=== PATIENT | male | born 1945 | race African-American/Black ===

== ENCOUNTER 2017-03-03 02:18 | Inpatient (IN) | payer MEDICARE, BC ==
--- NOTE | 2017-03-03 03:08 | CT ---
EXAM: CT Head Without Intravenous Contrast CLINICAL HISTORY: Reason: weakness TECHNIQUE: Axial computed tomography images of the head/brain without intravenous contrast. CTDI is 60.30 mGy and DLP is 1108.40 mGy-cm This CT exam was performed using one or more of the following dose reduction techniques: automated exposure control, adjustment of the mA and/or kV according to patient size, and/or use of iterative reconstruction technique. COMPARISON: No relevant prior studies available. FINDINGS: Brain: There is mild generalized atrophy along with periventricular white matter hypodensity most commonly seen on a chronic small vessel ischemic basis. Small chronic appearing lacunar changes in the external capsules. There is no identifiable acute or recent territorial infarct. No edema, midline shift, mass effect or intracranial hemorrhage. Ventricles: Unremarkable. No ventriculomegaly. 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 Smooth bony defect of the right lamina papyracea consistent with remote injury. No acute fracture.. Vasculature: Intracranial atherosclerosis is present. Sinuses: Diffuse griffin sinusitis, sparing the left sphenoid sinus. There are varying degrees of opacification throughout, including bilateral air-fluid levels, and with regions of higher density seen within the bilateral maxillary sinuses, perhaps on the basis of chronic inspissated secretions. Mastoid air cells: Unremarkable as visualized. No mastoid effusion. IMPRESSION: 1. No definite acute infarct is seen at this time. Note that early infarct may initially be inapparent by CT, and short-term follow-up imaging could be considered if concern or symptoms persist. 2. Diffuse griffin sinusitis.
--- NOTE | 2017-03-03 03:09 | ED ---
Neuro HPI - General Chief Complaint: Weakness Stated Complaint: weakness Time Seen by Provider: 03/03/17 02:31 Source: patient Mode of arrival: ambulatory Limitations: no limitations - History of Present Illness Is the patient presenting with stroke symptoms?: Yes Last Known Well Date: 03/02/17 Last Known Well Time: 13:00 -: hour(s) Initial Comments: This patient is a 71-year-old man presenting to the hospital to be evaluated for difficulty walking, and some right-sided weakness. The patient states he was in his usual state of health. He had been having coffee with friends at [facility] [employer] until 11 AM then went home. He states that about 1:00PM he tried to get out of his chair and noticed that he was not able to stand well. He was having weakness of the right leg and right arm. The patient then called his daughter and they felt he should be seen in the emergency department. Location: right arm, right leg History of same: No Place: home Severity: mild Quality: weak Improves With: none Worsens With: none On Anticoagulants: No Context: sudden onset Treatments Prior to Arrival: none - Related Data Home Medications: Home Medications Medication Instructions Recorded Confirmed Dexamethasone [Hexadrol] 0.5 mg PO DAILY 07/20/15 08/28/16 Metoprolol Succinate [Toprol XL] 50 mg PO DAILY 07/20/15 08/28/16 Mycophenolate Mofetil [Cellcept] 1,000 mg PO BID 07/20/15 08/28/16 Pravastatin Sodium [Pravachol] 20 mg PO HS 07/20/15 08/28/16 Tacrolimus [Prograf] 0.5 mg PO BID 07/20/15 08/28/16 Tamsulosin [Flomax] 0.4 mg PO HS 07/20/15 08/28/16 Ammonium Lactate Lotion 1 applic TOPICAL BID PRN 08/28/16 08/28/16 [Lac-Hydrin 12% Lotion] Mupirocin 2% Oint [Bactroban 2% 1 applic TOPICAL BID 08/28/16 08/28/16 Oint] Previous Rx's Medication Instructions Recorded Cephalexin [Keflex] 500 mg PO Q6HR #40 cap 08/28/16 Allergies/Adverse Reactions: Allergies Allergy/AdvReac Type Severity Reaction Status Date / Time No Known Allergies Allergy Verified 08/28/16 18:10 Review of Systems ROS Statement: Those systems with pertinent positive or pertinent negative responses have been documented in the HPI. ROS Other: All systems not noted in ROS Statement are negative. Constitutional: Denies: fever, chills Eyes: Denies: vision change ENT: Denies: hearing loss Respiratory: Denies: cough, dyspnea Cardiovascular: Denies: chest pain, palpitations, orthopnea, edema, syncope Gastrointestinal: Denies: abdominal pain, vomiting, diarrhea Genitourinary: Denies: dysuria, hematuria Musculoskeletal: Denies: back pain Skin: Denies: rash Neurological: Denies: headache, weakness, numbness Psychiatric: Denies: anxiety General Exam Limitations: no limitations General appearance: alert, in no apparent distress Head exam: Present: atraumatic, normocephalic Eye exam: Present: normal appearance. Absent: scleral icterus, conjunctival injection ENT exam: Present: normal oropharynx Neck exam: Present: normal inspection, full ROM Respiratory exam: Present: normal lung sounds bilaterally. Absent: respiratory distress, wheezes, rales, rhonchi, stridor Cardiovascular Exam: Present: regular rate, normal rhythm, normal heart sounds. Absent: systolic murmur, diastolic murmur, rubs, gallop GI/Abdominal exam: Present: soft. Absent: distended, tenderness, guarding, rebound, mass Extremities exam: Present: normal inspection, normal capillary refill. Absent: pedal edema, calf tenderness Back exam: Present: normal inspection. Absent: CVA tenderness (R), CVA tenderness (L) Neurological exam: Present: alert, oriented X3, motor sensory deficit. Absent: CN II-XII intact Expanded Neurological exam: Present: protecting the airway Patient oriented to: Present: person, place, time Speech: Present: fluid speech Cranial nerves: EOM's Intact: Normal, Facial Sensation: Normal, Facial Palsy with Forehead Movement: Normal Motor strength exam: RUE: 5, LUE: 5, RLE: 5, LLE: 5 Eye Response: (4) open spontaneously Motor Response: (6) obeys commands Verbal Response: (5) oriented Skin exam: Present: warm, dry, intact, normal color. Absent: rash, cyanosis, diaphoretic, erythema, petechiae, pallor, mottled Stroke MDM - Lab Data Result diagrams: 03/03/17 03:10 03/03/17 03:10 Lab Results 03/03/17 03/03/17 03/03/17 Range/Units 03:10 03:10 03:10 WBC 8.2 (3.8-10.6) k/uL RBC 4.70 (4.30-5.90) m/uL Hgb 12.9 L (13.0-17.5) gm/dL Hct 40.4 (39.0-53.0) % MCV 86.0 (80.0-100.0) fL MCH 27.5 (25.0-35.0) pg MCHC 32.0 (31.0-37.0) g/dL RDW 14.1 (11.5-15.5) % Plt Count 205 (150-450) k/uL Neutrophils % 81 % Lymphocytes % 10 % Monocytes % 5 % Eosinophils % 2 % Basophils % 0 % Neutrophils # 6.6 (1.3-7.7) k/uL Lymphocytes # 0.8 L (1.0-4.8) k/uL Monocytes # 0.4 (0-1.0) k/uL Eosinophils # 0.2 (0-0.7) k/uL Basophils # 0.0 (0-0.2) k/uL PT (9.0-12.0) sec INR (<1.1) APTT (22.0-30.0) sec Sodium 142 (137-145) mmol/L Potassium 3.6 (3.5-5.1) mmol/L Chloride 109 H (98-107) mmol/L Carbon Dioxide 21 L (22-30) mmol/L Anion Gap 12 mmol/L BUN 15 (9-20) mg/dL Creatinine 1.04 (0.66-1.25) mg/dL Est GFR (MDRD) Af Amer >60 (>60 ml/min/1.73 sqM) Est GFR (MDRD) Non-Af >60 (>60 ml/min/1.73 sqM) Glucose 94 (74-99) mg/dL POC Glucose (mg/dL) (75-99) mg/dL POC Glu Health Inspector ID Plasma Lactic Acid Angelo (0.7-2.0) mmol/L Calcium 8.8 (8.4-10.2) mg/dL Magnesium 1.6 (1.6-2.3) mg/dL Total Bilirubin 0.9 (0.2-1.3) mg/dL AST 16 L (17-59) U/L ALT 31 (21-72) U/L Alkaline Phosphatase 50 (38-126) U/L Total Creatine Kinase 39 L (55-170) U/L CK-MB (CK-2) 0.7 (0.0-2.4) ng/mL CK-MB (CK-2) Rel Index 1.8 Troponin I <0.012 (0.000-0.034) ng/mL Total Protein 6.2 L (6.3-8.2) g/dL Albumin 3.4 L (3.5-5.0) g/dL Urine Color Urine Appearance (Clear) Urine pH (5.0-8.0) Ur Specific [place] (1.001-1.035) Urine Protein (Negative) Urine Glucose (UA) (Negative) Urine Ketones (Negative) Urine Blood (Negative) Urine Nitrite (Negative) Urine Bilirubin (Negative) Urine Urobilinogen (<2.0) mg/dL Ur Leukocyte Esterase (Negative) 03/03/17 03/03/17 03/03/17 Range/Units 03:10 03:10 03:21 WBC (3.8-10.6) k/uL RBC (4.30-5.90) m/uL Hgb (13.0-17.5) gm/dL Hct (39.0-53.0) % MCV (80.0-100.0) fL MCH (25.0-35.0) pg MCHC (31.0-37.0) g/dL RDW (11.5-15.5) % Plt Count (150-450) k/uL Neutrophils % % Lymphocytes % % Monocytes % % Eosinophils % % Basophils % % Neutrophils # (1.3-7.7) k/uL Lymphocytes # (1.0-4.8) k/uL Monocytes # (0-1.0) k/uL Eosinophils # (0-0.7) k/uL Basophils # (0-0.2) k/uL PT 11.1 (9.0-12.0) sec INR 1.1 (<1.1) APTT 22.5 (22.0-30.0) sec Sodium (137-145) mmol/L Potassium (3.5-5.1) mmol/L Chloride (98-107) mmol/L Carbon Dioxide (22-30) mmol/L Anion Gap mmol/L BUN (9-20) mg/dL Creatinine (0.66-1.25) mg/dL Est GFR (MDRD) Af Amer (>60 ml/min/1.73 sqM) Est GFR (MDRD) Non-Af (>60 ml/min/1.73 sqM) Glucose (74-99) mg/dL POC Glucose (mg/dL) 97 (75-99) mg/dL POC Glu Health Inspector ID Karis Melo Plasma Lactic Acid Angelo 1.4 (0.7-2.0) mmol/L Calcium (8.4-10.2) mg/dL Magnesium (1.6-2.3) mg/dL Total Bilirubin (0.2-1.3) mg/dL AST (17-59) U/L ALT (21-72) U/L Alkaline Phosphatase (38-126) U/L Total Creatine Kinase (55-170) U/L CK-MB (CK-2) (0.0-2.4) ng/mL CK-MB (CK-2) Rel Index Troponin I (0.000-0.034) ng/mL Total Protein (6.3-8.2) g/dL Albumin (3.5-5.0) g/dL Urine Color Urine Appearance (Clear) Urine pH (5.0-8.0) Ur Specific [place] (1.001-1.035) Urine Protein (Negative) Urine Glucose (UA) (Negative) Urine Ketones (Negative) Urine Blood (Negative) Urine Nitrite (Negative) Urine Bilirubin (Negative) Urine Urobilinogen (<2.0) mg/dL Ur Leukocyte Esterase (Negative) 03/03/17 Range/Units 04:17 WBC (3.8-10.6) k/uL RBC (4.30-5.90) m/uL Hgb (13.0-17.5) gm/dL Hct (39.0-53.0) % MCV (80.0-100.0) fL MCH (25.0-35.0) pg MCHC (31.0-37.0) g/dL RDW (11.5-15.5) % Plt Count (150-450) k/uL Neutrophils % % Lymphocytes % % Monocytes % % Eosinophils % % Basophils % % Neutrophils # (1.3-7.7) k/uL Lymphocytes # (1.0-4.8) k/uL Monocytes # (0-1.0) k/uL Eosinophils # (0-0.7) k/uL Basophils # (0-0.2) k/uL PT (9.0-12.0) sec INR (<1.1) APTT (22.0-30.0) sec Sodium (137-145) mmol/L Potassium (3.5-5.1) mmol/L Chloride (98-107) mmol/L Carbon Dioxide (22-30) mmol/L Anion Gap mmol/L BUN (9-20) mg/dL Creatinine (0.66-1.25) mg/dL Est GFR (MDRD) Af Amer (>60 ml/min/1.73 sqM) Est GFR (MDRD) Non-Af (>60 ml/min/1.73 sqM) Glucose (74-99) mg/dL POC Glucose (mg/dL) (75-99) mg/dL POC Glu Health Inspector ID Plasma Lactic Acid Angelo (0.7-2.0) mmol/L Calcium (8.4-10.2) mg/dL Magnesium (1.6-2.3) mg/dL Total Bilirubin (0.2-1.3) mg/dL AST (17-59) U/L ALT (21-72) U/L Alkaline Phosphatase (38-126) U/L Total Creatine Kinase (55-170) U/L CK-MB (CK-2) (0.0-2.4) ng/mL CK-MB (CK-2) Rel Index Troponin I (0.000-0.034) ng/mL Total Protein (6.3-8.2) g/dL Albumin (3.5-5.0) g/dL Urine Color Light Yellow Urine Appearance Clear (Clear) Urine pH 5.5 (5.0-8.0) Ur Specific [place] 1.005 (1.001-1.035) Urine Protein Negative (Negative) Urine Glucose (UA) Negative (Negative) Urine Ketones Negative (Negative) Urine Blood Negative (Negative) Urine Nitrite Negative (Negative) Urine Bilirubin Negative (Negative) Urine Urobilinogen <2.0 (<2.0) mg/dL Ur Leukocyte Esterase Negative (Negative) - EKG Data -: EKG Interpreted by Me EKG shows normal: sinus rhythm (With PVC, rate 76 bpm), axis (Left axis deviation), intervals (AZ interval 174 ms, QRS duration 118 ms, QTc 474 ms), QRS complexes (Nonspecific conduction delay) Interpretation: nonspecific ST-T wave changes, other (Prolonged QT) Past Medical History Past Medical History: Hyperlipidemia, Hypertension, Thyroid Disorder History of Any Multi-Drug Resistant Organisms: None Reported Additional Past Surgical History / Comment(s): liver transplant Past Psychological History: No Psychological Hx Reported Smoking Status: Never smoker Past Alcohol Use History: None Reported Past Drug Use History: None Reported Course Vital Signs 03/03/17 03/03/17 03/03/17 02:20 03:15 03:30 Temperature 98.1 F Pulse Rate 77 68 70 Respiratory 16 18 18 Rate Blood Pressure 142/67 128/66 137/80 O2 Sat by Pulse 97 97 98 Oximetry 03/03/17 04:45 Temperature Pulse Rate 69 Respiratory 18 Rate Blood Pressure 142/65 O2 Sat by Pulse 98 Oximetry Disposition Clinical Impression: Acute ischemic stroke Disposition: ADMITTED IP TO THIS HOSP Condition: Fair Referrals: Ron Edwards DO [Primary Care Provider] - 1-2 days
--- NOTE | 2017-03-03 03:11 | XR ---
EXAM: XR Chest, 1 View CLINICAL HISTORY: Reason: weakness TECHNIQUE: Frontal view of the chest. COMPARISON: No relevant prior studies available. FINDINGS: The patient is rotated towards the right. Lungs: The lungs are free of focal infiltrate. There appears to be a small granuloma in the periphery of the right midlung field. Pleural space: No pleural effusion or pneumothorax. Heart: Borderline cardiomegaly. Mediastinum: Mild aortic ectasia. Bones/joints: Multilevel degenerative changes. Subtle contour deformity involving one or more of left-sided ribs including the second and eighth ribs suggests old healed fractures. Upper abdomen: Mild left diaphragmatic elevation or eventration. IMPRESSION: No definite acute process seen within the chest, as above.
[2017-03-03 03:22] LABS: Glucose,Whole Blood 97 mg/dL (75-99)
[2017-03-03 03:43] LABS: Basophils % (A) 0 %; CHCM 32.8; Eosinophils # (A) 0.2 k/uL (0-0.7); Eosinophils % (A) 2 %; HCT 40.4 % (39.0-53.0); HGB 12.9 gm/dL (13.0-17.5); Luc # (Auto) 0.13; Luc % (Auto) 2; Lymphocytes # (A) 0.8 k/uL (1.0-4.8); Lymphocytes % (A) 10 %; MCH 27.5 pg (25.0-35.0); Mean Platelet Volume 6.7; Monocytes # (A) 0.4 k/uL (0-1.0); Monocytes % (A) 5 %; Neutrophils # (A) 6.6 k/uL (1.3-7.7); Neutrophils % (A) 81 %; RDW 14.1 % (11.5-15.5); WBC 8.2 k/uL (3.8-10.6); WBC (Perox) 8.49
[2017-03-03 03:52] LABS: INR 1.1 (<1.1); Partial Thromboplastin Time 22.5 sec (22.0-30.0); Prothrombin Time 11.1 sec (9.0-12.0)
[2017-03-03 03:53] LABS: Glucose 94 mg/dL (74-99)
[2017-03-03 03:54] LABS: ALT 31 U/L (21-72); AST 16 U/L (17-59); Alkaline Phosphatase 50 U/L (38-126); Anion Gap 12 mmol/L; Blood Urea Nitrogen 15 mg/dL (9-20); Calcium 8.8 mg/dL (8.4-10.2); Carbon Dioxide 21 mmol/L (22-30); Chloride 109 mmol/L (98-107); Magnesium 1.6 mg/dL (1.6-2.3); Non-African American GFR(MDRD) >60 (>60 ml/min/1.73 sqM); Potassium 3.6 mmol/L (3.5-5.1); Sodium 142 mmol/L (137-145); Total Bilirubin 0.9 mg/dL (0.2-1.3); Total Protein 6.2 g/dL (6.3-8.2)
[2017-03-03 04:12] LABS: Creatine Kinase 39 U/L (55-170)
[2017-03-03 04:25] LABS: Appearance,Urine Clear (Clear); Bilirubin,Urine Negative (Negative); Glucose,Urine (UA) Negative (Negative); Ketones,Urine Negative (Negative); Leukocyte Esterase,Urine Negative (Negative); Nitrite,Urine Negative (Negative); PH, Urine 5.5 (5.0-8.0); Protein,Urine Negative (Negative); Specific Gravity,Urine 1.005 (1.001-1.035); UA Billing (MACRO vs. MICRO) CHEM; Urobilinogen,Urine <2.0 mg/dL (<2.0)
[2017-03-03 04:26] LABS: Creatine Kinase MB 0.7 ng/mL (0.0-2.4); Troponin I <0.012 ng/mL (0.000-0.034)
[2017-03-03] MEDS ORDERED: AMMONIUM LACTATE 12% LOTION 225 GM BTL TOPICAL PRN (06:38)
[2017-03-03] MEDS: DOCUSATE 100 MG CAP PO SCH ×3 (07:54→21:43)
[2017-03-03] MEDS: SODIUM CHLORIDE 0.9% 1,000 ML IV SCH (08:00)
--- NOTE | 2017-03-03 08:54 | US ---
EXAMINATION TYPE: US carotid duplex BILAT DATE OF EXAM: 03/03/2017 7:42 AM COMPARISON: US CLINICAL HISTORY: Stenosis. patient states he was unable to get up from his chair. EXAM MEASUREMENTS: RIGHT: Peak Systolic Velocity (PSV) cm/sec ----- Right CCA: 93.3 ----- Right ICA: 93.3 ----- Right ECA: 97.7 ICA/CCA ratio: 1.0 RIGHT: End Diastole cm/sec ----- Right CCA: 26.3 ----- Right ICA: 28.5 ----- Right ECA: 9.8 LEFT: Peak Systolic Velocity (PSV) cm/sec ----- Left CCA: 74.9 ----- Left ICA: 79.0 ----- Left ECA: 83.4 ICA/CCA ratio: 1.1 LEFT: End Diastole cm/sec ----- Left CCA: 18.0 ----- Left ICA: 27.4 ----- Left ECA: 7.6 VERTEBRALS (direction of flow): Right Vertebral: Antegrade Left Vertebral: Antegrade No elevated velocities, no significant stenosis identified, mild bilateral plaque. IMPRESSION: No hemodynamically significant stenosis bilaterally. Minimal bilateral atherosclerosis.
[2017-03-03] MEDS: MUPIROCIN 2% OINT 22 GM TUBE TOPICAL SCH ×3 (09:53→21:43)
[2017-03-03] MEDS: MYCOPHENOLATE MOFETIL 500 MG TAB PO SCH ×2 (09:54→21:36)
[2017-03-03] MEDS: TAMSULOSIN 0.4 MG CAP.ER.24H PO SCH (09:54)
[2017-03-03] MEDS: FAMOTIDINE 20 MG TAB PO SCH ×2 (09:54→21:36)
[2017-03-03] MEDS: TACROLIMUS 0.5 MG CAP PO SCH ×2 (09:55→21:36)
[2017-03-03] MEDS: DEXAMETHASONE 0.5 MG TAB PO SCH (10:08)
[2017-03-03] MEDS: METOPROLOL SUCCINATE (ER) 50 MG TAB.ER.24H PO SCH (10:08)
[2017-03-03] MEDS ORDERED: MECLIZINE 25 MG TAB PO STA (11:02)
[2017-03-03] MEDS ORDERED: DIAZEPAM 5 MG/ML 2 ML SYRINGE IVP STA (11:02)
--- NOTE | 2017-03-03 11:33 | ECHOF ---
Referral Reason:Thrombus MEASUREMENTS -------- HEIGHT: 175.3 cm WEIGHT: 90.7 kg BP: 144/4 IVSd: 1.2 cm (0.6 - 1.1) LVIDd: 4.5 cm (3.9 - 5.3) LVPWd: 1.0 cm (0.6 - 1.1) IVSs: 1.3 cm LVIDs: 2.8 cm LVPWs: 1.2 cm LA Diam: 3.7 cm (2.7 - 3.8) LAESV Index (A-L): 21.68 ml/m Ao Diam: 3.6 cm (2.0 - 3.7) AV Cusp: 1.6 cm (1.5 - 2.6) LA Diam: 3.0 cm (2.7 - 3.8) MV EXCURSION: 12.842 mm (> 18.000) MV EF SLOPE: 77 mm/s (70 - 150) EPSS: 0.6 cm MV E Viktor: 0.59 m/s MV DecT: 268 ms MV A Viktor: 0.74 m/s MV E/A Ratio: 0.79 RAP: 5.00 mmHg RVSP: 11.59 mmHg FINDINGS -------- Sinus rhythm. This was a technically adequate study. There is borderline concentric left ventricular hypertrophy. Overall left ventricular systolic function is normal with, an EF between 55 - 60 %. The right ventricle is normal in size. The left atrial size is normal. The right atrial size is normal. The aortic valve is trileaflet, and appears structurally normal. No aortic stenosis or regurgitation. Mild mitral annular calcification present. Mild mitral regurgitation is present. Mild tricuspid regurgitation present. There is no evidence of pulmonary hypertension. The right ventricular systolic pressure, as measured by Doppler, is 11.59mmHg. There is no pulmonic regurgitation present. The aortic root size is normal. There is no pericardial effusion. CONCLUSIONS -------- 1. There is borderline concentric left ventricular hypertrophy. 2. Overall left ventricular systolic function is normal with, an EF between 55 - 60 %. 3. Mild mitral annular calcification present. 4. Mild mitral regurgitation is present. 5. Mild tricuspid regurgitation present. 6. There is no evidence of pulmonary hypertension. 7. The right ventricular systolic pressure, as measured by Doppler, is 11.59mmHg. 8. There is no pulmonic regurgitation present. BOX SPINNER: Kalyani Rodriguez RDCS
--- NOTE | 2017-03-03 11:51 | XR ---
EXAMINATION TYPE: XR chest 2V DATE OF EXAM: 03/03/2017 11:31 AM HISTORY: Right-sided weakness. REFERENCE: Previous study dated 03/03/2017. FINDINGS: There is some scarring or atelectasis at the left lung base. There is a partial eventration of the left hemidiaphragm. The right lung is clear. Pleural spaces are clear. There is unfolding of the thoracic aorta. Heart size is normal. IMPRESSION: SCARRING VERSUS ATELECTASIS, LEFT LUNG BASE.
--- NOTE | 2017-03-03 11:51 | CT ---
EXAMINATION TYPE: CT brain wo con DATE OF EXAM: 03/03/2017 11:34 AM COMPARISON: 03/03/2017 at 2:52 AM. HISTORY: Rt sided weakness CT DLP: 1121 mGycm. Automated Exposure Control for Dose Reduction was Utilized. TECHNIQUE: CT scan of the head is performed without contrast. FINDINGS: 5 mm hypodense area is seen within the genu of the left internal capsule at its inferior m argin and is better appreciated on this examination than on the prior earlier the same day. This is t hought to represent acute to subacute lacunar infarct. There is no acute intracranial hemorrhage or midline shift shift identified. The ventricles and sulc i are within normal limits in size. The globes are intact. There is redemonstration of complete opac ification of the maxillary sinuses, moderate mucosal thickening of the ethmoid sinuses, and very mild mucosal thickening in the frontal and sphenoid sinuses. Mastoid air cells are well aerated. Atherosc lerosis is seen of the intracranial vasculature. IMPRESSION: 1. 5 mm focal hypodense area within the genu of the left internal capsule better appreciated on this examination than the prior earlier the same day and therefore likely relates to an acute to subacute lacunar infarct. 2. Redemonstration of pansinusitis. 3. No evidence of intracranial hemorrhage.
[2017-03-03] MEDS: MAGNESIUM SULFATE-D5W PMX 1 GM in DEXTROSE/WATER 1 100ML.BAG IVPB SCH ×2 (12:03→13:32)
--- NOTE | 2017-03-03 15:19 | P.HPIM ---
History of Present Illness H&P Date: 03/03/17 Chief Complaint: Right-sided weakness and upper extremities and lower extremity facial droop This Is a pleasant 71-year-old gentleman patient of Dr. Edwards. He has underlying history of hyperlipidemia, hypertension, liver transplant, CK D stage II, admitted to emergency room secondary to right-sided weakness. He was fine until 1 PM when he tried getting out of his chair, patient was having difficulties in standing up, it was also noted that his right upper extremity was weak and later on his speech was altered accompanied by right facial droop, but patient mentioned that this goes away and it gets worse whenever the patient walks, he had for 5 episodes of this over the past one day until his ER admission for further evaluation and cannot be very specific as to the timing and length off changes noted In the emergency room he was evaluated CT brain failed to reveal any acute changes, EKG shows nonspecific ST-T wave changes and prolonged QT, normal sinus rhythm heart rate 76,echocardiogram showed ejection fraction of 55-60%, no aortic stenosis, right ventricular systolic pressure 11, mild MR and mild TR, borderline concentric LVH carotid Doppler shows no hemodynamically significant stenosis bilaterally with minimal bilateral atherosclerosis, repeat CT shows 5 mm focal hypodense area within that she know of the left internal capsule likely related to an acute or subacute lacunar infarct, there is redemonstration of pansinusitis. Patient was placed on aspirin 325 mg daily patient from the ER , he was on 81 mg aspirin prior and consults were made with neurology dr tobin On my physical examination today, noted. No upper extremity weakness noted, no lower extremity weakness noted speech slight dysarthria/expressive aphasia is minimally impaired however balance is slightly impaired Review of Systems Constitutional: Reports as per HPI, Denies anorexia, Denies chills, Denies chronic headaches, Denies chronic pain, Denies daytime sleepiness, Denies fatigue, Denies fever, Denies lethargy, Denies malaise, Denies night sweats, Denies poor appetite, Denies sweats, Denies weakness, Denies weight gain, Denies weight loss Ears, nose, mouth and throat: Reports as per HPI, Denies ant. neck pain, Denies bleeding gums, Denies dental pain, Denies dysphagia, Denies epistaxis, Denies headache, Denies hoarseness, Denies mouth pain, Denies nasal congestion, Denies nasal discharge, Denies neck fullness/pressure, Denies neck lump, Denies nose pain, Denies odynophagia, Denies post-nasal drip, Denies sinus pain, Denies sinus pressure, Denies swelling in mouth, Denies swelling in throat, Denies sore throat, Denies vertigo, Denies voice changes Past Medical History Past Medical History: GERD/Reflux, Hyperlipidemia, Hypertension, Liver Disease, Prostate Disorder, Renal Disease, Syncope, Thyroid Disorder Additional Past Medical History / Comment(s): 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 History of Any Multi-Drug Resistant Organisms: None Reported Additional Past Surgical History / Comment(s): 1999 liver transplant, 2003 liver transplant, 2007 plate in jaw, bilateral cataract removal with lens, colonoscopy. Past Anesthesia/Blood Transfusion Reactions: No Reported Reaction Additional Past Anesthesia/Blood Transfusion Reaction / Comment(s): Pt received blood in past without reaction. Past Psychological History: No Psychological Hx Reported Additional Psychological History / Comment(s): Pt has an adult mina who lives with him. Daughter has mental health problems. 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 He drives. He uses no assistive device. Smoking Status: Never smoker Past Alcohol Use History: None Reported Past Drug Use History: None Reported - Past Family History Father Family Medical History: No Reported History Additional Family Medical History / Comment(s): Father was healthy. He around the age of 83 yrs. Mother Family Medical History: Myocardial Infarction (SD) Additional Family Medical History / Comment(s): Mother of a SD at the age of 83 yrs. Medications and Allergies Home Medications Medication Instructions Recorded Confirmed Type Dexamethasone [Hexadrol] 0.5 mg PO DAILY 07/20/15 03/03/17 History Metoprolol Succinate [Toprol XL] 50 mg PO DAILY 07/20/15 03/03/17 History Mycophenolate Mofetil [Cellcept] 1,000 mg PO BID 07/20/15 03/03/17 History Tacrolimus [Prograf] 0.5 mg PO BID 07/20/15 03/03/17 History Tamsulosin [Flomax] 0.4 mg PO HS 07/20/15 03/03/17 History Aspirin 81 mg PO DAILY 03/03/17 03/03/17 History Cholecalciferol [Vitamin D3] 400 unit PO DAILY 03/03/17 03/03/17 History Levothyroxine Sodium [Synthroid] 25 mcg PO DAILY 03/03/17 03/03/17 History Pravastatin Sodium [Pravachol] 10 mg PO HS 03/03/17 03/03/17 History Vitamin B Complex 1 cap PO DAILY 03/03/17 03/03/17 History Allergies Allergy/AdvReac Type Severity Reaction Status Date / Time No Known Allergies Allergy Verified 03/03/17 07:36 Physical Exam Vitals: Vital Signs Temp Pulse Pulse Resp BP BP Pulse Ox 03/03/17 13:35 98.5 F 88 18 132/70 98 03/03/17 10:46 98.2 F 82 18 139/64 99 03/03/17 09:35 84 18 159/76 99 03/03/17 08:35 70 18 132/65 98 03/03/17 07:35 98 F 70 18 142/65 98 Intake and Output 03/02/17 03/03/17 03/03/17 22:59 06:59 14:59 Intake Total 640 Output Total 250 Balance 390 Intake: Intake, IV Titration 200 Amount Magnesium Sulfate-D5w Pmx 200 1 gm In Dextrose/Water 1 100ml.bag @ 100 mls/hr IVPB Q1H [facility] Rx#: [id number] Oral 440 Output: Urine 250 Other: # Voids 1 Results CBC & Chem 7: 03/03/17 03:10 03/03/17 03:10 Labs: Abnormal Lab Results - Last 24 Hours (Table) 03/03/17 Range/Units 08:07 Ammonia 40 H (<30) umol/L Thrombosis Risk Factor Assmnt - Choose All That Apply Any of the Below Risk Factors Present?: Yes Each Factor Represents 1 point: Obesity (BMI >25) Other Risk Factors: Yes Each Risk Factor Represents 2 Points: Age 61-74 years Other congenital or acquired thrombophilia - If yes, enter type in comment: No Each Risk Factor Represents 5 Points: Stroke (< 1 month) Thrombosis Risk Factor Assessment Total Risk Factor Score: 8 Thrombosis Risk Factor Assessment Level: High Risk Assessment and Plan Plan: 1. Expressive aphasia with right-sided hemiparesis, consistent with ischemic stroke, lacunar infarct noted on repeat CT, patient was seen by Dr. Tobin neurology, speech therapy occupational therapy, monitor for progression of CVA, there is no dysphagia noted, patient is on aspirin 325 mg daily and added Plavix 75 mg daily. Carotid Dopplers failed to reveal any carotid stenosis, MRI of the brain with MRA was requested, echocardiogram, a he might need a ABBY to evaluate for cryptogenic stroke, no prior evidence of atrial fibrillation in the past history mother patient might need further cardiac monitoring including a loop recorder 2. Liver transplantation historyl on CellCept, Prograf, dexamethasone daily 3. Hypertension on metoprolol 50 mg daily, 4. Hyperlipidemia, was at 10 mg daily we'll going to increase this to 40 mg daily BPH without any lower tract symptomatology on Flomax 0.4 Hypothyroidism on levothyroxine 25 g daily Prophylaxis and DVT prophylaxis Pansinusitis Tronic without any acute symptoms, started on Flonase not the bike needed
[2017-03-03] MEDS: CLOPIDOGREL 75 MG TAB PO SCH (16:21)
--- NOTE | 2017-03-03 17:00 | P.CNNES ---
History of Present Illness Consult date: 03/03/17 Reason for Consult: Patient being evaluated for right-sided weakness and possible stroke. History of Present Illness: This patient is a 71-year-old right-handed -Algerian male who apparently yesterday had returned home after having breakfast with several friends. When he got home he was sitting in the chair and tried to get up to go to the kitchen. Apparently he could not move due to severe weakness on his right side. He sat for several minutes and then attempted to stand again. This time he was able to get up and walk but appeared to have some heaviness on his right leg. His symptoms seem to wax and wane throughout the day. He finally mention this to his daughter who suggested he should go to the emergency room. He was seen in the ER by Dr. Ambrocio who ordered a computed tomography scan of the brain. This CAT scan was done at 2 AM early this morning. Results indicated no definite acute infarction was noted. A repeat computed tomography scan of the brain was done later this morning at about 11 AM which revealed a 5 mm focal hypodensity area in the left internal capsule. This was suggesting possibility of acute to subacute lacunar infarction. Patient states that since admission to the hospital he is noted improvement with his right arm strength and leg strength. He does have a history of having had a liver transplant and is on several antirejection medications. Apparently he continues to do well in terms of his liver function. Patient was subsequently admitted to the hospital. He underwent a carotid Doppler ultrasound which failed to reveal any significant carotid artery stenosis. He was started on one aspirin 325 mg daily for secondary stroke prevention. Patient states he was never told to take any aspirin previously. He denies any previous history of TIA or stroke. Patient has no previous history of atrial fibrillation. The patient did also notice some difficulty with his speech yesterday which is improved today. He has no other risk factors for stroke and denies any history of smoking, alcohol use, or hyper cholesterolemia. He does mention that he takes a statin drug. He is currently on pravastatin 10 mg daily. Overall the patient seems to be doing better since admission to the hospital. Neurology is now been consulted for further evaluation and recommendations. Review of Systems Constitutional: Denies chills, Denies fever Eyes: denies blurred vision, denies pain Ears, nose, mouth and throat: Denies headache, Denies sore throat Cardiovascular: Denies chest pain, Denies shortness of breath Respiratory: Denies cough Gastrointestinal: Denies abdominal pain, Denies diarrhea, Denies nausea, Denies vomiting Musculoskeletal: Denies myalgias Integumentary: Denies pruritus, Denies rash Neurological: Reports change in speech, Reports transient paralysis, Denies numbness, Denies weakness Psychiatric: Denies anxiety, Denies depression Endocrine: Denies fatigue, Denies weight change Past Medical History Past Medical History: GERD/Reflux, Hyperlipidemia, Hypertension, Liver Disease, Prostate Disorder, Renal Disease, Syncope, Thyroid Disorder Additional Past Medical History / Comment(s): 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 History of Any Multi-Drug Resistant Organisms: None Reported Additional Past Surgical History / Comment(s): 1999 liver transplant, 2003 liver transplant, 2007 plate in jaw, bilateral cataract removal with lens, colonoscopy. Past Anesthesia/Blood Transfusion Reactions: No Reported Reaction Additional Past Anesthesia/Blood Transfusion Reaction / Comment(s): Pt received blood in past without reaction. Past Psychological History: No Psychological Hx Reported Additional Psychological History / Comment(s): Pt has an adult mina who lives with him. Daughter has mental health problems. 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 He drives. He uses no assistive device. Smoking Status: Never smoker Past Alcohol Use History: None Reported Past Drug Use History: None Reported - Past Family History Father Family Medical History: No Reported History Additional Family Medical History / Comment(s): Father was healthy. He around the age of 83 yrs. Mother Family Medical History: Myocardial Infarction (MT) Additional Family Medical History / Comment(s): Mother of a MT at the age of 83 yrs. Medications and Allergies Home Medications Medication Instructions Recorded Confirmed Type Dexamethasone [Hexadrol] 0.5 mg PO DAILY 07/20/15 03/03/17 History Metoprolol Succinate [Toprol XL] 50 mg PO DAILY 07/20/15 03/03/17 History Mycophenolate Mofetil [Cellcept] 1,000 mg PO BID 07/20/15 03/03/17 History Tacrolimus [Prograf] 0.5 mg PO BID 07/20/15 03/03/17 History Tamsulosin [Flomax] 0.4 mg PO HS 07/20/15 03/03/17 History Aspirin 81 mg PO DAILY 03/03/17 03/03/17 History Cholecalciferol [Vitamin D3] 400 unit PO DAILY 03/03/17 03/03/17 History Levothyroxine Sodium [Synthroid] 25 mcg PO DAILY 03/03/17 03/03/17 History Pravastatin Sodium [Pravachol] 10 mg PO HS 03/03/17 03/03/17 History Vitamin B Complex 1 cap PO DAILY 03/03/17 03/03/17 History Allergies Allergy/AdvReac Type Severity Reaction Status Date / Time No Known Allergies Allergy Verified 03/03/17 07:36 Physical Examination - Vital Signs Vital Signs: Vital Signs Temp Pulse Pulse Resp BP BP Pulse Ox 03/03/17 13:35 98.5 F 88 18 132/70 98 03/03/17 10:46 98.2 F 82 18 139/64 99 03/03/17 09:35 84 18 159/76 99 03/03/17 08:35 70 18 132/65 98 03/03/17 07:35 98 F 70 18 142/65 98 Intake and Output 03/03/17 03/03/17 03/03/17 06:59 14:59 22:59 Intake Total 640 Output Total 250 Balance 390 Intake: Intake, IV Titration 200 Amount Magnesium Sulfate-D5w Pmx 200 1 gm In Dextrose/Water 1 100ml.bag @ 100 mls/hr IVPB Q1H [facility] Rx#: [id number] Oral 440 Output: Urine 250 Other: # Voids 1 - Constitutional General appearance: average body habitus, cooperative - EENT EENT: PERRL, mucous membranes moist - Respiratory Respiratory: lungs clear, normal breath sounds - Cardiovascular Cardiovascular: regular rate, normal S1, normal S2 Extremities: no peripheral edema bilaterally - Gastrointestinal Gastrointestinal: normoactive bowel sounds - Integumentary Integumentary: normal - Neurologic Cranial nerve examination: PERRL, EOMI, VFF, V1/V2/V3 grossly intact, face symmetric, tongue midline, intact gag reflex, intact corneal reflex, normal palatal elevation Speech examination: intact Sensorimotor examination: intact Detailed motor examination: grossly full strength in all extremities Motor examination - right side: 5/5: biceps, triceps, wrist flexion, wrist extension, 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 stock supervisor, hip flexors, knee extensors, dorsiflexion, toe extension (EHL) , plantarflexion Motor examination - left side: 5/5: biceps, triceps, wrist flexion, wrist extension, 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 stock supervisor, hip flexors, knee extensors, dorsiflexion, toe extension (EHL) , plantarflexion Detailed sensory examination: intact Reflex and gait examination: intact Reflexes: 1+: ankle, bicep, knee, tricep - Musculoskeletal Musculoskeletal: no pain - Psychiatric Psychiatric: mood/affect appropriate, cooperative Results - Laboratory Findings CBC and BMP: 03/03/17 03:10 03/03/17 03:10 Abnormal Lab Findings: Abnormal Labs 03/03/17 08:07 Ammonia 40 H Assessment and Plan (1) Left acute arterial ischemic stroke, MCA (middle cerebral artery) Status: Acute Code(s): I63.512 - CEREB INFRC D/T UNSP OCCLS OR STENOS OF LEFT MID CEREB ART (2) History of liver transplant Status: Acute Code(s): Z94.4 - LIVER TRANSPLANT STATUS (3) Hypertension Status: Acute Code(s): I10 - ESSENTIAL (PRIMARY) HYPERTENSION (4) Hyperlipidemia Status: Acute Code(s): E78.5 - HYPERLIPIDEMIA, UNSPECIFIED Plan: This patient is a pleasant 71-year-old -Algerian male who was admitted to hospital with sudden onset of tight sided weakness and some difficulty with speech yesterday. He underwent an initial computed tomography scan of the brain at 2 AM in the morning which was negative for any acute changes. Repeat CAT scan done at 11 AM this morning reveals a possible acute versus subacute lacunar infarct in the left internal capsule. Patient has been admitted for a full stroke evaluation. He has no significant stroke risk factors other than hypertension and hyperlipidemia. We are recommending MRI of the brain for further evaluation. His carotid Doppler ultrasound was negative for any significant carotid artery stenosis. Would recommend cardiology consultation for possibility of cryptogenic stroke and possible cardiac monitoring with a loop recorder. Would recommend to continue the patient on dual platelet therapy including aspirin plus Plavix. We'll await further recommendations from cardiology. Case was discussed at length today with the patient. All questions were answered. He is aware of our current diagnosis and treatment plans. His overall prognosis at this time remains guarded. Time with Patient: Greater than 30
[2017-03-03] MEDS ORDERED: PRAVASTATIN SODIUM 20 MG TAB PO SCH (21:00)
--- NOTE | 2017-03-03 21:22 | MR ---
MRI brain with and without contrast HISTORY: Cerebrovascular accident, right-sided weakness and slurred speech Multiplanar multisequence and postcontrast images through the brain following 18 cc MultiHance IV There is no restricted diffusion. The corpus callosum, pituitary, cervical medullary junction are nor mal. There is mild cortical atrophy. Scattered hyperintensities within the periventricular white daljit er on inversion recovery and T2-weighted sequences are noted, approximately 10-15 lesions. There is n o abnormal enhancement following contrast administration. Cerebellopontine angles are normal. The orb its show a symmetric appearance. Extensive inflammatory change noted within the bilateral maxillary s inuses. There are normal vascular flow voids, normal enhancement following contrast administration wi thin the cerebral vasculature. Ethmoid air cells also show inflammatory change, mucosal change in the sphenoid sinus, frontal sinus. IMPRESSION: Probable age-related atrophy and chronic small vessel ischemic change. Extensive sinus di sease.
[2017-03-03] MEDS: PRAVASTATIN SODIUM 40 MG TAB PO SCH (21:36)
--- NOTE | 2017-03-03 22:16 | MR ---
EXAMINATION TYPE: MR angio head wo con DATE OF EXAM: 03/03/2017 7:59 PM COMPARISON: MR brain same date HISTORY: Rt sided weakness, face, leg and arm, slurred speech TECHNIQUE: Time of flight images focusing on the [place] were performed without contrast. FINDINGS: Vertebrobasilar system, internal carotid arteries are patent. There is no evident aneurysm or vascular malformation. Questionable stenosis present within the M1 segment of the internal carotid artery on the left. There is some motion on the exam however. IMPRESSION: There is some motion. Difficult to exclude some stenosis of the M1 segment of the internal carotid ar mary on the left, contrast enhanced MRA could be performed for additional evaluation.
[2017-03-04] MEDS: LEVOTHYROXINE 25 MCG TAB PO SCH (05:57)
[2017-03-04 06:15] LABS: Basophils % (A) 0 %; CH 27.9; Eosinophils # (A) 0.3 k/uL (0-0.7); Eosinophils % (A) 4 %; HDW 3.33; HGB 13.3 gm/dL (13.0-17.5); Luc % (Auto) 3; Lymphocytes % (A) 14 %; MCH 28.3 pg (25.0-35.0); MCHC 33.3 g/dL (31.0-37.0); Mean Platelet Volume 6.7; Monocytes # (A) 0.5 k/uL (0-1.0); Monocytes % (A) 7 %; Neutrophils # (A) 5.3 k/uL (1.3-7.7); Neutrophils % (A) 73 %; RBC 4.71 m/uL (4.30-5.90); RDW 13.8 % (11.5-15.5); WBC 7.2 k/uL (3.8-10.6); WBC (Perox) 7.05
[2017-03-04 06:23] LABS: INR 1.1 (<1.1); Partial Thromboplastin Time 22.7 sec (22.0-30.0); Prothrombin Time 10.8 sec (9.0-12.0)
[2017-03-04 06:32] LABS: ALT 26 U/L (21-72); AST 14 U/L (17-59); Alkaline Phosphatase 48 U/L (38-126); Anion Gap 8 mmol/L; Blood Urea Nitrogen 14 mg/dL (9-20); Calcium 8.7 mg/dL (8.4-10.2); Carbon Dioxide 26 mmol/L (22-30); Chloride 107 mmol/L (98-107); Cholesterol 141 mg/dL (<200); Glucose 82 mg/dL (74-99); HDL Cholesterol 28 mg/dL (40-60); Magnesium 1.6 mg/dL (1.6-2.3); Non-African American GFR(MDRD) >60 (>60 ml/min/1.73 sqM); Potassium 3.7 mmol/L (3.5-5.1); Sodium 141 mmol/L (137-145); Total Bilirubin 0.7 mg/dL (0.2-1.3); Total Protein 5.6 g/dL (6.3-8.2); Triglycerides 104 mg/dL (<150)
[2017-03-04] MEDS: DOCUSATE 100 MG CAP PO SCH ×3 (08:03→21:43)
[2017-03-04] MEDS: MUPIROCIN 2% OINT 22 GM TUBE TOPICAL SCH ×2 (09:26→20:30)
[2017-03-04] MEDS: ASPIRIN 325 MG TAB PO SCH (09:26)
[2017-03-04] MEDS: TACROLIMUS 0.5 MG CAP PO SCH ×2 (09:26→20:28)
[2017-03-04] MEDS: FAMOTIDINE 20 MG TAB PO SCH ×2 (09:27→20:27)
[2017-03-04] MEDS: METOPROLOL SUCCINATE (ER) 50 MG TAB.ER.24H PO SCH (09:27)
[2017-03-04] MEDS: CLOPIDOGREL 75 MG TAB PO SCH (09:27)
[2017-03-04] MEDS: MYCOPHENOLATE MOFETIL 500 MG TAB PO SCH ×2 (09:27→20:27)
[2017-03-04] MEDS: DEXAMETHASONE 0.5 MG TAB PO SCH (09:27)
[2017-03-04] MEDS: CHOLECALCIFEROL 400 UNIT TAB PO SCH (09:28)
--- NOTE | 2017-03-04 10:13 | P.PN ---
Subjective This Is a pleasant 71-year-old gentleman patient of Dr. Edwards. He has underlying history of hyperlipidemia, hypertension, liver transplant, CK D stage II, admitted to emergency room secondary to right-sided weakness. He was fine until 1 PM when he tried getting out of his chair, patient was having difficulties in standing up, it was also noted that his right upper extremity was weak and later on his speech was altered accompanied by right facial droop, but patient mentioned that this goes away and it gets worse whenever the patient walks, he had for 5 episodes of this over the past one day until his ER admission for further evaluation and cannot be very specific as to the timing and length off changes noted In the emergency room he was evaluated CT brain failed to reveal any acute changes, EKG shows nonspecific ST-T wave changes and prolonged QT, normal sinus rhythm heart rate 76,echocardiogram showed ejection fraction of 55-60%, no aortic stenosis, right ventricular systolic pressure 11, mild MR and mild TR, borderline concentric LVH carotid Doppler shows no hemodynamically significant stenosis bilaterally with minimal bilateral atherosclerosis, repeat CT shows 5 mm focal hypodense area within that she know of the left internal capsule likely related to an acute or subacute lacunar infarct, there is redemonstration of pansinusitis. Patient was placed on aspirin 325 mg daily patient from the ER , he was on 81 mg aspirin prior and consults were made with neurology dr tobin On my physical examination today, noted. No upper extremity weakness noted, no lower extremity weakness noted speech slight dysarthria/expressive aphasia is minimally impaired however balance is slightly impaired 5/6: Patient states that he went for MRI last evening and he was unable to speak and he needed help getting out of the chair. By the time he was done with the MRI he was able to walk and talk like normal. He has been seen in consultation by Dr. 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 Echocardiogram reveals EF of 55-60% with borderline concentric left ventricular hypertrophy, mild mitral regurgitation, mild tricuspid regurgitation, no pulmonary hypertension. MRI of the brain showed probable age related atrophy and chronic small vessel ischemic change. Extensive sinus disease. MRA of the head reveals some motion, difficult to exclude some stenosis of the M1 segment of the internal carotid artery on the left. Consult with Dr. Walsh added. Objective - Vital Signs Vital signs: Vital Signs Temp 98.1 F 03/04/17 08:00 Pulse 75 03/04/17 08:00 Resp 18 03/04/17 08:00 BP 127/65 03/04/17 08:00 Pulse Ox 97 03/04/17 08:00 Intake & Output 03/03/17 03/04/17 03/04/17 18:59 06:59 18:59 Intake Total 876 580 240 Output Total 250 325 Balance 626 255 240 Weight 91.3 kg Intake: Intake, IV Titration 200 580 Amount Magnesium Sulfate-D5w Pmx 200 1 gm In Dextrose/Water 1 100ml.bag @ 100 mls/hr IVPB Q1H [facility] Rx#: [id number] Sodium Chloride 0.9% 1, 580 000 ml @ 20 mls/hr IV . Q24H [facility] Rx#:[id number] Oral 676 240 Output: Urine 250 325 Other: # Voids 1 1 - Exam Gen: This is a 81-year-old -[place] male. He is seen walking from the bathroom to his bed and gait is steady. He appears to be in no acute distress. HEENT: Head is atraumatic, normocephalic. Pupils equal, round. Sclerae is anicteric. NECK: Supple. No JVD. No lymphadenopathy. No thyromegaly. LUNGS: Clear to auscultation. No wheezes or rhonchi. No intercostal retractions. HEART: Regular rate and rhythm. No murmur. ABDOMEN: Soft. Bowel sounds are present. No masses. No tenderness. EXTREMITIES: No pedal edema. No calf tenderness. NEUROLOGICAL: Patient is awake, alert and oriented x3. Cranial nerves 2 through 12 are grossly intact. Possibly slight droop in the left eye but otherwise strength are equal in upper and lower extremities 5/5. - Labs CBC & Chem 7: 03/04/17 05:30 03/04/17 05:30 Labs: Abnormal Lab Results - Last 24 Hours (Table) 03/04/17 Range/Units 05:30 AST 14 L (17-59) U/L Total Protein 5.6 L (6.3-8.2) g/dL Albumin 3.0 L (3.5-5.0) g/dL HDL Cholesterol 28 L (40-60) mg/dL Assessment and Plan Plan: 1. Expressive aphasia with right-sided hemiparesis, consistent with ischemic stroke, lacunar infarct noted on repeat CT, patient was seen by Dr. Tobin neurology, speech therapy occupational therapy, monitor for progression of CVA, there is no dysphagia noted, patient is on aspirin 325 mg daily and added Plavix 75 mg daily. Brain MRA and possible carotid stenosis and consult with added, radiology consult added to evaluate for cryptogenic stroke, no prior evidence of atrial fibrillation in the past history mother patient might need further cardiac monitoring including a loop recorder 2. Liver transplantation historyl on CellCept, Prograf, dexamethasone daily 3. Hypertension on metoprolol 50 mg daily, 4. Hyperlipidemia, was at 10 mg daily we'll going to increase this to 40 mg daily BPH without any lower tract symptomatology on Flomax 0.4 Hypothyroidism on levothyroxine 25 g daily Prophylaxis and DVT prophylaxis Pansinusitis chronic Impression and plan of care have been directed as dictated by the signing physician. Coty Anthony nurse practitioner acting as scribe for signing physician. Time with Patient: Greater than 30
[2017-03-04] MEDS: SODIUM CHLORIDE 0.9% 1,000 ML IV SCH (10:45)
[2017-03-04] MEDS ORDERED: RX INFO: IV CONTRAST WAS GIVEN 1 EACH MISC MISCELLANE PRN ×2 (12:36→12:37)
--- NOTE | 2017-03-04 12:36 | P.GSCN ---
History of Present Illness Consult date: 03/04/17 Reason for Consult: carotid stenosis (M1 segment), left hemispheric motor TIA Requesting physician: Micah Schaeffer History of present illness: impression; 1. recurrent left hemispheric motor TIA (expressive aphasia, right arm and leg motor weakness) 2. <50% stenosis of the cervical carotid arteries bilaterally with possible stenosis of the intracranial M1 segment of the left carotid artery 3. long-standing history of immunosuppression; currently on tacrolimus 4. No evidence of valvular heart disease on current echocardiogram; no history of arrythmias plan; 1. CTA of carotids and head to further evaluate great vessels and intracranial arteries 2. continue current medical regimen HPI: 71 y/o man with a history of slurred speech and right sided weakness at 1300 on 03/02/2017 that resolved after. Was seen in the emergency room and underwent carotid duplex and CT head at that time that failed to demonstrated carotid stenosis or acute hemispheric changes on CT. Underwent MRI of brain yesterday afternoon and at that time had another episode of slurred speech and right sided weakness in the MRI room. This resolved after MRI was completed. Denies a history of CVA, DM, nicotine dependence. Mother of heart attack at 83; father in his 80s as well. 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 Has been on tacrolimus for years. Followed at the [facility] for his liver transplant; last seen one year ago with appointment next month. CMHx, PMHx, PSHx; reviewed PE; WDWN male in NAD, BP = 130/68, 65, 96% on RA HEENT: normocephalic, anicteric sclera, no JVD or bruits, trachea is midline, no thyromegaly or lymphadenopathy Lungs; clear bilaterally Heart; RRR, normal S1 and S2 ABD; soft, non-tender, no palpable pulsatile organomegaly or bruits, well- healed Chevron incision without hernia EXTR; femoral, popliteal, dorsalis pedis and posterior tibial pulses are palpable bilaterally, no edema NEURO; cranial nerves 2-12 intact with no focal motor or sensory deficits at this time Carotid duplex from 03/03/2017 reviewed by me; demonstrates <50% carotid stenosis bilaterally with antegrade flow in both vertebrals MRI of the brain and intracranial circulation; demonstrates evidence of small vessel occlusive with no acute infarct; possible M1 segment stenosis on the left Echocardiogram demonstrates structurally normal aortic valve; mild mitral and tricuspid regurgitation noted impression/plan Patient with recurrent left hemispheric symptoms that are motor in nature. Cervical carotid arteries have very mild athero-occlusive disease without evidence of thrombus or ulceration noted on imaging. MR of the intracranial circulation and M1 segments done without contrast; thoracic carotid artery on the left and arch not evaluated; will order CTA of neck and head to evaluate these segments. Suspect that these exams will be low-yield. Await EEG results. May be secondary to long-term tacrolimus use. Continue current medical regiment including ASA/Clopidogrel/Statin. Following. Thank you for this interesting consult! 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 History of Any Multi-Drug Resistant Organisms: None Reported Additional Past Surgical History / Comment(s): 1999 liver transplant, 2003 liver transplant, 2007 plate in jaw, bilateral cataract removal with lens, colonoscopy. Past Anesthesia/Blood Transfusion Reactions: No Reported Reaction Additional Past Anesthesia/Blood Transfusion Reaction / Comm: Pt received blood in past without reaction. Past Psychological History: No Psychological Hx Reported Additional Psychological History / Comment(s): Pt has an adult mina who lives with him. Daughter has mental health problems. 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 He drives. He uses no assistive device. Smoking Status: Never smoker Past Alcohol Use History: None Reported Past Drug Use History: None Reported - Past Family History Father Family Medical History: No Reported History Additional Family Medical History / Comment(s): Father was healthy. He around the age of 83 yrs. Mother Family Medical History: Myocardial Infarction ([place]) Additional Family Medical History / Comment(s): Mother of a [place] at the age of 83 yrs. Medications and Allergies Home Medications Medication Instructions Recorded Confirmed Type Dexamethasone [Hexadrol] 0.5 mg PO DAILY 07/20/15 03/03/17 History Metoprolol Succinate [Toprol XL] 50 mg PO DAILY 07/20/15 03/03/17 History Mycophenolate Mofetil [Cellcept] 1,000 mg PO BID 07/20/15 03/03/17 History Tacrolimus [Prograf] 0.5 mg PO BID 07/20/15 03/03/17 History Tamsulosin [Flomax] 0.4 mg PO HS 07/20/15 03/03/17 History Aspirin 81 mg PO DAILY 03/03/17 03/03/17 History Cholecalciferol [Vitamin D3] 400 unit PO DAILY 03/03/17 03/03/17 History Levothyroxine Sodium [Synthroid] 25 mcg PO DAILY 03/03/17 03/03/17 History Pravastatin Sodium [Pravachol] 10 mg PO HS 03/03/17 03/03/17 History Vitamin B Complex 1 cap PO DAILY 03/03/17 03/03/17 History Allergies Allergy/AdvReac Type Severity Reaction Status Date / Time No Known Allergies Allergy Verified 03/03/17 07:36 Surgical - Exam Vital Signs Temp Pulse Resp BP Pulse Ox 98.1 F 77 16 142/67 97 03/03/17 02:20 03/03/17 02:20 03/03/17 02:20 03/03/17 02:20 03/03/17 02:20 Results - Labs 03/04/17 05:30 03/04/17 05:30 Abnormal Lab Results - Last 24 Hours (Table) 03/04/17 Range/Units 05:30 AST 14 L (17-59) U/L Total Protein 5.6 L (6.3-8.2) g/dL Albumin 3.0 L (3.5-5.0) g/dL HDL Cholesterol 28 L (40-60) mg/dL Diabetes panel 03/04/17 Range/Units 05:30 Sodium 141 (137-145) mmol/L Potassium 3.7 (3.5-5.1) mmol/L Chloride 107 (98-107) mmol/L Carbon Dioxide 26 (22-30) mmol/L BUN 14 (9-20) mg/dL Creatinine 1.01 (0.66-1.25) mg/dL Glucose 82 (74-99) mg/dL Calcium 8.7 (8.4-10.2) mg/dL AST 14 L (17-59) U/L ALT 26 (21-72) U/L Alkaline Phosphatase 48 (38-126) U/L Total Protein 5.6 L (6.3-8.2) g/dL Albumin 3.0 L (3.5-5.0) g/dL Triglycerides 104 (<150) mg/dL HDL Cholesterol 28 L (40-60) mg/dL Thyroid panel 03/04/17 Range/Units 05:30 TSH 2.120 (0.465-4.680) mIU/L Calcium panel 03/04/17 Range/Units 05:30 Calcium 8.7 (8.4-10.2) mg/dL Albumin 3.0 L (3.5-5.0) g/dL Pituitary panel 03/04/17 Range/Units 05:30 Sodium 141 (137-145) mmol/L Potassium 3.7 (3.5-5.1) mmol/L Chloride 107 (98-107) mmol/L Carbon Dioxide 26 (22-30) mmol/L BUN 14 (9-20) mg/dL Creatinine 1.01 (0.66-1.25) mg/dL Glucose 82 (74-99) mg/dL Calcium 8.7 (8.4-10.2) mg/dL TSH 2.120 (0.465-4.680) mIU/L Adrenal panel 03/04/17 Range/Units 05:30 Sodium 141 (137-145) mmol/L Potassium 3.7 (3.5-5.1) mmol/L Chloride 107 (98-107) mmol/L Carbon Dioxide 26 (22-30) mmol/L BUN 14 (9-20) mg/dL Creatinine 1.01 (0.66-1.25) mg/dL Glucose 82 (74-99) mg/dL Calcium 8.7 (8.4-10.2) mg/dL Total Bilirubin 0.7 (0.2-1.3) mg/dL AST 14 L (17-59) U/L ALT 26 (21-72) U/L Alkaline Phosphatase 48 (38-126) U/L Total Protein 5.6 L (6.3-8.2) g/dL Albumin 3.0 L (3.5-5.0) g/dL
[2017-03-04 13:40] LABS: Hemoglobin A1C 5.6 % (4.2-6.1)
[2017-03-04 13:46] VITALS: RESP 18
[2017-03-04] MEDS: TAMSULOSIN 0.4 MG CAP.ER.24H PO SCH (20:28)
[2017-03-04] MEDS: PRAVASTATIN SODIUM 40 MG TAB PO SCH (20:28)
--- NOTE | 2017-03-04 21:06 | CT ---
EXAMINATION TYPE: CT angio head neck DATE OF EXAM: 03/04/2017 5:36 PM COMPARISON: NONE HISTORY: weakness CT DLP: 377.9 mGycm Automated exposure control for dose reduction was used. TECHNIQUE: Performed with IV Contrast, patient injected with 65 mL of Omnipaque 350. Three-D reconstructed images performed separately on the [employer] computer by the technologist are revi ewed.. FINDINGS: [place]: Vertebral arteries appear normal. Basilar artery is unremarkable. Posterior cerebra l vasculature is normal. Internal carotid arteries bifurcate normally into A1 and M1 segments. The an terior communicating artery is not identified. Middle cerebral artery branches are normal. A2 segment s are normal. Right posterior communicating artery is patent. Left posterior communicating artery is not clearly identified. Bilateral carotid arteries: There is a three-vessel arch. Carotid bifurcations appear unremarkable ap pears somewhat low lying at the level of the hyoid. 2-D reconstructed images suggest some mild plaqui ng at the left internal carotid artery origin without stenosis. There is opacification of the bilateral maxillary sinuses. Mucosal thickening is within ethmoid air c ells. Frontal sinuses and sphenoid sinuses appear clear. Degenerative changes are through the cervica l spine. Some foraminal narrowing from uncovertebral joint hypertrophy is present. Thyroid as visuali zed appears normal. Punctate density may be at the posterior lateral right apex measuring 0.3 cm. Oth erwise, lung apices within the [id number] are clear. IMPRESSION: 1. MINIMAL ATHEROMATOUS PLAQUING OF THE LEFT INTERNAL CAROTID ARTERY ORIGIN WITHOUT SIGNIFICANT FLOW- LIMITING STENOSIS. 2. NORMAL [place].
[2017-03-05] MEDS: LEVOTHYROXINE 25 MCG TAB PO SCH (06:02)
[2017-03-05] MEDS: SODIUM CHLORIDE 0.9% 1,000 ML IV SCH (06:04)
[2017-03-05 07:28] LABS: Basophils % (A) 1 %; CHCM 32.2; Eosinophils # (A) 0.2 k/uL (0-0.7); Eosinophils % (A) 3 %; HCT 42.5 % (39.0-53.0); HDW 3.11; HGB 13.1 gm/dL (13.0-17.5); Hypochromasia Slight; Luc # (Auto) 0.24; Luc % (Auto) 4; Lymphocytes % (A) 16 %; MCHC 30.9 g/dL (31.0-37.0); MCV 87.4 fL (80.0-100.0); Mean Platelet Volume 6.6; Monocytes # (A) 0.4 k/uL (0-1.0); Monocytes % (A) 6 %; Neutrophils # (A) 4.6 k/uL (1.3-7.7); Neutrophils % (A) 71 %; RBC 4.86 m/uL (4.30-5.90); WBC 6.6 k/uL (3.8-10.6); WBC (Perox) 7.05
[2017-03-05 07:42] LABS: ALT 29 U/L (21-72); AST 16 U/L (17-59); Alkaline Phosphatase 51 U/L (38-126); Anion Gap 9 mmol/L; Blood Urea Nitrogen 12 mg/dL (9-20); Calcium 8.8 mg/dL (8.4-10.2); Carbon Dioxide 25 mmol/L (22-30); Chloride 107 mmol/L (98-107); Glucose 79 mg/dL (74-99); Non-African American GFR(MDRD) >60 (>60 ml/min/1.73 sqM); Potassium 3.4 mmol/L (3.5-5.1); Sodium 141 mmol/L (137-145); Total Bilirubin 0.9 mg/dL (0.2-1.3); Total Protein 5.5 g/dL (6.3-8.2)
[2017-03-05] MEDS: DOCUSATE 100 MG CAP PO SCH (08:32)
[2017-03-05] MEDS: ASPIRIN 325 MG TAB PO SCH (08:35)
[2017-03-05] MEDS: FAMOTIDINE 20 MG TAB PO SCH (08:35)
[2017-03-05] MEDS: MYCOPHENOLATE MOFETIL 500 MG TAB PO SCH (08:35)
[2017-03-05] MEDS: CHOLECALCIFEROL 400 UNIT TAB PO SCH (08:35)
[2017-03-05] MEDS: MUPIROCIN 2% OINT 22 GM TUBE TOPICAL SCH (08:35)
[2017-03-05] MEDS: TACROLIMUS 0.5 MG CAP PO SCH (08:35)
[2017-03-05] MEDS: METOPROLOL SUCCINATE (ER) 50 MG TAB.ER.24H PO SCH (08:35)
[2017-03-05] MEDS: CLOPIDOGREL 75 MG TAB PO SCH (08:35)
[2017-03-05] MEDS: DEXAMETHASONE 0.5 MG TAB PO SCH (08:35)
--- NOTE | 2017-03-05 08:42 | P.PN ---
Progress Note - Text CTA demonstrates no evidence of left common carotid artery occlusive disease; the [place] is WNL Continue further medical management No vascular surgery intervention at this time
[2017-03-05 09:52] VITALS: BP 138/63; PULSE 100; TEMP 98.4
--- NOTE | 2017-03-05 12:10 | P.PN ---
Subjective This patient is a 71-year-old right-handed -[place] male who was admitted to Hospital with symptoms of right-sided weakness and possible TIA versus stroke. Patient has underlying history of hyperlipidemia, liver transplantation, hypertension, and renal disease. He presented initially with symptoms of right sided weakness and mild facial droop with expressive aphasia. Symptoms had resolved when he was admitted to the hospital. He was recommended to undergo further neuroimaging to rule out stroke. He had MRI of the brain done on 03/03/2017 which revealed age-related atrophy and chronic small vessel ischemic changes. No evidence of acute stroke. MRA revealed evidence of some stenosis in the M1 segment of the internal carotid artery on the left. Vascular surgery was consulted and his CTA angiogram was completed. This was reviewed by vascular surgery today and there is no further vascular surgery intervention needed. Patient also underwent routine EEG. EEG was reviewed today and is negative for any evidence of seizure focus. He is to continue with all of his current medications including combination of Plavix and aspirin. He is being considered for discharge home later today. We reviewed the results of all of his neurological testing once again in detail with the patient. He may continue on current treatment plans and schedule a follow-up in the outpatient neurology clinic in 3-4 weeks. Objective - Vital Signs Vital signs: Vital Signs Temp 98.4 F 03/05/17 09:00 Pulse 100 03/05/17 09:00 Resp 18 03/05/17 09:00 BP 138/63 03/05/17 09:00 Pulse Ox 97 03/05/17 09:00 Intake & Output 03/04/17 03/05/17 03/05/17 18:59 06:59 18:59 Intake Total 1410 240 600 Output Total 850 1450 Balance 560 -1210 600 Weight 91 kg Intake: Intake, IV Titration 120 240 Amount Sodium Chloride 0.9% 1, 120 240 000 ml @ 20 mls/hr IV . Q24H [facility] Rx#:[id number] Oral 1290 600 Tube Feeding 0 Blood Product 0 Output: Urine 850 1450 Other: Voiding Method Toilet Toilet Urinal Urinal # Voids 1 1 - Exam Physical examination: PHYSICAL EXAMINATION: Patient is resting comfortably in bed. VITAL SIGNS: Blood pressure is [138/63]. Heart rate is [98]. Respiration is [18] . Temperature is [98.4]. HEENT: Head is atraumatic, neck is supple, there were no carotid bruits. CHEST: Lungs are clear to auscultation and percussion. CARDIAC: S1, S2 normal rate and rhythm. There is no murmur. ABDOMEN: Soft and nontender. Bowel sounds are present. EXTREMITIES: There is no pedal edema. Peripheral pulses are present. Neurological examination: Patient has a nonfocal neurological examination. - Labs CBC & Chem 7: 03/05/17 06:44 03/05/17 06:44 Labs: Abnormal Lab Results - Last 24 Hours (Table) 03/05/17 03/05/17 Range/Units 06:44 06:44 MCHC 30.9 L (31.0-37.0) g/dL Potassium 3.4 L (3.5-5.1) mmol/L AST 16 L (17-59) U/L Total Protein 5.5 L (6.3-8.2) g/dL Albumin 3.0 L (3.5-5.0) g/dL Assessment and Plan (1) Left acute arterial ischemic stroke, MCA (middle cerebral artery) Status: Acute Code(s): I63.512 - CEREB INFRC D/T UNSP OCCLS OR STENOS OF LEFT MID CEREB ART (2) History of liver transplant Status: Acute Code(s): Z94.4 - LIVER TRANSPLANT STATUS (3) Hypertension Status: Acute Code(s): I10 - ESSENTIAL (PRIMARY) HYPERTENSION (4) Hyperlipidemia Status: Acute Code(s): E78.5 - HYPERLIPIDEMIA, UNSPECIFIED Plan: This patient is a 71-year-old male who was admitted to Hospital with symptoms of acute right-sided weakness and some slurred speech. He had symptoms suggesting possibility of TIA versus stroke. He was admitted to the hospital and CAT scan of the brain revealed a focal hypodensity in the left internal capsule. He was sent for MRI of the brain which failed to reveal any evidence of acute stroke. MRA revealed possible stenosis involving the M1 segment of the left internal carotid artery. Vascular surgery was consulted for further evaluation. He underwent a CTA angiogram which failed to reveal any significant carotid artery occlusive disease. The patient also underwent a routine EEG which is reviewed and is slow with no evidence of any epileptic seizure focus. We have reviewed all of his test results once again with the patient in detail. Would recommend he continue on a combination of aspirin and Plavix for secondary stroke prevention. He should follow-up with his primary care physician in one week. We did recommend further follow-up in the outpatient neurology clinic in 3-4 weeks. His overall prognosis at this time remains guarded. Patient is being considered for discharge home today.
--- NOTE | 2017-03-05 14:15 | EEG ---
DATE OF SERVICE: 03/04/[address] Aguirre. Interpreting physician: Dr. Cary Gonzalez INDICATIONS FOR EXAMINATION: This patient is a 71-year-old male being evaluated for acute left hemispheric stroke. AGE: 71Y EEG FINDINGS: A routine 21-channel, awake digital EEG recording was accomplished utilizing the 10 to 20 international system with bipolar and referential montages. The background activity in the most alert resting state consists of a low to medium amplitude, fairly well-developed and well sustained 6 Hz activity over the posterior head regions. This posterior rhythm attenuates to eye opening. There is a small amount of low amplitude 18 to 20 Hz beta activity seen maximally over the anterior head regions. Muscle and movement artifact was observed on a few occasions during the tracing. Hyperventilation was not performed. Photic stimulation at flash frequencies of 2 to 30 Hz produced a minimal occipital driving response. No epileptiform discharges were seen. IMPRESSION: This EEG is moderately abnormal in diffuse fashion due to slowing of the EEG background. The EEG failed to reveal any focal, lateralized or epileptiform abnormalities. Clinical correlation is recommended.
--- NOTE | 2017-03-05 14:16 | P.CRDCN ---
History of Present Illness Consult date: 03/05/17 History of present illness: This is a pleasant 71-year-old -[place] gentleman with a past medical history significant for hypertension, dyslipidemia, and chronic kidney disease, who presented to the emergency room with right sided weakness. The patient was in his usual state of health until yesterday afternoon when he was sitting an attempted to stand up at suddenly felt right sided weakness. The weakness was associated with slurred speech. He did not have any visual disturbance. No syncope. The patient underwent a computed tomography scan of the brain which failed to show any acute changes. The EKG showed sinus mechanism with nonspecific changes only. The patient has been maintaining normal sinus mechanism. The echocardiogram showed normal LV function without any significant valvular abnormalities. The patient underwent carotid duplex study as well as CTA of the neck and did not demonstrate any severe carotid disease. Currently the patient is on dual antiplatelet therapy. He is going to be discharged home. I would consider doing a ABBY as an outpatient to rule out any cardiac source of embolization. 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 History of Any Multi-Drug Resistant Organisms: None Reported Additional Past Surgical History / Comment(s): 1999 liver transplant, 2003 liver transplant, 2007 plate in jaw, bilateral cataract removal with lens, colonoscopy. Past Anesthesia/Blood Transfusion Reactions: No Reported Reaction Additional Past Anesthesia/Blood Transfusion Reaction / Comment(s): Pt received blood in past without reaction. Past Psychological History: No Psychological Hx Reported Additional Psychological History / Comment(s): Pt has an adult mina who lives with him. Daughter has mental health problems. 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 He drives. He uses no assistive device. Smoking Status: Never smoker Past Alcohol Use History: None Reported Past Drug Use History: None Reported - Past Family History Father Family Medical History: No Reported History Additional Family Medical History / Comment(s): Father was healthy. He around the age of 83 yrs. Mother Family Medical History: Myocardial Infarction ([place]) Additional Family Medical History / Comment(s): Mother of a [place] at the age of 83 yrs. Medications and Allergies Home Medications Medication Instructions Recorded Confirmed Type Dexamethasone [Hexadrol] 0.5 mg PO DAILY 07/20/15 03/03/17 History Metoprolol Succinate [Toprol XL] 50 mg PO DAILY 07/20/15 03/03/17 History Mycophenolate Mofetil [Cellcept] 1,000 mg PO BID 07/20/15 03/03/17 History Tacrolimus [Prograf] 0.5 mg PO BID 07/20/15 03/03/17 History Tamsulosin [Flomax] 0.4 mg PO HS 07/20/15 03/03/17 History Aspirin 81 mg PO DAILY 03/03/17 03/03/17 History Cholecalciferol [Vitamin D3] 400 unit PO DAILY 03/03/17 03/03/17 History Levothyroxine Sodium [Synthroid] 25 mcg PO DAILY 03/03/17 03/03/17 History Pravastatin Sodium [Pravachol] 10 mg PO HS 03/03/17 03/03/17 History Vitamin B Complex 1 cap PO DAILY 03/03/17 03/03/17 History Allergies Allergy/AdvReac Type Severity Reaction Status Date / Time No Known Allergies Allergy Verified 03/03/17 07:36 Physical Exam Vitals: Vital Signs Temp Pulse Pulse Resp BP BP Pulse Ox 03/05/17 12:00 100 18 03/05/17 09:00 98.4 F 100 18 138/63 97 03/05/17 08:00 98.6 F 95 18 145/69 98 03/05/17 04:00 97.9 F 78 18 108/56 98 03/05/17 00:00 98.5 F 89 18 118/61 97 03/04/17 20:00 97.5 F L 76 18 127/73 96 03/04/17 17:00 97.9 F 68 18 140/72 95 03/04/17 16:00 97.9 F 68 68 18 140/72 96 Intake and Output 03/04/17 03/05/17 03/05/17 22:59 06:59 14:59 Intake Total 600 240 840 Output Total 500 1250 Balance 100 -1010 840 Intake: Intake, IV Titration 240 Amount Sodium Chloride 0.9% 1, 240 000 ml @ 20 mls/hr IV . Q24H [facility] Rx#:[id number] Oral 600 840 Output: Urine 500 1250 Other: Voiding Method Toilet Toilet Toilet Urinal Urinal Urinal # Voids 1 Weight 91 kg - Constitutional General appearance: no acute distress - Respiratory Respiratory: bilateral: CTA - Cardiovascular Rhythm: regular Heart sounds: normal: S1, S2 Results 03/05/17 06:44 03/05/17 06:44 Cardiac Enzymes 03/05/17 Range/Units 06:44 AST 16 L (17-59) U/L CBC 03/05/17 Range/Units 06:44 WBC 6.6 (3.8-10.6) k/uL RBC 4.86 (4.30-5.90) m/uL Hgb 13.1 (13.0-17.5) gm/dL Hct 42.5 (39.0-53.0) % Plt Count 200 (150-450) k/uL Comprehensive Metabolic Panel 03/05/17 Range/Units 06:44 Sodium 141 (137-145) mmol/L Potassium 3.4 L (3.5-5.1) mmol/L Chloride 107 (98-107) mmol/L Carbon Dioxide 25 (22-30) mmol/L BUN 12 (9-20) mg/dL Creatinine 1.10 (0.66-1.25) mg/dL Glucose 79 (74-99) mg/dL Calcium 8.8 (8.4-10.2) mg/dL AST 16 L (17-59) U/L ALT 29 (21-72) U/L Alkaline Phosphatase 51 (38-126) U/L Total Protein 5.5 L (6.3-8.2) g/dL Albumin 3.0 L (3.5-5.0) g/dL Current Medications Generic Name Dose Route Start Last Admin Trade Name Freq PRN Reason Stop Dose Admin Aspirin 325 mg 03/04/17 09:00 03/05/17 08:35 Aspirin PO 325 mg DAILY [facility] Administration Cholecalciferol 400 unit 03/04/17 09:00 03/05/17 08:35 Vitamin D3 PO 400 unit DAILY [facility] Administration Clopidogrel Bisulfate 75 mg 03/03/17 15:15 03/05/17 08:35 Plavix PO 75 mg DAILY [facility] Administration Dexamethasone 0.5 mg 03/03/17 09:00 03/05/17 08:35 Hexadrol PO 0.5 mg DAILY [facility] Administration Docusate Sodium 100 mg 03/03/17 08:00 03/05/17 08:32 Colace PO Not Given Q8HR [facility] Famotidine 20 mg 03/03/17 09:00 03/05/17 08:35 Pepcid PO 20 mg BID [facility]ARA Administration Sodium Chloride 1,000 mls @ 20 mls/hr 03/03/17 06:45 03/05/17 06:04 Saline 0.9% IV 20 mls/hr .Q24H [facility] Administration Lactic Acid 1 applic 03/03/17 06:38 Lac-Hydrin 12% TOPICAL BID PRN Dry Skin Levothyroxine Sodium 25 mcg 03/04/17 06:00 03/05/17 06:02 Synthroid PO 25 mcg 0600 [facility] Administration Metoprolol Succinate 50 mg 03/03/17 09:00 03/05/17 08:35 Toprol Xl PO 50 mg DAILY [facility] Administration Miscellaneous Information 1 each 03/04/17 12:36 Rx Info: Iv Contrast Was Given MISCELLANE 03/06/17 12:37 DAILY PRN Per Protocol Miscellaneous Information 1 each 03/04/17 12:37 Rx Info: Iv Contrast Was Given MISCELLANE 03/06/17 12:38 DAILY PRN Per Protocol Mupirocin 1 applic 03/03/17 09:45 03/05/17 08:35 Bactroban Oint TOPICAL 1 applic BID [facility]ARA Administration Mycophenolate Mofetil 1,000 mg 03/03/17 09:00 03/05/17 08:35 Cellcept PO 1,000 mg BID [facility] Administration Pravastatin Sodium 40 mg 03/03/17 21:00 03/04/17 20:28 Pravachol PO 40 mg HS [facility]ARA Administration Tacrolimus 0.5 mg 03/03/17 09:00 03/05/17 08:35 Prograf PO 0.5 mg BID [facility]ARA Administration Tamsulosin HCl 0.4 mg 03/03/17 21:00 03/04/17 20:28 Flomax PO 0.4 mg HS [facility]ARA Administration Intake and Output 03/04/17 03/05/17 03/05/17 22:59 06:59 14:59 Intake Total 600 240 840 Output Total 500 1250 Balance 100 -1010 840 Intake: Intake, IV Titration 240 Amount Sodium Chloride 0.9% 1, 240 000 ml @ 20 mls/hr IV . Q24H [facility] Rx#:[id number] Oral 600 840 Output: Urine 500 1250 Other: Voiding Method Toilet Toilet Toilet Urinal Urinal Urinal # Voids 1 Weight 91 kg 03/05/17 06:44 03/05/17 06:44 Assessment and Plan Plan: Assessment #1 an episode of TIA #2 hypertension #3 dyslipidemia Plan #1 ABBY to be done as an outpatient #2 continue the dual antiplatelet therapy.
--- NOTE | 2017-03-07 14:52 | P.DS ---
Providers Date of admission: 03/03/17 06:39 Expected date of discharge: 03/05/17 Attending physician: Nakita Aguirre Consults: 03/04/17 08:37 Consult Physician Routine Consulting Provider: Iona Walsh Consult Reason/Comments: possible carotid artery dz left on MRA Do you want consulting provider notified?: Yes 03/04/17 10:10 Consult Physician Routine Consulting Provider: Clark Hooper Consult Reason/Comments: Rule out cryptogenic stroke Do you want consulting provider notified?: Yes Primary care physician: [facility] Course: This Is a pleasant 71-year-old gentleman patient of Dr. Edwards. He has underlying history of hyperlipidemia, hypertension, liver transplant, CK D stage II, admitted to emergency room secondary to right-sided weakness. He was fine until 1 PM when he tried getting out of his chair, patient was having difficulties in standing up, it was also noted that his right upper extremity was weak and later on his speech was altered accompanied by right facial droop, but patient mentioned that this goes away and it gets worse whenever the patient walks, he had for 5 episodes of this over the past one day until his ER admission for further evaluation and cannot be very specific as to the timing and length off changes noted In the emergency room he was evaluated CT brain failed to reveal any acute changes, EKG shows nonspecific ST-T wave changes and prolonged QT, normal sinus rhythm heart rate 76,echocardiogram showed ejection fraction of 55-60%, no aortic stenosis, right ventricular systolic pressure 11, mild MR and mild TR, borderline concentric LVH carotid Doppler shows no hemodynamically significant stenosis bilaterally with minimal bilateral atherosclerosis, repeat CT shows 5 mm focal hypodense area within that she know of the left internal capsule likely related to an acute or subacute lacunar infarct, there is redemonstration of pansinusitis. Patient was placed on aspirin 325 mg daily patient from the ER , he was on 81 mg aspirin prior and consults were made with neurology dr tobin On my physical examination today, noted. No upper extremity weakness noted, no lower extremity weakness noted speech slight dysarthria/expressive aphasia is minimally impaired however balance is slightly impaired 5/6: Patient states that he went for MRI last evening and he was unable to speak and he needed help getting out of the chair. By the time he was done with the MRI he was able to walk and talk like normal. He has been seen in consultation by Dr. Tobin with recommendations to continue aspirin and Plavix and cardiology consult for possible cryptogenic stroke and possible ekg monitor tech with loop recorder. Echocardiogram reveals EF of 55-60% with borderline concentric left ventricular hypertrophy, mild mitral regurgitation, mild tricuspid regurgitation, no pulmonary hypertension. MRI of the brain showed probable age related atrophy and chronic small vessel ischemic change. Extensive sinus disease. MRA of the head reveals some motion, difficult to exclude some stenosis of the M1 segment of the internal carotid artery on the left. Consult with Dr. Walsh added. 03/05: Dr. Walsh has evaluated the patient and CTA of the head and neck was done revealing minimal atheromatosis plaquing of the left internal carotid artery origin with no significant flow-limiting stenosis. Normal round [place]. Patient was reassessed by Dr. Bala coto. EEG showed no evidence of epileptic seizure focus. Recommended continuing aspirin and Plavix and follow-up with them in 3-4 weeks. He has been seen by Dr. Hooper and consider doing a ABBY as an outpatient to rule out cardiac source of embolization. Patient will be discharged home today in stable condition. Discharge diagnoses: 1. Expressive aphasia with right-sided hemiparesis, consistent with left acute arterial ischemic stroke, MCA, seizure activity not completely ruled out possibly due to Prograf. Patient instructed to follow-up with his transplant team to discuss. 2. Liver transplantation history 3. Hypertension 4. Hyperlipidemia 5. BPH 6. Hypothyroidism 7. Pansinusitis chronic Impression and plan of care have been directed as dictated by the signing physician. Coty Anthony nurse practitioner acting as scribe for signing physician. Cc: Dr. Ron Edwards Patient Condition at Discharge: Good Plan - Discharge Summary New Discharge Prescriptions: Clopidogrel [Plavix] 75 mg PO DAILY #30 tab Discharge Medication List Dexamethasone [Hexadrol] 0.5 mg PO DAILY 07/20/15 [History] Metoprolol Succinate [Toprol XL] 50 mg PO DAILY 07/20/15 [History] Mycophenolate Mofetil [Cellcept] 1,000 mg PO BID 07/20/15 [History] Tacrolimus [Prograf] 0.5 mg PO BID 07/20/15 [History] Tamsulosin [Flomax] 0.4 mg PO HS 07/20/15 [History] Aspirin 81 mg PO DAILY 03/03/17 [History] Cholecalciferol [Vitamin D3] 400 unit PO DAILY 03/03/17 [History] Levothyroxine Sodium [Synthroid] 25 mcg PO DAILY 03/03/17 [History] Pravastatin Sodium [Pravachol] 10 mg PO HS 03/03/17 [History] Vitamin B Complex 1 cap PO DAILY 03/03/17 [History] Clopidogrel [Plavix] 75 mg PO DAILY #30 tab 03/05/17 [Rx] Follow up Appointment(s)/Referral(s): Cary Tobin MD [STAFF PHYSICIAN] - 1 Week (Office closed at this time Patient given all info to make own APT.) Clark Hooper MD [STAFF PHYSICIAN] - 1 Week Ron Edwards DO [Primary Care Provider] - 1 Week (Patient given all info to make own follow up APT.) Activity/Diet/Wound Care/Special Instructions: Follow-up with [facility] Transplant Team and discuss Prograf possibly causing seizures. Discharge Disposition: HOME SELF-CARE
== END 2017-03-05 14:40 | disposition home or self-care (01) | DRG 65 ==
LOC: EC 02:18 → 6SEL 06:39
PROVIDERS: ADMIT Family Medicine; ATTEND Family Medicine
DX: I63.9 Cerebral infarction, unspecified (principal); G81.91 Hemiplegia, unspecified affecting right dominant side; R56.9 Unspecified convulsions; I12.9 Hypertensive chronic kidney disease with stage 1 through stage 4 chronic kidney disease, or unspecified chronic kidney disease; R47.01 Aphasia; E03.9 Hypothyroidism, unspecified; E78.5 Hyperlipidemia, unspecified; I08.1 Rheumatic disorders of both mitral and tricuspid valves; I65.23 Occlusion and stenosis of bilateral carotid arteries; J32.4 Chronic pansinusitis; K21.9 Gastro-esophageal reflux disease without esophagitis; N18.2 Chronic kidney disease, stage 2 (mild); N40.0 Benign prostatic hyperplasia without lower urinary tract symptoms; T45.1X5A Adverse effect of antineoplastic and immunosuppressive drugs, initial encounter; Z94.4 Liver transplant status; Z79.82 Long term (current) use of aspirin; Z79.899 Other long term (current) drug therapy; Z82.49 Family history of ischemic heart disease and other diseases of the circulatory system; Y92.009 Unspecified place in unspecified non-institutional (private) residence as the place of occurrence of the external cause
CPT/HCPCS: 36415; 70450; 70496; 70498; 70544; 70553; 71010; 71020; 80053; 80061; 81003; 82140; 82550; 82553; 83036; 83605; 83735; 84443; 84484; 85025; 85610; 85730; 87040; 87086; 93005; 93306; 93880; 95819; 99285

== ENCOUNTER 2017-03-31 07:34 | Day surgery (SDC) | payer MEDICARE, BC ==
[2017-03-30 09:45] VITALS: BMI 25.1
[2017-03-31 07:58] VITALS: RESP 16; TEMP 97.7
[2017-03-31] MEDS ORDERED: SODIUM CHLORIDE 0.9% 500 ML IV ONE (08:03)
[2017-03-31] MEDS ORDERED: BENZOCAINE SPRAY 100 APPLIC/CAN MUCOUS MEM ONE ×2 (10:00→10:05)
[2017-03-31] MEDS ORDERED: MIDAZOLAM 2 MG/2 ML VIAL IVP ONE ×2 (10:05→10:10)
--- NOTE | 2017-03-31 11:12 | ECHOT ---
DATE OF SERVICE: 03/31/2017 PERFORMING PHYSICIAN: Clark Hooper MD, security systems integrator. PROCEDURE PERFORMED: Transesophageal echocardiogram. INDICATION: This is a very pleasant 71-year-old gentleman who suffered from stroke recently. The transesophageal echocardiogram is to rule out any cardiac source of embolization. COMPLICATIONS: None. LEVEL OF SEDATION: Moderate with sedation length of about 30 minutes. PROCEDURE DESCRIPTION: After obtaining an informed consent, explaining the procedure, benefits, risks, complications and alternatives, the patient was brought to the transesophageal echocardiogram suite. A pulse oximetry and heart rate monitors were attached to the patient prior to the procedure. The patient's throat was sprayed using lidocaine locally. Following that, the patient was turned into left lateral position. A bite guard was placed and the patient was then sedated with the above doses of Versed and fentanyl in divided doses. Following that, the transesophageal echocardiogram probe was advanced through the bite guard into the mid esophagus where 2-D echocardiogram images as well as color Doppler images of various cardiac structures were obtained. We evaluated the interatrial septum using 2-D echocardiogram, color Doppler, and contrast study. The procedure was completed. There were no complications. FINDINGS: The left ventricular dimension and systolic function appeared to be within normal limits. The ejection fraction seems to be in the range of 55% to 60%. The right ventricle is of normal size and function. The left atrium appeared to be mildly dilated. The left atrial appendage appeared to be free from any thrombus. The interatrial septum appeared to be intact without any evidence of [id number] shunt by color flow Doppler or by contrast study. The aortic valve is trileaflet valve and seems to be thickened and calcified without stenosis with mild insufficiency. The mitral valve seems to be also mildly thickened with moderate MR. Mild tricuspid regurgitation was seen. CONCLUSION: 1. There is no evidence of cardiac source of embolization. 2. Normal left atrial appendage without any evidence of thrombus. 3. Intact interatrial septum without any evidence of shunt. 4. Normal left ventricular dimension and systolic function. 5. Normal right ventricular dimension and systolic function. 6. Aortic sclerosis without stenosis with mild insufficiency. 7. Mitral annular calcification with moderate mitral regurgitation. 8. Normal tricuspid valve and pulmonic valve. 9. No evidence of pericardial effusion.
[2017-03-31 12:36] VITALS: BP 122/69; PULSE 63
== END 2017-03-31 12:01 | disposition home or self-care (01) ==
LOC: CATHCVL 07:34
PROVIDERS: ATTEND Internal Medicine Interventional Cardiology
DX: I34.0 Nonrheumatic mitral (valve) insufficiency (principal); I70.0 Atherosclerosis of aorta; G45.9 Transient cerebral ischemic attack, unspecified; I10 Essential (primary) hypertension; E78.5 Hyperlipidemia, unspecified; I12.9 Hypertensive chronic kidney disease with stage 1 through stage 4 chronic kidney disease, or unspecified chronic kidney disease; N18.9 Chronic kidney disease, unspecified; Z94.4 Liver transplant status; Z79.82 Long term (current) use of aspirin; Z79.899 Other long term (current) drug therapy
CPT/HCPCS: 93312; 93320; 93325; 99152; 99153; J2250

== ENCOUNTER → 2017-07-24 | Outpatient (CLI) | payer MEDICARE, BC ==
[2017-07-24 11:13] LABS: Cholesterol 183 mg/dL (<200); HDL Cholesterol 39 mg/dL (40-60)
== END | disposition home or self-care (01) ==
LOC: LABWHC1 10:20
PROVIDERS: ATTEND Psychiatry & Neurology Neurology
DX: Z09 Encounter for follow-up examination after completed treatment for conditions other than malignant neoplasm (principal); Z86.73 Personal history of transient ischemic attack (TIA), and cerebral infarction without residual deficits
CPT/HCPCS: 36415; 80061

== ENCOUNTER → 2018-03-05 | Outpatient (CLI) | payer MEDICARE, BC ==
[2018-03-05 10:46] LABS: Cholesterol 180 mg/dL (<200); HDL Cholesterol 42 mg/dL (40-60); LDL Cholesterol,Calculated 123 mg/dL (0-99); Triglycerides 74 mg/dL (<150)
== END | disposition home or self-care (01) ==
LOC: LABWHC1 09:37
PROVIDERS: ATTEND Psychiatry & Neurology Neurology
DX: I10 Essential (primary) hypertension (principal); Z86.73 Personal history of transient ischemic attack (TIA), and cerebral infarction without residual deficits
CPT/HCPCS: 36415; 80061

== ENCOUNTER → 2019-09-02 | Outpatient (CLI) | payer MEDICARE, BC ==
[2019-09-02 11:23] LABS: Basophils % (A) 0 %; Eosinophils # (A) 0.1 k/uL (0-0.7); Eosinophils % (A) 2 %; HCT 44.3 % (39.0-53.0); HGB 13.7 gm/dL (13.0-17.5); Hypochromasia Slight; Lymphocytes # (A) 1.1 k/uL (1.0-4.8); Lymphocytes % (A) 21 %; MCHC 30.9 g/dL (31.0-37.0); MCV 87.3 fL (80.0-100.0); Mean Platelet Volume 5.7; Monocytes # (A) 0.3 k/uL (0-1.0); Monocytes % (A) 6 %; Neutrophils # (A) 3.5 k/uL (1.3-7.7); Neutrophils % (A) 67 %; Platelet Count 202 k/uL (150-450); RBC 5.07 m/uL (4.30-5.90); RDW 13.7 % (11.5-15.5); WBC 5.3 k/uL (3.8-10.6)
[2019-09-02 18:19] LABS: African American GFR (CKD) 52.4 (60.0-200.0); Albumin 4.4 g/dL (3.80-4.90); Albumin/Globulin Ratio 2.32 (1.60-3.17); Anion Gap 10.5 mmol/L (4.00-12.00); Bilirubin, Conjugated 0.3 mg/dL (0.20-0.40); Bilirubin,Unconjugated 0.7 mg/dL; Calcium 9.5 mg/dL (8.7-10.3); Carbon Dioxide 24.5 mmol/L (21.6-31.8); Globulin 1.9 g/dL (1.6-3.3); Total Protein 6.3 g/dL (6.2-8.2)
== END | disposition home or self-care (01) ==
LOC: LABWHC1 09:54
PROVIDERS: ATTEND Internal Medicine
DX: Z51.81 Encounter for therapeutic drug level monitoring (principal); Z79.899 Other long term (current) drug therapy; Z94.4 Liver transplant status
CPT/HCPCS: 36415; 80048; 80076; 85025

== ENCOUNTER → 2021-01-21 | Outpatient (CLI) | payer MEDICARE, BC ==
[2021-01-21 21:49] LABS: African American GFR (CKD) 56.2 (60.0-200.0); Albumin 4.5 g/dL (3.80-4.90); Albumin/Globulin Ratio 2.25 (1.60-3.17); Anion Gap 11.5 mmol/L (4.00-12.00); BUN/Creat Ratio 15.71 Ratio (12.00-20.00); Calcium 9.7 mg/dL (8.7-10.3); Carbon Dioxide 23.5 mmol/L (21.6-31.8); Non-African American GFR(CKD) 48.5 (60.0-200.0); Potassium 4.3 mmol/L (3.5-5.5); Total Bilirubin 0.9 mg/dL (0.3-1.2); Total Protein 6.5 g/dL (6.2-8.2)
== END | disposition home or self-care (01) ==
LOC: LABWHC1 13:01
PROVIDERS: ATTEND Internal Medicine
DX: R10.31 Right lower quadrant pain (principal)
CPT/HCPCS: 36415; 80053

== ENCOUNTER 2021-03-08 10:12 | Emergency (ER) | payer MEDICARE, BC ==
[2021-03-08] MEDS ORDERED: DIPH,PERTUS(ACELL)TETVAC-LF 0.5 ML VIAL IM ONE (11:13)
--- NOTE | 2021-03-08 11:15 | ED ---
General Adult HPI - General Chief complaint: Extremity Injury, Lower Stated complaint: L Leg Injury Time Seen by Provider: 03/08/21 10:21 Source: patient Mode of arrival: ambulatory Limitations: no limitations - History of Present Illness Initial comments: 75-year-old male presents emergency Department with a chief complaint of a leg injury. Patient reports he was splitting wood earlier today when a piece hit the side of his left lower leg and caused a skin tear. States he has thin skin and it appears rather easily. This occurred about 2 hours prior to arrival. Unaware of his tetanus status. Reports minimal pain and bleeding. States he applied an abd pad and came to the ED for an evaluation. Denies numbness or tingling. - Related Data Home Medications Medication Instructions Recorded Confirmed Metoprolol Succinate [Toprol XL] 50 mg PO HS 07/20/15 03/08/21 Tacrolimus [Prograf] 1 mg PO HS 07/20/15 03/08/21 Tamsulosin [Flomax] 0.4 mg PO HS 07/20/15 03/08/21 dexAMETHasone ORAL [Hexadrol] 0.5 mg PO HS 07/20/15 03/08/21 mycophenolate mofetiL [Cellcept] 2,000 mg PO HS 07/20/15 03/08/21 Pravastatin Sodium [Pravachol] 10 mg PO HS 03/03/17 03/08/21 Aspirin EC [Ecotrin Low Dose] 81 mg PO HS 03/08/21 03/08/21 Allergies Allergy/AdvReac Type Severity Reaction Status Date / Time No Known Allergies Allergy Verified 03/08/21 11:39 Review of Systems ROS Statement: Those systems with pertinent positive or pertinent negative responses have been documented in the HPI. ROS Other: All systems not noted in ROS Statement are negative. 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 Past Anesthesia/Blood Transfusion Reactions: No Reported Reaction Additional Past Anesthesia/Blood Transfusion Reaction / Comment(s): Pt received blood in past without reaction. hx jaw fx- had surgery and has a plate. a little confusion when first waking up Past Psychological History: No Psychological Hx Reported Smoking Status: Never smoker Past Alcohol Use History: None Reported Past Drug Use History: None Reported - Past Family History Father Family Medical History: Cancer Additional Family Medical History / Comment(s): Father was healthy. He around the age of 83 yrs. Mother Family Medical History: Myocardial Infarction ([place]) Additional Family Medical History / Comment(s): Mother of a [place] at the age of 83 yrs. General Exam Limitations: no limitations General appearance: alert, in no apparent distress Head exam: Present: atraumatic, normocephalic, normal inspection Eye exam: Present: normal appearance, PERRL, EOMI ENT exam: Present: normal exam, normal oropharynx, mucous membranes moist, TM's normal bilaterally, normal external ear exam Neck exam: Present: normal inspection, full ROM. Absent: tenderness Respiratory exam: Present: normal lung sounds bilaterally. Absent: respiratory distress Cardiovascular Exam: Present: regular rate, normal rhythm, normal heart sounds. Absent: systolic murmur Extremities exam: Present: full ROM, normal capillary refill, other (Palpable DP and PT bilaterally.). Absent: normal inspection (Skin tear on the lateral aspect of the left lower leg measuring approximately 10 cm 10 cm. Torn skin is still intact), tenderness, pedal edema, joint swelling, calf tenderness Back exam: Present: normal inspection, full ROM. Absent: tenderness Neurological exam: Present: alert, oriented X3, normal gait Psychiatric exam: Present: normal affect, normal mood Skin exam: Present: warm, dry, intact, normal color Course Vital Signs 03/08/21 10:16 Temperature 98 F Pulse Rate 57 L Respiratory 18 Rate Blood Pressure 160/72 O2 Sat by Pulse 99 Oximetry Procedures - Laceration Laceration #1 Consent Obtained: verbal consent Indication: laceration Site: lower extremity Size (cm): 10 Description: linear, clean Depth: simple, single layer Sedation/Analgesia: none Pre-repair: irrigated extensively, deep structures intact Type of Sutures: nylon Size of Sutures: 4-0 Number of Sutures: 5 Technique: horizontal mattress Complications: pain Patient Tolerated Procedure: well, no complications Medical Decision Making - Medical Decision Making 75-year-old male presents to emergency Department with a chief complaint of skin tear. Physical examination, patient has a large skin tear but the foreskin appears to be intact. This was thoroughly irrigated with normal saline. I was able to bring the skin to its original contour with 5 horizontal mattress sutures. Patient started procedure well. Tetanus was updated. Patient advised to return for suture removal. Case discussed with Dr. Dave. Disposition Clinical Impression: Skin tear of left lower leg without complication, Skin tear Disposition: HOME SELF-CARE Condition: Stable Instructions (If sedation given, give patient instructions): Care For Your Stitches (DC), Laceration (DC) Additional Instructions: Please return to the emergency room in 14 days to have sutures removed. Please watch for any signs of infection which may include increased pain, swelling, redness, fever or chills. Please return to emergency room for any signs of infection do occur. Please use clean soap and water over the area to prevent s cabbing over your stitches. Please leave wound covered for the first 24-48 hours and then leave wound open to air. Please return to the emergency room for any other concerns. Is patient prescribed a controlled substance at d/c from ED?: No Referrals: Ron Edwards DO [Primary Care Provider] - 1-2 days Time of Disposition: 11:15
[2021-03-08 12:05] VITALS: RESP 16; TEMP 97.9
[2021-03-08 12:07] VITALS: BP 148/70; PULSE 51
== END 2021-03-08 12:12 | disposition home or self-care (01) ==
LOC: EC 10:12
DX: S81.812A Laceration without foreign body, left lower leg, initial encounter (principal); K21.9 Gastro-esophageal reflux disease without esophagitis; M19.90 Unspecified osteoarthritis, unspecified site; I10 Essential (primary) hypertension; N40.0 Benign prostatic hyperplasia without lower urinary tract symptoms; Z94.4 Liver transplant status; Z79.82 Long term (current) use of aspirin; Z79.52 Long term (current) use of systemic steroids; W22.8XXA Striking against or struck by other objects, initial encounter
CPT/HCPCS: 12004; 90471; 90715; 99283

== ENCOUNTER 2021-03-10 09:51 | Inpatient (IN) | payer MEDICARE, BC ==
[2021-03-10] MEDS ORDERED: SODIUM CHLORIDE 0.9% 1,000 ML IV STA (10:18)
--- NOTE | 2021-03-10 10:18 | ED ---
Fever HPI - General Chief Complaint: Fever Stated Complaint: fever, no control of bowels Time Seen by Provider: 03/10/21 10:02 Source: patient, RN notes reviewed Mode of arrival: ambulatory Limitations: no limitations - History of Present Illness Initial Comments: 75-year-old male presents emergency Department with chief complaint of nausea vomiting diarrhea. Patient states she was seen here Monday after leg injury states that he had sutures placed for a large skin tear states is caused by wood. He states his been some fluid collection underneath this. He does admit that he is on immunosuppressants was not discharged with antibiotics. Patient r eports subjective fevers chills sweats. Patient states that he's had severe diarrhea the point where he feels like he cannot get to the bathroom fast enough. He states he thought he loss control but states that he knows that he has to go to the bathroom. He states that he has no back pain no leg paresthesias no saddle anesthesias no other complaints. He states that he had a liver transplant 17 years ago he had recent stents placed and removed by [facility] - Related Data Home Medications Medication Instructions Recorded Confirmed Metoprolol Succinate [Toprol XL] 50 mg PO HS 07/20/15 03/08/21 Tacrolimus [Prograf] 1 mg PO HS 07/20/15 03/08/21 Tamsulosin [Flomax] 0.4 mg PO HS 07/20/15 03/08/21 dexAMETHasone ORAL [Hexadrol] 0.5 mg PO HS 07/20/15 03/08/21 mycophenolate mofetiL [Cellcept] 2,000 mg PO HS 07/20/15 03/08/21 Pravastatin Sodium [Pravachol] 10 mg PO HS 03/03/17 03/08/21 Aspirin EC [Ecotrin Low Dose] 81 mg PO HS 03/08/21 03/08/21 Allergies Allergy/AdvReac Type Severity Reaction Status Date / Time No Known Allergies Allergy Verified 03/10/21 09:58 Review of Systems ROS Statement: Those systems with pertinent positive or pertinent negative responses have been documented in the HPI. ROS Other: All systems not noted in ROS Statement are negative. 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 Past Anesthesia/Blood Transfusion Reactions: No Reported Reaction Additional Past Anesthesia/Blood Transfusion Reaction / Comment(s): Pt received blood in past without reaction. hx jaw fx- had surgery and has a plate. a little confusion when first waking up Past Psychological History: No Psychological Hx Reported Smoking Status: Never smoker Past Alcohol Use History: None Reported Past Drug Use History: None Reported - Past Family History Father Family Medical History: Cancer Additional Family Medical History / Comment(s): Father was healthy. He around the age of 83 yrs. Mother Family Medical History: Myocardial Infarction ([place]) Additional Family Medical History / Comment(s): Mother of a [place] at the age of 83 yrs. General Exam Limitations: no limitations General appearance: alert, in no apparent distress Head exam: Present: atraumatic, normocephalic, normal inspection Eye exam: Present: normal appearance, PERRL, EOMI. Absent: scleral icterus, conjunctival injection, periorbital swelling ENT exam: Present: normal exam, normal oropharynx, mucous membranes moist Neck exam: Present: normal inspection, full ROM. Absent: tenderness, meningismus, lymphadenopathy Respiratory exam: Present: normal lung sounds bilaterally. Absent: respiratory distress, wheezes, rales, rhonchi, stridor Cardiovascular Exam: Present: regular rate, normal rhythm, normal heart sounds. Absent: systolic murmur, diastolic murmur, rubs, gallop, clicks GI/Abdominal exam: Present: soft, normal bowel sounds. Absent: distended, tenderness, guarding, rebound, rigid Extremities exam: Present: other (Lower extremity strength equal bilaterally neurovascular intact equal pulses equal color equal warmth) Back exam: Present: full ROM. Absent: tenderness, paraspinal tenderness, vertebral tenderness Neurological exam: Present: alert, oriented X3, CN II-XII intact, reflexes normal. Absent: motor sensory deficit Skin exam: Present: warm, dry, intact, normal color. Absent: rash Course Vital Signs 03/10/21 09:51 Temperature 97.7 F Pulse Rate 93 Respiratory 18 Rate Blood Pressure 113/52 O2 Sat by Pulse 99 Oximetry Medical Decision Making - Medical Decision Making 75-year-old presented for persistent persistent diarrhea. Patient on acutely dehydrated, acute renal failure. CT does not show any acute changes. Patient will be admitted for IV hydration, stool studies. - Lab Data Result diagrams: 03/10/21 10:46 03/10/21 10:46 Lab Results 03/10/21 03/10/21 03/10/21 Range/Units 10:46 10:46 10:46 WBC 10.8 H (3.8-10.6) k/uL RBC 4.11 L (4.30-5.90) m/uL Hgb 11.5 L (13.0-17.5) gm/dL Hct 35.1 L (39.0-53.0) % MCV 85.4 (80.0-100.0) fL MCH 28.0 (25.0-35.0) pg MCHC 32.7 (31.0-37.0) g/dL RDW 14.6 (11.5-15.5) % Plt Count 137 L (150-450) k/uL MPV 7.4 Neutrophils % 80 % Lymphocytes % 10 % Monocytes % 8 % Eosinophils % 1 % Basophils % 0 % Neutrophils # 8.6 H (1.3-7.7) k/uL Lymphocytes # 1.0 (1.0-4.8) k/uL Monocytes # 0.9 (0-1.0) k/uL Eosinophils # 0.1 (0-0.7) k/uL Basophils # 0.0 (0-0.2) k/uL Sodium 136 L (137-145) mmol/L Potassium 3.2 L (3.5-5.1) mmol/L Chloride 111 H (98-107) mmol/L Carbon Dioxide 18 L (22-30) mmol/L Anion Gap 7 mmol/L BUN 34 H (9-20) mg/dL Creatinine 2.51 H (0.66-1.25) mg/dL Est GFR (CKD-EPI)AfAm 28 (>60 ml/min/1.73 sqM) Est GFR (CKD-EPI)NonAf 24 (>60 ml/min/1.73 sqM) Glucose 76 (74-99) mg/dL Plasma Lactic Acid Angelo 0.7 (0.7-2.0) mmol/L Calcium 8.1 L (8.4-10.2) mg/dL Total Bilirubin 1.1 (0.2-1.3) mg/dL AST 20 (17-59) U/L ALT 9 (4-49) U/L Alkaline Phosphatase 59 (38-126) U/L Total Protein 5.3 L (6.3-8.2) g/dL Albumin 2.9 L (3.5-5.0) g/dL Amylase 58 (30-110) U/L Lipase 72 (23-300) U/L Disposition Clinical Impression: Dehydration, Diarrhea, Acute kidney injury Disposition: ADMITTED IP TO THIS HOSP Condition: Fair Referrals: Ron Edwards DO [Primary Care Provider] - 1-2 days
[2021-03-10 11:45] LABS: Albumin 2.9 g/dL (3.5-5.0); Calcium 8.1 mg/dL (8.4-10.2); Potassium 3.2 mmol/L (3.5-5.1); Total Bilirubin 1.1 mg/dL (0.2-1.3); Total Protein 5.3 g/dL (6.3-8.2)
[2021-03-10 12:00] LABS: Basophils % (A) 0 %; Eosinophils # (A) 0.1 k/uL (0-0.7); Eosinophils % (A) 1 %; HCT 35.1 % (39.0-53.0); HGB 11.5 gm/dL (13.0-17.5); Lymphocytes % (A) 10 %; MCHC 32.7 g/dL (31.0-37.0); MCV 85.4 fL (80.0-100.0); Mean Platelet Volume 7.4; Monocytes # (A) 0.9 k/uL (0-1.0); Monocytes % (A) 8 %; Neutrophils # (A) 8.6 k/uL (1.3-7.7); Neutrophils % (A) 80 %; Platelet Count 137 k/uL (150-450); RBC 4.11 m/uL (4.30-5.90); RDW 14.6 % (11.5-15.5); WBC 10.8 k/uL (3.8-10.6)
--- NOTE | 2021-03-10 13:06 | CT ---
EXAMINATION TYPE: CT abdomen pelvis wo con DATE OF EXAM: 03/10/2021 COMPARISON: Lumbar spine films 08/06/2011 INDICATION: Abdominal pain DLP: 767.5 mGycm, Automated exposure control for dose reduction was used. CONTRAST: 0 mL of Isovue 300. Study performed without Oral Contrast TECHNIQUE: Axial images were obtained from above the diaphragm to the pubic rami in the axial plane a t 5 mm thick sections. Reconstructed images are reviewed on the computer in the coronal plane. FINDINGS: Limited CT sections are obtained the lung bases. Mild streak atelectasis may be at the lung bases.. CT ABDOMEN: Liver: Normal Spleen: Normal Pancreas: Normal Adrenal glands: Not well identified. Gallbladder: Not identified Kidneys: No masses are evident. No hydronephrosis is present. There are multiple cysts present on t he bilateral kidneys. On the left the largest appears to be in the posterior lateral inferior pole me asuring 5.2 cm. On the right this is at the inferior medial pole measuring 7.5 cm. Couple of punctate nonobstructing renal stones may be present on the right inferior pole. Aorta: Vascular calcification is within the aorta. The distal descending thoracic aorta is somewhat prominent measuring 2.8 centimeters in AP dimension. Inferior vena cava: Normal. CT PELVIS: Loops of bowel within the abdomen and pelvis are normal. There are loops of bowel which are incom pletely distended or lack oral contrast limiting their evaluation. Appendix: Not visualized Urinary bladder: Urinary bladder wall thickening is diffusely present. Correlate for neurogenic bladd er. Cystitis could be considered. Genitourinary structures: Prostate is prominent. Osseous structures: No suspicious lytic or sclerotic lesions. Compression deformities are present wit hin the lumbar spine including L5 and L2. Some mild posterior wall displacement of the superior endpl ates of L1 and L2 may be present. This has moderate anterior thecal sac compression without AP spinal canal stenosis. Facet hypertrophy is present within the lower lumbar spine. IMPRESSIONS: 1. Multiple bilateral renal cysts. 2. Transplant liver as visualized appears unremarkable. 3. Mild fusiform prominence of the mid abdominal aorta with an AP diameter of 2.8 cm. 4. Old compression deformities lumbar spine. Some posterior wall displacement at L2 is present withou t spinal canal stenosis. 5. Diffusely thickened urinary bladder wall. Correlate for neurogenic bladder. Cystitis could be cons idered.
[2021-03-10 13:46] LABS: Appearance,Urine Clear (Clear); Bacteria,Urine Rare /hpf; Bilirubin,Urine Negative (Negative); Blood,Urine Small (Negative); Color,Urine Yellow; Glucose,Urine (UA) Negative (Negative); Ketones,Urine Trace (Negative); Leukocyte Esterase,Urine Moderate (Negative); Mucus,Urine Rare /hpf; Nitrite,Urine Negative (Negative); PH, Urine 5.5 (5.0-8.0); Protein,Urine 1+ (Negative); RBC,Urine 1 /hpf (0-5); Specific Gravity,Urine 1.012 (1.001-1.035); Squamous Epithelial Cell,Urine <1 /hpf (0-4); Urobilinogen,Urine <2.0 mg/dL (<2.0); WBC,Urine 35 /hpf (0-5)
[2021-03-10] MEDS ORDERED: NALOXONE 0.4 MG/ML 1 ML VIAL IV PRN (13:47)
[2021-03-10] MEDS ORDERED: ONDANSETRON 4 MG/2 ML VIAL IVP PRN (13:47)
[2021-03-10] MEDS ORDERED: cefTRIAXone IN SWFI 1,000 MG/10 ML SYRINGE IVP STA (14:07)
[2021-03-10] MEDS: SODIUM CHLORIDE 0.9% 1,000 ML IV SCH (16:33)
--- NOTE | 2021-03-10 18:02 | P.HPIM ---
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 Patient was in the ER on Monday after he had a laceration while he was cutting some wood. He got multiple sutures placed but no antibiotics were given. Patient started noticing some fluid underneath and was concerned for any infection. He started having nausea, vomiting and diarrhea starting yesterday. Patient also documents fever and chills but denies any shortness of breath or palpitation. He was admitted by weeks ago to [facility] for an obstructive kidney stone for which patient required stent placement and nephrostomy tube. He also developed bacteremia during this process. Patient denies any gross hematuria or any burning micturition. Vitals reviewed in the ER patient had a temp of 98.8 pulse 92 respiratory rate 18 blood pressure 138/60 oxygen saturation 97% on room air . Labs are concerning for leukocytosis of 10.8 hemoglobin 11.5 sodium 136 potassium 3.2 chloride 111 bicarb 18 BUN 34 creatinine 2.5 one baseline creatinine 1.1. UA is positive for infection with positive WBC and leukocyte esterase. Encouraged to send blood cultures sent . We will order labs for inflammatory markers, stool cultures C. diff. Patient received 1 L of IV fluid. Normal saline started at 75 mL per hour. Rocephin 2 g every 24 hours infectious disease consulted Review of Systems Review of system Constitutional: Endorses fever, chills, lethargy, poor appetite Eyes: denies decreased vision, denies diplopia, denies discharge, denies pain Ears: deny: decreased hearing Ears, nose, mouth and throat: Denies dental pain, Denies headache, Denies nasal discharge, Denies nose pain Cardiovascular: Denies chest pain, Denies decreased exercise tolerance, Denies edema, Denies high blood pressure, Denies irregular heart beat, Denies palpitations, Denies paroxysmal nocturnal dyspnea, Denies rapid heart beat, Denies shortness of breath Respiratory: Denies congestion, Denies cough, Denies cough with sputum, Denies dyspnea, Denies home oxygen, Denies wheezing Gastrointestinal: Endorses change in bowel habits, diarrhea Denies abdominal pain, , Denies coffee ground emesis, Denies early satiety, Denies excessive gas, Denies heartburn, Denies hematemesis, Denies hematochezia, Denies loss of appetite, Denies nausea, Denies vomiting Genitourinary: Denies dysuria, Denies flank pain, Denies kidney stones, Denies menorrhagia, Denies urgency, Denies urinary frequency Musculoskeletal: Denies gait dysfunction, Denies limitation of motion, Denies morning stiffness, Denies muscle cramps Integumentary: Endorses laceration on the left leg Denies brittle nails, Denies change in hair/nails, Denies darkening of skin Neurological: Denies balance difficulties, Denies change in speech, Denies double vision, Denies gait dysfunction, Denies loss of vision, Denies motor disturbance, Denies numbness, Denies paralysis, Denies paresthesias, Denies seizures Psychiatric: Denies anxiety, Denies depression Endocrine: Denies excessive sweating, Denies excessive thirst, Denies high blood sugars, Denies palpitations Hematologic/Lymphatic: Denies easy bruising, Denies lymphadenopathy Past Medical History Past Medical History: GERD/Reflux, Hypertension, Liver Disease, Osteoarthritis (OA), Prostate Disorder, Syncope, Thyroid Disorder Additional Past Medical History / Comment(s): Cryptogenic liver/jaundice in past with 2 past liver transplants, BPH, kidney problems prior to liver transplant-no current problems, past jaw fx with sx, February 2017-had episode with rt sided weakness and a fall-has no current effects, had episode of frequent PVC's, "thin skin" History of Any Multi-Drug Resistant Organisms: None Reported Additional Past Surgical History / Comment(s): 2000 liver transplant, 2003 liver transplant, 2007 plate in jaw from fx, bilateral cataract removal with lens, colonoscopy. Past Anesthesia/Blood Transfusion Reactions: No Reported Reaction Additional Past Anesthesia/Blood Transfusion Reaction / Comment(s): Pt received blood in past without reaction. hx jaw fx- had surgery and has a plate. a little confusion when first waking up Past Psychological History: No Psychological Hx Reported Smoking Status: Never smoker Past Alcohol Use History: None Reported Past Drug Use History: None Reported - Past Family History Father Family Medical History: Cancer Additional Family Medical History / Comment(s): Father was healthy. He around the age of 83 yrs. Mother Family Medical History: Myocardial Infarction (MT) Additional Family Medical History / Comment(s): Mother of a MT at the age of 83 yrs. Medications and Allergies Home Medications Medication Instructions Recorded Confirmed Type Metoprolol Succinate [Toprol XL] 50 mg PO HS 07/20/15 03/10/21 History Tacrolimus [Prograf] 1 mg PO HS 07/20/15 03/10/21 History Tamsulosin [Flomax] 0.4 mg PO HS 07/20/15 03/10/21 History dexAMETHasone ORAL [Hexadrol] 0.5 mg PO HS 07/20/15 03/10/21 History mycophenolate mofetiL [Cellcept] 2,000 mg PO HS 07/20/15 03/10/21 History Pravastatin Sodium [Pravachol] 10 mg PO HS 03/03/17 03/10/21 History Aspirin EC [Ecotrin Low Dose] 81 mg PO HS 03/08/21 03/10/21 History Allergies Allergy/AdvReac Type Severity Reaction Status Date / Time No Known Allergies Allergy Verified 03/10/21 14:59 Physical Exam Vitals: Vital Signs Temp Pulse Resp BP Pulse Ox 03/10/21 16:58 98.8 F 92 18 138/60 97 03/10/21 14:26 94 18 144/58 97 03/10/21 09:51 97.7 F 93 18 113/52 99 Intake and Output 03/10/21 03/10/21 03/10/21 06:59 14:59 22:59 Other: Weight 88.451 kg - Constitutional General appearance: cooperative, no acute distress, there stated age appears tired - EENT Eyes: anicteric sclerae, PERRLA, normal appearance ENT: hearing grossly normal - Neck Neck: no lymphadenopathy, normal ROM, no other, no rigidity, no stridor, no thyromegaly - Respiratory Respiratory: bilateral: CTA, negative: diminished, dullness, rales, rhonchi - Cardiovascular Rhythm: regular Heart sounds: normal: S1, S2 Abnormal Heart Sounds: C/6 systolic murmur, no diastolic murmur - Gastrointestinal General gastrointestinal: normal bowel sounds, soft nontender - Integumentary Integumentary: Laceration on the left lateral lower extremity with suture underlying redness not warm to touch and no drainage noted - Neurologic Neurologic: No gross motor or sensory deficit - Musculoskeletal Musculoskeletal: Gait not assessed, strength equal bilaterally - Psychiatric Psychiatric: A&O x's 3, appropriate affect Results CBC & Chem 7: 03/10/21 10:46 03/10/21 10:46 Labs: Abnormal Lab Results - Last 24 Hours (Table) 03/10/21 03/10/21 03/10/21 Range/Units 10:46 10:46 13:20 WBC 10.8 H (3.8-10.6) k/uL RBC 4.11 L (4.30-5.90) m/uL Hgb 11.5 L (13.0-17.5) gm/dL Hct 35.1 L (39.0-53.0) % Plt Count 137 L (150-450) k/uL Neutrophils # 8.6 H (1.3-7.7) k/uL Sodium 136 L (137-145) mmol/L Potassium 3.2 L (3.5-5.1) mmol/L Chloride 111 H (98-107) mmol/L Carbon Dioxide 18 L (22-30) mmol/L BUN 34 H (9-20) mg/dL Creatinine 2.51 H (0.66-1.25) mg/dL Calcium 8.1 L (8.4-10.2) mg/dL Total Protein 5.3 L (6.3-8.2) g/dL Albumin 2.9 L (3.5-5.0) g/dL Urine Protein 1+ H (Negative) Urine Ketones Trace H (Negative) Urine Blood Small H (Negative) Ur Leukocyte Esterase Moderate H (Negative) Urine WBC 35 H (0-5) /hpf Urine Bacteria Rare H (None) /hpf Urine Mucus Rare H (None) /hpf Thrombosis Risk Factor Assmnt - DVT/VTE Prophylaxis DVT/VTE Prophylaxis: Pharmacologic Prophylaxis ordered Assessment and Plan Plan: #1 acute diarrhea with nausea and vomiting. Continue IV fluids at 75 mL per hour C. diff ordered. So stool cultures ordered. ESR CRP ordered. CAT scan negative for any acute diverticulitis. #2 acute kidney injury underlying chronic kidney disease stage II likely secondary to diarrhea and dehydration. Continue IV fluids at 75 mL per hour #3 sepsis with UTI. Continue Rocephin 2 g every 24 hours. Continue IV fluids at 75 mL per hour. Infectious disease consulted #4 laceration with Suture placement on 03/08 no sign of infection. #5 history of liver transplantation for cryptogenic liver disease. On immunosuppressive medication including mycophenolate, tacrolimus) dexamethasone #6 hyperlipidemia continue pravastatin 10 mg daily at bedtime #7 hypertension continue metoprolol daily at bedtime #8 BPH continue tamsulosin 0.4 mg daily at bedtime #9 history of weakness stones status post nephrostomy tube and stent placement at [facility] has been home for the past 3 weeks and recovering #10 history of CVA in 2017 on aspirin 81 mg daily with pravastatin 10 mg daily #11 hypothyroidism on Synthyroid #11 CODE STATUS full code #12 DVT prophylaxis with Lovenox #13 disposition patient ate it is 1-2 inpatient nights for stabilization
[2021-03-10] MEDS ORDERED: VANCOMYCIN IV PER PHARMACY 1 EACH MISC MISCELLANE PRN (18:08)
[2021-03-10] MEDS: ACETAMINOPHEN TAB 325 MG TAB PO PRN (19:24)
[2021-03-10] MEDS ORDERED: VANCOMYCIN 1,500 MG in SODIUM CHLORIDE 0.9% 250 ML IVPB ONE (20:00)
[2021-03-10] MEDS: PRAVASTATIN SODIUM 20 MG TAB PO SCH (22:05)
[2021-03-10] MEDS: METOPROLOL SUCCINATE (ER) 50 MG TAB.ER.24H PO SCH (22:05)
[2021-03-10] MEDS: TAMSULOSIN 0.4 MG CAP.ER.24H PO SCH (22:05)
[2021-03-10] MEDS: ASPIRIN 81 MG PO SCH (22:05)
[2021-03-10] MEDS: TACROLIMUS 1 MG CAP PO SCH (23:02)
[2021-03-11] MEDS: ACETAMINOPHEN TAB 325 MG TAB PO PRN ×2 (02:40→14:41)
[2021-03-11] MEDS: SODIUM CHLORIDE 0.9% 1,000 ML IV SCH ×2 (02:40→17:29)
[2021-03-11] MEDS: ENOXAPARIN 30 MG/0.3 ML SYRINGE SQ SCH (07:58)
[2021-03-11 10:05] LABS: Basophils # (A) 0.01 X 10*3/uL (0.00-0.10); Basophils % (A) 0.1 %; Eosinophils # (A) 0.07 X 10*3/uL (0.04-0.35); HCT 36.9 % (39.6-50.0); HGB 11.4 g/dL (13.0-17.0); Lymphocytes % (A) 5.7 %; MCH 27.7 pg (27.0-32.0); MCHC 30.9 g/dL (32.0-37.0); MCV 89.8 fL (80.0-97.0); Mean Platelet Volume 10.1 fL (9.5-12.2); Monocytes # (A) 0.55 X 10*3/uL (0.20-1.00); Monocytes % (A) 7.9 %; Neutrophils # (A) 5.94 X 10*3/uL (1.80-7.70); Neutrophils % (A) 84.9 %; Platelet Count 148 X 10*3/uL (140-440); RBC 4.11 X 10*6/uL (4.40-5.60); RDW 14.4 % (11.5-14.5)
--- NOTE | 2021-03-11 13:00 | XR ---
EXAMINATION TYPE: XR abdomen 1V DATE OF EXAM: 03/11/2021 COMPARISON: NONE HISTORY: Weakness TECHNIQUE: One view abdominal series FINDINGS: The osseous structures are intact. The bowel gas pattern is nonspecific. Bilateral subsegmental cons olidation and small effusion. Hypertrophic and degenerative changes spine. Arthropathy of the hips. IMPRESSION: 1. Nonspecific abdomen. There are few prominent small bowel loops correlate for ileus, enteritis or p artial obstruction. 2. Bilateral lower lobe infiltrate.
--- NOTE | 2021-03-11 13:39 | P.PN ---
Subjective 75 years old male with past medical history of hypertension hyperlipidemia, history of liver transplant for cryptogenic liver disease 15 ye ars ago, history of chronic kidney disease stage II with history of CVA in 2017 comes in with subjective fever that started yesterday morning associated with multiple episodes of diarrhea. Patient was in the ER on Monday after he had a laceration while he was cutting some wood. He got multiple sutures placed but no antibiotics were given. Patient started noticing some fluid underneath and was concerned for any infection. He started having nausea, vomiting and diarrhea starting yesterday. Patient also documents fever and chills but denies any shortness of breath or palpitation. He was admitted by weeks ago to [facility] for an obstructive kidney stone for which patient required stent placement and nephrostomy tube. He also developed bacteremia during this process. Patient denies any gross hematuria or any burning micturition. Vitals reviewed in the ER patient had a temp of 98.8 pulse 92 respiratory rate 18 blood pressure 138/60 oxygen saturation 97% on room air . Labs are concerning for leukocytosis of 10.8 hemoglobin 11.5 sodium 136 potassium 3.2 chloride 111 bicarb 18 BUN 34 cr eatinine 2.5 one baseline creatinine 1.1. UA is positive for infection with positive WBC and leukocyte esterase. Encouraged to send blood cultures sent . We will order labs for inflammatory markers, stool cultures C. diff. Patient received 1 L of IV fluid. Normal saline started at 75 mL per hour. Rocephin 2 g every 24 hours infectious disease consulted 03/11: Patient evaluated at bedside today. Patient continues to have multiple bouts of diarrhea. Attempts to obtain school culture have been unsuccessful due to sample is mixed with urine. Will continue to try to obtain a stool culture. Abdominal x-ray shows nonspecific abdomen few prominent small bowel loops possible ileus enteritis or partial obstruction, also bilateral lower lobe infiltrate. Wound today is slightly red and warm to the touch with serous drainage. Wound cultures have been ordered and infectious disease on consult continues with ceftriaxone. Labs today show WBC of 7, hemoglobin 11.4. Vitals are stable he's afebrile temp is 98.7, heart rate 73, respiratory of 13, blood pressure 118/50, 97% on room air. Objective - Vital Signs Vital signs: Vital Signs Temp 98.7 F 03/11/21 08:00 Pulse 73 03/11/21 08:00 Resp 13 03/11/21 08:00 BP 118/50 03/11/21 08:00 Pulse Ox 97 03/11/21 08:00 Intake & Output 03/10/21 03/11/21 03/11/21 18:59 06:59 18:59 Output Total 0 Balance 0 Weight 88.451 kg Output: Urine 0 Other: # Voids 2 # Bowel Movements 2 - Exam - Constitutional General appearance: cooperative, no acute distress, there stated age appears tired - EENT Eyes: anicteric sclerae, PERRLA, normal appearance ENT: hearing grossly normal - Neck Neck: no lymphadenopathy, normal ROM, no other, no rigidity, no stridor, no thyromegaly - Respiratory Respiratory: bilateral: CTA, negative: diminished, dullness, rales, rhonchi - Cardiovascular Rhythm: regular Heart sounds: normal: S1, S2 Abnormal Heart Sounds: C/6 systolic murmur, no diastolic murmur - Gastrointestinal General gastrointestinal: normal bowel sounds, soft nontender - Integumentary Integumentary: Laceration on the left lateral lower extremity with suture underlying redness is warm to touch with serous drainage - Neurologic Neurologic: No gross motor or sensory deficit - Musculoskeletal Musculoskeletal: Gait not assessed, strength equal bilaterally - Psychiatric Psychiatric: A&O x's 3, appropriate affect - Labs CBC & Chem 7: 03/11/21 05:37 03/10/21 10:46 Labs: Abnormal Lab Results - Last 24 Hours (Table) 03/10/21 03/10/21 03/10/21 Range/Units 10:46 10:46 13:20 RBC (4.40-5.60) X 10*6/uL Hgb (13.0-17.0) g/dL Hct (39.6-50.0) % MCHC (32.0-37.0) g/dL Lymphocytes # (0.90-5.00) X 10*3/uL ESR 22 H (0-15) mm/hr C-Reactive Protein 21.5 H (<1.0) mg/dL Urine Protein 1+ H (Negative) Urine Ketones Trace H (Negative) Urine Blood Small H (Negative) Ur Leukocyte Esterase Moderate H (Negative) Urine WBC 35 H (0-5) /hpf Urine Bacteria Rare H (None) /hpf Urine Mucus Rare H (None) /hpf 05/13/21 Range/Units 05:37 RBC 4.11 L (4.40-5.60) X 10*6/uL Hgb 11.4 L (13.0-17.0) g/dL Hct 36.9 L (39.6-50.0) % MCHC 30.9 L (32.0-37.0) g/dL Lymphocytes # 0.40 L (0.90-5.00) X 10*3/uL ESR (0-15) mm/hr C-Reactive Protein (<1.0) mg/dL Urine Protein (Negative) Urine Ketones (Negative) Urine Blood (Negative) Ur Leukocyte Esterase (Negative) Urine WBC (0-5) /hpf Urine Bacteria (None) /hpf Urine Mucus (None) /hpf Microbiology - Last 24 Hours (Table) 03/10/21 13:20 Urine Culture - Preliminary Urine,Voided Assessment and Plan Plan: #1 acute diarrhea with nausea and vomiting. Continue IV fluids at 75 mL per hour C. diff ordered. So stool cultures ordered. ESR CRP ordered. CAT scan negative for any acute diverticulitis. #2 acute kidney injury underlying chronic kidney disease stage II likely secondary to diarrhea and dehydration. Continue IV fluids at 75 mL per hour #3 sepsis with UTI. Continue Rocephin 2 g every 24 hours. Continue IV fluids at 75 mL per hour. Infectious disease consulted #4 laceration with Suture placement on 03/08 #5 history of liver transplantation for cryptogenic liver disease. On immunosuppressive medication including mycophenolate, tacrolimus, dexamethasone #6 hyperlipidemia continue pravastatin 10 mg daily at bedtime #7 hypertension continue metoprolol daily at bedtime #8 BPH continue tamsulosin 0.4 mg daily at bedtime #9 history of weakness stones status post nephrostomy tube and stent placement at [facility] has been home for the past 3 weeks and recovering #10 history of CVA in 2017 on aspirin 81 mg daily with pravastatin 10 mg daily #11 hypothyroidism on Synthyroid #11 CODE STATUS full code #12 DVT prophylaxis with Lovenox #13 disposition patient ate it is 1-2 inpatient nights for stabilization The above impression and plan of care have been discussed and directed by signing physician. Brittney Adorno nurse practitioner acting as scribe for signing physician.
[2021-03-11 15:12] LABS: African American GFR (CKD) 34.4 (60.0-200.0); Albumin 3.5 g/dL (3.80-4.90); Albumin/Globulin Ratio 1.75 (1.60-3.17); Anion Gap 11.1 mmol/L (4.00-12.00); BUN/Creat Ratio 14.29 Ratio (12.00-20.00); Carbon Dioxide 17.9 mmol/L (21.6-31.8); Non-African American GFR(CKD) 29.7 (60.0-200.0); Total Bilirubin 0.8 mg/dL (0.3-1.2); Total Protein 5.5 g/dL (6.2-8.2)
[2021-03-11] MEDS: TACROLIMUS 1 MG CAP PO SCH (19:57)
[2021-03-11] MEDS: METOPROLOL SUCCINATE (ER) 50 MG TAB.ER.24H PO SCH (19:57)
[2021-03-11] MEDS: TAMSULOSIN 0.4 MG CAP.ER.24H PO SCH (19:58)
[2021-03-11] MEDS: PRAVASTATIN SODIUM 20 MG TAB PO SCH (19:58)
[2021-03-11] MEDS: ASPIRIN 81 MG PO SCH (19:58)
[2021-03-12] MEDS: SODIUM CHLORIDE 0.9% 1,000 ML IV SCH ×2 (05:14→22:32)
--- NOTE | 2021-03-12 05:30 | CONS ---
CONSULTATION DATE OF SERVICE: 03/11/2021. REASON FOR CONSULTATION: Fever, UTI. HISTORY OF PRESENT ILLNESS: The patient is a 75-year-old male with a past medical history significant for liver transplant, on immunosuppressive medication in this patient who did have a recent laceration to the left leg from the wood for which the patient was seen in the ER on Monday. The patient did have application of sutures and subsequently patient discharged home. The patient presenting back to the [facility] ER with concern for not feeling well, generalized weakness, has been complaining of nausea, vomiting and diarrhea that started the day before presentation to the hospital with not able to keep anything down. The patient apparently also had a recent stay at [facility] for obstructive kidney stone for which the patient required stent placement and nephrostomy tube. With these symptoms, the patient was evaluated by the ER physician as well as the admitting physician. The patient on presentation to the hospital was afebrile. Subsequently did spike a fever of 101.7 Fahrenheit with a low grade fever of 100.4 today. The patient denies having any headache or URI symptoms. No chest pain, shortness of breath or cough. No abdominal pain. No diarrhea. Complaining of some urinary burning and frequency for a day before presentation to hospital, but no hematuria. The patient denies having any pain to the left leg though. which has been stitched and there is no drainage from it. Workup so far including the patient did have a mildly borderline white count of 10.8 with left shift. However, repeat white count was normal. Sedimentation rate of 22. The patient did have elevated BUN and creatinine. Liver enzymes have been normal. Urine was positive with moderate leukocytosis with 5 WBC. Culture pending. Dee PCR negative. Stool for C difficile has been negative. Urine showing a Gram-negative. Blood culture has been negative so far. Patient was started on vancomycin and Rocephin. Infectious Disease was consulted for further management of antibiotic therapy. REVIEW OF SYSTEMS: Positive points have been mentioned in HPI. Rest of the systems are negative. PAST MEDICAL HISTORY: Gastroesophageal reflux disease, hypertension, cryptogenic liver cirrhosis, osteoarthritis, prostate disorder, syncope, recent stay at [facility] for urinary tract infection bacteremia. PAST SURGERY HISTORY: BPH, liver transplant, left fracture repair, bilateral cataract surgery and colonoscopy. SOCIAL HISTORY: No history of smoking, drinking or drug use. FAMILY HISTORY: No pertinent findings noticed. ALLERGIES: No known drug allergies. MEDICATIONS: The patient is currently on vancomycin, Pharmacy to dose and Rocephin 2 grams daily. Prograf, Flomax. Pravachol, Zofran, Narcan, CellCept, Toprol-XL, Lovenox. Dexamethasone, aspirin and Tylenol. PHYSICAL EXAMINATION: Blood pressure is 118/53 with a pulse of 73, temperature 98.3. He is 97% on room air. General description is an elderly male lying in bed in no distress. HEENT: Examination shows pallor. No scleral icterus. Oral mucous membranes dry. NECK: Trachea central. No thyromegaly. LUNGS unlabored breathing. Clear to auscultation anteriorly. HEART S1, S2. Regular rate and rhythm. ABDOMEN: Soft, no tenderness. No guarding. No rigidity. EXTREMITIES: Left leg wound which is currently stitched. Some dark skin but no warmth to it. No surrounding swelling redness or any drainage. NEUROLOGICAL: Patient is awake, alert, oriented x3. Mood and affect normal. LABS: Hemoglobin 11.4, white count 7. Admission white count 10.8. BUN of 30, creatinine is 2.1. Urine is positive. Dee PCR was negative. Stool for C difficile is negative. DIAGNOSTIC IMPRESSION AND PLAN: 1. Patient admitted to the hospital with acute nausea, vomiting, diarrhea, not feeling well with recent injury to the left leg that has been stitched with no evidence of any cellulitis or infection to the left leg wound. The patient did have a urinary burning, positive UA with recent [facility] stay with urinary tract infection and bacteremia, more likely complicated UTI. Clinical suspicion is low for a left leg wound infection or cellulitis. 2. Patient who does have a borderline kidney function high risk of nephrotoxicity from the vancomycin. PLAN: 1. Discontinue the vancomycin. 2. Continue the patient on Rocephin 2 grams IV piggyback daily. 3. We will follow on his clinical condition as well as cultures to further adjust medication if needed. Thank you for this consultation. Will follow this patient along with you. MMODL / IJN: [id number] /
[2021-03-12] MEDS: ENOXAPARIN 30 MG/0.3 ML SYRINGE SQ SCH (07:53)
--- NOTE | 2021-03-12 12:25 | P.NPCON ---
History of Present Illness - Reason for Consult acute renal failure - History of Present Illness Reason for consultation: Acute kidney injury on chronic kidney disease History of present illness: Patient is a 75-year-old male seen in renal consultation for acute kidney injury on chronic kidney disease. Patient has chronic kidney disease stage IIIa with baseline creatinine in the range of 1.2-1.4. Patient presented to the hospital after he injured his leg. Patient states would fell and ripped of the skin. He was having vomiting and diarrhea prior to admission. Creatinine was 2.5 on admission and was down to 2.1 as of yesterday. He's tolerating oral intake. Good urine output. No hematuria or dysuria. Denies chest pain or shortness of breath. Denies regular use of nonsteroidals. Patient has history of liver transplant and is maintained on Prograf and CellCept. He is also on dexamethas one. Blood pressure is stable. No fever or chills. C. diff was negative. He tested negative for coronavirus. Oral intake is gradually improving. Diarrhea also better since admission. Vital signs are stable. General: The patient appeared well nourished and normally developed. HEENT: Head exam is unremarkable. Neck is without jugular venous distension. LUNGS: Breath sounds decreased. HEART: Rate and Rhythm are regular. ABDOMEN: Soft, no distention. EXTREMITITES: No edema. 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 Past Anesthesia/Blood Transfusion Reactions: No Reported Reaction Additional Past Anesthesia/Blood Transfusion Reaction / Comment(s): Pt received blood in past without reaction. hx jaw fx- had surgery and has a plate. a little confusion when first waking up Past Psychological History: No Psychological Hx Reported Smoking Status: Never smoker Past Alcohol Use History: None Reported Past Drug Use History: None Reported - Past Family History Father Family Medical History: Cancer Additional Family Medical History / Comment(s): Father was healthy. He around the age of 83 yrs. Mother Family Medical History: Myocardial Infarction ([place]) Additional Family Medical History / Comment(s): Mother of a [place] at the age of 83 yrs. Medications and Allergies Home Medications Medication Instructions Recorded Confirmed Type Metoprolol Succinate [Toprol XL] 50 mg PO HS 07/20/15 03/10/21 History Tacrolimus [Prograf] 1 mg PO HS 07/20/15 03/10/21 History Tamsulosin [Flomax] 0.4 mg PO HS 07/20/15 03/10/21 History dexAMETHasone ORAL [Hexadrol] 0.5 mg PO HS 07/20/15 03/10/21 History mycophenolate mofetiL [Cellcept] 2,000 mg PO HS 07/20/15 03/10/21 History Pravastatin Sodium [Pravachol] 10 mg PO HS 03/03/17 03/10/21 History Aspirin EC [Ecotrin Low Dose] 81 mg PO HS 03/08/21 03/10/21 History Allergies Allergy/AdvReac Type Severity Reaction Status Date / Time No Known Allergies Allergy Verified 03/10/21 14:59 Physical Exam Vitals: Vital Signs Temp Pulse Resp BP Pulse Ox 03/12/21 08:00 98.1 F 60 17 123/58 98 03/12/21 02:51 99.2 F 71 121/56 99 03/11/21 20:00 73 12 03/11/21 19:11 98.3 F 73 118/53 97 03/11/21 14:00 100.4 F H 74 12 134/57 98 Intake and Output 03/11/21 03/12/21 03/12/21 22:59 06:59 14:59 Output Total 200 550 Balance -200 -550 Output: Urine 200 550 Other: # Voids 3 2 # Bowel Movements 3 Results - Lab Results Most recent lab results Calcium 8.0 mg/dL (8.7-10.3) L 03/11/21 05:37 03/11/21 05:37 03/11/21 05:37 Assessment and Plan Plan: Assessment: 1. Acute kidney injury mostly prerenal secondary to hypovolemia from vomiting and diarrhea. Creatinine 2.51 on admission and was down to 2.1 as of yesterday. 2. Chronic kidney disease stage IIIa with baseline creatinine in the range of 1.2-1.4 secondary to nephrosclerosis as well as long-term calcineurin inhibitor use. 3. Hypokalemia from poor intake. Improved post placement. 4. Metabolic acidosis secondary to acute kidney injury and GI losses. 5. History of liver transplant maintained on Prograf, CellCept and dexamethasone. Plan: Maintain IV fluids. Add oral bicarb. Encourage oral intake. Avoid nephrotoxins. Check renal ultrasound. Continue to monitor renal function and urine output. Check a.m. Prograf level. Thank you for the consultation. I will continue to follow patient with you during his hospital stay.
[2021-03-12] MEDS: SODIUM BICARBONATE TAB 650 MG TAB PO SCH ×3 (13:45→22:29)
--- NOTE | 2021-03-12 13:52 | US ---
EXAMINATION TYPE: US kidneys/renal and bladder DATE OF EXAM: 03/12/2021 COMPARISON: CT 03/10/2021 CLINICAL HISTORY: nicol. EXAM MEASUREMENTS: Right Kidney: 13.8 x 7.2 x 7.9 cm Left Kidney: 14.9 x 5.7 x 6.1 cm Right Kidney: Multiple cysts, largest measures 5.2 x 4.8 x 5.1 cm Left Kidney: multiple cysts, largest measures 4.5 x 5.1 x 5.1 cm. Bladder: wnl Bilateral Jets seen: No There is no evidence for hydronephrosis at this point in time. No nephrolithiasis is seen. No solid masses are identified. The urinary bladder is anechoic. IMPRESSION: Multiple renal cystic changes noted.
--- NOTE | 2021-03-12 14:17 | P.GSCN ---
History of Present Illness Consult date: 03/12/21 History of present illness: This 75-year-old male who states general surgery was asked for consult regarding possible partial small bowel obstruction. Patient has a very complex past medical and surgical history including multiple liver transplants, recent stay at [facility] for obstructive uropathy, he also recently had biliary obstruction with ERCP and stent which has since been removed. Patient states he was at home and recently had a laceration to his leg that brought him to the hospital. This was repaired. He denies any purulent draina ge from this he was noted to have fevers and was not feeling well. E. coli did grow out from his urine culture. Patient was also having some diarrhea and had a computed tomography scan of his abdomen and pelvis. He states that today his diarrhea has improved he had a somewhat more formed bowel movement. He denies any abdominal pain. He denies any nausea or vomiting at this time. 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 Past Anesthesia/Blood Transfusion Reactions: No Reported Reaction Additional Past Anesthesia/Blood Transfusion Reaction / Comm: Pt received blood in past without reaction. hx jaw fx- had surgery and has a plate. a little confusion when first waking up Past Psychological History: No Psychological Hx Reported Smoking Status: Never smoker Past Alcohol Use History: None Reported Past Drug Use History: None Reported - Past Family History Father Family Medical History: Cancer Additional Family Medical History / Comment(s): Father was healthy. He around the age of 83 yrs. Mother Family Medical History: Myocardial Infarction ([place]) Additional Family Medical History / Comment(s): Mother of a [place] at the age of 83 yrs. Medications and Allergies Home Medications Medication Instructions Recorded Confirmed Type Metoprolol Succinate [Toprol XL] 50 mg PO HS 09/21/15 05/12/21 History Tacrolimus [Prograf] 1 mg PO HS 07/20/15 03/10/21 History Tamsulosin [Flomax] 0.4 mg PO HS 07/20/15 03/10/21 History dexAMETHasone ORAL [Hexadrol] 0.5 mg PO HS 07/20/15 03/10/21 History mycophenolate mofetiL [Cellcept] 2,000 mg PO HS 07/20/15 03/10/21 History Pravastatin Sodium [Pravachol] 10 mg PO HS 03/03/17 03/10/21 History Aspirin EC [Ecotrin Low Dose] 81 mg PO HS 03/08/21 03/10/21 History Allergies Allergy/AdvReac Type Severity Reaction Status Date / Time No Known Allergies Allergy Verified 03/10/21 14:59 Surgical - Exam Osteopathic Statement: *. No significant issues noted on an osteopathic structural exam other than those noted in the History and Physical/Consult. Vital Signs Temp Pulse Resp BP Pulse Ox 97.7 F 93 18 113/52 99 03/10/21 09:51 03/10/21 09:51 03/10/21 09:51 03/10/21 09:51 03/10/21 09:51 - General well developed, well nourished, no distress - Eyes PERRL - Respiratory normal expansion, normal respiratory effort - Cardiovascular Rhythm: regular - Abdomen Abdomen: soft, non tender - Psychiatric oriented to time, oriented to person, oriented to place Results - Labs 03/11/21 05:37 03/11/21 05:37 Abnormal Lab Results - Last 24 Hours (Table) 03/11/21 03/11/21 Range/Units 05:37 13:30 Carbon Dioxide 17.9 L (21.6-31.8) mmol/L BUN 30.0 H (9.0-27.0) mg/dL Creatinine 2.1 H (0.6-1.5) mg/dL Est GFR (CKD-EPI)AfAm 34.4 L (60.0-200.0) Est GFR (CKD-EPI)NonAf 29.7 L (60.0-200.0) Calcium 8.0 L (8.7-10.3) mg/dL Total Protein 5.5 L (6.2-8.2) g/dL Albumin 3.50 L (3.80-4.90) g/dL Stool Lactoferrin POSITIVE A (NEGATIVE) Microbiology - Last 24 Hours (Table) 03/11/21 12:00 Gram Stain - Preliminary Leg - Left Wound Culture - Preliminary 03/10/21 13:20 Urine Culture - Preliminary Urine,Voided Gram Neg Bacilli 03/10/21 16:19 Blood Culture - Preliminary Blood No Growth after 24 hours 03/11/21 13:30 Stool Culture - Preliminary Stool 03/11/21 12:00 Anaerobic Culture - Preliminary Leg - Left Diabetes panel 03/11/21 Range/Units 05:37 Sodium 137 (135-145) mmol/L Potassium 4.0 (3.5-5.5) mmol/L Chloride 108 (96-109) mmol/L Carbon Dioxide 17.9 L (21.6-31.8) mmol/L BUN 30.0 H (9.0-27.0) mg/dL Creatinine 2.1 H (0.6-1.5) mg/dL Glucose 92 (70-110) mg/dL Calcium 8.0 L (8.7-10.3) mg/dL AST 22 (14-35) U/L ALT 11 (10-49) U/L Alkaline Phosphatase 70 (41-126) U/L Total Protein 5.5 L (6.2-8.2) g/dL Albumin 3.50 L (3.80-4.90) g/dL Calcium panel 03/11/21 Range/Units 05:37 Calcium 8.0 L (8.7-10.3) mg/dL Albumin 3.50 L (3.80-4.90) g/dL Pituitary panel 03/11/21 Range/Units 05:37 Sodium 137 (135-145) mmol/L Potassium 4.0 (3.5-5.5) mmol/L Chloride 108 (96-109) mmol/L Carbon Dioxide 17.9 L (21.6-31.8) mmol/L BUN 30.0 H (9.0-27.0) mg/dL Creatinine 2.1 H (0.6-1.5) mg/dL Glucose 92 (70-110) mg/dL Calcium 8.0 L (8.7-10.3) mg/dL Adrenal panel 05/13/21 Range/Units 05:37 Sodium 137 (135-145) mmol/L Potassium 4.0 (3.5-5.5) mmol/L Chloride 108 (96-109) mmol/L Carbon Dioxide 17.9 L (21.6-31.8) mmol/L BUN 30.0 H (9.0-27.0) mg/dL Creatinine 2.1 H (0.6-1.5) mg/dL Glucose 92 (70-110) mg/dL Calcium 8.0 L (8.7-10.3) mg/dL Total Bilirubin 0.8 (0.3-1.2) mg/dL AST 22 (14-35) U/L ALT 11 (10-49) U/L Alkaline Phosphatase 70 (41-126) U/L Total Protein 5.5 L (6.2-8.2) g/dL Albumin 3.50 L (3.80-4.90) g/dL Assessment and Plan Assessment: Diarrhea UTI History of liver transplant Plan: Patient does not appear to be obstructed at this time I do not recommend repeat CT at this time as patient is having bowel movements. Stool was negative for C. diff. He denies any abdominal pain. Continue antibiotics per ID recommendations. No plans for any surgical intervention at this time. Due to patients complex medical and surgical history with multiple liver transplants should the need for any surgical intervention arise or if the patient's condition does not improve I would recommend that the patient is evaluated at [facility] where most of his care has been administered in the past.
--- NOTE | 2021-03-12 14:34 | P.PN ---
Subjective 75 years old male with past medical history of hypertension hyperlipidemia, history of liver transplant for cryptogenic liver disease 15 ye ars ago, history of chronic kidney disease stage II with history of CVA in 2017 comes in with subjective fever that started yesterday morning associated with multiple episodes of diarrhea. Patient was in the ER on Monday after he had a laceration while he was cutting some wood. He got multiple sutures placed but no antibiotics were given. Patient started noticing some fluid underneath and was concerned for any infection. He started having nausea, vomiting and diarrhea starting yesterday. Patient also documents fever and chills but denies any shortness of breath or palpitation. He was admitted by weeks ago to [place] [facility] for an obstructive kidney stone for which patient required stent placement and nephrostomy tube. He also developed bacteremia during this process. Patient denies any gross hematuria or any burning micturition. Vitals reviewed in the ER patient had a temp of 98.8 pulse 92 respiratory rate 18 blood pressure 138/60 oxygen saturation 97% on room air . Labs are concerning for leukocytosis of 10.8 hemoglobin 11.5 sodium 136 potassium 3.2 chloride 111 bicarb 18 BUN 34 cr eatinine 2.5 one baseline creatinine 1.1. UA is positive for infection with positive WBC and leukocyte esterase. Encouraged to send blood cultures sent . We will order labs for inflammatory markers, stool cultures C. diff. Patient received 1 L of IV fluid. Normal saline started at 75 mL per hour. Rocephin 2 g every 24 hours infectious disease consulted 03/11: Patient evaluated at bedside today. Patient continues to have multiple bouts of diarrhea. Attempts to obtain school culture have been unsuccessful due to sample is mixed with urine. Will continue to try to obtain a stool culture. Abdominal x-ray shows nonspecific abdomen few prominent small bowel loops possible ileus enteritis or partial obstruction, also bilateral lower lobe infiltrate. Wound today is slightly red and warm to the touch with serous drainage. Wound cultures have been ordered and infectious disease on consult continues with ceftriaxone. Labs today show WBC of 7, hemoglobin 11.4. Vitals are stable he's afebrile temp is 98.7, heart rate 73, respiratory of 13, blood pressure 118/50, 97% on room air. 03/12: Patient evaluated today. Continues have bouts of diarrhea. Stool cultures returned negative for C. diff, stool lactoferrin was positive, surgery consulted. Does not recommend repeat CT at this time since patient is having bowel movements continue antibiotics per ID recommendations and no plan for surgical intervention at this time. Creatinine improved slightly from yesterday from 2.51-2.1, nephrology is on consult. Ultrasound of the kidney/renal and bladder shows no evidence for hydronephrosis or solid masses urinary bladder is unremarkable and no nephrolithiasis. He continues on ceftriaxone for his urinary tract infection, infectious disease on consult. Objective - Vital Signs Vital signs: Vital Signs Temp 98.1 F 03/12/21 08:00 Pulse 60 03/12/21 08:00 Resp 17 03/12/21 08:00 BP 123/58 03/12/21 08:00 Pulse Ox 98 03/12/21 08:00 Intake & Output 03/11/21 03/12/21 03/12/21 18:59 06:59 18:59 Output Total 200 550 Balance -200 -550 Output: Urine 200 550 Other: # Voids 3 2 # Bowel Movements 3 - Exam - Constitutional General appearance: cooperative, no acute distress, there stated age appears tired - EENT Eyes: anicteric sclerae, PERRLA, normal appearance ENT: hearing grossly normal - Neck Neck: no lymphadenopathy, normal ROM, no other, no rigidity, no stridor, no thyromegaly - Respiratory Respiratory: bilateral: CTA, negative: diminished, dullness, rales, rhonchi - Cardiovascular Rhythm: regular Heart sounds: normal: S1, S2 Abnormal Heart Sounds: C/6 systolic murmur, no diastolic murmur - Gastrointestinal General gastrointestinal: normal bowel sounds, soft nontender - Integumentary Integumentary: Laceration on the left lateral lower extremity with suture underlying redness is warm to touch - Neurologic Neurologic: No gross motor or sensory deficit - Musculoskeletal Musculoskeletal: Gait not assessed, strength equal bilaterally - Psychiatric Psychiatric: A&O x's 3, appropriate affect - Labs CBC & Chem 7: 03/11/21 05:37 03/11/21 05:37 Labs: Abnormal Lab Results - Last 24 Hours (Table) 03/11/21 03/11/21 Range/Units 05:37 13:30 Carbon Dioxide 17.9 L (21.6-31.8) mmol/L BUN 30.0 H (9.0-27.0) mg/dL Creatinine 2.1 H (0.6-1.5) mg/dL Est GFR (CKD-EPI)AfAm 34.4 L (60.0-200.0) Est GFR (CKD-EPI)NonAf 29.7 L (60.0-200.0) Calcium 8.0 L (8.7-10.3) mg/dL Total Protein 5.5 L (6.2-8.2) g/dL Albumin 3.50 L (3.80-4.90) g/dL Stool Lactoferrin POSITIVE A (NEGATIVE) Microbiology - Last 24 Hours (Table) 03/11/21 12:00 Gram Stain - Preliminary Leg - Left Wound Culture - Preliminary 03/10/21 13:20 Urine Culture - Preliminary Urine,Voided Gram Neg Bacilli 03/10/21 16:19 Blood Culture - Preliminary Blood No Growth after 24 hours 03/11/21 13:30 Stool Culture - Preliminary Stool 03/11/21 12:00 Anaerobic Culture - Preliminary Leg - Left Assessment and Plan Plan: #1 acute diarrhea with nausea and vomiting. Continue IV fluids at 75 mL per hour C. diff ordered. So stool cultures ordered. ESR CRP ordered. CAT scan negative for any acute diverticulitis. Stool culture negative for C.Diff, stool positive for lactoferrin, surgery on consult #2 acute kidney injury underlying chronic kidney disease stage II likely secondary to diarrhea and dehydration. Continue IV fluids at 75 mL per hour #3 sepsis with UTI. Continue Rocephin 2 g every 24 hours. Continue IV fluids at 75 mL per hour. Infectious disease consulted #4 laceration with Suture placement on 03/08 #5 history of liver transplantation for cryptogenic liver disease. On immunosuppressive medication including mycophenolate, tacrolimus, dexamethasone #6 hyperlipidemia continue pravastatin 10 mg daily at bedtime #7 hypertension continue metoprolol daily at bedtime #8 BPH continue tamsulosin 0.4 mg daily at bedtime #9 history of weakness stones status post nephrostomy tube and stent placement at [facility] has been home for the past 3 weeks and recovering #10 history of CVA in 2017 on aspirin 81 mg daily with pravastatin 10 mg daily #11 hypothyroidism on Synthyroid #11 CODE STATUS full code #12 DVT prophylaxis with Lovenox #13 disposition patient ate it is 1-2 inpatient nights for stabilization The above impression and plan of care have been discussed and directed by signing physician. Brittney Adorno nurse practitioner acting as scribe for signing physician.
--- NOTE | 2021-03-12 15:38 | PN ---
PROGRESS NOTE DATE OF SERVICE: 03/12/2021 REASON FOR FOLLOWUP: Urinary tract infection. INTERVAL HISTORY: The patient is currently afebrile. The patient is breathing comfortably. The patient denies having any chest pain or shortness of breath or cough. Denies any pain in the left leg. No nausea, no vomiting or diarrhea. Urine symptoms have improved. PHYSICAL EXAMINATION: Blood pressure 123/58 with pulse of 60, temperature 98.1. He is 98% on room air. General description is an elderly male lying in bed in no distress. RESPIRATORY SYSTEM: Unlabored breathing. Clear to auscultation anteriorly. HEART: S1, S2. Regular rate and rhythm. ABDOMEN: Soft. No tenderness. LEFT LEG: No significant swelling or redness or drainage. LABS: Hemoglobin is 11.4, white count 7.0, BUN of 30, creatinine 2.1. DIAGNOSTIC IMPRESSION AND PLAN: Patient admitted to hospital with a fever, nausea and vomiting secondary to symptomatic urinary tract infection. Urine with Gram-negative. The patient is covered with Rocephin. Will wait for the culture to finalize to determine discharge antibiotics. Continue supportive care. MMODL / IJN: [id number] /
--- NOTE | 2021-03-12 17:58 | PN ---
PROGRESS NOTE DATE OF SERVICE: 03/13/2021 REASON FOR FOLLOWUP: UA and Gram-negative urinary tract infection. INTERVAL HISTORY: The patient remains to be afebrile. The patient is feeling better, breathing comfortably. The patient denies having any chest pain or shortness of breath or cough. No nausea, no vomiting, no abdominal pain or pain to the left leg. PHYSICAL EXAMINATION: Blood pressure 126/63, pulse of 65, temperature 98.4. He is 99% on room air. General description is an elderly male lying in bed in no distress. RESPIRATORY SYSTEM: Unlabored breathing. Clear to auscultation anteriorly. HEART: S1, S2. Regular rate and rhythm. ABDOMEN: Soft. No tenderness. Left leg laceration stitched up with some darkness, but no redness or drainage. LABS: White count normal. Urine finalized as Providencia. Blood culture has been negative. DIAGNOSTIC IMPRESSION AND PLAN: Patient with a fever and urinary symptoms, likely secondary to symptomatic urinary tract infection, responded to Rocephin; to continue. Clinically no evidence of cellulitis or infection to the left leg. Plan to finish therapy with oral antibiotics MMODL / IJN: [id number] / MTDRom
[2021-03-12] MEDS: ASPIRIN 81 MG PO SCH (22:27)
[2021-03-12] MEDS: PRAVASTATIN SODIUM 20 MG TAB PO SCH (22:28)
[2021-03-12] MEDS: METOPROLOL SUCCINATE (ER) 50 MG TAB.ER.24H PO SCH (22:28)
[2021-03-12] MEDS: TACROLIMUS 1 MG CAP PO SCH (22:28)
[2021-03-12] MEDS: TAMSULOSIN 0.4 MG CAP.ER.24H PO SCH (22:29)
[2021-03-13] MEDS: ENOXAPARIN 30 MG/0.3 ML SYRINGE SQ SCH (07:53)
[2021-03-13] MEDS: SODIUM BICARBONATE TAB 650 MG TAB PO SCH ×3 (07:54→21:46)
[2021-03-13] MEDS: SODIUM CHLORIDE 0.9% 1,000 ML IV SCH ×2 (07:55→21:48)
--- NOTE | 2021-03-13 10:53 | P.PN ---
Subjective 75 years old male with past medical history of hypertension hyperlipidemia, history of liver transplant for cryptogenic liver disease 15 ye ars ago, history of chronic kidney disease stage II with history of CVA in 2017 comes in with subjective fever that started yesterday morning associated with multiple episodes of diarrhea. Patient was in the ER on Monday after he had a laceration while he was cutting some wood. He got multiple sutures placed but no antibiotics were given. Patient started noticing some fluid underneath and was concerned for any infection. He started having nausea, vomiting and diarrhea starting yesterday. Patient also documents fever and chills but denies any shortness of breath or palpitation. He was admitted by weeks ago to [facility] for an obstructive kidney stone for which patient required stent placement and nephrostomy tube. He also developed bacteremia during this process. Patient denies any gross hematuria or any burning micturition. Vitals reviewed in the ER patient had a temp of 98.8 pulse 92 respiratory rate 18 blood pressure 138/60 oxygen saturation 97% on room air . Labs are concerning for leukocytosis of 10.8 hemoglobin 11.5 sodium 136 potassium 3.2 chloride 111 bicarb 18 BUN 34 cr eatinine 2.5 one baseline creatinine 1.1. UA is positive for infection with positive WBC and leukocyte esterase. Encouraged to send blood cultures sent . We will order labs for inflammatory markers, stool cultures C. diff. Patient received 1 L of IV fluid. Normal saline started at 75 mL per hour. Rocephin 2 g every 24 hours infectious disease consulted 03/11: Patient evaluated at bedside today. Patient continues to have multiple bouts of diarrhea. Attempts to obtain school culture have been unsuccessful due to sample is mixed with urine. Will continue to try to obtain a stool culture. Abdominal x-ray shows nonspecific abdomen few prominent small bowel loops possible ileus enteritis or partial obstruction, also bilateral lower lobe infiltrate. Wound today is slightly red and warm to the touch with serous drainage. Wound cultures have been ordered and infectious disease on consult continues with ceftriaxone. Labs today show WBC of 7, hemoglobin 11.4. Vitals are stable he's afebrile temp is 98.7, heart rate 73, respiratory of 13, blood pressure 118/50, 97% on room air. 03/12: Patient evaluated today. Continues have bouts of diarrhea. Stool cultures returned negative for C. diff, stool lactoferrin was positive, surgery consulted. Does not recommend repeat CT at this time since patient is having bowel movements continue antibiotics per ID recommendations and no plan for surgical intervention at this time. Creatinine improved slightly from yesterday from 2.51-2.1, nephrology is on consult. Ultrasound of the kidney/renal and bladder shows no evidence for hydronephrosis or solid masses urinary bladder is unremarkable and no nephrolithiasis. He continues on ceftriaxone for his urinary tract infection, infectious disease on consult. 03/13: Patient evaluated today at the bedside for follow-up. Patient continues to have bouts of diarrhea, but seems to be slowing. Patient continues on ceftriaxone for UTI, urine culture positive for Providencia Rettgeri, infectious disease consult appreciated. Blood cultures show no growth to date, wound culture shows no growth, stool culture shows no growth and is negative for C. diff. Signs are stable blood pressure 113/51, heart rate 62, he is afebrile temperature of 98.1. Objective - Vital Signs Vital signs: Vital Signs Temp 98.1 F 03/13/21 02:36 Pulse 62 03/13/21 02:36 Resp 18 03/13/21 02:36 BP 113/51 03/13/21 02:36 Pulse Ox 99 03/13/21 02:36 Intake & Output 03/12/21 03/13/21 03/13/21 18:59 06:59 18:59 Output Total 1400 400 Balance -1400 -400 Output: Urine 1400 400 Other: # Voids 1 3 - Exam - Constitutional General appearance: cooperative, no acute distress. - EENT Eyes: anicteric sclerae, PERRLA, normal appearance ENT: hearing grossly normal - Neck Neck: no lymphadenopathy, normal ROM, no other, no rigidity, no stridor, no thyromegaly - Respiratory Respiratory: bilateral: CTA, negative: diminished, dullness, rales, rhonchi - Cardiovascular Rhythm: regular Heart sounds: normal: S1, S2 Abnormal Heart Sounds: C/6 systolic murmur, no diastolic murmur - Gastrointestinal General gastrointestinal: normal bowel sounds, soft nontender - Integumentary Integumentary: Laceration on the left lateral lower extremity with suture - Neurologic Neurologic: No gross motor or sensory deficit - Musculoskeletal Musculoskeletal: Gait not assessed, strength equal bilaterally - Psychiatric Psychiatric: A&O x's 3, appropriate affect - Labs CBC & Chem 7: 03/11/21 05:37 03/11/21 05:37 Labs: Microbiology - Last 24 Hours (Table) 03/10/21 13:20 Urine Culture - Final Urine,Voided Karl chowdhuryeri 03/10/21 16:19 Blood Culture - Preliminary Blood No Growth after 48 hours 03/11/21 12:00 Gram Stain - Preliminary Leg - Left Wound Culture - Preliminary Assessment and Plan Plan: #1 acute diarrhea with nausea and vomiting. Continue IV fluids at 75 mL per hour C. diff ordered. So stool cultures ordered. CAT scan negative for any acute diverticulitis. Stool culture negative for C.Diff, stool positive for lactoferrin, surgery consult appreciated #2 acute kidney injury underlying chronic kidney disease stage II likely secondary to diarrhea and dehydration. Continue IV fluids at 75 mL per hour #3 sepsis with UTI. Continue Rocephin 2 g every 24 hours. Continue IV fluids at 75 mL per hour. Infectious disease consult appreciated #4 laceration with Suture placement on 03/08. #5 history of liver transplantation for cryptogenic liver disease. On immunosuppressive medication including mycophenolate, tacrolimus, dexamethasone #6 hyperlipidemia continue pravastatin 10 mg daily at bedtime #7 hypertension continue metoprolol daily at bedtime #8 BPH continue tamsulosin 0.4 mg daily at bedtime #9 history of weakness stones status post nephrostomy tube and stent placement at [facility] has been home for the past 3 weeks and recovering #10 history of CVA in 2017 on aspirin 81 mg daily with pravastatin 10 mg daily #11 hypothyroidism on Synthyroid #11 CODE STATUS full code #12 DVT prophylaxis with Lovenox #13 disposition patient ate it is 1-2 inpatient nights for stabilization The above impression and plan of care have been discussed and directed by signing physician. Brittney Adorno nurse practitioner acting as scribe for signing physician.
[2021-03-13 11:30] LABS: HCT 36.6 % (39.6-50.0); HGB 11.2 g/dL (13.0-17.0); MCH 26.9 pg (27.0-32.0); MCHC 30.6 g/dL (32.0-37.0); Mean Platelet Volume 10.3 fL (9.5-12.2); Platelet Count 148 X 10*3/uL (140-440); RBC 4.16 X 10*6/uL (4.40-5.60); WBC 3.75 X 10*3/uL (4.50-10.00)
[2021-03-13 11:44] LABS: African American GFR (CKD) 61.4 (60.0-200.0); Albumin 3.5 g/dL (3.80-4.90); Albumin/Globulin Ratio 1.84 (1.60-3.17); Anion Gap 7.4 mmol/L (4.00-12.00); BUN/Creat Ratio 11.54 Ratio (12.00-20.00); Calcium 8.1 mg/dL (8.7-10.3); Carbon Dioxide 22.6 mmol/L (21.6-31.8); Globulin 1.9 g/dL (1.6-3.3); Magnesium 1.6 mg/dL (1.5-2.4); Total Bilirubin 0.2 mg/dL (0.2-1.2); Total Protein 5.4 g/dL (6.2-8.2)
--- NOTE | 2021-03-13 11:49 | P.PN ---
Subjective Progress Note Date: 03/13/21 Patient seen and examined no acute events overnight patient states he's feeling better he had a bowel movement which was more formed last night and one this morning no diarrhea per report of patient. Denies any abdominal pain Objective - Vital Signs Vital signs: Vital Signs Temp 97.6 F 03/13/21 08:00 Pulse 56 L 03/13/21 08:00 Resp 19 03/13/21 08:00 BP 124/63 03/13/21 08:00 Pulse Ox 99 03/13/21 08:00 Intake & Output 03/12/21 03/13/21 03/13/21 18:59 06:59 18:59 Output Total 1400 400 Balance -1400 -400 Output: Urine 1400 400 Other: # Voids 1 3 - Constitutional General appearance: Present: cooperative - Cardiovascular Rhythm: regular - Gastrointestinal Gastrointestinal Comment(s): Soft nontender nondistended - Psychiatric Psychiatric: Present: A&O x's 3 - Labs CBC & Chem 7: 03/13/21 07:00 03/13/21 07:00 Labs: Abnormal Lab Results - Last 24 Hours (Table) 03/13/21 03/13/21 Range/Units 07:00 07:00 WBC 3.75 L (4.50-10.00) X 10*3/uL RBC 4.16 L (4.40-5.60) X 10*6/uL Hgb 11.2 L (13.0-17.0) g/dL Hct 36.6 L (39.6-50.0) % MCH 26.9 L (27.0-32.0) pg MCHC 30.6 L (32.0-37.0) g/dL Est GFR (CKD-EPI)NonAf 53.0 L (60.0-200.0) BUN/Creatinine Ratio 11.54 L (12.00-20.00) Ratio Calcium 8.1 L (8.7-10.3) mg/dL AST 36 H (14-35) U/L Total Protein 5.4 L (6.2-8.2) g/dL Albumin 3.50 L (3.80-4.90) g/dL Microbiology - Last 24 Hours (Table) 03/11/21 12:00 Gram Stain - Final Leg - Left Wound Culture - Final 03/10/21 13:20 Urine Culture - Final Urine,Voided Providencia rettgeri 03/10/21 16:19 Blood Culture - Preliminary Blood No Growth after 48 hours Assessment and Plan Assessment: Diarrhea UTI History of liver transplant Plan: Patient's diarrhea is improving no intervention planned from a surgical standpoint. Follow up on final stool culture.
--- NOTE | 2021-03-13 16:12 | PN ---
PROGRESS NOTE The patient is seen for followup for acute kidney injury. He is currently maintained on IV fluids. Renal function has improved significantly with creatinine down to 1.3 from 2.5 on initial admission. Patient has been voiding. EXAMINATION: Today blood pressure 124/63, heart rate 56 per minute, he is afebrile. Examination of the heart S1, S2. Examination of the lungs, bilateral breath sounds are heard. Abdomen is soft, nontender. Examination of lower extremities shows no significant edema. [employer] exam grossly intact. LAB: Show sodium 139, potassium 4.0, BUN 15, serum creatinine 1.3, hemoglobin 11.2 g/dL. ASSESSMENT: 1. Acute kidney injury, prerenal, currently improved with IV hydration. 2. Chronic kidney disease stage 3, baseline creatinine 1.2-1.4, associated with long- term use of calcium urine inhibitors. 3. Hypokalemia from poor oral intake. 4. History of liver transplant maintained on Prograf, CellCept, and steroids. 5. Metabolic acidosis associated with acute kidney injury, GI fluid losses. PLAN: Continue IV fluids. Encourage increased oral intake. MMODL / IJN: [id number] /
[2021-03-13] MEDS: TACROLIMUS 1 MG CAP PO SCH (21:46)
[2021-03-13] MEDS: ASPIRIN 81 MG PO SCH (21:46)
[2021-03-13] MEDS: PRAVASTATIN SODIUM 20 MG TAB PO SCH (21:46)
[2021-03-13] MEDS: METOPROLOL SUCCINATE (ER) 50 MG TAB.ER.24H PO SCH (21:46)
[2021-03-13] MEDS: TAMSULOSIN 0.4 MG CAP.ER.24H PO SCH (21:46)
[2021-03-14 08:33] VITALS: BP 138/66; PULSE 56; RESP 18; TEMP 98.4
[2021-03-14] MEDS: SODIUM BICARBONATE TAB 650 MG TAB PO SCH (08:37)
[2021-03-14] MEDS ORDERED: FLUCONAZOLE 100 MG TAB PO SCH (09:00)
[2021-03-14] MEDS ORDERED: ENOXAPARIN 40 MG/0.4 ML SYRINGE SQ SCH (09:00)
--- NOTE | 2021-03-14 10:42 | P.DS ---
Providers Date of admission: 03/10/21 13:37 Expected date of discharge: 03/14/21 Attending physician: Ranjit Arceo MD Consults: 03/10/21 17:47 Consult Physician Routine Consulting Provider: Val Pringle Consult Reason/Comments: UTI, h/o renal stones Do you want consulting provider notified?: Yes 03/12/21 09:20 Consult Physician Routine Consulting Provider: Gil Saeed Consult Reason/Comments: SARAI Do you want consulting provider notified?: Yes 03/12/21 10:53 Consult Physician Routine Consulting Provider: Oralia Leon Consult Reason/Comments: partial obstruction, inflammation, diarrhea Do you want consulting provider notified?: Yes Primary care physician: [facility] Course: 75 years old male with past medical history of hypertension hyperlipidemia, history of liver transplant for cryptogenic liver disease 15 years ago, history of chronic kidney disease stage II with history of CVA in 2017 comes in with subjective fever that started yesterday morning associated with multiple episodes of diarrhea. Patient was in the ER on Monday after he had a laceration while he was cutting some wood. He got multiple sutures placed but no antibiotics were given. Patient started noticing some fluid underneath and was concerned for any infection. He started having nausea, vomiting and diarrhea starting yesterday. Patient also documents fever and chills but denies any shortness of breath or palpitation. He was admitted by weeks ago to [facility] for an obstructive kidney stone for which patient required stent placement and nephrostomy tube. He also developed bacteremia during this process. Patient denies any gross hematuria or any burning micturition. Vitals reviewed in the ER patient had a temp of 98.8 pulse 92 respiratory rate 18 blood pressure 138/60 oxygen saturation 97% on room air . Labs are concerning for leukocytosis of 10.8 hemoglobin 11.5 sodium 136 potassium 3.2 chloride 111 bicarb 18 BUN 34 creatinine 2.5 one baseline creatinine 1.1. UA is positive for infection with positive WBC and leukocyte esterase. Encouraged to send blood cultures sent . We will order labs for inflammatory markers, stool cultures C. diff. Patient received 1 L of IV fluid. Normal saline started at 75 mL per hour. Rocephin 2 g every 24 hours infectious disease consulted 03/11: Patient evaluated at bedside today. Patient continues to have multiple bouts of diarrhea. Attempts to obtain school culture have been unsuccessful due to sample is mixed with urine. Will continue to try to obtain a stool culture. Abdominal x-ray shows nonspecific abdomen few prominent small bowel loops possible ileus enteritis or partial obstruction, also bilateral lower lobe infiltrate. Wound today is slightly red and warm to the touch with serous drainage. Wound cultures have been ordered and infectious disease on consult continues with ceftriaxone. Labs today show WBC of 7, hemoglobin 11.4. Vitals are stable he's afebrile temp is 98.7, heart rate 73, respiratory of 13, blood pressure 118/50, 97% on room air. 03/12: Patient evaluated today. Continues have bouts of diarrhea. Stool cultures returned negative for C. diff, stool lactoferrin was positive, surgery consulted. Does not recommend repeat CT at this time since patient is having bowel movements continue antibiotics per ID recommendations and no plan for surgical intervention at this time. Creatinine improved slightly from yesterday from 2.51-2.1, nephrology is on consult. Ultrasound of the kidney/renal and bladder shows no evidence for hydronephrosis or solid masses urinary bladder is unremarkable and no nephrolithiasis. He continues on ceftriaxone for his urinary tract infection, infectious disease on consult. 03/13: Patient evaluated today at the bedside for follow-up. Patient continues to have bouts of diarrhea, but seems to be slowing. Patient continues on ceftriaxone for UTI, urine culture positive for Providencia Rettgeri, infectious disease consult appreciated. Blood cultures show no growth to date, wound culture shows no growth, stool culture shows no growth and is negative for C. diff. Signs are stable blood pressure 113/51, heart rate 62, he is afebrile temperature of 98.1. 03/14: Patient evaluated, resting comfortably in the bed. Denies any nausea or vomiting, diarrhea has improved significantly. Stool cultures positive for Nirmala albicans. Diflucan 100 mg for 10 days ordered, interaction noted between Tacrolimus and Diflucan, will need to repeat Tacrolimus level in 2-3 days. Order provided on discharge. IV antibiotics switched to Ceftin 250 for a total of 10 days. Discharge diagnoses #1 acute diarrhea with nausea and vomiting. #2 acute kidney injury underlying chronic kidney disease stage II likely secondary to diarrhea and dehydration. #3 sepsis with UTI. #4 laceration with Suture placement on 03/08. #5 history of liver transplantation for cryptogenic liver disease. WILL NEED TACROLIMUS LEVEL IN 2-3 DAYS #6 hyperlipidemia #7 hypertension #8 BPH #9 history of kidney stones status post nephrostomy tube and stent placement at [facility] #10 history of CVA in 2017 #11 hypothyroidism The above impression and plan of care have been discussed and directed by signing physician. Brittney Adorno nurse practitioner acting as scribe for signing physician. Patient Condition at Discharge: Fair Plan - Discharge Summary Discharge Rx Participant: Yes New Discharge Prescriptions: New Cefuroxime Axetil [Ceftin] 250 mg PO BID 10 Days #20 tab Sodium Bicarbonate Tab 650 mg PO TID #90 tab Acetaminophen Tab [Tylenol] 650 mg PO Q6HR PRN tab PRN Reason: Fever And/ Or Pain Fluconazole [Diflucan] 100 mg PO DAILY #10 tab Continue dexAMETHasone ORAL [Hexadrol] 0.5 mg PO HS Tamsulosin [Flomax] 0.4 mg PO HS Tacrolimus [Prograf] 1 mg PO HS mycophenolate mofetiL [Cellcept] 2,000 mg PO HS Metoprolol Succinate [Toprol XL] 50 mg PO HS Pravastatin Sodium [Pravachol] 10 mg PO HS Aspirin EC [Ecotrin Low Dose] 81 mg PO HS Discharge Medication List Metoprolol Succinate [Toprol XL] 50 mg PO HS 07/20/15 [History] Tacrolimus [Prograf] 1 mg PO HS 07/20/15 [History] Tamsulosin [Flomax] 0.4 mg PO HS 07/20/15 [History] dexAMETHasone ORAL [Hexadrol] 0.5 mg PO HS 07/20/15 [History] mycophenolate mofetiL [Cellcept] 2,000 mg PO HS 07/20/15 [History] Pravastatin Sodium [Pravachol] 10 mg PO HS 03/03/17 [History] Aspirin EC [Ecotrin Low Dose] 81 mg PO HS 03/08/21 [History] Acetaminophen Tab [Tylenol] 650 mg PO Q6HR PRN tab 03/14/21 [Rx] Cefuroxime Axetil [Ceftin] 250 mg PO BID 10 Days #20 tab 03/14/21 [Rx] Fluconazole [Diflucan] 100 mg PO DAILY #10 tab 03/14/21 [Rx] Sodium Bicarbonate Tab 650 mg PO TID #90 tab 03/14/21 [Rx] Follow up Appointment(s)/Referral(s): Macarena Montgomery MD [STAFF PHYSICIAN] - 1 Week Ron Edwards DO [Primary Care Provider] - 1-2 days Ambulatory/Diagnostic Orders: Miscellaneous Lab Order [LAB.AMB] Time Frame: 2 Days, Location: None Selected
[2021-03-14] MEDS: SODIUM CHLORIDE 0.9% 1,000 ML IV SCH (11:22)
--- NOTE | 2021-03-14 12:42 | PN ---
PROGRESS NOTE Patient is seen for followup for acute kidney injury. His renal function has improved with creatinine down to 1.3 today. Patient is maintained on IV fluids. He is feeling better. PHYSICAL EXAMINATION: On examination today, blood pressure 138/66, heart rate 56 per minute, he is afebrile. Patient appears euvolemic. LAB: Show sodium 139, potassium 4.0 chloride 109, BUN 15, serum creatinine 1.3, hemoglobin 11.2 g/dL. ASSESSMENT: 1. Acute kidney injury, prerenal, currently improved significantly. 2. Urinary tract infection, urine culture growing ( ), maintained on antibiotics. 3. Metabolic acidosis, currently improved. 4. Chronic kidney disease stage 3, baseline creatinine 1.2-1.4 associated with long- term use of calcium urine inhibitors. PLAN: Okay for discharge from nephrology standpoint. MMODL / SANYAN: [id number] /
== END 2021-03-14 14:19 | disposition home or self-care (01) | DRG 872 ==
LOC: EC 09:51 → 4SSUR 13:37
PROVIDERS: ADMIT Internal Medicine; ATTEND Internal Medicine
DX: A41.9 Sepsis, unspecified organism (principal); Z94.4 Liver transplant status; N39.0 Urinary tract infection, site not specified; N17.9 Acute kidney failure, unspecified; E87.2 Acidosis; Z20.822 Contact with and (suspected) exposure to COVID-19; E86.0 Dehydration; I12.9 Hypertensive chronic kidney disease with stage 1 through stage 4 chronic kidney disease, or unspecified chronic kidney disease; N18.31 Chronic kidney disease, stage 3a; E86.1 Hypovolemia; E87.6 Hypokalemia; R19.7 Diarrhea, unspecified; S81.812D Laceration without foreign body, left lower leg, subsequent encounter; E78.5 Hyperlipidemia, unspecified; E03.9 Hypothyroidism, unspecified; N40.0 Benign prostatic hyperplasia without lower urinary tract symptoms; K21.9 Gastro-esophageal reflux disease without esophagitis; B96.89 Other specified bacterial agents as the cause of diseases classified elsewhere; M19.90 Unspecified osteoarthritis, unspecified site; Z79.82 Long term (current) use of aspirin; Z79.52 Long term (current) use of systemic steroids; Z79.899 Other long term (current) drug therapy; Z87.442 Personal history of urinary calculi; Z87.81 Personal history of (healed) traumatic fracture; Z86.73 Personal history of transient ischemic attack (TIA), and cerebral infarction without residual deficits; Z98.42 Cataract extraction status, left eye; Z98.41 Cataract extraction status, right eye; Z96.1 Presence of intraocular lens; Z87.19 Personal history of other diseases of the digestive system; Z98.890 Other specified postprocedural states; W45.8XXA Other foreign body or object entering through skin, initial encounter; Z80.9 Family history of malignant neoplasm, unspecified; Z82.49 Family history of ischemic heart disease and other diseases of the circulatory system
CPT/HCPCS: 12004; 36415; 74018; 74176; 76770; 80053; 80197; 81001; 82150; 83605; 83630; 83690; 83735; 85025; 85027; 85652; 86140; 87040; 87045; 87046; 87070; 87075; 87077; 87086; 87186; 87205; 87324; 87635; 90471; 90715; 96360; 96361; 99283; 99285

== ENCOUNTER → 2021-03-22 | Outpatient (CLI) | payer MEDICARE, BC ==
[2021-03-22 11:30] LABS: Creatinine,Urine Random 113.9 mg/dL; Protein/Creatinine Ratio,Urine 0.158
[2021-03-22 14:41] LABS: Basophils # (A) 0.01 X 10*3/uL (0.00-0.10); Basophils % (A) 0.1 %; Eosinophils # (A) 0.03 X 10*3/uL (0.04-0.35); Eosinophils % (A) 0.4 %; HCT 37.9 % (39.6-50.0); HGB 11.6 g/dL (13.0-17.0); Lymphocytes # (A) 1.09 X 10*3/uL (0.90-5.00); Lymphocytes % (A) 14.9 %; MCH 26.9 pg (27.0-32.0); MCHC 30.6 g/dL (32.0-37.0); MCV 87.7 fL (80.0-97.0); Monocytes % (A) 8.2 %; Neutrophils # (A) 5.55 X 10*3/uL (1.80-7.70); Platelet Count 336 X 10*3/uL (140-440); RBC 4.32 X 10*6/uL (4.40-5.60); RDW 14.1 % (11.5-14.5); WBC 7.31 X 10*3/uL (4.50-10.00)
[2021-03-22 14:42] LABS: African American GFR (CKD) 67.7 (60.0-200.0); Albumin 4.2 g/dL (3.80-4.90); Albumin/Globulin Ratio 1.83 (1.60-3.17); Anion Gap 7.6 mmol/L (4.00-12.00); BUN/Creat Ratio 13.33 Ratio (12.00-20.00); Calcium 9.4 mg/dL (8.7-10.3); Carbon Dioxide 26.4 mmol/L (21.6-31.8); Globulin 2.3 g/dL (1.6-3.3); Non-African American GFR(CKD) 58.4 (60.0-200.0); Phosphorus 2.8 mg/dL (2.4-5.1); Potassium 4.8 mmol/L (3.5-5.5); Total Bilirubin 0.6 mg/dL (0.3-1.2); Total Protein 6.5 g/dL (6.2-8.2)
[2021-03-24 10:49] LABS: CMV DNA Qualitative DETECTED (Not detected); CMV DNA, Quantitative <50 IU/mL (<50); LOG CMV Copies/mL <126 Copies/mL (<126); Log Cytomegalovirus <1.70 (<1.70)
== END | disposition home or self-care (01) ==
LOC: LABWHC1 09:39
PROVIDERS: ATTEND Nurse Practitioner Family
DX: N17.9 Acute kidney failure, unspecified (principal); R80.9 Proteinuria, unspecified; R10.31 Right lower quadrant pain
CPT/HCPCS: 36415; 80053; 80069; 82570; 84156; 85025; 87497

== ENCOUNTER → 2021-06-16 | Outpatient (CLI) | payer MEDICARE, BC ==
[2021-06-16 10:35] LABS: Creatinine,Urine Random 127.9 mg/dL; Protein/Creatinine Ratio,Urine 0.07
[2021-06-16 22:32] LABS: African American GFR (CKD) 51.7 (60.0-200.0); Albumin 4.2 g/dL (3.80-4.90); Anion Gap 6.1 mmol/L (4.00-12.00); BUN/Creat Ratio 13.33 Ratio (12.00-20.00); Calcium 9.4 mg/dL (8.7-10.3); Carbon Dioxide 27.9 mmol/L (21.6-31.8); Non-African American GFR(CKD) 44.6 (60.0-200.0); Phosphorus 3.2 mg/dL (2.4-5.1); Potassium 4.7 mmol/L (3.5-5.5)
== END | disposition home or self-care (01) ==
LOC: LABWHC1 09:23
PROVIDERS: ATTEND Nurse Practitioner Family
DX: N17.9 Acute kidney failure, unspecified (principal); R80.9 Proteinuria, unspecified
CPT/HCPCS: 36415; 80069; 82570; 84156

== ENCOUNTER 2021-11-28 05:05 | Inpatient (IN) | payer MEDICARE, BC ==
[2021-11-28] MEDS ORDERED: PANTOPRAZOLE 40 MG/10 ML VIAL IVP STA (05:20)
[2021-11-28] MEDS ORDERED: MORPHINE SULFATE 4 MG/ML SYRINGE IV STA (05:20)
[2021-11-28] MEDS ORDERED: ONDANSETRON 4 MG/2 ML VIAL IVP STA (05:20)
[2021-11-28] MEDS ORDERED: SODIUM CHLORIDE 0.9% 1,000 ML IV STA ×2 (05:20→06:27)
--- NOTE | 2021-11-28 05:31 | ED ---
Weakness HPI - General Chief complaint: Nausea/Vomiting/Diarrhea Stated complaint: Vomiting, Nausea Time Seen by Provider: 11/28/21 05:20 Source: patient, RN notes reviewed, old records reviewed, Caregiver Mode of arrival: ambulatory Limitations: no limitations - History of Present Illness MD Complaint: generalized weakness, lack of energy, difficulty walking -: days(s) Location: generalized Severity: moderate Severity scale (1-10): 5 Improves with: none Worsens with: none Context: recent illness, history of similar Associated Symptoms: dark stools, fever/chills, nausea/vomiting - Related Data Home Medications Medication Instructions Recorded Confirmed Metoprolol Succinate [Toprol XL] 50 mg PO HS 07/20/15 03/10/21 Tacrolimus [Prograf] 1 mg PO HS 07/20/15 03/10/21 Tamsulosin [Flomax] 0.4 mg PO HS 07/20/15 03/10/21 dexAMETHasone ORAL [Hexadrol] 0.5 mg PO HS 07/20/15 03/10/21 mycophenolate mofetiL [Cellcept] 2,000 mg PO HS 07/20/15 03/10/21 Pravastatin Sodium [Pravachol] 10 mg PO HS 03/03/17 03/10/21 Aspirin EC [Ecotrin Low Dose] 81 mg PO HS 03/08/21 03/10/21 Previous Rx's Medication Instructions Recorded Acetaminophen Tab [Tylenol] 650 mg PO Q6HR PRN tab 03/14/21 Cefuroxime Axetil [Ceftin] 250 mg PO BID 10 Days #20 tab 03/14/21 Fluconazole [Diflucan] 100 mg PO DAILY #10 tab 03/14/21 Sodium Bicarbonate Tab 650 mg PO TID #90 tab 03/14/21 Allergies Allergy/AdvReac Type Severity Reaction Status Date / Time No Known Allergies Allergy Verified 11/28/21 05:12 Review of Systems ROS Statement: Those systems with pertinent positive or pertinent negative responses have been documented in the HPI. ROS Other: All systems not noted in ROS Statement are negative. 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 Past Anesthesia/Blood Transfusion Reactions: No Reported Reaction Additional Past Anesthesia/Blood Transfusion Reaction / Comment(s): Pt received blood in past without reaction. hx jaw fx- had surgery and has a plate. a little confusion when first waking up Past Psychological History: No Psychological Hx Reported Smoking Status: Never smoker Past Alcohol Use History: None Reported Past Drug Use History: None Reported - Past Family History Father Family Medical History: Cancer Additional Family Medical History / Comment(s): Father was healthy. He around the age of 83 yrs. Mother Family Medical History: Myocardial Infarction ([place]) Additional Family Medical History / Comment(s): Mother of a NE at the age of 83 yrs. General Exam Limitations: no limitations General appearance: alert, in no apparent distress Head exam: Present: atraumatic, normocephalic, normal inspection Eye exam: Present: normal appearance, PERRL, EOMI. Absent: scleral icterus, conjunctival injection, periorbital swelling ENT exam: Present: normal exam, mucous membranes moist Neck exam: Present: normal inspection. Absent: tenderness, meningismus, lymphadenopathy Respiratory exam: Present: normal lung sounds bilaterally. Absent: respiratory distress, wheezes, rales, rhonchi, stridor Cardiovascular Exam: Present: regular rate, normal rhythm, normal heart sounds. Absent: systolic murmur, diastolic murmur, rubs, gallop, clicks GI/Abdominal exam: Present: soft, normal bowel sounds. Absent: distended, tenderness, guarding, rebound, rigid Extremities exam: Present: normal inspection, full ROM, normal capillary refill. Absent: tenderness, pedal edema, joint swelling, calf tenderness Back exam: Present: normal inspection Neurological exam: Present: alert, oriented X3, CN II-XII intact Psychiatric exam: Present: normal affect, normal mood Skin exam: Present: warm, dry, intact, normal color. Absent: rash Course Vital Signs 11/28/21 05:08 Temperature 98.6 F Pulse Rate 84 Respiratory 20 Rate Blood Pressure 109/55 O2 Sat by Pulse 99 Oximetry Medical Decision Making - Lab Data Result diagrams: 11/28/21 05:42 11/28/21 05:42 Lab Results 11/28/21 11/28/21 11/28/21 Range/Units 05:42 05:42 05:42 WBC 2.3 L (3.8-10.6) k/uL RBC 4.99 (4.30-5.90) m/uL Hgb 13.5 (13.0-17.5) gm/dL Hct 42.4 (39.0-53.0) % MCV 85.0 (80.0-100.0) fL MCH 27.0 (25.0-35.0) pg MCHC 31.8 (31.0-37.0) g/dL RDW 13.1 (11.5-15.5) % Plt Count 161 (150-450) k/uL MPV 7.4 Neutrophils % 64 % Lymphocytes % 25 % Monocytes % 5 % Eosinophils % 3 % Basophils % 1 % Neutrophils # 1.5 (1.3-7.7) k/uL Lymphocytes # 0.6 L (1.0-4.8) k/uL Monocytes # 0.1 (0-1.0) k/uL Eosinophils # 0.1 (0-0.7) k/uL Basophils # 0.0 (0-0.2) k/uL PT 10.7 (9.0-12.0) sec INR 1.0 (<1.2) APTT 25.6 (22.0-30.0) sec Sodium 129 L (137-145) mmol/L Potassium 6.2 H* (3.5-5.1) mmol/L Chloride 103 (98-107) mmol/L Carbon Dioxide 20 L (22-30) mmol/L Anion Gap 6 mmol/L BUN 19 (9-20) mg/dL Creatinine 1.65 H (0.66-1.25) mg/dL Est GFR (CKD-EPI)AfAm 46 (>60 ml/min/1.73 sqM) Est GFR (CKD-EPI)NonAf 40 (>60 ml/min/1.73 sqM) Glucose 87 (74-99) mg/dL Calcium 8.5 (8.4-10.2) mg/dL Total Bilirubin 1.7 H (0.2-1.3) mg/dL AST 59 (17-59) U/L ALT 14 (4-49) U/L Alkaline Phosphatase 33 L (38-126) U/L Troponin I (0.000-0.034) ng/mL Total Protein 7.2 (6.3-8.2) g/dL Albumin 3.9 (3.5-5.0) g/dL Amylase 108 (30-110) U/L Lipase 153 (23-300) U/L 11/28/21 Range/Units 05:42 WBC (3.8-10.6) k/uL RBC (4.30-5.90) m/uL Hgb (13.0-17.5) gm/dL Hct (39.0-53.0) % MCV (80.0-100.0) fL MCH (25.0-35.0) pg MCHC (31.0-37.0) g/dL RDW (11.5-15.5) % Plt Count (150-450) k/uL MPV Neutrophils % % Lymphocytes % % Monocytes % % Eosinophils % % Basophils % % Neutrophils # (1.3-7.7) k/uL Lymphocytes # (1.0-4.8) k/uL Monocytes # (0-1.0) k/uL Eosinophils # (0-0.7) k/uL Basophils # (0-0.2) k/uL PT (9.0-12.0) sec INR (<1.2) APTT (22.0-30.0) sec Sodium (137-145) mmol/L Potassium (3.5-5.1) mmol/L Chloride (98-107) mmol/L Carbon Dioxide (22-30) mmol/L Anion Gap mmol/L BUN (9-20) mg/dL Creatinine (0.66-1.25) mg/dL Est GFR (CKD-EPI)AfAm (>60 ml/min/1.73 sqM) Est GFR (CKD-EPI)NonAf (>60 ml/min/1.73 sqM) Glucose (74-99) mg/dL Calcium (8.4-10.2) mg/dL Total Bilirubin (0.2-1.3) mg/dL AST (17-59) U/L ALT (4-49) U/L Alkaline Phosphatase (38-126) U/L Troponin I 0.033 (0.000-0.034) ng/mL Total Protein (6.3-8.2) g/dL Albumin (3.5-5.0) g/dL Amylase (30-110) U/L Lipase (23-300) U/L Disposition Clinical Impression: Dehydration, Diarrhea, Acute kidney injury, Hyperkalemia Disposition: ADMITTED IP TO THIS [facility] Condition: Serious Is patient prescribed a controlled substance at d/c from ED?: No Referrals: Ron Edwards DO [Primary Care Provider] - 1-2 days
[2021-11-28 05:48] LABS: Basophils % (A) 1 %; Eosinophils # (A) 0.1 k/uL (0-0.7); Eosinophils % (A) 3 %; HCT 42.4 % (39.0-53.0); HGB 13.5 gm/dL (13.0-17.5); Lymphocytes # (A) 0.6 k/uL (1.0-4.8); Lymphocytes % (A) 25 %; MCHC 31.8 g/dL (31.0-37.0); Mean Platelet Volume 7.4; Monocytes # (A) 0.1 k/uL (0-1.0); Monocytes % (A) 5 %; Neutrophils # (A) 1.5 k/uL (1.3-7.7); Neutrophils % (A) 64 %; Platelet Count 161 k/uL (150-450); RBC 4.99 m/uL (4.30-5.90); RDW 13.1 % (11.5-15.5); WBC 2.3 k/uL (3.8-10.6)
[2021-11-28 05:59] LABS: Partial Thromboplastin Time 25.6 sec (22.0-30.0); Prothrombin Time 10.7 sec (9.0-12.0)
[2021-11-28 06:13] LABS: Albumin 3.9 g/dL (3.5-5.0); Calcium 8.5 mg/dL (8.4-10.2); Total Bilirubin 1.7 mg/dL (0.2-1.3); Total Protein 7.2 g/dL (6.3-8.2)
[2021-11-28 06:16] LABS: Potassium 6.2 mmol/L (3.5-5.1)
[2021-11-28] MEDS ORDERED: ONDANSETRON 4 MG/2 ML VIAL IVP PRN (06:24)
[2021-11-28] MEDS ORDERED: NALOXONE 0.4 MG/ML 1 ML VIAL IV PRN (06:24)
[2021-11-28] MEDS ORDERED: INSULIN REGULAR 100 UNIT/ML VIAL (IV) IV ONE (06:24)
[2021-11-28] MEDS ORDERED: DEXTROSE 50% SYRINGE 50 ML IVP STA (06:24)
[2021-11-28] MEDS ORDERED: MORPHINE SULFATE 4 MG/ML SYRINGE IV PRN (06:24)
[2021-11-28] MEDS ORDERED: SODIUM BICARB 8.4% 50 ML SYR (1 MEQ/ML) IV STA (06:26)
[2021-11-28] MEDS ORDERED: SODIUM POLYSTYRENE SULFONATE 15 GM/60 ML BOTTLE PO STA (06:26)
[2021-11-28] MEDS ORDERED: SODIUM CHLORIDE 0.9% 500 ML 500 ML IV STA (06:27)
[2021-11-28] MEDS: SODIUM CHLORIDE 0.9% 1,000 ML IV SCH ×2 (08:11→14:13)
--- NOTE | 2021-11-28 08:37 | US ---
EXAMINATION TYPE: US gallbladder DATE OF EXAM: 11/28/2021 COMPARISON: CT, US CLINICAL HISTORY: pain. EC patient with nausea and vomiting, diarrhea, and COVID diagnosis determined after US completed; 2nd liver transplant 2003 at [facility]. EXAM MEASUREMENTS: Liver Length: 14.8 cm Gallbladder Wall: not identified CBD: 0.5 cm Right Kidney: 12.4 x 8.7 x 6.4 cm Pancreas: limitedly seen as partially obscured by bowel gas Liver: MPV flow is to liver, MICHAEL patent; hyperechoic merida of portal veins left lobe may be related to surgical history. Gallbladder: not identified in multiple views; bowel noted at gallbladder fossa; question whether ga llbladder was removed at time of liver transplant in 2003. Evidence for sonographic Luna's sign: tender here but kidney cysts are seen CBD: wnl Right Kidney: multiple enlarged renal cyst appearance throughout kidney with largest mid pole medial = 5.0 x 6.0 x 5.2cm IMPRESSION: 1. Gallbladder not identified. The findings raise the question of cholecystectomy. 2. Multiple large right renal cysts.
--- NOTE | 2021-11-28 09:29 | P.HPIM ---
History of Present Illness H&P Date: 11/28/21 Chief Complaint: weakness, n/v 76 years old male with past medical history significant for liver transplant 2 presents to the emergency department with 2 days worsening nausea vomiting and diarrhea. Patient stated that he lives with his nephew at home and has been independent in all his daily activities became weaker since the nausea vomiting and diarrhea started 2 days ago to the point where he decided to come into the emergency department. Patient stated that he was not able to hold any solid food down was able to drink sips of water and continue to take his medication but stated it was very difficult to keep it up due to the weakness and decided to come into the emergency department where he was found to have COVID-19 infection. Patient is vaccinated with most recent booster on 06/21/2020 to 1. Patient is alert and oriented 4 Gouda fearing denying chest pain shortness breath and upper respiratory symptoms dizziness lightheadedness or blurry vision. 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 Past Anesthesia/Blood Transfusion Reactions: No Reported Reaction Additional Past Anesthesia/Blood Transfusion Reaction / Comment(s): Pt received blood in past without reaction. hx jaw fx- had surgery and has a plate. a little confusion when first waking up Past Psychological History: No Psychological Hx Reported Smoking Status: Never smoker Past Alcohol Use History: None Reported Past Drug Use History: None Reported - Past Family History Father Family Medical History: Cancer Additional Family Medical History / Comment(s): Father was healthy. He around the age of 83 yrs. Mother Family Medical History: Myocardial Infarction ([place]) Additional Family Medical History / Comment(s): Mother of a [place] at the age of 83 yrs. Medications and Allergies Home Medications Medication Instructions Recorded Confirmed Type Metoprolol Succinate [Toprol XL] 50 mg PO HS 07/20/15 11/28/21 History Tacrolimus [Prograf] 1 mg PO HS 07/20/15 11/28/21 History Tamsulosin [Flomax] 0.4 mg PO HS 07/20/15 11/28/21 History dexAMETHasone ORAL [Hexadrol] 0.5 mg PO HS 07/20/15 11/28/21 History mycophenolate mofetiL [Cellcept] 2,000 mg PO HS 07/20/15 11/28/21 History Pravastatin Sodium [Pravachol] 10 mg PO HS 03/03/17 11/28/21 History Aspirin EC [Ecotrin Low Dose] 81 mg PO HS 03/08/21 11/28/21 History Latanoprost [Xalatan 0.005%] 1 drop BOTH EYES HS 11/28/21 11/28/21 History Allergies Allergy/AdvReac Type Severity Reaction Status Date / Time No Known Allergies Allergy Verified 11/28/21 07:29 Physical Exam Vitals: Vital Signs Temp Pulse Resp BP Pulse Ox 11/28/21 08:22 98.2 F 72 18 121/57 98 11/28/21 06:12 82 20 112/72 98 11/28/21 05:08 98.6 F 84 20 109/55 99 Intake and Output 11/27/21 11/28/21 11/28/21 22:59 06:59 14:59 Other: Weight 90.718 kg Gen.: in stated age, no acute distress Heart: Normal S1-S2 Lungs: Clear to auscultation bilaterally Abdomen: Soft, no tenderness, positive bowel sounds in all 4 quadrant no guarding or rebound Skin: No new rash Psych: Alert and oriented 3 Neuro: No focal deficit Results CBC & Chem 7: 11/28/21 05:42 11/28/21 06:42 Labs: Abnormal Lab Results - Last 24 Hours (Table) 11/28/21 11/28/21 11/28/21 Range/Units 05:42 05:42 06:39 WBC 2.3 L (3.8-10.6) k/uL Lymphocytes # 0.6 L (1.0-4.8) k/uL Sodium 129 L (137-145) mmol/L Potassium 6.2 H* (3.5-5.1) mmol/L Carbon Dioxide 20 L (22-30) mmol/L Creatinine 1.65 H (0.66-1.25) mg/dL Total Bilirubin 1.7 H (0.2-1.3) mg/dL Alkaline Phosphatase 33 L (38-126) U/L Coronavirus (PCR) Detected A (Not Detectd) Assessment and Plan Assessment: 1. COVID-19 infection. 2. Vaccinated with posterior 06/21/2021. 3. Intractable nausea vomiting and diarrhea. 4. Acute kidney injury secondary to above. 5. Hyperkalemia, resolving. 6. Multiple renal cysts on ultrasound of the abdomen. 7. History of liver transplant status post transplant 2. 8. Immunosuppression status. 9. Leukopenia due to COVID-19. Patient will be maintained on his transplant medication that he has been tolerating without difficulties. Would continue monitoring kidney function closely and I consult up with nephrology who is aware with the patient's status. We would consider consultation for GI based on clinical progress. Patient is denying any upper respiratory symptoms or shortness of breath vaccinated and received his booster and seems to be having mild to moderate disease at this point. We will continue encouraging oral intake advance diet as tolerated continue with gentle hydration at 125 mL/h of normal saline at this point follow-up with nephrology recommendation continue with his beta ingrid dose with holding parameters and that was discussed with nursing staff at the bedside. I would like to start patients on Lovenox 40 mg daily for DVT prophylaxis as his kidney function has improved significantly since yesterday. I would like to monitor hemodynamic closely consider consultation with infectious disease based on clinical progress. She'll patient continued to be hemodynamically stable with improvement in his kidney function and resolution of nausea vomiting and diarrhea patient will be considered for discharge in the morning based on clinical progress. Prognosis remained guarded at this point.
[2021-11-28] MEDS: ENOXAPARIN 40 MG/0.4 ML SYRINGE SQ SCH (09:35)
--- NOTE | 2021-11-28 10:41 | P.NPCON ---
History of Present Illness - Reason for Consult chronic renal failure - History of Present Illness Reason for consultation: Acute kidney injury on chronic kidney disease History of present illness: Patient is a 76-year-old male seen in renal consultation for acute kidney injury on chronic kidney disease. Patient has chronic kidney disease stage IIIB with baseline creatinine near 1.5. Etiology is long-term calcineurin inhibitor use. Patient presented to the hospital with vomiting and diarrhea going on for about 2 days. He also states that he took Advil yesterday. Patient is positive for coronary 19 infection. Denies chest pain or shortness of breath. Patient says vomiting diarrhea mostly resolved. Oral intake has been poor the last few days. 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 The transplant was done a year Monday of [place]. He is maintained on mycophenolate, Prograf as well as Hexadrol for immunosuppression. No hematuria. No difficulty with urination. No history of diabetes. Potassium level was 6.2 on admission. He was treated with IV sodium bicarb, IV insulin with D50 as well as Kayexalate. Repeat potassium came back as 4.1. Vital signs are stable. General: The patient appeared well nourished and normally developed. HEENT: Head exam is unremarkable. LUNGS: Breath sounds decreased. HEART: Rate and Rhythm are regular. ABDOMEN: Soft, no distention. EXTREMITITES: No edema. 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 Past Anesthesia/Blood Transfusion Reactions: No Reported Reaction Additional Past Anesthesia/Blood Transfusion Reaction / Comment(s): Pt received blood in past without reaction. hx jaw fx- had surgery and has a plate. a little confusion when first waking up Past Psychological History: No Psychological Hx Reported Smoking Status: Never smoker Past Alcohol Use History: None Reported Past Drug Use History: None Reported - Past Family History Father Family Medical History: Cancer Additional Family Medical History / Comment(s): Father was healthy. He around the age of 83 yrs. Mother Family Medical History: Myocardial Infarction ([place]) Additional Family Medical History / Comment(s): Mother of a [place] at the age of 83 yrs. Medications and Allergies Home Medications Medication Instructions Recorded Confirmed Type Metoprolol Succinate [Toprol XL] 50 mg PO HS 07/20/15 11/28/21 History Tacrolimus [Prograf] 1 mg PO HS 07/20/15 11/28/21 History Tamsulosin [Flomax] 0.4 mg PO HS 07/20/15 11/28/21 History dexAMETHasone ORAL [Hexadrol] 0.5 mg PO HS 07/20/15 11/28/21 History mycophenolate mofetiL [Cellcept] 2,000 mg PO HS 07/20/15 11/28/21 History Pravastatin Sodium [Pravachol] 10 mg PO 03/03/17 11/28/21 History Aspirin EC [Ecotrin Low Dose] 81 mg PO HS 03/08/21 11/28/21 History Latanoprost [Xalatan 0.005%] 1 drop BOTH EYES HS 11/28/21 11/28/21 History Allergies Allergy/AdvReac Type Severity Reaction Status Date / Time No Known Allergies Allergy Verified 11/28/21 07:29 Physical Exam Vitals: Vital Signs Temp Pulse Pulse Resp BP BP Pulse Ox 11/28/21 10:24 98.1 F 82 18 128/69 95 11/28/21 08:22 98.2 F 72 18 121/57 98 11/28/21 06:12 82 20 112/72 98 11/28/21 05:08 98.6 F 84 20 109/55 99 Intake and Output 11/27/21 11/28/21 11/28/21 22:59 06:59 14:59 Other: Weight 90.718 kg 90.718 kg Results - Lab Results Most recent lab results Calcium 8.5 mg/dL (8.4-10.2) 11/28/21 05:42 11/28/21 05:42 11/28/21 06:42 Assessment and Plan Plan: Assessment: 1. Acute kidney injury mostly prerenal due to hypovolemia from vomiting and diarrhea. Creatinine 1.65 on admission. 2. Chronic kidney disease stage III. Baseline creatinine near 1.5 secondary to long-term calcineurin inhibitor use. 3. Status post liver transplant in 2013 [facility]. 4. Vomiting and diarrhea possibly from COVID-19 infection versus gastroenteritis. Improved. 5. COVID-19 infection. On room air. 6. Hyperkalemia secondary to acute kidney injury, acidosis as well as Prograf. Medically treated. Better. 7. Metabolic acidosis secondary to acute kidney injury and diarrhea. Plan: Decrease rate of normal saline to 75 mL an hour. Check Prograf level. Repeat potassium level this afternoon. Add oral sodium bicarb. Continue to monitor renal function and urine output. Thank you for the consultation. I will continue to follow the patient with you during his hospital stay.
[2021-11-28] MEDS: SODIUM BICARBONATE TAB 650 MG TAB PO SCH ×2 (11:03→20:06)
[2021-11-28] MEDS: TAMSULOSIN 0.4 MG CAP.ER.24H PO SCH (20:06)
[2021-11-28] MEDS: PRAVASTATIN SODIUM 20 MG TAB PO SCH (20:06)
[2021-11-28] MEDS: TACROLIMUS 1 MG CAP PO SCH (20:06)
[2021-11-28] MEDS: ASPIRIN 81 MG PO SCH (20:07)
[2021-11-28 20:13] LABS: Glucose,Whole Blood 100 mg/dL (75-99)
[2021-11-28] MEDS: LATANOPROST 0.005% OPHTH DROPS 2.5 ML BTL BOTH EYES SCH (21:27)
[2021-11-28] MEDS: METOPROLOL SUCCINATE (ER) 50 MG TAB.ER.24H PO SCH (21:27)
[2021-11-29] MEDS: SODIUM CHLORIDE 0.9% 1,000 ML IV SCH ×3 (04:59→20:27)
[2021-11-29 07:04] LABS: Glucose,Whole Blood 98 mg/dL (75-99)
[2021-11-29 09:11] LABS: Basophils # (A) 0 X 10*3/uL (0.00-0.10); Basophils % (A) 0 %; Eosinophils # (A) 0.03 X 10*3/uL (0.04-0.35); Eosinophils % (A) 1.5 %; HCT 36.8 % (39.6-50.0); HGB 11.4 g/dL (13.0-17.0); Lymphocytes # (A) 0.33 X 10*3/uL (0.90-5.00); Lymphocytes % (A) 16.9 %; MCH 26.3 pg (27.0-32.0); MCV 84.8 fL (80.0-97.0); Mean Platelet Volume 9.7 fL (9.5-12.2); Monocytes # (A) 0.19 X 10*3/uL (0.20-1.00); Monocytes % (A) 9.7 %; Neutrophils % (A) 71.9 %; Platelet Count 144 X 10*3/uL (140-440); RBC 4.34 X 10*6/uL (4.40-5.60); RDW 12.9 % (11.5-14.5); WBC 1.95 X 10*3/uL (4.50-10.00)
[2021-11-29 09:13] LABS: Albumin 3.4 g/dL (3.8-4.9); Albumin/Globulin Ratio 2.13 (1.60-3.17); Anion Gap 10.5 mmol/L (10.00-18.00); BUN/Creat Ratio 8.85 Ratio (12.00-20.00); Blood Urea Nitrogen 11.5 mg/dL (9.0-27.0); Calcium 7.8 mg/dL (8.7-10.3); Carbon Dioxide 18.5 mmol/L (20.0-27.5); Globulin 1.6 g/dL (1.6-3.3); Magnesium 1.5 mg/dL (1.5-2.4); Non-African American GFR(CKD) 52.6 (60.0-200.0); Phosphorus 2.4 mg/dL (2.4-5.1); Potassium 4.9 mmol/L (3.5-5.5); Total Bilirubin 0.3 mg/dL (0.30-1.20)
--- NOTE | 2021-11-29 09:38 | P.PN ---
Subjective Patient is seen in follow-up for acute kidney injury and chronic kidney disease. Renal function improved. Potassium level normal. On room air. Has been voiding. Hemodynamically stable. Vital signs are stable. General: The patient appeared well nourished and normally developed. HEENT: Head exam is unremarkable. LUNGS: Breath sounds decreased. HEART: Rate and Rhythm are regular. ABDOMEN: Soft, no distention. EXTREMITITES: No edema. Objective - Vital Signs Vital signs: Vital Signs Temp 98.0 F 11/29/21 06:17 Pulse 65 11/29/21 06:17 Resp 16 11/29/21 06:17 BP 120/69 11/29/21 06:17 Pulse Ox 98 11/29/21 06:17 Intake & Output 11/28/21 11/29/21 11/29/21 18:59 06:59 18:59 Intake Total 600 Balance 600 Weight 90.718 kg Intake: Intake, IV Titration 600 Amount Sodium Chloride 0.9% 1, 600 000 ml @ 75 mls/hr IV . [id number] [facility] Rx#:[id number] Other: Voiding Method Toilet Urinal # Voids 4 - Labs CBC & Chem 7: 11/29/21 05:03 11/29/21 05:03 Labs: Abnormal Lab Results - Last 24 Hours (Table) 11/28/21 11/29/21 11/29/21 Range/Units 20:10 05:03 05:03 WBC 1.95 L (4.50-10.00) X 10*3/uL RBC 4.34 L (4.40-5.60) X 10*6/uL Hgb 11.4 L (13.0-17.0) g/dL Hct 36.8 L (39.6-50.0) % MCH 26.3 L (27.0-32.0) pg MCHC 31.0 L (32.0-37.0) g/dL Neutrophils # 1.40 L (1.80-7.70) X 10*3/uL Lymphocytes # 0.33 L (0.90-5.00) X 10*3/uL Monocytes # 0.19 L (0.20-1.00) X 10*3/uL Eosinophils # 0.03 L (0.04-0.35) X 10*3/uL Carbon Dioxide 18.5 L (20.0-27.5) mmol/L Est GFR (CKD-EPI)NonAf 52.6 L (60.0-200.0) BUN/Creatinine Ratio 8.85 L (12.00-20.00) Ratio POC Glucose (mg/dL) 100 H (75-99) mg/dL Calcium 7.8 L (8.7-10.3) mg/dL Total Protein 5.0 L (6.2-8.2) g/dL Albumin 3.4 L (3.8-4.9) g/dL Assessment and Plan Plan: Assessment: 1. Acute kidney injury mostly prerenal due to hypovolemia from vomiting and diarrhea. Creatinine 1.65 on admission - 1.3 today. 2. Chronic kidney disease stage IIIa. Baseline creatinine near 1.5 secondary to long-term calcineurin inhibitor use. 3. Status post liver transplant in 2013 at [facility]. 4. Vomiting and diarrhea possibly from COVID-19 infection versus gastroenteritis. Improved. 5. COVID-19 infection. On room air. 6. Hyperkalemia secondary to acute kidney injury, acidosis as well as Prograf. Medically treated. Better. 7. Metabolic acidosis secondary to acute kidney injury and diarrhea. On oral bicarbonate. Plan: Maintain normal saline at 75 mL an hour. Follow-up Prograf level. Continue to monitor renal function and urine output.
[2021-11-29] MEDS: ENOXAPARIN 40 MG/0.4 ML SYRINGE SQ SCH (10:39)
[2021-11-29] MEDS: SODIUM BICARBONATE TAB 650 MG TAB PO SCH ×2 (10:39→20:26)
[2021-11-29 11:29] LABS: Glucose,Whole Blood 97 mg/dL (75-99)
--- NOTE | 2021-11-29 14:34 | P.PN ---
Subjective Progress Note Date: 11/29/21 HISTORY OF PRESENT ILLNESS This is a 76-year-old male patient male with past medical history significant for liver transplant 2 presents to the emergency department with 2 days wor sening nausea vomiting and diarrhea. Patient stated that he lives with his nephew at home and has been independent in all his daily activities became weaker since the nausea vomiting and diarrhea started 2 days ago to the point where he decided to come into the emergency department. Patient stated that he was not able to hold any solid food down was able to drink sips of water and continue to take his medication but stated it was very difficult to keep it up due to the weakness and decided to come into the emergency department where he was found to have COVID-19 infection. Patient is vaccinated with most recent booster on 06/21/2020 to 1. Patient is alert and oriented 4 Gouda fearing de nying chest pain shortness breath and upper respiratory symptoms dizziness lightheadedness or blurry vision. Patient is denying tobacco alcohol or drug abuse and said that he is up-to-date on his doctor's visit and compliant with his medical regimen 11/29: Patient is followed by nephrology for acute kidney injury and chronic kidney disease stage III a with recommendations to maintain normal saline at 75 mL per hour and follow up on Prograf level. Repeat blood work today reveals WBC 1.9, hemoglobin 11.4. Creatinine 1.3 and BUN 11. Blood sugars are running between 97 and 100. Phosphorus 2.4, magnesium 1.5, potassium 4.9. No vomiting. Plan to monitor patient overnight and discharged home tomorrow. REVIEW OF SYSTEMS Constitutional: No fever, no chills, no night sweats. No weight change. No weakness, fatigue or lethargy. No daytime sleepiness. EENT: No headache. No blurred vision or double vision, no loss of vision. No loss of Hearing, no ringing in the ears, no dizziness. No nasal drainage or congestion. No epistaxis. No sore throat. Lungs: No shortness of breath, cough, no sputum production. No wheezing. Cardiovascular: No chest pain, no lower extremity edema. No palpitations. No paroxysmal nocturnal dyspnea. No orthopnea. No lightheadedness or dizziness. No syncopal episodes. Abdominal: No abdominal pain. No nausea, resolved vomiting. No diarrhea. No constipation. No bloody or tarry stools. No loss of appetite. Genitourinary: No dysuria, increased frequency, urgency. No urinary retention. Musculoskeletal: No myalgias. No muscle weakness, no gait dysfunction, no frequent falls. No back pain. No neck pain. Integumentary: No wounds, no lesions. No rash or pruritus. No unusual bruising. No change in hair or nails. Neurologic: No aphasia. No facial droop. No change in mentation. No head injury. No headache. No paralysis. No paresthesia. Psychiatric: No depression. No anxiety. No mood swings. Endocrine: No abnormal blood sugars. No weight change. No excessive sweating or thirst. No cold intolerance. PHYSICAL EXAMINATION Gen: This is a 76-year-old male, resting bed appears to be comfortable. HEENT: Head is atraumatic, normocephalic. Pupils equal, round. Sclerae is anicteric. NECK: Supple. No JVD. No lymphadenopathy. No thyromegaly. LUNGS: Clear to auscultation. No wheezes or rhonchi. No intercostal retractions. HEART: Regular rate and rhythm. No murmur. ABDOMEN: Soft. Bowel sounds are present. No masses. No tenderness. EXTREMITIES: No pedal edema. No calf tenderness. NEUROLOGICAL: Patient is awake, alert and oriented x3. Cranial nerves 2 through 12 are grossly intact. ASSESSMENT AND PLAN 1. COVID-19 infection. 2. Vaccinated with posterior 06/21/2021. 3. Intractable nausea vomiting and diarrhea. 4. Acute kidney injury secondary to above. 5. Hyperkalemia, resolving. 6. Multiple renal cysts on ultrasound of the abdomen. 7. History of liver transplant status post transplant 2. 8. Immunosuppression status. 9. Leukopenia due to COVID-19. Patient is denying any upper respiratory symptoms or shortness of breath vaccinated and received his booster and seems to be having mild to moderate disease at this point. We will continue encouraging oral intake advance diet as tolerated continue with gentle hydration at 75 mL/h of normal saline per nephrology recommendation continue with his beta ingrid dose with holding parameters and that was discussed with nursing staff at the bedside. . DISCHARGE PLAN Home on Monday. Impression and plan of care have been directed as dictated by the signing physic ian. Coty Anthony nurse practitioner acting as scribe for signing physician. Objective - Vital Signs Vital signs: Vital Signs Temp 98.0 F 11/29/21 06:17 Pulse 65 11/29/21 06:17 Resp 16 11/29/21 06:17 BP 120/69 11/29/21 06:17 Pulse Ox 98 11/29/21 06:17 Intake & Output 11/28/21 11/29/21 11/29/21 18:59 06:59 18:59 Intake Total 600 Balance 600 Weight 90.718 kg Intake: Intake, IV Titration 600 Amount Sodium Chloride 0.9% 1, 600 000 ml @ 75 mls/hr IV . [id number] [facility] Rx#:[id number] Other: Voiding Method Toilet Urinal # Voids 4 - Labs CBC & Chem 7: 11/29/21 05:03 11/29/21 05:03 Labs: Abnormal Lab Results - Last 24 Hours (Table) 11/28/21 11/29/21 11/29/21 Range/Units 20:10 05:03 05:03 WBC 1.95 L (4.50-10.00) X 10*3/uL RBC 4.34 L (4.40-5.60) X 10*6/uL Hgb 11.4 L (13.0-17.0) g/dL Hct 36.8 L (39.6-50.0) % MCH 26.3 L (27.0-32.0) pg MCHC 31.0 L (32.0-37.0) g/dL Neutrophils # 1.40 L (1.80-7.70) X 10*3/uL Lymphocytes # 0.33 L (0.90-5.00) X 10*3/uL Monocytes # 0.19 L (0.20-1.00) X 10*3/uL Eosinophils # 0.03 L (0.04-0.35) X 10*3/uL Carbon Dioxide 18.5 L (20.0-27.5) mmol/L Est GFR (CKD-EPI)NonAf 52.6 L (60.0-200.0) BUN/Creatinine Ratio 8.85 L (12.00-20.00) Ratio POC Glucose (mg/dL) 100 H (75-99) mg/dL Calcium 7.8 L (8.7-10.3) mg/dL Total Protein 5.0 L (6.2-8.2) g/dL Albumin 3.4 L (3.8-4.9) g/dL
[2021-11-29] MEDS: METOPROLOL SUCCINATE (ER) 50 MG TAB.ER.24H PO SCH (20:26)
[2021-11-29] MEDS: ASPIRIN 81 MG PO SCH (20:26)
[2021-11-29] MEDS: LATANOPROST 0.005% OPHTH DROPS 2.5 ML BTL BOTH EYES SCH (20:26)
[2021-11-29] MEDS: PRAVASTATIN SODIUM 20 MG TAB PO SCH (20:26)
[2021-11-29] MEDS: TAMSULOSIN 0.4 MG CAP.ER.24H PO SCH (20:26)
[2021-11-29] MEDS: TACROLIMUS 1 MG CAP PO SCH (20:26)
[2021-11-30] MEDS: ENOXAPARIN 40 MG/0.4 ML SYRINGE SQ SCH (08:57)
[2021-11-30] MEDS: SODIUM BICARBONATE TAB 650 MG TAB PO SCH (08:57)
[2021-11-30 10:14] VITALS: BP 117/66; PULSE 56; RESP 18; TEMP 98.4
--- NOTE | 2021-11-30 11:03 | P.PN ---
Subjective Patient is seen in follow-up for acute kidney injury and chronic kidney disease. Renal function improved. Potassium level normal as of yesterday. On room air. Has been voiding. Hemodynamically stable. Vital signs are stable. General: The patient appeared well nourished and normally developed. HEENT: Head exam is unremarkable. LUNGS: Breath sounds decreased. HEART: Rate and Rhythm are regular. ABDOMEN: Soft, no distention. EXTREMITITES: No edema. Objective - Vital Signs Vital signs: Vital Signs Temp 98.4 F 11/30/21 10:00 Pulse 56 L 11/30/21 10:00 Resp 18 11/30/21 10:00 BP 117/66 11/30/21 10:00 Pulse Ox 97 11/30/21 10:00 Intake & Output 11/29/21 11/30/21 11/30/21 18:59 06:59 18:59 Other: Voiding Method Toilet Urinal # Voids 4 - Labs CBC & Chem 7: 11/29/21 05:03 11/29/21 05:03 Assessment and Plan Plan: Assessment: 1. Acute kidney injury mostly prerenal due to hypovolemia from vomiting and diarrhea. Creatinine 1.65 on admission - 1.3 yesterday. 2. Chronic kidney disease stage IIIa. Baseline creatinine near 1.5 secondary to long-term calcineurin inhibitor use. 3. Status post liver transplant in 2013 at [facility]. 4. Vomiting and diarrhea possibly from COVID-19 infection versus gastroenteritis. Improved. 5. COVID-19 infection. On room air. 6. Hyperkalemia secondary to acute kidney injury, acidosis as well as Prograf. Medically treated. Better. 7. Metabolic acidosis secondary to acute kidney injury and diarrhea. On oral bicarbonate. Plan: Hep-Lock IV fluids. Follow-up Prograf level. Continue to monitor renal function and urine output. Morning labs pending.
[2021-11-30 11:47] LABS: African American GFR (CKD) 67.2 (60.0-200.0); Anion Gap 8.4 mmol/L (10.00-18.00); BUN/Creat Ratio 9.58 Ratio (12.00-20.00); Blood Urea Nitrogen 11.5 mg/dL (9.0-27.0); Calcium 7.7 mg/dL (8.7-10.3); Carbon Dioxide 18.6 mmol/L (20.0-27.5); Magnesium 1.6 mg/dL (1.5-2.4); Potassium 4.6 mmol/L (3.5-5.5)
--- NOTE | 2021-11-30 11:49 | P.DS ---
Providers Date of admission: 11/28/21 06:25 Expected date of discharge: 11/30/21 Attending physician: Micah Schaeffer Consults: 11/28/21 08:41 Consult Physician Urgent Consulting Provider: Gil Saeed Consult Reason/Comments: hyperkalemia Do you want consulting provider notified?: Already Contacted [facility]: HISTORY OF PRESENT ILLNESS This is a 76-year-old male patient of Dr. Edwards with past medical history significant for liver transplant 2 presents to the emergency department with 2 days worsening nausea vomiting and diarrhea. Patient stated that he lives with his nephew at home and has been independent in all his daily activities became weaker since the nausea vomiting and diarrhea started 2 days ago to the point where he decided to come into the emergency department. Patient stated that he was not able to hold any solid food down was able to drink sips of water and continue to take his medication but stated it was very difficult to keep it up due to the weakness and decided to come into the emergency department where he was found to have COVID-19 infection. Patient is vaccinated with most recent booster on 06/21/2020 to 1. Patient is alert and oriented 4 Gouda fearing denying chest pain shortness breath and upper respiratory symptoms dizziness lightheadedness or blurry vision. Patient is denying tobacco alcohol or drug abuse and said that he is up-to-date on his doctor's visit and compliant with his medical regimen 11/29: Patient is followed by nephrology for acute kidney injury and chronic kidney disease stage III a with recommendations to maintain normal saline at 75 mL per hour and follow up on Prograf level. Repeat blood work today reveals WBC 1.9, hemoglobin 11.4. Creatinine 1.3 and BUN 11. Blood sugars are running between 97 and 100. Phosphorus 2.4, magnesium 1.5, potassium 4.9. No vomiting. Plan to monitor patient overnight and discharged home tomorrow. 11/30: Repeat blood work reveals sodium 136, potassium 4.6, chloride 109, CO2 18, BUN 11.5 and creatinine 1.2. Calcium 7.7. Magnesium 1.6. Patient has been afebrile, heart rate in the 50s and 60s, blood pressure 117/66, pulse ox 97% on room air. He has been followed closely by nephrology. No new concerns from the patient. Patient will be discharged home today in stable condition. DISCHARGE DIAGNOSES 1. COVID-19 infection. 2. Vaccinated with booster 06/21/2021. 3. Intractable nausea vomiting and diarrhea, resolved. 4. Acute kidney injury with chronic kidney disease IIIa. 5. Hyperkalemia, resolved. 6. Multiple renal cysts on ultrasound of the abdomen. 7. History of liver transplant status post transplant 2. 8. Immunosuppression status. 9. Leukopenia due to COVID-19. DISCHARGE PLAN Home Greater than 35 minutes was utilized and coordinating patient's discharge. Impression and plan of care have been directed as dictated by the signing physician. Coty Anthony nurse practitioner acting as scribe for signing physician. Patient Condition at Discharge: Good Plan - Discharge Summary Discharge Rx Participant: No New Discharge Prescriptions: New Sodium Bicarbonate Tab 650 mg PO BID tab Continue dexAMETHasone ORAL [Hexadrol] 0.5 mg PO HS Tamsulosin [Flomax] 0.4 mg PO HS Tacrolimus [Prograf] 1 mg PO HS mycophenolate mofetiL [Cellcept] 2,000 mg PO HS Metoprolol Succinate [Toprol XL] 50 mg PO HS Pravastatin Sodium [Pravachol] 10 mg PO HS Aspirin EC [Ecotrin Low Dose] 81 mg PO HS Latanoprost [Xalatan 0.005%] 1 drop BOTH EYES HS Discharge Medication List Metoprolol Succinate [Toprol XL] 50 mg PO HS 07/20/15 [History] Tacrolimus [Prograf] 1 mg PO HS 07/20/15 [History] Tamsulosin [Flomax] 0.4 mg PO HS 07/20/15 [History] dexAMETHasone ORAL [Hexadrol] 0.5 mg PO HS 07/20/15 [History] mycophenolate mofetiL [Cellcept] 2,000 mg PO HS 07/20/15 [History] Pravastatin Sodium [Pravachol] 10 mg PO HS 03/03/17 [History] Aspirin EC [Ecotrin Low Dose] 81 mg PO HS 03/08/21 [History] Latanoprost [Xalatan 0.005%] 1 drop BOTH EYES HS 11/28/21 [History] Sodium Bicarbonate Tab 650 mg PO BID tab 11/30/21 [Rx] Follow up Appointment(s)/Referral(s): Ron Edwards DO [Primary Care Provider] - 12/09/21 9:30 am Activity/Diet/Wound Care/Special Instructions: Follow up with Transplant Team. Discharge Disposition: HOME SELF-CARE
== END 2021-11-30 13:59 | disposition home or self-care (01) | DRG 178 ==
LOC: EC 05:05 → 4SSUR 06:25
PROVIDERS: ADMIT Internal Medicine Geriatric Medicine; ATTEND Internal Medicine Geriatric Medicine
DX: U07.1 COVID-19 (principal); N17.9 Acute kidney failure, unspecified; E87.2 Acidosis; D84.821 Immunodeficiency due to drugs; Z94.4 Liver transplant status; N18.31 Chronic kidney disease, stage 3a; I12.9 Hypertensive chronic kidney disease with stage 1 through stage 4 chronic kidney disease, or unspecified chronic kidney disease; I25.2 Old myocardial infarction; N40.0 Benign prostatic hyperplasia without lower urinary tract symptoms; R19.7 Diarrhea, unspecified; K52.9 Noninfective gastroenteritis and colitis, unspecified; N28.1 Cyst of kidney, acquired; E87.5 Hyperkalemia; K74.69 Other cirrhosis of liver; E86.1 Hypovolemia; E86.0 Dehydration; D72.819 Decreased white blood cell count, unspecified; Z79.899 Other long term (current) drug therapy; Z82.49 Family history of ischemic heart disease and other diseases of the circulatory system
CPT/HCPCS: 36415; 76705; 80048; 80053; 80197; 82140; 82150; 83690; 83735; 84100; 84132; 84484; 85025; 85610; 85730; 87635; 96361; 96374; 96375; 99285

== ENCOUNTER → 2021-12-14 | Outpatient (CLI) | payer MEDICARE, BC ==
[2021-12-15 12:57] LABS: CMV DNA Qualitative Not detected (Not detected); CMV DNA, Quantitative <50 IU/mL (<50); LOG CMV Copies/mL <126 Copies/mL (<126); Log Cytomegalovirus <1.70 (<1.70)
== END | disposition home or self-care (01) ==
LOC: LABWHC1 10:55
PROVIDERS: ATTEND Internal Medicine
DX: B25.9 Cytomegaloviral disease, unspecified (principal)
CPT/HCPCS: 36415; 87497

== ENCOUNTER 2022-01-03 16:02 | Inpatient (IN) | payer MEDICARE, BC ==
[2022-01-03] MEDS ORDERED: SODIUM CHLORIDE 0.9% 1,000 ML IV STA (17:12)
[2022-01-03] MEDS ORDERED: ACETAMINOPHEN TAB 500 MG TAB PO STA (17:12)
[2022-01-03] MEDS ORDERED: PIPERACILLIN-TAZOBACTAM 3.375 GM in SODIUM CHLORIDE 0.9% 100 ML IVPB STA (17:20)
--- NOTE | 2022-01-03 17:20 | ED ---
General Adult HPI - General Chief complaint: Abdominal Pain Stated complaint: rt sided abd pain Time Seen by Provider: 01/03/22 17:02 Source: patient Mode of arrival: ambulatory Limitations: no limitations - History of Present Illness Initial comments: Dictation was produced using [employer] dictation software. please excuse any grammatical, word or spelling errors. Chief Complaint: 76-year-old male presents to the emergency department with flank pain and abdominal pain History of Present Illness: 76-year-old -[place] male. He has past medical history of liver transplant done at [facility] several years ago. 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 Patient does take multiple immune medications. With the last 3 days he is developed right-sided abdominal pain. He states that the pain radiates down to his right groin. He also reports right testicular pain. Patient has any history of appendectomy. No nausea or vomiting. No runny no sore throat or cough. No shortness of breath. No diarrhea. Denies any urinary symptoms. The ROS documented in this emergency department record has been reviewed and confirmed by me. Those systems with pertinent positive or negative responses have been documented in the HPI. All other systems are other negative and/or noncontributory. PHYSICAL EXAM: General Impression: Alert and oriented x3, not in acute distress HEENT: Normocephalic atraumatic, extra-ocular movements intact, pupils equal and reactive to light bilaterally, mucous membranes moist. Cardiovascular: Heart regular rate and rhythm Chest: Able to complete full sentences, no retractions, no tachypnea Abdomen: abdomen soft, non-tender, non-distended, no organomegaly Musculoskeletal: Pulses present and equal in all extremities, no peripheral edema, no CVA pain with thump : Swollen right testicle with palpatory tenderness Motor: no focal deficits noted Neurological: CN II-XII grossly intact, no focal motor or sensory deficits noted Skin: Intact with no visualized rashes Psych: Normal affect and mood ED course: 76-year-old male presents emergency department for testicular pain, right-sided flank pain signs upon arrival shows temperature 104.0. Patient is a high-risk patient given that he has history of liver transplant on immunotherapy medications. Patient is febrile. He does not appear septic at the bedside. He is normotensive. EKG interpretation: Ventricular rate 76, sinus rhythm,. 192, care is 121, QTC 393. No CA prolongation, no QTC prolongation, no ST or T-wave changes noted. EKG compared to 03/03/2017 showing no changes. Overall, this EKG is unr emarkable Laboratory evaluation obtained. No leukocytosis. CBC, coag panel, metabolic panel is within acceptable limits. Urinalysis shows greater than 182 white blood cells positive for nitrites. Patient started on Zosyn. Scrotal ultrasound shows epididymal orchitis with secondary hydrocele. Computed tomography scan abdomen pelvis shows no other intra-abdominal processes. Given patient's comorbidities and history of immune supressing medication secondary to liver transplant we'll have patient admitted. Case discussed with Dr. Cleaning. Dr. Cleaning requests urology and infectious disease on consult. - Related Data Home Medications Medication Instructions Recorded Confirmed Metoprolol Succinate [Toprol XL] 50 mg PO HS 07/20/15 11/28/21 Tacrolimus [Prograf] 1 mg PO HS 07/20/15 11/28/21 Tamsulosin [Flomax] 0.4 mg PO HS 07/20/15 11/28/21 dexAMETHasone ORAL [Hexadrol] 0.5 mg PO HS 07/20/15 11/28/21 mycophenolate mofetiL [Cellcept] 2,000 mg PO HS 07/20/15 11/28/21 Pravastatin Sodium [Pravachol] 10 mg PO HS 03/03/17 11/28/21 Aspirin EC [Ecotrin Low Dose] 81 mg PO HS 03/08/21 11/28/21 Latanoprost [Xalatan 0.005%] 1 drop BOTH EYES HS 11/28/21 11/28/21 Previous Rx's Medication Instructions Recorded Sodium Bicarbonate Tab 650 mg PO BID tab 11/30/21 Allergies Allergy/AdvReac Type Severity Reaction Status Date / Time No Known Allergies Allergy Verified 01/03/22 16:42 Review of Systems ROS Statement: Those systems with pertinent positive or pertinent negative responses have been documented in the HPI. ROS Other: All systems not noted in ROS Statement are negative. 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 Past Anesthesia/Blood Transfusion Reactions: No Reported Reaction Additional Past Anesthesia/Blood Transfusion Reaction / Comment(s): Pt received blood in past without reaction. hx jaw fx- had surgery and has a plate. a little confusion when first waking up Past Psychological History: No Psychological Hx Reported Smoking Status: Never smoker Past Alcohol Use History: None Reported Past Drug Use History: None Reported - Past Family History Father Family Medical History: Cancer Additional Family Medical History / Comment(s): Father was healthy. He around the age of 83 yrs. Mother Family Medical History: Myocardial Infarction (ND) Additional Family Medical History / Comment(s): Mother of a ND at the age of 83 yrs. General Exam Limitations: no limitations Course Vital Signs 01/03/22 01/03/22 16:36 18:44 Temperature 104.0 F H 98.3 F Pulse Rate 78 Respiratory 16 Rate Blood Pressure 136/59 O2 Sat by Pulse 98 Oximetry Medical Decision Making - Lab Data Result diagrams: 01/03/22 17:17 01/03/22 17:17 Lab Results 01/03/22 01/03/22 01/03/22 Range/Units 17:17 17:17 17:17 WBC 6.2 (3.8-10.6) k/uL RBC 4.27 L (4.30-5.90) m/uL Hgb 11.8 L (13.0-17.5) gm/dL Hct 37.6 L (39.0-53.0) % MCV 88.1 (80.0-100.0) fL MCH 27.7 (25.0-35.0) pg MCHC 31.5 (31.0-37.0) g/dL RDW 14.3 (11.5-15.5) % Plt Count 203 (150-450) k/uL MPV 7.1 Neutrophils % 80 % Lymphocytes % 11 % Monocytes % 4 % Eosinophils % 1 % Basophils % 0 % Neutrophils # 4.9 (1.3-7.7) k/uL Lymphocytes # 0.7 L (1.0-4.8) k/uL Monocytes # 0.3 (0-1.0) k/uL Eosinophils # 0.1 (0-0.7) k/uL Basophils # 0.0 (0-0.2) k/uL Hypochromasia Slight PT 11.0 (9.0-12.0) sec INR 1.0 (<1.2) APTT 24.2 (22.0-30.0) sec Sodium (137-145) mmol/L Potassium (3.5-5.1) mmol/L Chloride (98-107) mmol/L Carbon Dioxide (22-30) mmol/L Anion Gap mmol/L BUN (9-20) mg/dL Creatinine (0.66-1.25) mg/dL Est GFR (CKD-EPI)AfAm (>60 ml/min/1.73 sqM) Est GFR (CKD-EPI)NonAf (>60 ml/min/1.73 sqM) Glucose (74-99) mg/dL Plasma Lactic Acid Angelo (0.7-2.0) mmol/L Calcium (8.4-10.2) mg/dL Total Bilirubin (0.2-1.3) mg/dL AST (17-59) U/L ALT (4-49) U/L Alkaline Phosphatase (38-126) U/L Total Protein (6.3-8.2) g/dL Albumin (3.5-5.0) g/dL Urine Color Yellow Urine Appearance Cloudy (Clear) Urine pH 6.0 (5.0-8.0) Ur Specific Simpson 1.016 (1.001-1.035) Urine Protein 1+ H (Negative) Urine Glucose (UA) Negative (Negative) Urine Ketones Negative (Negative) Urine Blood Moderate H (Negative) Urine Nitrite Positive (Negative) Urine Bilirubin Negative (Negative) Urine Urobilinogen <2.0 (<2.0) mg/dL Ur Leukocyte Esterase Large H (Negative) Urine RBC 19 H (0-5) /hpf Urine WBC >182 H (0-5) /hpf Urine Bacteria Moderate H (None) /hpf Urine Mucus Rare H (None) /hpf Ur Yeast w Hyphae Few (None) /hpf 01/03/22 01/03/22 Range/Units 17:17 17:17 WBC (3.8-10.6) k/uL RBC (4.30-5.90) m/uL Hgb (13.0-17.5) gm/dL Hct (39.0-53.0) % MCV (80.0-100.0) fL MCH (25.0-35.0) pg MCHC (31.0-37.0) g/dL RDW (11.5-15.5) % Plt Count (150-450) k/uL MPV Neutrophils % % Lymphocytes % % Monocytes % % Eosinophils % % Basophils % % Neutrophils # (1.3-7.7) k/uL Lymphocytes # (1.0-4.8) k/uL Monocytes # (0-1.0) k/uL Eosinophils # (0-0.7) k/uL Basophils # (0-0.2) k/uL Hypochromasia PT (9.0-12.0) sec INR (<1.2) APTT (22.0-30.0) sec Sodium 133 L (137-145) mmol/L Potassium 4.4 (3.5-5.1) mmol/L Chloride 103 (98-107) mmol/L Carbon Dioxide 21 L (22-30) mmol/L Anion Gap 9 mmol/L BUN 17 (9-20) mg/dL Creatinine 1.58 H (0.66-1.25) mg/dL Est GFR (CKD-EPI)AfAm 48 (>60 ml/min/1.73 sqM) Est GFR (CKD-EPI)NonAf 42 (>60 ml/min/1.73 sqM) Glucose 91 (74-99) mg/dL Plasma Lactic Acid Angelo 1.1 (0.7-2.0) mmol/L Calcium 8.3 L (8.4-10.2) mg/dL Total Bilirubin 1.5 H (0.2-1.3) mg/dL AST 27 (17-59) U/L ALT 8 (4-49) U/L Alkaline Phosphatase 68 (38-126) U/L Total Protein 6.9 (6.3-8.2) g/dL Albumin 3.6 (3.5-5.0) g/dL Urine Color Urine Appearance (Clear) Urine pH (5.0-8.0) Ur Specific Simpson (1.001-1.035) Urine Protein (Negative) Urine Glucose (UA) (Negative) Urine Ketones (Negative) Urine Blood (Negative) Urine Nitrite (Negative) Urine Bilirubin (Negative) Urine Urobilinogen (<2.0) mg/dL Ur Leukocyte Esterase (Negative) Urine RBC (0-5) /hpf Urine WBC (0-5) /hpf Urine Bacteria (None) /hpf Urine Mucus (None) /hpf Ur Yeast w Hyphae (None) /hpf Disposition Clinical Impression: Epididymo-orchitis Disposition: ADMITTED IP TO THIS HOSP Condition: Fair Referrals: Ron Edwards DO [Primary Care Provider] - 1-2 days
[2022-01-03 17:36] LABS: Basophils % (A) 0 %; Eosinophils # (A) 0.1 k/uL (0-0.7); Eosinophils % (A) 1 %; HCT 37.6 % (39.0-53.0); HGB 11.8 gm/dL (13.0-17.5); Hypochromasia Slight; Lymphocytes # (A) 0.7 k/uL (1.0-4.8); Lymphocytes % (A) 11 %; MCH 27.7 pg (25.0-35.0); MCHC 31.5 g/dL (31.0-37.0); MCV 88.1 fL (80.0-100.0); Mean Platelet Volume 7.1; Monocytes # (A) 0.3 k/uL (0-1.0); Monocytes % (A) 4 %; Neutrophils # (A) 4.9 k/uL (1.3-7.7); Neutrophils % (A) 80 %; Platelet Count 203 k/uL (150-450); RBC 4.27 m/uL (4.30-5.90); RDW 14.3 % (11.5-15.5); WBC 6.2 k/uL (3.8-10.6)
[2022-01-03 17:43] LABS: Appearance,Urine Cloudy (Clear); Bacteria,Urine Moderate /hpf; Bilirubin,Urine Negative (Negative); Blood,Urine Moderate (Negative); Color,Urine Yellow; Glucose,Urine (UA) Negative (Negative); Hyphae Yeast, Urine Few /hpf; Ketones,Urine Negative (Negative); Leukocyte Esterase,Urine Large (Negative); Mucus,Urine Rare /hpf; Nitrite,Urine Positive (Negative); Protein,Urine 1+ (Negative); RBC,Urine 19 /hpf (0-5); Specific Gravity,Urine 1.016 (1.001-1.035); Urobilinogen,Urine <2.0 mg/dL (<2.0); WBC,Urine >182 /hpf (0-5)
[2022-01-03 17:45] LABS: Calcium 8.3 mg/dL (8.4-10.2); Total Bilirubin 1.5 mg/dL (0.2-1.3)
[2022-01-03 17:53] LABS: Potassium 4.4 mmol/L (3.5-5.1); Total Protein 6.9 g/dL (6.3-8.2)
[2022-01-03 17:54] LABS: Albumin 3.6 g/dL (3.5-5.0)
[2022-01-03 18:21] LABS: Partial Thromboplastin Time 24.2 sec (22.0-30.0)
--- NOTE | 2022-01-03 18:39 | US ---
EXAMINATION TYPE: US scrotum with doppler. Grayscale and color Doppler Duplex imaging performed of amtt knpap scrotum. DATE OF EXAM: 01/03/2022 COMPARISON: NONE CLINICAL HISTORY: right testicular pain. Patient states he is having right-sided pain EXAM MEASUREMENTS: TESTICLES: Right Testicle: 3.3 x 2.5 x 2.8 cm Left Testicle: 3.7 x 2.4 x 2.6 cm EPIDIDYMIS HEAD: Right Epididymis: 1.5 x 1.0 x 1.2 cm Left Epididymis: 1.4 x 0.9 x 0.8 cm Doppler performed to assess for testicular vascularity; good bilateral color flow and waveforms are s een. There is no evidence of testicular torsion. Presence of hydroceles: There is a right-sided hydrocele. Presence of varicoceles: no There appears to be increased blood flow to the right testicle and right epididymis. Edematous tissue seen midline. IMPRESSION: 1. Right epididymoorchitis 2. Right hydrocele likely reactive sponsor #1.
--- NOTE | 2022-01-03 19:32 | CT ---
EXAMINATION TYPE: CT abdomen pelvis w con CT DLP: 1316 mGycm, Automated exposure control for dose reduction was used. DATE OF EXAM: 01/03/2022 6:47 PM COMPARISON: CT abdomen pelvis most recent from CT abdomen pelvis 03/10/2021.. CLINICAL INDICATION:Male, 76 years old with history of fever, abdominal pain; TECHNIQUE: Standard CT of the abdomen and pelvis following the administration of 100 cc of Isovue 3 00 IV contrast material. Coronal and sagittal reformats were performed. FINDINGS: LOWER CHEST: Streaky atelectasis within the lung bases. ABDOMEN LIVER: 2 spot liver noted. GALLBLADDER AND BILE DUCTS: Small amount of pneumobilia in present in the more central biliary system . PANCREAS: Unremarkable. SPLEEN: Unremarkable. ADRENAL GLANDS: Unremarkable. KIDNEYS AND URETERS: No evidence of hydronephrosis or renal calculus. The ureters are unremarkable. Bilateral renal cysts measuring up to 76 mm on the right and 52 mm on the left. PELVIS BLADDER: No demonstration of circumferentially thickened bladder wall which may be partially due to u nder distention measuring up to 11 mm. Bilateral bladder diverticula are present. REPRODUCTIVE: Unremarkable. ABDOMEN & PELVIS STOMACH AND BOWEL: Stomach and duodenum are unremarkable. There is a large stool burden throughout th e proximal colon. Scattered diverticula are noted throughout the colon. No evidence of bowel obstruct ion. The appendix is visualized and normal. PERITONEUM: No evidence of pneumoperitoneum or free fluid. VASCULATURE: Infrarenal fusiform dilation up to 27 mm unchanged from prior. MUSCULOSKELETAL: No acute osseous abnormalities, similar multilevel compression deformities throughou t the lower spine which are stable from prior. No new compression deformities identified. LYMPH NODES: No gross evidence for lymphadenopathy. SOFT TISSUE/ABDOMINAL WALL: Umbilical hernia measuring 11 mm at the neck. IMPRESSION: 1. Circumferential bladder wall thickening with bladder diverticula correlate with urinalysis for cy stitis. 2. Colonic diverticulosis. 3. Redemonstration of pneumobilia. 4. Multiple bilateral renal cysts. 5. Transplant liver without acute abnormality. 6. 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
[2022-01-03] MEDS ORDERED: NALOXONE 0.4 MG/ML 1 ML VIAL IV PRN (19:54)
[2022-01-03] MEDS ORDERED: Acetaminophen-Codeine 300-30mg TAB PO PRN (22:25)
[2022-01-03] MEDS: SODIUM CHLORIDE 0.9% 1,000 ML IV SCH (22:47)
[2022-01-03] MEDS: TACROLIMUS 1 MG CAP PO SCH (22:48)
[2022-01-03] MEDS: PRAVASTATIN SODIUM 20 MG TAB PO SCH (22:49)
[2022-01-03] MEDS: ASPIRIN 81 MG PO SCH (22:49)
[2022-01-03] MEDS: LATANOPROST 0.005% OPHTH DROPS 2.5 ML BTL BOTH EYES SCH (22:49)
[2022-01-03] MEDS: METOPROLOL SUCCINATE (ER) 50 MG TAB.ER.24H PO SCH (22:49)
[2022-01-03] MEDS: TAMSULOSIN 0.4 MG CAP.ER.24H PO SCH (22:49)
[2022-01-04] MEDS: ACETAMINOPHEN TAB 325 MG TAB PO PRN ×2 (07:48→19:28)
--- NOTE | 2022-01-04 08:41 | P.GSCN ---
History of Present Illness Consult date: 01/04/22 Reason for Consult: UTI, right orchitis History of present illness: This is a 76 yo male that presents to the hospital with right-sided testicular pain, right lower quadrant abdominal pain. Pain is associated with dysuria and one episode of gross hematuria. Denies any similar complaints in the past. Denies any flank pain. On presentation he was febrile at 104. Underwent a CT abdomen and pelvis that showed no acute process, scrotal ultrasound showed evidence of right orchitis. His UA on presentation was concerning for UTI. Of note he does have history for liver transplant and currently on immunosuppression. He follows up with Dr. Parish for BPH Review of Systems - Constitutional Reports chills, Reports fever - EENT Ears, nose, mouth and throat: Denies dysphagia - Cardiovascular Denies chest pain, Denies shortness of breath - Respiratory Denies cough, Denies 7 - Gastrointestinal Reports abdominal pain - Genitourinary Reports dysuria, Reports hematuria, Reports testicular pain, Denies flank pain - Integumentary Denies rash, Denies unusual bruising - Neurological Denies headaches, Denies syncope Past Medical History Past Medical History: GERD/Reflux, Hypertension, Liver Disease, Osteoarthritis (OA), Prostate Disorder, Syncope, Thyroid Disorder Additional Past Medical History / Comment(s): 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 Past Anesthesia/Blood Transfusion Reactions: No Reported Reaction Additional Past Anesthesia/Blood Transfusion Reaction / Comm: Pt received blood in past without reaction. hx jaw fx- had surgery and has a plate. 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 He around the age of 83 yrs. Mother Family Medical History: Myocardial Infarction (SC) Additional Family Medical History / Comment(s): Mother of a SC at the age of 83 yrs. Medications and Allergies Home Medications Medication Instructions Recorded Confirmed Type Metoprolol Succinate [Toprol XL] 50 mg PO HS 07/20/15 01/03/22 History Tacrolimus [Prograf] 1 mg PO HS 07/20/15 01/03/22 History Tamsulosin [Flomax] 0.4 mg PO HS 07/20/15 01/03/22 History dexAMETHasone ORAL [Hexadrol] 0.5 mg PO HS 07/20/15 01/03/22 History mycophenolate mofetiL [Cellcept] 2,000 mg PO HS 07/20/15 01/03/22 History Pravastatin Sodium [Pravachol] 10 mg PO HS 03/03/17 01/03/22 History Aspirin EC [Ecotrin Low Dose] 81 mg PO HS 03/08/21 01/03/22 History Latanoprost [Xalatan 0.005%] 1 drop BOTH EYES HS 11/28/21 01/03/22 History Allergies Allergy/AdvReac Type Severity Reaction Status Date / Time No Known Allergies Allergy Verified 01/03/22 20:18 Surgical - Exam Vital Signs Temp Pulse Resp BP Pulse Ox 104.0 F H 78 16 136/59 98 01/03/22 16:36 01/03/22 16:36 01/03/22 16:36 01/03/22 16:36 01/03/22 16:36 - General no distress, moderate pain - Eyes normal ocular movement, no pale - ENT normal nares, normal mucosa - Respiratory normal expansion, normal respiratory effort - Abdomen Abdomen: soft, tender (RLQ) - Genitourinary Right testicle indurated and tender, no fluctuance appreciated - Psychiatric oriented to time, oriented to person, oriented to place Results - Labs 01/03/22 17:17 01/03/22 17:17 Abnormal Lab Results - Last 24 Hours (Table) 01/03/22 01/03/22 01/03/22 Range/Units 17:17 17:17 17:17 RBC 4.27 L (4.30-5.90) m/uL Hgb 11.8 L (13.0-17.5) gm/dL Hct 37.6 L (39.0-53.0) % Lymphocytes # 0.7 L (1.0-4.8) k/uL Sodium 133 L (137-145) mmol/L Carbon Dioxide 21 L (22-30) mmol/L Creatinine 1.58 H (0.66-1.25) mg/dL Calcium 8.3 L (8.4-10.2) mg/dL Total Bilirubin 1.5 H (0.2-1.3) mg/dL Urine Protein 1+ H (Negative) Urine Blood Moderate H (Negative) Ur Leukocyte Esterase Large H (Negative) Urine RBC 19 H (0-5) /hpf Urine WBC >182 H (0-5) /hpf Urine Bacteria Moderate H (None) /hpf Urine Mucus Rare H (None) /hpf Microbiology - Last 24 Hours (Table) 01/03/22 17:17 Urine Culture - Preliminary Urine,Clean Catch Diabetes panel 01/03/22 Range/Units 17:17 Sodium 133 L (137-145) mmol/L Potassium 4.4 (3.5-5.1) mmol/L Chloride 103 (98-107) mmol/L Carbon Dioxide 21 L (22-30) mmol/L BUN 17 (9-20) mg/dL Creatinine 1.58 H (0.66-1.25) mg/dL Glucose 91 (74-99) mg/dL Calcium 8.3 L (8.4-10.2) mg/dL AST 27 (17-59) U/L ALT 8 (4-49) U/L Alkaline Phosphatase 68 (38-126) U/L Total Protein 6.9 (6.3-8.2) g/dL Albumin 3.6 (3.5-5.0) g/dL Calcium panel 01/03/22 Range/Units 17:17 Calcium 8.3 L (8.4-10.2) mg/dL Albumin 3.6 (3.5-5.0) g/dL Pituitary panel 01/03/22 Range/Units 17:17 Sodium 133 L (137-145) mmol/L Potassium 4.4 (3.5-5.1) mmol/L Chloride 103 (98-107) mmol/L Carbon Dioxide 21 L (22-30) mmol/L BUN 17 (9-20) mg/dL Creatinine 1.58 H (0.66-1.25) mg/dL Glucose 91 (74-99) mg/dL Calcium 8.3 L (8.4-10.2) mg/dL Adrenal panel 01/03/22 Range/Units 17:17 Sodium 133 L (137-145) mmol/L Potassium 4.4 (3.5-5.1) mmol/L Chloride 103 (98-107) mmol/L Carbon Dioxide 21 L (22-30) mmol/L BUN 17 (9-20) mg/dL Creatinine 1.58 H (0.66-1.25) mg/dL Glucose 91 (74-99) mg/dL Calcium 8.3 L (8.4-10.2) mg/dL Total Bilirubin 1.5 H (0.2-1.3) mg/dL AST 27 (17-59) U/L ALT 8 (4-49) U/L Alkaline Phosphatase 68 (38-126) U/L Total Protein 6.9 (6.3-8.2) g/dL Albumin 3.6 (3.5-5.0) g/dL Assessment and Plan Assessment: 76-year-old male admitted to the hospital with UTI and a right-sided orchitis. Febrile on presentation, has been afebrile since admission. Exam consistent with orchitis, on exam and review ultrasound no evidence for scrotal or i ntratesticular abscess. -elevate scrotum -Follow up on urine culture, will need a minimum of 10 days of antibiotics based on culture sensitivity
[2022-01-04] MEDS ORDERED: CEFEPIME 2 GM in SODIUM CHLORIDE 0.9% 100 ML IVPB SCH (11:00)
--- NOTE | 2022-01-04 13:44 | P.HPIM ---
History of Present Illness H&P Date: 01/04/22 HISTORY OF PRESENT ILLNESS 76-year-old one of Dr. 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 Patient ended up calling Dr. Parish office on Monday trying to get in was giving in appointment on Monday he could not wait his symptoms were quite bit impaired blood this time ended up coming to the emergency department at [facility] where was seen and evaluated with testing including CBC shows no elevated white blood cell he was in acute kidney disease of the time with creatinine of 1.58 GFR at 48. His liver function test were normal his urine was very abnormal with significant amount of white blood cell bacteria and nitrate in the urine. Patient ended up having abdominal and pelvic CAT scan showed sinus cystitis with a chronic diverticulitis ultrasound of the scrotum shows right epididymo Orchitis, patient also had right sided hydrocele he was started on 2 g Ceftin at the time and admitted to the hospital will be seen urology and infectious disease. REVIEW OF SYSTEMS Constitutional: Low-grade fever, no chills, no night sweats. No weight change. No weakness, fatigue or lethargy. No daytime sleepiness. EENT: No headache. No blurred vision or double vision, no loss of vision. No loss of Hearing, no ringing in the ears, no dizziness. No nasal drainage or congestion. No epistaxis. No sore throat. Lungs: No shortness of breath, cough, no sputum production. No wheezing. Cardiovascular: No chest pain, no lower extremity edema. No palpitations. No paroxysmal nocturnal dyspnea. No orthopnea. No lightheadedness or dizziness. No syncopal episodes. Abdominal: No abdominal pain. No nausea, vomiting. No diarrhea. No constipation. No bloody or tarry stools.. No loss of appetite. Genitourinary: Significant pain and discomfort in the scrotum on the right side along with significant pain and edema. Musculoskeletal: No myalgias. No muscle weakness, no gait dysfunction, no frequent falls. No back pain. No neck pain. Integumentary: No wounds, no lesions. No rash or pruritus. No unusual bruising. No change in hair or nails. Neurologic: No aphasia. No facial droop. No change in mentation. No head injury. No headache. No paralysis. No paresthesia. Psychiatric: No depression. No anxiety. No mood swings. Endocrine: No abnormal blood sugars. No weight change. No excessive sweating or thirst. No cold intolerance. SOCIAL HISTORY Patient does not smoke, no code abuse, patient does not use any CPAP or BiPAP able to take care of his own affairs at this point. FAMILY HISTORY His father dying at age 83 from leukemia, mother age 83 from PR, patient had 8 brothers and 2 sister is 2 sister pass both from cancer most likely breast and:, One of his brother from lung cancer and 2 from CAD. Patient has 2 children one of them from advanced sarcoidosis as well as living and well. PHYSICAL EXAMINATION Gen: This is elderly laying in bed mix comfortable in no acute respiratory distress. HEENT: Head is atraumatic, normocephalic. Pupils equal, round. Sclerae is anicteric. NECK: Supple. No JVD. No lymphadenopathy. No thyromegaly. LUNGS: Clear to auscultation. No wheezes or rhonchi. No intercostal retractions. HEART: Regular rate and rhythm. No murmur. ABDOMEN: Soft. Bowel sounds are present. No masses. No tenderness. EXTREMITIES: No pedal edema. No calf tenderness. NEUROLOGICAL: Patient is awake, alert and oriented x3. Cranial nerves 2 through 12 are grossly intact. Genitalia: His right testicle had mild hydrocele with significant pain and discomfort and tenderness at the Epididum them area. ASSESSMENT AND PLAN 1. 1 acute epididymo Orchitis: Patient was admitted to the hospital will continue Ceftin 2 g every 8 hours for now awaiting for culture recommendation by urology patient will probably require an antibiotic for 10-14 days. 2 sepsis and UTI: Patient is known to have a problem with his immune system specially as an immune compromised been on antirejection drugs will continue aggressive management for now and waiting for final culture. 3 acute kidney injury: The GFR is down 48, patient will continue gentle hydration repeat CMP in 24 hours. 4 history of liver transplantation for cryptogenic liver disease. On immunosuppressive medication including mycophenolate, tacrolimus) dexamethasone 5 hypertension continue metoprolol daily at bedtime 6 hyperlipidemia continue pravastatin 10 mg daily at bedtime 7 history of CVA in 2017 on aspirin 81 mg daily with pravastatin 10 mg daily 8 post nephrostomy tube and stent placement at [facility] from last year has been doing well still seen urology. 9 DVT prophylaxis: Patient will be on Lovenox. 10 GI prophylaxis: Patient be on Pepcid. 11. COVID-19 testing was negative CODE STATUS: Full code. Patient will be admitted to the hospital for a minimum of 2 night stay. 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 Past Anesthesia/Blood Transfusion Reactions: No Reported Reaction Additional Past Anesthesia/Blood Transfusion Reaction / Comment(s): Pt received blood in past without reaction. hx jaw fx- had surgery and has a plate. 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 He around the age of 83 yrs. Mother Family Medical History: Myocardial Infarction (PR) Additional Family Medical History / Comment(s): Mother of a PR at the age of 83 yrs. Medications and Allergies Home Medications Medication Instructions Recorded Confirmed Type Metoprolol Succinate [Toprol XL] 50 mg PO HS 07/20/15 01/03/22 History Tacrolimus [Prograf] 1 mg PO HS 07/20/15 01/03/22 History Tamsulosin [Flomax] 0.4 mg PO HS 07/20/15 01/03/22 History dexAMETHasone ORAL [Hexadrol] 0.5 mg PO HS 07/20/15 01/03/22 History mycophenolate mofetiL [Cellcept] 2,000 mg PO HS 07/20/15 01/03/22 History Pravastatin Sodium [Pravachol] 10 mg PO HS 03/03/17 01/03/22 History Aspirin EC [Ecotrin Low Dose] 81 mg PO HS 03/08/21 01/03/22 History Latanoprost [Xalatan 0.005%] 1 drop BOTH EYES HS 11/28/21 01/03/22 History Allergies Allergy/AdvReac Type Severity Reaction Status Date / Time No Known Allergies Allergy Verified 01/03/22 20:18 Physical Exam Vitals: Vital Signs Temp Pulse Pulse Resp BP BP Pulse Ox 01/04/22 07:29 100.2 F H 65 112/56 97 01/04/22 06:54 99.0 F 01/04/22 02:26 99.6 F 81 15 129/62 98 01/03/22 21:45 99.0 F 74 16 124/62 98 01/03/22 18:44 98.3 F 01/03/22 16:36 104.0 F H 78 16 136/59 98 Intake and Output 01/03/22 01/04/22 01/04/22 22:59 06:59 14:59 Intake Total 700 700 Output Total 400 Balance 300 700 Intake: Oral 700 700 Output: Urine 400 Other: Weight 90.718 kg Results CBC & Chem 7: 01/03/22 17:17 01/03/22 17:17 Labs: Abnormal Lab Results - Last 24 Hours (Table) 01/03/22 01/03/22 01/03/22 Range/Units 17:17 17:17 17:17 RBC 4.27 L (4.30-5.90) m/uL Hgb 11.8 L (13.0-17.5) gm/dL Hct 37.6 L (39.0-53.0) % Lymphocytes # 0.7 L (1.0-4.8) k/uL Sodium 133 L (137-145) mmol/L Carbon Dioxide 21 L (22-30) mmol/L Creatinine 1.58 H (0.66-1.25) mg/dL Calcium 8.3 L (8.4-10.2) mg/dL Total Bilirubin 1.5 H (0.2-1.3) mg/dL Urine Protein 1+ H (Negative) Urine Blood Moderate H (Negative) Ur Leukocyte Esterase Large H (Negative) Urine RBC 19 H (0-5) /hpf Urine WBC >182 H (0-5) /hpf Urine Bacteria Moderate H (None) /hpf Urine Mucus Rare H (None) /hpf Microbiology - Last 24 Hours (Table) 01/03/22 17:17 Urine Culture - Preliminary Urine,Clean Catch Thrombosis Risk Factor Assmnt - Choose All That Apply Any of the Below Risk Factors Present?: Yes Each Factor Represents 1 point: Obesity (BMI >25) Other Risk Factors: No Each Risk Factor Represents 3 Points: Age 75 years or older Other congenital or acquired thrombophilia - If yes, enter type in comment: No Thrombosis Risk Factor Assessment Total Risk Factor Score: 4 Thrombosis Risk Factor Assessment Level: Moderate Risk
[2022-01-04] MEDS: LATANOPROST 0.005% OPHTH DROPS 2.5 ML BTL BOTH EYES SCH (19:24)
[2022-01-04] MEDS: ASPIRIN 81 MG PO SCH (19:24)
[2022-01-04] MEDS: METOPROLOL SUCCINATE (ER) 50 MG TAB.ER.24H PO SCH (19:24)
[2022-01-04] MEDS: PRAVASTATIN SODIUM 20 MG TAB PO SCH (19:25)
[2022-01-04] MEDS: TAMSULOSIN 0.4 MG CAP.ER.24H PO SCH (19:27)
[2022-01-04] MEDS: TACROLIMUS 1 MG CAP PO SCH (19:27)
[2022-01-04] MEDS: SODIUM CHLORIDE 0.9% 1,000 ML IV SCH (19:28)
[2022-01-04] MEDS: CEFEPIME 2 GM in SODIUM CHLORIDE 0.9% 100 ML IVPB SCH (23:25)
--- NOTE | 2022-01-05 00:02 | P.CONS ---
History of Present Illness - Reason for Consult Consult date: 01/04/22 UTI and epididymoorchitis Requesting physician: Micah Schaeffer - Chief Complaint Right flank and testicular pain x 3 days - History of Present Illness Patient is a 76-year-old -[place] male with a past medical history significant for liver transplant at [facility] many years ago secondary to cryptogenic fibrosis and has been on immunosuppressive medication presenting to the ER last evening for evaluation of the right flank and abdominal pain as well as some right testicular pain and swelling in this patient symptom has been going on for the last 3 days patient describes his pain to be more of a dull aching to sharp intensity 5-6 out of 10 no radiation patient denies any nausea no vomiting and denies having any diarrhea patient on presentation to the hospital did have a fever of 104 F no significant tachycardia or hypoxemia patient did have white count 6.2 creatinine was 1.58 urine has been positive culture showing a gram-negative patient did have a scrotal ultrasound with evidence of right epididymoorchitis and right hydrocele CT of abdominal pelvis circumferential bladder wall thickening with bladder diverticula pneumobilia and multiple bilateral renal cyst patient did received a dose of Zosyn in the ER subsequently has been admitted to the hospital infectious disease was consulted for further management of antibiotic therapy Review of Systems Positive point has been mentioned in the HPI rest of the systems are negative Past Medical History Past Medical History: GERD/Reflux, Hypertension, Liver Disease, Osteoarthritis (OA), Prostate Disorder, Syncope, Thyroid Disorder Additional Past Medical History / Comment(s): 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 Past Anesthesia/Blood Transfusion Reactions: No Reported Reaction Additional Past Anesthesia/Blood Transfusion Reaction / Comm: Pt received blood in past without reaction. hx jaw fx- had surgery and has a plate. 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 He around the age of 83 yrs. Mother Family Medical History: Myocardial Infarction (DC) Additional Family Medical History / Comment(s): Mother of a DC at the age of 83 yrs. Medications and Allergies Home Medications Medication Instructions Recorded Confirmed Type Metoprolol Succinate [Toprol XL] 50 mg PO HS 07/20/15 01/03/22 History Tacrolimus [Prograf] 1 mg PO HS 07/20/15 01/03/22 History Tamsulosin [Flomax] 0.4 mg PO HS 07/20/15 01/03/22 History dexAMETHasone ORAL [Hexadrol] 0.5 mg PO HS 07/20/15 01/03/22 History mycophenolate mofetiL [Cellcept] 2,000 mg PO HS 07/20/15 01/03/22 History Pravastatin Sodium [Pravachol] 10 mg PO HS 03/03/17 01/03/22 History Aspirin EC [Ecotrin Low Dose] 81 mg PO HS 03/08/21 01/03/22 History Latanoprost [Xalatan 0.005%] 1 drop BOTH EYES HS 11/28/21 01/03/22 History Allergies Allergy/AdvReac Type Severity Reaction Status Date / Time No Known Allergies Allergy Verified 01/03/22 20:18 Physical Exam Vitals: Vital Signs Temp Pulse Pulse Resp BP BP Pulse Ox 01/04/22 07:29 100.2 F H 65 112/56 97 01/04/22 06:54 99.0 F 01/04/22 02:26 99.6 F 81 15 129/62 98 01/03/22 21:45 99.0 F 74 16 124/62 98 01/03/22 18:44 98.3 F 01/03/22 16:36 104.0 F H 78 16 136/59 98 Intake and Output 01/03/22 01/04/22 01/04/22 22:59 06:59 14:59 Intake Total 700 700 Output Total 400 Balance 300 700 Intake: Oral 700 700 Output: Urine 400 Other: Weight 90.718 kg GENERAL DESCRIPTION: An elderly male lying in bed, no distress. No tachypnea or accessory muscle of respiration use. HEENT: Shows Pallor , no scleral icterus. Oral mucous membrane is dry. No pharyngeal erythema or thrush NECK: Trachea central, no thyromegaly. LUNGS: Unlabored breathing. Clear to auscultation anteriorly. No wheeze or crackle. HEART: S1, S2, regular rate and rhythm. No loud murmur ABDOMEN: Soft, no tenderness , guarding or rigidity, no organomegaly EXTREMITIES: No edema of feet. SKIN: No rash, no masses palpable. NEUROLOGICAL: The patient is awake, alert, oriented x3, mood and affect normal. Results CBC & Chem 7: 01/03/22 17:17 01/03/22 17:17 Labs: Abnormal Lab Results - Last 24 Hours (Table) 01/03/22 01/03/22 01/03/22 Range/Units 17:17 17:17 17:17 RBC 4.27 L (4.30-5.90) m/uL Hgb 11.8 L (13.0-17.5) gm/dL Hct 37.6 L (39.0-53.0) % Lymphocytes # 0.7 L (1.0-4.8) k/uL Sodium 133 L (137-145) mmol/L Carbon Dioxide 21 L (22-30) mmol/L Creatinine 1.58 H (0.66-1.25) mg/dL Calcium 8.3 L (8.4-10.2) mg/dL Total Bilirubin 1.5 H (0.2-1.3) mg/dL Urine Protein 1+ H (Negative) Urine Blood Moderate H (Negative) Ur Leukocyte Esterase Large H (Negative) Urine RBC 19 H (0-5) /hpf Urine WBC >182 H (0-5) /hpf Urine Bacteria Moderate H (None) /hpf Urine Mucus Rare H (None) /hpf Microbiology - Last 24 Hours (Table) 01/03/22 17:17 Urine Culture - Preliminary Urine,Clean Catch Assessment and Plan (1) UTI (urinary tract infection) Current Visit: Yes Status: Acute Code(s): N39.0 - URINARY TRACT INFECTION, SITE NOT SPECIFIED SNOMED Code(s): 45810699 (2) Epididymo-orchitis Current Visit: Yes Status: Acute Code(s): N45.3 - EPIDIDYMO-ORCHITIS SNOMED Code(s): 026433531 Plan: 1patient presented to hospital with right flank and testicular pain in this patient did have evidence of a positive UA and evidence of right epididymoorchitis likely from enteric gram-negative pathogen. 2patient with history of renal transplant on immunosuppressive medication 3-we will start the patient on cefepime 2 g every 12 hours while waiting for the culture to finalize 4-gentle IV fluid We will follow on clinical condition and cultures to further adjust medication if needed Thank you for this consultation will follow this patient along with you
[2022-01-05 02:26] LABS: HCT 34.8 % (39.0-53.0); Hypochromasia Slight; MCH 27.5 pg (25.0-35.0); MCHC 31.5 g/dL (31.0-37.0); MCV 87.2 fL (80.0-100.0); Mean Platelet Volume 7.8; Platelet Count 181 k/uL (150-450); RBC 3.99 m/uL (4.30-5.90); RDW 14.1 % (11.5-15.5); WBC 5.1 k/uL (3.8-10.6)
[2022-01-05 02:49] LABS: African American GFR (CKD) 51 (>60 ml/min/1.73 sqM); Anion Gap 7 mmol/L; Blood Urea Nitrogen 16 mg/dL (9-20); Carbon Dioxide 21 mmol/L (22-30); Chloride 107 mmol/L (98-107); Glucose 117 mg/dL (74-99); Non-African American GFR(CKD) 44 (>60 ml/min/1.73 sqM); Potassium 4.2 mmol/L (3.5-5.1); Sodium 135 mmol/L (137-145)
--- NOTE | 2022-01-05 12:14 | P.PN ---
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 Patient ended up calling Dr. Parish office on Monday trying to get in was giving in appointment on Monday he could not wait his symptoms were quite bit impaired blood this time ended up coming to the emergency department at [facility] where was seen and evaluated with testing including CBC shows no elevated white blood cell he was in acute kidney disease of the time with creatinine of 1.58 GFR at 48. His liver function test were normal his urine was very abnormal with significant amount of white blood cell bacteria and nitrate in the urine. Patient ended up having abdominal and pelvic CAT scan showed sinus cystitis with a chronic diverticulitis ultrasound of the scrotum shows right epididymo Orchitis, patient also had right sided hydrocele he was started on 2 g Ceftin at the time and admitted to the hospital will be seen urology and infectious disease. 01/05: Patient is doing well today has improved significantly, his cultures still not finalize that looks like we have gram-negative bacillary patient is c urrently on Ceftin 2 g at least till tomorrow patient might and will be on oral antibiotic for 10 more days. I spoke with the daughter today answer all their questions patient otherwise is stable. REVIEW OF SYSTEMS Constitutional: Low-grade fever, no chills, no night sweats. No weight change. No weakness, fatigue or lethargy. No daytime sleepiness. EENT: No headache. No blurred vision or double vision, no loss of vision. No loss of Hearing, no ringing in the ears, no dizziness. No nasal drainage or congestion. No epistaxis. No sore throat. Lungs: No shortness of breath, cough, no sputum production. No wheezing. Cardiovascular: No chest pain, no lower extremity edema. No palpitations. No paroxysmal nocturnal dyspnea. No orthopnea. No lightheadedness or dizziness. No syncopal episodes. Abdominal: No abdominal pain. No nausea, vomiting. No diarrhea. No constipation. No bloody or tarry stools.. No loss of appetite. Genitourinary: Significant pain and discomfort in the scrotum on the right side along with significant pain and edema. Musculoskeletal: No myalgias. No muscle weakness, no gait dysfunction, no frequent falls. No back pain. No neck pain. Integumentary: No wounds, no lesions. No rash or pruritus. No unusual bruising. No change in hair or nails. Neurologic: No aphasia. No facial droop. No change in mentation. No head injury. No headache. No paralysis. No paresthesia. Psychiatric: No depression. No anxiety. No mood swings. Endocrine: No abnormal blood sugars. No weight change. No excessive sweating or thirst. No cold intolerance. PHYSICAL EXAMINATION Gen: This is elderly laying in bed mix comfortable in no acute respiratory distress. HEENT: Head is atraumatic, normocephalic. Pupils equal, round. Sclerae is anicteric. NECK: Supple. No JVD. No lymphadenopathy. No thyromegaly. LUNGS: Clear to auscultation. No wheezes or rhonchi. No intercostal retractions. HEART: Regular rate and rhythm. No murmur. ABDOMEN: Soft. Bowel sounds are present. No masses. No tenderness. EXTREMITIES: No pedal edema. No calf tenderness. NEUROLOGICAL: Patient is awake, alert and oriented x3. Cranial nerves 2 through 12 are grossly intact. Genitalia: His right testicle had mild hydrocele with significant pain and discomfort and tenderness at the Epididum them area. ASSESSMENT AND PLAN 1. 1 acute epididymo Orchitis: We'll continue Ceftin for now until tomorrow w hen the cultures finalize patient will be on oral antibiotic for 10 more days. 2 sepsis and UTI: Patient is known to have a problem with his immune system specially as an immune compromised been on antirejection drugs will continue aggressive management for now and waiting for final culture. 3 acute kidney injury: His GFR has improved repeat another CMP tomorrow. 4 history of liver transplantation for cryptogenic liver disease. On immunosuppressive medication including mycophenolate, tacrolimus) dexamethasone 5 hypertension continue metoprolol daily at bedtime 6 hyperlipidemia continue pravastatin 10 mg daily at bedtime 7 history of CVA in 2017 on aspirin 81 mg daily with pravastatin 10 mg daily 8 post nephrostomy tube and stent placement at [facility] from last year has been doing well still seen urology. 9 DVT prophylaxis: Patient will be on Lovenox. 10 GI prophylaxis: Patient be on Pepcid. Discharge planning: If the final culture back by tomorrow patient is stable we'll be able to send him home with oral antibiotic for 10 more days. Objective - Vital Signs Vital signs: Vital Signs Temp 97.8 F 01/05/22 07:12 Pulse 63 01/05/22 07:12 Resp 18 01/05/22 07:12 BP 146/75 01/05/22 07:12 Pulse Ox 100 01/05/22 07:12 Intake & Output 01/04/22 01/05/22 01/05/22 18:59 06:59 18:59 Intake Total 1400 Balance 1400 Intake: Oral 1400 Other: Voiding Method Toilet Urinal # Voids 4 - Labs CBC & Chem 7: 01/05/22 02:05 01/05/22 02:05 Labs: Abnormal Lab Results - Last 24 Hours (Table) 01/05/22 01/05/22 Range/Units 02:05 02:05 RBC 3.99 L (4.30-5.90) m/uL Hgb 11.0 L (13.0-17.5) gm/dL Hct 34.8 L (39.0-53.0) % Sodium 135 L (137-145) mmol/L Carbon Dioxide 21 L (22-30) mmol/L Creatinine 1.51 H (0.66-1.25) mg/dL Glucose 117 H (74-99) mg/dL Calcium 8.0 L (8.4-10.2) mg/dL Microbiology - Last 24 Hours (Table) 01/03/22 17:50 Blood Culture - Preliminary Blood No Growth after 24 hours 01/03/22 17:17 Urine Culture - Preliminary Urine,Clean Catch Gram Neg Bacilli
[2022-01-05] MEDS: CEFEPIME 2 GM in SODIUM CHLORIDE 0.9% 100 ML IVPB SCH ×2 (15:10→23:48)
--- NOTE | 2022-01-05 15:10 | P.PN ---
Subjective Progress Note Date: 01/05/22 no acute overnight event, indicates the right testicle pain is slightly better, swelling is stable. Afebrile. Urine culture growing gram-negative bacilli Objective - Vital Signs Vital signs: Vital Signs Temp 98.3 F 01/05/22 13:50 Pulse 68 01/05/22 13:50 Resp 18 01/05/22 13:50 BP 146/68 01/05/22 13:50 Pulse Ox 97 01/05/22 13:50 Intake & Output 01/04/22 01/05/22 01/05/22 18:59 06:59 18:59 Intake Total 1400 Balance 1400 Intake: Oral 1400 Other: Voiding Method Toilet Toilet Urinal Urinal # Voids 4 - Constitutional General appearance: Present: no acute distress - Gastrointestinal General gastrointestinal: Present: soft. Absent: distended - Genitourinary Genitourinary Comment(s): Right testicle indurated tender, no fluctuance appreciated - Labs CBC & Chem 7: 01/05/22 02:05 01/05/22 02:05 Labs: Abnormal Lab Results - Last 24 Hours (Table) 01/05/22 01/05/22 Range/Units 02:05 02:05 RBC 3.99 L (4.30-5.90) m/uL Hgb 11.0 L (13.0-17.5) gm/dL Hct 34.8 L (39.0-53.0) % Sodium 135 L (137-145) mmol/L Carbon Dioxide 21 L (22-30) mmol/L Creatinine 1.51 H (0.66-1.25) mg/dL Glucose 117 H (74-99) mg/dL Calcium 8.0 L (8.4-10.2) mg/dL Microbiology - Last 24 Hours (Table) 01/03/22 17:50 Blood Culture - Preliminary Blood No Growth after 24 hours 01/03/22 17:17 Urine Culture - Preliminary Urine,Clean Catch Gram Neg Bacilli Assessment and Plan Assessment: 76-year-old male admitted to the hospital with UTI and a right-sided orchitis. Febrile on presentation, has been afebrile since admission. Exam consistent with orchitis, on exam and review ultrasound no evidence for scrotal or intratesticular abscess. Exam slightly improved today. Urine culture growing gram-negative bacilli -elevate scrotum -Follow up on urine culture, will need a minimum of 10 days of antibiotics based on culture sensitivity
[2022-01-05] MEDS: PRAVASTATIN SODIUM 20 MG TAB PO SCH (20:53)
[2022-01-05] MEDS: ASPIRIN 81 MG PO SCH (20:53)
[2022-01-05] MEDS: TAMSULOSIN 0.4 MG CAP.ER.24H PO SCH (20:53)
[2022-01-05] MEDS: METOPROLOL SUCCINATE (ER) 50 MG TAB.ER.24H PO SCH (20:54)
[2022-01-05] MEDS: TACROLIMUS 1 MG CAP PO SCH (20:54)
[2022-01-05] MEDS: LATANOPROST 0.005% OPHTH DROPS 2.5 ML BTL BOTH EYES SCH (20:55)
[2022-01-05 21:26] VITALS: RESP 16
[2022-01-06 08:45] LABS: HCT 34.8 % (39.6-50.0); HGB 10.7 g/dL (13.0-17.0); MCH 26.3 pg (27.0-32.0); MCHC 30.7 g/dL (32.0-37.0); MCV 85.5 fL (80.0-97.0); Mean Platelet Volume 9.8 fL (9.5-12.2); NRBC Per 100 WBC 0 /100 WBCS (0.0-0.0); Platelet Count 193 X 10*3/uL (140-440); RBC 4.07 X 10*6/uL (4.40-5.60); RDW 13.8 % (11.5-14.5); WBC 4.54 X 10*3/uL (4.50-10.00)
[2022-01-06 09:01] LABS: African American GFR (CKD) 67.2 (60.0-200.0); Albumin 3.3 g/dL (3.8-4.9); Albumin/Globulin Ratio 1.38 (1.60-3.17); BUN/Creat Ratio 10.17 Ratio (12.00-20.00); Blood Urea Nitrogen 12.2 mg/dL (9.0-27.0); Calcium 8.3 mg/dL (8.7-10.3); Globulin 2.4 g/dL (1.6-3.3); Potassium 4.5 mmol/L (3.5-5.5); Total Bilirubin 0.4 mg/dL (0.30-1.20); Total Protein 5.7 g/dL (6.2-8.2)
--- NOTE | 2022-01-06 10:54 | P.PN ---
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 Patient ended up calling Dr. Parish office on Monday trying to get in was giving in appointment on Monday he could not wait his symptoms were quite bit impaired blood this time ended up coming to the emergency department at [facility] where was seen and evaluated with testing including CBC shows no elevated white blood cell he was in acute kidney disease of the time with creatinine of 1.58 GFR at 48. His liver function test were normal his urine was very abnormal with significant amount of white blood cell bacteria and nitrate in the urine. Patient ended up having abdominal and pelvic CAT scan showed sinus cystitis with a chronic diverticulitis ultrasound of the scrotum shows right epididymo Orchitis, patient also had right sided hydrocele he was started on 2 g Ceftin at the time and admitted to the hospital will be seen urology and infectious disease. 01/05: Patient is doing well today has improved significantly, his cultures still not finalize that looks like we have gram-negative bacillary patient is c urrently on Ceftin 2 g at least till tomorrow patient might and will be on oral antibiotic for 10 more days. I spoke with the daughter today answer all their questions patient otherwise is stable. 01/06: Patient is feeling much better today no fever or chills, his pain and discomfort is much better, urine culture came back positive for E. coli susceptible to all antibiotics. Patient is very stable will be discharged home today on Ceftin 250 twice a day for total of 2 weeks will be seen urology and his primary care sometimes early this week. REVIEW OF SYSTEMS Constitutional: Low-grade fever, no chills, no night sweats. No weight change. No weakness, fatigue or lethargy. No daytime sleepiness. EENT: No headache. No blurred vision or double vision, no loss of vision. No loss of Hearing, no ringing in the ears, no dizziness. No nasal drainage or congestion. No epistaxis. No sore throat. Lungs: No shortness of breath, cough, no sputum production. No wheezing. Cardiovascular: No chest pain, no lower extremity edema. No palpitations. No paroxysmal nocturnal dyspnea. No orthopnea. No lightheadedness or dizziness. No syncopal episodes. Abdominal: No abdominal pain. No nausea, vomiting. No diarrhea. No constipation. No bloody or tarry stools.. No loss of appetite. Genitourinary: Significant pain and discomfort in the scrotum on the right side along with significant pain and edema. Musculoskeletal: No myalgias. No muscle weakness, no gait dysfunction, no frequent falls. No back pain. No neck pain. Integumentary: No wounds, no lesions. No rash or pruritus. No unusual bruising. No change in hair or nails. Neurologic: No aphasia. No facial droop. No change in mentation. No head injury. No headache. No paralysis. No paresthesia. Psychiatric: No depression. No anxiety. No mood swings. Endocrine: No abnormal blood sugars. No weight change. No excessive sweating or thirst. No cold intolerance. PHYSICAL EXAMINATION Gen: This is elderly laying in bed mix comfortable in no acute respiratory distress. HEENT: Head is atraumatic, normocephalic. Pupils equal, round. Sclerae is anicteric. NECK: Supple. No JVD. No lymphadenopathy. No thyromegaly. LUNGS: Clear to auscultation. No wheezes or rhonchi. No intercostal retractions. HEART: Regular rate and rhythm. No murmur. ABDOMEN: Soft. Bowel sounds are present. No masses. No tenderness. EXTREMITIES: No pedal edema. No calf tenderness. NEUROLOGICAL: Patient is awake, alert and oriented x3. Cranial nerves 2 through 12 are grossly intact. Genitalia: His right testicle had mild hydrocele with significant pain and discomfort and tenderness at the Epididum them area. ASSESSMENT AND PLAN 1. 1 acute epididymo Orchitis: Culture was positive for E. coli will be treated with Ceftin orally for the next 2 weeks. 2 sepsis and UTI: Final culture came today as equal light susceptible to Ceftin which patient will be on for the next 2 weeks. 3 acute kidney injury: His GFR has improved repeat another CMP tomorrow. 4 history of liver transplantation for cryptogenic liver disease. On immunosuppressive medication including mycophenolate, tacrolimus) dexamethasone 5 hypertension continue metoprolol daily at bedtime 6 hyperlipidemia continue pravastatin 10 mg daily at bedtime 7 history of CVA in 2017 on aspirin 81 mg daily with pravastatin 10 mg daily 8 post nephrostomy tube and stent placement at [facility] from last year has been doing well still seen urology. 9 DVT prophylaxis: Patient will be on Lovenox. 10 GI prophylaxis: Patient be on Pepcid. Discharge planning: Patient be discharged home today on oral antibiotic for the next 10 days to 2 weeks and to follow with urology and PCP. Objective - Vital Signs Vital signs: Vital Signs Temp 97.9 F 01/06/22 08:00 Pulse 64 01/06/22 08:00 Resp 16 01/06/22 08:00 BP 158/67 01/06/22 08:00 Pulse Ox 99 01/06/22 08:00 Intake & Output 01/05/22 01/06/22 01/06/22 18:59 06:59 18:59 Intake Total 550 Balance 550 Intake: Intake, IV Titration 100 Amount Cefepime 2 gm In Sodium 100 Chloride 0.9% 100 ml @ 25 mls/hr IVPB Q12H [facility] Rx# :[id number] Oral 450 Other: Voiding Method Toilet Toilet Toilet Urinal Urinal # Voids 2 - Labs CBC & Chem 7: 01/06/22 06:05 01/06/22 06:05 Labs: Abnormal Lab Results - Last 24 Hours (Table) 01/06/22 01/06/22 Range/Units 06:05 06:05 RBC 4.07 L (4.40-5.60) X 10*6/uL Hgb 10.7 L (13.0-17.0) g/dL Hct 34.8 L (39.6-50.0) % MCH 26.3 L (27.0-32.0) pg MCHC 30.7 L (32.0-37.0) g/dL Est GFR (CKD-EPI)NonAf 58.0 L (60.0-200.0) BUN/Creatinine Ratio 10.17 L (12.00-20.00) Ratio Calcium 8.3 L (8.7-10.3) mg/dL Total Protein 5.7 L (6.2-8.2) g/dL Albumin 3.3 L (3.8-4.9) g/dL Albumin/Globulin Ratio 1.38 L (1.60-3.17) g/dL Microbiology - Last 24 Hours (Table) 01/03/22 17:50 Blood Culture - Preliminary Blood No Growth after 48 hours 01/03/22 17:17 Urine Culture - Final Urine,Clean Catch Escherichia coli
--- NOTE | 2022-01-06 10:58 | P.DS ---
Providers Date of admission: 01/05/22 08:40 Attending physician: Micah Schaeffer Consults: 01/03/22 19:55 Consult Physician Routine Consulting Provider: Landen Cotter Consult Reason/Comments: epididymoorchitis Do you want consulting provider notified?: Yes Consult Physician Routine Consulting Provider: Val Pringle Consult Reason/Comments: epididymoorchitis Do you want consulting provider notified?: Yes Primary care physician: Ron Edwards [facility] Course: HISTORY OF PRESENT ILLNESS 76-year-old one of Dr. 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 Patient ended up calling Dr. Parish office on Monday trying to get in was giving in appointment on Monday he could not wait his symptoms were quite bit impaired blood this time ended up coming to the emergency department at [facility] where was seen and evaluated with testing including CBC shows no elevated white blood cell he was in acute kidney disease of the time with creatinine of 1.58 GFR at 48. His liver function test were normal his urine was very abnormal with significant amount of white blood cell bacteria and nitrate in the urine. Patient ended up having abdominal and pelvic CAT scan showed sinus cystitis with a chronic diverticulitis ultrasound of the scrotum shows right epididymo Orchitis, patient also had right sided hydrocele he was started on 2 g Ceftin at the time and admitted to the hospital will be seen urology and infectious disease. 01/05: Patient is doing well today has improved significantly, his cultures still not finalize that looks like we have gram-negative bacillary patient is currently on Ceftin 2 g at least till tomorrow patient might and will be on oral antibiotic for 10 more days. I spoke with the daughter today answer all their questions patient otherwise is stable. 01/06: Patient is feeling much better today no fever or chills, his pain and discomfort is much better, urine culture came back positive for E. coli susceptible to all antibiotics. Patient is very stable will be discharged home today on Ceftin 250 twice a day for total of 2 weeks will be seen urology and his primary care sometimes early this week. REVIEW OF SYSTEMS Constitutional: Low-grade fever, no chills, no night sweats. No weight change. No weakness, fatigue or lethargy. No daytime sleepiness. EENT: No headache. No blurred vision or double vision, no loss of vision. No loss of Hearing, no ringing in the ears, no dizziness. No nasal drainage or congestion. No epistaxis. No sore throat. Lungs: No shortness of breath, cough, no sputum production. No wheezing. Cardiovascular: No chest pain, no lower extremity edema. No palpitations. No paroxysmal nocturnal dyspnea. No orthopnea. No lightheadedness or dizziness. No syncopal episodes. Abdominal: No abdominal pain. No nausea, vomiting. No diarrhea. No constipation. No bloody or tarry stools.. No loss of appetite. Genitourinary: Significant pain and discomfort in the scrotum on the right side along with significant pain and edema. Musculoskeletal: No myalgias. No muscle weakness, no gait dysfunction, no frequent falls. No back pain. No neck pain. Integumentary: No wounds, no lesions. No rash or pruritus. No unusual bruising. No change in hair or nails. Neurologic: No aphasia. No facial droop. No change in mentation. No head injury. No headache. No paralysis. No paresthesia. Psychiatric: No depression. No anxiety. No mood swings. Endocrine: No abnormal blood sugars. No weight change. No excessive sweating or thirst. No cold intolerance. PHYSICAL EXAMINATION Gen: This is elderly laying in bed mix comfortable in no acute respiratory distress. HEENT: Head is atraumatic, normocephalic. Pupils equal, round. Sclerae is anicteric. NECK: Supple. No JVD. No lymphadenopathy. No thyromegaly. LUNGS: Clear to auscultation. No wheezes or rhonchi. No intercostal retractions. HEART: Regular rate and rhythm. No murmur. ABDOMEN: Soft. Bowel sounds are present. No masses. No tenderness. EXTREMITIES: No pedal edema. No calf tenderness. NEUROLOGICAL: Patient is awake, alert and oriented x3. Cranial nerves 2 through 12 are grossly intact. Genitalia: His right testicle had mild hydrocele with significant pain and discomfort and tenderness at the Epididum them area. ASSESSMENT AND PLAN 1. 1 acute epididymo Orchitis: Culture was positive for E. coli will be treated with Ceftin orally for the next 2 weeks. 2 sepsis and UTI: Final culture came today as equal light susceptible to Ceftin which patient will be on for the next 2 weeks. 3 acute kidney injury: His GFR has improved repeat another CMP tomorrow. 4 history of liver transplantation for cryptogenic liver disease. On immunosuppressive medication including mycophenolate, tacrolimus) dexamethasone 5 hypertension continue metoprolol daily at bedtime 6 hyperlipidemia continue pravastatin 10 mg daily at bedtime 7 history of CVA in 2017 on aspirin 81 mg daily with pravastatin 10 mg daily 8 post nephrostomy tube and stent placement at [facility] from last year has been doing well still seen urology. 9 DVT prophylaxis: Patient will be on Lovenox. 10 GI prophylaxis: Patient be on Pepcid. Discharge planning: Patient be discharged home today on oral antibiotic for the next 10 days to 2 weeks and to follow with urology and PCP. Hospital course: She was hospitalized with fever chills significant pain and discomfort with swelling in the right testicle continue to be treated with IV antibiotic originally for 72 hours. Patient was seen infectious disease and urology final culture came back as an E. coli susceptible to all antibiotics. Patient be switched to Ceftin 250 twice a day for total of 2 weeks will be sent home to see urology and primary care sometimes next week. Time spent for his discharge: 37 minutes. Patient Condition at Discharge: Fair Plan - Discharge Summary Discharge Rx Participant: Yes New Discharge Prescriptions: New Acetaminophen Tab [Tylenol] 650 mg PO Q6HR PRN tab PRN Reason: Mild Pain Or Fever > 100.5 Cefuroxime [Ceftin] 250 mg PO BID 14 Days #28 tab Continue dexAMETHasone ORAL [Hexadrol] 0.5 mg PO HS Tamsulosin [Flomax] 0.4 mg PO HS Tacrolimus [Prograf] 1 mg PO HS mycophenolate mofetiL [Cellcept] 2,000 mg PO HS Metoprolol Succinate [Toprol XL] 50 mg PO HS Pravastatin Sodium [Pravachol] 10 mg PO HS Aspirin EC [Ecotrin Low Dose] 81 mg PO HS Latanoprost [Xalatan 0.005%] 1 drop BOTH EYES HS Discharge Medication List Metoprolol Succinate [Toprol XL] 50 mg PO HS 07/20/15 [History] Tacrolimus [Prograf] 1 mg PO HS 07/20/15 [History] Tamsulosin [Flomax] 0.4 mg PO HS 07/20/15 [History] dexAMETHasone ORAL [Hexadrol] 0.5 mg PO HS 07/20/15 [History] mycophenolate mofetiL [Cellcept] 2,000 mg PO HS 07/20/15 [History] Pravastatin Sodium [Pravachol] 10 mg PO HS 03/03/17 [History] Aspirin EC [Ecotrin Low Dose] 81 mg PO HS 03/08/21 [History] Latanoprost [Xalatan 0.005%] 1 drop BOTH EYES HS 11/28/21 [History] Acetaminophen Tab [Tylenol] 650 mg PO Q6HR PRN tab 01/06/22 [Rx] Cefuroxime [Ceftin] 250 mg PO BID 14 Days #28 tab 01/06/22 [Rx] Follow up Appointment(s)/Referral(s): Cy Parish MD [STAFF PHYSICIAN] - 1 Week Ron Edwards DO [Primary Care Provider] - 1-2 days Discharge Disposition: HOME SELF-CARE
[2022-01-06] MEDS: CEFEPIME 2 GM in SODIUM CHLORIDE 0.9% 100 ML IVPB SCH (12:44)
--- NOTE | 2022-01-06 15:46 | US ---
EXAMINATION TYPE: US kidneys/renal and bladder DATE OF EXAM: 01/06/2022 COMPARISON: Previous exam 03/12/[address] 01/03/2022 CLINICAL HISTORY: pain right flank side . Right side flank pain. EXAM MEASUREMENTS: Right Kidney: 8.5 x 5.4 x 5.7 cm Left Kidney: 9.9 x 5.1 x 5.5 cm Right Kidney: Multiple cystic lesion seen; Largest measuring 6.2 x 5.5 x 4.9cm and 4.0 x 4.5 x 4.8cm. Left Kidney: Multiple cystic lesion seen; Largest measuring 4.2 x 4.3x 4.6cm Bladder: Distended with thickened wall measuring 0.5cm Bilateral Jets seen: Yes Prominent prostate measuring 4.0 x 2.9 x 3.3cm. There is no evidence for hydronephrosis at this point in time bilaterally. No nephrolithiasis is see n. The urinary bladder is anechoic. Bilateral ureteral jets are seen. Thickened bladder wall could be due to lack of distention or chronic bladder outlet obstruction, correlate to exclude cystitis. C ortical medullary differentiation is maintained. Bilateral Renal cystic lesions and prominent prostate seen causing an inferior impression on the urin michael bladder. IMPRESSION: There are questionable low-level internal echoes within the large cyst in the right kidney, there is increased through transmission and imperceptible wall. Possible reverberation artifact. There is pro static enlargement as described. Probable chronic bladder outlet obstruction. Correlate to exclude cy stitis
[2022-01-06 17:16] VITALS: BP 167/74; PULSE 74; TEMP 98.6
--- NOTE | 2022-01-13 22:51 | P.PN ---
Subjective Progress Note Date: 01/05/22 Principal diagnosis: UTI and epididymoorchitis Patient is a 76-year-old -[place] male with a past medical history sniffing for liver transplant presented to hospital with right flank and scrotal pain has been diagnosed with complicated UTI and possible epididymoorchitis. On today's evaluation that is 01/05/2022 the patient denies having any fever or any chills patient right flank and scrotal area pain has slight decrease in intensity no nausea vomiting no abdominal pain no diarrhea Objective - Vital Signs Vital signs: Vital Signs Temp 97.8 F 01/05/22 07:12 Pulse 63 01/05/22 07:12 Resp 18 01/05/22 07:12 BP 146/75 01/05/22 07:12 Pulse Ox 100 01/05/22 07:12 Intake & Output 01/04/22 01/05/22 01/05/22 18:59 06:59 18:59 Intake Total 1400 Balance 1400 Intake: Oral 1400 Other: Voiding Method Toilet Urinal # Voids 4 - Exam GENERAL DESCRIPTION: Elderly male lying in bed in no distress RESPIRATORY SYSTEM: Unlabored breathing , decreased breath sounds at bases HEART: S1 S2 regular rate and rhythm ,no loud murmurs ABDOMEN: Soft , no tenderness EXTREMITIES: No edema feet - Labs CBC & Chem 7: 01/06/22 06:05 01/06/22 06:05 Labs: Abnormal Lab Results - Last 24 Hours (Table) 01/05/22 01/05/22 Range/Units 02:05 02:05 RBC 3.99 L (4.30-5.90) m/uL Hgb 11.0 L (13.0-17.5) gm/dL Hct 34.8 L (39.0-53.0) % Sodium 135 L (137-145) mmol/L Carbon Dioxide 21 L (22-30) mmol/L Creatinine 1.51 H (0.66-1.25) mg/dL Glucose 117 H (74-99) mg/dL Calcium 8.0 L (8.4-10.2) mg/dL Microbiology - Last 24 Hours (Table) 01/03/22 17:50 Blood Culture - Preliminary Blood No Growth after 24 hours 01/03/22 17:17 Urine Culture - Preliminary Urine,Clean Catch Gram Neg Bacilli Assessment and Plan (1) UTI (urinary tract infection) Status: Acute Code(s): N39.0 - URINARY TRACT INFECTION, SITE NOT SPECIFIED SNOMED Code(s): 95093022 (2) Epididymo-orchitis Status: Acute Code(s): N45.3 - EPIDIDYMO-ORCHITIS SNOMED Code(s): 525847603 Plan: 1patient presented to hospital with right flank and testicular pain in this patient did have evidence of a positive UA and evidence of right epididymoorchitis likely from enteric gram-negative pathogen. 2patient with history of renal transplant on immunosuppressive medication 3-continue the patient on cefepime 2 g every 12 hours while waiting for the culture to finalize 4-gentle IV fluid Time with Patient: Less than 30
--- NOTE | 2022-01-13 22:52 | P.PN ---
Subjective Progress Note Date: 01/06/22 Principal diagnosis: UTI and epididymoorchitis Patient is a 76-year-old -[place] male with a past medical history sniffing for liver transplant presented to hospital with right flank and scrotal pain has been diagnosed with complicated UTI and possible epididymoorchitis. On today's evaluation that is 01/06/2022 the patient is afebrile , the patient right flank and scrotal area pain has decrease in intensity, the pt denies nausea vomiting no abdominal pain no diarrhea Objective - Vital Signs Vital signs: Vital Signs Temp 97.9 F 01/06/22 08:00 Pulse 64 01/06/22 08:00 Resp 16 01/06/22 08:00 BP 158/67 01/06/22 08:00 Pulse Ox 99 01/06/22 08:00 Intake & Output 01/05/22 01/06/22 01/06/22 18:59 06:59 18:59 Intake Total 550 Balance 550 Intake: Intake, IV Titration 100 Amount Cefepime 2 gm In Sodium 100 Chloride 0.9% 100 ml @ 25 mls/hr IVPB Q12H [facility] Rx# :[id number] Oral 450 Other: Voiding Method Toilet Toilet Toilet Urinal Urinal # Voids 2 - Exam GENERAL DESCRIPTION: Elderly male lying in bed in no distress RESPIRATORY SYSTEM: Unlabored breathing , decreased breath sounds at bases HEART: S1 S2 regular rate and rhythm ,no loud murmurs ABDOMEN: Soft , no tenderness EXTREMITIES: No edema feet - Labs CBC & Chem 7: 01/06/22 06:05 01/06/22 06:05 Labs: Abnormal Lab Results - Last 24 Hours (Table) 01/06/22 01/06/22 Range/Units 06:05 06:05 RBC 4.07 L (4.40-5.60) X 10*6/uL Hgb 10.7 L (13.0-17.0) g/dL Hct 34.8 L (39.6-50.0) % MCH 26.3 L (27.0-32.0) pg MCHC 30.7 L (32.0-37.0) g/dL Est GFR (CKD-EPI)NonAf 58.0 L (60.0-200.0) BUN/Creatinine Ratio 10.17 L (12.00-20.00) Ratio Calcium 8.3 L (8.7-10.3) mg/dL Total Protein 5.7 L (6.2-8.2) g/dL Albumin 3.3 L (3.8-4.9) g/dL Albumin/Globulin Ratio 1.38 L (1.60-3.17) g/dL Microbiology - Last 24 Hours (Table) 01/03/22 17:50 Blood Culture - Preliminary Blood No Growth after 48 hours 01/03/22 17:17 Urine Culture - Final Urine,Clean Catch Escherichia coli Assessment and Plan (1) UTI (urinary tract infection) Status: Acute Code(s): N39.0 - URINARY TRACT INFECTION, SITE NOT SPECIFIED SNOMED Code(s): 29286428 (2) Epididymo-orchitis Status: Acute Code(s): N45.3 - EPIDIDYMO-ORCHITIS SNOMED Code(s): 092426696 Plan: 1patient presented to hospital with right flank and testicular pain in this patient did have evidence of a positive UA and evidence of right epididymoorchitis likely from enteric gram-negative pathogen. 2patient with history of renal transplant on immunosuppressive medication 3-Patient urine culture to finalize with E. coli which is sensitive pathogen patient will finish therapy with oral Ceftin and close outpatient follow-up Time with Patient: Less than 30
== END 2022-01-06 17:34 | disposition home or self-care (01) | DRG 872 ==
LOC: EC 16:02 → 4SSUR 19:54 → OBSVTOIN 01-05 08:40
PROVIDERS: ADMIT Internal Medicine Geriatric Medicine; ATTEND Internal Medicine Geriatric Medicine
PROC: 05HB33Z Insertion of Infusion Device into Right Basilic Vein, Percutaneous Approach (ICD-10-PCS; principal; 2022-01-05 13:15)
DX: A41.51 Sepsis due to Escherichia coli [E. coli] (principal); K57.92 Diverticulitis of intestine, part unspecified, without perforation or abscess without bleeding; N17.9 Acute kidney failure, unspecified; Z94.4 Liver transplant status; E78.5 Hyperlipidemia, unspecified; I10 Essential (primary) hypertension; N28.1 Cyst of kidney, acquired; N30.91 Cystitis, unspecified with hematuria; N18.2 Chronic kidney disease, stage 2 (mild); N40.0 Benign prostatic hyperplasia without lower urinary tract symptoms; I12.9 Hypertensive chronic kidney disease with stage 1 through stage 4 chronic kidney disease, or unspecified chronic kidney disease; N32.3 Diverticulum of bladder; N43.3 Hydrocele, unspecified; N45.3 Epididymo-orchitis; Z20.822 Contact with and (suspected) exposure to COVID-19; Z79.82 Long term (current) use of aspirin; Z79.899 Other long term (current) drug therapy; Z80.1 Family history of malignant neoplasm of trachea, bronchus and lung; Z80.6 Family history of leukemia; Z82.49 Family history of ischemic heart disease and other diseases of the circulatory system; Z86.73 Personal history of transient ischemic attack (TIA), and cerebral infarction without residual deficits; Z90.49 Acquired absence of other specified parts of digestive tract; Z90.79 Acquired absence of other genital organ(s); Z98.890 Other specified postprocedural states; Z98.42 Cataract extraction status, left eye; Z98.41 Cataract extraction status, right eye; Z93.6 Other artificial openings of urinary tract status; Z96.0 Presence of urogenital implants
CPT/HCPCS: 36410; 36415; 74177; 76770; 76870; 76937; 80048; 80053; 81001; 83605; 85025; 85027; 85610; 85730; 87040; 87077; 87086; 87186; 93005; 93975; 96361; 96365; 99285

== ENCOUNTER → 2022-03-30 | Outpatient (CLI) | payer MEDICARE, BC ==
[2022-03-30 16:15] LABS: Appearance,Urine Clear (Clear); Bacteria,Urine Rare /hpf; Bilirubin,Urine Negative (Negative); Blood,Urine Trace (Negative); Color,Urine Colorless; Glucose,Urine (UA) Negative (Negative); Ketones,Urine Negative (Negative); Leukocyte Esterase,Urine Moderate (Negative); Nitrite,Urine Negative (Negative); PH, Urine 6.5 (5.0-8.0); Protein,Urine Negative (Negative); RBC,Urine 1 /hpf (0-5); Specific Gravity,Urine 1.002 (1.001-1.035); Squamous Epithelial Cell,Urine <1 /hpf (0-4); Urobilinogen,Urine <2.0 mg/dL (<2.0); WBC,Urine 7 /hpf (0-5)
[2022-03-31 00:05] LABS: Basophils # (A) 0 X 10*3/uL (0.00-0.10); Basophils % (A) 0 %; Eosinophils # (A) 0.14 X 10*3/uL (0.04-0.35); Eosinophils % (A) 3.1 %; HCT 43.2 % (39.6-50.0); HGB 13.3 g/dL (13.0-17.0); Immature Grans, Automated 0.7 %; Lymphocytes % (A) 26.5 %; MCH 25.9 pg (27.0-32.0); MCHC 30.8 g/dL (32.0-37.0); Mean Platelet Volume 9.8 fL (9.5-12.2); Monocytes # (A) 0.49 X 10*3/uL (0.20-1.00); Monocytes % (A) 10.8 %; NRBC Per 100 WBC 0 /100 WBCS (0.0-0.0); Neutrophils # (A) 2.66 X 10*3/uL (1.80-7.70); Neutrophils % (A) 58.9 %; Platelet Count 190 X 10*3/uL (140-440); RBC 5.14 X 10*6/uL (4.40-5.60); RDW 13.5 % (11.5-14.5); WBC 4.52 X 10*3/uL (4.50-10.00)
[2022-03-31 02:56] LABS: ALT <5 U/L (10-49); AST 21 U/L (14-35); African American GFR (CKD) 49.3 (60.0-200.0); Albumin 3.9 g/dL (3.8-4.9); Alkaline Phosphatase 56 U/L (41-126); BUN/Creat Ratio 10.32 Ratio (12.00-20.00); Calcium 9.5 mg/dL (8.7-10.3); Carbon Dioxide 14.7 mmol/L (20.0-27.5); Chloride 100 mmol/L (96-109); Glucose 85 mg/dL (70-110); Non-African American GFR(CKD) 42.6 (60.0-200.0); Potassium 4.5 mmol/L (3.5-5.5); Sodium 133 mmol/L (135-145)
== END | disposition home or self-care (01) ==
LOC: LABWHC1 15:09
PROVIDERS: ATTEND Family Medicine
DX: R53.83 Other fatigue (principal); R31.9 Hematuria, unspecified
CPT/HCPCS: 36415; 80053; 81001; 85025

== ENCOUNTER 2022-08-22 23:47 | Inpatient (IN) | payer MEDICARE, BC ==
[2022-08-23] MEDS ORDERED: SODIUM CHLORIDE 0.9% 1,000 ML IV STA (01:42)
[2022-08-23] MEDS ORDERED: ONDANSETRON 4 MG/2 ML VIAL IVP STA (01:43)
--- NOTE | 2022-08-23 02:36 | CT ---
EXAMINATION TYPE: CT brain wo con DATE OF EXAM: 08/23/2022 COMPARISON: 03/03/2017 HISTORY: AMS, WEAKNESS CT DLP: 1094.3 mGycm Automated exposure control for dose reduction was used. Images obtained of the brain with no contrast. There is cerebral cortical atrophy. There is no mass effect or midline shift. No sign of intracranial hemorrhage. There is a 5 mm area of hypodensity in the medial anterior left internal capsule near t he lateral ventricle and consistent with old lacunar infarct. The calvarium is intact. The skull base is intact. No evidence of orbital mass. Sella turcica appears normal. IMPRESSION: Cerebral atrophy. Old small lacunar infarct left interal capsule. No acute abnormality.
--- NOTE | 2022-08-23 02:51 | XR ---
EXAMINATION TYPE: XR chest 1V DATE OF EXAM: 08/23/2022 COMPARISON: 03/03/2017 HISTORY: Weakness TECHNIQUE: Single view FINDINGS: Heart appears slightly enlarged. There is some atelectasis left lung base. There is mild co arsening of interstitial markings. Thoracic aorta is atheromatous. There is mild elevation of the lef t diaphragm. Bony thorax is intact. IMPRESSION: Mild pulmonary fibrotic changes. Old right-sided rib fractures. Mild subsegmental atelect asis left lung base. Inspiration is decreased compared to old exam. No heart failure.
[2022-08-23 02:55] LABS: Basophils % (A) 0 %; Eosinophils # (A) 0.1 k/uL (0-0.7); Eosinophils % (A) 1 %; HCT 35.2 % (39.0-53.0); HGB 11.2 gm/dL (13.0-17.5); Hypochromasia Slight; Lymphocytes # (A) 0.7 k/uL (1.0-4.8); Lymphocytes % (A) 8 %; MCH 27.2 pg (25.0-35.0); MCHC 31.8 g/dL (31.0-37.0); MCV 85.3 fL (80.0-100.0); Mean Platelet Volume 7.9; Monocytes # (A) 0.2 k/uL (0-1.0); Monocytes % (A) 2 %; Neutrophils # (A) 8.3 k/uL (1.3-7.7); Neutrophils % (A) 88 %; Platelet Count 159 k/uL (150-450); RBC 4.13 m/uL (4.30-5.90); RDW 13.9 % (11.5-15.5); WBC 9.4 k/uL (3.8-10.6)
[2022-08-23 03:10] LABS: Calcium 7.3 mg/dL (8.4-10.2); Magnesium 1.2 mg/dL (1.6-2.3); Potassium 3.1 mmol/L (3.5-5.1); Total Bilirubin 0.8 mg/dL (0.2-1.3)
[2022-08-23] MEDS: MAGNESIUM SULFATE-D5W PMX 1 GM in DEXTROSE/WATER 1 100ML.BAG IVPB SCH ×5 (03:23→14:33)
[2022-08-23 03:24] LABS: INR 1.1 (<1.2); Partial Thromboplastin Time 22.5 sec (22.0-30.0); Prothrombin Time 12.1 sec (9.0-12.0)
[2022-08-23] MEDS ORDERED: ONDANSETRON 4 MG/2 ML VIAL IM STA (03:37)
--- NOTE | 2022-08-23 04:06 | ED ---
General Adult HPI - General Chief complaint: Weakness Stated complaint: Weakness Time Seen by Provider: 08/23/22 01:05 Source: patient, family Mode of arrival: EMS - History of Present Illness Initial comments: 76-year-old male with past medical history of liver failure with transplant, CVA with right-sided weakness who presents to the emergency department for generalized weakness, nausea and vomiting. Patient reports that over the past 2 days he has had increasing weakness. Today he was at [facility] when he had sudden onset of abdominal pain, nausea and vomiting. Patient has weakness in his bilateral lower extremities however the right is more significant on the left. Patient does have previous CVA and is supposed to ambulate with a cane. Denies any sick contacts or similar symptoms. Upon my evaluation states that the abdominal pain is gone. No diarrhea, constipation, black or bloody stools. Denies any changes in his urination. No fevers or chills. Has been taking his antirejection medications as directed. No other alleviating, precipitating or modifying factors - Related Data Home Medications Medication Instructions Recorded Confirmed Metoprolol Succinate [Toprol XL] 50 mg PO HS 07/20/15 08/23/22 Tacrolimus [Prograf] 0.5 mg PO BID 07/20/15 08/23/22 Tamsulosin [Flomax] 0.4 mg PO HS 07/20/15 08/23/22 dexAMETHasone ORAL [Hexadrol] 0.5 mg PO HS 07/20/15 08/23/22 mycophenolate mofetiL [Cellcept] 1,000 mg PO BID 07/20/15 08/23/22 Pravastatin Sodium [Pravachol] 10 mg PO HS 03/03/17 08/23/22 Aspirin EC [Ecotrin Low Dose] 81 mg PO HS 03/08/21 08/23/22 Latanoprost [Xalatan 0.005%] 1 drop BOTH EYES HS 11/28/21 08/23/22 Cholecalciferol [Vitamin D3 (125 125 mcg PO HS 08/23/22 08/23/22 Mcg = 5000 Iu)] Multivitamins, Thera [Multivitamin 1 tab PO HS 08/23/22 08/23/22 (formulary)] Omeprazole Magnesium [PriLOSEC OTC] 20 mg PO HS 08/23/22 08/23/22 Allergies Allergy/AdvReac Type Severity Reaction Status Date / Time No Known Allergies Allergy Verified 08/23/22 07:35 Review of Systems ROS Statement: Those systems with pertinent positive or pertinent negative responses have been documented in the HPI. ROS Other: All systems not noted in ROS Statement are negative. 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 Past Anesthesia/Blood Transfusion Reactions: No Reported Reaction Additional Past Anesthesia/Blood Transfusion Reaction / Comment(s): Pt received blood in past without reaction. hx jaw fx- had surgery and has a plate. a little confusion when first waking up Past Psychological History: No Psychological Hx Reported Smoking Status: Never smoker Past Alcohol Use History: None Reported Past Drug Use History: None Reported - Past Family History Father Family Medical History: Cancer Additional Family Medical History / Comment(s): Father was healthy. He around the age of 83 yrs. Mother Family Medical History: Myocardial Infarction ([place]) Additional Family Medical History / Comment(s): Mother of a [place] at the age of 83 yrs. General Exam Limitations: altered mental status General appearance: lethargic Head exam: Present: atraumatic, normocephalic, normal inspection Eye exam: Present: normal appearance, PERRL, EOMI. Absent: scleral icterus, conjunctival injection, periorbital swelling ENT exam: Present: mucous membranes dry Respiratory exam: Present: normal lung sounds bilaterally. Absent: respiratory distress, wheezes, rales, rhonchi, stridor Cardiovascular Exam: Present: regular rate, normal rhythm, normal heart sounds. Absent: systolic murmur, diastolic murmur, rubs, gallop, clicks GI/Abdominal exam: Present: soft, normal bowel sounds. Absent: distended, tenderness, guarding, rebound, rigid Extremities exam: Present: other (1/5 strength RLE, 2/ strength LLE. 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 No facial droop) Course Vital Signs 08/23/22 08/23/22 08/23/22 01:03 01:32 03:17 Temperature 98.3 F Pulse Rate 96 93 101 H Respiratory 20 14 Rate Blood Pressure 91/44 105/61 96/51 O2 Sat by Pulse 99 100 Oximetry 08/23/22 08/23/22 08/23/22 06:34 06:36 07:33 Temperature 98.2 F Pulse Rate 89 98 Respiratory 20 16 Rate Blood Pressure 102/48 108/48 O2 Sat by Pulse 95 95 Oximetry 08/23/22 08/23/22 08/23/22 08:10 11:37 14:46 Temperature Pulse Rate 90 87 84 Respiratory 16 16 22 Rate Blood Pressure 111/52 105/50 113/60 O2 Sat by Pulse 95 98 97 Oximetry 08/23/22 18:07 Temperature Pulse Rate 85 Respiratory 12 Rate Blood Pressure 117/50 O2 Sat by Pulse 99 Oximetry EKG Findings - EKG Comments: EKG Findings:: EKG demonstrates sinus rhythm with a rate of 95. WV interval 194. QRS 125. QTC of 401. No acute ST segment elevations or depressions Medical Decision Making - Medical Decision Making Upon arrival patient is placed into room 1. Thorough history and physical exam is performed. Patient has bilateral lower extremity weakness - 1/5 strength on right and 2/5 on the left. Onset of symptoms is not defined and weakness is non- lateralized however IV access is established and patient taken for CT brain. Patient is given a liter bolus of normal saline. Laboratory studies are co nducted and reviewed. Creatinine is 1.7. Covid and influenza are not detected. Potassium is 3.1. Patient's given 4 mg of Zofran for nausea. Second liter bolus is administered. Potassium is replaced. CT of the brain demonstrates old lacunar infarct. Chest x-ray demonstrates mild pulmonary fibrotic changes with old right-sided rib fractures. Patient sent over for CT angiography after labs returned. There were several attempts made at contrast injection however this does fail and the patient's IV does blow on several occasions. After the last attempt, it appeared the contrast was injected however none was visualized on the CT. After significant delay, studies are performed without contrast of the abdomen and pelvis. It demonstrate no acute findings. Patient has minimal improvement in his blood pressure with fluid administration. Results are discussed with the patient, his daughter. Did recommend admission due to weakness, hypotension and concern for sepsis. Spoke with Thomas from [facility] who agreed to admit the patient - Lab Data Result diagrams: 08/27/22 04:55 08/27/22 04:55 Lab Results 08/23/22 08/23/22 08/23/22 Range/Units 02:00 02:00 02:45 WBC 9.4 (3.8-10.6) k/uL RBC 4.13 L (4.30-5.90) m/uL Hgb 11.2 L (13.0-17.5) gm/dL Hct 35.2 L (39.0-53.0) % MCV 85.3 (80.0-100.0) fL MCH 27.2 (25.0-35.0) pg MCHC 31.8 (31.0-37.0) g/dL RDW 13.9 (11.5-15.5) % Plt Count 159 (150-450) k/uL MPV 7.9 Neutrophils % 88 % Lymphocytes % 8 % Monocytes % 2 % Eosinophils % 1 % Basophils % 0 % Neutrophils # 8.3 H (1.3-7.7) k/uL Lymphocytes # 0.7 L (1.0-4.8) k/uL Monocytes # 0.2 (0-1.0) k/uL Eosinophils # 0.1 (0-0.7) k/uL Basophils # 0.0 (0-0.2) k/uL Manual Slide Review Performed Hypochromasia Slight PT (9.0-12.0) sec INR (<1.2) APTT (22.0-30.0) sec Sodium (137-145) mmol/L Potassium (3.5-5.1) mmol/L Chloride (98-107) mmol/L Carbon Dioxide (22-30) mmol/L Anion Gap mmol/L BUN (9-20) mg/dL Creatinine (0.66-1.25) mg/dL Est GFR (CKD-EPI)AfAm (>60 ml/min/1.73 sqM) Est GFR (CKD-EPI)NonAf (>60 ml/min/1.73 sqM) Glucose (74-99) mg/dL Lactic Ac Sepsis Rflx Plasma Lactic Acid Angelo (0.7-2.0) mmol/L Calcium (8.4-10.2) mg/dL Magnesium (1.6-2.3) mg/dL Total Bilirubin (0.2-1.3) mg/dL AST (17-59) U/L ALT (4-49) U/L Alkaline Phosphatase (38-126) U/L Troponin I (0.000-0.034) ng/mL NT-Pro-B Natriuret Pep pg/mL Total Protein (6.3-8.2) g/dL Albumin (3.5-5.0) g/dL Coronavirus (PCR) Not Detected (Not Detectd) Influenza Type A RNA Not Detected (Not Detectd) Influenza Type B (PCR) Not Detected (Not Detectd) 08/23/22 08/23/22 08/23/22 Range/Units 02:45 02:45 02:45 WBC (3.8-10.6) k/uL RBC (4.30-5.90) m/uL Hgb (13.0-17.5) gm/dL Hct (39.0-53.0) % MCV (80.0-100.0) fL MCH (25.0-35.0) pg MCHC (31.0-37.0) g/dL RDW (11.5-15.5) % Plt Count (150-450) k/uL MPV Neutrophils % % Lymphocytes % % Monocytes % % Eosinophils % % Basophils % % Neutrophils # (1.3-7.7) k/uL Lymphocytes # (1.0-4.8) k/uL Monocytes # (0-1.0) k/uL Eosinophils # (0-0.7) k/uL Basophils # (0-0.2) k/uL Manual Slide Review Hypochromasia PT 12.1 H (9.0-12.0) sec INR 1.1 (<1.2) APTT 22.5 (22.0-30.0) sec Sodium 142 (137-145) mmol/L Potassium 3.1 L (3.5-5.1) mmol/L Chloride 110 H (98-107) mmol/L Carbon Dioxide 22 (22-30) mmol/L Anion Gap 10 mmol/L BUN 22 H (9-20) mg/dL Creatinine 1.74 H (0.66-1.25) mg/dL Est GFR (CKD-EPI)AfAm 43 (>60 ml/min/1.73 sqM) Est GFR (CKD-EPI)NonAf 37 (>60 ml/min/1.73 sqM) Glucose 77 (74-99) mg/dL Lactic Ac Sepsis Rflx Plasma Lactic Acid Angelo 2.1 H* (0.7-2.0) mmol/L Calcium 7.3 L (8.4-10.2) mg/dL Magnesium 1.2 L (1.6-2.3) mg/dL Total Bilirubin 0.8 (0.2-1.3) mg/dL AST 24 (17-59) U/L ALT 16 (4-49) U/L Alkaline Phosphatase 46 (38-126) U/L Troponin I (0.000-0.034) ng/mL NT-Pro-B Natriuret Pep pg/mL Total Protein 5.0 L (6.3-8.2) g/dL Albumin 3.0 L (3.5-5.0) g/dL Coronavirus (PCR) (Not Detectd) Influenza Type A RNA (Not Detectd) Influenza Type B (PCR) (Not Detectd) 08/23/22 08/23/22 08/23/22 Range/Units 02:45 02:45 03:13 WBC (3.8-10.6) k/uL RBC (4.30-5.90) m/uL Hgb (13.0-17.5) gm/dL Hct (39.0-53.0) % MCV (80.0-100.0) fL MCH (25.0-35.0) pg MCHC (31.0-37.0) g/dL RDW (11.5-15.5) % Plt Count (150-450) k/uL MPV Neutrophils % % Lymphocytes % % Monocytes % % Eosinophils % % Basophils % % Neutrophils # (1.3-7.7) k/uL Lymphocytes # (1.0-4.8) k/uL Monocytes # (0-1.0) k/uL Eosinophils # (0-0.7) k/uL Basophils # (0-0.2) k/uL Manual Slide Review Hypochromasia PT (9.0-12.0) sec INR (<1.2) APTT (22.0-30.0) sec Sodium (137-145) mmol/L Potassium (3.5-5.1) mmol/L Chloride (98-107) mmol/L Carbon Dioxide (22-30) mmol/L Anion Gap mmol/L BUN (9-20) mg/dL Creatinine (0.66-1.25) mg/dL Est GFR (CKD-EPI)AfAm (>60 ml/min/1.73 sqM) Est GFR (CKD-EPI)NonAf (>60 ml/min/1.73 sqM) Glucose (74-99) mg/dL Lactic Ac Sepsis Rflx Y Plasma Lactic Acid Angelo (0.7-2.0) mmol/L Calcium (8.4-10.2) mg/dL Magnesium (1.6-2.3) mg/dL Total Bilirubin (0.2-1.3) mg/dL AST (17-59) U/L ALT (4-49) U/L Alkaline Phosphatase (38-126) U/L Troponin I 0.017 (0.000-0.034) ng/mL NT-Pro-B Natriuret Pep 568 pg/mL Total Protein (6.3-8.2) g/dL Albumin (3.5-5.0) g/dL Coronavirus (PCR) (Not Detectd) Influenza Type A RNA (Not Detectd) Influenza Type B (PCR) (Not Detectd) Disposition Clinical Impression: Dehydration, History of liver transplant, Hypotension, Nausea & vomiting Disposition: ADMITTED IP TO THIS HOSP Condition: Stable Is patient prescribed a controlled substance at d/c from ED?: No Time of Disposition: 05:49 Decision to Admit Reason: Admit from EC Decision Date: 08/23/22 Decision Time: 05:49
--- NOTE | 2022-08-23 05:32 | CT ---
EXAMINATION TYPE: CT abdomen pelvis wo con DATE OF EXAM: 08/23/2022 COMPARISON: 01/03/2022 HISTORY: abd pain, h/o liver transplant x2 CT DLP: 1041.4 mGycm Automated exposure control for dose reduction was used. Images obtained from the diaphragm to the floor the pelvis with no contrast. There is some patchy atelectasis at the lung bases. There is minimal right pleural effusion. Heart si ze is normal. No pericardial effusion. There is some air refluxed into the anterior biliary tree. Gallbladder is absent. There is no focal l iver defect. Spleen is intact. No pancreatic mass. There are numerous bilateral renal cortical cysts that measure up to 7.5 cm. No hydronephrosis. Urete rs are not dilated. No retroperitoneal adenopathy. Bladder distends smoothly. There are sigmoid diver ticula. No diverticulitis. No pelvic mass. No inguinal hernia. No free fluid in the pelvis. There is no mesenteric edema. No sign of a bowel obstruction. No free air. No ascites. There is osteopenia. There is compression fractures of multiple lumbar vertebra up to 70%. Unchanged. The bony pelvis is intact. The hip joints are intact. 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 There are varicosities. Exam limited by lack of vascular contrast. IMPRESSION: There is air reflux into the anterior biliary tree without change. No dilated ducts. There is linear infiltrate and atelectasis at the lung bases which is similar to the old exam. Small right pleural effusion without change. No discrete liver mass. Numerous renal cysts without change. 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 Sigmoid diverticulosis without diverticulitis. There is overall no adverse change compared to old exam.
--- NOTE | 2022-08-23 05:46 | CT ---
EXAMINATION TYPE: CT angio head neck DATE OF EXAM: 08/23/2022 COMPARISON: HISTORY: weakness CT DLP: 764.8 mGycm Automated exposure control for dose reduction was used. CONTRAST: Performed with IV Contrast, patient injected with 65 mL of Isovue 370. There are Three-D postprocessed images. Images obtained from the aortic arch to the vertex of the bra in. Unfortunately there is no vascular contrast seen in the mediastinum or in the head and neck. There is normal branching pattern of the great vessels on the aortic arch. No mediastinal adenopathy. No sign of a mediastinal mass. Thyroid gland is symmetric. No evidence of pharyngeal mass. Preverteb ral soft tissues are intact. No cervical adenopathy. Parotid and submandibular salivary glands are sy mmetric. The cervical vertebra have normal alignment. There is disc space narrowing at C4-5 and C5-6 and C6-7 with spurring of the endplates. No fracture. There is cerebral cortical atrophy. There is no mass effect or midline shift. No sign of intracranial hemorrhage. The calvarium is intact. IMPRESSION: Angiogram is nondiagnostic since there is no vascular contrast. There is cerebral cortical atrophy. No acute intracranial abnormality. No significant abnormality of the neck. Mild spondylotic changes in the cervical spine.
[2022-08-23] MEDS ORDERED: NALOXONE 0.4 MG/ML 1 ML VIAL IV PRN (05:50)
[2022-08-23] MEDS: SODIUM CHLORIDE 0.9% 1,000 ML IV SCH ×3 (06:02→20:13)
[2022-08-23] MEDS ORDERED: SODIUM CHLORIDE 0.9% 1,000 ML IV ONE ×2 (06:27→19:37)
[2022-08-23] MEDS ORDERED: POTASSIUM CHLORIDE 20 MEQ in WATER FOR INJECTION 1 100ML.BAG IVPB STA (06:54)
[2022-08-23] MEDS: ONDANSETRON 4 MG/2 ML VIAL IVP PRN (08:05)
[2022-08-23] MEDS: TACROLIMUS 0.5 MG CAP PO SCH (09:22)
[2022-08-23 09:52] LABS: Appearance,Urine Cloudy (Clear); Bacteria,Urine Rare /hpf; Bilirubin,Urine Negative (Negative); Blood,Urine Trace (Negative); Color,Urine Yellow; Glucose,Urine (UA) Negative (Negative); Ketones,Urine Negative (Negative); Leukocyte Esterase,Urine Large (Negative); Mucus,Urine Rare /hpf; Nitrite,Urine Positive (Negative); Protein,Urine 1+ (Negative); RBC,Urine 3 /hpf (0-5); Specific Gravity,Urine 1.019 (1.001-1.035); Squamous Epithelial Cell,Urine 1 /hpf (0-4); Urobilinogen,Urine <2.0 mg/dL (<2.0); WBC,Urine 154 /hpf (0-5)
[2022-08-23] MEDS ORDERED: POTASSIUM CHLORIDE ER 20 MEQ TAB.ER PO STA (11:27)
--- NOTE | 2022-08-23 11:27 | P.HPIM ---
History of Present Illness Patient is a pleasant 76-year-old male came in with complaints of increased weakness itchy generalized weakness and patient does have chronic weakness on the right side of the body patient has he still strength of 3/5 in by both the right upper and lower extremity. This symptoms has been going on for about 2 days. It was noted in the ER physician's note that patient has abdominal pain although patient denied any such abdominal pain to me. Patient apparently was complaining of generalized weakness as well as nausea vomiting which he denied patient doesn't have any fever chills. Patient has a history of a liver transplant on the tacrolimus Mussen mycophenolate with low magnesium which is being replaced at this time. CT angiogram of the head and neck was essentially nondiagnostic, CT of the head noncontrast showed old lacunar stroke, chest x-ray showed pulmonary fibrotic changes, CT of the chest chest showed atelectasis, findings consistent with portal venous hypertension and varices with sigmoid diverticulosis without any diverticulitis. Patient was hypotensive on admission because of chronic improvement in blood pressure with fluid administration patient was admitted. The patient is presently doing better but patient does have significant generalized weakness serum creatinine is 1.74 patient does have acute renal failure with creatinine of 1.74 baseline is around 1.2 patient did have lactic acidosis with plasma lactate of 1.3 REVIEW OF SYSTEMS: CONSTITUTIONAL: No fever, no malaise, no fatigue. HEENT: No recent visual problems or hearing problems. Denied any sore throat. CARDIOVASCULAR: No chest pain, orthopnea, PND, no palpitations, no syncope. PULMONARY: No shortness of breath, no cough, no hemoptysis. GASTROINTESTINAL: No diarrhea, no nausea, no vomiting, no abdominal pain. NEUROLOGICAL: No headaches, no weakness, no numbness. HEMATOLOGICAL: Denies any bleeding or petechiae. GENITOURINARY: Denies any burning micturition, frequency, or urgency. MUSCULOSKELETAL/RHEUMATOLOGICAL: Denies any joint pain, swelling, or any muscle pain. ENDOCRINE: Denies any polyuria or polydipsia. The rest of the 14-point review of systems is negative. PHYSICAL EXAMINATION: GENERAL: The patient is alert and oriented x3, not in any acute distress. Well developed, well nourished. HEENT: Pupils are round and equally reacting to light. EOMI. No scleral icterus. No conjunctival pallor. Normocephalic, atraumatic. No pharyngeal erythema. No thyromegaly. CARDIOVASCULAR: S1 and S2 present. No murmurs, rubs, or gallops. PULMONARY: Chest is clear to auscultation, no wheezing or crackles. ABDOMEN: Soft, nontender, nondistended, normoactive bowel sounds. No palpable organomegaly. MUSCULOSKELETAL: No joint swelling or deformity. EXTREMITIES: No cyanosis, clubbing, or pedal edema. NEUROLOGICAL: Gross neurological examination did not reveal any focal deficits. SKIN: No rashes. Assessment and plan -Acute renal failure: Probably prerenal azotemia patient does have chronic kidney disease stage II etiology of chronic kidney disease is unknown etiology of acute renal failure is not clear either patient does have lactic acidosis secondary to dehydration patient will be continued on IV fluids -Hypertension Hypomagnesemia secondary to tacrolimus magnesium will be replaced -Hypokalemia secondary to hypomagnesemia. Potassium will be replaced -Gastroesophageal reflux disease -History of liver transplant for which patient is on immunosuppressive therapy which will be continued -History of cerebrovascular accident with residual right-sided weakness And- generalized weakness for which patient will be a valid by physical therapy and patient therapy -Gastroesophageal reflux disease DVT prophylaxis: Sub- cutaneous heparin Past Medical History Past Medical History: GERD/Reflux, Hypertension, Liver Disease, Osteoarthritis (OA), Prostate Disorder, Syncope, Thyroid Disorder Additional Past Medical History / Comment(s): 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 Past Anesthesia/Blood Transfusion Reactions: No Reported Reaction Additional Past Anesthesia/Blood Transfusion Reaction / Comment(s): Pt received blood in past without reaction. hx jaw fx- had surgery and has a plate. a little confusion when first waking up Past Psychological History: No Psychological Hx Reported Smoking Status: Never smoker Past Alcohol Use History: None Reported Past Drug Use History: None Reported - Past Family History Father Family Medical History: Cancer Additional Family Medical History / Comment(s): Father was healthy. He around the age of 83 yrs. Mother Family Medical History: Myocardial Infarction ([place]) Additional Family Medical History / Comment(s): Mother of a [place] at the age of 83 yrs. Medications and Allergies Home Medications Medication Instructions Recorded Confirmed Type Metoprolol Succinate [Toprol XL] 50 mg PO HS 07/20/15 08/23/22 History Tacrolimus [Prograf] 0.5 mg PO BID 07/20/15 08/23/22 History Tamsulosin [Flomax] 0.4 mg PO HS 07/20/15 08/23/22 History dexAMETHasone ORAL [Hexadrol] 0.5 mg PO HS 07/20/15 08/23/22 History mycophenolate mofetiL [Cellcept] 1,000 mg PO BID 07/20/15 08/23/22 History Pravastatin Sodium [Pravachol] 10 mg PO HS 03/03/17 08/23/22 History Aspirin EC [Ecotrin Low Dose] 81 mg PO HS 03/08/21 08/23/22 History Latanoprost [Xalatan 0.005%] 1 drop BOTH EYES HS 11/28/21 08/23/22 History Cholecalciferol [Vitamin D3 (125 125 mcg PO HS 08/23/22 08/23/22 History Mcg = 5000 Iu)] Multivitamins, Thera [Multivitamin 1 tab PO HS 08/23/22 08/23/22 History (formulary)] Omeprazole Magnesium [PriLOSEC OTC] 20 mg PO HS 08/23/22 08/23/22 History Allergies Allergy/AdvReac Type Severity Reaction Status Date / Time No Known Allergies Allergy Verified 08/23/22 07:35 Physical Exam Vitals: Vital Signs Temp Pulse Resp BP Pulse Ox 08/23/22 08:10 90 16 111/52 95 08/23/22 07:33 98 16 108/48 95 08/23/22 06:36 98.2 F 08/23/22 06:34 89 20 102/48 95 08/23/22 03:17 101 H 96/51 08/23/22 01:32 93 14 105/61 100 08/23/22 01:03 98.3 F 96 20 91/44 99 Intake and Output 08/22/22 08/23/22 08/23/22 22:59 06:59 14:59 Other: Weight 90.718 kg Results CBC & Chem 7: 08/23/22 02:45 08/23/22 02:45 Labs: Abnormal Lab Results - Last 24 Hours (Table) 08/23/22 08/23/22 08/23/22 Range/Units 02:45 02:45 02:45 RBC 4.13 L (4.30-5.90) m/uL Hgb 11.2 L (13.0-17.5) gm/dL Hct 35.2 L (39.0-53.0) % Neutrophils # 8.3 H (1.3-7.7) k/uL Lymphocytes # 0.7 L (1.0-4.8) k/uL PT 12.1 H (9.0-12.0) sec Potassium 3.1 L (3.5-5.1) mmol/L Chloride 110 H (98-107) mmol/L BUN 22 H (9-20) mg/dL Creatinine 1.74 H (0.66-1.25) mg/dL Plasma Lactic Acid Angelo (0.7-2.0) mmol/L Calcium 7.3 L (8.4-10.2) mg/dL Magnesium 1.2 L (1.6-2.3) mg/dL Total Protein 5.0 L (6.3-8.2) g/dL Albumin 3.0 L (3.5-5.0) g/dL Urine Protein (Negative) Urine Blood (Negative) Ur Leukocyte Esterase (Negative) Urine WBC (0-5) /hpf Urine WBC Clumps (None) /hpf Urine Bacteria (None) /hpf Urine Mucus (None) /hpf 08/23/22 08/23/22 Range/Units 02:45 09:15 RBC (4.30-5.90) m/uL Hgb (13.0-17.5) gm/dL Hct (39.0-53.0) % Neutrophils # (1.3-7.7) k/uL Lymphocytes # (1.0-4.8) k/uL PT (9.0-12.0) sec Potassium (3.5-5.1) mmol/L Chloride (98-107) mmol/L BUN (9-20) mg/dL Creatinine (0.66-1.25) mg/dL Plasma Lactic Acid Angelo 2.1 H* (0.7-2.0) mmol/L Calcium (8.4-10.2) mg/dL Magnesium (1.6-2.3) mg/dL Total Protein (6.3-8.2) g/dL Albumin (3.5-5.0) g/dL Urine Protein 1+ H (Negative) Urine Blood Trace H (Negative) Ur Leukocyte Esterase Large H (Negative) Urine WBC 154 H (0-5) /hpf Urine WBC Clumps Rare H (None) /hpf Urine Bacteria Rare H (None) /hpf Urine Mucus Rare H (None) /hpf
[2022-08-23] MEDS ORDERED: traMADol 50 MG TAB PO PRN (12:59)
[2022-08-23] MEDS ORDERED: SODIUM CHLORIDE 0.9% 500 ML 500 ML IV ONE (19:34)
[2022-08-23] MEDS ORDERED: ACETAMINOPHEN IV (For NPO) 1,000 MG in EMPTY BAG 1 BAG IVPB ONE (19:35)
[2022-08-23 19:55] LABS: Glucose,Whole Blood 101 mg/dL (70-110)
--- NOTE | 2022-08-23 20:24 | XR ---
EXAMINATION TYPE: XR chest 1V portable DATE OF EXAM: 08/23/2022 COMPARISON: Today HISTORY: Fever TECHNIQUE: Single view FINDINGS: There is some mild atelectasis left and right lung base. There is mild elevation of the lef t diaphragm. Thoracic aorta is atheromatous. There is increased interstitial pulmonary density. IMPRESSION: There is some atelectasis and interstitial infiltrate at the lung bases which is increase d compared to exam earlier today. Mild heart failure not excluded.
[2022-08-23 20:34] LABS: African American GFR (CKD) 37 (>60 ml/min/1.73 sqM); Anion Gap 10 mmol/L; Blood Urea Nitrogen 24 mg/dL (9-20); Calcium 7.8 mg/dL (8.4-10.2); Carbon Dioxide 19 mmol/L (22-30); Chloride 108 mmol/L (98-107); Glucose 94 mg/dL (74-99); Magnesium 2.3 mg/dL (1.6-2.3); Non-African American GFR(CKD) 32 (>60 ml/min/1.73 sqM); Potassium 4.2 mmol/L (3.5-5.1); Sodium 137 mmol/L (137-145)
[2022-08-23 20:50] LABS: HCT 38.4 % (39.0-53.0); HGB 12.2 gm/dL (13.0-17.5); Hypochromasia Slight; MCH 27.5 pg (25.0-35.0); MCHC 31.8 g/dL (31.0-37.0); MCV 86.3 fL (80.0-100.0); Mean Platelet Volume 7.4; Platelet Count 113 k/uL (150-450); RBC 4.45 m/uL (4.30-5.90); RDW 13.6 % (11.5-15.5)
[2022-08-23 20:54] LABS: WBC 0.6 k/uL (3.8-10.6)
[2022-08-23] MEDS ORDERED: PANTOPRAZOLE 40 MG TABLET PO SCH (21:00)
[2022-08-23] MEDS ORDERED: PRAVASTATIN SODIUM 20 MG TAB PO SCH ×3 (21:00)
--- NOTE | 2022-08-23 22:59 | CT ---
EXAMINATION TYPE: CT brain wo con DATE OF EXAM: 08/23/2022 COMPARISON: Today HISTORY: worsening right upper extremity weakness, AMS. Code stroke. CT DLP: 1131.5 mGycm Automated exposure control for dose reduction was used. Images of the brain obtained with no contrast. There is cerebral cortical atrophy. There is no mass effect or midline shift. There is some hypodensi ty in the left parietal lobe alvarado and white matter. The calvarium is intact. There is normal aeration of the mastoid sinuses. There is 5 mm old lacunar infarct in the anterior left internal capsule mirna cent to the frontal horn left lateral ventricle. IMPRESSION: There is 4 cm poorly marginated area of hypodensity in the left parietal lobe consistent with acute i nfarct and isn't changed compared to recent exam. No hemorrhage seen. Cerebral atrophy.
--- NOTE | 2022-08-24 01:23 | US ---
EXAMINATION TYPE: US carotid duplex BILAT DATE OF EXAM: 08/24/2022 COMPARISON: CTA: 08/23/22 Ultrasound 10/08/2012 CLINICAL HISTORY: acute stroke. stroke TECHNIQUE: Carotid duplex ultrasound examination. Indirect Doppler criteria was utilized. 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 Right distal ICA velocity appeared elevated. Vertebral arteries seemed panchito vated bilaterally. IMPRESSION: There is bilateral plaque formation. There is bilateral mild elevation of the internal carotid artery velocities. There is antegrade flow in the vertebral arteries. The images and measurement suggests 50-70% stenosi s in both internal carotid arteries. Criteria for Assigning % of Stenosis / Diameter reduction (Estimation based on the indirect measurements of the internal carotid artery velocities (ICA PSV). 1. Normal (no stenosis)=ICA PSV < 125 cm/s: ratio < 2.0: ICA EDV<40 cm/s. 2. Less than 50% stenosis=ICA PSV < 125 cm/s: ratio < 2.0: ICA EDV<40 cm/s. 3. 50 to 69% stenosis=ICA PSV of 125 to 230 cm/s: ration 2.0 ? 4.0: ICA EDV 40-100 cm/s. 4. Greater than 70% stenosis to near occlusion= ICA PSV > 230 cm/s: ratio > 4.0: ICA EDV > 100 cm/s. 5. Near occlusion= ICA PSV velocities may be low or undetectable: variable ratio and ICA EDV. 6. Total occlusion=unable to detect flow.
[2022-08-24] MEDS ORDERED: DEXTROSE 50% SYRINGE 50 ML IVP ONE ×2 (01:45→07:26)
[2022-08-24 01:46] LABS: Glucose,Whole Blood 73 mg/dL (70-110)
[2022-08-24 02:01] LABS: Glucose,Whole Blood 119 mg/dL (70-110)
[2022-08-24 02:26] LABS: Glucose,Whole Blood 95 mg/dL (70-110)
[2022-08-24 02:34] LABS: ABG Base Excess -8.3 mmol/L; ABG HCO3 17 mmol/L (21-25); ABG Oxygen Saturation 98.1 % (94-97); ABG PCO2 27 mmHg (35-45); ABG PO2 84 mmHg (83-108); ABG TCO2 17 mmol/L (19-24); Allen Test Performed? Yes
[2022-08-24] MEDS: ONDANSETRON 4 MG/2 ML VIAL IVP PRN (03:05)
--- NOTE | 2022-08-24 03:19 | XR ---
EXAMINATION TYPE: XR chest 1V DATE OF EXAM: 08/24/2022 COMPARISON: Yesterday HISTORY: Possible pneumonia. Chest pain TECHNIQUE: Single view FINDINGS: There is some mild airspace infiltrate in the mid and lower lung hardy bilaterally. No def inite heart failure. There are no hilar masses. Thoracic aorta is atheromatous. IMPRESSION: Mild bilateral lower lobe pulmonary infiltrates not significantly different than yesterda y. No definite heart failure.
[2022-08-24] MEDS: LATANOPROST 0.005% OPHTH DROPS 2.5 ML BTL BOTH EYES SCH ×2 (03:37→21:16)
[2022-08-24] MEDS: CHOLECALCIFEROL 125 MCG (5000 IU) TABLET PO SCH ×2 (03:37→20:29)
[2022-08-24] MEDS: METOPROLOL SUCCINATE (ER) 50 MG TAB.ER.24H PO SCH ×2 (03:37→20:30)
[2022-08-24] MEDS: MULTIVITAMINS, THERA 1 EACH TAB PO SCH ×2 (03:38→20:30)
[2022-08-24] MEDS: TACROLIMUS 0.5 MG CAP PO SCH ×3 (03:38→20:30)
[2022-08-24] MEDS: TAMSULOSIN 0.4 MG CAP.ER.24H PO SCH ×2 (03:38→20:30)
[2022-08-24] MEDS: ATORVASTATIN 40 MG TAB PO SCH ×2 (03:38→20:29)
[2022-08-24] MEDS: HEPARIN SODIUM,PORCINE/PF 5,000 UNIT/0.5 ML SYRINGE SQ SCH ×3 (03:38→20:49)
[2022-08-24] MEDS: ASPIRIN 81 MG PO SCH ×2 (03:39→08:17)
[2022-08-24] MEDS: PIPERACILLIN-TAZOBACTAM 3.375 GM in SODIUM CHLORIDE 0.9% 100 ML IVPB SCH ×4 (03:39→23:09)
[2022-08-24] MEDS: SODIUM CHLORIDE 0.9% 1,000 ML IV SCH ×2 (03:39→06:53)
[2022-08-24] MEDS: NOREPINEPHRINE 4 MG in SODIUM CHLORIDE 0.9% 250 ML IV SCH ×3 (04:44→20:49)
[2022-08-24 06:00] LABS: Glucose,Whole Blood 74 mg/dL (70-110)
[2022-08-24 07:05] LABS: HCT 46.5 % (39.0-53.0); Hypochromasia Marked; MCH 27.1 pg (25.0-35.0); MCV 90.2 fL (80.0-100.0); Mean Platelet Volume 7.7; Platelet Count 95 k/uL (150-450); RBC 5.16 m/uL (4.30-5.90); RDW 13.9 % (11.5-15.5); WBC 4.1 k/uL (3.8-10.6)
[2022-08-24 07:09] LABS: Calcium 7.5 mg/dL (8.4-10.2); Magnesium 2.1 mg/dL (1.6-2.3)
[2022-08-24 07:11] LABS: Potassium 4.3 mmol/L (3.5-5.1)
[2022-08-24 07:17] LABS: Glucose,Whole Blood 66 mg/dL (70-110)
[2022-08-24 07:37] LABS: Glucose,Whole Blood 90 mg/dL (70-110)
[2022-08-24 08:03] LABS: Band Neutrophils % 6 %; Lymphocytes # (M) 0.08 k/uL (1.0-4.8); Metamyelocytes # (M) 0.04 k/uL (0); Metamyelocytes % 1 %; Monocytes # (M) 0.08 k/uL (0-1.0); Neutrophils % (M) 89 %; Nucleated Red Blood Cells 0 /100 WBC (0-0); Total Cells Counted 100
[2022-08-24] MEDS: ACETAMINOPHEN IV (For NPO) 1,000 MG in EMPTY BAG 1 BAG IVPB PRN ×2 (08:16→17:05)
[2022-08-24] MEDS: FAMOTIDINE 20 MG TAB PO SCH (08:17)
[2022-08-24 09:45] LABS: ABG Base Excess -10.2 mmol/L; ABG HCO3 15 mmol/L (21-25); ABG Oxygen Saturation 97.6 % (94-97); ABG PCO2 27 mmHg (35-45); ABG PH 7.37 (7.35-7.45); ABG PO2 86 mmHg (83-108); ABG TCO2 16 mmol/L (19-24); Allen Test Performed? Yes
--- NOTE | 2022-08-24 10:54 | XR ---
EXAMINATION TYPE: XR chest 1V portable DATE OF EXAM: 08/24/2022 COMPARISON: Chest x-ray 08/24/2022 at earlier time HISTORY: Status post central venous catheter placement TECHNIQUE: Single frontal view of the chest is obtained. FINDINGS: There is been interval placement of a left subclavian central venous catheter, distal tip is near the cavoatrial junction. No evident pneumothorax or other significant interval change. IMPRESSION: No evident complication status post central venous catheter placement.
[2022-08-24 11:21] LABS: ALT 68 U/L (4-49); AST 267 U/L (17-59); Alkaline Phosphatase 89 U/L (38-126)
[2022-08-24 11:42] LABS: Glucose,Whole Blood 54 mg/dL (70-110)
--- NOTE | 2022-08-24 11:43 | P.CNNES ---
History of Present Illness Consult date: 08/24/22 Requesting physician: Aisha Taylor Reason for Consult: wrosening right sided weakness History of Present Illness: This is a 76-year-old gentleman with history of stroke, liver failure status post transplant, hypertension presented emergency department because of generalized weakness and nausea and vomiting. History is obtained from patient's grandson (who is at bedside) and medical records. Per the grandson and he stated that the patient was feeling weak not feeling himself this past Monday sometime late afternoon or close to evening. Per the grandson possibly the patient had some weakness over the right side that started around Monday unknown exact time of onset and was worsening and he was favoring one side or the other. Per the son prior to this patient was using the right side but had some lower extremity weakness and has knee pain. He was not aware that the patient had a stroke but is seems that he had a stroke in 2017. Seems that yesterday patient condition was worsening and had worsening right- sided weakness and unsure last normal state. Per the nursing the notes family stated that the patient has some mild weakness over the right but was able to cut [address] the tractor prior to admission to the hospital. On initial presentation the patient had CT of the head is reported as cerebral atrophy. Old small cortical infarct in the left internal capsule. No acute abnormality. Patient had CT angiography of the head and neck is reported as angiogram is nondiagnostic since there is no vascular contrast. There is cerebral or cortical atrophy. No acute intercranial abnormality. No significant abnormality of the neck. Mild spondylitic changes in the cervical spine. It is documented by the patient's nurse at at floor nurse that the patient the right upper extremity lower extremity weakness was worsening and the patient was essentially was flaccid of the right lower and has significant weakness of the right upper extremity and minor facial droop on the right. As a result a code stroke was activated at 2229 on 08/23/2022. As a result the patient had a repeat CT of the head as reported as there is a 4 cm poorly marginated area of hypodensity in the left parietal lobe consistent with acute infarct and isn't changed compared to recent exam. No hemorrhage seen. Cerebral atrophy. Then later, reading radiologist has addendum and reports it is that acute infarct is a change compared to recent exam. The stroke attending (Dr. Serrato) was notified of case and stated no IV tpa since unknown last normal and the risk outweigh the benefit (but it appears patient is outside window). Carotid duplex was reported as there is bilateral plaque formation. There is bilateral mild elevation of the internal carotid artery velocity. There is anterior grade flow in the vertebral arteries. The images and measurements suggest 50-70% stenosis of both internal carotid arteries. Of note patient is on home medication for aspirin 81 and pravastatin 10 mg daily at bedtime. Some of the other workup during this hospital visit consisted of: On initial presentation patient's temperature was 98.3 but then the patient was having fever episodes as high as 103.2 that was a T-max. Blood pressure systolic was in the range of 80s to 120s and diastolic 40s to 60s. Initial white blood cells 9.4 thousand Possible like acid venous 2.1 to 4.8 Patient most recent serum glucose is 63 in the POC glucose is 66 but improved down to 90 Calcium 7.5, magnesium is 1.2, Mike is trending up initially 1.74 and now 2.53. Urine Analysis seems possible suggestive for urinary tract infection. Next Dee virus was not detected. I personally reviewed the CT of the head on the most recent CT that was done last and I felt the left parietal seemed acute. There is no intraparenchymal hemorrhage. And then I was compared it to initial CT head on presentation, I felt different in which, I did not notice any remarkable acute ischemic in left parietal on initial CT. Review of Systems Review of system: The 12 point system was reviewed and apparent positive and negative per HPI. 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 Past Anesthesia/Blood Transfusion Reactions: No Reported Reaction Additional Past Anesthesia/Blood Transfusion Reaction / Comment(s): Pt received blood in past without reaction. hx jaw fx- had surgery and has a plate. a little confusion when first waking up Past Psychological History: No Psychological Hx Reported Smoking Status: Never smoker Past Alcohol Use History: None Reported Past Drug Use History: None Reported - Past Family History Father Family Medical History: Cancer Additional Family Medical History / Comment(s): Father was healthy. He around the age of 83 yrs. Mother Family Medical History: Myocardial Infarction (OK) Additional Family Medical History / Comment(s): Mother of a OK at the age of 83 yrs. Medications and Allergies Home Medications Medication Instructions Recorded Confirmed Type Metoprolol Succinate [Toprol XL] 50 mg PO HS 07/20/15 08/23/22 History Tacrolimus [Prograf] 0.5 mg PO BID 07/20/15 08/23/22 History Tamsulosin [Flomax] 0.4 mg PO HS 07/20/15 08/23/22 History dexAMETHasone ORAL [Hexadrol] 0.5 mg PO HS 07/20/15 08/23/22 History mycophenolate mofetiL [Cellcept] 1,000 mg PO BID 07/20/15 08/23/22 History Pravastatin Sodium [Pravachol] 10 mg PO HS 03/03/17 08/23/22 History Aspirin EC [Ecotrin Low Dose] 81 mg PO HS 03/08/21 08/23/22 History Latanoprost [Xalatan 0.005%] 1 drop BOTH EYES HS 11/28/21 08/23/22 History Cholecalciferol [Vitamin D3 (125 125 mcg PO HS 08/23/22 08/23/22 History Mcg = 5000 Iu)] Multivitamins, Thera [Multivitamin 1 tab PO HS 08/23/22 08/23/22 History (formulary)] Omeprazole Magnesium [PriLOSEC OTC] 20 mg PO HS 08/23/22 08/23/22 History Allergies Allergy/AdvReac Type Severity Reaction Status Date / Time No Known Allergies Allergy Verified 08/23/22 07:35 Physical Examination - Vital Signs Vital Signs: Vital Signs Temp Pulse Pulse Resp BP BP Pulse Ox 08/24/22 08:30 112 H 28 H 109/47 95 08/24/22 08:04 100 08/24/22 08:00 101.8 F H 113 H 28 H 107/59 97 08/24/22 07:30 105 H 10 L 106/58 99 08/24/22 07:00 109 H 19 100/65 100 08/24/22 06:30 109 H 23 127/57 100 08/24/22 06:00 114 H 15 115/59 99 08/24/22 05:30 113 H 16 115/50 99 08/24/22 05:00 111 H 30 H 89/52 100 08/24/22 04:45 110 H 18 92/52 100 08/24/22 04:30 110 H 11 L 95/45 100 08/24/22 04:15 116 H 15 95/42 99 08/24/22 04:00 100.5 F H 113 H 23 101/49 100 08/24/22 03:45 109 H 19 107/48 99 08/24/22 03:30 109 H 18 102/55 98 08/24/22 03:15 114 H 16 102/55 98 08/24/22 03:00 117 H 19 92/50 99 08/24/22 02:45 117 H 22 98/48 98 08/24/22 02:30 103.5 F H 130 H 27 H 85/47 96 08/23/22 21:10 100.3 F H 114 H 19 143/67 100 08/23/22 20:14 103.2 F H 94 19 143/63 94 L 08/23/22 20:10 103.2 F H 125 H 18 135/57 94 L 08/23/22 19:20 103.1 F H 08/23/22 19:10 100.8 F H 08/23/22 18:07 85 12 117/50 99 08/23/22 14:46 84 22 113/60 97 08/23/22 11:37 87 16 105/50 98 Intake and Output 08/23/22 08/24/22 08/24/22 22:59 06:59 14:59 Intake Total 520 130 Output Total 105 75 Balance 415 55 Intake: IV 520 130 Sodium Chloride 0.9% 1, 520 130 000 ml @ 130 mls/hr IV . [id number] [facility] Rx#:[id number] Output: Urine 105 75 Other: Voiding Method Indwelling Catheter # Voids 1 # Bowel Movements 1 GENERAL: The patient is lying in bed and is not in acute distress. CHEST: The heart rate is regular rate rhythm. No murmurs to auscultation. LUNG: Clear to auscultation bilaterally no wheezing noted throughout. Not labored breathing. ABDOMEN/GI: Bowel sounds present in all 4 quadrants. No tenderness to palpation throughout. NEUROLOGICAL: Higher mental function: The patient is drowsy but is awakeable to voice. Is oriented to self, time. He correctly stated he was in the hospital. Patient is able to name objects (pen and watch). Mild slow responding but responding appropriately. Patient is following simple commands. No aphasia. Cranial nerves: The pupils are round, equal and reactive to light. Visual hardy are full to confrontation throughout. Extraocular movement is intact no nystagmus is noted. Unable to assess facial sensation because of cooperation. Mild right lower facial droop.Tongue is midline and moved [id number] without any difficulty. Mild dysarthria is noted. Has hypophonia. Motor: The strength is 0 over the right upper and lower. Decrease tone over the right side. Left upper is lifting above gravity without difficulty. Left lower is able to bend knees. Normal bulk. Cerebellum: Unable to assess because of cooperation. Sensation: Unable to assess because of cooperation. Reflexes (right/left): 1+ throughout Plantars are mute bilaterally. Results - Laboratory Findings CBC and BMP: 08/24/22 06:39 08/24/22 06:39 Abnormal Lab Findings: Abnormal Labs 08/23/22 08/23/22 08/23/22 02:45 02:45 02:45 WBC RBC 4.13 L Hgb 11.2 L Hct 35.2 L MCHC Plt Count Neutrophils # 8.3 H Lymphocytes # 0.7 L Lymphocytes # (Manual) Metamyelocytes # (Man) PT 12.1 H ABG pCO2 ABG HCO3 ABG Total CO2 ABG O2 Saturation Potassium 3.1 L Chloride 110 H Carbon Dioxide BUN 22 H Creatinine 1.74 H Glucose POC Glucose (mg/dL) Plasma Lactic Acid Angelo Calcium 7.3 L Magnesium 1.2 L Troponin I Total Protein 5.0 L Albumin 3.0 L Procalcitonin Urine Protein Urine Blood Ur Leukocyte Esterase Urine WBC Urine WBC Clumps Urine Bacteria Urine Mucus 08/23/22 08/23/22 08/23/22 02:45 09:15 19:48 WBC 0.6 L* RBC Hgb 12.2 L Hct 38.4 L MCHC Plt Count 113 L Neutrophils # Lymphocytes # Lymphocytes # (Manual) Metamyelocytes # (Man) PT ABG pCO2 ABG HCO3 ABG Total CO2 ABG O2 Saturation Potassium Chloride Carbon Dioxide BUN Creatinine Glucose POC Glucose (mg/dL) Plasma Lactic Acid Angelo 2.1 H* Calcium Magnesium Troponin I Total Protein Albumin Procalcitonin Urine Protein 1+ H Urine Blood Trace H Ur Leukocyte Esterase Large H Urine WBC 154 H Urine WBC Clumps Rare H Urine Bacteria Rare H Urine Mucus Rare H 08/23/22 08/23/22 08/23/22 19:48 19:48 19:48 WBC RBC Hgb Hct MCHC Plt Count Neutrophils # Lymphocytes # Lymphocytes # (Manual) Metamyelocytes # (Man) PT ABG pCO2 ABG HCO3 ABG Total CO2 ABG O2 Saturation Potassium Chloride 108 H Carbon Dioxide 19 L BUN 24 H Creatinine 1.95 H Glucose POC Glucose (mg/dL) Plasma Lactic Acid Angelo 2.2 H* Calcium 7.8 L Magnesium Troponin I 0.041 H* Total Protein Albumin Procalcitonin Urine Protein Urine Blood Ur Leukocyte Esterase Urine WBC Urine WBC Clumps Urine Bacteria Urine Mucus 08/23/22 08/23/22 08/24/22 19:48 23:25 02:00 WBC RBC Hgb Hct MCHC Plt Count Neutrophils # Lymphocytes # Lymphocytes # (Manual) Metamyelocytes # (Man) PT ABG pCO2 ABG HCO3 ABG Total CO2 ABG O2 Saturation Potassium Chloride Carbon Dioxide BUN Creatinine Glucose POC Glucose (mg/dL) 119 H Plasma Lactic Acid Angelo Calcium Magnesium Troponin I 0.346 H* Total Protein Albumin Procalcitonin 30.40 H Urine Protein Urine Blood Ur Leukocyte Esterase Urine WBC Urine WBC Clumps Urine Bacteria Urine Mucus 08/24/22 08/24/22 08/24/22 02:01 02:01 02:28 WBC RBC Hgb Hct MCHC Plt Count Neutrophils # Lymphocytes # Lymphocytes # (Manual) Metamyelocytes # (Man) PT ABG pCO2 27 L ABG HCO3 17 L ABG Total CO2 17 L ABG O2 Saturation 98.1 H Potassium Chloride Carbon Dioxide BUN Creatinine Glucose POC Glucose (mg/dL) Plasma Lactic Acid Angelo 2.6 H* Calcium Magnesium Troponin I 0.491 H* Total Protein Albumin Procalcitonin Urine Protein Urine Blood Ur Leukocyte Esterase Urine WBC Urine WBC Clumps Urine Bacteria Urine Mucus 08/24/22 08/24/22 08/24/22 06:39 06:39 06:39 WBC RBC Hgb Hct MCHC 30.0 L Plt Count 95 L Neutrophils # Lymphocytes # Lymphocytes # (Manual) 0.08 L Metamyelocytes # (Man) 0.04 H PT ABG pCO2 ABG HCO3 ABG Total CO2 ABG O2 Saturation Potassium Chloride 113 H Carbon Dioxide 15 L BUN 26 H Creatinine 2.53 H Glucose 63 L POC Glucose (mg/dL) Plasma Lactic Acid Angelo 4.8 H* Calcium 7.5 L Magnesium Troponin I Total Protein Albumin Procalcitonin Urine Protein Urine Blood Ur Leukocyte Esterase Urine WBC Urine WBC Clumps Urine Bacteria Urine Mucus 08/24/22 07:15 WBC RBC Hgb Hct MCHC Plt Count Neutrophils # Lymphocytes # Lymphocytes # (Manual) Metamyelocytes # (Man) PT ABG pCO2 ABG HCO3 ABG Total CO2 ABG O2 Saturation Potassium Chloride Carbon Dioxide BUN Creatinine Glucose POC Glucose (mg/dL) 66 L Plasma Lactic Acid Angelo Calcium Magnesium Troponin I Total Protein Albumin Procalcitonin Urine Protein Urine Blood Ur Leukocyte Esterase Urine WBC Urine WBC Clumps Urine Bacteria Urine Mucus Assessment and Plan Assessment: This is a 76-year-old gentleman who presented because of weakness over the right side and was worsening. Was felt his weakness started on 08/22/2022. * Acute ischemic stroke over left parietal (on CT) with presentation of worsening right sided weakness. On examination he has right sided hemiplegia, dysarthria, right facial weakness. No IV tpa since unknown last normal (but seems outside window) * Altered mental status seems due to multifactorial: Septic encephalopathy (UTI) and possible aspiration pneumonia, metabolic encephalopathy due to worsening kidney function, hypoglycemia and electrolyte disturbance and due to stroke * Carotid stenosis 50-70% bilateral ICA on carotid duplex * Sepsis (likely due to UTI, and possible aspiration pneumonia) * Acute on chronic kidney insufficiency * History of old stroke with some weakness possible lower weakness but was able to ambulate * History of liver failure s/p transplant Plan: I ordered MRI of the brain, MRA of the head stat Currently the patient is on aspirin 81 mg daily (home meds) and once his platelets improves recommend dual antiplatelet of aspirin 81 and Plavix 75 mg daily. Continue Lipitor 40 mg daily at bedtime for secondary stroke prophylaxis 2-D echo was ordered and is pending I ordered lipid panel [employer] vascular surgery team for the carotid stenosis PT, OT and [facility] are consulted Continue neuro checks Avoid hypotensive episodes and recommend systolic blood pressure 140-180. On cardiac monitoring ID team is consulted We'll defer the rest of the medical management to the primary and ICU team For DVT prophylaxis the patient is on subcu heparin 5000 units every 12 hours The plan is discussed with the patient's grandson (who is at bedside) and his daughter (via phone). From neurological perspective no need for transfer to [facility] since no intervention or escalation of care is needed. Patient condition is a very guarded to critical. Thank you for the consultation. Time with Patient: Greater than 30
[2022-08-24 11:54] LABS: Chol/HDL Ratio 4.11 Ratio; LDL Cholesterol,Calculated 61.6 mg/dL (0.0-131.0)
[2022-08-24 12:00] LABS: Glucose,Whole Blood 85 mg/dL (70-110)
--- NOTE | 2022-08-24 12:20 | P.NPCON ---
History of Present Illness - Reason for Consult acute renal failure, chronic renal failure - History of Present Illness Reason for consultation: Acute kidney injury on chronic kidney disease History of present illness: Patient is a 76-year-old male seen in renal consultation for acute kidney injury on chronic kidney disease. Patient has chronic kidney disease stage IIIa with baseline creatinine in the range of 1.2-1.5. Etiology is nephrosclerosis and chronic use of calcineurin inhibitor. Patient has history of liver transplant from [facility] and is maintained on steroids, CellCept as well as Prograf. Patient presented to the hospital with nausea vomiting and abdominal pain. Creatinine on admission was 1.74 and is up to 2.[address] angiogram of the head and neck on 08/23/2022 that showed no acute intracranial abnormality. CT of the abdomen and pelvis showed no evidence of hydronephrosis. Patient subsequently became hypoxic and was transferred to ICU. He is currently on nasal cannula. Blood pressures stable. He is on Levophed support. Urine output has been 15-20 mL an hour. Due to risk for aspiration, he's unable to take oral medications. He has been vomiting. UA suggestive of UTI. I don't see any nonsteroidals and his home medication list. No history of diabetes. Vital signs are stable. On vasopressor support. General: Awake. Lethargic. HEENT: Nasal cannula noted. LUNGS: Breath sounds decreased. HEART: Tachycardic. ABDOMEN: Soft, mild distention. EXTREMITITES: No edema. 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 Past Anesthesia/Blood Transfusion Reactions: No Reported Reaction Additional Past Anesthesia/Blood Transfusion Reaction / Comment(s): Pt received blood in past without reaction. hx jaw fx- had surgery and has a plate. a little confusion when first waking up Past Psychological History: No Psychological Hx Reported Smoking Status: Never smoker Past Alcohol Use History: None Reported Past Drug Use History: None Reported - Past Family History Father Family Medical History: Cancer Additional Family Medical History / Comment(s): Father was healthy. He around the age of 83 yrs. Mother Family Medical History: Myocardial Infarction ([place]) Additional Family Medical History / Comment(s): Mother of a [place] at the age of 83 yrs. Medications and Allergies Home Medications Medication Instructions Recorded Confirmed Type Metoprolol Succinate [Toprol XL] 50 mg PO HS 07/20/15 08/23/22 History Tacrolimus [Prograf] 0.5 mg PO BID 07/20/15 08/23/22 History Tamsulosin [Flomax] 0.4 mg PO HS 07/20/15 08/23/22 History dexAMETHasone ORAL [Hexadrol] 0.5 mg PO HS 07/20/15 08/23/22 History mycophenolate mofetiL [Cellcept] 1,000 mg PO BID 07/20/15 08/23/22 History Pravastatin Sodium [Pravachol] 10 mg PO HS 03/03/17 08/23/22 History Aspirin EC [Ecotrin Low Dose] 81 mg PO HS 03/08/21 08/23/22 History Latanoprost [Xalatan 0.005%] 1 drop BOTH EYES HS 11/28/21 08/23/22 History Cholecalciferol [Vitamin D3 (125 125 mcg PO HS 08/23/22 08/23/22 History Mcg = 5000 Iu)] Multivitamins, Thera [Multivitamin 1 tab PO HS 08/23/22 08/23/22 History (formulary)] Omeprazole Magnesium [PriLOSEC OTC] 20 mg PO HS 08/23/22 08/23/22 History Allergies Allergy/AdvReac Type Severity Reaction Status Date / Time No Known Allergies Allergy Verified 08/23/22 07:35 Physical Exam Vitals: Vital Signs Temp Pulse Pulse Resp BP BP Pulse Ox 08/24/22 11:10 98.1 F 08/24/22 11:00 113 H 22 124/60 95 08/24/22 10:45 128 H 22 101/53 94 L 08/24/22 10:30 112 H 20 95/50 94 L 08/24/22 10:15 112 H 24 107/51 95 08/24/22 10:00 105 H 20 85/41 93 L 08/24/22 09:45 110 H 28 H 81/55 95 08/24/22 09:30 122 H 22 93/37 96 08/24/22 09:15 115 H 13 100/46 97 08/24/22 09:00 113 H 22 86/44 94 L 08/24/22 08:45 121 H 13 91/52 95 08/24/22 08:30 112 H 28 H 109/47 95 08/24/22 08:04 100 08/24/22 08:00 101.8 F H 113 H 28 H 107/59 97 08/24/22 07:30 105 H 10 L 106/58 99 08/24/22 07:00 109 H 19 100/65 100 08/24/22 06:30 109 H 23 127/57 100 08/24/22 06:00 114 H 15 115/59 99 08/24/22 05:30 113 H 16 115/50 99 08/24/22 05:00 111 H 30 H 89/52 100 08/24/22 04:45 110 H 18 92/52 100 08/24/22 04:30 110 H 11 L 95/45 100 08/24/22 04:15 116 H 15 95/42 99 08/24/22 04:00 100.5 F H 113 H 23 101/49 100 08/24/22 03:45 109 H 19 107/48 99 08/24/22 03:30 109 H 18 102/55 98 08/24/22 03:15 114 H 16 102/55 98 08/24/22 03:00 117 H 19 92/50 99 08/24/22 02:45 117 H 22 98/48 98 08/24/22 02:30 103.5 F H 130 H 27 H 85/47 96 08/23/22 21:10 100.3 F H 114 H 19 143/67 100 08/23/22 20:14 103.2 F H 94 19 143/63 94 L 08/23/22 20:10 103.2 F H 125 H 18 135/57 94 L 08/23/22 19:20 103.1 F H 08/23/22 19:10 100.8 F H 08/23/22 18:07 85 12 117/50 99 08/23/22 14:46 84 22 113/60 97 Intake and Output 08/23/22 08/24/22 08/24/22 22:59 06:59 14:59 Intake Total 520 618.622 Output Total 105 125 Balance 415 493.622 Intake: IV 520 520 Sodium Chloride 0.9% 1, 520 520 000 ml @ 130 mls/hr IV . Q7H42M TAMARA Rx#:[id number] Intake, IV Titration 98.622 Amount Norepinephrine 4 mg In 98.622 Sodium Chloride 0.9% 250 ml @ 0.03 MCG/KG/MIN 10. 369 mls/hr IV .Q24H TAMARA Rx#:[id number] Output: Urine 105 125 Other: Voiding Method Indwelling Catheter Indwelling Catheter # Voids 1 # Bowel Movements 1 Results - Lab Results Most recent lab results ABG pH 7.37 (7.35-7.45) 08/24/22 09:43 ABG pCO2 27 mmHg (35-45) L 08/24/22 09:43 ABG pO2 86 mmHg (83-108) 08/24/22 09:43 ABG HCO3 15 mmol/L (21-25) L 08/24/22 09:43 ABG O2 Saturation 97.6 % (94-97) H 08/24/22 09:43 Calcium 7.5 mg/dL (8.4-10.2) L 08/24/22 06:39 Magnesium 2.1 mg/dL (1.6-2.3) 08/24/22 06:39 08/24/22 06:39 08/24/22 06:39 Assessment and Plan Plan: Assessment: 1. Acute kidney injury secondary to ATN secondary to septic shock and contrast- induced acute kidney injury. Patient received IV contrast on 08/23/2022. Creatinine was 1.74 on admission and is 2.5 today. Urine output 15-20 mL an hour. No hydronephrosis noted on CAT scan. 2. Chronic kidney disease stage IIIa with baseline creatinine in the range of 1.2-1.5 secondary to nephrosclerosis and long-term calcineurin inhibitor use. 3. 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 4. Metabolic acidosis secondary to acute kidney injury, lactic acidosis and IV fluids. Patient has received 3 L of normal saline in the ICU. 5. Acute CVA with history of prior CVA as well. Neurology following. 6. Septic shock. He was just above UTI. On antibiotics. On Levophed. Plan: Stop normal saline. Start bicarb drip at 100 mL an hour. Follow-up cultures. Hold CellCept due to septic shock. NG tube replaced so patient can get his medications. Check Prograf level. Avoid nephrotoxins. Continue to monitor renal function and urine output. Thank you for this consultation. I will continue to follow patient with you during his hospital stay.
--- NOTE | 2022-08-24 12:23 | P.CNPUL ---
History of Present Illness Consult date: 08/24/22 Requesting physician: Luz Maria Matias Chief complaint: Weakness. History of present illness: Pulmonary consult dated 08/24/2022. 76-year-old black male, with a previous history of liver transplant, at [facility], and CVA, with right-sided weakness, who apparently presented to the emergency department on August 22, complaining of profound weakness, nausea, and vomiting. The patient was admitted to the floor, and I was asked to transfer the patient to the intensive care unit, as the patient was thought to have sepsis, with hypotension. 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 He apparently was at [place], shopping, and developed sudden onset of abdominal pain nausea and vomiting. He also complaining of weakness in his lower extremities. Seen in the emergency room, and admitted to the hospital. Currently, the patient's getting saline at 130 mL an hour, and norepinephrine at 0.04 mcg/kg/m. A blood gas done on 6 L shows a pO2 of 86, pCO2 27, and a pH is 7.36. This blood gases consistent with mild metabolic acidosis. His initial blood gas was consistent with non-anion gap metabolic acidosis. His lactate initially was 4 .8. He's currently on Zosyn. A computed tomography scan of the brain showed an acute infarct of the left parietal lobe. He is being seen by neurology. White count 4.1, hemoglobin 14, hematocrit 46.5, and platelet count 95,000. Sodium 138, potassium 4.3, chlorides 113, CO2 15, anion gap 10, BUN 26, creatinine 2.53. Lactic acid is 2.2. AST is 267 and ALT is 68. Troponin was 0.491. Pro-calcitonin level is 30.4. UA is consistent with a possible urinary tract infection. Testing for coronavirus was negative. Chest x-ray, after central line placement, by me, showed no complication. Review of Systems REVIEW OF SYSTEMS: CONSTITUTIONAL: Weakness. NEUROLOGIC: [ Negative.] HEENT: [ Negative.] CARDIAC: [Negative.] PULMONARY: [Negative.] GI: Nausea, vomiting, abdominal pain. : [Negative.] RHEUMATOLOGIC: [ Negative.] IMMUNOLOGIC: [ Negative.] ENDOCRINE: [Negative. 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 Past Anesthesia/Blood Transfusion Reactions: No Reported Reaction Additional Past Anesthesia/Blood Transfusion Reaction / Comment(s): Pt received blood in past without reaction. hx jaw fx- had surgery and has a plate. a little confusion when first waking up Past Psychological History: No Psychological Hx Reported Smoking Status: Never smoker Past Alcohol Use History: None Reported Past Drug Use History: None Reported - Past Family History Father Family Medical History: Cancer Additional Family Medical History / Comment(s): Father was healthy. He around the age of 83 yrs. Mother Family Medical History: Myocardial Infarction ([place]) Additional Family Medical History / Comment(s): Mother of a [place] at the age of 83 yrs. Medications and Allergies Home Medications Medication Instructions Recorded Confirmed Type Metoprolol Succinate [Toprol XL] 50 mg PO HS 07/20/15 08/23/22 History Tacrolimus [Prograf] 0.5 mg PO BID 07/20/15 08/23/22 History Tamsulosin [Flomax] 0.4 mg PO HS 07/20/15 08/23/22 History dexAMETHasone ORAL [Hexadrol] 0.5 mg PO HS 07/20/15 08/23/22 History mycophenolate mofetiL [Cellcept] 1,000 mg PO BID 07/20/15 08/23/22 History Pravastatin Sodium [Pravachol] 10 mg PO HS 03/03/17 08/23/22 History Aspirin EC [Ecotrin Low Dose] 81 mg PO HS 03/08/21 08/23/22 History Latanoprost [Xalatan 0.005%] 1 drop BOTH EYES HS 11/28/21 08/23/22 History Cholecalciferol [Vitamin D3 (125 125 mcg PO HS 08/23/22 08/23/22 History Mcg = 5000 Iu)] Multivitamins, Thera [Multivitamin 1 tab PO HS 08/23/22 08/23/22 History (formulary)] Omeprazole Magnesium [PriLOSEC OTC] 20 mg PO HS 08/23/22 08/23/22 History Allergies Allergy/AdvReac Type Severity Reaction Status Date / Time No Known Allergies Allergy Verified 08/23/22 07:35 Physical Exam Osteopathic Statement: *. No significant issues noted on an osteopathic structural exam other than those noted in the History and Physical/Consult. Vitals: Vital Signs Temp Pulse Pulse Resp BP BP Pulse Ox 08/24/22 11:10 98.1 F 08/24/22 11:00 113 H 22 124/60 95 08/24/22 10:45 128 H 22 101/53 94 L 08/24/22 10:30 112 H 20 95/50 94 L 08/24/22 10:15 112 H 24 107/51 95 08/24/22 10:00 105 H 20 85/41 93 L 08/24/22 09:45 110 H 28 H 81/55 95 08/24/22 09:30 122 H 22 93/37 96 08/24/22 09:15 115 H 13 100/46 97 08/24/22 09:00 113 H 22 86/44 94 L 08/24/22 08:45 121 H 13 91/52 95 08/24/22 08:30 112 H 28 H 109/47 95 08/24/22 08:04 100 08/24/22 08:00 101.8 F H 113 H 28 H 107/59 97 08/24/22 07:30 105 H 10 L 106/58 99 08/24/22 07:00 109 H 19 100/65 100 08/24/22 06:30 109 H 23 127/57 100 08/24/22 06:00 114 H 15 115/59 99 08/24/22 05:30 113 H 16 115/50 99 08/24/22 05:00 111 H 30 H 89/52 100 08/24/22 04:45 110 H 18 92/52 100 08/24/22 04:30 110 H 11 L 95/45 100 08/24/22 04:15 116 H 15 95/42 99 08/24/22 04:00 100.5 F H 113 H 23 101/49 100 08/24/22 03:45 109 H 19 107/48 99 08/24/22 03:30 109 H 18 102/55 98 08/24/22 03:15 114 H 16 102/55 98 08/24/22 03:00 117 H 19 92/50 99 08/24/22 02:45 117 H 22 98/48 98 08/24/22 02:30 103.5 F H 130 H 27 H 85/47 96 08/23/22 21:10 100.3 F H 114 H 19 143/67 100 08/23/22 20:14 103.2 F H 94 19 143/63 94 L 08/23/22 20:10 103.2 F H 125 H 18 135/57 94 L 08/23/22 19:20 103.1 F H 08/23/22 19:10 100.8 F H 08/23/22 18:07 85 12 117/50 99 08/23/22 14:46 84 22 113/60 97 Intake and Output 08/23/22 08/24/22 08/24/22 22:59 06:59 14:59 Intake Total 520 618.622 Output Total 105 125 Balance 415 493.622 Intake: IV 520 520 Sodium Chloride 0.9% 1, 520 520 000 ml @ 130 mls/hr IV . Q7H42M TAMARA Rx#:[id number] Intake, IV Titration 98.622 Amount Norepinephrine 4 mg In 98.622 Sodium Chloride 0.9% 250 ml @ 0.03 MCG/KG/MIN 10. 369 mls/hr IV .Q24H TAMARA Rx#:[id number] Output: Urine 105 125 Other: Voiding Method Indwelling Catheter Indwelling Catheter # Voids 1 # Bowel Movements 1 Lethargic and somnolent, currently on 6 L. HEENT examination is grossly unremarkable. Neck supple. Full range of motion. No adenopathy thyromegaly or neck vein distention. Cardiovascular examination reveals regular rhythm rate. S1-S2 normal. No S3 or S4. No discernible murmur noted. Heart rate is 114 bpm. Lungs reveal coarse bilateral breath sounds. No wheezes. No crackles. Saturation is 97%. Abdomen soft, with bowel sounds. No masses or tenderness. Well-healed scar from previous liver transplant noted. Extremities are intact. No cyanosis or clubbing. Trace edema. Chronic venous stasis changes noted. Skin is without rash or lesion. Neurologic examination is being evaluated by neurology. Results - Laboratory Findings CBC and BMP: 08/24/22 06:39 08/24/22 06:39 ABG ABG pH 7.37 (7.35-7.45) 08/24/22 09:43 ABG pCO2 27 mmHg (35-45) L 08/24/22 09:43 ABG pO2 86 mmHg (83-108) 08/24/22 09:43 ABG O2 Saturation 97.6 % (94-97) H 08/24/22 09:43 PT/INR, D-dimer PT 12.1 sec (9.0-12.0) H 08/23/22 02:45 INR 1.1 (<1.2) 08/23/22 02:45 Abnormal lab findings: Abnormal Labs 08/23/22 08/23/22 08/23/22 02:45 02:45 02:45 WBC RBC 4.13 L Hgb 11.2 L Hct 35.2 L MCHC Plt Count Neutrophils # 8.3 H Lymphocytes # 0.7 L Lymphocytes # (Manual) Metamyelocytes # (Man) PT 12.1 H ABG pCO2 ABG HCO3 ABG Total CO2 ABG O2 Saturation Potassium 3.1 L Chloride 110 H Carbon Dioxide BUN 22 H Creatinine 1.74 H Glucose POC Glucose (mg/dL) Plasma Lactic Acid Angelo Calcium 7.3 L Magnesium 1.2 L AST ALT Troponin I Total Protein 5.0 L Albumin 3.0 L HDL Cholesterol Procalcitonin Urine Protein Urine Blood Ur Leukocyte Esterase Urine WBC Urine WBC Clumps Urine Bacteria Urine Mucus 08/23/22 08/23/22 08/23/22 02:45 09:15 19:48 WBC 0.6 L* RBC Hgb 12.2 L Hct 38.4 L MCHC Plt Count 113 L Neutrophils # Lymphocytes # Lymphocytes # (Manual) Metamyelocytes # (Man) PT ABG pCO2 ABG HCO3 ABG Total CO2 ABG O2 Saturation Potassium Chloride Carbon Dioxide BUN Creatinine Glucose POC Glucose (mg/dL) Plasma Lactic Acid Angelo 2.1 H* Calcium Magnesium AST ALT Troponin I Total Protein Albumin HDL Cholesterol Procalcitonin Urine Protein 1+ H Urine Blood Trace H Ur Leukocyte Esterase Large H Urine WBC 154 H Urine WBC Clumps Rare H Urine Bacteria Rare H Urine Mucus Rare H 08/23/22 08/23/22 08/23/22 19:48 19:48 19:48 WBC RBC Hgb Hct MCHC Plt Count Neutrophils # Lymphocytes # Lymphocytes # (Manual) Metamyelocytes # (Man) PT ABG pCO2 ABG HCO3 ABG Total CO2 ABG O2 Saturation Potassium Chloride 108 H Carbon Dioxide 19 L BUN 24 H Creatinine 1.95 H Glucose POC Glucose (mg/dL) Plasma Lactic Acid Angelo 2.2 H* Calcium 7.8 L Magnesium AST ALT Troponin I 0.041 H* Total Protein Albumin HDL Cholesterol Procalcitonin Urine Protein Urine Blood Ur Leukocyte Esterase Urine WBC Urine WBC Clumps Urine Bacteria Urine Mucus 08/23/22 08/23/22 08/24/22 19:48 23:25 02:00 WBC RBC Hgb Hct MCHC Plt Count Neutrophils # Lymphocytes # Lymphocytes # (Manual) Metamyelocytes # (Man) PT ABG pCO2 ABG HCO3 ABG Total CO2 ABG O2 Saturation Potassium Chloride Carbon Dioxide BUN Creatinine Glucose POC Glucose (mg/dL) 119 H Plasma Lactic Acid Angelo Calcium Magnesium AST ALT Troponin I 0.346 H* Total Protein Albumin HDL Cholesterol Procalcitonin 30.40 H Urine Protein Urine Blood Ur Leukocyte Esterase Urine WBC Urine WBC Clumps Urine Bacteria Urine Mucus 08/24/22 08/24/22 08/24/22 02:01 02:01 02:28 WBC RBC Hgb Hct MCHC Plt Count Neutrophils # Lymphocytes # Lymphocytes # (Manual) Metamyelocytes # (Man) PT ABG pCO2 27 L ABG HCO3 17 L ABG Total CO2 17 L ABG O2 Saturation 98.1 H Potassium Chloride Carbon Dioxide BUN Creatinine Glucose POC Glucose (mg/dL) Plasma Lactic Acid Angelo 2.6 H* Calcium Magnesium AST ALT Troponin I 0.491 H* Total Protein Albumin HDL Cholesterol Procalcitonin Urine Protein Urine Blood Ur Leukocyte Esterase Urine WBC Urine WBC Clumps Urine Bacteria Urine Mucus 08/24/22 08/24/22 08/24/22 06:26 06:39 06:39 WBC RBC Hgb Hct MCHC 30.0 L Plt Count 95 L Neutrophils # Lymphocytes # Lymphocytes # (Manual) 0.08 L Metamyelocytes # (Man) 0.04 H PT ABG pCO2 ABG HCO3 ABG Total CO2 ABG O2 Saturation Potassium Chloride 113 H Carbon Dioxide 15 L BUN 26 H Creatinine 2.53 H Glucose 63 L POC Glucose (mg/dL) Plasma Lactic Acid Angelo Calcium 7.5 L Magnesium AST ALT Troponin I Total Protein Albumin HDL Cholesterol 27.00 L Procalcitonin Urine Protein Urine Blood Ur Leukocyte Esterase Urine WBC Urine WBC Clumps Urine Bacteria Urine Mucus 08/24/22 08/24/22 08/24/22 06:39 07:15 09:43 WBC RBC Hgb Hct MCHC Plt Count Neutrophils # Lymphocytes # Lymphocytes # (Manual) Metamyelocytes # (Man) PT ABG pCO2 27 L ABG HCO3 15 L ABG Total CO2 16 L ABG O2 Saturation 97.6 H Potassium Chloride Carbon Dioxide BUN Creatinine Glucose POC Glucose (mg/dL) 66 L Plasma Lactic Acid Angelo 4.8 H* Calcium Magnesium AST ALT Troponin I Total Protein Albumin HDL Cholesterol Procalcitonin Urine Protein Urine Blood Ur Leukocyte Esterase Urine WBC Urine WBC Clumps Urine Bacteria Urine Mucus 08/24/22 08/24/22 08/24/22 11:04 11:04 11:40 WBC RBC Hgb Hct MCHC Plt Count Neutrophils # Lymphocytes # Lymphocytes # (Manual) Metamyelocytes # (Man) PT ABG pCO2 ABG HCO3 ABG Total CO2 ABG O2 Saturation Potassium Chloride Carbon Dioxide BUN Creatinine Glucose POC Glucose (mg/dL) 54 L Plasma Lactic Acid Angelo 2.2 H* Calcium Magnesium AST 267 H ALT 68 H Troponin I Total Protein Albumin HDL Cholesterol Procalcitonin Urine Protein Urine Blood Ur Leukocyte Esterase Urine WBC Urine WBC Clumps Urine Bacteria Urine Mucus - Diagnostic Findings Chest x-ray: image reviewed Assessment and Plan Assessment: Hypotension, which may relate to underlying sepsis, source unclear. Acute ischemic infarct, left parietal lobe. History of liver transplantation, at the [facility]. Acute kidney injury. Lactic acidosis. History of hypertension. History of gastroesophageal reflux disease. History of BPH. History of hyperlipidemia. Plan: Plan dated 08/24/2022. The patient is currently being evaluated by neurology. Computed tomography scan of the brain suggests an acute infarct, involving the left parietal lobe. Apparently the patient and/or the patient's family would like the patient transferred to the [facility]. I'm not sure that we will be able to accomplish that. He is currently on 6 L of oxygen. He is on norepinephrine at 0.04 mcg/kg/m. Blood gases show a mild metabolic acidosis. He is currently on Zosyn. Cultures have been done. Labs, x-rays, and medications are reviewed. I placed a left subclavian triple-lumen catheter in the patient as he had limited IV access. Time with Patient: Greater than 30
[2022-08-24] MEDS: DEXTROSE 5% IN WATER 1,000 ML with SODIUM BICARB (1 MEQ/ML) 150 ML IV SCH (13:34)
--- NOTE | 2022-08-24 14:20 | P.PN ---
Subjective Progress Note Date: 08/24/22 Patient is a pleasant 76-year-old male came in with complaints of increased weakness itchy generalized weakness and patient does have chronic weakness on the right side of the body patient has he still strength of 3/5 in by both the right upper and lower extremity. This symptoms has been going on for about 2 days. It was noted in the ER physician's note that patient has abdominal pain although patient denied any such abdominal pain to me. Patient apparently was complaining of generalized weakness as well as nausea vomiting which he denied patient doesn't have any fever chills. Patient has a history of a liver transplant on the tacrolimus Mussen mycophenolate with low magnesium which is being replaced at this time. CT angiogram of the head and neck was essentially nondiagnostic, CT of the head noncontrast showed old lacunar stroke, chest x-ray showed pulmonary fibrotic changes, CT of the chest chest showed atelectasis, findings consistent with portal venous hypertension and varices with sigmoid diverticulosis without any diverticulitis. Patient was hypotensive on admission because of chronic improvement in blood pressure with fluid administration patient was admitted. The patient is presently doing better but patient does have significant generalized weakness serum creatinine is 1.74 patient does have acute renal failure with creatinine of 1.74 baseline is around 1.2 patient did have lactic acidosis with plasma lactate of 1.3 08/24/2022 Patient was admitted to medical floor around 1930 yesterday and found to be febrile with hypotension, and also was felt to be in an obtunded state and an Ateam was completed. Patient was fluid resuscitated and started on empiric antibiotic coverage, cultures were taken. There was concern for decline in status prior to arriving to the floor. Patient was then upgraded to step down unit. When family arrived they brought to attention that right upper extremity deficits were acute and patient just 2 days prior was able to drive tractor and cut wood. Patients son at bedside does relay that a few days prior patient had been complaining of some weakness and pain to his right lower extremity that was to be evaluated by orthopedics outpatient. and patient dose have flaccid right upper extremity now. Code stroke activated and repeat brain CT without contrast obtained which found evidence for acute infarct left parietal lobe. Dr Serrato neurointerventionalist not recommending TPA at that time as risk outweight benefits and difficult to pin point last known well, patient possibly outside of the TPA window. Patient started on aspirin, lipitor and neurology was consulted. Due to multiple CT scans completed and increasing creatinine up to 1.95, CT angiography was not completed. Carotid duplex doppler was performed showing 50 to 70% stenosis in bilateral internal carotid arteries. Echocardiogram ordered. Patient continued to decline in status and was placed on oxygen support at 6L possible aspiration. Also blood pressure remained in 80s systolic despite fluid bolus. For this reason ICU was requested and patient was started on vasopressor support which is continued today. White count did drop to 0.6 during the evening labs and also platelet count to 113. Today his white count is 4.1 and platelets are 95. For this reason plavix was not started, which platelets will be monitored for now. Procalcitonin level found to be positive at 30.40. Follow up chest xray was taken today showing mild bilateral lower lobe pulmonary infilt rates mostly unchanged with no definite heart failure. He continues on IV zosyn, and infectious disease consultation in place. Family discussed being transferred to [facility] where his liver transplant team is. After evaluation by negotiator it was felt that patient be considered for transfer to [facility] for Septic shock in a liver transplant patient. We do not currently have GI services inpatient. Liver enzymes initially negative which have trended upwards, could possibly be from sepsis. There is also troponin elevation, no complaints of chest pain at this time. EKG has been reviewed. Patient is being monitored closely in intensive care unit at this time. Family at bedside updated and all questions answered. Review of Systems Unable to complete full review of systems at this time due to clinical status PHYSICAL EXAMINATION: GENERAL: This is a 76 year old male who appears stated age. Lethargic being monitored in ICU on 6L nasal cannula. He is alert x 2 to 3. HEENT: Pupils are round and equally reacting to light. EOMI. No scleral icterus. No conjunctival pallor. Normocephalic, atraumatic. No pharyngeal erythema. No thyromegaly. CARDIOVASCULAR: S1 and S2 present. No murmurs, rubs, or gallops. Tachycardic. PULMONARY: Coarse ronchorous lungs sounds, no wheezing noted. ABDOMEN: Soft, nontender, nondistended, normoactive bowel sounds. No palpable organomegaly. MUSCULOSKELETAL: No joint swelling or deformity. EXTREMITIES: No cyanosis, clubbing, or pedal edema. NEUROLOGICAL: Generalized weakness, with right sided hemiplegia, Mild right facial droop. SKIN: No rashes. Assessment and Plan Assessment Acute ischemic infarct, left parietal lobe Acute hypoxic respiratory failure requiring 6 L of oxygen possibly an aspiration pnuemonia with bilateral infiltrate on xray. Fever with hypotension possible sepsis/septic shock, source of infection under investigation possible UTI Acute kidney injury secondary to acute tubular necrosis secondary to septic shock. Creatinine today 2.5 Altered mental status multifactorial, patient has component of sepsis, metabolic encephalopathy secondary to SARAI. 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 History of hypertension currently hypotensive on pressor support History of gastroesophageal reflux disease History of BPH History of hyperlipidemia History of old stroke. GI Prophylaxis DVT Prophylaxis subcutaneous heparin Full Code Plan Nephrology recommending to hold cellcept secondary to septic shock at this time He has been started on bicarb gtt Patient is currently being monitored in intensive care unit requiring vasopressor support He has been started on aspirin 81 mg, lipitor 40 mg Plavix not started at this time due to low platelet count which will be monitored Blood culture and urine culture are pending at this time Empiric antibiotic coverage with IV zosyn. Multiple consultations including infectious disease, pulmonary negotiator, nephrology, vascular. 2 D Echocardiogram pending at this time MRI/MRA have been ordered Prognosis remains guarded. Discussion with Dr. Gamez at [facility] via transfer team - request for transfer was denied as there are currently no available intensive care unit beds and hospital is at capacity. Dr. Gamez felt no acute issues with liver transplant and current level of care appropriate no indications for transfer. Discussed elevation in liver enzymes currently with initial being n egative. [place] possibly from sepsis. Noted that there is no GI services available currently at this hospital and this was communicated to transfer team. Again transfer request was denied by [facility] physician. Mline number to transplant team was given for reference. . Patients transplant team will be available through this number for any questions and further discussion regarding patients plan of care. Per Dr. Gamez if concern for issues with liver/acute change then contact transfer team with update. The impression and plan of care has been dictated by Aisha Taylor, Nurse Practitioner as directed. Dr. Harsha MD I have performed a history and physical examination and medical decision making of this patient, discussed the same with the dictator, and agree with the dictators assessment and plan as written, documented as a scribe. Based on total visit time, I have performed more than 50% of this visit. Objective - Vital Signs Vital signs: Vital Signs Temp 98.2 F 08/24/22 12:00 Pulse 114 H 08/24/22 12:00 Resp 28 H 08/24/22 12:00 BP 99/47 08/24/22 12:00 Pulse Ox 97 08/24/22 12:00 FiO2 Intake & Output 08/23/22 08/24/22 08/24/22 18:59 06:59 18:59 Intake Total 520 748.622 Output Total 105 165 Balance 415 583.622 Weight 90.718 kg Intake: IV 520 650 Sodium Chloride 0.9% 1, 520 650 000 ml @ 130 mls/hr IV . [id number] TAMARA Rx#:[id number] Intake, IV Titration 98.622 Amount Norepinephrine 4 mg In 98.622 Sodium Chloride 0.9% 250 ml @ 0.03 MCG/KG/MIN 10. 369 mls/hr IV .Q24H TAMARA Rx#:[id number] Output: Urine 105 165 Other: Voiding Method Indwelling Catheter Indwelling Catheter # Voids 1 # Bowel Movements 1 - Labs CBC & Chem 7: 08/24/22 06:39 08/24/22 06:39 Labs: Abnormal Lab Results - Last 24 Hours (Table) 08/23/22 08/23/22 08/23/22 Range/Units 19:48 19:48 19:48 WBC 0.6 L* (3.8-10.6) k/uL Hgb 12.2 L (13.0-17.5) gm/dL Hct 38.4 L (39.0-53.0) % MCHC (31.0-37.0) g/dL Plt Count 113 L (150-450) k/uL Lymphocytes # (Manual) (1.0-4.8) k/uL Metamyelocytes # (Man) (0) k/uL ABG pCO2 (35-45) mmHg ABG HCO3 (21-25) mmol/L ABG Total CO2 (19-24) mmol/L ABG O2 Saturation (94-97) % Chloride 108 H (98-107) mmol/L Carbon Dioxide 19 L (22-30) mmol/L BUN 24 H (9-20) mg/dL Creatinine 1.95 H (0.66-1.25) mg/dL Glucose (74-99) mg/dL POC Glucose (mg/dL) (70-110) mg/dL Plasma Lactic Acid Angelo 2.2 H* (0.7-2.0) mmol/L Calcium 7.8 L (8.4-10.2) mg/dL AST (17-59) U/L ALT (4-49) U/L Troponin I (0.000-0.034) ng/mL HDL Cholesterol (40.00-60.00) mg/dL Procalcitonin (0.02-0.09) ng/mL 08/23/22 08/23/22 08/23/22 Range/Units 19:48 19:48 23:25 WBC (3.8-10.6) k/uL Hgb (13.0-17.5) gm/dL Hct (39.0-53.0) % MCHC (31.0-37.0) g/dL Plt Count (150-450) k/uL Lymphocytes # (Manual) (1.0-4.8) k/uL Metamyelocytes # (Man) (0) k/uL ABG pCO2 (35-45) mmHg ABG HCO3 (21-25) mmol/L ABG Total CO2 (19-24) mmol/L ABG O2 Saturation (94-97) % Chloride (98-107) mmol/L Carbon Dioxide (22-30) mmol/L BUN (9-20) mg/dL Creatinine (0.66-1.25) mg/dL Glucose (74-99) mg/dL POC Glucose (mg/dL) (70-110) mg/dL Plasma Lactic Acid Angelo (0.7-2.0) mmol/L Calcium (8.4-10.2) mg/dL AST (17-59) U/L ALT (4-49) U/L Troponin I 0.041 H* 0.346 H* (0.000-0.034) ng/mL HDL Cholesterol (40.00-60.00) mg/dL Procalcitonin 30.40 H (0.02-0.09) ng/mL 08/24/22 08/24/22 08/24/22 Range/Units 02:00 02:01 02:01 WBC (3.8-10.6) k/uL Hgb (13.0-17.5) gm/dL Hct (39.0-53.0) % MCHC (31.0-37.0) g/dL Plt Count (150-450) k/uL Lymphocytes # (Manual) (1.0-4.8) k/uL Metamyelocytes # (Man) (0) k/uL ABG pCO2 (35-45) mmHg ABG HCO3 (21-25) mmol/L ABG Total CO2 (19-24) mmol/L ABG O2 Saturation (94-97) % Chloride (98-107) mmol/L Carbon Dioxide (22-30) mmol/L BUN (9-20) mg/dL Creatinine (0.66-1.25) mg/dL Glucose (74-99) mg/dL POC Glucose (mg/dL) 119 H (70-110) mg/dL Plasma Lactic Acid Angelo 2.6 H* (0.7-2.0) mmol/L Calcium (8.4-10.2) mg/dL AST (17-59) U/L ALT (4-49) U/L Troponin I 0.491 H* (0.000-0.034) ng/mL HDL Cholesterol (40.00-60.00) mg/dL Procalcitonin (0.02-0.09) ng/mL 08/24/22 08/24/22 08/24/22 Range/Units 02:28 06:26 06:39 WBC (3.8-10.6) k/uL Hgb (13.0-17.5) gm/dL Hct (39.0-53.0) % MCHC 30.0 L (31.0-37.0) g/dL Plt Count 95 L (150-450) k/uL Lymphocytes # (Manual) 0.08 L (1.0-4.8) k/uL Metamyelocytes # (Man) 0.04 H (0) k/uL ABG pCO2 27 L (35-45) mmHg ABG HCO3 17 L (21-25) mmol/L ABG Total CO2 17 L (19-24) mmol/L ABG O2 Saturation 98.1 H (94-97) % Chloride (98-107) mmol/L Carbon Dioxide (22-30) mmol/L BUN (9-20) mg/dL Creatinine (0.66-1.25) mg/dL Glucose (74-99) mg/dL POC Glucose (mg/dL) (70-110) mg/dL Plasma Lactic Acid Angelo (0.7-2.0) mmol/L Calcium (8.4-10.2) mg/dL AST (17-59) U/L ALT (4-49) U/L Troponin I (0.000-0.034) ng/mL HDL Cholesterol 27.00 L (40.00-60.00) mg/dL Procalcitonin (0.02-0.09) ng/mL 08/24/22 08/24/22 08/24/22 Range/Units 06:39 06:39 07:15 WBC (3.8-10.6) k/uL Hgb (13.0-17.5) gm/dL Hct (39.0-53.0) % MCHC (31.0-37.0) g/dL Plt Count (150-450) k/uL Lymphocytes # (Manual) (1.0-4.8) k/uL Metamyelocytes # (Man) (0) k/uL ABG pCO2 (35-45) mmHg ABG HCO3 (21-25) mmol/L ABG Total CO2 (19-24) mmol/L ABG O2 Saturation (94-97) % Chloride 113 H (98-107) mmol/L Carbon Dioxide 15 L (22-30) mmol/L BUN 26 H (9-20) mg/dL Creatinine 2.53 H (0.66-1.25) mg/dL Glucose 63 L (74-99) mg/dL POC Glucose (mg/dL) 66 L (70-110) mg/dL Plasma Lactic Acid Angelo 4.8 H* (0.7-2.0) mmol/L Calcium 7.5 L (8.4-10.2) mg/dL AST (17-59) U/L ALT (4-49) U/L Troponin I (0.000-0.034) ng/mL HDL Cholesterol (40.00-60.00) mg/dL Procalcitonin (0.02-0.09) ng/mL 08/24/22 08/24/22 08/24/22 Range/Units 09:43 11:04 11:04 WBC (3.8-10.6) k/uL Hgb (13.0-17.5) gm/dL Hct (39.0-53.0) % MCHC (31.0-37.0) g/dL Plt Count (150-450) k/uL Lymphocytes # (Manual) (1.0-4.8) k/uL Metamyelocytes # (Man) (0) k/uL ABG pCO2 27 L (35-45) mmHg ABG HCO3 15 L (21-25) mmol/L ABG Total CO2 16 L (19-24) mmol/L ABG O2 Saturation 97.6 H (94-97) % Chloride (98-107) mmol/L Carbon Dioxide (22-30) mmol/L BUN (9-20) mg/dL Creatinine (0.66-1.25) mg/dL Glucose (74-99) mg/dL POC Glucose (mg/dL) (70-110) mg/dL Plasma Lactic Acid Angelo 2.2 H* (0.7-2.0) mmol/L Calcium (8.4-10.2) mg/dL AST 267 H (17-59) U/L ALT 68 H (4-49) U/L Troponin I (0.000-0.034) ng/mL HDL Cholesterol (40.00-60.00) mg/dL Procalcitonin (0.02-0.09) ng/mL 08/24/22 Range/Units 11:40 WBC (3.8-10.6) k/uL Hgb (13.0-17.5) gm/dL Hct (39.0-53.0) % MCHC (31.0-37.0) g/dL Plt Count (150-450) k/uL Lymphocytes # (Manual) (1.0-4.8) k/uL Metamyelocytes # (Man) (0) k/uL ABG pCO2 (35-45) mmHg ABG HCO3 (21-25) mmol/L ABG Total CO2 (19-24) mmol/L ABG O2 Saturation (94-97) % Chloride (98-107) mmol/L Carbon Dioxide (22-30) mmol/L BUN (9-20) mg/dL Creatinine (0.66-1.25) mg/dL Glucose (74-99) mg/dL POC Glucose (mg/dL) 54 L (70-110) mg/dL Plasma Lactic Acid Angelo (0.7-2.0) mmol/L Calcium (8.4-10.2) mg/dL AST (17-59) U/L ALT (4-49) U/L Troponin I (0.000-0.034) ng/mL HDL Cholesterol (40.00-60.00) mg/dL Procalcitonin (0.02-0.09) ng/mL Microbiology - Last 24 Hours (Table) 08/23/22 09:15 Urine Culture - Preliminary Urine,Voided Assessment and Plan Time with Patient: Greater than 30
[2022-08-24 17:34] LABS: Glucose,Whole Blood 98 mg/dL (70-110)
--- NOTE | 2022-08-24 18:14 | P.GSCN ---
History of Present Illness Consult date: 08/24/22 History of present illness: The patient is a 76-year-old male with history of previous stroke, liver failure status post transplant, hypertension who reported to the ER for feeling weak and not feeling himself, as well as some nausea vomiting and diarrhea. Prior to this he was at his essential normal baseline working outside without any significant issue. Upon workup and evaluation he initially had a CT of the neck and head which showed old lacunar stroke. He also a CT of the chest which or atelectasis and evidence of portal venous hypertension. He also had a computed tomography scan of the abdomen which showed sigmoid diverticulosis without any evidence of diverticulitis as well as portal hypertension sequelae. He was hypotensive on admission and had significant improvement following this. He had generalized weakness on admission but then subsequently had significant worsening of this through the night were another code stroke was activated due to his worsening right lower extremity and upper extremity weakness and flaccid findings. On repeat head CT there is reported 4 cm poorly marginated area of hypodensity consistent with acute infarct which is changed from the previous exam without evidence of hemorrhage. There was no TPA given as the patient did not meet the protocol for this. Upon further workup and images with the ultras ound, there was mild elevation in velocities of the internal carotid arteries therefore consultation was placed. 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 Past Anesthesia/Blood Transfusion Reactions: No Reported Reaction Additional Past Anesthesia/Blood Transfusion Reaction / Comm: Pt received blood in past without reaction. hx jaw fx- had surgery and has a plate. a little confusion when first waking up Past Psychological History: No Psychological Hx Reported Smoking Status: Never smoker Past Alcohol Use History: None Reported Past Drug Use History: None Reported - Past Family History Father Family Medical History: Cancer Additional Family Medical History / Comment(s): Father was healthy. He around the age of 83 yrs. Mother Family Medical History: Myocardial Infarction ([place]) Additional Family Medical History / Comment(s): Mother of a [place] at the age of 83 yrs. Medications and Allergies Home Medications Medication Instructions Recorded Confirmed Type Metoprolol Succinate [Toprol XL] 50 mg PO HS 07/20/15 08/23/22 History Tacrolimus [Prograf] 0.5 mg PO BID 07/20/15 08/23/22 History Tamsulosin [Flomax] 0.4 mg PO HS 07/20/15 08/23/22 History dexAMETHasone ORAL [Hexadrol] 0.5 mg PO HS 07/20/15 08/23/22 History mycophenolate mofetiL [Cellcept] 1,000 mg PO BID 07/20/15 08/23/22 History Pravastatin Sodium [Pravachol] 10 mg PO HS 03/03/17 08/23/22 History Aspirin EC [Ecotrin Low Dose] 81 mg PO HS 03/08/21 08/23/22 History Latanoprost [Xalatan 0.005%] 1 drop BOTH EYES HS 11/28/21 08/23/22 History Cholecalciferol [Vitamin D3 (125 125 mcg PO HS 08/23/22 08/23/22 History Mcg = 5000 Iu)] Multivitamins, Thera [Multivitamin 1 tab PO HS 08/23/22 08/23/22 History (formulary)] Omeprazole Magnesium [PriLOSEC OTC] 20 mg PO HS 08/23/22 08/23/22 History Allergies Allergy/AdvReac Type Severity Reaction Status Date / Time No Known Allergies Allergy Verified 08/23/22 07:35 Surgical - Exam Vital Signs Temp Pulse Resp BP Pulse Ox 98.3 F 96 20 91/44 99 08/23/22 01:03 08/23/22 01:03 08/23/22 01:03 08/23/22 01:03 08/23/22 01:03 GENERAL: The patient is lying in bed and is not in acute distress. HEART The heart rate is regular rate rhythm. No murmurs to auscultation. LUNG: Coarse breath sounds ABDOMEN/GI: No tenderness to palpation throughout. VASCULAR palpable radial, femoral and pedal pulses bilaterally NEURO: Flaccid right upper and lower extremity. Able to actively move the left upper and lower extremity. Otherwise unable to assess Results CT angiogram of the neck is personally reviewed. There is no contrast therefore unable to accurately reduce stenosis, nondiagnostic. The carotid Doppler is personally reviewed. The velocity on the right is 152 with a ratio of 1.2. The velocity on the left is 133 with a ratio of 1.4. Based on Bearden criteria this would be 50-69% however based on the new SRU criteria this would be less than 50% due to the velocities being less than 180. Regardless, the left side based on Bearden criteria is barely over the threshold following to that category so much likely closer to 50% - Labs 08/24/22 06:39 08/24/22 06:39 Abnormal Lab Results - Last 24 Hours (Table) 08/23/22 08/23/22 08/23/22 Range/Units 19:48 19:48 19:48 WBC 0.6 L* (3.8-10.6) k/uL Hgb 12.2 L (13.0-17.5) gm/dL Hct 38.4 L (39.0-53.0) % MCHC (31.0-37.0) g/dL Plt Count 113 L (150-450) k/uL Lymphocytes # (Manual) (1.0-4.8) k/uL Metamyelocytes # (Man) (0) k/uL ABG pCO2 (35-45) mmHg ABG HCO3 (21-25) mmol/L ABG Total CO2 (19-24) mmol/L ABG O2 Saturation (94-97) % Chloride 108 H (98-107) mmol/L Carbon Dioxide 19 L (22-30) mmol/L BUN 24 H (9-20) mg/dL Creatinine 1.95 H (0.66-1.25) mg/dL Glucose (74-99) mg/dL POC Glucose (mg/dL) (70-110) mg/dL Plasma Lactic Acid Angelo 2.2 H* (0.7-2.0) mmol/L Calcium 7.8 L (8.4-10.2) mg/dL AST (17-59) U/L ALT (4-49) U/L Troponin I (0.000-0.034) ng/mL HDL Cholesterol (40.00-60.00) mg/dL Procalcitonin (0.02-0.09) ng/mL 08/23/22 08/23/22 08/23/22 Range/Units 19:48 19:48 23:25 WBC (3.8-10.6) k/uL Hgb (13.0-17.5) gm/dL Hct (39.0-53.0) % MCHC (31.0-37.0) g/dL Plt Count (150-450) k/uL Lymphocytes # (Manual) (1.0-4.8) k/uL Metamyelocytes # (Man) (0) k/uL ABG pCO2 (35-45) mmHg ABG HCO3 (21-25) mmol/L ABG Total CO2 (19-24) mmol/L ABG O2 Saturation (94-97) % Chloride (98-107) mmol/L Carbon Dioxide (22-30) mmol/L BUN (9-20) mg/dL Creatinine (0.66-1.25) mg/dL Glucose (74-99) mg/dL POC Glucose (mg/dL) (70-110) mg/dL Plasma Lactic Acid Angelo (0.7-2.0) mmol/L Calcium (8.4-10.2) mg/dL AST (17-59) U/L ALT (4-49) U/L Troponin I 0.041 H* 0.346 H* (0.000-0.034) ng/mL HDL Cholesterol (40.00-60.00) mg/dL Procalcitonin 30.40 H (0.02-0.09) ng/mL 08/24/22 08/24/22 08/24/22 Range/Units 02:00 02:01 02:01 WBC (3.8-10.6) k/uL Hgb (13.0-17.5) gm/dL Hct (39.0-53.0) % MCHC (31.0-37.0) g/dL Plt Count (150-450) k/uL Lymphocytes # (Manual) (1.0-4.8) k/uL Metamyelocytes # (Man) (0) k/uL ABG pCO2 (35-45) mmHg ABG HCO3 (21-25) mmol/L ABG Total CO2 (19-24) mmol/L ABG O2 Saturation (94-97) % Chloride (98-107) mmol/L Carbon Dioxide (22-30) mmol/L BUN (9-20) mg/dL Creatinine (0.66-1.25) mg/dL Glucose (74-99) mg/dL POC Glucose (mg/dL) 119 H (70-110) mg/dL Plasma Lactic Acid Angelo 2.6 H* (0.7-2.0) mmol/L Calcium (8.4-10.2) mg/dL AST (17-59) U/L ALT (4-49) U/L Troponin I 0.491 H* (0.000-0.034) ng/mL HDL Cholesterol (40.00-60.00) mg/dL Procalcitonin (0.02-0.09) ng/mL 08/24/22 08/24/22 08/24/22 Range/Units 02:28 06:26 06:39 WBC (3.8-10.6) k/uL Hgb (13.0-17.5) gm/dL Hct (39.0-53.0) % MCHC 30.0 L (31.0-37.0) g/dL Plt Count 95 L (150-450) k/uL Lymphocytes # (Manual) 0.08 L (1.0-4.8) k/uL Metamyelocytes # (Man) 0.04 H (0) k/uL ABG pCO2 27 L (35-45) mmHg ABG HCO3 17 L (21-25) mmol/L ABG Total CO2 17 L (19-24) mmol/L ABG O2 Saturation 98.1 H (94-97) % Chloride (98-107) mmol/L Carbon Dioxide (22-30) mmol/L BUN (9-20) mg/dL Creatinine (0.66-1.25) mg/dL Glucose (74-99) mg/dL POC Glucose (mg/dL) (70-110) mg/dL Plasma Lactic Acid Angelo (0.7-2.0) mmol/L Calcium (8.4-10.2) mg/dL AST (17-59) U/L ALT (4-49) U/L Troponin I (0.000-0.034) ng/mL HDL Cholesterol 27.00 L (40.00-60.00) mg/dL Procalcitonin (0.02-0.09) ng/mL 08/24/22 08/24/22 08/24/22 Range/Units 06:39 06:39 07:15 WBC (3.8-10.6) k/uL Hgb (13.0-17.5) gm/dL Hct (39.0-53.0) % MCHC (31.0-37.0) g/dL Plt Count (150-450) k/uL Lymphocytes # (Manual) (1.0-4.8) k/uL Metamyelocytes # (Man) (0) k/uL ABG pCO2 (35-45) mmHg ABG HCO3 (21-25) mmol/L ABG Total CO2 (19-24) mmol/L ABG O2 Saturation (94-97) % Chloride 113 H (98-107) mmol/L Carbon Dioxide 15 L (22-30) mmol/L BUN 26 H (9-20) mg/dL Creatinine 2.53 H (0.66-1.25) mg/dL Glucose 63 L (74-99) mg/dL POC Glucose (mg/dL) 66 L (70-110) mg/dL Plasma Lactic Acid Angelo 4.8 H* (0.7-2.0) mmol/L Calcium 7.5 L (8.4-10.2) mg/dL AST (17-59) U/L ALT (4-49) U/L Troponin I (0.000-0.034) ng/mL HDL Cholesterol (40.00-60.00) mg/dL Procalcitonin (0.02-0.09) ng/mL 08/24/22 08/24/22 08/24/22 Range/Units 09:43 11:04 11:04 WBC (3.8-10.6) k/uL Hgb (13.0-17.5) gm/dL Hct (39.0-53.0) % MCHC (31.0-37.0) g/dL Plt Count (150-450) k/uL Lymphocytes # (Manual) (1.0-4.8) k/uL Metamyelocytes # (Man) (0) k/uL ABG pCO2 27 L (35-45) mmHg ABG HCO3 15 L (21-25) mmol/L ABG Total CO2 16 L (19-24) mmol/L ABG O2 Saturation 97.6 H (94-97) % Chloride (98-107) mmol/L Carbon Dioxide (22-30) mmol/L BUN (9-20) mg/dL Creatinine (0.66-1.25) mg/dL Glucose (74-99) mg/dL POC Glucose (mg/dL) (70-110) mg/dL Plasma Lactic Acid Angelo 2.2 H* (0.7-2.0) mmol/L Calcium (8.4-10.2) mg/dL AST 267 H (17-59) U/L ALT 68 H (4-49) U/L Troponin I (0.000-0.034) ng/mL HDL Cholesterol (40.00-60.00) mg/dL Procalcitonin (0.02-0.09) ng/mL 08/24/22 08/24/22 Range/Units 11:40 13:52 WBC (3.8-10.6) k/uL Hgb (13.0-17.5) gm/dL Hct (39.0-53.0) % MCHC (31.0-37.0) g/dL Plt Count (150-450) k/uL Lymphocytes # (Manual) (1.0-4.8) k/uL Metamyelocytes # (Man) (0) k/uL ABG pCO2 (35-45) mmHg ABG HCO3 (21-25) mmol/L ABG Total CO2 (19-24) mmol/L ABG O2 Saturation (94-97) % Chloride (98-107) mmol/L Carbon Dioxide (22-30) mmol/L BUN (9-20) mg/dL Creatinine (0.66-1.25) mg/dL Glucose (74-99) mg/dL POC Glucose (mg/dL) 54 L (70-110) mg/dL Plasma Lactic Acid Angelo 3.2 H* (0.7-2.0) mmol/L Calcium (8.4-10.2) mg/dL AST (17-59) U/L ALT (4-49) U/L Troponin I (0.000-0.034) ng/mL HDL Cholesterol (40.00-60.00) mg/dL Procalcitonin (0.02-0.09) ng/mL Microbiology - Last 24 Hours (Table) 08/23/22 19:48 Blood Culture - Final Blood 08/23/22 09:15 Urine Culture - Preliminary Urine,Voided Gram Neg Bacilli Diabetes panel 08/23/22 08/24/22 08/24/22 Range/Units 19:48 06:26 06:39 Sodium 137 138 (137-145) mmol/L Potassium 4.2 4.3 (3.5-5.1) mmol/L Chloride 108 H 113 H (98-107) mmol/L Carbon Dioxide 19 L 15 L (22-30) mmol/L BUN 24 H 26 H (9-20) mg/dL Creatinine 1.95 H 2.53 H (0.66-1.25) mg/dL Glucose 94 63 L (74-99) mg/dL Calcium 7.8 L 7.5 L (8.4-10.2) mg/dL AST (17-59) U/L ALT (4-49) U/L Alkaline Phosphatase (38-126) U/L Triglycerides 112.00 (0.00-149.00) mg/dL HDL Cholesterol 27.00 L (40.00-60.00) mg/dL 08/24/22 Range/Units 11:04 Sodium (137-145) mmol/L Potassium (3.5-5.1) mmol/L Chloride (98-107) mmol/L Carbon Dioxide (22-30) mmol/L BUN (9-20) mg/dL Creatinine (0.66-1.25) mg/dL Glucose (74-99) mg/dL Calcium (8.4-10.2) mg/dL AST 267 H (17-59) U/L ALT 68 H (4-49) U/L Alkaline Phosphatase 89 (38-126) U/L Triglycerides (0.00-149.00) mg/dL HDL Cholesterol (40.00-60.00) mg/dL Calcium panel 08/23/22 08/24/22 Range/Units 19:48 06:39 Calcium 7.8 L 7.5 L (8.4-10.2) mg/dL Pituitary panel 08/23/22 08/24/22 Range/Units 19:48 06:39 Sodium 137 138 (137-145) mmol/L Potassium 4.2 4.3 (3.5-5.1) mmol/L Chloride 108 H 113 H (98-107) mmol/L Carbon Dioxide 19 L 15 L (22-30) mmol/L BUN 24 H 26 H (9-20) mg/dL Creatinine 1.95 H 2.53 H (0.66-1.25) mg/dL Glucose 94 63 L (74-99) mg/dL Calcium 7.8 L 7.5 L (8.4-10.2) mg/dL Adrenal panel 08/23/22 08/24/22 08/24/22 Range/Units 19:48 06:39 11:04 Sodium 137 138 (137-145) mmol/L Potassium 4.2 4.3 (3.5-5.1) mmol/L Chloride 108 H 113 H (98-107) mmol/L Carbon Dioxide 19 L 15 L (22-30) mmol/L BUN 24 H 26 H (9-20) mg/dL Creatinine 1.95 H 2.53 H (0.66-1.25) mg/dL Glucose 94 63 L (74-99) mg/dL Calcium 7.8 L 7.5 L (8.4-10.2) mg/dL AST 267 H (17-59) U/L ALT 68 H (4-49) U/L Alkaline Phosphatase 89 (38-126) U/L Assessment and Plan Assessment: Bilateral carotid 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 It is unable to be reconfirmed on imaging as it was no contrast in the CT angiogram of the neck. Currently in the ICU with significant comorbidities and evidence of septic encephalopathy along with his stroke. The level of stenosis based on the carotid Doppler is just at 50%, regardless of this time patient is not a suitable candidate for surgical intervention currently. Would allow for therapies and improvement should he prevail from the ICU prior to any determination of intervention possibilities.. Current medications per neurology and critical care/primary. This is all discussed with the daughter who is at the bedside. She seemingly understands.
--- NOTE | 2022-08-24 21:14 | PCN ---
PROCEDURE NOTE This is a Pulmonary/Critical Care Procedure Note. PROCEDURE PERFORMED: Left subclavian triple-lumen catheter. PREOPERATIVE DIAGNOSES: Sepsis, hypotension, norepinephrine use. POSTOPERATIVE DIAGNOSES: Sepsis, hypotension, norepinephrine use. OPERATORS: Dr. De Santiago and Dr. Bennett. The patient's procedure took place in room #250 ICU. There was informed consent by the patient's grandson. TRIPLE LUMEN CATHETER PLACEMENT: Indication: Hemodynamic monitoring/Intravenous access. A time-out was completed verifying correct patient, procedure, site, positioning, and implant(s) or special equipment if applicable. The patient was placed in a dependent position appropriate for triple lumen catheter placement based on the vein to be cannulated. The patient's left shoulder or left neck or left groin was prepped and draped in sterile fashion. 1% Lidocaine was used to anesthetize the surrounding skin area. A triple lumen 9F Cordis catheter was introduced into the left subclavian vein using Seldinger technique. The catheter was threaded smoothly over the guide wire and appropriate blood return was obtained. Each lumen of the catheter was evacuated of air and flushed with sterile saline. The catheter was then sutured in place to the skin and a sterile dressing applied. Perfusion to the extremity distal to the point of catheter insertion was checked and found to be adequate. There was no immediate complication. There was good blood return from all 3 ports. The catheter was sutured in place. Sterile dressing was applied by the nurse. A chest x- ray was ordered to check placement, rule out pneumothorax. The patient tolerated the procedure well. There was no immediate complication. MMODL / IJN: [id number] /
[2022-08-25] MEDS: DEXTROSE 5% IN WATER 1,000 ML with SODIUM BICARB (1 MEQ/ML) 150 ML IV SCH (00:12)
[2022-08-25 00:15] LABS: Glucose,Whole Blood 85 mg/dL (70-110)
[2022-08-25 04:28] LABS: Basophils % (A) 0 %; Eosinophils # (A) 0.1 k/uL (0-0.7); Eosinophils % (A) 2 %; HCT 41.1 % (39.0-53.0); HGB 12.6 gm/dL (13.0-17.5); Hypochromasia Slight; Lymphocytes # (A) 0.4 k/uL (1.0-4.8); Lymphocytes % (A) 8 %; MCH 26.3 pg (25.0-35.0); MCHC 30.7 g/dL (31.0-37.0); MCV 85.7 fL (80.0-100.0); Mean Platelet Volume 8.2; Monocytes # (A) 0.1 k/uL (0-1.0); Monocytes % (A) 2 %; Neutrophils # (A) 4.2 k/uL (1.3-7.7); Neutrophils % (A) 84 %; RDW 14.3 % (11.5-15.5)
[2022-08-25 04:31] LABS: Platelet Count 95 k/uL (150-450)
[2022-08-25 04:38] LABS: Albumin 2.8 g/dL (3.5-5.0); Calcium 7.4 mg/dL (8.4-10.2); Potassium 3.9 mmol/L (3.5-5.1); Total Bilirubin 1.3 mg/dL (0.2-1.3); Total Protein 5.1 g/dL (6.3-8.2)
[2022-08-25 05:55] LABS: Glucose,Whole Blood 78 mg/dL (70-110)
[2022-08-25] MEDS: NOREPINEPHRINE 4 MG in SODIUM CHLORIDE 0.9% 250 ML IV SCH ×3 (06:58→18:22)
--- NOTE | 2022-08-25 08:16 | XR ---
EXAMINATION TYPE: XR chest 1V portable DATE OF EXAM: 08/25/2022 COMPARISON: Chest x-ray 08/24/2022 HISTORY: Possible aspiration pneumonia, abnormal chest x-ray TECHNIQUE: Single frontal view of the chest is obtained. FINDINGS: Left subclavian central venous catheter is again noted, distal tip is near the cavoatrial junction. Cardiac mediastinal silhouette is thought to be stable accounting for differences in techni que, rotation. There is prominence interstitium, patchy airspace disease present bilaterally similar to prior exam. Suspect calcified granuloma in the right midlung. Apical pleural thickening is again s een. IMPRESSION: There is underlying interstitial lung disease. Possible basilar atelectasis, difficult t o exclude pneumonia, edema.
[2022-08-25] MEDS ORDERED: SODIUM BICARB 8.4% 50 ML SYR (1 MEQ/ML) IV STA (08:17)
[2022-08-25] MEDS ORDERED: SODIUM CHLORIDE 0.9% 500 ML 500 ML IV ONE (08:19)
--- NOTE | 2022-08-25 08:42 | P.CONS ---
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 presenting to the ER 2 days ago for evaluation generalized weakness nausea and vomiting symptom has been going on for 2 days before the patient presented to the hospital patient apparently was at [employer] when he developed sudden onset abdominal pain and nausea and vomiting and weakness in the lower extremity for which the patient was brought into the hospital on arrival to the ER patient initially was afebrile subsequently did spike a fever of 103 F patient did have a normal white count BUN/creatinine has been elevated lactic acid was elevated as well as elevated liver enzymes procalcitonin is 30 patient did have a positive UA influenza and COVID testing were negative patient did have a chest x-ray mild pulmonary fibrotic changes old right-sided rib fracture and some subsegmental atelectasis patient did have a CT of abdominal pelvis left Iryflex inability unchanged some atelectasis lung bases no discrete liver mass changes of portal venous hypertension diverticulosis but no diverticulitis patient currently being treated with the Zosyn blood cultures coming back positive gram- negative bacilli that has prompted this infectious disease consultation most information has been obtained from review the chart and nursing staff as the patient is currently lethargic and did not answer any question Past Medical History Past Medical History: GERD/Reflux, Hypertension, Liver Disease, Osteoarthritis (OA), Prostate Disorder, Syncope, Thyroid Disorder Additional Past Medical History / Comment(s): 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 Past Anesthesia/Blood Transfusion Reactions: No Reported Reaction Additional Past Anesthesia/Blood Transfusion Reaction / Comm: Pt received blood in past without reaction. hx jaw fx- had surgery and has a plate. a little confusion when first waking up Past Psychological History: No Psychological Hx Reported Smoking Status: Never smoker Past Alcohol Use History: None Reported Past Drug Use History: None Reported - Past Family History Father Family Medical History: Cancer Additional Family Medical History / Comment(s): Father was healthy. He around the age of 83 yrs. Mother Family Medical History: Myocardial Infarction (ND) Additional Family Medical History / Comment(s): Mother of a ND at the age of 83 yrs. Medications and Allergies Home Medications Medication Instructions Recorded Confirmed Type Metoprolol Succinate [Toprol XL] 50 mg PO HS 07/20/15 08/23/22 History Tacrolimus [Prograf] 0.5 mg PO BID 07/20/15 08/23/22 History Tamsulosin [Flomax] 0.4 mg PO HS 07/20/15 08/23/22 History dexAMETHasone ORAL [Hexadrol] 0.5 mg PO HS 07/20/15 08/23/22 History mycophenolate mofetiL [Cellcept] 1,000 mg PO BID 07/20/15 08/23/22 History Pravastatin Sodium [Pravachol] 10 mg PO HS 03/03/17 08/23/22 History Aspirin EC [Ecotrin Low Dose] 81 mg PO HS 03/08/21 08/23/22 History Latanoprost [Xalatan 0.005%] 1 drop BOTH EYES HS 11/28/21 08/23/22 History Cholecalciferol [Vitamin D3 (125 125 mcg PO HS 08/23/22 08/23/22 History Mcg = 5000 Iu)] Multivitamins, Thera [Multivitamin 1 tab PO HS 08/23/22 08/23/22 History (formulary)] Omeprazole Magnesium [PriLOSEC OTC] 20 mg PO HS 08/23/22 08/23/22 History Allergies Allergy/AdvReac Type Severity Reaction Status Date / Time No Known Allergies Allergy Verified 08/23/22 07:35 Physical Exam Vitals: Vital Signs Temp Pulse Pulse Resp BP BP Pulse Ox 08/24/22 15:15 106 H 9 L 116/53 100 08/24/22 15:00 108 H 18 110/50 100 08/24/22 14:45 107 H 19 97/53 98 08/24/22 14:30 101 H 16 103/74 100 08/24/22 14:15 106 H 12 123/54 100 08/24/22 14:00 109 H 24 114/43 96 08/24/22 13:45 111 H 18 104/44 97 08/24/22 13:30 109 H 14 122/49 98 08/24/22 13:15 111 H 13 125/69 98 08/24/22 13:00 111 H 20 116/73 99 08/24/22 12:45 113 H 27 H 112/45 99 08/24/22 12:30 112 H 21 111/34 98 08/24/22 12:15 111 H 15 110/63 98 08/24/22 12:00 98.2 F 114 H 28 H 99/47 97 08/24/22 11:45 112 H 13 120/77 97 08/24/22 11:30 121 H 23 99/39 97 08/24/22 11:15 112 H 22 102/44 99 08/24/22 11:10 98.1 F 08/24/22 11:00 113 H 22 124/60 95 08/24/22 10:45 128 H 22 101/53 94 L 08/24/22 10:30 112 H 20 95/50 94 L 08/24/22 10:15 112 H 24 107/51 95 08/24/22 10:00 105 H 20 85/41 93 L 08/24/22 09:45 110 H 28 H 81/55 95 08/24/22 09:30 122 H 22 93/37 96 08/24/22 09:15 115 H 13 100/46 97 08/24/22 09:00 113 H 22 86/44 94 L 08/24/22 08:45 121 H 13 91/52 95 08/24/22 08:30 112 H 28 H 109/47 95 08/24/22 08:04 100 08/24/22 08:00 101.8 F H 113 H 28 H 107/59 97 08/24/22 07:30 105 H 10 L 106/58 99 08/24/22 07:00 109 H 19 100/65 100 08/24/22 06:30 109 H 23 127/57 100 08/24/22 06:00 114 H 15 115/59 99 08/24/22 05:30 113 H 16 115/50 99 08/24/22 05:00 111 H 30 H 89/52 100 08/24/22 04:45 110 H 18 92/52 100 08/24/22 04:30 110 H 11 L 95/45 100 08/24/22 04:15 116 H 15 95/42 99 08/24/22 04:00 100.5 F H 113 H 23 101/49 100 08/24/22 03:45 109 H 19 107/48 99 08/24/22 03:30 109 H 18 102/55 98 08/24/22 03:15 114 H 16 102/55 98 08/24/22 03:00 117 H 19 92/50 99 08/24/22 02:45 117 H 22 98/48 98 08/24/22 02:30 103.5 F H 130 H 27 H 85/47 96 08/23/22 21:10 100.3 F H 114 H 19 143/67 100 08/23/22 20:14 103.2 F H 94 19 143/63 94 L 08/23/22 20:10 103.2 F H 125 H 18 135/57 94 L 08/23/22 19:20 103.1 F H 08/23/22 19:10 100.8 F H 08/23/22 18:07 85 12 117/50 99 Intake and Output 08/24/22 08/24/22 08/24/22 06:59 14:59 22:59 Intake Total 520 1068.463 Output Total 105 335 Balance 415 733.463 Intake: IV 520 890 Dextrose 5% in Water 1, 100 000 ml @ 100 mls/hr IV . [id number] TAMARA with Sodium Bicarb (1 Meq/ml) 150 ml Rx#:[id number] Sodium Chloride 0.9% 1, 520 790 000 ml @ 130 mls/hr IV . Q7H42M TAMARA Rx#:[id number] Intake, IV Titration 178.463 Amount Norepinephrine 4 mg In 178.463 Sodium Chloride 0.9% 250 ml @ 0.03 MCG/KG/MIN 10. 369 mls/hr IV .Q24H TAMARA Rx#:[id number] Output: Urine 105 335 Other: Voiding Method Indwelling Catheter Indwelling Catheter # Bowel Movements 1 Results CBC & Chem 7: 08/25/22 04:17 08/25/22 04:17 Labs: Abnormal Lab Results - Last 24 Hours (Table) 08/23/22 08/23/22 08/23/22 Range/Units 19:48 19:48 19:48 WBC 0.6 L* (3.8-10.6) k/uL Hgb 12.2 L (13.0-17.5) gm/dL Hct 38.4 L (39.0-53.0) % MCHC (31.0-37.0) g/dL Plt Count 113 L (150-450) k/uL Lymphocytes # (Manual) (1.0-4.8) k/uL Metamyelocytes # (Man) (0) k/uL ABG pCO2 (35-45) mmHg ABG HCO3 (21-25) mmol/L ABG Total CO2 (19-24) mmol/L ABG O2 Saturation (94-97) % Chloride 108 H (98-107) mmol/L Carbon Dioxide 19 L (22-30) mmol/L BUN 24 H (9-20) mg/dL Creatinine 1.95 H (0.66-1.25) mg/dL Glucose (74-99) mg/dL POC Glucose (mg/dL) (70-110) mg/dL Plasma Lactic Acid Angelo 2.2 H* (0.7-2.0) mmol/L Calcium 7.8 L (8.4-10.2) mg/dL AST (17-59) U/L ALT (4-49) U/L Troponin I (0.000-0.034) ng/mL HDL Cholesterol (40.00-60.00) mg/dL Procalcitonin (0.02-0.09) ng/mL 08/23/22 08/23/22 08/23/22 Range/Units 19:48 19:48 23:25 WBC (3.8-10.6) k/uL Hgb (13.0-17.5) gm/dL Hct (39.0-53.0) % MCHC (31.0-37.0) g/dL Plt Count (150-450) k/uL Lymphocytes # (Manual) (1.0-4.8) k/uL Metamyelocytes # (Man) (0) k/uL ABG pCO2 (35-45) mmHg ABG HCO3 (21-25) mmol/L ABG Total CO2 (19-24) mmol/L ABG O2 Saturation (94-97) % Chloride (98-107) mmol/L Carbon Dioxide (22-30) mmol/L BUN (9-20) mg/dL Creatinine (0.66-1.25) mg/dL Glucose (74-99) mg/dL POC Glucose (mg/dL) (70-110) mg/dL Plasma Lactic Acid Angelo (0.7-2.0) mmol/L Calcium (8.4-10.2) mg/dL AST (17-59) U/L ALT (4-49) U/L Troponin I 0.041 H* 0.346 H* (0.000-0.034) ng/mL HDL Cholesterol (40.00-60.00) mg/dL Procalcitonin 30.40 H (0.02-0.09) ng/mL 08/24/22 08/24/22 08/24/22 Range/Units 02:00 02:01 02:01 WBC (3.8-10.6) k/uL Hgb (13.0-17.5) gm/dL Hct (39.0-53.0) % MCHC (31.0-37.0) g/dL Plt Count (150-450) k/uL Lymphocytes # (Manual) (1.0-4.8) k/uL Metamyelocytes # (Man) (0) k/uL ABG pCO2 (35-45) mmHg ABG HCO3 (21-25) mmol/L ABG Total CO2 (19-24) mmol/L ABG O2 Saturation (94-97) % Chloride (98-107) mmol/L Carbon Dioxide (22-30) mmol/L BUN (9-20) mg/dL Creatinine (0.66-1.25) mg/dL Glucose (74-99) mg/dL POC Glucose (mg/dL) 119 H (70-110) mg/dL Plasma Lactic Acid Angelo 2.6 H* (0.7-2.0) mmol/L Calcium (8.4-10.2) mg/dL AST (17-59) U/L ALT (4-49) U/L Troponin I 0.491 H* (0.000-0.034) ng/mL HDL Cholesterol (40.00-60.00) mg/dL Procalcitonin (0.02-0.09) ng/mL 08/24/22 08/24/22 08/24/22 Range/Units 02:28 06:26 06:39 WBC (3.8-10.6) k/uL Hgb (13.0-17.5) gm/dL Hct (39.0-53.0) % MCHC 30.0 L (31.0-37.0) g/dL Plt Count 95 L (150-450) k/uL Lymphocytes # (Manual) 0.08 L (1.0-4.8) k/uL Metamyelocytes # (Man) 0.04 H (0) k/uL ABG pCO2 27 L (35-45) mmHg ABG HCO3 17 L (21-25) mmol/L ABG Total CO2 17 L (19-24) mmol/L ABG O2 Saturation 98.1 H (94-97) % Chloride (98-107) mmol/L Carbon Dioxide (22-30) mmol/L BUN (9-20) mg/dL Creatinine (0.66-1.25) mg/dL Glucose (74-99) mg/dL POC Glucose (mg/dL) (70-110) mg/dL Plasma Lactic Acid Angelo (0.7-2.0) mmol/L Calcium (8.4-10.2) mg/dL AST (17-59) U/L ALT (4-49) U/L Troponin I (0.000-0.034) ng/mL HDL Cholesterol 27.00 L (40.00-60.00) mg/dL Procalcitonin (0.02-0.09) ng/mL 08/24/22 08/24/22 08/24/22 Range/Units 06:39 06:39 07:15 WBC (3.8-10.6) k/uL Hgb (13.0-17.5) gm/dL Hct (39.0-53.0) % MCHC (31.0-37.0) g/dL Plt Count (150-450) k/uL Lymphocytes # (Manual) (1.0-4.8) k/uL Metamyelocytes # (Man) (0) k/uL ABG pCO2 (35-45) mmHg ABG HCO3 (21-25) mmol/L ABG Total CO2 (19-24) mmol/L ABG O2 Saturation (94-97) % Chloride 113 H (98-107) mmol/L Carbon Dioxide 15 L (22-30) mmol/L BUN 26 H (9-20) mg/dL Creatinine 2.53 H (0.66-1.25) mg/dL Glucose 63 L (74-99) mg/dL POC Glucose (mg/dL) 66 L (70-110) mg/dL Plasma Lactic Acid Angelo 4.8 H* (0.7-2.0) mmol/L Calcium 7.5 L (8.4-10.2) mg/dL AST (17-59) U/L ALT (4-49) U/L Troponin I (0.000-0.034) ng/mL HDL Cholesterol (40.00-60.00) mg/dL Procalcitonin (0.02-0.09) ng/mL 08/24/22 08/24/22 08/24/22 Range/Units 09:43 11:04 11:04 WBC (3.8-10.6) k/uL Hgb (13.0-17.5) gm/dL Hct (39.0-53.0) % MCHC (31.0-37.0) g/dL Plt Count (150-450) k/uL Lymphocytes # (Manual) (1.0-4.8) k/uL Metamyelocytes # (Man) (0) k/uL ABG pCO2 27 L (35-45) mmHg ABG HCO3 15 L (21-25) mmol/L ABG Total CO2 16 L (19-24) mmol/L ABG O2 Saturation 97.6 H (94-97) % Chloride (98-107) mmol/L Carbon Dioxide (22-30) mmol/L BUN (9-20) mg/dL Creatinine (0.66-1.25) mg/dL Glucose (74-99) mg/dL POC Glucose (mg/dL) (70-110) mg/dL Plasma Lactic Acid Angelo 2.2 H* (0.7-2.0) mmol/L Calcium (8.4-10.2) mg/dL AST 267 H (17-59) U/L ALT 68 H (4-49) U/L Troponin I (0.000-0.034) ng/mL HDL Cholesterol (40.00-60.00) mg/dL Procalcitonin (0.02-0.09) ng/mL 08/24/22 08/24/22 Range/Units 11:40 13:52 WBC (3.8-10.6) k/uL Hgb (13.0-17.5) gm/dL Hct (39.0-53.0) % MCHC (31.0-37.0) g/dL Plt Count (150-450) k/uL Lymphocytes # (Manual) (1.0-4.8) k/uL Metamyelocytes # (Man) (0) k/uL ABG pCO2 (35-45) mmHg ABG HCO3 (21-25) mmol/L ABG Total CO2 (19-24) mmol/L ABG O2 Saturation (94-97) % Chloride (98-107) mmol/L Carbon Dioxide (22-30) mmol/L BUN (9-20) mg/dL Creatinine (0.66-1.25) mg/dL Glucose (74-99) mg/dL POC Glucose (mg/dL) 54 L (70-110) mg/dL Plasma Lactic Acid Angelo 3.2 H* (0.7-2.0) mmol/L Calcium (8.4-10.2) mg/dL AST (17-59) U/L ALT (4-49) U/L Troponin I (0.000-0.034) ng/mL HDL Cholesterol (40.00-60.00) mg/dL Procalcitonin (0.02-0.09) ng/mL Microbiology - Last 24 Hours (Table) 08/23/22 09:15 Urine Culture - Preliminary Urine,Voided Gram Neg Bacilli Assessment and Plan Plan: 1patient presented to hospital with abdominal pain and nausea and vomiting in this patient did have a positive UA CT abdominal pelvis did not show any acute abnormality abdominal soft medical examination patient did have a positive UA concerning for symptomatic urinary tract infection likely from enteric gram- negative pathogen, patient subsequently did have slight worsening of his respiratory status and concern for possible aspiration pneumonitis. 2positive blood culture with gram-negative bacilli source likely urinary. 3patient to continue with the Zosyn while waiting for the cultures to be finalized We will follow on clinical condition and cultures to further adjust medication if needed Thank you for this consultation will follow this patient along with you
[2022-08-25 08:45] LABS: ABG HCO3 22 mmol/L (21-25); ABG Oxygen Saturation 84.5 % (94-97); ABG PCO2 30 mmHg (35-45); ABG PH 7.49 (7.35-7.45); ABG TCO2 23 mmol/L (19-24); Allen Test Performed? Yes
--- NOTE | 2022-08-25 09:13 | P.PN ---
Subjective Patient is seen in follow for acute kidney injury. Creatinine 2.78 today. Nonoliguric. Acidosis improved. Mentation has worsened. Patient is quite lethargic. Nothing by mouth. On Levophed. Vital signs are stable. On vasopressor support. General: Resting in bed. Lethargic. HEENT: On nasal cannula. LUNGS: Breath sounds decreased. HEART: Tachycardic. ABDOMEN: Soft, no distention. EXTREMITITES: No edema. Chronic changes noted. Objective - Vital Signs Vital signs: Vital Signs Temp 104.1 F H 08/25/22 08:00 Pulse 128 H 08/25/22 09:00 Resp 19 08/25/22 09:00 BP 120/51 08/25/22 09:00 Pulse Ox 98 08/25/22 09:00 FiO2 Intake & Output 08/24/22 08/25/22 08/25/22 18:59 06:59 18:59 Intake Total 3935.948 0929.412 Output Total 760 1210 Balance 820.528 510.412 Weight 95 kg Intake: IV 1330 1330 Dextrose 5% in Water 1, 500 1300 000 ml @ 100 mls/hr IV . [id number] TAMARA with Sodium Bicarb (1 Meq/ml) 150 ml Rx#:[id number] Sodium Chloride 0.9% 1, 830 30 000 ml @ 130 mls/hr IV . Q7H42M TAMARA Rx#:[id number] Intake, IV Titration 250.528 390.412 Amount Norepinephrine 4 mg In 250.528 390.412 Sodium Chloride 0.9% 250 ml @ 0.03 MCG/KG/MIN 10. 369 mls/hr IV .Q24H TAMARA Rx#:[id number] Output: Urine 760 1210 Other: Voiding Method Indwelling Catheter Indwelling Catheter # Voids 85 # Bowel Movements 1 1 - Labs CBC & Chem 7: 08/25/22 04:17 08/25/22 04:17 Labs: Abnormal Lab Results - Last 24 Hours (Table) 08/24/22 08/24/22 08/24/22 Range/Units 06:26 09:43 11:04 Hgb (13.0-17.5) gm/dL MCHC (31.0-37.0) g/dL Plt Count (150-450) k/uL Lymphocytes # (1.0-4.8) k/uL ABG pCO2 27 L (35-45) mmHg ABG HCO3 15 L (21-25) mmol/L ABG Total CO2 16 L (19-24) mmol/L ABG O2 Saturation 97.6 H (94-97) % Chloride (98-107) mmol/L Carbon Dioxide (22-30) mmol/L BUN (9-20) mg/dL Creatinine (0.66-1.25) mg/dL POC Glucose (mg/dL) (70-110) mg/dL Plasma Lactic Acid Angelo 2.2 H* (0.7-2.0) mmol/L Calcium (8.4-10.2) mg/dL AST (17-59) U/L ALT (4-49) U/L Total Protein (6.3-8.2) g/dL Albumin (3.5-5.0) g/dL HDL Cholesterol 27.00 L (40.00-60.00) mg/dL 08/24/22 08/24/22 08/24/22 Range/Units 11:04 11:40 13:52 Hgb (13.0-17.5) gm/dL MCHC (31.0-37.0) g/dL Plt Count (150-450) k/uL Lymphocytes # (1.0-4.8) k/uL ABG pCO2 (35-45) mmHg ABG HCO3 (21-25) mmol/L ABG Total CO2 (19-24) mmol/L ABG O2 Saturation (94-97) % Chloride (98-107) mmol/L Carbon Dioxide (22-30) mmol/L BUN (9-20) mg/dL Creatinine (0.66-1.25) mg/dL POC Glucose (mg/dL) 54 L (70-110) mg/dL Plasma Lactic Acid Angelo 3.2 H* (0.7-2.0) mmol/L Calcium (8.4-10.2) mg/dL AST 267 H (17-59) U/L ALT 68 H (4-49) U/L Total Protein (6.3-8.2) g/dL Albumin (3.5-5.0) g/dL HDL Cholesterol (40.00-60.00) mg/dL 08/24/22 08/24/22 08/24/22 Range/Units 17:00 20:31 23:48 Hgb (13.0-17.5) gm/dL MCHC (31.0-37.0) g/dL Plt Count (150-450) k/uL Lymphocytes # (1.0-4.8) k/uL ABG pCO2 (35-45) mmHg ABG HCO3 (21-25) mmol/L ABG Total CO2 (19-24) mmol/L ABG O2 Saturation (94-97) % Chloride (98-107) mmol/L Carbon Dioxide (22-30) mmol/L BUN (9-20) mg/dL Creatinine (0.66-1.25) mg/dL POC Glucose (mg/dL) (70-110) mg/dL Plasma Lactic Acid Angelo 3.7 H* 2.2 H* 2.4 H* (0.7-2.0) mmol/L Calcium (8.4-10.2) mg/dL AST (17-59) U/L ALT (4-49) U/L Total Protein (6.3-8.2) g/dL Albumin (3.5-5.0) g/dL HDL Cholesterol (40.00-60.00) mg/dL 08/25/22 08/25/22 08/25/22 Range/Units 04:17 04:17 04:17 Hgb 12.6 L (13.0-17.5) gm/dL MCHC 30.7 L (31.0-37.0) g/dL Plt Count 95 L (150-450) k/uL Lymphocytes # 0.4 L (1.0-4.8) k/uL ABG pCO2 (35-45) mmHg ABG HCO3 (21-25) mmol/L ABG Total CO2 (19-24) mmol/L ABG O2 Saturation (94-97) % Chloride 109 H (98-107) mmol/L Carbon Dioxide 21 L (22-30) mmol/L BUN 27 H (9-20) mg/dL Creatinine 2.78 H (0.66-1.25) mg/dL POC Glucose (mg/dL) (70-110) mg/dL Plasma Lactic Acid Angelo 2.8 H* (0.7-2.0) mmol/L Calcium 7.4 L (8.4-10.2) mg/dL AST 284 H (17-59) U/L ALT 81 H (4-49) U/L Total Protein 5.1 L (6.3-8.2) g/dL Albumin 2.8 L (3.5-5.0) g/dL HDL Cholesterol (40.00-60.00) mg/dL Microbiology - Last 24 Hours (Table) 08/23/22 19:48 Blood Culture Gram Stain - Preliminary Blood Blood Culture - Preliminary Proteus Species 08/23/22 19:48 Blood Culture - Final Blood 08/23/22 09:15 Urine Culture - Preliminary Urine,Voided Gram Neg Bacilli Assessment and Plan Plan: Assessment: 1. Acute kidney injury secondary to ATN secondary to septic shock and contrast- induced acute kidney injury. Patient received IV contrast on 08/23/2022. Creatinine was 1.74 on admission and is 2.78 today. Nonoliguric. No hydronephrosis noted on CAT scan. 2. Chronic kidney disease stage IIIa with baseline creatinine in the range of 1.2-1.5 secondary to nephrosclerosis and long-term calcineurin inhibitor use. 3. 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 4. Metabolic acidosis secondary to acute kidney injury, lactic acidosis and IV fluids. Patient has received 3 L of normal saline in the ICU. 5. Acute CVA with history of prior CVA as well. Neurology following. 6. Septic shock secondary to gram-negative UTI and Proteus bacteremia on antibiotics. On Levophed. Plan: Change bicarb drip back to normal saline at 75 mL an hour. 500 mL bolus of normal saline now. 2 A of sodium bicarbonate IV push now. Hold CellCept due to septic shock. Prograf and steroids also held as patient is unable to take oral meds. Start Solu-Medrol 40 mg IV once daily. Follow-up Prograf level. Avoid nephrotoxins. Continue to monitor renal function and urine output.
[2022-08-25] MEDS: methylPREDNISolone SOD SUCCI 40 MG/ML 1 ML VIAL IV SCH (09:25)
[2022-08-25] MEDS: DEXTROSE 5%-0.9% NACL 1,000 ML IV SCH ×2 (09:25→22:57)
[2022-08-25] MEDS ORDERED: LORazepam 2 MG/ML INJ IV STA (09:31)
[2022-08-25] MEDS ORDERED: MORPHINE SULFATE 4 MG/ML SYRINGE IVP STA (09:32)
[2022-08-25] MEDS ORDERED: CISATRACURIUM 2 MG/ML 5 ML VIAL IV ONE (09:35)
[2022-08-25] MEDS ORDERED: SUCCINYLCHOLINE CHLORIDE 200 MG/10 ML VIAL IV ONE (09:40)
--- NOTE | 2022-08-25 10:01 | P.PN ---
Subjective Progress Note Date: 08/25/22 The patient seen at bedside and according to the nurse the patient was not able to get MRI because she is on norepinephrine IV drip. And yesterday he was having vomiting episodes. Per the nurse patient mentation has been worsening and she felt the pupils are unequal the right more than the left. His res piratory condition is worsening. He was declined fot transfer to [facility] for escalation of care. Objective - Vital Signs Vital signs: Vital Signs Temp 104.1 F H 08/25/22 08:00 Pulse 128 H 08/25/22 09:00 Resp 19 08/25/22 09:00 BP 120/51 08/25/22 09:00 Pulse Ox 98 08/25/22 09:00 FiO2 Intake & Output 08/24/22 08/25/22 08/25/22 18:59 06:59 18:59 Intake Total 5899.340 1737.412 Output Total 760 1210 Balance 820.528 510.412 Weight 95 kg Intake: IV 1330 1330 Dextrose 5% in Water 1, 500 1300 000 ml @ 100 mls/hr IV . [id number] TAMARA with Sodium Bicarb (1 Meq/ml) 150 ml Rx#:[id number] Sodium Chloride 0.9% 1, 830 30 000 ml @ 130 mls/hr IV . Q7H42M TAMARA Rx#:[id number] Intake, IV Titration 250.528 390.412 Amount Norepinephrine 4 mg In 250.528 390.412 Sodium Chloride 0.9% 250 ml @ 0.03 MCG/KG/MIN 10. 369 mls/hr IV .Q24H TAMARA Rx#:[id number] Output: Urine 760 1210 Other: Voiding Method Indwelling Catheter Indwelling Catheter # Voids 85 # Bowel Movements 1 1 - Exam GENERAL: The patient is lying in bed and is not in acute distress. NEUROLOGICAL: Limited because of his condition. Higher mental function: The patient is severely lethargic. He would open his eyes to voice and is either not verbally responsive or mumbles, and his words are low pinched and not understood. Not following commands. Cranial nerves: The pupils are round. Right pupil is 3-3.5mm while left is 2mm and bilaterally reactive to light. Primary gaze is midline. No tracking with eyes. Mild right lower facial droop. Has hypophonia with limited speech. Motor: The strength is plegic over the entire right side (upper and lower). While left side he would have spontaneously episode of moving his hand and wiggle his toes on left toes. Decrease tone over the right but minimally decreased over the left side. Cerebellum: Unable to assess. Sensation: Unable to assess. SOME OF THE WORK-UP DURING THIS HOSPITAL VISIT CONSISTED OF: Platelet is 95 and on initial presentation was 159. Urine culture is positive for gram-negative bacilli. Blood culture is positive for Proteus species Lipid panel is triglyceride 112, cholesterol 111, LDL is 61, HDL is 27. Patient lactic acid continues to be elevated he presented with lactic acid venous of 2.1 and currently 2.8 and during his hospital visit was as high as 4.[address] of the head is reported as cerebral atrophy. Old small cortical inf arct in the left internal capsule. No acute abnormality. CT angiography of the head and neck is reported as angiogram is nondiagnostic since there is no vascular contrast. There is cerebral or cortical atrophy. No acute intercranial abnormality. No significant abnormality of the neck. Mild spondylitic changes in the cervical spine. Repeat CT of the head as reported as there is a 4 cm poorly marginated area of hypodensity in the left parietal lobe consistent with acute infarct and isn't changed compared to recent exam. No hemorrhage seen. Cerebral atrophy. Then later, reading radiologist has addendum and reports it is that acute infarct is a change compared to recent exam. I personally reviewed the CT of the head on the most recent CT that was done last and I felt the left parietal seemed acute. There is no intraparenchymal hemorrhage. And then I was compared it to initial CT head on presentation, I felt different in which, I did not notice any remarkable acute ischemic in left parietal on initial CT. Carotid duplex was reported as there is bilateral plaque formation. There is bilateral mild elevation of internal carotid artery velocity. There is an tegrade flow in the vertebral arteries. The images and measurements suggest 50- 70% stenosis in both internal carotid arteries. - Labs CBC & Chem 7: 08/25/22 04:17 08/25/22 04:17 Labs: Abnormal Lab Results - Last 24 Hours (Table) 08/24/22 08/24/22 08/24/22 Range/Units 06:26 09:43 11:04 Hgb (13.0-17.5) gm/dL MCHC (31.0-37.0) g/dL Plt Count (150-450) k/uL Lymphocytes # (1.0-4.8) k/uL ABG pCO2 27 L (35-45) mmHg ABG HCO3 15 L (21-25) mmol/L ABG Total CO2 16 L (19-24) mmol/L ABG O2 Saturation 97.6 H (94-97) % Chloride (98-107) mmol/L Carbon Dioxide (22-30) mmol/L BUN (9-20) mg/dL Creatinine (0.66-1.25) mg/dL POC Glucose (mg/dL) (70-110) mg/dL Plasma Lactic Acid Angelo 2.2 H* (0.7-2.0) mmol/L Calcium (8.4-10.2) mg/dL AST (17-59) U/L ALT (4-49) U/L Total Protein (6.3-8.2) g/dL Albumin (3.5-5.0) g/dL HDL Cholesterol 27.00 L (40.00-60.00) mg/dL 08/24/22 08/24/22 08/24/22 Range/Units 11:04 11:40 13:52 Hgb (13.0-17.5) gm/dL MCHC (31.0-37.0) g/dL Plt Count (150-450) k/uL Lymphocytes # (1.0-4.8) k/uL ABG pCO2 (35-45) mmHg ABG HCO3 (21-25) mmol/L ABG Total CO2 (19-24) mmol/L ABG O2 Saturation (94-97) % Chloride (98-107) mmol/L Carbon Dioxide (22-30) mmol/L BUN (9-20) mg/dL Creatinine (0.66-1.25) mg/dL POC Glucose (mg/dL) 54 L (70-110) mg/dL Plasma Lactic Acid Angelo 3.2 H* (0.7-2.0) mmol/L Calcium (8.4-10.2) mg/dL AST 267 H (17-59) U/L ALT 68 H (4-49) U/L Total Protein (6.3-8.2) g/dL Albumin (3.5-5.0) g/dL HDL Cholesterol (40.00-60.00) mg/dL 08/24/22 08/24/22 08/24/22 Range/Units 17:00 20:31 23:48 Hgb (13.0-17.5) gm/dL MCHC (31.0-37.0) g/dL Plt Count (150-450) k/uL Lymphocytes # (1.0-4.8) k/uL ABG pCO2 (35-45) mmHg ABG HCO3 (21-25) mmol/L ABG Total CO2 (19-24) mmol/L ABG O2 Saturation (94-97) % Chloride (98-107) mmol/L Carbon Dioxide (22-30) mmol/L BUN (9-20) mg/dL Creatinine (0.66-1.25) mg/dL POC Glucose (mg/dL) (70-110) mg/dL Plasma Lactic Acid Angelo 3.7 H* 2.2 H* 2.4 H* (0.7-2.0) mmol/L Calcium (8.4-10.2) mg/dL AST (17-59) U/L ALT (4-49) U/L Total Protein (6.3-8.2) g/dL Albumin (3.5-5.0) g/dL HDL Cholesterol (40.00-60.00) mg/dL 08/25/22 08/25/22 08/25/22 Range/Units 04:17 04:17 04:17 Hgb 12.6 L (13.0-17.5) gm/dL MCHC 30.7 L (31.0-37.0) g/dL Plt Count 95 L (150-450) k/uL Lymphocytes # 0.4 L (1.0-4.8) k/uL ABG pCO2 (35-45) mmHg ABG HCO3 (21-25) mmol/L ABG Total CO2 (19-24) mmol/L ABG O2 Saturation (94-97) % Chloride 109 H (98-107) mmol/L Carbon Dioxide 21 L (22-30) mmol/L BUN 27 H (9-20) mg/dL Creatinine 2.78 H (0.66-1.25) mg/dL POC Glucose (mg/dL) (70-110) mg/dL Plasma Lactic Acid Angelo 2.8 H* (0.7-2.0) mmol/L Calcium 7.4 L (8.4-10.2) mg/dL AST 284 H (17-59) U/L ALT 81 H (4-49) U/L Total Protein 5.1 L (6.3-8.2) g/dL Albumin 2.8 L (3.5-5.0) g/dL HDL Cholesterol (40.00-60.00) mg/dL Microbiology - Last 24 Hours (Table) 08/23/22 19:48 Blood Culture Gram Stain - Preliminary Blood Blood Culture - Preliminary Proteus Species 08/23/22 19:48 Blood Culture - Final Blood 08/23/22 09:15 Urine Culture - Preliminary Urine,Voided Gram Neg Bacilli Assessment and Plan Assessment: This is a 76-year-old gentleman who presented because of weakness over the right side and was worsening. Was felt his weakness started on 08/22/2022. * Acute ischemic stroke over left parietal (on CT) with presentation of w orsening right sided weakness. On examination he has right sided hemiplegia, dysarthria, right facial weakness. No IV tpa since unknown last normal (but seems outside window). Today he is more lethargic and responsive. * Altered mental status seems due to multifactorial: Septic encephalopathy (UTI) , blood culture is positive for proteus species, metabolic encephalopathy due to worsening kidney function, electrolyte disturbance and due to stroke * Carotid stenosis 50-70% bilateral ICA on carotid duplex but was felt just at 50% by vascular surgery team. * Sepsis (likely due to UTI and blood is positive for proteus species) * Acute on chronic kidney insufficiency--worsening * Elevated liver function with AST currently is 284 and ALT of 81. * History of old stroke with some weakness possible lower weakness but was able to ambulate * History of liver failure s/p transplant Plan: Pending MRI of the brain, MRA of the head stat. Has not be done yet since patient is unstable for test. Because of worsening of his mentation and neurology examination L get a repeat CT of the head to rule out any new stroke lesion or any hemorrhage. I ordered a routine EEG because of his encephalopathy to rule out any underlying seizure which seems unlikely. Ordered ammonia level. Currently the patient is on aspirin 81 mg daily (home meds) and once his platelets improves recommend dual antiplatelet of aspirin 81 and Plavix 75 mg daily. Continue Lipitor 40 mg daily at bedtime for secondary stroke prophylaxis 2-D echo was ordered and is pending [employer] vascular surgery team for the carotid stenosis and they felt carotid stenosis at 50%. They did not feel he was a surgical candidate at this time. I agree that patient condition is currently unstable for carotid surgical int ervention. PT, OT and PRICE CHANGER are consulted Continue neuro checks Avoid hypotensive episodes and recommend systolic blood pressure 140-180. He is currently on norepinephrine. I.D. team is consulted for his sepsis. On cardiac monitoring. We'll defer the rest of the medical management to the primary and ICU team For DVT prophylaxis the patient is on subcu heparin 5000 units every 12 hours Patient condition is critical. The plan is discussed with his nurse and will update his family members later today. UPDATE: Patient was intubated by ICU team since it was felt unable to protect his airway especially with worsening mentation. The patient had a repeat CT head and port as increased size of low attenuation region in the medial left frontal/parietal lobe consistent with evolving acute/subacute infarct compared to the prior CT brain on 08/23/2022. No evidence for hemorrhagic conversion. I personally reviewed the image and I do agree there is evolution of the stroke but I feel mostly it's over the left parietal stroke than frontal. I have updated the patient's family (his daughter (Thais) and grand-son) via phone. Time with Patient: Less than 30
[2022-08-25] MEDS ORDERED: SUCCINYLCHOLINE CHLORIDE 200 MG/10 ML VIAL IV STA (10:07)
[2022-08-25] MEDS ORDERED: propofoL 100 ML IV ONE (10:09)
[2022-08-25] MEDS: HEPARIN SODIUM,PORCINE/PF 5,000 UNIT/0.5 ML SYRINGE SQ SCH ×2 (10:13→22:56)
[2022-08-25] MEDS: TACROLIMUS 0.5 MG CAP PO SCH ×3 (10:13→23:14)
[2022-08-25] MEDS: PIPERACILLIN-TAZOBACTAM 3.375 GM in SODIUM CHLORIDE 0.9% 100 ML IVPB SCH ×3 (10:45→22:57)
--- NOTE | 2022-08-25 10:49 | XR ---
EXAMINATION TYPE: XR chest 1V confirm line [facility] DATE OF EXAM: 08/25/2022 COMPARISON: 08/25/2022 HISTORY: 76-year-old male ET, NG tube placement TECHNIQUE: Single frontal view of the chest is obtained. FINDINGS: Prominent overlying external artifacts. ET tube and NG tube are satisfactory. Old right-sided rib fra cture deformities. Mild diffuse interstitial density. Continued left basilar opacity. Left subclavian CVC tip at the cavoatrial junction. IMPRESSION: Limited by external artifact. Satisfactory ET and NG tubes. Otherwise, stable exam with prominent lef t basilar opacity and mild diffuse interstitial changes.
[2022-08-25 11:55] LABS: Glucose,Whole Blood 74 mg/dL (70-110)
--- NOTE | 2022-08-25 12:14 | P.PN ---
Subjective 76-year-old the male came in with the comments of generalized weakness and a nonspecific abdominal pain diffuse. Patient the overall clinical condition gotten worse patient became more septic patient is on immunosuppressive therapy with tacrolimus, mycophenolate. Patient was subsequently admitted to ICU. Patient neurological status also has worsened because of which the it was believed the patient has stroke. Patient does have chronic right-sided weakness with strength of 3/5 which is his baseline. Patient underwent multiple imaging studies including her CT angios the head and neck as well as a CT of the head which showed acute ischemic stroke over the left parietal lobe with worsening weakness on the right side. Patient continued to be on antiplatelet therapy. Patient urine cultures came back positive for Proteus mirabilis and patient blood cultures are now positive for Proteus species possible source of infection being urinary tract infection this Proteus species is pansensitive to multiple antibiotics patient is presently on Zosyn. Patient liver enzymes on admission were within normal limits patient is a liver transplant patient patient liver enzymes went up minimally to 284 and ALP of 81 this is probably secondary to sepsis and patient has acute tumor necrosis secondary to sepsis with worsening creatinine of around 2.8 baseline creatinine of around 1. Patient was encephalopathic EEG was ordered.. Today morning patient is found to be hypoxic any arterial blood gases after which patient was intubated patient is presently on 100% FiO2 assist control ventilation with PEEP of 5. Patient with the has troponin of 0.49 secondary to sepsis. Review of systems: Unable to obtain as patient is intubated PHYSICAL EXAMINATION: GENERAL: This is a 76 year old male who appears stated age. Patient is intubated sedated HEENT: Pupils are round and equally reacting to light. EOMI. No scleral icterus. No conjunctival pallor. Normocephalic, atraumatic. No pharyngeal erythema. No thyromegaly. CARDIOVASCULAR: S1 and S2 present. No murmurs, rubs, or gallops. Tachycardic. PULMONARY: Coarse ronchorous lungs sounds, no wheezing noted. ABDOMEN: Soft, nontender, nondistended, normoactive bowel sounds. No palpable organomegaly. MUSCULOSKELETAL: No joint swelling or deformity. EXTREMITIES: No cyanosis, clubbing, or pedal edema. NEUROLOGICAL: Right-sided weakness presently sedated, 1/5 strength on the right side SKIN: No rashes. Assessment and Plan Assessment -Septic shock on pressor support at 0.41 mcg/kg/m of norepinephrine. Secondary to urinary tract infection patient has Proteus mirabilis in the urine which is pansensitive presently on Zosyn can be switched to Rocephin 1 g daily. Patient has bacteremia with Proteus species. Repeat cultures were obtained for today we'll repeat the cultures for tomorrow Acute ischemic infarct, left parietal lobe : Flaccid paralysis patient is on a ntiplatelet therapy with aspirin, since platelets are low neurology recommended only single platelet therapy at this time. Acute hypoxic respiratory failure presently intubated secondary to sepsis pat ient is on assist-control ventilation with 100% FiO2. Acute kidney injury secondary to acute tubular necrosis secondary to septic shock. Creatinine today 2.5 Toxicants of probably secondary to sepsis -Acute renal failure secondary to acute tumor necrosis from sepsis -elevated troponin secondary to septic shock Hypoglycemia Metabolic acidosis secondary to acute kidney injury, lactic acidosis Elevated transaminases, initially negative, possibly from sepsis, monitor trends, possibly of transplant resection is low at this time will discuss with the transplant team at [facility] patient need to be transferred to [facility]. Presently mycophenolate is being discontinued because of severe sepsis and the tachycardia was is being continued and the patient is also on IV steroids to avoid any transplant rejection. Patient will need higher level of care because of his transplant status will discuss with 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 History of hypertension currently hypotensive on pressor support History of gastroesophageal reflux disease BPH hyperlipidemia History of old stroke residual weakness on the right side. GI Prophylaxis DVT Prophylaxis subcutaneous heparin Full Code Objective - Vital Signs Vital signs: Vital Signs Temp 103.3 F H 08/25/22 10:30 Pulse 124 H 08/25/22 11:00 Resp 24 08/25/22 11:00 BP 105/51 08/25/22 11:00 Pulse Ox 100 08/25/22 11:00 FiO2 100 08/25/22 11:00 Intake & Output 08/24/22 08/25/22 08/25/22 18:59 06:59 18:59 Intake Total 2266.505 8483.412 103.920 Output Total 760 1210 200 Balance 820.528 510.412 -96.080 Weight 95 kg Intake: IV 1330 1330 Dextrose 5% in Water 1, 500 1300 000 ml @ 100 mls/hr IV . [id number] TAMARA with Sodium Bicarb (1 Meq/ml) 150 ml Rx#:[id number] Sodium Chloride 0.9% 1, 830 30 000 ml @ 130 mls/hr IV . Q7H42M TAMARA Rx#:[id number] Intake, IV Titration 250.528 390.412 103.920 Amount Norepinephrine 4 mg In 250.528 390.412 103.920 Sodium Chloride 0.9% 250 ml @ 0.03 MCG/KG/MIN 10. 369 mls/hr IV .Q24H TAMARA Rx#:[id number] Output: Urine 760 1210 200 Other: Voiding Method Indwelling Catheter Indwelling Catheter Indwelling Catheter # Voids 85 # Bowel Movements 1 1 ABP, PAP, CO, CI - Last Documented Arterial Blood Pressure 116/43 - Labs CBC & Chem 7: 08/25/22 04:17 08/25/22 04:17 Labs: Abnormal Lab Results - Last 24 Hours (Table) 08/24/22 08/24/22 08/24/22 Range/Units 13:52 17:00 20:31 Hgb (13.0-17.5) gm/dL MCHC (31.0-37.0) g/dL Plt Count (150-450) k/uL Lymphocytes # (1.0-4.8) k/uL Chloride (98-107) mmol/L Carbon Dioxide (22-30) mmol/L BUN (9-20) mg/dL Creatinine (0.66-1.25) mg/dL Plasma Lactic Acid Angelo 3.2 H* 3.7 H* 2.2 H* (0.7-2.0) mmol/L Calcium (8.4-10.2) mg/dL AST (17-59) U/L ALT (4-49) U/L Total Protein (6.3-8.2) g/dL Albumin (3.5-5.0) g/dL 08/24/22 08/25/22 08/25/22 Range/Units 23:48 04:17 04:17 Hgb 12.6 L (13.0-17.5) gm/dL MCHC 30.7 L (31.0-37.0) g/dL Plt Count 95 L (150-450) k/uL Lymphocytes # 0.4 L (1.0-4.8) k/uL Chloride 109 H (98-107) mmol/L Carbon Dioxide 21 L (22-30) mmol/L BUN 27 H (9-20) mg/dL Creatinine 2.78 H (0.66-1.25) mg/dL Plasma Lactic Acid Angelo 2.4 H* (0.7-2.0) mmol/L Calcium 7.4 L (8.4-10.2) mg/dL AST 284 H (17-59) U/L ALT 81 H (4-49) U/L Total Protein 5.1 L (6.3-8.2) g/dL Albumin 2.8 L (3.5-5.0) g/dL 08/25/22 Range/Units 04:17 Hgb (13.0-17.5) gm/dL MCHC (31.0-37.0) g/dL Plt Count (150-450) k/uL Lymphocytes # (1.0-4.8) k/uL Chloride (98-107) mmol/L Carbon Dioxide (22-30) mmol/L BUN (9-20) mg/dL Creatinine (0.66-1.25) mg/dL Plasma Lactic Acid Angelo 2.8 H* (0.7-2.0) mmol/L Calcium (8.4-10.2) mg/dL AST (17-59) U/L ALT (4-49) U/L Total Protein (6.3-8.2) g/dL Albumin (3.5-5.0) g/dL Microbiology - Last 24 Hours (Table) 08/23/22 09:15 Urine Culture - Final Urine,Voided Proteus mirabilis 08/23/22 19:48 Blood Culture Gram Stain - Preliminary Blood Blood Culture - Preliminary Proteus Species 08/23/22 19:48 Blood Culture - Final Blood
[2022-08-25] MEDS: FAMOTIDINE 20 MG TAB PO SCH (12:28)
[2022-08-25] MEDS: ASPIRIN 81 MG PO SCH (12:28)
--- NOTE | 2022-08-25 12:37 | P.PN ---
Subjective Progress Note Date: 08/25/22 Principal diagnosis: Secondary, impending respiratory failure. Sepsis. Pulmonary consult dated 08/24/2022. 76-year-old black male, with a previous history of liver transplant, at [facility], and CVA, with right-sided weakness, who apparently presented to the emergency department on August 22, complaining of profound weakness, nausea, and vomiting. The patient was admitted to the floor, and I was asked to transfer the patient to the intensive care unit, as the patient was thought to have sepsis, with hypotension. 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 He apparently was at [employer], shopping, and developed sudden onset of abdominal pain nausea and vomiting. He also complaining of weakness in his lower extremities. Seen in the emergency room, and admitted to the hospital. Currently, the patient's getting saline at 130 mL an hour, and norepinephrine at 0.04 mcg/kg/m. A blood gas done on 6 L shows a pO2 of 86, pCO2 27, and a pH is 7.36. This blood gases consistent with mild metabolic acidosis. His initial blood gas was consistent with non-anion gap metabolic acidosis. His lactate initially was 4.8. He's currently on Zosyn. A computed tomography scan of the brain showed an acute infarct of the left parietal lobe. He is being seen by neurology. White count 4.1, hemoglobin 14, hematocrit 46.5, and platelet count 95,000. Sodium 138, potassium 4.3, chlorides 113, CO2 15, anion gap 10, BUN 26, creatinine 2.53. Lactic acid is 2.2. AST is 267 and ALT is 68. Troponin was 0.491. Pro-calcitonin level is 30.4. UA is consistent with a possible urinary tract infection. Testing for coronavirus was negative. Chest x-ray, after central line placement, by me, showed no complication. Progress note dated 08/25/2022. 76-year-old black female seen yesterday in consultation. When I saw him today, his mental status had declined. He was on 4 L of oxygen. He was also receiving norepinephrine at 0.06 mcg/kg/m, and was on a sodium bicarbonate drip, with 3 ampules of sodium bicarbonate and D5W at 100 mL an hour. The patient's urine showed gram-negative bacilli in the blood was positive for Proteus mirabilis. He was on Zosyn. He was to go for a CAT scan of the brain. Unfortunately, I felt that his situation was too unstable to send him down for a CAT scan, so he was electively intubated with a #8 endotracheal tube, using a standard laryngoscope, and #3 Alpesh blade. In addition, a right radial art line was placed. I did speak to the neurologist. The patient's post intubation chest x- ray showed diffuse bilateral infiltrates. White count was 5, hemoglobin 12.6, hematocrit 41.1, and platelet count was 95,000. Sodium 140, potassium 3.9, chlorides 109, CO2 21, anion gap 10, BUN 27, and creatinine 2.78. The patient's AST was 284 in the ALT was 81. The rest of the labs were reviewed. Objective - Vital Signs Vital signs: Vital Signs Temp 103.3 F H 08/25/22 10:30 Pulse 124 H 08/25/22 11:00 Resp 24 08/25/22 12:00 BP 105/51 08/25/22 11:00 Pulse Ox 100 08/25/22 11:00 FiO2 100 08/25/22 12:00 Intake & Output 08/24/22 08/25/22 08/25/22 18:59 06:59 18:59 Intake Total 9211.193 5830.412 103.920 Output Total 760 1210 275 Balance 820.528 510.412 -171.080 Weight 95 kg Intake: IV 1330 1330 Dextrose 5% in Water 1, 500 1300 000 ml @ 100 mls/hr IV . [id number] TAMARA with Sodium Bicarb (1 Meq/ml) 150 ml Rx#:[id number] Sodium Chloride 0.9% 1, 830 30 000 ml @ 130 mls/hr IV . Q7H42M TAMARA Rx#:[id number] Intake, IV Titration 250.528 390.412 103.920 Amount Norepinephrine 4 mg In 250.528 390.412 103.920 Sodium Chloride 0.9% 250 ml @ 0.03 MCG/KG/MIN 10. 369 mls/hr IV .Q24H TAMARA Rx#:[id number] Output: Urine 760 1210 275 Other: Voiding Method Indwelling Catheter Indwelling Catheter Indwelling Catheter # Voids 85 # Bowel Movements 1 1 ABP, PAP, CO, CI - Last Documented Arterial Blood Pressure 116/43 - Exam Lethargic and somnolent, snoring respirations, on nasal O2 at 4 L. HEENT examination is grossly unremarkable. Neck supple. Full range of motion. No adenopathy thyromegaly or neck vein distention. Cardiovascular examination reveals regular rhythm rate. S1-S2 normal. No S3 or S4. No discernible murmur noted. Heart rate is 141 bpm. Lungs reveal coarse bilateral breath sounds. No wheezes. No crackles. Saturation is 95 %. Abdomen soft, with bowel sounds. No masses or tenderness. Well-healed scar from previous liver transplant noted. Extremities are intact. No cyanosis or clubbing. Trace edema. Chronic venous stasis changes noted. Skin is without rash or lesion. Neurologic examination is being evaluated by neurology. His mental status was much worse today. He was very poorly or unresponsive. This was a definite change. - Labs CBC & Chem 7: 08/25/22 04:17 08/25/22 04:17 Labs: Abnormal Lab Results - Last 24 Hours (Table) 08/24/22 08/24/22 08/24/22 Range/Units 13:52 17:00 20:31 Hgb (13.0-17.5) gm/dL MCHC (31.0-37.0) g/dL Plt Count (150-450) k/uL Lymphocytes # (1.0-4.8) k/uL Chloride (98-107) mmol/L Carbon Dioxide (22-30) mmol/L BUN (9-20) mg/dL Creatinine (0.66-1.25) mg/dL Plasma Lactic Acid Angelo 3.2 H* 3.7 H* 2.2 H* (0.7-2.0) mmol/L Calcium (8.4-10.2) mg/dL AST (17-59) U/L ALT (4-49) U/L Total Protein (6.3-8.2) g/dL Albumin (3.5-5.0) g/dL 08/24/22 08/25/22 08/25/22 Range/Units 23:48 04:17 04:17 Hgb 12.6 L (13.0-17.5) gm/dL MCHC 30.7 L (31.0-37.0) g/dL Plt Count 95 L (150-450) k/uL Lymphocytes # 0.4 L (1.0-4.8) k/uL Chloride 109 H (98-107) mmol/L Carbon Dioxide 21 L (22-30) mmol/L BUN 27 H (9-20) mg/dL Creatinine 2.78 H (0.66-1.25) mg/dL Plasma Lactic Acid Angelo 2.4 H* (0.7-2.0) mmol/L Calcium 7.4 L (8.4-10.2) mg/dL AST 284 H (17-59) U/L ALT 81 H (4-49) U/L Total Protein 5.1 L (6.3-8.2) g/dL Albumin 2.8 L (3.5-5.0) g/dL 08/25/22 Range/Units 04:17 Hgb (13.0-17.5) gm/dL MCHC (31.0-37.0) g/dL Plt Count (150-450) k/uL Lymphocytes # (1.0-4.8) k/uL Chloride (98-107) mmol/L Carbon Dioxide (22-30) mmol/L BUN (9-20) mg/dL Creatinine (0.66-1.25) mg/dL Plasma Lactic Acid Angelo 2.8 H* (0.7-2.0) mmol/L Calcium (8.4-10.2) mg/dL AST (17-59) U/L ALT (4-49) U/L Total Protein (6.3-8.2) g/dL Albumin (3.5-5.0) g/dL Microbiology - Last 24 Hours (Table) 08/23/22 09:15 Urine Culture - Final Urine,Voided Proteus mirabilis 08/23/22 19:48 Blood Culture Gram Stain - Preliminary Blood Blood Culture - Preliminary Proteus Species 08/23/22 19:48 Blood Culture - Final Blood Assessment and Plan Assessment: Hypotension, secondary to gram-negative sepsis, with Proteus mirabilis bacteremia and probable Proteus mirabilis urinary tract infection. Status post intubation and mechanical ventilation, 08/25/2022, as patient was unable to protect his airway. Acute ischemic infarct, left parietal lobe. History of liver transplantation, at the [facility]. Acute kidney injury. Lactic acidosis. History of hypertension. History of gastroesophageal reflux disease. History of BPH. History of hyperlipidemia. Plan: Plan dated 08/24/2022. The patient is currently being evaluated by neurology. Computed tomography scan of the brain suggests an acute infarct, involving the left parietal lobe. Apparently the patient and/or the patient's family would like the patient transferred to the [facility]. I'm not sure that we will be able to accomplish that. He is currently on 6 L of oxygen. He is on norepinephrine at 0.04 mcg/kg/m. Blood gases show a mild metabolic acidosis. He is currently on Zosyn. Cultures have been done. Labs, x-rays, and medications are reviewed. I placed a left subclavian triple-lumen catheter in the patient as he had limited IV access. Plan dated 08/25/2022. The patient was electively intubated and mechanically ventilated, so he could safely go down for another CAT scan. Because of the acute change of this mental status, we were concerned that the ischemic stroke worsened. The patient had a right radial art line in place. Yesterday, I placed a left subclavian triple- lumen catheter. The patient remains on a sodium bicarbonate drip, and norepinephrine, for supportive blood pressure. Oral medications were discontinued. The patient could be started on tube feeds. We will check a blood gas. Additional recommendations and suggestions are forthcoming. Time with Patient: Greater than 30
[2022-08-25 13:00] LABS: ABG Base Excess -3.2 mmol/L; ABG HCO3 22 mmol/L (21-25); ABG PCO2 40 mmHg (35-45); ABG PH 7.36 (7.35-7.45); ABG PO2 355 mmHg (83-108); ABG TCO2 24 mmol/L (19-24); Allen Test Performed? Yes
[2022-08-25 13:35] LABS: ABG PO2 43 mmHg (83-108)
--- NOTE | 2022-08-25 13:52 | CT ---
EXAMINATION TYPE: CT brain wo con CT DLP: 1147.4 mGycm, Automated exposure control for dose reduction was used. DATE OF EXAM: 08/25/2022 1:36 PM COMPARISON: CT brain 08/23/2022. CLINICAL INDICATION:Male, 76 years old with history of Decreasing LOC, TECHNIQUE: Brain: Multiple axial CT images of the brain were obtained without IV contrast. Coronal and sagittal reformats reviewed. FINDINGS: Brain: Extra-axial spaces: No abnormal extra-axial fluid collections. Ventricular system: Within normal limits Cerebral parenchyma: No acute intraparenchymal hemorrhage. Increased size of low-attenuation region w ith loss of alvarado-white matter differentiation in the medial left frontal/parietal lobe. The remaining alvarado-white junction is well differentiated. Scattered hypoattenuating areas are seen within the whit e matter. Cerebral volume loss. Cerebellum: Unremarkable. Mass effect: No evidence of midline shift. Intracranial vasculature: Atherosclerotic calcifications of the intracranial vessels. Soft tissues: Normal. Calvarium/osseous structures: No depressed skull fracture. Paranasal sinuses and mastoid air cells: Mild scattered paranasal sinus disease. Visualized orbits: Bilateral aphakia IMPRESSION: Increased size of low-attenuation region in the medial left frontal/parietal lobe consistent with myriam lving acute/subacute infarct compared to prior CT brain 08/23/2022. No evidence for hemorrhagic conve rsion.
--- NOTE | 2022-08-25 13:56 | P.PN ---
Subjective Progress Note Date: 08/25/22 Patient seen and examined. Significantly worsened status, he was electively intubated due to his worsening respiratory and need for imaging. He is on his way down for CAT scan of his brain as he still remains pressor support and is unable to go for MRI Objective - Vital Signs Vital signs: Vital Signs Temp 99.3 F 08/25/22 13:30 Pulse 99 08/25/22 13:30 Resp 20 08/25/22 13:30 BP 122/67 08/25/22 13:30 Pulse Ox 100 08/25/22 13:30 FiO2 70 08/25/22 13:36 Intake & Output 08/24/22 08/25/22 08/25/22 18:59 06:59 18:59 Intake Total 9450.121 9557.412 103.920 Output Total 760 1210 375 Balance 820.528 510.412 -271.080 Weight 95 kg Intake: IV 1330 1330 Dextrose 5% in Water 1, 500 1300 000 ml @ 100 mls/hr IV . [id number] TAMARA with Sodium Bicarb (1 Meq/ml) 150 ml Rx#:[id number] Sodium Chloride 0.9% 1, 830 30 000 ml @ 130 mls/hr IV . Q7H42M TAMARA Rx#:[id number] Intake, IV Titration 250.528 390.412 103.920 Amount Norepinephrine 4 mg In 250.528 390.412 103.920 Sodium Chloride 0.9% 250 ml @ 0.03 MCG/KG/MIN 10. 369 mls/hr IV .Q24H TAMARA Rx#:[id number] Output: Urine 760 1210 375 Other: Voiding Method Indwelling Catheter Indwelling Catheter Indwelling Catheter # Voids 85 # Bowel Movements 1 1 1 ABP, PAP, CO, CI - Last Documented Arterial Blood Pressure 119/49 - Exam Patient is intubated. Heart appears regular. Lungs with coarse breath sounds. Abdomen is soft. Extremity show no clubbing cyanosis or edema. Unable to assess cranial nerves. - Labs CBC & Chem 7: 08/25/22 04:17 08/25/22 04:17 Labs: Abnormal Lab Results - Last 24 Hours (Table) 08/24/22 08/24/22 08/24/22 Range/Units 13:52 17:00 20:31 Hgb (13.0-17.5) gm/dL MCHC (31.0-37.0) g/dL Plt Count (150-450) k/uL Lymphocytes # (1.0-4.8) k/uL ABG pH (7.35-7.45) ABG pCO2 (35-45) mmHg ABG pO2 (83-108) mmHg ABG O2 Saturation (94-97) % Chloride (98-107) mmol/L Carbon Dioxide (22-30) mmol/L BUN (9-20) mg/dL Creatinine (0.66-1.25) mg/dL Plasma Lactic Acid Angelo 3.2 H* 3.7 H* 2.2 H* (0.7-2.0) mmol/L Calcium (8.4-10.2) mg/dL AST (17-59) U/L ALT (4-49) U/L Total Protein (6.3-8.2) g/dL Albumin (3.5-5.0) g/dL 08/24/22 08/25/22 08/25/22 Range/Units 23:48 04:17 04:17 Hgb 12.6 L (13.0-17.5) gm/dL MCHC 30.7 L (31.0-37.0) g/dL Plt Count 95 L (150-450) k/uL Lymphocytes # 0.4 L (1.0-4.8) k/uL ABG pH (7.35-7.45) ABG pCO2 (35-45) mmHg ABG pO2 (83-108) mmHg ABG O2 Saturation (94-97) % Chloride 109 H (98-107) mmol/L Carbon Dioxide 21 L (22-30) mmol/L BUN 27 H (9-20) mg/dL Creatinine 2.78 H (0.66-1.25) mg/dL Plasma Lactic Acid Angelo 2.4 H* (0.7-2.0) mmol/L Calcium 7.4 L (8.4-10.2) mg/dL AST 284 H (17-59) U/L ALT 81 H (4-49) U/L Total Protein 5.1 L (6.3-8.2) g/dL Albumin 2.8 L (3.5-5.0) g/dL 08/25/22 08/25/22 08/25/22 Range/Units 04:17 08:43 12:59 Hgb (13.0-17.5) gm/dL MCHC (31.0-37.0) g/dL Plt Count (150-450) k/uL Lymphocytes # (1.0-4.8) k/uL ABG pH 7.49 H (7.35-7.45) ABG pCO2 30 L (35-45) mmHg ABG pO2 43 L* 355 H (83-108) mmHg ABG O2 Saturation 84.5 L 100.0 H (94-97) % Chloride (98-107) mmol/L Carbon Dioxide (22-30) mmol/L BUN (9-20) mg/dL Creatinine (0.66-1.25) mg/dL Plasma Lactic Acid Angelo 2.8 H* (0.7-2.0) mmol/L Calcium (8.4-10.2) mg/dL AST (17-59) U/L ALT (4-49) U/L Total Protein (6.3-8.2) g/dL Albumin (3.5-5.0) g/dL Microbiology - Last 24 Hours (Table) 08/23/22 09:15 Urine Culture - Final Urine,Voided Proteus mirabilis 08/23/22 19:48 Blood Culture Gram Stain - Preliminary Blood Blood Culture - Preliminary Proteus Species 08/23/22 19:48 Blood Culture - Final Blood Assessment and Plan Assessment: Bilateral carotid stenosis Large left CVA with right hemiparesis at this point Status post liver transplant 2 Plan: Patient with worsening clinical picture overall. At this time continue with current recommendations per medicine and neurology. No safe indications for intervention given the overall clinical picture. If patient shows significant improvement, would need CT angiogram of the neck versus MRA to evaluate the bilateral carotid arteries as there is just at 50% stenosis.
[2022-08-25] MEDS: IPRATROPIUM-ALBUTEROL 3 ML NEB INHALATION SCH ×3 (15:18→23:16)
--- NOTE | 2022-08-25 15:26 | CA ---
Transthoracic Echo Report Name: Dom Rene Age: 76 Gender: M : 1945 Exam Date: 08/24/2022 08:19 Exam Location: [facility] Ht (in): 69 Wt (lb): 200 Ordering Physician: Aisha Taylor Attending/Referring Phys: Brandon CARD Professional Housing Consultant Harriett Cota, LACHO Procedure CPT: Indications: acute stroke Cardiac Hx: Technical Quality: Poor Contrast 1: Total Dose (mL): Contrast 2: Total Dose (mL): MEASUREMENTS (Male / Female) Normal Values 2D ECHO LV Diastolic Diameter PLAX 3.1 cm 4.2 - 5.9 / 3.9 - 5.3 cm LV Systolic Diameter PLAX 2.1 cm IVS Diastolic Thickness 1.1 cm 0.6 - 1.0 / 0.6 - 0.9 cm LVPW Diastolic Thickness 1.1 cm 0.6 - 1.0 / 0.6 - 0.9 cm LV Relative Wall Thickness 0.7 RV Internal Dim ED PLAX 3.1 cm LA Systolic Diameter LX 3.0 cm 3.0 - 4.0 / 2.7 - 3.8 cm M-MODE Aortic Root Diameter MM 3.0 cm MV E Point Septal Separation 1.3 cm AV Cusp Separation MM 1.6 cm DOPPLER MV Area PHT 2.9 cm??? Mitral E Point Velocity 69.1 cm/s Mitral A Point Velocity 93.9 cm/s Mitral E to A Ratio 0.7 MV Deceleration Time 261.4 ms TR Peak Velocity 200.8 cm/s TR Peak Gradient 16.1 mmHg Right Ventricular Systolic Press 20.6 mmHg FINDINGS Left Ventricle Left ventricular ejection fraction is estimated at 55-60 %. Small left ventricular cavity. Borderline left ventricular hypertrophy. Right Ventricle Normal right ventricular size and function. Right ventricular systolic pressure within normal limits. Right Atrium Normal right atrial size. Left Atrium Normal left atrial size. Mitral Valve Mitral valve not well visualized. Aortic Valve Aortic valve not well visualized. Tricuspid Valve Mild tricuspid regurgitation. Pulmonic Valve Pulmonic valve not well visualized. Pericardium Normal pericardium. Aorta Normal size aortic root and proximal ascending aorta. CONCLUSIONS Likely normal LV size and systolic function Previewed by: Dr. Jameson Hoff MD (Electronically Signed) Final Date: 25 August 2022 15:25
[2022-08-25 17:58] LABS: Glucose,Whole Blood 180 mg/dL (70-110)
[2022-08-25 21:46] LABS: Glucose,Whole Blood 190 mg/dL (70-110)
[2022-08-25] MEDS: CHLORHEXIDINE GLUCONATE 15 ML CUP MUCOUS MEM SCH (22:56)
[2022-08-25] MEDS: NOREPINEPHRINE 32 MG in SODIUM CHLORIDE 0.9% 218 ML IV SCH (22:56)
[2022-08-25] MEDS: LATANOPROST 0.005% OPHTH DROPS 2.5 ML BTL BOTH EYES SCH (22:56)
--- NOTE | 2022-08-25 23:06 | OP ---
OPERATIVE REPORT PROCEDURE PERFORMED: Right radial arterial line. CO-SURGEON: Dr. Bennett. PREOPERATIVE DIAGNOSIS: Hypotension. POSTOPERATIVE DIAGNOSIS: Hypotension. DESCRIPTION OF PROCEDURE: A time-out was completed verifying correct patient, procedure, site, positioning, and implant(s) or special equipment if applicable. Jhoan's test was performed to ensure adequate perfusion. The patient's right wrist or right groin was prepped and draped in sterile fashion. 1% Lidocaine was used to anesthetize the area. An 18G Arrow arterial line was introduced into the right radial artery. The catheter was threaded over the guide wire and the needle was removed with appropriate pulsatile blood return. Blood loss was minimal. The catheter was then sutured in place to the skin and a sterile dressing applied. Perfusion to the extremity distal to the point of catheter insertion was checked and found to be adequate. There was no immediate complication. There was good blood return and waveform. The catheter was sutured in place. Sterile dressing applied by the nurse. There was no immediate complication. The patient tolerated the procedure well. MMODL / IJN: [id number] /
[2022-08-25 23:21] LABS: Calcium 6.8 mg/dL (8.4-10.2); Magnesium 2.1 mg/dL (1.6-2.3); Potassium 4.3 mmol/L (3.5-5.1)
[2022-08-26] MEDS: IPRATROPIUM-ALBUTEROL 3 ML NEB INHALATION SCH ×6 (03:53→23:11)
[2022-08-26 04:45] LABS: Basophils % (A) 0 %; Eosinophils % (A) 0 %; HCT 41.9 % (39.0-53.0); HGB 13.1 gm/dL (13.0-17.5); Hypochromasia Moderate; Lymphocytes # (A) 0.8 k/uL (1.0-4.8); Lymphocytes % (A) 6 %; MCH 27.3 pg (25.0-35.0); MCHC 31.2 g/dL (31.0-37.0); MCV 87.5 fL (80.0-100.0); Mean Platelet Volume 8.9; Monocytes # (A) 0.3 k/uL (0-1.0); Monocytes % (A) 2 %; Neutrophils # (A) 11.3 k/uL (1.3-7.7); Neutrophils % (A) 90 %; RBC 4.79 m/uL (4.30-5.90); RDW 14.1 % (11.5-15.5); WBC 12.6 k/uL (3.8-10.6)
[2022-08-26 04:54] LABS: Albumin 2.6 g/dL (3.5-5.0); Calcium 6.8 mg/dL (8.4-10.2); Potassium 4.4 mmol/L (3.5-5.1); Total Bilirubin 0.6 mg/dL (0.2-1.3); Total Protein 4.9 g/dL (6.3-8.2)
[2022-08-26 04:57] LABS: Platelet Count 93 k/uL (150-450)
[2022-08-26 06:21] LABS: ABG Base Excess -5.9 mmol/L; ABG Glucose Whole Blood 253 mg/dL (75-99); ABG HCO3 21 mmol/L (21-25); ABG Hematocrit 38 % (34.0-46.0); ABG Oxygen Saturation 98.7 % (94-97); ABG PCO2 43 mmHg (35-45); ABG PH 7.29 (7.35-7.45); ABG PO2 137 mmHg (83-108); ABG Potassium Whole Blood 4.3 mmol/L (3.4-4.5); ABG Sodium Whole Blood 146 mmol/L (135-146); ABG TCO2 22 mmol/L (19-24)
[2022-08-26 06:24] LABS: ABG Lactic Acid Whole Blood 2.4 mmol/L (0.5-1.6)
[2022-08-26 06:25] LABS: Allen Test Performed? No
--- NOTE | 2022-08-26 07:31 | OP ---
OPERATIVE REPORT PROCEDURE PERFORMED: Intubation. PREOPERATIVE DIAGNOSIS: Acute respiratory failure. POSTOPERATIVE DIAGNOSES: Acute respiratory failure, unstable airway. CONDENSER WINDER SURGEON: Dr. Bennett. DESCRIPTION OF PROCEDURE: A time-out was completed verifying correct patient, procedure, site, positioning, and implant(s) or special equipment if applicable. We used a standard laryngoscope with #3 [place] blade. The patient was positioned appropriately and a #8 endotracheal tube was placed under direct laryngoscopy. The tube was anchored at 22 cm at the teeth. Correct placement was confirmed by presence of bilateral breath sounds without air sounds in the abdomen on auscultation. An end- tidal CO2 monitor was also used to confirm tracheal placement of the ET tube. The patient received 2 mg of Ativan, 5 mg of morphine and 3 mL of 60 mg of succinylcholine for rapid sequence intubation. After the proper placement of the tube, and confirmation by bilateral breath sounds. A chest x-ray was ordered to assess for pneumothorax and verify endotracheal tube placement. The patient tolerated the procedure well and there were no complications. There was good bilateral breath sounds. Chest x-ray was ordered. There was no immediate complication. The patient is connected to the mechanical ventilator. MMODL / IJN: [id number] /
--- NOTE | 2022-08-26 08:16 | XR ---
EXAMINATION TYPE: XR chest 1V portable DATE OF EXAM: 08/26/2022 5:51 AM COMPARISON: Chest radiographs from 08/25/2022 TECHNIQUE: XR chest 1V portable Portable AP radiograph of the chest. CLINICAL INDICATION:Male, 76 years old with history of Tube placement; FINDINGS: Lungs/Pleura: Similar multifocal airspace opacities. No evidence of pneumothorax or pleural effusion. Pulmonary vascularity: Unremarkable. Heart/mediastinum: Cardiomediastinal silhouette is unremarkable. Musculoskeletal: No acute osseous pathology. Lines/Tubes: Endotracheal tube with distal tip 6.1 cm above the heevr Nasogastric tube with its distal tip and side-port projecting under the diaphragm. Left central venous catheter with distal tip at the cavoatrial junction. IMPRESSION: Endotracheal nasogastric tubes in appropriate position Scattered airspace opacities remain present predominantly in the lung bases.
[2022-08-26] MEDS ORDERED: SODIUM BICARB 8.4% 50 ML SYR (1 MEQ/ML) IV STA (09:19)
--- NOTE | 2022-08-26 09:24 | P.PN ---
Subjective Patient is seen in follow for acute kidney injury. Renal function fairly stable. Nonoliguric. Intubated. On Levophed. Receiving IV fluids. Vital signs are stable. On vasopressor support. General: Resting in bed. HEENT: Intubated. LUNGS: Breath sounds decreased. HEART: Regular rate and rhythm. ABDOMEN: Soft, no distention. EXTREMITITES: No edema. Chronic changes noted. Objective - Vital Signs Vital signs: Vital Signs Temp 97.6 F 08/26/22 08:00 Pulse 78 08/26/22 08:00 Resp 20 08/26/22 08:00 BP 127/65 08/26/22 08:00 Pulse Ox 100 08/26/22 08:00 FiO2 55 08/26/22 08:00 Intake & Output 08/25/22 08/26/22 08/26/22 18:59 06:59 18:59 Intake Total 0429.631 6432.825 221.304 Output Total 595 705 25 Balance 449.100 422.825 196.304 Weight 95 kg 99 kg Intake: Intake, IV Titration 8083.974 4749.825 221.304 Amount Dextrose 5%-0.9% NaCl 1, 600 825 75 000 ml @ 75 mls/hr IV . [id number] [facility] Rx#:[id number] Norepinephrine 32 mg In 106.404 Sodium Chloride 0.9% 218 ml @ 0.03 MCG/KG/MIN 1. 336 mls/hr IV .Q24H [facility] Rx#:[id number] Norepinephrine 4 mg In 444.100 Sodium Chloride 0.9% 250 ml @ 0.03 MCG/KG/MIN 10. 369 mls/hr IV .Q24H [facility] Rx#:[id number] Piperacillin-Tazobactam 3 100 .375 gm In Sodium Chloride 0.9% 100 ml @ 25 mls/hr IVPB Q8HR [facility] Rx# :[id number] propofoL 1,000 mg In 202.825 39.900 Empty Bag 1 bag @ 15 MCG/ KG/MIN 8.55 mls/hr IV . [id number] [facility] Rx#:[id number] Output: Urine 595 705 25 Other: Voiding Method Indwelling Catheter Indwelling Catheter Indwelling Catheter # Bowel Movements 1 ABP, PAP, CO, CI - Last Documented Arterial Blood Pressure 101/54 - Labs CBC & Chem 7: 08/26/22 04:11 08/26/22 03:56 Labs: Abnormal Lab Results - Last 24 Hours (Table) 08/25/22 08/25/22 08/25/22 Range/Units 08:43 12:59 17:55 WBC (3.8-10.6) k/uL Plt Count (150-450) k/uL Neutrophils # (1.3-7.7) k/uL Lymphocytes # (1.0-4.8) k/uL ABG pH 7.49 H (7.35-7.45) ABG pCO2 30 L (35-45) mmHg ABG pO2 43 L* 355 H (83-108) mmHg ABG O2 Saturation 84.5 L 100.0 H (94-97) % ABG Ionized Calcium (4.5-5.3) mg/dL ABG Glucose (75-99) mg/dL ABG Lactic Acid (0.5-1.6) mmol/L Hemoglobin (13.0-17.5) gm/dL Chloride (98-107) mmol/L Carbon Dioxide (22-30) mmol/L BUN (9-20) mg/dL Creatinine (0.66-1.25) mg/dL Glucose (74-99) mg/dL POC Glucose (mg/dL) 180 H (70-110) mg/dL Calcium (8.4-10.2) mg/dL AST (17-59) U/L ALT (4-49) U/L Total Protein (6.3-8.2) g/dL Albumin (3.5-5.0) g/dL Arterial Blood Glucose (75-99) mg/dL 08/25/22 08/25/22 08/26/22 Range/Units 21:37 22:25 03:56 WBC (3.8-10.6) k/uL Plt Count (150-450) k/uL Neutrophils # (1.3-7.7) k/uL Lymphocytes # (1.0-4.8) k/uL ABG pH (7.35-7.45) ABG pCO2 (35-45) mmHg ABG pO2 (83-108) mmHg ABG O2 Saturation (94-97) % ABG Ionized Calcium (4.5-5.3) mg/dL ABG Glucose (75-99) mg/dL ABG Lactic Acid (0.5-1.6) mmol/L Hemoglobin (13.0-17.5) gm/dL Chloride 111 H 110 H (98-107) mmol/L Carbon Dioxide 19 L 19 L (22-30) mmol/L BUN 29 H 31 H (9-20) mg/dL Creatinine 2.62 H 2.68 H (0.66-1.25) mg/dL Glucose 215 H 259 H (74-99) mg/dL POC Glucose (mg/dL) 190 H (70-110) mg/dL Calcium 6.8 L 6.8 L (8.4-10.2) mg/dL AST 147 H (17-59) U/L ALT 69 H (4-49) U/L Total Protein 4.9 L (6.3-8.2) g/dL Albumin 2.6 L (3.5-5.0) g/dL Arterial Blood Glucose (75-99) mg/dL 08/26/22 08/26/22 Range/Units 04:11 06:16 WBC 12.6 H (3.8-10.6) k/uL Plt Count 93 L (150-450) k/uL Neutrophils # 11.3 H (1.3-7.7) k/uL Lymphocytes # 0.8 L (1.0-4.8) k/uL ABG pH 7.29 L (7.35-7.45) ABG pCO2 (35-45) mmHg ABG pO2 137 H (83-108) mmHg ABG O2 Saturation 98.7 H (94-97) % ABG Ionized Calcium 4.0 L (4.5-5.3) mg/dL ABG Glucose 253 H (75-99) mg/dL ABG Lactic Acid 2.4 H* (0.5-1.6) mmol/L Hemoglobin 12.4 L (13.0-17.5) gm/dL Chloride (98-107) mmol/L Carbon Dioxide (22-30) mmol/L BUN (9-20) mg/dL Creatinine (0.66-1.25) mg/dL Glucose (74-99) mg/dL POC Glucose (mg/dL) (70-110) mg/dL Calcium (8.4-10.2) mg/dL AST (17-59) U/L ALT (4-49) U/L Total Protein (6.3-8.2) g/dL Albumin (3.5-5.0) g/dL Arterial Blood Glucose 253 H (75-99) mg/dL Microbiology - Last 24 Hours (Table) 08/25/22 13:30 Gram Stain - Preliminary Sputum Sputum Culture - Preliminary 08/25/22 12:27 Stool Culture - Preliminary Stool 08/23/22 09:15 Urine Culture - Final Urine,Voided Proteus mirabilis 08/23/22 19:48 Blood Culture Gram Stain - Preliminary Blood Blood Culture - Preliminary Proteus Species Assessment and Plan Plan: Assessment: 1. Acute kidney injury secondary to ATN secondary to septic shock and contrast- induced acute kidney injury. Patient received IV contrast on 08/23/2022. Creatinine was 1.74 on admission and peaked at 2.78 - 2.68 today. Nonoliguric. No hydronephrosis noted on CAT scan. 2. Chronic kidney disease stage IIIa with baseline creatinine in the range of 1.2-1.5 secondary to nephrosclerosis and long-term calcineurin inhibitor use. 3. 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 4. Metabolic acidosis secondary to acute kidney injury, lactic acidosis and IV fluids. Status post bicarb drip. 5. 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 Neurology following. 6. Septic shock secondary to Proteus UTI and bacteremia on antibiotics. On Levophed. Plan: Maintain normal saline. Wean FiO2 and vasopressors. Repeat 2 A of sodium bicarbonate IV push today. Hold CellCept due to septic shock. Patient has also not received Prograf since admission as unable to take oral meds - to be resumed today. Follow-up Prograf level. Maintain IV Solu-Medrol. Avoid nephrotoxins. Continue to monitor renal function and urine output. Possible transfer to [facility].
--- NOTE | 2022-08-26 09:28 | EEG ---
ELECTROENCEPHALOGRAM REPORT DATE OF SERVICE: 08/25/2022 CLINICAL HISTORY: This is a 76-year-old gentleman with altered mental status. The video EEG is obtained to evaluate for seizure epileptiform activity. RELEVANT MEDICATION: Ativan. EEG TYPE: A routine 21-channel EEG is performed with video using the 10/20 electrode placement system. DESCRIPTION: Patient is intubated on a ventilator. The background consists of low to moderate voltage of 6-7 hertz activity that is well modulated, well sustained. At times, the background consists of low voltage nonrhythmic diffuse delta activity. There is no physiological stage 2 sleep architecture. There is no focal slowing. At times, the background consists of diffuse suppression lasting 1-2 seconds likely due to medication effect (Ativan). There is excessive beta activity over bilateral hemisphere seen during the study. Interictal and ictal is none. ACTIVATION PROCEDURE: Photic stimulation and hyperventilation is not performed. CLINICAL INTERPRETATION: This is an abnormal routine EEG. The background slowing is suggestive of moderate encephalopathy. There is no focal slowing, epileptiform discharge or seizure on the EEG. The excessive beta activity and some diffuse suppression seen during the study is likely due to medication effect (Ativan). Clinical correlation is recommended. MMODL / IJN: [id number] / MTDD
[2022-08-26] MEDS: methylPREDNISolone SOD SUCCI 40 MG/ML 1 ML VIAL IV SCH (10:14)
[2022-08-26] MEDS: PIPERACILLIN-TAZOBACTAM 3.375 GM in SODIUM CHLORIDE 0.9% 100 ML IVPB SCH ×3 (10:14→23:34)
[2022-08-26] MEDS: CHLORHEXIDINE GLUCONATE 15 ML CUP MUCOUS MEM SCH ×2 (10:15→21:34)
[2022-08-26] MEDS: HEPARIN SODIUM,PORCINE/PF 5,000 UNIT/0.5 ML SYRINGE SQ SCH ×2 (10:16→21:34)
[2022-08-26] MEDS: VASOPRESSIN 20 UNIT in SODIUM CHLORIDE 0.9% 50 ML IV SCH ×3 (10:17→16:13)
[2022-08-26] MEDS: TACROLIMUS 0.5 MG CAP PO SCH ×3 (10:18→21:34)
[2022-08-26] MEDS: DEXTROSE 5%-0.9% NACL 1,000 ML IV SCH ×2 (10:20→21:36)
[2022-08-26 11:24] LABS: Glucose,Whole Blood 190 mg/dL (70-110)
--- NOTE | 2022-08-26 11:25 | P.PN ---
Subjective Progress Note Date: 08/26/22 Principal diagnosis: Secondary, impending respiratory failure. Sepsis. Pulmonary consult dated 08/24/2022. 76-year-old black male, with a previous history of liver transplant, at [facility], and CVA, with right-sided weakness, who apparently presented to the emergency department on August 22, complaining of profound weakness, nausea, and vomiting. The patient was admitted to the floor, and I was asked to transfer the patient to the intensive care unit, as the patient was thought to have sepsis, with hypotension. 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 He apparently was at [employer], shopping, and developed sudden onset of abdominal pain nausea and vomiting. He also complaining of weakness in his lower extremities. Seen in the emergency room, and admitted to the hospital. Currently, the patient's getting saline at 130 mL an hour, and norepinephrine at 0.04 mcg/kg/m. A blood gas done on 6 L shows a pO2 of 86, pCO2 27, and a pH is 7.36. This blood gases consistent with mild metabolic acidosis. His initial blood gas was consistent with non-anion gap metabolic acidosis. His lactate initially was 4.8. He's currently on Zosyn. A computed tomography scan of the brain showed an acute infarct of the left parietal lobe. He is being seen by neurology. White count 4.1, hemoglobin 14, hematocrit 46.5, and platelet count 95,000. Sodium 138, potassium 4.3, chlorides 113, CO2 15, anion gap 10, BUN 26, creatinine 2.53. Lactic acid is 2.2. AST is 267 and ALT is 68. Troponin was 0.491. Pro-calcitonin level is 30.4. UA is consistent with a possible urinary tract infection. Testing for coronavirus was negative. Chest x-ray, after central line placement, by me, showed no complication. Progress note dated 08/25/2022. 76-year-old black female seen yesterday in consultation. When I saw him today, his mental status had declined. He was on 4 L of oxygen. He was also receiving norepinephrine at 0.06 mcg/kg/m, and was on a sodium bicarbonate drip, with 3 ampules of sodium bicarbonate and D5W at 100 mL an hour. The patient's urine showed gram-negative bacilli in the blood was positive for Proteus mirabilis. He was on Zosyn. He was to go for a CAT scan of the brain. Unfortunately, I felt that his situation was too unstable to send him down for a CAT scan, so he was electively intubated with a #8 endotracheal tube, using a standard laryngoscope, and #3 Alpesh blade. In addition, a right radial art line was placed. I did speak to the neurologist. The patient's post intubation chest x- ray showed diffuse bilateral infiltrates. White count was 5, hemoglobin 12.6, hematocrit 41.1, and platelet count was 95,000. Sodium 140, potassium 3.9, chlorides 109, CO2 21, anion gap 10, BUN 27, and creatinine 2.78. The patient's AST was 284 in the ALT was 81. The rest of the labs were reviewed. Progress note dated 08/26/2022. 76-year-old black male seen in consultation 2 days ago. The patient was admitted with a diagnosis of mental status changes, and probable sepsis. Unfortunately, the patient was electively intubated, yesterday, August 25, and at the same time, had a right radial arterial line placed. Currently, he remains on the mechanical ventilator. He is on volume assist control, rate 20, tidal volume 450, FiO2 55%, apply. Blood gases show a PaO2 of 137, pCO2 43, and a pH of 7.29. The FiO2 can be reduced. The patient's getting norepinephrine at 16 mcg/m, propofol at 30 mcg/kg/m, and dextrose and saline, at 75 mL an hour. The patient is getting Zosyn, for Proteus mirabilis UTI and bacteremia. The chest x-ray shows an endotracheal tube which is a bit high in the trachea, and can be pushed down 1-1/2 cm. The repeat brain CT shows an evolving left frontal parietal ischemic stroke. No hemorrhagic conversion. White count 12.6, hemoglobin 13.1, hematocrit 41.9, platelet count 93,000. Sodium 142, potassium 4.4, chlorides 110, CO2 19, anion gap 13, BUN 31, creatinine 2.68. AST is 147 with an ALT of 69. Chest x-ray in addition shows some bilateral mostly basilar scattered opacities. Objective - Vital Signs Vital signs: Vital Signs Temp 97.6 F 08/26/22 08:00 Pulse 80 08/26/22 10:00 Resp 15 08/26/22 10:00 BP 127/65 08/26/22 10:00 Pulse Ox 100 08/26/22 10:00 FiO2 45 08/26/22 09:23 Intake & Output 08/25/22 08/26/22 08/26/22 18:59 06:59 18:59 Intake Total 6762.922 7151.825 393.290 Output Total 595 705 80 Balance 449.100 422.825 313.290 Weight 95 kg 99 kg 99.9 kg Intake: Intake, IV Titration 7136.180 8308.825 383.290 Amount Dextrose 5%-0.9% NaCl 1, 600 825 225 000 ml @ 75 mls/hr IV . [id number] [facility] Rx#:[id number] Norepinephrine 32 mg In 118.390 Sodium Chloride 0.9% 218 ml @ 0.03 MCG/KG/MIN 1. 336 mls/hr IV .Q24H [facility] Rx#:[id number] Norepinephrine 4 mg In 444.100 Sodium Chloride 0.9% 250 ml @ 0.03 MCG/KG/MIN 10. 369 mls/hr IV .Q24H [facility] Rx#:[id number] Piperacillin-Tazobactam 3 100 .375 gm In Sodium Chloride 0.9% 100 ml @ 25 mls/hr IVPB Q8HR [facility] Rx# :[id number] propofoL 1,000 mg In 202.825 39.900 Empty Bag 1 bag @ 15 MCG/ KG/MIN 8.55 mls/hr IV . [id number] [facility] Rx#:[id number] Tube Feeding 10 Output: Urine 595 705 80 Other: Voiding Method Indwelling Catheter Indwelling Catheter Indwelling Catheter # Bowel Movements 1 ABP, PAP, CO, CI - Last Documented Arterial Blood Pressure 108/56 - Exam Sedated, with an orally placed endotracheal tube and NG tube. HEENT examination is grossly unremarkable. Neck supple. Full range of motion. No adenopathy thyromegaly or neck vein distention. Cardiovascular examination reveals regular rhythm rate. S1-S2 normal. No S3 or S4. No discernible murmur noted. Heart rate is 80 bpm. Lungs reveal coarse bilateral breath sounds. No wheezes. No crackles. Saturation is 100%. Abdomen soft, without sounds. No masses or tenderness. Well-healed liver transplant scar. Extremities are intact. No cyanosis or clubbing. Trace edema. Chronic venous stasis changes noted. Skin is without rash or lesion. Neurologic examination cannot be adequately assessed as the patient's currently sedated - Labs CBC & Chem 7: 08/26/22 04:11 08/26/22 03:56 Labs: Abnormal Lab Results - Last 24 Hours (Table) 08/25/22 08/25/22 08/25/22 Range/Units 08:43 12:59 17:55 WBC (3.8-10.6) k/uL Plt Count (150-450) k/uL Neutrophils # (1.3-7.7) k/uL Lymphocytes # (1.0-4.8) k/uL ABG pH 7.49 H (7.35-7.45) ABG pCO2 30 L (35-45) mmHg ABG pO2 43 L* 355 H (83-108) mmHg ABG O2 Saturation 84.5 L 100.0 H (94-97) % ABG Ionized Calcium (4.5-5.3) mg/dL ABG Glucose (75-99) mg/dL ABG Lactic Acid (0.5-1.6) mmol/L Hemoglobin (13.0-17.5) gm/dL Chloride (98-107) mmol/L Carbon Dioxide (22-30) mmol/L BUN (9-20) mg/dL Creatinine (0.66-1.25) mg/dL Glucose (74-99) mg/dL POC Glucose (mg/dL) 180 H (70-110) mg/dL Calcium (8.4-10.2) mg/dL AST (17-59) U/L ALT (4-49) U/L Total Protein (6.3-8.2) g/dL Albumin (3.5-5.0) g/dL Arterial Blood Glucose (75-99) mg/dL 08/25/22 08/25/22 08/26/22 Range/Units 21:37 22:25 03:56 WBC (3.8-10.6) k/uL Plt Count (150-450) k/uL Neutrophils # (1.3-7.7) k/uL Lymphocytes # (1.0-4.8) k/uL ABG pH (7.35-7.45) ABG pCO2 (35-45) mmHg ABG pO2 (83-108) mmHg ABG O2 Saturation (94-97) % ABG Ionized Calcium (4.5-5.3) mg/dL ABG Glucose (75-99) mg/dL ABG Lactic Acid (0.5-1.6) mmol/L Hemoglobin (13.0-17.5) gm/dL Chloride 111 H 110 H (98-107) mmol/L Carbon Dioxide 19 L 19 L (22-30) mmol/L BUN 29 H 31 H (9-20) mg/dL Creatinine 2.62 H 2.68 H (0.66-1.25) mg/dL Glucose 215 H 259 H (74-99) mg/dL POC Glucose (mg/dL) 190 H (70-110) mg/dL Calcium 6.8 L 6.8 L (8.4-10.2) mg/dL AST 147 H (17-59) U/L ALT 69 H (4-49) U/L Total Protein 4.9 L (6.3-8.2) g/dL Albumin 2.6 L (3.5-5.0) g/dL Arterial Blood Glucose (75-99) mg/dL 08/26/22 08/26/22 Range/Units 04:11 06:16 WBC 12.6 H (3.8-10.6) k/uL Plt Count 93 L (150-450) k/uL Neutrophils # 11.3 H (1.3-7.7) k/uL Lymphocytes # 0.8 L (1.0-4.8) k/uL ABG pH 7.29 L (7.35-7.45) ABG pCO2 (35-45) mmHg ABG pO2 137 H (83-108) mmHg ABG O2 Saturation 98.7 H (94-97) % ABG Ionized Calcium 4.0 L (4.5-5.3) mg/dL ABG Glucose 253 H (75-99) mg/dL ABG Lactic Acid 2.4 H* (0.5-1.6) mmol/L Hemoglobin 12.4 L (13.0-17.5) gm/dL Chloride (98-107) mmol/L Carbon Dioxide (22-30) mmol/L BUN (9-20) mg/dL Creatinine (0.66-1.25) mg/dL Glucose (74-99) mg/dL POC Glucose (mg/dL) (70-110) mg/dL Calcium (8.4-10.2) mg/dL AST (17-59) U/L ALT (4-49) U/L Total Protein (6.3-8.2) g/dL Albumin (3.5-5.0) g/dL Arterial Blood Glucose 253 H (75-99) mg/dL Microbiology - Last 24 Hours (Table) 08/25/22 13:30 Gram Stain - Preliminary Sputum Sputum Culture - Preliminary 08/25/22 12:27 Stool Culture - Preliminary Stool 08/23/22 09:15 Urine Culture - Final Urine,Voided Proteus mirabilis 08/23/22 19:48 Blood Culture Gram Stain - Preliminary Blood Blood Culture - Preliminary Proteus Species Assessment and Plan Assessment: Hypotension, secondary to gram-negative sepsis, with Proteus mirabilis bacteremia and probable Proteus mirabilis urinary tract infection. Status post intubation and mechanical ventilation, 08/25/2022, as patient was unable to protect his airway. 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 History of liver transplantation, at the [facility]. Acute kidney injury. Lactic acidosis. History of hypertension. History of gastroesophageal reflux disease. History of BPH. History of hyperlipidemia. Plan: Plan dated 08/24/2022. The patient is currently being evaluated by neurology. Computed tomography scan of the brain suggests an acute infarct, involving the left parietal lobe. Apparently the patient and/or the patient's family would like the patient transferred to the [facility]. I'm not sure that we will be able to accomplish that. He is currently on 6 L of oxygen. He is on norepinephrine at 0.04 mcg/kg/m. Blood gases show a mild metabolic acidosis. He is currently on Zosyn. Cultures have been done. Labs, x-rays, and medications are reviewed. I placed a left subclavian triple-lumen catheter in the patient as he had limited IV access. Plan dated 08/25/2022. The patient was electively intubated and mechanically ventilated, so he could safely go down for another CAT scan. Because of the acute change of this mental status, we were concerned that the ischemic stroke worsened. The patient had a right radial art line in place. Yesterday, I placed a left subclavian triple- lumen catheter. The patient remains on a sodium bicarbonate drip, and norepinephrine, for supportive blood pressure. Oral medications were discontinued. The patient could be started on tube feeds. We will check a blood gas. Additional recommendations and suggestions are forthcoming. Plan dated 08/26/2022. The patient was intubated, for airway protection, yesterday, August 25. In addition, a right radial arterial line was placed. The patient went down for a computed tomography scan, and it showed that the left parietal frontal infarct, has extended. Currently, the patient's on Zosyn for Proteus mirabilis UTI and P roteus mirabilis bacteremia. The patient's on 16 mcg/m norepinephrine. He is not receiving tube feeds, but they will be started today. The patient is currently sedated with propofol. FiO2 can be reduced. Prognosis is very poor. We will continue to follow make recommendations where appropriate. I asked the nurse to find out from the family, whether or not they want him transferred. Initially, they wanted him transferred to the [facility]. Time with Patient: Greater than 30
[2022-08-26] MEDS: INSULIN ASPART (NovoLOG) 100 UNIT/ML VIAL SQ SCH ×3 (11:48→23:34)
--- NOTE | 2022-08-26 12:13 | P.PN ---
Subjective Progress Note Date: 08/26/22 She continues to be intubated on a ventilator and is on IV Propofol and per nurse was on 40mcg/kg/min but was decreased to 25mg/kg/min. Objective - Vital Signs Vital signs: Vital Signs Temp 97.6 F 08/26/22 08:00 Pulse 77 08/26/22 11:36 Resp 15 08/26/22 10:00 BP 127/65 08/26/22 10:00 Pulse Ox 100 08/26/22 10:00 FiO2 40 08/26/22 11:21 Intake & Output 08/25/22 08/26/22 08/26/22 18:59 06:59 18:59 Intake Total 9940.552 6771.825 639.702 Output Total 595 705 125 Balance 449.100 422.825 514.702 Weight 95 kg 99 kg 99.9 kg Intake: Intake, IV Titration 5691.224 6277.825 609.702 Amount Dextrose 5%-0.9% NaCl 1, 600 825 375 000 ml @ 75 mls/hr IV . [id number] [facility] Rx#:[id number] Norepinephrine 32 mg In 120.654 Sodium Chloride 0.9% 218 ml @ 0.03 MCG/KG/MIN 1. 336 mls/hr IV .Q24H [facility] Rx#:[id number] Norepinephrine 4 mg In 444.100 Sodium Chloride 0.9% 250 ml @ 0.03 MCG/KG/MIN 10. 369 mls/hr IV .Q24H [facility] Rx#:[id number] Piperacillin-Tazobactam 3 100 .375 gm In Sodium Chloride 0.9% 100 ml @ 25 mls/hr IVPB Q8HR [facility] Rx# :[id number] propofoL 1,000 mg In 202.825 114.048 Empty Bag 1 bag @ 15 MCG/ KG/MIN 8.55 mls/hr IV . [id number] [facility] Rx#:[id number] Tube Feeding 30 Output: Urine 595 705 125 Other: Voiding Method Indwelling Catheter Indwelling Catheter Indwelling Catheter # Bowel Movements 1 ABP, PAP, CO, CI - Last Documented Arterial Blood Pressure 108/56 - Exam GENERAL: The patient is lying in bed and is not in acute distress. RESPIRATORY: Intubated on Ventilator. NEUROLOGICAL: Limited because on IV Propofol 25mcg/kg/min (earlier was on 40mcg/kg/min). . Higher mental function: Patient is comatose. GCS 3 (E1, VT1, M1). Cranial nerves: I had to manually open his eyes. Primary gaze is midline. The pupils are round, pinpoint. Mild right lower facial weakness. Is breathing over the vent. Otherwise rest is limited. Motor: The strength is unable to assess. Cerebellum: Unable to assess. Sensation: Unable to assess. SOME OF THE WORK-UP DURING THIS HOSPITAL VISIT CONSISTED OF: Platelet is 93 and on initial presentation was 159. Urine culture is positive for gram-negative bacilli. Blood culture is positive for Proteus species Lipid panel is triglyceride 112, cholesterol 111, LDL is 61, HDL is 27. Ammonia level is less than [address] of the head is reported as cerebral atrophy. Old small cortical infarct in the left internal capsule. No acute abnormality. CT angiography of the head and neck is reported as angiogram is nondiagnostic since there is no vascular contrast. There is cerebral or cortical atrophy. No acute intercranial abnormality. No significant abnormality of the neck. Mild spondylitic changes in the cervical spine. Repeat CT of the head as reported as there is a 4 cm poorly marginated area of hypodensity in the left parietal lobe consistent with acute infarct and isn't changed compared to recent exam. No hemorrhage seen. Cerebral atrophy. Then later, reading radiologist has addendum and reports it is that acute infarct is a change compared to recent exam. I personally reviewed the CT of the head on the most recent CT that was done last and I felt the left parietal seemed acute. There is no intraparenchymal hemorrhage. And then I was compared it to initial CT head on presentation, I felt different in which, I did not notice any remarkable acute ischemic in left parietal on initial CT. Carotid duplex was reported as there is bilateral plaque formation. There is bilateral mild elevation of internal carotid artery velocity. There is antegrade flow in the vertebral arteries. The images and measurements suggest 50-70% stenosis in both internal carotid arteries. Repeat CT head on 08/25/2022 is reported as increased size of low attenuation region in the medial left frontal/parietal lobe consistent with evolving acute/subacute infarct compared to the prior CT brain on 08/23/2022. No evidence for hemorrhagic conversion. I personally reviewed the image and I do agree there is evolution of the stroke but I feel mostly it's over the left parietal stroke than frontal. Routine EEG on 08/25/2022: Is abnormal. The background slowing suggestive of moderate encephalopathy. There is no focal slowing, epileptiform discharge or seizure on the EEG. Excessive beta activity and some diffuse suppression seen during the study is likely due to medication effect (Ativan). 2D echo is reported as likely normal left ventricle size and systolic function. Normal left atrial size. - Labs CBC & Chem 7: 08/26/22 04:11 08/26/22 03:56 Labs: Abnormal Lab Results - Last 24 Hours (Table) 08/25/22 08/25/22 08/25/22 Range/Units 08:43 12:59 17:55 WBC (3.8-10.6) k/uL Plt Count (150-450) k/uL Neutrophils # (1.3-7.7) k/uL Lymphocytes # (1.0-4.8) k/uL ABG pH 7.49 H (7.35-7.45) ABG pCO2 30 L (35-45) mmHg ABG pO2 43 L* 355 H (83-108) mmHg ABG O2 Saturation 84.5 L 100.0 H (94-97) % ABG Ionized Calcium (4.5-5.3) mg/dL ABG Glucose (75-99) mg/dL ABG Lactic Acid (0.5-1.6) mmol/L Hemoglobin (13.0-17.5) gm/dL Chloride (98-107) mmol/L Carbon Dioxide (22-30) mmol/L BUN (9-20) mg/dL Creatinine (0.66-1.25) mg/dL Glucose (74-99) mg/dL POC Glucose (mg/dL) 180 H (70-110) mg/dL Calcium (8.4-10.2) mg/dL AST (17-59) U/L ALT (4-49) U/L Total Protein (6.3-8.2) g/dL Albumin (3.5-5.0) g/dL Arterial Blood Glucose (75-99) mg/dL 08/25/22 08/25/22 08/26/22 Range/Units 21:37 22:25 03:56 WBC (3.8-10.6) k/uL Plt Count (150-450) k/uL Neutrophils # (1.3-7.7) k/uL Lymphocytes # (1.0-4.8) k/uL ABG pH (7.35-7.45) ABG pCO2 (35-45) mmHg ABG pO2 (83-108) mmHg ABG O2 Saturation (94-97) % ABG Ionized Calcium (4.5-5.3) mg/dL ABG Glucose (75-99) mg/dL ABG Lactic Acid (0.5-1.6) mmol/L Hemoglobin (13.0-17.5) gm/dL Chloride 111 H 110 H (98-107) mmol/L Carbon Dioxide 19 L 19 L (22-30) mmol/L BUN 29 H 31 H (9-20) mg/dL Creatinine 2.62 H 2.68 H (0.66-1.25) mg/dL Glucose 215 H 259 H (74-99) mg/dL POC Glucose (mg/dL) 190 H (70-110) mg/dL Calcium 6.8 L 6.8 L (8.4-10.2) mg/dL AST 147 H (17-59) U/L ALT 69 H (4-49) U/L Total Protein 4.9 L (6.3-8.2) g/dL Albumin 2.6 L (3.5-5.0) g/dL Arterial Blood Glucose (75-99) mg/dL 08/26/22 08/26/22 08/26/22 Range/Units 04:11 06:16 11:23 WBC 12.6 H (3.8-10.6) k/uL Plt Count 93 L (150-450) k/uL Neutrophils # 11.3 H (1.3-7.7) k/uL Lymphocytes # 0.8 L (1.0-4.8) k/uL ABG pH 7.29 L (7.35-7.45) ABG pCO2 (35-45) mmHg ABG pO2 137 H (83-108) mmHg ABG O2 Saturation 98.7 H (94-97) % ABG Ionized Calcium 4.0 L (4.5-5.3) mg/dL ABG Glucose 253 H (75-99) mg/dL ABG Lactic Acid 2.4 H* (0.5-1.6) mmol/L Hemoglobin 12.4 L (13.0-17.5) gm/dL Chloride (98-107) mmol/L Carbon Dioxide (22-30) mmol/L BUN (9-20) mg/dL Creatinine (0.66-1.25) mg/dL Glucose (74-99) mg/dL POC Glucose (mg/dL) 190 H (70-110) mg/dL Calcium (8.4-10.2) mg/dL AST (17-59) U/L ALT (4-49) U/L Total Protein (6.3-8.2) g/dL Albumin (3.5-5.0) g/dL Arterial Blood Glucose 253 H (75-99) mg/dL Microbiology - Last 24 Hours (Table) 08/25/22 13:30 Gram Stain - Preliminary Sputum Sputum Culture - Preliminary 08/25/22 12:27 Stool Culture - Preliminary Stool 08/23/22 09:15 Urine Culture - Final Urine,Voided Proteus mirabilis 08/23/22 19:48 Blood Culture Gram Stain - Preliminary Blood Blood Culture - Preliminary Proteus Species Assessment and Plan Assessment: This is a 76-year-old gentleman who presented because of weakness over the right side and was worsening. Was felt his weakness started on 08/22/2022. * Acute ischemic stroke over left parietal (on CT) with presentation of worsening right sided weakness. On examination he has right sided hemiplegia, dysarthria, right facial weakness. No IV tpa since unknown last normal (but seems outside window). His CT shows evolution of his left parietal/frontal (but feel more parietal stroke). Etiology of stroke is cryptogenic but appears embolic. * Altered mental status seems due to multifactorial: Septic encephalopathy (UTI), blood culture is positive for proteus species, metabolic encephalopathy due to worsening kidney function, electrolyte disturbance and due to stroke * Status post intubation and mechanical ventilation on 08/25/2022 since the patient unable to protect his airway because of confusion * Carotid stenosis 50-70% bilateral ICA on carotid duplex but was felt just at 50% by vascular surgery team. * Sepsis (likely due to UTI and blood is positive for proteus species) * Acute on chronic kidney insufficiency--worsening * Elevated liver function with AST currently is 284 and ALT of 81. * History of old stroke with some weakness possible lower weakness but was able to ambulate * History of liver failure s/p transplant Plan: Cannot obtain MRI Brain since on ventilator but will not climate change analyst so cancelled MRI Brain. Currently the patient is on aspirin 81 mg daily (home meds) and once his platelets improves recommend dual antiplatelet of aspirin 81 and Plavix 75 mg daily. Continue Lipitor 40 mg daily at bedtime for secondary stroke prophylaxis Retail Bakery Manager vascular surgery team for the carotid stenosis and they felt carotid stenosis at 50%. They did not feel he was a surgical candidate at this time. I agree that patient condition is currently unstable for carotid surgical interve ntion. Once kidney functions improves recommend repeat CTA head and neck. PT, OT and INDUSTRIAL FABRIC CUTTER are consulted Continue neuro checks Avoid hypotensive episodes. I.D. team is consulted for his sepsis. On cardiac monitoring. We'll defer the rest of the medical management to the primary and ICU team For DVT prophylaxis the patient is on subcu heparin 5000 units every 12 hours Patient condition is critical and appears poor. The plan is discussed with his nurse and primary team. Time with Patient: Less than 30
--- NOTE | 2022-08-26 12:40 | P.PN ---
Subjective Progress Note Date: 08/26/22 76-year-old the male came in with the comments of generalized weakness and a nonspecific abdominal pain diffuse. Patient the overall clinical condition gotten worse patient became more septic patient is on immunosuppressive therapy with tacrolimus, mycophenolate. Patient was subsequently admitted to ICU. Patient neurological status also has worsened because of which the it was believed the patient has stroke. Patient does have chronic right-sided weakness with strength of 3/5 which is his baseline. Patient underwent multiple imaging studies including her CT angios the head and neck as well as a CT of the head which showed acute ischemic stroke over the left parietal lobe with worsening weakness on the right side. Patient continued to be on antiplatelet therapy. Patient urine cultures came back positive for Proteus mirabilis and patient blood cultures are now positive for Proteus species possible source of infection being urinary tract infection this Proteus species is pansensitive to multiple antibiotics patient is presently on Zosyn. Patient liver enzymes on admission were within normal limits patient is a liver transplant patient patient liver enzymes went up minimally to 284 and ALP of 81 this is probably secondary to sepsis and patient has acute tumor necrosis secondary to sepsis with worsening creatinine of around 2.8 baseline creatinine of around 1. Patient was encephal opathic EEG was ordered.. Today morning patient is found to be hypoxic any arterial blood gases after which patient was intubated patient is presently on 100% FiO2 assist control ventilation with PEEP of 5. Patient with the has troponin of 0.49 secondary to sepsis. 08/26/2022 Patient continues to be monitored closely in the intensive care unit. Continues to be intubated and on mechanical ventilator with FiO2 of 40% with oxygen saturation of 100%, fever is improving currently 97.6. Blood pressure 106/60 which he has been continued on vasopressor support. Continues on propofol for sedation. Current antibiotic coverage of IV zosyn for proteus miribilis UTI and bacteremia. Infectious disease following. Cellcept remains on hold. Patient was able to receive prograf through NG tube today. Case was discussed with liver transplant team yesterday. Patient did have repeat brain CT completed yesterday showing evolving stroke left parietal/left front. No evidence for hemorrhagic conversion. Neurology following. Patient will be started on nutritional feeds today. As of yesterday family was undecided about pursuing transfer to another facility. They would still like to pursue transfer to [facility]. Did speak with Dr. Espinoza at [facility] yesterday and CT imaging was sent over at request of physician to review. Awaiting status update from [facility] transfer team regarding decision to accept. Family is aware of pending status as of yesterday with no new updates yet today. Labs today showing a white count of 12.6, platelet count of 93, sodium 142, potassium 4.4, BUN 31, creatinine 2.68, blood glucose 200s. AST 147, ALT 69, alk phos 124. Review of systems: Unable to obtain as patient is intubated PHYSICAL EXAMINATION: GENERAL: This is a 76 year old male who appears stated age. Patient is intubated sedated HEENT: Pupils are round and equally reacting to light. EOMI. No scleral icterus. No conjunctival pallor. Normocephalic, atraumatic. No pharyngeal erythema. No thyromegaly. CARDIOVASCULAR: S1 and S2 present. No murmurs, rubs, or gallops. Tachycardic. PULMONARY: Coarse ronchorous lungs sounds, no wheezing noted. ABDOMEN: Soft, nontender, nondistended, normoactive bowel sounds. No palpable organomegaly. MUSCULOSKELETAL: No joint swelling or deformity. EXTREMITIES: No cyanosis, clubbing, or pedal edema. NEUROLOGICAL: Right-sided weakness on admission presently sedated and unable to assess SKIN: No rashes. Assessment and Plan Assessment -Septic shock on pressor support at 0.1 mcg/kg/m of norepinephrine. Secondary to urinary tract infection patient has Proteus mirabilis in the urine which is pansensitive presently on Zosyn can be switched to Rocephin 1 g daily. Patient has bacteremia with Proteus species. Repeat cultures were obtained and are curr ently pending. Acute ischemic infarct, left parietal lobe : Flaccid paralysis patient is on antiplatelet therapy with aspirin, since platelets are low neurology recommended only single platelet therapy at this time. Repeat CT scan shows evolving stroke without hemorrhagic conversion. Acute hypoxic respiratory failure now presently intubated secondary to sepsis/possible aspiration, unable to protect airway patient is on assist- control ventilation with 55% FiO2. Acute kidney injury secondary to acute tubular necrosis secondary to septic shock. Creatinine today 2.68 Toxicants of probably secondary to sepsis Acute renal failure secondary to acute tumor necrosis from sepsis elevated troponin secondary to septic shock Hypoglycemia Metabolic acidosis secondary to acute kidney injury, lactic acidosis Elevated transaminases, initially negative, possibly from sepsis, monitor trends, possibly of transplant resection is low at this time will discuss with the transplant team at [facility], family wishing to pursue transfer to [facility]. Presently mycophenolate is being discontinued because of severe sepsis and the tachycardia was is being continued and the patient is also on IV steroi ds to avoid any transplant rejection. Due to liver transplant status and per family request transfer to [facility] is being pursued and awaiting decision to accept. 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 History of hypertension currently hypotensive on pressor support which is currently being weaned Stage 2 sacral decub History of gastroesophageal reflux disease BPH Hyperlipidemia History of old stroke residual weakness on the right side. GI Prophylaxis DVT Prophylaxis subcutaneous heparin Full Code The impression and plan of care has been dictated by Aisha Taylor, Nurse Practitioner as directed. Dr. Harsha MD I have performed a history and physical examination and medical decision making of this patient, discussed the same with the dictator, and agree with the dictators assessment and plan as written, documented as a scribe. Based on total visit time, I have performed more than 50% of this visit. Objective - Vital Signs Vital signs: Vital Signs Temp 97.6 F 08/26/22 12:00 Pulse 80 08/26/22 12:00 Resp 20 08/26/22 12:00 BP 106/60 08/26/22 12:00 Pulse Ox 100 08/26/22 12:00 FiO2 55 08/26/22 12:00 Intake & Output 08/25/22 08/26/22 08/26/22 18:59 06:59 18:59 Intake Total 3602.922 3153.825 639.702 Output Total 595 705 125 Balance 449.100 422.825 514.702 Weight 95 kg 99 kg 99.9 kg Intake: Intake, IV Titration 5233.542 8042.825 609.702 Amount Dextrose 5%-0.9% NaCl 1, 600 825 375 000 ml @ 75 mls/hr IV . [id number] [facility] Rx#:[id number] Norepinephrine 32 mg In 120.654 Sodium Chloride 0.9% 218 ml @ 0.03 MCG/KG/MIN 1. 336 mls/hr IV .Q24H [facility] Rx#:[id number] Norepinephrine 4 mg In 444.100 Sodium Chloride 0.9% 250 ml @ 0.03 MCG/KG/MIN 10. 369 mls/hr IV .Q24H [facility] Rx#:[id number] Piperacillin-Tazobactam 3 100 .375 gm In Sodium Chloride 0.9% 100 ml @ 25 mls/hr IVPB Q8HR [facility] Rx# :[id number] propofoL 1,000 mg In 202.825 114.048 Empty Bag 1 bag @ 15 MCG/ KG/MIN 8.55 mls/hr IV . [id number] [facility] Rx#:[id number] Tube Feeding 30 Output: Urine 595 705 125 Other: Voiding Method Indwelling Catheter Indwelling Catheter Indwelling Catheter # Bowel Movements 1 ABP, PAP, CO, CI - Last Documented Arterial Blood Pressure 108/53 - Labs CBC & Chem 7: 08/26/22 04:11 08/26/22 03:56 Labs: Abnormal Lab Results - Last 24 Hours (Table) 08/25/22 08/25/22 08/25/22 Range/Units 08:43 12:59 17:55 WBC (3.8-10.6) k/uL Plt Count (150-450) k/uL Neutrophils # (1.3-7.7) k/uL Lymphocytes # (1.0-4.8) k/uL ABG pH 7.49 H (7.35-7.45) ABG pCO2 30 L (35-45) mmHg ABG pO2 43 L* 355 H (83-108) mmHg ABG O2 Saturation 84.5 L 100.0 H (94-97) % ABG Ionized Calcium (4.5-5.3) mg/dL ABG Glucose (75-99) mg/dL ABG Lactic Acid (0.5-1.6) mmol/L Hemoglobin (13.0-17.5) gm/dL Chloride (98-107) mmol/L Carbon Dioxide (22-30) mmol/L BUN (9-20) mg/dL Creatinine (0.66-1.25) mg/dL Glucose (74-99) mg/dL POC Glucose (mg/dL) 180 H (70-110) mg/dL Calcium (8.4-10.2) mg/dL AST (17-59) U/L ALT (4-49) U/L Total Protein (6.3-8.2) g/dL Albumin (3.5-5.0) g/dL Arterial Blood Glucose (75-99) mg/dL 08/25/22 08/25/22 08/26/22 Range/Units 21:37 22:25 03:56 WBC (3.8-10.6) k/uL Plt Count (150-450) k/uL Neutrophils # (1.3-7.7) k/uL Lymphocytes # (1.0-4.8) k/uL ABG pH (7.35-7.45) ABG pCO2 (35-45) mmHg ABG pO2 (83-108) mmHg ABG O2 Saturation (94-97) % ABG Ionized Calcium (4.5-5.3) mg/dL ABG Glucose (75-99) mg/dL ABG Lactic Acid (0.5-1.6) mmol/L Hemoglobin (13.0-17.5) gm/dL Chloride 111 H 110 H (98-107) mmol/L Carbon Dioxide 19 L 19 L (22-30) mmol/L BUN 29 H 31 H (9-20) mg/dL Creatinine 2.62 H 2.68 H (0.66-1.25) mg/dL Glucose 215 H 259 H (74-99) mg/dL POC Glucose (mg/dL) 190 H (70-110) mg/dL Calcium 6.8 L 6.8 L (8.4-10.2) mg/dL AST 147 H (17-59) U/L ALT 69 H (4-49) U/L Total Protein 4.9 L (6.3-8.2) g/dL Albumin 2.6 L (3.5-5.0) g/dL Arterial Blood Glucose (75-99) mg/dL 08/26/22 08/26/22 08/26/22 Range/Units 04:11 06:16 11:23 WBC 12.6 H (3.8-10.6) k/uL Plt Count 93 L (150-450) k/uL Neutrophils # 11.3 H (1.3-7.7) k/uL Lymphocytes # 0.8 L (1.0-4.8) k/uL ABG pH 7.29 L (7.35-7.45) ABG pCO2 (35-45) mmHg ABG pO2 137 H (83-108) mmHg ABG O2 Saturation 98.7 H (94-97) % ABG Ionized Calcium 4.0 L (4.5-5.3) mg/dL ABG Glucose 253 H (75-99) mg/dL ABG Lactic Acid 2.4 H* (0.5-1.6) mmol/L Hemoglobin 12.4 L (13.0-17.5) gm/dL Chloride (98-107) mmol/L Carbon Dioxide (22-30) mmol/L BUN (9-20) mg/dL Creatinine (0.66-1.25) mg/dL Glucose (74-99) mg/dL POC Glucose (mg/dL) 190 H (70-110) mg/dL Calcium (8.4-10.2) mg/dL AST (17-59) U/L ALT (4-49) U/L Total Protein (6.3-8.2) g/dL Albumin (3.5-5.0) g/dL Arterial Blood Glucose 253 H (75-99) mg/dL Microbiology - Last 24 Hours (Table) 08/25/22 13:30 Gram Stain - Preliminary Sputum Sputum Culture - Preliminary 08/25/22 12:27 Stool Culture - Preliminary Stool 08/23/22 09:15 Urine Culture - Final Urine,Voided Proteus mirabilis 08/23/22 19:48 Blood Culture Gram Stain - Preliminary Blood Blood Culture - Preliminary Proteus Species Assessment and Plan Time with Patient: Less than 30
[2022-08-26 18:07] LABS: Glucose,Whole Blood 207 mg/dL (70-110)
--- NOTE | 2022-08-26 20:58 | PCN ---
PROCEDURE NOTE PROCEDURE PERFORMED: Emergent intubation. PREOPERATIVE DIAGNOSES: Impending respiratory failure and hypoxemia. POSTOPERATIVE DIAGNOSES: Impending respiratory failure and hypoxemia. DESCRIPTION OF PROCEDURE: The patient had rapid sequence intubation using Ativan 2 mg, morphine 5 mg, and succinylcholine 3 mL or 60 mg. The patient was intubated with a standard laryngoscope using #3 Alpesh blade. We used a #8 endotracheal tube with a stylet. After the patient was sedated, the endotracheal tube was passed through the glottic opening into the trachea under direct visualization. The stylet was removed. The balloon on the endotracheal tube was inflated. There was good color change on the qualitative capnography device. There was good bilateral breath sounds. Tube was secured. The patient was connected to the ventilator. After intubation, the patient received 10 mg of Nimbex IV push. The patient tolerated the procedure well without any difficulty. A chest x-ray was ordered to confirm tube placement above the tracheal hever. [id number] / IJN: [id number] /
[2022-08-26] MEDS: NOREPINEPHRINE 32 MG in SODIUM CHLORIDE 0.9% 218 ML IV SCH (21:35)
[2022-08-26] MEDS: LATANOPROST 0.005% OPHTH DROPS 2.5 ML BTL BOTH EYES SCH (21:35)
[2022-08-26 23:31] LABS: Glucose,Whole Blood 227 mg/dL (70-110)
[2022-08-27 00:13] LABS: Glucose,Whole Blood 211 mg/dL (70-110)
[2022-08-27 01:55] LABS: Magnesium 2.2 mg/dL (1.6-2.3); Potassium 3.7 mmol/L (3.5-5.1)
[2022-08-27] MEDS ORDERED: POTASSIUM BICARBONATE/CIT AC 20 MEQ TABLET.EFF NG-TUBE SCH ×2 (03:00→06:30)
[2022-08-27] MEDS: IPRATROPIUM-ALBUTEROL 3 ML NEB INHALATION SCH ×6 (03:07→23:02)
[2022-08-27 05:16] LABS: HGB 10.5 gm/dL (13.0-17.5); Hypochromasia Moderate; MCH 26.8 pg (25.0-35.0); MCHC 30.8 g/dL (31.0-37.0); MCV 86.9 fL (80.0-100.0); Mean Platelet Volume 10.7; RBC 3.91 m/uL (4.30-5.90); RDW 14.6 % (11.5-15.5); WBC 4.6 k/uL (3.8-10.6)
[2022-08-27] MEDS: VASOPRESSIN 20 UNIT in SODIUM CHLORIDE 0.9% 50 ML IV SCH ×2 (05:31→16:12)
[2022-08-27 05:32] LABS: Platelet Count 49 k/uL (150-450)
[2022-08-27 05:36] LABS: Albumin 2.3 g/dL (3.5-5.0); Calcium 6.7 mg/dL (8.4-10.2); Magnesium 2.3 mg/dL (1.6-2.3); Potassium 3.9 mmol/L (3.5-5.1); Total Bilirubin 0.4 mg/dL (0.2-1.3); Total Protein 4.3 g/dL (6.3-8.2)
[2022-08-27 05:39] LABS: Glucose,Whole Blood 221 mg/dL (70-110)
[2022-08-27 05:42] LABS: ABG Base Excess -2.6 mmol/L; ABG HCO3 23 mmol/L (21-25); ABG Oxygen Saturation 99.8 % (94-97); ABG PCO2 44 mmHg (35-45); ABG PH 7.33 (7.35-7.45); ABG PO2 144 mmHg (83-108); ABG TCO2 25 mmol/L (19-24); Allen Test Performed? Yes
[2022-08-27] MEDS: INSULIN ASPART (NovoLOG) 100 UNIT/ML VIAL SQ SCH ×4 (05:56→23:44)
[2022-08-27 08:08] LABS: Partial Thromboplastin Time 29.4 sec (22.0-30.0); Prothrombin Time 11.2 sec (9.0-12.0)
[2022-08-27] MEDS: PIPERACILLIN-TAZOBACTAM 3.375 GM in SODIUM CHLORIDE 0.9% 100 ML IVPB SCH ×3 (08:22→23:50)
[2022-08-27] MEDS: methylPREDNISolone SOD SUCCI 40 MG/ML 1 ML VIAL IV SCH (08:22)
[2022-08-27] MEDS: CHLORHEXIDINE GLUCONATE 15 ML CUP MUCOUS MEM SCH ×2 (08:22→20:07)
[2022-08-27] MEDS: TACROLIMUS 0.5 MG CAP PO SCH ×2 (08:23→20:07)
--- NOTE | 2022-08-27 09:15 | XR ---
EXAMINATION TYPE: XR chest 1V portable DATE OF EXAM: 08/27/2022 COMPARISON: 08/26/2022 INDICATION: Tube placement TECHNIQUE: Single frontal view of the chest is obtained. FINDINGS: The heart size is normal. The pulmonary vasculature is prominent. Left lower lobe infiltrate appears to be present. The endotracheal tube tip history 0.3 cm above the hever. Nasogastric tube transverses the thorax. L eft-sided central venous catheter is present with the tip in the distal superior vena cava region. IMPRESSION: 1. Left lower lobe infiltrate. 2. Lines and catheters discussed above
[2022-08-27] MEDS ORDERED: FUROSEMIDE 10 MG/ML 4 ML VIAL IV STA (09:30)
--- NOTE | 2022-08-27 09:37 | P.PN ---
Subjective Progress Note Date: 08/25/22 Principal diagnosis: Bacteremia Patient is a 76-year-old -[place] male past medical history significant for liver failure status post liver transplant or redness of his medication presented to hospital generalized weakness did have a positive UA concerning for UTI patient subsequently did have a positive blood culture. On today's evaluation that is 08/25/2022, the patient did spike a fever this morning of 104F patient did went into respiratory distress and diabetic i ntubated no significant secretion at the time of intubation per the nursing staff no vomiting or diarrhea has been reported Objective - Vital Signs Vital signs: Vital Signs Temp 99.3 F 08/25/22 13:30 Pulse 99 08/25/22 13:30 Resp 20 08/25/22 13:30 BP 122/67 08/25/22 13:30 Pulse Ox 100 08/25/22 13:30 FiO2 70 08/25/22 13:36 Intake & Output 08/24/22 08/25/22 08/25/22 18:59 06:59 18:59 Intake Total 2813.673 6158.412 103.920 Output Total 760 1210 375 Balance 820.528 510.412 -271.080 Weight 95 kg 95 kg Intake: IV 1330 1330 Dextrose 5% in Water 1, 500 1300 000 ml @ 100 mls/hr IV . [id number] TAMARA with Sodium Bicarb (1 Meq/ml) 150 ml Rx#:[id number] Sodium Chloride 0.9% 1, 830 30 000 ml @ 130 mls/hr IV . [id number] TAMARA Rx#:[id number] Intake, IV Titration 250.528 390.412 103.920 Amount Norepinephrine 4 mg In 250.528 390.412 103.920 Sodium Chloride 0.9% 250 ml @ 0.03 MCG/KG/MIN 10. 369 mls/hr IV .Q24H TAMARA Rx#:[id number] Output: Urine 760 1210 375 Other: Voiding Method Indwelling Catheter Indwelling Catheter Indwelling Catheter # Voids 85 # Bowel Movements 1 1 1 ABP, PAP, CO, CI - Last Documented Arterial Blood Pressure 119/49 - Exam GENERAL DESCRIPTION: An elderly male intubated on the vent RESPIRATORY SYSTEM: Unlabored breathing , decreased breath sounds at bases HEART: S1 S2 regular rate and rhythm , ABDOMEN: Soft , no tenderness EXTREMITIES: No edema feet - Labs CBC & Chem 7: 08/27/22 04:55 08/27/22 04:55 Labs: Abnormal Lab Results - Last 24 Hours (Table) 08/24/22 08/24/22 08/24/22 Range/Units 13:52 17:00 20:31 Hgb (13.0-17.5) gm/dL MCHC (31.0-37.0) g/dL Plt Count (150-450) k/uL Lymphocytes # (1.0-4.8) k/uL ABG pH (7.35-7.45) ABG pCO2 (35-45) mmHg ABG pO2 (83-108) mmHg ABG O2 Saturation (94-97) % Chloride (98-107) mmol/L Carbon Dioxide (22-30) mmol/L BUN (9-20) mg/dL Creatinine (0.66-1.25) mg/dL Plasma Lactic Acid Angelo 3.2 H* 3.7 H* 2.2 H* (0.7-2.0) mmol/L Calcium (8.4-10.2) mg/dL AST (17-59) U/L ALT (4-49) U/L Total Protein (6.3-8.2) g/dL Albumin (3.5-5.0) g/dL 08/24/22 08/25/22 08/25/22 Range/Units 23:48 04:17 04:17 Hgb 12.6 L (13.0-17.5) gm/dL MCHC 30.7 L (31.0-37.0) g/dL Plt Count 95 L (150-450) k/uL Lymphocytes # 0.4 L (1.0-4.8) k/uL ABG pH (7.35-7.45) ABG pCO2 (35-45) mmHg ABG pO2 (83-108) mmHg ABG O2 Saturation (94-97) % Chloride 109 H (98-107) mmol/L Carbon Dioxide 21 L (22-30) mmol/L BUN 27 H (9-20) mg/dL Creatinine 2.78 H (0.66-1.25) mg/dL Plasma Lactic Acid Angelo 2.4 H* (0.7-2.0) mmol/L Calcium 7.4 L (8.4-10.2) mg/dL AST 284 H (17-59) U/L ALT 81 H (4-49) U/L Total Protein 5.1 L (6.3-8.2) g/dL Albumin 2.8 L (3.5-5.0) g/dL 08/25/22 08/25/22 08/25/22 Range/Units 04:17 08:43 12:59 Hgb (13.0-17.5) gm/dL MCHC (31.0-37.0) g/dL Plt Count (150-450) k/uL Lymphocytes # (1.0-4.8) k/uL ABG pH 7.49 H (7.35-7.45) ABG pCO2 30 L (35-45) mmHg ABG pO2 43 L* 355 H (83-108) mmHg ABG O2 Saturation 84.5 L 100.0 H (94-97) % Chloride (98-107) mmol/L Carbon Dioxide (22-30) mmol/L BUN (9-20) mg/dL Creatinine (0.66-1.25) mg/dL Plasma Lactic Acid Angelo 2.8 H* (0.7-2.0) mmol/L Calcium (8.4-10.2) mg/dL AST (17-59) U/L ALT (4-49) U/L Total Protein (6.3-8.2) g/dL Albumin (3.5-5.0) g/dL Microbiology - Last 24 Hours (Table) 08/23/22 09:15 Urine Culture - Final Urine,Voided Proteus mirabilis 08/23/22 19:48 Blood Culture Gram Stain - Preliminary Blood Blood Culture - Preliminary Proteus Species 08/23/22 19:48 Blood Culture - Final Blood Assessment and Plan (1) Sepsis Current Visit: No Status: Acute Code(s): A41.9 - SEPSIS, UNSPECIFIED ORGANISM SNOMED Code(s): 92088955 (2) UTI (urinary tract infection) Current Visit: No Status: Acute Code(s): N39.0 - URINARY TRACT INFECTION, SITE NOT SPECIFIED SNOMED Code(s): 71190215 Plan: 1patient presented to hospital with abdominal pain and nausea and vomiting in this patient did have a positive UA CT abdominal pelvis did not show any acute abnormality abdominal soft medical examination patient did have a positive UA concerning for symptomatic urinary tract infection likely from enteric gram- negative pathogen, patient subsequently did have slight worsening of his respiratory status and concern for possible aspiration pneumonitis. 2 sputum culture has been requested and will be followed 3blood cultures with Proteus which is a sensitive pathogen 4patient to continue with the Zosyn while waiting for the sputum culture to be finalize Time with Patient: Less than 30
--- NOTE | 2022-08-27 09:39 | P.PN ---
Subjective Progress Note Date: 08/26/22 Principal diagnosis: Bacteremia Patient is a 76-year-old -[place] male past medical history significant for liver failure status post liver transplant or redness of his medication presented to hospital generalized weakness did have a positive UA concerning for UTI patient subsequently did have a positive blood culture. On today's evaluation that is 08/26/2022, the patient is afebrile today, the patient is hemodynamically stable not requiring any pressors support per the nursing staff, the patient FiO2 is down to 40% low significant purulent secretions through the ET or diarrhea reported by the nursing staff Objective - Vital Signs Vital signs: Vital Signs Temp 97.6 F 08/26/22 12:00 Pulse 80 08/26/22 12:00 Resp 20 08/26/22 12:00 BP 106/60 08/26/22 12:00 Pulse Ox 100 08/26/22 12:00 FiO2 55 08/26/22 12:00 Intake & Output 08/25/22 08/26/22 08/26/22 18:59 06:59 18:59 Intake Total 0425.374 0959.825 639.702 Output Total 595 705 125 Balance 449.100 422.825 514.702 Weight 95 kg 99 kg 99.9 kg Intake: Intake, IV Titration 7567.565 9692.825 609.702 Amount Dextrose 5%-0.9% NaCl 1, 600 825 375 000 ml @ 75 mls/hr IV . [id number] TAMARA Rx#:[id number] Norepinephrine 32 mg In 120.654 Sodium Chloride 0.9% 218 ml @ 0.03 MCG/KG/MIN 1. 336 mls/hr IV .Q24H TAMARA Rx#:[id number] Norepinephrine 4 mg In 444.100 Sodium Chloride 0.9% 250 ml @ 0.03 MCG/KG/MIN 10. 369 mls/hr IV .Q24H TAMARA Rx#:[id number] Piperacillin-Tazobactam 3 100 .375 gm In Sodium Chloride 0.9% 100 ml @ 25 mls/hr IVPB Q8HR TAMARA Rx# :[id number] propofoL 1,000 mg In 202.825 114.048 Empty Bag 1 bag @ 15 MCG/ KG/MIN 8.55 mls/hr IV . [id number] TAMARA Rx#:[id number] Tube Feeding 30 Output: Urine 595 705 125 Other: Voiding Method Indwelling Catheter Indwelling Catheter Indwelling Catheter # Bowel Movements 1 ABP, PAP, CO, CI - Last Documented Arterial Blood Pressure 108/53 - Exam GENERAL DESCRIPTION: An elderly male intubated on the vent RESPIRATORY SYSTEM: Unlabored breathing , decreased breath sounds at bases HEART: S1 S2 regular rate and rhythm , ABDOMEN: Soft , no tenderness EXTREMITIES: No edema feet - Labs CBC & Chem 7: 08/27/22 04:55 08/27/22 04:55 Labs: Abnormal Lab Results - Last 24 Hours (Table) 08/25/22 08/25/22 08/25/22 Range/Units 08:43 12:59 17:55 WBC (3.8-10.6) k/uL Plt Count (150-450) k/uL Neutrophils # (1.3-7.7) k/uL Lymphocytes # (1.0-4.8) k/uL ABG pH 7.49 H (7.35-7.45) ABG pCO2 30 L (35-45) mmHg ABG pO2 43 L* 355 H (83-108) mmHg ABG O2 Saturation 84.5 L 100.0 H (94-97) % ABG Ionized Calcium (4.5-5.3) mg/dL ABG Glucose (75-99) mg/dL ABG Lactic Acid (0.5-1.6) mmol/L Hemoglobin (13.0-17.5) gm/dL Chloride (98-107) mmol/L Carbon Dioxide (22-30) mmol/L BUN (9-20) mg/dL Creatinine (0.66-1.25) mg/dL Glucose (74-99) mg/dL POC Glucose (mg/dL) 180 H (70-110) mg/dL Calcium (8.4-10.2) mg/dL AST (17-59) U/L ALT (4-49) U/L Total Protein (6.3-8.2) g/dL Albumin (3.5-5.0) g/dL Arterial Blood Glucose (75-99) mg/dL 08/25/22 08/25/22 08/26/22 Range/Units 21:37 22:25 03:56 WBC (3.8-10.6) k/uL Plt Count (150-450) k/uL Neutrophils # (1.3-7.7) k/uL Lymphocytes # (1.0-4.8) k/uL ABG pH (7.35-7.45) ABG pCO2 (35-45) mmHg ABG pO2 (83-108) mmHg ABG O2 Saturation (94-97) % ABG Ionized Calcium (4.5-5.3) mg/dL ABG Glucose (75-99) mg/dL ABG Lactic Acid (0.5-1.6) mmol/L Hemoglobin (13.0-17.5) gm/dL Chloride 111 H 110 H (98-107) mmol/L Carbon Dioxide 19 L 19 L (22-30) mmol/L BUN 29 H 31 H (9-20) mg/dL Creatinine 2.62 H 2.68 H (0.66-1.25) mg/dL Glucose 215 H 259 H (74-99) mg/dL POC Glucose (mg/dL) 190 H (70-110) mg/dL Calcium 6.8 L 6.8 L (8.4-10.2) mg/dL AST 147 H (17-59) U/L ALT 69 H (4-49) U/L Total Protein 4.9 L (6.3-8.2) g/dL Albumin 2.6 L (3.5-5.0) g/dL Arterial Blood Glucose (75-99) mg/dL 08/26/22 08/26/22 08/26/22 Range/Units 04:11 06:16 11:23 WBC 12.6 H (3.8-10.6) k/uL Plt Count 93 L (150-450) k/uL Neutrophils # 11.3 H (1.3-7.7) k/uL Lymphocytes # 0.8 L (1.0-4.8) k/uL ABG pH 7.29 L (7.35-7.45) ABG pCO2 (35-45) mmHg ABG pO2 137 H (83-108) mmHg ABG O2 Saturation 98.7 H (94-97) % ABG Ionized Calcium 4.0 L (4.5-5.3) mg/dL ABG Glucose 253 H (75-99) mg/dL ABG Lactic Acid 2.4 H* (0.5-1.6) mmol/L Hemoglobin 12.4 L (13.0-17.5) gm/dL Chloride (98-107) mmol/L Carbon Dioxide (22-30) mmol/L BUN (9-20) mg/dL Creatinine (0.66-1.25) mg/dL Glucose (74-99) mg/dL POC Glucose (mg/dL) 190 H (70-110) mg/dL Calcium (8.4-10.2) mg/dL AST (17-59) U/L ALT (4-49) U/L Total Protein (6.3-8.2) g/dL Albumin (3.5-5.0) g/dL Arterial Blood Glucose 253 H (75-99) mg/dL Microbiology - Last 24 Hours (Table) 08/25/22 10:25 Blood Culture - Preliminary Blood No Growth after 24 hours 08/25/22 13:30 Gram Stain - Preliminary Sputum Sputum Culture - Preliminary 08/25/22 12:27 Stool Culture - Preliminary Stool 08/23/22 09:15 Urine Culture - Final Urine,Voided Proteus mirabilis Assessment and Plan (1) Bacteremia Current Visit: Yes Status: Acute Code(s): R78.81 - BACTEREMIA SNOMED Code(s): 7616116 (2) UTI (urinary tract infection) Current Visit: No Status: Acute Code(s): N39.0 - URINARY TRACT INFECTION, SITE NOT SPECIFIED SNOMED Code(s): 42529500 Plan: 1patient presented to hospital with abdominal pain and nausea and vomiting in this patient did have a positive UA CT abdominal pelvis did not show any acute abnormality abdominal soft medical examination patient did have a positive UA concerning for symptomatic urinary tract infection likely from enteric gram- negative pathogen, patient subsequently did have slight worsening of his respiratory status and concern for possible aspiration pneumonitis. 2 sputum culture has been requested and results are currently pending 3blood cultures with Proteus which is a sensitive pathogen 4patient seemed to have some clinical improvement and will continue with the Zosyn while waiting for the sputum culture to be finalize Time with Patient: Less than 30
[2022-08-27] MEDS: DEXTROSE 5%-0.9% NACL 1,000 ML IV SCH (09:40)
--- NOTE | 2022-08-27 10:16 | P.PN ---
Subjective Progress Note Date: 08/27/22 76-year-old the male came in with the comments of generalized weakness and a nonspecific abdominal pain diffuse. Patient the overall clinical condition gotten worse patient became more septic patient is on immunosuppressive therapy with tacrolimus, mycophenolate. Patient was subsequently admitted to ICU. Patient neurological status also has worsened because of which the it was believed the patient has stroke. Patient does have chronic right-sided weakness with strength of 3/5 which is his baseline. Patient underwent multiple imaging studies including her CT angios the head and neck as well as a CT of the head which showed acute ischemic stroke over the left parietal lobe with worsening weakness on the right side. Patient continued to be on antiplatelet therapy. Patient urine cultures came back positive for Proteus mirabilis and patient blood cultures are now positive for Proteus species possible source of infection being urinary tract infection this Proteus species is pansensitive to multiple antibiotics patient is presently on Zosyn. Patient liver enzymes on admission were within normal limits patient is a liver transplant patient patient liver enzymes went up minimally to 284 and ALP of 81 this is probably secondary to sepsis and patient has acute tumor necrosis secondary to sepsis with worsening creatinine of around 2.8 baseline creatinine of around 1. Patient was encephal opathic EEG was ordered.. Today morning patient is found to be hypoxic any arterial blood gases after which patient was intubated patient is presently on 100% FiO2 assist control ventilation with PEEP of 5. Patient with the has troponin of 0.49 secondary to sepsis. 08/26/2022 Patient continues to be monitored closely in the intensive care unit. Continues to be intubated and on mechanical ventilator with FiO2 of 40% with oxygen saturation of 100%, fever is improving currently 97.6. Blood pressure 106/60 which he has been continued on vasopressor support. Continues on propofol for sedation. Current antibiotic coverage of IV zosyn for proteus miribilis UTI and bacteremia. Infectious disease following. Cellcept remains on hold. Patient was able to receive prograf through NG tube today. Case was discussed with liver transplant team yesterday. Patient did have repeat brain CT completed yesterday showing evolving stroke left parietal/left front. No evidence for hemorrhagic conversion. Neurology following. Patient will be started on nutritional feeds today. As of yesterday family was undecided about pursuing transfer to another facility. They would still like to pursue transfer to [facility]. Did speak with Dr. Espinoza at [facility] yesterday and CT imaging was sent over at request of physician to review. Awaiting status update from [facility] transfer team regarding decision to accept. Family is aware of pending status as of yesterday with no new updates yet today. Labs today showing a white count of 12.6, platelet count of 93, sodium 142, potassium 4.4, BUN 31, creatinine 2.68, blood glucose 200s. AST 147, ALT 69, alk phos 124. 08/27/2022 Patient evaluated today in intensive care unit currently intubated on mechanical ventilator with FiO2 of 40%. He has remained afebrile. Currently maintaining blood pressures 130/60s off of pressor support. He continues to be sedated with propofol. Today he is responsive to painful stimulation of the right hand with minimal eye opening however continues to be drowsy, and from a neurological standpoint overall prognosis is poor. Plan today is to wean sedation and repeat brain CT if no neurological improvement. He is also continued on IV zosyn for proteus UTI and bacteremia. Repeat blood cultures are currently pending at this time, sputum culture is also pending. Continues on D5 normal saline at 75 mls per hour and urine output is about 675 mls in the last 24 hours. Labs today are showing sodium level of 145, potassium 3.9, BUN 42, creatinine 2.56, blood glucose in the 200s, calcium 6.7, magnesium 2.3, liver enzymes are continuing to improve AST 66, ALT 50, alk phos 82. Remains on tacrolimus and IV solumedrol. Platelet count has continued to drop currently now 49, hgb of 10.5, white count 4.6. Fibrinogen, PT/INR, pTT within normal limits. Hematology consultation requested for further investigation and will recommend to hold off on heparin subcutaneous for now. Noted that patient was on single antiplatelet therapy for acute evolving ischemic infarct and aspirin is currently being held as well now. Chest xray today showing Left lower lobe infiltrate. For now [facility] transfer pending this was done for family request. have not heard back if physician has accepted. Review of systems: Unable to obtain as patient is intubated PHYSICAL EXAMINATION: GENERAL: This is a 76 year old male who appears stated age. Patient is intubated sedated HEENT: Pupils are round and equally reacting to light. EOMI. No scleral icterus. No conjunctival pallor. Normocephalic, atraumatic. No pharyngeal erythema. No thyromegaly. CARDIOVASCULAR: S1 and S2 present. No murmurs, rubs, or gallops. Tachycardic. PULMONARY: Coarse ronchorous lungs sounds, no wheezing noted. ABDOMEN: Soft, nontender, nondistended, normoactive bowel sounds. No palpable organomegaly. MUSCULOSKELETAL: No joint swelling or deformity. EXTREMITIES: No cyanosis, clubbing, or pedal edema. NEUROLOGICAL: Right-sided weakness 3/5 on admission which had progressed to right sided hemiplegia presently sedated and unable to assess SKIN: No rashes. Assessment and Plan Assessment -Septic shock secondary to urinary tract infection patient has Proteus mirabilis urinary tract infection and also bacteremia with Proteus species. Repeat cultures were obtained and are currently pending. Continues on IV zosyn and infectious disease is following patient closely. Acute ischemic infarct, left parietal lobe : Flaccid paralysis patient is not currently on antiplatelet therapy secondary to significant decrease in platlelet count currently 49 today and for this reason hematology was consulted for further investigation. No signs of acute bleed at this time. Repeat CT scan shows evolving stroke without hemorrhagic conversion. Acute hypoxic respiratory failure now presently intubated secondary to sepsis/possible aspiration, unable to protect airway patient is on assist- control ventilation with 40% FiO2. Acute kidney injury secondary to acute tubular necrosis secondary to septic shock. Creatinine today 2.56 Toxicants of probably secondary to sepsis Acute renal failure secondary to acute tumor necrosis from sepsis elevated troponin secondary to septic shock Hypoglycemia resolved on D5 normal saline Metabolic acidosis secondary to acute kidney injury, lactic acidosis, improving Elevated transaminases, initially negative, possibly from sepsis, monitor trends, possibly of transplant rejection is low at this time will discuss with the transplant team at [facility], family wishing to pursue transfer to [facility]. Presently mycophenolate is being discontinued because of severe sepsis and the tacrolimus was is being continued and the patient is also on IV steroids to avoid any transplant rejection. Due to liver transplant status and per family request transfer to [facility] is being pursued and awaiting decision to accept. Transaminases are trending down. 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 History of hypertension currently maintaining blood pressure has been weaned off levophed. Stage 2 sacral decub History of gastroesophageal reflux disease BPH Hyperlipidemia History of old stroke residual weakness on the right side. GI Prophylaxis DVT Prophylaxis subcutaneous heparin Full Code The impression and plan of care has been dictated by Aisha Taylor, Nurse Practitioner as directed. Dr. Harsha MD I have performed a history and physical examination and medical decision making of this patient, discussed the same with the dictator, and agree with the dictators assessment and plan as written, documented as a scribe. Based on total visit time, I have performed more than 50% of this visit. Objective - Vital Signs Vital signs: Vital Signs Temp 97.8 F 08/27/22 08:00 Pulse 90 08/27/22 09:00 Resp 18 08/27/22 09:00 BP 133/69 08/27/22 09:00 Pulse Ox 99 08/27/22 09:00 FiO2 40 08/27/22 08:00 Intake & Output 08/26/22 08/27/22 08/27/22 18:59 06:59 18:59 Intake Total 6206.628 9372.651 157.825 Output Total 225 355 65 Balance 127.098 5816.651 92.825 Weight 99.9 kg 101.5 kg Intake: IV 33 9 Pressure bag 33 9 Intake, IV Titration 3047.634 0872.651 118.825 Amount Dextrose 5%-0.9% NaCl 1, 825 900 75 000 ml @ 75 mls/hr IV . [id number] TAMARA Rx#:[id number] Norepinephrine 32 mg In 121.768 46.081 1.930 Sodium Chloride 0.9% 218 ml @ 0.03 MCG/KG/MIN 1. 336 mls/hr IV .Q24H TAMARA Rx#:[id number] Piperacillin-Tazobactam 3 100 .375 gm In Sodium Chloride 0.9% 100 ml @ 25 mls/hr IVPB Q8HR TAMARA Rx# :[id number] propofoL 1,000 mg In 139.900 176.570 41.895 Empty Bag 1 bag @ 15 MCG/ KG/MIN 8.55 mls/hr IV . [id number] TAMARA Rx#:[id number] Tube Feeding 30 290 30 Other 400 Output: Urine 225 355 65 Other: Voiding Method Indwelling Catheter Indwelling Catheter Indwelling Catheter ABP, PAP, CO, CI - Last Documented Arterial Blood Pressure 140/61 - Labs CBC & Chem 7: 08/27/22 04:55 08/27/22 04:55 Labs: Abnormal Lab Results - Last 24 Hours (Table) 08/25/22 08/26/22 08/26/22 Range/Units 04:17 11:23 18:05 RBC (4.30-5.90) m/uL Hgb (13.0-17.5) gm/dL Hct (39.0-53.0) % MCHC (31.0-37.0) g/dL Plt Count (150-450) k/uL ABG pH (7.35-7.45) ABG pO2 (83-108) mmHg ABG Total CO2 (19-24) mmol/L ABG O2 Saturation (94-97) % Chloride (98-107) mmol/L BUN (9-20) mg/dL Creatinine (0.66-1.25) mg/dL Glucose (74-99) mg/dL POC Glucose (mg/dL) 190 H 207 H (70-110) mg/dL Calcium (8.4-10.2) mg/dL AST (17-59) U/L ALT (4-49) U/L Total Protein (6.3-8.2) g/dL Albumin (3.5-5.0) g/dL Tacrolimus <1.5 L (5.0-20.0) ng/mL 08/26/22 08/27/22 08/27/22 Range/Units 23:30 00:11 04:55 RBC 3.91 L (4.30-5.90) m/uL Hgb 10.5 L (13.0-17.5) gm/dL Hct 34.0 L (39.0-53.0) % MCHC 30.8 L (31.0-37.0) g/dL Plt Count 49 L (150-450) k/uL ABG pH (7.35-7.45) ABG pO2 (83-108) mmHg ABG Total CO2 (19-24) mmol/L ABG O2 Saturation (94-97) % Chloride (98-107) mmol/L BUN (9-20) mg/dL Creatinine (0.66-1.25) mg/dL Glucose (74-99) mg/dL POC Glucose (mg/dL) 227 H 211 H (70-110) mg/dL Calcium (8.4-10.2) mg/dL AST (17-59) U/L ALT (4-49) U/L Total Protein (6.3-8.2) g/dL Albumin (3.5-5.0) g/dL Tacrolimus (5.0-20.0) ng/mL 08/27/22 08/27/22 08/27/22 Range/Units 04:55 05:34 05:36 RBC (4.30-5.90) m/uL Hgb (13.0-17.5) gm/dL Hct (39.0-53.0) % MCHC (31.0-37.0) g/dL Plt Count (150-450) k/uL ABG pH 7.33 L (7.35-7.45) ABG pO2 144 H (83-108) mmHg ABG Total CO2 25 H (19-24) mmol/L ABG O2 Saturation 99.8 H (94-97) % Chloride 115 H (98-107) mmol/L BUN 42 H (9-20) mg/dL Creatinine 2.56 H (0.66-1.25) mg/dL Glucose 193 H (74-99) mg/dL POC Glucose (mg/dL) 221 H (70-110) mg/dL Calcium 6.7 L (8.4-10.2) mg/dL AST 66 H (17-59) U/L ALT 50 H (4-49) U/L Total Protein 4.3 L (6.3-8.2) g/dL Albumin 2.3 L (3.5-5.0) g/dL Tacrolimus (5.0-20.0) ng/mL Microbiology - Last 24 Hours (Table) 08/26/22 04:11 Blood Culture - Preliminary Blood No Growth after 24 hours 08/25/22 10:25 Blood Culture - Preliminary Blood No Growth after 24 hours Assessment and Plan Time with Patient: Less than 30
--- NOTE | 2022-08-27 10:20 | P.PN ---
Subjective Patient is seen for follow-up for acute kidney injury. Patient is currently on the vent. Levo fed has been off. Receiving IV fluids at 75 mL an hour. Urine output has been on the lower side at 15 30 mL an hour. Systolic blood pressure around 1 50 mmHg. Objective - Vital Signs Vital signs: Vital Signs Temp 97.8 F 08/27/22 08:00 Pulse 90 08/27/22 09:00 Resp 18 08/27/22 09:00 BP 133/69 08/27/22 09:00 Pulse Ox 99 08/27/22 09:00 FiO2 40 08/27/22 08:00 Intake & Output 08/26/22 08/27/22 08/27/22 18:59 06:59 18:59 Intake Total 5460.390 4906.651 160.825 Output Total 225 355 215 Balance 887.242 0430.651 -54.175 Weight 99.9 kg 101.5 kg Intake: IV 33 12 Pressure bag 33 12 Intake, IV Titration 1380.127 4086.651 118.825 Amount Dextrose 5%-0.9% NaCl 1, 825 900 75 000 ml @ 75 mls/hr IV . [id number] [facility] Rx#:[id number] Norepinephrine 32 mg In 121.768 46.081 1.930 Sodium Chloride 0.9% 218 ml @ 0.03 MCG/KG/MIN 1. 336 mls/hr IV .Q24H [facility] Rx#:[id number] Piperacillin-Tazobactam 3 100 .375 gm In Sodium Chloride 0.9% 100 ml @ 25 mls/hr IVPB Q8HR [facility] Rx# :[id number] propofoL 1,000 mg In 139.900 176.570 41.895 Empty Bag 1 bag @ 15 MCG/ KG/MIN 8.55 mls/hr IV . [id number] [facility] Rx#:[id number] Tube Feeding 30 290 30 Other 400 Output: Urine 225 355 215 Other: Voiding Method Indwelling Catheter Indwelling Catheter Indwelling Catheter ABP, PAP, CO, CI - Last Documented Arterial Blood Pressure 140/61 - Exam Patient is sedated. On the ventilator Bilateral breath sounds are heard Abdomen is soft Examination lower extremities shows edema 1+ bilaterally and edema in the upper extremities as well - Labs CBC & Chem 7: 08/27/22 04:55 08/27/22 04:55 Labs: Abnormal Lab Results - Last 24 Hours (Table) 08/25/22 08/26/22 08/26/22 Range/Units 04:17 11:23 18:05 RBC (4.30-5.90) m/uL Hgb (13.0-17.5) gm/dL Hct (39.0-53.0) % MCHC (31.0-37.0) g/dL Plt Count (150-450) k/uL ABG pH (7.35-7.45) ABG pO2 (83-108) mmHg ABG Total CO2 (19-24) mmol/L ABG O2 Saturation (94-97) % Chloride (98-107) mmol/L BUN (9-20) mg/dL Creatinine (0.66-1.25) mg/dL Glucose (74-99) mg/dL POC Glucose (mg/dL) 190 H 207 H (70-110) mg/dL Calcium (8.4-10.2) mg/dL AST (17-59) U/L ALT (4-49) U/L Total Protein (6.3-8.2) g/dL Albumin (3.5-5.0) g/dL Tacrolimus <1.5 L (5.0-20.0) ng/mL 08/26/22 08/27/22 08/27/22 Range/Units 23:30 00:11 04:55 RBC 3.91 L (4.30-5.90) m/uL Hgb 10.5 L (13.0-17.5) gm/dL Hct 34.0 L (39.0-53.0) % MCHC 30.8 L (31.0-37.0) g/dL Plt Count 49 L (150-450) k/uL ABG pH (7.35-7.45) ABG pO2 (83-108) mmHg ABG Total CO2 (19-24) mmol/L ABG O2 Saturation (94-97) % Chloride (98-107) mmol/L BUN (9-20) mg/dL Creatinine (0.66-1.25) mg/dL Glucose (74-99) mg/dL POC Glucose (mg/dL) 227 H 211 H (70-110) mg/dL Calcium (8.4-10.2) mg/dL AST (17-59) U/L ALT (4-49) U/L Total Protein (6.3-8.2) g/dL Albumin (3.5-5.0) g/dL Tacrolimus (5.0-20.0) ng/mL 08/27/22 08/27/22 08/27/22 Range/Units 04:55 05:34 05:36 RBC (4.30-5.90) m/uL Hgb (13.0-17.5) gm/dL Hct (39.0-53.0) % MCHC (31.0-37.0) g/dL Plt Count (150-450) k/uL ABG pH 7.33 L (7.35-7.45) ABG pO2 144 H (83-108) mmHg ABG Total CO2 25 H (19-24) mmol/L ABG O2 Saturation 99.8 H (94-97) % Chloride 115 H (98-107) mmol/L BUN 42 H (9-20) mg/dL Creatinine 2.56 H (0.66-1.25) mg/dL Glucose 193 H (74-99) mg/dL POC Glucose (mg/dL) 221 H (70-110) mg/dL Calcium 6.7 L (8.4-10.2) mg/dL AST 66 H (17-59) U/L ALT 50 H (4-49) U/L Total Protein 4.3 L (6.3-8.2) g/dL Albumin 2.3 L (3.5-5.0) g/dL Tacrolimus (5.0-20.0) ng/mL Microbiology - Last 24 Hours (Table) 08/26/22 04:11 Blood Culture - Preliminary Blood No Growth after 24 hours 08/25/22 10:25 Blood Culture - Preliminary Blood No Growth after 24 hours Assessment and Plan Assessment: 1. Acute kidney injury secondary to ATN secondary to septic shock and contrast- induced acute kidney injury. Patient received IV contrast on 08/23/2022. Creatinine was 1.74 on admission and peaked at 2.78 - 2.68 today. Nonoliguric. No hydronephrosis noted on CAT scan. 2. Chronic kidney disease stage IIIa with baseline creatinine in the range of 1.2-1.5 secondary to nephrosclerosis and long-term calcineurin inhibitor use. 3. 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 4. Metabolic acidosis secondary to acute kidney injury, lactic acidosis and IV fluids. Status post bicarb drip. 5. 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 Neurology following. 6. Septic shock secondary to Proteus UTI and bacteremia on antibiotics. Status post pressors. Plan: IV Lasix 1 Continue with IV fluids for now Avoid nephrotoxic agents Continue with Prograf, it was just restarted. Level was less than 1.5 on 08/25/2022.
--- NOTE | 2022-08-27 11:57 | P.PN ---
Subjective Progress Note Date: 08/27/22 Principal diagnosis: Secondary, impending respiratory failure. Sepsis. Pulmonary consult dated 08/24/2022. 76-year-old black male, with a previous history of liver transplant, at [facility], and CVA, with right-sided weakness, who apparently presented to the emergency department on August 22, complaining of profound weakness, nausea, and vomiting. The patient was admitted to the floor, and I was asked to transfer the patient to the intensive care unit, as the patient was thought to have sepsis, with hypotension. 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 He apparently was at [employer], shopping, and developed sudden onset of abdominal pain nausea and vomiting. He also complaining of weakness in his lower extremities. Seen in the emergency room, and admitted to the hospital. Currently, the patient's getting saline at 130 mL an hour, and norepinephrine at 0.04 mcg/kg/m. A blood gas done on 6 L shows a pO2 of 86, pCO2 27, and a pH is 7.36. This blood gases consistent with mild metabolic acidosis. His initial blood gas was consistent with non-anion gap metabolic acidosis. His lactate initially was 4.8. He's currently on Zosyn. A computed tomography scan of the brain showed an acute infarct of the left parietal lobe. He is being seen by neurology. White count 4.1, hemoglobin 14, hematocrit 46.5, and platelet count 95,000. Sodium 138, potassium 4.3, chlorides 113, CO2 15, anion gap 10, BUN 26, creatinine 2.53. Lactic acid is 2.2. AST is 267 and ALT is 68. Troponin was 0.491. Pro-calcitonin level is 30.4. UA is consistent with a possible urinary tract infection. Testing for coronavirus was negative. Chest x-ray, after central line placement, by me, showed no complication. Progress note dated 08/25/2022. 76-year-old black female seen yesterday in consultation. When I saw him today, his mental status had declined. He was on 4 L of oxygen. He was also receiving norepinephrine at 0.06 mcg/kg/m, and was on a sodium bicarbonate drip, with 3 ampules of sodium bicarbonate and D5W at 100 mL an hour. The patient's urine showed gram-negative bacilli in the blood was positive for Proteus mirabilis. He was on Zosyn. He was to go for a CAT scan of the brain. Unfortunately, I felt that his situation was too unstable to send him down for a CAT scan, so he was electively intubated with a #8 endotracheal tube, using a standard laryngoscope, and #3 Alpesh blade. In addition, a right radial art line was placed. I did speak to the neurologist. The patient's post intubation chest x- ray showed diffuse bilateral infiltrates. White count was 5, hemoglobin 12.6, hematocrit 41.1, and platelet count was 95,000. Sodium 140, potassium 3.9, chlorides 109, CO2 21, anion gap 10, BUN 27, and creatinine 2.78. The patient's AST was 284 in the ALT was 81. The rest of the labs were reviewed. Progress note dated 08/26/2022. 76-year-old black male seen in consultation 2 days ago. The patient was admitted with a diagnosis of mental status changes, and probable sepsis. Unfortunately, the patient was electively intubated, yesterday, August 25, and at the same time, had a right radial arterial line placed. Currently, he remains on the mechanical ventilator. He is on volume assist control, rate 20, tidal volume 450, FiO2 55%, apply. Blood gases show a PaO2 of 137, pCO2 43, and a pH of 7.29. The FiO2 can be reduced. The patient's getting norepinephrine at 16 mcg/m, propofol at 30 mcg/kg/m, and dextrose and saline, at 75 mL an hour. The patient is getting Zosyn, for Proteus mirabilis UTI and bacteremia. The chest x-ray shows an endotracheal tube which is a bit high in the trachea, and can be pushed down 1-1/2 cm. The repeat brain CT shows an evolving left frontal parietal ischemic stroke. No hemorrhagic conversion. White count 12.6, hemoglobin 13.1, hematocrit 41.9, platelet count 93,000. Sodium 142, potassium 4.4, chlorides 110, CO2 19, anion gap 13, BUN 31, creatinine 2.68. AST is 147 with an ALT of 69. Chest x-ray in addition shows some bilateral mostly basilar scattered opacities. Progress note dated 08/27/2022. 76-year-old black male, seen again in the intensive care unit, room 250. He remains on the mechanical ventilator. His mental status is poor, and is being followed by neurology. He is currently on volume assist control, rate 20, tidal volume 450, FiO2 40%, to be dropped to 30%, and PEEP of 5. Blood gases on 40% show pO2 144, pCO2 44, and a pH of 7.33. This gases consistent with a very mild metabolic acidosis. The patient is currently on dextrose and saline at 75 mL an hour, vital high protein at 40 mL now with a goal of 58, and Zosyn, IV, for Proteus bacteremia and urinary tract sections. The patient's propofol is currently on hold because he is being evaluated neurologically by her n eurologist. The saline IV will be switched to D5 W at 75 mL an hour. White count is 4.6, hemoglobin 10.5, hematocrit 34, and platelet count is 49,000. Sodium 145, potassium 3.9, chlorides 1:15, CO2 23, BUN 42, creatinine 2.56. Albumin is 2.3. Chest x-ray shows left lower lobe infiltrate. Objective - Vital Signs Vital signs: Vital Signs Temp 97.8 F 08/27/22 08:00 Pulse 93 08/27/22 10:00 Resp 14 08/27/22 10:00 BP 133/69 08/27/22 10:00 Pulse Ox 97 08/27/22 10:00 FiO2 40 08/27/22 11:12 Intake & Output 08/26/22 08/27/22 08/27/22 18:59 06:59 18:59 Intake Total 8372.624 7848.651 163.825 Output Total 225 355 540 Balance 480.240 8228.651 -376.175 Weight 99.9 kg 101.5 kg Intake: IV 33 15 Pressure bag 33 15 Intake, IV Titration 4879.202 8793.651 118.825 Amount Dextrose 5%-0.9% NaCl 1, 825 900 75 000 ml @ 75 mls/hr IV . [id number] [facility] Rx#:[id number] Norepinephrine 32 mg In 121.768 46.081 1.930 Sodium Chloride 0.9% 218 ml @ 0.03 MCG/KG/MIN 1. 336 mls/hr IV .Q24H [facility] Rx#:[id number] Piperacillin-Tazobactam 3 100 .375 gm In Sodium Chloride 0.9% 100 ml @ 25 mls/hr IVPB Q8HR [facility] Rx# :[id number] propofoL 1,000 mg In 139.900 176.570 41.895 Empty Bag 1 bag @ 15 MCG/ KG/MIN 8.55 mls/hr IV . [id number] [facility] Rx#:[id number] Tube Feeding 30 290 30 Other 400 Output: Urine 225 355 540 Other: Voiding Method Indwelling Catheter Indwelling Catheter Indwelling Catheter ABP, PAP, CO, CI - Last Documented Arterial Blood Pressure 164/68 - Exam Sedated, with an orally placed endotracheal tube and NG tube. HEENT examination is grossly unremarkable. Neck supple. Full range of motion. No adenopathy thyromegaly or neck vein distention. Cardiovascular examination reveals regular rhythm rate. S1-S2 normal. No S3 or S4. No discernible murmur noted. Heart rate is 93 bpm. Lungs reveal coarse bilateral breath sounds. No wheezes. No crackles. Saturation is 97 %. Abdomen soft, without sounds. No masses or tenderness. Well-healed liver transplant scar. Extremities are intact. No cyanosis or clubbing. Trace edema. Chronic venous stasis changes noted. Skin is without rash or lesion. Neurologic examination cannot be adequately assessed as the patient's currently sedated - Labs CBC & Chem 7: 08/27/22 04:55 08/27/22 04:55 Labs: Abnormal Lab Results - Last 24 Hours (Table) 08/25/22 08/26/22 08/26/22 Range/Units 04:17 18:05 23:30 RBC (4.30-5.90) m/uL Hgb (13.0-17.5) gm/dL Hct (39.0-53.0) % MCHC (31.0-37.0) g/dL Plt Count (150-450) k/uL ABG pH (7.35-7.45) ABG pO2 (83-108) mmHg ABG Total CO2 (19-24) mmol/L ABG O2 Saturation (94-97) % Chloride (98-107) mmol/L BUN (9-20) mg/dL Creatinine (0.66-1.25) mg/dL Glucose (74-99) mg/dL POC Glucose (mg/dL) 207 H 227 H (70-110) mg/dL Calcium (8.4-10.2) mg/dL AST (17-59) U/L ALT (4-49) U/L Total Protein (6.3-8.2) g/dL Albumin (3.5-5.0) g/dL Tacrolimus <1.5 L (5.0-20.0) ng/mL 08/27/22 08/27/22 08/27/22 Range/Units 00:11 04:55 04:55 RBC 3.91 L (4.30-5.90) m/uL Hgb 10.5 L (13.0-17.5) gm/dL Hct 34.0 L (39.0-53.0) % MCHC 30.8 L (31.0-37.0) g/dL Plt Count 49 L (150-450) k/uL ABG pH (7.35-7.45) ABG pO2 (83-108) mmHg ABG Total CO2 (19-24) mmol/L ABG O2 Saturation (94-97) % Chloride 115 H (98-107) mmol/L BUN 42 H (9-20) mg/dL Creatinine 2.56 H (0.66-1.25) mg/dL Glucose 193 H (74-99) mg/dL POC Glucose (mg/dL) 211 H (70-110) mg/dL Calcium 6.7 L (8.4-10.2) mg/dL AST 66 H (17-59) U/L ALT 50 H (4-49) U/L Total Protein 4.3 L (6.3-8.2) g/dL Albumin 2.3 L (3.5-5.0) g/dL Tacrolimus (5.0-20.0) ng/mL 08/27/22 08/27/22 Range/Units 05:34 05:36 RBC (4.30-5.90) m/uL Hgb (13.0-17.5) gm/dL Hct (39.0-53.0) % MCHC (31.0-37.0) g/dL Plt Count (150-450) k/uL ABG pH 7.33 L (7.35-7.45) ABG pO2 144 H (83-108) mmHg ABG Total CO2 25 H (19-24) mmol/L ABG O2 Saturation 99.8 H (94-97) % Chloride (98-107) mmol/L BUN (9-20) mg/dL Creatinine (0.66-1.25) mg/dL Glucose (74-99) mg/dL POC Glucose (mg/dL) 221 H (70-110) mg/dL Calcium (8.4-10.2) mg/dL AST (17-59) U/L ALT (4-49) U/L Total Protein (6.3-8.2) g/dL Albumin (3.5-5.0) g/dL Tacrolimus (5.0-20.0) ng/mL Microbiology - Last 24 Hours (Table) 08/26/22 04:11 Blood Culture - Preliminary Blood No Growth after 24 hours 08/25/22 10:25 Blood Culture - Preliminary Blood No Growth after 24 hours Assessment and Plan Assessment: Hypotension, secondary to gram-negative sepsis, with Proteus mirabilis bacteremia and probable Proteus mirabilis urinary tract infection. Status post intubation and mechanical ventilation, 08/25/2022, as patient was unable to protect his airway. 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 History of liver transplantation, at the [facility]. Acute kidney injury. Lactic acidosis. History of hypertension. History of gastroesophageal reflux disease. History of BPH. History of hyperlipidemia. Plan: Plan dated 08/24/2022. The patient is currently being evaluated by neurology. Computed tomography scan of the brain suggests an acute infarct, involving the left parietal lobe. Apparently the patient and/or the patient's family would like the patient transferred to the [facility]. I'm not sure that we will be able to accomplish that. He is currently on 6 L of oxygen. He is on norepinephrine at 0.04 mcg/kg/m. Blood gases show a mild metabolic acidosis. He is currently on Zosyn. Cultures have been done. Labs, x-rays, and medications are reviewed. I placed a left subclavian triple-lumen catheter in the patient as he had limited IV access. Plan dated 08/25/2022. The patient was electively intubated and mechanically ventilated, so he could safely go down for another CAT scan. Because of the acute change of this mental status, we were concerned that the ischemic stroke worsened. The patient had a right radial art line in place. Yesterday, I placed a left subclavian triple- lumen catheter. The patient remains on a sodium bicarbonate drip, and norepinephrine, for supportive blood pressure. Oral medications were discontinued. The patient could be started on tube feeds. We will check a blood gas. Additional recommendations and suggestions are forthcoming. Plan dated 08/26/2022. The patient was intubated, for airway protection, yesterday, August 25. In addition, a right radial arterial line was placed. The patient went down for a computed tomography scan, and it showed that the left parietal frontal infarct, has extended. Currently, the patient's on Zosyn for Proteus mirabilis UTI and Proteus mirabilis bacteremia. The patient's on 16 mcg/m norepinephrine. He is not receiving tube feeds, but they will be started today. The patient is c urrently sedated with propofol. FiO2 can be reduced. Prognosis is very poor. We will continue to follow make recommendations where appropriate. I asked the nurse to find out from the family, whether or not they want him transferred. Initially, they wanted him transferred to the [facility]. Plan dated 08/27/2022. The patient remains intubated, with poor neurologic status. He is being currently evaluated by neurology. Propofol is on hold. His IV switched him dextrose and saline at 75 mL an hour, complaining dextrose, because of hypernatremia and hyperchloremia. Labs, x-rays, and medications are all reviewed. The patient's overall prognosis is poor. He remains on Zosyn for Proteus bacteremia and Proteus urinary tract infection. We will continue to follow and make recommendations where appropriate. Time with Patient: Greater than 30
--- NOTE | 2022-08-27 12:00 | P.PN ---
Subjective Progress Note Date: 08/27/22 The patient is seen at bedside and continue to be intubated on ventilator. He is on IV Propofol 20mcg/kg/min. He is requiring Norepinephrine intermittently. Objective - Vital Signs Vital signs: Vital Signs Temp 97.8 F 08/27/22 08:00 Pulse 93 08/27/22 10:00 Resp 14 08/27/22 10:00 BP 133/69 08/27/22 10:00 Pulse Ox 97 08/27/22 10:00 FiO2 40 08/27/22 11:12 Intake & Output 08/26/22 08/27/22 08/27/22 18:59 06:59 18:59 Intake Total 5411.833 2173.651 163.825 Output Total 225 355 540 Balance 449.772 3711.651 -376.175 Weight 99.9 kg 101.5 kg Intake: IV 33 15 Pressure bag 33 15 Intake, IV Titration 1252.569 4508.651 118.825 Amount Dextrose 5%-0.9% NaCl 1, 825 900 75 000 ml @ 75 mls/hr IV . [id number] [facility] Rx#:[id number] Norepinephrine 32 mg In 121.768 46.081 1.930 Sodium Chloride 0.9% 218 ml @ 0.03 MCG/KG/MIN 1. 336 mls/hr IV .Q24H [facility] Rx#:[id number] Piperacillin-Tazobactam 3 100 .375 gm In Sodium Chloride 0.9% 100 ml @ 25 mls/hr IVPB Q8HR [facility] Rx# :[id number] propofoL 1,000 mg In 139.900 176.570 41.895 Empty Bag 1 bag @ 15 MCG/ KG/MIN 8.55 mls/hr IV . [id number] [facility] Rx#:[id number] Tube Feeding 30 290 30 Other 400 Output: Urine 225 355 540 Other: Voiding Method Indwelling Catheter Indwelling Catheter Indwelling Catheter ABP, PAP, CO, CI - Last Documented Arterial Blood Pressure 164/68 - Exam GENERAL: The patient is lying in bed and is not in acute distress. RESPIRATORY: Intubated on Ventilator. NEUROLOGICAL: Limited because on IV Propofol 20mcg/kg/min and was stopped 30 minutes. Higher mental function: Patient is severely drowsy but open his eye. Is not following commands or attempting to communicate. Cranial nerves: Primary gaze is midline. The pupils are round, 3mm and reactive to light. Mild right lower facial weakness. Is breathing over the vent. Otherwise rest is limited. Motor: The strength is unable to assess. Cerebellum: Unable to assess. Sensation: Unable to assess. SOME OF THE WORK-UP DURING THIS HOSPITAL VISIT CONSISTED OF: Platelet is 93 and on initial presentation was 159. Urine culture is positive for gram-negative bacilli. Blood culture is positive for Proteus species Lipid panel is triglyceride 112, cholesterol 111, LDL is 61, HDL is 27. Ammonia level is less than [address] of the head is reported as cerebral atrophy. Old small cortical infarct in the left internal capsule. No acute abnormality. CT angiography of the head and neck is reported as angiogram is nondiagnostic since there is no vascular contrast. There is cerebral or cortical atrophy. No acute intercranial abnormality. No significant abnormality of the neck. Mild spondylitic changes in the cervical spine. Repeat CT of the head as reported as there is a 4 cm poorly marginated area of hypodensity in the left parietal lobe consistent with acute infarct and isn't changed compared to recent exam. No hemorrhage seen. Cerebral atrophy. Then later, reading radiologist has addendum and reports it is that acute infarct is a change compared to recent exam. I personally reviewed the CT of the head on the most recent CT that was done last and I felt the left parietal seemed acute. There is no intraparenchymal hemorrhage. And then I was compared it to initial CT head on presentation, I felt different in which, I did not notice any remark able acute ischemic in left parietal on initial CT. Carotid duplex was reported as there is bilateral plaque formation. There is bilateral mild elevation of internal carotid artery velocity. There is antegrade flow in the vertebral arteries. The images and measurements suggest 5 0-70% stenosis in both internal carotid arteries. Repeat CT head on 08/25/2022 is reported as increased size of low attenuation region in the medial left frontal/parietal lobe consistent with evolving acute/subacute infarct compared to the prior CT brain on 08/23/2022. No evidence for hemorrhagic conversion. I personally reviewed the image and I do agree there is evolution of the stroke but I feel mostly it's over the left parietal stroke than frontal. Routine EEG on 08/25/2022: Is abnormal. The background slowing suggestive of moderate encephalopathy. There is no focal slowing, epileptiform discharge or seizure on the EEG. Excessive beta activity and some diffuse suppression seen during the study is likely due to medication effect (Ativan). 2D echo is reported as likely normal left ventricle size and systolic function. Normal left atrial size. - Labs CBC & Chem 7: 08/27/22 04:55 08/27/22 04:55 Labs: Abnormal Lab Results - Last 24 Hours (Table) 08/25/22 08/26/22 08/26/22 Range/Units 04:17 18:05 23:30 RBC (4.30-5.90) m/uL Hgb (13.0-17.5) gm/dL Hct (39.0-53.0) % MCHC (31.0-37.0) g/dL Plt Count (150-450) k/uL ABG pH (7.35-7.45) ABG pO2 (83-108) mmHg ABG Total CO2 (19-24) mmol/L ABG O2 Saturation (94-97) % Chloride (98-107) mmol/L BUN (9-20) mg/dL Creatinine (0.66-1.25) mg/dL Glucose (74-99) mg/dL POC Glucose (mg/dL) 207 H 227 H (70-110) mg/dL Calcium (8.4-10.2) mg/dL AST (17-59) U/L ALT (4-49) U/L Total Protein (6.3-8.2) g/dL Albumin (3.5-5.0) g/dL Tacrolimus <1.5 L (5.0-20.0) ng/mL 08/27/22 08/27/22 08/27/22 Range/Units 00:11 04:55 04:55 RBC 3.91 L (4.30-5.90) m/uL Hgb 10.5 L (13.0-17.5) gm/dL Hct 34.0 L (39.0-53.0) % MCHC 30.8 L (31.0-37.0) g/dL Plt Count 49 L (150-450) k/uL ABG pH (7.35-7.45) ABG pO2 (83-108) mmHg ABG Total CO2 (19-24) mmol/L ABG O2 Saturation (94-97) % Chloride 115 H (98-107) mmol/L BUN 42 H (9-20) mg/dL Creatinine 2.56 H (0.66-1.25) mg/dL Glucose 193 H (74-99) mg/dL POC Glucose (mg/dL) 211 H (70-110) mg/dL Calcium 6.7 L (8.4-10.2) mg/dL AST 66 H (17-59) U/L ALT 50 H (4-49) U/L Total Protein 4.3 L (6.3-8.2) g/dL Albumin 2.3 L (3.5-5.0) g/dL Tacrolimus (5.0-20.0) ng/mL 08/27/22 08/27/22 Range/Units 05:34 05:36 RBC (4.30-5.90) m/uL Hgb (13.0-17.5) gm/dL Hct (39.0-53.0) % MCHC (31.0-37.0) g/dL Plt Count (150-450) k/uL ABG pH 7.33 L (7.35-7.45) ABG pO2 144 H (83-108) mmHg ABG Total CO2 25 H (19-24) mmol/L ABG O2 Saturation 99.8 H (94-97) % Chloride (98-107) mmol/L BUN (9-20) mg/dL Creatinine (0.66-1.25) mg/dL Glucose (74-99) mg/dL POC Glucose (mg/dL) 221 H (70-110) mg/dL Calcium (8.4-10.2) mg/dL AST (17-59) U/L ALT (4-49) U/L Total Protein (6.3-8.2) g/dL Albumin (3.5-5.0) g/dL Tacrolimus (5.0-20.0) ng/mL Microbiology - Last 24 Hours (Table) 08/26/22 04:11 Blood Culture - Preliminary Blood No Growth after 24 hours 08/25/22 10:25 Blood Culture - Preliminary Blood No Growth after 24 hours Assessment and Plan Assessment: This is a 76-year-old gentleman who presented because of weakness over the right side and was worsening. Was felt his weakness started on 08/22/2022. * Acute ischemic stroke over left parietal (on CT) with presentation of worsening right sided weakness. On examination he has right sided hemiplegia, dysarthria, right facial weakness. No IV tpa since unknown last normal (but seems outside window). His CT shows evolution of his left parietal/frontal (but feel more parietal stroke). Etiology of stroke is cryptogenic but appears embolic. * Altered mental status seems due to multifactorial: Septic encephalopathy (UTI), blood culture is positive for proteus species, metabolic encephalopathy due to worsening kidney function, electrolyte disturbance and due to stroke. Lastly on sedation (Propofol). * Status post intubation and mechanical ventilation on 08/25/2022 since the patient unable to protect his airway because of confusion * Carotid stenosis 50-70% bilateral ICA on carotid duplex but was felt just at 50% by vascular surgery team. * Acute Thromobocytopenia * Sepsis (likely due to UTI and blood is positive for proteus species) * Acute on chronic kidney insufficiency--worsening * Elevated liver function with AST currently is 284 and ALT of 81. * History of old stroke with some weakness possible lower weakness but was able to ambulate * History of liver failure s/p transplant Plan: I notified the nurse to continue with sedation holiday and if patient examinati on is worse then obtain repeat CT head. Because of his acute thrombocytopenia that's worsening aspirin was stopped because of increased risk of a bleed. Once his platelets is improved recommend resuming aspirin and down the line consider dual antiplatelet because of his stroke. Continue Lipitor 40 mg daily at bedtime for secondary stroke prophylaxis [employer] vascular surgery team for the carotid stenosis and they felt carotid stenosis at 50%. They did not feel he was a surgical candidate at this time. I agree that patient condition is currently unstable for carotid surgical intervention. Once kidney functions improves recommend repeat CTA head and neck. PT, OT and JACK MACHINE OPERATOR are consulted Continue neuro checks Avoid hypotensive episodes. I.D. team is consulted for his sepsis. On cardiac monitoring. We'll defer the rest of the medical management to the primary and ICU team For DVT prophylaxis use SCD's. Subq heparin is stopped because of thrombocytopenia. Patient condition is critical. The plan is discussed with his nurse and primary team. UPDATE: I was notified by the nurse later, that patient was still of sedation and patient was following commands and moving left side and not right (which seem unchanged). Therefore, no need for repeat CT head. Time with Patient: Less than 30
--- NOTE | 2022-08-27 15:29 | P.PN ---
Subjective Progress Note Date: 08/27/22 Principal diagnosis: Bacteremia Patient is a 76-year-old -[place] male past medical history significant for liver failure status post liver transplant or redness of his medication presented to hospital generalized weakness did have a positive UA concerning for UTI patient subsequently did have a positive blood culture. On today's evaluation that is 08/27/2022, the patient remains to be afebrile during that, the patient is hemodynamically stable not requiring any pressors support , the patient applied was stable at 40% , no significant purulent secretions through the ET or diarrhea reported by the nursing staff Objective - Vital Signs Vital signs: Vital Signs Temp 97.8 F 08/27/22 08:00 Pulse 88 08/27/22 12:48 Resp 14 08/27/22 10:00 BP 133/69 08/27/22 10:00 Pulse Ox 97 08/27/22 10:00 FiO2 40 08/27/22 12:00 Intake & Output 08/26/22 08/27/22 08/27/22 18:59 06:59 18:59 Intake Total 3041.716 7654.651 919.825 Output Total 085 210 7974 Balance 354.453 2507.651 -120.175 Weight 99.9 kg 101.5 kg Intake: IV 33 21 Pressure bag 33 21 Intake, IV Titration 3099.909 9181.651 668.825 Amount Dextrose 5% in Water 1, 300 000 ml @ 75 mls/hr IV . [id number] [facility] Rx#:[id number] Dextrose 5%-0.9% NaCl 1, 825 900 225 000 ml @ 75 mls/hr IV . [id number] [facility] Rx#:[id number] Norepinephrine 32 mg In 121.768 46.081 1.930 Sodium Chloride 0.9% 218 ml @ 0.03 MCG/KG/MIN 1. 336 mls/hr IV .Q24H [facility] Rx#:[id number] Piperacillin-Tazobactam 3 100 100 .375 gm In Sodium Chloride 0.9% 100 ml @ 25 mls/hr IVPB Q8HR [facility] Rx# :[id number] propofoL 1,000 mg In 139.900 176.570 41.895 Empty Bag 1 bag @ 15 MCG/ KG/MIN 8.55 mls/hr IV . [id number] [facility] Rx#:[id number] Tube Feeding 30 290 230 Other 400 Output: Urine 114 349 5016 Other: Voiding Method Indwelling Catheter Indwelling Catheter Indwelling Catheter ABP, PAP, CO, CI - Last Documented Arterial Blood Pressure 164/68 - Exam GENERAL DESCRIPTION: An elderly male intubated on the vent RESPIRATORY SYSTEM: Unlabored breathing , decreased breath sounds at bases HEART: S1 S2 regular rate and rhythm , ABDOMEN: Soft , no tenderness EXTREMITIES: No edema feet - Labs CBC & Chem 7: 08/27/22 04:55 08/27/22 04:55 Labs: Abnormal Lab Results - Last 24 Hours (Table) 08/25/22 08/26/22 08/26/22 Range/Units 04:17 18:05 23:30 RBC (4.30-5.90) m/uL Hgb (13.0-17.5) gm/dL Hct (39.0-53.0) % MCHC (31.0-37.0) g/dL Plt Count (150-450) k/uL ABG pH (7.35-7.45) ABG pO2 (83-108) mmHg ABG Total CO2 (19-24) mmol/L ABG O2 Saturation (94-97) % Chloride (98-107) mmol/L BUN (9-20) mg/dL Creatinine (0.66-1.25) mg/dL Glucose (74-99) mg/dL POC Glucose (mg/dL) 207 H 227 H (70-110) mg/dL Calcium (8.4-10.2) mg/dL AST (17-59) U/L ALT (4-49) U/L Total Protein (6.3-8.2) g/dL Albumin (3.5-5.0) g/dL Tacrolimus <1.5 L (5.0-20.0) ng/mL 08/27/22 08/27/22 08/27/22 Range/Units 00:11 04:55 04:55 RBC 3.91 L (4.30-5.90) m/uL Hgb 10.5 L (13.0-17.5) gm/dL Hct 34.0 L (39.0-53.0) % MCHC 30.8 L (31.0-37.0) g/dL Plt Count 49 L (150-450) k/uL ABG pH (7.35-7.45) ABG pO2 (83-108) mmHg ABG Total CO2 (19-24) mmol/L ABG O2 Saturation (94-97) % Chloride 115 H (98-107) mmol/L BUN 42 H (9-20) mg/dL Creatinine 2.56 H (0.66-1.25) mg/dL Glucose 193 H (74-99) mg/dL POC Glucose (mg/dL) 211 H (70-110) mg/dL Calcium 6.7 L (8.4-10.2) mg/dL AST 66 H (17-59) U/L ALT 50 H (4-49) U/L Total Protein 4.3 L (6.3-8.2) g/dL Albumin 2.3 L (3.5-5.0) g/dL Tacrolimus (5.0-20.0) ng/mL 08/27/22 08/27/22 Range/Units 05:34 05:36 RBC (4.30-5.90) m/uL Hgb (13.0-17.5) gm/dL Hct (39.0-53.0) % MCHC (31.0-37.0) g/dL Plt Count (150-450) k/uL ABG pH 7.33 L (7.35-7.45) ABG pO2 144 H (83-108) mmHg ABG Total CO2 25 H (19-24) mmol/L ABG O2 Saturation 99.8 H (94-97) % Chloride (98-107) mmol/L BUN (9-20) mg/dL Creatinine (0.66-1.25) mg/dL Glucose (74-99) mg/dL POC Glucose (mg/dL) 221 H (70-110) mg/dL Calcium (8.4-10.2) mg/dL AST (17-59) U/L ALT (4-49) U/L Total Protein (6.3-8.2) g/dL Albumin (3.5-5.0) g/dL Tacrolimus (5.0-20.0) ng/mL Microbiology - Last 24 Hours (Table) 08/25/22 10:25 Blood Culture - Preliminary Blood No Growth after 48 hours 08/26/22 04:11 Blood Culture - Preliminary Blood No Growth after 24 hours Assessment and Plan (1) Bacteremia Current Visit: Yes Status: Acute Code(s): R78.81 - BACTEREMIA SNOMED Code(s): 7825799 (2) UTI (urinary tract infection) Current Visit: No Status: Acute Code(s): N39.0 - URINARY TRACT INFECTION, SITE NOT SPECIFIED SNOMED Code(s): 41240704 Plan: 1patient presented to hospital with abdominal pain and nausea and vomiting in this patient did have a positive UA CT abdominal pelvis did not show any acute abnormality abdominal soft medical examination patient did have a positive UA concerning for symptomatic urinary tract infection likely from enteric gram- negative pathogen, patient subsequently did have slight worsening of his respiratory status and concern for possible aspiration pneumonitis. 2 sputum culture has been obtained which are currently growing staph aureus possible MSSA 3blood cultures with Proteus which is a sensitive pathogen 4patient has shown clinical improvement and will continue with the Zosyn while waiting for the sputum culture to be finalize we will hold on adding vancomycin at this point because of his borderline kidney function and more likely MSSA then MRSA in the sputum Time with Patient: Less than 30
[2022-08-27] MEDS: DEXTROSE 5% IN WATER 1,000 ML IV SCH ×2 (16:26→23:51)
[2022-08-27 18:07] LABS: Glucose,Whole Blood 127 mg/dL (70-110)
[2022-08-27] MEDS: LATANOPROST 0.005% OPHTH DROPS 2.5 ML BTL BOTH EYES SCH (20:07)
[2022-08-27] MEDS: NOREPINEPHRINE 32 MG in SODIUM CHLORIDE 0.9% 218 ML IV SCH (21:55)
[2022-08-27 23:43] LABS: Glucose,Whole Blood 119 mg/dL (70-110)
[2022-08-28] MEDS: IPRATROPIUM-ALBUTEROL 3 ML NEB INHALATION SCH ×6 (03:12→23:02)
[2022-08-28] MEDS: VASOPRESSIN 20 UNIT in SODIUM CHLORIDE 0.9% 50 ML IV SCH (04:03)
[2022-08-28 04:21] LABS: Basophils % (A) 0 %; Eosinophils # (A) 0.1 k/uL (0-0.7); Eosinophils % (A) 2 %; HCT 30.3 % (39.0-53.0); HGB 9.5 gm/dL (13.0-17.5); Hypochromasia Slight; Lymphocytes # (A) 0.7 k/uL (1.0-4.8); Lymphocytes % (A) 18 %; MCH 26.8 pg (25.0-35.0); MCHC 31.4 g/dL (31.0-37.0); MCV 85.5 fL (80.0-100.0); Mean Platelet Volume 11.3; Monocytes # (A) 0.1 k/uL (0-1.0); Monocytes % (A) 4 %; Neutrophils # (A) 2.9 k/uL (1.3-7.7); Neutrophils % (A) 74 %; RBC 3.54 m/uL (4.30-5.90); RDW 14.4 % (11.5-15.5); WBC 3.9 k/uL (3.8-10.6)
[2022-08-28 04:22] LABS: Platelet Count 53 k/uL (150-450)
[2022-08-28 04:27] LABS: Albumin 2.2 g/dL (3.5-5.0); Calcium 7.3 mg/dL (8.4-10.2); Potassium 3.3 mmol/L (3.5-5.1); Total Bilirubin 0.3 mg/dL (0.2-1.3); Total Protein 4.2 g/dL (6.3-8.2)
[2022-08-28] MEDS: POTASSIUM BICARBONATE/CIT AC 20 MEQ TABLET.EFF NG-TUBE SCH ×2 (04:59→05:59)
[2022-08-28 05:55] LABS: Glucose,Whole Blood 137 mg/dL (70-110)
[2022-08-28 05:55] LABS: ABG Base Excess 2.5 mmol/L; ABG HCO3 27 mmol/L (21-25); ABG Oxygen Saturation 98.2 % (94-97); ABG PCO2 39 mmHg (35-45); ABG PH 7.44 (7.35-7.45); ABG PO2 91 mmHg (83-108); ABG TCO2 28 mmol/L (19-24)
[2022-08-28] MEDS: INSULIN ASPART (NovoLOG) 100 UNIT/ML VIAL SQ SCH ×4 (05:59→23:55)
[2022-08-28 06:00] LABS: Allen Test Performed? yes
[2022-08-28] MEDS ORDERED: VANCOMYCIN 1,000 MG in SODIUM CHLORIDE 0.9% 250 ML IVPB STA ×2 (06:25→06:37)
[2022-08-28] MEDS ORDERED: VANCOMYCIN IV PER PHARMACY 1 EACH MISC MISCELLANE PRN (06:30)
[2022-08-28] MEDS ORDERED: VANCOMYCIN 1,500 MG in SODIUM CHLORIDE 0.9% 500 ML 500 ML IVPB SCH (07:00)
--- NOTE | 2022-08-28 07:58 | P.PN ---
Subjective Progress Note Date: 08/28/22 Principal diagnosis: Secondary, impending respiratory failure. Sepsis. Pulmonary consult dated 08/24/2022. 76-year-old black male, with a previous history of liver transplant, at [facility], and CVA, with right-sided weakness, who apparently presented to the emergency department on August 22, complaining of profound weakness, nausea, and vomiting. The patient was admitted to the floor, and I was asked to transfer the patient to the intensive care unit, as the patient was thought to have sepsis, with hypotension. 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 He apparently was at [employer], shopping, and developed sudden onset of abdominal pain nausea and vomiting. He also complaining of weakness in his lower extremities. Seen in the emergency room, and admitted to the hospital. Currently, the patient's getting saline at 130 mL an hour, and norepinephrine at 0.04 mcg/kg/m. A blood gas done on 6 L shows a pO2 of 86, pCO2 27, and a pH is 7.36. This blood gases consistent with mild metabolic acidosis. His initial blood gas was consistent with non-anion gap metabolic acidosis. His lactate initially was 4.8. He's currently on Zosyn. A computed tomography scan of the brain showed an acute infarct of the left parietal lobe. He is being seen by neurology. White count 4.1, hemoglobin 14, hematocrit 46.5, and platelet count 95,000. Sodium 138, potassium 4.3, chlorides 113, CO2 15, anion gap 10, BUN 26, creatinine 2.53. Lactic acid is 2.2. AST is 267 and ALT is 68. Troponin was 0.491. Pro-calcitonin level is 30.4. UA is consistent with a possible urinary tract infection. Testing for coronavirus was negative. Chest x-ray, after central line placement, by me, showed no complication. Progress note dated 08/25/2022. 76-year-old black female seen yesterday in consultation. When I saw him today, his mental status had declined. He was on 4 L of oxygen. He was also receiving norepinephrine at 0.06 mcg/kg/m, and was on a sodium bicarbonate drip, with 3 ampules of sodium bicarbonate and D5W at 100 mL an hour. The patient's urine showed gram-negative bacilli in the blood was positive for Proteus mirabilis. He was on Zosyn. He was to go for a CAT scan of the brain. Unfortunately, I felt that his situation was too unstable to send him down for a CAT scan, so he was electively intubated with a #8 endotracheal tube, using a standard laryngoscope, and #3 Alpesh blade. In addition, a right radial art line was placed. I did speak to the neurologist. The patient's post intubation chest x- ray showed diffuse bilateral infiltrates. White count was 5, hemoglobin 12.6, hematocrit 41.1, and platelet count was 95,000. Sodium 140, potassium 3.9, chlorides 109, CO2 21, anion gap 10, BUN 27, and creatinine 2.78. The patient's AST was 284 in the ALT was 81. The rest of the labs were reviewed. Progress note dated 08/26/2022. 76-year-old black male seen in consultation 2 days ago. The patient was admitted with a diagnosis of mental status changes, and probable sepsis. Unfortunately, the patient was electively intubated, yesterday, August 25, and at the same time, had a right radial arterial line placed. Currently, he remains on the mechanical ventilator. He is on volume assist control, rate 20, tidal volume 450, FiO2 55%, apply. Blood gases show a PaO2 of 137, pCO2 43, and a pH of 7.29. The FiO2 can be reduced. The patient's getting norepinephrine at 16 mcg/m, propofol at 30 mcg/kg/m, and dextrose and saline, at 75 mL an hour. The patient is getting Zosyn, for Proteus mirabilis UTI and bacteremia. The chest x-ray shows an endotracheal tube which is a bit high in the trachea, and can be pushed down 1-1/2 cm. The repeat brain CT shows an evolving left frontal parietal ischemic stroke. No hemorrhagic conversion. White count 12.6, hemoglobin 13.1, hematocrit 41.9, platelet count 93,000. Sodium 142, potassium 4.4, chlorides 110, CO2 19, anion gap 13, BUN 31, creatinine 2.68. AST is 147 with an ALT of 69. Chest x-ray in addition shows some bilateral mostly basilar scattered opacities. Progress note dated 08/27/2022. 76-year-old black male, seen again in the intensive care unit, room 250. He remains on the mechanical ventilator. His mental status is poor, and is being followed by neurology. He is currently on volume assist control, rate 20, tidal volume 450, FiO2 40%, to be dropped to 30%, and PEEP of 5. Blood gases on 40% show pO2 144, pCO2 44, and a pH of 7.33. This gases consistent with a very mild metabolic acidosis. The patient is currently on dextrose and saline at 75 mL an hour, vital high protein at 40 mL now with a goal of 58, and Zosyn, IV, for Proteus bacteremia and urinary tract sections. The patient's propofol is currently on hold because he is being evaluated neurologically by her n eurologist. The saline IV will be switched to D5 W at 75 mL an hour. White count is 4.6, hemoglobin 10.5, hematocrit 34, and platelet count is 49,000. Sodium 145, potassium 3.9, chlorides 1:15, CO2 23, BUN 42, creatinine 2.56. Albumin is 2.3. Chest x-ray shows left lower lobe infiltrate. Progress note dated 08/28/2022. 76-year-old white male seen again in the intensive care unit, room 250. He remains on the mechanical ventilator. His ventilator settings include the volume assist control, rate 20, tidal volume 450, FiO2 30%, and PEEP of 5. Arterial blood gases show pO2 of 91, pCO2 39, pH is 7.44. The patient's getting vital high protein at goal, which is 58 mL an hour, saline at 20 mL an hour, norepinephrine at 0.04 mcg/kg/m, D5W at 75 mL, and propofol at 35 mcg/kg/m. The patient continues on vancomycin and Zosyn. He's being followed by neurology. He did have a daily interruption of sedation yesterday. Laboratory data includes a white count 3.9, hemoglobin 9.5, hematocrit 30.3, and a platelet count 53,000. Sodium 143, potassium 3.3, chlorides 112, CO2 24, BUN 49, creat inine 2.29. Albumin is 2.2. Sputum is showing presumptive staph. The patient is given a dose of vancomycin pending the final identification. The blood cultures were positive for Proteus mirabilis, as well as the urine sampling. The patient's chest x-ray shows an infiltrate primarily in the left lower lobe. Objective - Vital Signs Vital signs: Vital Signs Temp 98.5 F 08/28/22 04:00 Pulse 76 08/28/22 07:30 Resp 22 08/28/22 07:00 BP 117/57 08/28/22 07:00 Pulse Ox 98 08/28/22 07:00 FiO2 30 08/28/22 07:05 Intake & Output 08/27/22 08/28/22 08/28/22 18:59 06:59 18:59 Intake Total 5520.720 1313.276 0.289 Output Total 1711 785 Balance 4.930 1812.276 0.289 Weight 100.4 kg Intake: IV 39 36 Pressure bag 39 36 Intake, IV Titration 8336.047 6315.276 0.289 Amount Dextrose 5% in Water 1, 750 900 000 ml @ 75 mls/hr IV . [id number] [facility] Rx#:[id number] Dextrose 5%-0.9% NaCl 1, 225 000 ml @ 75 mls/hr IV . [id number] [facility] Rx#:[id number] Norepinephrine 32 mg In 1.930 19.594 0.289 Sodium Chloride 0.9% 218 ml @ 0.03 MCG/KG/MIN 1. 336 mls/hr IV .Q24H [facility] Rx#:[id number] Piperacillin-Tazobactam 3 100 125 .375 gm In Sodium Chloride 0.9% 100 ml @ 25 mls/hr IVPB Q8HR [facility] Rx# :[id number] Vancomycin 1,000 mg In 250 Sodium Chloride 0.9% 250 ml @ 125 mls/hr IVPB ONCE [facility] Rx#:[id number] propofoL 1,000 mg In 100.000 202.682 Empty Bag 1 bag @ 15 MCG/ KG/MIN 8.55 mls/hr IV . [id number] [facility] Rx#:[id number] Tube Feeding 500 664 Other 400 Output: Urine 1710 785 Stool 1 Other: Voiding Method Indwelling Catheter Indwelling Catheter ABP, PAP, CO, CI - Last Documented Arterial Blood Pressure 128/46 - Exam Sedated, with an orally placed endotracheal tube and NG tube. The patient is currently sedated with propofol. HEENT examination is grossly unremarkable. Neck supple. Full range of motion. No adenopathy thyromegaly or neck vein distention. Cardiovascular examination reveals regular rhythm rate. S1-S2 normal. No S3 or S4. No discernible murmur noted. Heart rate is 76 bpm. Lungs reveal coarse bilateral breath sounds. No wheezes. No crackles. Saturation is 98 %. Abdomen soft, without sounds. No masses or tenderness. Well-healed liver transplant scar. Extremities are intact. No cyanosis or clubbing. Trace edema. Chronic venous stasis changes noted. Skin is without rash or lesion. Neurologic examination cannot be adequately assessed as the patient's currently sedated - Labs CBC & Chem 7: 08/28/22 03:55 08/28/22 03:55 Labs: Abnormal Lab Results - Last 24 Hours (Table) 08/27/22 08/27/22 08/28/22 Range/Units 18:05 23:42 03:55 RBC (4.30-5.90) m/uL Hgb (13.0-17.5) gm/dL Hct (39.0-53.0) % Plt Count (150-450) k/uL Lymphocytes # (1.0-4.8) k/uL ABG HCO3 (21-25) mmol/L ABG Total CO2 (19-24) mmol/L ABG O2 Saturation (94-97) % Potassium 3.3 L (3.5-5.1) mmol/L Chloride 112 H (98-107) mmol/L BUN 49 H (9-20) mg/dL Creatinine 2.29 H (0.66-1.25) mg/dL Glucose 130 H (74-99) mg/dL POC Glucose (mg/dL) 127 H 119 H (70-110) mg/dL Calcium 7.3 L (8.4-10.2) mg/dL Total Protein 4.2 L (6.3-8.2) g/dL Albumin 2.2 L (3.5-5.0) g/dL 08/28/22 08/28/22 08/28/22 Range/Units 03:55 05:51 05:54 RBC 3.54 L (4.30-5.90) m/uL Hgb 9.5 L (13.0-17.5) gm/dL Hct 30.3 L (39.0-53.0) % Plt Count 53 L (150-450) k/uL Lymphocytes # 0.7 L (1.0-4.8) k/uL ABG HCO3 27 H (21-25) mmol/L ABG Total CO2 28 H (19-24) mmol/L ABG O2 Saturation 98.2 H (94-97) % Potassium (3.5-5.1) mmol/L Chloride (98-107) mmol/L BUN (9-20) mg/dL Creatinine (0.66-1.25) mg/dL Glucose (74-99) mg/dL POC Glucose (mg/dL) 137 H (70-110) mg/dL Calcium (8.4-10.2) mg/dL Total Protein (6.3-8.2) g/dL Albumin (3.5-5.0) g/dL Microbiology - Last 24 Hours (Table) 08/26/22 04:11 Blood Culture - Preliminary Blood No Growth after 48 hours 08/25/22 12:27 Stool Culture - Preliminary Stool 08/23/22 19:48 Blood Culture Gram Stain - Final Blood Blood Culture - Final Proteus mirabilis 08/25/22 13:30 Gram Stain - Preliminary Sputum Sputum Culture - Preliminary Presumptive Staph aureus 08/25/22 10:25 Blood Culture - Preliminary Blood No Growth after 48 hours Assessment and Plan Assessment: Hypotension, secondary to gram-negative sepsis, with Proteus mirabilis bacteremia and probable Proteus mirabilis urinary tract infection. Status post intubation and mechanical ventilation, 08/25/2022, as patient was unable to protect his airway. Left lower lobe pneumonia, sputum is showing presumptive staph aureus. 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 History of liver transplantation, at the [facility]. Acute kidney injury. Lactic acidosis. History of hypertension. History of gastroesophageal reflux disease. History of BPH. History of hyperlipidemia. Plan: Plan dated 08/24/2022. The patient is currently being evaluated by neurology. Computed tomography scan of the brain suggests an acute infarct, involving the left parietal lobe. Apparently the patient and/or the patient's family would like the patient transferred to the [facility]. I'm not sure that we will be able to accomplish that. He is currently on 6 L of oxygen. He is on norepinephrine at 0.04 mcg/kg/m. Blood gases show a mild metabolic acidosis. He is currently on Zosyn. Cultures have been done. Labs, x-rays, and medications are reviewed. I placed a left subclavian triple-lumen catheter in the patient as he had limited IV access. Plan dated 08/25/2022. The patient was electively intubated and mechanically ventilated, so he could safely go down for another CAT scan. Because of the acute change of this mental status, we were concerned that the ischemic stroke worsened. The patient had a right radial art line in place. Yesterday, I placed a left subclavian triple- lumen catheter. The patient remains on a sodium bicarbonate drip, and norepi nephrine, for supportive blood pressure. Oral medications were discontinued. The patient could be started on tube feeds. We will check a blood gas. Additional recommendations and suggestions are forthcoming. Plan dated 08/26/2022. The patient was intubated, for airway protection, yesterday, August 25. In addition, a right radial arterial line was placed. The patient went down for a computed tomography scan, and it showed that the left parietal frontal infarct, has extended. Currently, the patient's on Zosyn for Proteus mirabilis UTI and Proteus mirabilis bacteremia. The patient's on 16 mcg/m norepinephrine. He is not receiving tube feeds, but they will be started today. The patient is currently sedated with propofol. FiO2 can be reduced. Prognosis is very poor. We will continue to follow make recommendations where appropriate. I asked the nurse to find out from the family, whether or not they want him transferred. Initially, they wanted him transferred to the [facility]. Plan dated 08/27/2022. The patient remains intubated, with poor neurologic status. He is being currently evaluated by neurology. Propofol is on hold. His IV switched him dextrose and saline at 75 mL an hour, complaining dextrose, because of hypernatremia and hyperchloremia. Labs, x-rays, and medications are all reviewed. The patient's overall prognosis is poor. He remains on Zosyn for Proteus bacteremia and Proteus urinary tract infection. We will continue to follow and make recommendations where appropriate. Plan dated 08/28/2022. The patient remains intubated. He did have a daily interruption of sedation yesterday. He was evaluated further by neurology. Currently, the patient's on propofol, and norepinephrine as mentioned above. He is getting tube feedings, at goal. The patient has evidence of both Proteus mirabilis bacteremia and Proteus mirabilis urinary tract infection. For that, the patient is on Zosyn. Sputum was positive for presumptive staph, and the patient was given a dose of vancomycin. Labs, x-rays, and medications are reviewed. We will continue to follow. The patient's most recent computed tomography scan showed evolution of his left frontal parietal ischemic CVA. Prognosis is guarded. Time with Patient: Greater than 30
[2022-08-28] MEDS: PIPERACILLIN-TAZOBACTAM 3.375 GM in SODIUM CHLORIDE 0.9% 100 ML IVPB SCH (08:34)
[2022-08-28] MEDS: CHLORHEXIDINE GLUCONATE 15 ML CUP MUCOUS MEM SCH ×2 (08:34→20:45)
[2022-08-28] MEDS: methylPREDNISolone SOD SUCCI 40 MG/ML 1 ML VIAL IV SCH (08:34)
[2022-08-28] MEDS: TACROLIMUS 0.5 MG CAP PO SCH ×2 (08:35→20:45)
--- NOTE | 2022-08-28 08:58 | XR ---
EXAMINATION TYPE: XR chest 1V portable DATE OF EXAM: 08/28/2022 COMPARISON: 08/27/2022 INDICATION: tube placement TECHNIQUE: Single frontal view of the chest is obtained. Patient is rotated to the right. FINDINGS: The heart size is normal. The pulmonary vasculature is similar prior study, slightly prominent.. There is a left lower lobe infiltrate. Some developing right lower lobe infiltrate may be present. The endotracheal tube tip is above the hever. Nasogastric tube transverses the thorax. Left central venous catheter tip is in the distal superior vena cava region. IMPRESSION: 1. Correlate for atypical pulmonary edema. Left lower lobe pneumonia remains within the differential.
--- NOTE | 2022-08-28 10:18 | P.PN ---
Subjective Patient is seen for follow-up for acute kidney injury. Patient is currently on the vent. Levo fed has been off. Status post IV Lasix yesterday. Urine output has been good now at 52 1 50 mL per hour. Renal function continues to improve. Creatinine down to 2.9 today. Objective - Vital Signs Vital signs: Vital Signs Temp 98.5 F 08/28/22 04:00 Pulse 76 08/28/22 07:30 Resp 22 08/28/22 07:00 BP 117/57 08/28/22 07:00 Pulse Ox 98 08/28/22 07:00 FiO2 30 08/28/22 07:05 Intake & Output 08/27/22 08/28/22 08/28/22 18:59 06:59 18:59 Intake Total 5254.869 7887.276 0.289 Output Total 1711 785 Balance 4.930 1812.276 0.289 Weight 100.4 kg Intake: IV 39 36 Pressure bag 39 36 Intake, IV Titration 8979.044 6306.276 0.289 Amount Dextrose 5% in Water 1, 750 900 000 ml @ 75 mls/hr IV . [id number] [facility] Rx#:[id number] Dextrose 5%-0.9% NaCl 1, 225 000 ml @ 75 mls/hr IV . [id number] [facility] Rx#:[id number] Norepinephrine 32 mg In 1.930 19.594 0.289 Sodium Chloride 0.9% 218 ml @ 0.03 MCG/KG/MIN 1. 336 mls/hr IV .Q24H [facility] Rx#:[id number] Piperacillin-Tazobactam 3 100 125 .375 gm In Sodium Chloride 0.9% 100 ml @ 25 mls/hr IVPB Q8HR [facility] Rx# :[id number] Vancomycin 1,000 mg In 250 Sodium Chloride 0.9% 250 ml @ 125 mls/hr IVPB ONCE [facility] Rx#:[id number] propofoL 1,000 mg In 100.000 202.682 Empty Bag 1 bag @ 15 MCG/ KG/MIN 8.55 mls/hr IV . [id number] [facility] Rx#:[id number] Tube Feeding 500 664 Other 400 Output: Urine 1710 785 Stool 1 Other: Voiding Method Indwelling Catheter Indwelling Catheter ABP, PAP, CO, CI - Last Documented Arterial Blood Pressure 128/46 - Exam Patient is sedated. On the ventilator Bilateral breath sounds are heard Abdomen is soft Examination lower extremities shows edema 1+ bilaterally and edema in the upper extremities as well - Labs CBC & Chem 7: 08/28/22 03:55 08/28/22 03:55 Labs: Abnormal Lab Results - Last 24 Hours (Table) 08/27/22 08/27/22 08/28/22 Range/Units 18:05 23:42 03:55 RBC (4.30-5.90) m/uL Hgb (13.0-17.5) gm/dL Hct (39.0-53.0) % Plt Count (150-450) k/uL Lymphocytes # (1.0-4.8) k/uL ABG HCO3 (21-25) mmol/L ABG Total CO2 (19-24) mmol/L ABG O2 Saturation (94-97) % Potassium 3.3 L (3.5-5.1) mmol/L Chloride 112 H (98-107) mmol/L BUN 49 H (9-20) mg/dL Creatinine 2.29 H (0.66-1.25) mg/dL Glucose 130 H (74-99) mg/dL POC Glucose (mg/dL) 127 H 119 H (70-110) mg/dL Calcium 7.3 L (8.4-10.2) mg/dL Total Protein 4.2 L (6.3-8.2) g/dL Albumin 2.2 L (3.5-5.0) g/dL 08/28/22 08/28/22 08/28/22 Range/Units 03:55 05:51 05:54 RBC 3.54 L (4.30-5.90) m/uL Hgb 9.5 L (13.0-17.5) gm/dL Hct 30.3 L (39.0-53.0) % Plt Count 53 L (150-450) k/uL Lymphocytes # 0.7 L (1.0-4.8) k/uL ABG HCO3 27 H (21-25) mmol/L ABG Total CO2 28 H (19-24) mmol/L ABG O2 Saturation 98.2 H (94-97) % Potassium (3.5-5.1) mmol/L Chloride (98-107) mmol/L BUN (9-20) mg/dL Creatinine (0.66-1.25) mg/dL Glucose (74-99) mg/dL POC Glucose (mg/dL) 137 H (70-110) mg/dL Calcium (8.4-10.2) mg/dL Total Protein (6.3-8.2) g/dL Albumin (3.5-5.0) g/dL Microbiology - Last 24 Hours (Table) 08/26/22 04:11 Blood Culture - Preliminary Blood No Growth after 48 hours 08/25/22 12:27 Stool Culture - Preliminary Stool 08/23/22 19:48 Blood Culture Gram Stain - Final Blood Blood Culture - Final Proteus mirabilis 08/25/22 13:30 Gram Stain - Preliminary Sputum Sputum Culture - Preliminary Presumptive Staph aureus 08/25/22 10:25 Blood Culture - Preliminary Blood No Growth after 48 hours Assessment and Plan Assessment: 1. Acute kidney injury secondary to ATN secondary to septic shock and contrast- induced acute kidney injury. Patient received IV contrast on 08/23/2022. Creatinine was 1.74 on admission and peaked at 2.78 - 2.68 today. Nonoliguric. No hydronephrosis noted on CAT scan. 2. Chronic kidney disease stage IIIa with baseline creatinine in the range of 1.2-1.5 secondary to nephrosclerosis and long-term calcineurin inhibitor use. 3. 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 4. Metabolic acidosis secondary to acute kidney injury, lactic acidosis and IV fluids. Status post bicarb drip. 5. 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 Neurology following. 6. Septic shock secondary to Proteus UTI and bacteremia on antibiotics. Status post pressors. Plan: Consider decreasing IV fluids Avoid nephrotoxic agents Repeat labs in a.m. Continue with Prograf, it was just restarted. Level was less than 1.5 on 08/25/2022.
[2022-08-28 11:18] LABS: Glucose,Whole Blood 174 mg/dL (70-110)
--- NOTE | 2022-08-28 11:19 | P.PN ---
Subjective Progress Note Date: 08/28/22 The patient is seen at bedside and no acute events. He continues to be intubated, on ventilator and on IV Propofol 30mcg/kg/min. It seems the patient's family still want to pursue transfer to [facility] for escalation of care. Objective - Vital Signs Vital signs: Vital Signs Temp 98.2 F 08/28/22 07:15 Pulse 73 08/28/22 11:00 Resp 20 08/28/22 10:45 BP 121/56 08/28/22 10:15 Pulse Ox 97 08/28/22 10:45 FiO2 30 08/28/22 10:56 Intake & Output 08/27/22 08/28/22 08/28/22 18:59 06:59 18:59 Intake Total 1944.011 5584.276 0.289 Output Total 1711 785 Balance 4.930 1812.276 0.289 Weight 100.4 kg Intake: IV 39 36 Pressure bag 39 36 Intake, IV Titration 6915.730 8594.276 0.289 Amount Dextrose 5% in Water 1, 750 900 000 ml @ 75 mls/hr IV . [id number] [facility] Rx#:[id number] Dextrose 5%-0.9% NaCl 1, 225 000 ml @ 75 mls/hr IV . [id number] [facility] Rx#:[id number] Norepinephrine 32 mg In 1.930 19.594 0.289 Sodium Chloride 0.9% 218 ml @ 0.03 MCG/KG/MIN 1. 336 mls/hr IV .Q24H [facility] Rx#:[id number] Piperacillin-Tazobactam 3 100 125 .375 gm In Sodium Chloride 0.9% 100 ml @ 25 mls/hr IVPB Q8HR [facility] Rx# :[id number] Vancomycin 1,000 mg In 250 Sodium Chloride 0.9% 250 ml @ 125 mls/hr IVPB ONCE [facility] Rx#:[id number] propofoL 1,000 mg In 100.000 202.682 Empty Bag 1 bag @ 15 MCG/ KG/MIN 8.55 mls/hr IV . [id number] [facility] Rx#:[id number] Tube Feeding 500 664 Other 400 Output: Urine 1710 785 Stool 1 Other: Voiding Method Indwelling Catheter Indwelling Catheter ABP, PAP, CO, CI - Last Documented Arterial Blood Pressure 120/50 - Exam GENERAL: The patient is lying in bed and is not in acute distress. RESPIRATORY: Intubated on Ventilator. NEUROLOGICAL: Limited because on IV Propofol 30mcg/kg/min. Higher mental function: Patient is severely drowsy but open briefly opens his eyes. Is not following commands or attempting to communicate. Cranial nerves: Primary gaze is midline. The pupils are round, pinpoint bilaterally. Subtle/Mild right lower facial weakness. Is breathing over the vent. Has weak cough reflex. Otherwise rest is limited. Motor: The strength is unable to assess. Cerebellum: Unable to assess. Sensation: Unable to assess. SOME OF THE WORK-UP DURING THIS HOSPITAL VISIT CONSISTED OF: Platelet is 159K on initial presentation and currently is 53K. Urine culture is positive for gram-negative bacilli. Blood culture is positive for Proteus species Lipid panel is triglyceride 112, cholesterol 111, LDL is 61, HDL is 27. Ammonia level is less than [address] of the head is reported as cerebral atrophy. Old small cortical infarct in the left internal capsule. No acute abnormality. CT angiography of the head and neck is reported as angiogram is nondiagnostic since there is no vascular contrast. There is cerebral or cortical atrophy. No acute intercranial abnormality. No significant abnormality of the neck. Mild spondylitic changes in the cervical spine. Repeat CT of the head as reported as there is a 4 cm poorly marginated area of hypodensity in the left parietal lobe consistent with acute infarct and isn't changed compared to recent exam. No hemorrhage seen. Cerebral atrophy. Then later, reading radiologist has addendum and reports it is that acute infarct is a change compared to recent exam. I personally reviewed the CT of the head on the most recent CT that was done last and I felt the left parietal seemed acute. There is no intraparenchymal hemorrhage. And then I was compared it to initial CT head on presentation, I felt different in which, I did not notice any re markable acute ischemic in left parietal on initial CT. Carotid duplex was reported as there is bilateral plaque formation. There is bilateral mild elevation of internal carotid artery velocity. There is antegrade flow in the vertebral arteries. The images and measurements suggest 50-70% stenosis in both internal carotid arteries. Repeat CT head on 08/25/2022 is reported as increased size of low attenuation region in the medial left frontal/parietal lobe consistent with evolving acute/subacute infarct compared to the prior CT brain on 08/23/2022. No evidence for hemorrhagic conversion. I personally reviewed the image and I do agree there is evolution of the stroke but I feel mostly it's over the left parietal stroke than frontal. Routine EEG on 08/25/2022: Is abnormal. The background slowing suggestive of moderate encephalopathy. There is no focal slowing, epileptiform discharge or seizure on the EEG. Excessive beta activity and some diffuse suppression seen during the study is likely due to medication effect (Ativan). 2D echo is reported as likely normal left ventricle size and systolic function. Normal left atrial size. - Labs CBC & Chem 7: 08/28/22 03:55 08/28/22 03:55 Labs: Abnormal Lab Results - Last 24 Hours (Table) 08/27/22 08/27/22 08/28/22 Range/Units 18:05 23:42 03:55 RBC (4.30-5.90) m/uL Hgb (13.0-17.5) gm/dL Hct (39.0-53.0) % Plt Count (150-450) k/uL Lymphocytes # (1.0-4.8) k/uL ABG HCO3 (21-25) mmol/L ABG Total CO2 (19-24) mmol/L ABG O2 Saturation (94-97) % Potassium 3.3 L (3.5-5.1) mmol/L Chloride 112 H (98-107) mmol/L BUN 49 H (9-20) mg/dL Creatinine 2.29 H (0.66-1.25) mg/dL Glucose 130 H (74-99) mg/dL POC Glucose (mg/dL) 127 H 119 H (70-110) mg/dL Calcium 7.3 L (8.4-10.2) mg/dL Total Protein 4.2 L (6.3-8.2) g/dL Albumin 2.2 L (3.5-5.0) g/dL 08/28/22 08/28/22 08/28/22 Range/Units 03:55 05:51 05:54 RBC 3.54 L (4.30-5.90) m/uL Hgb 9.5 L (13.0-17.5) gm/dL Hct 30.3 L (39.0-53.0) % Plt Count 53 L (150-450) k/uL Lymphocytes # 0.7 L (1.0-4.8) k/uL ABG HCO3 27 H (21-25) mmol/L ABG Total CO2 28 H (19-24) mmol/L ABG O2 Saturation 98.2 H (94-97) % Potassium (3.5-5.1) mmol/L Chloride (98-107) mmol/L BUN (9-20) mg/dL Creatinine (0.66-1.25) mg/dL Glucose (74-99) mg/dL POC Glucose (mg/dL) 137 H (70-110) mg/dL Calcium (8.4-10.2) mg/dL Total Protein (6.3-8.2) g/dL Albumin (3.5-5.0) g/dL Microbiology - Last 24 Hours (Table) 08/25/22 13:30 Gram Stain - Final Sputum Sputum Culture - Final Methicillin resist S. aureus 08/26/22 04:11 Blood Culture - Preliminary Blood No Growth after 48 hours 08/25/22 12:27 Stool Culture - Preliminary Stool 08/23/22 19:48 Blood Culture Gram Stain - Final Blood Blood Culture - Final Proteus mirabilis 08/25/22 10:25 Blood Culture - Preliminary Blood No Growth after 48 hours Assessment and Plan Assessment: This is a 76-year-old gentleman who presented because of weakness over the right side and was worsening. Was felt his weakness started on 08/22/2022. * Acute ischemic stroke over left parietal (on CT) with presentation of worsening right sided weakness. On examination he has right sided hemiplegia, dysarthria, right facial weakness. No IV tpa since unknown last normal (but seems outside window). His CT shows evolution of his left parietal/frontal (but feel more parietal stroke). Etiology of stroke is cryptogenic but appears embolic. * Altered mental status seems due to multifactorial: Septic encephalopathy (UTI), blood culture is positive for proteus species, metabolic encephalopathy due to worsening kidney function, electrolyte disturbance and due to stroke. Lastly on sedation (Propofol). * Status post intubation and mechanical ventilation on 08/25/2022 since the patient unable to protect his airway because of confusion * Carotid stenosis 50-70% bilateral ICA on carotid duplex but was felt just at 50% by vascular surgery team. * Acute Thrombocytopenia * Sepsis (likely due to UTI and blood is positive for proteus species) * Acute on chronic kidney insufficiency--minimal to mild improvement * Elevated liver function with AST currently is 284 and ALT of 81. * History of old stroke with some weakness possible lower weakness but was able to ambulate * History of liver failure s/p transplant Plan: Will get repeat CT head to assess if any new acute or subacute ischemic or any progression of stroke. Because of his acute thrombocytopenia that's worsening aspirin was stopped because of increased risk of a bleed. Once his platelets is improved recommend resuming aspirin and down the line consider dual antiplatelet because of his stroke. Continue Lipitor 40 mg daily at bedtime for secondary stroke prophylaxis Monitoring And Evaluation Advisor vascular surgery team for the carotid stenosis and they felt carotid stenosis at 50%. They did not feel he was a surgical candidate at this time. I agree that patient condition is currently unstable for carotid surgical intervention. Once kidney functions improves recommend repeat CTA head and neck. PT, OT and SHIPPING SUPPORT are consulted Continue neuro checks Avoid hypotensive episodes. I.D. team is consulted for his sepsis. On cardiac monitoring. We'll defer the rest of the medical management to the primary and ICU team For DVT prophylaxis use SCD's. Subq heparin is stopped because of thrombocytopenia. Patient condition is critical. Pending transfer to [facility] for escalation of care. The plan is discussed with his nurse and primary team. Dr. Bridges will start neurology service tomorrow A.M. Time with Patient: Less than 30
--- NOTE | 2022-08-28 11:24 | P.PN ---
Subjective Progress Note Date: 08/28/22 76-year-old the male came in with the comments of generalized weakness and a nonspecific abdominal pain diffuse. Patient the overall clinical condition gotten worse patient became more septic patient is on immunosuppressive therapy with tacrolimus, mycophenolate. Patient was subsequently admitted to ICU. Patient neurological status also has worsened because of which the it was believed the patient has stroke. Patient does have chronic right-sided weakness with strength of 3/5 which is his baseline. Patient underwent multiple imaging studies including her CT angios the head and neck as well as a CT of the head which showed acute ischemic stroke over the left parietal lobe with worsening weakness on the right side. Patient continued to be on antiplatelet therapy. Patient urine cultures came back positive for Proteus mirabilis and patient blood cultures are now positive for Proteus species possible source of infection being urinary tract infection this Proteus species is pansensitive to multiple antibiotics patient is presently on Zosyn. Patient liver enzymes on admission were within normal limits patient is a liver transplant patient patient liver enzymes went up minimally to 284 and ALP of 81 this is probably secondary to sepsis and patient has acute tumor necrosis secondary to sepsis with worsening creatinine of around 2.8 baseline creatinine of around 1. Patient was encephal opathic EEG was ordered.. Today morning patient is found to be hypoxic any arterial blood gases after which patient was intubated patient is presently on 100% FiO2 assist control ventilation with PEEP of 5. Patient with the has troponin of 0.49 secondary to sepsis. 08/26/2022 Patient continues to be monitored closely in the intensive care unit. Continues to be intubated and on mechanical ventilator with FiO2 of 40% with oxygen saturation of 100%, fever is improving currently 97.6. Blood pressure 106/60 which he has been continued on vasopressor support. Continues on propofol for sedation. Current antibiotic coverage of IV zosyn for proteus miribilis UTI and bacteremia. Infectious disease following. Cellcept remains on hold. Patient was able to receive prograf through NG tube today. Case was discussed with liver transplant team yesterday. Patient did have repeat brain CT completed yesterday showing evolving stroke left parietal/left front. No evidence for hemorrhagic conversion. Neurology following. Patient will be started on nutritional feeds today. As of yesterday family was undecided about pursuing transfer to another facility. They would still like to pursue transfer to [facility]. Did speak with Dr. Espinoza at [facility] yesterday and CT imaging was sent over at request of physician to review. Awaiting status update from [facility] transfer team regarding decision to accept. Family is aware of pending status as of yesterday with no new updates yet today. Labs today showing a white count of 12.6, platelet count of 93, sodium 142, potassium 4.4, BUN 31, creatinine 2.68, blood glucose 200s. AST 147, ALT 69, alk phos 124. 08/27/2022 Patient evaluated today in intensive care unit currently intubated on mechanical ventilator with FiO2 of 40%. He has remained afebrile. Currently maintaining blood pressures 130/60s off of pressor support. He continues to be sedated with propofol. Today he is responsive to painful stimulation of the right hand with minimal eye opening however continues to be drowsy, and from a neurological standpoint overall prognosis is poor. Plan today is to wean sedation and repeat brain CT if no neurological improvement. He is also continued on IV zosyn for proteus UTI and bacteremia. Repeat blood cultures are currently pending at this time, sputum culture is also pending. Continues on D5 normal saline at 75 mls per hour and urine output is about 675 mls in the last 24 hours. Labs today are showing sodium level of 145, potassium 3.9, BUN 42, creatinine 2.56, blood glucose in the 200s, calcium 6.7, magnesium 2.3, liver enzymes are continuing to improve AST 66, ALT 50, alk phos 82. Remains on tacrolimus and IV solumedrol. Platelet count has continued to drop currently now 49, hgb of 10.5, white count 4.6. Fibrinogen, PT/INR, pTT within normal limits. Hematology consultation requested for further investigation and will recommend to hold off on heparin subcutaneous for now. Noted that patient was on single antiplatelet therapy for acute evolving ischemic infarct and aspirin is currently being held as well now. Chest xray today showing Left lower lobe infiltrate. For now [facility] transfer pending this was done for family request. have not heard back if physician has accepted. 08/28/2022 Patient is evaluated in intensive care unit today. Pending return phone call from [facility] transfer regarding acceptance, the physician Dr. 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 Patient repeat chest x-ray today showing possible atypical pulmonary edema with left lower lobe pneumonia remains within the differential. Sputum cultures positive for MRSA, repeat blood cultures are pending so far. Patient continues on the Zosyn and received a dose of IV vancomycin. Infectious disease is following patient closely. Continues on IV Solu-Medrol, he is currently maintained on norepinephrine at 0.01 mcgs, he is receiving propofol for sedation. IV fluids are infusing D5 in water at 75 mls per hour. Patient remains afebrile, heart rate 73, blood pressure 121/56, 97% oxygen saturation on the mechanical ventilator of FiO2 30%. Labs today are halley wing a white count of 3.9, hemoglobin 9.5, platelet count of 53, potassium 3.3, BUN 49, creatinine 2.29, blood glucose in the 120s. He had ABGs completed today. He is receiving enteral nutrition. Plan is for repeat CT today and from there we'll discuss with family and also follow up with [facility]. Prognosis remains poor at this time. Review of systems: Unable to obtain as patient is intubated PHYSICAL EXAMINATION: GENERAL: This is a 76 year old male who appears stated age. Patient is intubated sedated HEENT: Pupils are round and equally reacting to light. EOMI. No scleral icterus. No conjunctival pallor. Normocephalic, atraumatic. No pharyngeal erythema. No thyromegaly. CARDIOVASCULAR: S1 and S2 present. No murmurs, rubs, or gallops. Tachycardic. PULMONARY: Coarse ronchorous lungs sounds, no wheezing noted. ABDOMEN: Soft, nontender, nondistended, normoactive bowel sounds. No palpable organomegaly. MUSCULOSKELETAL: No joint swelling or deformity. EXTREMITIES: No cyanosis, clubbing, or pedal edema. NEUROLOGICAL: Right-sided weakness 3/5 on admission which had progressed to right sided hemiplegia presently sedated and unable to assess SKIN: No rashes. Assessment and Plan Assessment -Septic shock secondary to urinary tract infection patient has Proteus mirabilis urinary tract infection and also bacteremia with Proteus species. Repeat cultures were obtained and are currently pending. Continues on IV zosyn and infectious disease is following patient closely. Acute ischemic infarct, left parietal lobe : Flaccid paralysis patient is not currently on antiplatelet therapy secondary to significant decrease in platlelet count currently 53 today, DARREN panel is pending. No signs of acute bleed at this time. Repeat CT scan shows evolving stroke without hemorrhagic conversion. Plan for repeat brain CT today. Acute hypoxic respiratory failure now presently intubated secondary to sepsis/possible aspiration, unable to protect airway patient is on assist- control ventilation with 30% FiO2. Sputum culture showing MRSA. Acute kidney injury secondary to acute tubular necrosis secondary to septic shock. Creatinine today 2.29 today nephrology is following. Toxicants of probably secondary to sepsis Acute renal failure secondary to acute tubular necrosis from sepsis elevated troponin secondary to septic shock Hypoglycemia resolved on D5 normal saline Metabolic acidosis secondary to acute kidney injury, lactic acidosis, improving Elevated transaminases, initially negative, possibly from sepsis, today they have normalized, possibly of transplant rejection is low at this time will discuss with the transplant team at [facility], family wishing to pursue transfer to [facility]. Presently mycophenolate is being discontinued because of severe sepsis and the tacrolimus was is being continued and the patient is also on IV steroids to avoid any transplant rejection. Due to liver transplant status and per family request transfer to [facility] is being pursued and awaiting decision to accept. 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 History of hypertension patient is currently on norepinephrine for blood pressure support. Stage 2 sacral decub History of gastroesophageal reflux disease BPH Hyperlipidemia History of old stroke residual weakness on the right side. GI Prophylaxis DVT Prophylaxis subcutaneous heparin Full Code The impression and plan of care has been dictated by Aisha Taylor, Nurse Practitioner as directed. Dr. Harsha MD I have performed a history and physical examination and medical decision making of this patient, discussed the same with the dictator, and agree with the dictators assessment and plan as written, documented as a scribe. Based on total visit time, I have performed more than 50% of this visit. Objective - Vital Signs Vital signs: Vital Signs Temp 98.2 F 08/28/22 07:15 Pulse 73 08/28/22 11:00 Resp 20 08/28/22 10:45 BP 121/56 08/28/22 10:15 Pulse Ox 97 08/28/22 10:45 FiO2 30 08/28/22 10:56 Intake & Output 08/27/22 08/28/22 08/28/22 18:59 06:59 18:59 Intake Total 7324.855 9016.276 0.289 Output Total 1711 785 Balance 4.930 1812.276 0.289 Weight 100.4 kg Intake: IV 39 36 Pressure bag 39 36 Intake, IV Titration 8810.977 9037.276 0.289 Amount Dextrose 5% in Water 1, 750 900 000 ml @ 75 mls/hr IV . [id number] [facility] Rx#:[id number] Dextrose 5%-0.9% NaCl 1, 225 000 ml @ 75 mls/hr IV . [id number] [facility] Rx#:[id number] Norepinephrine 32 mg In 1.930 19.594 0.289 Sodium Chloride 0.9% 218 ml @ 0.03 MCG/KG/MIN 1. 336 mls/hr IV .Q24H [facility] Rx#:[id number] Piperacillin-Tazobactam 3 100 125 .375 gm In Sodium Chloride 0.9% 100 ml @ 25 mls/hr IVPB Q8HR [facility] Rx# :[id number] Vancomycin 1,000 mg In 250 Sodium Chloride 0.9% 250 ml @ 125 mls/hr IVPB ONCE [facility] Rx#:[id number] propofoL 1,000 mg In 100.000 202.682 Empty Bag 1 bag @ 15 MCG/ KG/MIN 8.55 mls/hr IV . [id number] [facility] Rx#:[id number] Tube Feeding 500 664 Other 400 Output: Urine 1710 785 Stool 1 Other: Voiding Method Indwelling Catheter Indwelling Catheter ABP, PAP, CO, CI - Last Documented Arterial Blood Pressure 120/50 - Labs CBC & Chem 7: 08/28/22 03:55 08/28/22 03:55 Labs: Abnormal Lab Results - Last 24 Hours (Table) 08/27/22 08/27/22 08/28/22 Range/Units 18:05 23:42 03:55 RBC (4.30-5.90) m/uL Hgb (13.0-17.5) gm/dL Hct (39.0-53.0) % Plt Count (150-450) k/uL Lymphocytes # (1.0-4.8) k/uL ABG HCO3 (21-25) mmol/L ABG Total CO2 (19-24) mmol/L ABG O2 Saturation (94-97) % Potassium 3.3 L (3.5-5.1) mmol/L Chloride 112 H (98-107) mmol/L BUN 49 H (9-20) mg/dL Creatinine 2.29 H (0.66-1.25) mg/dL Glucose 130 H (74-99) mg/dL POC Glucose (mg/dL) 127 H 119 H (70-110) mg/dL Calcium 7.3 L (8.4-10.2) mg/dL Total Protein 4.2 L (6.3-8.2) g/dL Albumin 2.2 L (3.5-5.0) g/dL 08/28/22 08/28/22 08/28/22 Range/Units 03:55 05:51 05:54 RBC 3.54 L (4.30-5.90) m/uL Hgb 9.5 L (13.0-17.5) gm/dL Hct 30.3 L (39.0-53.0) % Plt Count 53 L (150-450) k/uL Lymphocytes # 0.7 L (1.0-4.8) k/uL ABG HCO3 27 H (21-25) mmol/L ABG Total CO2 28 H (19-24) mmol/L ABG O2 Saturation 98.2 H (94-97) % Potassium (3.5-5.1) mmol/L Chloride (98-107) mmol/L BUN (9-20) mg/dL Creatinine (0.66-1.25) mg/dL Glucose (74-99) mg/dL POC Glucose (mg/dL) 137 H (70-110) mg/dL Calcium (8.4-10.2) mg/dL Total Protein (6.3-8.2) g/dL Albumin (3.5-5.0) g/dL Microbiology - Last 24 Hours (Table) 08/26/22 04:11 Blood Culture - Preliminary Blood No Growth after 48 hours 08/25/22 12:27 Stool Culture - Preliminary Stool 08/23/22 19:48 Blood Culture Gram Stain - Final Blood Blood Culture - Final Proteus mirabilis 08/25/22 13:30 Gram Stain - Preliminary Sputum Sputum Culture - Preliminary Presumptive Staph aureus 08/25/22 10:25 Blood Culture - Preliminary Blood No Growth after 48 hours Assessment and Plan Time with Patient: Less than 30
[2022-08-28] MEDS ORDERED: ERTAPENEM 1 GM in SODIUM CHLORIDE 0.9% 50 ML IVPB SCH (12:45)
[2022-08-28] MEDS ORDERED: ERTAPENEM 500 GM in SODIUM CHLORIDE 0.9% 50 ML IVPB SCH (13:00)
[2022-08-28] MEDS: ERTAPENEM 0.5 GM in SODIUM CHLORIDE 0.9% 50 ML IVPB SCH (14:07)
--- NOTE | 2022-08-28 14:24 | CT ---
EXAMINATION TYPE: CT brain wo con DATE OF EXAM: 08/28/2022 COMPARISON: INDICATION: ams DLP: 1131.4 mGycm, Automated exposure control for dose reduction was used. CONTRAST: None CT of the brain is performed utilizing 3 mm thick sections through the posterior fossa and 3 mm thick sections through the remaining calvarium. Study is performed within 24 hours of arrival to the hosp [facility]. No abnormal hyperdensity is present to suggest an acute intracranial hemorrhage. No mass lesion is evident. There is a large stable hypodensity within the left centrum semiovale compatible with an acute infar ct. No midline shift subfalcine herniation is identified. Significant mass effect on the left lateral ventricle is not identified. Ventricles and sulci are appropriate for the patient age. Mucosal thickening is within the left maxillary sinus 2 scattered mid and anterior left ethmoid air c ells and posterior right frontal sinus. Remaining paranasal sinuses are clear. Mastoid air cells within the [id number] are clear. IMPRESSIONS: 1. Stable posterior left centrum semiovale infarct
[2022-08-28] MEDS: DEXTROSE 5% IN WATER 1,000 ML IV SCH (18:41)
[2022-08-28 18:49] LABS: Glucose,Whole Blood 181 mg/dL (70-110)
[2022-08-28] MEDS: LATANOPROST 0.005% OPHTH DROPS 2.5 ML BTL BOTH EYES SCH (20:46)
[2022-08-28 23:30] LABS: Glucose,Whole Blood 159 mg/dL (70-110)
[2022-08-28] MEDS: LINEZOLID 600 MG in DEXTROSE/WATER 1 300ML.BAG IVPB SCH (23:55)
[2022-08-29] MEDS: DEXTROSE 5% IN WATER 1,000 ML IV SCH (01:55)
[2022-08-29] MEDS: IPRATROPIUM-ALBUTEROL 3 ML NEB INHALATION SCH ×6 (03:43→23:11)
[2022-08-29 04:26] LABS: Basophils % (A) 0 %; Eosinophils % (A) 1 %; HCT 29.8 % (39.0-53.0); HGB 9.1 gm/dL (13.0-17.5); Hypochromasia Slight; Lymphocytes # (A) 0.6 k/uL (1.0-4.8); Lymphocytes % (A) 14 %; MCH 26.3 pg (25.0-35.0); MCHC 30.5 g/dL (31.0-37.0); MCV 86.1 fL (80.0-100.0); Mean Platelet Volume 10.9; Monocytes # (A) 0.2 k/uL (0-1.0); Monocytes % (A) 4 %; Neutrophils # (A) 3.1 k/uL (1.3-7.7); Neutrophils % (A) 77 %; RBC 3.46 m/uL (4.30-5.90); RDW 14.3 % (11.5-15.5); WBC 4.1 k/uL (3.8-10.6)
[2022-08-29 04:29] LABS: Platelet Count 68 k/uL (150-450)
[2022-08-29 04:52] LABS: Calcium 7.9 mg/dL (8.4-10.2); Potassium 3.9 mmol/L (3.5-5.1)
[2022-08-29 05:46] LABS: ABG Base Excess 2.2 mmol/L; ABG HCO3 26 mmol/L (21-25); ABG Oxygen Saturation 98.7 % (94-97); ABG PCO2 40 mmHg (35-45); ABG PH 7.43 (7.35-7.45); ABG PO2 99 mmHg (83-108); ABG TCO2 28 mmol/L (19-24); Allen Test Performed? Yes
[2022-08-29] MEDS ORDERED: Potassium Replacement Protocol 1 EACH MISC MISCELLANE PRN (05:56)
[2022-08-29 06:05] LABS: Glucose,Whole Blood 134 mg/dL (70-110)
[2022-08-29] MEDS: INSULIN ASPART (NovoLOG) 100 UNIT/ML VIAL SQ SCH ×3 (06:19→20:17)
[2022-08-29] MEDS ORDERED: POTASSIUM BICARBONATE/CIT AC 20 MEQ TABLET.EFF NG-TUBE SCH (07:00)
--- NOTE | 2022-08-29 07:35 | P.PN ---
Subjective Progress Note Date: 08/28/22 Principal diagnosis: Bacteremia Patient is a 76-year-old -[place]ux[place] male past medical history significant for liver failure status post liver transplant or redness of his medication presented to hospital generalized weakness did have a positive UA concerning for UTI patient subsequently did have a positive blood culture. On today's evaluation that is 08/28/2022 the patient remains to be afebrile, the patient is hemodynamically stable not requiring any pressor support patient FiO2 is currently stable at 30% no significant purulent secretion through the ET or diarrhea reported by the nursing staff, patient did have a positive sputum culture with MRSA and has received a dose of vancomycin per pulmonary Objective - Vital Signs Vital signs: Vital Signs Temp 98.2 F 08/28/22 07:15 Pulse 75 08/28/22 11:10 Resp 20 08/28/22 10:45 BP 121/56 08/28/22 10:15 Pulse Ox 97 08/28/22 10:45 FiO2 30 08/28/22 10:56 Intake & Output 08/27/22 08/28/22 08/28/22 18:59 06:59 18:59 Intake Total 4444.362 6460.276 56.217 Output Total 1711 785 Balance 4.930 1812.276 56.217 Weight 100.4 kg Intake: IV 39 36 Pressure bag 39 36 Intake, IV Titration 1581.462 3807.276 56.217 Amount Dextrose 5% in Water 1, 750 900 000 ml @ 75 mls/hr IV . [id number] [facility] Rx#:[id number] Dextrose 5%-0.9% NaCl 1, 225 000 ml @ 75 mls/hr IV . [id number] [facility] Rx#:[id number] Norepinephrine 32 mg In 1.930 19.594 4.002 Sodium Chloride 0.9% 218 ml @ 0.03 MCG/KG/MIN 1. 336 mls/hr IV .Q24H [facility] Rx#:[id number] Piperacillin-Tazobactam 3 100 125 .375 gm In Sodium Chloride 0.9% 100 ml @ 25 mls/hr IVPB Q8HR [facility] Rx# :[id number] Vancomycin 1,000 mg In 250 Sodium Chloride 0.9% 250 ml @ 125 mls/hr IVPB [facility] Rx#:[id number] propofoL 1,000 mg In 100.000 202.682 52.215 Empty Bag 1 bag @ 15 MCG/ KG/MIN 8.55 mls/hr IV . [id number] [facility] Rx#:[id number] Tube Feeding 500 664 Other 400 Output: Urine 1710 785 Stool 1 Other: Voiding Method Indwelling Catheter Indwelling Catheter ABP, PAP, CO, CI - Last Documented Arterial Blood Pressure 120/50 - Exam GENERAL DESCRIPTION: An elderly male intubated on the vent RESPIRATORY SYSTEM: Unlabored breathing , decreased breath sounds at bases HEART: S1 S2 regular rate and rhythm , ABDOMEN: Soft , no tenderness EXTREMITIES: No edema feet - Labs CBC & Chem 7: 08/29/22 04:15 08/29/22 04:15 Labs: Abnormal Lab Results - Last 24 Hours (Table) 08/27/22 08/27/22 08/28/22 Range/Units 18:05 23:42 03:55 RBC (4.30-5.90) m/uL Hgb (13.0-17.5) gm/dL Hct (39.0-53.0) % Plt Count (150-450) k/uL Lymphocytes # (1.0-4.8) k/uL ABG HCO3 (21-25) mmol/L ABG Total CO2 (19-24) mmol/L ABG O2 Saturation (94-97) % Potassium 3.3 L (3.5-5.1) mmol/L Chloride 112 H (98-107) mmol/L BUN 49 H (9-20) mg/dL Creatinine 2.29 H (0.66-1.25) mg/dL Glucose 130 H (74-99) mg/dL POC Glucose (mg/dL) 127 H 119 H (70-110) mg/dL Calcium 7.3 L (8.4-10.2) mg/dL Total Protein 4.2 L (6.3-8.2) g/dL Albumin 2.2 L (3.5-5.0) g/dL 08/28/22 08/28/22 08/28/22 Range/Units 03:55 05:51 05:54 RBC 3.54 L (4.30-5.90) m/uL Hgb 9.5 L (13.0-17.5) gm/dL Hct 30.3 L (39.0-53.0) % Plt Count 53 L (150-450) k/uL Lymphocytes # 0.7 L (1.0-4.8) k/uL ABG HCO3 27 H (21-25) mmol/L ABG Total CO2 28 H (19-24) mmol/L ABG O2 Saturation 98.2 H (94-97) % Potassium (3.5-5.1) mmol/L Chloride (98-107) mmol/L BUN (9-20) mg/dL Creatinine (0.66-1.25) mg/dL Glucose (74-99) mg/dL POC Glucose (mg/dL) 137 H (70-110) mg/dL Calcium (8.4-10.2) mg/dL Total Protein (6.3-8.2) g/dL Albumin (3.5-5.0) g/dL 08/28/22 Range/Units 11:16 RBC (4.30-5.90) m/uL Hgb (13.0-17.5) gm/dL Hct (39.0-53.0) % Plt Count (150-450) k/uL Lymphocytes # (1.0-4.8) k/uL ABG HCO3 (21-25) mmol/L ABG Total CO2 (19-24) mmol/L ABG O2 Saturation (94-97) % Potassium (3.5-5.1) mmol/L Chloride (98-107) mmol/L BUN (9-20) mg/dL Creatinine (0.66-1.25) mg/dL Glucose (74-99) mg/dL POC Glucose (mg/dL) 174 H (70-110) mg/dL Calcium (8.4-10.2) mg/dL Total Protein (6.3-8.2) g/dL Albumin (3.5-5.0) g/dL Microbiology - Last 24 Hours (Table) 08/25/22 10:25 Blood Culture - Preliminary Blood No Growth after 72 hours 08/25/22 13:30 Gram Stain - Final Sputum Sputum Culture - Final Methicillin resist S. aureus 08/26/22 04:11 Blood Culture - Preliminary Blood No Growth after 48 hours 08/25/22 12:27 Stool Culture - Preliminary Stool 08/23/22 19:48 Blood Culture Gram Stain - Final Blood Blood Culture - Final Proteus mirabilis Assessment and Plan (1) Bacteremia Current Visit: Yes Status: Acute Code(s): R78.81 - BACTEREMIA SNOMED Code(s): 6967060 (2) UTI (urinary tract infection) Current Visit: No Status: Acute Code(s): N39.0 - URINARY TRACT INFECTION, SITE NOT SPECIFIED SNOMED Code(s): 62601367 Plan: 1patient presented to hospital with abdominal pain and nausea and vomiting in this patient did have a positive UA CT abdominal pelvis did not show any acute abnormality abdominal soft medical examination patient did have a positive UA concerning for symptomatic urinary tract infection likely from enteric gram- negative pathogen, patient subsequently did have slight worsening of his respiratory status and concern for possible aspiration pneumonitis. 2 Patient urine was Proteus which was a sensitive pathogen however blood culture showing ESBL proteus we will discontinue Zosyn and start the patient on treponeme. 3sputum culture positive for MRSA patient with a borderline kidney function high risk of nephrotoxicity from vancomycin we will add Zyvox. Daughter at the bedside multiple questions and concerns were answered Time with Patient: Greater than 30
[2022-08-29] MEDS: TACROLIMUS 0.5 MG CAP PO SCH ×2 (07:46→20:26)
[2022-08-29] MEDS: methylPREDNISolone SOD SUCCI 40 MG/ML 1 ML VIAL IV SCH (07:46)
[2022-08-29] MEDS: CHLORHEXIDINE GLUCONATE 15 ML CUP MUCOUS MEM SCH (07:46)
--- NOTE | 2022-08-29 07:56 | XR ---
EXAMINATION TYPE: XR chest 1V portable DATE OF EXAM: 08/29/2022 COMPARISON: 08/28/2022 HISTORY: Tube placement TECHNIQUE: Single frontal view of the chest is obtained. FINDINGS: ET and NG tube noted. Bilateral infiltrate and pleural effusion with diffuse interstitial pattern. Heart size stable. Chronic rib deformity rib cage. Sizable pneumothorax. Arthropathy shoulde rs. Somewhat nodular density appears likely superficial location as is not present on prior recent ex am. IMPRESSION: Correlate for CHF. Underlying pneumonia not excluded.
--- NOTE | 2022-08-29 08:27 | P.PN ---
Subjective Progress Note Date: 08/29/22 On 08/29/2022, this 76-year-old Afro-Ni[place] male patient is being seen for a follow-up.The patient is a known case of liver transplantation performed at [facility]. 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 The patient is currently in the intensive care unit with septic shock. For now, the patient is intubated on a mechanical ventilator. This morning, he is on a propofol which is running at 30 mcg/kg/m. At the same time, the patient remains on a mechanical ventilator, he is on assist-control mode of mechanical ventilation at the rate of 20 with a tidal volume of 450 and FiO2 of 30% with a PEEP of 5. The lungs gases from this morning show a pH of 7.43 with a pCO2 of 40 and pO2 of 99. The chest x-ray from today is showing adequate positioning of the orotracheal tube. No evidence of any pneumothorax. Orogastric tube was also an adequate location.. The patient has also a left lower lobe consolidation consistent with pneumonia. There is some increased interstitial markings bilaterally. Underlying left-sided pleural effusion cannot be completely ruled out. There is also a triple-lumen catheter in the left subclavian vein this noted. The sputum is positive for MRSA. Nevertheless, the septic shock was essentially due to a gram-negative bacteria with Proteus mirabilis. The Proteus was positive in the blood and in the urine. The patient is currently covered with broad-spectrum antibiotics. The patient is currently on IV Invanz and IV Zyvox. The patient is on IV fluids currently running at KVO. His overall net fluid balance has been 1.8 L over the past 24 hours. He is on pressors and norepinephrine is running at a low-dose and he is still running norepinephrine on enough to maintain his blood pressure. This mo rning, he is off pressors. He is improving in terms of her renal function and a creatinine currently is down to 1.4 with a BUN of 46. Sodium is at 139. Bicarb is 24. The white suppositive 4.1 with a hemoglobin of 9.1 and a platelet count of 68. At the same time, the patient is off immunosuppression. He was on a combination of Prograf and CellCept. Prograf is still on at a dose of 0.5 mg twice a day and CellCept has been discontinued and the patient is receiving IV Solu-Medrol 40 mg every 24 hours. Note that he was on Decadron 0.5 mg every day. He is afebrile. He is receiving enteral feeding for nutritional support and the patient is currently on vital high protein at the rate of 58 mL an hour which is goal. 2 he is also on water flushes 200 mL every 6 hours. I Objective - Vital Signs Vital signs: Vital Signs Temp 99 F 08/29/22 04:00 Pulse 65 08/29/22 07:30 Resp 23 08/29/22 07:00 BP 121/59 08/29/22 07:00 Pulse Ox 99 08/29/22 07:00 FiO2 30 08/29/22 07:17 Intake & Output 08/28/22 08/29/22 08/29/22 18:59 06:59 18:59 Intake Total 1142.558 262.664 3 Output Total 658 1190 85 Balance 484.558 -927.336 -82 Weight 102.4 kg Intake: IV 36 33 3 Pressure bag 36 33 3 Intake, IV Titration 1106.558 229.664 Amount Dextrose 5% in Water 1, 900 75 000 ml @ 75 mls/hr IV . [id number] [facility] Rx#:[id number] Ertapenem 0.5 gm In 50 Sodium Chloride 0.9% 50 ml @ 100 mls/hr IVPB Q24H [facility] Rx#:[id number] Norepinephrine 32 mg In 4.343 1.084 Sodium Chloride 0.9% 218 ml @ 0.03 MCG/KG/MIN 1. 336 mls/hr IV .Q24H [facility] Rx#:[id number] propofoL 1,000 mg In 152.215 153.58 Empty Bag 1 bag @ 15 MCG/ KG/MIN 8.55 mls/hr IV . [id number] [facility] Rx#:[id number] Output: Urine 655 1190 85 Stool 3 Other: Voiding Method Indwelling Catheter Indwelling Catheter # Bowel Movements 1 1 ABP, PAP, CO, CI - Last Documented Arterial Blood Pressure 159/47 - Exam Sedated, with an orally placed endotracheal tube and NG tube. The patient is currently sedated with propofol. HEENT examination is grossly unremarkable. Neck supple. Full range of motion. No adenopathy thyromegaly or neck vein distention. Cardiovascular examination reveals regular rhythm rate. S1-S2 normal. No S3 or S4. No discernible murmur noted. Lungs reveal coarse bilateral breath sounds. No wheezes. No crackles. Abdomen soft, without sounds. No masses or tenderness. Well-healed liver transplant scar. Extremities are intact. No cyanosis or clubbing. Trace edema. Chronic venous stasis changes noted. Skin is without rash or lesion. Neurologic examination cannot be adequately assessed as the patient's currently sedated - Labs CBC & Chem 7: 08/29/22 04:15 08/29/22 04:15 Labs: Abnormal Lab Results - Last 24 Hours (Table) 08/28/22 08/28/22 08/28/22 Range/Units 11:16 18:48 23:28 RBC (4.30-5.90) m/uL Hgb (13.0-17.5) gm/dL Hct (39.0-53.0) % MCHC (31.0-37.0) g/dL Plt Count (150-450) k/uL Lymphocytes # (1.0-4.8) k/uL ABG HCO3 (21-25) mmol/L ABG Total CO2 (19-24) mmol/L ABG O2 Saturation (94-97) % Chloride (98-107) mmol/L BUN (9-20) mg/dL Creatinine (0.66-1.25) mg/dL Glucose (74-99) mg/dL POC Glucose (mg/dL) 174 H 181 H 159 H (70-110) mg/dL Calcium (8.4-10.2) mg/dL 08/29/22 08/29/22 08/29/22 Range/Units 04:15 04:15 05:41 RBC 3.46 L (4.30-5.90) m/uL Hgb 9.1 L (13.0-17.5) gm/dL Hct 29.8 L (39.0-53.0) % MCHC 30.5 L (31.0-37.0) g/dL Plt Count 68 L (150-450) k/uL Lymphocytes # 0.6 L (1.0-4.8) k/uL ABG HCO3 26 H (21-25) mmol/L ABG Total CO2 28 H (19-24) mmol/L ABG O2 Saturation 98.7 H (94-97) % Chloride 109 H (98-107) mmol/L BUN 46 H (9-20) mg/dL Creatinine 1.42 H (0.66-1.25) mg/dL Glucose 130 H (74-99) mg/dL POC Glucose (mg/dL) (70-110) mg/dL Calcium 7.9 L (8.4-10.2) mg/dL 08/29/22 Range/Units 06:03 RBC (4.30-5.90) m/uL Hgb (13.0-17.5) gm/dL Hct (39.0-53.0) % MCHC (31.0-37.0) g/dL Plt Count (150-450) k/uL Lymphocytes # (1.0-4.8) k/uL ABG HCO3 (21-25) mmol/L ABG Total CO2 (19-24) mmol/L ABG O2 Saturation (94-97) % Chloride (98-107) mmol/L BUN (9-20) mg/dL Creatinine (0.66-1.25) mg/dL Glucose (74-99) mg/dL POC Glucose (mg/dL) 134 H (70-110) mg/dL Calcium (8.4-10.2) mg/dL Microbiology - Last 24 Hours (Table) 08/26/22 04:11 Blood Culture - Preliminary Blood No Growth after 72 hours 08/25/22 12:27 Stool Culture - Final Stool 08/25/22 10:25 Blood Culture - Preliminary Blood No Growth after 72 hours 08/25/22 13:30 Gram Stain - Final Sputum Sputum Culture - Final Methicillin resist S. aureus Assessment and Plan Plan: Septic shock, with secondary Hypotension, secondary to gram-negative sepsis, with Proteus mirabilis bacteremia and probable Proteus mirabilis urinary tract infection. This morning, the patient is hemodynamically stable on no pressors. The patient is on a combination of IV Invanz and Zyvox Left lower lobe pneumonia secondary to MRSA, currently on Zyvox Status post intubation and mechanical ventilation, 08/25/2022, as patient was unable to protect his airway. 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 Most recent CAT scan of the brain done on 08/28/2022 showed a stable posterior left centrum semiovale overall infarct. Neurology is on the case, the patient presented with an acute stroke over left parietal with worsening of the right-sided weakness. He did have right hemiplegia, dysarthria and right facial weakness. No TPA was given at time of admission as the timing was unknown and the patient was outside the window. His follow-up CAT scan showed evolution of the left parietal/frontal stroke. This is considered to be possibly embolic and the exact etiology is not clear. The patient subsequently became encephalopathic related to underlying sepsis. History of liver transplantation, at the [facility]. 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 History of gastroesophageal reflux disease. History of BPH. History of hyperlipidemia. Carotid artery stenosis 50-70% bilateral ICA on carotid Dopplers Acute thrombocytopenia secondary to sepsis History of an old CVA with possible weakness in the lower extremities and the patient was able to ambulate at baseline Acute hepatic dysfunction / transaminitis, recovered Plan Overall condition is stable Continue vent support without any ventilator changes for today Stop the sedation and assess the patient's mental status. Check weaning parameters and readiness to wean May give the patient is point his breathing trial of the patient shows adequate mentation and adequate weaning parameters Renal function continues to improve Keep same antibiotic coverage Keep Prograf then discontinue the CellCept Continue the IV Solu-Medrol Hold enteral feeding if the patient undergoes a weaning trial We'll continue to follow this patient along with the rest of the consultants No antiplatelet agents for now due to his underlying thrombocytopenia No heparin and the hit antibodies are in progress Vascular surgery did not think that the patient is a surgical candidate for the carotid artery occlusion Patient is on statins for hyperlipidemia Critical care evaluation more than 30 minutes Time with Patient: Greater than 30
[2022-08-29 08:57] LABS: Glucose,Whole Blood 147 mg/dL (70-110)
--- NOTE | 2022-08-29 09:10 | P.PN ---
Subjective Patient is seen for follow-up for acute kidney injury. Patient is currently on the vent. Levo fed has been off. Maintained on D5W at 75 mL an hour. Good urine output Serum creatinine down to 1.4 mg/dL. Objective - Vital Signs Vital signs: Vital Signs Temp 99 F 08/29/22 04:00 Pulse 65 08/29/22 07:30 Resp 23 08/29/22 07:00 BP 121/59 08/29/22 07:00 Pulse Ox 99 08/29/22 07:00 FiO2 30 08/29/22 07:17 Intake & Output 08/28/22 08/29/22 08/29/22 18:59 06:59 18:59 Intake Total 1142.558 262.664 3 Output Total 658 1190 85 Balance 484.558 -927.336 -82 Weight 102.4 kg Intake: IV 36 33 3 Pressure bag 36 33 3 Intake, IV Titration 1106.558 229.664 Amount Dextrose 5% in Water 1, 900 75 000 ml @ 75 mls/hr IV . [id number] [facility] Rx#:[id number] Ertapenem 0.5 gm In 50 Sodium Chloride 0.9% 50 ml @ 100 mls/hr IVPB Q24H [facility] Rx#:[id number] Norepinephrine 32 mg In 4.343 1.084 Sodium Chloride 0.9% 218 ml @ 0.03 MCG/KG/MIN 1. 336 mls/hr IV .Q24H [facility] Rx#:[id number] propofoL 1,000 mg In 152.215 153.58 Empty Bag 1 bag @ 15 MCG/ KG/MIN 8.55 mls/hr IV . [id number] [facility] Rx#:[id number] Output: Urine 655 1190 85 Stool 3 Other: Voiding Method Indwelling Catheter Indwelling Catheter # Bowel Movements 1 1 ABP, PAP, CO, CI - Last Documented Arterial Blood Pressure 159/47 - Exam Patient is sedated. On the ventilator Bilateral breath sounds are heard Abdomen is soft Examination lower extremities shows edema 1+ bilaterally and edema in the upper extremities as well - Labs CBC & Chem 7: 08/29/22 04:15 08/29/22 04:15 Labs: Abnormal Lab Results - Last 24 Hours (Table) 08/27/22 08/28/22 08/28/22 Range/Units 11:43 11:16 18:48 RBC (4.30-5.90) m/uL Hgb (13.0-17.5) gm/dL Hct (39.0-53.0) % MCHC (31.0-37.0) g/dL Plt Count (150-450) k/uL Lymphocytes # (1.0-4.8) k/uL ABG HCO3 (21-25) mmol/L ABG Total CO2 (19-24) mmol/L ABG O2 Saturation (94-97) % Chloride (98-107) mmol/L BUN (9-20) mg/dL Creatinine (0.66-1.25) mg/dL Glucose (74-99) mg/dL POC Glucose (mg/dL) 147 H 174 H 181 H (70-110) mg/dL Calcium (8.4-10.2) mg/dL 08/28/22 08/29/22 08/29/22 Range/Units 23:28 04:15 04:15 RBC 3.46 L (4.30-5.90) m/uL Hgb 9.1 L (13.0-17.5) gm/dL Hct 29.8 L (39.0-53.0) % MCHC 30.5 L (31.0-37.0) g/dL Plt Count 68 L (150-450) k/uL Lymphocytes # 0.6 L (1.0-4.8) k/uL ABG HCO3 (21-25) mmol/L ABG Total CO2 (19-24) mmol/L ABG O2 Saturation (94-97) % Chloride 109 H (98-107) mmol/L BUN 46 H (9-20) mg/dL Creatinine 1.42 H (0.66-1.25) mg/dL Glucose 130 H (74-99) mg/dL POC Glucose (mg/dL) 159 H (70-110) mg/dL Calcium 7.9 L (8.4-10.2) mg/dL 08/29/22 08/29/22 Range/Units 05:41 06:03 RBC (4.30-5.90) m/uL Hgb (13.0-17.5) gm/dL Hct (39.0-53.0) % MCHC (31.0-37.0) g/dL Plt Count (150-450) k/uL Lymphocytes # (1.0-4.8) k/uL ABG HCO3 26 H (21-25) mmol/L ABG Total CO2 28 H (19-24) mmol/L ABG O2 Saturation 98.7 H (94-97) % Chloride (98-107) mmol/L BUN (9-20) mg/dL Creatinine (0.66-1.25) mg/dL Glucose (74-99) mg/dL POC Glucose (mg/dL) 134 H (70-110) mg/dL Calcium (8.4-10.2) mg/dL Microbiology - Last 24 Hours (Table) 08/26/22 04:11 Blood Culture - Preliminary Blood No Growth after 72 hours 08/25/22 12:27 Stool Culture - Final Stool 08/25/22 10:25 Blood Culture - Preliminary Blood No Growth after 72 hours 08/25/22 13:30 Gram Stain - Final Sputum Sputum Culture - Final Methicillin resist S. aureus Assessment and Plan Assessment: 1. Acute kidney injury secondary to ATN secondary to septic shock and contrast- induced acute kidney injury. Patient received IV contrast on 08/23/2022. Cr eatinine was 1.74 on admission and peaked at 2.78 - 1.4 today. Nonoliguric. No hydronephrosis noted on CAT scan. 2. Chronic kidney disease stage IIIa with baseline creatinine in the range of 1.2-1.5 secondary to nephrosclerosis and long-term calcineurin inhibitor use. 3. 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 4. Metabolic acidosis secondary to acute kidney injury, lactic acidosis and IV fluids. Status post bicarb drip. 5. 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 Neurology following. 6. Septic shock secondary to Proteus UTI and bacteremia on antibiotics. Status post pressors. 7. Hyponatremia currently maintained on D5W and improved. Patient is also receiving free water flushes down his feeding tube. Plan: Recommend to discontinue the D5W Continue with free water flushes Repeat labs in a.m.
[2022-08-29] MEDS: NOREPINEPHRINE 32 MG in SODIUM CHLORIDE 0.9% 218 ML IV SCH ×2 (11:30→22:13)
[2022-08-29] MEDS: LINEZOLID 600 MG in DEXTROSE/WATER 1 300ML.BAG IVPB SCH (11:50)
[2022-08-29 12:04] LABS: Glucose,Whole Blood 178 mg/dL (70-110)
[2022-08-29] MEDS: ERTAPENEM 0.5 GM in SODIUM CHLORIDE 0.9% 50 ML IVPB SCH (14:09)
--- NOTE | 2022-08-29 15:30 | P.PN ---
Subjective Progress Note Date: 08/29/22 76-year-old the male came in with the comments of generalized weakness and a nonspecific abdominal pain diffuse. Patient the overall clinical condition gotten worse patient became more septic patient is on immunosuppressive therapy with tacrolimus, mycophenolate. Patient was subsequently admitted to ICU. Patient neurological status also has worsened because of which the it was believed the patient has stroke. Patient does have chronic right-sided weakness with strength of 3/5 which is his baseline. Patient underwent multiple imaging studies including her CT angios the head and neck as well as a CT of the head which showed acute ischemic stroke over the left parietal lobe with worsening weakness on the right side. Patient continued to be on antiplatelet therapy. Patient urine cultures came back positive for Proteus mirabilis and patient blood cultures are now positive for Proteus species possible source of infection being urinary tract infection this Proteus species is pansensitive to multiple antibiotics patient is presently on Zosyn. Patient liver enzymes on admission were within normal limits patient is a liver transplant patient patient liver enzymes went up minimally to 284 and ALP of 81 this is probably secondary to sepsis and patient has acute tumor necrosis secondary to sepsis with worsening creatinine of around 2.8 baseline creatinine of around 1. Patient was encephal opathic EEG was ordered.. Today morning patient is found to be hypoxic any arterial blood gases after which patient was intubated patient is presently on 100% FiO2 assist control ventilation with PEEP of 5. Patient with the has troponin of 0.49 secondary to sepsis. 08/26/2022 Patient continues to be monitored closely in the intensive care unit. Continues to be intubated and on mechanical ventilator with FiO2 of 40% with oxygen saturation of 100%, fever is improving currently 97.6. Blood pressure 106/60 which he has been continued on vasopressor support. Continues on propofol for sedation. Current antibiotic coverage of IV zosyn for proteus miribilis UTI and bacteremia. Infectious disease following. Cellcept remains on hold. Patient was able to receive prograf through NG tube today. Case was discussed with liver transplant team yesterday. Patient did have repeat brain CT completed yesterday showing evolving stroke left parietal/left front. No evidence for hemorrhagic conversion. Neurology following. Patient will be started on nutritional feeds today. As of yesterday family was undecided about pursuing transfer to another facility. They would still like to pursue transfer to [facility] [place]. Did speak with Dr. Espinoza at [facility] [place] yesterday and CT imaging was sent over at request of physician to review. Awaiting status update from [facility] transfer team regarding decision to accept. Family is aware of pending status as of yesterday with no new updates yet today. Labs today showing a white count of 12.6, platelet count of 93, sodium 142, potassium 4.4, BUN 31, creatinine 2.68, blood glucose 200s. AST 147, ALT 69, alk phos 124. 08/27/2022 Patient evaluated today in intensive care unit currently intubated on mechanical ventilator with FiO2 of 40%. He has remained afebrile. Currently maintaining blood pressures 130/60s off of pressor support. He continues to be sedated with propofol. Today he is responsive to painful stimulation of the right hand with minimal eye opening however continues to be drowsy, and from a neurological standpoint overall prognosis is poor. Plan today is to wean sedation and repeat brain CT if no neurological improvement. He is also continued on IV zosyn for proteus UTI and bacteremia. Repeat blood cultures are currently pending at this time, sputum culture is also pending. Continues on D5 normal saline at 75 mls per hour and urine output is about 675 mls in the last 24 hours. Labs today are showing sodium level of 145, potassium 3.9, BUN 42, creatinine 2.56, blood glucose in the 200s, calcium 6.7, magnesium 2.3, liver enzymes are continuing to improve AST 66, ALT 50, alk phos 82. Remains on tacrolimus and IV solumedrol. Platelet count has continued to drop currently now 49, hgb of 10.5, white count 4.6. Fibrinogen, PT/INR, pTT within normal limits. Hematology consultation requested for further investigation and will recommend to hold off on heparin subcutaneous for now. Noted that patient was on single antiplatelet therapy for acute evolving ischemic infarct and aspirin is currently being held as well now. Chest xray today showing Left lower lobe infiltrate. For now [facility] [place] transfer pending this was done for family request. have not heard back if physician has accepted. 08/28/2022 Patient is evaluated in intensive care unit today. Pending return phone call from [facility] transfer regarding acceptance, the physician Dr. 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 Patient repeat chest x-ray today showing possible atypical pulmonary edema with left lower lobe pneumonia remains within the differential. Sputum cultures positive for MRSA, repeat blood cultures are pending so far. Patient continues on the Zosyn and received a dose of IV vancomycin. Infectious disease is following patient closely. Continues on IV Solu-Medrol, he is currently maintained on norepinephrine at 0.01 mcgs, he is receiving propofol for sedation. IV fluids are infusing D5 in water at 75 mls per hour. Patient remains afebrile, heart rate 73, blood pressure 121/56, 97% oxygen saturation on the mechanical ventilator of FiO2 30%. Labs today are halley wing a white count of 3.9, hemoglobin 9.5, platelet count of 53, potassium 3.3, BUN 49, creatinine 2.29, blood glucose in the 120s. He had ABGs completed today. He is receiving enteral nutrition. Plan is for repeat CT today and from there we'll discuss with family and also follow up with [facility] [place]. Prognosis remains poor at this time. 08/29/2022 Patient continues to be monitored closely in intensive care unit. He had chest xray today showing possible congestive heart failure with pneumonia not e xcluded. Repeat brain CT showing stable infarct posterior left centrum semiovale infarct. Patient has been extubated today. Currently on sedation holiday. Currently afebrile, heart rate 72, blood pressure 128/48. Maintaining oxygen saturations on 2L nasal cannula at 98%. Antibiotics have been adjusted by infectious disease. On IV linezolid and IV ertapenem. He has been weaned off of levophed. Continues on IV steroids. Labs today showing white count 4.1, hgb 9.1, BUN 46, creatinine 1.42, glucose 130s. Chest xray will be repeated tomorrow. Plan to continue monitoring and evaluate defecits. Family updated that Dr. Rosas with [facility] has denied patient for transfer to [facility]. Review of systems: Unable to obtain as patient is intubated PHYSICAL EXAMINATION: GENERAL: This is a 76 year old male who appears stated age. Patient is being monitored in intensive care unit, lethargic. Extubated. HEENT: Pupils are round and equally reacting to light. EOMI. No scleral icterus. No conjunctival pallor. Normocephalic, atraumatic. No pharyngeal erythema. No thyromegaly. CARDIOVASCULAR: S1 and S2 present. No murmurs, rubs, or gallops. Tachycardic. PULMONARY: Coarse ronchorous lungs sounds, no wheezing noted. ABDOMEN: Soft, nontender, nondistended, normoactive bowel sounds. No palpable organomegaly. MUSCULOSKELETAL: No joint swelling or deformity. EXTREMITIES: No cyanosis, clubbing, or pedal edema. NEUROLOGICAL: Right-sided weakness 3/5 on admission which had progressed to right sided hemiplegia presently sedated and unable to assess SKIN: No rashes. Assessment and Plan Assessment -Septic shock secondary to urinary tract infection patient has Proteus mirabilis urinary tract infection and also bacteremia with Proteus species. Repeat cultures were obtained and are currently pending. Continues on IV zosyn and infectious disease is following patient closely. Acute ischemic infarct, left centrum semiovale, resumed on aspirin therapy will monitor platelets at this time. Acute hypoxic respiratory failure secondary to sepsis/possible aspiration patient is currently extubated on 2L nasal cannula Acute kidney injury secondary to acute tubular necrosis secondary to septic shock. Creatinine today 1.42 today nephrology is following. Toxicants of probably secondary to sepsis Acute renal failure secondary to acute tubular necrosis from sepsis elevated troponin secondary to septic shock Hypoglycemia resolved on D5 normal saline Metabolic acidosis secondary to acute kidney injury, lactic acidosis, improving Elevated transaminases, initially negative, possibly from sepsis which they have now normalized. 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 [facility] has denied patient for transfer to [facility]. History of hypertension patient is currently normotensive weaned off of pressor support Stage 2 sacral decub History of gastroesophageal reflux disease BPH Hyperlipidemia History of old stroke residual weakness on the right side. GI Prophylaxis DVT Prophylaxis subcutaneous heparin Full Code The impression and plan of care has been dictated by Aisha Taylor, Nurse Practitioner as directed. Dr. Harsha MD I have performed a history and physical examination and medical decision making of this patient, discussed the same with the dictator, and agree with the dictators assessment and plan as written, documented as a scribe. Based on total visit time, I have performed more than 50% of this visit. Objective - Vital Signs Vital signs: Vital Signs Temp 98.5 F 08/29/22 12:00 Pulse 72 08/29/22 15:16 Resp 21 08/29/22 13:45 BP 108/44 08/29/22 10:15 Pulse Ox 97 08/29/22 13:45 FiO2 30 08/29/22 12:49 Intake & Output 08/28/22 08/29/22 08/29/22 18:59 06:59 18:59 Intake Total 1142.558 262.664 460.030 Output Total 658 1190 580 Balance 484.558 -927.336 -119.970 Weight 102.4 kg Intake: IV 36 33 113 .9 KVO 95 Pressure bag 36 33 18 Intake, IV Titration 1106.558 229.664 289.030 Amount Dextrose 5% in Water 1, 900 75 75 000 ml @ 75 mls/hr IV . [id number] TAMARA Rx#:[id number] Ertapenem 0.5 gm In 50 Sodium Chloride 0.9% 50 ml @ 100 mls/hr IVPB Q24H TAMARA Rx#:[id number] Linezolid 600 mg In 150 Dextrose/Water 1 300ml. bag @ 150 mls/hr IVPB Q12HR@0000,1200 TAMARA Rx#: [id number] Norepinephrine 32 mg In 4.343 1.084 Sodium Chloride 0.9% 218 ml @ 0.03 MCG/KG/MIN 1. 336 mls/hr IV .Q24H TAMARA Rx#:[id number] propofoL 1,000 mg In 152.215 153.58 64.030 Empty Bag 1 bag @ 15 MCG/ KG/MIN 8.55 mls/hr IV . [id number] TAMARA Rx#:[id number] Tube Feeding 58 Output: Urine 655 1190 580 Stool 3 Other: Voiding Method Indwelling Catheter Indwelling Catheter Indwelling Catheter # Bowel Movements 1 1 1 ABP, PAP, CO, CI - Last Documented Arterial Blood Pressure 128/48 - Labs CBC & Chem 7: 08/29/22 04:15 08/29/22 04:15 Labs: Abnormal Lab Results - Last 24 Hours (Table) 08/27/22 08/28/22 08/28/22 Range/Units 11:43 18:48 23:28 RBC (4.30-5.90) m/uL Hgb (13.0-17.5) gm/dL Hct (39.0-53.0) % MCHC (31.0-37.0) g/dL Plt Count (150-450) k/uL Lymphocytes # (1.0-4.8) k/uL ABG HCO3 (21-25) mmol/L ABG Total CO2 (19-24) mmol/L ABG O2 Saturation (94-97) % Chloride (98-107) mmol/L BUN (9-20) mg/dL Creatinine (0.66-1.25) mg/dL Glucose (74-99) mg/dL POC Glucose (mg/dL) 147 H 181 H 159 H (70-110) mg/dL Calcium (8.4-10.2) mg/dL 08/29/22 08/29/22 08/29/22 Range/Units 04:15 04:15 05:41 RBC 3.46 L (4.30-5.90) m/uL Hgb 9.1 L (13.0-17.5) gm/dL Hct 29.8 L (39.0-53.0) % MCHC 30.5 L (31.0-37.0) g/dL Plt Count 68 L (150-450) k/uL Lymphocytes # 0.6 L (1.0-4.8) k/uL ABG HCO3 26 H (21-25) mmol/L ABG Total CO2 28 H (19-24) mmol/L ABG O2 Saturation 98.7 H (94-97) % Chloride 109 H (98-107) mmol/L BUN 46 H (9-20) mg/dL Creatinine 1.42 H (0.66-1.25) mg/dL Glucose 130 H (74-99) mg/dL POC Glucose (mg/dL) (70-110) mg/dL Calcium 7.9 L (8.4-10.2) mg/dL 08/29/22 08/29/22 Range/Units 06:03 12:02 RBC (4.30-5.90) m/uL Hgb (13.0-17.5) gm/dL Hct (39.0-53.0) % MCHC (31.0-37.0) g/dL Plt Count (150-450) k/uL Lymphocytes # (1.0-4.8) k/uL ABG HCO3 (21-25) mmol/L ABG Total CO2 (19-24) mmol/L ABG O2 Saturation (94-97) % Chloride (98-107) mmol/L BUN (9-20) mg/dL Creatinine (0.66-1.25) mg/dL Glucose (74-99) mg/dL POC Glucose (mg/dL) 134 H 178 H (70-110) mg/dL Calcium (8.4-10.2) mg/dL Microbiology - Last 24 Hours (Table) 08/25/22 10:25 Blood Culture - Preliminary Blood No Growth after 96 hours 08/26/22 04:11 Blood Culture - Preliminary Blood No Growth after 72 hours 08/25/22 12:27 Stool Culture - Final Stool Assessment and Plan Time with Patient: Less than 30
[2022-08-29 18:45] LABS: Glucose,Whole Blood 117 mg/dL (70-110)
--- NOTE | 2022-08-29 18:59 | XR ---
EXAMINATION TYPE: XR chest 1V portable DATE OF EXAM: 08/29/2022 COMPARISON: Today HISTORY: Tube placement TECHNIQUE: Single view FINDINGS: There is a left subclavian catheter with tip in the superior vena cava. There is nasogastri c tube in the stomach. There is airspace infiltrate left lower lobe. There is mild pulmonary vascular congestion. Thoracic aorta is atheromatous. IMPRESSION: There is some left lower lobe pneumonia which is the same or slightly worse than exam thi s morning. There is likely congestive heart failure without change.
[2022-08-29] MEDS: CLOPIDOGREL 75 MG TAB PO SCH (20:26)
[2022-08-29] MEDS: HEPARIN SODIUM,PORCINE/PF 5,000 UNIT/0.5 ML SYRINGE SQ SCH (20:27)
[2022-08-29] MEDS: LATANOPROST 0.005% OPHTH DROPS 2.5 ML BTL BOTH EYES SCH (20:39)
[2022-08-29 23:56] LABS: Glucose,Whole Blood 89 mg/dL (70-110)
[2022-08-30] MEDS: INSULIN ASPART (NovoLOG) 100 UNIT/ML VIAL SQ SCH ×4 (00:01→18:21)
[2022-08-30] MEDS: LINEZOLID 600 MG in DEXTROSE/WATER 1 300ML.BAG IVPB SCH ×2 (00:04→12:44)
[2022-08-30] MEDS: IPRATROPIUM-ALBUTEROL 3 ML NEB INHALATION SCH ×5 (03:09→21:33)
[2022-08-30 05:26] LABS: Glucose,Whole Blood 93 mg/dL (70-110)
[2022-08-30 05:35] LABS: Basophils % (A) 0 %; Eosinophils # (A) 0.1 k/uL (0-0.7); Eosinophils % (A) 1 %; HCT 29.7 % (39.0-53.0); HGB 9.5 gm/dL (13.0-17.5); Hypochromasia Moderate; Lymphocytes # (A) 0.9 k/uL (1.0-4.8); Lymphocytes % (A) 19 %; MCH 27.7 pg (25.0-35.0); MCV 86.6 fL (80.0-100.0); Mean Platelet Volume 9.3; Monocytes # (A) 0.2 k/uL (0-1.0); Monocytes % (A) 5 %; Neutrophils # (A) 3.5 k/uL (1.3-7.7); Neutrophils % (A) 71 %; RBC 3.44 m/uL (4.30-5.90); RDW 13.9 % (11.5-15.5); WBC 4.9 k/uL (3.8-10.6)
[2022-08-30 05:43] LABS: Calcium 8.3 mg/dL (8.4-10.2)
[2022-08-30 06:12] LABS: Platelet Count 144 k/uL (150-450)
[2022-08-30 07:08] LABS: Albumin 2.4 g/dL (3.5-5.0); Total Bilirubin 0.6 mg/dL (0.2-1.3); Total Protein 4.5 g/dL (6.3-8.2)
--- NOTE | 2022-08-30 08:10 | P.PN ---
Subjective Progress Note Date: 08/30/22 On 08/29/2022, this 76-year-old Afro[place] male patient is being seen for a follow-up.The patient is a known case of liver transplantation performed at [facility]. 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 The patient is currently in the intensive care unit with septic shock. For now, the patient is intubated on a mechanical ventilator. This morning, he is on a propofol which is running at 30 mcg/kg/m. At the same time, the patient remains on a mechanical ventilator, he is on assist-control mode of mechanical ventilation at the rate of 20 with a tidal volume of 450 and FiO2 of 30% with a PEEP of 5. The lungs gases from this morning show a pH of 7.43 with a pCO2 of 40 and pO2 of 99. The chest x-ray from today is showing adequate positioning of the orotracheal tube. No evidence of any pneumothorax. Orogastric tube was also an adequate location.. The patient has also a left lower lobe consolidation consistent with pneumonia. There is some increased interstitial markings bilaterally. Underlying left-sided pleural effusion cannot be completely ruled out. There is also a triple-lumen catheter in the left subclavian vein this noted. The sputum is positive for MRSA. Nevertheless, the septic shock was essentially due to a gram-negative bacteria with Proteus mirabilis. The Proteus was positive in the blood and in the urine. The patient is currently covered with broad-spectrum antibiotics. The patient is currently on IV Invanz and IV Zyvox. The patient is on IV fluids currently running at KVO. His overall net fluid balance has been 1.8 L over the past 24 hours. He is on pressors and norepinephrine is running at a low-dose and he is still running norepinephrine on enough to maintain his blood pressure. This mo rning, he is off pressors. He is improving in terms of her renal function and a creatinine currently is down to 1.4 with a BUN of 46. Sodium is at 139. Bicarb is 24. The white suppositive 4.1 with a hemoglobin of 9.1 and a platelet count of 68. At the same time, the patient is off immunosuppression. He was on a combination of Prograf and CellCept. Prograf is still on at a dose of 0.5 mg twice a day and CellCept has been discontinued and the patient is receiving IV Solu-Medrol 40 mg every 24 hours. Note that he was on Decadron 0.5 mg every day. He is afebrile. He is receiving enteral feeding for nutritional support and the patient is currently on vital high protein at the rate of 58 mL an hour which is goal. 2 he is also on water flushes 200 mL every 6 hours. I On today's evaluation of 08/30/2022, the patient is extubated. The patient weaned off the mechanical ventilator yesterday without any major difficulties and the patient was extubated again without any major difficulties and currently is on 2 L of oxygen by nasal cannula. His breathing is nonlabored. Postextubation, NG tube was kept in place and the patient has no ability to swallow post his ischemic infarcts. He continues to have neurological deficits bilaterally. Obviously the right side is weaker than the left side. There is bilateral weakness with the right upper and right lower extremity being extre blanca weak compared to the left. The patient also has a weak cough, some mild facial asymmetry is also seen. Pupils are equally reactive to light. No seizure activity. Price catheter in place. Hemodynamically stable. Chest x- ray showing persistent left lower lobe pulmonary infiltrate consistent with pneumonia. He is afebrile. His platelet counts improved and currently the level is up to 144. The patient can be started on antiplatelet agents. NG tube is in place. Output is nonbloody. The white cell cause of 4.9 with a hemoglobin of 9.5 and a platelet of 144. Sodium is 138 and a BUN is 43 with a creatinine of 1.04 and the patient has also recover from acute kidney injury. Fluid is in the form of 0.9 at KVO. He is receiving enteral feeding for nutritional support in the form of vital high protein at the rate of 29 mL an hour. Objective - Vital Signs Vital signs: Vital Signs Temp 97.8 F 08/30/22 04:00 Pulse 70 08/30/22 07:16 Resp 13 08/30/22 07:00 BP 110/55 08/30/22 07:00 Pulse Ox 97 08/30/22 07:06 FiO2 30 08/29/22 12:49 Intake & Output 08/29/22 08/30/22 08/30/22 18:59 06:59 18:59 Intake Total 648.030 789 Output Total 1140 1820 Balance -491.970 -1031 Weight 102.4 kg 109 kg Intake: IV 251 299 .9 KVO 215 260 Pressure bag 36 39 Intake, IV Titration 339.030 Amount Dextrose 5% in Water 1, 75 000 ml @ 75 mls/hr IV . [id number] [facility]ARA Rx#:[id number] Ertapenem 0.5 gm In 50 Sodium Chloride 0.9% 50 ml @ 100 mls/hr IVPB Q24H [facility]ARA Rx#:[id number] Linezolid 600 mg In 150 Dextrose/Water 1 300ml. bag @ 150 mls/hr IVPB Q12HR@0000,1200 [facility]ARA Rx#: [id number] propofoL 1,000 mg In 64.030 Empty Bag 1 bag @ 15 MCG/ KG/MIN 8.55 mls/hr IV . [id number] [facility]AMARA Rx#:[id number] Tube Feeding 58 290 Other 200 Output: Urine 1140 1545 Stool 275 Other: Voiding Method Indwelling Catheter Indwelling Catheter # Bowel Movements 1 ABP, PAP, CO, CI - Last Documented Arterial Blood Pressure 154/47 - Exam , Following simple commands, profoundly weak, NG tube is in place, HEENT examination is grossly unremarkable. Neck supple. Full range of motion. No adenopathy thyromegaly or neck vein distention. Cardiovascular examination reveals regular rhythm rate. S1-S2 normal. No S3 or S4. No discernible murmur noted. Lungs reveal coarse bilateral breath sounds. No wheezes. No crackles. Abdomen soft, without sounds. No masses or tenderness. Well-healed liver transplant scar. Extremities are intact. No cyanosis or clubbing. Trace edema. Chronic venous stasis changes noted. Skin is without rash or lesion. Neurologic examination shows facial asymmetry, pupils are equal and reactive to light, there is pupillary which is around 2-3 mm in size, sluggishly reactive to light, no nystagmus, no preferential gaze, slight facial droop on the left, motor weakness bilaterally 1 out of 5 on the right and about a 5 on the left. No Babinski. No clonus. Reflexes are diminished in all 4 extremities. No seizure activity. - Labs CBC & Chem 7: 08/30/22 05:20 08/30/22 05:20 Labs: Abnormal Lab Results - Last 24 Hours (Table) 08/27/22 08/29/22 08/29/22 Range/Units 11:43 12:02 18:44 RBC (4.30-5.90) m/uL Hgb (13.0-17.5) gm/dL Hct (39.0-53.0) % Plt Count (150-450) k/uL Lymphocytes # (1.0-4.8) k/uL BUN (9-20) mg/dL POC Glucose (mg/dL) 147 H 178 H 117 H (70-110) mg/dL Calcium (8.4-10.2) mg/dL Total Protein (6.3-8.2) g/dL Albumin (3.5-5.0) g/dL 08/30/22 08/30/22 Range/Units 05:20 05:20 RBC 3.44 L (4.30-5.90) m/uL Hgb 9.5 L (13.0-17.5) gm/dL Hct 29.7 L (39.0-53.0) % Plt Count 144 L D (150-450) k/uL Lymphocytes # 0.9 L (1.0-4.8) k/uL BUN 43 H (9-20) mg/dL POC Glucose (mg/dL) (70-110) mg/dL Calcium 8.3 L (8.4-10.2) mg/dL Total Protein 4.5 L (6.3-8.2) g/dL Albumin 2.4 L (3.5-5.0) g/dL Microbiology - Last 24 Hours (Table) 08/26/22 04:11 Blood Culture - Preliminary Blood No Growth after 96 hours 08/25/22 10:25 Blood Culture - Preliminary Blood No Growth after 96 hours Assessment and Plan Plan: Septic shock, with secondary Hypotension, secondary to gram-negative sepsis, with Proteus mirabilis bacteremia and probable Proteus mirabilis urinary tract infection. The patient is hemodynamically stable on no pressors. The patient is on a combination of IV Invanz and Zyvox Left lower lobe pneumonia secondary to MRSA, currently on Zyvox mild chest x-ray is unchanged and the patient was extubated on 08/29/2022 Status post intubation and mechanical ventilation, 08/25/2022, as patient was unable to protect his airway. Extubated on 08/29/2022 Acute ischemic infarct, left parietal lobe, which has evolved. Most recent CAT scan of the brain done on 08/28/2022 showed a stable posterior left centrum se miovale overall infarct. Neurology is on the case, the patient presented with an acute stroke over left parietal with worsening of the right-sided weakness. He did have right hemiplegia, dysarthria and right facial weakness. No TPA was given at time of admission as the timing was unknown and the patient was outside the window. His follow-up CAT scan showed evolution of the left parietal/fronta l stroke. This is considered to be possibly embolic and the exact etiology is not clear. The patient subsequently became encephalopathic related to underlying sepsis. Currently extubated, obvious neurologic deficits with poor swallow, poor cough, motor weakness bilaterally more so on the right. Negative History of liver transplantation, at the [facility]. Surgery was done for an underlying cryptogenic liver cirrhosis Acute kidney injury, recovered Lactic acidosis, recovered History of hypertension. History of gastroesophageal reflux disease. History of BPH. History of hyperlipidemia. Carotid artery stenosis 50-70% bilateral ICA on carotid Dopplers Acute thrombocytopenia secondary to sepsis, improved History of an old CVA with possible weakness in the lower extremities and the patient was able to ambulate at baseline Acute hepatic dysfunction / transaminitis, recovered Diarrhea with FMS and a negative c diff, rule out antibiotic induced Plan Overall condition is stable Patient is extubated No sedation Keep NG tube in place Start aspirin 81 mg by mouth daily and plavix Solved with neurology regarding the mental status and the need for another CAT scan Stop the sedation and assess the patient's mental status. Keep same antibiotic coverage Keep Prograf then discontinue the CellCept Continue the IV Solu-Medrol enteral feeding We'll continue to follow this patient along with the rest of the consultants Vascular surgery did not think that the patient is a surgical candidate for the carotid artery occlusion Patient is on statins for hyperlipidemia Critical care evaluation more than 30 minutes Time with Patient: Greater than 30
--- NOTE | 2022-08-30 08:45 | XR ---
EXAMINATION TYPE: XR chest 1V portable DATE OF EXAM: 08/30/2022 COMPARISON: 08/29/2020 HISTORY: Shortness of breath TECHNIQUE: Single frontal view of the chest is obtained. FINDINGS: Left-sided central line in stable tip overlying SVC. Bilateral infiltrate pleural effusion stable. Biapical pleural thickening. Chronic rib cage deformity suggesting old trauma. Arthropathy o f the shoulders. Coarsened interstitial pattern. IMPRESSION: 1. Bilateral lower lobe infiltrate and pleural effusion greater on the left stable. Correlate for pne umonia. CHF differential diagnosis
[2022-08-30] MEDS: CLOPIDOGREL 75 MG TAB PO SCH (10:04)
[2022-08-30] MEDS: ASPIRIN 81 MG PO SCH (10:04)
[2022-08-30] MEDS: methylPREDNISolone SOD SUCCI 40 MG/ML 1 ML VIAL IV SCH (10:04)
[2022-08-30] MEDS: HEPARIN SODIUM,PORCINE/PF 5,000 UNIT/0.5 ML SYRINGE SQ SCH ×2 (10:04→20:09)
[2022-08-30] MEDS: TACROLIMUS 0.5 MG CAP PO SCH ×2 (10:11→20:09)
[2022-08-30] MEDS: SODIUM CHLORIDE 0.9% 1,000 ML IV SCH (10:13)
--- NOTE | 2022-08-30 10:28 | P.PN ---
Subjective Progress Note Date: 08/29/22 Patient was seen for a follow-up. Patient initially seen by Dr. Poncho De Santiago. Please refer to his note for details. Patient is a 76-year-old right-handed male who has presented with acute left parietal stroke with right hemiplegia. Patient was initially intubated, placed on a ventilator because he was not able to protect his airway. EEG was negative for seizure. Patient has no significant carotid stenosis about 50%. CTA of the head and neck worse recommended once his kidney functions improved. Patient not on any antiplatelet medication because he was thrombocytopenic. Family requested patient to be transferred to [facility], but it has been declined. Repeat computed tomography scan was performed. Patient was seen for a follow-up. Patient's grandson was present. He called h is aunt, who is a caregiver to the patient and she was present over the speaker phone. Patient has been extubated earlier today. Patient is on contact isolation for MRSA. Patient's right arm and right leg is flaccid. He has severely garbled speech. Patient has been on aspirin 81 mg daily prior to arrival to the hospital. Prior workup: Urine culture is positive for Proteus mirabilis. Blood culture is positive for Proteus mirabilis Lipid panel is triglyceride 112, cholesterol 111, LDL is 61, HDL is 27. Ammonia level is less than [address] of the head is reported as cerebral atrophy. Old small cortical infarct in the left internal capsule. No acute abnormality. CT angiography of the head and neck is reported as angiogram is nondiagnostic since there is no vascular contrast. There is cerebral or cortical atrophy. No acute intercranial abnormality. No significant abnormality of the neck. Mild spondylitic changes in the cervical spine. Repeat CT of the head as reported as there is a 4 cm poorly marginated area of hypodensity in the left parietal lobe consistent with acute infarct and isn't changed compared to recent exam. No hemorrhage seen. Cerebral atrophy. Then later, reading radiologist has addendum and reports it is that acute infarct is a change compared to recent exam. I personally reviewed the CT of the head on the most recent CT that was done last and I felt the left parietal seemed acute. There is no intraparenchymal hemorrhage. And then I was compared it to initial CT head on presentation, I felt different in which, I did not notice any remarkable acute ischemic in left parietal on initial CT. Carotid duplex was reported as there is bilateral plaque formation. There is bilateral mild elevation of internal carotid artery velocity. There is antegrade flow in the vertebral arteries. The images and measurements suggest 50-70% stenosis in both internal carotid arteries. Repeat CT head on 08/25/2022 is reported as increased size of low attenuation region in the medial left frontal/parietal lobe consistent with evolving acute/subacute infarct compared to the prior CT brain on 08/23/2022. No evidence for hemorrhagic conversion. I personally reviewed the image and I do agree there is evolution of the stroke but I feel mostly it's over the left parietal stroke than frontal. Routine EEG on 08/25/2022: Is abnormal. The background slowing suggestive of moderate encephalopathy. There is no focal slowing, epileptiform discharge or seizure on the EEG. Excessive beta activity and some diffuse suppression seen during the study is likely due to medication effect (Ativan). 2D echo is reported as likely normal left ventricle size and systolic function. Normal left atrial size. Objective - Vital Signs Vital signs: Vital Signs Temp 98.2 F 08/29/22 16:00 Pulse 85 08/29/22 17:00 Resp 18 08/29/22 17:00 BP 138/58 08/29/22 17:00 Pulse Ox 98 08/29/22 17:00 FiO2 30 08/29/22 12:49 Intake & Output 08/28/22 08/29/22 08/29/22 18:59 06:59 18:59 Intake Total 1142.558 262.664 625.030 Output Total 658 1190 1040 Balance 484.558 -927.336 -414.970 Weight 102.4 kg 102.4 kg Intake: IV 36 33 228 .9 KVO 195 Pressure bag 36 33 33 Intake, IV Titration 1106.558 229.664 339.030 Amount Dextrose 5% in Water 1, 900 75 75 000 ml @ 75 mls/hr IV . [id number] [facility] Rx#:[id number] Ertapenem 0.5 gm In 50 50 Sodium Chloride 0.9% 50 ml @ 100 mls/hr IVPB Q24H [facility] Rx#:[id number] Linezolid 600 mg In 150 Dextrose/Water 1 300ml. bag @ 150 mls/hr IVPB Q12HR@0000,1200 [facility]ARA Rx#: [id number] Norepinephrine 32 mg In 4.343 1.084 Sodium Chloride 0.9% 218 ml @ 0.03 MCG/KG/MIN 1. 336 mls/hr IV .Q24H TAMARA Rx#:[id number] propofoL 1,000 mg In 152.215 153.58 64.030 Empty Bag 1 bag @ 15 MCG/ KG/MIN 8.55 mls/hr IV . [id number] [facility]ARA Rx#:[id number] Tube Feeding 58 Output: Urine 655 1190 1040 Stool 3 Other: Voiding Method Indwelling Catheter Indwelling Catheter Indwelling Catheter # Bowel Movements 1 1 1 ABP, PAP, CO, CI - Last Documented Arterial Blood Pressure 173/52 - Exam Patient is extubated. Patient not able to speak any words at this time. He is slightly gurgly. Patient is completely flaccid in the right arm and right leg. He slightly moves his left arm and left leg, but does not follow consistently the examination. Appears quite obtunded. Patient has been having a lot of liquid stools. Patient has Babinski on the right side. - Labs CBC & Chem 7: 08/30/22 05:20 08/30/22 05:20 Labs: Abnormal Lab Results - Last 24 Hours (Table) 08/27/22 08/28/22 08/28/22 Range/Units 11:43 18:48 23:28 RBC (4.30-5.90) m/uL Hgb (13.0-17.5) gm/dL Hct (39.0-53.0) % MCHC (31.0-37.0) g/dL Plt Count (150-450) k/uL Lymphocytes # (1.0-4.8) k/uL ABG HCO3 (21-25) mmol/L ABG Total CO2 (19-24) mmol/L ABG O2 Saturation (94-97) % Chloride (98-107) mmol/L BUN (9-20) mg/dL Creatinine (0.66-1.25) mg/dL Glucose (74-99) mg/dL POC Glucose (mg/dL) 147 H 181 H 159 H (70-110) mg/dL Calcium (8.4-10.2) mg/dL 10/31/22 10/31/22 10/31/22 Range/Units 04:15 04:15 05:41 RBC 3.46 L (4.30-5.90) m/uL Hgb 9.1 L (13.0-17.5) gm/dL Hct 29.8 L (39.0-53.0) % MCHC 30.5 L (31.0-37.0) g/dL Plt Count 68 L (150-450) k/uL Lymphocytes # 0.6 L (1.0-4.8) k/uL ABG HCO3 26 H (21-25) mmol/L ABG Total CO2 28 H (19-24) mmol/L ABG O2 Saturation 98.7 H (94-97) % Chloride 109 H (98-107) mmol/L BUN 46 H (9-20) mg/dL Creatinine 1.42 H (0.66-1.25) mg/dL Glucose 130 H (74-99) mg/dL POC Glucose (mg/dL) (70-110) mg/dL Calcium 7.9 L (8.4-10.2) mg/dL 08/29/22 08/29/22 Range/Units 06:03 12:02 RBC (4.30-5.90) m/uL Hgb (13.0-17.5) gm/dL Hct (39.0-53.0) % MCHC (31.0-37.0) g/dL Plt Count (150-450) k/uL Lymphocytes # (1.0-4.8) k/uL ABG HCO3 (21-25) mmol/L ABG Total CO2 (19-24) mmol/L ABG O2 Saturation (94-97) % Chloride (98-107) mmol/L BUN (9-20) mg/dL Creatinine (0.66-1.25) mg/dL Glucose (74-99) mg/dL POC Glucose (mg/dL) 134 H 178 H (70-110) mg/dL Calcium (8.4-10.2) mg/dL Microbiology - Last 24 Hours (Table) 08/25/22 10:25 Blood Culture - Preliminary Blood No Growth after 96 hours 08/26/22 04:11 Blood Culture - Preliminary Blood No Growth after 72 hours 08/25/22 12:27 Stool Culture - Final Stool Assessment and Plan Assessment: This is a 76-year-old gentleman who presented because of weakness over the right side and was worsening. Was felt his weakness started on 08/22/2022. * Acute ischemic stroke over left parietal region in the left STEVE territory with severe right sided weakness. On examination he has right sided hemiplegia, dysarthria, right facial weakness. No IV tpa since unknown last normal (but seems outside window). His CT shows evolution of his left parietal/frontal (b ut feel more parietal stroke). Etiology of stroke is cryptogenic but appears embolic. * Altered mental status seems due to multifactorial: Septic encephalopathy (UTI), blood culture is positive for proteus species, metabolic encephalopathy due to worsening kidney function, electrolyte disturbance and due to stroke. Lastly on sedation (Propofol). * Status post intubation and mechanical ventilation on 08/25/2022 since the patient unable to protect his airway because of confusion * Carotid stenosis 50-70% bilateral ICA on carotid duplex but was felt just at 50% by vascular surgery team. * Acute Thrombocytopenia * Sepsis (likely due to UTI and blood is positive for proteus species) * Acute on chronic kidney insufficiency--minimal to mild improvement * Elevated liver function with AST currently is 284 and ALT of 81. * History of old stroke with some weakness possible lower weakness but was able to ambulate * History of liver failure s/p transplant Plan: Repeat CT head from 08/28/2022 revealed stable posterior left centrum semiovale infarct. I personally reviewed CT head, appears to involve the left STEVE to auditory involving the left parietal region. No hemorrhage. Patient has failed aspirin regimen. We will start patient on Plavix 75 mg daily. Recommend continuing dual antiplatelet medication for 21 days, thereafter stop aspirin and continue Plavix indefinitely. NG tube will be placed to start Plavix. Discussed with patient's nurse, and the family members. They consented for the NG tube placement. Hemoglobin A1c 5.7. Lipid panel with cholesterol 111, LDL 61, HDL 27 and triglycerides 112. Con tinue Lipitor 40 mg daily at bedtime for secondary stroke prophylaxis [employer] vascular surgery team for the carotid stenosis and they felt carotid stenosis at 50%. They did not feel he was a surgical candidate at this time. PT, OT and [employer] are consulted Continue neuro checks Avoid hypotensive episodes. I.D. team is consulted for his sepsis. On cardiac monitoring. We'll defer the rest of the medical management to the primary and ICU team For DVT prophylaxis use SCD's. Subq heparin if no medical contraindications. Discussed with patient's family and nursing staff in detail.
--- NOTE | 2022-08-30 11:27 | P.PN ---
Subjective Patient is seen for follow-up for acute kidney injury. Patient has been extubated. He is maintained on nasal cannula. IV fluids have been discontinued. Good urine output Serum creatinine down to 1.0 mg/dL. Objective - Vital Signs Vital signs: Vital Signs Temp 97.9 F 08/30/22 08:00 Pulse 80 08/30/22 11:17 Resp 15 08/30/22 11:00 BP 120/62 08/30/22 11:00 Pulse Ox 96 08/30/22 11:00 FiO2 30 08/29/22 12:49 Intake & Output 08/29/22 08/30/22 08/30/22 18:59 06:59 18:59 Intake Total 648.030 789 358 Output Total 1140 1820 325 Balance -491.970 -1031 33 Weight 102.4 kg 109 kg 109 kg Intake: IV 251 299 32 .9 KVO 215 260 20 Pressure bag 36 39 12 Intake, IV Titration 339.030 150 Amount Dextrose 5% in Water 1, 75 000 ml @ 75 mls/hr IV . [id number] [facility] Rx#:[id number] Ertapenem 0.5 gm In 50 Sodium Chloride 0.9% 50 ml @ 100 mls/hr IVPB Q24H [facility] Rx#:[id number] Linezolid 600 mg In 150 Dextrose/Water 1 300ml. bag @ 150 mls/hr IVPB Q12HR@0000,1200 [facility] Rx#: [id number] Sodium Chloride 0.9% 1, 150 000 ml @ 50 mls/hr IV . Q20H [facility] Rx#:[id number] propofoL 1,000 mg In 64.030 Empty Bag 1 bag @ 15 MCG/ KG/MIN 8.55 mls/hr IV . [id number] [facility] Rx#:[id number] Tube Feeding 58 290 146 Other 200 30 Output: Urine 1140 1545 325 Stool 275 Other: Voiding Method Indwelling Catheter Indwelling Catheter # Bowel Movements 1 ABP, PAP, CO, CI - Last Documented Arterial Blood Pressure 148/48 - Exam Awake, comfortable Extubated Examination of the heart S1 and S2 Bilateral breath sounds are heard, decreased breath sounds at the bases Abdomen is soft Examination lower extremities shows edema 1+ bilaterally and edema in the upper extremities as well - Labs CBC & Chem 7: 08/30/22 05:20 08/30/22 05:20 Labs: Abnormal Lab Results - Last 24 Hours (Table) 08/29/22 08/29/22 08/30/22 Range/Units 12:02 18:44 05:20 RBC 3.44 L (4.30-5.90) m/uL Hgb 9.5 L (13.0-17.5) gm/dL Hct 29.7 L (39.0-53.0) % Plt Count 144 L D (150-450) k/uL Lymphocytes # 0.9 L (1.0-4.8) k/uL BUN (9-20) mg/dL POC Glucose (mg/dL) 178 H 117 H (70-110) mg/dL Calcium (8.4-10.2) mg/dL Total Protein (6.3-8.2) g/dL Albumin (3.5-5.0) g/dL 08/30/22 Range/Units 05:20 RBC (4.30-5.90) m/uL Hgb (13.0-17.5) gm/dL Hct (39.0-53.0) % Plt Count (150-450) k/uL Lymphocytes # (1.0-4.8) k/uL BUN 43 H (9-20) mg/dL POC Glucose (mg/dL) (70-110) mg/dL Calcium 8.3 L (8.4-10.2) mg/dL Total Protein 4.5 L (6.3-8.2) g/dL Albumin 2.4 L (3.5-5.0) g/dL Microbiology - Last 24 Hours (Table) 08/26/22 04:11 Blood Culture - Preliminary Blood No Growth after 96 hours 08/25/22 10:25 Blood Culture - Preliminary Blood No Growth after 96 hours Assessment and Plan Assessment: 1. Acute kidney injury secondary to ATN secondary to septic shock and contrast- induced acute kidney injury. Patient received IV contrast on 08/23/2022. Creatinine was 1.74 on admission and peaked at 2.78 - 1.0 today. Nonoliguric. No hydronephrosis noted on CAT scan. 2. Chronic kidney disease stage IIIa with baseline creatinine in the range of 1.2-1.5 secondary to nephrosclerosis and long-term calcineurin inhibitor use. 3. 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 4. Metabolic acidosis secondary to acute kidney injury, lactic acidosis and IV fluids. Status post bicarb drip. 5. 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 Neurology following. 6. Septic shock secondary to Proteus UTI and bacteremia on antibiotics. Status post pressors. 7. Hyernatremia currently maintained on D5W and improved. Patient is also receiving free water flushes down his feeding tube. Plan: Repeat labs in a.m. Avoid nephrotoxic agents Repeat Prograf level
[2022-08-30 12:13] LABS: Glucose,Whole Blood 114 mg/dL (70-110)
[2022-08-30] MEDS: ERTAPENEM 0.5 GM in SODIUM CHLORIDE 0.9% 50 ML IVPB SCH (13:07)
--- NOTE | 2022-08-30 16:44 | P.PN ---
Subjective Progress Note Date: 08/30/22 76-year-old the male came in with the comments of generalized weakness and a nonspecific abdominal pain diffuse. Patient the overall clinical condition gotten worse patient became more septic patient is on immunosuppressive therapy with tacrolimus, mycophenolate. Patient was subsequently admitted to ICU. Patient neurological status also has worsened because of which the it was believed the patient has stroke. Patient does have chronic right-sided weakness with strength of 3/5 which is his baseline. Patient underwent multiple imaging studies including her CT angios the head and neck as well as a CT of the head which showed acute ischemic stroke over the left parietal lobe with worsening weakness on the right side. Patient continued to be on antiplatelet therapy. Patient urine cultures came back positive for Proteus mirabilis and patient blood cultures are now positive for Proteus species possible source of infection being urinary tract infection this Proteus species is pansensitive to multiple antibiotics patient is presently on Zosyn. Patient liver enzymes on admission were within normal limits patient is a liver transplant patient patient liver enzymes went up minimally to 284 and ALP of 81 this is probably secondary to sepsis and patient has acute tumor necrosis secondary to sepsis with worsening creatinine of around 2.8 baseline creatinine of around 1. Patient was encephal opathic EEG was ordered.. Today morning patient is found to be hypoxic any arterial blood gases after which patient was intubated patient is presently on 100% FiO2 assist control ventilation with PEEP of 5. Patient with the has troponin of 0.49 secondary to sepsis. 08/26/2022 Patient continues to be monitored closely in the intensive care unit. Continues to be intubated and on mechanical ventilator with FiO2 of 40% with oxygen saturation of 100%, fever is improving currently 97.6. Blood pressure 106/60 which he has been continued on vasopressor support. Continues on propofol for sedation. Current antibiotic coverage of IV zosyn for proteus miribilis UTI and bacteremia. Infectious disease following. Cellcept remains on hold. Patient was able to receive prograf through NG tube today. Case was discussed with liver transplant team yesterday. Patient did have repeat brain CT completed yesterday showing evolving stroke left parietal/left front. No evidence for hemorrhagic conversion. Neurology following. Patient will be started on nutritional feeds today. As of yesterday family was undecided about pursuing transfer to another facility. They would still like to pursue transfer to [facility]. Did speak with Dr. Espinoza at [facility] yesterday and CT imaging was sent over at request of physician to review. Awaiting status update from [facility] transfer team regarding decision to accept. Family is aware of pending status as of yesterday with no new updates yet today. Labs today showing a white count of 12.6, platelet count of 93, sodium 142, potassium 4.4, BUN 31, creatinine 2.68, blood glucose 200s. AST 147, ALT 69, alk phos 124. 08/27/2022 Patient evaluated today in intensive care unit currently intubated on mechanical ventilator with FiO2 of 40%. He has remained afebrile. Currently maintaining blood pressures 130/60s off of pressor support. He continues to be sedated with propofol. Today he is responsive to painful stimulation of the right hand with minimal eye opening however continues to be drowsy, and from a neurological standpoint overall prognosis is poor. Plan today is to wean sedation and repeat brain CT if no neurological improvement. He is also continued on IV zosyn for proteus UTI and bacteremia. Repeat blood cultures are currently pending at this time, sputum culture is also pending. Continues on D5 normal saline at 75 mls per hour and urine output is about 675 mls in the last 24 hours. Labs today are showing sodium level of 145, potassium 3.9, BUN 42, creatinine 2.56, blood glucose in the 200s, calcium 6.7, magnesium 2.3, liver enzymes are continuing to improve AST 66, ALT 50, alk phos 82. Remains on tacrolimus and IV solumedrol. Platelet count has continued to drop currently now 49, hgb of 10.5, white count 4.6. Fibrinogen, PT/INR, pTT within normal limits. Hematology consultation requested for further investigation and will recommend to hold off on heparin subcutaneous for now. Noted that patient was on single antiplatelet therapy for acute evolving ischemic infarct and aspirin is currently being held as well now. Chest xray today showing Left lower lobe infiltrate. For now [facility] transfer pending this was done for family request. have not heard back if physician has accepted. 08/28/2022 Patient is evaluated in intensive care unit today. Pending return phone call from [facility] transfer regarding acceptance, the physician Dr. Rosas was going to speak with lithographic artist. Patient repeat chest x-ray today showing possible atypical pulmonary edema with left lower lobe pneumonia remains within the differential. Sputum cultures positive for MRSA, repeat blood cultures are pending so far. Patient continues on the Zosyn and received a dose of IV vancomycin. Infectious disease is following patient closely. Continues on IV Solu-Medrol, he is currently maintained on norepinephrine at 0.01 mcgs, he is receiving propofol for sedation. IV fluids are infusing D5 in water at 75 mls per hour. Patient remains afebrile, heart rate 73, blood pressure 121/56, 97% oxygen saturation on the mechanical ventilator of FiO2 30%. Labs today are halley wing a white count of 3.9, hemoglobin 9.5, platelet count of 53, potassium 3.3, BUN 49, creatinine 2.29, blood glucose in the 120s. He had ABGs completed today. He is receiving enteral nutrition. Plan is for repeat CT today and from there we'll discuss with family and also follow up with [facility]. Prognosis remains poor at this time. 08/29/2022 Patient continues to be monitored closely in intensive care unit. He had chest xray today showing possible congestive heart failure with pneumonia not e xcluded. Repeat brain CT showing stable infarct posterior left centrum semiovale infarct. Patient has been extubated today. Currently on sedation holiday. Currently afebrile, heart rate 72, blood pressure 128/48. Maintaining oxygen saturations on 2L nasal cannula at 98%. Antibiotics have been adjusted by infectious disease. On IV linezolid and IV ertapenem. He has been weaned off of levophed. Continues on IV steroids. Labs today showing white count 4.1, hgb 9.1, BUN 46, creatinine 1.42, glucose 130s. Chest xray will be repeated tomorrow. Plan to continue monitoring and evaluate defecits. Family updated that Dr. Rosas with [facility] has denied patient for transfer to [facility]. 08/30/2022 Patient is evaluated today in intensive care unit he has been extubated and is currently maintained on 2L of oxygen via nasal cannula. He is nonverbal however he does follow verbal commands. Patient had chest xray this morning showing bilateral lower lobe infiltrate and pleural effusion greater on the left, stable. CHF vs. Pneumonia. Patient is being treated currently with IV linezolid and also IV ertapenem for proteus bacteremia and also sputum culture showing MRSA. Today his platelet count is 144, hgb stable at 9.5. He has NG tube in place and has been started on plavix and also aspirin 81 mg daily and subcu heparin. Kidney function continues to improve BUN 43, creatinine 1.04. Blood glucose in the 110s. He is receiving enteral nutrition with vital AF goal 75 mls per hour. Speech therapy has evaluated the patient today and will continue to remain nothing by mouth secondary to suspected severe dysphagia. Global aphasia. Pending re-evalution and further recommendations by neurology today. Patient most likely will need PEG tube placement and this will be discussed with family. PHYSICAL EXAMINATION: GENERAL: This is a 76 year old male who appears stated age. Patient is being monitored in intensive care unit, lethargic. Extubated. HEENT: Pupils are round and equally reacting to light. EOMI. No scleral icterus. No conjunctival pallor. Normocephalic, atraumatic. No pharyngeal erythema. No thyromegaly. CARDIOVASCULAR: S1 and S2 present. No murmurs, rubs, or gallops. Tachycardic. PULMONARY: Coarse ronchorous lungs sounds, no wheezing noted. ABDOMEN: Soft, nontender, nondistended, normoactive bowel sounds. No palpable organomegaly. MUSCULOSKELETAL: No joint swelling or deformity. EXTREMITIES: No cyanosis, clubbing, or pedal edema. NEUROLOGICAL: Diffuse global weakness right greater than left. SKIN: No rashes. Assessment and Plan Assessment -Septic shock secondary to urinary tract infection patient has Proteus mirabilis UTI and bacteremia. MRSA positive sputum. Continues on IV daptomycin, IV ertapenem. Infectious disease following. Acute ischemic infarct, left centrum semiovale, resumed on aspirin, and plavix has been started today Acute hypoxic respiratory failure secondary to sepsis/possible aspiration patient is currently extubated on 2L nasal cannula Acute kidney injury secondary to acute tubular necrosis secondary to septic shock. Creatinine today 1.04 today nephrology is following. Toxicants of probably secondary to sepsis Acute renal failure secondary to acute tubular necrosis from sepsis elevated troponin secondary to septic shock Hypoglycemia resolved continues on enteral nutrition Metabolic acidosis secondary to acute kidney injury, lactic acidosis, improving Elevated transaminases, initially negative, possibly from sepsis which they have now normalized. 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 [facility] has denied patient for transfer to [facility]. History of hypertension patient is currently normotensive weaned off of pressor support Stage 2 sacral decub History of gastroesophageal reflux disease BPH Hyperlipidemia History of old stroke residual weakness on the right side. GI Prophylaxis DVT Prophylaxis subcutaneous heparin Full Code Patient is pending re-evaluation and further recommendations by neurology. He has NG tube in place. He is receiving enteral nutrition currently. NPO status with severe dysphagia and also global aphasia. Most likely will need PEG tube placement and this will be discussed with family. Physical therapy evaluation has been completed today and patient is recommended for subacute rehab with 24/ care at this time. Continues to be monitored closely in intensive care unit. The impression and plan of care has been dictated by Aisha Taylor, Nurse Practitioner as directed. Dr. Harsha MD I have performed a history and physical examination and medical decision making of this patient, discussed the same with the dictator, and agree with the dictators assessment and plan as written, documented as a scribe. Based on total visit time, I have performed more than 50% of this visit. Objective - Vital Signs Vital signs: Vital Signs Temp 97.9 F 08/30/22 08:00 Pulse 77 08/30/22 09:00 Resp 21 08/30/22 09:00 BP 125/56 08/30/22 09:00 Pulse Ox 98 08/30/22 09:00 FiO2 30 08/29/22 12:49 Intake & Output 08/29/22 08/30/22 08/30/22 18:59 06:59 18:59 Intake Total 648.030 789 Output Total 1140 1820 Balance -491.970 -1031 Weight 102.4 kg 109 kg Intake: IV 251 299 .9 KVO 215 260 Pressure bag 36 39 Intake, IV Titration 339.030 Amount Dextrose 5% in Water 1, 75 000 ml @ 75 mls/hr IV . [id number] [facility] Rx#:[id number] Ertapenem 0.5 gm In 50 Sodium Chloride 0.9% 50 ml @ 100 mls/hr IVPB Q24H [facility] Rx#:[id number] Linezolid 600 mg In 150 Dextrose/Water 1 300ml. bag @ 150 mls/hr IVPB Q12HR@0000,1200 [facility] Rx#: [id number] propofoL 1,000 mg In 64.030 Empty Bag 1 bag @ 15 MCG/ KG/MIN 8.55 mls/hr IV . [id number] [facility] Rx#:[id number] Tube Feeding 58 290 Other 200 Output: Urine 1140 1545 Stool 275 Other: Voiding Method Indwelling Catheter Indwelling Catheter # Bowel Movements 1 ABP, PAP, CO, CI - Last Documented Arterial Blood Pressure 154/42 - Labs CBC & Chem 7: 08/30/22 05:20 08/30/22 05:20 Labs: Abnormal Lab Results - Last 24 Hours (Table) 08/29/22 08/29/22 08/30/22 Range/Units 12:02 18:44 05:20 RBC 3.44 L (4.30-5.90) m/uL Hgb 9.5 L (13.0-17.5) gm/dL Hct 29.7 L (39.0-53.0) % Plt Count 144 L D (150-450) k/uL Lymphocytes # 0.9 L (1.0-4.8) k/uL BUN (9-20) mg/dL POC Glucose (mg/dL) 178 H 117 H (70-110) mg/dL Calcium (8.4-10.2) mg/dL Total Protein (6.3-8.2) g/dL Albumin (3.5-5.0) g/dL 08/30/22 Range/Units 05:20 RBC (4.30-5.90) m/uL Hgb (13.0-17.5) gm/dL Hct (39.0-53.0) % Plt Count (150-450) k/uL Lymphocytes # (1.0-4.8) k/uL BUN 43 H (9-20) mg/dL POC Glucose (mg/dL) (70-110) mg/dL Calcium 8.3 L (8.4-10.2) mg/dL Total Protein 4.5 L (6.3-8.2) g/dL Albumin 2.4 L (3.5-5.0) g/dL Microbiology - Last 24 Hours (Table) 08/26/22 04:11 Blood Culture - Preliminary Blood No Growth after 96 hours 08/25/22 10:25 Blood Culture - Preliminary Blood No Growth after 96 hours Assessment and Plan Time with Patient: Less than 30
[2022-08-30 17:31] LABS: Glucose,Whole Blood 127 mg/dL (70-110)
--- NOTE | 2022-08-30 18:21 | XR ---
EXAMINATION TYPE: XR chest 1V portable DATE OF EXAM: 08/30/2022 5:35 PM COMPARISON: Chest radiographs from 08/30/2022 earlier in the day TECHNIQUE: XR chest 1V portable Portable AP radiograph of the chest. CLINICAL INDICATION:Male, 76 years old with history of confirm NGT placement; FINDINGS: Lungs/Pleura: Bilateral lower lobe airspace opacities which are unchanged from prior. There is no marianne dence of pleural effusion, or pneumothorax. Pulmonary vascularity: Unremarkable. Heart/mediastinum: Cardiomediastinal silhouette is unremarkable. Musculoskeletal: No acute osseous pathology. Other findings: None Lines/Tubes: Nasogastric tube with its distal tip and side-port projecting under the diaphragm. IMPRESSION: Nasogastric tube in appropriate position. The remainder of the exam is unchanged from earlier.
[2022-08-30] MEDS: LATANOPROST 0.005% OPHTH DROPS 2.5 ML BTL BOTH EYES SCH (20:09)
[2022-08-30 23:55] LABS: Glucose,Whole Blood 98 mg/dL (70-110)
[2022-08-31] MEDS: NOREPINEPHRINE 32 MG in SODIUM CHLORIDE 0.9% 218 ML IV SCH ×2 (00:03→20:21)
[2022-08-31] MEDS: INSULIN ASPART (NovoLOG) 100 UNIT/ML VIAL SQ SCH ×4 (00:04→20:20)
[2022-08-31] MEDS: LINEZOLID 600 MG in DEXTROSE/WATER 1 300ML.BAG IVPB SCH ×2 (00:06→12:53)
[2022-08-31] MEDS: IPRATROPIUM-ALBUTEROL 3 ML NEB INHALATION SCH ×6 (01:11→19:58)
[2022-08-31 05:21] LABS: Glucose,Whole Blood 106 mg/dL (70-110)
[2022-08-31] MEDS: SODIUM CHLORIDE 0.9% 1,000 ML IV SCH (07:08)
--- NOTE | 2022-08-31 08:27 | P.PN ---
Subjective Progress Note Date: 08/31/22 On 08/29/2022, this 76-year-old Afro-[place] male patient is being seen for a follow-up.The patient is a known case of liver transplantation performed at [facility]. 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 The patient is currently in the intensive care unit with septic shock. For now, the patient is intubated on a mechanical ventilator. This morning, he is on a propofol which is running at 30 mcg/kg/m. At the same time, the patient remains on a mechanical ventilator, he is on assist-control mode of mechanical ventilation at the rate of 20 with a tidal volume of 450 and FiO2 of 30% with a PEEP of 5. The lungs gases from this morning show a pH of 7.43 with a pCO2 of 40 and pO2 of 99. The chest x-ray from today is showing adequate positioning of the orotracheal tube. No evidence of any pneumothorax. Orogastric tube was also an adequate location.. The patient has also a left lower lobe consolidation consistent with pneumonia. There is some increased interstitial markings bilaterally. Underlying left-sided pleural effusion cannot be completely ruled out. There is also a triple-lumen catheter in the left subclavian vein this noted. The sputum is positive for MRSA. Nevertheless, the septic shock was essentially due to a gram-negative bacteria with Proteus mirabilis. The Proteus was positive in the blood and in the urine. The patient is currently covered with broad-spectrum antibiotics. The patient is currently on IV Invanz and IV Zyvox. The patient is on IV fluids currently running at KVO. His overall net fluid balance has been 1.8 L over the past 24 hours. He is on pressors and norepinephrine is running at a low-dose and he is still running norepinephrine on enough to maintain his blood pressure. This mo rning, he is off pressors. He is improving in terms of her renal function and a creatinine currently is down to 1.4 with a BUN of 46. Sodium is at 139. Bicarb is 24. The white suppositive 4.1 with a hemoglobin of 9.1 and a platelet count of 68. At the same time, the patient is off immunosuppression. He was on a combination of Prograf and CellCept. Prograf is still on at a dose of 0.5 mg twice a day and CellCept has been discontinued and the patient is receiving IV Solu-Medrol 40 mg every 24 hours. Note that he was on Decadron 0.5 mg every day. He is afebrile. He is receiving enteral feeding for nutritional support and the patient is currently on vital high protein at the rate of 58 mL an hour which is goal. 2 he is also on water flushes 200 mL every 6 hours. I On today's evaluation of 08/30/2022, the patient is extubated. The patient weaned off the mechanical ventilator yesterday without any major difficulties and the patient was extubated again without any major difficulties and currently is on 2 L of oxygen by nasal cannula. His breathing is nonlabored. Postextubation, NG tube was kept in place and the patient has no ability to swallow post his ischemic infarcts. He continues to have neurological deficits bilaterally. Obviously the right side is weaker than the left side. There is bilateral weakness with the right upper and right lower extremity being extre blanca weak compared to the left. The patient also has a weak cough, some mild facial asymmetry is also seen. Pupils are equally reactive to light. No seizure activity. Price catheter in place. Hemodynamically stable. Chest x- ray showing persistent left lower lobe pulmonary infiltrate consistent with pneumonia. He is afebrile. His platelet counts improved and currently the level is up to 144. The patient can be started on antiplatelet agents. NG tube is in place. Output is nonbloody. The white cell cause of 4.9 with a hemoglobin of 9.5 and a platelet of 144. Sodium is 138 and a BUN is 43 with a creatinine of 1.04 and the patient has also recover from acute kidney injury. Fluid is in the form of 0.9 at KVO. He is receiving enteral feeding for nutritional support in the form of vital high protein at the rate of 29 mL an hour. On 08/31/2022, the patient remains extubated on oxygen and he is currently on 2 L. A chest x-ray showing consolidation in the left lower lobe and there is also evidence of pulmonary vascular congestion and increased interstitial markings bilaterally. Nevertheless, the patient does not seem to be shortness of breath and his breathing is nonlabored. His pulse oxing 98% liters of oxygen by nasal cannula. He has an NG tube in place. He is receiving vital AF at the rate of 50 mL an hour which is able to tolerate without any major difficulties. NG tube is in a good location based on the chest x-ray. Neurologically, still impaired, weak cough, unable to communicate effectively, is able to protect his airways however. Minimal motor function on the right side when he was able to move his fingers. He was able to raise his left approximately against gravity, minimal movement in his toes. His cardiac rhythm is sinus. He is on a combination of aspirin and Plavix for now. At the same time, the patient is on broad-spectrum antibiotics. He remains on IV Invanz. He remains on IV Zyvox. He had MRSA in his sputum. He remains on Prograf 0.5 mg by mouth twice a day. The patient is a case of liver chest mentation. At the same time, the labs are still pending from today. The blood work from yesterday was noted again. The white cell count was not elevated. Hemoglobin was at 9.5. No new cultures are available. Most recent sputum culture was positive for MRSA in the blood culture was positive for Proteus mirabilis. Very much debilitated. No open wounds or sores. He has many boots in his lower extremities. He is a triple-lumen cath in his left upper extremity and an arterial line in his right upper extremity. Objective - Vital Signs Vital signs: Vital Signs Temp 97.8 F 08/31/22 04:00 Pulse 80 08/31/22 07:58 Resp 22 08/31/22 07:00 BP 128/51 08/31/22 07:00 Pulse Ox 99 08/31/22 07:49 FiO2 30 08/29/22 12:49 Intake & Output 08/30/22 08/31/22 08/31/22 18:59 06:59 18:59 Intake Total 1425 1279 Output Total 1515 1665 Balance -90 -386 Weight 109 kg 107.9 kg Intake: IV 50 639 .9 KVO 20 Pressure bag 30 39 Sodium Chloride 0.9% 1, 600 000 ml @ 50 mls/hr IV . Q20H [facility] Rx#:[id number] Intake, IV Titration 850 50 Amount Ertapenem 0.5 gm In 50 Sodium Chloride 0.9% 50 ml @ 100 mls/hr IVPB Q24H [facility] Rx#:[id number] Linezolid 600 mg In 300 Dextrose/Water 1 300ml. bag @ 150 mls/hr IVPB Q12HR@0000,1200 [facility] Rx#: [id number] Sodium Chloride 0.9% 1, 500 50 000 ml @ 50 mls/hr IV . Q20H [facility] Rx#:[id number] Tube Feeding 435 500 Other 90 90 Output: Urine 1515 1615 Stool 50 Other: Voiding Method Indwelling Catheter Indwelling Catheter ABP, PAP, CO, CI - Last Documented Arterial Blood Pressure 142/50 - Exam , Following simple commands, profoundly weak, NG tube is in place, HEENT examination is grossly unremarkable. Neck supple. Full range of motion. No adenopathy thyromegaly or neck vein distention. Cardiovascular examination reveals regular rhythm rate. S1-S2 normal. No S3 or S4. No discernible murmur noted. Lungs reveal coarse bilateral breath sounds. No wheezes. No crackles. Abdomen soft, without sounds. No masses or tenderness. Well-healed liver transplant scar. Extremities are intact. No cyanosis or clubbing. Trace edema. Chronic venous stasis changes noted. Skin is without rash or lesion. Neurologic examination shows facial asymmetry, pupils are equal and reactive to light, there is pupillary which is around 2-3 mm in size, sluggishly reactive to light, no nystagmus, no preferential gaze, slight facial droop on the left, motor weakness bilaterally 1 out of 5 on the right and about a 5 on the left. No Babinski. No clonus. Reflexes are diminished in all 4 extremities. No seizure activity. - Labs CBC & Chem 7: 08/30/22 05:20 08/30/22 05:20 Labs: Abnormal Lab Results - Last 24 Hours (Table) 08/30/22 08/30/22 Range/Units 12:12 17:28 POC Glucose (mg/dL) 114 H 127 H (70-110) mg/dL Microbiology - Last 24 Hours (Table) 08/26/22 04:11 Blood Culture - Preliminary Blood No Growth after 120 hours 08/25/22 10:25 Blood Culture - Preliminary Blood No Growth after 120 hours 08/25/22 12:27 Stool Culture - Final Stool Assessment and Plan Plan: Septic shock, with secondary Hypotension, secondary to gram-negative sepsis, with Proteus mirabilis bacteremia and probable Proteus mirabilis urinary tract infection. The patient is hemodynamically stable on no pressors. The patient is on a combination of IV Invanz and Zyvox, hemodynamically stable and his overall condition is unchanged Left lower lobe pneumonia secondary to MRSA, currently on Zyvox mild chest x-ray is unchanged and the patient was extubated on 08/29/2022, remains extubated on 2 L of oxygen by nasal cannula Status post intubation and mechanical ventilation, 08/25/2022, as patient was unable to protect his airway. Extubated on 08/29/2022 Acute ischemic infarct, left parietal lobe, which has evolved. Most recent CAT scan of the brain done on 08/28/2022 showed a stable posterior left centrum semiovale overall infarct. Neurology is on the case, the patient presented with an acute stroke over left parietal with worsening of the right-sided weakness. He did have right hemiplegia, dysarthria and right facial weakness. No TPA was given at time of admission as the timing was unknown and the patient was outside the window. His follow-up CAT scan showed evolution of the left parietal/frontal stroke. This is considered to be possibly embolic and the exact etiology is not clear. The patient subsequently became encephalopathic related to underlying sepsis. Currently extubated, obvious neurologic deficits with poor swallow, poor cough, motor weakness bilaterally more so on the right. No major neurologic changes over the past 24-48 hours since extubation History of liver transplantation, at the [facility]. 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 History of gastroesophageal reflux disease. History of BPH. History of hyperlipidemia. Carotid artery stenosis 50-70% bilateral ICA on carotid Dopplers Acute thrombocytopenia secondary to sepsis, improved History of an old CVA with possible weakness in the lower extremities and the patient was able to ambulate at baseline Acute hepatic dysfunction / transaminitis, recovered Diarrhea with FMS and a negative c diff, rule out antibiotic induced Plan Remains extubated Keep NG tube in place, and continue to feeding Continue aspirin 81 mg by mouth daily and plavix neurology regarding the mental status and the need for another CAT scan Stop the sedation and assess the patient's mental status. Keep same antibiotic coverage Keep Prograf then discontinue the CellCept Continue the IV Solu-Medrol PT consult We'll continue to follow this patient along with the rest of the consultants Vascular surgery did not think that the patient is a surgical candidate for the carotid artery occlusion Patient is on statins for hyperlipidemia Overall condition stable. No major changes. Of concern is the ongoing pneumonia. Left lower lobe consolidation remains unchanged. Continue Zyvox. Deep breathing. Provide the patient incentive spirometer. Perform adequate pulmonary toileting. His echocardiogram showed a preserved LV function. No need for diuresis point in time.
--- NOTE | 2022-08-31 08:54 | XR ---
EXAMINATION TYPE: XR chest 1V portable DATE OF EXAM: 08/31/2022 COMPARISON: 08/30/2022 HISTORY: NG tube placement TECHNIQUE: Single frontal view of the chest is obtained. FINDINGS: Bilateral airspace disease and pleural effusion is stable. Left-sided central line is seen and there is apical pleural thickening greater on the right. Hypertrophic changes of the spine. NG t ube seen in the abdomen with the tip likely within the gastric body. IMPRESSION: 1. Stable bilateral pleural-parenchymal disease more likely pneumonia versus CHF. 2. NG tube seen with tip likely within the gastric body.
[2022-08-31] MEDS: HEPARIN SODIUM,PORCINE/PF 5,000 UNIT/0.5 ML SYRINGE SQ SCH ×2 (08:57→20:21)
[2022-08-31] MEDS: methylPREDNISolone SOD SUCCI 40 MG/ML 1 ML VIAL IV SCH (08:58)
[2022-08-31] MEDS: TACROLIMUS 0.5 MG CAP PO SCH ×2 (08:58→20:26)
[2022-08-31] MEDS: CLOPIDOGREL 75 MG TAB PO SCH (08:58)
[2022-08-31] MEDS: ASPIRIN 81 MG PO SCH (08:58)
[2022-08-31 09:45] LABS: Calcium 7.9 mg/dL (8.4-10.2); Potassium 4.1 mmol/L (3.5-5.1)
[2022-08-31 09:46] LABS: Basophils % (A) 0 %; Eosinophils # (A) 0.1 k/uL (0-0.7); Eosinophils % (A) 1 %; HCT 30.3 % (39.0-53.0); HGB 9.4 gm/dL (13.0-17.5); Hypochromasia Moderate; Lymphocytes # (A) 0.8 k/uL (1.0-4.8); Lymphocytes % (A) 19 %; MCH 27.1 pg (25.0-35.0); MCV 87.4 fL (80.0-100.0); Mean Platelet Volume 9.4; Monocytes # (A) 0.3 k/uL (0-1.0); Monocytes % (A) 5 %; Neutrophils # (A) 3.2 k/uL (1.3-7.7); Neutrophils % (A) 70 %; Platelet Count 201 k/uL (150-450); RBC 3.47 m/uL (4.30-5.90); RDW 14.3 % (11.5-15.5); WBC 4.6 k/uL (3.8-10.6)
--- NOTE | 2022-08-31 10:32 | P.PN ---
Subjective Patient is seen for follow-up for acute kidney injury. Patient has been extubated. He is maintained on nasal cannula. Maintained on normal saline 50 mL an hour Maintained on tube feeding currently at 50 ML per minute at. Goal is at 75 mL Good urine output Serum creatinine down to 0.97 mg/dL. Objective - Vital Signs Vital signs: Vital Signs Temp 99.0 F 08/31/22 09:00 Pulse 81 08/31/22 10:00 Resp 12 08/31/22 10:00 BP 123/49 08/31/22 10:00 Pulse Ox 99 08/31/22 10:00 FiO2 30 08/29/22 12:49 Intake & Output 08/30/22 08/31/22 08/31/22 18:59 06:59 18:59 Intake Total 1425 1279 339 Output Total 1515 1665 325 Balance -90 -386 14 Weight 109 kg 107.9 kg Intake: IV 50 639 159 .9 KVO 20 Pressure bag 30 39 9 Sodium Chloride 0.9% 1, 600 150 000 ml @ 50 mls/hr IV . Q20H [facility] Rx#:[id number] Intake, IV Titration 850 50 Amount Ertapenem 0.5 gm In 50 Sodium Chloride 0.9% 50 ml @ 100 mls/hr IVPB Q24H [facility] Rx#:[id number] Linezolid 600 mg In 300 Dextrose/Water 1 300ml. bag @ 150 mls/hr IVPB Q12HR@0000,1200 [facility] Rx#: [id number] Sodium Chloride 0.9% 1, 500 50 000 ml @ 50 mls/hr IV . Q20H [facility] Rx#:[id number] Tube Feeding 435 500 150 Other 90 90 30 Output: Urine 1515 1615 325 Stool 50 Other: Voiding Method Indwelling Catheter Indwelling Catheter Indwelling Catheter ABP, PAP, CO, CI - Last Documented Arterial Blood Pressure 154/47 - Exam Awake, comfortable Extubated Following commands Examination of the heart S1 and S2 Bilateral breath sounds are heard, decreased breath sounds at the bases Abdomen is soft Examination lower extremities shows edema 1+ bilaterally and edema in the upper extremities as well - Labs CBC & Chem 7: 08/31/22 05:12 08/31/22 05:12 Labs: Abnormal Lab Results - Last 24 Hours (Table) 08/30/22 08/30/22 08/31/22 Range/Units 12:12 17:28 05:12 RBC 3.47 L (4.30-5.90) m/uL Hgb 9.4 L (13.0-17.5) gm/dL Hct 30.3 L (39.0-53.0) % Lymphocytes # 0.8 L (1.0-4.8) k/uL BUN (9-20) mg/dL POC Glucose (mg/dL) 114 H 127 H (70-110) mg/dL Calcium (8.4-10.2) mg/dL 08/31/22 Range/Units 05:12 RBC (4.30-5.90) m/uL Hgb (13.0-17.5) gm/dL Hct (39.0-53.0) % Lymphocytes # (1.0-4.8) k/uL BUN 38 H (9-20) mg/dL POC Glucose (mg/dL) (70-110) mg/dL Calcium 7.9 L (8.4-10.2) mg/dL Microbiology - Last 24 Hours (Table) 08/26/22 04:11 Blood Culture - Preliminary Blood No Growth after 120 hours 08/25/22 10:25 Blood Culture - Preliminary Blood No Growth after 120 hours 08/25/22 12:27 Stool Culture - Final Stool Assessment and Plan Assessment: 1. Acute kidney injury secondary to ATN secondary to septic shock and contrast- induced acute kidney injury. Patient received IV contrast on 08/23/2022. Creatinine was 1.74 on admission and peaked at 2.78 - 0.9 today. Nonoliguric. No hydronephrosis noted on CAT scan. 2. Chronic kidney disease stage IIIa with baseline creatinine in the range of 1.2-1.5 secondary to nephrosclerosis and long-term calcineurin inhibitor use. 3. Cryptogenic liver cirrhosis status post liver transplant at [facility]. 4. Metabolic acidosis secondary to acute kidney injury, lactic acidosis and IV fluids. Status post bicarb drip. 5. 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 Neurology following. 6. Septic shock secondary to Proteus UTI and bacteremia on antibiotics. Status post pressors. 7. Hyernatremia currently maintained on D5W and improved. Patient is also receiving free water flushes down his feeding tube. Plan: DC IV fluids once tube feeding is at goal.
[2022-08-31 11:49] LABS: Glucose,Whole Blood 159 mg/dL (70-110)
[2022-08-31] MEDS: ERTAPENEM 0.5 GM in SODIUM CHLORIDE 0.9% 50 ML IVPB SCH (12:52)
--- NOTE | 2022-08-31 13:57 | P.PN ---
Subjective Progress Note Date: 08/31/22 76-year-old the male came in with the comments of generalized weakness and a nonspecific abdominal pain diffuse. Patient the overall clinical condition gotten worse patient became more septic patient is on immunosuppressive therapy with tacrolimus, mycophenolate. Patient was subsequently admitted to ICU. Patient neurological status also has worsened because of which the it was believed the patient has stroke. Patient does have chronic right-sided weakness with strength of 3/5 which is his baseline. Patient underwent multiple imaging studies including her CT angios the head and neck as well as a CT of the head which showed acute ischemic stroke over the left parietal lobe with worsening weakness on the right side. Patient continued to be on antiplatelet therapy. Patient urine cultures came back positive for Proteus mirabilis and patient blood cultures are now positive for Proteus species possible source of infection being urinary tract infection this Proteus species is pansensitive to multiple antibiotics patient is presently on Zosyn. Patient liver enzymes on admission were within normal limits patient is a liver transplant patient patient liver enzymes went up minimally to 284 and ALP of 81 this is probably secondary to sepsis and patient has acute tumor necrosis secondary to sepsis with worsening creatinine of around 2.8 baseline creatinine of around 1. Patient was encephal opathic EEG was ordered.. Today morning patient is found to be hypoxic any arterial blood gases after which patient was intubated patient is presently on 100% FiO2 assist control ventilation with PEEP of 5. Patient with the has troponin of 0.49 secondary to sepsis. 08/26/2022 Patient continues to be monitored closely in the intensive care unit. Continues to be intubated and on mechanical ventilator with FiO2 of 40% with oxygen saturation of 100%, fever is improving currently 97.6. Blood pressure 106/60 which he has been continued on vasopressor support. Continues on propofol for sedation. Current antibiotic coverage of IV zosyn for proteus miribilis UTI and bacteremia. Infectious disease following. Cellcept remains on hold. Patient was able to receive prograf through NG tube today. Case was discussed with liver transplant team yesterday. Patient did have repeat brain CT completed yesterday showing evolving stroke left parietal/left front. No evidence for hemorrhagic conversion. Neurology following. Patient will be started on nutritional feeds today. As of yesterday family was undecided about pursuing transfer to another facility. They would still like to pursue transfer to [facility]. Did speak with Dr. Espinoza at [facility] yesterday and CT imaging was sent over at request of physician to review. Awaiting status update from [facility] transfer team regarding decision to accept. Family is aware of pending status as of yesterday with no new updates yet today. Labs today showing a white count of 12.6, platelet count of 93, sodium 142, potassium 4.4, BUN 31, creatinine 2.68, blood glucose 200s. AST 147, ALT 69, alk phos 124. 08/27/2022 Patient evaluated today in intensive care unit currently intubated on mechanical ventilator with FiO2 of 40%. He has remained afebrile. Currently maintaining blood pressures 130/60s off of pressor support. He continues to be sedated with propofol. Today he is responsive to painful stimulation of the right hand with minimal eye opening however continues to be drowsy, and from a neurological standpoint overall prognosis is poor. Plan today is to wean sedation and repeat brain CT if no neurological improvement. He is also continued on IV zosyn for proteus UTI and bacteremia. Repeat blood cultures are currently pending at this time, sputum culture is also pending. Continues on D5 normal saline at 75 mls per hour and urine output is about 675 mls in the last 24 hours. Labs today are showing sodium level of 145, potassium 3.9, BUN 42, creatinine 2.56, blood glucose in the 200s, calcium 6.7, magnesium 2.3, liver enzymes are continuing to improve AST 66, ALT 50, alk phos 82. Remains on tacrolimus and IV solumedrol. Platelet count has continued to drop currently now 49, hgb of 10.5, white count 4.6. Fibrinogen, PT/INR, pTT within normal limits. Hematology consultation requested for further investigation and will recommend to hold off on heparin subcutaneous for now. Noted that patient was on single antiplatelet therapy for acute evolving ischemic infarct and aspirin is currently being held as well now. Chest xray today showing Left lower lobe infiltrate. For now [facility] transfer pending this was done for family request. have not heard back if physician has accepted. 08/28/2022 Patient is evaluated in intensive care unit today. Pending return phone call from [facility] transfer regarding acceptance, the physician Dr. Rosas was going to speak with breakfast server. Patient repeat chest x-ray today showing possible atypical pulmonary edema with left lower lobe pneumonia remains within the differential. Sputum cultures positive for MRSA, repeat blood cultures are pending so far. Patient continues on the Zosyn and received a dose of IV vancomycin. Infectious disease is following patient closely. Continues on IV Solu-Medrol, he is currently maintained on norepinephrine at 0.01 mcgs, he is receiving propofol for sedation. IV fluids are infusing D5 in water at 75 mls per hour. Patient remains afebrile, heart rate 73, blood pressure 121/56, 97% oxygen saturation on the mechanical ventilator of FiO2 30%. Labs today are halley wing a white count of 3.9, hemoglobin 9.5, platelet count of 53, potassium 3.3, BUN 49, creatinine 2.29, blood glucose in the 120s. He had ABGs completed today. He is receiving enteral nutrition. Plan is for repeat CT today and from there we'll discuss with family and also follow up with [facility]. Prognosis remains poor at this time. 08/29/2022 Patient continues to be monitored closely in intensive care unit. He had chest xray today showing possible congestive heart failure with pneumonia not e xcluded. Repeat brain CT showing stable infarct posterior left centrum semiovale infarct. Patient has been extubated today. Currently on sedation holiday. Currently afebrile, heart rate 72, blood pressure 128/48. Maintaining oxygen saturations on 2L nasal cannula at 98%. Antibiotics have been adjusted by infectious disease. On IV linezolid and IV ertapenem. He has been weaned off of levophed. Continues on IV steroids. Labs today showing white count 4.1, hgb 9.1, BUN 46, creatinine 1.42, glucose 130s. Chest xray will be repeated tomorrow. Plan to continue monitoring and evaluate defecits. Family updated that Dr. Rosas with [facility] has denied patient for transfer to [facility]. 08/30/2022 Patient is evaluated today in intensive care unit he has been extubated and is currently maintained on 2L of oxygen via nasal cannula. He is nonverbal however he does follow verbal commands. Patient had chest xray this morning showing bilateral lower lobe infiltrate and pleural effusion greater on the left, stable. CHF vs. Pneumonia. Patient is being treated currently with IV linezolid and also IV ertapenem for proteus bacteremia and also sputum culture showing MRSA. Today his platelet count is 144, hgb stable at 9.5. He has NG tube in place and has been started on plavix and also aspirin 81 mg daily and subcu heparin. Kidney function continues to improve BUN 43, creatinine 1.04. Blood glucose in the 110s. He is receiving enteral nutrition with vital AF goal 75 mls per hour. Speech therapy has evaluated the patient today and will continue to remain nothing by mouth secondary to suspected severe dysphagia. Global aphasia. Pending re-evalution and further recommendations by neurology today. Patient most likely will need PEG tube placement and this will be discussed with family. 08/31/2022 Patient continues to be monitored closely in intensive care unit. Remains on 2L nasal cannula, has been weaned off pressor support. Continues on IV ertapenem and IV linezolid secondary to MRSA in the sputum and proteus bacteremia and UTI. Chest xray continues to show pneumonia versus chf. He is receiving enteral nutrition via NG tube. He is receiving vital AF at 50 mls/hr goal is 75. He is also on IV fluids normal saline at 50mls/hr. Speech therapy assessment showing minimal oral motility and speech continuing to recommend NPO and unable to take oral medication. Discussed this with daughter and that patient will require significant rehabilitation. Patients daughter somewhat understanding. For now infectious disease management of antibiotics, he has triple lumen catheter in place and arterial line. Nephrology following. Pulmonary breakfast server following. Would recommend PEG tube placement at this time secondary to dysphagia. Daughter agreeing to speak with surgery in consultation. Per daughter she works today she will be available tomorrow and she would like to speak with surgery prior to PEG tube placement. Labs today showing white count of 4.6, hgb of 9.4, sodium 138, potassium 4.1. BUN 38, creatinine 0.97. Blood pressure 124/57. Continues on aspirin/plavix dual antiplatelet combination. Unable to complete full review of systems. PHYSICAL EXAMINATION: GENERAL: This is a 76 year old male who appears stated age. Patient is being monitored in intensive care unit, lethargic. Extubated. HEENT: Pupils are round and equally reacting to light. EOMI. No scleral icterus. No conjunctival pallor. Normocephalic, atraumatic. No pharyngeal erythema. No thyromegaly. CARDIOVASCULAR: S1 and S2 present. No murmurs, rubs, or gallops. Tachycardic. PULMONARY: Coarse ronchorous lungs sounds, no wheezing noted. ABDOMEN: Soft, nontender, nondistended, normoactive bowel sounds. No palpable organomegaly. Has liquid stool, fecal management system in place, indwelling ca theter in place. MUSCULOSKELETAL: No joint swelling or deformity. EXTREMITIES: No cyanosis, clubbing, or pedal edema. NEUROLOGICAL: Diffuse global weakness, with right side flaccid currently. Garbled speech. Has breathlessness when attempting to speak. SKIN: No rashes. Assessment and Plan Assessment -Septic shock secondary to urinary tract infection patient has Proteus mirabilis UTI and bacteremia. MRSA positive sputum. Continues on IV linezolid, IV ertapenem. Infectious disease following. Acute ischemic infarct left parietal region in the left STEVE territory with severe right sided weakness/hemiplegia, continues on dual antiplatelet therapy with aspirin/plavix. Cryptogenic vs. embolic. Acute hypoxic respiratory failure secondary to sepsis/possible aspiration patient is currently extubated on 2L nasal cannula Acute kidney injury secondary to acute tubular necrosis secondary to septic shock. Creatinine today 0.97 today nephrology is following. Elevated troponin secondary to septic shock Hypoglycemia resolved continues on enteral nutrition Metabolic acidosis secondary to acute kidney injury, lactic acidosis, resolved Elevated transaminases, initially negative, possibly from sepsis which they have now normalized. 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 [facility] has denied patient for transfer to [facility]. History of hypertension patient is currently normotensive weaned off of pressor support Stage 2 sacral decub History of gastroesophageal reflux disease BPH Hyperlipidemia History of old stroke residual weakness on the right side. GI Prophylaxis DVT Prophylaxis subcutaneous heparin Full Code Neurology has signed off, patient continues on dual antiplatelet therapy with aspirin/plavix. Stop aspirin after 21 days and continue on plavix 75 mg po daily indefinitely. He has NG tube in place. He is receiving enteral nutrition. Once patient reaches goal of 75 mls/hr, nephrology recommending to discontinue IV fluids. NPO status with severe dysphagia and also global aphasia. Patient is high risk for aspiration secondary to poor oral motility. Most likely will need PEG tube placement. Discussed with family, surgery has been consulted and family would like to meet with them tomorrow. Infectious disease recommendations for antibiotic therapy. Has triple lumen PICC line in place. Physical therapy evaluation recommended for subacute rehab with 24/7 care at this time. Continues to be monitored closely in intensive care unit. The impression and plan of care has been dictated by Aisha Taylor, Nurse Practitioner as directed. Dr. Harsha MD I have performed a history and physical examination and medical decision making of this patient, discussed the same with the dictator, and agree with the dictators assessment and plan as written, documented as a scribe. Based on total visit time, I have performed more than 50% of this visit. Objective - Vital Signs Vital signs: Vital Signs Temp 98.3 F 08/31/22 12:00 Pulse 92 08/31/22 13:00 Resp 16 08/31/22 13:00 BP 124/57 08/31/22 13:00 Pulse Ox 97 08/31/22 13:00 FiO2 30 08/29/22 12:49 Intake & Output 08/30/22 08/31/22 08/31/22 18:59 06:59 18:59 Intake Total 1425 1279 958 Output Total 1515 1665 725 Balance -90 -386 233 Weight 109 kg 107.9 kg Intake: IV 50 639 568 .9 KVO 20 Ertapenem 0.5 gm In 50 Sodium Chloride 0.9% 50 ml @ 100 mls/hr IVPB Q24H [facility] Rx#:[id number] Linezolid 600 mg In 300 Dextrose/Water 1 300ml. bag @ 150 mls/hr IVPB Q12HR@0000,1200 [facility]ARA Rx#: [id number] Pressure bag 30 39 18 Sodium Chloride 0.9% 1, 600 200 000 ml @ 50 mls/hr IV . Q20H [facility]ARA Rx#:[id number] Intake, IV Titration 850 50 Amount Ertapenem 0.5 gm In 50 Sodium Chloride 0.9% 50 ml @ 100 mls/hr IVPB Q24H [facility] Rx#:[id number] Linezolid 600 mg In 300 Dextrose/Water 1 300ml. bag @ 150 mls/hr IVPB Q12HR@0000,1200 [facility] Rx#: [id number] Sodium Chloride 0.9% 1, 500 50 000 ml @ 50 mls/hr IV . Q20H [facility]ARA Rx#:[id number] Tube Feeding 435 500 330 Other 90 90 60 Output: Urine 1515 1615 725 Stool 50 Other: Voiding Method Indwelling Catheter Indwelling Catheter Indwelling Catheter ABP, PAP, CO, CI - Last Documented Arterial Blood Pressure 145/46 - Labs CBC & Chem 7: 08/31/22 05:12 08/31/22 05:12 Labs: Abnormal Lab Results - Last 24 Hours (Table) 08/30/22 08/31/22 08/31/22 Range/Units 17:28 05:12 05:12 RBC 3.47 L (4.30-5.90) m/uL Hgb 9.4 L (13.0-17.5) gm/dL Hct 30.3 L (39.0-53.0) % Lymphocytes # 0.8 L (1.0-4.8) k/uL BUN 38 H (9-20) mg/dL POC Glucose (mg/dL) 127 H (70-110) mg/dL Calcium 7.9 L (8.4-10.2) mg/dL 08/31/22 Range/Units 11:46 RBC (4.30-5.90) m/uL Hgb (13.0-17.5) gm/dL Hct (39.0-53.0) % Lymphocytes # (1.0-4.8) k/uL BUN (9-20) mg/dL POC Glucose (mg/dL) 159 H (70-110) mg/dL Calcium (8.4-10.2) mg/dL Microbiology - Last 24 Hours (Table) 08/25/22 10:25 Blood Culture - Final Blood No Growth after 144 hours 08/26/22 04:11 Blood Culture - Preliminary Blood No Growth after 120 hours 08/25/22 12:27 Stool Culture - Final Stool Assessment and Plan Time with Patient: Greater than 30
--- NOTE | 2022-08-31 15:32 | P.GSCN ---
History of Present Illness Consult date: 08/31/22 History of present illness: CHIEF COMPLAINT: Weakness Reason for consult: PEG tube placement HISTORY OF PRESENT ILLNESS: This is a 76-year-old male with a known history of 2 liver transplants. He presented to the hospital with complaints of weakness. Patient admitted to the hospital with sepsis and evidence of septic shock he was also found to have evidence of a stroke. Patient patient did require to be intubated during his catheterization. He is currently extubated on 2 L of oxygen. He is essentially nonverbal. And he has right-sided hemiplegia. Patient's with bacteremia, UTI and pneumonia. He is on antibiotics. Patient failed his swallow evaluation. Surgical service has been consulted for PEG tube placement. PAST MEDICAL HISTORY: See below PAST SURGICAL HISTORY: See below MEDICATIONS: See below ALLERGIES: See below SOCIAL HISTORY: No illicit drug use. REVIEW OF SYSTEMS: CONSTITUTIONAL: Denies fever or chills. HEENT: Denies blurred vision, vision changes, or eye pain. Denies hemoptysis CARDIOVASCULAR: Denies chest pain or pressure. RESPIRATORY: No shortness of breath. GASTROINTESTINAL: See HPI for pertinent findings HEMATOLOGIC: Denies bleeding disorders. GENITOURINARY: Denies any blood in urine or increased urinary frequency. SKIN: Denies pruitis. Denies rash. PHYSICAL EXAM: VITAL SIGNS: Reviewed GENERAL: Well-developed in no acute distress. HEENT: No sclera icterus. Extraocular movements grossly intact. Moist buccal mucosa. Head is atraumatic, normocephalic. No nasal drainage. ABDOMEN: Soft. Nondistended. Nontender. Old healed surgical scars in the midline and right upper quadrant NEUROLOGIC: Alert and oriented. Cranial nerves II through XII grossly intact. LABORATORY DATA: WBC is 4.6 hemoglobin 9.4 platelets have improved from 53 up to 201 Sodium is 138 potassium 4.1 creatinine 0.97 Albumin 2.4 IMAGING: ASSESSMENT: 1. Dysphagia and failed swallow eval 2. CVA 3. Severe protein calorie malnutrition 4. Sepsis PLAN: -Patient scheduled for EGD with PEG tube placement tomorrow, 09/01/[address] Burris -Hold Plavix -Hold tube feeds after midnight -Continue ICU management -Continue supportive care -Hold SC Heparin starting with tonight's dose Thank you for this consultation Physician Switch Technician note has been reviewed by physician. Signing provider agrees with the documented findings, assessment, and plan of care. I have personally seen and examined the patient, reviewed the TRIAGE RN /PAs history, exam and MDM and agree with the assessment and plan as written. Based on total visit time, I have performed more than 50% of the visit. As above: Patient with dysphagia thought to be related to recent CVA. We were consulted for PEG tube placement. Spoke with the patient's daughter at length. She would like to further discuss her father's issues with critical care before consenting for PEG tube placement. Can proceed with PEG tube placement once consent obtained. Patient higher risk for procedural complications because of anticoagulation and previous subcostal scar from liver transplant. 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 Past Anesthesia/Blood Transfusion Reactions: No Reported Reaction Additional Past Anesthesia/Blood Transfusion Reaction / Comm: Pt received blood in past without reaction. hx jaw fx- had surgery and has a plate. a little confusion when first waking up Past Psychological History: No Psychological Hx Reported Smoking Status: Never smoker Past Alcohol Use History: None Reported Past Drug Use History: None Reported - Past Family History Father Family Medical History: Cancer Additional Family Medical History / Comment(s): Father was healthy. He around the age of 83 yrs. Mother Family Medical History: Myocardial Infarction ([place]) Additional Family Medical History / Comment(s): Mother of a [place] at the age of 83 yrs. Medications and Allergies Home Medications Medication Instructions Recorded Confirmed Type Metoprolol Succinate [Toprol XL] 50 mg PO HS 07/20/15 08/23/22 History Tacrolimus [Prograf] 0.5 mg PO BID 07/20/15 08/23/22 History Tamsulosin [Flomax] 0.4 mg PO HS 07/20/15 08/23/22 History dexAMETHasone ORAL [Hexadrol] 0.5 mg PO HS 07/20/15 08/23/22 History mycophenolate mofetiL [Cellcept] 1,000 mg PO BID 07/20/15 08/23/22 History Pravastatin Sodium [Pravachol] 10 mg PO HS 03/03/17 08/23/22 History Aspirin EC [Ecotrin Low Dose] 81 mg PO HS 03/08/21 08/23/22 History Latanoprost [Xalatan 0.005%] 1 drop BOTH EYES HS 11/28/21 08/23/22 History Cholecalciferol [Vitamin D3 (125 125 mcg PO HS 08/23/22 08/23/22 History Mcg = 5000 Iu)] Multivitamins, Thera [Multivitamin 1 tab PO HS 08/23/22 08/23/22 History (formulary)] Omeprazole Magnesium [PriLOSEC OTC] 20 mg PO HS 08/23/22 08/23/22 History Allergies Allergy/AdvReac Type Severity Reaction Status Date / Time No Known Allergies Allergy Verified 08/23/22 07:35 Surgical - Exam Vital Signs Temp Pulse Resp BP Pulse Ox 98.3 F 96 20 91/44 99 08/23/22 01:03 08/23/22 01:03 08/23/22 01:03 08/23/22 01:03 08/23/22 01:03 Results - Labs 08/31/22 05:12 08/31/22 05:12 Abnormal Lab Results - Last 24 Hours (Table) 08/30/22 08/31/22 08/31/22 Range/Units 17:28 05:12 05:12 RBC 3.47 L (4.30-5.90) m/uL Hgb 9.4 L (13.0-17.5) gm/dL Hct 30.3 L (39.0-53.0) % Lymphocytes # 0.8 L (1.0-4.8) k/uL BUN 38 H (9-20) mg/dL POC Glucose (mg/dL) 127 H (70-110) mg/dL Calcium 7.9 L (8.4-10.2) mg/dL 08/31/22 Range/Units 11:46 RBC (4.30-5.90) m/uL Hgb (13.0-17.5) gm/dL Hct (39.0-53.0) % Lymphocytes # (1.0-4.8) k/uL BUN (9-20) mg/dL POC Glucose (mg/dL) 159 H (70-110) mg/dL Calcium (8.4-10.2) mg/dL Microbiology - Last 24 Hours (Table) 08/25/22 10:25 Blood Culture - Final Blood No Growth after 144 hours 08/26/22 04:11 Blood Culture - Preliminary Blood No Growth after 120 hours 08/25/22 12:27 Stool Culture - Final Stool Diabetes panel 08/31/22 Range/Units 05:12 Sodium 138 (137-145) mmol/L Potassium 4.1 (3.5-5.1) mmol/L Chloride 107 (98-107) mmol/L Carbon Dioxide 27 (22-30) mmol/L BUN 38 H (9-20) mg/dL Creatinine 0.97 (0.66-1.25) mg/dL Glucose 98 (74-99) mg/dL Calcium 7.9 L (8.4-10.2) mg/dL Calcium panel 08/31/22 Range/Units 05:12 Calcium 7.9 L (8.4-10.2) mg/dL Pituitary panel 08/31/22 Range/Units 05:12 Sodium 138 (137-145) mmol/L Potassium 4.1 (3.5-5.1) mmol/L Chloride 107 (98-107) mmol/L Carbon Dioxide 27 (22-30) mmol/L BUN 38 H (9-20) mg/dL Creatinine 0.97 (0.66-1.25) mg/dL Glucose 98 (74-99) mg/dL Calcium 7.9 L (8.4-10.2) mg/dL Adrenal panel 08/31/22 Range/Units 05:12 Sodium 138 (137-145) mmol/L Potassium 4.1 (3.5-5.1) mmol/L Chloride 107 (98-107) mmol/L Carbon Dioxide 27 (22-30) mmol/L BUN 38 H (9-20) mg/dL Creatinine 0.97 (0.66-1.25) mg/dL Glucose 98 (74-99) mg/dL Calcium 7.9 L (8.4-10.2) mg/dL
--- NOTE | 2022-08-31 17:32 | P.PN ---
Subjective Progress Note Date: 08/30/22 08/30/2022: Patient was seen for a follow-up. Patient is much more alert and awake. Still somewhat groggy, slightly encephalopathic. Patient denies headache. Patient is laying comfortably in the bed. No arrhythmia. 08/29/2022: Patient was seen for a follow-up. Patient initially seen by Dr. Poncho De Santiago. Please refer to his note for details. Patient is a 76-year-old right-handed male who has presented with acute left parietal stroke with right hemiplegia. Patient was initially intubated, placed on a ventilator because he was not able to protect his airway. EEG was negative for seizure. Patient has no significant carotid stenosis about 50%. CTA of the head and neck worse recommended once his kidney functions improved. Patient not on any antiplatelet medication because he was thrombocytopenic. Family requested patient to be transferred to [facility], but it has been declined. Repeat computed tomography scan was performed. Patient was seen for a follow-up. Patient's grandson was present. He called his aunt, who is a caregiver to the patient and she was present over the speaker phone. Patient has been extubated earlier today. Patient is on contact isolation for MRSA. Patient's right arm and right leg is flaccid. He has severely garbled speech. Patient has been on aspirin 81 mg daily prior to arrival to the hospital. Prior workup: Urine culture is positive for Proteus mirabilis. Blood culture is positive for Proteus mirabilis Lipid panel is triglyceride 112, cholesterol 111, LDL is 61, HDL is 27. Ammonia level is less than [address] of the head is reported as cerebral atrophy. Old small cortical infarct in the left internal capsule. No acute abnormality. CT angiography of the head and neck is reported as angiogram is nondiagnostic since there is no vascular contrast. There is cerebral or cortical atrophy. No acute intercranial abnormality. No significant abnormality of the neck. Mild spondylitic changes in the cervical spine. Repeat CT of the head as reported as there is a 4 cm poorly marginated area of hypodensity in the left parietal lobe consistent with acute infarct and isn't changed compared to recent exam. No hemorrhage seen. Cerebral atrophy. Then later, reading radiologist has addendum and reports it is that acute infarct is a change compared to recent exam. I personally reviewed the CT of the head on the most recent CT that was done last and I felt the left parietal seemed acute. There is no intraparenchymal hemorrhage. And then I was compared it to initial CT head on presentation, I felt different in which, I did not notice any remarka ble acute ischemic in left parietal on initial CT. Carotid duplex was reported as there is bilateral plaque formation. There is bilateral mild elevation of internal carotid artery velocity. There is antegrade flow in the vertebral arteries. The images and measurements suggest 50-70% stenosis in both internal carotid arteries. Repeat CT head on 08/25/2022 is reported as increased size of low attenuation region in the medial left frontal/parietal lobe consistent with evolving acute/subacute infarct compared to the prior CT brain on 08/23/2022. No evidence for hemorrhagic conversion. I personally reviewed the image and I do agree there is evolution of the stroke but I feel mostly it's over the left parietal stroke than frontal. Routine EEG on 08/25/2022: Is abnormal. The background slowing suggestive of moderate encephalopathy. There is no focal slowing, epileptiform discharge or seizure on the EEG. Excessive beta activity and some diffuse suppression seen during the study is likely due to medication effect (Ativan). 2D echo is reported as likely normal left ventricle size and systolic function. Normal left atrial size. Objective - Vital Signs Vital signs: Vital Signs Temp 99.2 F 08/31/22 16:00 Pulse 93 08/31/22 17:00 Resp 26 H 08/31/22 17:00 BP 129/51 08/31/22 17:00 Pulse Ox 97 08/31/22 17:00 FiO2 30 08/29/22 12:49 Intake & Output 08/30/22 08/31/22 08/31/22 18:59 06:59 18:59 Intake Total 1425 1279 1360 Output Total 1515 1665 1525 Balance -90 -386 -165 Weight 109 kg 107.9 kg Intake: IV 50 639 730 .9 KVO 20 Ertapenem 0.5 gm In 50 Sodium Chloride 0.9% 50 ml @ 100 mls/hr IVPB Q24H [facility] Rx#:[id number] Linezolid 600 mg In 300 Dextrose/Water 1 300ml. bag @ 150 mls/hr IVPB Q12HR@0000,1200 [facility] Rx#: [id number] Pressure bag 30 39 30 Sodium Chloride 0.9% 1, 600 350 000 ml @ 50 mls/hr IV . Q20H [facility] Rx#:[id number] Intake, IV Titration 850 50 Amount Ertapenem 0.5 gm In 50 Sodium Chloride 0.9% 50 ml @ 100 mls/hr IVPB Q24H [facility] Rx#:[id number] Linezolid 600 mg In 300 Dextrose/Water 1 300ml. bag @ 150 mls/hr IVPB Q12HR@0000,1200 [facility] Rx#: [id number] Sodium Chloride 0.9% 1, 500 50 000 ml @ 50 mls/hr IV . Q20H [facility] Rx#:[id number] Tube Feeding 435 500 570 Other 90 90 60 Output: Urine 1515 1615 1525 Stool 50 Other: Voiding Method Indwelling Catheter Indwelling Catheter Indwelling Catheter ABP, PAP, CO, CI - Last Documented Arterial Blood Pressure 142/48 - Exam Patient is slightly groggy, but otherwise awake and becomes somewhat semi-alert. Patient has significant slurred speech, difficult to understand. Patient has right facial weakness. Patient has about 4-teacher advisor on the right, 4+ on the left. Proximally the strength appears much better on the left as compared to right. Patient's right leg is flaccid. Patient has good strength of the left ankle dorsiflexion. Patient has peripheral edema. Hip flexion was about 2. - Labs CBC & Chem 7: 08/31/22 05:12 08/31/22 05:12 Labs: Abnormal Lab Results - Last 24 Hours (Table) 08/30/22 08/31/22 08/31/22 Range/Units 17:28 05:12 05:12 RBC 3.47 L (4.30-5.90) m/uL Hgb 9.4 L (13.0-17.5) gm/dL Hct 30.3 L (39.0-53.0) % Lymphocytes # 0.8 L (1.0-4.8) k/uL BUN 38 H (9-20) mg/dL POC Glucose (mg/dL) 127 H (70-110) mg/dL Calcium 7.9 L (8.4-10.2) mg/dL 08/31/22 Range/Units 11:46 RBC (4.30-5.90) m/uL Hgb (13.0-17.5) gm/dL Hct (39.0-53.0) % Lymphocytes # (1.0-4.8) k/uL BUN (9-20) mg/dL POC Glucose (mg/dL) 159 H (70-110) mg/dL Calcium (8.4-10.2) mg/dL Microbiology - Last 24 Hours (Table) 08/25/22 10:25 Blood Culture - Final Blood No Growth after 144 hours 08/26/22 04:11 Blood Culture - Preliminary Blood No Growth after 120 hours Assessment and Plan Assessment: * Acute ischemic stroke over left parietal region in the left STEVE territory with severe right sided weakness. On examination he has right sided hemiplegia, dysarthria, right facial weakness. No IV tpa since unknown last normal (but seems outside window). His CT shows evolution of his left parietal/frontal (but feel more parietal stroke). Etiology of stroke is cryptogenic but appears embolic. * Altered mental status seems due to multifactorial: Septic encephalopathy (UTI), blood culture is positive for proteus species, metabolic encephalopathy due to worsening kidney function, electrolyte disturbance and due to stroke. Lastly on sedation (Propofol). * Carotid stenosis 50-70% bilateral ICA on carotid duplex but was felt just at 50% by vascular surgery team. * Acute Thrombocytopenia, improved. * Sepsis (likely due to UTI and blood is positive for proteus species) * Acute on chronic kidney insufficiency--minimal to mild improvement * Elevated liver function with AST currently is 284 and ALT of 81. * History of old stroke with some weakness possible lower weakness but was able to ambulate * History of liver failure s/p transplant Plan: Repeat CT head from 08/28/2022 revealed stable posterior left centrum semiovale infarct. I personally reviewed CT head, appears to involve the left STEVE territory involving the left parietal region. No hemorrhage. Patient has failed aspirin regimen. We will start patient on Plavix 75 mg daily. Recommend continuing dual antiplatelet medication for 21 days, thereafter stop aspirin and continue Plavix indefinitely. NG tube has been placed. Hemoglobin A1c 5.7. Lipid panel with cholesterol 111, LDL 61, HDL 27 and triglycerides 112. Continue Lipitor 40 mg daily at bedtime for secondary stroke prophylaxis Sign Language Instructor vascular surgery team for the carotid stenosis and they felt carotid stenosis at 50%. They did not feel he was a surgical candidate at this time. PT, OT and LOGISTICS DIRECTOR are consulted Continue neuro checks Avoid hypotensive episodes. I.D. team is consulted for his sepsis. On cardiac monitoring. We'll defer the rest of the medical management to the primary and ICU team For DVT prophylaxis use SCD's. Subq heparin if no medical contraindications. Discussed with patient's nursing staff in detail.
--- NOTE | 2022-08-31 17:43 | P.PN ---
Subjective Progress Note Date: 08/31/22 08/31/2022: Patient was seen for a follow-up. Patient clinically and changes compared to yesterday. Patient is laying in the bed. Has NG tube in place. 08/30/2022: Patient was seen for a follow-up. Patient is much more alert and awake. Still somewhat groggy, slightly encephalopathic. Patient denies headache. Patient is laying comfortably in the bed. No arrhythmia. 08/29/2022: Patient was seen for a follow-up. Patient initially seen by Dr. Heather De Santiago. Please refer to his note for details. Patient is a 76-year-old right-handed male who has presented with acute left parietal stroke with right hemiplegia. Patient was initially intubated, placed on a ventilator because he was not able to protect his airway. EEG was negative for seizure. Patient has no significant carotid stenosis about 50%. CTA of the head and neck worse recommended once his kidney functions improved. Patient not on any antiplatelet medication because he was thrombocytopenic. Family requested patient to be transferred to [facility], but it has been declined. Repeat computed tomography scan was performed. Patient was seen for a follow-up. Patient's grandson was present. He called his aunt, who is a caregiver to the patient and she was present over the speaker phone. Patient has been extubated earlier today. Patient is on contact isolation for MRSA. Patient's right arm and right leg is flaccid. He has severely garbled speech. Patient has been on aspirin 81 mg daily prior to arrival to the hospital. Prior workup: Urine culture is positive for Proteus mirabilis. Blood culture is positive for Proteus mirabilis Lipid panel is triglyceride 112, cholesterol 111, LDL is 61, HDL is 27. Ammonia level is less than [address] of the head is reported as cerebral atrophy. Old small cortical i nfarct in the left internal capsule. No acute abnormality. CT angiography of the head and neck is reported as angiogram is nondiagnostic since there is no vascular contrast. There is cerebral or cortical atrophy. No acute intercranial abnormality. No significant abnormality of the neck. Mild spondylitic changes in the cervical spine. Repeat CT of the head as reported as there is a 4 cm poorly marginated area of hypodensity in the left parietal lobe consistent with acute infarct and isn't changed compared to recent exam. No hemorrhage seen. Cerebral atrophy. Then later, reading radiologist has addendum and reports it is that acute infarct is a change compared to recent exam. I personally reviewed the CT of the head on the most recent CT that was done last and I felt the left parietal seemed acute. There is no intraparenchymal hemorrhage. And then I was compared it to initial CT head on presentation, I felt different in which, I did not notice any remarkable acute ischemic in left parietal on initial CT. Carotid duplex was reported as there is bilateral plaque formation. There is bilateral mild elevation of internal carotid artery velocity. There is antegrade flow in the vertebral arteries. The images and measurements suggest 50-70% stenosis in both internal carotid arteries. Repeat CT head on 08/25/2022 is reported as increased size of low attenuation region in the medial left frontal/parietal lobe consistent with evolving acute/s ubacute infarct compared to the prior CT brain on 08/23/2022. No evidence for hemorrhagic conversion. I personally reviewed the image and I do agree there is evolution of the stroke but I feel mostly it's over the left parietal stroke than frontal. Routine EEG on 08/25/2022: Is abnormal. The background slowing suggestive of moderate encephalopathy. There is no focal slowing, epileptiform discharge or seizure on the EEG. Excessive beta activity and some diffuse suppression seen during the study is likely due to medication effect (Ativan). 2D echo is reported as likely normal left ventricle size and systolic function. Normal left atrial size. Objective - Vital Signs Vital signs: Vital Signs Temp 98.3 F 08/31/22 12:00 Pulse 90 08/31/22 15:27 Resp 18 08/31/22 15:00 BP 120/58 08/31/22 15:00 Pulse Ox 98 08/31/22 15:00 FiO2 30 08/29/22 12:49 Intake & Output 08/30/22 08/31/22 08/31/22 18:59 06:59 18:59 Intake Total 1425 1279 1134 Output Total 1515 1665 1175 Balance -90 -386 -41 Weight 109 kg 107.9 kg Intake: IV 50 639 624 .9 KVO 20 Ertapenem 0.5 gm In 50 Sodium Chloride 0.9% 50 ml @ 100 mls/hr IVPB Q24H [facility] Rx#:[id number] Linezolid 600 mg In 300 Dextrose/Water 1 300ml. bag @ 150 mls/hr IVPB Q12HR@0000,1200 [facility] Rx#: [id number] Pressure bag 30 39 24 Sodium Chloride 0.9% 1, 600 250 000 ml @ 50 mls/hr IV . Q20H [facility] Rx#:[id number] Intake, IV Titration 850 50 Amount Ertapenem 0.5 gm In 50 Sodium Chloride 0.9% 50 ml @ 100 mls/hr IVPB Q24H [facility] Rx#:[id number] Linezolid 600 mg In 300 Dextrose/Water 1 300ml. bag @ 150 mls/hr IVPB Q12HR@0000,1200 [facility] Rx#: [id number] Sodium Chloride 0.9% 1, 500 50 000 ml @ 50 mls/hr IV . Q20H [facility] Rx#:[id number] Tube Feeding 435 500 450 Other 90 90 60 Output: Urine 1515 1615 1175 Stool 50 Other: Voiding Method Indwelling Catheter Indwelling Catheter Indwelling Catheter ABP, PAP, CO, CI - Last Documented Arterial Blood Pressure 152/48 - Exam Patient is slightly groggy, but otherwise awake and becomes somewhat semi-alert. Patient has significant slurred speech, difficult to understand. Patient appropriately answering yes and no questions. Patient able to verbalize eyeglasses and pen, although appears quite dysarthric. Patient has right facial weakness. Patient has about 4-vp of global marketing on the right, 4+ on the left. Proximally the strength appears much better on the left as compared to right. Patient's right leg is flaccid. Patient has good strength of the left ankle dorsiflexion. Patient has peripheral edema. Hip flexion was about 2. - Labs CBC & Chem 7: 08/31/22 05:12 08/31/22 05:12 Labs: Abnormal Lab Results - Last 24 Hours (Table) 08/30/22 08/31/22 08/31/22 Range/Units 17:28 05:12 05:12 RBC 3.47 L (4.30-5.90) m/uL Hgb 9.4 L (13.0-17.5) gm/dL Hct 30.3 L (39.0-53.0) % Lymphocytes # 0.8 L (1.0-4.8) k/uL BUN 38 H (9-20) mg/dL POC Glucose (mg/dL) 127 H (70-110) mg/dL Calcium 7.9 L (8.4-10.2) mg/dL 08/31/22 Range/Units 11:46 RBC (4.30-5.90) m/uL Hgb (13.0-17.5) gm/dL Hct (39.0-53.0) % Lymphocytes # (1.0-4.8) k/uL BUN (9-20) mg/dL POC Glucose (mg/dL) 159 H (70-110) mg/dL Calcium (8.4-10.2) mg/dL Microbiology - Last 24 Hours (Table) 08/25/22 10:25 Blood Culture - Final Blood No Growth after 144 hours 08/26/22 04:11 Blood Culture - Preliminary Blood No Growth after 120 hours Assessment and Plan Assessment: * Acute ischemic stroke over left parietal region in the left STEVE territory with right hemiparesis, leg much more involved as compared to the right arm. Mechanism of stroke likely from moderate ICA stenosis. * Altered mental status seems due to metabolic encephalopathy, improved. * Dysphagia, failed swallow, likely due to CVA. * Carotid stenosis 50-70% bilateral ICA on carotid duplex but was felt just at 50% by vascular surgery team. * Acute Thrombocytopenia, resolved. * Sepsis (likely due to UTI and blood is positive for proteus species) * Renal insufficiency, resolved * Elevated liver function, resolved. * History of old stroke with some weakness possible lower weakness but was able to ambulate * History of liver failure s/p transplant Plan: Repeat CT head from 08/28/2022 revealed stable posterior left centrum semiovale infarct. I personally reviewed CT head, appears to involve the left STEVE territory involving the left parietal region. No hemorrhage. Patient has failed aspirin regimen. We will start patient on Plavix 75 mg daily. Recommend continuing dual antiplatelet medication for 21 days, thereafter stop aspirin and continue Plavix indefinitely. NG tube has been placed. Hemoglobin A1c 5.7. Lipid panel with cholesterol 111, LDL 61, HDL 27 and triglycerides 112. Continue Lipitor 40 mg daily at bedtime for secondary stroke prophylaxis 2-D echo revealed normal left-ventricular size and systolic function. EF is 55- 60%. Small left ventricular cavity. Borderline LVH. Left atrial size is normal. 2-D echo revealed no obvious embolic source. Patient CVA likely due to ICA stenosis. Antiplatelet regimen changed as above. No definitive indication for ABBY. Carotid Doppler revealed 50-70% stenosis bilateral ICA. Antegrade flow in both vertebral arteries. Vascular surgery team for the carotid stenosis and they felt carotid stenosis at 50%. They did not feel he was a surgical candidate at this time. PT, OT and EYEGLASS LENS CUTTER are consulted Patient to undergo PEG placement in the morning. Continue neuro checks We'll defer the rest of the medical management to the primary and ICU team For DVT prophylaxis use SCD's. Subq heparin if no medical contraindications. Discussed with patient's nursing staff in detail. Neurologically clear for transfer to rehab facility.
[2022-08-31 18:11] LABS: Glucose,Whole Blood 128 mg/dL (70-110)
[2022-08-31] MEDS: LATANOPROST 0.005% OPHTH DROPS 2.5 ML BTL BOTH EYES SCH (20:26)
[2022-08-31 23:56] LABS: Glucose,Whole Blood 98 mg/dL (70-110)
[2022-09-01] MEDS: INSULIN ASPART (NovoLOG) 100 UNIT/ML VIAL SQ SCH ×4 (00:40→18:15)
[2022-09-01] MEDS: SODIUM CHLORIDE 0.9% 1,000 ML IV SCH ×2 (00:41→04:35)
[2022-09-01] MEDS: LINEZOLID 600 MG in DEXTROSE/WATER 1 300ML.BAG IVPB SCH ×3 (00:42→23:38)
[2022-09-01 05:54] LABS: Glucose,Whole Blood 104 mg/dL (70-110)
[2022-09-01] MEDS: IPRATROPIUM-ALBUTEROL 3 ML NEB INHALATION SCH ×4 (07:13→20:24)
--- NOTE | 2022-09-01 08:39 | XR ---
EXAMINATION TYPE: XR chest 1V portable DATE OF EXAM: 09/01/2022 COMPARISON: 08/31/2022 HISTORY: Shortness of breath TECHNIQUE: Single frontal view of the chest is obtained. FINDINGS: Bilateral airspace disease and pleural effusion is stable. Left- sided central line is see n and there is apical pleural thickening greater on the right. Hypertrophic changes of the spine. NG tube seen in the abdomen with the tip likely within the gastric body. IMPRESSION: Stable bilateral pleural-parenchymal changes correlate for pneumonia otherwise consider CHF
--- NOTE | 2022-09-01 08:43 | P.PN ---
Subjective Progress Note Date: 08/29/22 Principal diagnosis: Bacteremia Patient is a 76-year-old -[place] male past medical history significant for liver failure status post liver transplant or redness of his medication presented to hospital generalized weakness did have a positive UA concerning for UTI patient subsequently did have a positive blood culture. Patient has been extubated 08/29/2022 On today's evaluation that is 08/29/2022 the patient continues to be afebrile, the patient is hemodynamically stable not requiring any pressor support , patient is breathing comfortably nasal cannula oxygen patient is slightly lethargic and unable to provide any history no vomiting or diarrhea reported by the nursing staff Objective - Vital Signs Vital signs: Vital Signs Temp 98.5 F 08/29/22 12:00 Pulse 83 08/29/22 12:00 Resp 25 H 08/29/22 12:00 BP 108/44 08/29/22 10:15 Pulse Ox 97 08/29/22 12:00 FiO2 30 08/29/22 12:49 Intake & Output 08/28/22 08/29/22 08/29/22 18:59 06:59 18:59 Intake Total 1142.558 262.664 460.030 Output Total 658 1190 580 Balance 484.558 -927.336 -119.970 Weight 102.4 kg Intake: IV 36 33 113 .9 KVO 95 Pressure bag 36 33 18 Intake, IV Titration 1106.558 229.664 289.030 Amount Dextrose 5% in Water 1, 900 75 75 000 ml @ 75 mls/hr IV . [id number] [facility] Rx#:[id number] Ertapenem 0.5 gm In 50 Sodium Chloride 0.9% 50 ml @ 100 mls/hr IVPB Q24H [facility] Rx#:[id number] Linezolid 600 mg In 150 Dextrose/Water 1 300ml. bag @ 150 mls/hr IVPB Q12HR@0000,1200 [facility] Rx#: [id number] Norepinephrine 32 mg In 4.343 1.084 Sodium Chloride 0.9% 218 ml @ 0.03 MCG/KG/MIN 1. 336 mls/hr IV .Q24H [facility] Rx#:[id number] propofoL 1,000 mg In 152.215 153.58 64.030 Empty Bag 1 bag @ 15 MCG/ KG/MIN 8.55 mls/hr IV . [id number] [facility] Rx#:[id number] Tube Feeding 58 Output: Urine 655 1190 580 Stool 3 Other: Voiding Method Indwelling Catheter Indwelling Catheter Indwelling Catheter # Bowel Movements 1 1 1 ABP, PAP, CO, CI - Last Documented Arterial Blood Pressure 153/61 - Exam GENERAL DESCRIPTION: An elderly male lying in bed in no distress RESPIRATORY SYSTEM: Unlabored breathing , decreased breath sounds at bases HEART: S1 S2 regular rate and rhythm , ABDOMEN: Soft , no tenderness EXTREMITIES: No edema feet - Labs CBC & Chem 7: 08/31/22 05:12 08/31/22 05:12 Labs: Abnormal Lab Results - Last 24 Hours (Table) 08/27/22 08/28/22 08/28/22 Range/Units 11:43 18:48 23:28 RBC (4.30-5.90) m/uL Hgb (13.0-17.5) gm/dL Hct (39.0-53.0) % MCHC (31.0-37.0) g/dL Plt Count (150-450) k/uL Lymphocytes # (1.0-4.8) k/uL ABG HCO3 (21-25) mmol/L ABG Total CO2 (19-24) mmol/L ABG O2 Saturation (94-97) % Chloride (98-107) mmol/L BUN (9-20) mg/dL Creatinine (0.66-1.25) mg/dL Glucose (74-99) mg/dL POC Glucose (mg/dL) 147 H 181 H 159 H (70-110) mg/dL Calcium (8.4-10.2) mg/dL 08/29/22 08/29/22 08/29/22 Range/Units 04:15 04:15 05:41 RBC 3.46 L (4.30-5.90) m/uL Hgb 9.1 L (13.0-17.5) gm/dL Hct 29.8 L (39.0-53.0) % MCHC 30.5 L (31.0-37.0) g/dL Plt Count 68 L (150-450) k/uL Lymphocytes # 0.6 L (1.0-4.8) k/uL ABG HCO3 26 H (21-25) mmol/L ABG Total CO2 28 H (19-24) mmol/L ABG O2 Saturation 98.7 H (94-97) % Chloride 109 H (98-107) mmol/L BUN 46 H (9-20) mg/dL Creatinine 1.42 H (0.66-1.25) mg/dL Glucose 130 H (74-99) mg/dL POC Glucose (mg/dL) (70-110) mg/dL Calcium 7.9 L (8.4-10.2) mg/dL 08/29/22 08/29/22 Range/Units 06:03 12:02 RBC (4.30-5.90) m/uL Hgb (13.0-17.5) gm/dL Hct (39.0-53.0) % MCHC (31.0-37.0) g/dL Plt Count (150-450) k/uL Lymphocytes # (1.0-4.8) k/uL ABG HCO3 (21-25) mmol/L ABG Total CO2 (19-24) mmol/L ABG O2 Saturation (94-97) % Chloride (98-107) mmol/L BUN (9-20) mg/dL Creatinine (0.66-1.25) mg/dL Glucose (74-99) mg/dL POC Glucose (mg/dL) 134 H 178 H (70-110) mg/dL Calcium (8.4-10.2) mg/dL Microbiology - Last 24 Hours (Table) 08/25/22 10:25 Blood Culture - Preliminary Blood No Growth after 96 hours 08/26/22 04:11 Blood Culture - Preliminary Blood No Growth after 72 hours 08/25/22 12:27 Stool Culture - Final Stool 08/25/22 13:30 Gram Stain - Final Sputum Sputum Culture - Final Methicillin resist S. aureus Assessment and Plan (1) Bacteremia Current Visit: Yes Status: Acute Code(s): R78.81 - BACTEREMIA SNOMED Code(s): 0877560 (2) UTI (urinary tract infection) Current Visit: No Status: Acute Code(s): N39.0 - URINARY TRACT INFECTION, SITE NOT SPECIFIED SNOMED Code(s): 01301351 Plan: 1patient presented to hospital with abdominal pain and nausea and vomiting in this patient did have a positive UA CT abdominal pelvis did not show any acute abnormality abdominal soft medical examination patient did have a positive UA concerning for symptomatic urinary tract infection likely from enteric gram-nega tive pathogen, patient subsequently did have slight worsening of his respiratory status and concern for possible aspiration pneumonitis. 2 Patient urine was Proteus which was a sensitive pathogen however blood culture showing ESBL proteus patient to continue with Invanz. 3sputum culture positive for MRSA patient with a borderline kidney function high risk of nephrotoxicity from vancomycin patient to continue with Zyvox. Time with Patient: Less than 30
--- NOTE | 2022-09-01 08:44 | P.PN ---
Subjective Progress Note Date: 08/30/22 Principal diagnosis: Bacteremia Patient is a 76-year-old -[place] male past medical history significant for liver failure status post liver transplant or redness of his medication presented to hospital generalized weakness did have a positive UA concerning for UTI patient subsequently did have a positive blood culture. Patient has been extubated 08/29/2022 On today's evaluation that is 08/30/2022 the patient remains to be afebrile, the patient is hemodynamically stable not requiring any pressor support , patient is breathing comfortably on 2 L nasal cannula oxygen patient is slightly lethargic and did not answer any question, no vomiting or diarrhea reported by the nursing staff Objective - Vital Signs Vital signs: Vital Signs Temp 98.1 F 08/30/22 12:00 Pulse 89 08/30/22 13:00 Resp 15 08/30/22 13:00 BP 108/51 08/30/22 13:00 Pulse Ox 96 08/30/22 13:00 FiO2 30 08/29/22 12:49 Intake & Output 08/29/22 08/30/22 08/30/22 18:59 06:59 18:59 Intake Total 648.030 789 583 Output Total 1140 1820 640 Balance -491.970 -1031 -57 Weight 102.4 kg 109 kg 109 kg Intake: IV 251 299 38 .9 KVO 215 260 20 Pressure bag 36 39 18 Intake, IV Titration 339.030 250 Amount Dextrose 5% in Water 1, 75 000 ml @ 75 mls/hr IV . [id number] [facility] Rx#:[id number] Ertapenem 0.5 gm In 50 Sodium Chloride 0.9% 50 ml @ 100 mls/hr IVPB Q24H [facility] Rx#:[id number] Linezolid 600 mg In 150 Dextrose/Water 1 300ml. bag @ 150 mls/hr IVPB Q12HR@0000,1200 [facility] Rx#: [id number] Sodium Chloride 0.9% 1, 250 000 ml @ 50 mls/hr IV . Q20H [facility] Rx#:[id number] propofoL 1,000 mg In 64.030 Empty Bag 1 bag @ 15 MCG/ KG/MIN 8.55 mls/hr IV . [id number] [facility] Rx#:[id number] Tube Feeding 58 290 235 Other 200 60 Output: Urine 1140 1545 640 Stool 275 Other: Voiding Method Indwelling Catheter Indwelling Catheter Indwelling Catheter # Bowel Movements 1 ABP, PAP, CO, CI - Last Documented Arterial Blood Pressure 143/46 - Exam GENERAL DESCRIPTION: An elderly male lying in bed in no distress RESPIRATORY SYSTEM: Unlabored breathing , decreased breath sounds at bases HEART: S1 S2 regular rate and rhythm , ABDOMEN: Soft , no tenderness EXTREMITIES: No edema feet - Labs CBC & Chem 7: 08/31/22 05:12 08/31/22 05:12 Labs: Abnormal Lab Results - Last 24 Hours (Table) 08/29/22 08/30/22 08/30/22 Range/Units 18:44 05:20 05:20 RBC 3.44 L (4.30-5.90) m/uL Hgb 9.5 L (13.0-17.5) gm/dL Hct 29.7 L (39.0-53.0) % Plt Count 144 L D (150-450) k/uL Lymphocytes # 0.9 L (1.0-4.8) k/uL BUN 43 H (9-20) mg/dL POC Glucose (mg/dL) 117 H (70-110) mg/dL Calcium 8.3 L (8.4-10.2) mg/dL Total Protein 4.5 L (6.3-8.2) g/dL Albumin 2.4 L (3.5-5.0) g/dL 08/30/22 Range/Units 12:12 RBC (4.30-5.90) m/uL Hgb (13.0-17.5) gm/dL Hct (39.0-53.0) % Plt Count (150-450) k/uL Lymphocytes # (1.0-4.8) k/uL BUN (9-20) mg/dL POC Glucose (mg/dL) 114 H (70-110) mg/dL Calcium (8.4-10.2) mg/dL Total Protein (6.3-8.2) g/dL Albumin (3.5-5.0) g/dL Microbiology - Last 24 Hours (Table) 08/25/22 10:25 Blood Culture - Preliminary Blood No Growth after 120 hours 08/25/22 12:27 Stool Culture - Final Stool 08/26/22 04:11 Blood Culture - Preliminary Blood No Growth after 96 hours Assessment and Plan (1) Bacteremia Current Visit: Yes Status: Acute Code(s): R78.81 - BACTEREMIA SNOMED Code(s): 5265508 (2) UTI (urinary tract infection) Current Visit: No Status: Acute Code(s): N39.0 - URINARY TRACT INFECTION, SITE NOT SPECIFIED SNOMED Code(s): 98888624 Plan: 1patient presented to hospital with abdominal pain and nausea and vomiting in this patient did have a positive UA CT abdominal pelvis did not show any acute abnormality abdominal soft medical examination patient did have a positive UA concerning for symptomatic urinary tract infection likely from enteric gram- negative pathogen, patient subsequently did have slight worsening of his respiratory status and concern for possible aspiration pneumonitis. 2 Patient urine was Proteus which was a sensitive pathogen however blood culture showing ESBL proteus patient to continue with Invanz dose has been adjusted to the kidney function. 3sputum culture positive for MRSA patient with a borderline kidney function high risk of nephrotoxicity from vancomycin patient to continue with Zyvox and monitor clinical course closely. Time with Patient: Less than 30
--- NOTE | 2022-09-01 08:46 | P.PN ---
Subjective Progress Note Date: 08/31/22 Principal diagnosis: Bacteremia Patient is a 76-year-old -[place] male past medical history significant for liver failure status post liver transplant or redness of his medication presented to hospital generalized weakness did have a positive UA concerning for UTI patient subsequently did have a positive blood culture. Patient has been extubated 08/29/2022 On today's evaluation that is 08/31/2022 the patient continues to be afebrile, the patient is hemodynamically stable not requiring any pressor support , patient is breathing comfortably on 2 L nasal cannula oxygen, patient remains to be slightly lethargic and did not answer any question, patient has developed d iarrhea for which a fecal management system has been placed Objective - Vital Signs Vital signs: Vital Signs Temp 99.0 F 08/31/22 09:00 Pulse 80 08/31/22 10:57 Resp 12 08/31/22 10:00 BP 123/49 08/31/22 10:00 Pulse Ox 99 08/31/22 10:00 FiO2 30 08/29/22 12:49 Intake & Output 08/30/22 08/31/22 08/31/22 18:59 06:59 18:59 Intake Total 1425 1279 339 Output Total 1515 1665 325 Balance -90 -386 14 Weight 109 kg 107.9 kg Intake: IV 50 639 159 .9 KVO 20 Pressure bag 30 39 9 Sodium Chloride 0.9% 1, 600 150 000 ml @ 50 mls/hr IV . Q20H [facility] Rx#:[id number] Intake, IV Titration 850 50 Amount Ertapenem 0.5 gm In 50 Sodium Chloride 0.9% 50 ml @ 100 mls/hr IVPB Q24H [facility] Rx#:[id number] Linezolid 600 mg In 300 Dextrose/Water 1 300ml. bag @ 150 mls/hr IVPB Q12HR@0000,1200 [facility] Rx#: [id number] Sodium Chloride 0.9% 1, 500 50 000 ml @ 50 mls/hr IV . Q20H [facility] Rx#:[id number] Tube Feeding 435 500 150 Other 90 90 30 Output: Urine 1515 1615 325 Stool 50 Other: Voiding Method Indwelling Catheter Indwelling Catheter Indwelling Catheter ABP, PAP, CO, CI - Last Documented Arterial Blood Pressure 154/47 - Exam GENERAL DESCRIPTION: An elderly male lying in bed in no distress RESPIRATORY SYSTEM: Unlabored breathing , decreased breath sounds at bases HEART: S1 S2 regular rate and rhythm , ABDOMEN: Soft , no tenderness EXTREMITIES: No edema feet - Labs CBC & Chem 7: 08/31/22 05:12 08/31/22 05:12 Labs: Abnormal Lab Results - Last 24 Hours (Table) 08/30/22 08/31/22 08/31/22 Range/Units 17:28 05:12 05:12 RBC 3.47 L (4.30-5.90) m/uL Hgb 9.4 L (13.0-17.5) gm/dL Hct 30.3 L (39.0-53.0) % Lymphocytes # 0.8 L (1.0-4.8) k/uL BUN 38 H (9-20) mg/dL POC Glucose (mg/dL) 127 H (70-110) mg/dL Calcium 7.9 L (8.4-10.2) mg/dL 08/31/22 Range/Units 11:46 RBC (4.30-5.90) m/uL Hgb (13.0-17.5) gm/dL Hct (39.0-53.0) % Lymphocytes # (1.0-4.8) k/uL BUN (9-20) mg/dL POC Glucose (mg/dL) 159 H (70-110) mg/dL Calcium (8.4-10.2) mg/dL Microbiology - Last 24 Hours (Table) 08/25/22 10:25 Blood Culture - Final Blood No Growth after 144 hours 08/26/22 04:11 Blood Culture - Preliminary Blood No Growth after 120 hours 08/25/22 12:27 Stool Culture - Final Stool Assessment and Plan (1) Bacteremia Current Visit: Yes Status: Acute Code(s): R78.81 - BACTEREMIA SNOMED Code(s): 2616211 (2) UTI (urinary tract infection) Current Visit: No Status: Acute Code(s): N39.0 - URINARY TRACT INFECTION, SITE NOT SPECIFIED SNOMED Code(s): 69326378 Plan: 1patient presented to hospital with abdominal pain and nausea and vomiting in this patient did have a positive UA CT abdominal pelvis did not show any acute abnormality abdominal soft medical examination patient did have a positive UA concerning for symptomatic urinary tract infection likely from enteric gram- negative pathogen, patient subsequently did have slight worsening of his respiratory status and concern for possible aspiration pneumonitis. 2 Patient urine was Proteus which was a sensitive pathogen however blood culture showing ESBL proteus patient to continue with Invanz dose has been adjusted to the kidney function. 3sputum culture positive for MRSA patient with a borderline kidney function high risk of nephrotoxicity from vancomycin 4patient seemed to have show some clinical improvement continue with the Zyvox, has developed significant diarrhea, stool for C. diff has been negative continue with symptomatic treatment Time with Patient: Less than 30
[2022-09-01] MEDS: methylPREDNISolone SOD SUCCI 40 MG/ML 1 ML VIAL IV SCH (09:09)
[2022-09-01] MEDS: HEPARIN SODIUM,PORCINE/PF 5,000 UNIT/0.5 ML SYRINGE SQ SCH ×2 (09:09→21:11)
[2022-09-01] MEDS: ASPIRIN 81 MG PO SCH (09:09)
--- NOTE | 2022-09-01 10:23 | P.PN ---
Subjective Progress Note Date: 09/01/22 Principal diagnosis: Secondary, impending respiratory failure. Sepsis. Pulmonary consult dated 08/24/2022. 76-year-old black male, with a previous history of liver transplant, at [facility], and CVA, with right-sided weakness, who apparently presented to the emergency department on August 22, complaining of profound weakness, nausea, and vomiting. The patient was admitted to the floor, and I was asked to transfer the patient to the intensive care unit, as the patient was thought to have sepsis, with hypotension. 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 He apparently was at [employer], shopping, and developed sudden onset of abdominal pain nausea and vomiting. He also complaining of weakness in his lower extremities. Seen in the emergency room, and admitted to the hospital. Currently, the patient's getting saline at 130 mL an hour, and norepinephrine at 0.04 mcg/kg/m. A blood gas done on 6 L shows a pO2 of 86, pCO2 27, and a pH is 7.36. This blood gases consistent with mild metabolic acidosis. His initial blood gas was consistent with non-anion gap metabolic acidosis. His lactate initially was 4.8. He's currently on Zosyn. A computed tomography scan of the brain showed an acute infarct of the left parietal lobe. He is being seen by neurology. White count 4.1, hemoglobin 14, hematocrit 46.5, and platelet count 95,000. Sodium 138, potassium 4.3, chlorides 113, CO2 15, anion gap 10, BUN 26, creatinine 2.53. Lactic acid is 2.2. AST is 267 and ALT is 68. Troponin was 0.491. Pro-calcitonin level is 30.4. UA is consistent with a possible urinary tract infection. Testing for coronavirus was negative. Chest x-ray, after central line placement, by me, showed no complication. Progress note dated 08/25/2022. 76-year-old black female seen yesterday in consultation. When I saw him today, his mental status had declined. He was on 4 L of oxygen. He was also receiving norepinephrine at 0.06 mcg/kg/m, and was on a sodium bicarbonate drip, with 3 ampules of sodium bicarbonate and D5W at 100 mL an hour. The patient's urine showed gram-negative bacilli in the blood was positive for Proteus mirabilis. He was on Zosyn. He was to go for a CAT scan of the brain. Unfortunately, I felt that his situation was too unstable to send him down for a CAT scan, so he was electively intubated with a #8 endotracheal tube, using a standard laryngoscope, and #3 Alpesh blade. In addition, a right radial art line was placed. I did speak to the neurologist. The patient's post intubation chest x- ray showed diffuse bilateral infiltrates. White count was 5, hemoglobin 12.6, hematocrit 41.1, and platelet count was 95,000. Sodium 140, potassium 3.9, chlorides 109, CO2 21, anion gap 10, BUN 27, and creatinine 2.78. The patient's AST was 284 in the ALT was 81. The rest of the labs were reviewed. Progress note dated 08/26/2022. 76-year-old black male seen in consultation 2 days ago. The patient was admitted with a diagnosis of mental status changes, and probable sepsis. Unfortunately, the patient was electively intubated, yesterday, August 25, and at the same time, had a right radial arterial line placed. Currently, he remains on the mechanical ventilator. He is on volume assist control, rate 20, tidal volume 450, FiO2 55%, apply. Blood gases show a PaO2 of 137, pCO2 43, and a pH of 7.29. The FiO2 can be reduced. The patient's getting norepinephrine at 16 mcg/m, propofol at 30 mcg/kg/m, and dextrose and saline, at 75 mL an hour. The patient is getting Zosyn, for Proteus mirabilis UTI and bacteremia. The chest x-ray shows an endotracheal tube which is a bit high in the trachea, and can be pushed down 1-1/2 cm. The repeat brain CT shows an evolving left frontal parietal ischemic stroke. No hemorrhagic conversion. White count 12.6, hemoglobin 13.1, hematocrit 41.9, platelet count 93,000. Sodium 142, potassium 4.4, chlorides 110, CO2 19, anion gap 13, BUN 31, creatinine 2.68. AST is 147 with an ALT of 69. Chest x-ray in addition shows some bilateral mostly basilar scattered opacities. Progress note dated 08/27/2022. 76-year-old black male, seen again in the intensive care unit, room 250. He remains on the mechanical ventilator. His mental status is poor, and is being followed by neurology. He is currently on volume assist control, rate 20, tidal volume 450, FiO2 40%, to be dropped to 30%, and PEEP of 5. Blood gases on 40% show pO2 144, pCO2 44, and a pH of 7.33. This gases consistent with a very mild metabolic acidosis. The patient is currently on dextrose and saline at 75 mL an hour, vital high protein at 40 mL now with a goal of 58, and Zosyn, IV, for Proteus bacteremia and urinary tract sections. The patient's propofol is currently on hold because he is being evaluated neurologically by her n eurologist. The saline IV will be switched to D5 W at 75 mL an hour. White count is 4.6, hemoglobin 10.5, hematocrit 34, and platelet count is 49,000. Sodium 145, potassium 3.9, chlorides 1:15, CO2 23, BUN 42, creatinine 2.56. Albumin is 2.3. Chest x-ray shows left lower lobe infiltrate. Progress note dated 08/28/2022. 76-year-old white male seen again in the intensive care unit, room 250. He remains on the mechanical ventilator. His ventilator settings include the volume assist control, rate 20, tidal volume 450, FiO2 30%, and PEEP of 5. Arterial blood gases show pO2 of 91, pCO2 39, pH is 7.44. The patient's getting vital high protein at goal, which is 58 mL an hour, saline at 20 mL an hour, norepinephrine at 0.04 mcg/kg/m, D5W at 75 mL, and propofol at 35 mcg/kg/m. The patient continues on vancomycin and Zosyn. He's being followed by neurology. He did have a daily interruption of sedation yesterday. Laboratory data includes a white count 3.9, hemoglobin 9.5, hematocrit 30.3, and a platelet count 53,000. Sodium 143, potassium 3.3, chlorides 112, CO2 24, BUN 49, creat inine 2.29. Albumin is 2.2. Sputum is showing presumptive staph. The patient is given a dose of vancomycin pending the final identification. The blood cultures were positive for Proteus mirabilis, as well as the urine sampling. The patient's chest x-ray shows an infiltrate primarily in the left lower lobe. Progress note dated 09/01/2022. The patient was intubated on August 25, and extubated on August 29 I saw him last on August 28. Please see the note above. He's on 2 L of oxygen. An NG tube is in place. He is getting saline at 50 mL an hour. A PEG tube was to be placed today by one of the surgeons. He had Proteus in his blood and urine, and methicillin-resistant staph aureus in his sputum. The central line needs to be removed, in the midline place. The tip should be cultured. He is currently on Zosyn and ertapenem. Other than a glucose of 104, no blood testing today. The patient's chest x-ray is stable. Objective - Vital Signs Vital signs: Vital Signs Temp 99.6 F 09/01/22 09:00 Pulse 84 09/01/22 09:00 Resp 19 09/01/22 09:00 BP 146/51 09/01/22 09:00 Pulse Ox 98 09/01/22 09:00 FiO2 2 09/01/22 07:14 Intake & Output 08/31/22 09/01/22 09/01/22 18:59 06:59 18:59 Intake Total 1473 939 200 Output Total 1725 1825 475 Balance -252 -886 -275 Weight 104.1 kg Intake: IV 783 609 200 Ertapenem 0.5 gm In 50 Sodium Chloride 0.9% 50 ml @ 100 mls/hr IVPB Q24H [facility] Rx#:[id number] Linezolid 600 mg In 300 Dextrose/Water 1 300ml. bag @ 150 mls/hr IVPB Q12HR@0000,1200 [facility] Rx#: [id number] Pressure bag 33 9 Sodium Chloride 0.9% 1, 400 600 200 000 ml @ 50 mls/hr IV . Q20H [facility] Rx#:[id number] Tube Feeding 630 300 Other 60 30 Output: Urine 1725 1525 475 Stool 300 Other: Voiding Method Indwelling Catheter Indwelling Catheter ABP, PAP, CO, CI - Last Documented Arterial Blood Pressure 151/46 - Exam Awake, lethargic, on nasal O2, at 2 L, with an NG tube in place. HEENT examination is grossly unremarkable. Neck supple. Full range of motion. No adenopathy thyromegaly or neck vein d istention. Cardiovascular examination reveals regular rhythm rate. S1-S2 normal. No S3 or S4. No discernible murmur noted. Heart rate is 84 bpm. Lungs reveal coarse bilateral breath sounds. No wheezes. No crackles. Saturation is 98 %. Abdomen soft, without sounds. No masses or tenderness. Well-healed liver transplant scar. Extremities are intact. No cyanosis or clubbing. Trace edema. Chronic venous stasis changes noted. Skin is without rash or lesion. Neurologic examination is improved. - Labs CBC & Chem 7: 08/31/22 05:12 08/31/22 05:12 Labs: Abnormal Lab Results - Last 24 Hours (Table) 08/31/22 08/31/22 Range/Units 11:46 18:09 POC Glucose (mg/dL) 159 H 128 H (70-110) mg/dL Microbiology - Last 24 Hours (Table) 08/26/22 04:11 Blood Culture - Final Blood No Growth after 144 hours 08/25/22 10:25 Blood Culture - Final Blood No Growth after 144 hours Assessment and Plan Assessment: Hypotension, secondary to gram-negative sepsis, with Proteus mirabilis bacteremia and probable Proteus mirabilis urinary tract infection. Status post intubation and mechanical ventilation, 08/25/2022, as patient was unable to protect his airway, with successful extubation on August 29. Left lower lobe pneumonia, sputum is showing MRSA. 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 History of liver transplantation, at the [facility]. Acute kidney injury. Lactic acidosis. History of hypertension. History of gastroesophageal reflux disease. History of BPH. History of hyperlipidemia. Plan: Plan dated 08/24/2022. The patient is currently being evaluated by neurology. Computed tomography scan of the brain suggests an acute infarct, involving the left parietal lobe. Apparently the patient and/or the patient's family would like the patient transferred to the [facility]. I'm not sure that we will be able to accomplish that. He is currently on 6 L of oxygen. He is on norepinephrine at 0.04 mcg/kg/m. Blood gases show a mild metabolic acidosis. He is currently on Zosyn. Cultures have been done. Labs, x-rays, and medications are reviewed. I placed a left subclavian triple-lumen catheter in the patient as he had limited IV access. Plan dated 08/25/2022. The patient was electively intubated and mechanically ventilated, so he could safely go down for another CAT scan. Because of the acute change of this mental status, we were concerned that the ischemic stroke worsened. The patient had a right radial art line in place. Yesterday, I placed a left subclavian triple- lumen catheter. The patient remains on a sodium bicarbonate drip, and norepinephrine, for supportive blood pressure. Oral medications were discontinued. The patient could be started on tube feeds. We will check a blood gas. Additional recommendations and suggestions are forthcoming. Plan dated 08/26/2022. The patient was intubated, for airway protection, yesterday, August 25. In addition, a right radial arterial line was placed. The patient went down for a computed tomography scan, and it showed that the left parietal frontal infarct, has extended. Currently, the patient's on Zosyn for Proteus mirabilis UTI and Proteus mirabilis bacteremia. The patient's on 16 mcg/m norepinephrine. He is not receiving tube feeds, but they will be started today. The patient is currently sedated with propofol. FiO2 can be reduced. Prognosis is very poor. We will continue to follow make recommendations where appropriate. I asked the nurse to find out from the family, whether or not they want him transferred. Initially, they wanted him transferred to the [facility]. Plan dated 08/27/2022. The patient remains intubated, with poor neurologic status. He is being currently evaluated by neurology. Propofol is on hold. His IV switched him dextrose and saline at 75 mL an hour, complaining dextrose, because of hypernatremia and hyperchloremia. Labs, x-rays, and medications are all reviewed. The patient's overall prognosis is poor. He remains on Zosyn for Proteus bacteremia and Proteus urinary tract infection. We will continue to follow and make recommendations where appropriate. Plan dated 08/28/2022. The patient remains intubated. He did have a daily interruption of sedation yesterday. He was evaluated further by neurology. Currently, the patient's on propofol, and norepinephrine as mentioned above. He is getting tube feedings, at goal. The patient has evidence of both Proteus mirabilis bacteremia and Proteus mirabilis urinary tract infection. For that, the patient is on Zosyn. Sputum was positive for presumptive staph, and the patient was given a dose of vancomycin. Labs, x-rays, and medications are reviewed. We will continue to follow. The patient's most recent computed tomography scan showed evolution of his left frontal parietal ischemic CVA. Prognosis is guarded. Plan dated 09/01/2022. The patient is doing much better than when I saw him last, on August 28. At that time he was still intubated. He was extubated the following day in August 29. He is on 2 L. He got an NG tube in place. He is getting saline at 50 mL an hour. The patient is currently on ertapenem and Zosyn. The patient will have a PEG tube placed today. In addition, he needs a midline place, and the central line needs be discontinued with the tip cultured. Labs, x-rays, medications are all reviewed. Prognosis is certainly guarded. Time with Patient: Less than 30
--- NOTE | 2022-09-01 10:58 | P.PN ---
Subjective Patient is seen for follow-up for acute kidney injury. Patient has been extubated. He is maintained on nasal cannula. Maintained on normal saline 50 mL an hour Maintained on tube feeding currently at 50 ML per minute at. Goal is at 75 mL Good urine output Serum creatinine down to 0.97 mg/dL. Objective - Vital Signs Vital signs: Vital Signs Temp 99.6 F 09/01/22 09:00 Pulse 84 09/01/22 09:00 Resp 19 09/01/22 09:00 BP 146/51 09/01/22 09:00 Pulse Ox 98 09/01/22 09:00 FiO2 2 09/01/22 07:14 Intake & Output 08/31/22 09/01/22 09/01/22 18:59 06:59 18:59 Intake Total 1473 939 200 Output Total 1725 1825 475 Balance -252 -886 -275 Weight 104.1 kg Intake: IV 783 609 200 Ertapenem 0.5 gm In 50 Sodium Chloride 0.9% 50 ml @ 100 mls/hr IVPB Q24H [facility] Rx#:[id number] Linezolid 600 mg In 300 Dextrose/Water 1 300ml. bag @ 150 mls/hr IVPB Q12HR@0000,1200 [facility] Rx#: [id number] Pressure bag 33 9 Sodium Chloride 0.9% 1, 400 600 200 000 ml @ 50 mls/hr IV . Q20H [facility] Rx#:[id number] Tube Feeding 630 300 Other 60 30 Output: Urine 1725 1525 475 Stool 300 Other: Voiding Method Indwelling Catheter Indwelling Catheter ABP, PAP, CO, CI - Last Documented Arterial Blood Pressure 151/46 - Exam Awake, comfortable Extubated Following commands Examination of the heart S1 and S2 Bilateral breath sounds are heard, decreased breath sounds at the bases Abdomen is soft Examination lower extremities shows edema 1+ bilaterally and edema in the upper extremities as well - Labs CBC & Chem 7: 08/31/22 05:12 08/31/22 05:12 Labs: Abnormal Lab Results - Last 24 Hours (Table) 08/31/22 08/31/22 Range/Units 11:46 18:09 POC Glucose (mg/dL) 159 H 128 H (70-110) mg/dL Microbiology - Last 24 Hours (Table) 08/26/22 04:11 Blood Culture - Final Blood No Growth after 144 hours 08/25/22 10:25 Blood Culture - Final Blood No Growth after 144 hours Assessment and Plan Assessment: 1. Acute kidney injury secondary to ATN secondary to septic shock and contrast- induced acute kidney injury. Patient received IV contrast on 08/23/2022. Creatinine was 1.74 on admission and peaked at 2.78 - 0.9 today. Nonoliguric. No hydronephrosis noted on CAT scan. 2. Chronic kidney disease stage IIIa with baseline creatinine in the range of 1.2-1.5 secondary to nephrosclerosis and long-term calcineurin inhibitor use. 3. 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 4. Metabolic acidosis secondary to acute kidney injury, lactic acidosis and IV fluids. Status post bicarb drip. 5. 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 Neurology following. 6. Septic shock secondary to Proteus UTI and bacteremia on antibiotics. Status post pressors. Proteus mirabilis bacteremia and MRSA in the sputum 7. Hyernatremia currently maintained on D5W and improved. Patient is also receiving free water flushes down his feeding tube. Plan: DC IV fluids once tube feeding is at goal
[2022-09-01 11:58] LABS: Glucose,Whole Blood 133 mg/dL (70-110)
[2022-09-01] MEDS: ERTAPENEM 0.5 GM in SODIUM CHLORIDE 0.9% 50 ML IVPB SCH (12:17)
[2022-09-01] MEDS: TACROLIMUS 0.5 MG CAP PO SCH ×2 (14:01→21:10)
--- NOTE | 2022-09-01 16:44 | P.PN ---
Subjective Progress Note Date: 09/01/22 76-year-old the male came in with the comments of generalized weakness and a nonspecific abdominal pain diffuse. Patient the overall clinical condition gotten worse patient became more septic patient is on immunosuppressive therapy with tacrolimus, mycophenolate. Patient was subsequently admitted to ICU. Patient neurological status also has worsened because of which the it was believed the patient has stroke. Patient does have chronic right-sided weakness with strength of 3/5 which is his baseline. Patient underwent multiple imaging studies including her CT angios the head and neck as well as a CT of the head which showed acute ischemic stroke over the left parietal lobe with worsening weakness on the right side. Patient continued to be on antiplatelet therapy. Patient urine cultures came back positive for Proteus mirabilis and patient blood cultures are now positive for Proteus species possible source of infection being urinary tract infection this Proteus species is pansensitive to multiple antibiotics patient is presently on Zosyn. Patient liver enzymes on admission were within normal limits patient is a liver transplant patient patient liver enzymes went up minimally to 284 and ALP of 81 this is probably secondary to sepsis and patient has acute tumor necrosis secondary to sepsis with worsening creatinine of around 2.8 baseline creatinine of around 1. Patient was encephal opathic EEG was ordered.. Today morning patient is found to be hypoxic any arterial blood gases after which patient was intubated patient is presently on 100% FiO2 assist control ventilation with PEEP of 5. Patient with the has troponin of 0.49 secondary to sepsis. 08/26/2022 Patient continues to be monitored closely in the intensive care unit. Continues to be intubated and on mechanical ventilator with FiO2 of 40% with oxygen saturation of 100%, fever is improving currently 97.6. Blood pressure 106/60 which he has been continued on vasopressor support. Continues on propofol for sedation. Current antibiotic coverage of IV zosyn for proteus miribilis UTI and bacteremia. Infectious disease following. Cellcept remains on hold. Patient was able to receive prograf through NG tube today. Case was discussed with liver transplant team yesterday. Patient did have repeat brain CT completed yesterday showing evolving stroke left parietal/left front. No evidence for hemorrhagic conversion. Neurology following. Patient will be started on nutritional feeds today. As of yesterday family was undecided about pursuing transfer to another facility. They would still like to pursue transfer to [facility]. Did speak with Dr. Espinoza at [facility] yesterday and CT imaging was sent over at request of physician to review. Awaiting status update from [facility] transfer team regarding decision to accept. Family is aware of pending status as of yesterday with no new updates yet today. Labs today showing a white count of 12.6, platelet count of 93, sodium 142, potassium 4.4, BUN 31, creatinine 2.68, blood glucose 200s. AST 147, ALT 69, alk phos 124. 08/27/2022 Patient evaluated today in intensive care unit currently intubated on mechanical ventilator with FiO2 of 40%. He has remained afebrile. Currently maintaining blood pressures 130/60s off of pressor support. He continues to be sedated with propofol. Today he is responsive to painful stimulation of the right hand with minimal eye opening however continues to be drowsy, and from a neurological standpoint overall prognosis is poor. Plan today is to wean sedation and repeat brain CT if no neurological improvement. He is also continued on IV zosyn for proteus UTI and bacteremia. Repeat blood cultures are currently pending at this time, sputum culture is also pending. Continues on D5 normal saline at 75 mls per hour and urine output is about 675 mls in the last 24 hours. Labs today are showing sodium level of 145, potassium 3.9, BUN 42, creatinine 2.56, blood glucose in the 200s, calcium 6.7, magnesium 2.3, liver enzymes are continuing to improve AST 66, ALT 50, alk phos 82. Remains on tacrolimus and IV solumedrol. Platelet count has continued to drop currently now 49, hgb of 10.5, white count 4.6. Fibrinogen, PT/INR, pTT within normal limits. Hematology consultation requested for further investigation and will recommend to hold off on heparin subcutaneous for now. Noted that patient was on single antiplatelet therapy for acute evolving ischemic infarct and aspirin is currently being held as well now. Chest xray today showing Left lower lobe infiltrate. For now [facility] transfer pending this was done for family request. have not heard back if physician has accepted. 08/28/2022 Patient is evaluated in intensive care unit today. Pending return phone call from [facility] transfer regarding acceptance, the physician Dr. Rosas was going to speak with life skills specialist. Patient repeat chest x-ray today showing possible atypical pulmonary edema with left lower lobe pneumonia remains within the differential. Sputum cultures positive for MRSA, repeat blood cultures are pending so far. Patient continues on the Zosyn and received a dose of IV vancomycin. Infectious disease is following patient closely. Continues on IV Solu-Medrol, he is currently maintained on norepinephrine at 0.01 mcgs, he is receiving propofol for sedation. IV fluids are infusing D5 in water at 75 mls per hour. Patient remains afebrile, heart rate 73, blood pressure 121/56, 97% oxygen saturation on the mechanical ventilator of FiO2 30%. Labs today are halley wing a white count of 3.9, hemoglobin 9.5, platelet count of 53, potassium 3.3, BUN 49, creatinine 2.29, blood glucose in the 120s. He had ABGs completed today. He is receiving enteral nutrition. Plan is for repeat CT today and from there we'll discuss with family and also follow up with [facility]. Prognosis remains poor at this time. 08/29/2022 Patient continues to be monitored closely in intensive care unit. He had chest xray today showing possible congestive heart failure with pneumonia not e xcluded. Repeat brain CT showing stable infarct posterior left centrum semiovale infarct. Patient has been extubated today. Currently on sedation holiday. Currently afebrile, heart rate 72, blood pressure 128/48. Maintaining oxygen saturations on 2L nasal cannula at 98%. Antibiotics have been adjusted by infectious disease. On IV linezolid and IV ertapenem. He has been weaned off of levophed. Continues on IV steroids. Labs today showing white count 4.1, hgb 9.1, BUN 46, creatinine 1.42, glucose 130s. Chest xray will be repeated tomorrow. Plan to continue monitoring and evaluate defecits. Family updated that Dr. Rossa with [facility] has denied patient for transfer to [facility]. 08/30/2022 Patient is evaluated today in intensive care unit he has been extubated and is currently maintained on 2L of oxygen via nasal cannula. He is nonverbal however he does follow verbal commands. Patient had chest xray this morning showing bilateral lower lobe infiltrate and pleural effusion greater on the left, stable. CHF vs. Pneumonia. Patient is being treated currently with IV linezolid and also IV ertapenem for proteus bacteremia and also sputum culture showing MRSA. Today his platelet count is 144, hgb stable at 9.5. He has NG tube in place and has been started on plavix and also aspirin 81 mg daily and subcu heparin. Kidney function continues to improve BUN 43, creatinine 1.04. Blood glucose in the 110s. He is receiving enteral nutrition with vital AF goal 75 mls per hour. Speech therapy has evaluated the patient today and will continue to remain nothing by mouth secondary to suspected severe dysphagia. Global aphasia. Pending re-evalution and further recommendations by neurology today. Patient most likely will need PEG tube placement and this will be discussed with family. 08/31/2022 Patient continues to be monitored closely in intensive care unit. Remains on 2L nasal cannula, has been weaned off pressor support. Continues on IV ertapenem and IV linezolid secondary to MRSA in the sputum and proteus bacteremia and UTI. Chest xray continues to show pneumonia versus chf. He is receiving enteral nutrition via NG tube. He is receiving vital AF at 50 mls/hr goal is 75. He is also on IV fluids normal saline at 50mls/hr. Speech therapy assessment showing minimal oral motility and speech continuing to recommend NPO and unable to take oral medication. Discussed this with daughter and that patient will require significant rehabilitation. Patients daughter somewhat understanding. For now infectious disease management of antibiotics, he has triple lumen catheter in place and arterial line. Nephrology following. Pulmonary life skills specialist following. Would recommend PEG tube placement at this time secondary to dysphagia. Daughter agreeing to speak with surgery in consultation. Per daughter she works today she will be available tomorrow and she would like to speak with surgery prior to PEG tube placement. Labs today showing white count of 4.6, hgb of 9.4, sodium 138, potassium 4.1. BUN 38, creatinine 0.97. Blood pressure 124/57. Continues on aspirin/plavix dual antiplatelet combination. 09/01/2022 Patient to be closely monitored in intensive care unit. He is on 2 Liters of rehan al cannula at this time, 97% oxygen saturations. He remains afebrile, heart rate 80, blood pressure 134/61. Continues on IV antibiotics in the form of ertapenem, linezolid. He is maintained on tacrolimus, and IV solumedrol for the history of liver transplant. Additionally he continues on IV linezolid and IV ertapenem for the MRSA in the sputum and the proteus bacteremia and UTI. He has NG Tube in place receiving enteral nutrition. Discussed in detail for greater than 30 minutes with patients daughter over the phone the plan and updated on current labs and clinical conditions and current recommendations. Patients daughter would like to speak with the life skills specialist prior to make decision regarding PEG tube. All questions answered but she still has concern. Patient continues on aspirin 81 mg po and sub cu heparin, plavix has been placed on hold and pending PEG tube placement. He has been maintained off of pressor support at this time. Unable to complete full review of systems. PHYSICAL EXAMINATION: GENERAL: This is a 76 year old male who appears stated age. Patient is being monitored in intensive care unit, lethargic. Extubated. HEENT: Pupils are round and equally reacting to light. EOMI. No scleral icterus. No conjunctival pallor. Normocephalic, atraumatic. No pharyngeal erythema. No thyromegaly. CARDIOVASCULAR: S1 and S2 present. No murmurs, rubs, or gallops. Tachycardic. PULMONARY: Coarse ronchorous lungs sounds, no wheezing noted. ABDOMEN: Soft, nontender, nondistended, normoactive bowel sounds. No palpable organomegaly. Has liquid stool, fecal management system in place, indwelling catheter in place. MUSCULOSKELETAL: No joint swelling or deformity. EXTREMITIES: No cyanosis, clubbing, or pedal edema. NEUROLOGICAL: Diffuse global weakness, with right side hemiplegia. Garbled speech. Has breathlessness when attempting to speak. SKIN: No rashes. Assessment and Plan Assessment -Septic shock secondary to urinary tract infection patient has Proteus mirabilis UTI and bacteremia. MRSA positive sputum. Continues on IV linezolid, IV ertapenem. Infectious disease following. Acute ischemic infarct left parietal region in the left STEVE territory with severe right sided weakness/hemiplegia, continues on dual antiplatelet therapy with aspirin/plavix. Acute hypoxic respiratory failure secondary to sepsis/possible aspiration patient is currently extubated on 2L nasal cannula Acute kidney injury secondary to acute tubular necrosis secondary to septic shock. Creatinine today 0.97 nephrology is following. Elevated troponin secondary to septic shock Hypoglycemia resolved continues on enteral nutrition Metabolic acidosis secondary to acute kidney injury, lactic acidosis, resolved Elevated transaminases, initially negative, possibly from sepsis which they have now normalized. 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 [facility] has denied patient for transfer to [facility]. History of hypertension patient is currently normotensive weaned off of pressor support Stage 2 sacral decub History of gastroesophageal reflux disease BPH Hyperlipidemia History of old stroke residual weakness on the right side. GI Prophylaxis DVT Prophylaxis subcutaneous heparin Full Code Neurology recommending dual antiplatelet therapy for 21 days. Patient to be continued on plavix indefinitely. He currently remains on aspirin 81 mg po daily and plavix is on hold for PEG tube placement. He has NG tube in place. He is receiving enteral nutrition. Once patient reaches goal of 75 mls/hr, nephrology recommending to discontinue IV fluids. NPO status with severe dysphagia and also global aphasia. Patient is high risk for aspiration secondary to poor oral motility. Most likely will need PEG tube placement. Surgery has been consulted for PEG tube placement. Patients daughter is currently undecided about PEG tube. Infectious disease recommendations for antibiotic therapy. Physical therapy evaluation recommended for subacute rehab with 24/ care at this time. Continues to be monitored closely in intensive care unit. The impression and plan of care has been dictated by Aisha Taylor, Nurse Practitioner as directed. Dr. Harsha MD I have performed a history and physical examination and medical decision making of this patient, discussed the same with the dictator, and agree with the dictators assessment and plan as written, documented as a scribe. Based on total visit time, I have performed more than 50% of this visit. Objective - Vital Signs Vital signs: Vital Signs Temp 98.4 F 09/01/22 12:00 Pulse 80 09/01/22 15:32 Resp 21 09/01/22 15:00 BP 134/61 09/01/22 15:00 Pulse Ox 97 09/01/22 15:00 FiO2 2 09/01/22 07:14 Intake & Output 08/31/22 09/01/22 09/01/22 18:59 06:59 18:59 Intake Total 1473 939 450 Output Total 1725 9265 1100 Balance -865 -356 -744 Weight 104.1 kg Intake: IV 783 609 450 Ertapenem 0.5 gm In 50 Sodium Chloride 0.9% 50 ml @ 100 mls/hr IVPB Q24H [facility] Rx#:[id number] Linezolid 600 mg In 300 Dextrose/Water 1 300ml. bag @ 150 mls/hr IVPB Q12HR@0000,1200 [facility] Rx#: [id number] Pressure bag 33 9 Sodium Chloride 0.9% 1, 400 600 450 000 ml @ 50 mls/hr IV . Q20H [facility] Rx#:[id number] Tube Feeding 630 300 Other 60 30 Output: Urine 1725 1525 1100 Stool 300 Other: Voiding Method Indwelling Catheter Indwelling Catheter Indwelling Catheter ABP, PAP, CO, CI - Last Documented Arterial Blood Pressure 151/46 - Labs CBC & Chem 7: 08/31/22 05:12 08/31/22 05:12 Labs: Abnormal Lab Results - Last 24 Hours (Table) 08/31/22 08/31/22 09/01/22 Range/Units 05:12 18:09 11:55 POC Glucose (mg/dL) 128 H 133 H (70-110) mg/dL Tacrolimus <1.5 L (5.0-20.0) ng/mL Microbiology - Last 24 Hours (Table) 08/26/22 04:11 Blood Culture - Final Blood No Growth after 144 hours 08/25/22 10:25 Blood Culture - Final Blood No Growth after 144 hours Assessment and Plan Time with Patient: Greater than 30
--- NOTE | 2022-09-01 17:09 | P.PN ---
Subjective Progress Note Date: 09/01/22 Principal diagnosis: Dysphagia Patient remains in the ICU. Patient is able to answer questions yes or no at this time. Denies abdominal pain. Nasogastric tube remains in place. Objective - Vital Signs Vital signs: Vital Signs Temp 98.5 F 09/01/22 16:00 Pulse 81 09/01/22 16:00 Resp 23 09/01/22 16:00 BP 142/58 09/01/22 16:00 Pulse Ox 98 09/01/22 16:00 FiO2 2 09/01/22 07:14 Intake & Output 08/31/22 09/01/22 09/01/22 18:59 06:59 18:59 Intake Total 1473 939 450 Output Total 1725 1825 1100 Balance -252 -316 -650 Weight 104.1 kg Intake: IV 783 609 450 Ertapenem 0.5 gm In 50 Sodium Chloride 0.9% 50 ml @ 100 mls/hr IVPB Q24H [facility] Rx#:[id number] Linezolid 600 mg In 300 Dextrose/Water 1 300ml. bag @ 150 mls/hr IVPB Q12HR@0000,1200 [facility] Rx#: [id number] Pressure bag 33 9 Sodium Chloride 0.9% 1, 400 600 450 000 ml @ 50 mls/hr IV . Q20H [facility] Rx#:[id number] Tube Feeding 630 300 Other 60 30 Output: Urine 1725 1525 1100 Stool 300 Other: Voiding Method Indwelling Catheter Indwelling Catheter Indwelling Catheter ABP, PAP, CO, CI - Last Documented Arterial Blood Pressure 151/46 - Exam Abdomen: Soft, nondistended, bilateral subcostal scar from previous liver transplant noted - Labs CBC & Chem 7: 08/31/22 05:12 08/31/22 05:12 Labs: Abnormal Lab Results - Last 24 Hours (Table) 08/31/22 08/31/22 09/01/22 Range/Units 05:12 18:09 11:55 POC Glucose (mg/dL) 128 H 133 H (70-110) mg/dL Tacrolimus <1.5 L (5.0-20.0) ng/mL Microbiology - Last 24 Hours (Table) 08/26/22 04:11 Blood Culture - Final Blood No Growth after 144 hours Assessment and Plan (1) Dysphagia Narrative/Plan: 76-year-old male with dysphagia from recent CVA. Spoke with the patient's grandson at the bedside. Apparently the patient's daughter is on the way. He tried to call her while we were in the room and she did not answer. She was going to discuss the patient's condition with pulmonary critical care before giving consent for PEG tube placement. Await that discussion. Remain on standby. Current Visit: Yes Status: Acute Code(s): R13.10 - DYSPHAGIA, UNSPECIFIED SNOMED Code(s): 41648450
[2022-09-01 18:09] LABS: Glucose,Whole Blood 110 mg/dL (70-110)
[2022-09-01] MEDS: LATANOPROST 0.005% OPHTH DROPS 2.5 ML BTL BOTH EYES SCH (21:11)
[2022-09-01 23:29] LABS: Glucose,Whole Blood 93 mg/dL (70-110)
[2022-09-02] MEDS: INSULIN ASPART (NovoLOG) 100 UNIT/ML VIAL SQ SCH ×4 (00:19→19:10)
--- NOTE | 2022-09-02 00:20 | P.PN ---
Subjective Progress Note Date: 09/01/22 09/01/2022: Patient was seen for a follow-up. Patient's daughter was present today. Patient is showing clinical improvement, slow steady, as per examination below. Patient has failed swallow. Patient is undergoing PEG tube placement in the morning. His daughter has given the consent. 08/31/2022: Patient was seen for a follow-up. Patient clinically and changes compared to yesterday. Patient is laying in the bed. Has NG tube in place. 08/30/2022: Patient was seen for a follow-up. Patient is much more alert and awake. Still somewhat groggy, slightly encephalopathic. Patient denies headache. Patient is laying comfortably in the bed. No arrhythmia. 08/29/2022: Patient was seen for a follow-up. Patient initially seen by Dr. Poncho De Santiago. Please refer to his note for details. Patient is a 76-year-old right-handed male who has presented with acute left parietal stroke with right hemiplegia. Patient was initially intubated, placed on a ventilator because he was not able to protect his airway. EEG was negative for seizure. Patient has no significant carotid stenosis about 50%. CTA of the head and neck worse recommended once his kidney functions improved. Patient not on any antiplatelet medication because he was thrombocytopenic. Family requested patient to be transferred to [facility], but it has been declined. Repeat computed tomography scan was performed. Patient was seen for a follow-up. Patient's grandson was present. He called his aunt, who is a caregiver to the patient and she was present over the speaker phone. Patient has been extubated earlier today. Patient is on contact isolation for MRSA. Patient's right arm and right leg is flaccid. He has severely garbled speech. Patient has been on aspirin 81 mg daily prior to arrival to the hospital. Prior workup: Urine culture is positive for Proteus mirabilis. Blood culture is positive for Proteus mirabilis Lipid panel is triglyceride 112, cholesterol 111, LDL is 61, HDL is 27. Ammonia level is less than [address] of the head is reported as cerebral atrophy. Old small cortical infarct in the left internal capsule. No acute abnormality. CT angiography of the head and neck is reported as angiogram is nondiagnostic since there is no vascular contrast. There is cerebral or cortical atrophy. No acute intercranial abnormality. No significant abnormality of the neck. Mild spondylitic changes in the cervical spine. Repeat CT of the head as reported as there is a 4 cm poorly marginated area of hypodensity in the left parietal lobe consistent with acute infarct and isn't changed compared to recent exam. No hemorrhage seen. Cerebral atrophy. Then later, reading radiologist has addendum and reports it is that acute infarct is a change compared to recent exam. I personally reviewed the CT of the head on the most recent CT that was done last and I felt the left parietal seemed acute. There is no intraparenchymal hemorrhage. And then I was compared it to initial CT head on presentation, I felt different in which, I did not notice any remarkable acute ischemic in left parietal on initial CT. Carotid duplex was reported as there is bilateral plaque formation. There is bilateral mild elevation of internal carotid artery velocity. There is antegrade flow in the vertebral arteries. The images and measurements suggest 50-70% stenosis in both internal carotid arteries. Repeat CT head on 08/25/2022 is reported as increased size of low attenuation region in the medial left frontal/parietal lobe consistent with evolving acute/subacute infarct compared to the prior CT brain on 08/23/2022. No evidence for hemorrhagic conversion. I personally reviewed the image and I do agree there is evolution of the stroke but I feel mostly it's over the left parietal stroke than frontal. Routine EEG on 08/25/2022: Is abnormal. The background slowing suggestive of moderate encephalopathy. There is no focal slowing, epileptiform discharge or seizure on the EEG. Excessive beta activity and some diffuse suppression seen during the study is likely due to medication effect (Ativan). 2D echo is reported as likely normal left ventricle size and systolic function. Normal left atrial size. Objective - Vital Signs Vital signs: Vital Signs Temp 98.5 F 09/01/22 16:00 Pulse 81 09/01/22 16:00 Resp 23 09/01/22 16:00 BP 142/58 09/01/22 16:00 Pulse Ox 98 09/01/22 16:00 FiO2 2 09/01/22 07:14 Intake & Output 08/31/22 09/01/22 09/01/22 18:59 06:59 18:59 Intake Total 7187 629 335 Output Total 5587 4488 1100 Balance -700 -886 -650 Weight 104.1 kg Intake: IV 783 609 450 Ertapenem 0.5 gm In 50 Sodium Chloride 0.9% 50 ml @ 100 mls/hr IVPB Q24H [facility] Rx#:[id number] Linezolid 600 mg In 300 Dextrose/Water 1 300ml. bag @ 150 mls/hr IVPB Q12HR@0000,1200 [facility] Rx#: [id number] Pressure bag 33 9 Sodium Chloride 0.9% 1, 400 600 450 000 ml @ 50 mls/hr IV . Q20H [facility] Rx#:[id number] Tube Feeding 630 300 Other 60 30 Output: Urine 1725 1525 1100 Stool 300 Other: Voiding Method Indwelling Catheter Indwelling Catheter Indwelling Catheter ABP, PAP, CO, CI - Last Documented Arterial Blood Pressure 151/46 - Exam Patient is slightly groggy, but otherwise awake and becomes somewhat semi-alert. Patient has significant slurred speech,, but better than yesterday. Patient was clearly able to say eyeglasses and pencil. Patient appropriately answering yes and no questions. Patient has right facial weakness. Patient has about 4-groundwater monitoring technician on the right, 4+5- on the left. Proximally the strength appears much better on the left, whereas now movement in the right upper limb proximally. Patient's right leg is flaccid. Patient has good strength of the left ankle dorsiflexion. Patient has very significant peripheral edema. Hip flexion was about 2. - Labs CBC & Chem 7: 08/31/22 05:12 08/31/22 05:12 Labs: Abnormal Lab Results - Last 24 Hours (Table) 08/31/22 08/31/22 09/01/22 Range/Units 05:12 18:09 11:55 POC Glucose (mg/dL) 128 H 133 H (70-110) mg/dL Tacrolimus <1.5 L (5.0-20.0) ng/mL Microbiology - Last 24 Hours (Table) 08/26/22 04:11 Blood Culture - Final Blood No Growth after 144 hours Assessment and Plan Assessment: * Acute ischemic stroke over left parietal region in the left STEVE territory with right hemiparesis, leg much more involved as compared to the right arm. Me chanism of stroke likely from moderate bilateral ICA stenosis. * Altered mental status seems due to metabolic encephalopathy, improved. * Dysphagia, failed swallow, likely due to CVA. * Carotid stenosis 50-70% bilateral ICA on carotid duplex but was felt just at 50% by vascular surgery team. * Acute Thrombocytopenia, resolved. * Sepsis (likely due to UTI and blood is positive for proteus species) * Renal insufficiency, resolved * Elevated liver function, resolved. * History of old stroke with some weakness possible lower weakness but was able to ambulate * History of liver failure s/p transplant Plan: Patient is showing signs of clinical improvement. Mentation, speech and strength is slightly improved. Repeat CT head from 08/28/2022 revealed stable posterior left centrum semiovale infarct. I personally reviewed CT head, appears to involve the left STEVE territory involving the left parietal region. No hemorrhage. Patient has failed aspirin regimen. We will start patient on Plavix 75 mg daily. Recommend continuing dual antiplatelet medication for 21 days, thereafter stop aspirin and continue Plavix indefinitely. NG tube has been placed. Start Pepcid 20 mg twice a day for gastric ulcer prophylaxis. Hemoglobin A1c 5.7. Lipid panel with cholesterol 111, LDL 61, HDL 27 and triglycerides 112. Continue Lipitor 40 mg daily at bedtime for secondary stroke prophylaxis 2-D echo revealed normal left-ventricular size and systolic function. EF is 55- 60%. Small left ventricular cavity. Borderline LVH. Left atrial size is norm al. 2-D echo revealed no obvious embolic source. Patient CVA likely due to ICA stenosis. Antiplatelet regimen changed as above. No definitive indication for ABBY. Carotid Doppler revealed 50-70% stenosis bilateral ICA. Antegrade flow in both vertebral arteries. Vascular surgery team for the carotid stenosis and they felt carotid stenosis at 50%. They did not feel he was a surgical candidate at this time. PT, OT and COOPERATIVE EDUCATION COORDINATOR are consulted. Patient to undergo PEG placement in the morning. Patient on Invanz. We'll defer the rest of the medical management to the primary and ICU team For DVT prophylaxis use SCD's. Subq heparin if no medical contraindications. Discussed with patient's daughter in detail. Neurologically clear for transfer to rehab facility after PEG placement.
[2022-09-02] MEDS: FAMOTIDINE 20 MG TAB PO SCH ×4 (00:54→21:57)
[2022-09-02] MEDS: SODIUM CHLORIDE 0.9% 1,000 ML IV SCH (04:09)
[2022-09-02 06:00] LABS: Glucose,Whole Blood 88 mg/dL (70-110)
[2022-09-02] MEDS: NOREPINEPHRINE 32 MG in SODIUM CHLORIDE 0.9% 218 ML IV SCH ×2 (06:07→23:41)
[2022-09-02] MEDS: IPRATROPIUM-ALBUTEROL 3 ML NEB INHALATION SCH ×4 (07:23→20:10)
[2022-09-02 07:59] LABS: Calcium 7.8 mg/dL (8.4-10.2); Potassium 3.5 mmol/L (3.5-5.1)
[2022-09-02] MEDS ORDERED: LIDOCAINE 1% INJ 10MG/ML (30 ML VIAL-PF) SQ ONE (09:26)
[2022-09-02] MEDS: ASPIRIN 81 MG PO SCH (09:48)
[2022-09-02] MEDS: HEPARIN SODIUM,PORCINE/PF 5,000 UNIT/0.5 ML SYRINGE SQ SCH ×2 (09:49→21:58)
[2022-09-02] MEDS: methylPREDNISolone SOD SUCCI 40 MG/ML 1 ML VIAL IV SCH (09:50)
[2022-09-02] MEDS: TACROLIMUS 0.5 MG CAP PO SCH ×2 (09:50→21:57)
--- NOTE | 2022-09-02 09:54 | XR ---
EXAMINATION TYPE: XR chest 1V portable DATE OF EXAM: 09/02/2022 COMPARISON: 09/01/2022 HISTORY: PICC line placement TECHNIQUE: Single frontal view of the chest is obtained. FINDINGS: Right-sided PICC line appears in good position. Left-sided central line noted. NG tube see n. Bilateral infiltrate and pleural effusion. No pneumothorax. Arthropathy of the shoulders. Hypertro phic change of the spine. Chronic rib deformity suggested. IMPRESSION: 1. Bilateral infiltrate and pleural effusion stable. 2. PICC line appears in good position with the tip overlying the right atrium.
[2022-09-02 10:19] LABS: HCT 28.2 % (39.0-53.0); Hypochromasia Slight; MCH 26.9 pg (25.0-35.0); MCHC 31.9 g/dL (31.0-37.0); MCV 84.5 fL (80.0-100.0); Mean Platelet Volume 8.2; Platelet Count 235 k/uL (150-450); RBC 3.33 m/uL (4.30-5.90); RDW 14.7 % (11.5-15.5); WBC 4.4 k/uL (3.8-10.6)
--- NOTE | 2022-09-02 10:30 | P.PN ---
Subjective Progress Note Date: 09/02/22 Principal diagnosis: Secondary, impending respiratory failure. Sepsis. Pulmonary consult dated 08/24/2022. 76-year-old black male, with a previous history of liver transplant, at [facility], and CVA, with right-sided weakness, who apparently presented to the emergency department on August 22, complaining of profound weakness, nausea, and vomiting. The patient was admitted to the floor, and I was asked to transfer the patient to the intensive care unit, as the patient was thought to have sepsis, with hypotension. 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 He apparently was at [employer], shopping, and developed sudden onset of abdominal pain nausea and vomiting. He also complaining of weakness in his lower extremities. Seen in the emergency room, and admitted to the hospital. Currently, the patient's getting saline at 130 mL an hour, and norepinephrine at 0.04 mcg/kg/m. A blood gas done on 6 L shows a pO2 of 86, pCO2 27, and a pH is 7.36. This blood gases consistent with mild metabolic acidosis. His initial blood gas was consistent with non-anion gap metabolic acidosis. His lactate initially was 4.8. He's currently on Zosyn. A computed tomography scan of the brain showed an acute infarct of the left parietal lobe. He is being seen by neurology. White count 4.1, hemoglobin 14, hematocrit 46.5, and platelet count 95,000. Sodium 138, potassium 4.3, chlorides 113, CO2 15, anion gap 10, BUN 26, creatinine 2.53. Lactic acid is 2.2. AST is 267 and ALT is 68. Troponin was 0.491. Pro-calcitonin level is 30.4. UA is consistent with a possible urinary tract infection. Testing for coronavirus was negative. Chest x-ray, after central line placement, by me, showed no complication. Progress note dated 08/25/2022. 76-year-old black female seen yesterday in consultation. When I saw him today, his mental status had declined. He was on 4 L of oxygen. He was also receiving norepinephrine at 0.06 mcg/kg/m, and was on a sodium bicarbonate drip, with 3 ampules of sodium bicarbonate and D5W at 100 mL an hour. The patient's urine showed gram-negative bacilli in the blood was positive for Proteus mirabilis. He was on Zosyn. He was to go for a CAT scan of the brain. Unfortunately, I felt that his situation was too unstable to send him down for a CAT scan, so he was electively intubated with a #8 endotracheal tube, using a standard laryngoscope, and #3 Alpesh blade. In addition, a right radial art line was placed. I did speak to the neurologist. The patient's post intubation chest x- ray showed diffuse bilateral infiltrates. White count was 5, hemoglobin 12.6, hematocrit 41.1, and platelet count was 95,000. Sodium 140, potassium 3.9, chlorides 109, CO2 21, anion gap 10, BUN 27, and creatinine 2.78. The patient's AST was 284 in the ALT was 81. The rest of the labs were reviewed. Progress note dated 08/26/2022. 76-year-old black male seen in consultation 2 days ago. The patient was admitted with a diagnosis of mental status changes, and probable sepsis. Unfortunately, the patient was electively intubated, yesterday, August 25, and at the same time, had a right radial arterial line placed. Currently, he remains on the mechanical ventilator. He is on volume assist control, rate 20, tidal volume 450, FiO2 55%, apply. Blood gases show a PaO2 of 137, pCO2 43, and a pH of 7.29. The FiO2 can be reduced. The patient's getting norepinephrine at 16 mcg/m, propofol at 30 mcg/kg/m, and dextrose and saline, at 75 mL an hour. The patient is getting Zosyn, for Proteus mirabilis UTI and bacteremia. The chest x-ray shows an endotracheal tube which is a bit high in the trachea, and can be pushed down 1-1/2 cm. The repeat brain CT shows an evolving left frontal parietal ischemic stroke. No hemorrhagic conversion. White count 12.6, hemoglobin 13.1, hematocrit 41.9, platelet count 93,000. Sodium 142, potassium 4.4, chlorides 110, CO2 19, anion gap 13, BUN 31, creatinine 2.68. AST is 147 with an ALT of 69. Chest x-ray in addition shows some bilateral mostly basilar scattered opacities. Progress note dated 08/27/2022. 76-year-old black male, seen again in the intensive care unit, room 250. He remains on the mechanical ventilator. His mental status is poor, and is being followed by neurology. He is currently on volume assist control, rate 20, tidal volume 450, FiO2 40%, to be dropped to 30%, and PEEP of 5. Blood gases on 40% show pO2 144, pCO2 44, and a pH of 7.33. This gases consistent with a very mild metabolic acidosis. The patient is currently on dextrose and saline at 75 mL an hour, vital high protein at 40 mL now with a goal of 58, and Zosyn, IV, for Proteus bacteremia and urinary tract sections. The patient's propofol is currently on hold because he is being evaluated neurologically by her n eurologist. The saline IV will be switched to D5 W at 75 mL an hour. White count is 4.6, hemoglobin 10.5, hematocrit 34, and platelet count is 49,000. Sodium 145, potassium 3.9, chlorides 1:15, CO2 23, BUN 42, creatinine 2.56. Albumin is 2.3. Chest x-ray shows left lower lobe infiltrate. Progress note dated 08/28/2022. 76-year-old black male seen again in the intensive care unit, room 250. He remains on the mechanical ventilator. His ventilator settings include the volume assist control, rate 20, tidal volume 450, FiO2 30%, and PEEP of 5. Arterial blood gases show pO2 of 91, pCO2 39, pH is 7.44. The patient's getting vital high protein at goal, which is 58 mL an hour, saline at 20 mL an hour, norepinephrine at 0.04 mcg/kg/m, D5W at 75 mL, and propofol at 35 mcg/kg/m. The patient continues on vancomycin and Zosyn. He's being followed by neurology. He did have a daily interruption of sedation yesterday. Laboratory data includes a white count 3.9, hemoglobin 9.5, hematocrit 30.3, and a platelet count 53,000. Sodium 143, potassium 3.3, chlorides 112, CO2 24, BUN 49, creat inine 2.29. Albumin is 2.2. Sputum is showing presumptive staph. The patient is given a dose of vancomycin pending the final identification. The blood cultures were positive for Proteus mirabilis, as well as the urine sampling. The patient's chest x-ray shows an infiltrate primarily in the left lower lobe. Progress note dated 09/01/2022. The patient was intubated on August 25, and extubated on August 29 I saw him last on August 28. Please see the note above. He's on 2 L of oxygen. An NG tube is in place. He is getting saline at 50 mL an hour. A PEG tube was to be placed today by one of the surgeons. He had Proteus in his blood and urine, and methicillin-resistant staph aureus in his sputum. The central line needs to be removed, in the midline place. The tip should be cultured. He is currently on Zosyn and ertapenem. Other than a glucose of 104, no blood testing today. The patient's chest x-ray is stable. Progress note dated 09/02/2022. 76-year-old white male seen again in room 250. He scheduled for a PEG tube placement today. The patient was intubated on August 25, for airway protection, and extubated on August 29. I saw him last on August 28. He's get an NG tube in place. He's on room air. Saturations are 97%. He's getting saline at 50 mL an hour. He is to have a PICC line placed today and the PEG tube. He is currently on Zyvox and ertapenem. Labs today include a white count 4.4, hemoglobin 9, hematocrit 28.2, and a normal platelet count. Electrolytes look pretty good other than the BUN was 29. Calcium is 7.8. Cultures show Proteus mirabilis in the blood from August 23, and methicillin-resistant staph aureus in the sputum on August 25. Chest x-ray shows some patchy bilateral infiltrates. Objective - Vital Signs Vital signs: Vital Signs Temp 97.7 F 09/02/22 08:00 Pulse 74 09/02/22 10:00 Resp 13 09/02/22 10:00 BP 130/51 09/02/22 10:00 Pulse Ox 96 09/02/22 10:00 FiO2 2 09/01/22 07:14 Intake & Output 09/01/22 09/02/22 09/02/22 18:59 06:59 18:59 Intake Total 725 1230 195 Output Total 1475 1580 350 Balance -750 -350 -155 Weight 104.5 kg Intake: IV 600 950 150 Linezolid 600 mg In 300 Dextrose/Water 1 300ml. bag @ 150 mls/hr IVPB Q12HR@0000,1200 [facility] Rx#: [id number] Sodium Chloride 0.9% 1, 600 650 150 000 ml @ 50 mls/hr IV . Q20H [facility] Rx#:[id number] Tube Feeding 125 250 15 Other 30 30 Output: Urine 1475 1550 350 Stool 30 Other: Voiding Method Indwelling Catheter Indwelling Catheter ABP, PAP, CO, CI - Last Documented Arterial Blood Pressure 151/46 - Exam Awake, lethargic, on room air, with an NG tube in place. HEENT examination is grossly unremarkable. Neck supple. Full range of motion. No adenopathy thyromegaly or neck vein distention. Cardiovascular examination reveals regular rhythm rate. S1-S2 normal. No S3 or S4. No discernible murmur noted. Heart rate is 74 bpm. Lungs reveal coarse bilateral breath sounds. No wheezes. No crackles. Saturation is 96 %. Abdomen soft, without sounds. No masses or tenderness. Well-healed liver transplant scar. Extremities are intact. No cyanosis or clubbing. Trace edema. Chronic venous stasis changes noted. Skin is without rash or lesion. Neurologic examination is improved. - Labs CBC & Chem 7: 08/31/22 05:12 09/02/22 07:17 Labs: Abnormal Lab Results - Last 24 Hours (Table) 08/31/22 09/01/22 09/02/22 Range/Units 05:12 11:55 07:17 BUN 29 H (9-20) mg/dL POC Glucose (mg/dL) 133 H (70-110) mg/dL Calcium 7.8 L (8.4-10.2) mg/dL Tacrolimus <1.5 L (5.0-20.0) ng/mL Microbiology - Last 24 Hours (Table) 08/26/22 04:11 Blood Culture - Final Blood No Growth after 144 hours Assessment and Plan Assessment: Hypotension, secondary to gram-negative sepsis, with Proteus mirabilis bacteremia and probable Proteus mirabilis urinary tract infection. Status post intubation and mechanical ventilation, 08/25/2022, as patient was unable to protect his airway, with successful extubation on August 29. Left lower lobe pneumonia, sputum is showing MRSA. 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 History of liver transplantation, at the [facility]. Acute kidney injury. Lactic acidosis. History of hypertension. History of gastroesophageal reflux disease. History of BPH. History of hyperlipidemia. Plan: Plan dated 08/24/2022. The patient is currently being evaluated by neurology. Computed tomography scan of the brain suggests an acute infarct, involving the left parietal lobe. Apparently the patient and/or the patient's family would like the patient transferred to the [facility]. I'm not sure that we will be able to accomplish that. He is currently on 6 L of oxygen. He is on norepinephrine at 0.04 mcg/kg/m. Blood gases show a mild metabolic acidosis. He is currently on Zosyn. Cultures have been done. Labs, x-rays, and medications are reviewed. I placed a left subclavian triple-lumen catheter in the patient as he had limited IV access. Plan dated 08/25/2022. The patient was electively intubated and mechanically ventilated, so he could safely go down for another CAT scan. Because of the acute change of this mental status, we were concerned that the ischemic stroke worsened. The patient had a right radial art line in place. Yesterday, I placed a left subclavian triple- lumen catheter. The patient remains on a sodium bicarbonate drip, and norepinephrine, for supportive blood pressure. Oral medications were discontinued. The patient could be started on tube feeds. We will check a blood gas. Additional recommendations and suggestions are forthcoming. Plan dated 08/26/2022. The patient was intubated, for airway protection, yesterday, August 25. In addition, a right radial arterial line was placed. The patient went down for a computed tomography scan, and it showed that the left parietal frontal infarct, has extended. Currently, the patient's on Zosyn for Proteus mirabilis UTI and Proteus mirabilis bacteremia. The patient's on 16 mcg/m norepinephrine. He is not receiving tube feeds, but they will be started today. The patient is currently sedated with propofol. FiO2 can be reduced. Prognosis is very poor. We will continue to follow make recommendations where appropriate. I asked the nurse to find out from the family, whether or not they want him transferred. Initially, they wanted him transferred to the [facility]. Plan dated 08/27/2022. The patient remains intubated, with poor neurologic status. He is being currently evaluated by neurology. Propofol is on hold. His IV switched him dextrose and saline at 75 mL an hour, complaining dextrose, because of hypernatremia and hyperchloremia. Labs, x-rays, and medications are all reviewed. The patient's overall prognosis is poor. He remains on Zosyn for Proteus bacteremia and Proteus urinary tract infection. We will continue to follow and make recommendations where appropriate. Plan dated 08/28/2022. The patient remains intubated. He did have a daily interruption of sedation yesterday. He was evaluated further by neurology. Currently, the patient's on propofol, and norepinephrine as mentioned above. He is getting tube feedings, at goal. The patient has evidence of both Proteus mirabilis bacteremia and Proteus mirabilis urinary tract infection. For that, the patient is on Zosyn. Sputum was positive for presumptive staph, and the patient was given a dose of vancomycin. Labs, x-rays, and medications are reviewed. We will continue to follow. The patient's most recent computed tomography scan showed evolution of his left frontal parietal ischemic CVA. Prognosis is guarded. Plan dated 09/01/2022. The patient is doing much better than when I saw him last, on August 28. At that time he was still intubated. He was extubated the following day in August 29. He is on 2 L. He got an NG tube in place. He is getting saline at 50 mL an hour. The patient is currently on ertapenem and Zosyn. The patient will have a PEG tube placed today. In addition, he needs a midline place, and the central line needs be discontinued with the tip cultured. Labs, x-rays, me dications are all reviewed. Prognosis is certainly guarded. Plan dated 09/02/2022. The patient is going to have a PEG tube placed today as well as a PICC line. The central line from the left subclavian site will be removed and the tip cultured. The patient's on Zyvox and ertapenem as per infectious diseases. He's on room air. Saturations are excellent. The patient is getting saline at 50 mL an hour. Additional recommendations and suggestions are forthcoming. Labs, x-rays, and medications are all reviewed. Time with Patient: Less than 30
--- NOTE | 2022-09-02 10:31 | IR ---
PICC LINE PLACEMENT: HISTORY: Infection requiring long-term antibiotic therapy PROCEDURE: Ultrasound guidance of PICC line placement. BRAKE REPAIR MECHANIC: Dr. Jackman. COMPLICATIONS: None ANESTHESIA: 1. 1% Lidocaine locally. FINDINGS/TECHNIQUE: The procedure was explained to the patient. The risks, complications, benefits and alternatives were discussed and any questions were answered. Informed consent was obtained. The patient was placed supine on the fluoroscopic table and prepped and draped in the usual sterile fas ion. Utilizing a 21 gauge needle and sonographic guidance, access in the right basilic vein was ach ieved and there is placement of a 0.018 guidewire. The vein is patent. A 5-F. sheath was placed ove r the guidewire. The guidewire and dilator were removed and a 5-F. Double lumen PICC line was placed through the sheath with the chest x-ray confirming the tip at the level of the SVC. The sheath was removed, the catheter was flushed and sutured into position. The patient was stable throughout the p rocedure and remained stable upon discharge from the Department of Radiology. The vein puncture was patent under ultrasound. A alvarado scale image was obtained to document patency of the vein punctured. All elements of the maximal barrier technique were utilized. IMPRESSION: 1. Successful PICC line placement under ultrasound performed bedside within the ICU.
--- NOTE | 2022-09-02 10:41 | P.PN ---
Subjective Patient is seen for follow-up for acute kidney injury. Patient has been extubated. He is following commands He is maintained on nasal cannula. Maintained on normal saline 50 mL an hour Maintained on tube feeding. Going for PEG tube today Good urine output Serum creatinine 1.0 mg/dL. Objective - Vital Signs Vital signs: Vital Signs Temp 97.7 F 09/02/22 08:00 Pulse 74 09/02/22 10:00 Resp 13 09/02/22 10:00 BP 130/51 09/02/22 10:00 Pulse Ox 96 09/02/22 10:00 FiO2 2 09/01/22 07:14 Intake & Output 09/01/22 09/02/22 09/02/22 18:59 06:59 18:59 Intake Total 725 1230 195 Output Total 1475 1580 350 Balance -750 -350 -155 Weight 104.5 kg Intake: IV 600 950 150 Linezolid 600 mg In 300 Dextrose/Water 1 300ml. bag @ 150 mls/hr IVPB Q12HR@0000,1200 [facility]ARA Rx#: [id number] Sodium Chloride 0.9% 1, 600 650 150 000 ml @ 50 mls/hr IV . Q20H T[facility]ARA Rx#:[id number] Tube Feeding 125 250 15 Other 30 30 Output: Urine 1475 1550 350 Stool 30 Other: Voiding Method Indwelling Catheter Indwelling Catheter ABP, PAP, CO, CI - Last Documented Arterial Blood Pressure 151/46 - Exam Awake, comfortable Following commands Examination of the heart S1 and S2 Bilateral breath sounds are heard, decreased breath sounds at the bases Abdomen is soft Examination lower extremities shows edema 1+ bilaterally and edema in the upper extremities as well - Labs CBC & Chem 7: 09/02/22 09:41 09/02/22 07:17 Labs: Abnormal Lab Results - Last 24 Hours (Table) 08/31/22 09/01/22 09/02/22 Range/Units 05:12 11:55 07:17 RBC (4.30-5.90) m/uL Hgb (13.0-17.5) gm/dL Hct (39.0-53.0) % BUN 29 H (9-20) mg/dL POC Glucose (mg/dL) 133 H (70-110) mg/dL Calcium 7.8 L (8.4-10.2) mg/dL Tacrolimus <1.5 L (5.0-20.0) ng/mL 09/02/22 Range/Units 09:41 RBC 3.33 L (4.30-5.90) m/uL Hgb 9.0 L (13.0-17.5) gm/dL Hct 28.2 L (39.0-53.0) % BUN (9-20) mg/dL POC Glucose (mg/dL) (70-110) mg/dL Calcium (8.4-10.2) mg/dL Tacrolimus (5.0-20.0) ng/mL Microbiology - Last 24 Hours (Table) 08/26/22 04:11 Blood Culture - Final Blood No Growth after 144 hours Assessment and Plan Assessment: 1. Acute kidney injury secondary to ATN secondary to septic shock and contrast- induced acute kidney injury. Patient received IV contrast on 08/23/2022. Creatinine was 1.74 on admission and peaked at 2.78 - 1.0 today. Nonoliguric. No hydronephrosis noted on CAT scan. 2. Chronic kidney disease stage IIIa with baseline creatinine in the range of 1.2-1.5 secondary to nephrosclerosis and long-term calcineurin inhibitor use. 3. 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 4. Metabolic acidosis secondary to acute kidney injury, lactic acidosis and IV fluids. Status post bicarb drip. 5. 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 Neurology following. 6. Septic shock secondary to Proteus UTI and bacteremia on antibiotics. Status post pressors. Proteus mirabilis bacteremia and MRSA in the sputum 7. Hyernatremia currently maintained on D5W and improved. Patient is also r eceiving free water flushes down his feeding tube. Plan: DC IV fluids Continue with free water flushes once tube feeds restarted. Monitor sodium levels
--- NOTE | 2022-09-02 11:48 | P.PN ---
Subjective Progress Note Date: 09/02/22 76-year-old the male came in with the comments of generalized weakness and a nonspecific abdominal pain diffuse. Patient the overall clinical condition gotten worse patient became more septic patient is on immunosuppressive therapy with tacrolimus, mycophenolate. Patient was subsequently admitted to ICU. Patient neurological status also has worsened because of which the it was believed the patient has stroke. Patient does have chronic right-sided weakness with strength of 3/5 which is his baseline. Patient underwent multiple imaging studies including her CT angios the head and neck as well as a CT of the head which showed acute ischemic stroke over the left parietal lobe with worsening weakness on the right side. Patient continued to be on antiplatelet therapy. Patient urine cultures came back positive for Proteus mirabilis and patient blood cultures are now positive for Proteus species possible source of infection being urinary tract infection this Proteus species is pansensitive to multiple antibiotics patient is presently on Zosyn. Patient liver enzymes on admission were within normal limits patient is a liver transplant patient patient liver enzymes went up minimally to 284 and ALP of 81 this is probably secondary to sepsis and patient has acute tumor necrosis secondary to sepsis with worsening creatinine of around 2.8 baseline creatinine of around 1. Patient was encephal opathic EEG was ordered.. Today morning patient is found to be hypoxic any arterial blood gases after which patient was intubated patient is presently on 100% FiO2 assist control ventilation with PEEP of 5. Patient with the has troponin of 0.49 secondary to sepsis. 08/26/2022 Patient continues to be monitored closely in the intensive care unit. Continues to be intubated and on mechanical ventilator with FiO2 of 40% with oxygen saturation of 100%, fever is improving currently 97.6. Blood pressure 106/60 which he has been continued on vasopressor support. Continues on propofol for sedation. Current antibiotic coverage of IV zosyn for proteus miribilis UTI and bacteremia. Infectious disease following. Cellcept remains on hold. Patient was able to receive prograf through NG tube today. Case was discussed with liver transplant team yesterday. Patient did have repeat brain CT completed yesterday showing evolving stroke left parietal/left front. No evidence for hemorrhagic conversion. Neurology following. Patient will be started on nutritional feeds today. As of yesterday family was undecided about pursuing transfer to another facility. They would still like to pursue transfer to [facility]. Did speak with Dr. Espinoza at [facility] yesterday and CT imaging was sent over at request of physician to review. Awaiting status update from [facility] transfer team regarding decision to accept. Family is aware of pending status as of yesterday with no new updates yet today. Labs today showing a white count of 12.6, platelet count of 93, sodium 142, potassium 4.4, BUN 31, creatinine 2.68, blood glucose 200s. AST 147, ALT 69, alk phos 124. 08/27/2022 Patient evaluated today in intensive care unit currently intubated on mechanical ventilator with FiO2 of 40%. He has remained afebrile. Currently maintaining blood pressures 130/60s off of pressor support. He continues to be sedated with propofol. Today he is responsive to painful stimulation of the right hand with minimal eye opening however continues to be drowsy, and from a neurological standpoint overall prognosis is poor. Plan today is to wean sedation and repeat brain CT if no neurological improvement. He is also continued on IV zosyn for proteus UTI and bacteremia. Repeat blood cultures are currently pending at this time, sputum culture is also pending. Continues on D5 normal saline at 75 mls per hour and urine output is about 675 mls in the last 24 hours. Labs today are showing sodium level of 145, potassium 3.9, BUN 42, creatinine 2.56, blood glucose in the 200s, calcium 6.7, magnesium 2.3, liver enzymes are continuing to improve AST 66, ALT 50, alk phos 82. Remains on tacrolimus and IV solumedrol. Platelet count has continued to drop currently now 49, hgb of 10.5, white count 4.6. Fibrinogen, PT/INR, pTT within normal limits. Hematology consultation requested for further investigation and will recommend to hold off on heparin subcutaneous for now. Noted that patient was on single antiplatelet therapy for acute evolving ischemic infarct and aspirin is currently being held as well now. Chest xray today showing Left lower lobe infiltrate. For now [facility] transfer pending this was done for family request. have not heard back if physician has accepted. 08/28/2022 Patient is evaluated in intensive care unit today. Pending return phone call from [facility] transfer regarding acceptance, the physician Dr. Rosas was going to speak with inspector crystal. Patient repeat chest x-ray today showing possible atypical pulmonary edema with left lower lobe pneumonia remains within the differential. Sputum cultures positive for MRSA, repeat blood cultures are pending so far. Patient continues on the Zosyn and received a dose of IV vancomycin. Infectious disease is following patient closely. Continues on IV Solu-Medrol, he is currently maintained on norepinephrine at 0.01 mcgs, he is receiving propofol for sedation. IV fluids are infusing D5 in water at 75 mls per hour. Patient remains afebrile, heart rate 73, blood pressure 121/56, 97% oxygen saturation on the mechanical ventilator of FiO2 30%. Labs today are halley wing a white count of 3.9, hemoglobin 9.5, platelet count of 53, potassium 3.3, BUN 49, creatinine 2.29, blood glucose in the 120s. He had ABGs completed today. He is receiving enteral nutrition. Plan is for repeat CT today and from there we'll discuss with family and also follow up with [facility]. Prognosis remains poor at this time. 08/29/2022 Patient continues to be monitored closely in intensive care unit. He had chest xray today showing possible congestive heart failure with pneumonia not e xcluded. Repeat brain CT showing stable infarct posterior left centrum semiovale infarct. Patient has been extubated today. Currently on sedation holiday. Currently afebrile, heart rate 72, blood pressure 128/48. Maintaining oxygen saturations on 2L nasal cannula at 98%. Antibiotics have been adjusted by infectious disease. On IV linezolid and IV ertapenem. He has been weaned off of levophed. Continues on IV steroids. Labs today showing white count 4.1, hgb 9.1, BUN 46, creatinine 1.42, glucose 130s. Chest xray will be repeated tomorrow. Plan to continue monitoring and evaluate defecits. Family updated that Dr. Rosas with [facility] has denied patient for transfer to [facility]. 08/30/2022 Patient is evaluated today in intensive care unit he has been extubated and is currently maintained on 2L of oxygen via nasal cannula. He is nonverbal however he does follow verbal commands. Patient had chest xray this morning showing bilateral lower lobe infiltrate and pleural effusion greater on the left, stable. CHF vs. Pneumonia. Patient is being treated currently with IV linezolid and also IV ertapenem for proteus bacteremia and also sputum culture showing MRSA. Today his platelet count is 144, hgb stable at 9.5. He has NG tube in place and has been started on plavix and also aspirin 81 mg daily and subcu heparin. Kidney function continues to improve BUN 43, creatinine 1.04. Blood glucose in the 110s. He is receiving enteral nutrition with vital AF goal 75 mls per hour. Speech therapy has evaluated the patient today and will continue to remain nothing by mouth secondary to suspected severe dysphagia. Global aphasia. Pending re-evalution and further recommendations by neurology today. Patient most likely will need PEG tube placement and this will be discussed with family. 08/31/2022 Patient continues to be monitored closely in intensive care unit. Remains on 2L nasal cannula, has been weaned off pressor support. Continues on IV ertapenem and IV linezolid secondary to MRSA in the sputum and proteus bacteremia and UTI. Chest xray continues to show pneumonia versus chf. He is receiving enteral nutrition via NG tube. He is receiving vital AF at 50 mls/hr goal is 75. He is also on IV fluids normal saline at 50mls/hr. Speech therapy assessment showing minimal oral motility and speech continuing to recommend NPO and unable to take oral medication. Discussed this with daughter and that patient will require significant rehabilitation. Patients daughter somewhat understanding. For now infectious disease management of antibiotics, he has triple lumen catheter in place and arterial line. Nephrology following. Pulmonary inspector crystal following. Would recommend PEG tube placement at this time secondary to dysphagia. Daughter agreeing to speak with surgery in consultation. Per daughter she works today she will be available tomorrow and she would like to speak with surgery prior to PEG tube placement. Labs today showing white count of 4.6, hgb of 9.4, sodium 138, potassium 4.1. BUN 38, creatinine 0.97. Blood pressure 124/57. Continues on aspirin/plavix dual antiplatelet combination. 09/01/2022 Patient to be closely monitored in intensive care unit. He is on 2 Liters of rehan al cannula at this time, 97% oxygen saturations. He remains afebrile, heart rate 80, blood pressure 134/61. Continues on IV antibiotics in the form of ertapenem, linezolid. He is maintained on tacrolimus, and IV solumedrol for the history of liver transplant. Additionally he continues on IV linezolid and IV ertapenem for the MRSA in the sputum and the proteus bacteremia and UTI. He has NG Tube in place receiving enteral nutrition. Discussed in detail for greater than 30 minutes with patients daughter over the phone the plan and updated on current labs and clinical conditions and current recommendations. Patients daughter would like to speak with the inspector crystal prior to make decision regarding PEG tube. All questions answered but she still has concern. Patient continues on aspirin 81 mg po and sub cu heparin, plavix has been placed on hold and pending PEG tube placement. He has been maintained off of pressor support at this time. 09/02/2022 Patient underwent single lumen PICC line placement to right upper arm today. Continues on IV ertapenem and IV Linezolid. Infectious disease following. Patient is scheduled to undergo PICC line placement today. Nystatin swish will be ordered for his oral cavity, RN to use oral sponges to apply to tongue. Patient is able to speak more today, however his speech remains garbled. He is alert x 2. He has NG tube in place and the plan is to continue enteral nutrition with vital 1.2 with goal of 75 mls/hr and water flush 30 mL every 4 hours. Anni vix has been placed no hold for PEG tube procedure with Dr. Burris. Continues on IV solumedrol and oral tacrolimus secondary to history of liver transplant. His mycophenolate remains on hold. Labs today showing white count of 4.4, hgb 9.0, platelet count 235. Sodium 139, potassium 3.5, BUN 29, creatinine 1.03. Glucose 88. He continues with lower extremity edema, has pressure reduction boots applied. He remains afebrile, heart rate 76 normal sinus rhythm, blood pressure 130/51, 96% on 2L nasal cannula. He remains closely monitored in intensive care unit. He is being followed closely by multiple consultations including nephrology, neurology, infectious disease, pulmonary inspector crystal, general hussein rgsilvia. Unable to complete full review of systems. He denies pain today. PHYSICAL EXAMINATION: GENERAL: This is a 76 year old male who appears stated age. Patient is being monitored in intensive care unit, lethargic. Extubated. HEENT: Pupils are round and equally reacting to light. EOMI. No scleral icterus. No conjunctival pallor. Normocephalic, atraumatic. No pharyngeal erythema. No thyromegaly. CARDIOVASCULAR: S1 and S2 present. No murmurs, rubs, or gallops. Tachycardic. PULMONARY: Coarse ronchorous lungs sounds, no wheezing noted. ABDOMEN: Soft, nontender, nondistended, normoactive bowel sounds. No palpable organomegaly. Has liquid stool, fecal management system in place, indwelling catheter in place. NG tube in place. MUSCULOSKELETAL: No joint swelling or deformity. EXTREMITIES: No cyanosis, clubbing, or pedal edema. NEUROLOGICAL: Diffuse global weakness, with right side hemiplegia. Has minimal movement to right hand today. Garbled speech. SKIN: No rashes. Assessment and Plan Assessment -Septic shock secondary Proteus mirabilis UTI and bacteremia, present on admission. MRSA positive sputum. -Acute ischemic infarct left parietal region in the left STEVE territory with severe right sided weakness/hemiplegia, global aphasia. -Acute hypoxic respiratory failure secondary to sepsis/possible aspiration patient is currently extubated on 2L nasal cannula -Acute kidney injury secondary to acute tubular necrosis secondary to septic shock. Resolved. -Elevated troponin secondary to septic shock -Hypoglycemia resolved continues on enteral nutrition -Metabolic acidosis secondary to acute kidney injury, lactic acidosis, resolved -Elevated transaminases, initially negative, possibly from sepsis which they have now normalized. 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 [facility] has denied patient for transfer to [facility]. -History of hypertension patient is currently normotensive weaned off of pressor support -Stage 2 sacral decub -History of gastroesophageal reflux disease -BPH -Hyperlipidemia -History of old stroke residual weakness on the right side. GI Prophylaxis DVT Prophylaxis subcutaneous heparin Full Code Neurology recommending dual antiplatelet therapy for 21 days. Patient to be continued on plavix indefinitely. He currently remains on aspirin 81 mg po daily and plavix is on hold for PEG tube placement. He has NG tube in place. He is receiving enteral nutrition. Once patient reaches goal of 75 mls/hr, nephrology recommending to discontinue IV fluids. NPO status with severe dysphagia and also global aphasia. Patient is high risk for aspiration secondary to poor oral motility. Infectious disease recommendations for antibiotic therapy, currently maintained on IV linezolid and IV ertapenem, patient received PICC Line today to right upper extremity. Physical therapy evaluation recommended for subacute rehab with /7 care at this time. Continues to be monitored closely in intensive care unit. The impression and plan of care has been dictated by Aisha Taylor Nurse Practitioner as directed. Dr. Harsha MD I have performed a history and physical examination and medical decision making of this patient, discussed the same with the dictator, and agree with the dictators assessment and plan as written, documented as a scribe. Based on total visit time, I have performed more than 50% of this visit. Objective - Vital Signs Vital signs: Vital Signs Temp 97.7 F 09/02/22 08:00 Pulse 76 09/02/22 11:33 Resp 13 09/02/22 10:00 BP 130/51 09/02/22 10:00 Pulse Ox 96 09/02/22 10:00 FiO2 2 09/01/22 07:14 Intake & Output 09/01/22 09/02/22 09/02/22 18:59 06:59 18:59 Intake Total 725 1230 195 Output Total 1475 1580 510 Balance -750 -350 -315 Weight 104.5 kg 104.5 kg Intake: IV 600 950 150 Linezolid 600 mg In 300 Dextrose/Water 1 300ml. bag @ 150 mls/hr IVPB Q12HR@0000,1200 [facility]ARA Rx#: [id number] Sodium Chloride 0.9% 1, 600 650 150 000 ml @ 50 mls/hr IV . Q20H [facility]ARA Rx#:[id number] Tube Feeding 125 250 15 Other 30 30 Output: Urine 1475 1550 480 Stool 30 30 Other: Voiding Method Indwelling Catheter Indwelling Catheter Indwelling Catheter # Voids 85 ABP, PAP, CO, CI - Last Documented Arterial Blood Pressure 151/46 - Labs CBC & Chem 7: 09/02/22 09:41 09/02/22 07:17 Labs: Abnormal Lab Results - Last 24 Hours (Table) 08/31/22 09/01/22 09/02/22 Range/Units 05:12 11:55 07:17 RBC (4.30-5.90) m/uL Hgb (13.0-17.5) gm/dL Hct (39.0-53.0) % BUN 29 H (9-20) mg/dL POC Glucose (mg/dL) 133 H (70-110) mg/dL Calcium 7.8 L (8.4-10.2) mg/dL Tacrolimus <1.5 L (5.0-20.0) ng/mL 09/02/22 Range/Units 09:41 RBC 3.33 L (4.30-5.90) m/uL Hgb 9.0 L (13.0-17.5) gm/dL Hct 28.2 L (39.0-53.0) % BUN (9-20) mg/dL POC Glucose (mg/dL) (70-110) mg/dL Calcium (8.4-10.2) mg/dL Tacrolimus (5.0-20.0) ng/mL Assessment and Plan Time with Patient: Less than 30
[2022-09-02] MEDS: LINEZOLID 600 MG in DEXTROSE/WATER 1 300ML.BAG IVPB SCH (12:07)
[2022-09-02 12:11] LABS: Glucose,Whole Blood 112 mg/dL (70-110)
[2022-09-02 13:49] LABS: Lymphocytes # (M) 1.01 k/uL (1.0-4.8); Monocytes # (M) 0.22 k/uL (0-1.0); Neutrophils # (M) 3.17 k/uL (1.3-7.7); Neutrophils % (M) 72 %; Nucleated Red Blood Cells 0 /100 WBC (0-0); Total Cells Counted 100
[2022-09-02] MEDS ORDERED: LACTATED RINGERS 1,000 ML IV ONE (14:28)
[2022-09-02] MEDS ORDERED: LIDOCAINE 2% INJ 20 MG/ML (2 ML VIAL) ONE (14:37)
[2022-09-02] MEDS ORDERED: PROPOFOL 10 MG/ML 20 ML VIAL IV ONE (14:37)
--- NOTE | 2022-09-02 15:01 | P.PCN ---
Date of Procedure: 09/02/22 Procedure(s) Performed: PREOPERATIVE DIAGNOSIS: Malnutrition, dysphagia POSTOPERATIVE DIAGNOSIS: Same PROCEDURE: EGD with PEG tube placement SURGEON: Fatuma EBL: Minimal ANESTHESIA: Sedation COMPLICATIONS: None OPERATIVE PROCEDURE: The patient was placed in the supine position on the endoscopy table. The patient was sedated per anesthesia that time. The Olympus gastroscope was inserted into the oropharynx and passed under direct visualization to the region of the duodenum. No obstruction was seen. The pylorus was widely patent. The stomach was carefully inspected. The stomach was fully insufflated with air. The abdominal wall was inspected. The light was seen shining through the abdominal wall in the left upper quadrant. This site was chosen for PEG tube placement. The area was prepped in the usual sterile fashion. This area was then localized with lidocaine. No air was evident when aspirating while advancing the localizing needle into the stomach until the stomach was reached. A small vertical incision was made using the scalpel. The Seldinger needle was advanced into the lumen of the stomach the wire was advanced. The wire was grasped with an endoscopic snare. The wire was pulled through the oropharynx. The catheter was then threaded over the guidewire and the guidewire and catheter were pulled anteriorly until the hub of the PEG tube catheter was seated against the anterior wall the stomach. The circular bolster was applied and tightened down. The endoscope was then readvanced into the stomach. There was no evidence of any bleeding and there was appropriate tightness on the bolster. The catheter was cut appropriately. The dual port feeding adapter was applied. DISPOSITION: Stable to recovery room
--- NOTE | 2022-09-02 15:45 | P.PN ---
Subjective Progress Note Date: 09/02/22 09/02/2022: Patient was seen for a follow-up. Patient is laying comfortably in the bed. Family members not present today. Patient clinically unchanged. 09/01/2022: Patient was seen for a follow-up. Patient's daughter was present today. Patient is showing clinical improvement, slow steady, as per examination below. Patient has failed swallow. Patient is undergoing PEG tube placement in the morning. His daughter has given the consent. 08/31/2022: Patient was seen for a follow-up. Patient clinically and changes compared to yesterday. Patient is laying in the bed. Has NG tube in place. 08/30/2022: Patient was seen for a follow-up. Patient is much more alert and awake. Still somewhat groggy, slightly encephalopathic. Patient denies headache. Patient is laying comfortably in the bed. No arrhythmia. 08/29/2022: Patient was seen for a follow-up. Patient initially seen by Dr. Poncho De Santiago. Please refer to his note for details. Patient is a 76-year-old right-handed male who has presented with acute left parietal stroke with right hemiplegia. Patient was initially intubated, placed on a ventilator because he was not able to protect his airway. EEG was negative for seizure. Patient has no significant carotid stenosis about 50%. CTA of the head and neck worse recommended once his kidney functions improved. Patient not on any antiplatelet medication because he was thrombocytopenic. Family requested patient to be transferred to [facility], but it has been declined. Repeat computed tomography scan was performed. Patient was seen for a follow-up. Patient's grandson was present. He called his aunt, who is a caregiver to the patient and she was present over the speaker phone. Patient has been extubated earlier today. Patient is on contact isolation for MRSA. Patient's right arm and right leg is flaccid. He has severely garbled speech. Patient has been on aspirin 81 mg daily prior to arrival to the hospital. Prior workup: Urine culture is positive for Proteus mirabilis. Blood culture is positive for Proteus mirabilis Lipid panel is triglyceride 112, cholesterol 111, LDL is 61, HDL is 27. Ammonia level is less than [address] of the head is reported as cerebral atrophy. Old small cortical infa rct in the left internal capsule. No acute abnormality. CT angiography of the head and neck is reported as angiogram is nondiagnostic since there is no vascular contrast. There is cerebral or cortical atrophy. No acute intercranial abnormality. No significant abnormality of the neck. Mild spondylitic changes in the cervical spine. Repeat CT of the head as reported as there is a 4 cm poorly marginated area of hypodensity in the left parietal lobe consistent with acute infarct and isn't c hanged compared to recent exam. No hemorrhage seen. Cerebral atrophy. Then later, reading radiologist has addendum and reports it is that acute infarct is a change compared to recent exam. I personally reviewed the CT of the head on the most recent CT that was done last and I felt the left parietal seemed acute. There is no intraparenchymal hemorrhage. And then I was compared it to initial CT head on presentation, I felt different in which, I did not notice any remarkable acute ischemic in left parietal on initial CT. Carotid duplex was reported as there is bilateral plaque formation. There is bilateral mild elevation of internal carotid artery velocity. There is ant egrade flow in the vertebral arteries. The images and measurements suggest 50- 70% stenosis in both internal carotid arteries. Repeat CT head on 08/25/2022 is reported as increased size of low attenuation region in the medial left frontal/parietal lobe consistent with evolving acute/subacute infarct compared to the prior CT brain on 08/23/2022. No evidence for hemorrhagic conversion. I personally reviewed the image and I do agree there is evolution of the stroke but I feel mostly it's over the left parietal stroke than frontal. Routine EEG on 08/25/2022: Is abnormal. The background slowing suggestive of moderate encephalopathy. There is no focal slowing, epileptiform discharge or seizure on the EEG. Excessive beta activity and some diffuse suppression seen during the study is likely due to medication effect (Ativan). 2D echo is reported as likely normal left ventricle size and systolic function. Normal left atrial size. Objective - Vital Signs Vital signs: Vital Signs Temp 97.7 F 09/02/22 08:00 Pulse 97 09/02/22 15:35 Resp 17 09/02/22 12:00 BP 131/61 09/02/22 12:00 Pulse Ox 94 L 09/02/22 12:00 FiO2 2 09/01/22 07:14 Intake & Output 09/01/22 09/02/2209/02/22 18:59 06:59 18:59 Intake Total 725 1230 295 Output Total 1475 1580 705 Balance -750 -350 -410 Weight 104.5 kg 104.5 kg Intake: IV 600 950 250 Linezolid 600 mg In 300 Dextrose/Water 1 300ml. bag @ 150 mls/hr IVPB Q12HR@0000,1200 [facility] Rx#: [id number] Sodium Chloride 0.9% 1, 600 650 150 000 ml @ 50 mls/hr IV . Q20H [facility] Rx#:[id number] Tube Feeding 125 250 15 Other 30 30 Output: Urine 1475 1550 675 Stool 30 30 Other: Voiding Method Indwelling Catheter Indwelling Catheter Indwelling Catheter # Voids 85 ABP, PAP, CO, CI - Last Documented Arterial Blood Pressure 151/46 - Exam Patient is slightly groggy, but otherwise awake and becomes somewhat semi-alert. Patient has significant slurred speech,, but better than yesterday. Patient was clearly able to say eyeglasses and pencil. Patient appropriately answering yes and no questions. Patient has right facial weakness. Patient has about 4-antique refinisher on the right, 4+5- on the left. Proximally the strength appears much better on the left, whereas now movement in the right upper limb proximally. Patient's right leg is flaccid. Patient has good strength of the left ankle dorsiflexion. Patient has very significant peripheral edema. Hip flexion was about 2. - Labs CBC & Chem 7: 09/02/22 09:41 09/02/22 07:17 Labs: Abnormal Lab Results - Last 24 Hours (Table) 09/02/22 09/02/22 09/02/22 Range/Units 07:17 09:41 12:09 RBC 3.33 L (4.30-5.90) m/uL Hgb 9.0 L (13.0-17.5) gm/dL Hct 28.2 L (39.0-53.0) % BUN 29 H (9-20) mg/dL POC Glucose (mg/dL) 112 H (70-110) mg/dL Calcium 7.8 L (8.4-10.2) mg/dL Assessment and Plan Assessment: * Acute ischemic stroke over left parietal region in the left STEVE territory with right hemiparesis, leg much more involved as compared to the right arm. Mechanism of stroke likely from moderate bilateral ICA stenosis. * Altered mental status seems due to metabolic encephalopathy, improved. * Dysphagia, failed swallow, likely due to CVA. * Carotid stenosis 50-70% bilateral ICA on carotid duplex but was felt just at 5 0% by vascular surgery team. * Acute Thrombocytopenia, resolved. * Sepsis (likely due to UTI and blood is positive for proteus species) * Renal insufficiency, resolved * Elevated liver function, resolved. * History of old stroke with some weakness possible lower weakness but was able to ambulate * History of liver failure s/p transplant Plan: Patient is showing signs of clinical improvement. Mentation, speech and strength is slightly improved. Repeat CT head from 08/28/2022 revealed stable posterior left centrum semiovale infarct. I personally reviewed CT head, appears to involve the left STEVE territory involving the left parietal region. No hemorrhage. Patient has failed aspirin regimen. We will start patient on Plavix 75 mg daily. Recommend continuing dual antiplatelet medication for 21 days, thereafter stop aspirin and continue Plavix indefinitely. NG tube has been placed. Start Pepcid 20 mg twice a day for gastric ulcer prophylaxis. Hemoglobin A1c 5.7. Lipid panel with cholesterol 111, LDL 61, HDL 27 and triglycerides 112. Continue Lipitor 40 mg daily at bedtime for secondary stroke prophylaxis 2-D echo revealed normal left-ventricular size and systolic function. EF is 55- 60%. Small left ventricular cavity. Borderline LVH. Left atrial size is normal. 2-D echo revealed no obvious embolic source. Patient CVA likely due to ICA stenosis. Antiplatelet regimen changed as above. No definitive indication for ABBY. Carotid Doppler revealed 50-70% stenosis bilateral ICA. Antegrade flow in both vertebral arteries. Vascular surgery team for the carotid stenosis and they felt carotid stenosis at 50%. They did not feel he was a surgical candidate at this time. PT, OT and LEGAL INSTRUCTOR are consulted. Patient to undergo PEG placement later today. Patient on Invanz and Linezoid. We'll defer the rest of the medical management to the primary and ICU team For DVT prophylaxis use SCD's. Subq heparin if no medical contraindications. Neurologically clear for transfer to rehab facility after PEG placement. Dr. Poncho De Santiago will be starting neurology service from the morning. Please recon sult neurology for any neurological concerns.
[2022-09-02] MEDS: ERTAPENEM 0.5 GM in SODIUM CHLORIDE 0.9% 50 ML IVPB SCH (16:11)
[2022-09-02] MEDS: NYSTATIN 100,000 UNIT/ML SUSP 500,000 UNIT/5 ML CUP PO SCH ×3 (16:19→21:58)
[2022-09-02 18:28] LABS: Glucose,Whole Blood 107 mg/dL (70-110)
[2022-09-02] MEDS: LATANOPROST 0.005% OPHTH DROPS 2.5 ML BTL BOTH EYES SCH (21:00)
[2022-09-03] MEDS: INSULIN ASPART (NovoLOG) 100 UNIT/ML VIAL SQ SCH ×5 (00:02→23:41)
[2022-09-03] MEDS: LINEZOLID 600 MG in DEXTROSE/WATER 1 300ML.BAG IVPB SCH ×3 (00:11→23:44)
[2022-09-03] MEDS: IPRATROPIUM-ALBUTEROL 3 ML NEB INHALATION SCH ×4 (09:47→19:36)
[2022-09-03] MEDS: ASPIRIN 81 MG PO SCH (10:48)
[2022-09-03] MEDS: HEPARIN SODIUM,PORCINE/PF 5,000 UNIT/0.5 ML SYRINGE SQ SCH ×2 (10:48→23:40)
[2022-09-03] MEDS: FAMOTIDINE 20 MG TAB PO SCH ×2 (10:49→23:29)
--- NOTE | 2022-09-03 10:49 | P.PN ---
Subjective Progress Note Date: 09/03/22 Principal diagnosis: Dysphagia Patient doing well today. He appears comfortable. Denies pain. Tube feeds are being started. Objective - Vital Signs Vital signs: Vital Signs Temp 98.5 F 09/03/22 00:00 Pulse 78 09/03/22 07:30 Resp 13 09/03/22 02:00 BP 129/61 09/03/22 02:00 Pulse Ox 96 09/03/22 09:46 FiO2 2 09/03/22 00:00 Intake & Output 09/02/22 09/03/22 09/03/22 18:59 06:59 18:59 Intake Total 725 620 150 Output Total 1380 800 600 Balance -655 -180 -450 Weight 104.5 kg Intake: IV 680 620 150 Ertapenem 0.5 gm In 50 Sodium Chloride 0.9% 50 ml @ 100 mls/hr IVPB Q24H [facility] Rx#:[id number] Linezolid 600 mg In 300 300 Dextrose/Water 1 300ml. bag @ 150 mls/hr IVPB Q12HR@0000,1200 [facility] Rx#: [id number] Sodium Chloride 0.9% 1, 230 320 150 000 ml @ 50 mls/hr IV . Q20H [facility] Rx#:[id number] Tube Feeding 15 Other 30 Output: Urine 1350 800 600 Stool 30 Other: Voiding Method Indwelling Catheter Indwelling Catheter # Voids 85 ABP, PAP, CO, CI - Last Documented Arterial Blood Pressure 151/46 - Exam Abdomen: Soft, nondistended, PEG tube in place with minimal tenderness, no drainage - Labs CBC & Chem 7: 09/02/22 09:41 09/02/22 07:17 Labs: Abnormal Lab Results - Last 24 Hours (Table) 09/02/22 Range/Units 12:09 POC Glucose (mg/dL) 112 H (70-110) mg/dL Assessment and Plan (1) Dysphagia Narrative/Plan: Patient is doing well after PEG tube placement. Gradually resume tube feeds. We'll follow. Current Visit: Yes Status: Acute Code(s): R13.10 - DYSPHAGIA, UNSPECIFIED SNOMED Code(s): 89468742
[2022-09-03] MEDS: NYSTATIN 100,000 UNIT/ML SUSP 500,000 UNIT/5 ML CUP PO SCH ×4 (10:50→23:31)
[2022-09-03] MEDS: TACROLIMUS 0.5 MG CAP PO SCH ×2 (10:50→23:29)
[2022-09-03] MEDS: ERTAPENEM 1 GM in SODIUM CHLORIDE 0.9% 50 ML IVPB SCH (11:01)
[2022-09-03 11:36] LABS: Glucose,Whole Blood 72 mg/dL (70-110)
[2022-09-03 11:36] LABS: Glucose,Whole Blood 74 mg/dL (70-110)
[2022-09-03 11:36] LABS: Glucose,Whole Blood 74 mg/dL (70-110)
--- NOTE | 2022-09-03 11:36 | XR ---
EXAMINATION TYPE: XR chest 1V portable DATE OF EXAM: 09/03/2022 1:10 AM COMPARISON: Chest radiograph from one day prior. CT abdomen pelvis 08/23/2022. TECHNIQUE: XR chest 1V portable Portable AP radiograph of the chest. CLINICAL INDICATION:Male, 76 years old with history of Shortness of breath; FINDINGS: Lungs/Pleura: There is no evidence of pleural effusion, focal consolidation, or pneumothorax. Elevat ed left diaphragm. Pulmonary vascularity: Unremarkable. Heart/mediastinum: Cardiomediastinal silhouette is enlarged and stable. Musculoskeletal: No acute osseous pathology. Other findings: None Lines/Tubes: Left central venous catheter with distal tip at the cavoatrial junction. Right-sided PICC line with distal tip at the cavoatrial junction. Interval removal of nasogastric tube. IMPRESSION: 1. Stable support lines. 2. Cardiomegaly
[2022-09-03 11:45] LABS: Glucose,Whole Blood 71 mg/dL (70-110)
[2022-09-03] MEDS ORDERED: Potassium Replacement Protocol 1 EACH MISC MISCELLANE PRN (12:06)
[2022-09-03] MEDS ORDERED: POTASSIUM BICARBONATE/CIT AC 20 MEQ TABLET.EFF NG-TUBE SCH (13:00)
--- NOTE | 2022-09-03 13:07 | PN ---
PROGRESS NOTE DATE OF SERVICE: 09/03/2022 This is a Pulmonary/Critical Care Progress Note. SUBJECTIVE: This is a 76-year-old black male, who is seen in room 250. He is resting comfortably. He is on room air. The NG tube has been removed. He is getting saline at 50 mL an hour. He had a PEG tube placed yesterday on September 02. He has no complaints today. He had an uneventful night according to the nurses. OBJECTIVE: VITAL SIGNS: Blood pressure 118/72, heart rate 69, respiratory rate 18, temperature 96.8, saturations 97%. GENERAL: He appears in no acute distress. He is resting comfortably. No respiratory difficulty. HEENT: Grossly unremarkable. NECK: Supple. Full range of motion. No adenopathy. Subclavian central line has been removed. CARDIOVASCULAR: Reveals regular rhythm and rate. Heart rate 69. S1, S2 normal. Heart sounds are distant. LUNGS: Reveal some scattered rhonchi. Breath sounds equal. No crackles. Room air saturation 97%. ABDOMEN: Soft. Bowel sounds are heard. PEG tube is noted. EXTREMITIES: Intact. No significant edema. SKIN: Without rash. NEUROLOGIC: Brief, but unchanged. Labs are not available. [employer] is down. X-rays are not available. Medications are not available. ASSESSMENT: 1. Respiratory failure with brief period of intubation and mechanical ventilation secondary to left parietofrontal cerebrovascular accident. 2. Sepsis. 3. General medical debility. 4. Proteus mirabilis urinary tract infection. PLAN: The patient is doing well. PEG tube was placed yesterday, September 02. Labs, x-rays, and medications are unavailable. We will continue to follow. Prognosis is guarded. The patient could be transferred out of the intensive care unit. Vital signs are stable. MMODL / IJN: [id number] /
--- NOTE | 2022-09-03 16:07 | P.PN ---
Subjective Progress Note Date: 09/03/22 Follow-up for acute kidney injury. PEG tube was placed yesterday, feeding started today. Urine output of 2100 ML's in the last 24 hours. Objective - Vital Signs Vital signs: Vital Signs Temp 98.2 F 09/03/22 08:00 Pulse 90 09/03/22 15:22 Resp 16 09/03/22 15:00 BP 128/54 09/03/22 15:00 Pulse Ox 98 09/03/22 15:15 FiO2 2 09/03/22 00:00 Intake & Output 09/02/22 09/03/22 09/03/22 18:59 06:59 18:59 Intake Total 725 620 585 Output Total 5826 957 2239 Balance -655 -180 -495 Weight 104.5 kg Intake: IV 680 620 475 Ertapenem 0.5 gm In 50 50 Sodium Chloride 0.9% 50 ml @ 100 mls/hr IVPB Q24H [facility] Rx#:[id number] Linezolid 600 mg In 300 300 Dextrose/Water 1 300ml. bag @ 150 mls/hr IVPB Q12HR@0000,1200 [facility] Rx#: [id number] Sodium Chloride 0.9% 1, 230 320 425 000 ml @ 50 mls/hr IV . Q20H [facility] Rx#:[id number] Tube Feeding 15 80 Other 30 30 Output: Urine 7646 397 0431 Stool 30 Other: Voiding Method Indwelling Catheter Indwelling Catheter Indwelling Catheter # Voids 85 ABP, PAP, CO, CI - Last Documented Arterial Blood Pressure 151/46 - Exam No acute distress Oral mucosa appears dry S1-S2 heard Lungs clear No edema - Labs CBC & Chem 7: 09/02/22 09:41 09/02/22 07:17 Assessment and Plan Assessment: #1 acute kidney injury secondary to hemodynamic ATN. #2 chronic kidney disease stage III A secondary to nephrosclerosis with a baseline creatinine of 1.2 MG per DL. #3 CVA status post PEG tube placement #4 complicated UTI. #5 liver disease status post liver transplant on Prograf. Plan: #1 renal functions better than baseline. #2 DC IV fluids by tomorrow, add free water 25 ML's an hour via feeding tube. #3 avoid nephrotoxic agents and hypotensive episodes.
[2022-09-03 17:36] LABS: Calcium 7.9 mg/dL (8.4-10.2); Magnesium 1.9 mg/dL (1.6-2.3); Potassium 3.7 mmol/L (3.5-5.1)
[2022-09-03 17:39] LABS: HCT 29.9 % (39.0-53.0); HGB 9.3 gm/dL (13.0-17.5); Hypochromasia Moderate; MCH 27.1 pg (25.0-35.0); MCV 87.4 fL (80.0-100.0); Mean Platelet Volume 7.8; Platelet Count 264 k/uL (150-450); RBC 3.42 m/uL (4.30-5.90); RDW 14.2 % (11.5-15.5); WBC 3.8 k/uL (3.8-10.6)
[2022-09-03 18:11] LABS: Glucose,Whole Blood 83 mg/dL (70-110)
[2022-09-03] MEDS: SODIUM CHLORIDE 0.9% 1,000 ML IV SCH (18:25)
--- NOTE | 2022-09-03 22:01 | P.PN ---
Subjective Progress Note Date: 09/01/22 Principal diagnosis: Bacteremia Patient is a 76-year-old -Hond[place] male past medical history significant for liver failure status post liver transplant or redness of his medication presented to hospital generalized weakness did have a positive UA concerning for UTI patient subsequently did have a positive blood culture. Patient has been extubated 08/29/2022 On today's evaluation that is 09/01/2022 the patient remains to be afebrile, the patient is hemodynamically stable breathing comfortably on 2 L nasal cannula, the patient slightly more awake and alert today, denies any chest pain no worsening coverlets progression abdominal pain and no diarrhea Objective - Vital Signs Vital signs: Vital Signs Temp 98.4 F 09/01/22 12:00 Pulse 91 09/01/22 12:00 Resp 18 09/01/22 12:00 BP 138/55 09/01/22 12:00 Pulse Ox 96 09/01/22 12:00 FiO2 2 09/01/22 07:14 Intake & Output 08/31/22 09/01/22 09/01/22 18:59 06:59 18:59 Intake Total 1473 939 250 Output Total 1725 1825 575 Balance -252 -886 -325 Weight 104.1 kg Intake: IV 783 609 250 Ertapenem 0.5 gm In 50 Sodium Chloride 0.9% 50 ml @ 100 mls/hr IVPB Q24H [facility] Rx#:[id number] Linezolid 600 mg In 300 Dextrose/Water 1 300ml. bag @ 150 mls/hr IVPB Q12HR@0000,1200 [facility] Rx#: [id number] Pressure bag 33 9 Sodium Chloride 0.9% 1, 400 600 250 000 ml @ 50 mls/hr IV . Q20H [facility] Rx#:[id number] Tube Feeding 630 300 Other 60 30 Output: Urine 1725 1525 575 Stool 300 Other: Voiding Method Indwelling Catheter Indwelling Catheter ABP, PAP, CO, CI - Last Documented Arterial Blood Pressure 151/46 - Exam GENERAL DESCRIPTION: An elderly male lying in bed in no distress RESPIRATORY SYSTEM: Unlabored breathing , decreased breath sounds at bases HEART: S1 S2 regular rate and rhythm , ABDOMEN: Soft , no tenderness EXTREMITIES: No edema feet - Labs CBC & Chem 7: 09/03/22 06:10 09/03/22 06:10 Labs: Abnormal Lab Results - Last 24 Hours (Table) 08/31/22 09/01/22 Range/Units 18:09 11:55 POC Glucose (mg/dL) 128 H 133 H (70-110) mg/dL Microbiology - Last 24 Hours (Table) 08/26/22 04:11 Blood Culture - Final Blood No Growth after 144 hours 08/25/22 10:25 Blood Culture - Final Blood No Growth after 144 hours Assessment and Plan (1) Bacteremia Current Visit: Yes Status: Acute Code(s): R78.81 - BACTEREMIA SNOMED Code(s): 5975975 (2) UTI (urinary tract infection) Current Visit: No Status: Acute Code(s): N39.0 - URINARY TRACT INFECTION, SITE NOT SPECIFIED SNOMED Code(s): 03791636 Plan: 1patient presented to hospital with abdominal pain and nausea and vomiting in this patient did have a positive UA CT abdominal pelvis did not show any acute abnormality abdominal soft medical examination patient did have a positive UA concerning for symptomatic urinary tract infection likely from enteric gram- negative pathogen, patient subsequently did have slight worsening of his respiratory status and concern for possible aspiration pneumonitis. 2 Patient urine was Proteus which was a sensitive pathogen however blood culture showing ESBL proteus Patient is currently being treated with Invanz to continue and monitor clinical course closely 3sputum culture positive for MRSA patient with a borderline kidney function high risk of nephrotoxicity from vancomycin , patient seemed to have show some clinical improvement continue with the Zyvox Time with Patient: Less than 30
--- NOTE | 2022-09-03 22:04 | P.PN ---
Subjective Progress Note Date: 09/03/22 Principal diagnosis: Bacteremia Patient is a 76-year-old -[place]ian male past medical history significant for liver failure status post liver transplant or redness of his medication presented to hospital generalized weakness did have a positive UA concerning for UTI patient subsequently did have a positive blood culture. Patient has been extubated 08/29/2022 On today's evaluation that is 09/03/2022, the patient denies having any fever or chills, the patient is currently breathing comfortably room air patient is hemodynamically stable not requiring pressor support denies any chest pain or shortness with occasional cough no abdominal pain and no worsening diarrhea rep orted by the nursing staff Objective - Vital Signs Vital signs: Vital Signs Temp 98.2 F 09/03/22 08:00 Pulse 90 09/03/22 15:22 Resp 16 09/03/22 15:00 BP 128/54 09/03/22 15:00 Pulse Ox 98 09/03/22 15:15 FiO2 2 09/03/22 00:00 Intake & Output 09/02/22 09/03/22 09/03/22 18:59 06:59 18:59 Intake Total 725 620 415 Output Total 1380 800 880 Balance -655 -180 -465 Weight 104.5 kg Intake: IV 680 620 375 Ertapenem 0.5 gm In 50 50 Sodium Chloride 0.9% 50 ml @ 100 mls/hr IVPB Q24H [facility] Rx#:[id number] Linezolid 600 mg In 300 300 Dextrose/Water 1 300ml. bag @ 150 mls/hr IVPB Q12HR@0000,1200 [facility] Rx#: [id number] Sodium Chloride 0.9% 1, 230 320 325 000 ml @ 50 mls/hr IV . Q20H [facility] Rx#:[id number] Tube Feeding 15 40 Other 30 Output: Urine 1350 800 880 Stool 30 Other: Voiding Method Indwelling Catheter Indwelling Catheter Indwelling Catheter # Voids 85 ABP, PAP, CO, CI - Last Documented Arterial Blood Pressure 151/46 - Exam GENERAL DESCRIPTION: An elderly male lying in bed in no distress RESPIRATORY SYSTEM: Unlabored breathing , decreased breath sounds at bases HEART: S1 S2 regular rate and rhythm , ABDOMEN: Soft , no tenderness EXTREMITIES: No edema feet - Labs CBC & Chem 7: 09/03/22 06:10 09/03/22 06:10 Assessment and Plan (1) Bacteremia Current Visit: Yes Status: Acute Code(s): R78.81 - BACTEREMIA SNOMED Code(s): 0972909 (2) UTI (urinary tract infection) Current Visit: No Status: Acute Code(s): N39.0 - URINARY TRACT INFECTION, SITE NOT SPECIFIED SNOMED Code(s): 31973511 Plan: 1patient presented to hospital with abdominal pain and nausea and vomiting in this patient did have a positive UA CT abdominal pelvis did not show any acute abnormality abdominal soft medical examination patient did have a positive UA concerning for symptomatic urinary tract infection likely from enteric gram- negative pathogen, patient subsequently did have slight worsening of his respiratory status and concern for possible aspiration pneumonitis. 2 Patient urine culture with Proteus which is a sensitive pathogen however blood culture showing ESBL proteus , Patient has shown clinical improvement and will continue with Invanz to finish his 2-week course of therapy 3patient with MRSA pneumonia in this patient seem to have shown some clinical improvement respiratory status has improved ,Pt will continue with Zyvox to finish his 2-week course of therapy. Time with Patient: Less than 30
[2022-09-03 23:22] LABS: Glucose,Whole Blood 83 mg/dL (70-110)
[2022-09-03] MEDS: LATANOPROST 0.005% OPHTH DROPS 2.5 ML BTL BOTH EYES SCH (23:30)
[2022-09-03] MEDS: NOREPINEPHRINE 32 MG in SODIUM CHLORIDE 0.9% 218 ML IV SCH (23:41)
--- NOTE | 2022-09-04 02:40 | PN ---
PROGRESS NOTE DATE OF SERVICE: 09/03/2022 SUBJECTIVE: This is a 76-year-old gentleman who was admitted with multiple medical problems including septic shock secondary to Proteus mirabilis UTI, also had hypotension. Patient also had acute infarct of the left parietal region. The patient was closely monitored in ICU at this time. The patient had most recent chest x-ray which I reviewed personally, showed cardiomegaly. PAST MEDICAL HISTORY: Reviewed. REVIEW OF SYSTEMS: A 14-point review is negative except as mentioned earlier. CURRENT MEDICATIONS: Reviewed include Hexadrol, doses and rest of medication noted. FAMILY HISTORY: Reviewed. SOCIAL HISTORY: Reviewed. PHYSICAL EXAMINATION: VITAL SIGNS: Pulse is 78, blood pressure 110/52, and respirations 16. HEENT: Conjunctivae normal. NECK: No jugular venous distention. CARDIOVASCULAR: S1, S2 muffled. RESPIRATIONS: Breath sounds diminished at the bases. A few scattered rhonchi. ABDOMEN: Soft and nontender. LEGS: No edema. NERVOUS SYSTEM: No focal deficit. Significant weakness of the right side present. LABS: Reviewed. Chest x-ray reviewed personally. ASSESSMENT: 1. Acute septic shock and severe sepsis secondary to Proteus mirabilis urinary tract infection present on admission. 2. Acute ischemic infarct, left parietal areas. 3. Acute hypoxic respiratory failure. 4. Chronic kidney disease, stage 2. 5. Multiple medical issues. 6. MRSA from sputum. RECOMMENDATIONS: Recommended to continue current medications and symptomatic treatment. Repeat labs. Monitor blood pressure closely. Continue the rest of antibiotics as mentioned earlier. The cultures are showing MRSA and Proteus. The sputum showed MRSA and blood culture showed Proteus. MMODL / IJN: [id number] /
[2022-09-04 06:07] LABS: Glucose,Whole Blood 92 mg/dL (70-110)
[2022-09-04] MEDS: IPRATROPIUM-ALBUTEROL 3 ML NEB INHALATION SCH ×4 (07:16→19:10)
[2022-09-04 07:22] LABS: HCT 25.4 % (39.0-53.0); HGB 8.2 gm/dL (13.0-17.5); Hypochromasia Slight; MCH 27.1 pg (25.0-35.0); MCHC 32.2 g/dL (31.0-37.0); MCV 84.2 fL (80.0-100.0); Mean Platelet Volume 9.5; RBC 3.02 m/uL (4.30-5.90); RDW 14.5 % (11.5-15.5)
[2022-09-04 07:23] LABS: Platelet Count 111 k/uL (150-450)
[2022-09-04 07:34] LABS: African American GFR (CKD) >90 (>60 ml/min/1.73 sqM); Anion Gap 5 mmol/L; Blood Urea Nitrogen 25 mg/dL (9-20); Calcium 7.7 mg/dL (8.4-10.2); Carbon Dioxide 23 mmol/L (22-30); Chloride 105 mmol/L (98-107); Glucose 90 mg/dL (74-99); Non-African American GFR(CKD) 83 (>60 ml/min/1.73 sqM); Sodium 133 mmol/L (137-145)
[2022-09-04] MEDS: INSULIN ASPART (NovoLOG) 100 UNIT/ML VIAL SQ SCH ×4 (07:41→23:19)
[2022-09-04 07:48] LABS: Band Neutrophils % 2 %; Eosinophils # (M) 0.03 k/uL (0-0.7); Lymphocytes # (M) 0.99 k/uL (1.0-4.8); Monocytes # (M) 0.12 k/uL (0-1.0); Neutrophils % (M) 60 %; Nucleated Red Blood Cells 0 /100 WBC (0-0); Polychromasia Present; Total Cells Counted 100
[2022-09-04] MEDS: HEPARIN SODIUM,PORCINE/PF 5,000 UNIT/0.5 ML SYRINGE SQ SCH ×2 (09:15→20:38)
[2022-09-04] MEDS: TACROLIMUS 0.5 MG CAP PO SCH ×2 (09:15→20:38)
[2022-09-04] MEDS: NYSTATIN 100,000 UNIT/ML SUSP 500,000 UNIT/5 ML CUP PO SCH ×4 (09:15→20:37)
[2022-09-04] MEDS: ASPIRIN 81 MG PO SCH (09:16)
[2022-09-04] MEDS: FAMOTIDINE 20 MG TAB PO SCH ×2 (09:16→20:37)
--- NOTE | 2022-09-04 09:37 | P.PN ---
Subjective Progress Note Date: 09/04/22 Principal diagnosis: Dysphagia Patient doing well today. Tolerating tube feeds. Denies pain. Tube feeds are at 40 mL currently. Objective - Vital Signs Vital signs: Vital Signs Temp 98.5 F 09/04/22 08:00 Pulse 84 09/04/22 08:00 Resp 15 09/04/22 08:00 BP 133/54 09/04/22 08:00 Pulse Ox 94 L 09/04/22 08:00 FiO2 2 09/03/22 00:00 Intake & Output 09/03/22 09/04/22 09/04/22 19:59 06:59 18:59 Intake Total 220 Output Total 310 Balance -90 Weight Intake: IV 90 Ertapenem 0.5 gm In Sodium Chloride 0.9% 50 ml @ 100 mls/hr IVPB Q24H [facility] Rx#:[id number] Linezolid 600 mg In Dextrose/Water 1 300ml. bag @ 150 mls/hr IVPB Q12HR@0000,1200 [facility] Rx#: [id number] Sodium Chloride 0.9% 1, 90 000 ml @ 50 mls/hr IV . Q20H [facility] Rx#:[id number] Oral 0 Tube Feeding 130 Other Output: Urine 310 Stool Other: Voiding Method ABP, PAP, CO, CI - Last Documented Arterial Blood Pressure 151/46 - Exam Abdomen: Soft, nondistended, nontender, PEG tube in place - Labs CBC & Chem 7: 09/04/22 07:10 09/04/22 07:10 Labs: Abnormal Lab Results - Last 24 Hours (Table) 09/03/22 09/03/22 09/04/22 Range/Units 06:10 06:10 07:10 WBC 3.0 L (3.8-10.6) k/uL RBC 3.42 L 3.02 L (4.30-5.90) m/uL Hgb 9.3 L 8.2 L (13.0-17.5) gm/dL Hct 29.9 L 25.4 L (39.0-53.0) % Plt Count 111 L D (150-450) k/uL Lymphocytes # (Manual) 0.99 L (1.0-4.8) k/uL Sodium (137-145) mmol/L BUN 27 H (9-20) mg/dL Calcium 7.9 L (8.4-10.2) mg/dL 09/04/22 Range/Units 07:10 WBC (3.8-10.6) k/uL RBC (4.30-5.90) m/uL Hgb (13.0-17.5) gm/dL Hct (39.0-53.0) % Plt Count (150-450) k/uL Lymphocytes # (Manual) (1.0-4.8) k/uL Sodium 133 L (137-145) mmol/L BUN 25 H (9-20) mg/dL Calcium 7.7 L (8.4-10.2) mg/dL Microbiology - Last 24 Hours (Table) 09/03/22 11:20 Catheter Tip Culture - Preliminary Catheter Tip Assessment and Plan (1) Dysphagia Narrative/Plan: Patient doing well today. Continue advancing tube feeds until goal was reached. Will follow. Current Visit: Yes Status: Acute Code(s): R13.10 - DYSPHAGIA, UNSPECIFIED SNOMED Code(s): 78281114
--- NOTE | 2022-09-04 09:53 | P.PN ---
Subjective Progress Note Date: 09/04/22 Principal diagnosis: Secondary, impending respiratory failure. Sepsis. Pulmonary consult dated 08/24/2022. 76-year-old black male, with a previous history of liver transplant, at [facility], and CVA, with right-sided weakness, who apparently presented to the emergency department on August 22, complaining of profound weakness, nausea, and vomiting. The patient was admitted to the floor, and I was asked to transfer the patient to the intensive care unit, as the patient was thought to have sepsis, with hypotension. 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 He apparently was at [employer], shopping, and developed sudden onset of abdominal pain nausea and vomiting. He also complaining of weakness in his lower extremities. Seen in the emergency room, and admitted to the hospital. Currently, the patient's getting saline at 130 mL an hour, and norepinephrine at 0.04 mcg/kg/m. A blood gas done on 6 L shows a pO2 of 86, pCO2 27, and a pH is 7.36. This blood gases consistent with mild metabolic acidosis. His initial blood gas was consistent with non-anion gap metabolic acidosis. His lactate initially was 4.8. He's currently on Zosyn. A computed tomography scan of the brain showed an acute infarct of the left parietal lobe. He is being seen by neurology. White count 4.1, hemoglobin 14, hematocrit 46.5, and platelet count 95,000. Sodium 138, potassium 4.3, chlorides 113, CO2 15, anion gap 10, BUN 26, creatinine 2.53. Lactic acid is 2.2. AST is 267 and ALT is 68. Troponin was 0.491. Pro-calcitonin level is 30.4. UA is consistent with a possible urinary tract infection. Testing for coronavirus was negative. Chest x-ray, after central line placement, by me, showed no complication. Progress note dated 08/25/2022. 76-year-old black female seen yesterday in consultation. When I saw him today, his mental status had declined. He was on 4 L of oxygen. He was also receiving norepinephrine at 0.06 mcg/kg/m, and was on a sodium bicarbonate drip, with 3 ampules of sodium bicarbonate and D5W at 100 mL an hour. The patient's urine showed gram-negative bacilli in the blood was positive for Proteus mirabilis. He was on Zosyn. He was to go for a CAT scan of the brain. Unfortunately, I felt that his situation was too unstable to send him down for a CAT scan, so he was electively intubated with a #8 endotracheal tube, using a standard laryngoscope, and #3 Alpesh blade. In addition, a right radial art line was placed. I did speak to the neurologist. The patient's post intubation chest x- ray showed diffuse bilateral infiltrates. White count was 5, hemoglobin 12.6, hematocrit 41.1, and platelet count was 95,000. Sodium 140, potassium 3.9, chlorides 109, CO2 21, anion gap 10, BUN 27, and creatinine 2.78. The patient's AST was 284 in the ALT was 81. The rest of the labs were reviewed. Progress note dated 08/26/2022. 76-year-old black male seen in consultation 2 days ago. The patient was admitted with a diagnosis of mental status changes, and probable sepsis. Unfortunately, the patient was electively intubated, yesterday, August 25, and at the same time, had a right radial arterial line placed. Currently, he remains on the mechanical ventilator. He is on volume assist control, rate 20, tidal volume 450, FiO2 55%, apply. Blood gases show a PaO2 of 137, pCO2 43, and a pH of 7.29. The FiO2 can be reduced. The patient's getting norepinephrine at 16 mcg/m, propofol at 30 mcg/kg/m, and dextrose and saline, at 75 mL an hour. The patient is getting Zosyn, for Proteus mirabilis UTI and bacteremia. The chest x-ray shows an endotracheal tube which is a bit high in the trachea, and can be pushed down 1-1/2 cm. The repeat brain CT shows an evolving left frontal parietal ischemic stroke. No hemorrhagic conversion. White count 12.6, hemoglobin 13.1, hematocrit 41.9, platelet count 93,000. Sodium 142, potassium 4.4, chlorides 110, CO2 19, anion gap 13, BUN 31, creatinine 2.68. AST is 147 with an ALT of 69. Chest x-ray in addition shows some bilateral mostly basilar scattered opacities. Progress note dated 08/27/2022. 76-year-old black male, seen again in the intensive care unit, room 250. He remains on the mechanical ventilator. His mental status is poor, and is being followed by neurology. He is currently on volume assist control, rate 20, tidal volume 450, FiO2 40%, to be dropped to 30%, and PEEP of 5. Blood gases on 40% show pO2 144, pCO2 44, and a pH of 7.33. This gases consistent with a very mild metabolic acidosis. The patient is currently on dextrose and saline at 75 mL an hour, vital high protein at 40 mL now with a goal of 58, and Zosyn, IV, for Proteus bacteremia and urinary tract sections. The patient's propofol is currently on hold because he is being evaluated neurologically by her n eurologist. The saline IV will be switched to D5 W at 75 mL an hour. White count is 4.6, hemoglobin 10.5, hematocrit 34, and platelet count is 49,000. Sodium 145, potassium 3.9, chlorides 1:15, CO2 23, BUN 42, creatinine 2.56. Albumin is 2.3. Chest x-ray shows left lower lobe infiltrate. Progress note dated 08/28/2022. 76-year-old black male seen again in the intensive care unit, room 250. He remains on the mechanical ventilator. His ventilator settings include the volume assist control, rate 20, tidal volume 450, FiO2 30%, and PEEP of 5. Arterial blood gases show pO2 of 91, pCO2 39, pH is 7.44. The patient's getting vital high protein at goal, which is 58 mL an hour, saline at 20 mL an hour, norepinephrine at 0.04 mcg/kg/m, D5W at 75 mL, and propofol at 35 mcg/kg/m. The patient continues on vancomycin and Zosyn. He's being followed by neurology. He did have a daily interruption of sedation yesterday. Laboratory data includes a white count 3.9, hemoglobin 9.5, hematocrit 30.3, and a platelet count 53,000. Sodium 143, potassium 3.3, chlorides 112, CO2 24, BUN 49, creat inine 2.29. Albumin is 2.2. Sputum is showing presumptive staph. The patient is given a dose of vancomycin pending the final identification. The blood cultures were positive for Proteus mirabilis, as well as the urine sampling. The patient's chest x-ray shows an infiltrate primarily in the left lower lobe. Progress note dated 09/01/2022. The patient was intubated on August 25, and extubated on August 29 I saw him last on August 28. Please see the note above. He's on 2 L of oxygen. An NG tube is in place. He is getting saline at 50 mL an hour. A PEG tube was to be placed today by one of the surgeons. He had Proteus in his blood and urine, and methicillin-resistant staph aureus in his sputum. The central line needs to be removed, in the midline place. The tip should be cultured. He is currently on Zosyn and ertapenem. Other than a glucose of 104, no blood testing today. The patient's chest x-ray is stable. Progress note dated 09/02/2022. 76-year-old white male seen again in room 250. He scheduled for a PEG tube placement today. The patient was intubated on August 25, for airway protection, and extubated on August 29. I saw him last on August 28. He's get an NG tube in place. He's on room air. Saturations are 97%. He's getting saline at 50 mL an hour. He is to have a PICC line placed today and the PEG tube. He is currently on Zyvox and ertapenem. Labs today include a white count 4.4, hemoglobin 9, hematocrit 28.2, and a normal platelet count. Electrolytes look pretty good other than the BUN was 29. Calcium is 7.8. Cultures show Proteus mirabilis in the blood from August 23, and methicillin-resistant staph aureus in the sputum on August 25. Chest x-ray shows some patchy bilateral infiltrates. Progress note dated 09/04/2022. 76-year-old black male again seen in room 250. He had an uneventful night according to the nurse. He's currently on room air. He is getting saline at 50 mL now which can be discontinued. He is getting vital AF, at 40 mL an hour, with a goal of 75. PEG tube was placed a couple days ago. The patient could be transferred out to the general medical floor with telemetry. The patient is being treated for both Proteus and methicillin-resistant staph aureus infections with ertapenem and Zyvox. White count 3, hemoglobin 8.2, hematocrit 25.4, and platelet count 111,000. Sodium 133, potassium 4, chlorides 105, CO2 23, anion gap 5, BUN 25, and creatinine 0.88. Chest x-ray from September 03 only shows evidence of cardiomegaly. Objective - Vital Signs Vital signs: Vital Signs Temp 98.5 F 09/04/22 08:00 Pulse 84 09/04/22 08:00 Resp 15 09/04/22 08:00 BP 133/54 09/04/22 08:00 Pulse Ox 94 L 09/04/22 08:00 FiO2 2 09/03/22 00:00 Intake & Output 09/03/22 09/04/22 09/04/22 19:59 06:59 18:59 Intake Total 220 Output Total 310 Balance -90 Weight Intake: IV 90 Ertapenem 0.5 gm In Sodium Chloride 0.9% 50 ml @ 100 mls/hr IVPB Q24H [facility] Rx#:[id number] Linezolid 600 mg In Dextrose/Water 1 300ml. bag @ 150 mls/hr IVPB Q12HR@0000,1200 [facility] Rx#: [id number] Sodium Chloride 0.9% 1, 90 000 ml @ 50 mls/hr IV . Q20H [facility] Rx#:[id number] Oral 0 Tube Feeding 130 Other Output: Urine 310 Stool Other: Voiding Method ABP, PAP, CO, CI - Last Documented Arterial Blood Pressure 151/46 - Exam Awake, lethargic, currently on room air. NG tube is been removed. HEENT examination is grossly unremarkable. Neck supple. Full range of motion. No adenopathy thyromegaly or neck vein distention. Cardiovascular examination reveals regular rhythm rate. S1-S2 normal. No S3 or S4. No discernible murmur noted. Heart rate is 84 bpm. Lungs reveal coarse bilateral breath sounds. No wheezes. No crackles. Satur ation is 94 %. Abdomen soft, without sounds. No masses or tenderness. Well-healed liver transplant scar. PEG tube noted. Extremities are intact. No cyanosis or clubbing. Trace edema. Chronic venous stasis changes noted. Skin is without rash or lesion. Neurologic examination is improved. - Labs CBC & Chem 7: 09/04/22 07:10 11/06/22 07:10 Labs: Abnormal Lab Results - Last 24 Hours (Table) 09/03/22 09/03/22 09/04/22 Range/Units 06:10 06:10 07:10 WBC 3.0 L (3.8-10.6) k/uL RBC 3.42 L 3.02 L (4.30-5.90) m/uL Hgb 9.3 L 8.2 L (13.0-17.5) gm/dL Hct 29.9 L 25.4 L (39.0-53.0) % Plt Count 111 L D (150-450) k/uL Lymphocytes # (Manual) 0.99 L (1.0-4.8) k/uL Sodium (137-145) mmol/L BUN 27 H (9-20) mg/dL Calcium 7.9 L (8.4-10.2) mg/dL 09/04/22 Range/Units 07:10 WBC (3.8-10.6) k/uL RBC (4.30-5.90) m/uL Hgb (13.0-17.5) gm/dL Hct (39.0-53.0) % Plt Count (150-450) k/uL Lymphocytes # (Manual) (1.0-4.8) k/uL Sodium 133 L (137-145) mmol/L BUN 25 H (9-20) mg/dL Calcium 7.7 L (8.4-10.2) mg/dL Microbiology - Last 24 Hours (Table) 09/03/22 11:20 Catheter Tip Culture - Preliminary Catheter Tip Assessment and Plan Assessment: Hypotension, secondary to gram-negative sepsis, with Proteus mirabilis ba cteremia and probable Proteus mirabilis urinary tract infection. Status post intubation and mechanical ventilation, 08/25/2022, as patient was unable to protect his airway, with successful extubation on August 29. Status post PEG tube placement, 09/02/2022. Left lower lobe pneumonia, sputum is showing MRSA. Acute ischemic infarct, left parietal lobe. History of liver transplantation, at the [facility]. Acute kidney injury. Lactic acidosis. History of hypertension. History of gastroesophageal reflux disease. History of BPH. History of hyperlipidemia. Plan: Plan dated 08/24/2022. The patient is currently being evaluated by neurology. Computed tomography scan of the brain suggests an acute infarct, involving the left parietal lobe. Apparently the patient and/or the patient's family would like the patient transferred to the [facility]. I'm not sure that we will be able to accomplish that. He is currently on 6 L of oxygen. He is on norepinephrine at 0.04 mcg/kg/m. Blood gases show a mild metabolic acidosis. He is currently on Zosyn. Cultures have been done. Labs, x-rays, and medications are reviewed. I placed a left subclavian triple-lumen catheter in the patient as he had limited IV access. Plan dated 08/25/2022. The patient was electively intubated and mechanically ventilated, so he could safely go down for another CAT scan. Because of the acute change of this mental status, we were concerned that the ischemic stroke worsened. The patient had a right radial art line in place. Yesterday, I placed a left subclavian triple- lumen catheter. The patient remains on a sodium bicarbonate drip, and norepinephrine, for supportive blood pressure. Oral medications were discontinued. The patient could be started on tube feeds. We will check a blood gas. Additional recommendations and suggestions are forthcoming. Plan dated 08/26/2022. The patient was intubated, for airway protection, yesterday, August 25. In addition, a right radial arterial line was placed. The patient went down for a computed tomography scan, and it showed that the left parietal frontal infarct, has extended. Currently, the patient's on Zosyn for Proteus mirabilis UTI and Proteus mirabilis bacteremia. The patient's on 16 mcg/m norepinephrine. He is not receiving tube feeds, but they will be started today. The patient is currently sedated with propofol. FiO2 can be reduced. Prognosis is very poor. We will continue to follow make recommendations where appropriate. I asked the nurse to find out from the family, whether or not they want him transferred. Initially, they wanted him transferred to the [facility]. Plan dated 08/27/2022. The patient remains intubated, with poor neurologic status. He is being currently evaluated by neurology. Propofol is on hold. His IV switched him dextrose and saline at 75 mL an hour, complaining dextrose, because of hypernatremia and hyperchloremia. Labs, x-rays, and medications are all reviewed. The patient's overall prognosis is poor. He remains on Zosyn for Pr oteus bacteremia and Proteus urinary tract infection. We will continue to follow and make recommendations where appropriate. Plan dated 08/28/2022. The patient remains intubated. He did have a daily interruption of sedation yesterday. He was evaluated further by neurology. Currently, the patient's on propofol, and norepinephrine as mentioned above. He is getting tube feedings, at goal. The patient has evidence of both Proteus mirabilis bacteremia and Proteus mirabilis urinary tract infection. For that, the patient is on Zosyn. Sputum was positive for presumptive staph, and the patient was given a dose of vancomycin. Labs, x-rays, and medications are reviewed. We will continue to follow. The patient's most recent computed tomography scan showed evolution of his left frontal parietal ischemic CVA. Prognosis is guarded. Plan dated 09/01/2022. The patient is doing much better than when I saw him last, on August 28. At that time he was still intubated. He was extubated the following day in August 29. He is on 2 L. He got an NG tube in place. He is getting saline at 50 mL an hour. The patient is currently on ertapenem and Zosyn. The patient will have a PEG tube placed today. In addition, he needs a midline place, and the central line needs be discontinued with the tip cultured. Labs, x-rays, medications are all reviewed. Prognosis is certainly guarded. Plan dated 09/02/2022. The patient is going to have a PEG tube placed today as well as a PICC line. The central line from the left subclavian site will be removed and the tip cultured. The patient's on Zyvox and ertapenem as per infectious diseases. He's on room air. Saturations are excellent. The patient is getting saline at 50 mL an hour. Additional recommendations and suggestions are forthcoming. Labs, x-rays, and medications are all reviewed. Plan dated 09/04/2022. The patient appears to be stable. He remains on ertapenem and Zyvox. The patient's on room air. NG tube is been removed. The PEG tube was placed on September 02. He is on tube feedings. We'll DC the saline IV. Labs, x-rays, and medications are all reviewed. The patient could be transferred to the general medical floor, without telemetry. Discharge planning underway. Time with Patient: Less than 30
[2022-09-04] MEDS: ERTAPENEM 1 GM in SODIUM CHLORIDE 0.9% 50 ML IVPB SCH (11:50)
[2022-09-04 11:57] LABS: Glucose,Whole Blood 103 mg/dL (70-110)
[2022-09-04] MEDS: LINEZOLID 600 MG in DEXTROSE/WATER 1 300ML.BAG IVPB SCH ×2 (11:57→23:20)
--- NOTE | 2022-09-04 16:00 | P.PN ---
Subjective Progress Note Date: 09/04/22 Follow-up for acute kidney injury. Urine output of 3000 ML's in the last 24 hours. Objective - Vital Signs Vital signs: Vital Signs Temp 98.5 F 09/04/22 08:00 Pulse 74 09/04/22 15:16 Resp 15 09/04/22 08:00 BP 133/54 09/04/22 08:00 Pulse Ox 97 09/04/22 15:07 FiO2 2 09/03/22 00:00 Intake & Output 09/03/22 09/04/22 09/04/22 19:59 06:59 18:59 Intake Total 570 Output Total 1510 Balance -940 Weight Intake: IV 440 Ertapenem 0.5 gm In Sodium Chloride 0.9% 50 ml @ 100 mls/hr IVPB Q24H [facility] Rx#:[id number] Ertapenem 1 gm In Sodium 50 Chloride 0.9% 50 ml @ 100 mls/hr IVPB Q24H [facility] Rx# :[id number] Linezolid 600 mg In 300 Dextrose/Water 1 300ml. bag @ 150 mls/hr IVPB Q12HR@0000,1200 [facility] Rx#: [id number] Sodium Chloride 0.9% 1, 90 000 ml @ 50 mls/hr IV . Q20H [facility] Rx#:[id number] Oral 0 Tube Feeding 130 Other Output: Urine 660 Stool 850 Other: Voiding Method Indwelling Catheter ABP, PAP, CO, CI - Last Documented Arterial Blood Pressure 151/46 - Exam No acute distress Oral mucosa appears dry S1-S2 heard Lungs clear edema - Labs CBC & Chem 7: 09/04/22 07:10 09/04/22 07:10 Labs: Abnormal Lab Results - Last 24 Hours (Table) 09/03/22 09/03/22 09/04/22 Range/Units 06:10 06:10 07:10 WBC 3.0 L (3.8-10.6) k/uL RBC 3.42 L 3.02 L (4.30-5.90) m/uL Hgb 9.3 L 8.2 L (13.0-17.5) gm/dL Hct 29.9 L 25.4 L (39.0-53.0) % Plt Count 111 L D (150-450) k/uL Lymphocytes # (Manual) 0.99 L (1.0-4.8) k/uL Sodium (137-145) mmol/L BUN 27 H (9-20) mg/dL Calcium 7.9 L (8.4-10.2) mg/dL 09/04/22 Range/Units 07:10 WBC (3.8-10.6) k/uL RBC (4.30-5.90) m/uL Hgb (13.0-17.5) gm/dL Hct (39.0-53.0) % Plt Count (150-450) k/uL Lymphocytes # (Manual) (1.0-4.8) k/uL Sodium 133 L (137-145) mmol/L BUN 25 H (9-20) mg/dL Calcium 7.7 L (8.4-10.2) mg/dL Microbiology - Last 24 Hours (Table) 09/03/22 11:20 Catheter Tip Culture - Preliminary Catheter Tip Assessment and Plan Assessment: #1 acute kidney injury secondary to hemodynamic ATN. #2 chronic kidney disease stage III A secondary to nephrosclerosis with a baseline creatinine of 1.2 MG per DL. #3 CVA status post PEG tube placement #4 complicated UTI. #5 liver disease status post liver transplant on Prograf. #6 volume overload with edema #7 hypervolemic hyponatremia Plan: #1 renal functions better than baseline. #2 add Lasix 20 mg IV twice a day #3 avoid nephrotoxic agents and hypotensive episodes.
[2022-09-04 17:27] LABS: Glucose,Whole Blood 99 mg/dL (70-110)
[2022-09-04] MEDS: FUROSEMIDE 10 MG/ML 2 ML VIAL IV SCH (17:41)
[2022-09-04] MEDS: LATANOPROST 0.005% OPHTH DROPS 2.5 ML BTL BOTH EYES SCH (20:38)
[2022-09-04 23:11] LABS: Glucose,Whole Blood 97 mg/dL (70-110)
[2022-09-05 04:42] LABS: Albumin 2.6 g/dL (3.5-5.0); Calcium 8.1 mg/dL (8.4-10.2); Total Bilirubin 0.4 mg/dL (0.2-1.3); Total Protein 5.6 g/dL (6.3-8.2)
[2022-09-05 05:01] LABS: Basophils % (A) 0 %; Eosinophils # (A) 0.1 k/uL (0-0.7); Eosinophils % (A) 2 %; HCT 31.2 % (39.0-53.0); HGB 9.6 gm/dL (13.0-17.5); Hypochromasia Slight; Lymphocytes # (A) 1.2 k/uL (1.0-4.8); Lymphocytes % (A) 29 %; MCH 26.5 pg (25.0-35.0); MCHC 30.8 g/dL (31.0-37.0); MCV 86.1 fL (80.0-100.0); Mean Platelet Volume 8.5; Monocytes # (A) 0.2 k/uL (0-1.0); Monocytes % (A) 5 %; Neutrophils # (A) 2.4 k/uL (1.3-7.7); Neutrophils % (A) 60 %; RBC 3.62 m/uL (4.30-5.90); RDW 14.4 % (11.5-15.5)
[2022-09-05 05:10] LABS: Platelet Count 288 k/uL (150-450)
[2022-09-05] MEDS: FUROSEMIDE 10 MG/ML 2 ML VIAL IV SCH ×2 (05:29→17:17)
[2022-09-05] MEDS: INSULIN ASPART (NovoLOG) 100 UNIT/ML VIAL SQ SCH ×3 (05:42→17:14)
--- NOTE | 2022-09-05 07:25 | PN ---
PROGRESS NOTE DATE OF SERVICE: 09/04/2022 DATE OF SERVICE: 09/04/2022. SUBJECTIVE: This 76-year-old gentleman was admitted with multiple medical issues. Also had hypotension, septic shock also. The patient has Proteus mirabilis from the culture, the patient is closely monitored in the ICU. The patient has significant weakness of the right side. The patient has a PEG tube feeding also. PAST MEDICAL HISTORY: Reviewed. REVIEW OF SYSTEMS: A 14-point review is negative except as mentioned earlier. CURRENT MEDICATIONS: Reviewed include Hexadrol, dose and rest of medications noted. PHYSICAL EXAMINATION: VITAL SIGNS: Pulse is 84, blood pressure 130/50, respirations 15. HEENT: Conjunctivae normal. NECK: No jugular venous distention. CARDIOVASCULAR: S1 and S2 muffled. RESPIRATIONS: Few scattered rhonchi. ABDOMEN: Soft. NERVOUS SYSTEM: ntd LABS: Reviewed. ASSESSMENT: 1. Acute septic shock, severe sepsis secondary to Proteus mirabilis urinary tract infection, present on admission. 2. Acute ischemic infarct, left parietal area. 3. Acute hypoxic respiratory failure. 4. Chronic kidney disease, stage 2. 5. Multiple medical issues. 6. MRSA from the sputum. RECOMMENDATIONS: Recommended to continue current management and broad-spectrum IV antibiotics. Closely follow with Infectious Disease. Monitor blood pressure closely. Patient is monitored in ICU at this time. See orders for further details. Repeat labs in the morning. PT/OT evaluation, consider possible ECF rehab eventually. MMODL / IJN: [id number] / MTDD
[2022-09-05] MEDS: IPRATROPIUM-ALBUTEROL 3 ML NEB INHALATION SCH ×4 (08:07→20:20)
--- NOTE | 2022-09-05 09:02 | P.PN ---
Subjective Patient is seen in follow for acute kidney injury. Renal function fairly stable. Nonoliguric. On IV Lasix. Receiving tube feeds. Vital signs are stable. General: Resting in bed. HEENT: No JVD. LUNGS: Breath sounds decreased. HEART: Regular rate and rhythm. ABDOMEN: Soft, no distention. PEG tube noted. EXTREMITITES: 1+ edema. Objective - Vital Signs Vital signs: Vital Signs Temp 98.3 F 09/04/22 20:00 Pulse 75 09/05/22 08:17 Resp 19 09/04/22 20:00 BP 97/45 09/05/22 02:00 Pulse Ox 95 09/04/22 20:00 FiO2 2 09/03/22 00:00 Intake & Output 09/04/22 09/05/22 09/05/22 18:59 06:59 18:59 Intake Total 940 1680 Output Total 1710 1875 Balance -770 -195 Weight 102 kg Intake: IV 440 Ertapenem 1 gm In Sodium 50 Chloride 0.9% 50 ml @ 100 mls/hr IVPB Q24H [facility] Rx# :[id number] Linezolid 600 mg In 300 Dextrose/Water 1 300ml. bag @ 150 mls/hr IVPB Q12HR@0000,1200 [facility] Rx#: [id number] Sodium Chloride 0.9% 1, 90 000 ml @ 50 mls/hr IV . Q20H [facility] Rx#:[id number] Intake, IV Titration 300 Amount Linezolid 600 mg In 300 Dextrose/Water 1 300ml. bag @ 150 mls/hr IVPB Q12HR@0000,1200 [facility] Rx#: [id number] Oral 0 0 Tube Feeding 500 1380 Output: Urine 860 1350 Stool 850 525 Other: Voiding Method Indwelling Catheter Indwelling Catheter ABP, PAP, CO, CI - Last Documented Arterial Blood Pressure 151/46 - Labs CBC & Chem 7: 09/05/22 03:24 09/05/22 03:24 Labs: Abnormal Lab Results - Last 24 Hours (Table) 09/05/22 09/05/22 Range/Units 03:24 03:24 RBC 3.62 L (4.30-5.90) m/uL Hgb 9.6 L (13.0-17.5) gm/dL Hct 31.2 L (39.0-53.0) % MCHC 30.8 L (31.0-37.0) g/dL Sodium 134 L (137-145) mmol/L BUN 28 H (9-20) mg/dL Calcium 8.1 L (8.4-10.2) mg/dL Total Protein 5.6 L (6.3-8.2) g/dL Albumin 2.6 L (3.5-5.0) g/dL Microbiology - Last 24 Hours (Table) 09/03/22 11:20 Catheter Tip Culture - Preliminary Catheter Tip Assessment and Plan Plan: Assessment: 1. Acute kidney injury secondary to ATN secondary to septic shock and contrast- induced acute kidney injury. Patient received IV contrast on 08/23/2022. Creatinine was 1.74 on admission and peaked at 2.78 -1.1 today. Nonoliguric. No hydronephrosis noted on CAT scan. 2. Chronic kidney disease stage IIIa with baseline creatinine in the range of 1.2-1.5 secondary to nephrosclerosis and long-term calcineurin inhibitor use. 3. 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 4. Metabolic acidosis secondary to acute kidney injury, lactic acidosis and IV fluids. Resolved. 5. 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 Neurology following. 6. Septic shock secondary to Proteus UTI and bacteremia on antibiotics. Off vasopressors. 7. Volume overload. Plan: Maintain IV Lasix. Increase dose of CellCept per home dose. Repeat Prograf level. Avoid nephrotoxins.
[2022-09-05] MEDS: NYSTATIN 100,000 UNIT/ML SUSP 500,000 UNIT/5 ML CUP PO SCH ×3 (09:41→23:55)
[2022-09-05] MEDS: ASPIRIN 81 MG PO SCH (09:41)
[2022-09-05] MEDS: HEPARIN SODIUM,PORCINE/PF 5,000 UNIT/0.5 ML SYRINGE SQ SCH ×2 (09:41→23:55)
[2022-09-05] MEDS: FAMOTIDINE 20 MG TAB PO SCH ×2 (09:41→23:55)
[2022-09-05] MEDS: TACROLIMUS 0.5 MG CAP PO SCH ×2 (09:42→23:56)
--- NOTE | 2022-09-05 11:03 | P.PN ---
Subjective Progress Note Date: 09/05/22 CHIEF COMPLAINT: CVA HISTORY OF PRESENT ILLNESS: Patient currently ICU and is scheduled to be transferred to regular medical floor today. He is status post PEG tube placement on 09/02/2022. Patient is tolerating tube feeds. Tube feeds are at goal at 75 mL per hour. He is having stools. No vomiting reported. Afebrile. WBC 4.0 Hgb 9.6 PHYSICAL EXAM: VITAL SIGNS: Reviewed. GENERAL: Well-developed in no acute distress. ABDOMEN: Soft. Nondistended. Nontender. PEG tube site clean dry and intact ASSESSMENT: 1. Dysphagia and severe protein calorie malnutrition status post PEG tube placement PLAN: -Continue tube feeds -Continue supportive care Physician Desk Interviewer note has been reviewed by physician. Signing provider agrees with the documented findings, assessment, and plan of care. I have personally seen and examined the patient, reviewed the DATA CENTER ENGINEER /PAs history, exam and MDM and agree with the assessment and plan as written. Based on total visit time, I have performed more than 50% of the visit. As above: Patient more alert. Tolerating tube feeds at goal. His bolster was loosened slightly. We'll sign off. Please call if needed. Objective - Vital Signs Vital signs: Vital Signs Temp 98.2 F 09/05/22 08:00 Pulse 75 09/05/22 08:17 Resp 19 09/05/22 08:00 BP 125/44 09/05/22 08:00 Pulse Ox 95 09/05/22 08:00 FiO2 2 09/03/22 00:00 Intake & Output 09/04/22 09/05/22 09/05/22 18:59 06:59 18:59 Intake Total 950 1680 225 Output Total 1712 1875 1150 Balance -760 -195 -668 Weight 102 kg 102 kg Intake: IV 450 Ertapenem 1 gm In Sodium 50 Chloride 0.9% 50 ml @ 100 mls/hr IVPB Q24H [facility] Rx# :[id number] Invasive Line 7 10 Linezolid 600 mg In 300 Dextrose/Water 1 300ml. bag @ 150 mls/hr IVPB Q12HR@0000,1200 [facility] Rx#: [id number] Sodium Chloride 0.9% 1, 90 000 ml @ 50 mls/hr IV . Q20H [facility] Rx#:[id number] Intake, IV Titration 300 Amount Linezolid 600 mg In 300 Dextrose/Water 1 300ml. bag @ 150 mls/hr IVPB Q12HR@0000,1200 [facility] Rx#: [id number] Oral 0 0 Tube Feeding 500 1380 225 Output: Urine 860 1350 350 Stool 850 525 800 Other: Voiding Method Indwelling Catheter Indwelling Catheter Indwelling Catheter ABP, PAP, CO, CI - Last Documented Arterial Blood Pressure 151/46 - Labs CBC & Chem 7: 09/05/22 03:24 09/05/22 03:24 Labs: Abnormal Lab Results - Last 24 Hours (Table) 09/05/22 09/05/22 Range/Units 03:24 03:24 RBC 3.62 L (4.30-5.90) m/uL Hgb 9.6 L (13.0-17.5) gm/dL Hct 31.2 L (39.0-53.0) % MCHC 30.8 L (31.0-37.0) g/dL Sodium 134 L (137-145) mmol/L BUN 28 H (9-20) mg/dL Calcium 8.1 L (8.4-10.2) mg/dL Total Protein 5.6 L (6.3-8.2) g/dL Albumin 2.6 L (3.5-5.0) g/dL Microbiology - Last 24 Hours (Table) 09/03/22 11:20 Catheter Tip Culture - Preliminary Catheter Tip
[2022-09-05 11:33] LABS: Glucose,Whole Blood 98 mg/dL (70-110)
[2022-09-05] MEDS: ERTAPENEM 1 GM in SODIUM CHLORIDE 0.9% 50 ML IVPB SCH (11:58)
--- NOTE | 2022-09-05 12:03 | P.PN ---
Subjective Progress Note Date: 09/05/22 Principal diagnosis: Gram-negative sepsis secondary to Proteus mirabilis with bacteremia 76-year-old black male, with a previous history of liver transplant, at [facility], and CVA, with right-sided weakness, who apparently presented to the emergency department on August 22, complaining of profound weakness, nausea, and vomiting. The patient was admitted to the floor, and I was asked to transfer the patient to the intensive care unit, as the patient was thought to have sepsis, with hypotension. 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 He apparently was at [employer], shopping, and developed sudden onset of abdominal pain nausea and vomiting. He also complaining of weakness in his lower extremities. Seen in the emergency room, and admitted to the hospital. Currently, the patient's getting saline at 130 mL an hour, and norepinephrine at 0.04 mcg/kg/m. A blood gas done on 6 L shows a pO2 of 86, pCO2 27, and a pH is 7.36. This blood gases consistent with mild metabolic acidosis. His initial blood gas was consistent with non-anion gap metabolic acidosis. His lactate initially was 4.8. He's currently on Zosyn. A computed tomography scan of the brain showed an acute infarct of the left parietal lobe. He is being seen by neurology. White count 4.1, hemoglobin 14, hematocrit 46.5, and platelet count 95,000. Sodium 138, potassium 4.3, chlorides 113, CO2 15, anion gap 10, BUN 26, creatinine 2.53. Lactic acid is 2.2. AST is 267 and ALT is 68. Troponin was 0.491. Pro-calcitonin level is 30.4. UA is consistent with a possible urinary tract infection. Testing for coronavirus was negative. Chest x-ray, after central line placement, by me, showed no complication. Progress note dated 09/04/2022.76-year-old black male again seen in room 250. He had an uneventful night according to the nurse. He's currently on room air. He is getting saline at 50 mL now which can be discontinued. He is getting vital AF, at 40 mL an hour, with a goal of 75. PEG tube was placed a couple days ago. The patient could be transferred out to the general medical floor with telemetry. The patient is being treated for both Proteus and methicillin- resistant staph aureus infections with ertapenem and Zyvox. White count 3, hemoglobin 8.2, hematocrit 25.4, and platelet count 111,000. Sodium 133, potassium 4, chlorides 105, CO2 23, anion gap 5, BUN 25, and creatinine 0.88. Chest x-ray from September 03 only shows evidence of cardiomegaly. Patient was reevaluated today on 09/05/2022, patient remains in the ICU as an overflow, his IV fluid to KVO, patient is hemodynamically stable, he is not requiring any pressors, patient is receiving enteral feeding via PEG tube. He is receiving vital AF at 75 mL per hour. Patient has MRSA in the sputum, and he has Proteus mirabilis bacteremia. He is on room air, does not seem to be in any distress, patient was extubated on 08/29/22. CBC is relatively normal electrolytes are normal renal profile is normal. Chest x-ray from 09/03 showed mostly cardiomegaly. Objective - Vital Signs Vital signs: Vital Signs Temp 97.3 F L 09/05/22 10:25 Pulse 80 09/05/22 10:25 Resp 16 09/05/22 10:25 BP 129/62 09/05/22 10:25 Pulse Ox 98 09/05/22 10:25 FiO2 2 09/03/22 00:00 Intake & Output 09/04/22 09/05/22 09/05/22 18:59 06:59 18:59 Intake Total 950 1680 225 Output Total 1710 1875 1150 Balance -022 -589 -001 Weight 102 kg 102 kg Intake: IV 450 Ertapenem 1 gm In Sodium 50 Chloride 0.9% 50 ml @ 100 mls/hr IVPB Q24H [facility] Rx# :[id number] Invasive Line 7 10 Linezolid 600 mg In 300 Dextrose/Water 1 300ml. bag @ 150 mls/hr IVPB Q12HR@0000,1200 [facility] Rx#: [id number] Sodium Chloride 0.9% 1, 90 000 ml @ 50 mls/hr IV . Q20H [facility] Rx#:[id number] Intake, IV Titration 300 Amount Linezolid 600 mg In 300 Dextrose/Water 1 300ml. bag @ 150 mls/hr IVPB Q12HR@0000,1200 [facility] Rx#: [id number] Oral 0 0 Tube Feeding 500 1380 225 Output: Urine 860 1350 350 Stool 850 525 800 Other: Voiding Method Indwelling Catheter Indwelling Catheter Indwelling Catheter ABP, PAP, CO, CI - Last Documented Arterial Blood Pressure 151/46 - Exam Physical Exam: Revealed a 76-year-old male in no distress on room air. Slightly lethargic. Head: Atraumatic, normocephalic. HEENT:[Neck is supple.] [No neck masses.] [No thyromegaly.] [No JVD.] Chest: [Course of breath sounds at the bases no rhonchi and no wheezes Cardiac Exam: [Normal S1 and S2, no S3 gallop, no murmur.] Abdomen: [Soft, nontender, no megaly, no rebound, no guarding, normal bowel sounds.] Extremities: [No clubbing, trace of bipedal edema and chronic venous stasis changes., no cyanosis.] Neurological Exam: Lethargic, but arousable, follows simple instructions, rather bit slow. Musculoskeletal: No deformities noted limitation in range of motion. Skin: No rashes. - Labs CBC & Chem 7: 09/05/22 03:24 09/05/22 03:24 Labs: Abnormal Lab Results - Last 24 Hours (Table) 09/05/22 09/05/22 Range/Units 03:24 03:24 RBC 3.62 L (4.30-5.90) m/uL Hgb 9.6 L (13.0-17.5) gm/dL Hct 31.2 L (39.0-53.0) % MCHC 30.8 L (31.0-37.0) g/dL Sodium 134 L (137-145) mmol/L BUN 28 H (9-20) mg/dL Calcium 8.1 L (8.4-10.2) mg/dL Total Protein 5.6 L (6.3-8.2) g/dL Albumin 2.6 L (3.5-5.0) g/dL Microbiology - Last 24 Hours (Table) 09/03/22 11:20 Catheter Tip Culture - Preliminary Catheter Tip Assessment and Plan Assessment: Impression: Gram-negative sepsis with gram-negative bacteremia secondary to Proteus mirabilis. Status post intubation and mechanical ventilation, extubated on 08/29 uneventfu lly. Left lower lobe pneumonia, possibly MRSA related since the sputum is positive for MRSA. Proteus mirabilis bacteremia History of liver transplantation Acute kidney injury Benign essential hypertension Dyslipidemia Acute left parietal ischemic infarct Status post PEG tube placement on 08/2022. Recommendation: Continue antibiotics. As per ID on the case, patient is on ertapenem and Zyvox. Continue nutritional support Transfer patient out of the ICU once a bed is available Continue DVT prophylaxis and GI prophylaxis Will follow-up Time with Patient: Less than 30 (1111)
[2022-09-05] MEDS: LINEZOLID 600 MG in DEXTROSE/WATER 1 300ML.BAG IVPB SCH (14:20)
--- NOTE | 2022-09-05 14:29 | P.PN ---
Subjective Progress Note Date: 09/05/22 This is a 76-year-old male who was recently admitted with multiple medical issues including sepsis with septic shock and acute CVA and is being closely monitored. Patient is maintained in the ICU and is a downgrade waiting a bed on [facility]. Patient is maintained on tube feeds and tolerating and recommend to continue with aspiration precautions with head of the bed elevated 30-45 at all times and monitoring closely for residuals. Multiple medical consultations following including infectious disease and patient is maintained on IV antibiotics. Patient is afebrile and is talking although delayed but appears to be alert and oriented and understanding. Patient denies any chest pain or shortness of breath. Patient reports no pain at this time. Recommend PT/OT therapy daily and working on possible ECF. Review of systems: unable to completely obtain as patient is slow to respond All medications have been reviewed Active Medications Albuterol/Ipratropium (Ipratropium-Albuterol 3 Ml Neb) 3 ml INHALATION RT-QID [facility] Last Admin: 09/05/22 11:15 Dose: Not Given Aspirin (Aspirin 81 Mg) 81 mg PO DAILY [facility] Last Admin: 09/05/22 09:41 Dose: 81 mg Dexamethasone (Dexamethasone 0.5 Mg Tab) 1 mg PO DAILY [facility] Stop: 09/10/22 09:01 Last Admin: 09/05/22 09:42 Dose: 1 mg Dexamethasone (Dexamethasone 0.5 Mg Tab) 0.5 mg PO DAILY [facility] Famotidine (Famotidine 20 Mg Tab) 20 mg PO BID [facility] Last Admin: 09/05/22 09:41 Dose: 20 mg Furosemide (Furosemide 10 Mg/Ml 2 Ml Vial) 20 mg IV Q12HR@0600,1800 [facility] Last Admin: 09/05/22 05:29 Dose: 20 mg Heparin Sodium (Porcine) (Heparin Sodium,Porcine/Pf 5,000 Unit/0.5 Ml Syringe) 5,000 unit SQ Q12HR [facility] Last Admin: 09/05/22 09:41 Dose: 5,000 unit Linezolid 600 mg/ IV Solution 300 mls @ 150 mls/hr IVPB Q12HR@0000,1200 [facility]; Protocol Last Admin: 09/04/22 23:20 Dose: 150 mls/hr Ertapenem 1 gm/ Sodium (Chloride) 50 mls @ 100 mls/hr IVPB Q24H [facility] Last Admin: 09/05/22 11:58 Dose: 100 mls/hr Insulin Aspart (Insulin Aspart (Novolog) 100 Unit/Ml Vial) 0 unit SQ Q6H [facility]; Protocol Last Admin: 09/05/22 11:58 Dose: Not Given Latanoprost (Latanoprost 0.005% Ophth Drops 2.5 Ml Btl) 1 drops BOTH EYES HS [facility] Last Admin: 09/04/22 20:38 Dose: 1 drops Miscellaneous Information (Potassium Replacement Protocol 1 Each Misc) 1 each MISCELLANE DAILY PRN; Protocol PRN Reason: Per Protocol Miscellaneous Information (Potassium Replacement Protocol 1 Each Misc) 1 each MISCELLANE DAILY PRN; Protocol PRN Reason: Per Protocol Mycophenolate Mofetil (Mycophenolate Mofetil 500 Mg Tab) 1,000 mg PO BID [facility] Last Admin: 09/05/22 09:42 Dose: 1,000 mg Naloxone HCl (Naloxone 0.4 Mg/Ml 1 Ml Vial) 0.2 mg IV Q2M PRN PRN Reason: Opioid Reversal Nystatin (Nystatin 100,000 Unit/Ml Susp 500,000 Unit/5 Ml Cup) 500,000 unit PO QID [facility]; Protocol Last Admin: 09/05/22 09:41 Dose: 500,000 unit Ondansetron HCl (Ondansetron 4 Mg/2 Ml Vial) 4 mg IVP Q8HR PRN PRN Reason: Nausea And Vomiting Last Admin: 08/24/22 03:05 Dose: 4 mg Tacrolimus (Tacrolimus 0.5 Mg Cap) 0.5 mg PO BID [facility] Last Admin: 09/05/22 09:42 Dose: 0.5 mg PHYSICAL EXAMINATION: GENERAL: The patient is alert and oriented x4, Well developed, well nourished. HEENT: Pupils are round and equally reacting to light. EOMI. no scleral icterus. No conjunctival pallor. Normocephalic, atraumatic. No pharyngeal erythema. No thyromegaly. CARDIOVASCULAR: S1 and S2 muffled PULMONARY: diminished breath sounds bilaterally with no wheezing or rhonchi noted. ABDOMEN: soft. Nontender on exam. obese. non-distended, normoactive bowel sounds. No palpable organomegaly. MUSCULOSKELETAL: No joint swelling or deformity. EXTREMITIES: No cyanosis, clubbing, or pedal edema. NEUROLOGICAL: Gross neurological examination did not reveal any focal deficits. Diffuse weakness SKIN: No rashes. Assessment: Acute septic shock, severe sepsis, secondary to Proteus mirabilis urinary tract infection, present on admission Acute ischemic infarct left parietal area Acute hypoxic respiratory failure Chronic kidney disease, stage II MRSA in the sputum Gastroesophageal reflux disease Hypertension Osteoarthritis Cryptogenic liver with jaundice and has had 2 past liver transplants follows at [facility] GI prophylaxis DVT prophylaxis Full code Plan: Recommend to continue with current medications and management of multiple [facility] consultations following. Agent was a transfer out of the ICU to [facility] today and reports to feeling well. Patient is maintained on tube feeds recommend continue with meticulous oral care as mucous membranes are dry and appear crusted with crusting noted on the lips. Recommend aspiration pre cautions with head of the bed elevated 30-45 at all times and monitoring residuals closely. Recommend PT/OT therapy daily and social work is following working on possible ECF once patient is stabilized and cleared by consultations. Recommend continue with antibiotics and will discuss with infectious disease about possible IV antibiotics in the outpatient setting. Due to multiple complex medical issues, prognosis is guarded. Further recommendations to follow based on the clinical course of the patient. The impression and plan of care has been dictated by Rosalva Hidalgo, nurse practitioner as directed. Dr. Florencio MD I have performed a history and examination and MDM of this patient, discussed the same with the dictator, and agree with the dictator's assessment and plan as written ,documented as a scribe. Based on total visit time, I have performed more than 50% of the visit. Any additional findings or plans will be noted. Objective - Vital Signs Vital signs: Vital Signs Temp 97.3 F L 09/05/22 10:25 Pulse 80 09/05/22 10:25 Resp 16 09/05/22 10:25 BP 129/62 09/05/22 10:25 Pulse Ox 98 09/05/22 10:25 FiO2 2 09/03/22 00:00 Intake & Output 09/04/22 09/05/22 09/05/22 18:59 06:59 18:59 Intake Total 950 1680 225 Output Total 1710 1875 1150 Balance -543 -882 -951 Weight 102 kg 102 kg Intake: IV 450 Ertapenem 1 gm In Sodium 50 Chloride 0.9% 50 ml @ 100 mls/hr IVPB Q24H [facility] Rx# :[id number] Invasive Line 7 10 Linezolid 600 mg In 300 Dextrose/Water 1 300ml. bag @ 150 mls/hr IVPB Q12HR@0000,1200 [facility] Rx#: [id number] Sodium Chloride 0.9% 1, 90 000 ml @ 50 mls/hr IV . Q20H [facility] Rx#:[id number] Intake, IV Titration 300 Amount Linezolid 600 mg In 300 Dextrose/Water 1 300ml. bag @ 150 mls/hr IVPB Q12HR@0000,1200 [facility] Rx#: [id number] Oral 0 0 Tube Feeding 500 1380 225 Output: Urine 860 1350 350 Stool 850 525 800 Other: Voiding Method Indwelling Catheter Indwelling Catheter Indwelling Catheter ABP, PAP, CO, CI - Last Documented Arterial Blood Pressure 151/46 - Labs CBC & Chem 7: 09/05/22 03:24 09/05/22 03:24 Labs: Abnormal Lab Results - Last 24 Hours (Table) 09/05/22 09/05/22 Range/Units 03:24 03:24 RBC 3.62 L (4.30-5.90) m/uL Hgb 9.6 L (13.0-17.5) gm/dL Hct 31.2 L (39.0-53.0) % MCHC 30.8 L (31.0-37.0) g/dL Sodium 134 L (137-145) mmol/L BUN 28 H (9-20) mg/dL Calcium 8.1 L (8.4-10.2) mg/dL Total Protein 5.6 L (6.3-8.2) g/dL Albumin 2.6 L (3.5-5.0) g/dL Microbiology - Last 24 Hours (Table) 09/03/22 11:20 Catheter Tip Culture - Preliminary Catheter Tip
[2022-09-05 16:51] LABS: Glucose,Whole Blood 108 mg/dL (70-110)
[2022-09-05] MEDS: LATANOPROST 0.005% OPHTH DROPS 2.5 ML BTL BOTH EYES SCH (23:56)
[2022-09-06] MEDS: NYSTATIN 100,000 UNIT/ML SUSP 500,000 UNIT/5 ML CUP PO SCH ×5 (00:30→21:22)
[2022-09-06] MEDS: INSULIN ASPART (NovoLOG) 100 UNIT/ML VIAL SQ SCH ×5 (01:31→23:53)
[2022-09-06 01:33] LABS: Glucose,Whole Blood 92 mg/dL (70-110)
[2022-09-06] MEDS: LINEZOLID 600 MG in DEXTROSE/WATER 1 300ML.BAG IVPB SCH ×3 (01:41→23:49)
[2022-09-06 06:28] LABS: Glucose,Whole Blood 100 mg/dL (70-110)
[2022-09-06] MEDS: FUROSEMIDE 10 MG/ML 2 ML VIAL IV SCH ×2 (06:36→19:25)
[2022-09-06] MEDS: IPRATROPIUM-ALBUTEROL 3 ML NEB INHALATION SCH ×5 (07:58→20:19)
--- NOTE | 2022-09-06 10:30 | P.PN ---
Subjective Patient is seen in follow for acute kidney injury. Renal function fairly stable. Nonoliguric. On IV Lasix. Nonoliguric. Receiving tube feeds. Hemodynamically stable. On room air. Vital signs are stable. General: Resting in bed. HEENT: No JVD. LUNGS: Breath sounds decreased. HEART: Regular rate and rhythm. ABDOMEN: Soft, no distention. PEG tube noted. EXTREMITITES: 1+ edema. Objective - Vital Signs Vital signs: Vital Signs Temp 98.5 F 09/06/22 07:51 Pulse 80 09/06/22 08:08 Resp 12 09/06/22 07:51 BP 132/54 09/06/22 07:51 Pulse Ox 96 09/06/22 07:51 FiO2 21 09/05/22 20:20 Intake & Output 09/05/22 09/06/22 09/06/22 18:59 06:59 18:59 Intake Total 225 1180 Output Total 1150 2400 Balance -925 -2400 1180 Weight 102 kg Intake: Intake, IV Titration 0 Amount Lactated Ringers 1,000 ml 0 @ 0 mls/hr IV .[employer] [facility] Rx#:[id number] Tube Feeding 225 1000 Other 180 Output: Urine 350 1800 Stool 800 600 Other: Voiding Method Indwelling Catheter Indwelling Catheter Indwelling Catheter ABP, PAP, CO, CI - Last Documented Arterial Blood Pressure 151/46 - Labs CBC & Chem 7: 09/05/22 03:24 09/05/22 03:24 Labs: Microbiology - Last 24 Hours (Table) 09/03/22 11:20 Catheter Tip Culture - Final Catheter Tip Assessment and Plan Plan: Assessment: 1. Acute kidney injury secondary to ATN secondary to septic shock and contrast- induced acute kidney injury. Patient received IV contrast on 08/23/2022. Creatinine was 1.74 on admission and peaked at 2.78 -1.1 yesterday. Nonoliguric. No hydronephrosis noted on CAT scan. 2. Chronic kidney disease stage IIIa with baseline creatinine in the range of 1.2-1.5 secondary to nephrosclerosis and long-term calcineurin inhibitor use. 3. 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 4. Metabolic acidosis secondary to acute kidney injury, lactic acidosis and IV fluids. Resolved. 5. 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 Neurology following. 6. Septic shock secondary to Proteus UTI and bacteremia on antibiotics. Off vasopressors. 7. Volume overload. Plan: Maintain IV Lasix. Maintain home antirejection meds. Follow-up repeat Prograf level. Avoid nephrotoxins.
[2022-09-06] MEDS: ERTAPENEM 1 GM in SODIUM CHLORIDE 0.9% 50 ML IVPB SCH (10:50)
[2022-09-06] MEDS: HEPARIN SODIUM,PORCINE/PF 5,000 UNIT/0.5 ML SYRINGE SQ SCH ×2 (11:09→21:21)
[2022-09-06] MEDS: FAMOTIDINE 20 MG TAB PO SCH ×2 (11:10→21:22)
[2022-09-06] MEDS: ASPIRIN 81 MG PO SCH (11:10)
[2022-09-06] MEDS: TACROLIMUS 0.5 MG CAP PO SCH ×2 (11:11→21:21)
[2022-09-06 11:17] LABS: African American GFR (CKD) 76.3 (60.0-200.0); Anion Gap 8.7 mmol/L (10.00-18.00); BUN/Creat Ratio 27.69 Ratio (12.00-20.00); Blood Urea Nitrogen 29.9 mg/dL (9.0-27.0); Calcium 8.5 mg/dL (8.7-10.3); Carbon Dioxide 26.8 mmol/L (20.0-27.5); Magnesium 1.6 mg/dL (1.5-2.4); Non-African American GFR(CKD) 65.9 (60.0-200.0); Potassium 4.2 mmol/L (3.5-5.5)
[2022-09-06 12:12] LABS: Glucose,Whole Blood 100 mg/dL (70-110)
[2022-09-06] MEDS ORDERED: LOPERAMIDE 2 MG CAP PO PRN (13:15)
--- NOTE | 2022-09-06 13:55 | P.PN ---
Subjective Progress Note Date: 09/06/22 76-year-old black male, with a previous history of liver transplant, at [facility], and CVA, with right-sided weakness, who apparently presented to the emergency department on August 22, complaining of profound weakness, nausea, and vomiting. The patient was admitted to the floor, and I was asked to transfer the patient to the intensive care unit, as the patient was thought to have sepsis, with hypotension. 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 He apparently was at [email or web address], shopping, and developed sudden onset of abdominal pain nausea and vomiting. He also complaining of weakness in his lower extremities. Seen in the emergency room, and admitted to the hospital. Currently, the patient's getting saline at 130 mL an hour, and norepinephrine at 0.04 mcg/kg/m. A blood gas done on 6 L shows a pO2 of 86, pCO2 27, and a pH is 7.36. This blood gases consistent with mild metabolic acidosis. His initial blood gas was consistent with non-anion gap metabolic acidosis. His lactate initially was 4.8. He's currently on Zosyn. A computed tomography scan of the brain showed an acute infarct of the left parietal lobe. He is being seen by neurology. White count 4.1, hemoglobin 14, hematocrit 46.5, and platelet count 95,000. Sodium 138, potassium 4.3, chlorides 113, CO2 15, anion gap 10, BUN 26, creatini ne 2.53. Lactic acid is 2.2. AST is 267 and ALT is 68. Troponin was 0.491. Pro-calcitonin level is 30.4. UA is consistent with a possible urinary tract infection. Testing for coronavirus was negative. Chest x-ray, after central line placement, by me, showed no complication. Progress note dated 09/04/2022.76-year-old black male again seen in room 250. He had an uneventful night according to the nurse. He's currently on room air. He is getting saline at 50 mL now which can be discontinued. He is getting vital AF, at 40 mL an hour, with a goal of 75. PEG tube was placed a couple days ago. The patient could be transferred out to the general medical floor with telemetry. The patient is being treated for both Proteus and methicillin- resistant staph aureus infections with ertapenem and Zyvox. White count 3, hemoglobin 8.2, hematocrit 25.4, and platelet count 111,000. Sodium 133, potassium 4, chlorides 105, CO2 23, anion gap 5, BUN 25, and creatinine 0.88. Chest x-ray from September 03 only shows evidence of cardiomegaly. Patient was reevaluated today on 09/05/2022, patient remains in the ICU as an overflow, his IV fluid to KVO, patient is hemodynamically stable, he is not requiring any pressors, patient is receiving enteral feeding via PEG tube. He is receiving vital AF at 75 mL per hour. Patient has MRSA in the sputum, and he has Proteus mirabilis bacteremia. He is on room air, does not seem to be in any distress, patient was extubated on 08/29/22. CBC is relatively normal electrolytes are normal renal profile is normal. Chest x-ray from 09/03 showed mostly cardiomegaly. The patient is seen today 09/06/2022 in follow-up on the regular medical floor. He is currently resting comfortably in bed. Awake. Maintaining good O2 saturations in the 90s on room air. Sodium 137. Potassium 4.2. BUN 30. Creatinine 1.1. Glucose 84. Sputum culture was positive for MRSA. Follow-up blood cultures revealed no growth. Initial blood cultures positive for Proteus mirabilis. He is continued on ertapenem and Linezolid per ID services. Remains on bronchodilators. Heparin for DVT prophylaxis. IV diuretics per nephrology. Catheter tip culture revealed no growth. Discharge planning in place. Objective - Vital Signs Vital signs: Vital Signs Temp 98.5 F 09/06/22 07:51 Pulse 88 09/06/22 10:58 Resp 12 09/06/22 07:51 BP 132/54 09/06/22 07:51 Pulse Ox 96 09/06/22 07:51 FiO2 21 09/05/22 20:20 Intake & Output 09/05/22 09/06/22 09/06/22 18:59 06:59 18:59 Intake Total 225 1180 Output Total 1150 2400 1850 Balance -817 -4490 -756 Weight 102 kg Intake: Intake, IV Titration 0 Amount Lactated Ringers 1,000 ml 0 @ 0 mls/hr IV .[facility] Rx#:[id number] Tube Feeding 225 1000 Other 180 Output: Urine 350 1800 1850 Stool 800 600 Other: Voiding Method Indwelling Catheter Indwelling Catheter Indwelling Catheter ABP, PAP, CO, CI - Last Documented Arterial Blood Pressure 151/46 - Exam Physical Exam: Reveals a 76-year-old male patient, in no distress on room air. Slightly lethargic. Head: Atraumatic, normocephalic. HEENT:Neck is supple. No neck masses. No thyromegaly. No JVD. Chest: Course of breath sounds at the bases no rhonchi and no wheezes Cardiac Exam: Normal S1 and S2, no S3 gallop, no murmur. Abdomen: Soft, nontender, no megaly, no rebound, no guarding, normal bowel sounds. Extremities: No clubbing, trace of bipedal edema and chronic venous stasis changes., no cyanosis. Neurological Exam: Lethargic, but arousable, follows simple instructions, rather bit slow. Musculoskeletal: No deformities noted limitation in range of motion. Skin: No rashes. - Labs CBC & Chem 7: 09/05/22 03:24 09/06/22 07:07 Labs: Abnormal Lab Results - Last 24 Hours (Table) 09/06/22 Range/Units 07:07 Anion Gap 8.70 L (10.00-18.00) mmol/L BUN 29.9 H (9.0-27.0) mg/dL BUN/Creatinine Ratio 27.69 H (12.00-20.00) Ratio Calcium 8.5 L (8.7-10.3) mg/dL Microbiology - Last 24 Hours (Table) 09/03/22 11:20 Catheter Tip Culture - Final Catheter Tip Assessment and Plan Assessment: Acute ischemic stroke over left parietal region and the left STEVE territory with right hemiparesis, leg more involved than right Status post intubation and mechanical ventilation and air to above, extubated on 08/29 uneventfully. Gram-negative sepsis with secondary to Proteus mirabilis. Left lower lobe pneumonia, possibly MRSA related since the sputum is positive for MRSA. Proteus mirabilis bacteremia History of liver transplantation Acute kidney injury Benign essential hypertension Dyslipidemia Acute left parietal ischemic infarct Status post PEG tube placement on 08/2022. Plan: The patient was seen and evaluated Stable and on room air Continued on ertapenem and Zyvox per ID service is Plan will be for subacute rehabilitation Pulmonary and critical care service will sign off I have personally seen and examined the patient, performed the documentation and the assessment and plan as written. Number of minutes spent on the visit: 10.
[2022-09-06] MEDS: MAGNESIUM SULFATE-D5W PMX 1 GM in DEXTROSE/WATER 1 100ML.BAG IVPB SCH ×2 (16:15→19:21)
--- NOTE | 2022-09-06 16:15 | P.CONS ---
History of Present Illness - Chief Complaint Gait disturbance, encephalopathy - History of Present Illness I had the opportunity see patient for inpatient rehab consultation with regard to gait disturbance. Patient admitted to [facility] to Dr. Mcleod August 23 with generalized weakness, nausea and emesis and history of chronic stroke and right hemiplegia. History of liver transplant. Seen by neurology, Dr. Poncho De Santiago diagnosis stroke and encephalopathy. Seen by Dr. Gill for ICU note sepsis. Seen by Dr. Pringle for the sepsis. Seen by Dr. Saeed for chronic kidney disease stage IIIa. Seen by Dr. Price who notes bilateral carotid disease. Seen by Dr. alcocer who did perform upper endoscopy. Patient has had multiple chest x-rays and follow cardiomegaly and leads. CT of abdomen and pelvis demonstrates atelectasis and bilateral renal cortical cyst. Angiogram CT second demonstrated atrophy. Initial head CT with left parietal acute infarct and cerebral atrophy. Follow-up head CT was stable left centrum semiovale infarct. Has started therapy. PT reports two-person total assistance bed mobility and fatigues quickly. OT reports unable to assist with any self-care and is a two-person total assistance for functional mobility. Speech therapy assessing for speech intelligibility and swallow. Previous functional history as elicited from patient: 76-year-old right-handed -[place] male who is lives and 2 floor home with grandson. Apparently share the cooking and grandson does the laundry. Patient describes that he is independent with driving and standing shower previously. PCP Dr. Edwards. Review of Systems Review of systems: ENT: Denies sneezes or discharge. Eyes: Denies discharge or photophobia. Cardiac: Denies chest pain or palpitation. Pulmonary: Denies cough or shortness of breath. Gastrointestinal: History of liver transplant. Genitourinary: C KD stage IIIa. Musculoskeletal: Denies muscle or bone aches. Neurologic: Generalized weakness. Poor speech intelligibility due to volume. Endocrine: Denies shakes or sweats. Oncology: Denies cancers. Dermatologic: Denies rash, itching, pruritus. ALLERGY/immunology: Denies sneezes, rashes. 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 Past Anesthesia/Blood Transfusion Reactions: No Reported Reaction Additional Past Anesthesia/Blood Transfusion Reaction / Comm: Pt received blood in past without reaction. hx jaw fx- had surgery and has a plate. a little confusion when first waking up Past Psychological History: No Psychological Hx Reported Smoking Status: Never smoker Past Alcohol Use History: None Reported Past Drug Use History: None Reported - Past Family History Father Family Medical History: Cancer Additional Family Medical History / Comment(s): Father was healthy. He around the age of 83 yrs. Mother Family Medical History: Myocardial Infarction (AK) Additional Family Medical History / Comment(s): Mother of a AK at the age of 83 yrs. Medications and Allergies Home Medications Medication Instructions Recorded Confirmed Type Metoprolol Succinate [Toprol XL] 50 mg PO HS 07/20/15 08/23/22 History Tacrolimus [Prograf] 0.5 mg PO BID 07/20/15 08/23/22 History Tamsulosin [Flomax] 0.4 mg PO HS 07/20/15 08/23/22 History dexAMETHasone ORAL [Hexadrol] 0.5 mg PO HS 07/20/15 08/23/22 History mycophenolate mofetiL [Cellcept] 1,000 mg PO BID 07/20/15 08/23/22 History Pravastatin Sodium [Pravachol] 10 mg PO HS 03/03/17 08/23/22 History Aspirin EC [Ecotrin Low Dose] 81 mg PO HS 03/08/21 08/23/22 History Latanoprost [Xalatan 0.005%] 1 drop BOTH EYES HS 11/28/21 08/23/22 History Cholecalciferol [Vitamin D3 (125 125 mcg PO HS 08/23/22 08/23/22 History Mcg = 5000 Iu)] Multivitamins, Thera [Multivitamin 1 tab PO HS 08/23/22 08/23/22 History (formulary)] Omeprazole Magnesium [PriLOSEC OTC] 20 mg PO HS 08/23/22 08/23/22 History Allergies Allergy/AdvReac Type Severity Reaction Status Date / Time No Known Allergies Allergy Verified 08/23/22 07:35 Physical Exam Vitals: Vital Signs Temp Pulse Pulse Pulse Resp BP Pulse Ox 09/06/22 15:34 99 09/06/22 15:09 98.7 F 82 20 101/53 100 09/06/22 10:58 88 09/06/22 10:48 88 09/06/22 08:08 80 09/06/22 08:00 80 09/06/22 07:58 80 09/06/22 07:51 98.5 F 75 12 132/54 96 09/06/22 02:00 98.4 F 76 18 131/61 98 09/05/22 20:31 84 09/05/22 20:20 86 98 09/05/22 20:00 98.5 F 85 18 122/62 98 FiO2 09/06/22 15:34 09/06/22 15:09 09/06/22 10:58 09/06/22 10:48 09/06/22 08:08 09/06/22 08:00 09/06/22 07:58 09/06/22 07:51 09/06/22 02:00 09/05/22 20:31 09/05/22 20:20 21 09/05/22 20:00 Intake and Output 09/06/22 09/06/22 09/06/22 06:59 14:59 22:59 Intake Total 1180 Output Total 900 1850 Balance -900 -670 Intake: Intake, IV Titration 0 Amount Lactated Ringers 1,000 ml 0 @ 0 mls/hr IV .[facility] ONE Rx#:[id number] Tube Feeding 1000 Other 180 Output: Urine 900 1850 Other: Voiding Method Indwelling Catheter Skin: Atrophic, intact. General: Medium build and comfortable appearance. Head: Normocephalic, atraumatic. Eyes: Symmetric. Pupils equal round. Ears: Symmetric. Hearing within normal limits. Mouth: Clear. Neck: Supple. Carotid without bruit. Cardiac: Regular rate and rhythm. Lungs: Clear anteriorly and posteriorly. Abdomen: Soft active nontender. Extremities: Normal tone. Neurological: Mental status: Alert, cooperative, pleasant. Cranial nerves: Symmetric facial tone and trapezius. Motor: Can actively move left arm only. Right arm and leg poor minus and left leg poor. Sensation: Intact appears depressed throughout. DTRs: Symmetric and equal throughout. Mobility: Total assist for any bed mobility. Results CBC & Chem 7: 09/05/22 03:24 09/06/22 07:07 Labs: Abnormal Lab Results - Last 24 Hours (Table) 09/06/22 Range/Units 07:07 Anion Gap 8.70 L (10.00-18.00) mmol/L BUN 29.9 H (9.0-27.0) mg/dL BUN/Creatinine Ratio 27.69 H (12.00-20.00) Ratio Calcium 8.5 L (8.7-10.3) mg/dL Microbiology - Last 24 Hours (Table) 09/03/22 11:20 Catheter Tip Culture - Final Catheter Tip Assessment and Plan (1) Bacteremia Current Visit: Yes Status: Acute Code(s): R78.81 - BACTEREMIA SNOMED Code(s): 2993915 (2) History of liver transplant Current Visit: Yes Status: Acute Code(s): Z94.4 - LIVER TRANSPLANT STATUS SNOMED Code(s): 626184069 (3) Nausea & vomiting Current Visit: Yes Status: Acute Code(s): R11.2 - NAUSEA WITH VOMITING, UNSPECIFIED SNOMED Code(s): 65842819 (4) Acute ischemic stroke Current Visit: No Status: Acute Code(s): I63.9 - CEREBRAL INFARCTION, UNSPECIFIED SNOMED Code(s): 177620436 Plan: Comments and plan: Diagnoses should also include encephalopathy most likely rela alondra to the CK D, liver and sepsis. Patient is started therapies currently with poor or physical stamina and endurance. Would not be able tolerate an inpatient rehab program. Recommend begin to consider alternative discharge planning.
--- NOTE | 2022-09-06 18:12 | P.PN ---
Subjective Progress Note Date: 09/06/22 This is a 76-year-old male who was recently admitted with multiple medical issues including sepsis with septic shock and acute CVA and is being closely monitored. Patient is maintained in the ICU and is a downgrade waiting a bed on [facility]. Patient is maintained on tube feeds and tolerating and recommend to continue with aspiration precautions with head of the bed elevated 30-45 at all times and monitoring closely for residuals. Multiple medical consultations following including infectious disease and patient is maintained on IV antibiotics. Patient is afebrile and is talking although delayed but appears to be alert and oriented and understanding. Patient denies any chest pain or shortness of breath. Patient reports no pain at this time. Recommend PT/OT therapy daily and working on possible ECF. 09/05/2022 Patient is seen today and being followed by nephrology and infectious disease. Patient is continued on IV lasix and also antibiotics. Kidney functions improving and will discuss transition to oral. Recommend repeat labs. Family looking at ECF choices and touring them with case management following. Consult placed for IPR at [facility] with Dr. Perez as well. Patient is maximum assistance and extremely weak. Peg tube functioning and tolerating. Afebrile and denies chest pain or shortness of breath. Reports he feels welll. Review of systems: unable to completely obtain as patient is slow to respond All medications have been reviewed PHYSICAL EXAMINATION: GENERAL: The patient is alert and oriented x3, Well developed, well nourished. HEENT: Pupils are round and equally reacting to light. EOMI. no scleral icterus. No conjunctival pallor. Normocephalic, atraumatic. No pharyngeal erythema. No thyromegaly. CARDIOVASCULAR: S1 and S2 muffled PULMONARY: diminished breath sounds bilaterally with no wheezing or rhonchi noted. ABDOMEN: soft. Nontender on exam. obese. non-distended, normoactive bowel sounds. No palpable organomegaly. MUSCULOSKELETAL: No joint swelling or deformity. EXTREMITIES: No cyanosis, clubbing, or pedal edema. NEUROLOGICAL: Gross neurological examination did not reveal any focal deficits. Left arm with some strength, lower extremities 1/5 Diffuse weakness SKIN: No rashes. 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 Patient reports to feeling well today and answering questions appropriately. Patient is maintained on tube feeds and monitor for residuals. Recommend aspiration precautions with head of the bed elevated 30-45 at all times and monitoring residuals closely. Recommend PT/OT therapy daily and case management is following working on possible ECF vs Inpatient rehab once patient is stabilized and cleared by consultations. Pulmonary has cleared the patient for discharge. Nephrology following and continued on IV lasix, possible transition to oral. Recommend continue with antibiotics and will discuss with infectious disease about possible IV antibiotics in the outpatient setting. Dr. Perez consult placed for possible inpatient rehab and is not a candidate per DR. Perez and recommending [facility] facilities with no choice made as of yet. Case management to follow up tomorrow. Due to multiple complex medical issues, prognosis is guarded. Further recommendations to follow based on the clinical course of the patient. The impression and plan of care has been dictated by Rosalva Hidalgo, nurse practitioner as directed. Dr. Florencio MD I have performed a history and examination and MDM of this patient, discussed the same with the dictator, and agree with the dictator's assessment and plan as written ,documented as a scribe. Based on total visit time, I have performed more than 50% of the visit. Any additional findings or plans will be noted. Objective - Vital Signs Vital signs: Vital Signs Temp 98.5 F 09/06/22 07:51 Pulse 80 09/06/22 08:08 Resp 12 09/06/22 07:51 BP 132/54 09/06/22 07:51 Pulse Ox 96 09/06/22 07:51 FiO2 21 09/05/22 20:20 Intake & Output 09/05/22 09/06/22 09/06/22 18:59 06:59 18:59 Intake Total 225 1180 Output Total 1150 2400 Balance -925 -2400 1180 Weight 102 kg Intake: Intake, IV Titration 0 Amount Lactated Ringers 1,000 ml 0 @ 0 mls/hr IV .[facility] Rx#:[id number] Tube Feeding 225 1000 Other 180 Output: Urine 350 1800 Stool 800 600 Other: Voiding Method Indwelling Catheter Indwelling Catheter Indwelling Catheter ABP, PAP, CO, CI - Last Documented Arterial Blood Pressure 151/46 - Labs CBC & Chem 7: 09/05/22 03:24 09/06/22 07:07 Labs: Microbiology - Last 24 Hours (Table) 09/03/22 11:20 Catheter Tip Culture - Final Catheter Tip
[2022-09-06 18:29] LABS: Glucose,Whole Blood 111 mg/dL (70-110)
[2022-09-06 20:25] LABS: Glucose,Whole Blood 131 mg/dL (70-110)
[2022-09-06] MEDS: LATANOPROST 0.005% OPHTH DROPS 2.5 ML BTL BOTH EYES SCH (21:22)
--- NOTE | 2022-09-06 23:43 | P.PN ---
Subjective Progress Note Date: 09/04/22 Principal diagnosis: Bacteremia Patient is a 76-year-old -[place] male past medical history significant for liver failure status post liver transplant or redness of his medication presented to hospital generalized weakness did have a positive UA concerning for UTI patient subsequently have a positive blood culture. Patient has been extubated 08/29/2022 On today's evaluation that is 09/04/2022, the patient remains to be afebrile, the patient is breathing comfortably room air patient is hemodynamically stable not requiring pressor support, the patient denies any chest pain or shortness with occasional cough no abdominal pain still have a fecal management system but no worsening output Objective - Vital Signs Vital signs: Vital Signs Temp 98.5 F 09/04/22 08:00 Pulse 74 09/04/22 15:16 Resp 15 09/04/22 08:00 BP 133/54 09/04/22 08:00 Pulse Ox 97 09/04/22 15:07 FiO2 2 09/03/22 00:00 Intake & Output 09/03/22 09/04/22 09/04/22 19:59 06:59 18:59 Intake Total 570 Output Total 1360 Balance -790 Weight Intake: IV 440 Ertapenem 0.5 gm In Sodium Chloride 0.9% 50 ml @ 100 mls/hr IVPB Q24H [facility] Rx#:[id number] Ertapenem 1 gm In Sodium 50 Chloride 0.9% 50 ml @ 100 mls/hr IVPB Q24H [facility] Rx# :[id number] Linezolid 600 mg In 300 Dextrose/Water 1 300ml. bag @ 150 mls/hr IVPB Q12HR@0000,1200 [facility] Rx#: [id number] Sodium Chloride 0.9% 1, 90 000 ml @ 50 mls/hr IV . Q20H [facility] Rx#:[id number] Oral 0 Tube Feeding 130 Other Output: Urine 510 Stool 850 Other: Voiding Method Indwelling Catheter ABP, PAP, CO, CI - Last Documented Arterial Blood Pressure 151/46 - Exam GENERAL DESCRIPTION: An elderly male lying in bed in no distress RESPIRATORY SYSTEM: Unlabored breathing , decreased breath sounds at bases HEART: S1 S2 regular rate and rhythm , ABDOMEN: Soft , no tenderness EXTREMITIES: No edema feet - Labs CBC & Chem 7: 09/05/22 03:24 09/06/22 07:07 Labs: Abnormal Lab Results - Last 24 Hours (Table) 09/04/22 09/04/22 Range/Units 07:10 07:10 WBC 3.0 L (3.8-10.6) k/uL RBC 3.02 L (4.30-5.90) m/uL Hgb 8.2 L (13.0-17.5) gm/dL Hct 25.4 L (39.0-53.0) % Plt Count 111 L D (150-450) k/uL Lymphocytes # (Manual) 0.99 L (1.0-4.8) k/uL Sodium 133 L (137-145) mmol/L BUN 25 H (9-20) mg/dL Calcium 7.7 L (8.4-10.2) mg/dL Microbiology - Last 24 Hours (Table) 09/03/22 11:20 Catheter Tip Culture - Preliminary Catheter Tip Assessment and Plan (1) Bacteremia Current Visit: Yes Status: Acute Code(s): R78.81 - BACTEREMIA SNOMED Code(s): 8702571 (2) UTI (urinary tract infection) Current Visit: No Status: Acute Code(s): N39.0 - URINARY TRACT INFECTION, SITE NOT SPECIFIED SNOMED Code(s): 54419971 Plan: 1patient presented to hospital with abdominal pain and nausea and vomiting in this patient did have a positive UA CT abdominal pelvis did not show any acute abnormality abdominal soft medical examination patient did have a positive UA concerning for symptomatic urinary tract infection likely from enteric gram- negative pathogen, patient subsequently did have slight worsening of his respiratory status and concern for possible aspiration pneumonitis. 2 Patient urine culture with Proteus which is a sensitive pathogen however blood culture showing ESBL proteus , Patient to continue with Invanz to finish his 2-week course of therapy 3patient with MRSA pneumonia in this patient seem to have shown some clinical improvement respiratory status has improved , patient to continue with the current treatment of Zyvox to finish his 2-week course of therapy. Time with Patient: Less than 30
--- NOTE | 2022-09-06 23:44 | P.PN ---
Subjective Progress Note Date: 09/05/22 Principal diagnosis: Bacteremia Patient is a 76-year-old -[place] male past medical history significant for liver failure status post liver transplant or redness of his medication presented to hospital generalized weakness did have a positive UA concerning for UTI patient subsequently have a positive blood culture. Patient has been extubated 08/29/2022 On today's evaluation that is 09/05/2022, the patient continues to be afebrile, the patient is breathing comfortably room air , the patient denies any chest pain or shortness with occasional cough no abdominal pain still have a fecal management system but no worsening output in the fecal management system per the nursing staff Objective - Vital Signs Vital signs: Vital Signs Temp 97.5 F L 09/05/22 15:53 Pulse 79 09/05/22 15:53 Resp 18 09/05/22 15:53 BP 126/61 09/05/22 15:53 Pulse Ox 97 09/05/22 15:53 FiO2 2 09/03/22 00:00 Intake & Output 09/04/22 09/05/22 09/05/22 18:59 06:59 18:59 Intake Total 950 1680 225 Output Total 1710 1875 1150 Balance -760 -195 -925 Weight 102 kg 102 kg Intake: IV 450 Ertapenem 1 gm In Sodium 50 Chloride 0.9% 50 ml @ 100 mls/hr IVPB Q24H [facility] Rx# :[id number] Invasive Line 7 10 Linezolid 600 mg In 300 Dextrose/Water 1 300ml. bag @ 150 mls/hr IVPB Q12HR@0000,1200 [facility] Rx#: [id number] Sodium Chloride 0.9% 1, 90 000 ml @ 50 mls/hr IV . Q20H [facility] Rx#:[id number] Intake, IV Titration 300 Amount Linezolid 600 mg In 300 Dextrose/Water 1 300ml. bag @ 150 mls/hr IVPB Q12HR@0000,1200 [facility] Rx#: [id number] Oral 0 0 Tube Feeding 500 1380 225 Output: Urine 860 1350 350 Stool 850 525 800 Other: Voiding Method Indwelling Catheter Indwelling Catheter Indwelling Catheter ABP, PAP, CO, CI - Last Documented Arterial Blood Pressure 151/46 - Exam GENERAL DESCRIPTION: An elderly male lying in bed in no distress RESPIRATORY SYSTEM: Unlabored breathing , decreased breath sounds at bases HEART: S1 S2 regular rate and rhythm , ABDOMEN: Soft , no tenderness EXTREMITIES: No edema feet - Labs CBC & Chem 7: 09/05/22 03:24 09/06/22 07:07 Labs: Abnormal Lab Results - Last 24 Hours (Table) 09/05/22 09/05/22 Range/Units 03:24 03:24 RBC 3.62 L (4.30-5.90) m/uL Hgb 9.6 L (13.0-17.5) gm/dL Hct 31.2 L (39.0-53.0) % MCHC 30.8 L (31.0-37.0) g/dL Sodium 134 L (137-145) mmol/L BUN 28 H (9-20) mg/dL Calcium 8.1 L (8.4-10.2) mg/dL Total Protein 5.6 L (6.3-8.2) g/dL Albumin 2.6 L (3.5-5.0) g/dL Microbiology - Last 24 Hours (Table) 09/03/22 11:20 Catheter Tip Culture - Final Catheter Tip Assessment and Plan (1) Bacteremia Current Visit: Yes Status: Acute Code(s): R78.81 - BACTEREMIA SNOMED Code(s): 6958315 (2) UTI (urinary tract infection) Current Visit: No Status: Acute Code(s): N39.0 - URINARY TRACT INFECTION, SITE NOT SPECIFIED SNOMED Code(s): 03895277 Plan: 1patient presented to hospital with abdominal pain and nausea and vomiting in this patient did have a positive UA CT abdominal pelvis did not show any acute abnormality abdominal soft medical examination patient did have a positive UA concerning for symptomatic urinary tract infection likely from enteric gram- negative pathogen, patient subsequently did have slight worsening of his respiratory status and concern for possible aspiration pneumonitis. 2 Patient urine culture with Proteus which is a sensitive pathogen however blood culture showing ESBL proteus , Patient has continued improvement and continue with Invanz to finish his 2-week course of therapy 3patient with MRSA pneumonia in this patient seem to have shown some clinical improvement respiratory status has improved , patient to continue Zyvox to finish his 2-week course of therapy. Time with Patient: Less than 30
--- NOTE | 2022-09-06 23:46 | P.PN ---
Subjective Progress Note Date: 09/06/22 Principal diagnosis: Bacteremia Patient is a 76-year-old -[place] male past medical history significant for liver failure status post liver transplant or redness of his medication presented to hospital generalized weakness did have a positive UA concerning for UTI patient subsequently have a positive blood culture. Patient has been extubated 08/29/2022 On today's evaluation that is 09/06/2022, the patient denies any fever or any chills, the patient is breathing comfortably room air , the patient denies any chest pain or shortness with occasional cough but no sputum production, no abdominal pain still have a fecal management system but no worsening stool output per the nursing staff Objective - Vital Signs Vital signs: Vital Signs Temp 98.5 F 09/06/22 07:51 Pulse 88 09/06/22 10:58 Resp 12 09/06/22 07:51 BP 132/54 09/06/22 07:51 Pulse Ox 96 09/06/22 07:51 FiO2 21 09/05/22 20:20 Intake & Output 09/05/22 09/06/22 09/06/22 18:59 06:59 18:59 Intake Total 225 1180 Output Total 1150 2400 1850 Balance -925 -2400 -670 Weight 102 kg Intake: Intake, IV Titration 0 Amount Lactated Ringers 1,000 ml 0 @ 0 mls/hr IV .[employer] ONE Rx#:[id number] Tube Feeding 225 1000 Other 180 Output: Urine 350 1800 1850 Stool 800 600 Other: Voiding Method Indwelling Catheter Indwelling Catheter Indwelling Catheter ABP, PAP, CO, CI - Last Documented Arterial Blood Pressure 151/46 - Exam GENERAL DESCRIPTION: An elderly male lying in bed in no distress RESPIRATORY SYSTEM: Unlabored breathing , decreased breath sounds at bases HEART: S1 S2 regular rate and rhythm , ABDOMEN: Soft , no tenderness EXTREMITIES: No edema feet - Labs CBC & Chem 7: 09/05/22 03:24 09/06/22 07:07 Labs: Abnormal Lab Results - Last 24 Hours (Table) 09/06/22 Range/Units 07:07 Anion Gap 8.70 L (10.00-18.00) mmol/L BUN 29.9 H (9.0-27.0) mg/dL BUN/Creatinine Ratio 27.69 H (12.00-20.00) Ratio Calcium 8.5 L (8.7-10.3) mg/dL Microbiology - Last 24 Hours (Table) 09/03/22 11:20 Catheter Tip Culture - Final Catheter Tip Assessment and Plan (1) Bacteremia Current Visit: Yes Status: Acute Code(s): R78.81 - BACTEREMIA SNOMED Code(s): 7916667 (2) UTI (urinary tract infection) Current Visit: No Status: Acute Code(s): N39.0 - URINARY TRACT INFECTION, SITE NOT SPECIFIED SNOMED Code(s): 52370593 Plan: 1patient presented to hospital with abdominal pain and nausea and vomiting in this patient did have a positive UA CT abdominal pelvis did not show any acute abnormality abdominal soft medical examination patient did have a positive UA concerning for symptomatic urinary tract infection likely from enteric gram- negative pathogen, patient subsequently did have slight worsening of his respiratory status and concern for possible aspiration pneumonitis. 2 Patient urine culture with Proteus which is a sensitive pathogen however blood culture showing ESBL proteus , Patient has continued improvement and continue with Invanz to finish his 2-week course of therapy 3patient with MRSA pneumonia in this patient seem to have shown some clinical improvement respiratory status has improved , patient to continue Zyvox to finish his 2-week course of therapy. 4-patient with diarrhea stool for C. diff has been negative 2 Questran could not be added , will add Imodium and see clinical response Time with Patient: Less than 30
[2022-09-06 23:49] LABS: Glucose,Whole Blood 117 mg/dL (70-110)
[2022-09-07] MEDS: FUROSEMIDE 10 MG/ML 2 ML VIAL IV SCH ×2 (05:37→17:37)
[2022-09-07 06:06] LABS: Glucose,Whole Blood 108 mg/dL (70-110)
[2022-09-07] MEDS: INSULIN ASPART (NovoLOG) 100 UNIT/ML VIAL SQ SCH ×3 (06:24→16:37)
[2022-09-07] MEDS: IPRATROPIUM-ALBUTEROL 3 ML NEB INHALATION SCH ×4 (07:55→21:19)
[2022-09-07] MEDS: NYSTATIN 100,000 UNIT/ML SUSP 500,000 UNIT/5 ML CUP PO SCH ×4 (09:38→21:14)
--- NOTE | 2022-09-07 09:38 | P.PN ---
Subjective Patient is seen in follow for acute kidney injury. Renal function fairly stable. Nonoliguric. On IV Lasix. Nonoliguric. Receiving tube feeds. Hemodynamically stable. On nasal cannula. Resting in bed. Vital signs are stable. General: Resting in bed. HEENT: No JVD. LUNGS: Breath sounds decreased. HEART: Regular rate and rhythm. ABDOMEN: Soft, no distention. PEG tube noted. EXTREMITITES: 1+ edema. Objective - Vital Signs Vital signs: Vital Signs Temp 98.0 F 09/07/22 08:00 Pulse 81 09/07/22 08:06 Resp 16 09/07/22 08:00 BP 120/72 09/07/22 08:00 Pulse Ox 98 09/07/22 08:00 FiO2 21 09/05/22 20:20 Intake & Output 09/06/22 09/07/22 09/07/22 18:59 06:59 18:59 Intake Total 1180 Output Total 2350 2150 Balance -1170 -2150 Weight 102.5 kg Intake: Intake, IV Titration 0 Amount Lactated Ringers 1,000 ml 0 @ 0 mls/hr IV .[employer] ONE Rx#:[id number] Tube Feeding 1000 Other 180 Output: Urine 1850 2000 Stool 500 150 Other: Voiding Method Indwelling Catheter Indwelling Catheter ABP, PAP, CO, CI - Last Documented Arterial Blood Pressure 151/46 - Labs CBC & Chem 7: 09/05/22 03:24 09/06/22 07:07 Labs: Abnormal Lab Results - Last 24 Hours (Table) 09/06/22 09/06/22 09/06/22 Range/Units 07:07 18:28 20:24 Anion Gap 8.70 L (10.00-18.00) mmol/L BUN 29.9 H (9.0-27.0) mg/dL BUN/Creatinine Ratio 27.69 H (12.00-20.00) Ratio POC Glucose (mg/dL) 111 H 131 H (70-110) mg/dL Calcium 8.5 L (8.7-10.3) mg/dL 09/06/22 Range/Units 23:48 Anion Gap (10.00-18.00) mmol/L BUN (9.0-27.0) mg/dL BUN/Creatinine Ratio (12.00-20.00) Ratio POC Glucose (mg/dL) 117 H (70-110) mg/dL Calcium (8.7-10.3) mg/dL Assessment and Plan Plan: Assessment: 1. Acute kidney injury secondary to ATN secondary to septic shock and contrast- induced acute kidney injury. Patient received IV contrast on 08/23/2022. Creatinine was 1.74 on admission and peaked at 2.78 - 1.1 yesterday. Nonoliguric. No hydronephrosis noted on CAT scan. 2. Chronic kidney disease stage IIIa with baseline creatinine in the range of 1.2-1.5 secondary to nephrosclerosis and long-term calcineurin inhibitor use. 3. 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 4. Metabolic acidosis secondary to acute kidney injury, lactic acidosis and IV fluids. Resolved. 5. 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 Neurology following. 6. Septic shock secondary to Proteus UTI and bacteremia on antibiotics. Off vasopressors. 7. Volume overload. Plan: Maintain IV Lasix. Maintain home antirejection meds. Follow-up repeat Prograf level. Avoid nephrotoxins. Morning labs pending.
[2022-09-07] MEDS: HEPARIN SODIUM,PORCINE/PF 5,000 UNIT/0.5 ML SYRINGE SQ SCH ×2 (09:39→21:13)
[2022-09-07] MEDS: FAMOTIDINE 20 MG TAB PO SCH ×2 (09:39→21:13)
[2022-09-07] MEDS: TACROLIMUS 0.5 MG CAP PO SCH ×2 (09:40→21:13)
[2022-09-07] MEDS: ASPIRIN 81 MG PO SCH (09:40)
[2022-09-07 11:23] LABS: Glucose,Whole Blood 105 mg/dL (70-110)
[2022-09-07 11:31] LABS: African American GFR (CKD) 80.8 (60.0-200.0); Anion Gap 10.9 mmol/L (10.00-18.00); BUN/Creat Ratio 29.9 Ratio (12.00-20.00); Blood Urea Nitrogen 30.8 mg/dL (9.0-27.0); Calcium 8.5 mg/dL (8.7-10.3); Carbon Dioxide 24.7 mmol/L (20.0-27.5); Magnesium 1.9 mg/dL (1.5-2.4); Non-African American GFR(CKD) 69.7 (60.0-200.0); Potassium 4.1 mmol/L (3.5-5.5)
[2022-09-07] MEDS: ERTAPENEM 1 GM in SODIUM CHLORIDE 0.9% 50 ML IVPB SCH (12:24)
[2022-09-07] MEDS: LINEZOLID 600 MG in DEXTROSE/WATER 1 300ML.BAG IVPB SCH (13:04)
--- NOTE | 2022-09-07 15:39 | FL ---
Modified barium swallow. HISTORY: Dysphagia. Modified barium swallow was performed with the department of speech pathology. The patient was prese nted with various consistencies of barium. There is no evidence for aspiration or penetration. Full report is to follow from the department of speech pathology. Impression: Normal study.
[2022-09-07] MEDS ORDERED: Magnesium Replacement Protocol 1 EACH MISC MISCELLANE PRN (15:49)
--- NOTE | 2022-09-07 15:53 | P.PN ---
Subjective Progress Note Date: 09/07/22 This is a 76-year-old male who was recently admitted with multiple medical issues including sepsis with septic shock and acute CVA and is being closely monitored. Patient is maintained in the ICU and is a downgrade waiting a bed on [facility]. Patient is maintained on tube feeds and tolerating and recommend to continue with aspiration precautions with head of the bed elevated 30-45 at all times and monitoring closely for residuals. Multiple medical consultations following including infectious disease and patient is maintained on IV antibiotics. Patient is afebrile and is talking although delayed but appears to be alert and oriented and understanding. Patient denies any chest pain or shortness of breath. Patient reports no pain at this time. Recommend PT/OT therapy daily and working on possible ECF. 09/06/2022 Patient is seen today and being followed by nephrology and infectious disease. Patient is continued on IV lasix and also antibiotics. Kidney functions improving and will discuss transition to oral. Recommend repeat labs. Family looking at ECF choices and touring them with case management following. Consult placed for IPR at [facility] with Dr. Perez as well. Patient is maximum assistance and extremely weak. Peg tube functioning and tolerating. Afebrile and denies chest pain or shortness of breath. Reports he feels well. 09/07/2022 Patient Is seen in follow-up this morning feeling well being followed by nephrology along with infectious disease. Patient is maintained on Zyvox along with Invanz and most recent blood cultures are negative. Catheter tip culture was negative and sputum culture finalized with MRSA. Patient continues with fecal management system with stools likely secondary to tube feedings as C. diff testing was negative 2 will reorder and also change the Imodium to scheduled. Family reviewing ECF facilities and working with case management of possible places they agree to. Patient is afebrile. Currently no reports of shortness of breath and on room air. Patient is also continued on dexamethasone taper and will continue. Speech therapy is also following and patient is scheduled to undergo a modified barium swallow study today. Continue tube feedings and aspiration precautions. Review of systems: unable to completely obtain as patient is slow to respond All medications have been reviewed PHYSICAL EXAMINATION: GENERAL: The patient is alert and oriented x3, Well developed, well nourished. HEENT: Pupils are round and equally reacting to light. EOMI. no scleral icterus. No conjunctival pallor. Normocephalic, atraumatic. No pharyngeal erythema. No thyromegaly. CARDIOVASCULAR: S1 and S2 muffled PULMONARY: diminished breath sounds bilaterally with no wheezing or rhonchi noted. ABDOMEN: soft. Nontender on exam. obese. non-distended, normoactive bowel sounds. No palpable organomegaly. MUSCULOSKELETAL: No joint swelling or deformity. EXTREMITIES: No cyanosis, clubbing, or pedal edema. NEUROLOGICAL: Gross neurological examination did not reveal any focal deficits. Left arm with some strength, lower extremities 1/5 Diffuse weakness SKIN: No rashes. Assessment: Acute septic shock, severe sepsis, secondary to Proteus mirabilis urinary tract infection, present on admission Acute ischemic infarct left parietal area Acute hypoxic respiratory failure Chronic kidney disease, stage II MRSA in the sputum Gastroesophageal reflux disease Hypertension Osteoarthritis Cryptogenic liver with jaundice and has had 2 past liver transplants follows at [facility] GI prophylaxis DVT prophylaxis Full code Plan: Recommend to continue with current medications and management of multiple medical consultations following. Patient is maintained on tube feeds and monitor for residuals. Speech therapy following and plan is for modified barium swallow study today. Recommend aspiration precautions with head of the bed elevated 30- 45 at all times and monitoring residuals closely. Recommend PT/OT therapy emanuel ly and case management is following working on possible ECF and family making choices of approved facilities and following with case management. Pulmonary has cleared the patient for discharge. Nephrology following and continued on IV lasix, possible transition to oral. Recommend continue with antibiotics and will discuss with infectious disease about possible IV antibiotics in the outpatient setting. Patient continues with fecal management system and Imodium was on as needed and will make scheduled as patient continues to have loose stools and C. diff testing was negative 2. Given patient has been on antibiotics since admission will reorder C. diff which is pending at this time. Due to multiple complex medical issues, prognosis is guarded. Further recommendations to follow based on the clinical course of the patient. The impression and plan of care has been dictated by Rosalva Hidalgo, nurse practitioner as directed. Dr. Florencio MD I have performed a history and examination and MDM of this patient, discussed the same with the dictator, and agree with the dictator's assessment and plan as written ,documented as a scribe. Based on total visit time, I have performed more than 50% of the visit. Any additional findings or plans will be noted. Objective - Vital Signs Vital signs: Vital Signs Temp 98.3 F 09/07/22 13:27 Pulse 80 09/07/22 15:38 Resp 16 09/07/22 15:38 BP 145/54 09/07/22 13:27 Pulse Ox 98 09/07/22 08:00 FiO2 21 09/05/22 20:20 Intake & Output 09/06/22 09/07/22 09/07/22 18:59 06:59 18:59 Intake Total 1180 600 Output Total 2350 2150 Balance -1170 -2150 600 Weight 102.5 kg Intake: Intake, IV Titration 0 Amount Lactated Ringers 1,000 ml 0 @ 0 mls/hr IV .[employer] ONE Rx#:[id number] Tube Feeding 1000 600 Other 180 Output: Urine 1850 2000 Stool 500 150 Other: Voiding Method Indwelling Catheter Indwelling Catheter Indwelling Catheter ABP, PAP, CO, CI - Last Documented Arterial Blood Pressure 151/46 - Labs CBC & Chem 7: 09/05/22 03:24 09/07/22 06:02 Labs: Abnormal Lab Results - Last 24 Hours (Table) 09/06/22 09/06/22 09/06/22 Range/Units 18:28 20:24 23:48 BUN (9.0-27.0) mg/dL BUN/Creatinine Ratio (12.00-20.00) Ratio POC Glucose (mg/dL) 111 H 131 H 117 H (70-110) mg/dL Calcium (8.7-10.3) mg/dL 09/07/22 Range/Units 06:02 BUN 30.8 H (9.0-27.0) mg/dL BUN/Creatinine Ratio 29.90 H (12.00-20.00) Ratio POC Glucose (mg/dL) (70-110) mg/dL Calcium 8.5 L (8.7-10.3) mg/dL
[2022-09-07 16:34] LABS: Glucose,Whole Blood 127 mg/dL (70-110)
[2022-09-07] MEDS: MAGNESIUM SULFATE-D5W PMX 1 GM in DEXTROSE/WATER 1 100ML.BAG IVPB SCH ×2 (17:37→18:36)
[2022-09-07] MEDS: LOPERAMIDE 2 MG CAP PO SCH ×2 (17:37→21:13)
[2022-09-07] MEDS: LATANOPROST 0.005% OPHTH DROPS 2.5 ML BTL BOTH EYES SCH (21:13)
[2022-09-07 21:17] LABS: Glucose,Whole Blood 115 mg/dL (70-110)
[2022-09-07 23:51] LABS: Glucose,Whole Blood 132 mg/dL (70-110)
[2022-09-08] MEDS: INSULIN ASPART (NovoLOG) 100 UNIT/ML VIAL SQ SCH ×5 (00:01→23:48)
[2022-09-08] MEDS: LINEZOLID 600 MG in DEXTROSE/WATER 1 300ML.BAG IVPB SCH ×2 (00:02→13:30)
[2022-09-08] MEDS: FUROSEMIDE 10 MG/ML 2 ML VIAL IV SCH ×2 (05:42→17:33)
[2022-09-08 06:11] LABS: Glucose,Whole Blood 127 mg/dL (70-110)
[2022-09-08] MEDS: IPRATROPIUM-ALBUTEROL 3 ML NEB INHALATION SCH ×4 (08:48→20:18)
--- NOTE | 2022-09-08 09:43 | P.PN ---
Subjective Patient is seen in follow for acute kidney injury. Renal function fairly stable. Nonoliguric. On IV Lasix. Nonoliguric. Receiving tube feeds. Hemodynamically stable. On nasal cannula. Resting in bed. No changes overnight. Vital signs are stable. General: Resting in bed. HEENT: On nasal cannula. LUNGS: Breath sounds decreased. HEART: Regular rate and rhythm. ABDOMEN: Soft, no distention. PEG tube noted. EXTREMITITES: 1+ edema. Objective - Vital Signs Vital signs: Vital Signs Temp 97.4 F L 09/08/22 08:00 Pulse 81 09/08/22 08:55 Resp 17 09/08/22 08:00 BP 119/48 09/08/22 08:00 Pulse Ox 98 09/08/22 08:50 FiO2 21 09/05/22 20:20 Intake & Output 09/07/22 09/08/22 09/08/22 18:59 06:59 18:59 Intake Total 600 1125 Output Total 2950 Balance 600 -1825 Intake: IV 300 Linezolid 600 mg In 300 Dextrose/Water 1 300ml. bag @ 150 mls/hr IVPB Q12HR@0000,1200 [facility] Rx#: [id number] Tube Feeding 600 825 Output: Urine 2350 Stool 600 Other: Voiding Method Indwelling Catheter Indwelling Catheter ABP, PAP, CO, CI - Last Documented Arterial Blood Pressure 151/46 - Labs CBC & Chem 7: 09/05/22 03:24 09/07/22 06:02 Labs: Abnormal Lab Results - Last 24 Hours (Table) 09/06/22 09/07/22 09/07/22 Range/Units 07:07 06:02 16:33 BUN 30.8 H (9.0-27.0) mg/dL BUN/Creatinine Ratio 29.90 H (12.00-20.00) Ratio POC Glucose (mg/dL) 127 H (70-110) mg/dL Calcium 8.5 L (8.7-10.3) mg/dL Tacrolimus <1.5 L (5.0-20.0) ng/mL 09/07/22 09/07/22 09/08/22 Range/Units 21:16 23:49 06:09 BUN (9.0-27.0) mg/dL BUN/Creatinine Ratio (12.00-20.00) Ratio POC Glucose (mg/dL) 115 H 132 H 127 H (70-110) mg/dL Calcium (8.7-10.3) mg/dL Tacrolimus (5.0-20.0) ng/mL Assessment and Plan Plan: Assessment: 1. Acute kidney injury secondary to ATN secondary to septic shock and contrast- induced acute kidney injury. Patient received IV contrast on 08/23/2022. Creatinine was 1.74 on admission and peaked at 2.78 - 1.0 yesterday. Nonoliguric. No hydronephrosis noted on CAT scan. 2. Chronic kidney disease stage IIIa with baseline creatinine in the range of 1.2-1.5 secondary to nephrosclerosis and long-term calcineurin inhibitor use. 3. 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 4. Metabolic acidosis secondary to acute kidney injury, lactic acidosis and IV fluids. Resolved. 5. 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 Neurology following. 6. Septic shock secondary to Proteus UTI and bacteremia on antibiotics. Off vasopressors. 7. Volume overload. Improving with diuresis. Plan: Maintain IV Lasix. Transition to oral diuretics upon discharge. Maintain home antirejection meds. Prograf level still low as of 09/06/2022. Increase dose of Prograf to 1 mg twice daily. Levels will be repeated again in 2-3 days. Avoid nephrotoxins. Morning labs pending.
[2022-09-08] MEDS: NYSTATIN 100,000 UNIT/ML SUSP 500,000 UNIT/5 ML CUP PO SCH ×4 (10:05→20:48)
[2022-09-08] MEDS: FAMOTIDINE 20 MG TAB PO SCH (10:06)
[2022-09-08] MEDS: ASPIRIN 81 MG PO SCH (10:06)
[2022-09-08] MEDS: TACROLIMUS 0.5 MG CAP PO SCH (10:06)
[2022-09-08] MEDS: LOPERAMIDE 2 MG CAP PO SCH ×2 (10:07→12:43)
[2022-09-08] MEDS: HEPARIN SODIUM,PORCINE/PF 5,000 UNIT/0.5 ML SYRINGE SQ SCH ×2 (10:33→20:48)
[2022-09-08 11:27] LABS: African American GFR (CKD) 83.8 (60.0-200.0); Anion Gap 10.2 mmol/L (10.00-18.00); BUN/Creat Ratio 30.5 Ratio (12.00-20.00); Blood Urea Nitrogen 30.5 mg/dL (9.0-27.0); Calcium 8.7 mg/dL (8.7-10.3); Carbon Dioxide 26.8 mmol/L (20.0-27.5); Magnesium 2.1 mg/dL (1.5-2.4); Non-African American GFR(CKD) 72.3 (60.0-200.0); Potassium 3.9 mmol/L (3.5-5.5)
[2022-09-08 11:57] LABS: Glucose,Whole Blood 121 mg/dL (70-110)
[2022-09-08] MEDS: ERTAPENEM 1 GM in SODIUM CHLORIDE 0.9% 50 ML IVPB SCH (12:43)
[2022-09-08] MEDS ORDERED: PANTOPRAZOLE 40 MG TABLET PO STA (14:49)
--- NOTE | 2022-09-08 14:52 | P.PN ---
Subjective Progress Note Date: 09/08/22 This is a 76-year-old male who was recently admitted with multiple medical issues including sepsis with septic shock and acute CVA and is being closely monitored. Patient is maintained in the ICU and is a downgrade waiting a bed on [facility]. Patient is maintained on tube feeds and tolerating and recommend to continue with aspiration precautions with head of the bed elevated 30-45 at all times and monitoring closely for residuals. Multiple medical consultations following including infectious disease and patient is maintained on IV antibiotics. Patient is afebrile and is talking although delayed but appears to be alert and oriented and understanding. Patient denies any chest pain or shortness of breath. Patient reports no pain at this time. Recommend PT/OT therapy daily and working on possible ECF. 09/06/2022 Patient is seen today and being followed by nephrology and infectious disease. Patient is continued on IV lasix and also antibiotics. Kidney functions improving and will discuss transition to oral. Recommend repeat labs. Family looking at ECF choices and touring them with case management following. Consult placed for IPR at [facility] with Dr. Perez as well. Patient is maximum assistance and extremely weak. Peg tube functioning and tolerating. Afebrile and denies chest pain or shortness of breath. Reports he feels well. 09/07/2022 Patient Is seen in follow-up this morning feeling well being followed by nephrology along with infectious disease. Patient is maintained on Zyvox along with Invanz and most recent blood cultures are negative. Catheter tip culture was negative and sputum culture finalized with MRSA. Patient continues with fecal management system with stools likely secondary to tube feedings as C. diff testing was negative 2 will reorder and also change the Imodium to scheduled. Family reviewing ECF facilities and working with case management of possible places they agree to. Patient is afebrile. Currently no reports of shortness of breath and on room air. Patient is also continued on dexamethasone taper and will continue. Speech therapy is also following and patient is scheduled to undergo a modified barium swallow study today. Continue tube feedings and aspiration precautions. 09/08/2022 Patient is seen in follow-up today lethargic although arousable. Patient maintained on IV antibiotics with nephrology and infectious disease following. Patient continues with fecal management system with loose stools although appears less than yesterday will make Imodium scheduled daily and attempt to discontinue fecal management system. Will also add Questran via PEG tube to bulk up the stools. Case management following closely as patient family is working on an ECF they are agreeable with and will follow up with case management when they come up with an acceptable facility. Patient is afebrile currently being followed by speech underwent a swallow study yesterday. Review of systems: unable to completely obtain as patient is slow to respond and lethargic All medications have been reviewed PHYSICAL EXAMINATION: GENERAL: The patient is alert and oriented x3, Well developed, well nourished. HEENT: Pupils are round and equally reacting to light. EOMI. no scleral icterus. No conjunctival pallor. Normocephalic, atraumatic. No pharyngeal erythema. No thyromegaly. CARDIOVASCULAR: S1 and S2 muffled PULMONARY: diminished breath sounds bilaterally with no wheezing or rhonchi noted. ABDOMEN: soft. Nontender on exam. obese. non-distended, normoactive bowel sounds. No palpable organomegaly. MUSCULOSKELETAL: No joint swelling or deformity. EXTREMITIES: No cyanosis, clubbing, or pedal edema. NEUROLOGICAL: Gross neurological examination did not reveal any focal deficits. Left arm with some strength, lower extremities 1/5 Diffuse weakness SKIN: No rashes. 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 Patient is maintained on tube feeds and monitor for residuals. Speech therapy following and plan is for modified barium swallow currently remains nothing by mouth. Recommend aspiration precautions with head of the bed elevated 30-45 at all times and monitoring residuals closely. Recommend PT/OT therapy daily and case management is following working on possible ECF and family making choices of approved facilities and following with case management. Pulmonary has cleared the patient for discharge. Nephrology following and continued on IV lasix, will transition to oral on discharge. Recommend continue with antibiotics and will discuss with infectious disease about possible IV antibiotics in the outpatient setting. Patient continues with fecal management system and Imodium was on as needed and have made it scheduled as patient continues to have loose stools and C. diff testing was negative 2. Recommend removing fecal management system. Due to multiple complex medical issues, prognosis is guarded. Further recommendations to follow based on the clinical course of the patient. The impression and plan of care has been dictated by Rosalva Hidalgo, nurse practitioner as directed. Dr. Florencio MD I have performed a history and examination and MDM of this patient, discussed the same with the dictator, and agree with the dictator's assessment and plan as written ,documented as a scribe. Based on total visit time, I have performed more than 50% of the visit. Any additional findings or plans will be noted. Objective - Vital Signs Vital signs: Vital Signs Temp 97.4 F L 09/08/22 08:00 Pulse 81 09/08/22 12:27 Resp 17 09/08/22 08:00 BP 119/48 09/08/22 08:00 Pulse Ox 98 09/08/22 08:50 FiO2 21 09/05/22 20:20 Intake & Output 09/07/22 09/08/22 09/08/22 18:59 06:59 18:59 Intake Total 600 1125 Output Total 2950 1650 Balance 600 -1825 -1650 Intake: IV 300 Linezolid 600 mg In 300 Dextrose/Water 1 300ml. bag @ 150 mls/hr IVPB Q12HR@0000,1200 [facility] Rx#: [id number] Tube Feeding 600 825 Output: Urine 2350 750 Stool 600 900 Other: Voiding Method Indwelling Catheter Indwelling Catheter Indwelling Catheter ABP, PAP, CO, CI - Last Documented Arterial Blood Pressure 151/46 - Labs CBC & Chem 7: 09/05/22 03:24 09/08/22 06:27 Labs: Abnormal Lab Results - Last 24 Hours (Table) 09/06/22 09/07/22 09/07/22 Range/Units 07:07 16:33 21:16 BUN (9.0-27.0) mg/dL BUN/Creatinine Ratio (12.00-20.00) Ratio POC Glucose (mg/dL) 127 H 115 H (70-110) mg/dL Tacrolimus <1.5 L (5.0-20.0) ng/mL 09/07/22 09/08/22 09/08/22 Range/Units 23:49 06:09 06:27 BUN 30.5 H (9.0-27.0) mg/dL BUN/Creatinine Ratio 30.50 H (12.00-20.00) Ratio POC Glucose (mg/dL) 132 H 127 H (70-110) mg/dL Tacrolimus (5.0-20.0) ng/mL 09/08/22 Range/Units 11:55 BUN (9.0-27.0) mg/dL BUN/Creatinine Ratio (12.00-20.00) Ratio POC Glucose (mg/dL) 121 H (70-110) mg/dL Tacrolimus (5.0-20.0) ng/mL
[2022-09-08] MEDS ORDERED: MULTIVITAMINS, THERA 1 EACH TAB PO SCH (15:00)
[2022-09-08] MEDS: FOLIC ACID 1 MG TAB PO SCH (17:32)
[2022-09-08] MEDS: THIAMINE 100 MG TAB PO SCH (17:32)
[2022-09-08] MEDS: MULTIVITAMINS, THERA LIQUID 237 ML BOTTLE PO SCH (17:33)
[2022-09-08 18:02] LABS: Glucose,Whole Blood 144 mg/dL (70-110)
[2022-09-08 20:40] LABS: Glucose,Whole Blood 130 mg/dL (70-110)
[2022-09-08] MEDS: LATANOPROST 0.005% OPHTH DROPS 2.5 ML BTL BOTH EYES SCH (20:48)
[2022-09-08] MEDS: TACROLIMUS 1 MG CAP PO SCH (20:48)
[2022-09-08] MEDS: LINEZOLID 600 MG TAB PEG/G-TUBE SCH (23:48)
[2022-09-08 23:53] LABS: Glucose,Whole Blood 119 mg/dL (70-110)
[2022-09-09] MEDS: FUROSEMIDE 10 MG/ML 2 ML VIAL IV SCH (05:37)
[2022-09-09 05:43] LABS: Glucose,Whole Blood 145 mg/dL (70-110)
[2022-09-09] MEDS: INSULIN ASPART (NovoLOG) 100 UNIT/ML VIAL SQ SCH ×3 (05:43→17:10)
[2022-09-09] MEDS: IPRATROPIUM-ALBUTEROL 3 ML NEB INHALATION SCH ×4 (08:51→19:19)
[2022-09-09] MEDS ORDERED: LOPERAMIDE 2 MG CAP PO SCH (09:00)
--- NOTE | 2022-09-09 09:49 | P.PN ---
Subjective Progress Note Date: 09/07/22 Principal diagnosis: Bacteremia Patient is a 76-year-old -Spanish male past medical history significant for liver failure status post liver transplant or redness of his medication presented to hospital generalized weakness did have a positive UA concerning for UTI patient subsequently have a positive blood culture. Patient has been extubated 08/29/2022 On today's evaluation that is 09/07/2022, the patient remains to be afebrile, the patient is breathing comfortably room air , the patient denies any chest pain or shortness with occasional cough but no sputum production, no abdominal pain and diarrhea has slowed down with the nursing staff Objective - Vital Signs Vital signs: Vital Signs Temp 98.3 F 09/07/22 13:27 Pulse 81 09/07/22 13:27 Resp 16 09/07/22 13:27 BP 145/54 09/07/22 13:27 Pulse Ox 98 09/07/22 08:00 FiO2 21 09/05/22 20:20 Intake & Output 09/06/22 09/07/22 09/07/22 18:59 06:59 18:59 Intake Total 1180 600 Output Total 2350 2150 Balance -1170 -2150 600 Weight 102.5 kg Intake: Intake, IV Titration 0 Amount Lactated Ringers 1,000 ml 0 @ 0 mls/hr IV .Phase III [facility] Rx#:[id number] Tube Feeding 1000 600 Other 180 Output: Urine 1850 2000 Stool 500 150 Other: Voiding Method Indwelling Catheter Indwelling Catheter Indwelling Catheter ABP, PAP, CO, CI - Last Documented Arterial Blood Pressure 151/46 - Exam GENERAL DESCRIPTION: An elderly male lying in bed in no distress RESPIRATORY SYSTEM: Unlabored breathing , decreased breath sounds at bases HEART: S1 S2 regular rate and rhythm , ABDOMEN: Soft , no tenderness EXTREMITIES: No edema feet - Labs CBC & Chem 7: 09/05/22 03:24 09/08/22 06:27 Labs: Abnormal Lab Results - Last 24 Hours (Table) 09/06/22 09/06/22 09/06/22 Range/Units 18:28 20:24 23:48 BUN (9.0-27.0) mg/dL BUN/Creatinine Ratio (12.00-20.00) Ratio POC Glucose (mg/dL) 111 H 131 H 117 H (70-110) mg/dL Calcium (8.7-10.3) mg/dL 09/07/22 Range/Units 06:02 BUN 30.8 H (9.0-27.0) mg/dL BUN/Creatinine Ratio 29.90 H (12.00-20.00) Ratio POC Glucose (mg/dL) (70-110) mg/dL Calcium 8.5 L (8.7-10.3) mg/dL Assessment and Plan (1) Bacteremia Current Visit: Yes Status: Acute Code(s): R78.81 - BACTEREMIA SNOMED Code(s): 2888203 (2) UTI (urinary tract infection) Current Visit: No Status: Acute Code(s): N39.0 - URINARY TRACT INFECTION, SITE NOT SPECIFIED SNOMED Code(s): 83276472 Plan: 1patient presented to hospital with abdominal pain and nausea and vomiting in this patient did have a positive UA CT abdominal pelvis did not show any acute abnormality abdominal soft medical examination patient did have a positive UA concerning for symptomatic urinary tract infection likely from enteric gram- negative pathogen, patient subsequently did have slight worsening of his respiratory status and concern for possible aspiration pneumonitis. 2 Patient urine culture with Proteus which is a sensitive pathogen however blood culture showing ESBL proteus , Patient has continued improvement and continue with Invanz to finish his 2-week course of therapy, patient is currently on day 11 out of 14 of the treatment 3patient with MRSA pneumonia in this patient seem to have shown some clinical improvement respiratory status has improved , patient to continue Zyvox day #10 out of 14 4-patient with diarrhea stool for C. diff has been negative 2 patient to continue with Imodium and monitor clinical course closely Time with Patient: Less than 30
--- NOTE | 2022-09-09 09:51 | P.PN ---
Subjective Progress Note Date: 09/08/22 Principal diagnosis: Bacteremia Patient is a 76-year-old -Bhutanese male past medical history significant for liver failure status post liver transplant or redness of his medication presented to hospital generalized weakness did have a positive UA concerning for UTI patient subsequently have a positive blood culture. Patient has been extubated 08/29/2022 On today's evaluation that is 09/08/2022, the patient continues to be afebrile, the patient is breathing comfortably room air , the patient denies any chest pain or shortness of breath, the patient denies significant cough or sputum production, no abdominal pain and diarrhea has slowed down Objective - Vital Signs Vital signs: Vital Signs Temp 97.4 F L 09/08/22 08:00 Pulse 81 09/08/22 12:27 Resp 17 09/08/22 08:00 BP 119/48 09/08/22 08:00 Pulse Ox 98 09/08/22 08:50 FiO2 21 09/05/22 20:20 Intake & Output 09/07/22 09/08/22 09/08/22 18:59 06:59 18:59 Intake Total 600 1125 Output Total 2950 1650 Balance 600 -1825 -1650 Intake: IV 300 Linezolid 600 mg In 300 Dextrose/Water 1 300ml. bag @ 150 mls/hr IVPB Q12HR@0000,1200 [facility] Rx#: [id number] Tube Feeding 600 825 Output: Urine 2350 750 Stool 600 900 Other: Voiding Method Indwelling Catheter Indwelling Catheter Indwelling Catheter ABP, PAP, CO, CI - Last Documented Arterial Blood Pressure 151/46 - Exam GENERAL DESCRIPTION: An elderly male lying in bed in no distress RESPIRATORY SYSTEM: Unlabored breathing , decreased breath sounds at bases HEART: S1 S2 regular rate and rhythm , ABDOMEN: Soft , no tenderness EXTREMITIES: No edema feet - Labs CBC & Chem 7: 09/05/22 03:24 09/08/22 06:27 Labs: Abnormal Lab Results - Last 24 Hours (Table) 09/06/22 09/07/22 09/07/22 Range/Units 07:07 16:33 21:16 BUN (9.0-27.0) mg/dL BUN/Creatinine Ratio (12.00-20.00) Ratio POC Glucose (mg/dL) 127 H 115 H (70-110) mg/dL Tacrolimus <1.5 L (5.0-20.0) ng/mL 09/07/22 09/08/22 09/08/22 Range/Units 23:49 06:09 06:27 BUN 30.5 H (9.0-27.0) mg/dL BUN/Creatinine Ratio 30.50 H (12.00-20.00) Ratio POC Glucose (mg/dL) 132 H 127 H (70-110) mg/dL Tacrolimus (5.0-20.0) ng/mL 09/08/22 Range/Units 11:55 BUN (9.0-27.0) mg/dL BUN/Creatinine Ratio (12.00-20.00) Ratio POC Glucose (mg/dL) 121 H (70-110) mg/dL Tacrolimus (5.0-20.0) ng/mL Assessment and Plan (1) Bacteremia Current Visit: Yes Status: Acute Code(s): R78.81 - BACTEREMIA SNOMED Code(s): 3597823 (2) UTI (urinary tract infection) Current Visit: No Status: Acute Code(s): N39.0 - URINARY TRACT INFECTION, SI TE NOT SPECIFIED SNOMED Code(s): 17524436 Plan: 1patient presented to hospital with abdominal pain and nausea and vomiting in this patient did have a positive UA CT abdominal pelvis did not show any acute abnormality abdominal soft medical examination patient did have a positive UA concerning for symptomatic urinary tract infection likely from enteric gram- negative pathogen, patient subsequently did have slight worsening of his respiratory status and concern for possible aspiration pneumonitis. 2 Patient urine culture with Proteus which is a sensitive pathogen however blood culture showing ESBL proteus , Patient has continued improvement and continue with Invanz to finish his 2-week course of therapy, patient is currently on day 12 out of 14 of the treatment 3patient with MRSA pneumonia in this patient seem to have shown some clinical improvement respiratory status has improved , patient to continue Zyvox day #11 out of 14, which will be switched over to by mouth or down the PEG tube 4-patient with diarrhea stool for C. diff has been negative 2 patient to continue with Imodium and monitor clinical course closely Daughter at the bedside questions were answered Time with Patient: Less than 30
--- NOTE | 2022-09-09 10:18 | P.PN ---
Subjective Patient is seen in follow for acute kidney injury. Renal function fairly stable. Nonoliguric. On IV Lasix. Nonoliguric. Receiving tube feeds. Hemodynamically stable. On nasal cannula. Resting in bed. No changes overnight. Vital signs are stable. General: Resting in bed. HEENT: On nasal cannula. LUNGS: Breath sounds decreased. HEART: Regular rate and rhythm. ABDOMEN: Soft, no distention. PEG tube noted. EXTREMITITES: 1+ edema. Objective - Vital Signs Vital signs: Vital Signs Temp 98.5 F 09/09/22 07:44 Pulse 84 09/09/22 09:04 Resp 16 09/09/22 07:44 BP 121/52 09/09/22 07:44 Pulse Ox 98 09/09/22 08:53 FiO2 21 09/05/22 20:20 Intake & Output 09/08/22 09/09/22 09/09/22 18:59 06:59 18:59 Intake Total 900 Output Total 2550 900 Balance -2550 0 Intake: Oral 0 Tube Feeding 900 Output: Urine 1650 900 Uretheral (Price) 900 Stool 900 Other: Voiding Method Indwelling Catheter Indwelling Catheter # Bowel Movements 1 ABP, PAP, CO, CI - Last Documented Arterial Blood Pressure 151/46 - Labs CBC & Chem 7: 09/05/22 03:24 09/08/22 06:27 Labs: Abnormal Lab Results - Last 24 Hours (Table) 09/08/22 09/08/22 09/08/22 Range/Units 06:27 11:55 18:00 BUN 30.5 H (9.0-27.0) mg/dL BUN/Creatinine Ratio 30.50 H (12.00-20.00) Ratio POC Glucose (mg/dL) 121 H 144 H (70-110) mg/dL 09/08/22 09/08/22 09/09/22 Range/Units 20:39 23:48 05:41 BUN (9.0-27.0) mg/dL BUN/Creatinine Ratio (12.00-20.00) Ratio POC Glucose (mg/dL) 130 H 119 H 145 H (70-110) mg/dL Assessment and Plan Plan: Assessment: 1. Acute kidney injury secondary to ATN secondary to septic shock and contrast- induced acute kidney injury. Patient received IV contrast on 08/23/2022. Creatinine was 1.74 on admission and peaked at 2.78 - 1.0 yesterday. Nonoliguric. No hydronephrosis noted on CAT scan. 2. Chronic kidney disease stage IIIa with baseline creatinine in the range of 1.2-1.5 secondary to nephrosclerosis and long-term calcineurin inhibitor use. 3. 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 4. Metabolic acidosis secondary to acute kidney injury, lactic acidosis and IV fluids. Resolved. 5. 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 Neurology following. 6. Septic shock secondary to Proteus UTI and bacteremia on antibiotics. Off vasopressors. 7. Volume overload. Improving with diuresis. Plan: Change Lasix to oral 20 mg twice daily. Maintain home antirejection meds. Prograf level still low as of 09/06/2022. Increased dose of Prograf to 1 mg twice daily on 09/08/2022. Level will be repeated again in 2-3 days. Avoid nephrotoxins. Repeat BMP and magnesium level to 3 days postdischarge. Follow up outpatient in 1 week.
[2022-09-09] MEDS: TACROLIMUS 1 MG CAP PO SCH ×2 (11:05→20:43)
[2022-09-09] MEDS: LINEZOLID 600 MG TAB PEG/G-TUBE SCH (11:05)
[2022-09-09] MEDS: THIAMINE 100 MG TAB PO SCH (11:05)
[2022-09-09] MEDS: FOLIC ACID 1 MG TAB PO SCH (11:05)
[2022-09-09] MEDS: ASPIRIN 81 MG PO SCH (11:05)
[2022-09-09] MEDS: MULTIVITAMINS, THERA LIQUID 237 ML BOTTLE PO SCH (11:06)
[2022-09-09] MEDS: HEPARIN SODIUM,PORCINE/PF 5,000 UNIT/0.5 ML SYRINGE SQ SCH ×2 (11:06→20:42)
[2022-09-09] MEDS: NYSTATIN 100,000 UNIT/ML SUSP 500,000 UNIT/5 ML CUP PO SCH ×4 (11:07→20:43)
[2022-09-09 11:48] LABS: Glucose,Whole Blood 109 mg/dL (70-110)
--- NOTE | 2022-09-09 12:10 | P.PN ---
Subjective Progress Note Date: 09/09/22 76-year-old male who was recently admitted with multiple medical issues including sepsis with septic shock and acute CVA and is being closely monitored. Patient is maintained in the ICU and is a downgrade waiting a bed on [facility]. Patient is maintained on tube feeds and tolerating and recommend to continue with aspiration precautions with head of the bed elevated 30-45 at all times and monitoring closely for residuals. Multiple medical consultations following including infectious disease and patient is maintained on IV antibiotics. Patient is afebrile and is talking although delayed but appears to be alert and oriented and understanding. Patient denies any chest pain or shortness of breath. Patient reports no pain at this time. Recommend PT/OT therapy daily and working on possible ECF. Objective - Vital Signs Vital signs: Vital Signs Temp 98.5 F 09/09/22 07:44 Pulse 84 09/09/22 09:04 Resp 16 09/09/22 07:44 BP 121/52 09/09/22 07:44 Pulse Ox 98 09/09/22 08:53 FiO2 21 09/05/22 20:20 Intake & Output 09/08/22 09/09/22 09/09/22 18:59 06:59 18:59 Intake Total 900 Output Total 2550 900 Balance -2550 0 Intake: Oral 0 Tube Feeding 900 Output: Urine 1650 900 Uretheral (Price) 900 Stool 900 Other: Voiding Method Indwelling Catheter Indwelling Catheter # Bowel Movements 1 ABP, PAP, CO, CI - Last Documented Arterial Blood Pressure 151/46 - Exam GENERAL: The patient is alert and oriented x3, Well developed, well nourished. HEENT: Pupils are round and equally reacting to light. EOMI. no scleral icterus. No conjunctival pallor. Normocephalic, atraumatic. No pharyngeal erythema. No thyromegaly. CARDIOVASCULAR: S1 and S2 muffled PULMONARY: diminished breath sounds bilaterally with no wheezing or rhonchi noted. ABDOMEN: soft. Nontender on exam. obese. non-distended, normoactive bowel sounds. No palpable organomegaly. MUSCULOSKELETAL: No joint swelling or deformity. EXTREMITIES: No cyanosis, clubbing, or pedal edema. NEUROLOGICAL: Gross neurological examination did not reveal any focal deficits. Left arm with some strength, lower extremities 1/5 Diffuse weakness SKIN: No rashes. - Labs CBC & Chem 7: 09/05/22 03:24 09/08/22 06:27 Labs: Abnormal Lab Results - Last 24 Hours (Table) 09/08/22 09/08/22 09/08/22 Range/Units 06:27 11:55 18:00 BUN 30.5 H (9.0-27.0) mg/dL BUN/Creatinine Ratio 30.50 H (12.00-20.00) Ratio POC Glucose (mg/dL) 121 H 144 H (70-110) mg/dL 09/08/22 09/08/22 09/09/22 Range/Units 20:39 23:48 05:41 BUN (9.0-27.0) mg/dL BUN/Creatinine Ratio (12.00-20.00) Ratio POC Glucose (mg/dL) 130 H 119 H 145 H (70-110) mg/dL Assessment and Plan Assessment: Acute septic shock, severe sepsis, secondary to Proteus mirabilis urinary tract infection, present on admission Acute ischemic infarct left parietal area Acute hypoxic respiratory failure Chronic kidney disease, stage II MRSA in the sputum Gastroesophageal reflux disease Hypertension Osteoarthritis 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 Patient is maintained on tube feeds and monitor for residuals. Speech therapy following and plan is for modified barium swallow currently remains nothing by mouth. Recommend aspiration precautions with head of the bed elevated 30-45 at all times and monitoring residuals closely. Recommend PT/OT therapy daily and case management is following working on possible ECF and family making choices of approved facilities and following with case management. Pulmonary has cleared the patient for discharge. Nephrology following and continued on IV lasix, will transition to oral on discharge. Recommend continue with antibiotics and will discuss with infectious disease about possible IV antibiotics in the outpatient setting. Patient continues with fecal management system and Imodium was on as needed and have made it scheduled as patient continues to have loose stools and C. diff testing was negative 2. Recommend removing fecal management system. Due to multiple complex medical issues, prognosis is guarded. Further recommendations to follow based on the clinical course of the patient.
[2022-09-09] MEDS: LOPERAMIDE 2 MG CAP PO SCH ×3 (13:18→20:44)
[2022-09-09] MEDS: ERTAPENEM 1 GM in SODIUM CHLORIDE 0.9% 50 ML IVPB SCH (13:19)
[2022-09-09] MEDS ORDERED: LIDOCAINE 2% INJ 20 MG/ML (2 ML VIAL) ONE (14:37)
[2022-09-09] MEDS ORDERED: PROPOFOL 10 MG/ML 20 ML VIAL IV ONE (14:37)
[2022-09-09 17:07] LABS: Glucose,Whole Blood 143 mg/dL (70-110)
[2022-09-09] MEDS: FUROSEMIDE 20 MG TAB PO SCH (17:11)
[2022-09-09] MEDS: LATANOPROST 0.005% OPHTH DROPS 2.5 ML BTL BOTH EYES SCH (20:42)
[2022-09-10 00:12] LABS: Glucose,Whole Blood 128 mg/dL (70-110)
[2022-09-10] MEDS: INSULIN ASPART (NovoLOG) 100 UNIT/ML VIAL SQ SCH ×5 (00:46→23:47)
[2022-09-10] MEDS: LINEZOLID 600 MG TAB PEG/G-TUBE SCH ×3 (00:47→23:47)
[2022-09-10 06:12] LABS: Glucose,Whole Blood 121 mg/dL (70-110)
[2022-09-10] MEDS: IPRATROPIUM-ALBUTEROL 3 ML NEB INHALATION SCH ×4 (07:50→20:26)
[2022-09-10] MEDS: FUROSEMIDE 20 MG TAB PO SCH ×2 (08:29→17:29)
[2022-09-10] MEDS: NYSTATIN 100,000 UNIT/ML SUSP 500,000 UNIT/5 ML CUP PO SCH ×4 (08:29→22:00)
[2022-09-10] MEDS: MULTIVITAMINS, THERA LIQUID 237 ML BOTTLE PO SCH (08:29)
[2022-09-10] MEDS: FOLIC ACID 1 MG TAB PO SCH (08:29)
[2022-09-10] MEDS: HEPARIN SODIUM,PORCINE/PF 5,000 UNIT/0.5 ML SYRINGE SQ SCH ×2 (08:29→22:00)
[2022-09-10] MEDS: ASPIRIN 81 MG PO SCH (08:30)
[2022-09-10] MEDS: TACROLIMUS 1 MG CAP PO SCH ×2 (08:30→21:59)
[2022-09-10] MEDS: LOPERAMIDE 2 MG CAP PO SCH ×3 (08:30→22:00)
[2022-09-10] MEDS: THIAMINE 100 MG TAB PO SCH (08:30)
[2022-09-10 11:22] LABS: Glucose,Whole Blood 123 mg/dL (70-110)
[2022-09-10 11:44] LABS: African American GFR (CKD) 83.8 (60.0-200.0); Anion Gap 7.1 mmol/L (10.00-18.00); BUN/Creat Ratio 34.4 Ratio (12.00-20.00); Blood Urea Nitrogen 34.4 mg/dL (9.0-27.0); Calcium 8.5 mg/dL (8.7-10.3); Carbon Dioxide 24.9 mmol/L (20.0-27.5); Magnesium 1.7 mg/dL (1.5-2.4); Non-African American GFR(CKD) 72.3 (60.0-200.0); Potassium 4.2 mmol/L (3.5-5.5)
[2022-09-10] MEDS: ERTAPENEM 1 GM in SODIUM CHLORIDE 0.9% 50 ML IVPB SCH (11:45)
[2022-09-10 16:31] LABS: Glucose,Whole Blood 137 mg/dL (70-110)
[2022-09-10] MEDS: LATANOPROST 0.005% OPHTH DROPS 2.5 ML BTL BOTH EYES SCH (22:00)
[2022-09-10 23:48] LABS: Glucose,Whole Blood 128 mg/dL (70-110)
[2022-09-10] MEDS: ONDANSETRON 4 MG/2 ML VIAL IVP PRN (23:48)
[2022-09-11 05:54] LABS: Glucose,Whole Blood 110 mg/dL (70-110)
[2022-09-11] MEDS: INSULIN ASPART (NovoLOG) 100 UNIT/ML VIAL SQ SCH ×3 (06:01→16:20)
[2022-09-11] MEDS: IPRATROPIUM-ALBUTEROL 3 ML NEB INHALATION SCH ×4 (09:02→19:26)
[2022-09-11] MEDS: NYSTATIN 100,000 UNIT/ML SUSP 500,000 UNIT/5 ML CUP PO SCH ×4 (09:07→21:47)
[2022-09-11] MEDS: MULTIVITAMINS, THERA LIQUID 237 ML BOTTLE PO SCH (09:07)
[2022-09-11] MEDS: THIAMINE 100 MG TAB PO SCH (09:07)
[2022-09-11] MEDS: FOLIC ACID 1 MG TAB PO SCH (09:07)
[2022-09-11] MEDS: ASPIRIN 81 MG PO SCH (09:24)
[2022-09-11] MEDS: TACROLIMUS 1 MG CAP PO SCH ×2 (09:24→21:52)
[2022-09-11] MEDS: FUROSEMIDE 20 MG TAB PO SCH ×2 (09:24→14:32)
[2022-09-11] MEDS: LOPERAMIDE 2 MG CAP PO SCH ×3 (09:25→21:52)
[2022-09-11] MEDS: HEPARIN SODIUM,PORCINE/PF 5,000 UNIT/0.5 ML SYRINGE SQ SCH ×2 (09:25→21:52)
--- NOTE | 2022-09-11 10:21 | P.PN ---
Subjective Patient is seen for follow-up for acute kidney injury. Transferred out of ICU No complaints today Good urine output Serum creatinine 1.0 mg/dL. sodium at 134 Maintained on pured diet and oral Lasix 20 mg twice a day. Objective - Vital Signs Vital signs: Vital Signs Temp 97.7 F 09/11/22 08:00 Pulse 80 09/11/22 09:12 Resp 16 09/11/22 08:00 BP 138/71 09/11/22 08:00 Pulse Ox 95 09/11/22 09:02 FiO2 21 09/10/22 07:51 Intake & Output 09/10/22 09/11/22 09/11/22 18:59 06:59 18:59 Output Total 1577 500 Balance -1577 -500 Output: Urine 1575 500 Stool 2 Other: Voiding Method External Catheter Indwelling Catheter External Catheter # Voids 1 # Bowel Movements 1 5 ABP, PAP, CO, CI - Last Documented Arterial Blood Pressure 151/46 - Exam Awake, comfortable Alert oriented 3 Examination of the heart S1 and S2 Bilateral breath sounds are heard, decreased breath sounds at the bases Abdomen is soft Examination lower extremities shows edema trace bilateral - Labs CBC & Chem 7: 09/05/22 03:24 09/10/22 06:46 Labs: Abnormal Lab Results - Last 24 Hours (Table) 09/10/22 09/10/22 09/10/22 Range/Units 06:46 11:20 16:29 Sodium 134 L (135-145) mmol/L Anion Gap 7.10 L (10.00-18.00) mmol/L BUN 34.4 H (9.0-27.0) mg/dL BUN/Creatinine Ratio 34.40 H (12.00-20.00) Ratio POC Glucose (mg/dL) 123 H 137 H (70-110) mg/dL Calcium 8.5 L (8.7-10.3) mg/dL 09/10/22 Range/Units 23:46 Sodium (135-145) mmol/L Anion Gap (10.00-18.00) mmol/L BUN (9.0-27.0) mg/dL BUN/Creatinine Ratio (12.00-20.00) Ratio POC Glucose (mg/dL) 128 H (70-110) mg/dL Calcium (8.7-10.3) mg/dL Assessment and Plan Assessment: 1. Acute kidney injury secondary to ATN secondary to septic shock and contrast- induced acute kidney injury. Patient received IV contrast on 08/23/2022. Creatinine peaked at 2.78 - 1.0 today. Nonoliguric. No hydronephrosis noted on CAT scan. 2. Chronic kidney disease stage IIIa with baseline creatinine in the range of 1.2-1.5 secondary to nephrosclerosis and long-term calcineurin inhibitor use. 3. 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 4. Metabolic acidosis secondary to acute kidney injury, lactic acidosis and IV fluids. Status post bicarb drip. 5. 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 Neurology following. 6. Septic shock secondary to Proteus UTI and bacteremia on antibiotics. Status post pressors. Proteus mirabilis bacteremia and MRSA in the sputum 7. Hyernatremia, resolved Plan: Repeat tacrolimus level Continue current dose of Lasix Continue antibiotics Continue current dose of tacrolimus
[2022-09-11] MEDS: ERTAPENEM 1 GM in SODIUM CHLORIDE 0.9% 50 ML IVPB SCH (11:16)
[2022-09-11 11:39] LABS: Glucose,Whole Blood 109 mg/dL (70-110)
[2022-09-11] MEDS: LINEZOLID 600 MG TAB PEG/G-TUBE SCH (14:32)
[2022-09-11 16:20] LABS: Glucose,Whole Blood 100 mg/dL (70-110)
--- NOTE | 2022-09-11 19:02 | P.PN ---
Subjective Progress Note Date: 09/10/22 Principal diagnosis: Septic shock related to UTI Acute ischemic infarct left parietal area Acute hypoxic respiratory failure 76-year-old male who was recently admitted with multiple medical issues including sepsis with septic shock and acute CVA and is being closely monitored. Patient is maintained in the ICU and is a downgrade waiting a bed on [facility]. Patient is maintained on tube feeds and tolerating and recommend to continue with aspiration precautions with head of the bed elevated 30-45 at all times and monitoring closely for residuals. Multiple medical consultations following including infectious disease and patient is maintained on IV antibiotics. Patient is afebrile and is talking although delayed but appears to be alert and oriented and understanding. Patient denies any chest pain or shortness of breath. Patient reports no pain at this time. Recommend PT/OT therapy daily and working on possible ECF. 24 hour interval change 09/10/2022 Patient is seen and evaluated resting comfortably in bed; discussed with nursing staff; no specific complaints reported Vital signs are reviewed and are stable with a temperature of 98.5, pulse 84, respirations 16 and blood pressure 121/52 Remains on PEG tube feeding; tolerating well Plan is to discharge patient to skilled rehab once arrangements are made Objective - Vital Signs Vital signs: Vital Signs Temp 98.4 F 09/10/22 08:00 Pulse 80 09/10/22 12:24 Resp 16 09/10/22 08:00 BP 113/61 09/10/22 08:00 Pulse Ox 97 09/10/22 08:00 FiO2 21 09/10/22 07:51 Intake & Output 09/09/22 09/10/22 09/10/22 18:59 06:59 18:59 Intake Total 1020 Output Total 1150 1700 800 Balance -1150 -680 -800 Weight 102.5 kg Intake: Oral 120 Tube Feeding 900 Output: Urine 1150 1700 800 Uretheral (Price) 1150 Other: Voiding Method Indwelling Catheter External Catheter External Catheter # Voids 1 # Bowel Movements 2 1 ABP, PAP, CO, CI - Last Documented Arterial Blood Pressure 151/46 - Labs CBC & Chem 7: 09/05/22 03:24 09/10/22 06:46 Labs: Abnormal Lab Results - Last 24 Hours (Table) 09/09/22 09/10/22 09/10/22 Range/Units 17:05 00:11 06:11 Sodium (135-145) mmol/L Anion Gap (10.00-18.00) mmol/L BUN (9.0-27.0) mg/dL BUN/Creatinine Ratio (12.00-20.00) Ratio POC Glucose (mg/dL) 143 H 128 H 121 H (70-110) mg/dL Calcium (8.7-10.3) mg/dL 09/10/22 09/10/22 Range/Units 06:46 11:20 Sodium 134 L (135-145) mmol/L Anion Gap 7.10 L (10.00-18.00) mmol/L BUN 34.4 H (9.0-27.0) mg/dL BUN/Creatinine Ratio 34.40 H (12.00-20.00) Ratio POC Glucose (mg/dL) 123 H (70-110) mg/dL Calcium 8.5 L (8.7-10.3) mg/dL Assessment and Plan Assessment: Acute septic shock, severe sepsis, secondary to Proteus mirabilis urinary tract infection, present on admission Acute ischemic infarct left parietal area Acute hypoxic respiratory failure Chronic kidney disease, stage II MRSA in the sputum Gastroesophageal reflux disease Hypertension Osteoarthritis Cryptogenic liver with jaundice and has had 2 past liver transplants follows at [facility] GI prophylaxis DVT prophylaxis Full code Plan: Recommend to continue with current medications and management of multiple medical consultations following. Patient is maintained on tube feeds and monitor for residuals. Speech therapy following and plan is for modified barium swallow currently remains nothing by mouth. Recommend aspiration precautions with head of the bed elevated 30-45 at all times and monitoring residuals closely. Recommend PT/OT therapy daily and case management is following working on possible ECF and family making choices of approved facilities and following with case management. Pulmonary has cleared the patient for discharge. Nephrology following and continued on IV lasix, will transition to oral on discharge. Recommend continue with antibiotics and will discuss with infectious disease about possible IV antibiotics in the outpatient setting. Patient continues with fecal management system and Imodium was on as needed and have made it scheduled as patient continues to have loose stools and C. diff testing was negative 2. Recommend removing fecal management system. Due to multiple complex medical issues, prognosis is guarded. Further recommendations to follow based on the clinical course of the patient.
--- NOTE | 2022-09-11 19:04 | P.PN ---
Subjective Progress Note Date: 09/11/22 Principal diagnosis: Septic shock related to UTI Acute ischemic infarct left parietal area Acute hypoxic respiratory failure 76-year-old male who was recently admitted with multiple medical issues including sepsis with septic shock and acute CVA and is being closely monitored. Patient is maintained in the ICU and is a downgrade waiting a bed on [facility]. Patient is maintained on tube feeds and tolerating and recommend to continue with aspiration precautions with head of the bed elevated 30-45 at all times and monitoring closely for residuals. Multiple medical consultations following including infectious disease and patient is maintained on IV antibiotics. Patient is afebrile and is talking although delayed but appears to be alert and oriented and understanding. Patient denies any chest pain or shortness of breath. Patient reports no pain at this time. Recommend PT/OT therapy daily and working on possible ECF. 24 hour interval change 09/10/2022 Patient is seen and evaluated resting comfortably in bed; discussed with nursing staff; no specific complaints reported Vital signs are reviewed and are stable with a temperature of 98.5, pulse 84, respirations 16 and blood pressure 121/52 Remains on PEG tube feeding; tolerating well Plan is to discharge patient to skilled rehab once arrangements are made 09/11/2022 Patient is seen and evaluated sitting up in bed with family at bedside; patient is very awake and alert and responsive; feeding himself from the tray Daughter at bedside and requesting blood work to be completed that is required periodically as outpatient by [facility]; reports she has given the list of labs needed to the RN; would also want neurology to come back and reevaluate patient; reports that she has some concerns about patient's response; patient remains at new baseline; no specific deficit noted or reported Objective - Vital Signs Vital signs: Vital Signs Temp 98.1 F 09/11/22 14:00 Pulse 86 09/11/22 15:11 Resp 18 09/11/22 14:00 BP 127/55 09/11/22 14:00 Pulse Ox 95 09/11/22 14:00 FiO2 21 09/10/22 07:51 Intake & Output 09/10/22 09/11/22 09/11/22 18:59 06:59 18:59 Output Total 9020 633 9380 Balance -1577 -500 -1423 Output: Urine 3395 752 8780 Stool 2 Other: Voiding Method External Catheter Indwelling Catheter External Catheter # Voids 1 1 # Bowel Movements 1 5 2 ABP, PAP, CO, CI - Last Documented Arterial Blood Pressure 151/46 - Exam GENERAL: The patient is alert and oriented x3, Well developed, well nourished. HEENT: Pupils are round and equally reacting to light. EOMI. no scleral icterus. No conjunctival pallor. Normocephalic, atraumatic. No pharyngeal erythema. No thyromegaly. CARDIOVASCULAR: S1 and S2 muffled PULMONARY: diminished breath sounds bilaterally with no wheezing or rhonchi noted. ABDOMEN: soft. Nontender on exam. obese. non-distended, normoactive bowel sounds. No palpable organomegaly. MUSCULOSKELETAL: No joint swelling or deformity. EXTREMITIES: No cyanosis, clubbing, or pedal edema. NEUROLOGICAL: Gross neurological examination did not reveal any focal deficits. Left arm with some strength, lower extremities 1/5 Diffuse weakness SKIN: No rashes. - Labs CBC & Chem 7: 09/05/22 03:24 09/10/22 06:46 Labs: Abnormal Lab Results - Last 24 Hours (Table) 09/10/22 Range/Units 23:46 POC Glucose (mg/dL) 128 H (70-110) mg/dL Assessment and Plan Assessment: Acute septic shock, severe sepsis, secondary to Proteus mirabilis urinary tract infection, present on admission Acute ischemic infarct left parietal area Acute hypoxic respiratory failure Chronic kidney disease, stage II MRSA in the sputum Gastroesophageal reflux disease Hypertension Osteoarthritis Cryptogenic liver with jaundice and has had 2 past liver transplants follows at [facility] GI prophylaxis DVT prophylaxis Full code Plan: Recommend to continue with current medications and management of multiple medical consultations following. Patient is maintained on tube feeds and monitor for residuals. Speech therapy following and plan is for modified barium swallow currently remains nothing by mouth. Recommend aspiration precautions with head of the bed elevated 30-45 at all times and monitoring residuals closely. Recommend PT/OT therapy daily and case management is following working on possible ECF and family making choices of approved facilities and following with case management. Pulmonary has cleared the patient for discharge. Nephrology following and continued on IV lasix, will transition to oral on discharge. R ecommend continue with antibiotics and will discuss with infectious disease about possible IV antibiotics in the outpatient setting. Patient continues with fecal management system and Imodium was on as needed and have made it scheduled as patient continues to have loose stools and C. diff testing was negative 2. Recommend removing fecal management system. Due to multiple complex medical issues, prognosis is guarded. Further recommendations to follow based on the clinical course of the patient.
[2022-09-11] MEDS: LATANOPROST 0.005% OPHTH DROPS 2.5 ML BTL BOTH EYES SCH (21:52)
[2022-09-12 01:02] LABS: Glucose,Whole Blood 96 mg/dL (70-110)
[2022-09-12] MEDS: INSULIN ASPART (NovoLOG) 100 UNIT/ML VIAL SQ SCH ×4 (01:04→17:40)
[2022-09-12] MEDS: LINEZOLID 600 MG TAB PEG/G-TUBE SCH ×2 (02:13→12:27)
[2022-09-12 05:55] LABS: Glucose,Whole Blood 106 mg/dL (70-110)
[2022-09-12] MEDS: IPRATROPIUM-ALBUTEROL 3 ML NEB INHALATION SCH ×4 (08:13→21:44)
[2022-09-12] MEDS: ASPIRIN 81 MG PO SCH (08:43)
[2022-09-12] MEDS: THIAMINE 100 MG TAB PO SCH (08:43)
[2022-09-12] MEDS: FUROSEMIDE 20 MG TAB PO SCH ×2 (08:43→16:33)
[2022-09-12] MEDS: FOLIC ACID 1 MG TAB PO SCH (08:43)
[2022-09-12] MEDS: HEPARIN SODIUM,PORCINE/PF 5,000 UNIT/0.5 ML SYRINGE SQ SCH ×2 (08:43→23:31)
[2022-09-12] MEDS: LOPERAMIDE 2 MG CAP PO SCH ×3 (08:44→23:30)
[2022-09-12] MEDS: MULTIVITAMINS, THERA LIQUID 237 ML BOTTLE PO SCH (08:44)
[2022-09-12] MEDS: NYSTATIN 100,000 UNIT/ML SUSP 500,000 UNIT/5 ML CUP PO SCH ×4 (08:46→22:54)
[2022-09-12] MEDS: TACROLIMUS 1 MG CAP PO SCH ×2 (08:47→23:31)
--- NOTE | 2022-09-12 09:05 | P.PN ---
Subjective Progress Note Date: 09/09/22 Principal diagnosis: Bacteremia Patient is a 76-year-old -[place] male past medical history significant for liver failure status post liver transplant or redness of his medication presented to hospital generalized weakness did have a positive UA concerning for UTI patient subsequently have a positive blood culture. Patient has been extubated 08/29/2022 On today's evaluation that is 09/09/2022, the patient remains to be afebrile, the patient is breathing comfortably on room air , the patient denies any chest pain or shortness of breath, the patient Isn't density mostly dry in nature denies abdominal pain and diarrhea has slowed down Objective - Vital Signs Vital signs: Vital Signs Temp 98.5 F 09/09/22 07:44 Pulse 80 09/09/22 12:44 Resp 16 09/09/22 12:44 BP 121/52 09/09/22 07:44 Pulse Ox 98 09/09/22 08:53 FiO2 21 09/05/22 20:20 Intake & Output 09/08/22 09/09/22 09/09/22 18:59 06:59 18:59 Intake Total 900 Output Total 2550 900 1150 Balance -2550 0 -1150 Weight 102.5 kg Intake: Oral 0 Tube Feeding 900 Output: Urine 5207 563 7681 Uretheral (Price) 900 1150 Stool 900 Other: Voiding Method Indwelling Catheter Indwelling Catheter Indwelling Catheter # Bowel Movements 1 ABP, PAP, CO, CI - Last Documented Arterial Blood Pressure 151/46 - Exam GENERAL DESCRIPTION: An elderly male lying in bed in no distress RESPIRATORY SYSTEM: Unlabored breathing , decreased breath sounds at bases HEART: S1 S2 regular rate and rhythm , ABDOMEN: Soft , no tenderness EXTREMITIES: No edema feet - Labs CBC & Chem 7: 09/05/22 03:24 09/10/22 06:46 Labs: Abnormal Lab Results - Last 24 Hours (Table) 09/08/22 09/08/22 09/08/22 Range/Units 18:00 20:39 23:48 POC Glucose (mg/dL) 144 H 130 H 119 H (70-110) mg/dL 09/09/22 Range/Units 05:41 POC Glucose (mg/dL) 145 H (70-110) mg/dL Assessment and Plan (1) Bacteremia Current Visit: Yes Status: Acute Code(s): R78.81 - BACTEREMIA SNOMED Code(s): 9447706 (2) UTI (urinary tract infection) Current Visit: No Status: Acute Code(s): N39.0 - URINARY TRACT INFECTION, SITE NOT SPECIFIED SNOMED Code(s): 16629895 Plan: 1patient presented to hospital with abdominal pain and nausea and vomiting in this patient did have a positive UA CT abdominal pelvis did not show any acute abnormality abdominal soft medical examination patient did have a positive UA concerning for symptomatic urinary tract infection likely from enteric gram- negative pathogen, patient subsequently did have slight worsening of his respiratory status and concern for possible aspiration pneumonitis. 2 Patient urine culture with Proteus which is a sensitive pathogen however blood culture showing ESBL proteus , Patient has continued improvement and continue with Invanz to finish his 2-week course of therapy, patient is currently on day 13 out of 14 of the treatment 3patient with MRSA pneumonia in this patient seem to have shown some clinical improvement respiratory status has improved , patient to continue Zyvox day #12 out of 14, which has been switched to oral down the PEG tube 4-patient with diarrhea stool for C. diff has been negative 2 patient to continue with Imodium and monitor clinical course closely Time with Patient: Less than 30
--- NOTE | 2022-09-12 09:06 | P.PN ---
Subjective Progress Note Date: 09/10/22 Principal diagnosis: Bacteremia Patient is a 76-year-old -[place] male past medical history significant for liver failure status post liver transplant or redness of his medication presented to hospital generalized weakness did have a positive UA concerning for UTI patient subsequently have a positive blood culture. Patient has been extubated 08/29/2022 On today's evaluation that is 09/10/2022, the patient continues to be afebrile, the patient is breathing comfortably on room air , the patient denies any chest pain or shortness of breath, the patient cough has decreased in intensity not bringing up any sputum no abdominal pain and diarrhea has slowed down Objective - Vital Signs Vital signs: Vital Signs Temp 98.4 F 09/10/22 08:00 Pulse 80 09/10/22 12:24 Resp 16 09/10/22 08:00 BP 113/61 09/10/22 08:00 Pulse Ox 97 09/10/22 08:00 FiO2 21 09/10/22 07:51 Intake & Output 09/09/22 09/10/22 09/10/22 18:59 06:59 18:59 Intake Total 1020 Output Total 1150 1700 800 Balance -1150 -680 -800 Weight 102.5 kg Intake: Oral 120 Tube Feeding 900 Output: Urine 1150 1700 800 Uretheral (Price) 1150 Other: Voiding Method Indwelling Catheter External Catheter External Catheter # Voids 1 # Bowel Movements 2 1 ABP, PAP, CO, CI - Last Documented Arterial Blood Pressure 151/46 - Exam GENERAL DESCRIPTION: An elderly male lying in bed in no distress RESPIRATORY SYSTEM: Unlabored breathing , decreased breath sounds at bases HEART: S1 S2 regular rate and rhythm , ABDOMEN: Soft , no tenderness EXTREMITIES: No edema feet - Labs CBC & Chem 7: 09/05/22 03:24 09/10/22 06:46 Labs: Abnormal Lab Results - Last 24 Hours (Table) 09/09/22 09/10/22 09/10/22 Range/Units 17:05 00:11 06:11 Sodium (135-145) mmol/L Anion Gap (10.00-18.00) mmol/L BUN (9.0-27.0) mg/dL BUN/Creatinine Ratio (12.00-20.00) Ratio POC Glucose (mg/dL) 143 H 128 H 121 H (70-110) mg/dL Calcium (8.7-10.3) mg/dL 09/10/22 09/10/22 Range/Units 06:46 11:20 Sodium 134 L (135-145) mmol/L Anion Gap 7.10 L (10.00-18.00) mmol/L BUN 34.4 H (9.0-27.0) mg/dL BUN/Creatinine Ratio 34.40 H (12.00-20.00) Ratio POC Glucose (mg/dL) 123 H (70-110) mg/dL Calcium 8.5 L (8.7-10.3) mg/dL Assessment and Plan (1) Bacteremia Current Visit: Yes Status: Acute Code(s): R78.81 - BACTEREMIA SNOMED Code(s): 9304452 (2) UTI (urinary tract infection) Current Visit: No Status: Acute Code(s): N39.0 - URINARY TRACT INFECTION, SITE NOT SPECIFIED SNOMED Code(s): 49980925 Plan: 1patient presented to hospital with abdominal pain and nausea and vomiting in this patient did have a positive UA CT abdominal pelvis did not show any acute abnormality abdominal soft medical examination patient did have a positive UA concerning for symptomatic urinary tract infection likely from enteric gram-negative pathogen, patient subsequently did have slight worsening of his respiratory status and concern for possible aspiration pneumonitis. 2 Patient urine culture with Proteus which is a sensitive pathogen however blood culture showing ESBL proteus , Patient has continued improvement and continue with Invanz to finish his 2-week course of therapy 3patient with MRSA pneumonia in this patient seem to have shown some clinical improvement respiratory status has improved , patient to continue Zyvox day #13 out of 14 4-patient with diarrhea stool for C. diff has been negative 2 patient to continue with Imodium and continue supportive care Time with Patient: Less than 30
--- NOTE | 2022-09-12 09:08 | P.PN ---
Subjective Progress Note Date: 09/11/22 Principal diagnosis: Bacteremia Patient is a 76-year-old -[place] male past medical history significant for liver failure status post liver transplant or redness of his medication presented to hospital generalized weakness did have a positive UA concerning for UTI patient subsequently have a positive blood culture. Patient has been extubated 08/29/2022 On today's evaluation that is 09/11/2022, the patient is afebrile, the patient is breathing comfortably on room air , the patient denies any chest pain or shortness of breath, the patient did have occasional dry cough, denies having any nausea no vomiting no abdominal pain or any worsening diarrhea Objective - Vital Signs Vital signs: Vital Signs Temp 98.8 F 09/12/22 02:00 Pulse 80 09/12/22 08:32 Resp 17 09/11/22 22:22 BP 104/49 09/12/22 02:00 Pulse Ox 95 09/12/22 02:00 FiO2 21 09/10/22 07:51 Intake & Output 09/11/22 09/12/22 09/12/22 18:59 06:59 18:59 Intake Total 0 Output Total 2175 1050 Balance -2175 -1050 Intake: Tube Feeding 0 Output: Urine 2175 1050 Other: Voiding Method External Catheter External Catheter # Voids 1 # Bowel Movements 2 3 ABP, PAP, CO, CI - Last Documented Arterial Blood Pressure 151/46 - Exam GENERAL DESCRIPTION: An elderly male lying in bed in no distress RESPIRATORY SYSTEM: Unlabored breathing , decreased breath sounds at bases HEART: S1 S2 regular rate and rhythm , ABDOMEN: Soft , no tenderness EXTREMITIES: No edema feet - Labs CBC & Chem 7: 09/05/22 03:24 09/10/22 06:46 Assessment and Plan (1) Bacteremia Current Visit: Yes Status: Acute Code(s): R78.81 - BACTEREMIA SNOMED Code(s): 0444119 (2) UTI (urinary tract infection) Current Visit: No Status: Acute Code(s): N39.0 - URINARY TRACT INFECTION, SITE NOT SPECIFIED SNOMED Code(s): 39418266 Plan: 1patient presented to hospital with abdominal pain and nausea and vomiting in this patient did have a positive UA CT abdominal pelvis did not show any acute abnormality abdominal soft medical examination patient did have a positive UA concerning for symptomatic urinary tract infection likely from enteric gram-ne gative pathogen, patient subsequently did have slight worsening of his respiratory status and concern for possible aspiration pneumonitis. 2 Patient urine culture with Proteus which is a sensitive pathogen however blood culture showing ESBL proteus , Patient has continued improvement and completed a two-week course of Invanz which will be discontinued after today's dose 3patient with MRSA pneumonia in this patient seem to have shown some clinical improvement respiratory status has improved , patient to continue Zyvox to finish his two-week course of therapy 4-patient with diarrhea stool for C. diff has been negative 2 patient to continue with Imodium and hopefully diarrhea will improve after discontinuation of his antibiotics Time with Patient: Less than 30
[2022-09-12 12:06] LABS: Glucose,Whole Blood 121 mg/dL (70-110)
--- NOTE | 2022-09-12 14:26 | P.PN ---
Subjective 76-year-old male who was recently admitted with multiple medical issues including sepsis with septic shock and acute CVA and is being closely monitored. Patient is maintained in the ICU and is a downgrade waiting a bed on [facility]. Patient is maintained on tube feeds and tolerating and recommend to continue with aspiration precautions with head of the bed elevated 30-45 at all times and monitoring closely for residuals. Multiple medical consultations following including infectious disease and patient is maintained on IV antibiotics. Patie nt is afebrile and is talking although delayed but appears to be alert and oriented and understanding. Patient denies any chest pain or shortness of breath. Patient reports no pain at this time. Recommend PT/OT therapy daily and working on possible ECF. 24 hour interval change 09/10/2022 Patient is seen and evaluated resting comfortably in bed; discussed with nursing staff; no specific complaints reported Vital signs are reviewed and are stable with a temperature of 98.5, pulse 84, respirations 16 and blood pressure 121/52 Remains on PEG tube feeding; tolerating well Plan is to discharge patient to skilled rehab once arrangements are made 09/11/2022 Patient is seen and evaluated sitting up in bed with family at bedside; patient is very awake and alert and responsive; feeding himself from the tray Daughter at bedside and requesting blood work to be completed that is required periodically as outpatient by [facility]; reports she has given the list of labs needed to the RN; would also want neurology to come back and reevaluate patient; reports that she has some concerns about patient's response; patient remains at new baseline; no specific deficit noted or reported 09/12/2022 atient lying in bed comfortably He denies chest pain or dyspnea, no other new complaints Patient is awake and alert and oriented 3 but he has no insight into his illness and patient is very oriented No IV fluid, no Price PEG tube in a Place with feeds running at 50 mm per hour Remains on the same antibiotics Invanz and Zyvox Objective - Vital Signs Vital signs: Vital Signs Temp 99.2 F 09/12/22 08:45 Pulse 74 09/12/22 12:01 Resp 16 09/12/22 08:45 BP 108/61 09/12/22 08:45 Pulse Ox 95 09/12/22 08:45 FiO2 21 09/10/22 07:51 Intake & Output 09/11/22 09/12/22 09/12/22 18:59 06:59 18:59 Intake Total 0 Output Total 2175 1050 Balance -2175 -1050 Weight 102.5 kg Intake: Tube Feeding 0 Output: Urine 2175 1050 Other: Voiding Method External Catheter External Catheter Diaper Incontinent # Voids 1 # Bowel Movements 2 3 ABP, PAP, CO, CI - Last Documented Arterial Blood Pressure 151/46 - Exam -GENERAL: The patient is alert and oriented x3, not in any acute distress. Generally weak HEENT: Pupils are round and equally reacting to light. EOMI. No scleral icterus. No conjunctival pallor. Normocephalic, atraumatic. No pharyngeal erythema. No thyromegaly. CARDIOVASCULAR: S1 and S2 present. No murmurs, rubs, or gallops. PULMONARY: Chest is clear to auscultation, no wheezing or crackles. ABDOMEN: Soft, nontender, nondistended, normoactive bowel sounds. No palpable organomegaly. MUSCULOSKELETAL: No joint swelling or deformity. EXTREMITIES: No cyanosis, clubbing, or pedal edema. NEUROLOGICAL: Gross neurological examination did not reveal any focal deficits. SKIN: No rashes. no petechiae. 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 Pulmonary team already evaluated the patient and sign off the case Continue with antirejection treatment for his history of liver transplant Labs and medication were reviewed.. Continue same treatment. Continue with symptomatic treatment. Resume home medication. Monitor labs and vitals. DVT and GI prophylaxis. Further recommendations as per clinical course of the patient DVT prophylaxis: Subcutaneous heparin GI Prophylaxis: Pepcid PT/OT: Recommend subacute rehab Prognosis is guarded
[2022-09-12] MEDS: FAMOTIDINE 20 MG TAB PO SCH (14:33)
[2022-09-12 15:24] LABS: Basophils % (A) 0 %; Eosinophils # (A) 0.3 k/uL (0-0.7); Eosinophils % (A) 5 %; HCT 30.7 % (39.0-53.0); HGB 9.5 gm/dL (13.0-17.5); Hypochromasia Moderate; Lymphocytes # (A) 1.1 k/uL (1.0-4.8); Lymphocytes % (A) 20 %; MCH 27.3 pg (25.0-35.0); MCHC 31.1 g/dL (31.0-37.0); MCV 87.9 fL (80.0-100.0); Mean Platelet Volume 7.4; Monocytes # (A) 0.2 k/uL (0-1.0); Monocytes % (A) 4 %; Neutrophils # (A) 3.7 k/uL (1.3-7.7); Neutrophils % (A) 68 %; Platelet Count 236 k/uL (150-450); RBC 3.49 m/uL (4.30-5.90); RDW 14.3 % (11.5-15.5); WBC 5.4 k/uL (3.8-10.6)
[2022-09-12 15:26] LABS: African American GFR (CKD) 78 (>60 ml/min/1.73 sqM); Anion Gap 4 mmol/L; Blood Urea Nitrogen 37 mg/dL (9-20); Calcium 8.7 mg/dL (8.4-10.2); Carbon Dioxide 26 mmol/L (22-30); Chloride 106 mmol/L (98-107); Glucose 123 mg/dL (74-99); Non-African American GFR(CKD) 68 (>60 ml/min/1.73 sqM); Potassium 4.5 mmol/L (3.5-5.1); Sodium 136 mmol/L (137-145)
[2022-09-12 16:46] LABS: Glucose,Whole Blood 158 mg/dL (70-110)
[2022-09-12] MEDS: LATANOPROST 0.005% OPHTH DROPS 2.5 ML BTL BOTH EYES SCH (23:31)
[2022-09-13 00:54] LABS: Glucose,Whole Blood 167 mg/dL (70-110)
[2022-09-13] MEDS: INSULIN ASPART (NovoLOG) 100 UNIT/ML VIAL SQ SCH ×4 (01:28→17:12)
[2022-09-13] MEDS: LINEZOLID 600 MG TAB PEG/G-TUBE SCH ×2 (01:28→15:56)
[2022-09-13 05:54] LABS: Glucose,Whole Blood 110 mg/dL (70-110)
[2022-09-13] MEDS: IPRATROPIUM-ALBUTEROL 3 ML NEB INHALATION SCH ×4 (07:31→19:07)
[2022-09-13] MEDS ORDERED: CALCIUM CARBONATE 500 MG CHEWABLE PO PRN (08:18)
[2022-09-13] MEDS ORDERED: CALCIUM CARBONATE 500 MG CHEWABLE PO ONE (08:33)
[2022-09-13] MEDS: LOPERAMIDE 2 MG CAP PO SCH ×3 (09:33→22:15)
[2022-09-13] MEDS: HEPARIN SODIUM,PORCINE/PF 5,000 UNIT/0.5 ML SYRINGE SQ SCH ×2 (09:33→22:15)
[2022-09-13] MEDS: FUROSEMIDE 20 MG TAB PO SCH ×2 (09:34→15:08)
[2022-09-13] MEDS: FOLIC ACID 1 MG TAB PO SCH (09:34)
[2022-09-13] MEDS: THIAMINE 100 MG TAB PO SCH (09:34)
[2022-09-13] MEDS: NYSTATIN 100,000 UNIT/ML SUSP 500,000 UNIT/5 ML CUP PO SCH ×4 (09:34→22:15)
[2022-09-13] MEDS: TACROLIMUS 1 MG CAP PO SCH ×2 (09:34→22:15)
[2022-09-13] MEDS: PANTOPRAZOLE 40 MG/10 ML VIAL IVP SCH (09:35)
[2022-09-13] MEDS: MULTIVITAMINS, THERA LIQUID 237 ML BOTTLE PO SCH (09:35)
[2022-09-13] MEDS: FAMOTIDINE 20 MG TAB PO SCH (09:39)
[2022-09-13] MEDS: ASPIRIN 81 MG PO SCH (09:39)
[2022-09-13 11:28] LABS: Glucose,Whole Blood 121 mg/dL (70-110)
--- NOTE | 2022-09-13 12:04 | P.PN ---
Subjective 76-year-old male who was recently admitted with multiple medical issues including sepsis with septic shock and acute CVA and is being closely monitored. Patient is maintained in the ICU and is a downgrade waiting a bed on [facility]. Patient is maintained on tube feeds and tolerating and recommend to continue with aspiration precautions with head of the bed elevated 30-45 at all times and monitoring closely for residuals. Multiple medical consultations following including infectious disease and patient is maintained on IV antibiotics. Patie nt is afebrile and is talking although delayed but appears to be alert and oriented and understanding. Patient denies any chest pain or shortness of breath. Patient reports no pain at this time. Recommend PT/OT therapy daily and working on possible ECF. 24 hour interval change 09/10/2022 Patient is seen and evaluated resting comfortably in bed; discussed with nursing staff; no specific complaints reported Vital signs are reviewed and are stable with a temperature of 98.5, pulse 84, respirations 16 and blood pressure 121/52 Remains on PEG tube feeding; tolerating well Plan is to discharge patient to skilled rehab once arrangements are made 09/11/2022 Patient is seen and evaluated sitting up in bed with family at bedside; patient is very awake and alert and responsive; feeding himself from the tray Daughter at bedside and requesting blood work to be completed that is required periodically as outpatient by [facility]; reports she has given the list of labs needed to the RN; would also want neurology to come back and reevaluate patient; reports that she has some concerns about patient's response; patient remains at new baseline; no specific deficit noted or reported 09/12/2022 atient lying in bed comfortably He denies chest pain or dyspnea, no other new complaints Patient is awake and alert and oriented 3 but he has no insight into his illness and patient is very oriented No IV fluid, no Price PEG tube in a Place with feeds running at 50 mm per hour Remains on the same antibiotics Invanz and Zyvox 09/13/2022 No new complaint, patient respect to proceeding and 50 mL/h Patient complains from heartburn today, Pepcid started yesterday swished through Protonix and started on Tums when necessary. No other neurological complaints, neurologist recommended to continue with aspirin and Plavix 21 days then stop aspirin and continue with Plavix. Currently is only on aspirin. Checked with pharmacy patient received 3 doses of Plavix, last one was 08/31, also patient had a procedure for PEG tube placement on 09/02. We will double check within urology service if he should be on both aspirin and Plavix. Patient currently on Zyvox 1 week for his MRSA pneumonia he finishes Invanz for his ESBL Proteus UTI. Plan as per ID team. Patient is medically stable for discharge pending placement, no catheterization today. Discussed with CM/SW Objective - Vital Signs Vital signs: Vital Signs Temp 97.9 F 09/13/22 07:29 Pulse 70 09/13/22 11:10 Resp 18 09/13/22 07:29 BP 129/55 09/13/22 07:29 Pulse Ox 98 09/13/22 07:34 FiO2 21 09/10/22 07:51 Intake & Output 09/12/22 09/13/22 09/13/22 18:59 06:59 18:59 Intake Total 1000 Output Total 1 Balance 999 Weight 102.5 kg Intake: Tube Feeding 1000 Output: Stool 1 Other: Voiding Method Diaper Diaper Diaper Incontinent Incontinent Incontinent # Voids 3 # Bowel Movements 1 3 1 ABP, PAP, CO, CI - Last Documented Arterial Blood Pressure 151/46 - Exam -GENERAL: The patient is alert and oriented x3, not in any acute distress. Gen erally weak HEENT: Pupils are round and equally reacting to light. EOMI. No scleral icterus. No conjunctival pallor. Normocephalic, atraumatic. No pharyngeal erythema. No thyromegaly. CARDIOVASCULAR: S1 and S2 present. No murmurs, rubs, or gallops. PULMONARY: Chest is clear to auscultation, no wheezing or crackles. ABDOMEN: Soft, nontender, nondistended, normoactive bowel sounds. No palpable or ganomegaly. MUSCULOSKELETAL: No joint swelling or deformity. EXTREMITIES: No cyanosis, clubbing, or pedal edema. NEUROLOGICAL: Gross neurological examination did not reveal any focal deficits. SKIN: No rashes. no petechiae. - Labs CBC & Chem 7: 09/12/22 14:37 09/12/22 14:37 Labs: Abnormal Lab Results - Last 24 Hours (Table) 09/12/22 09/12/22 09/12/22 Range/Units 12:05 14:37 14:37 RBC 3.49 L (4.30-5.90) m/uL Hgb 9.5 L (13.0-17.5) gm/dL Hct 30.7 L (39.0-53.0) % Sodium 136 L (137-145) mmol/L BUN 37 H (9-20) mg/dL Glucose 123 H (74-99) mg/dL POC Glucose (mg/dL) 121 H (70-110) mg/dL 09/12/22 09/13/22 09/13/22 Range/Units 16:45 00:52 11:25 RBC (4.30-5.90) m/uL Hgb (13.0-17.5) gm/dL Hct (39.0-53.0) % Sodium (137-145) mmol/L BUN (9-20) mg/dL Glucose (74-99) mg/dL POC Glucose (mg/dL) 158 H 167 H 121 H (70-110) mg/dL Assessment and Plan Assessment: Acute urinary tract infection with ESBL Proteus MRSA pneumonia Status post Acute septic shock, resolved Acute hypoxic respiratory failure Chronic kidney disease, stage II Gastroesophageal reflux disease Hypertension Osteoarthritis 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 Pulmonary team already evaluated the patient and sign off the case Continue with antirejection treatment for his history of liver transplant Labs and medication were reviewed.. Continue same treatment. Continue with symptomatic treatment. Resume home medication. Monitor labs and vitals. DVT and GI prophylaxis. Further recommendations as per clinical course of the patient DVT prophylaxis: Subcutaneous heparin GI Prophylaxis: Ppi PT/OT: Recommend subacute rehab Prognosis is guarded
--- NOTE | 2022-09-13 14:58 | P.PN ---
Subjective Progress Note Date: 09/13/22 09/13/2022: Patient was seen for a follow-up at request of Dr. Cail. Patient is now on the regular floor in bed #[id number]. He has improved a lot. Offers no new complaints. 09/02/2022: Patient was seen for a follow-up. Patient is laying comfortably in the bed. Family members not present today. Patient clinically unchanged. 09/01/2022: Patient was seen for a follow-up. Patient's daughter was present today. Patient is showing clinical improvement, slow steady, as per examination below. Patient has failed swallow. Patient is undergoing PEG tube placement in the morning. His daughter has given the consent. 08/31/2022: Patient was seen for a follow-up. Patient clinically and changes compared to yesterday. Patient is laying in the bed. Has NG tube in place. 08/30/2022: Patient was seen for a follow-up. Patient is much more alert and awake. Still somewhat groggy, slightly encephalopathic. Patient denies headache. Patient is laying comfortably in the bed. No arrhythmia. 08/29/2022: Patient was seen for a follow-up. Patient initially seen by Dr. Poncho De Santiago. Please refer to his note for details. Patient is a 76-year-old right-handed male who has presented with acute left parietal stroke with right hemiplegia. Patient was initially intubated, placed on a ventilator because he was not able to protect his airway. EEG was negative for seizure. Patient has no significant carotid stenosis about 50%. CTA of the head and neck worse recommended once his kidney functions improved. Patient not on any antiplatelet medication because he was thrombocytopenic. Family requested patient to be transferred to [facility], but it has been declined. Repeat computed tomography scan was performed. Patient was seen for a follow-up. Patient's grandson was present. He called his aunt, who is a caregiver to the patient and she was present over the speaker phone. Patient has been extubated earlier today. Patient is on contact isolation for MRSA. Patient's right arm and right leg is flaccid. He has severely garbled speech. Patient has been on aspirin 81 mg daily prior to arrival to the hospital. Prior workup: Urine culture is positive for Proteus mirabilis. Blood culture is positive for Proteus mirabilis Lipid panel is triglyceride 112, cholesterol 111, LDL is 61, HDL is 27. Ammonia level is less than [address] of the head is reported as cerebral atrophy. Old small cortical infarct in the left internal capsule. No acute abnormality. CT angiography of the head and neck is reported as angiogram is nondiagnostic since there is no vascular contrast. There is cerebral or cortical atrophy. No acute intercranial abnormality. No significant abnormality of the neck. Mild spondylitic changes in the cervical spine. Repeat CT of the head as reported as there is a 4 cm poorly marginated area of hypodensity in the left parietal lobe consistent with acute infarct and isn't changed compared to recent exam. No hemorrhage seen. Cerebral atrophy. Then later, reading radiologist has addendum and reports it is that acute infarct is a change compared to recent exam. I personally reviewed the CT of the head on the most recent CT that was done last and I felt the left parietal seemed acute. There is no intraparenchymal hemorrhage. And then I was compared it to initial CT head on presentation, I felt different in which, I did not notice any remarkable acute ischemic in left parietal on initial CT. Carotid duplex was reported as there is bilateral plaque formation. There is bilateral mild elevation of internal carotid artery velocity. There is antegr hayde flow in the vertebral arteries. The images and measurements suggest 50-70% stenosis in both internal carotid arteries. Repeat CT head on 08/25/2022 is reported as increased size of low attenuation region in the medial left frontal/parietal lobe consistent with evolving acute/subacute infarct compared to the prior CT brain on 08/23/2022. No evidence for hemorrhagic conversion. I personally reviewed the image and I do agree there is evolution of the stroke but I feel mostly it's over the left parietal stroke than frontal. Routine EEG on 08/25/2022: Is abnormal. The background slowing suggestive of moderate encephalopathy. There is no focal slowing, epileptiform discharge or seizure on the EEG. Excessive beta activity and some diffuse suppression seen during the study is likely due to medication effect (Ativan). 2D echo is reported as likely normal left ventricle size and systolic function. Normal left atrial size. Objective - Vital Signs Vital signs: Vital Signs Temp 97.9 F 09/13/22 07:29 Pulse 70 09/13/22 11:10 Resp 18 09/13/22 07:29 BP 129/55 09/13/22 07:29 Pulse Ox 98 09/13/22 07:34 FiO2 21 09/10/22 07:51 Intake & Output 09/12/22 09/13/22 09/13/22 18:59 06:59 18:59 Intake Total 1000 Output Total 1 Balance 999 Weight 102.5 kg 102.5 kg Intake: Tube Feeding 1000 Output: Stool 1 Other: Voiding Method Diaper Diaper Diaper Incontinent Incontinent Incontinent # Voids 3 # Bowel Movements 1 3 1 ABP, PAP, CO, CI - Last Documented Arterial Blood Pressure 151/46 - Exam Patient is fully alert and awake. Patient knows it is August and the year is 2021 and that he is in [facility] in [place]. He knows name of the current president Mr. Joe Bah. He knows his age 76 and his date of 1945. Speech and language functions are normal. Cranial nerves are normal. Visual hardy are full, extraocular muscles are intact, face is symmetric. On muscle strength testing (right/left) deltoid 3+4-/5, biceps 4+/5, triceps 4+/5, career advisor 4/4+. In the lower limbs hip flexion 1-2/4+, ankle dorsiflexion 4- /5. Sensory touch is decreased in the right leg as compared to the left. The sensations are equal on the face and upper limbs. Patient has peripheral edema. - Labs CBC & Chem 7: 09/12/22 14:37 09/12/22 14:37 Labs: Abnormal Lab Results - Last 24 Hours (Table) 09/12/22 09/12/22 09/12/22 Range/Units 09:43 14:37 14:37 RBC 3.49 L (4.30-5.90) m/uL Hgb 9.5 L (13.0-17.5) gm/dL Hct 30.7 L (39.0-53.0) % Sodium 136 L (137-145) mmol/L BUN 37 H (9-20) mg/dL Glucose 123 H (74-99) mg/dL POC Glucose (mg/dL) (70-110) mg/dL Tacrolimus 4.5 L (5.0-20.0) ng/mL 09/12/22 09/13/22 09/13/22 Range/Units 16:45 00:52 11:25 RBC (4.30-5.90) m/uL Hgb (13.0-17.5) gm/dL Hct (39.0-53.0) % Sodium (137-145) mmol/L BUN (9-20) mg/dL Glucose (74-99) mg/dL POC Glucose (mg/dL) 158 H 167 H 121 H (70-110) mg/dL Tacrolimus (5.0-20.0) ng/mL Assessment and Plan Assessment: * Acute ischemic stroke over left parietal region in the left STEVE territory with right hemiparesis, leg much more involved as compared to the right arm. Mechanism of stroke likely from moderate bilateral ICA stenosis. * Altered mental status seems due to metabolic encephalopathy, remarkably improved. * Dysphagia, likely due to CVA, status post packed placement 09/02/2022. Patient's dysphagia has improved. Patient on CHOP dysphagia 3 diet. * Carotid stenosis 50-70% bilateral ICA on carotid duplex but was felt just at 50% by vascular surgery team. * Sepsis (likely due to UTI and blood is positive for proteus species) * Renal insufficiency, resolved * Elevated liver function, resolved. * History of old stroke with some weakness possible lower weakness but was able to ambulate * History of liver failure s/p transplant Plan: Patient's examination has much improved as compared to the previous exam from 09/02/2022. Patient's mentation, speech language functions as well as strength is improved. Right leg continues to be weak. Repeat CT head from 08/28/2022 revealed stable posterior left centrum semiovale infarct. I personally reviewed CT head, appears to involve the left STEVE territory involving the left parietal region. No hemorrhage. Patient has failed aspirin regimen. We will start patient on Plavix 75 mg daily. Recommend continuing dual antiplatelet medication for 21 days, thereafter stop aspirin and continue Plavix indefinitely. Continue Protonix 40 mg daily for gastric ulcer prophylaxis. Hemoglobin A1c 5.7. Lipid panel with cholesterol 111, LDL 61, HDL 27 and triglycerides 112. Continue Lipitor 40 mg daily at bedtime for secondary stroke prophylaxis 2-D echo revealed normal left-ventricular size and systolic function. EF is 55- 60%. Small left ventricular cavity. Borderline LVH. Left atrial size is normal. 2-D echo revealed no obvious embolic source. Patient CVA likely due to ICA stenosis. Antiplatelet regimen changed as above. No definitive indication for ABBY. Carotid Doppler revealed 50-70% stenosis bilateral ICA. Antegrade flow in both vertebral arteries. Vascular surgery team for the carotid stenosis and they felt carotid stenosis at 50%. They did not feel he was a surgical candidate at this time. PT, OT and PROTECTION AGENT are consulted. We'll defer the rest of the medical management to the primary and ICU team For DVT prophylaxis use SCD's. Continue heparin 5000 units subcu every 12 hours. Check B12, folate, TSH. Neurologically clear for transfer to rehab facility after PEG placement. Discussed with Dr. Cali and nursing staff in detail.
[2022-09-13] MEDS: CLOPIDOGREL 75 MG TAB PO SCH (15:02)
[2022-09-13 16:28] LABS: Glucose,Whole Blood 139 mg/dL (70-110)
[2022-09-13] MEDS: LATANOPROST 0.005% OPHTH DROPS 2.5 ML BTL BOTH EYES SCH (22:15)
--- NOTE | 2022-09-13 23:47 | P.PN ---
Subjective Progress Note Date: 09/12/22 Principal diagnosis: Bacteremia Patient is a 76-year-old -Malt[place] male past medical history significant for liver failure status post liver transplant or redness of his medication presented to hospital generalized weakness did have a positive UA concerning for UTI patient subsequently have a positive blood culture. Patient has been extubated 08/29/2022 On today's evaluation that is 09/12/2022, the patient remains to be afebrile, the patient is breathing comfortably on room air , the patient denies any chest pain or shortness of breath, the patient did have occasional dry cough, the patient denies having any nausea no vomiting no abdominal pain Objective - Vital Signs Vital signs: Vital Signs Temp 99.2 F 09/12/22 08:45 Pulse 74 09/12/22 12:01 Resp 16 09/12/22 08:45 BP 108/61 09/12/22 08:45 Pulse Ox 95 09/12/22 08:45 FiO2 21 09/10/22 07:51 Intake & Output 09/11/22 09/12/22 09/12/22 18:59 06:59 18:59 Intake Total 0 Output Total 2175 1050 Balance -2175 -1050 Intake: Tube Feeding 0 Output: Urine 2175 1050 Other: Voiding Method External Catheter External Catheter Diaper Incontinent # Voids 1 # Bowel Movements 2 3 ABP, PAP, CO, CI - Last Documented Arterial Blood Pressure 151/46 - Exam GENERAL DESCRIPTION: An elderly male lying in bed in no distress RESPIRATORY SYSTEM: Unlabored breathing , decreased breath sounds at bases HEART: S1 S2 regular rate and rhythm , ABDOMEN: Soft , no tenderness EXTREMITIES: No edema feet - Labs CBC & Chem 7: 09/12/22 14:37 09/12/22 14:37 Labs: Abnormal Lab Results - Last 24 Hours (Table) 09/12/22 Range/Units 12:05 POC Glucose (mg/dL) 121 H (70-110) mg/dL Assessment and Plan (1) Bacteremia Current Visit: Yes Status: Acute Code(s): R78.81 - BACTEREMIA SNOMED Code(s): 4552177 (2) UTI (urinary tract infection) Current Visit: No Status: Acute Code(s): N39.0 - URINARY TRACT INFECTION, SITE NOT SPECIFIED SNOMED Code(s): 22802880 Plan: 1patient presented to hospital with abdominal pain and nausea and vomiting in this patient did have a positive UA CT abdominal pelvis did not show any acute abnormality abdominal soft medical examination patient did have a positive UA concerning for symptomatic urinary tract infection likely from enteric gram- negative pathogen, patient subsequently did have slight worsening of his respiratory status and concern for possible aspiration pneumonitis. 2 Patient urine culture with Proteus which is a sensitive pathogen however bl ood culture showing ESBL proteus , Patient has continued improvement and the patient has completed a two-week course of Invanz 3patient with MRSA pneumonia in this patient seem to have shown some clinical improvement respiratory status has improved , patient to continue Zyvox to finish his two-week course of therapy 4-patient with diarrhea stool for C. diff has been negative 2 patient to [place] with Imodium as needed Time with Patient: Less than 30
--- NOTE | 2022-09-13 23:48 | P.PN ---
Subjective Progress Note Date: 09/13/22 Principal diagnosis: Bacteremia Patient is a 76-year-old -[place] male past medical history significant for liver failure status post liver transplant or redness of his medication presented to hospital generalized weakness did have a positive UA concerning for UTI patient subsequently have a positive blood culture. Patient has been extubated 08/29/2022 On today's evaluation that is 09/13/2022, the patient continues to be afebrile, the patient is breathing comfortably on room air , the patient denies chest pain shortness with a cough no nausea no vomiting no abdominal pain and no worsening diarrhea reported by the nursing staff Objective - Vital Signs Vital signs: Vital Signs Temp 97.9 F 09/13/22 07:29 Pulse 70 09/13/22 11:10 Resp 18 09/13/22 07:29 BP 129/55 09/13/22 07:29 Pulse Ox 98 09/13/22 07:34 FiO2 21 09/10/22 07:51 Intake & Output 09/12/22 09/13/22 09/13/22 18:59 06:59 18:59 Intake Total 1000 Output Total 1 Balance 999 Weight 102.5 kg Intake: Tube Feeding 1000 Output: Stool 1 Other: Voiding Method Diaper Diaper Diaper Incontinent Incontinent Incontinent # Voids 3 # Bowel Movements 1 3 1 ABP, PAP, CO, CI - Last Documented Arterial Blood Pressure 151/46 - Exam GENERAL DESCRIPTION: An elderly male lying in bed in no distress RESPIRATORY SYSTEM: Unlabored breathing , decreased breath sounds at bases HEART: S1 S2 regular rate and rhythm , ABDOMEN: Soft , no tenderness EXTREMITIES: No edema feet - Labs CBC & Chem 7: 09/12/22 14:37 09/12/22 14:37 Labs: Abnormal Lab Results - Last 24 Hours (Table) 09/12/22 09/12/22 09/12/22 Range/Units 14:37 14:37 16:45 RBC 3.49 L (4.30-5.90) m/uL Hgb 9.5 L (13.0-17.5) gm/dL Hct 30.7 L (39.0-53.0) % Sodium 136 L (137-145) mmol/L BUN 37 H (9-20) mg/dL Glucose 123 H (74-99) mg/dL POC Glucose (mg/dL) 158 H (70-110) mg/dL 09/13/22 09/13/22 Range/Units 00:52 11:25 RBC (4.30-5.90) m/uL Hgb (13.0-17.5) gm/dL Hct (39.0-53.0) % Sodium (137-145) mmol/L BUN (9-20) mg/dL Glucose (74-99) mg/dL POC Glucose (mg/dL) 167 H 121 H (70-110) mg/dL Assessment and Plan (1) Bacteremia Current Visit: Yes Status: Acute Code(s): R78.81 - BACTEREMIA SNOMED Code(s): 7381721 (2) UTI (urinary tract infection) Current Visit: No Status: Acute Code(s): N39.0 - URINARY TRACT INFECTION, SITE NOT SPECIFIED SNOMED Code(s): 49472559 Plan: 1patient presented to hospital with abdominal pain and nausea and vomiting in this patient did have a positive UA CT abdominal pelvis did not show any acute abnormality abdominal soft medical examination patient did have a positive UA concerning for symptomatic urinary tract infection likely from enteric gram- negative pathogen, patient subsequently did have slight worsening of his respiratory status and concern for possible aspiration pneumonitis. 2 Patient urine culture with Proteus which is a sensitive pathogen however blood culture showing ESBL proteus , Patient has continued improvement and the patient has completed a two-week course of Invanz 3patient with MRSA pneumonia in this patient seem to have shown some clinical improvement respiratory status has improved , patient has completed his two-week course of Zyvox which will be discontinued and the patient will monitor closely off antibiotic 4-patient with diarrhea stool for C. diff has been negative 2 patient to continue with Imodium as needed
[2022-09-14 01:16] LABS: Glucose,Whole Blood 98 mg/dL (70-110)
[2022-09-14] MEDS: INSULIN ASPART (NovoLOG) 100 UNIT/ML VIAL SQ SCH ×3 (01:38→13:34)
[2022-09-14 06:02] LABS: Glucose,Whole Blood 191 mg/dL (70-110)
[2022-09-14] MEDS: IPRATROPIUM-ALBUTEROL 3 ML NEB INHALATION SCH ×4 (09:02→19:13)
[2022-09-14] MEDS: PANTOPRAZOLE 40 MG/10 ML VIAL IVP SCH (09:25)
[2022-09-14] MEDS: TACROLIMUS 1 MG CAP PO SCH ×2 (09:25→22:25)
[2022-09-14] MEDS: HEPARIN SODIUM,PORCINE/PF 5,000 UNIT/0.5 ML SYRINGE SQ SCH ×2 (09:25→22:25)
[2022-09-14] MEDS: THIAMINE 100 MG TAB PO SCH (09:26)
[2022-09-14] MEDS: ASPIRIN 81 MG PO SCH (09:27)
[2022-09-14] MEDS: CLOPIDOGREL 75 MG TAB PO SCH (09:27)
[2022-09-14] MEDS: FOLIC ACID 1 MG TAB PO SCH (09:27)
[2022-09-14] MEDS: FUROSEMIDE 20 MG TAB PO SCH ×2 (09:27→18:53)
[2022-09-14] MEDS: LOPERAMIDE 2 MG CAP PO SCH ×3 (09:27→22:24)
[2022-09-14] MEDS: MULTIVITAMINS, THERA LIQUID 237 ML BOTTLE PO SCH (09:28)
[2022-09-14] MEDS: NYSTATIN 100,000 UNIT/ML SUSP 500,000 UNIT/5 ML CUP PO SCH ×3 (09:28→22:25)
[2022-09-14] MEDS ORDERED: BENZOCAINE/MENTHOL LOZENG 1 EACH LOZENGE MUCOUS MEM PRN (10:38)
[2022-09-14 12:23] LABS: Glucose,Whole Blood 177 mg/dL (70-110)
[2022-09-14 16:38] LABS: Glucose,Whole Blood 117 mg/dL (70-110)
--- NOTE | 2022-09-14 18:17 | MR ---
EXAMINATION TYPE: MR angio neck wo/w con DATE OF EXAM: 09/14/2022 6:06 PM CLINICAL INDICATION:Male, 76 years old with history of recent CVA, carotid stenosis; COMPARISON: None TECHNIQUE: Multiplanar, multi-sequence imaging as well as [id number]-up-tehumc and phase contrast imaging w as performed extracranial vasculature of the neck. 3-D reformatted images and maximum intensity proj ection reformatted images were submitted for evaluation. IV Contrast: 10 cc Gadavist FINDINGS: Mild motion artifact limits evaluation. RIGHT CAROTID SYSTEM: The common carotid artery is patent. The carotid bifurcations that she no evide nce for hemodynamically significant stenosis. The internal carotid arteries patent. LEFT CAROTID SYSTEM: The common carotid artery is patent. The carotid bifurcations that she no evide nce for hemodynamically significant stenosis. The internal carotid arteries patent. The origins of the great vessels and vertebral arteries appear unremarkable. The vertebral arteries are codominant.. IMPRESSIONS: 1. No evidence of significant stenosis at the carotid bifurcations. The carotid and vertebral arterie s are patent. 2. No evidence aneurysm.
--- NOTE | 2022-09-14 20:05 | P.PN ---
Subjective 76-year-old male who was recently admitted with multiple medical issues including sepsis with septic shock and acute CVA and is being closely monitored. Patient is maintained in the ICU and is a downgrade waiting a bed on [facility]. Patient is maintained on tube feeds and tolerating and recommend to continue with aspiration precautions with head of the bed elevated 30-45 at all times and monitoring closely for residuals. Multiple medical consultations following including infectious disease and patient is maintained on IV antibiotics. Patie nt is afebrile and is talking although delayed but appears to be alert and oriented and understanding. Patient denies any chest pain or shortness of breath. Patient reports no pain at this time. Recommend PT/OT therapy daily and working on possible ECF. 24 hour interval change 09/10/2022 Patient is seen and evaluated resting comfortably in bed; discussed with nursing staff; no specific complaints reported Vital signs are reviewed and are stable with a temperature of 98.5, pulse 84, respirations 16 and blood pressure 121/52 Remains on PEG tube feeding; tolerating well Plan is to discharge patient to skilled rehab once arrangements are made 09/11/2022 Patient is seen and evaluated sitting up in bed with family at bedside; patient is very awake and alert and responsive; feeding himself from the tray Daughter at bedside and requesting blood work to be completed that is required periodically as outpatient by [facility]; reports she has given the list of labs needed to the RN; would also want neurology to come back and reevaluate patient; reports that she has some concerns about patient's response; patient remains at new baseline; no specific deficit noted or reported 09/12/2022 atient lying in bed comfortably He denies chest pain or dyspnea, no other new complaints Patient is awake and alert and oriented 3 but he has no insight into his illness and patient is very oriented No IV fluid, no Price PEG tube in a Place with feeds running at 50 mm per hour Remains on the same antibiotics Invanz and Zyvox 09/13/2022 No new complaint, patient respect to proceeding and 50 mL/h Patient complains from heartburn today, Pepcid started yesterday swished through Protonix and started on Tums when necessary. No other neurological complaints, neurologist recommended to continue with aspirin and Plavix 21 days then stop aspirin and continue with Plavix. Currently is only on aspirin. Checked with pharmacy patient received 3 doses of Plavix, last one was 08/31, also patient had a procedure for PEG tube placement on 09/02. We will double check within urology service if he should be on both aspirin and Plavix. Patient currently on Zyvox 1 week for his MRSA pneumonia he finishes Invanz for his ESBL Proteus UTI. Plan as per ID team. Patient is medically stable for discharge pending placement, no catheterization today. Discussed with CM/SW 09/14/2022 Patient clinically doing well, no new complaint and said he is a still getting PEG tube feedings at 50 mL per hour However his been having diarrhea therefore going to check for C. diff colitis unlikely and we'll check labs tomorrow morning I discussed the case with his daughter ruiz , and she has some concerns about his diarrhea. All her concerns and questions were answered to her satisfaction. Neurology input is appreciated. MRI of the neck is unremarkable Objective - Vital Signs Vital signs: Vital Signs Temp 98.2 F 09/14/22 14:09 Pulse 73 09/14/22 14:09 Resp 18 09/14/22 14:09 BP 104/63 09/14/22 14:09 Pulse Ox 98 09/14/22 14:09 FiO2 21 09/10/22 07:51 Intake & Output 09/13/22 09/14/22 09/14/22 18:59 06:59 18:59 Weight 102.5 kg Other: Voiding Method Diaper Diaper Incontinent Incontinent External Catheter # Voids 3 3 # Bowel Movements 4 2 2 ABP, PAP, CO, CI - Last Documented Arterial Blood Pressure 151/46 - Exam -GENERAL: The patient is alert and oriented x3, not in any acute distress. Generally weak HEENT: Pupils are round and equally reacting to light. EOMI. No scleral icterus. No conjunctival pallor. Normocephalic, atraumatic. No pharyngeal erythema. No thyromegaly. CARDIOVASCULAR: S1 and S2 present. No murmurs, rubs, or gallops. PULMONARY: Chest is clear to auscultation, no wheezing or crackles. ABDOMEN: Soft, nontender, nondistended, normoactive bowel sounds. No palpable organomegaly. MUSCULOSKELETAL: No joint swelling or deformity. EXTREMITIES: No cyanosis, clubbing, or pedal edema. NEUROLOGICAL: Gross neurological examination did not reveal any focal deficits. SKIN: No rashes. no petechiae. - Labs CBC & Chem 7: 09/12/22 14:37 09/12/22 14:37 Labs: Abnormal Lab Results - Last 24 Hours (Table) 09/12/22 09/13/22 09/14/22 Range/Units 14:37 16:16 06:01 POC Glucose (mg/dL) 139 H 191 H (70-110) mg/dL Vitamin B12 1084.0 H (200.0-944.0) pg/mL 09/14/22 Range/Units 12:22 POC Glucose (mg/dL) 177 H (70-110) mg/dL Vitamin B12 (200.0-944.0) pg/mL Assessment and Plan Assessment: Acute urinary tract infection with ESBL Proteus MRSA pneumonia Status post Acute septic shock, resolved Acute hypoxic respiratory failure Chronic kidney disease, stage II Gastroesophageal reflux disease Hypertension Osteoarthritis 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 diff Continue with antibiotic per ID team, currently on Zyvox we'll double check within urology aspirin/Plavix treatment Infectious disease consult on the case as well as chief quality officer Several consults evaluated the patient with congenital surgery and neurologist. Pulmonary team already evaluated the patient and sign off the case Continue with antirejection treatment for his history of liver transplant Labs and medication were reviewed.. Continue same treatment. Continue with symptomatic treatment. Resume home medication. Monitor labs and vitals. DVT and GI prophylaxis. Further recommendations as per clinical course of the patient DVT prophylaxis: Subcutaneous heparin GI Prophylaxis: Ppi PT/OT: Recommend subacute rehab Prognosis is guarded
--- NOTE | 2022-09-14 21:37 | P.PN ---
Subjective Progress Note Date: 09/14/22 09/14/2022: Patient was seen for a follow-up. Patient is laying comfortably in the bed. Patient denies headache. Patient is getting more cognitively improved. Patient wondering as to the delay in transfer to rehab facility. 09/13/2022: Patient was seen for a follow-up at request of Dr. Cali. Patient is now on the regular floor in bed #[id number]. He has improved a lot. Offers no new complaints. 09/02/2022: Patient was seen for a follow-up. Patient is laying comfortably in the bed. Family members not present today. Patient clinically unchanged. 09/01/2022: Patient was seen for a follow-up. Patient's daughter was present today. Patient is showing clinical improvement, slow steady, as per examination below. Patient has failed swallow. Patient is undergoing PEG tube placement in the morning. His daughter has given the consent. 08/31/2022: Patient was seen for a follow-up. Patient clinically and changes compared to yesterday. Patient is laying in the bed. Has NG tube in place. 08/30/2022: Patient was seen for a follow-up. Patient is much more alert and awake. Still somewhat groggy, slightly encephalopathic. Patient denies headache. Patient is laying comfortably in the bed. No arrhythmia. 08/29/2022: Patient was seen for a follow-up. Patient initially seen by Dr. Poncho De Santiago. Please refer to his note for details. Patient is a 76-year-old right-handed male who has presented with acute left parietal stroke with right hemiplegia. Patient was initially intubated, placed on a ventilator because he was not able to protect his airway. EEG was negative for seizure. Patient has no significant carotid stenosis about 50%. CTA of the head and neck worse recommended once his kidney functions improved. Patient not on any antiplatelet medication because he was thrombocytopenic. Family requested patient to be transferred to [facility], but it has been declined. Repeat computed tomography scan was performed. Patient was seen for a follow-up. Patient's grandson was present. He called his aunt, who is a caregiver to the patient and she was present over the speaker phone. Patient has been extubated earlier today. Patient is on contact isolation for MRSA. Patient's right arm and right leg is flaccid. He has severely garbled speech. Patient has been on aspirin 81 mg daily prior to arrival to the hospital. Prior workup: Urine culture is positive for Proteus mirabilis. Blood culture is positive for Proteus mirabilis Lipid panel is triglyceride 112, cholesterol 111, LDL is 61, HDL is 27. Ammonia level is less than [address] of the head is reported as cerebral atrophy. Old small cortical infarct in the left internal capsule. No acute abnormality. CT angiography of the head and neck is reported as angiogram is nondiagnostic since there is no vascular contrast. There is cerebral or cortical atrophy. No acute intercranial abnormality. No significant abnormality of the neck. Mild spondylitic changes in the cervical spine. Repeat CT of the head as reported as there is a 4 cm poorly marginated area of hypodensity in the left parietal lobe consistent with acute infarct and isn't changed compared to recent exam. No hemorrhage seen. Cerebral atrophy. Then later, reading radiologist has addendum and reports it is that acute infarct is a change compared to recent exam. I personally reviewed the CT of the head on the most recent CT that was done last and I felt the left parietal seemed acute. There is no intraparenchymal hemorrhage. And then I was compared it to initial CT head on presentation, I felt different in which, I did not notice any remarkable acute ischemic in left parietal on initial CT. Carotid duplex was reported as there is bilateral plaque formation. There is bilateral mild elevation of internal carotid artery velocity. There is antegrade flow in the vertebral arteries. The images and measurements suggest 50-70% stenosis in both internal carotid arteries. Repeat CT head on 08/25/2022 is reported as increased size of low attenuation region in the medial left frontal/parietal lobe consistent with evolving acute/subacute infarct compared to the prior CT brain on 08/23/2022. No evidence for hemorrhagic conversion. I personally reviewed the image and I do agree there is evolution of the stroke but I feel mostly it's over the left parietal stroke than frontal. Routine EEG on 08/25/2022: Is abnormal. The background slowing suggestive of moderate encephalopathy. There is no focal slowing, epileptiform discharge or seizure on the EEG. Excessive beta activity and some diffuse suppression seen during the study is likely due to medication effect (Ativan). 2D echo is reported as likely normal left ventricle size and systolic function. Normal left atrial size. Objective - Vital Signs Vital signs: Vital Signs Temp 98.2 F 09/14/22 14:09 Pulse 73 09/14/22 14:09 Resp 18 09/14/22 14:09 BP 104/63 09/14/22 14:09 Pulse Ox 98 09/14/22 14:09 FiO2 21 09/10/22 07:51 Intake & Output 09/14/22 09/14/22 09/15/22 06:59 18:59 06:59 Other: Voiding Method Diaper Incontinent External Catheter # Voids 3 3 # Bowel Movements 2 2 ABP, PAP, CO, CI - Last Documented Arterial Blood Pressure 151/46 - Exam Patient is fully alert and awake. Patient knows it is August and the year is 2021 and that he is in [facility] in [place]. He knows name of the current president Mr. Joe Bah. He knows his age 76 and his date of 1945. Speech and language functions are normal. Cranial nerves are normal. Visual hardy are full, extraocular muscles are intact, face is symmetric. On muscle strength testing (right/left) deltoid 3+4-/5, biceps 4+/5, triceps 4+/5, channel rebuilder 4/4+. In the lower limbs hip flexion 1-2/4+, ankle dorsiflexion 4- /5. Sensory touch is decreased in the right leg as compared to the left. The sensations are equal on the face and upper limbs. Patient has peripheral edema. - Labs CBC & Chem 7: 09/12/22 14:37 09/12/22 14:37 Labs: Abnormal Lab Results - Last 24 Hours (Table) 09/12/22 09/14/22 09/14/22 Range/Units 14:37 06:01 12:22 POC Glucose (mg/dL) 191 H 177 H (70-110) mg/dL Vitamin B12 1084.0 H (200.0-944.0) pg/mL 09/14/22 Range/Units 16:37 POC Glucose (mg/dL) 117 H (70-110) mg/dL Vitamin B12 (200.0-944.0) pg/mL Assessment and Plan Assessment: * Acute ischemic stroke over left parietal region in the left STEVE territory with right hemiparesis, leg much more involved as compared to the right arm. Mechanism of stroke likely from moderate bilateral ICA stenosis. * Altered mental status seems due to metabolic encephalopathy, remarkably improved. * Dysphagia, likely due to CVA, status post packed placement 09/02/2022. Patient's dysphagia has improved. Patient on CHOP dysphagia 3 diet. * Carotid stenosis 50-70% bilateral ICA on carotid duplex but was felt just at 50% by vascular surgery team. * Sepsis (likely due to UTI and blood is positive for proteus species) * Renal insufficiency, resolved * Elevated liver function, resolved. * History of old stroke with some weakness possible lower weakness but was able to ambulate * History of liver failure s/p transplant Plan: Patient's examination has much improved as compared to the previous exam from 09/02/2022. Patient's mentation, speech language functions as well as strength is improved. Right leg continues to be weak. Repeat CT head from 08/28/2022 revealed stable posterior left centrum semiovale infarct. I personally reviewed CT head, appears to involve the left STEVE territory involving the left parietal region. No hemorrhage. Patient has failed aspirin regimen. We will start patient on Plavix 75 mg daily. Recommend continuing dual antiplatelet medication for 21 days, thereafte r stop aspirin and continue Plavix indefinitely. Continue Protonix 40 mg daily for gastric ulcer prophylaxis. Hemoglobin A1c 5.7. Lipid panel with cholesterol 111, LDL 61, HDL 27 and triglycerides 112. Continue Lipitor 40 mg daily at bedtime for secondary stroke prophylaxis 2-D echo revealed normal left-ventricular size and systolic function. EF is 55- 60%. Small left ventricular cavity. Borderline LVH. Left atrial size is normal. 2-D echo revealed no obvious embolic source. Patient CVA likely due to ICA stenosis. Antiplatelet regimen changed as above. Carotid Doppler revealed 50-70% stenosis bilateral ICA. Antegrade flow in both vertebral arteries. Vascular surgery team for the carotid stenosis and they felt carotid stenosis at 50%. They did not feel he was a surgical candidate at this time. PT, OT and [employer] are consulted. We'll defer the rest of the medical management to the primary and ICU team For DVT prophylaxis use SCD's. Continue heparin 5000 units subcu every 12 hours. Check B12, folate, TSH. Neurologically clear for transfer to rehab facility. Addendum: 3:04 PM patient scheduling manager sent a perfect serve, that patient's daughter Thais (phone number [phone]) wanted to talk to a neurologist. I spoke to patient's daughter in detail. She was wondering about the cause of the stroke, about risk of recurrent strokes, and his overall prognosis "when he will get back to normal". Informed her that apparently we are suspecting carotid disease as the cause of stroke. She was concerned about risk of recurrent strokes. Therefore I did order an MRA of carotid with and without contrast and suggested possible vascular surgical reconsultation. Apparently MRA of the neck was done, which came back as negative. Patient's stroke remains of unclear etiology. There is no significant carotid stenosis. Patient was taking aspirin prior to arrival. We will therefore consult cardiology to rule out any cardioembolic source. Recommend a ABBY and an event monitor to rule out embolic source. Patient's daughter also had numerous questions about prognosis. Informed her about patient's current clinical condition. Patient has improved remarkably as compared to his condition earlier during hospital stay. Patient's daughter was informed, that he is showing clinical improvement appropriately, however uncertain as to what extent patient will improve. It appears patient probably may have residual deficits particularly in the right leg, due to the location of the CVA. I spent 15 minutes on the phone with counseling and coordinating care. Dr. Poncho De Santiago Will resume neurology service in the morning.
[2022-09-14] MEDS: LATANOPROST 0.005% OPHTH DROPS 2.5 ML BTL BOTH EYES SCH (22:25)
[2022-09-15] MEDS: INSULIN ASPART (NovoLOG) 100 UNIT/ML VIAL SQ SCH ×5 (01:27→16:48)
[2022-09-15 01:33] LABS: Glucose,Whole Blood 105 mg/dL (70-110)
[2022-09-15 06:02] LABS: Glucose,Whole Blood 97 mg/dL (70-110)
[2022-09-15] MEDS: IPRATROPIUM-ALBUTEROL 3 ML NEB INHALATION SCH ×4 (08:43→19:26)
[2022-09-15 10:07] LABS: African American GFR (CKD) 74.7 (60.0-200.0); BUN/Creat Ratio 30.91 Ratio (12.00-20.00); Magnesium 1.8 mg/dL (1.5-2.4); Non-African American GFR(CKD) 64.4 (60.0-200.0); Potassium 4.5 mmol/L (3.5-5.5)
[2022-09-15] MEDS: ASPIRIN 81 MG PO SCH (11:11)
[2022-09-15] MEDS: TACROLIMUS 1 MG CAP PO SCH ×2 (11:11→21:44)
[2022-09-15] MEDS: CLOPIDOGREL 75 MG TAB PO SCH (11:11)
[2022-09-15] MEDS: THIAMINE 100 MG TAB PO SCH (11:11)
[2022-09-15] MEDS: FOLIC ACID 1 MG TAB PO SCH (11:12)
[2022-09-15] MEDS: FUROSEMIDE 20 MG TAB PO SCH ×2 (11:12→16:42)
[2022-09-15] MEDS: LOPERAMIDE 2 MG CAP PO SCH ×3 (11:12→22:14)
[2022-09-15] MEDS: HEPARIN SODIUM,PORCINE/PF 5,000 UNIT/0.5 ML SYRINGE SQ SCH ×2 (11:12→21:44)
[2022-09-15] MEDS: PANTOPRAZOLE 40 MG/10 ML VIAL IVP SCH (11:13)
[2022-09-15] MEDS: NYSTATIN 100,000 UNIT/ML SUSP 500,000 UNIT/5 ML CUP PO SCH ×4 (11:14→21:44)
[2022-09-15] MEDS: MULTIVITAMINS, THERA LIQUID 237 ML BOTTLE PO SCH (11:14)
[2022-09-15 11:33] LABS: Glucose,Whole Blood 92 mg/dL (70-110)
--- NOTE | 2022-09-15 12:31 | P.CRDCN ---
History of Present Illness Consult date: 09/15/22 Requesting physician: Kari Bridges Reason for Consult (text): Embolic stroke, suggest ABBY Chief complaint: CVA History of present illness: This is a pleasant 76-year-old gentleman with a history of hypertension, history of CVA in 2017 at which time a ABBY showed no evidence of cardiac source of embolization, liver disease status post liver transplant x2 for which he follows at [facility], was admitted on August 23 with symptoms of right-sided weakness patient was found to have CVA and required intubation as well as PEG tube placement. He was also positive for UTI and sepsis with acute kidney injury. He continues to have right-sided weakness which has been improving slowly. Initially felt to have 50-79% carotid artery stenosis which was felt to be cause for CVA however further evaluation including MRA showed no evidence of significant stenosis at the carotid bifurcations with patent carotid and vertebral arteries. Family has been quite concerned of the possibility of recurrence of CVA especially due to his unclear etiology. We have been asked to the patient in consultation for possible ABBY. Patient has been on telemetry with no evidence of atrial fibrillation. Patient denies history of arrhythmia and has had no complaints of chest discomfort. He believes he previously fol lowed with human resources consultant but has not seen him in several years. Echocardiogram with Doppler study done on the of last month showed normal LV systolic function with an ejection fraction of 55-60% without significant valvular abnormalities. 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 Past Anesthesia/Blood Transfusion Reactions: No Reported Reaction Additional Past Anesthesia/Blood Transfusion Reaction / Comment(s): Pt received blood in past without reaction. hx jaw fx- had surgery and has a plate. a little confusion when first waking up Past Psychological History: No Psychological Hx Reported Smoking Status: Never smoker Past Alcohol Use History: None Reported Past Drug Use History: None Reported - Past Family History Father Family Medical History: Cancer Additional Family Medical History / Comment(s): Father was healthy. He around the age of 83 yrs. Mother Family Medical History: Myocardial Infarction (CT) Additional Family Medical History / Comment(s): Mother of a CT at the age of 83 yrs. Medications and Allergies Home Medications Medication Instructions Recorded Confirmed Type Metoprolol Succinate [Toprol XL] 50 mg PO HS 07/20/15 08/23/22 History Tacrolimus [Prograf] 0.5 mg PO BID 07/20/15 08/23/22 History Tamsulosin [Flomax] 0.4 mg PO HS 07/20/15 08/23/22 History dexAMETHasone ORAL [Hexadrol] 0.5 mg PO HS 07/20/15 08/23/22 History mycophenolate mofetiL [Cellcept] 1,000 mg PO BID 07/20/15 08/23/22 History Pravastatin Sodium [Pravachol] 10 mg PO HS 03/03/17 08/23/22 History Aspirin EC [Ecotrin Low Dose] 81 mg PO HS 03/08/21 08/23/22 History Latanoprost [Xalatan 0.005%] 1 drop BOTH EYES HS 11/28/21 08/23/22 History Cholecalciferol [Vitamin D3 (125 125 mcg PO HS 08/23/22 08/23/22 History Mcg = 5000 Iu)] Multivitamins, Thera [Multivitamin 1 tab PO HS 08/23/22 08/23/22 History (formulary)] Omeprazole Magnesium [PriLOSEC OTC] 20 mg PO HS 08/23/22 08/23/22 History Allergies Allergy/AdvReac Type Severity Reaction Status Date / Time No Known Allergies Allergy Verified 08/23/22 07:35 Physical Exam Vitals: Vital Signs Temp Pulse Pulse Resp BP Pulse Ox 09/15/22 08:44 99 09/15/22 08:00 97.9 F 71 16 108/48 98 09/15/22 02:00 98.1 F 76 117/57 99 09/14/22 20:00 98.0 F 78 17 123/65 100 09/14/22 14:09 98.2 F 73 18 104/63 98 09/14/22 11:58 72 09/14/22 11:49 71 Intake and Output 09/14/22 09/15/22 09/15/22 22:59 06:59 14:59 Output Total 350 Balance -350 Output: Urine 350 Other: Voiding Method Urinal Urinal Diaper Diaper Incontinent Incontinent # Voids 2 2 # Bowel Movements 1 1 Weight 96 kg PHYSICAL EXAMINATION: This is a 76-year-old male in no apparent distress at the time of my examination. HEENT: Head is atraumatic, normocephalic. Pupils are equal, round. Sclerae anicteric. Conjunctivae are clear. Mucous membranes of the mouth are moist. Neck is supple. There is no elevated jugular venous pressure. No carotid bruit is heard. CHEST EXAMINATION: Clear to auscultation bilaterally. No wheezes rales or rhonchi. Respirations even and nonlabored. HEART EXAMINATION: Heart regular, positive S1 and S2. No S3. No S4. No clicks, rubs or murmurs. ABDOMEN: Soft, nontender. Bowel sounds are heard. No organomegaly noted. EXTREMITIES: 2+ peripheral pulses with evidence of mild right lower extremity edema and no calf tenderness noted. NEUROLOGIC EXAMINATION: Patient is awake, alert and oriented x3. He continues to have some delay in his verbal response as well as right sided weakness Results 09/12/22 14:37 09/15/22 06:23 Comprehensive Metabolic Panel 09/15/22 Range/Units 06:23 Sodium 134 L (135-145) mmol/L Potassium 4.5 (3.5-5.5) mmol/L Chloride 100 (96-109) mmol/L Carbon Dioxide 24.0 (20.0-27.5) mmol/L BUN 34.0 H (9.0-27.0) mg/dL Creatinine 1.1 (0.6-1.5) mg/dL Glucose 92 (70-110) mg/dL Calcium 9.0 (8.7-10.3) mg/dL Current Medications Generic Name Dose Route Start Last Admin Trade Name Freq PRN Reason Stop Dose Admin Albuterol/Ipratropium 3 ml 08/31/22 12:00 09/15/22 08:43 Ipratropium-Albuterol 3 Ml Neb INHALATION Not Given RT-QID TAMARA Aspirin 81 mg 08/30/22 09:00 09/14/22 09:27 Aspirin 81 Mg PO 81 mg DAILY TAMARA Administration Calcium Carbonate/Glycine 1,000 mg 09/13/22 08:18 Calcium Carbonate 500 Mg Chewable PO QID PRN Heartburn Clopidogrel Bisulfate 75 mg 09/13/22 13:15 09/14/22 09:27 Clopidogrel 75 Mg Tab PO 75 mg DAILY TAMARA Administration Dexamethasone 0.5 mg 09/11/22 09:00 09/14/22 09:27 Dexamethasone 0.5 Mg Tab PO 0.5 mg DAILY TAMARA Administration Folic Acid 1 mg 09/08/22 15:00 09/14/22 09:27 Folic Acid 1 Mg Tab PO 1 mg DAILY TAMARA Administration Furosemide 20 mg 09/09/22 16:00 09/14/22 18:53 Furosemide 20 Mg Tab PO 20 mg BID@0900,1600 TAMARA Administration Heparin Sodium (Porcine) 5,000 unit 08/29/22 21:00 09/14/22 22:25 Heparin Sodium,Porcine/Pf 5,000 Unit/0.5 Ml Syringe SQ 5,000 unit Q12HR TAMARA Administration Insulin Aspart 0 unit 08/26/22 12:00 09/15/22 06:29 Insulin Aspart (Novolog) 100 Unit/Ml Vial SQ Not Given Q6H [facility] Protocol Iron/Minerals/Multivitamins 15 ml 09/08/22 15:15 09/14/22 09:28 Multivitamins, Thera Liquid 237 Ml Bottle PO 15 ml DAILY TAMARA Administration Latanoprost 1 drops 08/23/22 21:00 09/14/22 22:25 Latanoprost 0.005% Ophth Drops 2.5 Ml Btl BOTH EYES 1 drops HS TAMARA Administration Loperamide HCl 2 mg 09/06/22 13:15 Loperamide 2 Mg Cap PO QID PRN Diarrhea Loperamide HCl 2 mg 09/09/22 12:30 09/14/22 22:24 Loperamide 2 Mg Cap PO 2 mg TID TAMARA Administration Miscellaneous Information 1 each 09/03/22 12:06 Potassium Replacement Protocol 1 Each Misc MISCELLANE DAILY PRN Per Protocol Protocol Miscellaneous Information 1 each 09/07/22 15:49 Magnesium Replacement Protocol 1 Each Misc MISCELLANE DAILY PRN Per Protocol Protocol Mycophenolate Mofetil 1,000 mg 09/05/22 23:00 09/14/22 22:25 Mycophenolate Mofetil 250 Mg Cap PO 1,000 mg BID TAMARA Administration Naloxone HCl 0.2 mg 08/23/22 05:50 Naloxone 0.4 Mg/Ml 1 Ml Vial IV Q2M PRN Opioid Reversal Nystatin 500,000 unit 09/02/22 13:00 09/14/22 22:25 Nystatin 100,000 Unit/Ml Susp 500,000 Unit/5 Ml Cup PO 500,000 unit QID TAMARA Administration Protocol Ondansetron HCl 4 mg 08/23/22 05:50 09/10/22 23:48 Ondansetron 4 Mg/2 Ml Vial IVP 4 mg Q8HR PRN Administration Nausea And Vomiting Pantoprazole Sodium 40 mg 09/13/22 09:00 09/14/22 09:25 Pantoprazole 40 Mg/10 Ml Vial IVP 40 mg DAILY TAMARA Administration Tacrolimus 1 mg 09/08/22 21:00 09/14/22 22:25 Tacrolimus 1 Mg Cap PO 1 mg BID TAMARA Administration Thiamine HCl 100 mg 09/08/22 15:00 09/14/22 09:26 Thiamine 100 Mg Tab PO 100 mg DAILY TAMARA Administration Intake and Output 09/14/22 09/15/22 09/15/22 22:59 06:59 14:59 Output Total 350 Balance -350 Output: Urine 350 Other: Voiding Method Urinal Urinal Diaper Diaper Incontinent Incontinent # Voids 2 2 # Bowel Movements 1 1 Weight 96 kg 09/12/22 14:37 09/15/22 06:23 Assessment and Plan Assessment: #1 CVA #2 hypertension #3 hypothyroidism #4 urinary tract infection with sepsis, improving #5 history of liver transplant Plan: We will scheduled the patient for ABBY to be done tomorrow. Discussed the procedure as well as risks and benefits with the patient. FILLER PICKER note has been reviewed, I agree with a documented findings and plan of care. Patient was seen and examined.
--- NOTE | 2022-09-15 13:43 | P.PN ---
Subjective 76-year-old male who was recently admitted with multiple medical issues including sepsis with septic shock and acute CVA and is being closely monitored. Patient is maintained in the ICU and is a downgrade waiting a bed on [facility]. Patient is maintained on tube feeds and tolerating and recommend to continue with aspiration precautions with head of the bed elevated 30-45 at all times and monitoring closely for residuals. Multiple medical consultations following including infectious disease and patient is maintained on IV antibiotics. Patie nt is afebrile and is talking although delayed but appears to be alert and oriented and understanding. Patient denies any chest pain or shortness of breath. Patient reports no pain at this time. Recommend PT/OT therapy daily and working on possible ECF. 24 hour interval change 09/10/2022 Patient is seen and evaluated resting comfortably in bed; discussed with nursing staff; no specific complaints reported Vital signs are reviewed and are stable with a temperature of 98.5, pulse 84, respirations 16 and blood pressure 121/52 Remains on PEG tube feeding; tolerating well Plan is to discharge patient to skilled rehab once arrangements are made 09/11/2022 Patient is seen and evaluated sitting up in bed with family at bedside; patient is very awake and alert and responsive; feeding himself from the tray Daughter at bedside and requesting blood work to be completed that is required periodically as outpatient by [facility]; reports she has given the list of labs needed to the RN; would also want neurology to come back and reevaluate patient; reports that she has some concerns about patient's response; patient remains at new baseline; no specific deficit noted or reported 09/12/2022 atient lying in bed comfortably He denies chest pain or dyspnea, no other new complaints Patient is awake and alert and oriented 3 but he has no insight into his illness and patient is very oriented No IV fluid, no Price PEG tube in a Place with feeds running at 50 mm per hour Remains on the same antibiotics Invanz and Zyvox 09/13/2022 No new complaint, patient respect to proceeding and 50 mL/h Patient complains from heartburn today, Pepcid started yesterday swished through Protonix and started on Tums when necessary. No other neurological complaints, neurologist recommended to continue with aspirin and Plavix 21 days then stop aspirin and continue with Plavix. Currently is only on aspirin. Checked with pharmacy patient received 3 doses of Plavix, last one was 08/31, also patient had a procedure for PEG tube placement on 09/02. We will double check within urology service if he should be on both aspirin and Plavix. Patient currently on Zyvox 1 week for his MRSA pneumonia he finishes Invanz for his ESBL Proteus UTI. Plan as per ID team. Patient is medically stable for discharge pending placement, no catheterization today. Discussed with CM/SW 09/14/2022 Patient clinically doing well, no new complaint and said he is a still getting PEG tube feedings at 50 mL per hour However his been having diarrhea therefore going to check for C. diff colitis unlikely and we'll check labs tomorrow morning I discussed the case with his daughter ruiz , and she has some concerns about his diarrhea. All her concerns and questions were answered to her satisfaction. Neurology input is appreciated. MRI of the neck is unremarkable 09/15/2022 patient awake and alert and interactive. He follows commands appropriately. However he is hard of hearing and slow to respond Patient still complains from the to lose a stool, no abdominal pain or vomiting and he tolerates PEG tube in. He is on Imodium when necessary. Also cartilages are planning for a ABBY tomorrow. Patient remains on aspirin and Plavix Objective - Vital Signs Vital signs: Vital Signs Temp 98.2 F 09/14/22 14:09 Pulse 73 09/14/22 14:09 Resp 18 09/14/22 14:09 BP 104/63 09/14/22 14:09 Pulse Ox 98 09/14/22 14:09 FiO2 21 09/10/22 07:51 Intake & Output 09/13/22 09/14/22 09/14/22 18:59 06:59 18:59 Weight 102.5 kg Other: Voiding Method Diaper Diaper Incontinent Incontinent External Catheter # Voids 3 3 # Bowel Movements 4 2 2 ABP, PAP, CO, CI - Last Documented Arterial Blood Pressure 151/46 - Exam -GENERAL: The patient is alert and oriented x3, not in any acute distress. Generally weak HEENT: Pupils are round and equally reacting to light. EOMI. No scleral icterus. No conjunctival pallor. Normocephalic, atraumatic. No pharyngeal erythema. No thyromegaly. CARDIOVASCULAR: S1 and S2 present. No murmurs, rubs, or gallops. PULMONARY: Chest is clear to auscultation, no wheezing or crackles. ABDOMEN: Soft, nontender, nondistended, normoactive bowel sounds. No palpable organomegaly. MUSCULOSKELETAL: No joint swelling or deformity. EXTREMITIES: No cyanosis, clubbing, or pedal edema. NEUROLOGICAL: Gross neurological examination did not reveal any focal deficits. SKIN: No rashes. no petechiae. - Labs CBC & Chem 7: 09/12/22 14:37 09/15/22 06:23 Labs: Abnormal Lab Results - Last 24 Hours (Table) 09/12/22 09/13/22 09/14/22 Range/Units 14:37 16:16 06:01 POC Glucose (mg/dL) 139 H 191 H (70-110) mg/dL Vitamin B12 1084.0 H (200.0-944.0) pg/mL 09/14/22 Range/Units 12:22 POC Glucose (mg/dL) 177 H (70-110) mg/dL Vitamin B12 (200.0-944.0) pg/mL Assessment and Plan Assessment: Acute urinary tract infection with ESBL Proteus MRSA pneumonia Status post Acute septic shock, resolved Acute hypoxic respiratory failure Chronic kidney disease, stage II Gastroesophageal reflux disease Hypertension Osteoarthritis Cryptogenic liver with jaundice and has had 2 past liver transplants follows at [facility] Plan: Check for C. diff Continue with antibiotic per ID team, currently on Zyvox we'll double check within urology aspirin/Plavix treatment Infectious disease consult on the case as well as manager strategic sourcing Several consults evaluated the patient with congenital surgery and neurologist. Pulmonary team already evaluated the patient and sign off the case Continue with antirejection treatment for his history of liver transplant Labs and medication were reviewed.. Continue same treatment. Continue with symptomatic treatment. Resume home medication. Monitor labs and vitals. DVT and GI prophylaxis. Further recommendations as per clinical course of the patient DVT prophylaxis: Subcutaneous heparin GI Prophylaxis: Ppi PT/OT: Recommend subacute rehab Prognosis is guarded
--- NOTE | 2022-09-15 16:00 | P.PN ---
Subjective Progress Note Date: 09/02/22 Principal diagnosis: Bacteremia Patient is a 76-year-old -[place] male past medical history significant for liver failure status post liver transplant or redness of his medication presented to hospital generalized weakness did have a positive UA concerning for UTI patient subsequently did have a positive blood culture. Patient has been extubated 08/29/2022 On today's evaluation that is 09/02/2022 patient remains to be afebrile, the patient is breathing comfortably currently on room air patient denies having any chest pain no worsening cough or sputum production abdominal pain and no worsening output in the fecal management system per the nursing staff Objective - Vital Signs Vital signs: Vital Signs Temp 97.7 F 09/02/22 08:00 Pulse 97 09/02/22 15:35 Resp 17 09/02/22 12:00 BP 131/61 09/02/22 12:00 Pulse Ox 94 L 09/02/22 12:00 FiO2 2 09/01/22 07:14 Intake & Output 09/01/22 09/02/22 09/02/22 18:59 06:59 18:59 Intake Total 725 1230 295 Output Total 1475 1580 705 Balance -750 -350 -410 Weight 104.5 kg 104.5 kg Intake: IV 600 950 250 Linezolid 600 mg In 300 Dextrose/Water 1 300ml. bag @ 150 mls/hr IVPB Q12HR@0000,1200 [facility] Rx#: [id number] Sodium Chloride 0.9% 1, 600 650 150 000 ml @ 50 mls/hr IV . Q20H [facility] Rx#:[id number] Tube Feeding 125 250 15 Other 30 30 Output: Urine 1475 1550 675 Stool 30 30 Other: Voiding Method Indwelling Catheter Indwelling Catheter Indwelling Catheter # Voids 85 ABP, PAP, CO, CI - Last Documented Arterial Blood Pressure 151/46 - Exam GENERAL DESCRIPTION: An elderly male lying in bed in no distress RESPIRATORY SYSTEM: Unlabored breathing , decreased breath sounds at bases HEART: S1 S2 regular rate and rhythm , ABDOMEN: Soft , no tenderness EXTREMITIES: No edema feet - Labs CBC & Chem 7: 09/03/22 06:10 09/03/22 06:10 Labs: Abnormal Lab Results - Last 24 Hours (Table) 09/02/22 09/02/22 09/02/22 Range/Units 07:17 09:41 12:09 RBC 3.33 L (4.30-5.90) m/uL Hgb 9.0 L (13.0-17.5) gm/dL Hct 28.2 L (39.0-53.0) % BUN 29 H (9-20) mg/dL POC Glucose (mg/dL) 112 H (70-110) mg/dL Calcium 7.8 L (8.4-10.2) mg/dL Assessment and Plan (1) Bacteremia Current Visit: Yes Status: Acute Code(s): R78.81 - BACTEREMIA SNOMED Code(s): 2018947 (2) UTI (urinary tract infection) Current Visit: No Status: Acute Code(s): N39.0 - URINARY TRACT INFECTION, S ITE NOT SPECIFIED SNOMED Code(s): 94574782 Plan: 1patient presented to hospital with abdominal pain and nausea and vomiting in this patient did have a positive UA CT abdominal pelvis did not show any acute abnormality abdominal soft medical examination patient did have a positive UA concerning for symptomatic urinary tract infection likely from enteric gram- negative pathogen, patient subsequently did have slight worsening of his respiratory status and concern for possible aspiration pneumonitis. 2 Patient urine was Proteus which was a sensitive pathogen however blood culture showing ESBL proteus , Patient to continue with investigation 2-week course of therapy. 3patient with MRSA pneumonia in this patient seem to have shown some clinical improvement respiratory status has improved we will continue with Zyvox to finish his 2-week course of therapy. Family the bedside questions concerns answered
[2022-09-15 16:06] LABS: Glucose,Whole Blood 109 mg/dL (70-110)
[2022-09-15 20:44] LABS: Glucose,Whole Blood 105 mg/dL (70-110)
[2022-09-15] MEDS: LATANOPROST 0.005% OPHTH DROPS 2.5 ML BTL BOTH EYES SCH (21:44)
[2022-09-16 00:06] LABS: Glucose,Whole Blood 101 mg/dL (70-110)
[2022-09-16] MEDS: INSULIN ASPART (NovoLOG) 100 UNIT/ML VIAL SQ SCH ×5 (00:20→22:49)
[2022-09-16 06:27] LABS: Glucose,Whole Blood 107 mg/dL (70-110)
[2022-09-16] MEDS: NYSTATIN 100,000 UNIT/ML SUSP 500,000 UNIT/5 ML CUP PO SCH ×4 (08:04→22:49)
[2022-09-16] MEDS: ASPIRIN 81 MG PO SCH (08:05)
[2022-09-16] MEDS: CLOPIDOGREL 75 MG TAB PO SCH (08:05)
[2022-09-16] MEDS: TACROLIMUS 1 MG CAP PO SCH ×2 (08:05→20:52)
[2022-09-16] MEDS: LOPERAMIDE 2 MG CAP PO SCH ×3 (08:05→20:52)
[2022-09-16] MEDS: THIAMINE 100 MG TAB PO SCH (08:06)
[2022-09-16] MEDS: MULTIVITAMINS, THERA LIQUID 237 ML BOTTLE PO SCH (08:06)
[2022-09-16] MEDS: HEPARIN SODIUM,PORCINE/PF 5,000 UNIT/0.5 ML SYRINGE SQ SCH ×2 (08:06→20:52)
[2022-09-16] MEDS: FUROSEMIDE 20 MG TAB PO SCH ×2 (08:06→16:35)
[2022-09-16] MEDS: FOLIC ACID 1 MG TAB PO SCH (08:06)
[2022-09-16] MEDS: IPRATROPIUM-ALBUTEROL 3 ML NEB INHALATION SCH ×4 (09:30→19:32)
[2022-09-16] MEDS: PANTOPRAZOLE 40 MG/10 ML VIAL IVP SCH (10:55)
[2022-09-16] MEDS ORDERED: fentaNYL (PF) 50 MCG/ML 2 ML AMP ONE (11:23)
[2022-09-16] MEDS ORDERED: SODIUM CHLORIDE 0.9% 500 ML 500 ML IV ONE (11:47)
[2022-09-16] MEDS: BENZOCAINE SPRAY 1 CAN MUCOUS MEM ONE ×2 (11:50→11:52)
[2022-09-16] MEDS ORDERED: MIDAZOLAM 2 MG/2 ML VIAL IV ONE (11:53)
[2022-09-16] MEDS: fentaNYL (PF) 50 MCG/ML 2 ML AMP IV ONE ×2 (11:53→11:55)
--- NOTE | 2022-09-16 12:38 | P.PCN ---
Date of Procedure: 09/16/22 Description of Procedure: Indication: Evaluation of cardiac source of embolus Procedure Description: After explaining the procedure to the patient, it's risk and complications, blood pressure, heart rate and O2 saturation were monitored. The throat was sprayed with Cetacaine. Patient received 2 mg intravenous Versed, 50 mcg intravenous fentanyl. The probe was introduced into the esophagus without difficulty. Images were obtained. Following that, the probe was removed. There was no immediate complication. Findings: Left atrial size is normal, left atrial appendage is normal. Left ventricular size and function are normal. The aortic valve revealed fibrocalcific changes of the aortic cusps with preserved opening, mitral valve annulus calcification was noted. The tricuspid valve appears to be normal. No pericardial effusion was noted. Descending thoracic aortic appears to be normal. Contrast bubble study revealed no shunting across the intra-atrial septum Doppler: Pulse wave and color Doppler were obtained, mild mitral and tricuspid regurgitation. There was no shunting at color Doppler study Conclusion: 1. Normal left ventricle size and systolic function 2. Mild mitral and tricuspid regurgitation 3. Normal appearance of the left atrial appendage 4. No evidence of shunt across the intra-atrial septum 5. No pericardial effusion
--- NOTE | 2022-09-16 12:42 | P.PN ---
Subjective Progress Note Date: 09/16/22 PROGRESS NOTE The patient is a 76-year-old male with a known history of CVA who presented with recurrent CVA and required mechanical ventilation. He's feeling relatively stable this morning. He denies any chest discomfort, dizziness or palpitations. He continues to be in sinus mechanism. He underwent a ABBY that showed no evidence of segmental wall motion abnormality and no evidence of shunting are at no thrombus in the left atrial appendage was noted. Medications: Aspirin, Plavix 75 mg daily, Lasix 20 mg twice a day, Prograf PHYSICAL EXAMINATION: Blood pressure 121/56 heart rate 70 LUNGS: Clear to auscultation HEART: Regular rate and rhythm, S1, S2. No S3. systolic ejection murmur ABDOMEN: Soft, nontender, no organomegaly EXTREMETIES: Trace on the right edema IMPRESSION: 1. CVA 2. History of liver transplant 3. History of hypothyroidism 4. Urinary tract infection, improved PLAN: 1. No evidence of cardiac abnormality and no source of cardiac etiology for this stroke 2. Continue present therapy 3. We will see him on as-needed basis, please feel free to call us for any question. Objective - Vital Signs Vital signs: Vital Signs Temp 98.8 F 09/16/22 08:00 Pulse 75 09/16/22 12:02 Resp 16 09/16/22 12:02 BP 121/56 09/16/22 12:02 Pulse Ox 98 09/16/22 12:02 FiO2 21 09/10/22 07:51 Intake & Output 09/15/22 09/16/22 09/16/22 18:59 06:59 18:59 Intake Total 100 Output Total 350 600 Balance -350 -600 100 Weight 91.5 kg Intake: IV 100 Output: Urine 350 600 Other: Voiding Method Urinal Urinal Urinal # Voids 2 # Bowel Movements 1 ABP, PAP, CO, CI - Last Documented Arterial Blood Pressure 151/46 - Labs CBC & Chem 7: 09/12/22 14:37 09/15/22 06:23
[2022-09-16 13:06] LABS: Glucose,Whole Blood 108 mg/dL (70-110)
--- NOTE | 2022-09-16 17:17 | P.PN ---
Subjective Progress Note Date: 09/16/22 I am following-up with patient during this admission. I initially saw him then was been follow-up with Dr. Bridges. Briefly, patient in left parietal in left ICA territory with right hemipharesis (significantly more in lowr > upper). Per patient's physical therapy feel there is some improvement. Today patient had completed a ABBY. Patient denies of any new neurological issues. Please refer to Dr. Bridges's notes for further details. Objective - Vital Signs Vital signs: Vital Signs Temp 97.9 F 09/16/22 14:00 Pulse 75 09/16/22 16:23 Resp 16 09/16/22 14:00 BP 108/66 09/16/22 14:00 Pulse Ox 98 09/16/22 14:00 FiO2 21 09/10/22 07:51 Intake & Output 09/15/22 09/16/22 09/16/22 18:59 06:59 18:59 Intake Total 100 Output Total 350 600 500 Balance -350 -600 -400 Weight 91.5 kg 91.5 kg Intake: IV 100 Output: Urine 350 600 500 Other: Voiding Method Urinal Urinal Urinal # Voids 2 # Bowel Movements 1 ABP, PAP, CO, CI - Last Documented Arterial Blood Pressure 151/46 - Exam GENERAL: The patient is lying in bed and is not in acute distress. NEUROLOGICAL: Higher mental function: Patient is awake, alert, oriented to self, place and time. Following simple commands. No aphasia or neglect. Cranial nerves: Visual field are full to confrontation throughout. EOM intact and no nystagmus. No facial weakness. No dysarthria. Motor: The strength is able to lift right upper but has drift and strength is 4- . Lower is only able to wiggle some toes on right foot but otherwise severely weak on the right lower. Left side is 5/5. Cerebellum: Normal finger to nose. Sensation: Normal to touch throughout.. SOME OF THE WORK-UP DURING THIS HOSPITAL VISIT CONSISTED OF: Urine culture is positive for gram-negative bacilli. Blood culture is positive for Proteus species Lipid panel is triglyceride 112, cholesterol 111, LDL is 61, HDL is 27. Ammonia level is less than 9 Hemoglobin A1c is 5.7. TSH is 3.[address] of the head is reported as cerebral atrophy. Old small cortical infarct in the left internal capsule. No acute abnormality. CT angiography of the head and neck is reported as angiogram is nondiagnostic since there is no vascular contrast. There is cerebral or cortical atrophy. No acute intercranial abnormality. No significant abnormality of the neck. Mild spondylitic changes in the cervical spine. Repeat CT of the head as reported as there is a 4 cm poorly marginated area of hypodensity in the left parietal lobe consistent with acute infarct and isn't changed compared to recent exam. No hemorrhage seen. Cerebral atrophy. Then later, reading radiologist has addendum and reports it is that acute infarct is a change compared to recent exam. I personally reviewed the CT of the head on the most recent CT that was done last and I felt the left parietal seemed acute. There is no intraparenchymal hemorrhage. And then I was compared it to initial CT head on presentation, I felt different in which, I did not notice any remarkable acute ischemic in left parietal on initial CT. Carotid duplex was reported as there is bilateral plaque formation. There is bi lateral mild elevation of internal carotid artery velocity. There is antegrade flow in the vertebral arteries. The images and measurements suggest 50-70% stenosis in both internal carotid arteries. MRA of the neck is reported as no evidence of significant stenosis at the carotid bifurcation. The carotid and vertebral arteries are patent. No evidence of aneurysm. Repeat CT head on 08/25/2022 is reported as increased size of low attenuation region in the medial left frontal/parietal lobe consistent with evolving acute/subacute infarct compared to the prior CT brain on 08/23/2022. No evidence for hemorrhagic conversion. I personally reviewed the image and I do agree there is evolution of the stroke but I feel mostly it's over the left parietal stroke than frontal. Repeat CT head from 08/28/2022 revealed stable posterior left centrum semiovale infarct. I personally reviewed CT head, appears to involve the left STEVE territory involving the left parietal region. No hemorrhage. Routine EEG on 08/25/2022: Is abnormal. The background slowing suggestive of moderate encephalopathy. There is no focal slowing, epileptiform discharge or seizure on the EEG. Excessive beta activity and some diffuse suppression seen during the study is likely due to medication effect (Ativan). 2D echo is reported as likely normal left ventricle size and systolic function. Normal left atrial size. ABBY on 09/16/2022: It is reported as normal left ventricular size and systolic function. Normal appearance of left atrial appendage. No evidence of shunting across that intra-atrial septum. No pericardial effusion. - Labs CBC & Chem 7: 09/12/22 14:37 09/15/22 06:23 Assessment and Plan Assessment: This is a 76-year-old gentleman who presented because of weakness over the right side and was worsening. Was felt his weakness started on 08/22/2022. * Acute ischemic stroke over left parietal region in the left STEVE territory with right hemiparesis, leg much more involved as compared to the right arm. Unknown cause of stroke (cryptogenic). No significant stenosis reported MRA neck and vascular surgery feel does not feels it is significant. * Altered mental status seems due to metabolic encephalopathy, remarkably improved. * Dysphagia, likely due to CVA, status post packed placement 09/02/2022. Patient's dysphagia has improved. Patient on CHOP dysphagia 3 diet. * Carotid stenosis 50-70% bilateral ICA on carotid duplex but was felt just at 50% by vascular surgery team. MRA neck does not reveal significant stenosis. * Sepsis (likely due to UTI and blood is positive for proteus species) * Renal insufficiency, resolved * Elevated liver function, resolved. * History of old stroke with some weakness possible lower weakness but was able to ambulate * History of liver failure s/p transplant Plan: Patient has failed aspirin regimen. So Plavix 75 mg daily was started during this admission. Recommend continuing dual antiplatelet medication for 21 days, thereafter stop aspirin and continue Plavix indefinitely. Continue Protonix 40 mg daily for gastric ulcer prophylaxis. Continue Lipitor 40 mg daily at bedtime for secondary stroke prophylaxis Carotid Doppler revealed 50-70% stenosis bilateral ICA. Antegrade flow in both vertebral arteries. Vascular surgery team for the carotid stenosis and they felt carotid stenosis at 50%. They did not feel he was a surgical candidate at this time. MRA neck did not reveal any significant stenosis. PT, OT and [employer] are consulted. We'll defer the rest of the medical management to the primary and ICU team For DVT prophylaxis Continue heparin 5000 units subcu every 12 hours. Upon discharge, patient needs to follow-up with neurologist as outpatient within 1-2 weeks. The plan is discussed with the patient and his nurse. Patient is clear to discharge to inpatient rehab. Time with Patient: Less than 30
[2022-09-16 18:15] LABS: Glucose,Whole Blood 110 mg/dL (70-110)
[2022-09-16 20:44] LABS: Glucose,Whole Blood 108 mg/dL (70-110)
[2022-09-16] MEDS: LATANOPROST 0.005% OPHTH DROPS 2.5 ML BTL BOTH EYES SCH (20:52)
--- NOTE | 2022-09-16 23:38 | P.PN ---
Subjective Progress Note Date: 09/14/22 Principal diagnosis: Bacteremia Patient is a 76-year-old -I[place]ian male past medical history significant for liver failure status post liver transplant or redness of his medication presented to hospital generalized weakness did have a positive UA concerning for UTI patient subsequently did have a positive blood culture. Patient has been extubated 08/29/2022 On today's evaluation that is 09/14/2022 the patient continues to be afebrile the patient is breathing comfortably on room air denies any chest pain shortness of the cough no abdominal pain or diarrhea Objective - Vital Signs Vital signs: Vital Signs Temp 98.2 F 09/14/22 14:09 Pulse 73 09/14/22 14:09 Resp 18 09/14/22 14:09 BP 104/63 09/14/22 14:09 Pulse Ox 98 09/14/22 14:09 FiO2 21 09/10/22 07:51 Intake & Output 09/13/22 09/14/22 09/14/22 18:59 06:59 18:59 Weight 102.5 kg Other: Voiding Method Diaper Diaper Incontinent Incontinent External Catheter # Voids 3 3 # Bowel Movements 4 2 2 ABP, PAP, CO, CI - Last Documented Arterial Blood Pressure 151/46 - Exam GENERAL DESCRIPTION: An elderly male lying in bed in no distress RESPIRATORY SYSTEM: Unlabored breathing , decreased breath sounds at bases HEART: S1 S2 regular rate and rhythm , ABDOMEN: Soft , no tenderness EXTREMITIES: No edema feet - Labs CBC & Chem 7: 09/12/22 14:37 09/15/22 06:23 Labs: Abnormal Lab Results - Last 24 Hours (Table) 09/12/22 09/13/22 09/14/22 Range/Units 14:37 16:16 06:01 POC Glucose (mg/dL) 139 H 191 H (70-110) mg/dL Vitamin B12 1084.0 H (200.0-944.0) pg/mL 09/14/22 Range/Units 12:22 POC Glucose (mg/dL) 177 H (70-110) mg/dL Vitamin B12 (200.0-944.0) pg/mL Assessment and Plan (1) Bacteremia Current Visit: Yes Status: Acute Code(s): R78.81 - BACTEREMIA SNOMED Code(s): 5437234 (2) UTI (urinary tract infection) Current Visit: No Status: Acute Code(s): N39.0 - URINARY TRACT INFECTION, SITE NOT SPECIFIED SNOMED Code(s): 80499664 Plan: 1patient presented to hospital with abdominal pain and nausea and vomiting in this patient did have a positive UA CT abdominal pelvis did not show any acute abnormality abdominal soft medical examination patient did have a positive UA concerning for symptomatic urinary tract infection likely from enteric gram- negative pathogen, patient subsequently did have slight worsening of his respiratory status and concern for possible aspiration pneumonitis. 2 Patient urine was Proteus which was a sensitive pathogen however blood culture showing ESBL proteus , Patient to continue with investigation 2-week course of therapy. 3patient with MRSA pneumonia in this patient seem to have shown some clinical improvement respiratory status , Patient has completed his 2-week course of Zyvox which will be discontinued after today's dose Time with Patient: Less than 30
--- NOTE | 2022-09-16 23:40 | P.PN ---
Subjective Progress Note Date: 09/15/22 Principal diagnosis: Bacteremia Patient is a 76-year-old -[place] male past medical history significant for liver failure status post liver transplant or redness of his medication presented to hospital generalized weakness did have a positive UA concerning for UTI patient subsequently did have a positive blood culture. Patient has been extubated 08/29/2022 On today's evaluation that is 09/15/2022 the patient remains to be afebrile the patient is breathing comfortably on room air patient denies having any chest pain or shortness with occasional cough patient has been tolerating his tube feeds no diarrhea no abdominal pain Objective - Vital Signs Vital signs: Vital Signs Temp 97.4 F L 09/15/22 14:00 Pulse 65 09/15/22 14:00 Resp 18 09/15/22 14:00 BP 111/64 09/15/22 14:00 Pulse Ox 99 09/15/22 14:00 FiO2 21 09/10/22 07:51 Intake & Output 09/14/22 09/15/22 09/15/22 18:59 06:59 18:59 Output Total 350 200 Balance -350 -200 Weight 96 kg Output: Urine 350 200 Other: Voiding Method Urinal Urinal Diaper Diaper Incontinent Incontinent # Voids 3 2 2 # Bowel Movements 2 1 1 ABP, PAP, CO, CI - Last Documented Arterial Blood Pressure 151/46 - Exam GENERAL DESCRIPTION: An elderly male lying in bed in no distress RESPIRATORY SYSTEM: Unlabored breathing , decreased breath sounds at bases HEART: S1 S2 regular rate and rhythm , ABDOMEN: Soft , no tenderness EXTREMITIES: No edema feet - Labs CBC & Chem 7: 09/12/22 14:37 09/15/22 06:23 Labs: Abnormal Lab Results - Last 24 Hours (Table) 09/14/22 09/15/22 Range/Units 16:37 06:23 Sodium 134 L (135-145) mmol/L BUN 34.0 H (9.0-27.0) mg/dL BUN/Creatinine Ratio 30.91 H (12.00-20.00) Ratio POC Glucose (mg/dL) 117 H (70-110) mg/dL Assessment and Plan (1) Bacteremia Current Visit: Yes Status: Acute Code(s): R78.81 - BACTEREMIA SNOMED Code(s): 6378347 (2) UTI (urinary tract infection) Current Visit: No Status: Acute Code(s): N39.0 - URINARY TRACT INFECTION, SITE NOT SPECIFIED SNOMED Code(s): 99333113 Plan: 1patient presented to hospital with abdominal pain and nausea and vomiting in this patient did have a positive UA CT abdominal pelvis did not show any acute abnormality abdominal soft medical examination patient did have a positive UA concerning for symptomatic urinary tract infection likely from enteric gram- negative pathogen, patient subsequently did have slight worsening of his respiratory status and concern for possible aspiration pneumonitis. 2 Patient urine was Proteus which was a sensitive pathogen however blood culture showing ESBL proteus , Patient has completed a 2-week course of Invanz which was subsequently discontinued 3patient with MRSA pneumonia in this patient seem to have shown some clinical improvement respiratory status ,Patient underlying pneumonia has been adequately treated and will monitor his clinical course closely Time with Patient: Less than 30
--- NOTE | 2022-09-16 23:41 | P.PN ---
Subjective Progress Note Date: 09/16/22 Principal diagnosis: Bacteremia Patient is a 76-year-old -[place] male past medical history significant for liver failure status post liver transplant or redness of his medication presented to hospital generalized weakness did have a positive UA concerning for UTI patient subsequently did have a positive blood culture. Patient has been extubated 08/29/2022 On today's evaluation that is 09/16/2022 the patient denies having any fever or any chills breathing comfortably on room air denies any chest pain or shortness with occasional cough no abdominal pain no diarrhea tolerating his tube feeds Objective - Vital Signs Vital signs: Vital Signs Temp 98.8 F 09/16/22 08:00 Pulse 75 09/16/22 12:02 Resp 16 09/16/22 12:02 BP 121/56 09/16/22 12:02 Pulse Ox 98 09/16/22 12:02 FiO2 21 09/10/22 07:51 Intake & Output 09/15/22 09/16/22 09/16/22 18:59 06:59 18:59 Intake Total 100 Output Total 350 600 Balance -350 -600 100 Weight 91.5 kg 91.5 kg Intake: IV 100 Output: Urine 350 600 Other: Voiding Method Urinal Urinal Urinal # Voids 2 # Bowel Movements 1 ABP, PAP, CO, CI - Last Documented Arterial Blood Pressure 151/46 - Exam GENERAL DESCRIPTION: An elderly male lying in bed in no distress RESPIRATORY SYSTEM: Unlabored breathing , decreased breath sounds at bases HEART: S1 S2 regular rate and rhythm , ABDOMEN: Soft , no tenderness EXTREMITIES: No edema feet - Labs CBC & Chem 7: 09/12/22 14:37 09/15/22 06:23 Assessment and Plan (1) Bacteremia Current Visit: Yes Status: Acute Code(s): R78.81 - BACTEREMIA SNOMED Code(s): 6446628 (2) UTI (urinary tract infection) Current Visit: No Status: Acute Code(s): N39.0 - URINARY TRACT INFECTION, SITE NOT SPECIFIED SNOMED Code(s): 31650976 Plan: 1patient presented to hospital with abdominal pain and nausea and vomiting in this patient did have a positive UA CT abdominal pelvis did not show any acute abnormality abdominal soft medical examination patient did have a positive UA concerning for symptomatic urinary tract infection likely from enteric gram- negative pathogen, patient subsequently did have slight worsening of his respiratory status and concern for possible aspiration pneumonitis. 2 Patient urine was Proteus which was a sensitive pathogen however blood culture showing ESBL proteus ,Patient underlying UTI and Bactrim has been adequately treated Patient has completed a 2-week course of Invanz which was subsequently discontinued 3patient with MRSA pneumonia in this patient seem to have shown some clinical improvement respiratory status ,Patient underlying pneumonia has been adequately treated, We will continue monitor the patient closely off antibiotic therapy at this point Time with Patient: Less than 30
[2022-09-16 23:59] LABS: Glucose,Whole Blood 104 mg/dL (70-110)
[2022-09-17 06:23] LABS: Glucose,Whole Blood 97 mg/dL (70-110)
[2022-09-17] MEDS: INSULIN ASPART (NovoLOG) 100 UNIT/ML VIAL SQ SCH ×3 (07:56→16:47)
[2022-09-17] MEDS: IPRATROPIUM-ALBUTEROL 3 ML NEB INHALATION SCH ×4 (08:15→22:04)
[2022-09-17] MEDS: LOPERAMIDE 2 MG CAP PO SCH ×3 (08:31→22:29)
[2022-09-17] MEDS: FUROSEMIDE 20 MG TAB PO SCH ×2 (08:31→16:58)
[2022-09-17] MEDS: THIAMINE 100 MG TAB PO SCH (08:31)
[2022-09-17] MEDS: FOLIC ACID 1 MG TAB PO SCH (08:32)
[2022-09-17] MEDS: PANTOPRAZOLE 40 MG/10 ML VIAL IVP SCH (08:32)
[2022-09-17] MEDS: CLOPIDOGREL 75 MG TAB PO SCH (08:32)
[2022-09-17] MEDS: ASPIRIN 81 MG PO SCH (08:32)
[2022-09-17] MEDS: TACROLIMUS 1 MG CAP PO SCH ×2 (08:33→22:30)
[2022-09-17] MEDS: NYSTATIN 100,000 UNIT/ML SUSP 500,000 UNIT/5 ML CUP PO SCH ×4 (08:34→22:28)
[2022-09-17] MEDS: HEPARIN SODIUM,PORCINE/PF 5,000 UNIT/0.5 ML SYRINGE SQ SCH ×2 (08:34→22:28)
[2022-09-17] MEDS: MULTIVITAMINS, THERA LIQUID 237 ML BOTTLE PO SCH (08:34)
--- NOTE | 2022-09-17 09:11 | P.PN ---
Subjective 76-year-old male who was recently admitted with multiple medical issues including sepsis with septic shock and acute CVA and is being closely monitored. Patient is maintained in the ICU and is a downgrade waiting a bed on [facility] [place] [place]. Patient is maintained on tube feeds and tolerating and recommend to continue with aspiration precautions with head of the bed elevated 30-45 at all times and monitoring closely for residuals. Multiple medical consultations following including infectious disease and patient is maintained on IV antibiotics. Patie nt is afebrile and is talking although delayed but appears to be alert and oriented and understanding. Patient denies any chest pain or shortness of breath. Patient reports no pain at this time. Recommend PT/OT therapy daily and working on possible ECF. 24 hour interval change 09/10/2022 Patient is seen and evaluated resting comfortably in bed; discussed with nursing staff; no specific complaints reported Vital signs are reviewed and are stable with a temperature of 98.5, pulse 84, respirations 16 and blood pressure 121/52 Remains on PEG tube feeding; tolerating well Plan is to discharge patient to skilled rehab once arrangements are made 09/11/2022 Patient is seen and evaluated sitting up in bed with family at bedside; patient is very awake and alert and responsive; feeding himself from the tray Daughter at bedside and requesting blood work to be completed that is required periodically as outpatient by [facility]; reports she has given the list of labs needed to the RN; would also want neurology to come back and reevaluate patient; reports that she has some concerns about patient's response; patient remains at new baseline; no specific deficit noted or reported 09/12/2022 atient lying in bed comfortably He denies chest pain or dyspnea, no other new complaints Patient is awake and alert and oriented 3 but he has no insight into his illness and patient is very oriented No IV fluid, no Price PEG tube in a Place with feeds running at 50 mm per hour Remains on the same antibiotics Invanz and Zyvox 09/13/2022 No new complaint, patient respect to proceeding and 50 mL/h Patient complains from heartburn today, Pepcid started yesterday swished through Protonix and started on Tums when necessary. No other neurological complaints, neurologist recommended to continue with aspirin and Plavix 21 days then stop aspirin and continue with Plavix. Currently is only on aspirin. Checked with pharmacy patient received 3 doses of Plavix, last one was 08/31, also patient had a procedure for PEG tube placement on 09/02. We will double check within urology service if he should be on both aspirin and Plavix. Patient currently on Zyvox 1 week for his MRSA pneumonia he finishes Invanz for his ESBL Proteus UTI. Plan as per ID team. Patient is medically stable for discharge pending placement, no catheterization today. Discussed with CM/SW 09/14/2022 Patient clinically doing well, no new complaint and said he is a still getting PEG tube feedings at 50 mL per hour However his been having diarrhea therefore going to check for C. diff colitis unlikely and we'll check labs tomorrow morning I discussed the case with his daughter ruiz , and she has some concerns about his diarrhea. All her concerns and questions were answered to her satisfaction. Neurology input is appreciated. MRI of the neck is unremarkable 09/15/2022 patient awake and alert and interactive. He follows commands appropriately. However he is hard of hearing and slow to respond Patient still complains from the to lose a stool, no abdominal pain or vomiting and he tolerates PEG tube in. He is on Imodium when necessary. Also cartilages are planning for a ABBY tomorrow. Patient remains on aspirin and Plavix 09/16/2022 Patient admitted with septic shock secondary to ESBL Proteus UTI also he has evidence of MRSA pneumonia, has been treated adequately with antibiotic Invanz a nd linezolid, currently he is off antibiotics be monitored closely with ID team on the case. Also patient diagnosed with acute stroke, left parietal with internal carotid artery stenosis 50-70%. He is currently on aspirin and Plavix with recommendation to continue on dual antiplatelet therapy for 21 days and then stop aspirin and continue with the Plavix. Patient evaluated by vascular surgery team and he will need to follow-up with Dr. Price outpatient for further evaluation and management. Patient and daughter were informed about these recommendations. Also patient being followed closely by neurology service. Patient also status post PEG tube and has returned and at 50 mL/h. He is able to eat little bit as well. We will ask for dietitian consult follow-up, discussed with the bedside nurse. 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 Patient currently is medically stable for discharge pending placement. I discussed the case with the case sealer today, and she referred to her not were she states that she contacted the daughter but the daughter feel sick and she wants to wait until Monday to go and check on the rehab before the family choose one. Again medically he is a stable for discharge once placement is secured and decided per case management and family Prognosis remains guarded Objective - Vital Signs Vital signs: Vital Signs Temp 98.8 F 09/16/22 08:00 Pulse 75 09/16/22 12:02 Resp 16 09/16/22 12:02 BP 121/56 09/16/22 12:02 Pulse Ox 98 09/16/22 12:02 FiO2 21 09/10/22 07:51 Intake & Output 09/15/22 09/16/22 09/16/22 18:59 06:59 18:59 Intake Total 100 Output Total 350 600 Balance -350 -600 100 Weight 91.5 kg Intake: IV 100 Output: Urine 350 600 Other: Voiding Method Urinal Urinal Urinal # Voids 2 # Bowel Movements 1 ABP, PAP, CO, CI - Last Documented Arterial Blood Pressure 151/46 - Exam -GENERAL: The patient is alert and oriented x3, not in any acute distress. Generally weak HEENT: Pupils are round and equally reacting to light. EOMI. No scleral icterus. No conjunctival pallor. Normocephalic, atraumatic. No pharyngeal erythema. No thyromegaly. CARDIOVASCULAR: S1 and S2 present. No murmurs, rubs, or gallops. PULMONARY: Chest is clear to auscultation, no wheezing or crackles. ABDOMEN: Soft, nontender, nondistended, normoactive bowel sounds. No palpable organomegaly. MUSCULOSKELETAL: No joint swelling or deformity. EXTREMITIES: No cyanosis, clubbing, or pedal edema. NEUROLOGICAL: Gross neurological examination did not reveal any focal deficits. SKIN: No rashes. no petechiae. 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 diff Continue with antibiotic per ID team, currently on Zyvox we'll double check within urology aspirin/Plavix treatment Infectious disease consult on the case as well as property insurance claims examiner Several consults evaluated the patient with congenital surgery and neurologist. Pulmonary team already evaluated the patient and sign off the case Continue with antirejection treatment for his history of liver transplant Labs and medication were reviewed.. Continue same treatment. Continue with symptomatic treatment. Resume home medication. Monitor labs and vitals. DVT and GI prophylaxis. Further recommendations as per clinical course of the patient DVT prophylaxis: Subcutaneous heparin GI Prophylaxis: Ppi PT/OT: Recommend subacute rehab Prognosis is guarded
[2022-09-17 11:24] LABS: Glucose,Whole Blood 120 mg/dL (70-110)
[2022-09-17 16:34] LABS: Glucose,Whole Blood 105 mg/dL (70-110)
[2022-09-17 20:31] LABS: Glucose,Whole Blood 119 mg/dL (70-110)
[2022-09-17] MEDS: LATANOPROST 0.005% OPHTH DROPS 2.5 ML BTL BOTH EYES SCH (22:28)
[2022-09-17 23:55] LABS: Glucose,Whole Blood 118 mg/dL (70-110)
[2022-09-18] MEDS: INSULIN ASPART (NovoLOG) 100 UNIT/ML VIAL SQ SCH ×4 (00:51→18:29)
--- NOTE | 2022-09-18 03:01 | PN ---
PROGRESS NOTE DATE OF SERVICE: 09/17/2022 SUBJECTIVE: This 76-year-old gentleman, who was admitted with acute UTI ESBL and MRSA pneumonia is planned to be sent to [facility] [place] on Monday. No chest pain. No palpitation. OBJECTIVE: VITAL SIGNS: Pulse 86, blood pressure 118/64, respirations 16. CHEST: A few scattered rhonchi. CARDIOVASCULAR: S1, S2. ABDOMEN: Soft. NERVOUS SYSTEM: Diffusely weak. LABORATORY DATA: Reviewed. ASSESSMENT: 1. Acute urinary tract infection with extended-spectrum beta-lactamases Proteus. 2. Methicillin-resistant Staphylococcus aureus pneumonia. 3. Status post acute septic shock. 4. Chronic kidney disease stage 2. 5. Multiple medical issues. RECOMMENDATION: Recommend to continue current medications, continue symptomatic treatment. Otherwise, continue with PT/OT evaluation, possible ECF rehab. Further recommendations to follow. MAYELA / SANYAN: [id number] /
[2022-09-18 05:50] LABS: Glucose,Whole Blood 116 mg/dL (70-110)
[2022-09-18] MEDS: NYSTATIN 100,000 UNIT/ML SUSP 500,000 UNIT/5 ML CUP PO SCH ×2 (08:19→13:10)
[2022-09-18] MEDS: IPRATROPIUM-ALBUTEROL 3 ML NEB INHALATION SCH ×4 (08:19→20:41)
[2022-09-18] MEDS: ASPIRIN 81 MG PO SCH (08:19)
[2022-09-18] MEDS: PANTOPRAZOLE 40 MG/10 ML VIAL IVP SCH (08:19)
[2022-09-18] MEDS: THIAMINE 100 MG TAB PO SCH (08:19)
[2022-09-18] MEDS: TACROLIMUS 1 MG CAP PO SCH ×2 (08:20→22:29)
[2022-09-18] MEDS: HEPARIN SODIUM,PORCINE/PF 5,000 UNIT/0.5 ML SYRINGE SQ SCH ×2 (08:20→22:29)
[2022-09-18] MEDS: FOLIC ACID 1 MG TAB PO SCH (08:20)
[2022-09-18] MEDS: CLOPIDOGREL 75 MG TAB PO SCH (08:20)
[2022-09-18] MEDS: MULTIVITAMINS, THERA LIQUID 237 ML BOTTLE PO SCH (08:21)
[2022-09-18] MEDS: FUROSEMIDE 20 MG TAB PO SCH ×2 (08:21→15:21)
[2022-09-18] MEDS: LOPERAMIDE 2 MG CAP PO SCH ×3 (09:38→22:34)
[2022-09-18 11:36] LABS: Glucose,Whole Blood 112 mg/dL (70-110)
[2022-09-18 17:32] LABS: Glucose,Whole Blood 117 mg/dL (70-110)
[2022-09-18] MEDS: LATANOPROST 0.005% OPHTH DROPS 2.5 ML BTL BOTH EYES SCH (22:29)
--- NOTE | 2022-09-18 23:11 | P.PN ---
Subjective Progress Note Date: 09/17/22 Principal diagnosis: Bacteremia Patient is a 76-year-old -Citizen Of The [place] male past medical history significant for liver failure status post liver transplant or redness of his medication presented to hospital generalized weakness did have a positive UA concerning for UTI patient subsequently did have a positive blood culture. Patient has been extubated 08/29/2022 On today's evaluation that is 09/17/2022 the patient remains to be afebrile, the patient is breathing comfortably on room air denies any chest pain or shortness with occasional cough no abdominal pain no diarrhea tolerating his tube feeds Objective - Vital Signs Vital signs: Vital Signs Temp 97.6 F 09/17/22 07:22 Pulse 74 09/17/22 12:04 Resp 16 09/17/22 07:22 BP 117/62 09/17/22 07:22 Pulse Ox 96 09/17/22 08:15 FiO2 21 09/10/22 07:51 Intake & Output 09/16/22 09/17/22 09/17/22 18:59 06:59 18:59 Intake Total 820 Output Total 1600 250 305 Balance -780 -250 -305 Weight 91.5 kg 91 kg Intake: IV 100 Oral 720 Output: Urine 1600 250 305 Other: Voiding Method Urinal Urinal Urinal ABP, PAP, CO, CI - Last Documented Arterial Blood Pressure 151/46 - Exam GENERAL DESCRIPTION: An elderly male lying in bed in no distress RESPIRATORY SYSTEM: Unlabored breathing , decreased breath sounds at bases HEART: S1 S2 regular rate and rhythm , ABDOMEN: Soft , no tenderness EXTREMITIES: No edema feet - Labs CBC & Chem 7: 09/12/22 14:37 09/15/22 06:23 Labs: Abnormal Lab Results - Last 24 Hours (Table) 09/17/22 Range/Units 11:22 POC Glucose (mg/dL) 120 H (70-110) mg/dL Assessment and Plan (1) Bacteremia Current Visit: Yes Status: Acute Code(s): R78.81 - BACTEREMIA SNOMED Code(s): 9568148 (2) UTI (urinary tract infection) Current Visit: No Status: Acute Code(s): N39.0 - URINARY TRACT INFECTION, SITE NOT SPECIFIED SNOMED Code(s): 83933373 Plan: 1patient presented to hospital with abdominal pain and nausea and vomiting in this patient did have a positive UA CT abdominal pelvis did not show any acute abnormality abdominal soft medical examination patient did have a positive UA concerning for symptomatic urinary tract infection likely from enteric gram- negative pathogen, patient subsequently did have slight worsening of his respiratory status and concern for possible aspiration pneumonitis. 2 Patient urine was Proteus which was a sensitive pathogen however blood c ulture showing ESBL proteus ,Patient underlying UTI and Bactrim has been adequately treated Patient has completed a 2-week course of Invanz currently monitoring the patient closely off antibiotic 3patient with MRSA pneumonia in this patient seem to have shown some clinical improvement respiratory status ,Patient underlying pneumonia has been adequately treated, We will continue to monitor the patient closely off antibiotic therapy Time with Patient: Less than 30
--- NOTE | 2022-09-18 23:12 | P.PN ---
Subjective Progress Note Date: 09/18/22 Principal diagnosis: Bacteremia Patient is a 76-year-old -[place] male past medical history significant for liver failure status post liver transplant or redness of his medication presented to hospital generalized weakness did have a positive UA concerning for UTI patient subsequently did have a positive blood culture. Patient has been extubated 08/29/2022 On today's evaluation that is 09/18/2022 the patient continues to be afebrile, the patient is breathing comfortably on room air, the patient denies any chest pain or shortness with occasional cough no abdominal pain no diarrhea tolerating his tube feeds has been complaining of some sore throat Objective - Vital Signs Vital signs: Vital Signs Temp 97.9 F 09/18/22 19:19 Pulse 90 09/18/22 20:54 Resp 18 09/18/22 19:19 BP 117/56 09/18/22 19:19 Pulse Ox 97 09/18/22 19:19 FiO2 21 09/10/22 07:51 Intake & Output 09/18/22 09/18/22 09/19/22 06:59 18:59 06:59 Output Total 200 310 Balance -200 -310 Weight 90.5 kg Output: Urine 200 310 Other: Voiding Method Urinal # Voids 1 # Bowel Movements 1 ABP, PAP, CO, CI - Last Documented Arterial Blood Pressure 151/46 - Exam GENERAL DESCRIPTION: An elderly male lying in bed in no distress RESPIRATORY SYSTEM: Unlabored breathing , decreased breath sounds at bases HEART: S1 S2 regular rate and rhythm , ABDOMEN: Soft , no tenderness EXTREMITIES: No edema feet - Labs CBC & Chem 7: 09/12/22 14:37 09/15/22 06:23 Labs: Abnormal Lab Results - Last 24 Hours (Table) 09/17/22 09/18/22 09/18/22 Range/Units 23:54 05:49 11:35 POC Glucose (mg/dL) 118 H 116 H 112 H (70-110) mg/dL 09/18/22 Range/Units 17:06 POC Glucose (mg/dL) 117 H (70-110) mg/dL Assessment and Plan (1) Bacteremia Current Visit: Yes Status: Acute Code(s): R78.81 - BACTEREMIA SNOMED Code(s): 4742921 (2) UTI (urinary tract infection) Current Visit: No Status: Acute Code(s): N39.0 - URINARY TRACT INFECTION, S ITE NOT SPECIFIED SNOMED Code(s): 28630008 Plan: 1patient presented to hospital with abdominal pain and nausea and vomiting in this patient did have a positive UA CT abdominal pelvis did not show any acute abnormality abdominal soft medical examination patient did have a positive UA concerning for symptomatic urinary tract infection likely from enteric gram- negative pathogen, patient subsequently did have slight worsening of his respiratory status and concern for possible aspiration pneumonitis. 2 Patient urine was Proteus which was a sensitive pathogen however blood culture showing ESBL proteus ,Patient underlying UTI and Bactrim has been adequately treated Patient has completed a 2-week course of Invanz currently monitoring the patient closely off antibiotic 3patient with MRSA pneumonia in this patient seem to have shown some clinical improvement respiratory status ,Patient underlying pneumonia has been adequately treated, We will continue to monitor the patient closely off antibiotic therapy 4-patient did have component of mild thrush will add nystatin swish and swallow Time with Patient: Less than 30
[2022-09-19 01:22] LABS: Glucose,Whole Blood 107 mg/dL (70-110)
[2022-09-19] MEDS: INSULIN ASPART (NovoLOG) 100 UNIT/ML VIAL SQ SCH ×4 (02:23→17:20)
--- NOTE | 2022-09-19 02:35 | PN ---
PROGRESS NOTE DATE OF SERVICE: 09/18/2022 SUBJECTIVE: This 76-year-old gentleman, who was admitted with ESBL UTI and MRSA, is improving significantly. No chest pain. No palpitations. ECF rehab is being planned. OBJECTIVE: VITAL SIGNS: Pulse is 66, blood pressure n, respirations 16. CHEST: Clear to auscultation. CARDIOVASCULAR: S1, S2 muffled. ABDOMEN: Soft. NERVOUS SYSTEM: Diffusely weak. LABORATORY DATA: Reviewed. ASSESSMENT: 1. Acute urinary tract infection with extended-spectrum beta-lactamase Proteus. 2. Methicillin-resistant Staphylococcus aureus. 3. Status post acute septic shock. 4. Chronic kidney disease, stage 2. 5. Multiple medical issues. RECOMMENDATIONS: I recommend to continue current medications and symptomatic treatment. Otherwise, at this time, I recommend to continue with antibiotics, PT/OT evaluation, possible ECF rehab. Further recommendations to follow. MMODL / SANYAN: [id number] / MTDD
[2022-09-19 06:01] LABS: Glucose,Whole Blood 102 mg/dL (70-110)
[2022-09-19] MEDS: IPRATROPIUM-ALBUTEROL 3 ML NEB INHALATION SCH ×4 (07:15→19:43)
[2022-09-19] MEDS: PANTOPRAZOLE 40 MG/10 ML VIAL IVP SCH (08:43)
[2022-09-19] MEDS: FUROSEMIDE 20 MG TAB PO SCH ×2 (09:07→16:18)
[2022-09-19] MEDS: TACROLIMUS 1 MG CAP PO SCH ×2 (09:07→21:56)
[2022-09-19] MEDS: CLOPIDOGREL 75 MG TAB PO SCH (09:07)
[2022-09-19] MEDS: ASPIRIN 81 MG PO SCH (09:07)
[2022-09-19] MEDS: THIAMINE 100 MG TAB PO SCH (09:07)
[2022-09-19] MEDS: LOPERAMIDE 2 MG CAP PO SCH ×3 (09:07→21:56)
[2022-09-19] MEDS: FOLIC ACID 1 MG TAB PO SCH (09:07)
[2022-09-19] MEDS: NYSTATIN 100,000 UNIT/ML SUSP 500,000 UNIT/5 ML CUP PO SCH ×4 (09:07→21:57)
[2022-09-19] MEDS: HEPARIN SODIUM,PORCINE/PF 5,000 UNIT/0.5 ML SYRINGE SQ SCH ×2 (09:07→21:56)
[2022-09-19] MEDS: MULTIVITAMINS, THERA LIQUID 237 ML BOTTLE PO SCH (09:08)
--- NOTE | 2022-09-19 09:53 | P.PN ---
Subjective Patient is seen in follow for acute kidney injury. Creatinine 1.18H 09/15/2022. No labs since. Nonoliguric. On po Lasix. Receiving tube feeds. Also tolerating some oral intake. Hemodynamically stable. On room air currently. Vital signs are stable. General: No acute distress. HEENT: No JVD. LUNGS: Breath sounds decreased. HEART: Regular rate and rhythm. ABDOMEN: Soft, no distention. PEG tube noted. EXTREMITITES: Trace edema. Objective - Vital Signs Vital signs: Vital Signs Temp 98.3 F 09/19/22 07:16 Pulse 80 09/19/22 07:24 Resp 16 09/19/22 07:16 BP 100/50 09/19/22 07:16 Pulse Ox 97 09/19/22 07:16 FiO2 21 09/10/22 07:51 Intake & Output 09/18/22 09/19/22 09/19/22 18:59 06:59 18:59 Output Total 310 1400 Balance -310 -1400 Weight 89 kg Output: Urine 310 1400 Other: # Voids 1 # Bowel Movements 1 ABP, PAP, CO, CI - Last Documented Arterial Blood Pressure 151/46 - Labs CBC & Chem 7: 09/12/22 14:37 09/15/22 06:23 Labs: Abnormal Lab Results - Last 24 Hours (Table) 09/18/22 09/18/22 Range/Units 11:35 17:06 POC Glucose (mg/dL) 112 H 117 H (70-110) mg/dL Assessment and Plan Plan: Assessment: 1. Acute kidney injury secondary to ATN secondary to septic shock and contrast- induced acute kidney injury. Patient received IV contrast on 08/23/2022. Creatinine was 1.74 on admission and peaked at 2.78 - 1.1 dated 09/15/2022. Nonoliguric. No hydronephrosis noted on CAT scan. 2. Chronic kidney disease stage IIIa with baseline creatinine in the range of 1.2-1.5 secondary to nephrosclerosis and long-term calcineurin inhibitor use. 3. 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 4. Metabolic acidosis secondary to acute kidney injury, lactic acidosis and IV fluids. Resolved. 5. 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 Neurology following. 6. Septic shock secondary to Proteus UTI and bacteremia on antibiotics. Off vasopressors. 7. Volume overload. Improved with diuresis. Plan:Maintain oral Lasix. Maintain home antirejection meds. Prograf leve 4.5 dated 09/12/2022. Follow-up repeat level. Avoid nephrotoxins. Morning labs pending. Repeat BMP and magnesium level to 3 days postdischarge. Follow up outpatient in 1 week.
[2022-09-19 09:58] LABS: Magnesium 1.9 mg/dL (1.5-2.4)
[2022-09-19 10:02] LABS: African American GFR (CKD) 51.3 (60.0-200.0); Anion Gap 13.6 mmol/L (10.00-18.00); BUN/Creat Ratio 27.53 Ratio (12.00-20.00); Blood Urea Nitrogen 41.3 mg/dL (9.0-27.0); Calcium 9.1 mg/dL (8.7-10.3); Carbon Dioxide 20.9 mmol/L (20.0-27.5); Non-African American GFR(CKD) 44.3 (60.0-200.0); Potassium 4.7 mmol/L (3.5-5.5)
[2022-09-19 11:48] LABS: Glucose,Whole Blood 102 mg/dL (70-110)
[2022-09-19 11:52] VITALS: BMI 29.0
[2022-09-19 17:20] LABS: Glucose,Whole Blood 101 mg/dL (70-110)
[2022-09-19] MEDS ORDERED: BENZONATATE 100 MG CAP PO PRN (20:51)
[2022-09-19] MEDS: LATANOPROST 0.005% OPHTH DROPS 2.5 ML BTL BOTH EYES SCH (21:56)
--- NOTE | 2022-09-19 22:53 | P.PN ---
Subjective Progress Note Date: 09/19/22 Principal diagnosis: Bacteremia Patient is a 76-year-old -[place] male past medical history significant for liver failure status post liver transplant or redness of his medication presented to hospital generalized weakness did have a positive UA concerning for UTI patient subsequently did have a positive blood culture. Patient has been extubated 08/29/2022 On today's evaluation that is 09/19/2022 the patient remains to be afebrile, the patient is breathing comfortably on room air, the patient denies any chest pain or shortness of breath, the patient did have occasional dry cough no abdominal pain no diarrhea tolerating his tube feeds Objective - Vital Signs Vital signs: Vital Signs Temp 98.4 F 09/19/22 20:00 Pulse 75 09/19/22 20:00 Resp 17 09/19/22 20:00 BP 121/56 09/19/22 20:00 Pulse Ox 98 09/19/22 20:00 FiO2 21 09/10/22 07:51 Intake & Output 09/19/22 09/19/22 09/20/22 06:59 18:59 06:59 Intake Total 780 Output Total 1400 Balance -1400 780 Weight 89 kg 89 kg Intake: Oral 500 Tube Feeding 280 Output: Urine 1400 Other: # Voids 4 # Bowel Movements 1 ABP, PAP, CO, CI - Last Documented Arterial Blood Pressure 151/46 - Exam GENERAL DESCRIPTION: An elderly male lying in bed in no distress RESPIRATORY SYSTEM: Unlabored breathing , decreased breath sounds at bases HEART: S1 S2 regular rate and rhythm , ABDOMEN: Soft , no tenderness EXTREMITIES: No edema feet - Labs CBC & Chem 7: 09/12/22 14:37 09/19/22 06:14 Labs: Abnormal Lab Results - Last 24 Hours (Table) 09/19/22 Range/Units 06:14 Sodium 132 L (135-145) mmol/L BUN 41.3 H (9.0-27.0) mg/dL Est GFR (CKD-EPI)AfAm 51.3 L (60.0-200.0) Est GFR (CKD-EPI)NonAf 44.3 L (60.0-200.0) BUN/Creatinine Ratio 27.53 H (12.00-20.00) Ratio Assessment and Plan (1) Bacteremia Current Visit: Yes Status: Acute Code(s): R78.81 - BACTEREMIA SNOMED Code(s): 7526620 (2) UTI (urinary tract infection) Current Visit: No Status: Acute Code(s): N39.0 - URINARY TRACT INFECTION, SITE NOT SPECIFIED SNOMED Code(s): 30878093 Plan: 1patient presented to hospital with abdominal pain and nausea and vomiting in this patient did have a positive UA CT abdominal pelvis did not show any acute abnormality abdominal soft medical examination patient did have a positive UA concerning for symptomatic urinary tract infection likely from enteric gram-ne gative pathogen, patient subsequently did have slight worsening of his respiratory status and concern for possible aspiration pneumonitis. 2 Patient urine was Proteus which was a sensitive pathogen however blood culture showing ESBL proteus ,Patient underlying UTI and Bactrim has been adequately treated Patient has completed a 2-week course of Invanz currently monitoring the patient closely off antibiotic 3patient with MRSA pneumonia in this patient seem to have shown some clinical improvement respiratory status ,Patient underlying pneumonia has been adequately treated, We will continue to monitor the patient closely off antibiotic therapy 4-patient did have component of mild thrush patient to continue with nystatin swish and swallow and monitor clinical course closely Time with Patient: Less than 30
[2022-09-19 23:53] LABS: Glucose,Whole Blood 115 mg/dL (70-110)
[2022-09-20] MEDS: INSULIN ASPART (NovoLOG) 100 UNIT/ML VIAL SQ SCH ×5 (00:12→23:50)
--- NOTE | 2022-09-20 05:49 | P.PN ---
Subjective Progress Note Date: 09/19/22 This is a 76 year old male who was recently admitted with ESBL, UTI with MRSA and is improving. Multiple medical consultations following. Patient being followed by ID and off antibiotics. Nephrology following and recommending outpatient follow up in 1-2 weeks. Patient continues with weakness and planning for ECF. Family reviewing multiple places and case management making referrals although no accepting ECF yet at this time. Patient is afebrile and denies chest pain or shortness of breath. Tolerating tube feeds at goal. Review of systems: Constitutional: No reports of fatigue, fever, or chills Cardiovascular: No reports of chest pain or palpitations Respiratory: No reports of shortness of breath or cough GI: no reports of nausea, no reports of of vomiting, : No reports of dysuria or retention Neurovascular: reports of generalized weakness, All medications have been reviewed PHYSICAL EXAMINATION: GENERAL: The patient is alert and oriented x3, Well developed, well nourished. HEENT: Pupils are round and equally reacting to light. EOMI. no scleral icterus. No conjunctival pallor. Normocephalic, atraumatic. No pharyngeal erythema. No thyromegaly. CARDIOVASCULAR: S1 and S2 muffled PULMONARY: diminished breath sounds bilaterally with no wheezing or rhonchi noted. ABDOMEN: soft. Nontender on exam. non-distended, normoactive bowel sounds. No palpable organomegaly. MUSCULOSKELETAL: No joint swelling or deformity. EXTREMITIES: No cyanosis, clubbing, or pedal edema. NEUROLOGICAL: Gross neurological examination did not reveal any focal deficits. Diffuse weakness SKIN: No rashes. Assessment: Acute urinary tract infection with extended spectrum beta-lactamase Proteus, present on admission with features of sepsis MRSA Status post acute septic shock chronic kidney disease, stage II History of CVA GI prophylaxis DVT prophylaxis Full code Plan: Recommend to continue with current medications and management with nephrology and ID services following. Patient is currently being monitored off antibiotics and doing well. Kidney functions stable and nephrology recommending outpatient follow up. Family working on acceptable ECF and choices were given to case management however, none of them able to accept. Recommend PT/OT therapy to follow. Continue tube feeds and aspiration precautions with head of bed elevated at 45 degrees at all times. Patient to continue tube feeds and is eating some orally as well. Will follow up with am labs. Due to multiple complex medical issues, prognosis is guarded. The impression and plan of care has been dictated by Rosalva Hidalgo, nurse practitioner as directed. Dr. Florencio MD I have performed a history and examination and MDM of this patient, discussed the same with the dictator, and agree with the dictator's assessment and plan as written ,documented as a scribe. Based on total visit time, I have performed more than 50% of the visit. Any additional findings or plans will be noted. Objective - Vital Signs Vital signs: Vital Signs Temp 98.3 F 09/19/22 07:16 Pulse 80 09/19/22 12:48 Resp 16 09/19/22 07:16 BP 100/50 09/19/22 07:16 Pulse Ox 97 09/19/22 07:16 FiO2 21 09/10/22 07:51 Intake & Output 09/18/22 09/19/22 09/19/22 18:59 06:59 18:59 Output Total 310 1400 Balance -310 -1400 Weight 89 kg 89 kg Output: Urine 310 1400 Other: # Voids 1 # Bowel Movements 1 ABP, PAP, CO, CI - Last Documented Arterial Blood Pressure 151/46 - Labs CBC & Chem 7: 09/12/22 14:37 09/19/22 06:14 Labs: Abnormal Lab Results - Last 24 Hours (Table) 09/18/22 09/19/22 Range/Units 17:06 06:14 Sodium 132 L (135-145) mmol/L BUN 41.3 H (9.0-27.0) mg/dL Est GFR (CKD-EPI)AfAm 51.3 L (60.0-200.0) Est GFR (CKD-EPI)NonAf 44.3 L (60.0-200.0) BUN/Creatinine Ratio 27.53 H (12.00-20.00) Ratio POC Glucose (mg/dL) 117 H (70-110) mg/dL
[2022-09-20 06:02] LABS: Glucose,Whole Blood 96 mg/dL (70-110)
[2022-09-20] MEDS: IPRATROPIUM-ALBUTEROL 3 ML NEB INHALATION SCH ×4 (07:32→20:27)
[2022-09-20] MEDS: ASPIRIN 81 MG PO SCH (08:59)
[2022-09-20] MEDS: HEPARIN SODIUM,PORCINE/PF 5,000 UNIT/0.5 ML SYRINGE SQ SCH ×2 (09:00→20:55)
[2022-09-20] MEDS: THIAMINE 100 MG TAB PO SCH (09:00)
[2022-09-20] MEDS: PANTOPRAZOLE 40 MG/10 ML VIAL IVP SCH (09:00)
[2022-09-20] MEDS: FUROSEMIDE 20 MG TAB PO SCH (09:00)
[2022-09-20] MEDS: FOLIC ACID 1 MG TAB PO SCH (09:00)
[2022-09-20] MEDS: LOPERAMIDE 2 MG CAP PO SCH ×3 (09:00→20:55)
[2022-09-20] MEDS: CLOPIDOGREL 75 MG TAB PO SCH (09:00)
[2022-09-20] MEDS: TACROLIMUS 1 MG CAP PO SCH ×2 (09:02→20:56)
[2022-09-20] MEDS: NYSTATIN 100,000 UNIT/ML SUSP 500,000 UNIT/5 ML CUP PO SCH ×4 (09:02→20:56)
[2022-09-20] MEDS: MULTIVITAMINS, THERA LIQUID 237 ML BOTTLE PO SCH (09:11)
--- NOTE | 2022-09-20 11:11 | P.PN ---
Subjective Patient is seen in follow for acute kidney injury. Creatinine 1.5 yesterday. Nonoliguric. On po Lasix. Receiving tube feeds. Also tolerating some oral intake. Hemodynamically stable. On room air currently. Vital signs are stable. General: No acute distress. Awake. HEENT: No JVD. LUNGS: Breath sounds decreased. HEART: Regular rate and rhythm. ABDOMEN: Soft, no distention. PEG tube noted. EXTREMITITES: No edema. Objective - Vital Signs Vital signs: Vital Signs Temp 98.0 F 09/20/22 07:14 Pulse 76 09/20/22 07:44 Resp 16 09/20/22 09:55 BP 121/53 09/20/22 07:14 Pulse Ox 98 09/20/22 07:32 FiO2 21 09/10/22 07:51 Intake & Output 09/19/22 09/20/22 09/20/22 18:59 06:59 18:59 Intake Total 780 490 120 Output Total 1775 Balance 780 -1285 120 Weight 89 kg Intake: Oral 500 120 Tube Feeding 280 490 Output: Urine 1775 Other: Voiding Method Urinal Urinal # Voids 4 # Bowel Movements 1 ABP, PAP, CO, CI - Last Documented Arterial Blood Pressure 151/46 - Labs CBC & Chem 7: 09/12/22 14:37 09/19/22 06:14 Labs: Abnormal Lab Results - Last 24 Hours (Table) 09/19/22 Range/Units 23:52 POC Glucose (mg/dL) 115 H (70-110) mg/dL Assessment and Plan Plan: Assessment: 1. Acute kidney injury secondary to ATN secondary to septic shock and contrast- induced acute kidney injury. Patient received IV contrast on 08/23/2022. Creatinine was 1.74 on admission and peaked at 2.78 - 1.5 yesterday. Nonoliguric. No hydronephrosis noted on CAT scan. 2. Chronic kidney disease stage IIIa with baseline creatinine in the range of 1.2-1.5 secondary to nephrosclerosis and long-term calcineurin inhibitor use. 3. 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 4. Metabolic acidosis secondary to acute kidney injury, lactic acidosis and IV fluids. 5. 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 Neurology following. 6. Septic shock secondary to Proteus UTI and bacteremia s/p antibiotics. Off vasopressors. 7. Volume overload. Improved with diuresis. Plan: Hold Lasix. Maintain home antirejection meds. Prograf level 4.5 dated 09/12/2022. Follow-up repeat level. Avoid nephrotoxins. Repeat BMP and magnesium level to 3 days postdischarge. Follow up outpatient in 1 week.
[2022-09-20 11:31] LABS: Glucose,Whole Blood 103 mg/dL (70-110)
[2022-09-20] MEDS: SODIUM BICARBONATE TAB 650 MG TAB PO SCH (12:00)
[2022-09-20 12:51] LABS: ALT 60 U/L (4-49); AST 50 U/L (17-59)
[2022-09-20] MEDS ORDERED: ACETAMINOPHEN TAB 500 MG TAB PO PRN (12:54)
[2022-09-20 16:41] LABS: Glucose,Whole Blood 115 mg/dL (70-110)
--- NOTE | 2022-09-20 19:06 | P.PN ---
Subjective Progress Note Date: 09/20/22 This is a 76 year old male who was recently admitted with ESBL, UTI with MRSA and is improving. Multiple medical consultations following. Patient being followed by ID and off antibiotics. Nephrology following and recommending outpatient follow up in 1-2 weeks. Patient continues with weakness and planning for ECF. Family reviewing multiple places and case management making referrals although no accepting ECF yet at this time. Patient is afebrile and denies chest pain or shortness of breath. Tolerating tube feeds at goal. 09/20/2022 Patient is seen in follow-up today currently sitting up in the bed with nephrology following. Patient was maintained on oral dose of Lasix although kidney function slightly elevated at 1.5 and Lasix on hold. Patient is 98% on room air. Patient having some right lower extremity pain will add Tylenol low- dose as needed. Patient is afebrile and maintained off antibiotics. Patient is on lesser dose tube feedings and tolerating and also tolerating some oral inta ke. Review of systems: Constitutional: No reports of fatigue, fever, or chills Cardiovascular: No reports of chest pain or palpitations Respiratory: No reports of shortness of breath or cough GI: no reports of nausea, no reports of of vomiting, : No reports of dysuria or retention Neurovascular: reports of generalized weakness, reports some mild lower extremity pain All medications have been reviewed PHYSICAL EXAMINATION: GENERAL: The patient is alert and oriented x3, Well developed, well nourished. HEENT: Pupils are round and equally reacting to light. EOMI. no scleral icterus. No conjunctival pallor. Normocephalic, atraumatic. No pharyngeal erythema. No thyromegaly. CARDIOVASCULAR: S1 and S2 muffled PULMONARY: diminished breath sounds bilaterally with no wheezing or rhonchi noted. ABDOMEN: soft. Nontender on exam. non-distended, normoactive bowel sounds. No palpable organomegaly. MUSCULOSKELETAL: No joint swelling or deformity. EXTREMITIES: No cyanosis, clubbing, or pedal edema. NEUROLOGICAL: Gross neurological examination did not reveal any focal deficits. Diffuse weakness SKIN: No rashes. Assessment: Acute urinary tract infection with extended spectrum beta-lactamase Proteus, present on admission with features of sepsis MRSA Status post acute septic shock chronic kidney disease, stage II History of CVA GI prophylaxis DVT prophylaxis Full code Plan: Recommend to continue with current medications and management with nephrology and ID services following. Patient is currently being monitored off antibiotics and doing well. Kidney functions stable and nephrology recommending outpatient follow up. Creatine slightly elevated at 1.5 and will hold lasix for now. Family working on acceptable ECF and choices were given to case management however, none of them able to accept. [facility] in [place] able to accept but no bed available until Monday. Will continue with discharge planning and this was discussed with daughter. Recommend PT/OT therapy to follow. Continue tube feeds and aspiration precautions with head of bed elevated at 45 degrees at all times. Patient to continue tube feeds and is eating some orally as well. Due to multiple complex medical issues, prognosis is guarded. The impression and plan of care has been dictated by Rosalva Hidalgo, nurse practitioner as directed. Dr. Florencio MD I have performed a history and examination and MDM of this patient, discussed the same with the dictator, and agree with the dictator's assessment and plan as written ,documented as a scribe. Based on total visit time, I have performed more than 50% of the visit. Any additional findings or plans will be noted. Objective - Vital Signs Vital signs: Vital Signs Temp 98.1 F 09/20/22 14:00 Pulse 76 09/20/22 16:01 Resp 16 09/20/22 14:00 BP 119/62 09/20/22 14:00 Pulse Ox 98 09/20/22 14:00 FiO2 21 09/10/22 07:51 Intake & Output 09/19/22 09/20/22 09/20/22 18:59 06:59 18:59 Intake Total 780 490 440 Output Total 1775 Balance 780 -1285 440 Weight 89 kg Intake: Oral 500 440 Tube Feeding 280 490 Output: Urine 1775 Other: Voiding Method Urinal Urinal # Voids 4 1 # Bowel Movements 1 1 ABP, PAP, CO, CI - Last Documented Arterial Blood Pressure 151/46 - Labs CBC & Chem 7: 09/12/22 14:37 09/19/22 06:14 Labs: Abnormal Lab Results - Last 24 Hours (Table) 09/19/22 09/19/22 09/20/22 Range/Units 06:14 23:52 12:19 POC Glucose (mg/dL) 115 H (70-110) mg/dL ALT 60 H (4-49) U/L Tacrolimus 2.9 L (5.0-20.0) ng/mL 09/20/22 Range/Units 16:40 POC Glucose (mg/dL) 115 H (70-110) mg/dL ALT (4-49) U/L Tacrolimus (5.0-20.0) ng/mL
[2022-09-20] MEDS: LATANOPROST 0.005% OPHTH DROPS 2.5 ML BTL BOTH EYES SCH (20:55)
[2022-09-20 23:39] LABS: Glucose,Whole Blood 129 mg/dL (70-110)
[2022-09-21 06:07] LABS: Glucose,Whole Blood 107 mg/dL (70-110)
[2022-09-21] MEDS: INSULIN ASPART (NovoLOG) 100 UNIT/ML VIAL SQ SCH ×2 (06:09→11:40)
[2022-09-21 06:44] LABS: Basophils % (A) 0 %; Eosinophils # (A) 0.2 k/uL (0-0.7); Eosinophils % (A) 4 %; HCT 32.5 % (39.0-53.0); HGB 10.6 gm/dL (13.0-17.5); Lymphocytes # (A) 1.6 k/uL (1.0-4.8); Lymphocytes % (A) 30 %; MCH 27.5 pg (25.0-35.0); MCHC 32.7 g/dL (31.0-37.0); MCV 84.2 fL (80.0-100.0); Mean Platelet Volume 8.1; Monocytes # (A) 0.3 k/uL (0-1.0); Monocytes % (A) 5 %; Neutrophils # (A) 3.1 k/uL (1.3-7.7); Neutrophils % (A) 58 %; Platelet Count 203 k/uL (150-450); RBC 3.86 m/uL (4.30-5.90); RDW 14.5 % (11.5-15.5); WBC 5.3 k/uL (3.8-10.6)
[2022-09-21] MEDS: LOPERAMIDE 2 MG CAP PO SCH (07:47)
[2022-09-21] MEDS: CLOPIDOGREL 75 MG TAB PO SCH (07:47)
[2022-09-21] MEDS: FOLIC ACID 1 MG TAB PO SCH (07:47)
[2022-09-21] MEDS: ASPIRIN 81 MG PO SCH (07:47)
[2022-09-21] MEDS: SODIUM BICARBONATE TAB 650 MG TAB PO SCH (07:47)
[2022-09-21] MEDS: THIAMINE 100 MG TAB PO SCH (07:47)
[2022-09-21] MEDS: TACROLIMUS 1 MG CAP PO SCH (07:48)
[2022-09-21] MEDS: HEPARIN SODIUM,PORCINE/PF 5,000 UNIT/0.5 ML SYRINGE SQ SCH (07:48)
[2022-09-21] MEDS: PANTOPRAZOLE 40 MG/10 ML VIAL IVP SCH (07:48)
[2022-09-21] MEDS: MULTIVITAMINS, THERA LIQUID 237 ML BOTTLE PO SCH (07:49)
[2022-09-21] MEDS: NYSTATIN 100,000 UNIT/ML SUSP 500,000 UNIT/5 ML CUP PO SCH (07:49)
[2022-09-21 07:59] VITALS: BP 107/52; RESP 20; TEMP 98
[2022-09-21] MEDS: IPRATROPIUM-ALBUTEROL 3 ML NEB INHALATION SCH ×2 (08:13→11:37)
--- NOTE | 2022-09-21 08:48 | XR ---
EXAMINATION TYPE: XR chest 1V portable DATE OF EXAM: 09/21/2022 COMPARISON: 09/03/2022 HISTORY: Shortness of breath TECHNIQUE: Single frontal view of the chest is obtained. FINDINGS: Elevated left hemidiaphragm. There is chronic rib cage deformities of the right-sided PICC line. Subsegmental changes in both lung bases. No interstitial edema or pneumothorax. Osseous struct ures are stable IMPRESSION: 1. There is improved aeration left base. Correlate for improving atelectasis
[2022-09-21 09:29] LABS: African American GFR (CKD) 58.3 (60.0-200.0); Anion Gap 11.2 mmol/L (10.00-18.00); BUN/Creat Ratio 33.48 Ratio (12.00-20.00); Blood Urea Nitrogen 45.2 mg/dL (9.0-27.0); Calcium 9.1 mg/dL (8.7-10.3); Magnesium 1.9 mg/dL (1.5-2.4); Non-African American GFR(CKD) 50.3 (60.0-200.0); Potassium 4.2 mmol/L (3.5-5.5)
--- NOTE | 2022-09-21 10:18 | P.DS ---
Providers Date of admission: 08/23/22 05:51 Expected date of discharge: 09/21/22 Attending physician: Luz Maria Matias Consults: 08/23/22 19:36 Consult Physician Urgent Consulting Provider: Val Pringle Consult Reason/Comments: uti,sepsis Do you want consulting provider notified?: Yes 08/23/22 22:39 Consult Physician Urgent Consulting Provider: Poncho De Santiago Consult Reason/Comments: right sided weakness, worsening from baseline Do you want consulting provider notified?: Yes 08/24/22 02:30 Consult Physician Stat Consulting Provider: Peng De Santiago Consult Reason/Comments: ICU management Do you want consulting provider notified?: Already Contacted 08/24/22 10:05 Consult Physician Routine Consulting Provider: Gil Saeed Consult Reason/Comments: acute renal injury Do you want consulting provider notified?: Yes 09/06/22 15:04 Consult Physician Routine Consulting Provider: Richard Perez Consult Reason/Comments: IPR Do you want consulting provider notified?: Yes Primary care physician: Ron Edwards Hospital Course: Final diagnosis Acute urinary tract infection with extended spectrum beta-lactamase Proteus, present on admission with features of sepsis MRSA Status post acute septic shock chronic kidney disease, stage II History of CVA as well as during this admission. GI prophylaxis DVT prophylaxis Full code Discharge disposition Patient is being discharged in a stable condition with guarded prognosis to [facility] for continued PT/OT therapy. Patient will follow-up with Dr. Edwards in the outpatient setting upon discharge. Patient is to follow-up with [facility] specialist along with neurology, nephrology, GI, and neurology along with vascular surgery in the outpatient setting. Total time taken is greater than 35 minutes. Hospital course This is a 76-year-old male who was recently admitted with altered mental status, fever with features of sepsis and UTI with ESBL and MRSA and was being closely monitored. Patient also has had prolonged hospitalization with sometime in the ICU requiring multiple medical consultations including pulmonary director volunteer services. Patient also had findings of acute ischemic scrotal over the left parietal region in the left STEVE territory with right hemiparesis. Patient also with some continued dysphasia with high risk for aspiration did receive a PEG tube and is maintained as mentioned below and also tolerating some aphasia 3 chopped diet. Strongly encourage and recommend aspiration precautions and supervisions with meals as patient continues to be high risk for aspirations. Family has met and agreeable to [facility] and has accepted the patient for discharge today. Currently no reports of chest pain, shortness of breath, or palpitations. Patient is afebrile. No reports of nausea or vomiting and patient is tolerating diet. Patient will be going to [facility] today. Guarded prognosis. Physical exam: Gen: This is a 76-year-old male awake, alert and oriented 2-3, well-developed, well-nourished. HEENT: Head is atraumatic, normocephalic. Pupils equal, round. Sclerae is anicteric. NECK: Supple. No JVD. No lymphadenopathy. No thyromegaly. LUNGS: Diminished breath sounds bilaterally with no wheezing or rhonchi noted. No intercostal retractions. HEART: S1, S2 are muffled ABDOMEN: Soft. Bowel sounds are present. No masses. No tenderness. peg tube noted EXTREMITIES: No pedal edema. No calf tenderness. NEUROLOGICAL: Patient is awake, alert and oriented x3. Diffusely weak Please refer to medication reconciliation sheet for a list of medications. The impression and plan of care has been dictated by Rosalva Hidalgo, Nurse Practitioner as directed. Dr. Florencio MD I have performed a history and examination and MDM of this patient, discussed the same with the dictator, and agree with the dictator's assessment and plan as written ,documented as a scribe. Based on total visit time, I have performed more than 50% of the visit. Patient Condition at Discharge: Stable Plan - Discharge Summary New Discharge Prescriptions: New Ipratropium-Albuterol Nebulize [Duoneb 0.5 mg-3 mg/3 ml Soln] 3 ml INHALATION RT-QID each Folic Acid 1 mg PO DAILY tab Heparin Sodium,Porcine [Heparin Sodium] 5,000 unit SQ Q12HR 30 Days #60 each Clopidogrel [Plavix] 75 mg PO DAILY tab Tacrolimus [Prograf] 1 mg PO BID cap Benzonatate [Tessalon Perles] 100 mg PO TID PRN cap PRN Reason: Cough Acetaminophen Tab [Tylenol] 500 mg PO Q6HR PRN tab PRN Reason: Fever And/ Or Pain Aspirin 81 mg PO DAILY tab Loperamide [Imodium] 2 mg PO TID cap Loperamide [Imodium] 2 mg PO QID PRN cap PRN Reason: Diarrhea Nystatin 100,000 Unit/ml Susp [Mycostatin Oral Susp] 500,000 unit PO QID ml Pantoprazole Sodium [Protonix] 40 mg PO AC-BRKFST #30 tab Sodium Bicarbonate Tab 650 mg PO DAILY tab Multivitamins, Thera Liquid [Theragran Liquid (formulary)] 15 ml PO DAILY ml Calcium Carbonate [Tums] 1,000 mg PO QID PRN tab PRN Reason: Heartburn Thiamine [Vitamin B-1] 100 mg PO DAILY tab Continue dexAMETHasone ORAL [Hexadrol] 0.5 mg PO HS Tamsulosin [Flomax] 0.4 mg PO HS mycophenolate mofetiL [Cellcept] 1,000 mg PO BID Latanoprost [Xalatan 0.005%] 1 drop BOTH EYES HS Omeprazole Magnesium [PriLOSEC OTC] 20 mg PO HS Cholecalciferol [Vitamin D3 (125 Mcg = 5000 Iu)] 125 mcg PO HS Discontinued Tacrolimus [Prograf] 0.5 mg PO BID Metoprolol Succinate [Toprol XL] 50 mg PO HS Pravastatin Sodium [Pravachol] 10 mg PO HS Aspirin EC [Ecotrin Low Dose] 81 mg PO HS Multivitamins, Thera [Multivitamin (formulary)] 1 tab PO HS Discharge Medication List Tamsulosin [Flomax] 0.4 mg PO HS 07/20/15 [History] dexAMETHasone ORAL [Hexadrol] 0.5 mg PO HS 07/20/15 [History] mycophenolate mofetiL [Cellcept] 1,000 mg PO BID 07/20/15 [History] Latanoprost [Xalatan 0.005%] 1 drop BOTH EYES HS 11/28/21 [History] Cholecalciferol [Vitamin D3 (125 Mcg = 5000 Iu)] 125 mcg PO HS 08/23/22 [History] Omeprazole Magnesium [PriLOSEC OTC] 20 mg PO HS 08/23/22 [History] Acetaminophen Tab [Tylenol] 500 mg PO Q6HR PRN tab 09/21/22 [Rx] Aspirin 81 mg PO DAILY tab 09/21/22 [Rx] Benzonatate [Tessalon Perles] 100 mg PO TID PRN cap 09/21/22 [Rx] Calcium Carbonate [Tums] 1,000 mg PO QID PRN tab 09/21/22 [Rx] Clopidogrel [Plavix] 75 mg PO DAILY tab 09/21/22 [Rx] Folic Acid 1 mg PO DAILY tab 09/21/22 [Rx] Heparin Sodium,Porcine [Heparin Sodium] 5,000 unit SQ Q12HR 30 Days #60 each 09/21/22 [Rx] Ipratropium-Albuterol Nebulize [Duoneb 0.5 mg-3 mg/3 ml Soln] 3 ml INHALATION RT-QID each 09/21/22 [Rx] Loperamide [Imodium] 2 mg PO QID PRN cap 09/21/22 [Rx] Loperamide [Imodium] 2 mg PO TID cap 09/21/22 [Rx] Multivitamins, Thera Liquid [Theragran Liquid (formulary)] 15 ml PO DAILY ml 09/21/22 [Rx] Nystatin 100,000 Unit/ml Susp [Mycostatin Oral Susp] 500,000 unit PO QID ml 09/21/22 [Rx] Pantoprazole Sodium [Protonix] 40 mg PO AC-BRKFST #30 tab 09/21/22 [Rx] Sodium Bicarbonate Tab 650 mg PO DAILY tab 09/21/22 [Rx] Tacrolimus [Prograf] 1 mg PO BID cap 09/21/22 [Rx] Thiamine [Vitamin B-1] 100 mg PO DAILY tab 09/21/22 [Rx] Follow up Appointment(s)/Referral(s): Erin Price DO [STAFF PHYSICIAN] - 1 Week Fani Matta MD [STAFF PHYSICIAN] - 10 Days (GI doctor for your liver disease) Juvencio Lemon MD [Medical Doctor] - 10 Days (Neurologist) Ron Edwards DO [Primary Care Provider] - 1-2 days Val Pringle MD [STAFF PHYSICIAN] - 1 Week Gil Saeed DO [STAFF PHYSICIAN] - 1 Week Patient Instructions/Handouts: Ischemic Stroke (GEN) Activity/Diet/Wound Care/Special Instructions: Patient is going to [facility] Activity as tolerated Continue with PEG tube and aspiration precautions with feedings using vital AF-1 0.2 continuous with a rate of 35 including 840 mL's all day with free water flushes of 30 mL's every 4 hours and monitoring closely for residual Patient also tolerating oral intake although strongly recommending aspiration precautions and supervisions with meals using a dysphagia 3 chopped diet with no straws and heart healthy Head of the bed elevated 45 at all times Patient will need follow-up with his specialists outpatient along with neurology Follow-up primary care provider on discharge Follow-up with nephrology outpatient in 1-2 weeks Recommend CBC and BMP in 2-3 days Recommend holding diuretics for now until repeat labs Discharge Disposition: TRANSFER TO SNF/ECF
--- NOTE | 2022-09-21 11:09 | P.PN ---
Subjective Patient is seen in follow for acute kidney injury. Renal function stable. Diuretics discontinued 09/20/2022. Nonoliguric. Receiving tube feeds. Also tolerating some oral intake. Hemodynamically stable. On room air currently. No active complaints. Vital signs are stable. General: No acute distress. Awake. HEENT: No JVD. LUNGS: Breath sounds decreased. HEART: Regular rate and rhythm. ABDOMEN: Soft, no distention. PEG tube noted. EXTREMITITES: No edema. Objective - Vital Signs Vital signs: Vital Signs Temp 98.0 F 09/21/22 07:59 Pulse 65 09/21/22 08:24 Resp 20 09/21/22 10:06 BP 107/52 09/21/22 07:59 Pulse Ox 96 09/21/22 07:59 FiO2 21 09/10/22 07:51 Intake & Output 09/20/22 09/21/22 09/21/22 18:59 06:59 18:59 Intake Total 440 569 Output Total 1989 1 Balance 440 -1421 -1 Weight 90 kg Intake: Oral 440 Tube Feeding 569 Output: Urine 1989 Stool 1 Other: Voiding Method Urinal Urinal Urinal # Voids 1 2 # Bowel Movements 1 ABP, PAP, CO, CI - Last Documented Arterial Blood Pressure 151/46 - Labs CBC & Chem 7: 09/21/22 06:33 09/21/22 06:33 Labs: Abnormal Lab Results - Last 24 Hours (Table) 09/19/22 09/20/22 09/20/22 Range/Units 06:14 12:19 16:40 RBC (4.30-5.90) m/uL Hgb (13.0-17.5) gm/dL Hct (39.0-53.0) % Sodium (135-145) mmol/L BUN (9.0-27.0) mg/dL Est GFR (CKD-EPI)AfAm (60.0-200.0) Est GFR (CKD-EPI)NonAf (60.0-200.0) BUN/Creatinine Ratio (12.00-20.00) Ratio POC Glucose (mg/dL) 115 H (70-110) mg/dL ALT 60 H (4-49) U/L Tacrolimus 2.9 L (5.0-20.0) ng/mL 09/20/22 09/21/22 09/21/22 Range/Units 23:38 06:33 06:33 RBC 3.86 L (4.30-5.90) m/uL Hgb 10.6 L (13.0-17.5) gm/dL Hct 32.5 L (39.0-53.0) % Sodium 132 L (135-145) mmol/L BUN 45.2 H (9.0-27.0) mg/dL Est GFR (CKD-EPI)AfAm 58.3 L (60.0-200.0) Est GFR (CKD-EPI)NonAf 50.3 L (60.0-200.0) BUN/Creatinine Ratio 33.48 H (12.00-20.00) Ratio POC Glucose (mg/dL) 129 H (70-110) mg/dL ALT (4-49) U/L Tacrolimus (5.0-20.0) ng/mL Assessment and Plan Plan: Assessment: 1. Acute kidney injury secondary to ATN secondary to septic shock and contrast- induced acute kidney injury. Patient received IV contrast on 08/23/2022. Creatinine was 1.74 on admission and peaked at 2.78 - 1.4 today. Nonoliguric. No hydronephrosis noted on CAT scan. 2. Chronic kidney disease stage IIIa with baseline creatinine in the range of 1.2-1.5 secondary to nephrosclerosis and long-term calcineurin inhibitor use. 3. 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. 4. Metabolic acidosis secondary to acute kidney injury, lactic acidosis and IV fluids. Improved. 5. 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 Neurology following. 6. Septic shock secondary to Proteus UTI and bacteremia s/p antibiotics. Off vasopressors. 7. Volume overload. Improved with diuresis. Plan: Hold Lasix. Maintain home antirejection meds. Prograf level 2.1 dated 09/19/2022. Increase Prograf dose to 2 mg in a.m. and 1 mg in p.m. Avoid nephrotoxins. Repeat BMP and magnesium level to 3 days postdischarge. Also check Prograf level. Follow up outpatient in 1 week.
[2022-09-21 11:48] VITALS: PULSE 72
[2022-09-22] MEDS ORDERED: TACROLIMUS 1 MG CAP PO SCH ×2 (09:00→20:00)
== END 2022-09-21 12:03 | DRG 870 ==
LOC: EC 23:47 → 4SSUR 08-23 05:51 → 3SCARD 08-23 19:52 → 2SICU 08-24 02:17 → 4SSUR 09-05 10:42
PROVIDERS: ADMIT Hospitalist; ATTEND Hospitalist
PROC: 5A1955Z Respiratory Ventilation, Greater than 96 Consecutive Hours (ICD-10-PCS; principal; 2022-08-25)
PROC: 0BH18EZ Insertion of Endotracheal Airway into Trachea, Via Natural or Artificial Opening Endoscopic (ICD-10-PCS; 2022-08-25)
PROC: 02HV33Z Insertion of Infusion Device into Superior Vena Cava, Percutaneous Approach (ICD-10-PCS; 2022-08-25)
PROC: 3E043XZ Introduction of Vasopressor into Central Vein, Percutaneous Approach (ICD-10-PCS; 2022-08-25)
PROC: 03HY32Z Insertion of Monitoring Device into Upper Artery, Percutaneous Approach (ICD-10-PCS; 2022-08-26)
PROC: 4A133B1 Monitoring of Arterial Pressure, Peripheral, Percutaneous Approach (ICD-10-PCS; 2022-08-26)
PROC: 4A133J1 Monitoring of Arterial Pulse, Peripheral, Percutaneous Approach (ICD-10-PCS; 2022-08-26)
PROC: 0D9670Z Drainage of Stomach with Drainage Device, Via Natural or Artificial Opening (ICD-10-PCS; 2022-08-26)
PROC: 3E0G76Z Introduction of Nutritional Substance into Upper GI, Via Natural or Artificial Opening (ICD-10-PCS; 2022-08-26)
PROC: 02HV33Z Insertion of Infusion Device into Superior Vena Cava, Percutaneous Approach (ICD-10-PCS; 2022-09-02)
PROC: 0DH63UZ Insertion of Feeding Device into Stomach, Percutaneous Approach (ICD-10-PCS; 2022-09-02)
PROC: 3E0G76Z Introduction of Nutritional Substance into Upper GI, Via Natural or Artificial Opening (ICD-10-PCS; 2022-09-02)
DX: A41.89 Other specified sepsis (principal); E43 Unspecified severe protein-calorie malnutrition; J15.212 Pneumonia due to Methicillin resistant Staphylococcus aureus; J96.01 Acute respiratory failure with hypoxia; N17.0 Acute kidney failure with tubular necrosis; I63.422 Cerebral infarction due to embolism of left anterior cerebral artery; G93.41 Metabolic encephalopathy; J69.0 Pneumonitis due to inhalation of food and vomit; R65.21 Severe sepsis with septic shock; N39.0 Urinary tract infection, site not specified; I69.351 Hemiplegia and hemiparesis following cerebral infarction affecting right dominant side; Z94.4 Liver transplant status; K76.6 Portal hypertension; J98.11 Atelectasis; E87.20 Acidosis, unspecified; E87.1 Hypo-osmolality and hyponatremia; R47.01 Aphasia; J90 Pleural effusion, not elsewhere classified; D84.821 Immunodeficiency due to drugs; B37.0 Candidal stomatitis; E11.649 Type 2 diabetes mellitus with hypoglycemia without coma; D69.6 Thrombocytopenia, unspecified; I12.9 Hypertensive chronic kidney disease with stage 1 through stage 4 chronic kidney disease, or unspecified chronic kidney disease; I08.3 Combined rheumatic disorders of mitral, aortic and tricuspid valves; E03.9 Hypothyroidism, unspecified; N18.31 Chronic kidney disease, stage 3a; I65.23 Occlusion and stenosis of bilateral carotid arteries; L89.152 Pressure ulcer of sacral region, stage 2; R13.10 Dysphagia, unspecified; K74.69 Other cirrhosis of liver; R29.810 Facial weakness; Z68.29 Body mass index [BMI] 29.0-29.9, adult; E83.42 Hypomagnesemia; I69.391 Dysphagia following cerebral infarction; K57.30 Diverticulosis of large intestine without perforation or abscess without bleeding; I86.8 Varicose veins of other specified sites; E87.6 Hypokalemia; E78.5 Hyperlipidemia, unspecified; I87.8 Other specified disorders of veins; K21.9 Gastro-esophageal reflux disease without esophagitis; N40.0 Benign prostatic hyperplasia without lower urinary tract symptoms; R47.1 Dysarthria and anarthria; B96.4 Proteus (mirabilis) (morganii) as the cause of diseases classified elsewhere; R47.02 Dysphasia; T50.8X5A Adverse effect of diagnostic agents, initial encounter; Z78.9 Other specified health status; N28.1 Cyst of kidney, acquired; E87.70 Fluid overload, unspecified; T45.1X5A Adverse effect of antineoplastic and immunosuppressive drugs, initial encounter; M19.90 Unspecified osteoarthritis, unspecified site; R53.81 Other malaise; R60.0 Localized edema; R77.8 Other specified abnormalities of plasma proteins; E86.0 Dehydration; E11.22 Type 2 diabetes mellitus with diabetic chronic kidney disease; Z20.822 Contact with and (suspected) exposure to COVID-19; Z86.14 Personal history of Methicillin resistant Staphylococcus aureus infection; Z79.899 Other long term (current) drug therapy; Z79.82 Long term (current) use of aspirin; Z28.311 Partially vaccinated for COVID-19; Z79.624 Long term (current) use of inhibitors of nucleotide synthesis; Z87.81 Personal history of (healed) traumatic fracture; Z79.52 Long term (current) use of systemic steroids
CPT/HCPCS: 36415; 36573; 36600; 43246; 70450; 70496; 70498; 70549; 71045; 74176; 74230; 80048; 80053; 80061; 80197; 81001; 82140; 82533; 82607; 82746; 82805; 83036; 83605; 83735; 83880; 84075; 84132; 84145; 84443; 84450; 84460; 84484; 85025; 85027; 85384; 85610; 85730; 86022; 87040; 87045; 87046; 87070; 87077; 87086; 87186; 87205; 87324; 87502; 87635; 93005; 93306; 93312; 93320; 93325; 93880; 94002; 94003; 94640; 94760; 95822; 96361; 96365; 96366; 96375; 96376; 99285

== ENCOUNTER 2022-11-29 11:04 | Emergency (ER) | payer MEDICARE, BC ==
[2022-11-29 11:10] VITALS: RESP 18; TEMP 97.9
--- NOTE | 2022-11-29 11:38 | CT ---
EXAMINATION TYPE: CT brain wo con DATE OF EXAM: 11/29/2022 COMPARISON: 08/28/2022 HISTORY: fall hit head, on blood thinners CT DLP: 1103.4 mGycm Automated exposure control for dose reduction was used. FINDINGS: No acute hemorrhage or mass effect. Calvarium intact. No midline shift. There is moderate generalized degenerative disc disease with a focal area of low attenuation involvin g the left parietal lobe compatible with remote ischemia stable from prior exam. Intracranial atherosclerotic changes are seen. Orbits are symmetric. Craniocervical junction is maint ained. Sella turcica is normal. IMPRESSION: 1. NO ACUTE HEMORRHAGE OR MASS EFFECT. 2. DEGENERATIVE AND REMOTE ISCHEMIC CHANGE.
[2022-11-29] MEDS ORDERED: LIDOCAINE 5% PATCH TOPICAL STA (12:08)
--- NOTE | 2022-11-29 12:36 | XR ---
EXAM TYPE: LUMBAR SPINE X RAY SERIES COMPARISON: 08/06/2011 HISTORY: Pain TECHNIQUE: 4 views are submitted. FINDINGS: Alignment is anatomic. The pedicles are intact. The transverse processes are intact. There is no s pondylolysis or spondylolisthesis. There are severe compression fractures L5 and L2 which are retros pectively stable. Mild to moderate superior endplate compression fracture L4 stable. Mild to moderate superior endplate compression fracture L1 stable. Multilevel facet arthropathy. Mild superior endplate compression fracture T12 stable. IMPRESSION: 1. Multiple compression fractures appear stable from prior exam..
--- NOTE | 2022-11-29 12:53 | ED ---
Fall HPI - General Chief Complaint: Fall Stated Complaint: fall, hit head on thinners Time Seen by Provider: 11/29/22 11:57 Source: patient Mode of arrival: wheelchair - History of Present Illness Initial Comments: Patient is a 77-year-old male who presents for evaluation of fall. Patient tripped and fell yesterday in his home, hitting the side of his head on the fireplace. The fall was witnessed by his son. Patient did not lose consciousness. He is on Plavix. Patient states he just wants to get checked out today make sure he is okay. He denies headache, double vision, blurry vision, chest pain, shortness of breath. He does admit to some low back pain when laying down which is somewhat chronic in nature. No numbness and tingling of the extremities, groin, or buttock region. No leg weakness. No loss of bowel or bladder function. No burning with urination, blood in the urine. - Related Data Home Medications Medication Instructions Recorded Confirmed Tamsulosin [Flomax] 0.4 mg PO HS 07/20/15 11/29/22 dexAMETHasone ORAL [Hexadrol] 0.5 mg PO HS 07/20/15 11/29/22 mycophenolate mofetiL [Cellcept] 1,000 mg PO BID 07/20/15 11/29/22 Latanoprost [Xalatan 0.005%] 1 drop BOTH EYES HS 11/28/21 11/29/22 Cholecalciferol [Vitamin D3 (125 125 mcg PO HS 08/23/22 11/29/22 Mcg = 5000 Iu)] Metoprolol Succinate [Toprol XL] 50 mg PO DAILY 11/29/22 11/29/22 Multivitamins, Thera [Multivitamin 1 tab PO DAILY 11/29/22 11/29/22 (formulary)] Pravastatin Sodium [Pravachol] 10 mg PO HS 11/29/22 11/29/22 Previous Rx's Medication Instructions Recorded Aspirin 81 mg PO DAILY tab 09/21/22 Calcium Carbonate [Tums] 1,000 mg PO QID PRN tab 09/21/22 Clopidogrel [Plavix] 75 mg PO DAILY tab 09/21/22 Tacrolimus [Prograf] 1 mg PO BID cap 09/21/22 Lidocaine 5% Patch [Lidoderm 5% 1 patch TOPICAL DAILY #5 patch 11/29/22 Patch] Allergies Allergy/AdvReac Type Severity Reaction Status Date / Time No Known Allergies Allergy Verified 11/29/22 12:50 Review of Systems ROS Statement: Those systems with pertinent positive or pertinent negative responses have been documented in the HPI. ROS Other: All systems not noted in ROS Statement are negative. 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 Past Anesthesia/Blood Transfusion Reactions: No Reported Reaction Additional Past Anesthesia/Blood Transfusion Reaction / Comment(s): Pt received blood in past without reaction. hx jaw fx- had surgery and has a plate. a little confusion when first waking up Past Psychological History: No Psychological Hx Reported Smoking Status: Never smoker Past Alcohol Use History: None Reported Past Drug Use History: None Reported - Past Family History Father Family Medical History: Cancer Additional Family Medical History / Comment(s): Father was healthy. He around the age of 83 yrs. Mother Family Medical History: Myocardial Infarction (OR) Additional Family Medical History / Comment(s): Mother of a OR at the age of 83 yrs. General Exam Limitations: no limitations General appearance: alert, in no apparent distress Head exam: Present: atraumatic, normocephalic, normal inspection Respiratory exam: Present: normal lung sounds bilaterally. Absent: respiratory distress, wheezes, rales, rhonchi, stridor Cardiovascular Exam: Present: regular rate, normal rhythm, normal heart sounds. Absent: systolic murmur, diastolic murmur, rubs, gallop, clicks Back exam: Present: normal inspection, full ROM, vertebral tenderness (lower lumbar). Absent: CVA tenderness (R), CVA tenderness (L), paraspinal tenderness Neurological exam: Present: alert, oriented X3, CN II-XII intact Psychiatric exam: Present: normal affect, normal mood Skin exam: Present: warm, dry, intact, normal color. Absent: rash Course Vital Signs 11/29/22 11/29/22 11:05 13:13 Temperature 97.9 F Pulse Rate 80 74 Respiratory 18 18 Rate Blood Pressure 162/62 135/62 O2 Sat by Pulse 99 97 Oximetry Medical Decision Making - Medical Decision Making Was pt. sent in by a medical professional or institution (, PA, NEW ACCOUNTS REPRESENTATIVE, urgent care, hospital, or [place] [facility] facility...) When possible be specific @ -[No] Did you speak to anyone other than the patient for history (EMS, parent, family, police, friend...)? What history was obtained from this source @ -[No] Did you review nursing and triage notes (agree or disagree)? Why? @ -[I reviewed and agree with nursing and triage notes] Were old charts reviewed (outside hosp., previous admission, EMS record, old EKG, old radiological studies, urgent care reports/EKG's, [place] [facility] facility records)? Report findings @ -[No old charts were reviewed] Differential Diagnosis (chest pain, altered mental status, abdominal pain women, abdominal pain men, vaginal bleeding, weakness, fever, dyspnea, syncope, headache, dizziness, GI bleed, back pain, seizure, CVA, palpatations, mental health)? @ Differential Back Pain: Strain, zoster, cauda equina syndrome, epidural abscess, vertebral osteomyelitis, discitis, fracture, subluxation, disc herniation, DJD, spinal stenosis, dissection, AAA, pancreatitis, peptic ulcer disease, pyelonephritis, kidney stone, this is not meant to be an all-inclusive list. EKG interpreted by me (3pts min.). @ -[As above] X-rays interpreted by me (1pt min.). @Yes, lumbosacral x-ray shows multiple compression fractures which are very old. No acute process CT interpreted by me (1pt min.). @Yes, CT of the brain and C-spine without contrast is negative for acute process U/S interpreted by me (1pt. min.). @ -[None done] What testing was considered but not performed or refused? (CT, X-rays, U/S, labs)? Why? @ -[None] What meds were considered but not given or refused? Why? @ -Considered Tylenol however patient refused. Says back pain is mild. He did agree to a lidocaine patch. Did you discuss the management of the patient with other professionals (professionals i.e. Dr., PA, NEW ACCOUNTS REPRESENTATIVE, lab, RT, psych nurse, healthcare social worker, financial foundations associate, teacher, chief green officer, case management coordinator)? Give summary @ -[No] Was smoking cessation discussed for >3mins.? @ -[No] Was critical care preformed (if so, how long)? @ -[No] Were there social determinants of health that impacted care today? How? (Homelessness, low income, unemployed, alcoholism, drug addiction, transportation, low edu. Level, literacy, decrease access to med. care, nursing home, rehab)? @ -[No] Was there de-escalation of care discussed even if they declined (Discuss DNR or withdrawal of care, Hospice)? DNR status @ -[No] What co-morbidities impacted this encounter? (DM, HTN, Smoking, COPD, CAD, Cancer, CVA, ARF, Chemo, Hep., AIDS, mental health diagnosis, sleep apnea, morbid obesity)? @ -[None] Was patient admitted / discharged? Hospital course, mention meds given and route, prescriptions, significant lab abnormalities, going to OR and other pertinent info. @ -Discharged. CT brain and C-spine unremarkable. No signs or symptoms of saddle anesthesia. No fracture on lumbosacral x-ray. Lidocaine patches sent to pharmacy. Undiagnosed new problem with uncertain prognosis? @ -[No] Drug Therapy requiring intensive monitoring for toxicity (Heparin, Nitro, Insulin, Cardizem)? @ -[No] Were any procedures done? @ -[No] Diagnosis/symptom? @ -Fall Acute, or Chronic, or Acute on Chronic? @Acute Uncomplicated (without systemic symptoms) or Complicated (systemic symptoms)? @Uncomplicated Side effects of treatment? @ -[No] Exacerbation, Progression, or Severe Exacerbation? @ -[No] Poses a threat to life or bodily function? How? (Chest pain, USA, OR, pneumonia, PE, COPD, DKA, ARF, appy, cholecystitis, CVA, Diverticulitis, Homicidal, Suicidal, threat to staff... and all critical care pts) @ -[No] Diagnosis/symptom? @ -back pain Acute, or Chronic, or Acute on Chronic? @ -acute Uncomplicated (without systemic symptoms) or Complicated (systemic symptoms)? @ -uncomplicated Side effects of treatment? @ -[none] Exacerbation, Progression, or Severe Exacerbation] @ -[no] Poses a threat to life or bodily function? @ -[no] Dr. Velasquez is my attending. Disposition Clinical Impression: Fall, Back pain Disposition: HOME SELF-CARE Condition: Good Instructions (If sedation given, give patient instructions): Fall Prevention for Older Adults (ED) Additional Instructions: Use lidocaine patch as directed. Take Tylenol for any headache. Follow up with primary care provider in one to 2 days. Return to the emergency department if you experience new, concerning, or worsening symptoms Prescriptions: Lidocaine 5% Patch [Lidoderm 5% Patch] 1 patch TOPICAL DAILY #5 patch Is patient prescribed a controlled substance at d/c from ED?: No Referrals: Ron Edwards DO [Primary Care Provider] - 1-2 days Time of Disposition: 12:53
[2022-11-29 13:15] VITALS: BP 135/62; PULSE 74
== END 2022-11-29 13:14 | disposition home or self-care (01) ==
LOC: EC 11:04
DX: M54.50 Low back pain, unspecified (principal); I10 Essential (primary) hypertension; M19.90 Unspecified osteoarthritis, unspecified site; Z79.899 Other long term (current) drug therapy; W01.0XXA Fall on same level from slipping, tripping and stumbling without subsequent striking against object, initial encounter; Y92.009 Unspecified place in unspecified non-institutional (private) residence as the place of occurrence of the external cause
CPT/HCPCS: 70450; 72110; 99284

== ENCOUNTER 2023-02-08 12:44 | Inpatient (IN) | payer MEDICARE, BC ==
[2023-02-08] MEDS ORDERED: SODIUM CHLORIDE 0.9% 500 ML 500 ML IV ONE (13:58)
--- NOTE | 2023-02-08 14:51 | XR ---
EXAMINATION TYPE: XR chest 2V DATE OF EXAM: 02/08/2023 2:48 PM COMPARISON: Chest radiographs from 09/21/2022 TECHNIQUE: XR chest 2V Frontal and lateral views of the chest. CLINICAL INDICATION:Male, 77 years old with history of altered mental status; FINDINGS: Lungs/Pleura: There is no evidence of pleural effusion, focal consolidation, or pneumothorax. Elevat ed left diaphragm. Pulmonary vascularity: Unremarkable. Heart/mediastinum: Cardiomediastinal silhouette is unremarkable. Musculoskeletal: No acute osseous pathology. IMPRESSION: No acute cardiopulmonary disease/process.
[2023-02-08 15:22] LABS: Basophils % (A) 0 %; Eosinophils # (A) 0.3 k/uL (0-0.7); Eosinophils % (A) 4 %; HCT 39.7 % (39.0-53.0); HGB 12.4 gm/dL (13.0-17.5); Hypochromasia Slight; Lymphocytes # (A) 1.4 k/uL (1.0-4.8); Lymphocytes % (A) 16 %; MCH 27.1 pg (25.0-35.0); MCHC 31.2 g/dL (31.0-37.0); MCV 86.8 fL (80.0-100.0); Mean Platelet Volume 7.1; Monocytes # (A) 0.3 k/uL (0-1.0); Monocytes % (A) 4 %; Neutrophils # (A) 6.5 k/uL (1.3-7.7); Neutrophils % (A) 75 %; Platelet Count 211 k/uL (150-450); RBC 4.57 m/uL (4.30-5.90); RDW 14.1 % (11.5-15.5); WBC 8.7 k/uL (3.8-10.6)
[2023-02-08 15:36] LABS: Albumin 4.5 g/dL (3.5-5.0); Calcium 9.3 mg/dL (8.4-10.2); Potassium 3.9 mmol/L (3.5-5.1); Total Protein 7.8 g/dL (6.3-8.2)
[2023-02-08 15:43] LABS: Partial Thromboplastin Time 22.1 sec (22.0-30.0); Prothrombin Time 10.5 sec (9.0-12.0)
--- NOTE | 2023-02-08 16:00 | ED ---
General Adult HPI - General Chief complaint: Neuro Symptoms/Deficit Stated complaint: vision issues Time Seen by Provider: 02/08/23 13:46 Source: patient, family, RN notes reviewed, old records reviewed Mode of arrival: wheelchair Limitations: altered mental status - History of Present Illness Initial comments: This is a 77-year-old male who presents emergency Department states that he was in doing rehabilitation at physical therapy placed when he came out he was feeling a little nauseated and he states that he thinks he exerted himself too much at physical therapy. Patient states his vision started to go blurry and then he vomited and then he said he felt considerably better. Patient states he never lost his vision completely he never was blind in the right eye he says he was equally blurry out of both eyes. Patient denies headache patient denies any numbness weakness. Patient denies any recent fever chills or cough. Patient denies any abdominal pain patient denies chest pain palpitations difficulty breathing or shortness of breath. She states that he feels at his baseline currently - Related Data Home Medications Medication Instructions Recorded Confirmed Tamsulosin [Flomax] 0.4 mg PO HS 07/20/15 02/08/23 dexAMETHasone ORAL [Hexadrol] 0.5 mg PO HS 07/20/15 02/08/23 mycophenolate mofetiL [Cellcept] 1,000 mg PO BID 07/20/15 02/08/23 Latanoprost [Xalatan 0.005%] 1 drop BOTH EYES HS 11/28/21 02/08/23 Cholecalciferol [Vitamin D3 (125 125 mcg PO HS 08/23/22 02/08/23 Mcg = 5000 Iu)] Metoprolol Succinate [Toprol XL] 50 mg PO DAILY 11/29/22 02/08/23 Multivitamins, Thera [Multivitamin 1 tab PO DAILY 11/29/22 02/08/23 (formulary)] Pravastatin Sodium [Pravachol] 10 mg PO HS 11/29/22 02/08/23 Tacrolimus [Prograf] 0.5 mg PO BID 02/08/23 02/08/23 Previous Rx's Medication Instructions Recorded Aspirin 81 mg PO DAILY tab 09/21/22 Calcium Carbonate [Tums] 1,000 mg PO QID PRN tab 09/21/22 Clopidogrel [Plavix] 75 mg PO DAILY tab 09/21/22 Allergies Allergy/AdvReac Type Severity Reaction Status Date / Time No Known Allergies Allergy Verified 02/08/23 14:41 Review of Systems ROS Statement: Those systems with pertinent positive or pertinent negative responses have been documented in the HPI. ROS Other: All systems not noted in ROS Statement are negative. 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 Past Anesthesia/Blood Transfusion Reactions: No Reported Reaction Additional Past Anesthesia/Blood Transfusion Reaction / Comment(s): Pt received blood in past without reaction. hx jaw fx- had surgery and has a plate. a little confusion when first waking up Past Psychological History: No Psychological Hx Reported Smoking Status: Never smoker Past Alcohol Use History: None Reported Past Drug Use History: None Reported - Past Family History Father Family Medical History: Cancer Additional Family Medical History / Comment(s): Father was healthy. He around the age of 83 yrs. Mother Family Medical History: Myocardial Infarction (MS) Additional Family Medical History / Comment(s): Mother of a MS at the age of 83 yrs. General Exam - General Exam Comments Initial Comments: GENERAL: Patient is well-developed and well-nourished. Patient is nontoxic and well- hydrated and is in no acute distress. ENT: Neck is soft and supple. No significant lymphadenopathy is noted. Oropharynx is clear. Moist mucous membranes. Neck has full range of motion without eliciting any pain. EYES: The sclera were anicteric and conjunctiva were pink and moist. Extraocular movements were intact and pupils were equal round and reactive to light. Eyelids were unremarkable. PULMONARY: Unlabored respirations. Good breath sounds bilaterally. No audible rales rhonchi or wheezing was noted. CARDIOVASCULAR: There is a regular rate and rhythm without any murmurs gallops or rubs. ABDOMEN: Soft and nontender with normal bowel sounds. SKIN: Skin is clear with no lesions or rashes and otherwise unremarkable. NEUROLOGIC: Patient is alert and oriented x3. Cranial nerves II through XII are grossly intact. Motor and sensory are also intact. Normal speech, volume and content. Symmetrical smile. Cerebellar exam grossly intact. NIH is 0 MUSCULOSKELETAL: Normal extremities with adequate strength and full range of motion. No lower extremity swelling or edema. No calf tenderness. LYMPHATICS: No significant lymphadenopathy is noted PSYCHIATRIC: Normal psychiatric evaluation. Limitations: altered mental status Course Vital Signs 02/08/23 02/08/23 12:48 16:10 Temperature 98.6 F Pulse Rate 65 86 Respiratory 20 18 Rate Blood Pressure 129/63 133/60 O2 Sat by Pulse 99 97 Oximetry Medical Decision Making - Medical Decision Making Patient's EKG was interpreted by myself shows a sinus rhythm with occasional PACs at 63 bpm RI interval 188 QRSs 127 QT intervals 420 QTC is 437. Patient's EKG shows no ST segment elevation or depression. Was pt. sent in by a medical professional or institution (, PA, [employer], urgent care, hospital, or [facility]...) When possible be specific @ -No Did you speak to anyone other than the patient for history (EMS, parent, family, police, friend...)? What history was obtained from this source @ -Son gave some of the history. Did you review nursing and triage notes (agree or disagree)? Why? @ -I reviewed and agree with nursing and triage notes Were old charts reviewed (outside hosp., previous admission, EMS record, old EKG, old radiological studies, urgent care reports/EKG's, [facility] records)? Report findings @ -Differential CVA Ischemic stroke, hemorrhagic stroke, brain tumor, atypical migraine, Wernicke's encephalopathy, seizure, multiple sclerosis, meningitis, encephalitis, hypoglycemia, Guillain-Pritchard, electrolytes disturbance, myasthenia gravis.... This is not meant to be an all-inclusive list Differential Diagnosis (chest pain, altered mental status, abdominal pain women, abdominal pain men, vaginal bleeding, weakness, fever, dyspnea, syncope, headache, dizziness, GI bleed, back pain, seizure, CVA, palpatations, mental health, musculoskeletal)? @ -not applicable EKG interpreted by me (3pts min.). @ -As above X-rays interpreted by me (1pt min.). @ -Chest x-ray was interpreted by myself. Chest x-ray shows no acute abnormali ty CT interpreted by me (1pt min.). @ -CT of the brain was interpreted by myself is in no acute abnormality. CTA showed no acute abnormality. U/S interpreted by me (1pt. min.). @ -None done What testing was considered but not performed or refused? (CT, X-rays, U/S, labs)? Why? @ -None What meds were considered but not given or refused? Why? @ -None Did you discuss the management of the patient with other professionals (thomas stubbs i.e. , PA, [employer], lab, RT, psych nurse, social work professor, clinical care manager, teacher, property and supply officer, welfare case worker)? Give summary @ -I spoke with Dr. Snow he agreed to admit the patient admitted the patient wrote admitting orders Was smoking cessation discussed for >3mins.? @ -No Was critical care preformed (if so, how long)? @ -No Were there social determinants of health that impacted care today? How? (Homelessness, low income, unemployed, alcoholism, drug addiction, transportation, low edu. Level, literacy, decrease access to med. care, half-way, rehab)? @ -No Was there de-escalation of care discussed even if they declined (Discuss DNR or withdrawal of care, Hospice)? DNR status @ -No What co-morbidities impacted this encounter? (DM, HTN, Smoking, COPD, CAD, Cancer, CVA, ARF, Chemo, Hep., AIDS, mental health diagnosis, sleep apnea, morbid obesity)? @ -None Was patient admitted / discharged? Hospital course, mention meds given and route, prescriptions, significant lab abnormalities, going to OR and other pertinent info. @ -Patient had a CT CTA because of his strokelike visual loss. Patient has been without symptoms since he came into the emergency department and he remained that way throughout his ED course. Patient's lab work showed no acute abnormality. CT CTA showed no acute abnormality. I spoke with Dr. Snow and he agreed to admit the patient admitted the patient wrote admitting orders I consult the neurology. Undiagnosed new problem with uncertain prognosis? @ -No Drug Therapy requiring intensive monitoring for toxicity (Heparin, Nitro, Insulin, Cardizem)? @ -No Were any procedures done? @ -No Diagnosis/symptom? @ -TIA Acute, or Chronic, or Acute on Chronic? @ -Acute Uncomplicated (without systemic symptoms) or Complicated (systemic symptoms)? @ -Complicated Side effects of treatment? @ -No Exacerbation, Progression, or Severe Exacerbation? @ -No Poses a threat to life or bodily function? How? (Chest pain, USA, MS, pneumonia, PE, COPD, DKA, ARF, appy, cholecystitis, CVA, Diverticulitis, Homicidal, Suicidal, threat to staff... and all critical care pts) @ -This could lead to a CVA which could be life-threatening - Lab Data Result diagrams: 02/08/23 14:05 02/08/23 14:05 Lab Results 02/08/23 02/08/23 02/08/23 Range/Units 14:05 14:05 14:05 WBC 8.7 (3.8-10.6) k/uL RBC 4.57 (4.30-5.90) m/uL Hgb 12.4 L (13.0-17.5) gm/dL Hct 39.7 (39.0-53.0) % MCV 86.8 (80.0-100.0) fL MCH 27.1 (25.0-35.0) pg MCHC 31.2 (31.0-37.0) g/dL RDW 14.1 (11.5-15.5) % Plt Count 211 (150-450) k/uL MPV 7.1 Neutrophils % 75 % Lymphocytes % 16 % Monocytes % 4 % Eosinophils % 4 % Basophils % 0 % Neutrophils # 6.5 (1.3-7.7) k/uL Lymphocytes # 1.4 (1.0-4.8) k/uL Monocytes # 0.3 (0-1.0) k/uL Eosinophils # 0.3 (0-0.7) k/uL Basophils # 0.0 (0-0.2) k/uL Hypochromasia Slight PT 10.5 (9.0-12.0) sec INR 1.0 (<1.2) APTT 22.1 (22.0-30.0) sec Sodium 140 (137-145) mmol/L Potassium 3.9 (3.5-5.1) mmol/L Chloride 104 (98-107) mmol/L Carbon Dioxide 24 (22-30) mmol/L Anion Gap 12 mmol/L BUN 15 (9-20) mg/dL Creatinine 1.36 H (0.66-1.25) mg/dL Est GFR (CKD-EPI)AfAm 57 (>60 ml/min/1.73 sqM) Est GFR (CKD-EPI)NonAf 50 (>60 ml/min/1.73 sqM) Glucose 78 (74-99) mg/dL Calcium 9.3 (8.4-10.2) mg/dL Total Bilirubin 1.0 (0.2-1.3) mg/dL AST 23 (17-59) U/L ALT 18 (4-49) U/L Alkaline Phosphatase 83 (38-126) U/L Creatine Kinase (55-170) U/L Troponin I (0.000-0.034) ng/mL Total Protein 7.8 (6.3-8.2) g/dL Albumin 4.5 (3.5-5.0) g/dL 02/08/23 02/08/23 Range/Units 14:05 14:05 WBC (3.8-10.6) k/uL RBC (4.30-5.90) m/uL Hgb (13.0-17.5) gm/dL Hct (39.0-53.0) % MCV (80.0-100.0) fL MCH (25.0-35.0) pg MCHC (31.0-37.0) g/dL RDW (11.5-15.5) % Plt Count (150-450) k/uL MPV Neutrophils % % Lymphocytes % % Monocytes % % Eosinophils % % Basophils % % Neutrophils # (1.3-7.7) k/uL Lymphocytes # (1.0-4.8) k/uL Monocytes # (0-1.0) k/uL Eosinophils # (0-0.7) k/uL Basophils # (0-0.2) k/uL Hypochromasia PT (9.0-12.0) sec INR (<1.2) APTT (22.0-30.0) sec Sodium (137-145) mmol/L Potassium (3.5-5.1) mmol/L Chloride (98-107) mmol/L Carbon Dioxide (22-30) mmol/L Anion Gap mmol/L BUN (9-20) mg/dL Creatinine (0.66-1.25) mg/dL Est GFR (CKD-EPI)AfAm (>60 ml/min/1.73 sqM) Est GFR (CKD-EPI)NonAf (>60 ml/min/1.73 sqM) Glucose (74-99) mg/dL Calcium (8.4-10.2) mg/dL Total Bilirubin (0.2-1.3) mg/dL AST (17-59) U/L ALT (4-49) U/L Alkaline Phosphatase (38-126) U/L Creatine Kinase 75 (55-170) U/L Troponin I <0.012 (0.000-0.034) ng/mL Total Protein (6.3-8.2) g/dL Albumin (3.5-5.0) g/dL Disposition Clinical Impression: Transient cerebral ischemia Disposition: ADMITTED IP TO THIS HOSP Referrals: Ron Edwards DO [Primary Care Provider] - 1-2 days Time of Disposition: 16:33
--- NOTE | 2023-02-08 16:16 | CT ---
EXAMINATION TYPE: CT angio head neck, CT brain wo con CT DLP: 1533.7 mGycm, Automated exposure control for dose reduction was used. DATE OF EXAM: 02/08/2023 1:33 PM COMPARISON: CT brain 11/29/2022. CLINICAL INDICATION:Male, 77 years old with history of Visual loss;stroke symptoms TECHNIQUE: Axially acquired helical CT angiogram of the head and neck was obtained with contrast. Axi al images are supplemented with 3D reconstructions [facility] NAS[facility] criteria used. Contrast used:65 mL of Isovue 370 with IV Contrast, Oral contrast used: None. FINDINGS: Extra-axial spaces: No abnormal extra-axial fluid collections. Ventricular system: Within normal limits Cerebral parenchyma: Remote injury to the left posterior frontal lobe medially/parietal region. No ac farrah intraparenchymal hemorrhage or mass effect. The alvarado-white junction is well differentiated. Cerebellum: Unremarkable. Mass effect: No evidence of midline shift. Intracranial vasculature: unremarkable Soft tissues: Normal. Calvarium/osseous structures: No depressed skull fracture. Paranasal sinuses and mastoid air cells: Mild scattered paranasal sinus disease. Visualized orbits: Orbital contents are intact. CTA HEAD: Remote left frontal lobe/parietal region CVA with encephalomalacia. Bilaterally aphakia. No evidence of acute intracranial hemorrhage, mass effect, or midline shift. The ventricles, sulci, a nd cisterns are unremarkable. The visualized portions of the internal carotid arteries, middle cerebral arteries, anterior cerebral arteries, and posterior cerebral arteries are patent. The basilar and vertebral arteries are patent. CTA NECK: Right Carotid System: The common carotid artery and external carotid artery are patent. The carotid bifurcation demonstrate s no evidence of hemodynamically significant stenosis. The remaining portions of the internal carotid artery demonstrate normal size without significant narrowing. Left Carotid System: The common carotid artery and external carotid artery are patent. The carotid bifurcation demonstrate s no evidence of hemodynamically significant stenosis. The remaining portions of the internal carotid artery demonstrate normal size without significant narrowing. Vertebral arteries are patent without evidence hemodynamically significant stenosis. There is a three-vessel aortic arch. The origins of the great vessels are patent. No evidence of hemo dynamically significant stenosis. IMPRESSION: 1. No evidence of dissection of the cervical internal carotid arteries or vertebral arteries or any e vidence of significant stenosis at the carotid bifurcations. 2. No evidence of intracranial high-grade stenosis or intracranial aneurysm. 3. Remote left frontal/parietal region injury. 4. No acute intracranial process.
--- NOTE | 2023-02-09 11:55 | P.CNNES ---
History of Present Illness Consult date: 02/09/23 Requesting physician: Rahat Ambrocio Reason for Consult: TIA History of Present Illness: As is a 77-year-old gentleman with history of strokes (one left STEVE territory in 08/2022) with residual weakness over the right side, liver failure status post transplant who presented emergency department because of visual disturbance. Patient stated that the yesterday he was getting his routine physical therapy and 20-30 minutes after physical therapy noticed that he could not see out of both eyes and he felt was blurry wall had an episode of vomiting. He notified his grandson as a result he presented emergency department. He denied any focal weakness numbness any difficulty swallowing. He feels the his vision has impr isaac. He denied any headache. Patient's taking aspirin 81 mg, Plavix 75 mg daily. He denies missing the medication. He states he does have underlying history of hypertension but at he feels for the most part is controlled. Of note I personally seen the patient last in the August 2022 and the patient had left STEVE stroke involving the parietal region with right hemiparesis and was felt at cryptogenic. He had carotid stenosis of 50-70% stenosis around that time but the vascular surgery felt just at 50% and them MRA of the neck does not reveal any significant stenosis. Please refer to my note for further details Some other workup during this hospital visit consisted of: CT of the head, CT angiography of the head and neck was reported as no evidence of dissection of the cervical internal carotid artery or vertebral artery or any evidence of significant stenosis at the carotid bifurcation. No evidence of intracranial high-grade stenosis or intracranial aneurysm. Remote left frontal parietal region injury. No acute intracranial process. I personally reviewed that a CT and I agree the patient has an old encephalomalacia over the left frontal parietal region. Initial loss serum glucose is 78. The sodium, calcium are within normal limits No IV TPA and his NIH stroke scale was a 0 in the ED and the risk outweighed the benefit of given IV TPA. Review of Systems Review of system: The 12 point system was reviewed and apparent positive and n egative per HPI. 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 Past Anesthesia/Blood Transfusion Reactions: No Reported Reaction Additional Past Anesthesia/Blood Transfusion Reaction / Comment(s): Pt received blood in past without reaction. hx jaw fx- had surgery and has a plate. 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 He around the age of 83 yrs. Mother Family Medical History: Myocardial Infarction ([place]) Additional Family Medical History / Comment(s): Mother of a [place] at the age of 83 yrs. Medications and Allergies Home Medications Medication Instructions Recorded Confirmed Type Tamsulosin [Flomax] 0.4 mg PO HS 07/20/15 02/08/23 History dexAMETHasone ORAL [Hexadrol] 0.5 mg PO HS 07/20/15 02/08/23 History mycophenolate mofetiL [Cellcept] 1,000 mg PO BID 07/20/15 02/08/23 History Latanoprost [Xalatan 0.005%] 1 drop BOTH EYES HS 11/28/21 02/08/23 History Cholecalciferol [Vitamin D3 (125 125 mcg PO HS 08/23/22 02/08/23 History Mcg = 5000 Iu)] Aspirin 81 mg PO DAILY tab 09/21/22 02/08/23 Rx Calcium Carbonate [Tums] 1,000 mg PO QID PRN tab 09/21/22 02/08/23 Rx Clopidogrel [Plavix] 75 mg PO DAILY tab 09/21/22 02/08/23 Rx Metoprolol Succinate [Toprol XL] 50 mg PO DAILY 11/29/22 02/08/23 History Multivitamins, Thera [Multivitamin 1 tab PO DAILY 11/29/22 02/08/23 History (formulary)] Pravastatin Sodium [Pravachol] 10 mg PO HS 11/29/22 02/08/23 History Tacrolimus [Prograf] 0.5 mg PO BID 02/08/23 02/08/23 History Allergies Allergy/AdvReac Type Severity Reaction Status Date / Time No Known Allergies Allergy Verified 02/08/23 14:41 Physical Examination - Vital Signs Vital Signs: Vital Signs Temp Pulse Pulse Resp BP BP Pulse Ox 02/09/23 08:00 76 16 113/53 98 02/09/23 04:00 98.2 F 72 18 115/64 96 02/08/23 23:32 98 F 78 20 136/54 95 02/08/23 23:10 79 18 107/60 95 02/08/23 19:34 80 18 116/46 97 02/08/23 18:00 72 18 130/78 98 02/08/23 16:10 86 18 133/60 97 02/08/23 12:48 98.6 F 65 20 129/63 99 Intake and Output 02/08/23 02/09/23 02/09/23 22:59 06:59 14:59 Output Total 600 Balance -600 Output: Urine 600 Other: Weight 88.451 kg GENERAL: The patient is lying in bed and is not in acute distress. CHEST: The heart rate is regular rate rhythm. No murmurs to auscultation. . LUNG: Clear to auscultation bilaterally no wheezing noted throughout. Not la bored breathing. ABDOMEN/GI: Bowel sounds present in all 4 quadrants. No tenderness to palpation throughout. NEUROLOGICAL: Higher mental function: The patient is awake, alert, oriented to self, place and time. Patient is following commands. No aphasia and no neglect. Cranial nerves: The pupils are round, equal and reactive to light and accommodation. Visual hardy are full to confrontation throughout. Extraocular movement is intact no nystagmus is noted. Facial sensation is normal to touch throughout. The facial strength is normal throughout. Hearing is moderately decreased bilaterally to hand rub. Tongue is midline and moved [id number] without any difficulty. No dysarthria is noted. Motor: The strength is right upper extremity is shoulder flexion/extension is 4+, forearm extension is 4+, right hand residential field manager is 4+ to 5-. Right lower is hard to assess because of cooperation but is able to lift above gravity (about 4+) and right foot has weakness more in dorsiflexion than plantarflexion and could not do resistant on right foot. Otherwise left is 5/5. Normal tone and bul k. Cerebellum: Normal finger to nose bilaterally. Sensation: Sensation is normal to touch throughout. Reflexes (right/left): 1+ Plantars are downgoing bilaterally. Results - Laboratory Findings CBC and BMP: 02/08/23 14:05 02/08/23 14:05 Abnormal Lab Findings: Abnormal Labs 02/08/23 02/08/23 14:05 14:05 Hgb 12.4 L Creatinine 1.36 H Assessment and Plan Assessment: This is a 77-year-old gentleman who presented that because of sudden onset the blurry vision of both eyes and on presentation his NIH was a 0. Probable transient ischemic attack (visual disturbance) History of old stroke over the left STEVE (involving fronto/parietal region) in 08/2022 with residual right hemiparesis Hypertension History of liver failure status post transplant Plan: I ordered MRI the brain, 2-D echo. Lipid panel is ordered pending I I started the patient on Brilinta 90mg 1 tab bid. Not Plavix since failed medication. We started aspirin 81 mg. I showed the patient on Lipitor 40 mg daily at bedtime for secondary stroke prophylaxis Neurochecks Cardiac monitoring PT OT and INTERNATIONAL FLIGHT ATTENDANT are consulted I ordered ESR CRP as well as TSH level. I also ordered hemoglobin A1c to assess about his diabetes status was can increase risk for stroke. We'll defer the rest of the medical management to primary team For DVT prophylaxis start the patient on subcu heparin 5000 units every 8 hours Thank you for the consultation. Time with Patient: Greater than 30
[2023-02-09] MEDS: TICAGRELOR 90 MG TAB PO SCH ×2 (12:10→21:34)
[2023-02-09] MEDS: ASPIRIN 81 MG PO SCH (12:10)
[2023-02-09 14:50] LABS: C Reactive Protein 6.6 mg/dL (<1.0)
[2023-02-09 15:52] LABS: Chol/HDL Ratio 4.14 Ratio
[2023-02-09] MEDS: HEPARIN SODIUM,PORCINE/PF 5,000 UNIT/0.5 ML SYRINGE SQ SCH (17:11)
--- NOTE | 2023-02-09 18:00 | CA ---
Transthoracic Echo Report Name: Dom Rene Age: 77 Gender: M : 1945 Exam Date: 02/09/2023 13:30 Exam Location: [place] [facility] Ht (in): 69 Wt (lb): 195 Ordering Physician: Poncho De Santiago MD Attending/Referring Phys: Senior Analyst Forrest De La Fuente RDCS Procedure CPT: Indications: stroke Cardiac Hx: SOB Technical Quality: Fair Contrast 1: Total Dose (mL): Contrast 2: Total Dose (mL): MEASUREMENTS (Male / Female) Normal Values 2D ECHO LV Diastolic Diameter PLAX 3.8 cm 4.2 - 5.9 / 3.9 - 5.3 cm LV Systolic Diameter PLAX 2.5 cm LV Fractional Shortening PLAX 34.0 % IVS Diastolic Thickness 1.2 cm 0.6 - 1.0 / 0.6 - 0.9 cm IVS Systolic Thickness 1.5 cm LVPW Diastolic Thickness 1.3 cm 0.6 - 1.0 / 0.6 - 0.9 cm LVPW Systolic Thickness 1.4 cm LV Relative Wall Thickness 0.6 RV Internal Dim ED PLAX 3.0 cm LVOT Diameter 1.9 cm LV Diastolic Volume MOD BP 72.9 cm??? 67 - 155 / 56 - 104 cm??? LV Systolic Volume MOD BP 55.9 cm??? 22 - 58 / 19 - 49 cm??? LV Ejection Fraction MOD BP 23.2 % >= 55 % LV Stroke Volume MOD BP 16.9 cm??? LV Diastolic Volume MOD 4C 75.2 cm??? LV Systolic Volume MOD 4C 43.7 cm??? LV Ejection Fraction MOD 4C 41.9 % LV Stroke Volume MOD 4C 31.5 cm??? LV Diastolic Length 4C 8.1 cm LV Systolic Length 4C 7.1 cm LV Diastolic Volume MOD 2C 68.8 cm??? LV Systolic Volume MOD 2C 66.1 cm??? LV Ejection Fraction MOD 2C 4.0 % LV Stroke Volume MOD 2C 2.7 cm??? LV Diastolic Length 2C 7.7 cm LV Systolic Length 2C 7.8 cm M-MODE Aortic Root Diameter MM 3.0 cm LA Systolic Diameter MM 3.2 cm LA Ao Ratio MM 1.1 MV E Point Septal Separation 1.0 cm AV Cusp Separation MM 1.2 cm DOPPLER AV Peak Velocity 192.2 cm/s AV Peak Gradient 14.8 mmHg LVOT Peak Velocity 134.7 cm/s LVOT Peak Gradient 7.3 mmHg AV Area Cont Eq pk 2.0 cm??? MV Deceleration [place] 208.6 cm/s??? MR Peak Velocity 167.2 cm/s MR Peak Gradient 11.2 mmHg Mitral E Point Velocity 59.3 cm/s Mitral A Point Velocity 82.9 cm/s Mitral E to A Ratio 0.7 MV Deceleration Time 284.1 ms MV E' Velocity 6.5 cm/s Mitral E to MV E' Ratio 9.1 TR Peak Velocity 205.2 cm/s TR Peak Gradient 16.8 mmHg Right Ventricular Systolic Press 26.8 mmHg PV Peak Velocity 148.5 cm/s PV Peak Gradient 8.8 mmHg FINDINGS Left Ventricle Left ventricular ejection fraction is estimated at 45-50 %. Borderline left ventricular hypertrophy. Grade 1 diastolic dysfunction. Right Ventricle Normal right ventricular size and function. RVSP- 27 mm Hg. Right Atrium Mild right atrial dilatation. Left Atrium Normal left atrial size. Mitral Valve Structurally normal mitral valve. Trace mitral regurgitation. Aortic Valve Trileaflet aortic valve. Tricuspid Valve Mild tricuspid regurgitation. Pulmonic Valve Valvular pulmonic stenosis. PVmax-1.48m/s Pericardium Normal pericardium. No pericardial effusion. Aorta Normal size aortic root and proximal ascending aorta. CONCLUSIONS Mildly reduced LV systolic function ejection fraction 45% Previewed by: Dr. Jameson Hoff MD (Electronically Signed) Final Date: 09 February 2023 17:59
[2023-02-09] MEDS ORDERED: ATORVASTATIN 40 MG TAB PO SCH (21:00)
[2023-02-10] MEDS: HEPARIN SODIUM,PORCINE/PF 5,000 UNIT/0.5 ML SYRINGE SQ SCH ×2 (01:31→08:29)
--- NOTE | 2023-02-10 01:52 | P.HPIM ---
History of Present Illness H&P Date: 02/09/23 Chief Complaint: Blurry vision Patient is a 77-year-old male with a known history of hypertension, osteoarthritis, hypothyroidism, history of CVA with residual right-sided wea kness, history of liver transplant, BPH presents to ER due to complaints of visual disturbance/blurry vision. Patient went to his regular physical therapy and he was going back with his grandson after about 20 minutes. He felt nauseated and and thought he had exerted himself too much of physical therapy. Then he felt like blurry vision and had an episode of vomiting. Patient felt better after that. 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 Otherwise denies any headache. No focal weakness. No complaints of fever or chills. No chest pain or shortness of breath. No palpitations. Denies any recent illnesses. On admission CT angiogram of the head and neck showed no evidence of dissection of the cervical internal carotid arteries or vertebral arteries or any evidence of significant stenosis at the carotid bifurcations. Remote left frontal/parietal region injury. No acute intracranial process. Chest x-ray showed no acute cardiopulmonary process. EKG showed sinus rhythm with occasional supraventricular complexes. Laboratory data showed WBC 8.7 hemoglobin 12.4 and platelets 211 Sodium 140 potassium 3.9 chloride 104 bicarb is 24 BUN 15 and creatinine 1.36 A1c 5.1 fluorograms and elevated troponin x1 negative LDL is 132, total cholesterol 207 and TSH 2.4 Review of Systems Constitutional: Patient denies any fever or chills . no Generalized weakness. Abdomen: Patient denied any nausea or vomiting or abd. pain Cardiovascular: Patient denies any chest pain or short of breath no palpitations. Respiratory: patient denied any cough . no sputum production. No shortness of breath Neurologic: Patient denied any numbness or tingling headache. Blurry vision. Musculoskeletal: Patient denies any complaints of joint swelling or deformity. Skin: Negative Psychiatric: Negative Endocrine: No heat or cold intolerance. No recent weight gain. Genitourinary: No dysuria or hematuria. 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 Past Anesthesia/Blood Transfusion Reactions: No Reported Reaction Additional Past Anesthesia/Blood Transfusion Reaction / Comment(s): Pt received blood in past without reaction. hx jaw fx- had surgery and has a plate. 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 He around the age of 83 yrs. Mother Family Medical History: Myocardial Infarction ([place]) Additional Family Medical History / Comment(s): Mother of a [place] at the age of 83 yrs. Medications and Allergies Home Medications Medication Instructions Recorded Confirmed Type Tamsulosin [Flomax] 0.4 mg PO HS 07/20/15 02/08/23 History dexAMETHasone ORAL [Hexadrol] 0.5 mg PO HS 07/20/15 02/08/23 History mycophenolate mofetiL [Cellcept] 1,000 mg PO BID 07/20/15 02/08/23 History Latanoprost [Xalatan 0.005%] 1 drop BOTH EYES HS 11/28/21 02/08/23 History Cholecalciferol [Vitamin D3 (125 125 mcg PO HS 08/23/22 02/08/23 History Mcg = 5000 Iu)] Aspirin 81 mg PO DAILY tab 09/21/22 02/08/23 Rx Calcium Carbonate [Tums] 1,000 mg PO QID PRN tab 09/21/22 02/08/23 Rx Clopidogrel [Plavix] 75 mg PO DAILY tab 09/21/22 02/08/23 Rx Metoprolol Succinate [Toprol XL] 50 mg PO DAILY 11/29/22 02/08/23 History Multivitamins, Thera [Multivitamin 1 tab PO DAILY 11/29/22 02/08/23 History (formulary)] Pravastatin Sodium [Pravachol] 10 mg PO HS 11/29/22 02/08/23 History Tacrolimus [Prograf] 0.5 mg PO BID 02/08/23 02/08/23 History Allergies Allergy/AdvReac Type Severity Reaction Status Date / Time No Known Allergies Allergy Verified 02/08/23 14:41 Physical Exam Vitals: Vital Signs Temp Pulse Pulse Resp BP BP Pulse Ox 02/09/23 12:00 75 16 135/61 98 02/09/23 08:00 76 16 113/53 98 02/09/23 04:00 98.2 F 72 18 115/64 96 02/08/23 23:32 98 F 78 20 136/54 95 02/08/23 23:10 79 18 107/60 95 02/08/23 19:34 80 18 116/46 97 02/08/23 18:00 72 18 130/78 98 02/08/23 16:10 86 18 133/60 97 Intake and Output 02/08/23 02/09/23 02/09/23 22:59 06:59 14:59 Output Total 600 Balance -600 Output: Urine 600 Other: Weight 88.451 kg PHYSICAL EXAMINATION: Patient is lying in the bed comfortably, no acute distress, awake alert and oriented.. HEENT: Normocephalic. Neck is supple. Pupils reactive. Nostrils clear. Oral cavity is moist. Neck reveals no JVD, carotid bruits, or thyromegaly. CHEST EXAMINATION: Trachea is central. Symmetrical expansion. Lung hardy clear to auscultation and percussion. CARDIAC: Normal S1, S2 with no gallops. No murmurs ABDOMEN: Soft. Bowel sounds present. Nontender. No organomegaly. No abdominal bruits. Extremities: reveal no edema. No clubbing or cyanosis Neurologically awake, alert, oriented x3 with well-coordinated movements. No f ocal deficits noted. Right-sided weakness with muscle strength 4 out of 5. Skin: No rash or skin lesions. Psychiatric: Coperative. Nonsuicidal, Musculoskeletal: No joint swelling or deformity. Normal range of motion. Results CBC & Chem 7: 02/08/23 14:05 02/08/23 14:05 Labs: Abnormal Lab Results - Last 24 Hours (Table) 02/08/23 02/08/23 Range/Units 14:05 14:05 Hgb 12.4 L (13.0-17.5) gm/dL Creatinine 1.36 H (0.66-1.25) mg/dL Thrombosis Risk Factor Assmnt - DVT/VTE Prophylaxis DVT/VTE Prophylaxis: Pharmacologic Prophylaxis ordered - Choose All That Apply Any of the Below Risk Factors Present?: Yes Each Factor Represents 1 point: Obesity (BMI >25) Other Risk Factors: Yes Each Risk Factor Represents 3 Points: Age 75 years or older Other congenital or acquired thrombophilia - If yes, enter type in comment: Yes Each Risk Factor Represents 5 Points: Stroke (< 1 month) Thrombosis Risk Factor Assessment Total Risk Factor Score: 9 Thrombosis Risk Factor Assessment Level: High Risk Assessment and Plan Assessment: Acute right blurry vision involving both eyes. Improved now. Possible TIA. History of CVA involving left frontoparietal region. Residual right-sided weakness. Hypertension History of liver transplant in 1999 BPH Hypothyroidism GERD Hyperlipidemia Osteoarthritis DVT prophylaxis with heparin subcu Plan: Patient will be continued on telemetry monitoring. Continue with aspirin and statins and patient was started on Brilinta. Lasix is on hold. Continue with home medication including tacrolimus and mycophenolate. Follow-up renal function. Neurology is on board. MRI of the brain without contrast was ordered. Continue to follow closely. Continue with neurochecks. Discussed with the patient and his family at bedside in detail. Time with Patient: Greater than 30
[2023-02-10] MEDS: ASPIRIN 81 MG PO SCH (08:29)
[2023-02-10] MEDS: TICAGRELOR 90 MG TAB PO SCH (08:30)
[2023-02-10 09:00] LABS: Basophils % (A) 0 %; Eosinophils # (A) 0.3 k/uL (0-0.7); Eosinophils % (A) 5 %; HCT 32.6 % (39.0-53.0); HGB 10.1 gm/dL (13.0-17.5); Lymphocytes # (A) 0.9 k/uL (1.0-4.8); Lymphocytes % (A) 18 %; MCH 26.7 pg (25.0-35.0); MCHC 31.1 g/dL (31.0-37.0); MCV 85.9 fL (80.0-100.0); Mean Platelet Volume 7.1; Monocytes # (A) 0.3 k/uL (0-1.0); Monocytes % (A) 6 %; Neutrophils # (A) 3.4 k/uL (1.3-7.7); Neutrophils % (A) 68 %; Platelet Count 207 k/uL (150-450); RBC 3.79 m/uL (4.30-5.90); RDW 14.1 % (11.5-15.5)
[2023-02-10] MEDS ORDERED: FAMOTIDINE 20 MG/2 ML VIAL IV SCH (09:00)
[2023-02-10] MEDS ORDERED: METOPROLOL SUCCINATE (ER) 50 MG TAB.ER.24H PO SCH (09:00)
[2023-02-10] MEDS ORDERED: TACROLIMUS 0.5 MG CAP PO SCH (09:00)
[2023-02-10 09:10] LABS: Calcium 8.5 mg/dL (8.4-10.2); Potassium 3.8 mmol/L (3.5-5.1)
[2023-02-10] MEDS ORDERED: POTASSIUM CHLORIDE ER 20 MEQ TAB.ER PO STA (09:23)
[2023-02-10] MEDS ORDERED: LOSARTAN 25 MG TAB PO SCH (09:30)
[2023-02-10] MEDS ORDERED: SODIUM CHLORIDE 0.9% 1,000 ML IV SCH (11:00)
--- NOTE | 2023-02-10 11:40 | P.CRDCN ---
History of Present Illness Consult date: 02/10/23 Reason for Consult (text): Mild cardiomyopathy with PVCs History of present illness: History of present illness: This is a 77-year-old male patient previously seen by Dr. Hooper in 2017 with past medical history of hypertension, dyslipidemia, TIA, chronic kidney disease, liver transplant 2. Patient was diagnosed with a CVA in August 2022 and at that time underwent ABBY with Dr. Matos 09/16/2022 which showed no evidence of cardiac source of embolization. Patient states he came into the hospital as he was doing physical therapy for his right-sided residual weakness and after he left about 20 minutes later he started feeling foggy. Patient is being worked up by neurology for probable TIA and started on Brilinta for possible failed P lavix. Patient underwent echocardiogram which revealed EF of 45%. Patient's previous echocardiogram 08/24/2022 revealed EF of 55-60%. Patient denies having any chest pain, shortness of breath, lightheadedness or dizziness. Patient is scheduled for MRI of the brain today. EKG sinus rhythm with no acute ST changes Chest x-ray: No acute process WBC 5.0, hemoglobin 10.1, platelet count 207. Sodium 136, potassium 3.8, BUN 14 creatinine 1.4. Home cardiac medications: Aspirin 81 mg daily, Plavix 75 mg daily, Toprol-XL 50 mg daily, Pravachol 10 mg at bedtime. Echocardiogram with Doppler study 08/2022 showed normal LV systolic function with an ejection fraction of 55-60% without significant valvular abnormalities. Review Of Systems: At the time of my evaluation: Constitutional: No fever, no chills. No weakness, fatigue or lethargy. EENT: No headache. Lungs: No shortness of breath, cough, no sputum production. No wheezing. Cardiovascular: No chest pain, no lower extremity edema. No palpitations. No paroxysmal nocturnal dyspnea. No orthopnea. No lightheadedness or dizziness. No syncopal episodes. Musculoskeletal: No myalgias. Chronic right-sided weakness. Integumentary: No wounds. No rash. No unusual bruising. Neurologic: No aphasia. No facial droop. No change in mentation. No head injury. No headache. Physical examination: Gen: This is a 77-year-old black male. Patient is resting in bed appears to be in no acute distress. VS: reviewed HEENT: Head is atraumatic, normocephalic. Pupils equal, round. Sclerae is anicteric. NECK: Supple. No JVD. LUNGS: Clear to auscultation. No wheezes or rhonchi. No intercostal retractions. HEART: Regular rate and rhythm. No murmur. ABDOMEN: Soft No tenderness. EXTREMITIES: No pedal edema. No calf tenderness. Chronic right upper and lower extremity weakness. NEUROLOGICAL: Patient is awake, alert and oriented x3. Assessment: Cardiomyopathy of unclear etiology Hypertension Hyperlipidemia History of TIAs, history of CVA Plan: Continue patient's home medications. Patient was started on Brilinta versus Plavix by neurology Start patient on losartan 25 mg daily, continue beta ingrid No plan for cardiac catheterization at this time. Replace potassium Cardiology will follow on an as-needed basis. Please reconsult for any new concerns. Patient is cleared for discharge home. Thank you kindly for this consultation. Nurse practitioner note has been reviewed, I agree with documented findings and plan of care. Patient was seen and examined. 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 Past Anesthesia/Blood Transfusion Reactions: No Reported Reaction Additional Past Anesthesia/Blood Transfusion Reaction / Comment(s): Pt received blood in past without reaction. hx jaw fx- had surgery and has a plate. 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 He around the age of 83 yrs. Mother Family Medical History: Myocardial Infarction (VT) Additional Family Medical History / Comment(s): Mother of a VT at the age of 83 yrs. Medications and Allergies Home Medications Medication Instructions Recorded Confirmed Type Tamsulosin [Flomax] 0.4 mg PO HS 07/20/15 02/08/23 History dexAMETHasone ORAL [Hexadrol] 0.5 mg PO HS 07/20/15 02/08/23 History mycophenolate mofetiL [Cellcept] 1,000 mg PO BID 07/20/15 02/08/23 History Latanoprost [Xalatan 0.005%] 1 drop BOTH EYES HS 11/28/21 02/08/23 History Cholecalciferol [Vitamin D3 (125 125 mcg PO HS 08/23/22 02/08/23 History Mcg = 5000 Iu)] Aspirin 81 mg PO DAILY tab 09/21/22 02/08/23 Rx Calcium Carbonate [Tums] 1,000 mg PO QID PRN tab 09/21/22 02/08/23 Rx Clopidogrel [Plavix] 75 mg PO DAILY tab 09/21/22 02/08/23 Rx Metoprolol Succinate [Toprol XL] 50 mg PO DAILY 11/29/22 02/08/23 History Multivitamins, Thera [Multivitamin 1 tab PO DAILY 11/29/22 02/08/23 History (formulary)] Pravastatin Sodium [Pravachol] 10 mg PO HS 11/29/22 02/08/23 History Tacrolimus [Prograf] 0.5 mg PO BID 02/08/23 02/08/23 History Allergies Allergy/AdvReac Type Severity Reaction Status Date / Time No Known Allergies Allergy Verified 02/08/23 14:41 Physical Exam Vitals: Vital Signs Temp Pulse Resp BP Pulse Ox 02/10/23 07:00 98.5 F 84 18 103/52 97 02/10/23 04:00 99.9 F H 97 18 139/64 97 02/10/23 02:00 18 02/10/23 00:00 97.5 F L 80 18 130/58 96 02/09/23 20:00 97.8 F 93 18 142/52 98 02/09/23 16:00 83 16 164/70 98 02/09/23 13:40 16 02/09/23 12:00 75 16 135/61 98 02/09/23 08:00 76 16 113/53 98 Intake and Output 02/09/23 02/10/23 02/10/23 22:59 06:59 14:59 Intake Total 180 Output Total 1000 Balance 180 -1000 Intake: Oral 180 Output: Urine 1000 Results 02/10/23 08:27 02/10/23 08:27 Lipids 02/08/23 Range/Units 14:05 Triglycerides 125.00 (0.00-149.00) mg/dL Cholesterol 207.00 H (0.00-200.00) mg/dL HDL Cholesterol 50.00 (40.00-60.00) mg/dL Cholesterol/HDL Ratio 4.14 Ratio Current Medications Generic Name Dose Route Start Last Admin Trade Name Freq PRN Reason Stop Dose Admin Aspirin 81 mg 02/09/23 12:00 02/09/23 12:10 Aspirin 81 Mg PO 81 mg DAILY TAMARA Administration Atorvastatin Calcium 40 mg 02/09/23 21:00 02/09/23 21:35 Atorvastatin 40 Mg Tab PO 40 mg HS TAMARA Administration Dexamethasone 0.5 mg 02/10/23 21:00 Dexamethasone 0.5 Mg Tab PO HS TAMARA Famotidine 20 mg 02/10/23 09:00 Famotidine 20 Mg/2 Ml Vial IV Q12HR TAMARA Heparin Sodium (Porcine) 5,000 unit 02/09/23 16:00 02/10/23 01:31 Heparin Sodium,Porcine/Pf 5,000 Unit/0.5 Ml Syringe SQ 5,000 unit Q8HR TAMARA Administration Latanoprost 1 drops 02/10/23 21:00 Latanoprost 0.005% Ophth Drops 2.5 Ml Btl BOTH EYES HS TAMARA Metoprolol Succinate 50 mg 02/10/23 09:00 Metoprolol Succinate (Er) 50 Mg Tab.Er.24h PO DAILY TAMARA Mycophenolate Mofetil 1,000 mg 02/10/23 09:00 Mycophenolate Mofetil 500 Mg Tab PO BID TAMARA Tacrolimus 0.5 mg 02/10/23 09:00 Tacrolimus 0.5 Mg Cap PO BID [facility] Tamsulosin HCl 0.4 mg 02/10/23 21:00 Tamsulosin 0.4 Mg Cap.Er.24h PO HS TAMARA Ticagrelor 90 mg 02/09/23 12:00 02/09/23 21:34 Ticagrelor 90 Mg Tab PO 90 mg BID TAMARA Administration Intake and Output 02/09/23 02/10/23 02/10/23 22:59 06:59 14:59 Intake Total 180 Output Total 1000 Balance 180 -1000 Intake: Oral 180 Output: Urine 1000 02/08/23 14:05 02/08/23 14:05
[2023-02-10 11:55] VITALS: BP 118/65; PULSE 60; RESP 16; TEMP 97.9
--- NOTE | 2023-02-10 12:38 | MR ---
EXAMINATION TYPE: MR brain wo con DATE OF EXAM: 02/10/2023 11:20 AM COMPARISON: MRI brain 03/03/2017, CT brain 11/29/2022, CT Angio head neck 02/08/2023. CLINICAL INDICATION:Male, 77 years old with history of stroke. Visual disturbance b/l; Visual distur bance, stroke TECHNIQUE: Multi planar, multi sequence imaging was performed through the brain including: T1, T2, In version recovery, Diffusion weighted imaging, and gradient echo imaging. No gadolinium was given. FINDINGS: Loss of alvarado-white matter differentiation involving the posterior aspect of the left fronta l lobe. Findings are similar to prior CT from 11/29/2022 and new from 03/03/2017. There is some heteroge nous diffusion weighted signal within the area of prior infarct. The is likely related to prior prior injury and not acute injury. The ventricular system, and cisterns appear unremarkable. Scattered fo ci of high T2 signal intensity are seen within the periventricular white matter. Midline structures s how no abnormality. Diffusion-weighted imaging shows no evidence of restricted diffusion. The suscept ibility weighted images do not reveal any evidence for micro-hemorrhage. The bone marrow signal is within normal limits. Paranasal sinuses and mastoid air cells: No significant paranasal sinus disease. Visualized orbits: Bilateral aphakia IMPRESSION: 1. No evidence of intracranial mass or acute/subacute infarct. 2. Remote injury to the posterior aspect of the left frontal lobe. 3. Nonspecific white matter changes, likely secondary to small vessel ischemic disease.
--- NOTE | 2023-02-10 12:45 | P.PN ---
Subjective Progress Note Date: 02/10/23 The patient is seen at bedside and feels about the same. Denies of any further visual disturbance. Objective - Vital Signs Vital signs: Vital Signs Temp 97.9 F 02/10/23 11:40 Pulse 60 02/10/23 11:40 Resp 16 02/10/23 11:40 BP 118/65 02/10/23 11:40 Pulse Ox 100 02/10/23 11:40 FiO2 Intake & Output 02/09/23 02/10/23 02/10/23 18:59 06:59 18:59 Intake Total 360 660 Output Total 1000 550 Balance 360 -1000 110 Intake: Oral 360 660 Output: Urine 1000 550 Other: Voiding Method Urinal - Exam GENERAL: The patient is lying in bed and is not in acute distress. NEUROLOGICAL: Higher mental function: The patient is awake, alert, oriented to self, place and time. Patient is following commands. No aphasia and no neglect. Cranial nerves: The pupils are round, equal and reactive to light and accommodation. Visual hardy are full to confrontation throughout. Extraocular movement is intact no nystagmus is noted. Facial sensation is normal to touch throughout. The facial strength is normal throughout. Hearing is moderately decreased bilaterally to hand rub. Tongue is midline and moved [id number] without any difficulty. No dysarthria is noted. Motor: The strength is right upper extremity is shoulder flexion/extension is 4+, forearm extension is 4+, right hand wallpaper scraper is 4+ to 5-. Right lower is hard to assess because of cooperation but is able to lift above gravity (about 4+) and right foot has weakness more in dorsiflexion than plantarflexion and could not do resistant on right foot. Otherwise left is 5/5. Normal tone and bulk. Cerebellum: Normal finger to nose bilaterally. Sensation: Sensation is normal to touch throughout. Reflexes (right/left): 1+ Plantars are downgoing bilaterally. Some other workup during this hospital visit consisted of: Lipid panel: Triglyceride 125, cholesterol 207, LDLs 132 and HDL is 50. TSH is 2.480 Hemoglobin A1c is 5.1 ESR is 26. CRP 6.6. CT of the head, CT angiography of the head and neck was reported as no evidence of dissection of the cervical internal carotid artery or vertebral artery or any evidence of significant stenosis at the carotid bifurcation. No evidence of intracranial high-grade stenosis or intracranial aneurysm. Remote left frontal parietal region injury. No acute intracranial process. I personally reviewed that a CT and I agree the patient has an old encephalomalacia over the left frontal parietal region. The echo was reported as mildly reduced left ventricle systolic function ejection fraction 45%. Left atrium is normal in size MRI the brain is reported as no evidence of intracranial mass or acute/subacute infarct. Remote injury to the posterior aspect of the left frontal lobe. Nonspecific white matter changes, likely secondary due to small vessel ischemic disease. - Labs CBC & Chem 7: 02/10/23 08:27 02/10/23 08:27 Labs: Abnormal Lab Results - Last 24 Hours (Table) 02/08/23 02/09/23 02/09/23 Range/Units 14:05 12:13 14:14 RBC (4.30-5.90) m/uL Hgb (13.0-17.5) gm/dL Hct (39.0-53.0) % Lymphocytes # (1.0-4.8) k/uL ESR 26 H (0-15) mm/hr Sodium (137-145) mmol/L Creatinine (0.66-1.25) mg/dL C-Reactive Protein 6.6 H (<1.0) mg/dL Cholesterol 207.00 H (0.00-200.00) mg/dL LDL Cholesterol, Calc 132.0 H (0.0-131.0) mg/dL 02/10/23 02/10/23 Range/Units 08:27 08:27 RBC 3.79 L (4.30-5.90) m/uL Hgb 10.1 L (13.0-17.5) gm/dL Hct 32.6 L (39.0-53.0) % Lymphocytes # 0.9 L (1.0-4.8) k/uL ESR (0-15) mm/hr Sodium 136 L (137-145) mmol/L Creatinine 1.40 H (0.66-1.25) mg/dL C-Reactive Protein (<1.0) mg/dL Cholesterol (0.00-200.00) mg/dL LDL Cholesterol, Calc (0.0-131.0) mg/dL Assessment and Plan Assessment: This is a 77-year-old gentleman who presented that because of sudden onset the blurry vision of both eyes and on presentation his NIH was a 0. 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 We resumed home dose of ASA 81mg daily. Not Plavix since failed medication. From neurological perspective, recommend dual antiplatelets for 21 days and after that only Brilinta. Continue Lipitor 40 mg daily at bedtime for secondary stroke prophylaxis Neurochecks Cardiac monitoring PT OT and HAND BUFFER are consulted We'll defer the rest of the medical management to primary team For DVT prophylaxis On subcu heparin 5000 units every 8 hours Recommend the patient to follow-up with his neurologist in outpatient within 1-2 weeks. Also recommend the patient follow-up with an senior systems engineer for detailed eye examination. Otherwise no additional neurologic workup needed at this time. Time with Patient: Less than 30
[2023-02-10] MEDS ORDERED: TAMSULOSIN 0.4 MG CAP.ER.24H PO SCH (21:00)
[2023-02-10] MEDS ORDERED: LATANOPROST 0.005% OPHTH DROPS 2.5 ML BTL BOTH EYES SCH (21:00)
== END 2023-02-10 17:55 | disposition home or self-care (01) | DRG 69 ==
LOC: EC 12:44 → 3SCARD 16:33
PROVIDERS: ADMIT Internal Medicine; ATTEND Internal Medicine
DX: G45.9 Transient cerebral ischemic attack, unspecified (principal); I42.9 Cardiomyopathy, unspecified; Z94.4 Liver transplant status; I69.351 Hemiplegia and hemiparesis following cerebral infarction affecting right dominant side; E03.9 Hypothyroidism, unspecified; E78.5 Hyperlipidemia, unspecified; H54.61 Unqualified visual loss, right eye, normal vision left eye; M19.90 Unspecified osteoarthritis, unspecified site; N40.0 Benign prostatic hyperplasia without lower urinary tract symptoms; I65.29 Occlusion and stenosis of unspecified carotid artery; K21.9 Gastro-esophageal reflux disease without esophagitis; I12.9 Hypertensive chronic kidney disease with stage 1 through stage 4 chronic kidney disease, or unspecified chronic kidney disease; I49.3 Ventricular premature depolarization; Z86.14 Personal history of Methicillin resistant Staphylococcus aureus infection; I08.1 Rheumatic disorders of both mitral and tricuspid valves; N18.9 Chronic kidney disease, unspecified; Z79.02 Long term (current) use of antithrombotics/antiplatelets; Z79.82 Long term (current) use of aspirin; Z79.899 Other long term (current) drug therapy; Z82.49 Family history of ischemic heart disease and other diseases of the circulatory system; Z79.624 Long term (current) use of inhibitors of nucleotide synthesis; Z98.42 Cataract extraction status, left eye; Z98.41 Cataract extraction status, right eye
CPT/HCPCS: 36415; 70496; 70498; 70551; 71046; 80048; 80053; 80061; 82550; 83036; 84443; 84484; 85025; 85610; 85652; 85730; 86140; 93005; 93306; 96360; 99285

== ENCOUNTER 2023-02-22 10:33 | Emergency (ER) | payer MEDICARE, BC ==
--- NOTE | 2023-02-22 12:27 | ED ---
General Adult HPI - General Chief complaint: Nausea/Vomiting/Diarrhea Stated complaint: Diarrhea Time Seen by Provider: 02/22/23 11:44 Source: patient, family, RN notes reviewed Mode of arrival: wheelchair Limitations: no limitations - History of Present Illness Initial comments: 77-year-old male presents to the emergency department with chief complaint of diarrhea. Patient states that he was discharged from the hospital a week and a half ago and at discharge he had diarrhea but it had resolved. For the past 5 days he has been experiencing diarrhea again. He states that the diarrhea is watery and brown. He has had 3 episodes since he's been here so far. Denies fever, abdominal pain, cough, shortness of breath. Denies urinary frequency, dysuria. - Related Data Home Medications Medication Instructions Recorded Confirmed Tamsulosin [Flomax] 0.4 mg PO HS 07/20/15 02/08/23 dexAMETHasone ORAL [Hexadrol] 0.5 mg PO HS 07/20/15 02/08/23 mycophenolate mofetiL [Cellcept] 1,000 mg PO BID 07/20/15 02/08/23 Latanoprost [Xalatan 0.005%] 1 drop BOTH EYES HS 11/28/21 02/08/23 Cholecalciferol [Vitamin D3 (125 125 mcg PO HS 08/23/22 02/08/23 Mcg = 5000 Iu)] Metoprolol Succinate [Toprol XL] 50 mg PO DAILY 11/29/22 02/08/23 Multivitamins, Thera [Multivitamin 1 tab PO DAILY 11/29/22 02/08/23 (formulary)] Tacrolimus [Prograf] 0.5 mg PO BID 02/08/23 02/08/23 Previous Rx's Medication Instructions Recorded Calcium Carbonate [Tums] 1,000 mg PO QID PRN tab 09/21/22 Aspirin 81 mg PO DAILY #0 tab 02/10/23 Atorvastatin [Lipitor] 40 mg PO HS #30 tab 02/10/23 Losartan [Cozaar] 25 mg PO DAILY 30 Days #30 tab 02/10/23 Ticagrelor [Brilinta] 90 mg PO BID 30 Days #60 tab 02/10/23 Allergies Allergy/AdvReac Type Severity Reaction Status Date / Time No Known Allergies Allergy Verified 02/22/23 11:37 Review of Systems ROS Statement: Those systems with pertinent positive or pertinent negative responses have been documented in the HPI. ROS Other: All systems not noted in ROS Statement are negative. 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 Past Anesthesia/Blood Transfusion Reactions: No Reported Reaction Additional Past Anesthesia/Blood Transfusion Reaction / Comment(s): Pt received blood in past without reaction. hx jaw fx- had surgery and has a plate. a little confusion when first waking up Past Psychological History: No Psychological Hx Reported Smoking Status: Never smoker Past Alcohol Use History: None Reported Past Drug Use History: None Reported - Past Family History Father Family Medical History: Cancer Additional Family Medical History / Comment(s): Father was healthy. He around the age of 83 yrs. Mother Family Medical History: Myocardial Infarction (ID) Additional Family Medical History / Comment(s): Mother of a ID at the age of 83 yrs. General Exam Limitations: no limitations General appearance: alert, in no apparent distress Head exam: Present: atraumatic, normocephalic, normal inspection Eye exam: Present: normal appearance. Absent: scleral icterus, conjunctival injection, periorbital swelling ENT exam: Present: normal exam, mucous membranes moist Neck exam: Present: normal inspection. Absent: tenderness, meningismus, lymphadenopathy Respiratory exam: Present: normal lung sounds bilaterally. Absent: respiratory distress, wheezes, rales, rhonchi, stridor Cardiovascular Exam: Present: regular rate, normal rhythm, normal heart sounds. Absent: systolic murmur, diastolic murmur, rubs, gallop, clicks GI/Abdominal exam: Present: soft, normal bowel sounds. Absent: distended, tenderness, guarding, rebound, rigid Neurological exam: Present: alert, oriented X3 Psychiatric exam: Present: normal affect, normal mood Skin exam: Present: warm, dry, intact, normal color. Absent: rash Course Vital Signs 02/22/23 02/22/23 11:35 16:35 Temperature 98.7 F 98.2 F Pulse Rate 73 70 Respiratory 20 18 Rate Blood Pressure 130/69 126/60 O2 Sat by Pulse 100 99 Oximetry Medical Decision Making - Medical Decision Making Was pt. sent in by a medical professional or institution (, ADELINE, OVERSIZE LOAD PILOT ESCORT, urgent care, hospital, or skilled nursing...) When possible be specific @ -No Did you speak to anyone other than the patient for history (EMS, parent, family, police, friend...)? What history was obtained from this source @ -No Did you review nursing and triage notes (agree or disagree)? Why? @ -I reviewed and agree with nursing and triage notes Were old charts reviewed (outside hosp., previous admission, EMS record, old EKG, old radiological studies, urgent care reports/EKG's, skilled nursing records)? Report findings @ -No old charts were reviewed Differential Diagnosis (chest pain, altered mental status, abdominal pain women, abdominal pain men, vaginal bleeding, weakness, fever, dyspnea, syncope, headache, dizziness, GI bleed, back pain, seizure, CVA, palpatations, mental health, musculoskeletal)? @ - EKG interpreted by me (3pts min.). @ -None X-rays interpreted by me (1pt min.). @ -None done CT interpreted by me (1pt min.). @ -None done U/S interpreted by me (1pt. min.). @ -None done What testing was considered but not performed or refused? (CT, X-rays, U/S, labs)? Why? @ -None What meds were considered but not given or refused? Why? @ -None Did you discuss the management of the patient with other professionals (professionals i.e. ADELINE Jose, OVERSIZE LOAD PILOT ESCORT, lab, RT, psych nurse, social work case manager, fence maker, t eacher, air control/anti air warfare officer, heel caser)? Give summary @ -No Was smoking cessation discussed for >3mins.? @ -No Was critical care preformed (if so, how long)? @ -No Were there social determinants of health that impacted care today? How? (Homelessness, low income, unemployed, alcoholism, drug addiction, transportation, low edu. Level, literacy, decrease access to med. care, long-term, rehab)? @ -No Was there de-escalation of care discussed even if they declined (Discuss DNR or withdrawal of care, Hospice)? DNR status @ -No What co-morbidities impacted this encounter? (DM, HTN, Smoking, COPD, CAD, Cancer, CVA, ARF, Chemo, Hep., AIDS, mental health diagnosis, sleep apnea, morbid obesity)? @ -None Was patient admitted / discharged? Hospital course, mention meds given and ro [place], prescriptions, significant lab abnormalities, going to OR and other pertinent info. @ -Discharged. Patient presented to the emergency department with diarrhea 5 days. He states that he is having liquidy stools 5 days. CBC and CMP were obtainedCBC showed WBC 6.8, hgb 11.9, hct 38.2 CMP showed sodium 138, potassium 4.1, creatinine 1.32 his lab results are comparable to when he was discharged 10 days ago Stool sent for culture and C. diff study which we will call him with results. Patient was given Imodium for diarrhea. Recommended [id number] Imodium or Pepto-Bismol for diarrhea. Patient discharged in stable condition. Case discussed with my attending Dr. Jefferson Undiagnosed new problem with uncertain prognosis? @ -No Drug Therapy requiring intensive monitoring for toxicity (Heparin, Nitro, In sulin, Cardizem)? @ -No Were any procedures done? @ -No Diagnosis/symptom? @ -Diarrhea Acute, or Chronic, or Acute on Chronic? @ -Acute Uncomplicated (without systemic symptoms) or Complicated (systemic symptoms)? @ -Uncomplicated Side effects of treatment? @ -No Exacerbation, Progression, or Severe Exacerbation? @ -No Poses a threat to life or bodily function? How? (Chest pain, USA, ID, pneumonia, PE, COPD, DKA, ARF, appy, cholecystitis, CVA, Diverticulitis, Homicidal, Suicidal, threat to staff... and all critical care pts) @ -No - Lab Data Result diagrams: 02/22/23 14:00 02/22/23 12:42 Lab Results 02/22/23 02/22/23 02/22/23 Range/Units 12:42 14:00 14:55 WBC 6.8 (3.8-10.6) k/uL RBC 4.48 (4.30-5.90) m/uL Hgb 11.9 L (13.0-17.5) gm/dL Hct 38.2 L (39.0-53.0) % MCV 85.3 (80.0-100.0) fL MCH 26.5 (25.0-35.0) pg MCHC 31.0 (31.0-37.0) g/dL RDW 13.8 (11.5-15.5) % Plt Count 300 (150-450) k/uL MPV 7.0 Neutrophils % 68 % Lymphocytes % 22 % Monocytes % 4 % Eosinophils % 4 % Basophils % 0 % Neutrophils # 4.6 (1.3-7.7) k/uL Lymphocytes # 1.5 (1.0-4.8) k/uL Monocytes # 0.3 (0-1.0) k/uL Eosinophils # 0.3 (0-0.7) k/uL Basophils # 0.0 (0-0.2) k/uL Hypochromasia Slight Sodium 138 (137-145) mmol/L Potassium 4.1 (3.5-5.1) mmol/L Chloride 107 (98-107) mmol/L Carbon Dioxide 20 L (22-30) mmol/L Anion Gap 11 mmol/L BUN 19 (9-20) mg/dL Creatinine 1.32 H (0.66-1.25) mg/dL Est GFR (CKD-EPI)AfAm 60 (>60 ml/min/1.73 sqM) Est GFR (CKD-EPI)NonAf 52 (>60 ml/min/1.73 sqM) Glucose 66 L (74-99) mg/dL Calcium 8.9 (8.4-10.2) mg/dL Total Bilirubin 0.4 (0.2-1.3) mg/dL AST 20 (17-59) U/L ALT 14 (4-49) U/L Alkaline Phosphatase 56 (38-126) U/L Total Protein 7.1 (6.3-8.2) g/dL Albumin 4.0 (3.5-5.0) g/dL Lipase 153 (23-300) U/L Urine Color Light Yellow Urine Appearance Cloudy (Clear) Urine pH 5.0 (5.0-8.0) Ur Specific [place] 1.011 (1.001-1.035) Urine Protein Trace H (Negative) Urine Glucose (UA) Negative (Negative) Urine Ketones Negative (Negative) Urine Blood Trace H (Negative) Urine Nitrite Negative (Negative) Urine Bilirubin Negative (Negative) Urine Urobilinogen <2.0 (<2.0) mg/dL Ur Leukocyte Esterase Large H (Negative) Urine RBC 3 (0-5) /hpf Urine WBC 163 H (0-5) /hpf Urine WBC Clumps Few H (None) /hpf Ur Squamous Epith Cells <1 (0-4) /hpf Urine Bacteria Many H (None) /hpf Urine Mucus Rare H (None) /hpf C. difficile (EIA) Intrp (Negative) 02/22/23 Range/Units 15:14 WBC (3.8-10.6) k/uL RBC (4.30-5.90) m/uL Hgb (13.0-17.5) gm/dL Hct (39.0-53.0) % MCV (80.0-100.0) fL MCH (25.0-35.0) pg MCHC (31.0-37.0) g/dL RDW (11.5-15.5) % Plt Count (150-450) k/uL MPV Neutrophils % % Lymphocytes % % Monocytes % % Eosinophils % % Basophils % % Neutrophils # (1.3-7.7) k/uL Lymphocytes # (1.0-4.8) k/uL Monocytes # (0-1.0) k/uL Eosinophils # (0-0.7) k/uL Basophils # (0-0.2) k/uL Hypochromasia Sodium (137-145) mmol/L Potassium (3.5-5.1) mmol/L Chloride (98-107) mmol/L Carbon Dioxide (22-30) mmol/L Anion Gap mmol/L BUN (9-20) mg/dL Creatinine (0.66-1.25) mg/dL Est GFR (CKD-EPI)AfAm (>60 ml/min/1.73 sqM) Est GFR (CKD-EPI)NonAf (>60 ml/min/1.73 sqM) Glucose (74-99) mg/dL Calcium (8.4-10.2) mg/dL Total Bilirubin (0.2-1.3) mg/dL AST (17-59) U/L ALT (4-49) U/L Alkaline Phosphatase (38-126) U/L Total Protein (6.3-8.2) g/dL Albumin (3.5-5.0) g/dL Lipase (23-300) U/L Urine Color Urine Appearance (Clear) Urine pH (5.0-8.0) Ur Specific [place] (1.001-1.035) Urine Protein (Negative) Urine Glucose (UA) (Negative) Urine Ketones (Negative) Urine Blood (Negative) Urine Nitrite (Negative) Urine Bilirubin (Negative) Urine Urobilinogen (<2.0) mg/dL Ur Leukocyte Esterase (Negative) Urine RBC (0-5) /hpf Urine WBC (0-5) /hpf Urine WBC Clumps (None) /hpf Ur Squamous Epith Cells (0-4) /hpf Urine Bacteria (None) /hpf Urine Mucus (None) /hpf C. difficile (EIA) Intrp Negative (Negative) Disposition Clinical Impression: Diarrhea Disposition: HOME SELF-CARE Condition: Stable Instructions (If sedation given, give patient instructions): Acute Diarrhea (ED) Additional Instructions: Recommend taking pepto-bismol or imodium over the counter for diarrhea. Please return to the Emergency Department if symptoms worsen or any other concerns. Follow-up with your primary care provider Is patient prescribed a controlled substance at d/c from ED?: No Referrals: Ron Edwards DO [Primary Care Provider] - 1-2 days Time of Disposition: 15:53
[2023-02-22 13:03] LABS: Calcium 8.9 mg/dL (8.4-10.2); Potassium 4.1 mmol/L (3.5-5.1); Total Bilirubin 0.4 mg/dL (0.2-1.3); Total Protein 7.1 g/dL (6.3-8.2)
[2023-02-22 14:18] LABS: Basophils % (A) 0 %; Eosinophils # (A) 0.3 k/uL (0-0.7); Eosinophils % (A) 4 %; HCT 38.2 % (39.0-53.0); HGB 11.9 gm/dL (13.0-17.5); Hypochromasia Slight; Lymphocytes # (A) 1.5 k/uL (1.0-4.8); Lymphocytes % (A) 22 %; MCH 26.5 pg (25.0-35.0); MCV 85.3 fL (80.0-100.0); Monocytes # (A) 0.3 k/uL (0-1.0); Monocytes % (A) 4 %; Neutrophils # (A) 4.6 k/uL (1.3-7.7); Neutrophils % (A) 68 %; Platelet Count 300 k/uL (150-450); RBC 4.48 m/uL (4.30-5.90); RDW 13.8 % (11.5-15.5); WBC 6.8 k/uL (3.8-10.6)
[2023-02-22 15:30] LABS: Appearance,Urine Cloudy (Clear); Bacteria,Urine Many /hpf; Bilirubin,Urine Negative (Negative); Blood,Urine Trace (Negative); Color,Urine Light Yellow; Glucose,Urine (UA) Negative (Negative); Ketones,Urine Negative (Negative); Leukocyte Esterase,Urine Large (Negative); Mucus,Urine Rare /hpf; Nitrite,Urine Negative (Negative); Protein,Urine Trace (Negative); RBC,Urine 3 /hpf (0-5); Specific Gravity,Urine 1.011 (1.001-1.035); Squamous Epithelial Cell,Urine <1 /hpf (0-4); Urobilinogen,Urine <2.0 mg/dL (<2.0); WBC,Urine 163 /hpf (0-5)
[2023-02-22] MEDS ORDERED: LOPERAMIDE 2 MG CAP PO STA (15:41)
[2023-02-22 16:38] VITALS: BP 126/60; PULSE 70; RESP 18; TEMP 98.2
== END 2023-02-22 16:35 | disposition home or self-care (01) ==
LOC: EC 10:33
DX: R19.7 Diarrhea, unspecified (principal); I10 Essential (primary) hypertension; M19.90 Unspecified osteoarthritis, unspecified site; Z86.73 Personal history of transient ischemic attack (TIA), and cerebral infarction without residual deficits; Z79.1 Long term (current) use of non-steroidal anti-inflammatories (NSAID); Z79.899 Other long term (current) drug therapy
CPT/HCPCS: 36415; 80053; 81001; 83690; 85025; 87045; 87046; 87324; 99284

== ENCOUNTER → 2023-05-08 | Outpatient (CLI) | payer MEDICARE, BC ==
[2023-05-08 13:07] LABS: Appearance,Urine Cloudy (Clear); Bacteria,Urine Moderate /hpf; Bilirubin,Urine Negative (Negative); Blood,Urine Trace (Negative); Color,Urine Colorless; Glucose,Urine (UA) Negative (Negative); Ketones,Urine Negative (Negative); Leukocyte Esterase,Urine Large (Negative); Nitrite,Urine Negative (Negative); Protein,Urine Negative (Negative); RBC,Urine 3 /hpf (0-5); Specific Gravity,Urine 1.005 (1.001-1.035); Squamous Epithelial Cell,Urine <1 /hpf (0-4); Urobilinogen,Urine <2.0 mg/dL (<2.0); WBC,Urine 103 /hpf (0-5)
[2023-05-08 13:17] LABS: Creatinine,Urine Random 35.3 mg/dL; Protein/Creatinine Ratio,Urine 0.652
[2023-05-08 16:31] LABS: % Iron Saturation 39.51 (15.00-50.00); Albumin 4.4 d/dL (3.8-4.9); BUN/Creat Ratio 12.08 Ratio (12.00-20.00); Blood Urea Nitrogen 15.7 mg/dL (9.0-27.0); Calcium 9.6 mg/dL (8.7-10.3); Carbon Dioxide 25.3 mmol/L (21.6-31.8); Chloride 103 mmol/L (96-109); Glucose 82 mg/dL (70-110); Iron 130 UG/DL (65-175); Magnesium 1.7 mg/dL (1.5-2.4); Phosphorus 3.1 mg/dL (2.4-5.1); Potassium 4.7 mmol/L (3.5-5.5); Sodium 139 mmol/L (135-145); Total Iron Binding Capacity 329 UG/DL (228-460); Uric Acid 6.4 mg/dL (3.7-8.7)
[2023-05-08 16:47] LABS: Basophils # (A) 0.01 X 10*3/uL (0.00-0.10); Basophils % (A) 0.1 %; Eosinophils # (A) 0.18 X 10*3/uL (0.04-0.35); Eosinophils % (A) 2.3 %; HCT 40.7 % (39.6-50.0); Lymphocytes # (A) 1.06 X 10*3/uL (0.90-5.00); Lymphocytes % (A) 13.7 %; MCH 25.9 pg (27.0-32.0); MCHC 29.5 d/dL (32.0-37.0); MCV 87.7 FL (80.0-97.0); Mean Platelet Volume 10.1 FL (9.5-12.2); Monocytes # (A) 0.57 X 10*3/uL (0.20-1.00); Monocytes % (A) 7.4 %; NRBC Per 100 WBC 0 X 10*3/uL (0.00-0.01); Neutrophils # (A) 5.89 X 10*3/uL (1.80-7.70); Neutrophils % (A) 76.1 %; Platelet Count 242 X 10*3/uL (140-440); RBC 4.64 X 10*6/uL (4.40-5.60); RDW 14.1 % (11.5-14.5); WBC 7.74 X 10*3/uL (4.50-10.00)
== END | disposition home or self-care (01) ==
LOC: LABWHC1 10:10
PROVIDERS: ATTEND Nurse Practitioner Family
DX: N17.9 Acute kidney failure, unspecified (principal); E55.9 Vitamin D deficiency, unspecified; E21.3 Hyperparathyroidism, unspecified; M10.9 Gout, unspecified; N39.0 Urinary tract infection, site not specified; D64.9 Anemia, unspecified
CPT/HCPCS: 36415; 80048; 81001; 82040; 82306; 82570; 82728; 83540; 83550; 83735; 83970; 84100; 84156; 84550; 85025

== ENCOUNTER → 2023-05-16 | Outpatient (CLI) | payer MEDICARE, BC ==
[2023-05-16 15:29] LABS: ALT 10 U/L (10-49); AST 16 U/L (14-35); Albumin 4.1 d/dL (3.8-4.9); Albumin/Globulin Ratio 1.78 Ratio (1.60-3.17); Alkaline Phosphatase 74 U/L (41-126); BUN/Creat Ratio 10.71 Ratio (12.00-20.00); Bilirubin, Conjugated <0.20 mg/dL (0.20-0.40); Bilirubin,Unconjugated >0.30 mg/dL (0.20-1.00); Calcium 9.6 mg/dL (8.7-10.3); Carbon Dioxide 25.9 mmol/L (21.6-31.8); Chloride 106 mmol/L (96-109); Globulin 2.3 d/dL (1.6-3.3); Glucose 88 mg/dL (70-110); Potassium 4.7 mmol/L (3.5-5.5); Sodium 140 mmol/L (135-145); Total Bilirubin 0.5 mg/dL (0.3-1.2); Total Protein 6.4 d/dL (6.2-8.2)
[2023-05-16 16:21] LABS: Basophils # (A) 0.01 X 10*3/uL (0.00-0.10); Basophils % (A) 0.2 %; Eosinophils # (A) 0.09 X 10*3/uL (0.04-0.35); Eosinophils % (A) 1.5 %; HCT 39.1 % (39.6-50.0); HGB 11.9 d/dL (12.0-15.0); Lymphocytes # (A) 1.34 X 10*3/uL (0.90-5.00); Lymphocytes % (A) 21.8 %; MCH 26.6 pg (27.0-32.0); MCHC 30.4 d/dL (32.0-37.0); MCV 87.5 FL (80.0-97.0); Monocytes % (A) 8.1 %; NRBC Per 100 WBC 0 X 10*3/uL (0.00-0.01); Neutrophils # (A) 4.19 X 10*3/uL (1.80-7.70); Neutrophils % (A) 68.1 %; Platelet Count 237 X 10*3/uL (140-440); RBC 4.47 X 10*6/uL (4.40-5.60); RDW 14.1 % (11.5-14.5); WBC 6.15 X 10*3/uL (4.50-10.00)
== END | disposition home or self-care (01) ==
LOC: LABWHC1 10:08
PROVIDERS: ATTEND Internal Medicine
DX: D84.9 Immunodeficiency, unspecified (principal); Z94.4 Liver transplant status
CPT/HCPCS: 36415; 80048; 80076; 85025

== ENCOUNTER → 2023-05-16 | Outpatient (CLI) | payer MEDICARE, BC | END | disposition home or self-care (01) | LOC: LABPAT 10:04 | PROVIDERS: ATTEND Internal Medicine Interventional Cardiology | DX: Z53.9 Procedure and treatment not carried out, unspecified reason (principal) ==

== ENCOUNTER 2023-05-22 06:40 | Day surgery (SDC) | payer MEDICARE, BC ==
[~2023-05-22 06:40] MED LIST: ALPRAZolam 0.25 MG TAB PO PRN; ALPRAZolam 0.5 MG TAB PO PRN; HEPARIN SODIUM,PORCINE 10,000 UNIT in SODIUM CHLORIDE 0.9% 1,000 ML IRRIGATION PRN; HEPARIN SODIUM,PORCINE 2,500 UNIT in SODIUM CHLORIDE 0.9% 250 ML IRRIGATION PRN; NITROGLYCERIN SL TABS 0.4 MG TAB SUBLINGUAL PRN; SODIUM CHLORIDE 0.9% 1,000 ML in EMPTY BAG 1 BAG IV ONE
[2023-05-22] MEDS ORDERED: SODIUM CHLORIDE 0.9% 1,000 ML IV ONE (06:56)
[2023-05-22] MEDS ORDERED: ATORVASTATIN 80 MG TAB PO ONE (07:00)
[2023-05-22] MEDS ORDERED: ASPIRIN 325 MG TAB PO ONE (07:00)
[2023-05-22 07:16] VITALS: RESP 16; TEMP 98.2
[2023-05-22] MEDS ORDERED: fentaNYL (PF) 50 MCG/ML 2 ML AMP ONE (08:22)
[2023-05-22] MEDS ORDERED: fentaNYL (PF) 50 MCG/1 ML VIAL IVP ONE (08:27)
[2023-05-22] MEDS ORDERED: LIDOCAINE 1% INJ 10MG/ML (30 ML VIAL-PF) SQ ONE (08:28)
[2023-05-22] MEDS ORDERED: HEPARIN SODIUM 1,000 UN/ML (10ML VL) ONE (08:31)
[2023-05-22] MEDS ORDERED: HEPARIN SODIUM 1,000 UN/ML (10ML VL) IV ONE (08:33)
[2023-05-22] MEDS ORDERED: VERAPAMIL SYRINGE (5 MG/10 ML) INTRAARTER ONE (08:34)
[2023-05-22] MEDS ORDERED: IOPAMIDOL-370 100ML BTL INJ ONE (08:38)
[2023-05-22] MEDS ORDERED: RX INFO: IV CONTRAST WAS GIVEN 1 EACH MISC MISCELLANE PRN (08:51)
--- NOTE | 2023-05-22 08:56 | P.CARDCATH ---
Date of Procedure: 05/22/23 Description of Procedure: Cardiac Catheterization: The patient is a 77-year-old male with a history of hypertension, hyperlipidemia who recently had an abnormal MPI and an abnormal EKG. Recommendations were made regarding cardiac catheterization, the risks and the complications were discussed with the patient who is in full understanding and agreement. Procedure Description: Patient was brought to label stamper in fasting semi-sedated state after receiving Fentanyl and Benadryl achieiving moderate conscious sedated state. Using Xylocaine Anesthesia and Seldinger technique, a 6-[place] sheath was introduced in the right radial artery . Subsequently, selective coronary angiography was performed using a 5-[place] 3.5 bend Jen catheter. Multiple views of the coronary artery including hemiaxial views were obtained. The right Jen catheter was used to cross the aortic valve and LVEDP was calculated. Following that, catheter and sheath were removed. Hemostasis was obtained with deployment of TR band . There was no immediate complication. Patient was returned to room in stable condition. Of note, the patient received a total of 4500 units of intravenous heparin as well as intra-arterial verapamil. Findings: Left main: This is a large size vessel, bifurcating into LAD and left circumflex, left main has no obstructive disease LAD: This is a large size vessel, reaching to the apex giving rise to 2 diagonal branch, the LAD and its branches have no obstructive disease Left circumflex: This is a large nondominant vessel giving rise to a large obtuse marginal branch distally, the left circumflex and its branches have no obstructive disease RCA: This is a dominant vessel giving rise to a PDA and PLV, the RCA and its branches had no obstructive disease Left Ventriculogram: Not performed Hemodynamics: There was no gradient across the aortic valve , LVEDP was 20-24 mmHg Conclusion: 1. Normal coronary arteries 2. Right dominance 3. Mildly elevated LVEDP Recommendations: The patient will continue present therapy with continuing aggressive coronary risk modifications. The findings and the recommendations were discussed with the patient and the family and they were in full understanding and agreement. Duration of sedation is 12 minutes.
[2023-05-22] MEDS ORDERED: SODIUM CHLORIDE 0.9% 1,000 ML IV SCH (09:00)
[2023-05-22 11:03] VITALS: BP 122/69; PULSE 66
[2023-05-22] MEDS ORDERED: CHOLECALCIFEROL 125 MCG (5000 IU) TABLET PO SCH (21:00)
[2023-05-22] MEDS ORDERED: TACROLIMUS 0.5 MG CAP PO SCH (21:00)
[2023-05-22] MEDS ORDERED: ATORVASTATIN 40 MG TAB PO SCH (21:00)
[2023-05-22] MEDS ORDERED: TAMSULOSIN 0.4 MG CAP.ER.24H PO SCH (21:00)
[2023-05-23] MEDS ORDERED: ASPIRIN 81 MG PO SCH (09:00)
[2023-05-23] MEDS ORDERED: MULTIVITAMINS, THERA 1 EACH TAB PO SCH (09:00)
[2023-05-23] MEDS ORDERED: CLOPIDOGREL 75 MG TAB PO SCH (09:00)
[2023-05-23] MEDS ORDERED: METOPROLOL SUCCINATE (ER) 50 MG TAB.ER.24H PO SCH (09:00)
== END 2023-05-22 12:32 | disposition home or self-care (01) ==
LOC: CATHCVL 06:40
PROVIDERS: ATTEND Internal Medicine Interventional Cardiology
DX: I25.10 Atherosclerotic heart disease of native coronary artery without angina pectoris (principal); I10 Essential (primary) hypertension; E78.5 Hyperlipidemia, unspecified; Z79.82 Long term (current) use of aspirin; Z79.899 Other long term (current) drug therapy
CPT/HCPCS: 93458; C1769 ×2; C1894; J2001; J1644; Q9967; J3010

== ENCOUNTER 2023-07-18 19:31 | Emergency (ER) | payer MEDICARE, BC ==
[2023-07-18] MEDS ORDERED: DIPH,PERTUS(ACELL)TETVAC-LF 0.5 ML VIAL IM ONE (20:34)
[2023-07-18] MEDS ORDERED: LIDOCAINE 1% INJ 10MG/ML (20 ML MDV) SQ ONE (20:34)
--- NOTE | 2023-07-18 20:35 | ED ---
General Adult HPI - General Chief complaint: Wound/Laceration Stated complaint: laceration on leg Time Seen by Provider: 07/18/23 20:13 Source: patient, RN notes reviewed Mode of arrival: ambulatory Limitations: no limitations - History of Present Illness Initial comments: 77-year-old male presents emergency department chief complaint of right leg pain and skin tear that occurred after he stepped off of his tractor. He scrapped the anterior aspect of his left leg. He notes that he is able to ambulate per usual. He is unsure of the date of his last tetanus vaccination. - Related Data Home Medications Medication Instructions Recorded Confirmed Tamsulosin [Flomax] 0.4 mg PO HS 07/20/15 05/22/23 dexAMETHasone ORAL [Hexadrol] 0.5 mg PO DAILY 07/20/15 05/17/23 Cholecalciferol [Vitamin D3 (125 125 mcg PO HS 08/23/22 05/22/23 Mcg = 5000 Iu)] Metoprolol Succinate [Toprol XL] 50 mg PO DAILY 11/29/22 05/17/23 Multivitamins, Thera [Multivitamin 1 tab PO DAILY 11/29/22 05/17/23 (formulary)] Tacrolimus [Prograf] 0.5 mg PO BID 02/08/23 05/17/23 Clopidogrel [Plavix] 75 mg PO DAILY 05/17/23 05/17/23 Previous Rx's Medication Instructions Recorded Aspirin 81 mg PO DAILY #0 tab 02/10/23 Atorvastatin [Lipitor] 40 mg PO HS #30 tab 02/10/23 Allergies Allergy/AdvReac Type Severity Reaction Status Date / Time No Known Allergies Allergy Verified 07/18/23 19:53 Review of Systems ROS Statement: Those systems with pertinent positive or pertinent negative responses have been documented in the HPI. ROS Other: All systems not noted in ROS Statement are negative. 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 Past Anesthesia/Blood Transfusion Reactions: No Reported Reaction Additional Past Anesthesia/Blood Transfusion Reaction / Comment(s): Pt received blood in past without reaction. hx jaw fx- had surgery and has a plate. a little confusion when first waking up Past Psychological History: No Psychological Hx Reported Smoking Status: Never smoker Past Alcohol Use History: None Reported Past Drug Use History: None Reported - Past Family History Father Family Medical History: Cancer Additional Family Medical History / Comment(s): Father was healthy. He around the age of 83 yrs. Mother Family Medical History: Myocardial Infarction (UT) Additional Family Medical History / Comment(s): Mother of a UT at the age o f 83 yrs. General Exam Limitations: no limitations General appearance: alert, in no apparent distress Head exam: Present: atraumatic, normocephalic, normal inspection Eye exam: Present: normal appearance ENT exam: Present: normal exam Neck exam: Present: normal inspection Respiratory exam: Present: normal lung sounds bilaterally. Absent: respiratory distress, wheezes, rales, rhonchi, stridor Cardiovascular Exam: Present: regular rate, normal rhythm, normal heart sounds. Absent: systolic murmur, diastolic murmur, rubs, gallop, clicks Extremities exam: Present: full ROM, normal capillary refill, other (DP and PT pulses 2+, multiple skin tears to his left leg) Course Vital Signs 07/18/23 07/18/23 19:52 22:53 Temperature 97.8 F 97.4 F L Pulse Rate 51 L 55 L Respiratory 18 17 Rate Blood Pressure 135/63 130/78 O2 Sat by Pulse 97 98 Oximetry Procedures - Laceration Laceration #1 Consent Obtained: verbal consent Indication: laceration Site: lower extremity Description: flap Depth: simple, single layer Anesthetic Used: lidocaine 1% Anesthesia Technique: local infiltration Pre-repair: wound explored, irrigated extensively Size of Sutures: 4-0, 5-0 Technique: simple, interrupted Patient Tolerated Procedure: well, no complications Medical Decision Making - Medical Decision Making Was pt. sent in by a medical professional or institution (, ADELINE, TEST LEAD APPLICATION TESTING, urgent care, hospital, or care home...) When possible be specific @ -No Did you speak to anyone other than the patient for history (EMS, parent, family, police, friend...)? What history was obtained from this source @ -No Did you review nursing and triage notes (agree or disagree)? Why? @ -I reviewed and agree with nursing and triage notes Were old charts reviewed (outside hosp., previous admission, EMS record, old EKG, old radiological studies, urgent care reports/EKG's, care home records)? Report findings @ -No old charts were reviewed Differential Diagnosis (chest pain, altered mental status, abdominal pain women, abdominal pain men, vaginal bleeding, weakness, fever, dyspnea, syncope, headache, dizziness, GI bleed, back pain, seizure, CVA, palpatations, mental health, musculoskeletal)? @ -nDifferential Musculoskeletal Muscular strain, contusion, ligament sprain, fracture, arthritis, septic arthritis, bursitis, cellulitis, muscle spasm, nerve compression, DVT, arterial occlusion, herpes zoster, electrolyte abnormality, tumor.... This is not meant to be in all inclusive list EKG interpreted by me (3pts min.). @ -None X-rays interpreted by me (1pt min.). @ -X-ray left leg shows no obvious radiopaque foreign bodies CT interpreted by me (1pt min.). @ -None done U/S interpreted by me (1pt. min.). @ -None done What testing was considered but not performed or refused? (CT, X-rays, U/S, labs)? Why? @ -None What meds were considered but not given or refused? Why? @ -None Did you discuss the management of the patient with other professionals (professionals i.e. , ADELINE, TEST LEAD APPLICATION TESTING, lab, RT, psych nurse, social services director, route specialist, teacher, privacy officer, telephonic nurse case manager)? Give summary @ -No Was smoking cessation discussed for >3mins.? @ -No Was critical care preformed (if so, how long)? @ -No Were there social determinants of health that impacted care today? How? (Homelessness, low income, unemployed, alcoholism, drug addiction, transportation, low edu. Level, literacy, decrease access to med. care, retirement, rehab)? @ -No Was there de-escalation of care discussed even if they declined (Discuss DNR or withdrawal of care, Hospice)? DNR status @ -No What co-morbidities impacted this encounter? (DM, HTN, Smoking, COPD, CAD, Cancer, CVA, ARF, Chemo, Hep., AIDS, mental health diagnosis, sleep apnea, morbid obesity)? @ -None Was patient admitted / discharged? Hospital course, mention meds given and route, prescriptions, significant lab abnormalities, going to OR and other pertinent info. @ -Discharged Patient presented to emergency department with chief complaint of left leg skin tears and lacerations from a tractor. X-ray obtained which shows no evidence of acute fracture or radiopaque foreign bodies. Laceration repair was performed and wounds were dressed. Assessment and plan suture removal. Patient stable at time of discharge. He is discussed with Dr. Oliver Undiagnosed new problem with uncertain prognosis? @ -No Drug Therapy requiring intensive monitoring for toxicity (Heparin, Nitro, Insulin, Cardizem)? @ -No Were any procedures done? @ -laceration repair Diagnosis/symptom? @ -laceration, skin tear] Acute, or Chronic, or Acute on Chronic? @ -acute Uncomplicated (without systemic symptoms) or Complicated (systemic symptoms)? @ -uncomplicated Side effects of treatment? @ -No Exacerbation, Progression, or Severe Exacerbation? @ -No Poses a threat to life or bodily function? How? (Chest pain, [place], [place], pneumonia, PE, COPD, DKA, ARF, appy, cholecystitis, CVA, Diverticulitis, Homicidal, S uicidal, threat to staff... and all critical care pts) @ -No Disposition Clinical Impression: Skin tear, Laceration Disposition: HOME SELF-CARE Condition: Stable Instructions (If sedation given, give patient instructions): Care For Your Stitches (ED), Acute Wound Care (ED) Additional Instructions: Keep wound clean and dry. Please return to the emergency department for new or worsening symptoms. Is patient prescribed a controlled substance at d/c from ED?: No Referrals: Ron Edwards DO [Primary Care Provider] - 1-2 days
--- NOTE | 2023-07-18 21:05 | XR ---
EXAMINATION TYPE: XR tibia fibula RT DATE OF EXAM: 07/18/2023 COMPARISON: None HISTORY: Laceration TECHNIQUE: 2 view right tibia and fibula FINDINGS: No acute osseous abnormality is evident. No acute fracture or dislocation is evident. Joint spaces appear preserved. No radiopaque foreign bodies are evident. IMPRESSION: 1. No acute osseous abnormality right tibia and fibula.
[2023-07-18 22:54] VITALS: BP 130/78; PULSE 55; RESP 17; TEMP 97.4
== END 2023-07-18 22:53 | disposition home or self-care (01) ==
LOC: EC 19:31
DX: S81.812A Laceration without foreign body, left lower leg, initial encounter (principal); I10 Essential (primary) hypertension; Z79.899 Other long term (current) drug therapy; Z23 Encounter for immunization; Z86.73 Personal history of transient ischemic attack (TIA), and cerebral infarction without residual deficits; W22.8XXA Striking against or struck by other objects, initial encounter
CPT/HCPCS: 73590; 90715; 99282; 90471; J2001

== ENCOUNTER 2023-07-31 11:45 | Emergency (ER) | payer MEDICARE, BC ==
--- NOTE | 2023-07-31 12:45 | ED ---
General Adult HPI - General Chief complaint: Recheck/Abnormal Lab/Rx Stated complaint: Open Wound R Leg Time Seen by Provider: 07/31/23 12:20 Source: patient, RN notes reviewed, old records reviewed Mode of arrival: ambulatory - History of Present Illness Initial comments: 77-year-old male resents for suture removal and wound evaluation. Patient had sutures placed approximately 10 days ago. He denies fever. States she's had some dried blood and minimal erythema around laceration. - Related Data Home Medications Medication Instructions Recorded Confirmed Tamsulosin [Flomax] 0.4 mg PO HS 07/20/15 05/22/23 dexAMETHasone ORAL [Hexadrol] 0.5 mg PO DAILY 07/20/15 05/17/23 Cholecalciferol [Vitamin D3 (125 125 mcg PO HS 08/23/22 05/22/23 Mcg = 5000 Iu)] Metoprolol Succinate [Toprol XL] 50 mg PO DAILY 11/29/22 05/17/23 Multivitamins, Thera [Multivitamin 1 tab PO DAILY 11/29/22 05/17/23 (formulary)] Tacrolimus [Prograf] 0.5 mg PO BID 02/08/23 05/17/23 Clopidogrel [Plavix] 75 mg PO DAILY 05/17/23 05/17/23 Previous Rx's Medication Instructions Recorded Aspirin 81 mg PO DAILY #0 tab 02/10/23 Atorvastatin [Lipitor] 40 mg PO HS #30 tab 02/10/23 Cephalexin [Keflex] 500 mg PO Q6HR 5 Days #20 cap 07/31/23 Allergies Allergy/AdvReac Type Severity Reaction Status Date / Time No Known Allergies Allergy Verified 07/31/23 12:16 Review of Systems ROS Statement: Those systems with pertinent positive or pertinent negative responses have been documented in the HPI. ROS Other: All systems not noted in ROS Statement are negative. 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 Past Anesthesia/Blood Transfusion Reactions: No Reported Reaction Additional Past Anesthesia/Blood Transfusion Reaction / Comment(s): Pt received blood in past without reaction. hx jaw fx- had surgery and has a plate. a little confusion when first waking up Past Psychological History: No Psychological Hx Reported Smoking Status: Never smoker Past Alcohol Use History: None Reported Past Drug Use History: None Reported - Past Family History Father Family Medical History: Cancer Additional Family Medical History / Comment(s): Father was healthy. He around the age of 83 yrs. Mother Family Medical History: Myocardial Infarction ([place]) Additional Family Medical History / Comment(s): Mother of a [place] at the age of 83 yrs. General Exam General appearance: alert, in no apparent distress Head exam: Present: atraumatic, normocephalic Eye exam: Present: normal appearance, PERRL Respiratory exam: Present: normal lung sounds bilaterally. Absent: respiratory distress Cardiovascular Exam: Present: normal rhythm, bradycardia GI/Abdominal exam: Present: soft. Absent: distended, tenderness Extremities exam: Present: other (Scabbed over laceration with embedded suture. Minimal erythema surrounding. No purulence) Course Vital Signs 07/31/23 07/31/23 12:11 13:01 Temperature 97.3 F L 97.9 F Pulse Rate 42 L 52 L Respiratory 18 16 Rate Blood Pressure 123/54 120/60 O2 Sat by Pulse 100 100 Oximetry Medical Decision Making - Medical Decision Making Was pt. sent in by a medical professional or institution (, PA, BRUSHER, urgent care, hospital, or assisted...) When possible be specific @ -No Did you speak to anyone other than the patient for history (EMS, parent, family, police, friend...)? What history was obtained from this source @ -No Did you review nursing and triage notes (agree or disagree)? Why? @ -I reviewed and agree with nursing and triage notes Were old charts reviewed (outside hosp., previous admission, EMS record, old EKG, old radiological studies, urgent care reports/EKG's, assisted records)? Report findings @ -No old charts were reviewed Differential Diagnosis (chest pain, altered mental status, abdominal pain women, abdominal pain men, vaginal bleeding, weakness, fever, dyspnea, syncope, headache, dizziness, GI bleed, back pain, seizure, CVA, palpatations, mental health, musculoskeletal)? @ -[Cellulitis, infected laceration EKG interpreted by me (3pts min.). @ -As above X-rays interpreted by me (1pt min.). @ -None done CT interpreted by me (1pt min.). @ -None done U/S interpreted by me (1pt. min.). @ -None done What testing was considered but not performed or refused? (CT, X-rays, U/S, labs)? Why? @ -None What meds were considered but not given or refused? Why? @ -None Did you discuss the management of the patient with other professionals (professionals i.e. , PA, BRUSHER, lab, RT, psych nurse, rn social work, upholstery restorer, teacher, principal gifts officer, keycase assembler)? Give summary @ -No Was smoking cessation discussed for >3mins.? @ -No Was critical care preformed (if so, how long)? @ -No Were there social determinants of health that impacted care today? How? ( Homelessness, low income, unemployed, alcoholism, drug addiction, transportation, low edu. Level, literacy, decrease access to med. care, [facility], rehab)? @ -No Was there de-escalation of care discussed even if they declined (Discuss DNR or withdrawal of care, Hospice)? DNR status @ -No What co-morbidities impacted this encounter? (DM, HTN, Smoking, COPD, CAD, Cancer, CVA, ARF, Chemo, Hep., AIDS, mental health diagnosis, sleep apnea, morbid obesity)? @ -None Was patient admitted / discharged? Hospital course, mention meds given and route, prescriptions, significant lab abnormalities, going to OR and other pertinent info. @ -[Sutures removed, clean dressing applied. I will prescribe several days of antibiotics due to some minimal surrounding erythema. Undiagnosed new problem with uncertain prognosis? @ -No Drug Therapy requiring intensive monitoring for toxicity (Heparin, Nitro, Insulin, Cardizem)? @ -No Were any procedures done? @ -No Diagnosis/symptom? @ -Laceration minimal cellulitis Acute, or Chronic, or Acute on Chronic? @ -default Uncomplicated (without systemic symptoms) or Complicated (systemic symptoms)? @ -default Side effects of treatment? @ -No Exacerbation, Progression, or Severe Exacerbation? @ -No Poses a threat to life or bodily function? How? (Chest pain, [place], [place], pneumonia, PE, COPD, DKA, ARF, appy, cholecystitis, CVA, Diverticulitis, Homicidal, Suicidal, threat to staff... and all critical care pts) @ -No Disposition Clinical Impression: Laceration, Skin tear Disposition: HOME SELF-CARE Condition: Good Instructions (If sedation given, give patient instructions): Cellulitis (ED) Prescriptions: Cephalexin [Keflex] 500 mg PO Q6HR 5 Days #20 cap Is patient prescribed a controlled substance at d/c from ED?: No Referrals: Ron Edwards DO [Primary Care Provider] - 1-2 days Time of Disposition: 12:43
[2023-07-31 13:11] VITALS: BP 120/60; PULSE 52; RESP 16; TEMP 97.9
== END 2023-07-31 13:05 | disposition home or self-care (01) ==
LOC: EC 11:45
DX: S81.811A Laceration without foreign body, right lower leg, initial encounter (principal); I10 Essential (primary) hypertension; X58.XXXA Exposure to other specified factors, initial encounter
CPT/HCPCS: 99282

== ENCOUNTER 2023-09-18 10:39 | Emergency (ER) | payer MEDICARE, BC ==
--- NOTE | 2023-09-18 11:03 | ED ---
Lower Extremity Injury HPI - General Chief Complaint: Extremity Injury, Lower Stated Complaint: Right leg pain Time Seen by Provider: 09/18/23 10:49 Source: patient, family, RN notes reviewed Mode of arrival: ambulatory Limitations: no limitations - History of Present Illness Initial Comments: Patient is a 77-year-old male presenting the ER with chief complaint of a leg wound. Patient states he was getting out of his truck and scraped his right mccauley. Patient states a history of a stroke so he has difficulty walking normally but no change from his baseline. Patient denies any other injuries from the incident. Family states today it started draining which presented him to the ER. Patient is on antirejection medications. Patient denies any pain, difficulty walking, fevers, chills, night sweats, paresthesias, radiating pain. - Related Data Home Medications Medication Instructions Recorded Confirmed Tamsulosin [Flomax] 0.4 mg PO HS 07/20/15 05/22/23 dexAMETHasone ORAL [Hexadrol] 0.5 mg PO DAILY 07/20/15 05/17/23 Cholecalciferol [Vitamin D3 (125 125 mcg PO HS 08/23/22 05/22/23 Mcg = 5000 Iu)] Metoprolol Succinate [Toprol XL] 50 mg PO DAILY 11/29/22 05/17/23 Multivitamins, Thera [Multivitamin 1 tab PO DAILY 11/29/22 05/17/23 (formulary)] Tacrolimus [Prograf] 0.5 mg PO BID 02/08/23 05/17/23 Clopidogrel [Plavix] 75 mg PO DAILY 05/17/23 05/17/23 Latanoprost Ophth [Xalatan 0.005%] 1 drop BOTH EYES HS 09/18/23 09/18/23 mycophenolate mofetiL [Cellcept] 1,000 mg PO BID 09/18/23 09/18/23 Previous Rx's Medication Instructions Recorded Aspirin 81 mg PO DAILY #0 tab 02/10/23 Atorvastatin [Lipitor] 40 mg PO HS #30 tab 02/10/23 Cephalexin [Keflex] 500 mg PO Q6HR #28 cap 09/18/23 Allergies Allergy/AdvReac Type Severity Reaction Status Date / Time No Known Allergies Allergy Verified 09/18/23 12:57 Review of Systems ROS Statement: Those systems with pertinent positive or pertinent negative responses have been documented in the HPI. ROS Other: All systems not noted in ROS Statement are negative. 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 Past Anesthesia/Blood Transfusion Reactions: No Reported Reaction Additional Past Anesthesia/Blood Transfusion Reaction / Comment(s): Pt received blood in past without reaction. hx jaw fx- had surgery and has a plate. a little confusion when first waking up Past Psychological History: No Psychological Hx Reported Smoking Status: Never smoker Past Alcohol Use History: None Reported Past Drug Use History: None Reported - Past Family History Father Family Medical History: Cancer Additional Family Medical History / Comment(s): Father was healthy. He around the age of 83 yrs. Mother Family Medical History: Myocardial Infarction ([place]) Additional Family Medical History / Comment(s): Mother of a [place] at the age of 83 yrs. General Exam Limitations: no limitations General appearance: alert, in no apparent distress Respiratory exam: Present: normal lung sounds bilaterally. Absent: respiratory distress, wheezes, rales, rhonchi, stridor Cardiovascular Exam: Present: regular rate, normal rhythm, normal heart sounds. Absent: systolic murmur, diastolic murmur, rubs, gallop, clicks Extremities exam: Present: other (3cm wound on right mccauley. Surrounding erythema and edema noted. There is purulent drainage noted from the area. 2+ right dorsalis pedis pulse) Neurological exam: Present: alert, oriented X3, CN II-XII intact Psychiatric exam: Present: normal affect, normal mood Skin exam: Present: warm, dry, intact, normal color. Absent: rash Course Vital Signs 09/18/23 09/18/23 10:40 13:12 Temperature 98.7 F Pulse Rate 56 L 51 L Respiratory 18 16 Rate Blood Pressure 145/71 118/62 O2 Sat by Pulse 97 98 Oximetry Medical Decision Making - Medical Decision Making Was pt. sent in by a medical professional or institution (, ADELINE, FIRE SUPERVISOR, urgent care, hospital, or care home...) When possible be specific @ -No Did you speak to anyone other than the patient for history (EMS, parent, family, police, friend...)? What history was obtained from this source @ -Family Did you review nursing and triage notes (agree or disagree)? Why? @ -I reviewed and agree with nursing and triage notes Were old charts reviewed (outside hosp., previous admission, EMS record, old EKG, old radiological studies, urgent care reports/EKG's, care home records)? Report findings @ -No old charts were reviewed Differential Diagnosis (chest pain, altered mental status, abdominal pain women, abdominal pain men, vaginal bleeding, weakness, fever, dyspnea, syncope, head ache, dizziness, GI bleed, back pain, seizure, CVA, palpatations, mental health, musculoskeletal)? @ -Cellulitis, abrasion, sepsis, laceration EKG interpreted by me (3pts min.). @ -None X-rays interpreted by me (1pt min.). @ -None done CT interpreted by me (1pt min.). @ -None done U/S interpreted by me (1pt. min.). @ -None done What testing was considered but not performed or refused? (CT, X-rays, U/S, lab s)? Why? @ -None What meds were considered but not given or refused? Why? @ -I offered pain medication but patient refused stating his pain was not that bad. Did you discuss the management of the patient with other professionals (professionals i.e. ADELINE Jose, FIRE SUPERVISOR, lab, RT, psych nurse, social work coordinator, peoplesoft hcm developer, teacher, police or patrol park officer, case checker)? Give summary @ -No Was smoking cessation discussed for >3mins.? @ -No Was critical care preformed (if so, how long)? @ -No Were there social determinants of health that impacted care today? How? (Homelessness, low income, unemployed, alcoholism, drug addiction, t ransportation, low edu. Level, literacy, decrease access to med. care, retirement, rehab)? @ -No Was there de-escalation of care discussed even if they declined (Discuss DNR or withdrawal of care, Hospice)? DNR status @ -No What co-morbidities impacted this encounter? (DM, HTN, Smoking, COPD, CAD, Cancer, CVA, ARF, Chemo, Hep., AIDS, mental health diagnosis, sleep apnea, morbid obesity)? @ -Immunocompromised on antirejection medications Was patient admitted / discharged? Hospital course, mention meds given and route, prescriptions, significant lab abnormalities, going to OR and other p ertinent info. @ -Discharge. On examination patient with 3 cm wound noted from right mccauley. There was surrounding erythema and edema with purulent drainage noted. Labs were obtained in the ER which were within normal range. Patient will be discharged home with a prescription for Keflex. Return parameters were discussed. Patient is to follow-up with PCP for further care. Patient expressed understanding and agreement with plan. Undiagnosed new problem with uncertain prognosis? @ -No Drug Therapy requiring intensive monitoring for toxicity (Heparin, Nitro, Insulin, Cardizem)? @ -No Were any procedures done? @ -No Diagnosis/symptom? @ -Cellulitis Acute, or Chronic, or Acute on Chronic? @ -Acute Uncomplicated (without systemic symptoms) or Complicated (systemic symptoms)? @ -Uncomplicated Side effects of treatment? @ -No Exacerbation, Progression, or Severe Exacerbation? @ -No Poses a threat to life or bodily function? How? (Chest pain, [place], [place], pneumonia, PE, COPD, DKA, ARF, appy, cholecystitis, CVA, Diverticulitis, Homicidal, Suicidal, threat to staff... and all critical care pts) @ -No - Lab Data Result diagrams: 09/18/23 11:09/18/23 11: Lab Results 09/18/23 09/18/23 09/18/23 Range/Units 11:19 11: 11: WBC 6.0 (3.8-10.6) k/uL RBC 4.19 L (4.30-5.90) m/uL Hgb 11.4 L (13.0-17.5) gm/dL Hct 36.1 L (39.0-53.0) % MCV 86.2 (80.0-100.0) fL MCH 27.2 (25.0-35.0) pg MCHC 31.6 (31.0-37.0) g/dL RDW 14.7 (11.5-15.5) % Plt Count 198 (150-450) k/uL MPV 7.4 Hypochromasia Slight Sodium 139 (137-145) mmol/L Potassium 3.7 (3.5-5.1) mmol/L Chloride 108 H (98-107) mmol/L Carbon Dioxide 26 (22-30) mmol/L Anion Gap 5 mmol/L BUN 16 (9-20) mg/dL Creatinine 1.33 H (0.66-1.25) mg/dL Est GFR (CKD-EPI)AfAm 59 (>60 ml/min/1.73 sqM) Est GFR (CKD-EPI)NonAf 51 (>60 ml/min/1.73 sqM) Glucose 73 L (74-99) mg/dL Plasma Lactic Acid Angelo 1.1 (0.7-2.0) mmol/L Calcium 9.0 (8.4-10.2) mg/dL Total Bilirubin 1.1 (0.2-1.3) mg/dL AST 24 (17-59) U/L ALT 14 (4-49) U/L Alkaline Phosphatase 62 (38-126) U/L C-Reactive Protein 0.9 (<1.0) mg/dL Total Protein 6.7 (6.3-8.2) g/dL Albumin 4.0 (3.5-5.0) g/dL Disposition Clinical Impression: Cellulitis Disposition: HOME SELF-CARE Condition: Stable Additional Instructions: Please return to the Emergency Department if symptoms worsen or any other concerns. Prescriptions: Cephalexin [Keflex] 500 mg PO Q6HR #28 cap Is patient prescribed a controlled substance at d/c from ED?: No Referrals: Ron Edwards DO [Primary Care Provider] - 1-2 days Time of Disposition: 12:59
[2023-09-18 11:07] VITALS: TEMP 98.7
[2023-09-18 12:14] LABS: HCT 36.1 % (39.0-53.0); HGB 11.4 gm/dL (13.0-17.5); Hypochromasia Slight; MCH 27.2 pg (25.0-35.0); MCHC 31.6 g/dL (31.0-37.0); MCV 86.2 fL (80.0-100.0); Mean Platelet Volume 7.4; Platelet Count 198 k/uL (150-450); RBC 4.19 m/uL (4.30-5.90); RDW 14.7 % (11.5-15.5)
[2023-09-18 12:18] LABS: ALT 14 U/L (4-49); AST 24 U/L (17-59); African American GFR (CKD) 59 (>60 ml/min/1.73 sqM); Alkaline Phosphatase 62 U/L (38-126); Anion Gap 5 mmol/L; Blood Urea Nitrogen 16 mg/dL (9-20); C Reactive Protein 0.9 mg/dL (<1.0); Carbon Dioxide 26 mmol/L (22-30); Chloride 108 mmol/L (98-107); Glucose 73 mg/dL (74-99); Non-African American GFR(CKD) 51 (>60 ml/min/1.73 sqM); Potassium 3.7 mmol/L (3.5-5.1); Sodium 139 mmol/L (137-145); Total Bilirubin 1.1 mg/dL (0.2-1.3); Total Protein 6.7 g/dL (6.3-8.2)
[2023-09-18 13:30] VITALS: BP 118/62; PULSE 51; RESP 16
[2023-09-18 15:39] LABS: Erythrocyte Sedimentation Rate 36 mm/Hr (0-20)
== END 2023-09-18 13:18 | disposition home or self-care (01) ==
LOC: EC 10:39
DX: L03.115 Cellulitis of right lower limb (principal); A49.02 Methicillin resistant Staphylococcus aureus infection, unspecified site; I10 Essential (primary) hypertension; K21.9 Gastro-esophageal reflux disease without esophagitis; M19.90 Unspecified osteoarthritis, unspecified site; N40.0 Benign prostatic hyperplasia without lower urinary tract symptoms; Z79.52 Long term (current) use of systemic steroids; Z79.02 Long term (current) use of antithrombotics/antiplatelets; Z79.899 Other long term (current) drug therapy; Z86.73 Personal history of transient ischemic attack (TIA), and cerebral infarction without residual deficits
CPT/HCPCS: 36415; 80053; 83605; 85027; 85652; 86140; 87070; 87077; 87186; 87205; 99283

== ENCOUNTER → 2023-11-03 | Outpatient (CLI) | payer MEDICARE, BC ==
--- NOTE | 2023-11-05 11:37 | MR ---
EXAMINATION TYPE: MR tib fib RT wo con DATE OF EXAM: 11/03/2023 COMPARISON: Radiograph 07/18/2023 HISTORY: 77-year-old male L03.115, Right lower leg cellulitis TECHNIQUE: Multiplanar, multisequence images of the right leg were obtained without IV contrast. Axia l and coronal sequences through the contralateral left leg were obtained for comparison purposes. FINDINGS: There is mild generalized muscle atrophy. Mild edema within the medial gastrocnemius musculature which is present on both sides but slightly as ymmetrically greater on the right. There is mild fluid along the fascial plane deep to the medial hea d gastrocnemius on both sides. Mild edema deep posterior compartment musculature distal leg. Subcutaneous soft tissue swelling throughout throughout both legs, right greater than left. No abnorm al fluid collection is identified. No acute or healing fracture. No suspicious bone marrow replacement or suspicious bone marrow edema. Possible partially visualized right popliteal artery aneurysm measure at least 1.9 cm. IMPRESSION: 1. Nonspecific generalized subcutaneous soft tissue swelling scattered throughout the right leg appea rs fairly symmetric to the contralateral side. 2. No abnormal fluid collection identified. No acute or healing fracture or suspicious bone marrow ed chasity. 3. Mild muscle edema medial and gastrocnemius is present on both sides, though slightly greater on th e right. Findings may be reactive due to altered biomechanics or could represent mild muscle strains. Trace fluid along the fascial plane deep to the medial head gastrocnemius is also symmetrical and is probably reactive. 4. Possible partially visualized right popliteal artery aneurysm measuring at least 1.9 cm. Consider a targeted ultrasound as an initial screening assessment.
== END | disposition home or self-care (01) ==
LOC: RADMRIMAIN 14:57
PROVIDERS: ATTEND Family Medicine
DX: L03.115 Cellulitis of right lower limb (principal); R60.0 Localized edema

== ENCOUNTER 2024-02-21 16:46 | Observation (INO) | payer MEDICARE, BC ==
--- NOTE | 2024-02-21 17:22 | ED ---
Weakness HPI - General Source: patient, family, RN notes reviewed Mode of arrival: wheelchair Limitations: no limitations <Mary Lou Oscar - Last Filed: 02/21/24 17:21> <Rosalva Shen - Last Filed: 02/21/24 23:44> - General Chief complaint: Weakness Stated complaint: Abd pain,Nausea Time Seen by Provider: 02/21/24 17:21 - History of Present Illness Initial comments: Quick note: 78-year-old male presented to the ER with chief complaint of weakness. He states on Monday he started to experience diarrhea and decreased energy. He denies any abdominal pain. Does report chills. 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 The patient presents to the ER today with complaint of diarrhea since Monday. Patient states he is having 3-4 bouts of loose stools daily he feels nauseated decreased oral intake. States that the stools are watery there is no blood. No significant abdominal pain. No vomiting. Son does note that the patient has been admitted in the past for diarrhea he has had C. difficile in the past and during a previous admission did get septic and was quite sick. (Rosalva Shen) - Related Data Home Medications Medication Instructions Recorded Confirmed Tamsulosin [Flomax] 0.4 mg PO DAILY 07/20/15 02/21/24 dexAMETHasone ORAL [Hexadrol] 0.5 mg PO DAILY 07/20/15 02/21/24 Metoprolol Succinate [Toprol XL] 50 mg PO DAILY 11/29/22 02/21/24 Tacrolimus [Prograf] 0.5 mg PO BID 02/08/23 02/21/24 Clopidogrel [Plavix] 75 mg PO DAILY 05/17/23 02/21/24 Latanoprost Ophth [Xalatan 0.005%] 1 drop BOTH EYES HS 09/18/23 02/21/24 mycophenolate mofetiL [Cellcept] 1,000 mg PO BID 09/18/23 02/21/24 Pravastatin Sodium [Pravachol] 10 mg PO DAILY 02/21/24 02/21/24 Allergies Allergy/AdvReac Type Severity Reaction Status Date / Time No Known Allergies Allergy Verified 02/21/24 19:14 Review of Systems ROS Other: All systems not noted in ROS Statement are negative. <Mary Lou Oscar - Last Filed: 02/21/24 17:21> ROS Other: All systems not noted in ROS Statement are negative. <Rosalva Shen - Last Filed: 02/21/24 23:44> ROS Statement: Those systems with pertinent positive or pertinent negative responses have been documented in the HPI. 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 Past Anesthesia/Blood Transfusion Reactions: No Reported Reaction Additional Past Anesthesia/Blood Transfusion Reaction / Comment(s): Pt received blood in past without reaction. hx jaw fx- had surgery and has a plate. a little confusion when first waking up Past Psychological History: No Psychological Hx Reported Smoking Status: Never smoker Past Alcohol Use History: None Reported Past Drug Use History: None Reported - Past Family History Father Family Medical History: Cancer Additional Family Medical History / Comment(s): Father was healthy. He around the age of 83 yrs. Mother Family Medical History: Myocardial Infarction (SD) Additional Family Medical History / Comment(s): Mother of a SD at the age of 83 yrs. <Mary Lou Oscar - Last Filed: 02/21/24 17:21> General Exam Limitations: no limitations <Mary Lou Oscar - Last Filed: 02/21/24 17:21> - General Exam Comments Initial Comments: Visual Physical Exam Vital signs reviewed General: Well-appearing, nontoxic, no acute distress. Head: Normocephalic, atraumatic Eyes: PERRLA, EOMI ENT: Airway patent Chest: Nonlabored breathing Skin: No visual rash, normal skin tone Neuro: Alert and oriented 3 Musculoskeletal: No gross abnormalities (Mary Lou Oscar) Course Vital Signs 02/21/24 02/21/24 02/21/24 17:01 18:28 20:30 Temperature 100.7 F H 101.1 F H 98.9 F Pulse Rate 69 72 74 Respiratory 16 18 18 Rate Blood Pressure 129/66 139/56 111/47 O2 Sat by Pulse 97 99 95 Oximetry 02/21/24 23:15 Temperature Pulse Rate 71 Respiratory 18 Rate Blood Pressure 115/51 O2 Sat by Pulse 96 Oximetry EKG Findings - EKG Comments: EKG Findings:: EKG interpreted by me EKG obtained as part septic workup EKG obtained at 1712 rate is 65 rhythm sinus leftward deviation with LVH, ME 185 QRS 120 QTc 402, no ST elevations or depressions no evidence of acute ischemia or infarction <Rosalva Shen - Last Filed: 02/21/24 23:44> Medical Decision Making <Mary Lou Oscar - Last Filed: 02/21/24 17:21> - Lab Data Result diagrams: 02/21/24 17:37 02/21/24 17:37 <Rosalva Shen - Last Filed: 02/21/24 23:44> - Medical Decision Making I performed the quick note portion of this chart. Electronically signed by Mary Lou Oscar PA-C (Mary Lou Oscar) Was pt. sent in by a medical professional or institution (ADELINE Jose, [employer] PE[employer] OPERATOR, urgent care, hospital, or correction...) When possible be specific @ -No Did you speak to anyone other than the patient for history (EMS, parent, family, police, friend...)? What history was obtained from this source @ -No Did you review nursing and triage notes (agree or disagree)? Why? @ -I reviewed and agree with nursing and triage notes Were old charts reviewed (outside hosp., previous admission, EMS record, old EKG, old radiological studies, urgent care reports/EKG's, correction records)? Report findings @ -Yes previous admissions were reviewed Differential Diagnosis (chest pain, altered mental status, abdominal pain women, abdominal pain men, vaginal bleeding, weakness, fever, dyspnea, syncope, headache, dizziness, GI bleed, back pain, seizure, CVA, palpatations, mental health)? @ -Differential Abdominal Pain Men: Appendicitis, cholecystitis, diverticulosis, ischemic bowel, pancreatitis, hepatitis, UTI, gastroenteritis, AAA, incarcerated hernia, bowel obstruction, constipation, inflammatory bowel, hepatitis, peptic ulcer disease, splenic infarction, perforated viscus, testicular torsion, this is not meant to be an all-inclusive list EKG interpreted by me (3pts min.). @ -As above X-rays interpreted by me (1pt min.). @ -None done CT interpreted by me (1pt min.). @ -None done U/S interpreted by me (1pt. min.). @ -None done What testing was considered but not performed or refused? (CT, X-rays, U/S, l abs)? Why? @ -None What meds were considered but not given or refused? Why? @ -None Did you discuss the management of the patient with other professionals (professionals i.e. , PA, [employer] PEEL OPERATOR, lab, RT, psych nurse, director social, foot piece assembler, teacher, radiation officer, continuous pillowcase cutter)? Give summary @ -No Was smoking cessation discussed for >3mins.? @ -No Was critical care preformed (if so, how long)? @ -No Were there social determinants of health that impacted care today? How? (Homelessness, low income, unemployed, alcoholism, drug addiction, transportation, low edu. Level, literacy, decrease access to med. care, group home, rehab)? @ -No Was there de-escalation of care discussed even if they declined (Discuss DNR or withdrawal of care, Hospice)? DNR status @ -No What co-morbidities impacted this encounter? (DM, HTN, Smoking, COPD, CAD, Cancer, CVA, ARF, Chemo, Hep., AIDS, mental health diagnosis, sleep apnea, morbid obesity)? @ -Immunocompromise, liver transplant Was patient admitted / discharged? Hospital course, mention meds given and route, prescriptions, significant lab abnormalities, going to OR and other pertinent info. @ -Admit The patient was seen and evaluated, patient with abdominal cramping and diarrhea. Labs were obtained and are unremarkable aside from UTI. Given that the patient is immunocompromised on tacrolimus we will plan to admit for IV antibiotics and close observation patient does have a history of becoming septic from infections similar to this in the past. Undiagnosed new problem with uncertain prognosis? @ -No Drug Therapy requiring intensive monitoring for toxicity (Heparin, Nitro, Insulin, Cardizem)? @ -No Were any procedures done? @ -No Diagnosis/symptom? @ -UTI, immunocompromised, liver transplant patient Acute, or Chronic, or Acute on Chronic? @ -Acute Uncomplicated (without systemic symptoms) or Complicated (systemic symptoms)? @ -Default Side effects of treatment? @ -No Exacerbation, Progression, or Severe Exacerbation? @ -No Poses a threat to life or bodily function? How? (Chest pain, USA, SD, pneumonia, PE, COPD, DKA, ARF, appy, cholecystitis, CVA, Diverticulitis, Homicidal, Suicidal, threat to staff... and all critical care pts) @ -Yes, can advance to sepsis septic shock and (Rosalva Shen) - Lab Data Lab Results 02/21/24 02/21/24 02/21/24 Range/Units 17:37 17:37 17:37 WBC 7.4 (3.8-10.6) k/uL RBC 4.72 (4.30-5.90) m/uL Hgb 12.7 L (13.0-17.5) gm/dL Hct 39.6 (39.0-53.0) % MCV 83.9 (80.0-100.0) fL MCH 26.9 (25.0-35.0) pg MCHC 32.0 (31.0-37.0) g/dL RDW 13.8 (11.5-15.5) % Plt Count 200 (150-450) k/uL MPV 7.6 Neutrophils % 76 % Lymphocytes % 12 % Monocytes % 5 % Eosinophils % 4 % Basophils % 0 % Neutrophils # 5.6 (1.3-7.7) k/uL Lymphocytes # 0.9 L (1.0-4.8) k/uL Monocytes # 0.3 (0-1.0) k/uL Eosinophils # 0.3 (0-0.7) k/uL Basophils # 0.0 (0-0.2) k/uL PT 11.3 (10.0-12.5) sec INR 1.0 (<1.2) APTT 26.8 (22.0-30.0) sec Sodium 132 L (137-145) mmol/L Potassium 4.4 (3.5-5.1) mmol/L Chloride 100 (98-107) mmol/L Carbon Dioxide 23 (22-30) mmol/L Anion Gap 9 mmol/L BUN 22 H (9-20) mg/dL Creatinine 1.54 H (0.66-1.25) mg/dL Est GFR (CKD-EPI)AfAm 49 (>60 ml/min/1.73 sqM) Est GFR (CKD-EPI)NonAf 42 (>60 ml/min/1.73 sqM) Glucose 74 (74-99) mg/dL Plasma Lactic Acid Angelo (0.7-2.0) mmol/L Calcium 9.0 (8.4-10.2) mg/dL Phosphorus 2.8 (2.5-4.5) mg/dL Magnesium 1.7 (1.6-2.3) mg/dL Total Bilirubin 1.4 H (0.2-1.3) mg/dL AST 32 (17-59) U/L ALT 13 (4-49) U/L Alkaline Phosphatase 75 (38-126) U/L Troponin I (0.000-0.034) ng/mL Total Protein 7.0 (6.3-8.2) g/dL Albumin 4.0 (3.5-5.0) g/dL Urine Color Urine Appearance (Clear) Urine pH (5.0-8.0) Ur Specific [place] (1.001-1.035) Urine Protein (Negative) Urine Glucose (UA) (Negative) Urine Ketones (Negative) Urine Blood (Negative) Urine Nitrite (Negative) Urine Bilirubin (Negative) Urine Urobilinogen (<2.0) mg/dL Ur Leukocyte Esterase (Negative) Urine RBC (0-5) /hpf Urine WBC (0-5) /hpf Urine WBC Clumps (None) /hpf Ur Squamous Epith Cells (0-4) /hpf Urine Bacteria (None) /hpf Urine Mucus (None) /hpf Influenza Type A (PCR) (Not Detectd) Influenza Type B (PCR) (Not Detectd) RSV (PCR) (Not Detectd) SARS-CoV-2 (PCR) (Not Detectd) 02/21/24 02/21/24 02/21/24 Range/Units 17:37 17:37 18:00 WBC (3.8-10.6) k/uL RBC (4.30-5.90) m/uL Hgb (13.0-17.5) gm/dL Hct (39.0-53.0) % MCV (80.0-100.0) fL MCH (25.0-35.0) pg MCHC (31.0-37.0) g/dL RDW (11.5-15.5) % Plt Count (150-450) k/uL MPV Neutrophils % % Lymphocytes % % Monocytes % % Eosinophils % % Basophils % % Neutrophils # (1.3-7.7) k/uL Lymphocytes # (1.0-4.8) k/uL Monocytes # (0-1.0) k/uL Eosinophils # (0-0.7) k/uL Basophils # (0-0.2) k/uL PT (10.0-12.5) sec INR (<1.2) APTT (22.0-30.0) sec Sodium (137-145) mmol/L Potassium (3.5-5.1) mmol/L Chloride (98-107) mmol/L Carbon Dioxide (22-30) mmol/L Anion Gap mmol/L BUN (9-20) mg/dL Creatinine (0.66-1.25) mg/dL Est GFR (CKD-EPI)AfAm (>60 ml/min/1.73 sqM) Est GFR (CKD-EPI)NonAf (>60 ml/min/1.73 sqM) Glucose (74-99) mg/dL Plasma Lactic Acid Angelo 1.9 (0.7-2.0) mmol/L Calcium (8.4-10.2) mg/dL Phosphorus (2.5-4.5) mg/dL Magnesium (1.6-2.3) mg/dL Total Bilirubin (0.2-1.3) mg/dL AST (17-59) U/L ALT (4-49) U/L Alkaline Phosphatase (38-126) U/L Troponin I <0.012 (0.000-0.034) ng/mL Total Protein (6.3-8.2) g/dL Albumin (3.5-5.0) g/dL Urine Color Urine Appearance (Clear) Urine pH (5.0-8.0) Ur Specific [place] (1.001-1.035) Urine Protein (Negative) Urine Glucose (UA) (Negative) Urine Ketones (Negative) Urine Blood (Negative) Urine Nitrite (Negative) Urine Bilirubin (Negative) Urine Urobilinogen (<2.0) mg/dL Ur Leukocyte Esterase (Negative) Urine RBC (0-5) /hpf Urine WBC (0-5) /hpf Urine WBC Clumps (None) /hpf Ur Squamous Epith Cells (0-4) /hpf Urine Bacteria (None) /hpf Urine Mucus (None) /hpf Influenza Type A (PCR) Not Detected (Not Detectd) Influenza Type B (PCR) Not Detected (Not Detectd) RSV (PCR) Not Detected (Not Detectd) SARS-CoV-2 (PCR) Not Detected (Not Detectd) 02/21/24 Range/Units 20:57 WBC (3.8-10.6) k/uL RBC (4.30-5.90) m/uL Hgb (13.0-17.5) gm/dL Hct (39.0-53.0) % MCV (80.0-100.0) fL MCH (25.0-35.0) pg MCHC (31.0-37.0) g/dL RDW (11.5-15.5) % Plt Count (150-450) k/uL MPV Neutrophils % % Lymphocytes % % Monocytes % % Eosinophils % % Basophils % % Neutrophils # (1.3-7.7) k/uL Lymphocytes # (1.0-4.8) k/uL Monocytes # (0-1.0) k/uL Eosinophils # (0-0.7) k/uL Basophils # (0-0.2) k/uL PT (10.0-12.5) sec INR (<1.2) APTT (22.0-30.0) sec Sodium (137-145) mmol/L Potassium (3.5-5.1) mmol/L Chloride (98-107) mmol/L Carbon Dioxide (22-30) mmol/L Anion Gap mmol/L BUN (9-20) mg/dL Creatinine (0.66-1.25) mg/dL Est GFR (CKD-EPI)AfAm (>60 ml/min/1.73 sqM) Est GFR (CKD-EPI)NonAf (>60 ml/min/1.73 sqM) Glucose (74-99) mg/dL Plasma Lactic Acid Angelo (0.7-2.0) mmol/L Calcium (8.4-10.2) mg/dL Phosphorus (2.5-4.5) mg/dL Magnesium (1.6-2.3) mg/dL Total Bilirubin (0.2-1.3) mg/dL AST (17-59) U/L ALT (4-49) U/L Alkaline Phosphatase (38-126) U/L Troponin I (0.000-0.034) ng/mL Total Protein (6.3-8.2) g/dL Albumin (3.5-5.0) g/dL Urine Color Yellow Urine Appearance Turbid (Clear) Urine pH 5.5 (5.0-8.0) Ur Specific [place] 1.017 (1.001-1.035) Urine Protein 1+ H (Negative) Urine Glucose (UA) Negative (Negative) Urine Ketones Trace H (Negative) Urine Blood Moderate H (Negative) Urine Nitrite Negative (Negative) Urine Bilirubin Negative (Negative) Urine Urobilinogen <2.0 (<2.0) mg/dL Ur Leukocyte Esterase Large H (Negative) Urine RBC 7 H (0-5) /hpf Urine WBC >182 H (0-5) /hpf Urine WBC Clumps Many H (None) /hpf Ur Squamous Epith Cells 1 (0-4) /hpf Urine Bacteria Few H (None) /hpf Urine Mucus Rare H (None) /hpf Influenza Type A (PCR) (Not Detectd) Influenza Type B (PCR) (Not Detectd) RSV (PCR) (Not Detectd) SARS-CoV-2 (PCR) (Not Detectd) Disposition <Mary Lou Oscar - Last Filed: 02/21/24 17:21> Is patient prescribed a controlled substance at d/c from ED?: No <Rosalva Shen - Last Filed: 02/21/24 23:44> Clinical Impression: UTI (urinary tract infection), Diarrhea, Hyponatremia, Fever, Liver transplant recipient Disposition: ADMITTED IP TO THIS HOSP Condition: Serious
[2024-02-21 17:58] LABS: Basophils % (A) 0 %; Eosinophils # (A) 0.3 k/uL (0-0.7); Eosinophils % (A) 4 %; HCT 39.6 % (39.0-53.0); HGB 12.7 gm/dL (13.0-17.5); Lymphocytes # (A) 0.9 k/uL (1.0-4.8); Lymphocytes % (A) 12 %; MCH 26.9 pg (25.0-35.0); MCV 83.9 fL (80.0-100.0); Mean Platelet Volume 7.6; Monocytes # (A) 0.3 k/uL (0-1.0); Monocytes % (A) 5 %; Neutrophils # (A) 5.6 k/uL (1.3-7.7); Neutrophils % (A) 76 %; Platelet Count 200 k/uL (150-450); RBC 4.72 m/uL (4.30-5.90); RDW 13.8 % (11.5-15.5); WBC 7.4 k/uL (3.8-10.6)
[2024-02-21 18:08] LABS: Partial Thromboplastin Time 26.8 sec (22.0-30.0); Prothrombin Time 11.3 sec (10.0-12.5)
[2024-02-21 18:09] LABS: ALT 13 U/L (4-49); African American GFR (CKD) 49 (>60 ml/min/1.73 sqM); Anion Gap 9 mmol/L; Blood Urea Nitrogen 22 mg/dL (9-20); Carbon Dioxide 23 mmol/L (22-30); Chloride 100 mmol/L (98-107); Glucose 74 mg/dL (74-99); Non-African American GFR(CKD) 42 (>60 ml/min/1.73 sqM); Sodium 132 mmol/L (137-145); Total Bilirubin 1.4 mg/dL (0.2-1.3)
[2024-02-21 18:13] LABS: AST 32 U/L (17-59); Alkaline Phosphatase 75 U/L (38-126); Magnesium 1.7 mg/dL (1.6-2.3); Phosphorus 2.8 mg/dL (2.5-4.5); Potassium 4.4 mmol/L (3.5-5.1)
[2024-02-21] MEDS: SODIUM CHLORIDE 0.9% 500 ML 500 ML IV ONE (18:33)
[2024-02-21] MEDS: ACETAMINOPHEN TAB 325 MG TAB PO STA (18:33)
--- NOTE | 2024-02-21 18:45 | XR ---
EXAMINATION TYPE: XR chest 2V DATE OF EXAM: 02/21/2024 6:14 PM CLINICAL INDICATION:Male, 78 years old with history of Weakness; [facility] COMPARISON: 02/08/2023 chest x-ray TECHNIQUE: XR chest 2V. Frontal and lateral views of the chest.. FINDINGS: Monitor leads overlie the chest. No indwelling lines are seen. Patient is rotated, limiting assessment, and exaggerating the cardiomediastinal structures. Heart ivis ears mildly to moderately enlarged. Tortuosity and ectasia of the aorta, appears greater than before but possibly also exaggerated by positioning. Chronic senescent changes in the lungs redemonstrated. Asymmetric elevation of the left hemidiaphragm again seen likely from eventration. Mild bibasilar subsegmental atelectasis. No acute infiltrate, si zable effusion, or pneumothorax. No acute osseous abnormality seen. Suspect old mild right rib deformities. Mild degenerative changes of the dorsal spine. IMPRESSION: 1. No acute pulmonary abnormality. 2. Tortuosity and ectasia of the aorta, potentially increased from the prior study. If clinically wa rranted, dissection protocol CTA may be obtained for further evaluation.
[2024-02-21 21:16] LABS: Appearance,Urine Turbid (Clear); Bacteria,Urine Few /hpf; Bilirubin,Urine Negative (Negative); Blood,Urine Moderate (Negative); Color,Urine Yellow; Glucose,Urine (UA) Negative (Negative); Ketones,Urine Trace (Negative); Leukocyte Esterase,Urine Large (Negative); Mucus,Urine Rare /hpf; Nitrite,Urine Negative (Negative); PH, Urine 5.5 (5.0-8.0); Protein,Urine 1+ (Negative); RBC,Urine 7 /hpf (0-5); Specific Gravity,Urine 1.017 (1.001-1.035); Squamous Epithelial Cell,Urine 1 /hpf (0-4); Urobilinogen,Urine <2.0 mg/dL (<2.0); WBC,Urine >182 /hpf (0-5)
[2024-02-21] MEDS ORDERED: NALOXONE 0.4 MG/ML 1 ML VIAL IV PRN (23:18)
[2024-02-21] MEDS ORDERED: ACETAMINOPHEN TAB 325 MG TAB PO PRN (23:18)
[2024-02-21] MEDS: SODIUM CHLORIDE 0.9% 1,000 ML IV SCH (23:41)
[2024-02-21] MEDS: cefTRIAXone IN SWFI 1,000 MG/10 ML SYRINGE IVP ONE (23:41)
[2024-02-22] MEDS: PANTOPRAZOLE 40 MG TABLET PO SCH (05:56)
[2024-02-22 06:38] LABS: Basophils % (A) 0 %; Eosinophils # (A) 0.2 k/uL (0-0.7); Eosinophils % (A) 4 %; HCT 33.3 % (39.0-53.0); HGB 10.5 gm/dL (13.0-17.5); Hypochromasia Moderate; Lymphocytes % (A) 16 %; MCH 27.6 pg (25.0-35.0); MCHC 31.5 g/dL (31.0-37.0); MCV 87.6 fL (80.0-100.0); Mean Platelet Volume 7.7; Monocytes # (A) 0.5 k/uL (0-1.0); Monocytes % (A) 7 %; Neutrophils # (A) 4.2 k/uL (1.3-7.7); Neutrophils % (A) 69 %; Platelet Count 147 k/uL (150-450); RDW 13.8 % (11.5-15.5); WBC 6.1 k/uL (3.8-10.6)
[2024-02-22 07:28] LABS: African American GFR (CKD) 48 (>60 ml/min/1.73 sqM); Anion Gap 9 mmol/L; Blood Urea Nitrogen 21 mg/dL (9-20); Calcium 8.4 mg/dL (8.4-10.2); Carbon Dioxide 17 mmol/L (22-30); Chloride 106 mmol/L (98-107); Glucose 82 mg/dL (74-99); Magnesium 1.6 mg/dL (1.6-2.3); Non-African American GFR(CKD) 41 (>60 ml/min/1.73 sqM); Potassium 3.9 mmol/L (3.5-5.1); Sodium 132 mmol/L (137-145)
[2024-02-22] MEDS: TACROLIMUS 0.5 MG CAP PO SCH (09:21)
[2024-02-22] MEDS: PRAVASTATIN SODIUM 20 MG TAB PO SCH (09:21)
[2024-02-22] MEDS: CLOPIDOGREL 75 MG TAB PO SCH (09:22)
[2024-02-22] MEDS: METOPROLOL SUCCINATE (ER) 50 MG TAB.ER.24H PO SCH (09:22)
[2024-02-22] MEDS: TAMSULOSIN 0.4 MG CAP.ER.24H PO SCH (09:22)
--- NOTE | 2024-02-22 19:24 | P.HPIM ---
History of Present Illness H&P Date: 02/22/24 Chief Complaint: Weakness Patient is a 78-year-old male with a past medical history of CVA/TIA, cryptogenic liver/GI dyspnea past with liver transplant currently on immunosupp ressive therapy, BPH on follow-up with urology every year, osteoarthritis, hypertension, hypothyroidism and GERD and prior history of ESBL UTI and other medical problems. Patient presented to ER with complaints of generalized weakness. Patient states that he has been having diarrhea since Monday and has been feeling weak and decreased energy. Mainly loose stools. Denies any blood in the stools. Denied hematemesis or melena. Patient did have chills but denies any fever at home. Will also complaining of nausea. Denies dysuria or hematuria. Patient was previously admitted to hospital for sepsis due to C. difficile infection. On admission Tmax 101.1, pulse 72 respiration 18 and pulse ox 97% on room air. Chest x-ray showed no acute pulmonary abnormality. Tortuosity and ectasia of the aorta., Potentially increased from prior study. EKG showed sinus rhythm Laboratory data showed WBC 7.4 hemoglobin 12.7 and platelets 200 Sodium 132 potassium 4.4 chloride 100 bicarb is 23, BUN 2020 creatinine 1.54, total bili 1.4 liver radiographs are not elevated troponin x 1 Urinalysis showed turbid with 1+ protein trace ketones moderate blood large leukocyte esterase with elevated WBCs greater than 182 Influenza AB RSV and COVID-19 PCR not detected. Review of Systems Constitutional: Patient denies any fever or chills . Generalized weakness and fatigue. s. Abdomen: Patient denied nausea vomiting. Patient did have diarrhea and no abdominal pain. Cardiovascular: Patient denies any chest pain or short of breath no palpitations. Respiratory: patient denied any cough is from production. No shortness of breath Neurologic: Patient denied any numbness or tingling headache. Musculoskeletal: Patient denies any complaints of joint swelling or deformity. Skin: Negative Psychiatric: Negative Endocrine: No heat or cold intolerance. No recent weight gain. Genitourinary: No dysuria or hematuria. All other 14 point ROS negative except the above Past Medical History Past Medical History: CVA/TIA, GERD/Reflux, Hypertension, Liver Disease, Osteoarthritis (OA), Prostate Disorder, Syncope, Thyroid Disorder Additional Past Medical History / Comment(s): Cryptogenic liver/jaundice in past with 2 past liver transplants, BPH, kidney problems prior to liver transplant-no current problems, past jaw fx with sx, February 2017-had episode with rt sided weakness and a fall-has no current effects, had episode of frequent PVC's, "thin skin" History of Any Multi-Drug Resistant Organisms: ESBL, MRSA Date of last positivie culture/infection: 09/18/23 MRSA; 08/23/22 ESBL MDRO Source:: Right Leg-MRSA; Blood-ESBL Additional Past Surgical History / Comment(s): 1999 liver transplant, 2003 liver transplant, 2007 plate in jaw from fx, bilateral cataract removal with lens, colonoscopy. Past Anesthesia/Blood Transfusion Reactions: No Reported Reaction Additional Past Anesthesia/Blood Transfusion Reaction / Comment(s): Pt received blood in past without reaction. hx jaw fx- had surgery and has a plate. 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 He around the age of 83 yrs. Mother Family Medical History: Myocardial Infarction ([place]) Additional Family Medical History / Comment(s): Mother of a [place] at the age of 83 yrs. Medications and Allergies Home Medications Medication Instructions Recorded Confirmed Type Tamsulosin [Flomax] 0.4 mg PO DAILY 07/20/15 02/21/24 History dexAMETHasone ORAL [Hexadrol] 0.5 mg PO DAILY 07/20/15 02/21/24 History Metoprolol Succinate [Toprol XL] 50 mg PO DAILY 11/29/22 02/21/24 History Tacrolimus [Prograf] 0.5 mg PO BID 02/08/23 02/21/24 History Clopidogrel [Plavix] 75 mg PO DAILY 05/17/23 02/21/24 History Latanoprost Ophth [Xalatan 0.005%] 1 drop BOTH EYES HS 09/18/23 02/21/24 History mycophenolate mofetiL [Cellcept] 1,000 mg PO BID 09/18/23 02/21/24 History Pravastatin Sodium [Pravachol] 10 mg PO DAILY 02/21/24 02/21/24 History Allergies Allergy/AdvReac Type Severity Reaction Status Date / Time No Known Allergies Allergy Verified 02/21/24 19:14 Physical Exam Vitals: Vital Signs Temp Pulse Pulse Resp BP BP Pulse Ox 02/22/24 07:00 98.6 F 73 16 112/47 96 02/22/24 00:14 98.0 F 78 16 137/65 100 02/21/24 23:15 71 18 115/51 96 02/21/24 20:30 98.9 F 74 18 111/47 95 02/21/24 18:28 101.1 F H 72 18 139/56 99 02/21/24 17:01 100.7 F H 69 16 129/66 97 Intake and Output 02/21/24 02/22/24 02/22/24 22:59 06:59 14:59 Intake Total 118 Output Total 600 Balance -482 Intake: Oral 118 Output: Urine 600 Other: # Voids 1 Weight 88.451 kg 88.451 kg PHYSICAL EXAMINATION: Patient is lying in the bed comfortably, no acute distress, awake alert and o riented.. HEENT: Normocephalic. Neck is supple. Pupils reactive. Nostrils clear. Oral cavity is moist. Neck reveals no JVD, carotid bruits, or thyromegaly. CHEST EXAMINATION: Trachea is central. Symmetrical expansion. Lung hardy clear to auscultation and percussion. CARDIAC: Normal S1, S2 with no gallops. No murmurs ABDOMEN: Soft. Bowel sounds normal. No organomegaly. No abdominal bruits. Extremities: reveal no edema. Bilateral lower extremity dry skin. No clubbing or cyanosis Neurologically awake, alert, oriented x 2-3 able to move all extremities.. No gross focal deficits noted Skin: No rash or skin lesions. Psychiatric: Coperative. Nonsuicidal Musculoskeletal: No joint swelling or deformity. Normal range of motion. Results CBC & Chem 7: 02/22/24 06:10 02/22/24 06:10 Labs: Abnormal Lab Results - Last 24 Hours (Table) 02/21/24 02/21/24 02/21/24 Range/Units 17:37 17:37 20:57 RBC (4.30-5.90) m/uL Hgb 12.7 L (13.0-17.5) gm/dL Hct (39.0-53.0) % Plt Count (150-450) k/uL Lymphocytes # 0.9 L (1.0-4.8) k/uL Sodium 132 L (137-145) mmol/L Carbon Dioxide (22-30) mmol/L BUN 22 H (9-20) mg/dL Creatinine 1.54 H (0.66-1.25) mg/dL Total Bilirubin 1.4 H (0.2-1.3) mg/dL Urine Protein 1+ H (Negative) Urine Ketones Trace H (Negative) Urine Blood Moderate H (Negative) Ur Leukocyte Esterase Large H (Negative) Urine RBC 7 H (0-5) /hpf Urine WBC >182 H (0-5) /hpf Urine WBC Clumps Many H (None) /hpf Urine Bacteria Few H (None) /hpf Urine Mucus Rare H (None) /hpf 02/22/24 02/22/24 Range/Units 06:10 06:10 RBC 3.80 L (4.30-5.90) m/uL Hgb 10.5 L (13.0-17.5) gm/dL Hct 33.3 L (39.0-53.0) % Plt Count 147 L (150-450) k/uL Lymphocytes # (1.0-4.8) k/uL Sodium 132 L (137-145) mmol/L Carbon Dioxide 17 L (22-30) mmol/L BUN 21 H (9-20) mg/dL Creatinine 1.57 H (0.66-1.25) mg/dL Total Bilirubin (0.2-1.3) mg/dL Urine Protein (Negative) Urine Ketones (Negative) Urine Blood (Negative) Ur Leukocyte Esterase (Negative) Urine RBC (0-5) /hpf Urine WBC (0-5) /hpf Urine WBC Clumps (None) /hpf Urine Bacteria (None) /hpf Urine Mucus (None) /hpf Thrombosis Risk Factor Assmnt - DVT/VTE Prophylaxis DVT/VTE Prophylaxis: Pharmacologic Prophylaxis ordered Assessment and Plan Assessment: Acute urinary tract infection Acute diarrhea. Rule out C. difficile infection Mild acute kidney injury creatinine 1.57 on admission Hypovolemic hyponatremia History of liver transplant due to cryptogenic liver on immunosuppressive therapy Hypertension History of CVA/TIA with previous right-sided weakness Hypothyroidism BPH Osteoarthritis History of ESBL urinary tract infection DVT prophylaxis with heparin subcu Plan: Patient will be continued on IV hydration with normal saline. Continue antibiotics ceftriaxone follow-up urine cultures and blood cultures. Patient will be continued on immunosuppressive therapy including CellCept, Hexadrol and Prograf. Continue with Flomax and follow-up postvoid residual. C. difficile toxin will be sent with the patient is still having diarrhea Continue other home medications and PT OT will be consulted. Continue to follow closely. Time with Patient: Greater than 30
[2024-02-22] MEDS: LATANOPROST 0.005% OPHTH DROPS 2.5 ML BTL BOTH EYES SCH (20:41)
[2024-02-22] MEDS: HEPARIN SODIUM,PORCINE 5,000 UNIT/ML 1 ML VIAL SQ SCH (20:41)
[2024-02-23 10:31] LABS: Basophils # (A) 0.01 X 10*3/uL (0.00-0.10); Basophils % (A) 0.2 %; Eosinophils # (A) 0.18 X 10*3/uL (0.04-0.35); Eosinophils % (A) 3.7 %; HCT 33.4 % (39.6-50.0); HGB 10.3 g/dL (13.0-17.0); Lymphocytes # (A) 0.85 X 10*3/uL (0.90-5.00); Lymphocytes % (A) 17.2 %; MCH 26.4 pg (27.0-32.0); MCHC 30.8 g/dL (32.0-37.0); MCV 85.6 FL (80.0-97.0); Mean Platelet Volume 9.9 FL (9.5-12.2); Monocytes # (A) 0.53 X 10*3/uL (0.20-1.00); Monocytes % (A) 10.8 %; NRBC Per 100 WBC 0 X 10*3/uL (0.00-0.01); Neutrophils # (A) 3.34 X 10*3/uL (1.80-7.70); Neutrophils % (A) 67.7 %; Platelet Count 163 X 10*3/uL (140-440); RDW 13.1 % (11.5-14.5); WBC 4.93 X 10*3/uL (4.50-10.00)
[2024-02-23 10:57] LABS: Blood Urea Nitrogen 16.1 mg/dL (9.0-27.0); Calcium 8.4 mg/dL (8.7-10.3); Carbon Dioxide 18.4 mmol/L (21.6-31.8); Chloride 107 mmol/L (96-109); Glucose 91 mg/dL (70-110); Potassium 4.3 mmol/L (3.5-5.5); Sodium 138 mmol/L (135-145)
--- NOTE | 2024-02-23 17:43 | P.PN ---
Subjective Progress Note Date: 02/23/24 78-year-old male with a past medical history of CVA/TIA, cryptogenic liver/GI dyspnea past with liver transplant currently on immunosuppressive therapy, BPH on follow-up with urology every year, osteoarthritis, hypertension, hypothyroidism and GERD and prior history of ESBL UTI and other medical problems. Patient presented to ER with complaints of generalized weakness. Patient states that he has been having diarrhea since Monday and has been feeling weak and decreased energy. Mainly loose stools. Denies any blood in the stools. Denied hematemesis or melena. Patient did have chills but denies any fever at home. Will also complaining of nausea. Denies dysuria or hematuria. Patient was previously admitted to hospital for sepsis due to C. difficile infection. On admission Tmax 101.1, pulse 72 respiration 18 and pulse ox 97% on room air. Chest x-ray showed no acute pulmonary abnormality. Tortuosity and ectasia of the aorta., Potentially increased from prior study. EKG showed sinus rhythm Laboratory data showed WBC 7.4 hemoglobin 12.7 and platelets 200 Sodium 132 potassium 4.4 chloride 100 bicarb is 23, BUN 2020 creatinine 1.54, total bili 1.4 liver radiographs are not elevated troponin x 1 Urinalysis showed turbid with 1+ protein trace ketones moderate blood large leukocyte esterase with elevated WBCs greater than 182 Influenza AB RSV and COVID-19 PCR not detected. Objective - Vital Signs Vital signs: Vital Signs Temp 98.5 F 02/23/24 07:38 Pulse 72 02/23/24 07:38 Resp 17 02/23/24 07:38 BP 134/53 02/23/24 07:38 Pulse Ox 97 02/23/24 07:38 FiO2 Intake & Output 02/22/24 02/23/24 02/23/24 18:59 06:59 18:59 Intake Total 118 Output Total 2350 1125 Balance -[id number] Intake: Oral 118 Output: Urine 2350 1125 Other: Voiding Method Toilet Toilet Urinal Urinal # Bowel Movements 0 - Exam Patient is lying in the bed comfortably, no acute distress, awake alert and oriented.. HEENT: Normocephalic. Neck is supple. Pupils reactive. Nostrils clear. Oral cavity is moist. Neck reveals no JVD, carotid bruits, or thyromegaly. CHEST EXAMINATION: Trachea is central. Symmetrical expansion. Lung hardy clear to auscultation and percussion. CARDIAC: Normal S1, S2 with no gallops. No murmurs ABDOMEN: Soft. Bowel sounds normal. No organomegaly. No abdominal bruits. Extremities: reveal no edema. Bilateral lower extremity dry skin. No clubbing or cyanosis Neurologically awake, alert, oriented x 2-3 able to move all extremities.. No gross focal deficits noted Skin: No rash or skin lesions. Psychiatric: Coperative. Nonsuicidal Musculoskeletal: No joint swelling or deformity. Normal range of motion. - Labs CBC & Chem 7: 02/23/24 06:17 02/23/24 06:17 Labs: Abnormal Lab Results - Last 24 Hours (Table) 02/21/24 02/23/24 02/23/24 Range/Units 18:40 06:17 06:17 RBC 3.90 L (4.40-5.60) X 10*6/uL Hgb 10.3 L (13.0-17.0) g/dL Hct 33.4 L (39.6-50.0) % MCH 26.4 L (27.0-32.0) pg MCHC 30.8 L (32.0-37.0) g/dL Lymphocytes # 0.85 L (0.90-5.00) X 10*3/uL Carbon Dioxide 18.4 L (21.6-31.8) mmol/L Anion Gap 12.60 H (4.00-12.00) mmol/L Est GFR (CKD-EPI) 51 L (>=60) BUN/Creatinine Ratio 11.50 L (12.00-20.00) Ratio Calcium 8.4 L (8.7-10.3) mg/dL Tacrolimus 3.2 L (5.0-20.0) ng/mL Microbiology - Last 24 Hours (Table) 02/21/24 17:30 Blood Culture - Preliminary Blood 02/21/24 17:15 Blood Culture - Preliminary Blood Assessment and Plan Assessment: Acute urinary tract infection Acute diarrhea. Rule out C. difficile infection Mild acute kidney injury creatinine 1.57 on admission Hypovolemic hyponatremia History of liver transplant due to cryptogenic liver on immunosuppressive therapy Hypertension History of CVA/TIA with previous right-sided weakness Hypothyroidism BPH Osteoarthritis History of ESBL urinary tract infection DVT prophylaxis with heparin subcu Plan: Patient will be continued on IV hydration with normal saline. Continue antibiotics ceftriaxone follow-up urine cultures and blood cultures. Patient will be continued on immunosuppressive therapy including CellCept, Hexadrol and Prograf. Continue with Flomax and follow-up postvoid residual. C. difficile toxin will be sent with the patient is still having diarrhea Continue other home medications and PT OT will be consulted. Continue to follow closely.
[2024-02-24 09:46] LABS: BUN/Creat Ratio 13.54 Ratio (12.00-20.00); Blood Urea Nitrogen 17.6 mg/dL (9.0-27.0); Calcium 8.5 mg/dL (8.7-10.3); Carbon Dioxide 19.2 mmol/L (21.6-31.8); Chloride 107 mmol/L (96-109); Glucose 98 mg/dL (70-110); Potassium 4.6 mmol/L (3.5-5.5); Sodium 138 mmol/L (135-145)
[2024-02-24 13:43] LABS: Basophils # (A) 0.01 X 10*3/uL (0.00-0.10); Basophils % (A) 0.2 %; Eosinophils # (A) 0.19 X 10*3/uL (0.04-0.35); HCT 31.2 % (39.6-50.0); HGB 9.8 g/dL (13.0-17.0); Lymphocytes # (A) 0.94 X 10*3/uL (0.90-5.00); Lymphocytes % (A) 19.9 %; MCH 26.1 pg (27.0-32.0); MCHC 31.4 g/dL (32.0-37.0); MCV 83.2 FL (80.0-97.0); Mean Platelet Volume 10.3 FL (9.5-12.2); Monocytes # (A) 0.51 X 10*3/uL (0.20-1.00); Monocytes % (A) 10.8 %; NRBC Per 100 WBC 0 X 10*3/uL (0.00-0.01); Neutrophils # (A) 3.06 X 10*3/uL (1.80-7.70); Neutrophils % (A) 64.9 %; Platelet Count 179 X 10*3/uL (140-440); RBC 3.75 X 10*6/uL (4.40-5.60); RDW 13.2 % (11.5-14.5); WBC 4.72 X 10*3/uL (4.50-10.00)
--- NOTE | 2024-02-24 16:31 | P.PN ---
Subjective Progress Note Date: 02/24/24 78-year-old male with a past medical history of CVA/TIA, cryptogenic liver/GI dyspnea past with liver transplant currently on immunosuppressive therapy, BPH on follow-up with urology every year, osteoarthritis, hypertension, hypothyroidism and GERD and prior history of ESBL UTI and other medical problems. Patient presented to ER with complaints of generalized weakness. Patient states that he has been having diarrhea since Monday and has been feeling weak and decreased energy. Mainly loose stools. Denies any blood in the stools. Denied hematemesis or melena. Patient did have chills but denies any fever at home. Will also complaining of nausea. Denies dysuria or hematuria. Patient was previously admitted to hospital for sepsis due to C. difficile infection. On admission Tmax 101.1, pulse 72 respiration 18 and pulse ox 97% on room air. Chest x-ray showed no acute pulmonary abnormality. Tortuosity and ectasia of the aorta., Potentially increased from prior study. EKG showed sinus rhythm Laboratory data showed WBC 7.4 hemoglobin 12.7 and platelets 200 Sodium 132 potassium 4.4 chloride 100 bicarb is 23, BUN 2020 creatinine 1.54, total bili 1.4 liver radiographs are not elevated troponin x 1 Urinalysis showed turbid with 1+ protein trace ketones moderate blood large leukocyte esterase with elevated WBCs greater than 182 Influenza AB RSV and COVID-19 PCR not detected. 24-hour interval change 02/24/2024 Patient is seen and evaluated sitting up in bed; reports improvement in diarrhea Vital signs are reviewed; temperature 98.4, pulse 60, respirations 16 and blood pressure 125/54 with O2 saturation 99% Blood work reveals WBC of 4.27, hemoglobin of 9.8 and platelet count of 179, sodium 138, potassium 4.6, BUNs/creatinine of 17.6/1.30; final urine culture is pending --Patient remains on IV fluid hydration and IV ceftriaxone -- Continue current management with further recommendations once final culture and sensitivities available Objective - Vital Signs Vital signs: Vital Signs Temp 97.8 F 02/24/24 07:45 Pulse 55 L 02/24/24 07:45 Resp 15 02/24/24 07:45 BP 150/64 02/24/24 07:45 Pulse Ox 99 02/24/24 07:45 FiO2 Intake & Output 0402/24/24 02/24/24 18:59 06:59 18:59 Intake Total 0 Output Total 650 720 Balance -650 -720 Intake: Oral 0 Output: Urine 650 720 Other: Voiding Method Toilet Urinal Urinal # Voids 300 # Bowel Movements 0 - Exam Patient is lying in the bed comfortably, no acute distress, awake alert and oriented.. HEENT: Normocephalic. Neck is supple. Pupils reactive. Nostrils clear. Oral cavity is moist. Neck reveals no JVD, carotid bruits, or thyromegaly. CHEST EXAMINATION: Trachea is central. Symmetrical expansion. Lung hardy clear to auscultation and percussion. CARDIAC: Normal S1, S2 with no gallops. No murmurs ABDOMEN: Soft. Bowel sounds normal. No organomegaly. No abdominal bruits. Extremities: reveal no edema. Bilateral lower extremity dry skin. No clubbing or cyanosis Neurologically awake, alert, oriented x 2-3 able to move all extremities.. No gross focal deficits noted Skin: No rash or skin lesions. Psychiatric: Coperative. Nonsuicidal Musculoskeletal: No joint swelling or deformity. Normal range of motion. - Labs CBC & Chem 7: 02/24/24 04:53 02/24/24 04:53 Labs: Abnormal Lab Results - Last 24 Hours (Table) 02/24/24 Range/Units 04:53 Carbon Dioxide 19.2 L (21.6-31.8) mmol/L Est GFR (CKD-EPI) 56 L (>=60) Calcium 8.5 L (8.7-10.3) mg/dL Microbiology - Last 24 Hours (Table) 02/21/24 17:30 Blood Culture - Preliminary Blood 02/21/24 17:15 Blood Culture - Preliminary Blood Assessment and Plan Assessment: Acute urinary tract infection Acute diarrhea. Rule out C. difficile infection Mild acute kidney injury creatinine 1.57 on admission Hypovolemic hyponatremia History of liver transplant due to cryptogenic liver on immunosuppressive therapy Hypertension History of CVA/TIA with previous right-sided weakness Hypothyroidism BPH Osteoarthritis History of ESBL urinary tract infection DVT prophylaxis with heparin subcu Plan: Patient will be continued on IV hydration with normal saline. Continue antibiotics ceftriaxone follow-up urine cultures and blood cultures. Patient will be continued on immunosuppressive therapy including CellCept, Hexadrol and Prograf. Continue with Flomax and follow-up postvoid residual. C. difficile toxin will be sent with the patient is still having diarrhea Continue other home medications and PT OT will be consulted. Continue to follow closely.
[2024-02-25 09:58] LABS: BUN/Creat Ratio 10.64 Ratio (12.00-20.00); Blood Urea Nitrogen 14.9 mg/dL (9.0-27.0); Calcium 8.4 mg/dL (8.7-10.3); Carbon Dioxide 19.6 mmol/L (21.6-31.8); Chloride 110 mmol/L (96-109); Glucose 95 mg/dL (70-110); Sodium 139 mmol/L (135-145)
[2024-02-25 15:58] VITALS: BP 136/64; PULSE 63; RESP 16; TEMP 97.9
== END 2024-02-25 15:40 | disposition home or self-care (01) ==
LOC: EC 16:46 → 6NMEDSUR 23:18
PROVIDERS: ADMIT Hospitalist; ATTEND Hospitalist
DX: N39.0 Urinary tract infection, site not specified (principal); R53.1 Weakness; Z86.73 Personal history of transient ischemic attack (TIA), and cerebral infarction without residual deficits; Z94.0 Kidney transplant status; I10 Essential (primary) hypertension; E03.9 Hypothyroidism, unspecified; N40.0 Benign prostatic hyperplasia without lower urinary tract symptoms; R19.7 Diarrhea, unspecified; N17.9 Acute kidney failure, unspecified; E87.1 Hypo-osmolality and hyponatremia
CPT/HCPCS: 96361 ×4; 96365; 96366; 96372 ×7; 96375; 99285; 36415; 93005; 97162; 80053; 80048 ×4; 80197; 83605; 83735 ×2; 84100; 84484; 85025 ×4; 85610; 85730; 81001; 87040; 87636; 71046; G0378 ×5; J8540 ×4; J1644 ×4; J0696 ×5; J7517 ×4

== ENCOUNTER → 2024-07-18 | Outpatient (CLI) | payer MEDICARE, BC ==
[2024-07-18 18:32] LABS: Basophils # (A) 0.02 X 10*3/uL (0.00-0.10); Basophils % (A) 0.3 %; Eosinophils # (A) 0.14 X 10*3/uL (0.04-0.35); Eosinophils % (A) 2.1 %; HCT 40.4 % (39.6-50.0); HGB 12.4 g/dL (13.0-17.0); Lymphocytes # (A) 1.49 X 10*3/uL (0.90-5.00); MCHC 30.7 g/dL (32.0-37.0); MCV 84.7 FL (80.0-97.0); Mean Platelet Volume 9.5 FL (9.5-12.2); Monocytes # (A) 0.65 X 10*3/uL (0.20-1.00); Monocytes % (A) 9.6 %; NRBC Per 100 WBC 0 X 10*3/uL (0.00-0.01); Neutrophils # (A) 4.45 X 10*3/uL (1.80-7.70); Neutrophils % (A) 65.7 %; Platelet Count 193 X 10*3/uL (140-440); RBC 4.77 X 10*6/uL (4.40-5.60); WBC 6.77 X 10*3/uL (4.50-10.00)
[2024-07-18 18:51] LABS: Appearance,Urine Clear (Clear); Bilirubin,Urine Negative (Negative); Blood,Urine Negative (Negative); Color,Urine Yellow (Yellow); Ketones,Urine Negative (Negative); Nitrite,Urine Negative (Negative); Specific Gravity,Urine 1.008 (1.001-1.030); Urobilinogen,Urine 0.2 E.U./DL
[2024-07-18 18:56] LABS: Bacteria,Urine None Seen (None Seen)
[2024-07-18 18:59] LABS: Iron 158 UG/DL (65-175); Magnesium 1.8 mg/dL (1.5-2.4); Phosphorus 3.2 mg/dL (2.4-5.1); Total Iron Binding Capacity 305 UG/DL (228-460); Uric Acid 6.9 mg/dL (3.7-8.7)
[2024-07-18 19:02] LABS: Albumin 4.1 g/dL (3.8-4.9); BUN/Creat Ratio 13.47 Ratio (12.00-20.00); Blood Urea Nitrogen 20.2 mg/dL (9.0-27.0); Calcium 9.3 mg/dL (8.7-10.3); Carbon Dioxide 21.5 mmol/L (21.6-31.8); Chloride 104 mmol/L (96-109); Glucose 90 mg/dL (70-110); Potassium 5.3 mmol/L (3.5-5.5); Sodium 138 mmol/L (135-145)
[2024-07-18 19:50] LABS: Microalbumin Creatinine Ratio <26 mg/g Cr (0-30); Urine Creatinine 45.9 mg/dL (39.0-259.0)
== END | disposition home or self-care (01) ==
LOC: LABWHC1 12:35
PROVIDERS: ATTEND Internal Medicine Nephrology
DX: N18.30 Chronic kidney disease, stage 3 unspecified
CPT/HCPCS: 36415; 80048; 81001; 82040; 82043; 82306; 82570; 82728; 83540; 83550; 83735; 83970; 84100; 84550; 85025

== ENCOUNTER 2024-10-13 14:07 | Inpatient (IN) | payer MEDICARE, BC ==
[2024-10-13] MEDS: ACETAMINOPHEN TAB 500 MG TAB PO STA (14:41)
--- NOTE | 2024-10-13 14:45 | ED ---
Weakness HPI - General Chief complaint: Weakness Stated complaint: Weakness Time Seen by Provider: 10/13/24 14:22 Source: patient, RN notes reviewed Mode of arrival: wheelchair Limitations: no limitations - History of Present Illness Initial comments: This is a 78-year-old male who presents to the emergency department for weakness. He reports increasing weakness and loss of appetite over the last month. He has also had diarrhea and states that he is unable to make it to the restroom. Denies any associated nausea, vomiting, or abdominal pain. Family states that he is on immunosuppressants from a liver transplant about 20 years ago. At least once a year he tends to get some kind of infection causing him to present like this. While the patient is noted to be febrile here, family was unaware of any fevers at home. Denies any URI symptoms or chest pain. He does report some shortness of breath. MD Complaint: generalized weakness - Related Data Home Medications Medication Instructions Recorded Confirmed Tamsulosin [Flomax] 0.4 mg PO HS 07/20/15 10/13/24 Metoprolol Succinate [Toprol XL] 50 mg PO DAILY 11/29/22 10/13/24 Tacrolimus [Prograf] 0.5 mg PO BID 02/08/23 10/13/24 Clopidogrel [Plavix] 75 mg PO DAILY 05/17/23 10/13/24 Latanoprost Ophth [Xalatan 0.005%] 1 drop BOTH EYES HS 09/18/23 10/13/24 mycophenolate mofetiL [Cellcept] 1,000 mg PO BID 09/18/23 10/13/24 Pravastatin Sodium [Pravachol] 10 mg PO HS 02/21/24 10/13/24 Allergies Allergy/AdvReac Type Severity Reaction Status Date / Time No Known Allergies Allergy Verified 10/13/24 18:35 Review of Systems ROS Statement: Those systems with pertinent positive or pertinent negative responses have been documented in the HPI. ROS Other: All systems not noted in ROS Statement are negative. 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 Past Anesthesia/Blood Transfusion Reactions: No Reported Reaction Additional Past Anesthesia/Blood Transfusion Reaction / Comment(s): Pt received blood in past without reaction. hx jaw fx- had surgery and has a plate. a little confusion when first waking up Past Psychological History: No Psychological Hx Reported Smoking Status: Never smoker Past Alcohol Use History: None Reported Past Drug Use History: None Reported - Past Family History Father Family Medical History: Cancer Additional Family Medical History / Comment(s): Father was healthy. He around the age of 83 yrs. Mother Family Medical History: Myocardial Infarction (NV) Additional Family Medical History / Comment(s): Mother of a NV at the age of 83 yrs. General Exam Limitations: no limitations General appearance: alert, in no apparent distress Head exam: Present: atraumatic, normocephalic, normal inspection Respiratory exam: Present: normal lung sounds bilaterally. Absent: respiratory distress, wheezes, rales, rhonchi, stridor Cardiovascular Exam: Present: regular rate, normal rhythm, normal heart sounds. Absent: systolic murmur, diastolic murmur, rubs, gallop, clicks Neurological exam: Present: alert, oriented X3, CN II-XII intact Psychiatric exam: Present: normal affect, normal mood Skin exam: Present: warm, dry, intact, normal color. Absent: rash Course Vital Signs 10/13/24 10/13/24 10/13/24 14:12 16:00 18:07 Temperature 101.6 F H Pulse Rate 76 80 82 Pulse Rate [ Pulse Oximetery ] Respiratory 20 18 18 Rate Blood Pressure 164/75 124/40 126/47 Blood Pressure [Left Arm] O2 Sat by Pulse 98 97 95 Oximetry 10/13/24 10/13/24 10/13/24 19:17 20:00 21:00 Temperature Pulse Rate 80 86 89 Pulse Rate [ Pulse Oximetery ] Respiratory 18 18 18 Rate Blood Pressure 120/51 132/54 133/49 Blood Pressure [Left Arm] O2 Sat by Pulse 97 96 97 Oximetry 10/13/24 10/13/24 10/14/24 22:00 23:00 01:16 Temperature Pulse Rate 82 90 90 Pulse Rate [ Pulse Oximetery ] Respiratory 18 18 18 Rate Blood Pressure 139/60 129/54 140/70 Blood Pressure [Left Arm] O2 Sat by Pulse 94 L 96 98 Oximetry 10/14/24 10/14/24 10/14/24 03:05 03:35 05:00 Temperature 103.1 F H 98.9 F Pulse Rate 107 H 103 H Pulse Rate [ Pulse Oximetery ] Respiratory 18 18 Rate Blood Pressure 116/45 117/49 Blood Pressure [Left Arm] O2 Sat by Pulse 95 98 Oximetry 10/14/24 10/14/24 06:03 08:00 Temperature 98.5 F Pulse Rate 93 Pulse Rate [ 87 Pulse Oximetery ] Respiratory 18 17 Rate Blood Pressure 107/50 Blood Pressure 125/64 [Left Arm] O2 Sat by Pulse 95 95 Oximetry Medical Decision Making - Medical Decision Making This is a 78-year-old male who presents to the emergency department for weakness. Was pt. sent in by a medical professional or institution? @ -No Did you speak to anyone other than the patient for history? @ -No Did you review nursing and triage notes? @ -Yes, and I agree, it is accurate with regards to the patient's symptoms. Were old charts reviewed? @ -No Differential Diagnosis? @ -Differential Weakness: Hypoglycemia, shock, sepsis, hyponatremia, anemia, infection, NV, ETOH, adverse medicine reaction, overdose, stroke, this is not meant to be an all-inclusive list. EKG interpreted by me (3pts min.)? @ -EKG interpreted by me demonstrating the following: Sinus rhythm. Ventricular rate 78 bpm, LA interval 203 ms, QRS duration 124 ms, QTc 418 ms. X-rays interpreted by me (1pt min.)? @ -Chest x-ray obtained. My interpretation identifies bilateral interstitial opacities. CT interpreted by me (1pt min.)? @ -CT scan of the chest obtained. My interpretation identifies interstitial airspace opacities. U/S interpreted by me (1pt. min.)? @ -Not obtained What testing was considered but not performed? (CT, X-rays, U/S, labs)? Why? @ -None What meds were considered but not given? Why? @ -None Did you discuss the management of the patient with other professionals? @ -Yes, Evita Melo with [facility], who accepts the patient for admission. Did you reconcile home meds? @ -No Was smoking cessation discussed for >3mins.? @ -No Was critical care preformed (if so, how long)? @ -No Were there social determinants of health that impacted care today? How? (Homelessness, low income, unemployed, alcoholism, drug addiction, transportation, low edu. Level, literacy, decrease access to med. care, fdc, re hab)? @ -No Was there de-escalation of care discussed even if they declined? (Discuss DNR or withdrawal of care, Hospice)? @ -No What co-morbidities impacted this encounter? (DM, HTN, Smoking, COPD, CAD, Cancer, CVA, Hep., AIDS, mental health diagnosis, sleep apnea, morbid obesity)? @ -Hx of liver disease, HTN Was patient admitted / discharged? @ -Admitted. Lab work demonstrates hyponatremia with sodium of 129 and signs of dehydration. Lab work otherwise unremarkable. COVID, influenza, and RSV testing negative. Urinalysis suggestive of infection and urine was sent for culture. Chest x-ray demonstrates cardiomegaly and possible mild pulmonary vascular congestive changes versus atypical infectious etiology. BNP only 497. We proceeded with a CT scan of the chest to better evaluate questionable i nfectious process. This demonstrates interstitial and airspace opacities, most pronounced in the left lower lobe with associated tree-in-bud nodularity felt to most likely reflect infectious etiology. He was subsequently started on the pneumonia protocol with ceftriaxone and azithromycin. Blood and sputum cultures obtained. The ceftriaxone will also cover for the UTI. Given patient's immunocompromised state and progressive weakness, he was admitted to medicine for further management. Consult placed for infectious disease. Case discussed with ED attending Dr. Barron. Undiagnosed new problem with uncertain prognosis? @ -None Drug Therapy requiring intensive monitoring for toxicity (Heparin, Nitro, Insulin, Cardizem)? @ -None Were any procedures done? @ -None Diagnosis/symptom? @ -Pneumonia, UTI, weakness, immunocompromised state Acute, or Chronic, or Acute on Chronic? @ -Acute Uncomplicated (without systemic symptoms) or Complicated (systemic symptoms)? @ -Complicated Side effects of treatment? @ -None Exacerbation, Progression, or Severe Exacerbation] @ -Not applicable Poses a threat to life or bodily function? @ -Yes - Lab Data Result diagrams: 10/13/24 15:00 10/13/24 15:00 Lab Results 10/13/24 10/13/24 10/13/24 Range/Units 15:00 15:00 15:00 WBC 4.8 (3.8-10.6) k/uL RBC 5.03 (4.30-5.90) m/uL Hgb 13.3 (13.0-17.5) gm/dL Hct 41.7 (39.0-53.0) % MCV 82.9 (80.0-100.0) fL MCH 26.4 (25.0-35.0) pg MCHC 31.9 (31.0-37.0) g/dL RDW 13.6 (11.5-15.5) % Plt Count 199 (150-450) k/uL MPV 7.4 Neutrophils % 66 % Lymphocytes % 18 % Monocytes % 6 % Eosinophils % 7 % Basophils % 0 % Neutrophils # 3.2 (1.3-7.7) k/uL Lymphocytes # 0.9 L (1.0-4.8) k/uL Monocytes # 0.3 (0-1.0) k/uL Eosinophils # 0.4 (0-0.7) k/uL Basophils # 0.0 (0-0.2) k/uL PT 11.6 (10.0-12.5) sec INR 1.1 (<1.2) APTT 21.2 L (22.0-30.0) sec Sodium 129 L (137-145) mmol/L Potassium 5.0 (3.5-5.1) mmol/L Chloride 99 (98-107) mmol/L Carbon Dioxide 22 (22-30) mmol/L Anion Gap 8 mmol/L BUN 29 H (9-20) mg/dL Creatinine 1.76 H (0.66-1.25) mg/dL Est GFR (CKD-EPI)AfAm 42 (>60 ml/min/1.73 sqM) Est GFR (CKD-EPI)NonAf 36 (>60 ml/min/1.73 sqM) Glucose 80 (74-99) mg/dL Plasma Lactic Acid Angelo (0.7-2.0) mmol/L Calcium 8.7 (8.4-10.2) mg/dL Magnesium 1.6 (1.6-2.3) mg/dL Total Bilirubin 1.2 (0.2-1.3) mg/dL AST 46 (17-59) U/L ALT 20 (4-49) U/L Alkaline Phosphatase 77 (38-126) U/L Troponin I (0.000-0.034) ng/mL NT-Pro-B Natriuret Pep pg/mL Total Protein 6.6 (6.3-8.2) g/dL Albumin 3.9 (3.5-5.0) g/dL Urine Color Urine Appearance (Clear) Urine pH (5.0-8.0) Ur Specific [place] (1.001-1.035) Urine Protein (Negative) Urine Glucose (UA) (Negative) Urine Ketones (Negative) Urine Blood (Negative) Urine Nitrite (Negative) Urine Bilirubin (Negative) Urine Urobilinogen (<2.0) mg/dL Ur Leukocyte Esterase (Negative) Urine RBC (0-5) /hpf Urine WBC (0-5) /hpf Urine WBC Clumps (None) /hpf Ur Squamous Epith Cells (0-4) /hpf Urine Bacteria (None) /hpf Urine Mucus (None) /hpf Influenza Type A (PCR) (Not Detectd) Influenza Type B (PCR) (Not Detectd) Urine Legionella Ag (Negative) RSV (PCR) (Not Detectd) SARS-CoV-2 (PCR) (Not Detectd) 10/13/24 10/13/24 10/13/24 Range/Units 15:00 15:00 15:00 WBC (3.8-10.6) k/uL RBC (4.30-5.90) m/uL Hgb (13.0-17.5) gm/dL Hct (39.0-53.0) % MCV (80.0-100.0) fL MCH (25.0-35.0) pg MCHC (31.0-37.0) g/dL RDW (11.5-15.5) % Plt Count (150-450) k/uL MPV Neutrophils % % Lymphocytes % % Monocytes % % Eosinophils % % Basophils % % Neutrophils # (1.3-7.7) k/uL Lymphocytes # (1.0-4.8) k/uL Monocytes # (0-1.0) k/uL Eosinophils # (0-0.7) k/uL Basophils # (0-0.2) k/uL PT (10.0-12.5) sec INR (<1.2) APTT (22.0-30.0) sec Sodium (137-145) mmol/L Potassium (3.5-5.1) mmol/L Chloride (98-107) mmol/L Carbon Dioxide (22-30) mmol/L Anion Gap mmol/L BUN (9-20) mg/dL Creatinine (0.66-1.25) mg/dL Est GFR (CKD-EPI)AfAm (>60 ml/min/1.73 sqM) Est GFR (CKD-EPI)NonAf (>60 ml/min/1.73 sqM) Glucose (74-99) mg/dL Plasma Lactic Acid Angelo 1.5 (0.7-2.0) mmol/L Calcium (8.4-10.2) mg/dL Magnesium (1.6-2.3) mg/dL Total Bilirubin (0.2-1.3) mg/dL AST (17-59) U/L ALT (4-49) U/L Alkaline Phosphatase (38-126) U/L Troponin I 0.014 (0.000-0.034) ng/mL NT-Pro-B Natriuret Pep 497 pg/mL Total Protein (6.3-8.2) g/dL Albumin (3.5-5.0) g/dL Urine Color Urine Appearance (Clear) Urine pH (5.0-8.0) Ur Specific [place] (1.001-1.035) Urine Protein (Negative) Urine Glucose (UA) (Negative) Urine Ketones (Negative) Urine Blood (Negative) Urine Nitrite (Negative) Urine Bilirubin (Negative) Urine Urobilinogen (<2.0) mg/dL Ur Leukocyte Esterase (Negative) Urine RBC (0-5) /hpf Urine WBC (0-5) /hpf Urine WBC Clumps (None) /hpf Ur Squamous Epith Cells (0-4) /hpf Urine Bacteria (None) /hpf Urine Mucus (None) /hpf Influenza Type A (PCR) (Not Detectd) Influenza Type B (PCR) (Not Detectd) Urine Legionella Ag (Negative) RSV (PCR) (Not Detectd) SARS-CoV-2 (PCR) (Not Detectd) 10/13/24 10/13/24 10/13/24 Range/Units 15:55 17:08 17:08 WBC (3.8-10.6) k/uL RBC (4.30-5.90) m/uL Hgb (13.0-17.5) gm/dL Hct (39.0-53.0) % MCV (80.0-100.0) fL MCH (25.0-35.0) pg MCHC (31.0-37.0) g/dL RDW (11.5-15.5) % Plt Count (150-450) k/uL MPV Neutrophils % % Lymphocytes % % Monocytes % % Eosinophils % % Basophils % % Neutrophils # (1.3-7.7) k/uL Lymphocytes # (1.0-4.8) k/uL Monocytes # (0-1.0) k/uL Eosinophils # (0-0.7) k/uL Basophils # (0-0.2) k/uL PT (10.0-12.5) sec INR (<1.2) APTT (22.0-30.0) sec Sodium (137-145) mmol/L Potassium (3.5-5.1) mmol/L Chloride (98-107) mmol/L Carbon Dioxide (22-30) mmol/L Anion Gap mmol/L BUN (9-20) mg/dL Creatinine (0.66-1.25) mg/dL Est GFR (CKD-EPI)AfAm (>60 ml/min/1.73 sqM) Est GFR (CKD-EPI)NonAf (>60 ml/min/1.73 sqM) Glucose (74-99) mg/dL Plasma Lactic Acid Angelo (0.7-2.0) mmol/L Calcium (8.4-10.2) mg/dL Magnesium (1.6-2.3) mg/dL Total Bilirubin (0.2-1.3) mg/dL AST (17-59) U/L ALT (4-49) U/L Alkaline Phosphatase (38-126) U/L Troponin I (0.000-0.034) ng/mL NT-Pro-B Natriuret Pep pg/mL Total Protein (6.3-8.2) g/dL Albumin (3.5-5.0) g/dL Urine Color Yellow Urine Appearance Cloudy (Clear) Urine pH 5.5 (5.0-8.0) Ur Specific [place] 1.018 (1.001-1.035) Urine Protein Trace H (Negative) Urine Glucose (UA) Negative (Negative) Urine Ketones Negative (Negative) Urine Blood Moderate H (Negative) Urine Nitrite Negative (Negative) Urine Bilirubin Negative (Negative) Urine Urobilinogen <2.0 (<2.0) mg/dL Ur Leukocyte Esterase Large H (Negative) Urine RBC 10 H (0-5) /hpf Urine WBC >182 H (0-5) /hpf Urine WBC Clumps Few H (None) /hpf Ur Squamous Epith Cells 3 (0-4) /hpf Urine Bacteria Rare H (None) /hpf Urine Mucus Rare H (None) /hpf Influenza Type A (PCR) Not Detected (Not Detectd) Influenza Type B (PCR) Not Detected (Not Detectd) Urine Legionella Ag Negative (Negative) RSV (PCR) Not Detected (Not Detectd) SARS-CoV-2 (PCR) Not Detected (Not Detectd) - Radiology Data Radiology results: report reviewed, image reviewed Disposition Clinical Impression: Pneumonia, Immunocompromised state, Weakness, UTI (urinary tract infection) Disposition: ADMITTED IP TO THIS HOSP
--- NOTE | 2024-10-13 15:17 | XR ---
EXAMINATION TYPE: XR chest 2V DATE OF EXAM: 10/13/2024 3:11 PM COMPARISON: Previous chest radiograph 02/21/2024. CLINICAL INDICATION: Male, 78 years old with history of Weakness; PHH TECHNIQUE: XR chest 2V Frontal and lateral views of the chest. FINDINGS: Mild cardiomegaly. Tortuosity of the thoracic aorta again noted. Asymmetric elevation and focal eventration of the left hemidiaphragm. Patchy interstitial opacities bilaterally. No sizable pleural effusion. No acute osseous abnormality. IMPRESSION: Cardiomegaly and possible mild pulmonary vascular congestive changes versus atypical infectious etiol ogy. [facility], , 10/13/2024 3:15 PM
[2024-10-13 15:36] LABS: ALT 20 U/L (4-49); African American GFR (CKD) 42 (>60 ml/min/1.73 sqM); Anion Gap 8 mmol/L; Blood Urea Nitrogen 29 mg/dL (9-20); Calcium 8.7 mg/dL (8.4-10.2); Carbon Dioxide 22 mmol/L (22-30); Chloride 99 mmol/L (98-107); Glucose 80 mg/dL (74-99); Non-African American GFR(CKD) 36 (>60 ml/min/1.73 sqM); Sodium 129 mmol/L (137-145); Total Bilirubin 1.2 mg/dL (0.2-1.3)
[2024-10-13 15:46] LABS: Basophils % (A) 0 %; Eosinophils # (A) 0.4 k/uL (0-0.7); Eosinophils % (A) 7 %; HCT 41.7 % (39.0-53.0); HGB 13.3 gm/dL (13.0-17.5); Lymphocytes # (A) 0.9 k/uL (1.0-4.8); Lymphocytes % (A) 18 %; MCH 26.4 pg (25.0-35.0); MCHC 31.9 g/dL (31.0-37.0); MCV 82.9 fL (80.0-100.0); Mean Platelet Volume 7.4; Monocytes # (A) 0.3 k/uL (0-1.0); Monocytes % (A) 6 %; Neutrophils # (A) 3.2 k/uL (1.3-7.7); Neutrophils % (A) 66 %; Platelet Count 199 k/uL (150-450); RBC 5.03 m/uL (4.30-5.90); RDW 13.6 % (11.5-15.5); WBC 4.8 k/uL (3.8-10.6)
[2024-10-13 15:51] LABS: AST 46 U/L (17-59); Albumin 3.9 g/dL (3.5-5.0); Alkaline Phosphatase 77 U/L (38-126); Magnesium 1.6 mg/dL (1.6-2.3); Total Protein 6.6 g/dL (6.3-8.2)
[2024-10-13 16:07] LABS: INR 1.1 (<1.2); Prothrombin Time 11.6 sec (10.0-12.5)
[2024-10-13 16:09] LABS: Partial Thromboplastin Time 21.2 sec (22.0-30.0)
[2024-10-13] MEDS: SODIUM CHLORIDE 0.9% 1,000 ML IV STA (16:21)
--- NOTE | 2024-10-13 16:59 | CT ---
EXAMINATION TYPE: CT chest wo con DATE OF EXAM: 10/13/2024 4:48 PM COMPARISON: Previous chest radiograph, most recently dated 10/13/2004. CLINICAL INDICATION: Male, 78 years old with history of Fever, abnormal chest x-ray; PHH, fever, abno rmal cxr TECHNIQUE: Multiple axial images were obtained through the chest. Sagittal and coronal reformats were created for review. MIP was performed on a separate workstation. CT DLP: 392 mGycm, Automated exposure control for dose reduction was used. FINDINGS: Heart size within normal limits. No significant pericardial effusion. Calcified atherosclerotic disea se of the thoracic aorta without aneurysmal dilatation. Mildly prominent mediastinal lymph nodes with largest subcarinal node measuring 13 mm in short axis. Right hilar calcified nodes likely reflecting sequelae of previous granulomatous disease. Partially visualized thyroid gland is unremarkable. No p athologic axillary lymphadenopathy. Imaging through the lungs demonstrates patchy groundglass interstitial opacities. Additionally, there is a spiculated region of nodularity in the left lower lobe measuring 2.0 cm (series 3 image 95). Th ere is surrounding tree in bud nodularity in this region. No pleural effusion or pneumothorax. Partially visualized upper abdomen demonstrates pneumobilia and possible previous hepatic transplant. Innumerable renal cysts bilaterally. Chronic compression deformities of the partially visualized L2 and T12 vertebral bodies, similar prior studies. Osseous structures demineralized. Multilevel thoraci c spine degenerative changes. IMPRESSION: Interstitial and airspace opacities, most pronounced in the left lower lobe with associated tree-in-b ud nodularity felt to most likely reflect infectious etiology. However, solid 2.0 cm region of nodula rity in the left lower lobe is technically indeterminate and follow-up outpatient CT chest in 3 month s is recommended to exclude other etiologies. [facility], , 10/13/2024 4:57 PM
[2024-10-13] MEDS ORDERED: PNEUMONIA PROTOCOL UTILIZED 1 EACH MISC PO PRN (17:00)
[2024-10-13] MEDS ORDERED: NALOXONE 0.4 MG/ML 1 ML VIAL IV PRN (17:15)
[2024-10-13] MEDS ORDERED: MORPHINE SULFATE 4 MG/ML SYRINGE IV PRN (17:15)
[2024-10-13 17:40] LABS: Appearance,Urine Cloudy (Clear); Bilirubin,Urine Negative (Negative); Blood,Urine Moderate (Negative); Color,Urine Yellow; Glucose,Urine (UA) Negative (Negative); Ketones,Urine Negative (Negative); Leukocyte Esterase,Urine Large (Negative); Nitrite,Urine Negative (Negative); PH, Urine 5.5 (5.0-8.0); Protein,Urine Trace (Negative); Specific Gravity,Urine 1.018 (1.001-1.035); Urobilinogen,Urine <2.0 mg/dL (<2.0)
[2024-10-13] MEDS: AZITHROMYCIN 500 MG in SODIUM CHLORIDE 0.9% 250 ML IVPB STA (17:40)
[2024-10-13 17:41] LABS: Bacteria,Urine Rare /hpf; Mucus,Urine Rare /hpf; RBC,Urine 10 /hpf (0-5); Squamous Epithelial Cell,Urine 3 /hpf (0-4); WBC,Urine >182 /hpf (0-5)
[2024-10-14] MEDS: ONDANSETRON 4 MG/2 ML VIAL IVP PRN (01:14)
[2024-10-14] MEDS: ACETAMINOPHEN TAB 325 MG TAB PO PRN (03:43)
[2024-10-14] MEDS: CLOPIDOGREL 75 MG TAB PO SCH (09:10)
[2024-10-14] MEDS: ENOXAPARIN 40 MG/0.4 ML SYRINGE SQ SCH (09:10)
[2024-10-14] MEDS: PANTOPRAZOLE 40 MG/10 ML VIAL IV SCH (09:11)
[2024-10-14] MEDS: AZITHROMYCIN 500 MG TAB PO SCH (09:11)
[2024-10-14] MEDS: METOPROLOL SUCCINATE (ER) 50 MG TAB.ER.24H PO SCH (09:11)
[2024-10-14] MEDS: TACROLIMUS 0.5 MG CAP PO SCH (09:11)
[2024-10-14] MEDS: SODIUM CHLORIDE 0.9% 1,000 ML IV SCH (09:16)
--- NOTE | 2024-10-14 16:50 | US ---
EXAMINATION TYPE: US kidneys/renal and bladder DATE OF EXAM: 10/14/2024 COMPARISON: UA(01/06/2022) CLINICAL INDICATION: Male, 78 years old with history of B[place]; TECHNIQUE: Grayscale imaging of the bilateral kidneys and urinary bladder: FINDINGS: EXAM MEASUREMENTS: Right Kidney: 11.6x5.9x5.0 cm Left Kidney: 10.3x4.5x3.8 cm limited exam due to pt unable to roll Right Kidney: Multiple anechoic areas seen, Largest: 5.3x3.8x5.0cm Left Kidney: Multiple anechoic areas seen, Largest: 3.8x3.3x3.7cm Bladder: Irregular wall, ?thickened: 0.8cm Bilateral Jets seen: Rt only ? Prominent Prostate: 4.0x3.1x3.2cm IMPRESSION: 1. Thickened urinary bladder wall correlate with urinalysis for cystitis. 2. Prostatomegaly correlate with serum PSA. 3. No evidence for obstructive uropathy. 4. Bilateral renal cysts. [facility], , 10/14/2024 4:48 PM
--- NOTE | 2024-10-14 17:43 | P.HPIM ---
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 Patient states that over the last month he has progressive weakness and loss of appetite. He also states he has had multiple episodes of fecal incontinence during the last week. He does have a similar presentation of weakness 1 year ago where he had infection. He also endorses that he vomited several times last night. He is on immune suppressants from previous liver transplant 20 years ago. Currently he endorses fever, weakness, cough, nausea, diarrhea. Cough is infrequent without sputum production. He also states he has some left-sided flank pain, particularly when moving. He denies chest pain, palpitation, shortness of breath, abdominal pain, dysuria. Vitals initial temperature 101.6 with Tmax 103.1. Labs performed ER are significant for WBC is WNL, sodium 129, potassium 5.0, bicarb 22, BUN 29, creatinine 1.76, glucose 80, initial troponin 0.014, CRP 19.6, procalcitonin 0.24, UA significant for trace protein, blood moderate, leukocyte esterase large, WBC > 182, respiratory panel negative. EKG done in the ER independently interpreted showed sinus rhythm, heart rate of 78, no ST segment elevation or depression seen, no T-wave inversions seen. Chest x-ray done independently interpreted in the ER showed cardiomegaly and possible mild pulmonary vascular congestion versus atypical infectious etiology CT chest done independently interpreted showed interstitial and airway opacities most pronounced in left lower lobe with associated tree-in-bud nodularity, likely infectious etiology. Solid 2.0 cm region nodularity in left lower lobe is technically indeterminate. Spoke with the ER physician, patient admission was accepted by internal medicine service for treatment. REVIEW OF SYSTEMS: Pertinent positives and negatives noted in HPI. PHYSICAL EXAMINATION: Vitals reviewed GENERAL: No acute distress. Well developed, well nourished. HEENT: Pupils are round and equally reacting to light. EOMI. No scleral icterus. Normocephalic, atraumatic. No pharyngeal erythema. No thyromegaly. CARDIOVASCULAR: S1 and S2 present. No murmurs, rubs, or gallops. PULMONARY: Chest is clear to auscultation, no wheezing, rhonchi, or crackles. ABDOMEN: Soft, right flank tenderness, nondistended, normoactive bowel sounds. No palpable organomegaly. MUSCULOSKELETAL: No apparent joint swelling and deformities. EXTREMITIES: No apparent cyanosis, clubbing, or pedal edema. NEUROLOGICAL: The patient is alert and oriented x3, Gross neurological examination did not reveal any focal deficits. SKIN: No apparent rashes. 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 #Weakness #Possible pneumonia #Diarrhea - Pending blood, stool and sputum cultures - Pending legionella, procalcitonin negative Pending C. difficile - COVID, influenza and RSV are negative - monitor daily CBC, CMP - CT chest findings left lower lobe interstitial and airway opacities, with indeterminate 2 cm nodularity - begin IV Ceftriaxone 2g qd and IV Azithromycin 500 mg qd day #1 - begin IV fluids - discussed smoking cessation and PVC13 vaccine - encourage incentive spirometry ID consulted # Acute kidney injury, non-oliguric due to dehydration #UTI Initial BUN 29, creatinine 1.76 - monitor urine output - continue IV fluids - UA significant for elevated leukocyte esterase - Urine cultures pending Antibiotics as above - hold JD inhibitor and avoid nephrotoxic medications (NSAIDs, contrast, SGLT2, diuretics) #Hyponatremia Initial sodium 129 Begin IV fluids Chronic Medical Conditions #History of liver transplant Resume home immunosuppressive #A-fib - Resume home Eliquis, Metoprolol #Hyperlidemia - Resume home medication #BPH - Resume home Tamsulosin F: IV Normal saline 75 mL/hr E: Replete as needed N: Regular diet DVT ppx: Subq Lovenox 40 meq daily Code status: Full code Anticipated discharge place: Home Anticipated discharge time: 2 to 3 days Dictation was produced using [employer] dictation software. Please excuse any grammatical, word or spelling errors. Past Medical History Past Medical History: CVA/TIA, GERD/Reflux, Hypertension, Liver Disease, Osteoarthritis (OA), Prostate Disorder, Syncope, Thyroid Disorder Additional Past Medical History / Comment(s): Cryptogenic liver/jaundice in past with 2 past liver transplants, BPH, kidney problems prior to liver transplant-no current problems, past jaw fx with sx, February 2017-had episode with rt sided weakness and a fall-has no current effects, had episode of frequent PVC's, "thin skin" History of Any Multi-Drug Resistant Organisms: ESBL, MRSA Date of last positivie culture/infection: 09/18/23 MRSA; 08/23/22 ESBL MDRO Source:: Right Leg-MRSA; Blood-ESBL Additional Past Surgical History / Comment(s): 1999 liver transplant, 2003 liver transplant, 2007 plate in jaw from fx, bilateral cataract removal with lens, colonoscopy. Past Anesthesia/Blood Transfusion Reactions: No Reported Reaction Additional Past Anesthesia/Blood Transfusion Reaction / Comment(s): Pt received blood in past without reaction. hx jaw fx- had surgery and has a plate. a little confusion when first waking up Past Psychological History: No Psychological Hx Reported Smoking Status: Never smoker Past Alcohol Use History: None Reported Past Drug Use History: None Reported - Past Family History Father Family Medical History: Cancer Additional Family Medical History / Comment(s): Father was healthy. He around the age of 83 yrs. Mother Family Medical History: Myocardial Infarction ([place]) Additional Family Medical History / Comment(s): Mother of a ME at the age of 83 yrs. Medications and Allergies Home Medications Medication Instructions Recorded Confirmed Type Tamsulosin [Flomax] 0.4 mg PO HS 07/20/15 10/13/24 History Metoprolol Succinate [Toprol XL] 50 mg PO DAILY 11/29/22 10/13/24 History Tacrolimus [Prograf] 0.5 mg PO BID 02/08/23 10/13/24 History Clopidogrel [Plavix] 75 mg PO DAILY 05/17/23 10/13/24 History Latanoprost Ophth [Xalatan 0.005%] 1 drop BOTH EYES HS 09/18/23 10/13/24 History mycophenolate mofetiL [Cellcept] 1,000 mg PO BID 09/18/23 10/13/24 History Pravastatin Sodium [Pravachol] 10 mg PO HS 02/21/24 10/13/24 History Allergies Allergy/AdvReac Type Severity Reaction Status Date / Time No Known Allergies Allergy Verified 10/13/24 18:35 Physical Exam Vitals: Vital Signs Temp Pulse Resp BP Pulse Ox 10/14/24 06:03 93 18 107/50 95 10/14/24 05:00 98.9 F 103 H 18 117/49 98 10/14/24 03:35 103.1 F H 10/14/24 03:05 107 H 18 116/45 95 10/14/24 01:16 90 18 140/70 98 10/13/24 23:00 90 18 129/54 96 10/13/24 22:00 82 18 139/60 94 L 10/13/24 21:00 89 18 133/49 97 10/13/24 20:00 86 18 132/54 96 10/13/24 19:17 80 18 120/51 97 10/13/24 18:07 82 18 126/47 95 10/13/24 16:00 80 18 124/40 97 10/13/24 14:12 101.6 F H 76 20 164/75 98 Results CBC & Chem 7: 10/13/24 15:00 10/13/24 15:00 Labs: Abnormal Lab Results - Last 24 Hours (Table) 10/13/24 10/13/24 10/13/24 Range/Units 15:00 15:00 15:00 Lymphocytes # 0.9 L (1.0-4.8) k/uL APTT 21.2 L (22.0-30.0) sec Sodium 129 L (137-145) mmol/L BUN 29 H (9-20) mg/dL Creatinine 1.76 H (0.66-1.25) mg/dL C-Reactive Protein (<1.0) mg/dL Urine Protein (Negative) Urine Blood (Negative) Ur Leukocyte Esterase (Negative) Urine RBC (0-5) /hpf Urine WBC (0-5) /hpf Urine WBC Clumps (None) /hpf Urine Bacteria (None) /hpf Urine Mucus (None) /hpf 10/13/24 10/13/24 Range/Units 17:08 17:43 Lymphocytes # (1.0-4.8) k/uL APTT (22.0-30.0) sec Sodium (137-145) mmol/L BUN (9-20) mg/dL Creatinine (0.66-1.25) mg/dL C-Reactive Protein 19.6 H (<1.0) mg/dL Urine Protein Trace H (Negative) Urine Blood Moderate H (Negative) Ur Leukocyte Esterase Large H (Negative) Urine RBC 10 H (0-5) /hpf Urine WBC >182 H (0-5) /hpf Urine WBC Clumps Few H (None) /hpf Urine Bacteria Rare H (None) /hpf Urine Mucus Rare H (None) /hpf
[2024-10-14] MEDS: TAMSULOSIN 0.4 MG CAP.ER.24H PO SCH (20:06)
[2024-10-14] MEDS: LATANOPROST 0.005% OPHTH DROPS 2.5 ML BTL BOTH EYES SCH (20:07)
[2024-10-14] MEDS: PRAVASTATIN SODIUM 20 MG TAB PO SCH (20:07)
--- NOTE | 2024-10-14 20:44 | P.CONS ---
History of Present Illness - Reason for Consult Consult date: 10/14/24 Pneumonia, UTI Requesting physician: Amaris Villarreal - Chief Complaint Weakness decreased appetite x 1 month - History of Present Illness Patient is a 78-year-old -[place] male with a past medical history significant for hypertension reflux CVA TIA prostate disorder presenting to the hospital for evaluation of weakness loss of appetite patient symptom has been ge tting worse for about a month and the patient also developed diarrhea unable to make it to the restroom patient denies any blood or mucus in the stool denies any abdominal pain no nausea no vomiting denies having any chest pain shortness of breath on presentation to the hospital patient did have a temperature of 101.6 F initially patient is afebrile this morning patient was not tachycardic hypotensive or hypoxic and no need for supplemental oxygen patient did have a white count of 4.8 with lymphopenia BUN and creatinine mildly elevated liver enzymes are normal patient did have a positive UA with large leukocyte esterase more than 10 WBC influenza RSV COVID testing is negative tested negative for C. difficile patient did have a chest x-ray cardiomegaly and possible mild pulmonary vascular congestion versus atypical infectious etiology CT of the chest interstitial and airspace opacities more pronounced in the left lower lobe with associated tree-in-bud nodularity likely infectious etiology patient has been started on Rocephin and Zithromax infectious disease was consulted regarding pneumonia and UTI patient himself not a very good historian most information has been stating from review the chart and leading question Review of Systems Positive point and negatives has been mentioned in the HPI, complete review of systems was performed and all other systems are negative Past Medical History Past Medical History: CVA/TIA, GERD/Reflux, Hypertension, Liver Disease, Osteoarthritis (OA), Prostate Disorder, Syncope, Thyroid Disorder Additional Past Medical History / Comment(s): Cryptogenic liver/jaundice in past with 2 past liver transplants, BPH, kidney problems prior to liver transplant-no current problems, past jaw fx with sx, February 2017-had episode with rt sided weakness and a fall-has no current effects, had episode of frequent PVC's, "thin skin" History of Any Multi-Drug Resistant Organisms: ESBL, MRSA Year Discovered:: 09/18/23 MRSA; 08/23/22 ESBL MDRO Source:: Right Leg-MRSA; Blood-ESBL Additional Past Surgical History / Comment(s): 1999 liver transplant, 2003 liver transplant, 2007 plate in jaw from fx, bilateral cataract removal with lens, colonoscopy. Past Anesthesia/Blood Transfusion Reactions: No Reported Reaction Additional Past Anesthesia/Blood Transfusion Reaction / Comm: Pt received blood in past without reaction. hx jaw fx- had surgery and has a plate. a little confusion when first waking up Past Psychological History: No Psychological Hx Reported Smoking Status: Never smoker Past Alcohol Use History: None Reported Past Drug Use History: None Reported - Past Family History Father Family Medical History: Cancer Additional Family Medical History / Comment(s): Father was healthy. He around the age of 83 yrs. Mother Family Medical History: Myocardial Infarction ([place]) Additional Family Medical History / Comment(s): Mother of a [place] at the age of 83 yrs. Medications and Allergies Home Medications Medication Instructions Recorded Confirmed Type Tamsulosin [Flomax] 0.4 mg PO HS 07/20/15 10/13/24 History Metoprolol Succinate [Toprol XL] 50 mg PO DAILY 11/29/22 10/13/24 History Tacrolimus [Prograf] 0.5 mg PO BID 02/08/23 10/13/24 History Clopidogrel [Plavix] 75 mg PO DAILY 05/17/23 10/13/24 History Latanoprost Ophth [Xalatan 0.005%] 1 drop BOTH EYES HS 09/18/23 10/13/24 History mycophenolate mofetiL [Cellcept] 1,000 mg PO BID 09/18/23 10/13/24 History Pravastatin Sodium [Pravachol] 10 mg PO HS 02/21/24 10/13/24 History Allergies Allergy/AdvReac Type Severity Reaction Status Date / Time No Known Allergies Allergy Verified 10/13/24 18:35 Physical Exam Vitals: Vital Signs Temp Pulse Pulse Resp BP BP Pulse Ox 10/14/24 08:00 98.5 F 87 17 125/64 95 10/14/24 06:03 93 18 107/50 95 10/14/24 05:00 98.9 F 103 H 18 117/49 98 10/14/24 03:35 103.1 F H 10/14/24 03:05 107 H 18 116/45 95 10/14/24 01:16 90 18 140/70 98 10/13/24 23:00 90 18 129/54 96 10/13/24 22:00 82 18 139/60 94 L 10/13/24 21:00 89 18 133/49 97 10/13/24 20:00 86 18 132/54 96 10/13/24 19:17 80 18 120/51 97 10/13/24 18:07 82 18 126/47 95 10/13/24 16:00 80 18 124/40 97 10/13/24 14:12 101.6 F H 76 20 164/75 98 GENERAL DESCRIPTION: Elderly male lying in bed, no distress. No tachypnea or accessory muscle of respiration use. HEENT: Shows Pallor , no scleral icterus. Oral mucous membrane is dry. NECK: Trachea central, no thyromegaly. LUNGS: Unlabored breathing. Decreased breath sound the base HEART: S1, S2, regular rate and rhythm. No loud murmur ABDOMEN: Soft, no tenderness , guarding or rigidity EXTREMITIES: No edema of feet. SKIN: No rash, no masses palpable. NEUROLOGICAL: The patient is awake, mood and affect normal. Results CBC & Chem 7: 10/13/24 15:00 10/13/24 15:00 Labs: Abnormal Lab Results - Last 24 Hours (Table) 10/13/24 10/13/24 10/13/24 Range/Units 15:00 15:00 15:00 Lymphocytes # 0.9 L (1.0-4.8) k/uL APTT 21.2 L (22.0-30.0) sec Sodium 129 L (137-145) mmol/L BUN 29 H (9-20) mg/dL Creatinine 1.76 H (0.66-1.25) mg/dL C-Reactive Protein (<1.0) mg/dL Urine Protein (Negative) Urine Blood (Negative) Ur Leukocyte Esterase (Negative) Urine RBC (0-5) /hpf Urine WBC (0-5) /hpf Urine WBC Clumps (None) /hpf Urine Bacteria (None) /hpf Urine Mucus (None) /hpf 10/13/24 10/13/24 Range/Units 17:08 17:43 Lymphocytes # (1.0-4.8) k/uL APTT (22.0-30.0) sec Sodium (137-145) mmol/L BUN (9-20) mg/dL Creatinine (0.66-1.25) mg/dL C-Reactive Protein 19.6 H (<1.0) mg/dL Urine Protein Trace H (Negative) Urine Blood Moderate H (Negative) Ur Leukocyte Esterase Large H (Negative) Urine RBC 10 H (0-5) /hpf Urine WBC >182 H (0-5) /hpf Urine WBC Clumps Few H (None) /hpf Urine Bacteria Rare H (None) /hpf Urine Mucus Rare H (None) /hpf Assessment and Plan (1) Immunocompromised state Current Visit: Yes Status: Acute Code(s): D84.9 - IMMUNODEFICIENCY, UNSPECIFIED SNOMED Code(s): 505120818 (2) Pneumonia Current Visit: Yes Status: Acute Code(s): J18.9 - PNEUMONIA, UNSPECIFIED ORG ANISM SNOMED Code(s): 672774011 (3) UTI (urinary tract infection) Current Visit: Yes Status: Acute Code(s): N39.0 - URINARY TRACT INFECTION, SITE NOT SPECIFIED SNOMED Code(s): 99621247 Plan: 1patient presented to hospital with symptoms of weakness and decreased appetite as well as diarrhea and this patient noticed to be febrile with temperature of 103 F however the patient did have a normal white count patient did have significantly positive UA however denies significant urinary symptom did not have significant respiratory symptom however abnormalities noticed on the chest x-ray as well as a CT of the chest with a question of community-acquired versus atypical pathogen keeping in mind his history of renal transplant on immunosuppressive 2-try to obtain sputum for Gram stain and culture urine for Legionella antigen and mycoplasma IgM CRP procalcitonin, 3-stool for C. difficile negative check a stool culture 4-continue with empiric Rocephin and Zithromax while waiting for the workup to be completed We will follow on clinical condition and cultures to further adjust medication if needed Thank you for this consultation we will follow the patient along with you Dictation was produced using [employer] dictation software. please excuse any grammatical, word or spelling errors. Time with Patient: Greater than 30
[2024-10-15] MEDS: PANTOPRAZOLE 40 MG TABLET PO SCH (08:09)
[2024-10-15 08:56] LABS: BUN/Creat Ratio 11.59 Ratio (12.00-20.00); Blood Urea Nitrogen 19.7 mg/dL (9.0-27.0); Calcium 7.6 mg/dL (8.7-10.3); Carbon Dioxide 17.5 mmol/L (21.6-31.8); Chloride 103 mmol/L (96-109); Glucose 90 mg/dL (70-110); Potassium 4.2 mmol/L (3.5-5.5); Sodium 132 mmol/L (135-145)
[2024-10-15 09:18] LABS: HCT 31.1 % (39.6-50.0); HGB 9.9 g/dL (13.0-17.0); MCH 26.1 pg (27.0-32.0); MCHC 31.8 g/dL (32.0-37.0); MCV 82.1 FL (80.0-97.0); Mean Platelet Volume 9.4 FL (9.5-12.2); NRBC Per 100 WBC 0 X 10*3/uL (0.00-0.01); Platelet Count 168 X 10*3/uL (140-440); RBC 3.79 X 10*6/uL (4.40-5.60); RDW 13.3 % (11.5-14.5); WBC 4.08 X 10*3/uL (4.50-10.00)
--- NOTE | 2024-10-15 11:35 | P.PN ---
Subjective Progress Note Date: 10/15/24 History of present illness; 78-year-old male with hypertension, cryptogenic liver disease with 2 previous l iver transplants, history of CVA who presents for weakness. Patient states that over the last month he has progressive weakness and loss of appetite. He also states he has had multiple episodes of fecal incontinence during the last week. He does have a similar presentation of weakness 1 year ago where he had infection. He also endorses that he vomited several times last night. He is on immune suppressants from previous liver transplant 20 years ago. Currently he endorses fever, weakness, cough, nausea, diarrhea. Cough is infrequent without sputum production. He also states he has some left-sided flank pain, particularly when moving. He denies chest pain, palpitation, shortness of radha ath, abdominal pain, dysuria. Vitals initial temperature 101.6 with Tmax 103.1. Labs performed ER are significant for WBC is WNL, sodium 129, potassium 5.0, bicarb 22, BUN 29, creatinine 1.76, glucose 80, initial troponin 0.014, CRP 19.6, procalcitonin 0.24, UA significant for trace protein, blood moderate, leukocyte esterase large, WBC > 182, respiratory panel negative. EKG done in the ER independently interpreted showed sinus rhythm, heart rate of 78, no ST segment elevation or depression seen, no T-wave inversions seen. Chest x-ray done independently interpreted in the ER showed cardiomegaly and possible mild pulmonary vascular congestion versus atypical infectious etiology CT chest done independently interpreted showed interstitial and airway opacities most pronounced in left lower lobe with associated tree-in-bud nodularity, likely infectious etiology. Solid 2.0 cm region nodularity in left lower lobe is technically indeterminate. 10/15/2024 Patient seen and examined at bedside. Overnight patient did have fever with Tmax 102.6. Vomiting at beside, zofran given. Hgb 9.9 decreasing, repeat CBC. Sodium improving 132, BUN 19.7. US KUB with thickening of bladder, enlarged pr ostate, no obstruction noted. REVIEW OF SYSTEMS: Pertinent positives and negatives noted in HPI. PHYSICAL EXAMINATION: Vitals reviewed GENERAL: No acute distress. Well developed, well nourished. HEENT: Pupils are round and equally reacting to light. EOMI. No scleral icterus. Normocephalic, atraumatic. No pharyngeal erythema. No thyromegaly. CARDIOVASCULAR: S1 and S2 present. No murmurs, rubs, or gallops. PULMONARY: Chest is clear to auscultation, no wheezing, rhonchi, or crackles. ABDOMEN: Soft, right flank tenderness, nondistended, normoactive bowel sounds. No palpable organomegaly. MUSCULOSKELETAL: No apparent joint swelling and deformities. EXTREMITIES: No apparent cyanosis, clubbing, or pedal edema. NEUROLOGICAL: The patient is alert and oriented x3, Gross neurological exam ination did not reveal any focal deficits. SKIN: No apparent rashes. 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 #Weakness #Possible pneumonia #Diarrhea - Pending blood, stool and sputum cultures - Pending legionella, procalcitonin negative Pending C. difficile - COVID, influenza and RSV are negative - monitor daily CBC, CMP - CT chest findings left lower lobe interstitial and airway opacities, with indeterminate 2 cm nodularity - begin IV Ceftriaxone 2g qd and IV Azithromycin 500 mg qd day #1 - begin IV fluids - discussed smoking cessation and PVC13 vaccine - encourage incentive spirometry ID consulted # Acute kidney injury, non-oliguric due to dehydration #UTI Initial BUN 29, creatinine 1.76 - monitor urine output - continue IV fluids - UA significant for elevated leukocyte esterase - Urine cultures pending - US KUB with thickening of bladder, enlarged prostate, no obstruction noted. Antibiotics as above - hold JD inhibitor and avoid nephrotoxic medications (NSAIDs, contrast, SGLT2, diuretics) #Hyponatremia, improving Initial sodium 129 => 132 Continue IV fluids Chronic Medical Conditions #History of liver transplant Resume home immunosuppressive #A-fib - Resume home Eliquis, Metoprolol #Hyperlidemia - Resume home medication #BPH - Resume home Tamsulosin F: IV Normal saline 75 mL/hr E: Replete as needed N: Regular diet DVT ppx: Subq Lovenox 40 meq daily Code status: Full code Anticipated discharge place: Home Anticipated discharge time: 2 to 3 days Dictation was produced using [employer] dictation software. Please excuse any grammatical, word or spelling errors. Objective - Vital Signs Vital signs: Vital Signs Temp 98.3 F 10/15/24 06:59 Pulse 87 10/15/24 06:59 Resp 16 10/15/24 06:59 BP 128/55 10/15/24 06:59 Pulse Ox 95 10/15/24 06:59 FiO2 Intake & Output 10/14/24 10/15/24 10/15/24 18:59 06:59 18:59 Intake Total 1020 120 Balance 1020 120 Weight 86.183 kg Intake: Oral 1020 120 Other: # Voids 3 3 # Bowel Movements 3 1 - Labs CBC & Chem 7: 10/15/24 04:50 10/15/24 04:50 Labs: Abnormal Lab Results - Last 24 Hours (Table) 10/15/24 Range/Units 04:50 Sodium 132 L (135-145) mmol/L Carbon Dioxide 17.5 L (21.6-31.8) mmol/L Creatinine 1.7 H (0.6-1.5) mg/dL Est GFR (CKD-EPI) 40 L (>=60) BUN/Creatinine Ratio 11.59 L (12.00-20.00) Ratio Calcium 7.6 L (8.7-10.3) mg/dL Microbiology - Last 24 Hours (Table) 10/13/24 17:45 Urine Culture - Preliminary Urine,Clean Catch
[2024-10-15] MEDS: PANTOPRAZOLE 40 MG/10 ML VIAL IVP SCH (12:03)
[2024-10-15] MEDS: IOPAMIDOL CONTRAST (ORAL USE) VIAL PO PRN (12:03)
[2024-10-15] MEDS: DIPHENOX-ATROP 2.5-0.025 MG 1 EACH TAB PO PRN (12:12)
[2024-10-15 12:18] LABS: Basophils % (A) 0 %; Eosinophils # (A) 0.4 k/uL (0-0.7); Eosinophils % (A) 8 %; HCT 35.8 % (39.0-53.0); HGB 11.4 gm/dL (13.0-17.5); Hypochromasia Slight; Lymphocytes # (A) 0.8 k/uL (1.0-4.8); Lymphocytes % (A) 18 %; MCH 26.6 pg (25.0-35.0); MCHC 31.8 g/dL (31.0-37.0); MCV 83.5 fL (80.0-100.0); Mean Platelet Volume 7.4; Monocytes # (A) 0.2 k/uL (0-1.0); Monocytes % (A) 6 %; Neutrophils # (A) 2.8 k/uL (1.3-7.7); Neutrophils % (A) 64 %; Platelet Count 192 k/uL (150-450); RBC 4.28 m/uL (4.30-5.90); RDW 13.5 % (11.5-15.5); WBC 4.4 k/uL (3.8-10.6)
--- NOTE | 2024-10-15 14:12 | CT ---
EXAMINATION TYPE: CT abdomen pelvis wo con CT DLP: 625.3 mGycm, Automated exposure control for dose reduction was used. DATE OF EXAM: 10/15/2024 1:48 PM COMPARISON: CT chest 10/13/2024, CT abdomen and pelvis 08/23/2022 CLINICAL INDICATION:Male, 78 years old with history of vomiting/abdoninal pain; vomiting, abdominal p ain, diarrhea TECHNIQUE: Standard CT of the abdomen and pelvis following the administration of oral contrast. Cor onal and sagittal reformats were performed. FINDINGS: LOWER CHEST: Elevation of the left hemidiaphragm patchy opacities within the left lower lobe. Scatter ed reticular opacities throughout the lungs with some scarring/atelectasis within the right lower lob e as seen on prior CT chest. ABDOMEN LIVER: Pneumobilia. No focal lesion within the limitations of a noncontrast exam. Postsurgical change s from liver transplant. GALLBLADDER AND BILE DUCTS: Gallbladder surgically absent. Pneumobilia redemonstrated. PANCREAS: Unremarkable. SPLEEN: Unremarkable. ADRENAL GLANDS: Unremarkable. KIDNEYS AND URETERS: No evidence of hydronephrosis. Nonobstructive right lower pole 3 mm calculus. No left renal calculi. Multiple bilateral renal cysts. PELVIS BLADDER: The urinary bladder is underdistended which limits evaluation. Couple of bilateral urinary b ladder wall diverticulum. REPRODUCTIVE: Unremarkable. ABDOMEN & PELVIS STOMACH AND BOWEL: Stomach and duodenum are unremarkable. Distal colonic diverticulosis without evide nce for acute diverticulitis. Enteric contrast reaches the transverse colon. No focal bowel wall thic kening or surrounding inflammatory changes. Contrast is demonstrated within the appendix without surr ounding inflammatory changes or dilatation. No evidence of bowel obstruction. PERITONEUM: No evidence of pneumoperitoneum or free fluid. VASCULATURE: Mild atherosclerotic calcifications are present throughout the abdominal aorta and its b ranches. No evidence of aortic aneurysm. MUSCULOSKELETAL: No acute osseous abnormalities. Bilateral SI joint degenerative changes. Chronic mul tilevel compression deformities in the lumbar spine redemonstrated. LYMPH NODES: No gross evidence for lymphadenopathy. SOFT TISSUE/ABDOMINAL WALL: Thinning of the anterior abdominal wall musculature with small ventral wa ll hernias containing fat and nonobstructed small bowel portion. IMPRESSION: 1. No CT evidence for acute abdominal/pelvic process within limitations of a nonintravenous contrast exam. 2. Nonobstructive right renal calculi with multiple bilateral renal cysts. 3. Colonic diverticulosis without evidence for acute diverticulitis. 3. Post cholecystectomy changes with redemonstration of pneumobilia. [facility], , 10/15/2024 2:10 PM
--- NOTE | 2024-10-15 15:44 | P.PN ---
Subjective Progress Note Date: 10/15/24 Principal diagnosis: Reason for follow-up is fever/pneumonia/UTI Patient is a 78-year-old -[place] male with a past medical history significant for hypertension reflux CVA TIA prostate disorder presenting to the hospital for evaluation of weakness loss of appetite, patient did have a fever positive UA CT of the chest interstitial airspace opacities in the left lower lo be. On today's evaluation that is 10/15/2024, Patient is running a fever however fever pattern has improved temperature of 100.9 this morning patient complaining of feeling nauseated and episode of vomiting but no significant abdominal pain and no worsening diarrhea has been reported he is breathing comfortably on room air. Patient white count is 4.4 creatinine is 1.7 cultures are currently pending Objective - Vital Signs Vital signs: Vital Signs Temp 100.9 F H 10/15/24 11:42 Pulse 87 10/15/24 11:42 Resp 16 10/15/24 11:42 BP 145/56 10/15/24 11:42 Pulse Ox 96 10/15/24 11:42 FiO2 Intake & Output 10/14/24 10/15/24 10/15/24 18:59 06:59 18:59 Intake Total 1020 120 Balance 1020 120 Weight 86.183 kg Intake: Oral 1020 120 Other: # Voids 3 3 1 # Bowel Movements 3 1 1 - Exam GENERAL DESCRIPTION: An elderly male up in bed in no distress RESPIRATORY SYSTEM: Unlabored breathing Patient was actively vomiting exam could not be completed - Labs CBC & Chem 7: 10/15/24 12:04 10/15/24 04:50 Labs: Abnormal Lab Results - Last 24 Hours (Table) 10/15/24 10/15/24 10/15/24 Range/Units 04:50 04:50 12:04 WBC 4.08 L (4.50-10.00) X 10*3/uL RBC 3.79 L 4.28 L (4.40-5.60) X 10*6/uL Hgb 9.9 L 11.4 L (13.0-17.0) g/dL Hct 31.1 L 35.8 L (39.6-50.0) % MCH 26.1 L (27.0-32.0) pg MCHC 31.8 L (32.0-37.0) g/dL MPV 9.4 L (9.5-12.2) FL Lymphocytes # 0.8 L (1.0-4.8) k/uL Sodium 132 L (135-145) mmol/L Carbon Dioxide 17.5 L (21.6-31.8) mmol/L Creatinine 1.7 H (0.6-1.5) mg/dL Est GFR (CKD-EPI) 40 L (>=60) BUN/Creatinine Ratio 11.59 L (12.00-20.00) Ratio Calcium 7.6 L (8.7-10.3) mg/dL Microbiology - Last 24 Hours (Table) 10/13/24 17:43 Blood Culture - Preliminary Blood 10/13/24 17:45 Urine Culture - Preliminary Urine,Clean Catch Assessment and Plan (1) Immunocompromised state Current Visit: Yes Status: Acute Code(s): D84.9 - IMMUNODEFICIENCY, UNSPECIFIED SNOMED Code(s): 715184092 (2) Pneumonia Current Visit: Yes Status: Acute Code(s): J18.9 - PNEUMONIA, UNSPECIFIED ORGANISM SNOMED Code(s): 078113950 (3) UTI (urinary tract infection) Current Visit: Yes Status: Acute Code(s): N39.0 - URINARY TRACT INFECTION, SITE NOT SPECIFIED SNOMED Code(s): 04789733 Plan: 1patient presented to hospital with symptoms of weakness and decreased appetite as well as diarrhea and this patient noticed to be febrile with temperature of 103 F however the patient did have a normal white count patient did have significantly positive UA however denies significant urinary symptom did not have significant respiratory symptom however abnormalities noticed on the chest x-ray as well as a CT of the chest with a question of community-acquired versus atypical pathogen keeping in mind his history of renal transplant on imm unosuppressive 2-patient now has significant vomiting and remains to be febrile concerning for possible abdominal source we will obtain a CT abdominal pelvis with oral contrast discussed with the admitting team incision divided to Zosyn while waiting for the culture to finalize Dictation was produced using [employer] software. please excuse any grammatical, word or spelling errors. Time with Patient: Less than 30
[2024-10-15] MEDS: PIPERACILLIN-TAZOBACTAM 3.375 GM in SODIUM CHLORIDE 0.9% 100 ML IVPB SCH (16:47)
[2024-10-16 08:12] LABS: MCH 26.8 pg (25.0-35.0); MCHC 32.6 g/dL (31.0-37.0); MCV 82.3 fL (80.0-100.0); Mean Platelet Volume 7.5; Platelet Count 182 k/uL (150-450); RBC 3.64 m/uL (4.30-5.90); RDW 13.7 % (11.5-15.5); WBC 3.3 k/uL (3.8-10.6)
[2024-10-16 08:14] LABS: HGB 9.8 gm/dL (13.0-17.5)
[2024-10-16 08:38] LABS: Band Neutrophils % 1 %; Basophils # (M) 0.03 k/uL (0-0.2); Monocytes # (M) 0.17 k/uL (0-1.0); Neutrophils % (M) 66 %; Nucleated Red Blood Cells 0 /100 WBC (0-0); Poikilocytosis (M) Present; Total Cells Counted 100
[2024-10-16 09:22] LABS: BUN/Creat Ratio 9.06 Ratio (12.00-20.00); Blood Urea Nitrogen 15.4 mg/dL (9.0-27.0); Calcium 7.6 mg/dL (8.7-10.3); Carbon Dioxide 15.4 mmol/L (21.6-31.8); Chloride 102 mmol/L (96-109); Glucose 78 mg/dL (70-110); Potassium 4.2 mmol/L (3.5-5.5); Sodium 130 mmol/L (135-145)
[2024-10-16] MEDS: AMPICILLIN-SULBACTAM 3 GM in SODIUM CHLORIDE 0.9% 100 ML IVPB SCH (15:18)
[2024-10-16] MEDS: HYDROcodone/APAP 5-325MG 1 EACH TAB PO PRN (17:01)
--- NOTE | 2024-10-16 19:34 | P.PN ---
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 Patient states that over the last month he has progressive weakness and loss of appetite. He also states he has had multiple episodes of fecal incontinence during the last week. He does have a similar presentation of weakness 1 year ago where he had infection. He also endorses that he vomited several times last night. He is on immune suppressants from previous liver transplant 20 years ago. Currently he endorses fever, weakness, cough, nausea, diarrhea. Cough is infrequent without sputum production. He also states he has some left-sided flank pain, particularly when moving. He denies chest pain, palpitation, shortness of radha ath, abdominal pain, dysuria. Vitals initial temperature 101.6 with Tmax 103.1. Labs performed ER are significant for WBC is WNL, sodium 129, potassium 5.0, bicarb 22, BUN 29, creatinine 1.76, glucose 80, initial troponin 0.014, CRP 19.6, procalcitonin 0.24, UA significant for trace protein, blood moderate, leukocyte esterase large, WBC > 182, respiratory panel negative. EKG done in the ER independently interpreted showed sinus rhythm, heart rate of 78, no ST segment elevation or depression seen, no T-wave inversions seen. Chest x-ray done independently interpreted in the ER showed cardiomegaly and possible mild pulmonary vascular congestion versus atypical infectious etiology CT chest done independently interpreted showed interstitial and airway opacities most pronounced in left lower lobe with associated tree-in-bud nodularity, likely infectious etiology. Solid 2.0 cm region nodularity in left lower lobe is technically indeterminate. 10/15/2024 Patient seen and examined at bedside. Overnight patient did have fever with Tmax 102.6. Vomiting at beside, zofran given. Hgb 9.9 decreasing, repeat CBC. Sodium improving 132, BUN 19.7. US KUB with thickening of bladder, enlarged pr ostate, no obstruction noted. 10/16/2024 Patient seen and examined at bedside. CT abdomen interpreted as no acute abdominal or pelvic process noted. Will discontinue Zosyn and begin Unasyn. Today's labs WBC 3.3, hemoglobin 9.8. Sodium 130, bicarb 15.4, gap 12.6, creatinine 1.7. Urine culture with Enterococcus faecalis, stool with Nirmala. REVIEW OF SYSTEMS: Pertinent positives and negatives noted in HPI. PHYSICAL EXAMINATION: Vitals reviewed GENERAL: No acute distress. Well developed, well nourished. HEENT: Pupils are round and equally reacting to light. EOMI. No scleral icterus. Normocephalic, atraumatic. No pharyngeal erythema. No thyromegaly. CARDIOVASCULAR: S1 and S2 present. No murmurs, rubs, or gallops. PULMONARY: Chest is clear to auscultation, no wheezing, rhonchi, or crackles. ABDOMEN: Soft, right flank tenderness, nondistended, normoactive bowel sounds. No palpable organomegaly. MUSCULOSKELETAL: No apparent joint swelling and deformities. EXTREMITIES: No apparent cyanosis, clubbing, or pedal edema. NEUROLOGICAL: The patient is alert and oriented x3, Gross neurological examination did not reveal any focal deficits. SKIN: No apparent rashes. 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 #Weakness #Diarrhea - Pending blood culture, stool with Nirmala - C. difficile negative - Discontinue Zosyn 3.375 g, discontinue ceftriaxone and azithromycin Begin Unasyn 3 g every 8 hour - Continue IV fluids PT OT evaluation ID following # Acute kidney injury, non-oliguric due to dehydration #UTI Initial BUN 29, creatinine 1.76 - monitor urine output - continue IV fluids - UA significant for elevated leukocyte esterase - Urine cultures Enterococcus faecalis - US KUB with thickening of bladder, enlarged prostate, no obstruction noted. Antibiotics as above - hold JD inhibitor and avoid nephrotoxic medications (NSAIDs, contrast, SGLT2, diuretics) #Vomiting, resolved -given zofran - CT abdomen with no acute abdominal or pelvic process #Hyponatremia Initial sodium 129 => 132 => 130 Continue IV fluids #Bicytopenia in the setting of immunosuppressive medication Monitor CBC Chronic Medical Conditions #History of liver transplant Resume home immunosuppressive #A-fib - Resume home Eliquis, Metoprolol #Hyperlidemia - Resume home medication #BPH - Resume home Tamsulosin F: IV Normal saline 20 mL/hr E: Replete as needed N: Liquid advance as tolerated DVT ppx: Subq Lovenox 40 meq daily Code status: Full code Anticipated discharge place: Home Anticipated discharge time: 2 to 3 days Dictation was produced using [employer] dictation software. Please excuse any gra mmatical, word or spelling errors. Objective - Vital Signs Vital signs: Vital Signs Temp 99.9 F H 10/16/24 07:27 Pulse 75 10/16/24 07:27 Resp 17 10/16/24 07:27 BP 115/47 10/16/24 07:27 Pulse Ox 92 L 10/16/24 07:27 FiO2 Intake & Output 10/15/24 10/16/24 10/16/24 18:59 06:59 18:59 Intake Total 1480 Output Total 300 100 Balance 1180 -100 Intake: Intake, IV Titration 1000 Amount Piperacillin-Tazobactam 3 100 .375 gm In Sodium Chloride 0.9% 100 ml @ 25 mls/hr IVPB Q8HR [facility] Rx# :[id number] Sodium Chloride 0.9% 1, 900 000 ml @ 75 mls/hr IV . [id number] [facility] Rx#:[id number] Oral 480 Output: Urine 300 100 Other: # Voids 1 2 # Bowel Movements 2 1 - Labs CBC & Chem 7: 10/16/24 07:30 10/16/24 05:31 Labs: Abnormal Lab Results - Last 24 Hours (Table) 10/15/24 10/15/24 10/15/24 Range/Units 04:50 04:50 12:04 WBC 4.08 L (4.50-10.00) X 10*3/uL RBC 3.79 L 4.28 L (4.40-5.60) X 10*6/uL Hgb 9.9 L 11.4 L (13.0-17.0) g/dL Hct 31.1 L 35.8 L (39.6-50.0) % MCH 26.1 L (27.0-32.0) pg MCHC 31.8 L (32.0-37.0) g/dL MPV 9.4 L (9.5-12.2) FL Lymphocytes # 0.8 L (1.0-4.8) k/uL Sodium 132 L (135-145) mmol/L Carbon Dioxide 17.5 L (21.6-31.8) mmol/L Creatinine 1.7 H (0.6-1.5) mg/dL Est GFR (CKD-EPI) 40 L (>=60) BUN/Creatinine Ratio 11.59 L (12.00-20.00) Ratio Calcium 7.6 L (8.7-10.3) mg/dL 10/16/24 Range/Units 07:30 WBC 3.3 L (4.50-10.00) X 10*3/uL RBC 3.64 L (4.40-5.60) X 10*6/uL Hgb 9.8 L D (13.0-17.0) g/dL Hct 30.0 L (39.6-50.0) % MCH (27.0-32.0) pg MCHC (32.0-37.0) g/dL MPV (9.5-12.2) FL Lymphocytes # (1.0-4.8) k/uL Sodium (135-145) mmol/L Carbon Dioxide (21.6-31.8) mmol/L Creatinine (0.6-1.5) mg/dL Est GFR (CKD-EPI) (>=60) BUN/Creatinine Ratio (12.00-20.00) Ratio Calcium (8.7-10.3) mg/dL Microbiology - Last 24 Hours (Table) 10/13/24 17:45 Urine Culture - Final Urine,Clean Catch Enterococcus faecalis 10/13/24 17:43 Blood Culture - Preliminary Blood
--- NOTE | 2024-10-17 07:38 | P.PN ---
Subjective Progress Note Date: 10/16/24 Principal diagnosis: Reason for follow-up is fever/pneumonia/UTI Patient is a 78-year-old -Portuguese male with a past medical history significant for hypertension reflux CVA TIA prostate disorder presenting to the hospital for evaluation of weakness loss of appetite, patient did have a fever positive UA CT of the chest interstitial airspace opacities in the left lower lo be. On today's evaluation that is 10/16/2024,the patient did have improvement in his fever pattern temperature down to 99.9 F this morning patient mention feeling slightly better no further vomiting no chest pain no shortness of breath he did have a cough and bring up some sputum no further diarrhea reported. Patient white count is 3.3 creatinine is 1.7 urine is growing Enterococcus faecalis CT abdominal pelvis did not show any acute abnormality nonobstructive right renal calculi Objective - Vital Signs Vital signs: Vital Signs Temp 99.9 F H 10/16/24 07:27 Pulse 75 10/16/24 07:27 Resp 17 10/16/24 07:27 BP 115/47 10/16/24 07:27 Pulse Ox 92 L 10/16/24 07:27 FiO2 Intake & Output 10/15/24 10/16/24 10/16/24 18:59 06:59 18:59 Intake Total 1480 Output Total 300 100 Balance 1180 -100 Intake: Intake, IV Titration 1000 Amount Piperacillin-Tazobactam 3 100 .375 gm In Sodium Chloride 0.9% 100 ml @ 25 mls/hr IVPB Q8HR [facility] Rx# :[id number] Sodium Chloride 0.9% 1, 900 000 ml @ 75 mls/hr IV . [id number] [facility] Rx#:[id number] Oral 480 Output: Urine 300 100 Other: Voiding Method Urinal # Voids 1 2 # Bowel Movements 2 1 - Exam GENERAL DESCRIPTION: An elderly male lying in bed in no distress RESPIRATORY SYSTEM: Unlabored breathing , decreased breath sounds at bases HEART: S1 S2 regular rate and rhythm , ABDOMEN: Soft , no tenderness EXTREMITIES: No edema feet - Labs CBC & Chem 7: 10/16/24 07:30 10/16/24 05:31 Labs: Abnormal Lab Results - Last 24 Hours (Table) 10/15/24 10/16/24 10/16/24 Range/Units 12:04 05:31 07:30 WBC 3.3 L (3.8-10.6) k/uL RBC 4.28 L 3.64 L (4.30-5.90) m/uL Hgb 11.4 L 9.8 L D (13.0-17.5) gm/dL Hct 35.8 L 30.0 L (39.0-53.0) % Lymphocytes # 0.8 L (1.0-4.8) k/uL Lymphocytes # (Manual) 0.50 L (1.0-4.8) k/uL Sodium 130 L (135-145) mmol/L Carbon Dioxide 15.4 L (21.6-31.8) mmol/L Anion Gap 12.60 H (4.00-12.00) mmol/L Creatinine 1.7 H (0.6-1.5) mg/dL Est GFR (CKD-EPI) 40 L (>=60) BUN/Creatinine Ratio 9.06 L (12.00-20.00) Ratio Calcium 7.6 L (8.7-10.3) mg/dL Microbiology - Last 24 Hours (Table) 10/13/24 17:45 Urine Culture - Final Urine,Clean Catch Enterococcus faecalis 10/13/24 17:43 Blood Culture - Preliminary Blood Assessment and Plan (1) Immunocompromised state Current Visit: Yes Status: Acute Code(s): D84.9 - IMMUNODEFICIENCY, UNSPECIFIED SNOMED Code(s): 047126110 (2) Pneumonia Current Visit: Yes Status: Acute Code(s): J18.9 - PNEUMONIA, UNSPECIFIED OR GANISM SNOMED Code(s): 146696597 (3) UTI (urinary tract infection) Current Visit: Yes Status: Acute Code(s): N39.0 - URINARY TRACT INFECTION, SITE NOT SPECIFIED SNOMED Code(s): 20950118 Plan: 1patient presented to hospital with symptoms of weakness and decreased appetite as well as diarrhea and this patient noticed to be febrile with temperature of 103 F however the patient did have a normal white count patient did have significantly positive UA however denies significant urinary symptom did not have significant respiratory symptom however abnormalities noticed on the chest x-ray as well as a CT of the chest with a question of community-acquired versus atypical pathogen keeping in mind his history of renal transplant on immunosuppressive 2-patient did have CT abdominal pelvis did not show any acute intra-abdominal pathology right-sided kidney stones but no obstruction 3-urine is growing Enterococcus faecalis that is penicillin sensitive patient fever responded to Zosyn source of fever looks like pyelonephritis, I will switch antibiotic to Unasyn and monitor clinical course closely Dictation was produced using [employer] dictation software. please excuse any grammatical, word or spelling errors. Time with Patient: Less than 30
[2024-10-17 09:09] LABS: Basophils # (A) 0.02 X 10*3/uL (0.00-0.10); Basophils % (A) 0.6 %; Eosinophils # (A) 0.34 X 10*3/uL (0.04-0.35); Eosinophils % (A) 10.3 %; HCT 32.3 % (39.6-50.0); HGB 10.2 g/dL (13.0-17.0); Lymphocytes # (A) 0.65 X 10*3/uL (0.90-5.00); Lymphocytes % (A) 19.6 %; MCH 25.6 pg (27.0-32.0); MCHC 31.6 g/dL (32.0-37.0); MCV 81.2 FL (80.0-97.0); Mean Platelet Volume 9.5 FL (9.5-12.2); Monocytes # (A) 0.32 X 10*3/uL (0.20-1.00); Monocytes % (A) 9.7 %; NRBC Per 100 WBC 0 X 10*3/uL (0.00-0.01); Neutrophils # (A) 1.97 X 10*3/uL (1.80-7.70); Neutrophils % (A) 59.5 %; Platelet Count 190 X 10*3/uL (140-440); RBC 3.98 X 10*6/uL (4.40-5.60); RDW 13.2 % (11.5-14.5); WBC 3.31 X 10*3/uL (4.50-10.00)
[2024-10-17 09:12] LABS: BUN/Creat Ratio 10.07 Ratio (12.00-20.00); Blood Urea Nitrogen 15.1 mg/dL (9.0-27.0); Calcium 7.9 mg/dL (8.7-10.3); Carbon Dioxide 16.3 mmol/L (21.6-31.8); Chloride 103 mmol/L (96-109); Glucose 84 mg/dL (70-110); Potassium 4.6 mmol/L (3.5-5.5); Sodium 131 mmol/L (135-145)
[2024-10-17] MEDS: SODIUM CHLORIDE 0.9% 500 ML 500 ML IV ONE (12:59)
[2024-10-17] MEDS: guaiFENesin 600 MG TABLET.ER PO SCH (12:59)
--- NOTE | 2024-10-17 13:43 | P.PN ---
Subjective Progress Note Date: 10/17/24 Principal diagnosis: Reason for follow-up is fever/pneumonia/UTI Patient is a 78-year-old -[place] male with a past medical history significant for hypertension reflux CVA TIA prostate disorder presenting to the hospital for evaluation of weakness loss of appetite, patient did have a fever positive UA CT of the chest interstitial airspace opacities in the left lower lo be. On today's evaluation that is 10/17/2024,the patient did have a low-grade fever of 99.9 F this morning at 7 AM patient is mention feeling slightly better, he is breathing comfortably denies any chest pain he did have some cough minimal sputum no further nausea vomiting abdominal pain or diarrhea. Patient white count is 3.31 creatinine is 1.5 stool is showing Nirmala Objective - Vital Signs Vital signs: Vital Signs Temp 99.9 F H 10/17/24 07:16 Pulse 86 10/17/24 07:16 Resp 17 10/17/24 07:16 BP 121/53 10/17/24 07:16 Pulse Ox 91 L 10/17/24 07:16 FiO2 Intake & Output 10/16/24 10/17/24 10/17/24 18:59 06:59 18:59 Intake Total 1080 Output Total 600 500 Balance 480 -500 Intake: Oral 1080 Output: Urine 600 500 Other: Voiding Method Urinal Urinal # Bowel Movements 2 - Exam GENERAL DESCRIPTION: An elderly male lying in bed in no distress RESPIRATORY SYSTEM: Unlabored breathing , decreased breath sounds at bases HEART: S1 S2 regular rate and rhythm , ABDOMEN: Soft , no tenderness EXTREMITIES: No edema feet - Labs CBC & Chem 7: 10/17/24 04:42 10/17/24 04:42 Labs: Abnormal Lab Results - Last 24 Hours (Table) 10/17/24 10/17/24 Range/Units 04:42 04:42 WBC 3.31 L (4.50-10.00) X 10*3/uL RBC 3.98 L (4.40-5.60) X 10*6/uL Hgb 10.2 L (13.0-17.0) g/dL Hct 32.3 L (39.6-50.0) % MCH 25.6 L (27.0-32.0) pg MCHC 31.6 L (32.0-37.0) g/dL Lymphocytes # 0.65 L (0.90-5.00) X 10*3/uL Sodium 131 L (135-145) mmol/L Carbon Dioxide 16.3 L (21.6-31.8) mmol/L Est GFR (CKD-EPI) 47 L (>=60) BUN/Creatinine Ratio 10.07 L (12.00-20.00) Ratio Calcium 7.9 L (8.7-10.3) mg/dL Microbiology - Last 24 Hours (Table) 10/14/24 23:50 Stool Culture - Preliminary Stool Nirmala albicans 10/13/24 17:43 Blood Culture - Preliminary Blood Assessment and Plan (1) Immunocompromised state Current Visit: Yes Status: Acute Code(s): D84.9 - IMMUNODEFICIENCY, UNSPECIFIED SNOMED Code(s): 201115754 (2) Pneumonia Current Visit: Yes Status: Acute Code(s): J18.9 - PNEUMONIA, UNSPECIFIED ORGANISM SNOMED Code(s): 502222297 (3) UTI (urinary tract infection) Current Visit: Yes Status: Acute Code(s): N39.0 - URINARY TRACT INFECTION, SITE NOT SPECIFIED SNOMED Code(s): 62468184 Plan: 1patient presented to hospital with symptoms of weakness and decreased appetite as well as diarrhea and this patient noticed to be febrile with temperature of 103 F however the patient did have a normal white count patient did have significantly positive UA however denies significant urinary symptom did not have significant respiratory symptom however abnormalities noticed on the chest x-ray as well as a CT of the chest with a question of community-acquired versus atypical pathogen keeping in mind his history of renal transplant on immunosuppressive 2-patient did have CT abdominal pelvis did not show any acute intra-abdominal pathology right-sided kidney stones but no obstruction 3-urine is growing Enterococcus faecalis that is penicillin sensitive patient clinically behaving as pyelonephritis and antibiotic has been switched over to Unasyn to continue his stool culture growing Nirmala which is more likely colonization of the GI tract and no need for antifungal at this point Dictation was produced using [employer] dictation software. please excuse any grammatical, word or spelling errors. Time with Patient: Less than 30
--- NOTE | 2024-10-17 14:35 | P.PN ---
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 Patient states that over the last month he has progressive weakness and loss of appetite. He also states he has had multiple episodes of fecal incontinence during the last week. He does have a similar presentation of weakness 1 year ago where he had infection. He also endorses that he vomited several times last night. He is on immune suppressants from previous liver transplant 20 years ago. Currently he endorses fever, weakness, cough, nausea, diarrhea. Cough is infrequent without sputum production. He also states he has some left-sided flank pain, particularly when moving. He denies chest pain, palpitation, shortness of radha ath, abdominal pain, dysuria. Vitals initial temperature 101.6 with Tmax 103.1. Labs performed ER are significant for WBC is WNL, sodium 129, potassium 5.0, bicarb 22, BUN 29, creatinine 1.76, glucose 80, initial troponin 0.014, CRP 19.6, procalcitonin 0.24, UA significant for trace protein, blood moderate, leukocyte esterase large, WBC > 182, respiratory panel negative. EKG done in the ER independently interpreted showed sinus rhythm, heart rate of 78, no ST segment elevation or depression seen, no T-wave inversions seen. Chest x-ray done independently interpreted in the ER showed cardiomegaly and possible mild pulmonary vascular congestion versus atypical infectious etiology CT chest done independently interpreted showed interstitial and airway opacities most pronounced in left lower lobe with associated tree-in-bud nodularity, likely infectious etiology. Solid 2.0 cm region nodularity in left lower lobe is technically indeterminate. 10/15/2024 Patient seen and examined at bedside. Overnight patient did have fever with Tmax 102.6. Vomiting at beside, zofran given. Hgb 9.9 decreasing, repeat CBC. Sodium improving 132, BUN 19.7. US KUB with thickening of bladder, enlarged pr ostate, no obstruction noted. 10/16/2024 Patient seen and examined at bedside. CT abdomen interpreted as no acute abdominal or pelvic process noted. Will discontinue Zosyn and begin Unasyn. Today's labs WBC 3.3, hemoglobin 9.8. Sodium 130, bicarb 15.4, gap 12.6, creatinine 1.7. Urine culture with Enterococcus faecalis, stool with Nirmala. 10/17/2024 Patient seen and examined at bedside. He had low-grade fever of 99.9 F this morning at 7 AM . Continuing IV Unasyn. patient is mention feeling slightly better, he is breathing comfortably denies any chest pain he did have some cough minimal sputum. He does endorse loose stool, but no further nausea or vomiting. He also continues to have bilateral back pain when moving and coughing. Mucinex was added and pulmonology was consulted. Today's labs WBC 3.31, hemoglobin 10.2, platelets 190, sodium 131, bicarb 16.3. REVIEW OF SYSTEMS: Pertinent positives and negatives noted in HPI. PHYSICAL EXAMINATION: Vitals reviewed GENERAL: No acute distress. Well developed, well nourished. HEENT: Pupils are round and equally reacting to light. EOMI. No scleral icterus. Normocephalic, atraumatic. No pharyngeal erythema. No thyromegaly. CARDIOVASCULAR: S1 and S2 present. No murmurs, rubs, or gallops. PULMONARY: Chest is clear to auscultation, no wheezing, rhonchi, or crackles. ABDOMEN: Soft, left and right flank/back tenderness, nondistended, normoactive bowel sounds. No palpable organomegaly. MUSCULOSKELETAL: No apparent joint swelling and deformities. EXTREMITIES: No apparent cyanosis, clubbing, or pedal edema. NEUROLOGICAL: The patient is alert and oriented x3, Gross neurological examination did not reveal any focal deficits. SKIN: No apparent rashes. 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 #Weakness #Diarrhea - Pending blood culture, stool with Nirmala - C. difficile negative - Discontinue Zosyn 3.375 g, discontinue ceftriaxone and azithromycin Begin Unasyn 3 g every 8 hour - Continue IV fluids PT OT evaluation ID following # Acute kidney injury, non-oliguric due to dehydration #UTI #Bilateral flank pain Initial BUN 29, creatinine 1.76 - monitor urine output - continue IV fluids - UA significant for elevated leukocyte esterase - Urine cultures Enterococcus faecalis - US KUB with thickening of bladder, enlarged prostate, no obstruction noted. Antibiotics as above - hold JD inhibitor and avoid nephrotoxic medications (NSAIDs, contrast, SGLT2, diuretics) #Pneumonia #Left lower lobe nodularity Initial CT interstitial and airway opacities most pronounced in left lower lobe with associated tree-in-bud nodularity with Solid 2.0 cm region nodularity in left lower lobe. Procalcitonin and viral respiratory panel negative Antibiotics as above ID following Pulmonology consulted Will need follow-up with pulmonology outpatient for repeat CT chest #Vomiting, resolved -given zofran - CT abdomen with no acute abdominal or pelvic process #Hyponatremia Initial sodium 129 => 132 => 130 => 131 Continue IV fluids #Bicytopenia in the setting of immunosuppressive medication Monitor CBC Chronic Medical Conditions #History of liver transplant Resume home immunosuppressive #A-fib - Resume home Eliquis, Metoprolol #Hyperlidemia - Resume home medication #BPH - Resume home Tamsulosin F: IV Normal saline 75 mL/hr E: Replete as needed N: Soft diet DVT ppx: Subq Lovenox 40 meq daily Code status: Full code Anticipated discharge place: Home Anticipated discharge time: 1-2 days Dictation was produced using [employer] dictation software. Please excuse any grammatical, word or spelling errors. Objective - Vital Signs Vital signs: Vital Signs Temp 98.2 F 10/17/24 01:45 Pulse 79 10/17/24 01:45 Resp 16 10/17/24 01:45 BP 105/54 10/17/24 01:45 Pulse Ox 95 10/17/24 01:45 FiO2 Intake & Output 10/16/24 10/17/24 10/17/24 18:59 06:59 18:59 Intake Total 1080 Output Total 600 500 Balance 480 -500 Intake: Oral 1080 Output: Urine 600 500 Other: Voiding Method Urinal Urinal # Bowel Movements 2 - Labs CBC & Chem 7: 10/17/24 04:42 10/17/24 04:42 Labs: Abnormal Lab Results - Last 24 Hours (Table) 10/16/24 Range/Units 05:31 Sodium 130 L (135-145) mmol/L Carbon Dioxide 15.4 L (21.6-31.8) mmol/L Anion Gap 12.60 H (4.00-12.00) mmol/L Creatinine 1.7 H (0.6-1.5) mg/dL Est GFR (CKD-EPI) 40 L (>=60) BUN/Creatinine Ratio 9.06 L (12.00-20.00) Ratio Calcium 7.6 L (8.7-10.3) mg/dL Microbiology - Last 24 Hours (Table) 10/14/24 23:50 Stool Culture - Preliminary Stool Nirmala albicans 10/13/24 17:43 Blood Culture - Preliminary Blood
--- NOTE | 2024-10-17 20:48 | P.CNPUL ---
History of Present Illness Consult date: 10/17/24 Reason for consult: abnormal CXR/CT History of present illness: A 78-year-old male patient with known history of liver transplant for cryptogenic liver cirrhosis. This was done [facility] approximate 20 years ago and the patient has been maintained on Prograf on outpatient basis. He also has history of BPH, nephrolithiasis, hypertension, and previous history of CVA. He came in with flank pain and he was having persistent fever. UA was notable to be abnormal consistent with urinary tract infection. Subsequent urine culture came back positive for Enterococcus. The patient was started on IV Unasyn. Stool for C. difficile has been negative. His pain is still present although it is subsiding. Unable to take a deep breath because of his bilateral flank pain. White cell count is at 3.3 with a hemoglobin 10.2 and a platelet count of 190. The patient has a component of an anion gap metabolic acidosis with a serum bicarb of 16, sodium levels at 131, BUN is 15 with a creatinine of 1.5. Procalcitonin level is at 0.09. He does have also a component of chronic kidney disease, stage III chronic kidney failure. As part of his workup, a CAT scan of the chest was done that showed minimal and limited haziness in the lung bases bilaterally in addition to another 2 cm nodular density in the left lower lobe that needs to be further followed up on outpatient basis. As for the CAT scan of the abdomen that was done on 10/15/2024 revealed no acute abdominal or pelvic processes, nonobstructive calculus involving the right kidney along with multiple large bilateral renal cysts and colonic diverticulosis without diverti culitis and the patient is status postcholecystectomy. He was also noted to the left hemidiaphragm is slightly elevated and the patient has some patchy atelectatic changes/scarring in the lung bases. Patient is currently on room air oxygen. Review of Systems Constitutional: Reports fatigue, Reports fever Eyes: denies as per HPI, denies blurred vision, denies bulging eye, denies decreased vision, denies diplopia, denies discharge, denies dry eye, denies irritation, denies itching, denies pain, denies photophobia, denies loss of peripheral vision, denies loss of vision, denies tunnel vision/blind spots Ears: deny: decreased hearing, ear discharge, earache, tinnitus Ears, nose, mouth and throat: Reports as per HPI Breasts: absent: as per HPI, gynecomastia Cardiovascular: Reports as per HPI Respiratory: Reports as per HPI Gastrointestinal: Reports as per HPI Genitourinary: Reports as per HPI (Flank pain) Musculoskeletal: Reports as per HPI Musculoskeletal: absent: ankle pain, ankle stiffness, ankle swelling, as per HPI, elbow pain, elbow stiffness, elbow swelling, foot pain, foot stiffness, foot swelling, hand pain, hand stiffness, hand swelling, hip pain, hip stiffness, hip swelling, knee pain, knee stiffness, knee swelling, shoulder pain, shoulder stiffness, shoulder swelling, wrist pain, wrist stiffness, wrist swelling Integumentary: Reports as per HPI Neurological: Reports as per HPI Psychiatric: Reports as per HPI Endocrine: Reports as per HPI Hematologic/Lymphatic: Reports as per HPI Allergic/Immunologic: Reports as per HPI Past Medical History Past Medical History: CVA/TIA, GERD/Reflux, Hypertension, Liver Disease, Osteoarthritis (OA), Prostate Disorder, Syncope, Thyroid Disorder Additional Past Medical History / Comment(s): Cryptogenic liver/jaundice in past with 2 past liver transplants, BPH, kidney problems prior to liver transplant-no current problems, past jaw fx with sx, February 2017-had episode with rt sided weakness and a fall-has no current effects, had episode of frequent PVC's, "thin skin" History of Any Multi-Drug Resistant Organisms: ESBL, MRSA Date of last positivie culture/infection: 09/18/23 MRSA; 08/23/22 ESBL MDRO Source:: Right Leg-MRSA; Blood-ESBL Additional Past Surgical History / Comment(s): 1999 liver transplant, 2003 liver transplant, 2007 plate in jaw from fx, bilateral cataract removal with lens, colonoscopy. Past Anesthesia/Blood Transfusion Reactions: No Reported Reaction Additional Past Anesthesia/Blood Transfusion Reaction / Comment(s): Pt received blood in past without reaction. hx jaw fx- had surgery and has a plate. a little confusion when first waking up Past Psychological History: No Psychological Hx Reported Smoking Status: Never smoker Past Alcohol Use History: None Reported Past Drug Use History: None Reported - Past Family History Father Family Medical History: Cancer Additional Family Medical History / Comment(s): Father was healthy. He around the age of 83 yrs. Mother Family Medical History: Myocardial Infarction ([place]) Additional Family Medical History / Comment(s): Mother of a [place] at the age of 83 yrs. Medications and Allergies Home Medications Medication Instructions Recorded Confirmed Type Tamsulosin [Flomax] 0.4 mg PO HS 07/20/15 10/13/24 History Metoprolol Succinate [Toprol XL] 50 mg PO DAILY 11/29/22 10/13/24 History Tacrolimus [Prograf] 0.5 mg PO BID 02/08/23 10/13/24 History Clopidogrel [Plavix] 75 mg PO DAILY 05/17/23 10/13/24 History Latanoprost Ophth [Xalatan 0.005%] 1 drop BOTH EYES HS 09/18/23 10/13/24 History mycophenolate mofetiL [Cellcept] 1,000 mg PO BID 09/18/23 10/13/24 History Pravastatin Sodium [Pravachol] 10 mg PO HS 02/21/24 10/13/24 History Allergies Allergy/AdvReac Type Severity Reaction Status Date / Time No Known Allergies Allergy Verified 10/13/24 18:35 Physical Exam Vitals: Vital Signs Temp Pulse Resp BP BP Pulse Ox 10/17/24 19:25 99.1 F 71 16 110/53 93 L 10/17/24 12:35 87/42 10/17/24 12:30 98.3 F 75 17 91/40 93 L 10/17/24 07:16 99.9 F H 86 17 121/53 91 L 10/17/24 01:45 98.2 F 79 16 105/54 95 Intake and Output 10/17/24 10/17/24 10/17/24 06:59 14:59 22:59 Output Total 500 Balance -500 Output: Urine 500 Other: Voiding Method Urinal # Voids 4 # Bowel Movements 4 The patient appeared well nourished and normally developed. Vital signs as documented. Head exam is unremarkable. No scleral icterus or corneal arcus noted. Neck is without jugular venous distension, thyromegaly, or carotid bruits. Carotid upstrokes are brisk bilaterally. Lungs reveal crackles and diminished breath sound lung base bilaterally. Minimal CVA angle tenderness on the left. Cardiac exam reveals the PMI to be normally sized and situated. Rhythm is regular. First and second heart sounds normal. No murmurs, rubs or gallops. Abdominal exam reveals normal bowel sounds, no masses, no organomegaly and no aortic enlargement. Extremities are nonedematous and both femoral and pedal pulses are normal. Examination of the skin revealed no evidence of significant rashes, suspicious appearing nevi or other concerning lesions. Neurologically, the patient is awake and alert and the patient does not have any focal neurological deficit. Cranial nerves are essentially intact. Results - Laboratory Findings CBC and BMP: 10/17/24 04:42 10/17/24 04:42 PT/INR, D-dimer PT 11.6 sec (10.0-12.5) 10/13/24 15:00 INR 1.1 (<1.2) 10/13/24 15:00 Abnormal lab findings: Abnormal Labs 10/13/24 10/13/24 10/13/24 15:00 15:00 15:00 WBC RBC Hgb Hct MCH MCHC MPV Lymphocytes # 0.9 L Lymphocytes # (Manual) APTT 21.2 L Sodium 129 L Carbon Dioxide Anion Gap BUN 29 H Creatinine 1.76 H Est GFR (CKD-EPI) BUN/Creatinine Ratio Calcium C-Reactive Protein Urine Protein Urine Blood Ur Leukocyte Esterase Urine RBC Urine WBC Urine WBC Clumps Urine Bacteria Urine Mucus 10/13/24 10/13/24 10/15/24 17:08 17:43 04:50 WBC 4.08 L RBC 3.79 L Hgb 9.9 L Hct 31.1 L MCH 26.1 L MCHC 31.8 L MPV 9.4 L Lymphocytes # Lymphocytes # (Manual) APTT Sodium Carbon Dioxide Anion Gap BUN Creatinine Est GFR (CKD-EPI) BUN/Creatinine Ratio Calcium C-Reactive Protein 19.6 H Urine Protein Trace H Urine Blood Moderate H Ur Leukocyte Esterase Large H Urine RBC 10 H Urine WBC >182 H Urine WBC Clumps Few H Urine Bacteria Rare H Urine Mucus Rare H 10/15/24 10/15/24 10/16/24 04:50 12:04 05:31 WBC RBC 4.28 L Hgb 11.4 L Hct 35.8 L MCH MCHC MPV Lymphocytes # 0.8 L Lymphocytes # (Manual) APTT Sodium 132 L 130 L Carbon Dioxide 17.5 L 15.4 L Anion Gap 12.60 H BUN Creatinine 1.7 H 1.7 H Est GFR (CKD-EPI) 40 L 40 L BUN/Creatinine Ratio 11.59 L 9.06 L Calcium 7.6 L 7.6 L C-Reactive Protein Urine Protein Urine Blood Ur Leukocyte Esterase Urine RBC Urine WBC Urine WBC Clumps Urine Bacteria Urine Mucus 10/16/24 10/17/24 10/17/24 07:30 04:42 04:42 WBC 3.3 L 3.31 L RBC 3.64 L 3.98 L Hgb 9.8 L D 10.2 L Hct 30.0 L 32.3 L MCH 25.6 L MCHC 31.6 L MPV Lymphocytes # 0.65 L Lymphocytes # (Manual) 0.50 L APTT Sodium 131 L Carbon Dioxide 16.3 L Anion Gap BUN Creatinine Est GFR (CKD-EPI) 47 L BUN/Creatinine Ratio 10.07 L Calcium 7.9 L C-Reactive Protein Urine Protein Urine Blood Ur Leukocyte Esterase Urine RBC Urine WBC Urine WBC Clumps Urine Bacteria Urine Mucus - Diagnostic Findings CT scan - chest: image reviewed Assessment and Plan Plan: Flank pain, bilateral more so on the left along with evidence of an urine tract infection with Enterococcus faecalis, currently on IV Unasyn. CAT scan of the abdomen and pelvis revealing large bilateral renal cysts, nonobstructing calculus involving the right kidney. Acute fever, improved Chronic immunosuppression with Prograf and the patient's white cell count is at 3.3 Limited atelectatic changes along with a questionable nodular density in the left lower lobe that needs to be followed up on outpatient basis. Pneumonia is highly doubtful that the patient is currently on room air oxygen. Procalcitonin level is not elevated. Cryptogenic liver cirrhosis status post liver transplantation, maintained on Prograf and CellCept. Diverticulosis without diverticulitis Previous cholecystectomy Hypertension BPH Previous history of CVA Chronic kidney disease stage III Large bilateral renal cysts Hyperlipidemia Plan Agree on the current management Presentation is most consistent with a complicated UTI in a immunosuppressed patient has been taking Prograf and CellCept Pain control with morphine and hydrocodone Continue IV Unasyn ID is on the case Provide incentive spirometer Follow-up outpatient CAT scan in 6 months time regarding the nodular density in the left lung base
[2024-10-18 10:36] LABS: Basophils # (A) 0.01 X 10*3/uL (0.00-0.10); Basophils % (A) 0.3 %; Eosinophils # (A) 0.37 X 10*3/uL (0.04-0.35); HCT 31.1 % (39.6-50.0); HGB 9.5 g/dL (13.0-17.0); Lymphocytes % (A) 16.2 %; MCH 25.6 pg (27.0-32.0); MCHC 30.5 g/dL (32.0-37.0); MCV 83.8 FL (80.0-97.0); Mean Platelet Volume 9.5 FL (9.5-12.2); Monocytes # (A) 0.35 X 10*3/uL (0.20-1.00); Monocytes % (A) 9.5 %; NRBC Per 100 WBC 0 X 10*3/uL (0.00-0.01); Neutrophils # (A) 2.35 X 10*3/uL (1.80-7.70); Neutrophils % (A) 63.5 %; Platelet Count 207 X 10*3/uL (140-440); RBC 3.71 X 10*6/uL (4.40-5.60); RDW 13.4 % (11.5-14.5)
[2024-10-18 10:53] LABS: BUN/Creat Ratio 9.46 Ratio (12.00-20.00); Blood Urea Nitrogen 12.3 mg/dL (9.0-27.0); Calcium 7.8 mg/dL (8.7-10.3); Carbon Dioxide 17.5 mmol/L (21.6-31.8); Chloride 104 mmol/L (96-109); Glucose 83 mg/dL (70-110); Potassium 4.7 mmol/L (3.5-5.5); Sodium 132 mmol/L (135-145)
[2024-10-18] MEDS ORDERED: BENZONATATE 100 MG CAP PO PRN (12:57)
[2024-10-18 13:13] VITALS: BMI 28.0
[2024-10-18] MEDS: KETOROLAC 15 MG/ML 1 ML VIAL IVP SCH (13:15)
[2024-10-18] MEDS: DIPHENOX-ATROP 2.5-0.025 MG 1 EACH TAB PO SCH (13:15)
--- NOTE | 2024-10-18 15:38 | P.PN ---
Subjective Progress Note Date: 10/18/24 A 78-year-old male patient with known history of liver transplant for cryptogenic liver cirrhosis. This was done [facility] approximate 20 years ago and the patient has been maintained on Prograf on outpatient basis. He also has history of BPH, nephrolithiasis, hypertension, and previous history of CVA. He came in with flank pain and he was having persistent fever. UA was notable to be abnormal consistent with urinary tract infection. Subsequent urine culture came back positive for Enterococcus. The patient was started on IV Unasyn. Stool for C. difficile has been negative. His pain is still present although it is subsiding. Unable to take a deep breath because of his bilateral flank pain. White cell count is at 3.3 with a hemoglobin 10.2 and a platelet count of 190. The patient has a component of an anion gap metabolic acidosis with a serum bicarb of 16, sodium levels at 131, BUN is 15 with a creatinine of 1.5. Procalcitonin level is at 0.09. He does have also a component of chronic kidney disease, stage III chronic kidney failure. As part of his workup, a CAT scan of the chest was done that showed minimal and limited haziness in the lung bases bilaterally in addition to another 2 cm nodular density in the left lower lobe that needs to be further followed up on outpatient basis. As for the CAT scan of the abdomen that was done on 10/15/2024 revealed no acute abdominal or pelvic processes, nonobstructive calculus involving the right kidney along with multiple large bilateral renal cysts and colonic diverticulosis without diverticulitis and the patient is status postcholecystectomy. He was also noted to the left hemidiaphragm is slightly elevated and the patient has some patchy atelectatic changes/scarring in the lung bases. Patient is currently on room air oxygen. On 10/18/2024, the patient remains on IV Unasyn. No new complaints. Her white cell count at 3.7 with a hemoglobin 9.5 and a platelet count of 207. Sodium is at 132, BUN is at 12 with a creatinine of 1.3. Renal function continues to improve. Patient is being treated for a Enterococcus urinary tract infection. As mentioned earlier, suspicion for a pneumonia is extremely low and this patient. The patient is currently afebrile. Tmax is 99.9. Denies having any chest pain. No significant nausea vomiting or abdominal pain. Objective - Vital Signs Vital signs: Vital Signs Temp 100 F H 10/18/24 07:55 Pulse 82 10/18/24 07:55 Resp 18 10/18/24 07:55 BP 133/58 10/18/24 07:55 Pulse Ox 93 L 10/18/24 07:55 FiO2 Intake & Output 10/17/24 10/18/24 10/18/24 18:59 06:59 18:59 Output Total 600 Balance -600 Output: Urine 600 Other: Voiding Method Urinal # Voids 4 # Bowel Movements 4 1 - Exam The patient appeared well nourished and normally developed. Vital signs as documented. Head exam is unremarkable. No scleral icterus or corneal arcus noted. Neck is without jugular venous distension, thyromegaly, or carotid bruits. Carotid upstrokes are brisk bilaterally. Lungs reveal crackles and diminished breath sound lung base bilaterally. Minimal CVA angle tenderness on the left. Cardiac exam reveals the PMI to be normally sized and situated. Rhythm is regular. First and second heart sounds normal. No murmurs, rubs or gallops. Abdominal exam reveals normal bowel sounds, no masses, no organomegaly and no aortic enlargement. Extremities are nonedematous and both femoral and pedal pulses are normal. Examination of the skin revealed no evidence of significant rashes, suspicious appearing nevi or other concerning lesions. Neurologically, the patient is awake and alert and the patient does not have any focal neurological deficit. Cranial nerves are essentially intact. - Labs CBC & Chem 7: 10/18/24 05:30 10/18/24 05:30 Labs: Abnormal Lab Results - Last 24 Hours (Table) 10/18/24 10/18/24 Range/Units 05:30 05:30 WBC 3.70 L (4.50-10.00) X 10*3/uL RBC 3.71 L (4.40-5.60) X 10*6/uL Hgb 9.5 L (13.0-17.0) g/dL Hct 31.1 L (39.6-50.0) % MCH 25.6 L (27.0-32.0) pg MCHC 30.5 L (32.0-37.0) g/dL Lymphocytes # 0.60 L (0.90-5.00) X 10*3/uL Eosinophils # 0.37 H (0.04-0.35) X 10*3/uL Sodium 132 L (135-145) mmol/L Carbon Dioxide 17.5 L (21.6-31.8) mmol/L Est GFR (CKD-EPI) 56 L (>=60) BUN/Creatinine Ratio 9.46 L (12.00-20.00) Ratio Calcium 7.8 L (8.7-10.3) mg/dL Microbiology - Last 24 Hours (Table) 10/14/24 23:50 Stool Culture - Final Stool Nirmala albicans 10/13/24 17:43 Blood Culture - Preliminary Blood Assessment and Plan Plan: Flank pain, bilateral more so on the left along with evidence of an urine tract infection with Enterococcus faecalis, currently on IV Unasyn. CAT scan of the abdomen and pelvis revealing large bilateral renal cysts, nonobstructing calculus involving the right kidney. Acute fever, improved Chronic immunosuppression with Prograf and the patient's white cell count is at 3.3 Limited atelectatic changes along with a questionable nodular density in the left lower lobe that needs to be followed up on outpatient basis. Pneumonia is highly doubtful that the patient is currently on room air oxygen. Procalcitonin level is not elevated. Cryptogenic liver cirrhosis status post liver transplantation, maintained on Prograf and CellCept. Diverticulosis without diverticulitis Previous cholecystectomy Hypertension BPH Previous history of CVA Chronic kidney disease stage III Large bilateral renal cysts Hyperlipidemia Plan Continue same treatment Monitor fever pattern Renal function continues to improve Agree on the current management Presentation is most consistent with a complicated UTI in a immunosuppressed patient has been taking Prograf and CellCept Pain control with morphine and hydrocodone Continue IV Unasyn ID is on the case Provide incentive spirometer Follow-up outpatient CAT scan in 6 months time regarding the nodular density in the left lung base
--- NOTE | 2024-10-18 17:43 | P.PN ---
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 Patient states that over the last month he has progressive weakness and loss of appetite. He also states he has had multiple episodes of fecal incontinence during the last week. He does have a similar presentation of weakness 1 year ago where he had infection. He also endorses that he vomited several times last night. He is on immune suppressants from previous liver transplant 20 years ago. Currently he endorses fever, weakness, cough, nausea, diarrhea. Cough is infrequent without sputum production. He also states he has some left-sided flank pain, particularly when moving. He denies chest pain, palpitation, shortness of radha ath, abdominal pain, dysuria. Vitals initial temperature 101.6 with Tmax 103.1. Labs performed ER are significant for WBC is WNL, sodium 129, potassium 5.0, bicarb 22, BUN 29, creatinine 1.76, glucose 80, initial troponin 0.014, CRP 19.6, procalcitonin 0.24, UA significant for trace protein, blood moderate, leukocyte esterase large, WBC > 182, respiratory panel negative. EKG done in the ER independently interpreted showed sinus rhythm, heart rate of 78, no ST segment elevation or depression seen, no T-wave inversions seen. Chest x-ray done independently interpreted in the ER showed cardiomegaly and possible mild pulmonary vascular congestion versus atypical infectious etiology CT chest done independently interpreted showed interstitial and airway opacities most pronounced in left lower lobe with associated tree-in-bud nodularity, likely infectious etiology. Solid 2.0 cm region nodularity in left lower lobe is technically indeterminate. 10/15/2024 Patient seen and examined at bedside. Overnight patient did have fever with Tmax 102.6. Vomiting at beside, zofran given. Hgb 9.9 decreasing, repeat CBC. Sodium improving 132, BUN 19.7. US KUB with thickening of bladder, enlarged pr ostate, no obstruction noted. 10/16/2024 Patient seen and examined at bedside. CT abdomen interpreted as no acute abdominal or pelvic process noted. Will discontinue Zosyn and begin Unasyn. Today's labs WBC 3.3, hemoglobin 9.8. Sodium 130, bicarb 15.4, gap 12.6, creatinine 1.7. Urine culture with Enterococcus faecalis, stool with Nirmala. 10/17/2024 Patient seen and examined at bedside. He had low-grade fever of 99.9 F this morning at 7 AM . Continuing IV Unasyn. patient is mention feeling slightly better, he is breathing comfortably denies any chest pain he did have some cough minimal sputum. He does endorse loose stool, but no further nausea or vomiting. He also continues to have bilateral back pain when moving and coughing. Mucinex was added and pulmonology was consulted. Today's labs WBC 3.31, hemoglobin 10.2, platelets 190, sodium 131, bicarb 16.3. 10/18/2024 Patient seen and examined at bedside with family present. Had extensive conversation all bee stings are being treated infect his labs are getting better every single day where he had a with family at bedside who requested transfer to [facility] where he receives his care for immunotherapy. Request was denied by [facility]. Addressed concerns and questions at bedside about ongoing treatment plan. Patient with Tmax fever 100.3 overnight. Continuing IV Unasyn. He endorses 1-2 semiloose bowel movement today, however he is finding it difficult to quantify. Will add Toradol 15 mg IVP every 6 hour for pain management, Tessalon 100 mg 3 times daily as needed for cough and continue Lomotil 4 times daily for diarrhea. Today's labs remarkable for stable CBC, sodium 132, potassium 4.7, bicarb 17.5. REVIEW OF SYSTEMS: Pertinent positives and negatives noted in HPI. PHYSICAL EXAMINATION: Vitals reviewed GENERAL: No acute distress. Well developed, well nourished. HEENT: Pupils are round and equally reacting to light. EOMI. No scleral icterus. Normocephalic, atraumatic. No pharyngeal erythema. No thyromegaly. CARDIOVASCULAR: S1 and S2 present. No murmurs, rubs, or gallops. PULMONARY: Chest is clear to auscultation, no wheezing, rhonchi, or crackles. ABDOMEN: Soft, left and right back tenderness, nondistended, normoactive bowel sounds. No palpable organomegaly. MUSCULOSKELETAL: No apparent joint swelling and deformities. EXTREMITIES: No apparent cyanosis, clubbing, or pedal edema. NEUROLOGICAL: The patient is alert and oriented x3, Gross neurological examination did not reveal any focal deficits. SKIN: No apparent rashes. 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 #Weakness #Diarrhea - Pending blood culture, stool with Nirmala - C. difficile negative - Discontinue Zosyn 3.375 g, discontinue ceftriaxone and azithromycin Begin Unasyn 3 g every 8 hour - Continue IV fluids PT OT evaluation ID following # Acute kidney injury, non-oliguric due to dehydration, resolved #UTI Initial BUN 29, creatinine 1.76 - monitor urine output - continue IV fluids - UA significant for elevated leukocyte esterase - Urine cultures Enterococcus faecalis - US KUB with thickening of bladder, enlarged prostate, no obstruction noted. Antibiotics as above - hold JD inhibitor and avoid nephrotoxic medications (NSAIDs, contrast, SGLT2, diuretics) #Bilateral upper back pain Toradol 15 mg IVP every 6 hours #Hyponatremia Initial sodium 129 => 132 => 130 => 131 => 132 Continue IV fluids #Left lower lobe nodularity Initial CT interstitial and airway opacities most pronounced in left lower lobe with associated tree-in-bud nodularity with Solid 2.0 cm region nodularity in left lower lobe. Procalcitonin and viral respiratory panel negative Antibiotics as above ID following Pulmonology consulted Will need follow-up with pulmonology outpatient for repeat CT chest in 6 months #Vomiting, resolved -given zofran - CT abdomen with no acute abdominal or pelvic process #Bicytopenia in the setting of immunosuppressive medication Monitor CBC Chronic Medical Conditions #History of liver transplant Resume home immunosuppressive #A-fib - Resume home Eliquis, Metoprolol #Hyperlidemia - Resume home medication #BPH - Resume home Tamsulosin F: IV Normal saline 75 mL/hr E: Replete as needed N: Soft diet DVT ppx: Subq Lovenox 40 meq daily Code status: Full code Anticipated discharge place: Home Anticipated discharge time: 1-2 days Dictation was produced using [employer] software. Please excuse any grammatical, word or spelling errors. Objective - Vital Signs Vital signs: Vital Signs Temp 100 F H 10/18/24 07:55 Pulse 82 10/18/24 07:55 Resp 18 10/18/24 07:55 BP 133/58 10/18/24 07:55 Pulse Ox 93 L 10/18/24 07:55 FiO2 Intake & Output 10/17/24 10/18/24 10/18/24 18:59 06:59 18:59 Output Total 600 Balance -600 Output: Urine 600 Other: Voiding Method Urinal # Voids 4 # Bowel Movements 4 1 - Labs CBC & Chem 7: 10/18/24 05:30 10/18/24 05:30 Labs: Abnormal Lab Results - Last 24 Hours (Table) 10/17/24 10/17/24 Range/Units 04:42 04:42 WBC 3.31 L (4.50-10.00) X 10*3/uL RBC 3.98 L (4.40-5.60) X 10*6/uL Hgb 10.2 L (13.0-17.0) g/dL Hct 32.3 L (39.6-50.0) % MCH 25.6 L (27.0-32.0) pg MCHC 31.6 L (32.0-37.0) g/dL Lymphocytes # 0.65 L (0.90-5.00) X 10*3/uL Sodium 131 L (135-145) mmol/L Carbon Dioxide 16.3 L (21.6-31.8) mmol/L Est GFR (CKD-EPI) 47 L (>=60) BUN/Creatinine Ratio 10.07 L (12.00-20.00) Ratio Calcium 7.9 L (8.7-10.3) mg/dL Microbiology - Last 24 Hours (Table) 10/14/24 23:50 Stool Culture - Final Stool Nirmala albicans 10/13/24 17:43 Blood Culture - Preliminary Blood
[2024-10-19] MEDS: SODIUM CHLORIDE 0.9% 500 ML 500 ML IV ONE (00:42)
[2024-10-19 10:59] LABS: Basophils # (A) 0.03 X 10*3/uL (0.00-0.10); Basophils % (A) 0.8 %; Eosinophils # (A) 0.41 X 10*3/uL (0.04-0.35); Eosinophils % (A) 10.5 %; HCT 34.6 % (39.6-50.0); HGB 10.5 g/dL (13.0-17.0); Lymphocytes # (A) 0.52 X 10*3/uL (0.90-5.00); Lymphocytes % (A) 13.3 %; MCH 25.4 pg (27.0-32.0); MCHC 30.3 g/dL (32.0-37.0); MCV 83.8 FL (80.0-97.0); Mean Platelet Volume 8.8 FL (9.5-12.2); Monocytes # (A) 0.29 X 10*3/uL (0.20-1.00); Monocytes % (A) 7.4 %; NRBC Per 100 WBC 0 X 10*3/uL (0.00-0.01); Neutrophils # (A) 2.63 X 10*3/uL (1.80-7.70); Platelet Count 217 X 10*3/uL (140-440); RBC 4.13 X 10*6/uL (4.40-5.60); RDW 13.5 % (11.5-14.5); WBC 3.92 X 10*3/uL (4.50-10.00)
[2024-10-19 12:31] LABS: ALT 12 U/L (10-49); AST 24 U/L (14-35); Albumin 2.8 g/dL (3.8-4.9); Albumin/Globulin Ratio 1.33 Ratio (1.60-3.17); Alkaline Phosphatase 69 U/L (41-126); BUN/Creat Ratio 10.71 Ratio (12.00-20.00); Calcium 8.3 mg/dL (8.7-10.3); Carbon Dioxide 14.7 mmol/L (21.6-31.8); Chloride 104 mmol/L (96-109); Globulin 2.1 g/dL (1.6-3.3); Glucose 85 mg/dL (70-110); Potassium 4.9 mmol/L (3.5-5.5); Sodium 131 mmol/L (135-145); Total Bilirubin <0.2 mg/dL (0.3-1.2); Total Protein 4.9 g/dL (6.2-8.2)
--- NOTE | 2024-10-19 14:29 | P.PN ---
Subjective Progress Note Date: 10/18/24 Principal diagnosis: Reason for follow-up is fever/pneumonia/UTI Patient is a 78-year-old -[place]in[place] male with a past medical history significant for hypertension reflux CVA TIA prostate disorder presenting to the hospital for evaluation of weakness loss of appetite, patient did have a fever positive UA CT of the chest interstitial airspace opacities in the left lower lo be. On today's evaluation that is 10/18/2024, the patient did have improvement in his fever pattern did have low-grade fever 100 Fahrenheit this morning, the patient is on room air and breathing comfortably, the Pt denies having any chest pain or cough, the patient denies having any abdominal pain no vomiting or any diarrhea has been reported by the nursing staff. Patient white count is 3.70 creatinine is 1.3 Objective - Vital Signs Vital signs: Vital Signs Temp 100 F H 10/18/24 07:55 Pulse 82 10/18/24 07:55 Resp 18 10/18/24 07:55 BP 133/58 10/18/24 07:55 Pulse Ox 93 L 10/18/24 07:55 FiO2 Intake & Output 10/17/24 10/18/24 10/18/24 18:59 06:59 18:59 Output Total 600 Balance -600 Output: Urine 600 Other: Voiding Method Urinal # Voids 4 # Bowel Movements 4 1 - Exam GENERAL DESCRIPTION: An elderly male lying in bed in no distress RESPIRATORY SYSTEM: Unlabored breathing , decreased breath sounds at bases HEART: S1 S2 regular rate and rhythm , ABDOMEN: Soft , no tenderness EXTREMITIES: No edema feet - Labs CBC & Chem 7: 10/19/24 04:53 10/19/24 05:03 Labs: Abnormal Lab Results - Last 24 Hours (Table) 10/18/24 10/18/24 Range/Units 05:30 05:30 WBC 3.70 L (4.50-10.00) X 10*3/uL RBC 3.71 L (4.40-5.60) X 10*6/uL Hgb 9.5 L (13.0-17.0) g/dL Hct 31.1 L (39.6-50.0) % MCH 25.6 L (27.0-32.0) pg MCHC 30.5 L (32.0-37.0) g/dL Lymphocytes # 0.60 L (0.90-5.00) X 10*3/uL Eosinophils # 0.37 H (0.04-0.35) X 10*3/uL Sodium 132 L (135-145) mmol/L Carbon Dioxide 17.5 L (21.6-31.8) mmol/L Est GFR (CKD-EPI) 56 L (>=60) BUN/Creatinine Ratio 9.46 L (12.00-20.00) Ratio Calcium 7.8 L (8.7-10.3) mg/dL Microbiology - Last 24 Hours (Table) 10/14/24 23:50 Stool Culture - Final Stool Nirmala albicans 10/13/24 17:43 Blood Culture - Preliminary Blood Assessment and Plan (1) Immunocompromised state Current Visit: Yes Status: Acute Code(s): D84.9 - IMMUNODEFICIENCY, UNSPECIFIED SNOMED Code(s): 658367263 (2) Pneumonia Current Visit: Yes Status: Acute Code(s): J18.9 - PNEUMONIA, UNSPECIFIED ORGANISM SNOMED Code(s): 441648580 (3) UTI (urinary tract infection) Current Visit: Yes Status: Acute Code(s): N39.0 - URINARY TRACT INFECTION, SITE NOT SPECIFIED SNOMED Code(s): 08526487 Plan: 1patient presented to hospital with symptoms of weakness and decreased appetite as well as diarrhea and this patient noticed to be febrile with temperature of 103 F however the patient did have a normal white count patient did have significantly positive UA however denies significant urinary symptom did not have significant respiratory symptom however abnormalities noticed on the chest x-ray as well as a CT of the chest with a question of community-acquired versus atypical pathogen keeping in mind his history of renal transplant on immunosuppressive 2-patient did have CT abdominal pelvis did not show any acute intra-abdominal pathology right-sided kidney stones but no obstruction 3-urine is growing Enterococcus faecalis that is penicillin sensitive for the patient is covered with Unasyn and did have improvement in his fever pattern care has been discussed in detail with the daughter and the grandson on the ph one multiple questions were answered Dictation was produced using [employer] software. please excuse any grammatical, word or spelling errors. Time with Patient: Less than 30
--- NOTE | 2024-10-19 14:30 | P.PN ---
Subjective Progress Note Date: 10/19/24 Principal diagnosis: Reason for follow-up is fever/pneumonia/UTI Patient is a 78-year-old -[place] male with a past medical history significant for hypertension reflux CVA TIA prostate disorder presenting to the hospital for evaluation of weakness loss of appetite, patient did have a fever positive UA CT of the chest interstitial airspace opacities in the left lower lo be. On today's evaluation that is 10/19/2024, patient did have resolution of his fever patient is afebrile this morning patient is breathing comfortably room air denies any chest pain has been complaining of nausea and vomiting due to episode of vomiting today but no abdominal pain and no diarrhea has been reported. Patient white count is 3.92, creatinine is 1.4 Objective - Vital Signs Vital signs: Vital Signs Temp 99.2 F 10/19/24 07:27 Pulse 91 10/19/24 07:27 Resp 15 10/19/24 07:27 BP 142/55 10/19/24 07:27 Pulse Ox 97 10/19/24 07:27 FiO2 Intake & Output 10/18/24 10/19/24 10/19/24 18:59 06:59 18:59 Intake Total 1080 1540 Output Total 500 500 Balance 580 1040 Weight 86.183 kg Intake: Intake, IV Titration 1000 Amount Ampicillin-Sulbactam 3 gm 100 In Sodium Chloride 0.9% 100 ml @ 200 mls/hr IVPB Q8HR [facility] Rx#:[id number] Sodium Chloride 0.9% 1, 900 000 ml @ 75 mls/hr IV . [id number] [facility] Rx#:[id number] Oral 1080 540 Output: Urine 500 500 Other: Voiding Method Urinal Urinal # Voids 2 # Bowel Movements 2 4 1 - Exam GENERAL DESCRIPTION: An elderly male lying in bed in no distress RESPIRATORY SYSTEM: Unlabored breathing , decreased breath sounds at bases HEART: S1 S2 regular rate and rhythm , ABDOMEN: Soft , no tenderness EXTREMITIES: No edema feet - Labs CBC & Chem 7: 10/19/24 04:53 10/19/24 05:03 Labs: Abnormal Lab Results - Last 24 Hours (Table) 10/19/24 10/19/24 Range/Units 04:53 05:03 WBC 3.92 L (4.50-10.00) X 10*3/uL RBC 4.13 L (4.40-5.60) X 10*6/uL Hgb 10.5 L (13.0-17.0) g/dL Hct 34.6 L (39.6-50.0) % MCH 25.4 L (27.0-32.0) pg MCHC 30.3 L (32.0-37.0) g/dL MPV 8.8 L (9.5-12.2) [place] Lymphocytes # 0.52 L (0.90-5.00) X 10*3/uL Eosinophils # 0.41 H (0.04-0.35) X 10*3/uL Sodium 131 L (135-145) mmol/L Carbon Dioxide 14.7 L (21.6-31.8) mmol/L Anion Gap 12.30 H (4.00-12.00) mmol/L Est GFR (CKD-EPI) 51 L (>=60) BUN/Creatinine Ratio 10.71 L (12.00-20.00) Ratio Calcium 8.3 L (8.7-10.3) mg/dL Total Bilirubin <0.2 L (0.3-1.2) mg/dL Total Protein 4.9 L (6.2-8.2) g/dL Albumin 2.8 L (3.8-4.9) g/dL Albumin/Globulin Ratio 1.33 L (1.60-3.17) Ratio Microbiology - Last 24 Hours (Table) 10/13/24 17:43 Blood Culture - Final Blood Assessment and Plan (1) Immunocompromised state Current Visit: Yes Status: Acute Code(s): D84.9 - IMMUNODEFICIENCY, UNSPECIFIED SNOMED Code(s): 626423282 (2) Pneumonia Current Visit: Yes Status: Acute Code(s): J18.9 - PNEUMONIA, UNSPECIFIED ORGANISM SNOMED Code(s): 175206233 (3) UTI (urinary tract infection) Current Visit: Yes Status: Acute Code(s): N39.0 - URINARY TRACT INFECTION, SITE NOT SPECIFIED SNOMED Code(s): 43161901 Plan: 1patient presented to hospital with symptoms of weakness and decreased appetite as well as diarrhea and this patient noticed to be febrile with temperature of 103 F however the patient did have a normal white count patient did have significantly positive UA however denies significant urinary symptom did not have significant respiratory symptom however abnormalities noticed on the chest x-ray as well as a CT of the chest with a question of community-acquired versus atypical pathogen keeping in mind his history of renal transplant on immunosuppressive 2-patient did have CT abdominal pelvis did not show any acute intra-abdominal pathology right-sided kidney stones but no obstruction 3-urine is growing Enterococcus faecalis that is penicillin sensitive for the patient is covered with Unasyn. 4patient did have resolution of his fever however started having vomiting again questionably related to the kidney stone if he did have persistent nausea vomiting may repeat his CT however we will hold on it for today this were discussed with the admitting team Dictation was produced using [employer] dictation software. please excuse any grammatical, word or spelling errors. Time with Patient: Less than 30
[2024-10-19] MEDS: METOCLOPRAMIDE 5 MG/ML 2 ML VIAL IVP STA (14:53)
--- NOTE | 2024-10-19 18:11 | P.PN ---
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 Patient states that over the last month he has progressive weakness and loss of appetite. He also states he has had multiple episodes of fecal incontinence during the last week. He does have a similar presentation of weakness 1 year ago where he had infection. He also endorses that he vomited several times last night. He is on immune suppressants from previous liver transplant 20 years ago. Currently he endorses fever, weakness, cough, nausea, diarrhea. Cough is infrequent without sputum production. He also states he has some left-sided flank pain, particularly when moving. He denies chest pain, palpitation, shortness of radha ath, abdominal pain, dysuria. Vitals initial temperature 101.6 with Tmax 103.1. Labs performed ER are significant for WBC is WNL, sodium 129, potassium 5.0, bicarb 22, BUN 29, creatinine 1.76, glucose 80, initial troponin 0.014, CRP 19.6, procalcitonin 0.24, UA significant for trace protein, blood moderate, leukocyte esterase large, WBC > 182, respiratory panel negative. EKG done in the ER independently interpreted showed sinus rhythm, heart rate of 78, no ST segment elevation or depression seen, no T-wave inversions seen. Chest x-ray done independently interpreted in the ER showed cardiomegaly and possible mild pulmonary vascular congestion versus atypical infectious etiology CT chest done independently interpreted showed interstitial and airway opacities most pronounced in left lower lobe with associated tree-in-bud nodularity, likely infectious etiology. Solid 2.0 cm region nodularity in left lower lobe is technically indeterminate. 10/15/2024 Patient seen and examined at bedside. Overnight patient did have fever with Tmax 102.6. Vomiting at beside, zofran given. Hgb 9.9 decreasing, repeat CBC. Sodium improving 132, BUN 19.7. US KUB with thickening of bladder, enlarged pr ostate, no obstruction noted. 10/16/2024 Patient seen and examined at bedside. CT abdomen interpreted as no acute abdominal or pelvic process noted. Will discontinue Zosyn and begin Unasyn. Today's labs WBC 3.3, hemoglobin 9.8. Sodium 130, bicarb 15.4, gap 12.6, creatinine 1.7. Urine culture with Enterococcus faecalis, stool with Nirmala. 10/17/2024 Patient seen and examined at bedside. He had low-grade fever of 99.9 F this morning at 7 AM . Continuing IV Unasyn. patient is mention feeling slightly better, he is breathing comfortably denies any chest pain he did have some cough minimal sputum. He does endorse loose stool, but no further nausea or vomiting. He also continues to have bilateral back pain when moving and coughing. Mucinex was added and pulmonology was consulted. Today's labs WBC 3.31, hemoglobin 10.2, platelets 190, sodium 131, bicarb 16.3. 10/18/2024 Patient seen and examined at bedside with family present. Had extensive conversation all bee stings are being treated infect his labs are getting better every single day where he had a with family at bedside who requested transfer to [facility] where he receives his care for immunotherapy. Request was denied by [facility]. Addressed concerns and questions at bedside about ongoing treatment plan. Patient with Tmax fever 100.3 overnight. Continuing IV Unasyn. He endorses 1-2 semiloose bowel movement today, however he is finding it difficult to quantify. Will add Toradol 15 mg IVP every 6 hour for pain management, Tessalon 100 mg 3 times daily as needed for cough and continue Lomotil 4 times daily for diarrhea. Today's labs remarkable for stable CBC, sodium 132, potassium 4.7, bicarb 17.5. 10/19/2024 Patient seen and examined at bedside. Afebrile overnight, last temperature 100.9. He has had multiple loose bowel movement today with 1 occurrence vomiting this morning. He has no complaints of back pain today. He continues on IV Unasyn. He continues on Lomotil 4 times daily and Toradol for pain management. Repeat C. difficile negative. Will repeat blood culture, Cryptosporidium, sputum culture. Today's labs WBC 3.92, hemoglobin 10.5, procalcitonin 0.25. REVIEW OF SYSTEMS: Pertinent positives and negatives noted in HPI. PHYSICAL EXAMINATION: Vitals reviewed GENERAL: No acute distress. Well developed, well nourished. HEENT: Pupils are round and equally reacting to light. EOMI. No scleral icterus. Normocephalic, atraumatic. No pharyngeal erythema. No thyromegaly. CARDIOVASCULAR: S1 and S2 present. No murmurs, rubs, or gallops. PULMONARY: Chest is clear to auscultation, no wheezing, rhonchi, or crackles. ABDOMEN: Soft, mild left and right back tenderness, nondistended, normoactive bowel sounds. No palpable organomegaly. MUSCULOSKELETAL: No apparent joint swelling and deformities. EXTREMITIES: No apparent cyanosis, clubbing, or pedal edema. NEUROLOGICAL: The patient is alert and oriented x3, Gross neurological examination did not reveal any focal deficits. SKIN: No apparent rashes. 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 #Weakness #Diarrhea - Pending blood culture, stool with Nirmala - C. difficile negative - Discontinue Zosyn 3.375 g, discontinue ceftriaxone and azithromycin Begin Unasyn 3 g every 8 hour - Continue IV fluids PT OT evaluation ID following # Acute kidney injury, non-oliguric due to dehydration, resolved #UTI Initial BUN 29, creatinine 1.76 - monitor urine output - continue IV fluids - UA significant for elevated leukocyte esterase - Urine cultures Enterococcus faecalis - US KUB with thickening of bladder, enlarged prostate, no obstruction noted. Antibiotics as above - hold JD inhibitor and avoid nephrotoxic medications (NSAIDs, contrast, SGLT2, diuretics) #Vomiting -given zofran and Reglan - Previous CT abdomen with no acute abdominal or pelvic process #Bilateral upper back pain Toradol 15 mg IVP every 6 hours #Hyponatremia Initial sodium 129 => 132 => 130 => 131 => 132 Continue IV fluids #Left lower lobe nodularity Initial CT interstitial and airway opacities most pronounced in left lower lobe with associated tree-in-bud nodularity with Solid 2.0 cm region nodularity in left lower lobe. Procalcitonin and viral respiratory panel negative Antibiotics as above ID following Pulmonology consulted Will need follow-up with pulmonology outpatient for repeat CT chest in 6 months #Bicytopenia in the setting of immunosuppressive medication Monitor CBC Chronic Medical Conditions #History of liver transplant Resume home immunosuppressive #A-fib - Resume home Eliquis, Metoprolol #Hyperlidemia - Resume home medication #BPH - Resume home Tamsulosin F: IV Normal saline 75 mL/hr E: Replete as needed N: Soft diet DVT ppx: Subq Lovenox 40 meq daily Code status: Full code Anticipated discharge place: Home Anticipated discharge time: 1-2 days Dictation was produced using [employer] dictation software. Please excuse any grammatical, word or spelling errors. Objective - Vital Signs Vital signs: Vital Signs Temp 98.4 F 10/19/24 01:57 Pulse 80 10/19/24 01:57 Resp 12 10/19/24 01:57 BP 116/56 10/19/24 01:57 Pulse Ox 95 10/19/24 01:57 FiO2 Intake & Output 10/18/24 10/19/24 10/19/24 18:59 06:59 18:59 Intake Total 1080 1540 Output Total 500 500 Balance 580 1040 Weight 86.183 kg Intake: Intake, IV Titration 1000 Amount Ampicillin-Sulbactam 3 gm 100 In Sodium Chloride 0.9% 100 ml @ 200 mls/hr IVPB Q8HR TAMARA Rx#:[id number] Sodium Chloride 0.9% 1, 900 000 ml @ 75 mls/hr IV . [id number] TAMARA Rx#:[id number] Oral 1080 540 Output: Urine 500 500 Other: Voiding Method Urinal Urinal # Voids 2 # Bowel Movements 2 4 - Labs CBC & Chem 7: 10/19/24 04:53 10/19/24 05:03 Labs: Abnormal Lab Results - Last 24 Hours (Table) 10/18/24 10/18/24 Range/Units 05:30 05:30 WBC 3.70 L (4.50-10.00) X 10*3/uL RBC 3.71 L (4.40-5.60) X 10*6/uL Hgb 9.5 L (13.0-17.0) g/dL Hct 31.1 L (39.6-50.0) % MCH 25.6 L (27.0-32.0) pg MCHC 30.5 L (32.0-37.0) g/dL Lymphocytes # 0.60 L (0.90-5.00) X 10*3/uL Eosinophils # 0.37 H (0.04-0.35) X 10*3/uL Sodium 132 L (135-145) mmol/L Carbon Dioxide 17.5 L (21.6-31.8) mmol/L Est GFR (CKD-EPI) 56 L (>=60) BUN/Creatinine Ratio 9.46 L (12.00-20.00) Ratio Calcium 7.8 L (8.7-10.3) mg/dL Microbiology - Last 24 Hours (Table) 10/14/24 23:50 Stool Culture - Final Stool Nirmala albicans
--- NOTE | 2024-10-19 18:16 | CT ---
EXAMINATION TYPE: CT brain wo con DATE OF EXAM: 10/19/2024 6:03 PM COMPARISON: Previous CT abdomen study 02/08/2023. CLINICAL INDICATION: Male, 78 years old with history of nasuea vomiting, Nausea and vomiting TECHNIQUE: Brain: Axial CT images of the brain were obtained with coronal and sagittal reformats created and rev iewed. Contrast used: None. Oral contrast used: None. CT DLP: 1064.3 mGycm, Automated exposure control for dose reduction was used. FINDINGS: Brain: No acute intracranial hemorrhage, midline shift or significant acute mass effect. Ventricles and sulc i are prominent compatible with generalized cerebral volume loss. No sizable extra-axial fluid collec tion. Redemonstration remote infarction in the left parietal region. Niño-white matter differentiatio n appears acutely preserved. Basal cisterns are patent. Patchy periventricular and subcortical white matter hypoattenuation likely reflecting chronic microvascular ischemic disease. No large scalp hemat aurelio or depressed calvarial fracture. Paranasal sinuses and mastoid air cells appear patent. Previous bilateral cataract lens extraction noted. IMPRESSION: No acute intracranial abnormality. [facility], , 10/19/2024 6:14 PM
[2024-10-20 09:19] LABS: Basophils # (A) 0.02 X 10*3/uL (0.00-0.10); Basophils % (A) 0.5 %; Eosinophils # (A) 0.48 X 10*3/uL (0.04-0.35); Eosinophils % (A) 10.8 %; HCT 31.8 % (39.6-50.0); HGB 9.6 g/dL (13.0-17.0); Lymphocytes # (A) 0.63 X 10*3/uL (0.90-5.00); Lymphocytes % (A) 14.2 %; MCH 25.5 pg (27.0-32.0); MCHC 30.2 g/dL (32.0-37.0); MCV 84.4 FL (80.0-97.0); Mean Platelet Volume 9.4 FL (9.5-12.2); Monocytes # (A) 0.41 X 10*3/uL (0.20-1.00); Monocytes % (A) 9.3 %; NRBC Per 100 WBC 0 X 10*3/uL (0.00-0.01); Neutrophils # (A) 2.86 X 10*3/uL (1.80-7.70); Neutrophils % (A) 64.5 %; Platelet Count 268 X 10*3/uL (140-440); RBC 3.77 X 10*6/uL (4.40-5.60); RDW 13.7 % (11.5-14.5); WBC 4.43 X 10*3/uL (4.50-10.00)
[2024-10-20 11:04] LABS: ALT 34 U/L (10-49); AST 108 U/L (14-35); Albumin 2.7 g/dL (3.8-4.9); Albumin/Globulin Ratio 1.42 Ratio (1.60-3.17); Alkaline Phosphatase 168 U/L (41-126); BUN/Creat Ratio 9.75 Ratio (12.00-20.00); Blood Urea Nitrogen 15.6 mg/dL (9.0-27.0); Calcium 8.1 mg/dL (8.7-10.3); Chloride 108 mmol/L (96-109); Globulin 1.9 g/dL (1.6-3.3); Glucose 96 mg/dL (70-110); Potassium 4.8 mmol/L (3.5-5.5); Sodium 133 mmol/L (135-145); Total Bilirubin 0.3 mg/dL (0.3-1.2); Total Protein 4.6 g/dL (6.2-8.2)
[2024-10-20] MEDS: FLUCONAZOLE 100 MG TAB PO ONE (15:05)
--- NOTE | 2024-10-20 20:39 | P.PN ---
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 Patient states that over the last month he has progressive weakness and loss of appetite. He also states he has had multiple episodes of fecal incontinence during the last week. He does have a similar presentation of weakness 1 year ago where he had infection. He also endorses that he vomited several times last night. He is on immune suppressants from previous liver transplant 20 years ago. Currently he endorses fever, weakness, cough, nausea, diarrhea. Cough is infrequent without sputum production. He also states he has some left-sided flank pain, particularly when moving. He denies chest pain, palpitation, shortness of breath, abdominal pain, dysuria. Vitals initial temperature 101.6 with Tmax 103.1. Labs performed ER are significant for WBC is WNL, sodium 129, potassium 5.0, bicarb 22, BUN 29, creatinine 1.76, glucose 80, initial troponin 0.014, CRP 19.6, procalcitonin 0.24, UA significant for trace protein, blood moderate, leukocyte esterase large, WBC > 182, respiratory panel negative. EKG done in the ER independently interpreted showed sinus rhythm, heart rate of 78, no ST segment elevation or depression seen, no T-wave inversions seen. Chest x-ray done independently interpreted in the ER showed cardiomegaly and possible mild pulmonary vascular congestion versus atypical infectious etiology CT chest done independently interpreted showed interstitial and airway opacities most pronounced in left lower lobe with associated tree-in-bud nodularity, likely infectious etiology. Solid 2.0 cm region nodularity in left lower lobe is technically indeterminate. 10/15/2024 Patient seen and examined at bedside. Overnight patient did have fever with Tmax 102.6. Vomiting at beside, zofran given. Hgb 9.9 decreasing, repeat CBC. Sodium improving 132, BUN 19.7. US KUB with thickening of bladder, enlarged prostate, no obstruction noted. 10/16/2024 Patient seen and examined at bedside. CT abdomen interpreted as no acute abdominal or pelvic process noted. Will discontinue Zosyn and begin Unasyn. Today's labs WBC 3.3, hemoglobin 9.8. Sodium 130, bicarb 15.4, gap 12.6, creatinine 1.7. Urine culture with Enterococcus faecalis, stool with Nirmala. 10/17/2024 Patient seen and examined at bedside. He had low-grade fever of 99.9 F this morning at 7 AM . Continuing IV Unasyn. patient is mention feeling slightly better, he is breathing comfortably denies any chest pain he did have some cough minimal sputum. He does endorse loose stool, but no further nausea or vomiting. He also continues to have bilateral back pain when moving and coughing. Mucinex was added and pulmonology was consulted. Today's labs WBC 3.31, hemoglobin 10.2, platelets 190, sodium 131, bicarb 16.3. 10/18/2024 Patient seen and examined at bedside with family present. Had extensive conversation all bee stings are being treated infect his labs are getting better every single day where he had a with family at bedside who requested transfer to [facility] where he receives his care for immunotherapy. Request was denied by [facility]. Addressed concerns and questions at bedside about ongoing treatment plan. Patient with Tmax fever 100.3 overnight. Continuing IV Unasyn. He endorses 1-2 semiloose bowel movement today, however he is finding it difficult to quantify. Will add Toradol 15 mg IVP every 6 hour for pain management, Tessalon 100 mg 3 times daily as needed for cough and continue Lomotil 4 times daily for diarrhea. Today's labs remarkable for stable CBC, sodium 132, potassium 4.7, bicarb 17.5. 10/19/2024 Patient seen and examined at bedside. Afebrile overnight, last temperature 100.9. He has had multiple loose bowel movement today with 1 occurrence vomiting this morning. He has no complaints of back pain today. He continues on IV Unasyn. He continues on Lomotil 4 times daily and Toradol for pain management. Repeat C. difficile negative. Will repeat blood culture, Cryptosporidium, sputum culture. Today's labs WBC 3.92, hemoglobin 10.5, procalcitonin 0.25. 10/20/2024 Patient is seen in follow-up today awaiting transfer to [facility] in [place] for [facility] for GI evaluation. Patient continues to have multiple episodes of loose diarrhea and continues with nausea. Patient is maintained on antibiotics and multiple culture showing Nirmala albicans. Patient was given a dose of Diflucan today. Infectious diseases following. Will await a bed at [facility] and contact transfer team on update if a bed is available. REVIEW OF SYSTEMS: Pertinent positives and negatives noted in HPI. PHYSICAL EXAMINATION: Vitals reviewed GENERAL: No acute distress. Well developed, well nourished. HEENT: Pupils are round and equally reacting to light. EOMI. No scleral icterus. Normocephalic, atraumatic. No pharyngeal erythema. No thyromegaly. CARDIOVASCULAR: S1 and S2 present. No murmurs, rubs, or gallops. PULMONARY: Chest is clear to auscultation, no wheezing, rhonchi, or crackles. ABDOMEN: Soft, mild left and right back tenderness, nondistended, normoactive bowel sounds. No palpable organomegaly. MUSCULOSKELETAL: No apparent joint swelling and deformities. EXTREMITIES: No apparent cyanosis, clubbing, or pedal edema. NEUROLOGICAL: The patient is alert and oriented x3, Gross neurological examination did not reveal any focal deficits. SKIN: No apparent rashes. 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 Currently awaiting a bed at [facility] in [place] for GI evaluation as we have no GI services here available. #Weakness #Diarrhea - Pending blood culture, stool with Nirmala - C. difficile negative - Discontinue Zosyn 3.375 g, discontinue ceftriaxone and azithromycin Begin Unasyn 3 g every 8 hour, infectious diseases following - Continue IV fluids PT OT evaluation # Acute kidney injury, non-oliguric due to dehydration, resolved #UTI Initial BUN 29, creatinine 1.76 - monitor urine output - continue IV fluids - UA significant for elevated leukocyte esterase - Urine cultures Enterococcus faecalis - US KUB with thickening of bladder, enlarged prostate, no obstruction noted. Antibiotics as above - hold JD inhibitor and avoid nephrotoxic medications (NSAIDs, contrast, SGLT2, diuretics) #Vomiting -Continue zofran and Reglan - Previous CT abdomen with no acute abdominal or pelvic process #Bilateral upper back pain Toradol 15 mg IVP every 6 hours #Hyponatremia Initial sodium 129 => 132 => 130 => 131 => 132 Continue IV fluids #Left lower lobe nodularity Initial CT interstitial and airway opacities most pronounced in left lower lobe with associated tree-in-bud nodularity with Solid 2.0 cm region nodularity in left lower lobe. Procalcitonin and viral respiratory panel negative Antibiotics as above ID following Pulmonology consulted Will need follow-up with pulmonology outpatient for repeat CT chest in 6 months #Bicytopenia in the setting of immunosuppressive medication Monitor CBC Chronic Medical Conditions #History of liver transplant Resume home immunosuppressive #A-fib - Resume home Eliquis, Metoprolol #Hyperlidemia - Resume home medication #BPH - Resume home Tamsulosin F: IV Normal saline 75 mL/hr E: Replete as needed N: Soft diet DVT ppx: Subq Lovenox 40 meq daily Code status: Full code Anticipated discharge place: Being transferred for GI services at [facility] Anticipated discharge time: 1-2 days Dictation was produced using [employer] dictation software. Please excuse any grammatical, word or spelling errors. The impression and plan of care has been dictated by Rosalva Hidalgo, Nurse Practitioner as directed. Dr. Edy MD I have performed a history and examination and MDM of this patient, discussed the same with the dictator, and agree with the dictator's assessment and plan as written ,documented as a scribe. Based on total visit time, I have performed more than 50% of the visit. Objective - Vital Signs Vital signs: Vital Signs Temp 98.5 F 10/20/24 02:00 Pulse 67 10/20/24 02:00 Resp 12 10/20/24 02:00 BP 118/62 10/20/24 02:00 Pulse Ox 96 10/20/24 02:00 FiO2 Intake & Output 10/19/24 10/20/24 10/20/24 18:59 06:59 18:59 Intake Total 950 400 Output Total 200 Balance 950 200 Intake: Intake, IV Titration 950 Amount Ampicillin-Sulbactam 3 gm 200 In Sodium Chloride 0.9% 100 ml @ 200 mls/hr IVPB Q8HR [facility]ARA Rx#:[id number] Sodium Chloride 0.9% 1, 750 000 ml @ 75 mls/hr IV . [id number] TAMARA Rx#:[id number] Oral 400 Output: Urine 200 Other: Voiding Method Incontinent Incontinent # Voids 4 # Bowel Movements 1 - Labs CBC & Chem 7: 10/20/24 02:56 10/20/24 02:56 Labs: Abnormal Lab Results - Last 24 Hours (Table) 10/19/24 10/19/24 10/19/24 Range/Units 04:53 05:03 15:04 WBC 3.92 L (4.50-10.00) X 10*3/uL RBC 4.13 L (4.40-5.60) X 10*6/uL Hgb 10.5 L (13.0-17.0) g/dL Hct 34.6 L (39.6-50.0) % MCH 25.4 L (27.0-32.0) pg MCHC 30.3 L (32.0-37.0) g/dL MPV 8.8 L (9.5-12.2) FL Lymphocytes # 0.52 L (0.90-5.00) X 10*3/uL Eosinophils # 0.41 H (0.04-0.35) X 10*3/uL Sodium 131 L (135-145) mmol/L Carbon Dioxide 14.7 L (21.6-31.8) mmol/L Anion Gap 12.30 H (4.00-12.00) mmol/L Est GFR (CKD-EPI) 51 L (>=60) BUN/Creatinine Ratio 10.71 L (12.00-20.00) Ratio Calcium 8.3 L (8.7-10.3) mg/dL Total Bilirubin <0.2 L (0.3-1.2) mg/dL C-Reactive Protein 17.70 H 23.9 H (0.00-0.80) mg/dL Total Protein 4.9 L (6.2-8.2) g/dL Albumin 2.8 L (3.8-4.9) g/dL Albumin/Globulin Ratio 1.33 L (1.60-3.17) Ratio Microbiology - Last 24 Hours (Table) 10/18/24 23:00 Gram Stain - Preliminary Sputum 10/13/24 17:43 Blood Culture - Final Blood
--- NOTE | 2024-10-21 08:13 | P.PN ---
Subjective Progress Note Date: 10/20/24 Principal diagnosis: Reason for follow-up is fever/pneumonia/UTI Patient is a 78-year-old -Japanese male with a past medical history significant for hypertension reflux CVA TIA prostate disorder presenting to the hospital for evaluation of weakness loss of appetite, patient did have a fever positive UA CT of the chest interstitial airspace opacities in the left lower lo be. On today's evaluation that is 10/20/2024, Patient is afebrile patient is currently on room air and denies having any shortness of breath, the patient denies any chest pain or any worsening cough, the patient did not have any further vomiting did not have any abdominal pain still having some diarrhea. Patient white count is 4.43 creatinine is 1.6 stool for C. difficile negative repeat cultures are pending Objective - Vital Signs Vital signs: Vital Signs Temp 98.2 F 10/20/24 07:27 Pulse 64 10/20/24 07:27 Resp 15 10/20/24 07:27 BP 125/54 10/20/24 07:27 Pulse Ox 96 10/20/24 07:27 FiO2 Intake & Output 10/19/24 10/20/24 10/20/24 18:59 06:59 18:59 Intake Total 950 400 Output Total 200 Balance 950 200 Intake: Intake, IV Titration 950 Amount Ampicillin-Sulbactam 3 gm 200 In Sodium Chloride 0.9% 100 ml @ 200 mls/hr IVPB Q8HR [facility] Rx#:[id number] Sodium Chloride 0.9% 1, 750 000 ml @ 75 mls/hr IV . [id number] [facility] Rx#:[id number] Oral 400 Output: Urine 200 Other: Voiding Method Incontinent Incontinent # Voids 4 # Bowel Movements 1 1 - Exam GENERAL DESCRIPTION: An elderly male lying in bed in no distress RESPIRATORY SYSTEM: Unlabored breathing , decreased breath sounds at bases HEART: S1 S2 regular rate and rhythm , ABDOMEN: Soft , no tenderness EXTREMITIES: No edema feet - Labs CBC & Chem 7: 10/20/24 02:56 10/20/24 02:56 Labs: Abnormal Lab Results - Last 24 Hours (Table) 10/19/24 10/19/24 10/19/24 Range/Units 04:53 05:03 15:04 WBC 3.92 L (4.50-10.00) X 10*3/uL RBC 4.13 L (4.40-5.60) X 10*6/uL Hgb 10.5 L (13.0-17.0) g/dL Hct 34.6 L (39.6-50.0) % MCH 25.4 L (27.0-32.0) pg MCHC 30.3 L (32.0-37.0) g/dL MPV 8.8 L (9.5-12.2) FL Lymphocytes # 0.52 L (0.90-5.00) X 10*3/uL Eosinophils # 0.41 H (0.04-0.35) X 10*3/uL Sodium 131 L (135-145) mmol/L Carbon Dioxide 14.7 L (21.6-31.8) mmol/L Anion Gap 12.30 H (4.00-12.00) mmol/L Est GFR (CKD-EPI) 51 L (>=60) BUN/Creatinine Ratio 10.71 L (12.00-20.00) Ratio Calcium 8.3 L (8.7-10.3) mg/dL Total Bilirubin <0.2 L (0.3-1.2) mg/dL C-Reactive Protein 17.70 H 23.9 H (0.00-0.80) mg/dL Total Protein 4.9 L (6.2-8.2) g/dL Albumin 2.8 L (3.8-4.9) g/dL Albumin/Globulin Ratio 1.33 L (1.60-3.17) Ratio // Range/Units 02:56 WBC 4.43 L (4.50-10.00) X 10*3/uL RBC 3.77 L (4.40-5.60) X 10*6/uL Hgb 9.6 L (13.0-17.0) g/dL Hct 31.8 L (39.6-50.0) % MCH 25.5 L (27.0-32.0) pg MCHC 30.2 L (32.0-37.0) g/dL MPV 9.4 L (9.5-12.2) FL Lymphocytes # 0.63 L (0.90-5.00) X 10*3/uL Eosinophils # 0.48 H (0.04-0.35) X 10*3/uL Sodium (135-145) mmol/L Carbon Dioxide (21.6-31.8) mmol/L Anion Gap (4.00-12.00) mmol/L Est GFR (CKD-EPI) (>=60) BUN/Creatinine Ratio (12.00-20.00) Ratio Calcium (8.7-10.3) mg/dL Total Bilirubin (0.3-1.2) mg/dL C-Reactive Protein (0.00-0.80) mg/dL Total Protein (6.2-8.2) g/dL Albumin (3.8-4.9) g/dL Albumin/Globulin Ratio (1.60-3.17) Ratio Microbiology - Last 24 Hours (Table) 10/18/24 23:00 Gram Stain - Preliminary Sputum 10/13/24 17:43 Blood Culture - Final Blood Assessment and Plan (1) Immunocompromised state Current Visit: Yes Status: Acute Code(s): D84.9 - IMMUNODEFICIENCY, UNSPECIFIED SNOMED Code(s): 862681429 (2) Pneumonia Current Visit: Yes Status: Acute Code(s): J18.9 - PNEUMONIA, UNSPECIFIED ORGANISM SNOMED Code(s): 378819759 (3) UTI (urinary tract infection) Current Visit: Yes Status: Acute Code(s): N39.0 - URINARY TRACT INFECTION, SITE NOT SPECIFIED SNOMED Code(s): 30727672 Plan: 1patient presented to hospital with symptoms of weakness and decreased appetite as well as diarrhea and this patient noticed to be febrile with temperature of 103 F however the patient did have a normal white count patient did have significantly positive UA however denies significant urinary symptom did not have significant respiratory symptom however abnormalities noticed on the chest x-ray as well as a CT of the chest with a question of community-acquired versus atypical pathogen keeping in mind his history of renal transplant on immunosuppressive 2-patient did have CT abdominal pelvis did not show any acute intra-abdominal pathology right-sided kidney stones but no obstruction 3-urine is growing Enterococcus faecalis that is penicillin sensitive for the patient is covered with Unasyn. 4patient remains to be febrile repeat stool for C. difficile negative still waiting on stool for cryptococcal antigen for now continue with Unasyn and monitor clinical course closely Dictation was produced using dragon dictation software. please excuse any grammatical, word or spelling errors. Time with Patient: Less than 30
[2024-10-21 10:41] LABS: Basophils % (A) 1 %; Eosinophils # (A) 0.6 k/uL (0-0.7); Eosinophils % (A) 13 %; HCT 30.9 % (39.0-53.0); HGB 9.6 gm/dL (13.0-17.5); Hypochromasia Marked; Lymphocytes # (A) 0.6 k/uL (1.0-4.8); Lymphocytes % (A) 14 %; MCH 27.2 pg (25.0-35.0); MCV 87.7 fL (80.0-100.0); Mean Platelet Volume 7.4; Monocytes # (A) 0.2 k/uL (0-1.0); Monocytes % (A) 5 %; Neutrophils # (A) 2.8 k/uL (1.3-7.7); Neutrophils % (A) 64 %; Platelet Count 317 k/uL (150-450); RBC 3.52 m/uL (4.30-5.90); RDW 13.9 % (11.5-15.5); WBC 4.4 k/uL (3.8-10.6)
[2024-10-21 10:52] LABS: ALT 26 U/L (4-49); AST 40 U/L (17-59); African American GFR (CKD) 56 (>60 ml/min/1.73 sqM); Albumin 2.3 g/dL (3.5-5.0); Alkaline Phosphatase 137 U/L (38-126); Anion Gap 8 mmol/L; Blood Urea Nitrogen 16 mg/dL (9-20); Calcium 8.4 mg/dL (8.4-10.2); Carbon Dioxide 11 mmol/L (22-30); Chloride 113 mmol/L (98-107); Globulin 2.4 g/dL; Glucose 95 mg/dL (74-99); Non-African American GFR(CKD) 48 (>60 ml/min/1.73 sqM); Potassium 4.5 mmol/L (3.5-5.1); Sodium 132 mmol/L (137-145); Total Bilirubin 0.5 mg/dL (0.2-1.3); Total Protein 4.7 g/dL (6.3-8.2)
[2024-10-21] MEDS: guaiFENesin-Coden 100-10MG/5ML 10 ML CUP PO PRN (14:43)
[2024-10-21 14:57] LABS: Cryptosporidium Antigen Negative (Negative)
--- NOTE | 2024-10-21 17:44 | P.PN ---
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 Patient states that over the last month he has progressive weakness and loss of appetite. He also states he has had multiple episodes of fecal incontinence during the last week. He does have a similar presentation of weakness 1 year ago where he had infection. He also endorses that he vomited several times last night. He is on immune suppressants from previous liver transplant 20 years ago. Currently he endorses fever, weakness, cough, nausea, diarrhea. Cough is infrequent without sputum production. He also states he has some left-sided flank pain, particularly when moving. He denies chest pain, palpitation, shortness of radha ath, abdominal pain, dysuria. Vitals initial temperature 101.6 with Tmax 103.1. Labs performed ER are significant for WBC is WNL, sodium 129, potassium 5.0, bicarb 22, BUN 29, creatinine 1.76, glucose 80, initial troponin 0.014, CRP 19.6, procalcitonin 0.24, UA significant for trace protein, blood moderate, leukocyte esterase large, WBC > 182, respiratory panel negative. EKG done in the ER independently interpreted showed sinus rhythm, heart rate of 78, no ST segment elevation or depression seen, no T-wave inversions seen. Chest x-ray done independently interpreted in the ER showed cardiomegaly and possible mild pulmonary vascular congestion versus atypical infectious etiology CT chest done independently interpreted showed interstitial and airway opacities most pronounced in left lower lobe with associated tree-in-bud nodularity, likely infectious etiology. Solid 2.0 cm region nodularity in left lower lobe is technically indeterminate. 10/15/2024 Patient seen and examined at bedside. Overnight patient did have fever with Tmax 102.6. Vomiting at beside, zofran given. Hgb 9.9 decreasing, repeat CBC. Sodium improving 132, BUN 19.7. US KUB with thickening of bladder, enlarged pr ostate, no obstruction noted. 10/16/2024 Patient seen and examined at bedside. CT abdomen interpreted as no acute abdominal or pelvic process noted. Will discontinue Zosyn and begin Unasyn. Today's labs WBC 3.3, hemoglobin 9.8. Sodium 130, bicarb 15.4, gap 12.6, creatinine 1.7. Urine culture with Enterococcus faecalis, stool with Nirmala. 10/17/2024 Patient seen and examined at bedside. He had low-grade fever of 99.9 F this morning at 7 AM . Continuing IV Unasyn. patient is mention feeling slightly better, he is breathing comfortably denies any chest pain he did have some cough minimal sputum. He does endorse loose stool, but no further nausea or vomiting. He also continues to have bilateral back pain when moving and coughing. Mucinex was added and pulmonology was consulted. Today's labs WBC 3.31, hemoglobin 10.2, platelets 190, sodium 131, bicarb 16.3. 10/18/2024 Patient seen and examined at bedside with family present. Had extensive conversation all bee stings are being treated infect his labs are getting better every single day where he had a with family at bedside who requested transfer to [facility] where he receives his care for immunotherapy. Request was denied by [facility]. Addressed concerns and questions at bedside about ongoing treatment plan. Patient with Tmax fever 100.3 overnight. Continuing IV Unasyn. He endorses 1-2 semiloose bowel movement today, however he is finding it difficult to quantify. Will add Toradol 15 mg IVP every 6 hour for pain management, Tessalon 100 mg 3 times daily as needed for cough and continue Lomotil 4 times daily for diarrhea. Today's labs remarkable for stable CBC, sodium 132, potassium 4.7, bicarb 17.5. 10/19/2024 Patient seen and examined at bedside. Afebrile overnight, last temperature 100.9. He has had multiple loose bowel movement today with 1 occurrence vomiting this morning. He has no complaints of back pain today. He continues on IV Unasyn. He continues on Lomotil 4 times daily and Toradol for pain management. Repeat C. difficile negative. Will repeat blood culture, Cryptosporidium, sputum culture. Today's labs WBC 3.92, hemoglobin 10.5, procalcitonin 0.25. 10/20/2024 Patient is seen in follow-up today awaiting transfer to [facility] in [facility] for GI evaluation. Patient continues to have multiple episodes of loose diarrhea and continues with nausea. Patient is maintained on antibiotics and multiple culture showing Nirmala albicans. Patient was given a dose of Diflucan today. Infectious diseases following. Will await a bed at [facility] and contact transfer team on update if a bed is available. 10/21/2024 Patient is seen and examined at bedside today. He did have 2 loose bowel movements this morning. He states his back pain is improved. He continues to wait for transfer for GI evaluation at [facility]. He continues on Unasyn for positive sputum and stool culture, and coverage for UTI. He is being followed by ID. Awaiting bed at [facility]. Today's labs significant for WBC 4.4, sodium 132, creatinine 1.38, ALP 137. REVIEW OF SYSTEMS: Pertinent positives and negatives noted in HPI. PHYSICAL EXAMINATION: Vitals reviewed GENERAL: No acute distress. Well developed, well nourished. HEENT: Pupils are round and equally reacting to light. EOMI. No scleral icterus. Normocephalic, atraumatic. No pharyngeal erythema. No thyromegaly. CARDIOVASCULAR: S1 and S2 present. No murmurs, rubs, or gallops. PULMONARY: Chest is clear to auscultation, no wheezing, rhonchi, or crackles. ABDOMEN: Soft, nontender, nondistended, normoactive bowel sounds. No palpable organomegaly. MUSCULOSKELETAL: No apparent joint swelling and deformities. EXTREMITIES: No apparent cyanosis, clubbing, or pedal edema. NEUROLOGICAL: The patient is alert and oriented x3, Gross neurological examina tion did not reveal any focal deficits. SKIN: No apparent rashes. 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 #Weakness #Diarrhea - Pending blood culture, stool with Nirmala - C. difficile negative - Discontinue Zosyn 3.375 g, discontinue ceftriaxone and azithromycin Begin Unasyn 3 g every 8 hour - Continue IV fluids PT OT evaluation # Acute kidney injury, non-oliguric due to dehydration, resolved #UTI Initial BUN 29, creatinine 1.76 - monitor urine output - continue IV fluids - UA significant for elevated leukocyte esterase - Urine cultures Enterococcus faecalis - US KUB with thickening of bladder, enlarged prostate, no obstruction noted. Antibiotics as above - hold JD inhibitor and avoid nephrotoxic medications (NSAIDs, contrast, SGLT2, diuretics) #Vomiting -given zofran and Reglan - Previous CT abdomen with no acute abdominal or pelvic process #Bilateral upper back pain Toradol 15 mg IVP every 6 hours #Hyponatremia Initial sodium 129 => 132 => 130 => 131 => 132 Continue IV fluids #Left lower lobe nodularity Initial CT interstitial and airway opacities most pronounced in left lower lobe with associated tree-in-bud nodularity with Solid 2.0 cm region nodularity in left lower lobe. Procalcitonin and viral respiratory panel negative Antibiotics as above ID following Pulmonology consulted Will need follow-up with pulmonology outpatient for repeat CT chest in 6 months #Bicytopenia in the setting of immunosuppressive medication #History of liver transplant Monitor CBC Chronic Medical Conditions #History of liver transplant Resume home immunosuppressive #A-fib - Resume home Eliquis, Metoprolol #Hyperlidemia - Resume home medication #BPH - Resume home Tamsulosin F: IV Normal saline 75 mL/hr E: Replete as needed N: Soft diet DVT ppx: Subq Lovenox 40 meq daily Code status: Full code Anticipated discharge place: Transfer to [facility] Anticipated discharge time: Tomorrow Dictation was produced using [employer] dictation software. Please excuse any grammatical, word or spelling errors. Attestation I have seen and examined this patient with my resident , discussed the same with the resident/SORAYA, and agree with the dictator's assessment and plan as written Dr. Yuniel callahan Objective - Vital Signs Vital signs: Vital Signs Temp 98.4 F 10/21/24 12:04 Pulse 73 10/21/24 12:04 Resp 18 10/21/24 12:04 BP 131/58 10/21/24 12:04 Pulse Ox 97 10/21/24 12:04 FiO2 Intake & Output 10/20/24 10/21/24 10/21/24 18:59 06:59 18:59 Intake Total 950 540 Output Total 200 Balance 950 340 Weight 86.183 kg Intake: Intake, IV Titration 950 Amount Ampicillin-Sulbactam 3 gm 200 In Sodium Chloride 0.9% 100 ml @ 200 mls/hr IVPB Q8HR [facility] Rx#:[id number] Sodium Chloride 0.9% 1, 750 000 ml @ 75 mls/hr IV . [id number] [facility] Rx#:[id number] Oral 540 Output: Urine 200 Other: Voiding Method Incontinent Incontinent Incontinent # Voids 1 # Bowel Movements 1 1 - Labs CBC & Chem 7: 10/21/24 10:17 10/21/24 10:17 Labs: Abnormal Lab Results - Last 24 Hours (Table) 10/21/24 10/21/24 Range/Units 10:17 10:17 RBC 3.52 L (4.30-5.90) m/uL Hgb 9.6 L (13.0-17.5) gm/dL Hct 30.9 L (39.0-53.0) % Lymphocytes # 0.6 L (1.0-4.8) k/uL Sodium 132 L (137-145) mmol/L Chloride 113 H (98-107) mmol/L Carbon Dioxide 11 L (22-30) mmol/L Creatinine 1.38 H (0.66-1.25) mg/dL Alkaline Phosphatase 137 H (38-126) U/L Total Protein 4.7 L (6.3-8.2) g/dL Albumin 2.3 L (3.5-5.0) g/dL Microbiology - Last 24 Hours (Table) 10/14/24 23:50 Stool Culture - Final Stool Nirmala albicans 10/18/24 23:00 Gram Stain - Final Sputum Sputum Culture - Final Nirmala albicans 10/19/24 15:13 Blood Culture - Preliminary Blood
--- NOTE | 2024-10-22 07:47 | XR ---
EXAMINATION TYPE: XR chest 1V portable DATE OF EXAM: 10/22/2024 COMPARISON: 12:15 CLINICAL INDICATION: Male, 78 years old with history of shortness of breath; , TECHNIQUE: XR chest 1V portable views of the chest. FINDINGS: Diffuse bilateral airspace disease with small effusion. Could be on the basis of CHF or pneumonia. Un derlying neoplasm not excluded. Degenerative change of the spine. Heart is enlarged. No pneumothorax. Chronic rib deformities noted. IMPRESSION: 1. Diffuse bilateral airspace disease correlate for pneumonia otherwise consider CHF. [facility], , 10/22/2024 7:45 AM
[2024-10-22 11:01] LABS: Basophils # (A) 0.04 X 10*3/uL (0.00-0.10); Basophils % (A) 0.9 %; Eosinophils # (A) 0.63 X 10*3/uL (0.04-0.35); Eosinophils % (A) 13.4 %; HCT 28.2 % (39.6-50.0); HGB 8.8 g/dL (13.0-17.0); Lymphocytes # (A) 0.77 X 10*3/uL (0.90-5.00); Lymphocytes % (A) 16.4 %; MCH 25.4 pg (27.0-32.0); MCHC 31.2 g/dL (32.0-37.0); MCV 81.3 FL (80.0-97.0); Mean Platelet Volume 8.1 FL (9.5-12.2); Monocytes % (A) 10.7 %; NRBC Per 100 WBC 0 X 10*3/uL (0.00-0.01); Neutrophils # (A) 2.72 X 10*3/uL (1.80-7.70); Platelet Count 315 X 10*3/uL (140-440); RBC 3.47 X 10*6/uL (4.40-5.60); WBC 4.69 X 10*3/uL (4.50-10.00)
[2024-10-22 11:07] LABS: ALT 24 U/L (10-49); AST 30 U/L (14-35); Albumin 2.6 g/dL (3.8-4.9); Albumin/Globulin Ratio 1.44 Ratio (1.60-3.17); Alkaline Phosphatase 131 U/L (41-126); BUN/Creat Ratio 10.07 Ratio (12.00-20.00); Blood Urea Nitrogen 14.1 mg/dL (9.0-27.0); Calcium 8.1 mg/dL (8.7-10.3); Carbon Dioxide 16.1 mmol/L (21.6-31.8); Chloride 110 mmol/L (96-109); Globulin 1.8 g/dL (1.6-3.3); Glucose 79 mg/dL (70-110); Potassium 4.6 mmol/L (3.5-5.5); Sodium 134 mmol/L (135-145); Total Bilirubin <0.2 mg/dL (0.3-1.2); Total Protein 4.4 g/dL (6.2-8.2)
--- NOTE | 2024-10-22 12:47 | P.PN ---
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 Patient states that over the last month he has progressive weakness and loss of appetite. He also states he has had multiple episodes of fecal incontinence during the last week. He does have a similar presentation of weakness 1 year ago where he had infection. He also endorses that he vomited several times last night. He is on immune suppressants from previous liver transplant 20 years ago. Currently he endorses fever, weakness, cough, nausea, diarrhea. Cough is infrequent without sputum production. He also states he has some left-sided flank pain, particularly when moving. He denies chest pain, palpitation, shortness of radha ath, abdominal pain, dysuria. Vitals initial temperature 101.6 with Tmax 103.1. Labs performed ER are significant for WBC is WNL, sodium 129, potassium 5.0, bicarb 22, BUN 29, creatinine 1.76, glucose 80, initial troponin 0.014, CRP 19.6, procalcitonin 0.24, UA significant for trace protein, blood moderate, leukocyte esterase large, WBC > 182, respiratory panel negative. EKG done in the ER independently interpreted showed sinus rhythm, heart rate of 78, no ST segment elevation or depression seen, no T-wave inversions seen. Chest x-ray done independently interpreted in the ER showed cardiomegaly and possible mild pulmonary vascular congestion versus atypical infectious etiology CT chest done independently interpreted showed interstitial and airway opacities most pronounced in left lower lobe with associated tree-in-bud nodularity, likely infectious etiology. Solid 2.0 cm region nodularity in left lower lobe is technically indeterminate. 10/15/2024 Patient seen and examined at bedside. Overnight patient did have fever with Tmax 102.6. Vomiting at beside, zofran given. Hgb 9.9 decreasing, repeat CBC. Sodium improving 132, BUN 19.7. US KUB with thickening of bladder, enlarged pr ostate, no obstruction noted. 10/16/2024 Patient seen and examined at bedside. CT abdomen interpreted as no acute abdominal or pelvic process noted. Will discontinue Zosyn and begin Unasyn. Today's labs WBC 3.3, hemoglobin 9.8. Sodium 130, bicarb 15.4, gap 12.6, creatinine 1.7. Urine culture with Enterococcus faecalis, stool with Nirmala. 10/17/2024 Patient seen and examined at bedside. He had low-grade fever of 99.9 F this morning at 7 AM . Continuing IV Unasyn. patient is mention feeling slightly better, he is breathing comfortably denies any chest pain he did have some cough minimal sputum. He does endorse loose stool, but no further nausea or vomiting. He also continues to have bilateral back pain when moving and coughing. Mucinex was added and pulmonology was consulted. Today's labs WBC 3.31, hemoglobin 10.2, platelets 190, sodium 131, bicarb 16.3. 10/18/2024 Patient seen and examined at bedside with family present. Had extensive conversation all bee stings are being treated infect his labs are getting better every single day where he had a with family at bedside who requested transfer to [facility] where he receives his care for immunotherapy. Request was denied by [facility]. Addressed concerns and questions at bedside about ongoing treatment plan. Patient with Tmax fever 100.3 overnight. Continuing IV Unasyn. He endorses 1-2 semiloose bowel movement today, however he is finding it difficult to quantify. Will add Toradol 15 mg IVP every 6 hour for pain management, Tessalon 100 mg 3 times daily as needed for cough and continue Lomotil 4 times daily for diarrhea. Today's labs remarkable for stable CBC, sodium 132, potassium 4.7, bicarb 17.5. 10/19/2024 Patient seen and examined at bedside. Afebrile overnight, last temperature 100.9. He has had multiple loose bowel movement today with 1 occurrence vomiting this morning. He has no complaints of back pain today. He continues on IV Unasyn. He continues on Lomotil 4 times daily and Toradol for pain management. Repeat C. difficile negative. Will repeat blood culture, Cryptosporidium, sputum culture. Today's labs WBC 3.92, hemoglobin 10.5, procalcitonin 0.25. 10/20/2024 Patient is seen in follow-up today awaiting transfer to [facility] in [facility] for GI evaluation. Patient continues to have multiple episodes of loose diarrhea and continues with nausea. Patient is maintained on antibiotics and multiple culture showing Nirmala albicans. Patient was given a dose of Diflucan today. Infectious diseases following. Will await a bed at [facility] and contact transfer team on update if a bed is available. 10/21/2024 Patient is seen and examined at bedside today. He did have 2 loose bowel movements this morning. He states his back pain is improved. He continues to wait for transfer for GI evaluation at [facility]. He continues on Unasyn for positive sputum and stool culture, and coverage for UTI. He is being followed by ID. Awaiting bed at [facility]. Today's labs significant for WBC 4.4, sodium 132, creatinine 1.38, ALP 137. 10/22/2024 Patient seen and examined at bedside. Patient had several episodes of vomiting today and continues to endorse diarrhea he will be started on Questran to be taken between medication. He is awaiting transfer to [facility]. Today's labs WBC 4.69, hemoglobin 9.2 sodium 134, potassium 4.6, bicarb 16.1 REVIEW OF SYSTEMS: Pertinent positives and negatives noted in HPI. PHYSICAL EXAMINATION: Vitals reviewed GENERAL: No acute distress. Well developed, well nourished. HEENT: Pupils are round and equally reacting to light. EOMI. No scleral icterus. Normocephalic, atraumatic. No pharyngeal erythema. No thyromegaly. CARDIOVASCULAR: S1 and S2 present. No murmurs, rubs, or gallops. PULMONARY: Chest is clear to auscultation, no wheezing, rhonchi. Mild bibasilar crackling. ABDOMEN: Soft, nontender, nondistended, normoactive bowel sounds. No palpable organomegaly. MUSCULOSKELETAL: No apparent joint swelling and deformities. EXTREMITIES: No apparent cyanosis, clubbing, or pedal edema. NEUROLOGICAL: The patient is alert and oriented x3, Gross neurological examination did not reveal any focal deficits. SKIN: No apparent rashes. 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 #Weakness #Diarrhea - Pending blood culture, stool with Nirmala - C. difficile negative - Discontinue Zosyn 3.375 g, discontinue ceftriaxone and azithromycin Begin Unasyn 3 g every 8 hour Continue Lomotil and start Questran - Continue IV fluids PT OT evaluation # Acute kidney injury, non-oliguric due to dehydration, resolved #UTI Initial BUN 29, creatinine 1.76 - monitor urine output - continue IV fluids - UA significant for elevated leukocyte esterase - Urine cultures Enterococcus faecalis - US KUB with thickening of bladder, enlarged prostate, no obstruction noted. Antibiotics as above - hold JD inhibitor and avoid nephrotoxic medications (NSAIDs, contrast, SGLT2, diuretics) #Vomiting -given zofran and Reglan - Previous CT abdomen with no acute abdominal or pelvic process #Bilateral upper back pain Toradol 15 mg IVP every 6 hours #Hyponatremia Initial sodium 129 => 132 => 130 => 131 => 132 Continue IV fluids #Left lower lobe nodularity Initial CT interstitial and airway opacities most pronounced in left lower lobe with associated tree-in-bud nodularity with Solid 2.0 cm region nodularity in left lower lobe. Procalcitonin and viral respiratory panel negative Antibiotics as above ID following Pulmonology consulted Will need follow-up with pulmonology outpatient for repeat CT chest in 6 months #Bicytopenia in the setting of immunosuppressive medication #History of liver transplant Monitor CBC Chronic Medical Conditions #History of liver transplant Resume home immunosuppressive #A-fib - Resume home Eliquis, Metoprolol #Hyperlidemia - Resume home medication #BPH - Resume home Tamsulosin F: IV Normal saline 50 mL/hr E: Replete as needed N: Soft diet DVT ppx: Subq Lovenox 40 meq daily Code status: Full code Anticipated discharge place: Transfer to [facility] Anticipated discharge time: When bed is available Dictation was produced using [employer] dictation software. Please excuse any grammatical, word or spelling errors. Attestation I have seen and examined this patient with my resident , discussed the same with the resident/SORAYA, and agree with the dictator's assessment and plan as written Dr. Yuniel callahan Objective - Vital Signs Vital signs: Vital Signs Temp 98.4 F 10/22/24 07:21 Pulse 85 10/22/24 07:21 Resp 20 10/22/24 07:21 BP 148/56 10/22/24 07:21 Pulse Ox 93 L 10/22/24 07:21 FiO2 Intake & Output 10/21/24 10/22/24 10/22/24 18:59 06:59 18:59 Intake Total 1540 Output Total 300 Balance 1240 Weight 86.183 kg Intake: Intake, IV Titration 1000 Amount Ampicillin-Sulbactam 3 gm 100 In Sodium Chloride 0.9% 100 ml @ 200 mls/hr IVPB Q8HR [facility] Rx#:[id number] Sodium Chloride 0.9% 1, 900 000 ml @ 75 mls/hr IV . [id number] [facility] Rx#:[id number] Oral 540 Output: Urine 300 Other: Voiding Method Incontinent Incontinent # Voids 1 # Bowel Movements 1 - Labs CBC & Chem 7: 10/22/24 06:25 10/22/24 06:25 Labs: Abnormal Lab Results - Last 24 Hours (Table) 10/21/24 10/21/24 Range/Units 10:17 10:17 RBC 3.52 L (4.30-5.90) m/uL Hgb 9.6 L (13.0-17.5) gm/dL Hct 30.9 L (39.0-53.0) % Lymphocytes # 0.6 L (1.0-4.8) k/uL Sodium 132 L (137-145) mmol/L Chloride 113 H (98-107) mmol/L Carbon Dioxide 11 L (22-30) mmol/L Creatinine 1.38 H (0.66-1.25) mg/dL Alkaline Phosphatase 137 H (38-126) U/L Total Protein 4.7 L (6.3-8.2) g/dL Albumin 2.3 L (3.5-5.0) g/dL Microbiology - Last 24 Hours (Table) 10/19/24 15:13 Blood Culture - Preliminary Blood 10/14/24 23:50 Stool Culture - Final Stool Nirmala albicans 10/18/24 23:00 Gram Stain - Final Sputum Sputum Culture - Final Nirmala albicans
[2024-10-22 14:23] VITALS: BP 152/63; PULSE 78; RESP 16; TEMP 98.8
--- NOTE | 2024-10-22 14:31 | P.PN ---
Subjective Progress Note Date: 10/21/24 Principal diagnosis: Reason for follow-up is fever/pneumonia/UTI Patient is a 78-year-old -[place] male with a past medical history significant for hypertension reflux CVA TIA prostate disorder presenting to the hospital for evaluation of weakness loss of appetite, patient did have a fever positive UA CT of the chest interstitial airspace opacities in the left lower lo be. On today's evaluation that is 10/21/2024, patient has been afebrile, patient is breathing comfortably and is currently on room air, patient did have some cough occasional sputum denies having any chest pain still complaining of some nausea vomiting and diarrhea but no worsening. Patient white count is 4.4 creatinine 1.38 Objective - Vital Signs Vital signs: Vital Signs Temp 98.1 F 10/21/24 07:04 Pulse 85 10/21/24 07:04 Resp 16 10/21/24 07:04 BP 135/64 10/21/24 07:04 Pulse Ox 94 L 10/21/24 07:04 FiO2 Intake & Output 10/20/24 10/21/24 10/21/24 18:59 06:59 18:59 Intake Total 950 540 Output Total 200 Balance 950 340 Intake: Intake, IV Titration 950 Amount Ampicillin-Sulbactam 3 gm 200 In Sodium Chloride 0.9% 100 ml @ 200 mls/hr IVPB Q8HR [facility] Rx#:[id number] Sodium Chloride 0.9% 1, 750 000 ml @ 75 mls/hr IV . [id number] [facility] Rx#:[id number] Oral 540 Output: Urine 200 Other: Voiding Method Incontinent Incontinent Incontinent # Voids 1 # Bowel Movements 1 1 - Exam GENERAL DESCRIPTION: An elderly male lying in bed in no distress RESPIRATORY SYSTEM: Unlabored breathing , decreased breath sounds at bases HEART: S1 S2 regular rate and rhythm , ABDOMEN: Soft , no tenderness EXTREMITIES: No edema feet - Labs CBC & Chem 7: 10/22/24 06:25 10/22/24 06:25 Labs: Abnormal Lab Results - Last 24 Hours (Table) 10/21/24 10/21/24 Range/Units 10:17 10:17 RBC 3.52 L (4.30-5.90) m/uL Hgb 9.6 L (13.0-17.5) gm/dL Hct 30.9 L (39.0-53.0) % Lymphocytes # 0.6 L (1.0-4.8) k/uL Sodium 132 L (137-145) mmol/L Chloride 113 H (98-107) mmol/L Carbon Dioxide 11 L (22-30) mmol/L Creatinine 1.38 H (0.66-1.25) mg/dL Alkaline Phosphatase 137 H (38-126) U/L Total Protein 4.7 L (6.3-8.2) g/dL Albumin 2.3 L (3.5-5.0) g/dL Microbiology - Last 24 Hours (Table) 10/14/24 23:50 Stool Culture - Final Stool Nirmala albicans 10/18/24 23:00 Gram Stain - Final Sputum Sputum Culture - Final Nirmala albicans 10/19/24 15:13 Blood Culture - Preliminary Blood Assessment and Plan (1) Immunocompromised state Current Visit: Yes Status: Acute Code(s): D84.9 - IMMUNODEFICIENCY, UNSPECIFIED SNOMED Code(s): 073102823 (2) Pneumonia Current Visit: Yes Status: Acute Code(s): J18.9 - PNEUMONIA, UNSPECIFIED ORGANISM SNOMED Code(s): 681705377 (3) UTI (urinary tract infection) Current Visit: Yes Status: Acute Code(s): N39.0 - URINARY TRACT INFECTION, SITE NOT SPECIFIED SNOMED Code(s): 74264696 Plan: 1patient presented to hospital with symptoms of weakness and decreased appetite as well as diarrhea and this patient noticed to be febrile with temperature of 103 F however the patient did have a normal white count patient did have significantly positive UA however denies significant urinary symptom did not have significant respiratory symptom however abnormalities noticed on the chest x-ray as well as a CT of the chest with a question of community-acquired versus atypical pathogen keeping in mind his history of renal transplant on immunosuppressive 2-patient did have CT abdominal pelvis did not show any acute intra-abdominal pathology right-sided kidney stones but no obstruction 3-urine is growing Enterococcus faecalis that is penicillin sensitive for the patient is covered with Unasyn. 4patient did have resolution of his fever, repeat stool for C. difficile negative still waiting on stool for cryptococcal antigen continue with current supportive treatment and monitor clinical course closely Dictation was produced using [employer] software. please excuse any grammatical, word or spelling errors. Time with Patient: Less than 30
--- NOTE | 2024-10-22 14:32 | P.PN ---
Subjective Progress Note Date: 10/22/24 Principal diagnosis: Reason for follow-up is fever/pneumonia/UTI Patient is a 78-year-old -[place] male with a past medical history significant for hypertension reflux CVA TIA prostate disorder presenting to the hospital for evaluation of weakness loss of appetite, patient did have a fever positive UA CT of the chest interstitial airspace opacities in the left lower lo be. On today's evaluation that is 10/22/2024, the patient continues to be afebrile he is breathing comfortably currently on room air patient denies having any chest pain shortness of breath patient did have a cough no decrease in intensity patient still complaining of nausea and did have ileostomy but no blood mucus in the stool. Patient white count is 4.69 creat is 1.4 The patient white count slightly up to 15.68 today creatinine 0.7 Objective - Vital Signs Vital signs: Vital Signs Temp 98.8 F 10/22/24 13:31 Pulse 78 10/22/24 13:31 Resp 16 10/22/24 13:31 BP 152/63 10/22/24 13:31 Pulse Ox 95 10/22/24 13:31 FiO2 Intake & Output 10/21/24 10/22/24 10/22/24 18:59 06:59 18:59 Intake Total 1540 Output Total 300 Balance 1240 Weight 86.183 kg Intake: Intake, IV Titration 1000 Amount Ampicillin-Sulbactam 3 gm 100 In Sodium Chloride 0.9% 100 ml @ 200 mls/hr IVPB Q8HR [facility] Rx#:[id number] Sodium Chloride 0.9% 1, 900 000 ml @ 75 mls/hr IV . [id number] [facility] Rx#:[id number] Oral 540 Output: Urine 300 Other: Voiding Method Incontinent Incontinent Incontinent # Voids 1 # Bowel Movements 1 - Exam GENERAL DESCRIPTION: An elderly male lying in bed in no distress RESPIRATORY SYSTEM: Unlabored breathing , decreased breath sounds at bases HEART: S1 S2 regular rate and rhythm , ABDOMEN: Soft , no tenderness EXTREMITIES: No edema feet - Labs CBC & Chem 7: 10/22/24 06:25 10/22/24 06:25 Labs: Abnormal Lab Results - Last 24 Hours (Table) 10/22/24 10/22/24 Range/Units 06:25 06:25 RBC 3.47 L (4.40-5.60) X 10*6/uL Hgb 8.8 L (13.0-17.0) g/dL Hct 28.2 L (39.6-50.0) % MCH 25.4 L (27.0-32.0) pg MCHC 31.2 L (32.0-37.0) g/dL MPV 8.1 L (9.5-12.2) FL Lymphocytes # 0.77 L (0.90-5.00) X 10*3/uL Eosinophils # 0.63 H (0.04-0.35) X 10*3/uL Sodium 134 L (135-145) mmol/L Chloride 110 H (96-109) mmol/L Carbon Dioxide 16.1 L (21.6-31.8) mmol/L Est GFR (CKD-EPI) 51 L (>=60) BUN/Creatinine Ratio 10.07 L (12.00-20.00) Ratio Calcium 8.1 L (8.7-10.3) mg/dL Total Bilirubin <0.2 L (0.3-1.2) mg/dL Alkaline Phosphatase 131 H (41-126) U/L Total Protein 4.4 L (6.2-8.2) g/dL Albumin 2.6 L (3.8-4.9) g/dL Albumin/Globulin Ratio 1.44 L (1.60-3.17) Ratio Microbiology - Last 24 Hours (Table) 10/19/24 15:13 Blood Culture - Preliminary Blood 10/14/24 23:50 Stool Culture - Final Stool Nirmala albicans 10/18/24 23:00 Gram Stain - Final Sputum Sputum Culture - Final Nirmala albicans Assessment and Plan (1) Immunocompromised state Current Visit: Yes Status: Acute Code(s): D84.9 - IMMUNODEFICIENCY, UNSPEC IFIED SNOMED Code(s): 391205031 (2) Pneumonia Current Visit: Yes Status: Acute Code(s): J18.9 - PNEUMONIA, UNSPECIFIED ORGANISM SNOMED Code(s): 460090818 (3) UTI (urinary tract infection) Current Visit: Yes Status: Acute Code(s): N39.0 - URINARY TRACT INFECTION, SITE NOT SPECIFIED SNOMED Code(s): 85610675 Plan: 1patient presented to hospital with symptoms of weakness and decreased appetite as well as diarrhea and this patient noticed to be febrile with temperature of 103 F however the patient did have a normal white count patient did have significantly positive UA however denies significant urinary symptom did not have significant respiratory symptom however abnormalities noticed on the chest x-ray as well as a CT of the chest with a question of community-acquired versus atypical pathogen keeping in mind his history of renal transplant on immunosuppressive 2-patient did have CT abdominal pelvis did not show any acute intra-abdominal pathology right-sided kidney stones but no obstruction 3-urine is growing Enterococcus faecalis that is penicillin sensitive for the patient is covered with Unasyn. 4patient did have resolution of his fever, repeat stool for C. difficile negat cheli, stool for cryptococcal antigen negative as well we will advise Questran 4 g twice a day to be spaced at least 3 hours apart from his medication, this was discussed with the resident physician Dictation was produced using [employer] dictation software. please excuse any grammatical, word or spelling errors. Time with Patient: Less than 30
[2024-10-22] MEDS: CHOLESTYRAMINE (WITH SUGAR) 4 GM PACKET PO SCH (16:16)
--- NOTE | 2024-10-24 17:22 | P.DS ---
Providers Date of admission: 10/13/24 17:17 Expected date of discharge: 10/22/24 Attending physician: Yuniel Everett MD Consults: 10/13/24 17:15 Consult Physician Urgent Consulting Provider: Val Pringle Consult Reason/Comments: Pneumonia, UTI Do you want consulting provider notified?: Yes 10/17/24 13:01 Consult Physician Routine Consulting Provider: David Slater Consult Reason/Comments: pna, tree bud on CT Do you want consulting provider notified?: Yes Primary care physician: Ron [place] Hospital Course: Discharge diagnoses; #Diarrhea #UTI # Acute kidney injury, non-oliguric due to dehydration, resolved #Vomiting #Bilateral upper back pain #Hyponatremia #Left lower lobe nodularity #Bicytopenia in the setting of immunosuppressive medication #History of liver transplant #A-fib #Hyperlidemia #BPH Hospital course; History of present illness; 78-year-old male with hypertension, 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 Patient states that over the last month he has progressive weakness and loss of appetite. He also states he has had multiple episodes of fecal incontinence during the last week. He does have a similar presentation of weakness 1 year ago where he had infection. He also endorses that he vomited several times last night. He is on immune suppressants from previous liver transplant 20 years ago. Currently he endorses fever, weakness, cough, nausea, diarrhea. Cough is infrequent without sputum production. He also states he has some left-sided flank pain, particularly when moving. He denies chest pain, palpitation, shortness of breath, abdominal pain, dysuria. Vitals initial temperature 101.6 with Tmax 103.1. Labs performed ER are significant for WBC is WNL, sodium 129, potassium 5.0, bicarb 22, BUN 29, creatinine 1.76, glucose 80, initial troponin 0.014, CRP 19.6, procalcitonin 0.24, UA significant for trace protein, blood moderate, leukocyte esterase large, WBC > 182, respiratory panel negative. EKG done in the ER independently interpreted showed sinus rhythm, heart rate of 78, no ST segment elevation or depression seen, no T-wave inversions seen. Chest x-ray done independently interpreted in the ER showed cardiomegaly and possible mild pulmonary vascular congestion versus atypical infectious etiology CT chest done independently interpreted showed interstitial and airway opacities most pronounced in left lower lobe with associated tree-in-bud nodularity, likely infectious etiology. Solid 2.0 cm region nodularity in left lower lobe is technically indeterminate. During hospital stay patient was treated for UTI which was culture positive for Enterococcus faecalis. He was treated with IV Unasyn. Also during stay he had persistent daily loose diarrhea with several episodes of vomiting. C. difficile was found to be negative, stool culture and sputum positive for Nirmala albicans. He was given Lomotil and cholestyramine for diarrhea and given Zofran and Reglan for his vomiting which initially improved his vomiting however later persisted. He was also found to have solid 2 cm nodularity in left lower lobe of lung. Patient was transferred in stable condition to [facility] for further evaluation by mixer wet pour of his diarrhea and vomiting in the setting of his immunosuppressive therapy for antirejection of liver transplant. He will need follow-up in 6 months for nodularity of left lower lung with pulmonology. He will need to follow-up with his PCP. REVIEW OF SYSTEMS: Pertinent positives and negatives noted in HPI. PHYSICAL EXAMINATION: Vitals reviewed GENERAL: No acute distress. Well developed, well nourished. HEENT: Pupils are round and equally reacting to light. EOMI. No scleral icterus. Normocephalic, atraumatic. No pharyngeal erythema. No thyromegaly. CARDIOVASCULAR: S1 and S2 present. No murmurs, rubs, or gallops. PULMONARY: Chest is clear to auscultation, no wheezing, rhonchi. Mild bibasilar crackling. ABDOMEN: Soft, nontender, nondistended, normoactive bowel sounds. No palpable organomegaly. MUSCULOSKELETAL: No apparent joint swelling and deformities. EXTREMITIES: No apparent cyanosis, clubbing, or pedal edema. NEUROLOGICAL: The patient is alert and oriented x3, Gross neurological examination did not reveal any focal deficits. SKIN: No apparent rashes. Dictation was produced using [employer] dictation software. please excuse any grammatical, word or spelling errors. Attestation I have seen and examined this patient with my resident , discussed the same with the resident/SORAYA, and agree with the dictator's assessment and plan as written Dr. Yuniel everett Patient Condition at Discharge: Stable Plan - Discharge Summary New Discharge Prescriptions: No Action Tamsulosin [Flomax] 0.4 mg PO HS Tacrolimus [Prograf] 0.5 mg PO BID Clopidogrel [Plavix] 75 mg PO DAILY Pravastatin Sodium [Pravachol] 10 mg PO HS Metoprolol Succinate [Toprol XL] 50 mg PO DAILY mycophenolate mofetiL [Cellcept] 1,000 mg PO BID Latanoprost Ophth [Xalatan 0.005%] 1 drop BOTH EYES HS Discharge Medication List Tamsulosin [Flomax] 0.4 mg PO HS 07/20/15 [History] Metoprolol Succinate [Toprol XL] 50 mg PO DAILY 11/29/22 [History] Tacrolimus [Prograf] 0.5 mg PO BID 02/08/23 [History] Clopidogrel [Plavix] 75 mg PO DAILY 05/17/23 [History] Latanoprost Ophth [Xalatan 0.005%] 1 drop BOTH EYES HS 09/18/23 [History] mycophenolate mofetiL [Cellcept] 1,000 mg PO BID 09/18/23 [History] Pravastatin Sodium [Pravachol] 10 mg PO HS 02/21/24 [History] Follow up Appointment(s)/Referral(s): Ron Edwards DO [Primary Care Provider] - 11/06/24 2:40 pm David Slater MD [STAFF PHYSICIAN] - 1 Week Discharge Disposition: OTHER INSTITUTION NOT DEFINED
--- NOTE | 2024-10-31 12:59 | CDI ---
Documentation Clarification Form Date: 10/31/2024 12:32:07 PM From: Iris Fountain RN, CCDS Email: [email or web address] Admit Date: 10/13/2024 05:17:00 PM Patient Name: Dom Rene Visit Number: [id number] Discharge Date: 10/22/2024 07:45:00 PM ATTENTION: The Clinical Documentation Specialists (CDI) and [facility] Coding Staff appreciate your assistance in clarifying documentation. Please respond to the clarification below the line at the bottom and electronically sign. The CDI & [facility] Coding staff will review the response and follow-up if needed. Please note: Queries are made part of the Legal Health Record. If you have any questions, please contact the author of this message via ITS. Doctor Peng Holm The patient had fever, tachycardia and a UTI. Based on this information and the findings below, is there an additional diagnosis that is clinically appropriate for this patient? 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 Patient states that over the last month he has progressive weakness and loss of appetite. Admitted with UTI. Clinical Indicators: 10/13 WBC: 4.8-3.3-4.69 10/13 Lactic acid: 1.5 10/13 Blood cultures: no growth 10/13 UCX: enterococcus faecalis 10/13-10/22 Cr: 1.76-1.7-1.3-1.6-1.4, CRP 19.6-17.70-23.9 10/13 Vital signs: Temp max 103.1, HR max 107, BP low 89/43, MAP 56 Discharge summary: "Patient was treated for UTI which was culture positive for Enterococcus faecalis. SARAI, nonoliguric d/t dehydration. Patient was transferred in stable condition to [facility] for further evaluation by client account specialist of his diarrhea and vomiting in the setting of his immunosuppressive therapy for antirejection of liver transplant." Treatment: 10/14 ID Consult: "patient noticed to be febrile with temperature of 103 F. Immunocompromised state. Pneumonia. UTI. C/W empiric Rocephin and Zithromax." Antibiotics: IV Unasyn 3gm Q8H 10/16-10/22; IV Azithromycin 500mg x1 on 10/13; Zithromax 500mg po 10/14-10/15; IV Rocephin 2gm 10/13; IV Rocephin 2gm Q24H 10/14-10/15; IV Zosyn 3.375gm Q8H 10/15-10/16 IV Bolus: 1L 0.9 NS IV bolus x1 on 10/13, 10/17 and 10/18 Is there an additional diagnosis that is clinically appropriate for this patient? [ ] Sepsis, present on admission [ ] Sepsis, developed during stay, not present on admission [ ] No additional diagnosis/not clinically significant [ ] Other, please specify [ ] Unable to determine SIRS Criteria: 2 or more of the following may indicate SIRS Temperature < 96.8F (36C) or > 101.0F (38.3C) Heart Rate > 90 bpm Respiratory Rate > 20 breaths/min or PaCO2 < 32 mmHg White Blood Cell Count > 12,000 or < 4,000 cells/mm3 or > 10% bands MTDD
--- NOTE | 2024-11-08 10:21 | CDI ---
Documentation Clarification Form Date: 10/31/2024 12:32:00 PM From: Iris Fountain RN, CCDS Email: [email or web address] Admit Date: 10/13/2024 05:17:00 PM Patient Name: Dom Rene Visit Number: [id number] Discharge Date: 10/22/2024 07:45:00 PM ATTENTION: The Clinical Documentation Specialists (CDI) and [facility] Coding Staff appreciate your assistance in clarifying documentation. Please respond to the clarification below the line at the bottom and electronically sign. The CDI & [facility] Coding staff will review the response and follow-up if needed. Please note: Queries are made part of the Legal Health Record. If you have any questions, please contact the author of this message via ITS. Doctor Yuniel Everett The patient had fever, tachycardia and a UTI. Based on this information and the findings below, is there an additional diagnosis that is clinically appropriate for this patient? 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 Patient states that over the last month he has progressive weakness and loss of appetite. Admitted with UTI. Clinical Indicators: 10/13 WBC: 4.8-3.3-4.69 10/13 Lactic acid: 1.5 10/13 Blood cultures: no growth 10/13 UCX: enterococcus faecalis 10/13-10/22 Cr: 1.76-1.7-1.3-1.6-1.4, CRP 19.6-17.70-23.9 10/13 Vital signs: Temp max 103.1, HR max 107, BP low 89/43, MAP 56 Discharge summary: "Patient was treated for UTI which was culture positive for Enterococcus faecalis. SARAI, nonoliguric d/t dehydration. Patient was transferred in stable condition to [facility] for further evaluation by weigh box tender of his diarrhea and vomiting in the setting of his immunosuppressive therapy for antirejection of liver transplant." Treatment: 10/14 ID Consult: "patient noticed to be febrile with temperature of 103 F. Immunocompromised state. Pneumonia. UTI. C/W empiric Rocephin and Zithromax." Antibiotics: IV Unasyn 3gm Q8H 10/16-12/24; IV Azithromycin 500mg x1 on 10/13; Zithromax 500mg po 10/14-10/15; IV Rocephin 2gm 10/13; IV Rocephin 2gm Q24H 10/14-10/15; IV Zosyn 3.375gm Q8H 10/15-10/16 IV Bolus: 1L 0.9 NS IV bolus x1 on 10/13, 10/17 and 10/18 Is there an additional diagnosis that is clinically appropriate for this patient? [x ] Sepsis, present on admission [ ] No additional diagnosis/not clinically significant [ ] Other, please specify [ ] Unable to determine SIRS Criteria: 2 or more of the following may indicate SIRS Temperature < 96.8F (36C) or > 101.0F (38.3C) Heart Rate > 90 bpm Respiratory Rate > 20 breaths/min or PaCO2 < 32 mmHg White Blood Cell Count > 12,000 or < 4,000 cells/mm3 or > 10% bands MTDD
== END 2024-10-22 19:45 | disposition short-term general hospital (02) | DRG 871 ==
LOC: EC 14:07 → 5NMEDONC 17:17
PROVIDERS: ADMIT Internal Medicine; ATTEND Internal Medicine
DX: A41.9 Sepsis, unspecified organism (principal); J18.9 Pneumonia, unspecified organism; N39.0 Urinary tract infection, site not specified; D84.821 Immunodeficiency due to drugs; E87.1 Hypo-osmolality and hyponatremia; N17.9 Acute kidney failure, unspecified; Z94.4 Liver transplant status; E87.20 Acidosis, unspecified; D84.9 Immunodeficiency, unspecified; B37.89 Other sites of candidiasis; D61.818 Other pancytopenia; R19.7 Diarrhea, unspecified; I13.10 Hypertensive heart and chronic kidney disease without heart failure, with stage 1 through stage 4 chronic kidney disease, or unspecified chronic kidney disease; Z11.52 Encounter for screening for COVID-19; I12.9 Hypertensive chronic kidney disease with stage 1 through stage 4 chronic kidney disease, or unspecified chronic kidney disease; N18.30 Chronic kidney disease, stage 3 unspecified; K76.9 Liver disease, unspecified; E86.0 Dehydration; B95.2 Enterococcus as the cause of diseases classified elsewhere; K74.69 Other cirrhosis of liver; F17.210 Nicotine dependence, cigarettes, uncomplicated; Z71.6 Tobacco abuse counseling; I48.91 Unspecified atrial fibrillation; N40.0 Benign prostatic hyperplasia without lower urinary tract symptoms; M54.9 Dorsalgia, unspecified; N28.1 Cyst of kidney, acquired; K57.30 Diverticulosis of large intestine without perforation or abscess without bleeding; Z86.73 Personal history of transient ischemic attack (TIA), and cerebral infarction without residual deficits; Z79.02 Long term (current) use of antithrombotics/antiplatelets; Z79.624 Long term (current) use of inhibitors of nucleotide synthesis; Z79.899 Other long term (current) drug therapy; Z82.49 Family history of ischemic heart disease and other diseases of the circulatory system; Z87.442 Personal history of urinary calculi; Z98.42 Cataract extraction status, left eye; Z98.41 Cataract extraction status, right eye
CPT/HCPCS: 36415; 70450; 71045; 71046; 71250; 74176; 76770; 80048; 80053; 80197; 81001; 83605; 83735; 83880; 84145; 84484; 85025; 85027; 85610; 85730; 86140; 86738; 87040; 87045; 87046; 87070; 87077; 87086; 87186; 87205; 87324; 87328; 87449; 87636; 93005; 96361; 96365; 96366; 96375; 99285